=== PATIENT | female | born 1990 | race African-American/Black ===

== ENCOUNTER 2017-07-15 10:37 | Inpatient (IN) | payer MEDICARE ==
[~2017-07-15] VITALS: Ht 157.5 cm; Wt 57.2 kg
[~2017-07-15 10:37] MED LIST: ABILIFY5 MG PO; AMBIEN10 MG PO; BUTRANS1 EAC1 TP; CATAPRES-TTS 31 EA TD; CEFTIN250 MG PO; DIFLUCAN200 MG PO; DOXYCYCLINE HY100 MG PO; ERYTHROMYCIN250 M1 PO; FLAGYL500 MG PO; HUMALOG100 UNIT/1 SQ; HUMALOG100 UNIT/3 SQ; HYDRALAZINE HCL25 MG PO; IMURAN50 MG PO; LABETALOL HCL100 MG PO; LANTUS 3ML100 UNITS/ SQ; LANTUS100 UNITS/ SQ; LEVAQUIN500 MG PO; LEVEMIR 3M100 UNITS/ SQ; LEVEMIR100 UNIT/1 SQ; LISINOPRIL-HCT1 EAC2 PO; LISINOPRIL10 MG PO; LISINOPRIL20 MG PO; NEURONTIN100 MG PO; NORCO 7.5-3251 EACH PO; NOVOLOG100 UNITS/ SQ; PANTOPRAZOLE SO40 MG PO; PENTASA500 MG PO; PREDNISONE10 MG PO; PROMETHAZINE HC25 M1 PO; PROTONIX20 MG; REGLAN5 MG; REMICADE100 MG/VIA; RISPERDAL1 MG PO; SEROQUEL XR400 MG PO; ULTRAM 50MG50 MG PO; WELLBUTRIN100 MG PO; XANAX0.25 MG PO; XANAX2 MG PO; Z.0.LISINOPRIL20 MG PO; Z.0.PROTONIX20 MG PO; ZOFRAN ODT4 MG PO; ZOFRAN4 MG PO; ZOLOFT50 MG PO; [UNRECOGNIZED DRUG - CODE] SQ; [UNRECOGNIZED DRUG - OTHER] PO
[2017-07-15] MEDS ORDERED: SODIUM CHLORIDE 0.9% 1000ML 1,000 ML IV STA (11:00)
[2017-07-15] MEDS ORDERED: PROMETHAZINE 12.5MG/ NACL 0.9% 12.5 MG/50 ML BAG IV ONE ×2 (11:00→17:45)
[2017-07-15] MEDS ORDERED: DIATRIZOATE MEGL/DIATRIZOA SOD 30 ML BTL PO ONE (11:28)
[2017-07-15] MEDS ORDERED: HYDROMORPHONE 1MG/1ML INJ IV STA ×2 (11:49→12:47)
[2017-07-15] MEDS ORDERED: HYDROMORPHONE 2MG/ML INJ IV ONE ×2 (12:10→17:45)
[2017-07-15 12:46] LABS: BASOPHILS % 0.2 % (0.0-1.0); EOSINOPHILS # (AUTO) 0.2 (0.0-0.4); EOSINOPHILS % 2.2 % (0.0-6.0); HEMATOCRIT 29.5 % (34.2-44.1); HEMOGLOBIN 9.2 g/dL (12.0-16.0); LYMPHOCYTES # (AUTO) 0.5 (1.0-3.2); LYMPHOCYTES % 5.2 % (18.0-39.1); MEAN CORPUSCULAR HEMOGLOBIN 27.8 pg (28-32); MEAN CORPUSCULAR HGB CONC 31.2 g/dL (31-35); MEAN CORPUSCULAR VOLUME 89.1 fL (81-99); MONOCYTES # (AUTO) 0.6 (0.2-0.8); MONOCYTES % 6.1 % (4.4-11.3); NEUTROPHILS # (AUTO) 8.8 (2.1-6.9); NEUTROPHILS % 85.4 % (38.7-80.0); PLATELET COUNT 219 x10e3/uL (140-360); RED BLOOD COUNT 3.31 x10e6/uL (3.6-5.1); RED CELL DISTRIBUTION WIDTH 16.3 % (11.7-14.4)
[2017-07-15 12:50] LABS: INR 0.85
[2017-07-15 12:51] LABS: PARTIAL THROMBOPLASTIN TIME 26.5 seconds (23.8-35.5)
[2017-07-15 13:00] LABS: ALANINE AMINOTRANSFERASE 17 IU/L (0-55); ALBUMIN 3.4 g/dL (3.5-5.0); ALBUMIN/GLOBULIN RATIO 0.8 (0.8-2.0); ALKALINE PHOSPHATASE 130 IU/L (40-150); AMYLASE 111 U/L (25-125); ANION GAP 18.6 mmol/L (8-16); BLOOD UREA NITROGEN 49 mg/dL (7-26); BUN/CREATININE RATIO 6 (6-25); CARBON DIOXIDE 28 mmol/L (22-29); CHLORIDE 96 mmol/L (98-107); CREATININE, SERUM 7.83 mg/dL (0.57-1.11); EST GLOMERULAR FILTRATION RATE 8 ML/MIN (60-); LIPASE 40 U/L (8-78); POTASSIUM 3.6 mmol/L (3.5-5.1); SODIUM 139 mmol/L (136-145)
[2017-07-15] MEDS ORDERED: PROMETHAZINE HCL (IM) 25 MG/ML VIAL IM ONE (13:00)
[2017-07-15] MEDS ORDERED: HYDROMORPHONE 2MG/ML INJ IM ONE (13:00)
[2017-07-15 13:09] LABS: GLUCOSE 53 mg/dL (74-118)
--- NOTE | 2017-07-15 14:54 | Diagnostic Imaging Report ---
PROCEDURE: CT ABDOMEN AND PELVIS WITHOUT CONTRAST TECHNIQUE: The abdomen and pelvis were scanned utilizing a multidetector helical scanner from the diaphragm to the lesser trochanter. No IV contrast was administered as per physician request. Coronal and sagittal multiplanar reformations were obtained. COMPARISON: None. INDICATIONS: NAUSEA, VOMITING, DIARRHEA FINDINGS: ABSENCE OF INTRAVENOUS CONTRAST DECREASES SENSITIVITY FOR DETECTION OF FOCAL LESIONS AND VASCULAR PATHOLOGY. Examination of the abdomen limited due to a paucity of mesenteric fat. LOWER THORAX: Normal. Partially visualized central venous catheter with the tip positioned within the right atrium. HEPATOBILIARY: No focal hepatic lesions. No biliary ductal dilatation. Cholecystectomy. SPLEEN: No splenomegaly. PANCREAS: No focal masses or ductal dilatation. ADRENALS: No adrenal nodules. 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 No hydronephrosis, stones, or solid mass lesions. PELVIC ORGANS/BLADDER: Unremarkable. PERITONEUM / RETROPERITONEUM: No free air or fluid. LYMPH NODES: No lymphadenopathy. VESSELS: Unremarkable. GI TRACT: No distention or wall thickening. Normal appendix. Moderate amount of retained feces in the transluminal evaluation of the colon. BONES AND SOFT TISSUES: Unremarkable. IMPRESSION: No acute abnormality of the abdomen and pelvis. Dictated by: Jovon Gomez M.D. on 07/15/2017 at 15:02 Electronically approved by: Jovon Gomez M.D. on 07/15/2017 at 15:02
[2017-07-15] MEDS ORDERED: DEXTROSE 50% SYRINGE 50 ML IV PRN (18:15)
[2017-07-15] MEDS ORDERED: HYDROMORPHONE 1MG/1ML INJ IV PRN (18:15)
[2017-07-15] MEDS ORDERED: CATAPRES-TTS 31 EA TD (19:00)
[2017-07-15] MEDS ORDERED: HYDROCODON-ACE1 EAC9 PO (19:00)
[2017-07-15] MEDS: PROMETHAZINE HCL (IM) 25 MG/ML VIAL IV SCH ×2 (19:55→22:20)
[2017-07-15 20:40] VITALS: BP 127/84
[2017-07-15 20:55] VITALS: BP 127/84
[2017-07-15] MEDS: INSULIN REGULAR, HUMAN 100 UNIT/1 ML 3ML VIAL SQ SCH (21:00)
[2017-07-15] MEDS: SODIUM CHLORIDE 0.9% 1000ML 1,000 ML IV SCH (21:30)
[2017-07-15] MEDS ORDERED: SODIUM CHLORIDE 0.9% 50ML 50 ML ONE (22:07)
[2017-07-15] MEDS: HYDROMORPHONE 2MG/ML INJ IV PRN (22:20)
[2017-07-16] VITALS (8 sets, daily range): BP systolic 108–150; BP diastolic 55–83
[2017-07-16] MEDS: PROMETHAZINE HCL (IM) 25 MG/ML VIAL IV SCH ×6 (00:36→18:15)
[2017-07-16] MEDS: HYDROMORPHONE 2MG/ML INJ IV PRN ×4 (02:06→17:26)
[2017-07-16] MEDS: SODIUM CHLORIDE 0.9% 1000ML 1,000 ML IV SCH ×2 (02:06→10:02)
[2017-07-16] MEDS: INSULIN REGULAR, HUMAN 100 UNIT/1 ML 3ML VIAL SQ SCH ×4 (07:30→21:00)
--- NOTE | 2017-07-16 16:53 | Consultation ---
DATE OF CONSULTATION: July 16, 2017 RENAL CONSULTATION HISTORY OF PRESENT ILLNESS: A 26-year-old female, underlying history of end-stage renal disease, scheduled for dialysis today. Underlying type 1 diabetes with end-organ damage. Underlying end-stage renal disease. Hypertension. History of Crohn's disease. Secondary hyperparathyroidism with anemia secondary to chronic kidney disease. Admitted with nausea and vomiting. Renal consulted for management of kidney failure. PHYSICAL EXAMINATION: GENERAL: She is awake, alert, lying supine. No apparent distress. VITALS: Blood pressure 130/60, pulse rate 80. HEAD AND NECK: Cornea clear. Oral mucosa dry. Neck veins flat. LUNGS: Bibasilar rales. HEART: S1/S2 audible. ABDOMEN: Otherwise soft, nontender. LOWER EXTREMITY EXAMINATION: No edema. IMPRESSION: End-stage renal disease. Stable volume status. Laboratory test shows white count is 10.2, hemoglobin 9.2. Potassium level last done was 3.6. ALLERGIES TO KETORALAC, TROMETHAMINE, METOCLOPRAMIDE, MORPHINE. CURRENT MEDICATIONS: Please see MAR for details but on promethazine p.r.n., hydromorphone. Apparently receiving normal saline, which I have stopped. Insulin has not been renewed. Underlying end-stage renal disease, multifactorial. Kidney problem. I will arrange for dialysis. Will renew erythropoietin, phosphorus binders. Fluid restriction. Potassium-restricted diet. Please see orders. Job#: [id number] EV
[2017-07-16 18:36] LABS: BILIRUBIN,URINE NEGATIVE (NEGATIVE); KETONES,URINE NEGATIVE (NEGATIVE); LEUKOCYTE ESTERASE ,URINE 1+ (NEGATIVE); NITRITE,URINE NEGATIVE (NEGATIVE); PROTEIN,URINE DIPSTICK 3+ (NEGATIVE); URINE UROBILINOGEN 0.2 mg/dL (0.2 - 1)
[2017-07-16 18:42] LABS: CLARITY,URINE CLEAR (CLEAR); COLOR,URINE YELLOW (YELLOW)
[2017-07-16 18:57] LABS: BACTERIA,URINE MANY /HPF; EPITHELIAL CELLS,URINE FEW /LPF
[2017-07-16] MEDS ORDERED: SODIUM CHLORIDE 0.9% 1000ML 1,000 ML IV PRN (20:00)
[2017-07-16] MEDS ORDERED: HEPARIN SOD (PORCINE) 1000 UNIT/ML SDV IV PRN (20:00)
[2017-07-17] VITALS: BP 125/58
[2017-07-17] MEDS ORDERED: SODIUM CHLORIDE 0.9% 50ML 50 ML ONE ×3 (00:25→03:45)
[2017-07-17] MEDS: HYDROMORPHONE 2MG/ML INJ IV PRN ×3 (00:36→08:01)
[2017-07-17] MEDS: PROMETHAZINE HCL (IM) 25 MG/ML VIAL IV SCH ×3 (03:20→10:15)
[2017-07-17] MEDS: INSULIN REGULAR, HUMAN 100 UNIT/1 ML 3ML VIAL SQ SCH ×2 (07:30→11:30)
[2017-07-17 08:00] VITALS: BP 132/87
[2017-07-17] MEDS ORDERED: MANNITOL 25% 12.5GM/50 ML VIAL IV PRN (08:15)
[2017-07-17] MEDS ORDERED: SODIUM CHLORIDE 0.9% 1000ML 2,000 ML IV PRN (08:15)
[2017-07-17] MEDS ORDERED: HEPARIN SOD (PORCINE) 1000 UNIT/ML SDV IV PRN (08:15)
[2017-07-17] MEDS ORDERED: SODIUM CHLORIDE 0.9% 250ML 500 ML IV PRN (08:15)
[2017-07-17] MEDS ORDERED: ALBUMIN HUMAN 12.5GM / 50ML IV PRN (08:15)
[2017-07-17] MEDS ORDERED: HYDRALAZINE HCL 25 MG TAB PO SCH (09:00)
[2017-07-17] MEDS ORDERED: PANTOPRAZOLE SO40 MG PO (10:50)
[2017-07-17] MEDS ORDERED: PROMETHAZINE12.5 M1 PO (10:52)
--- NOTE | 2017-07-17 13:15 | Discharge Summary ---
ADMIT DIAGNOSES 1. Intractable nausea and vomiting likely secondary to gastritis. 2. Dehydration. 3. End-stage renal disease. 4. Type 2 diabetes mellitus. 5. Coronary artery disease. DISCHARGE DIAGNOSES 1. Gastritis, resolved. 2. Dehydration, resolved. 3. Type 2 diabetes mellitus. 4. End-stage renal disease. 5. Hypertensive heart disease. 6. Crohn disease. 7. Anemia secondary to chronic kidney disease. HOSPITAL COURSE: This is a 26-year-old woman was admitted to [facility] with the diagnosis of intractable nausea and vomiting likely secondary to gastritis. Patient improved clinically with supportive care, which included intravenous fluids and promethazine. Patient was seen by her office support, namely Dr. Juan J Hsieh, because she has a history of Crohn disease. The patient was scheduled to undergo upper endoscopy, but it was canceled because she felt better and wanted to eat food. The patient also improved clinically with intravenous proton pump inhibitor. The patient's hospitalization was unremarkable. CONDITION ON DISCHARGE: Stable. DISCHARGE MEDICATIONS 1. Phenergan 12.5 mg 1 p.o. b.i.d. p.r.n. nausea and vomiting, 20 prescribed with 1 refill. 2. Protonix 40 mg q.a.m. 3. Abilify 5 mg daily. 4. Clonidine patch 0.3 mg strength once a week. 5. Hydralazine 100 mg t.i.d. 6. [place] 10 per 325 mg 1 every 6 hours p.r.n. pain. 7. Levemir insulin 25 units twice a day. 8. Humalog insulin 10 units subcutaneous t.i.d. with meals. 9. Zolpidem 10 mg at bedtime p.r.n. insomnia. FOLLOWUP INSTRUCTIONS: The patient was instructed to follow up with her primary care doctor, namely Dr. Maria Ines Westfall, who is located in [place], [place], within the next 7-10 days. CHANEL DEVINE MD Job#: [id number] RI cc:MD JUAN J TOLENTINO MD
== END 2017-07-17 12:00 | disposition home or self-care (01) | DRG 391 ==
LOC: ER 10:37 → ERHOLD 19:04 → MED/SURG2 20:07
PROC: 5A1D70Z Performance of Urinary Filtration, Intermittent, Less than 6 Hours Per Day (ICD-10-PCS; principal; 2017-07-16)
DX: K29.00 Acute gastritis without bleeding (principal); N18.6 End stage renal disease; E11.22 Type 2 diabetes mellitus with diabetic chronic kidney disease; I12.0 Hypertensive chronic kidney disease with stage 5 chronic kidney disease or end stage renal disease; N25.81 Secondary hyperparathyroidism of renal origin; K50.90 Crohn's disease, unspecified, without complications; E86.0 Dehydration; E21.3 Hyperparathyroidism, unspecified; F31.9 Bipolar disorder, unspecified; Z99.2 Dependence on renal dialysis; D72.810 Lymphocytopenia; Z79.4 Long term (current) use of insulin
CPT/HCPCS: 36415; 74176; 80053; 81001; 82150; 82948; 83690; 84702; 85025; 85610; 85730; 87086; 87340; 90962; 93005; 99284; J1644; J2550; J7030

== ENCOUNTER 2017-08-01 06:34 | Emergency (ER) | payer MEDICARE ==
[~2017-08-01] VITALS: Ht 157.5 cm; Wt 57.2 kg
[~2017-08-01 06:34] MED LIST changes: +HYDROCODON-ACE1 EAC9 PO; +PROMETHAZINE12.5 M1 PO
[2017-08-01] MEDS ORDERED: HYDROMORPHONE 2MG/ML INJ IV ONE (08:00)
[2017-08-01] MEDS ORDERED: HALOPERIDOL LACTATE 5 MG/ML VIAL IV ONE (08:00)
[2017-08-01 08:20] LABS: BASOPHILS # (AUTO) 0.1 (0.0-0.1); BASOPHILS % 0.6 % (0.0-1.0); EOSINOPHILS # (AUTO) 0.3 (0.0-0.4); EOSINOPHILS % 4.1 % (0.0-6.0); HEMATOCRIT 28.1 % (34.2-44.1); HEMOGLOBIN 8.9 g/dL (12.0-16.0); LYMPHOCYTES # (AUTO) 2.6 (1.0-3.2); LYMPHOCYTES % 31.7 % (18.0-39.1); MEAN CORPUSCULAR HEMOGLOBIN 28.6 pg (28-32); MEAN CORPUSCULAR HGB CONC 31.7 g/dL (31-35); MEAN CORPUSCULAR VOLUME 90.4 fL (81-99); MONOCYTES # (AUTO) 0.5 (0.2-0.8); NEUTROPHILS # (AUTO) 4.6 (2.1-6.9); PLATELET COUNT 264 x10e3/uL (140-360); RED BLOOD COUNT 3.11 x10e6/uL (3.6-5.1); RED CELL DISTRIBUTION WIDTH 17.2 % (11.7-14.4)
[2017-08-01 10:10] LABS: ALBUMIN 3.5 g/dL (3.5-5.0); ALBUMIN/GLOBULIN RATIO 0.9 (0.8-2.0); ANION GAP 18.7 mmol/L (8-16); CALCIUM 7.9 mg/dL (8.4-10.2); POTASSIUM 3.7 mmol/L (3.5-5.1)
--- NOTE | 2017-08-01 10:17 | Diagnostic Imaging Report ---
EXAM: CHEST SINGLE (PORTABLE) DATE: 08/01/2017 7:48 AM INDICATION: Short of breath COMPARISON: None FINDINGS: Left IJ dialysis catheter present with tip overlying right atrium. Heart not enlarged. There is no pneumothorax or focal consolidation. IMPRESSION: No acute findings. Signed by: Dr. Florin Boucher MD on 08/01/2017 10:10 AM
[2017-08-01 11:15] VITALS: BP 164/107
== END 2017-08-01 11:30 | disposition home or self-care (01) ==
LOC: ER 06:34
DX: R10.13 Epigastric pain (principal); E10.43 Type 1 diabetes mellitus with diabetic autonomic (poly)neuropathy; K31.84 Gastroparesis; Z79.4 Long term (current) use of insulin; I12.0 Hypertensive chronic kidney disease with stage 5 chronic kidney disease or end stage renal disease; N18.6 End stage renal disease
CPT/HCPCS: 36415; 71010; 80053; 82150; 82948; 83690; 83735; 84702; 85025; 99284; J1170; J1630

== ENCOUNTER 2017-09-19 07:05 | Inpatient (IN) | payer MEDICARE ==
[~2017-09-19] VITALS: Ht 157.5 cm; Wt 53.7 kg
--- OUTSIDE RECORDS SUMMARY | 2017-09-19 07:08 | XMS REPORT | Clinical Summary ---
Author Author [employer] Address Unknown Phone Unavailable Care Team Providers Care Pc Maintenance Technician Name Role Phone Asked, Pcp PCP Unavailable Allergies Active Allergy Reactions Severity Noted Date Comments Hydromorphone Other (See Comments) 05/05/2017 Extreme drug seeking behavior. Admission >20+ at multiple hospitals in area asking for drug by name. Metronidazole GI Intolerance 01/16/2016 Lisinopril Other (See Comments) 01/16/2016 Kidney shutdown Morphine GI Intolerance 01/16/2016 Metoclopramide Hcl Other (See Comments) 01/16/2016 Stroke like symptom according to pt Ketorolac Itching 01/16/2016 Tizanidine Other (See Comments) 01/16/2016 numbness Ondansetron GI Intolerance 01/16/2016 Current Medications Prescription Sig. Disp. Refills Start End Date Status Date insulin lispro (HumaLOG) Inject 10 Units under the Active 100 unit/mL injection skin 3 (three) times a day before meals. hydrALAZINE (APRESOLINE) Take 100 mg by mouth 3 04/30/20 Active 25 MG tablet (three) times a day. 17 clonIDINE (CATAPRES-TTS) Place 1 patch on the skin Active 0.3 mg/24 hr once a week. Every insulin detemir (LEVEMIR) Inject 30 Units under the Active 100 unit/mL injection skin 2 (two) times a day. INSULIN DETEMIR SUBQ Inject 20 Units under the 04/07/20 Discontin skin every 12 (twelve) 17 ued hours. labetalol (NORMODYNE) 200 Take 400 mg by mouth 02/01/20 Discontin MG tablet every 8 (eight) hours. 17 ued NIFEDIPINE ORAL Take 60 mg by mouth 2 04/07/20 Discontin (two) times a day. 17 ued Extended release sodium bicarbonate 648 MG Take 650 mg by mouth 2 02/01/20 Discontin tablet (two) times a day. 17 ued vancomycin (VANCOCIN) Infuse 1,000 mg into a 02/01/20 Discontin 1,000 mg injection venous catheter every 17 ued other day. ALPRAZolam (XANAX) 0.5 MG Take 0.5 mg by mouth 06/22/20 Discontin tablet nightly as needed for 17 ued anxiety. clonIDINE HCl (CATAPRES) Take 0.3 mg by mouth once 05/02/20 Discontin 0.3 MG tablet a week. 17 ued ARIPiprazole (ABILIFY) 5 Take 5 mg by mouth daily. 06/22/20 Discontin MG tablet 17 ued zolpidem (AMBIEN) 5 MG Take 10 mg by mouth 04/30/20 06/22/20 Discontin tablet nightly as needed for 17 17 ued sleep. promethazine (PHENERGAN) Take 25 mg by mouth every 06/22/20 Discontin 25 MG tablet 6 (six) hours as needed 17 ued for nausea or vomiting. labetalol (NORMODYNE) 300 Take 1 tablet (300 mg 90 tablet 0 02/01/20 02/14/20 Discontin MG tablet total) by mouth every 8 17 17 ued (eight) hours for 30 days. atorvastatin (LIPITOR) 40 Take 1 tablet (40 mg 30 tablet 0 02/01/20 02/14/20 Discontin MG tablet total) by mouth nightly 17 17 ued for 30 days. losartan (COZAAR) 100 MG Take 1 tablet (100 mg 30 tablet 0 02/01/20 02/14/20 Discontin tablet total) by mouth daily for 17 17 ued 30 days. aspirin 81 mg chewable Chew 1 tablet (81 mg 30 tablet 0 02/01/20 Discontin tablet total) daily for 30 days. 17 17 ued sodium bicarbonate 650 mg Take 1 tablet (650 mg 60 tablet 0 02/01/20 02/14/20 Discontin tablet total) by mouth 2 (two) 17 17 ued times a day for 30 days. insulin GLARGINE (LANTUS) Inject 20 Units under the 03/31/20 Discontin 100 unit/mL injection skin 2 (two) times a day. 17 ued (vial) labetalol (NORMODYNE) 300 Take 1 tablet (300 mg 60 tablet 0 04/07/20 05/02/20 Discontin MG tablet total) by mouth 2 (two) 17 17 ued times a day for 30 days. NIFEdipine XL (PROCARDIA Take 1 tablet (30 mg 30 tablet 0 04/07/20 05/06/20 Discontin XL) 30 MG 24 hr tablet total) by mouth daily for 17 17 ued 30 days. insulin GLARGINE (LANTUS) Inject 10 Units under the 6 mL 0 04/07/20 05/02/20 Discontin 100 unit/mL injection skin 2 (two) times a day 17 17 ued (vial) before meals for 30 days. metoclopramide (REGLAN) 5 Take 1 tablet (5 mg 30 tablet 0 04/07/20 05/02/20 Discontin MG tablet total) by mouth daily 17 17 ued before lunch for 30 days. atorvastatin (LIPITOR) 40 Take 1 tablet (40 mg 30 tablet 0 04/21/20 05/02/20 Discontin MG tablet total) by mouth nightly 17 17 ued for 30 days. B complex-vitamin C-folic Take 1 tablet by mouth 30 tablet 0 04/21/20 05/02/20 Discontin acid (FOLBEE PLUS 5 MG) 5 daily for 30 days. 17 17 ued mg tablet per tablet thiamine 50 MG tablet Take 1 tablet (50 mg 30 tablet 0 04/21/20 Discontin total) by mouth daily for 17 17 ued 30 days. insulin detemir (LEVEMIR) Inject 25 Units under the 04/30/20 05/06/20 Discontin 100 unit/mL injection skin 2 (two) times a day. 17 17 ued labetalol (NORMODYNE) 200 Take 2 tablets (400 mg 120 tablet 0 06/05/20 MG tablet total) by mouth 2 (two) 17 17 times a day for 30 days. NIFEdipine XL (PROCARDIA Take 1 tablet (60 mg 60 tablet 0 05/06/20 06/05/20 XL) 60 MG 24 hr tablet total) by mouth 2 (two) 17 17 times a day for 30 days. insulin GLARGINE (LANTUS) Inject 30 Units under the 9 mL 0 05/06/20 06/05/20 100 unit/mL injection skin daily for 30 days. 17 17 (vial) metoclopramide (REGLAN) 5 Take 1 tablet (5 mg 30 tablet 0 05/06/20 06/05/20 MG tablet total) by mouth daily for 17 17 30 days. acetaminophen-codeine Take 1 tablet by mouth 30 tablet 0 05/06/20 (TYLENOL WITH CODEINE #3) every 6 (six) hours as 17 17 300-30 mg per tablet needed for moderate pain for up to 10 days. labetalol (NORMODYNE) 200 Take 1 tablet (200 mg 180 tablet 1 06/24/20 07/24/19 MG tablet total) by mouth 2 (two) 17 18 times a day for 30 days. methylPREDNISolone follow package directions 21 tablet 0 08/26/19 (MEDROL DOSEPAK) 4 mg 18 18 tablet Active Problems Problem Noted Date Hyperglycemia 06/22/2017 High anion gap metabolic acidosis 06/22/2017 Acute headache 04/20/2017 Diabetic gastroparesis 02/23/2017 ESRD (end stage renal disease) 02/13/2017 Hyperemesis gravidarum with electrolyte imbalance 12/03/2016 Hypertensive emergency 12/02/2016 Chronic kidney disease (CKD) 12/02/2016 Hypertensive urgency 11/30/2016 Type 1 diabetes mellitus with hyperosmolarity without nonketotic 12/05/2015 hyperglycemic hyperosmolar coma Abdominal pain 03/13/2015 Diabetes mellitus with ketoacidosis 12/18/2014 Crohn disease 09/17/2014 Gastroparesis 09/17/2014 Essential hypertension 05/12/2008 Overview: Overview: ICD-10 Resolved Problems Problem Noted Date Resolved Date Generalized weakness 01/30/2017 01/31/2017 Encounters Date Type Specialty Care Team Description 08/26/2017 Emergency Emergency Medicine Debbie Lundberg DO Allergic reaction, initial encounter (Primary Dx) 06/23/2017 Procedure Pass General Surgery 06/22/2017 [facility] General Internal Medicine Itzel Appiah, Hyperglycemia (Primary - Encounter MD Dx) 06/24/2017 Marcia Westfall MD 06/15/2017 Emergency Emergency Medicine Debbie Lundberg DO Hyperglycemia (Primary Dx) 06/10/2017 Emergency Emergency Medicine Debbie Lundberg DO Gastroparesis (Primary Dx) 05/12/2017 Emergency Emergency Medicine Randell Iniguez Left lower quadrant pain MD Jazmin (Primary Dx); Contusion of back, unspecified laterality, initial encounter; Strain of neck muscle, initial encounter 05/01/2017 [facility] Internal Medicine Yesenia Rodriguez Hypertensive emergency - Encounter DO Nena (Primary Dx); 05/06/2017 Marcia Westfall ESRD (end stage renal MD Abdon disease); Intractable vomiting with nausea, unspecified vomiting type 04/20/2017 [facility] Intensive Care Airam Talbert MD Hypertensive emergency - Encounter Marcia Westfall (Primary Dx); 04/21/2017 MD [place] Hyperglycemia due to type 1 diabetes mellitus; ESRD (end stage renal disease) on dialysis; Acute nonintractable headache, unspecified headache type; Generalized abdominal pain; Hypertensive encephalopathy; Vision loss, bilateral; Acute intractable headache, unspecified headache type 04/20/2017 Procedure Pass Intensive Care 04/20/2017 Procedure Pass Intensive Care 04/20/2017 Procedure Pass Intensive Care 04/20/2017 Procedure Pass Intensive Care 03/30/2017 [facility] General Internal Medicine Andrea Peralta MD Hypertensive emergency - Encounter Marcia Westfall (Primary Dx); 04/07/2017 MD Abdon ESRD (end stage renal disease) on dialysis; Intractable vomiting with nausea, unspecified vomiting type; Generalized abdominal pain; Type 1 diabetes mellitus with diabetic autonomic neuropathy; Hypertensive urgency; Type 1 diabetes mellitus with ketoacidosis without coma 02/13/2017 [facility] Intensive Care Yesenia Rodriguez Hypertensive emergency - Encounter DO Nena (Primary Dx); 02/14/2017 Marcia Westfall Tachycardia; MD [place]don Intractable vomiting with nausea, unspecified vomiting type; Generalized abdominal pain; ESRD (end stage renal disease) on dialysis; Hypertensive urgency; Type 1 diabetes mellitus with ketoacidosis without coma 01/30/2017 [facility] Christine Guillaume Generalized weakness - (Primary Dx); 01/31/2017 Marcia Westfall Hypertension, MD Abdon uncontrolled; Aphasia; Bilateral leg pain 01/30/2017 Emergency Emergency Medicine 01/30/2017 Procedure Pass General Internal Medicine 01/30/2017 Procedure Pass General Internal Medicine 01/30/2017 Procedure Pass General Internal Medicine 01/30/2017 Procedure Pass General Internal Medicine 12/07/2016 Orders Only Intensive Care Butch Oreilly NP-C 11/27/2016 [facility] General Internal Medicine Andrea Peralta MD Hypertensive urgency - Encounter Francisco Cortez MD (Primary Dx) 12/09/2016 11/07/2016 [facility] General Internal Medicine Haider Woody MD - Encounter Mariam Ann MD 11/19/2016 Obi Treviño MD 11/07/2016 Orders Only Haider Woody MD after 09/18/2016 Immunizations Name Dates Previously Given Next Due FLUCELVAX QUAD PF (0.5mL 04/07/2017 syringe) Family History Medical History Relation Name Comments Diabetes Father Hypertension Father Kidney disease Father Diabetes Mother Hypertension Mother Kidney disease Mother Relation Name Status Comments Father Mother Social History Tobacco Use Types Packs/Day Years Used Date Never Smoker Smokeless Tobacco: Never Used Alcohol Use Drinks/Week oz/Week Comments No Sex Assigned at Date Recorded Not on file Last Filed Vital Signs Vital Sign Reading Time Taken Blood Pressure 182/90 08/26/2017 10:54 AM [employer] Pulse 76 08/26/2017 10:04 AM [employer] Temperature 35.8 C (96.5 F) 08/26/2017 10:04 AM [employer] Respiratory Rate 16 08/26/2017 10:04 AM [employer] Oxygen Saturation 98% 08/26/2017 10:04 AM [employer] Inhaled Oxygen - - Concentration Weight 58.8 kg (129 lb 10.1 oz) 06/22/2017 10:47 PM [employer] Height 157.5 cm (5' 2") 06/22/2017 10:47 PM [employer] Body Mass Index 23.71 06/22/2017 10:47 PM [employer] Plan of Treatment Health Maintenance Due Date Last Done Comments FOOT EXAM 2001 OPHTHALMOLOGY EXAM 2001 URINE MICROALBUMIN 2001 PAP SMEAR 2012 INFLUENZA VACCINE Completed 04/07/2017 Procedures Procedure Name Priority Date/Time Associated Diagnosis Comments [facility], E/M Routine 06/26/2017 Results for this 30-74 MINUTES 1:11 PM [employer] procedure are in the results section. HEMODIALYSIS Routine 05/06/2017 7:54 AM CDT AR CRITICAL CARE, E/M Routine 05/01/2017 Results for this 30-74 MINUTES 1:15 PM CDT procedure are in the results section. GENERAL Routine 04/20/2017 Hypertensive emergency Results for this 5:35 PM CDT procedure are in the results section. HEMODIALYSIS Routine 04/20/2017 10:41 AM CDT AR CRITICAL CARE, E/M Routine 04/20/2017 Results for this 30-74 MINUTES 4:52 AM CDT procedure are in the results section. HEMODIALYSIS Routine 04/03/2017 8:30 AM CDT GENERAL Routine 04/01/2017 Hypertensive emergency Results for this 8:33 PM CDT procedure are in the results section. HEMODIALYSIS Routine 04/01/2017 1:41 PM CDT AR CRITICAL CARE, E/M Routine 03/30/2017 Results for this 30-74 MINUTES 6:31 PM CDT procedure are in the results section. AR CRITICAL CARE, E/M Routine 02/13/2017 Results for this 30-74 MINUTES 2:51 PM CDT procedure are in the results section. HEMODIALYSIS Routine 02/13/2017 2:30 PM CDT ECHOCARDIOGRAM 2D Routine 01/31/2017 Results for this COMPLETE W MMODE SPECTRAL 11:05 AM CDT procedure are in the COLOR DOPPLER ([id number]) results section. HEMODIALYSIS Routine 01/30/2017 11:56 AM CDT GENERAL Routine 12/03/2016 Hypertensive urgency Results for this 3:43 PM CDT procedure are in the results section. after 09/18/2016 Results * ECG ED Preliminary Interpretation - NOT AN ORDER (06/26/2017 1:11 PM) Only the most recent of 6 results within the time period is included. Narrative Itzel Appiah MD 06/26/20171:11 PM ECG ED Preliminary Interpretation - Not an Order Performed by: ITZEL APPIAH Authorized by: ITZEL APPIAH ECG reviewed by ED Physician in the absence of a roll weigher: yes Interpretation: Interpretation: non-specific Rate: ECG rate:90 ECG rate assessment: normal Rhythm: Rhythm: sinus rhythm Ectopy: Ectopy: none QRS: QRS axis:Normal QRS intervals:Normal Conduction: Conduction: normal ST segments: ST segments:Normal T waves: T waves: normal Q waves: Q waves:AVL * CRITICAL CARE (06/26/2017 1:11 PM) Narrative Itzel Appiah MD 06/26/20171:11 PM Critical Care Performed by: ITZEL APPIAH Authorized by: ITZEL APPIAH Critical care provider statement: Critical care time (minutes):40 Critical care was necessary to treat or prevent imminent or life-threatening deterioration of the following conditions:Endocrine crisis Critical care was time spent personally by me on the following activities:Development of treatment plan with patient or surrogate, discussions with consultants, evaluation of patient's response to treatment, examination of patient, obtaining history from patient or surrogate, ordering and performing treatments and interventions, ordering and review of laboratory studies, ordering and review of radiographic studies, pulse oximetry, re-evaluation of patient's condition and review of old charts * POC glucose (06/24/2017 8:33 PM) Only the most recent of 282 results within the time period is included. Component Value Ref Range POC glucose 273 (H) 65 - 99 mg/dL Comment: RN Notified Meter ID: [id number] Conductor Symphonic Orchestra: Gregorio Bustos Specimen Performing Laboratory [facility] DEPARTMENT OF PATHOLOGY AND GENOMIC MEDICINE [address] [place] [address] * Hepatitis B surface antibody (06/24/2017 8:14 AM) Only the most recent of 2 results within the time period is included. Component Value Ref Range Hepatitis B surface Ab Reactive (A) Non-reactive Specimen Performing Laboratory Blood [facility] DEPARTMENT OF PATHOLOGY AND GENOMIC MEDICINE [address] [place] [address] * Hepatitis B surface antigen (06/24/2017 8:14 AM) Only the most recent of 4 results within the time period is included. Component Value Ref Range Hepatitis B surface Ag Non-reactive Non-reactive Specimen Performing Laboratory Blood [facility] DEPARTMENT OF PATHOLOGY AND GENOMIC MEDICINE [address] [place] [address] * Estimated GFR (06/24/2017 3:41 AM) Only the most recent of 76 results within the time period is included. Component Value Ref Range GFR Non Af Amer 5 (A) mL/min/1.73 m2 GFR Af Amer 6 (A) mL/min/1.73 m2 Comment: Chronic kidney disease: <60 mL/min/1.73m2 Kidney failure: <15 mL/min/1.73m2 The estimated GFR is calculated from the IDMS-traceable Modification of Diet in Renal Disease Equation. The accuracy of the calculation is poor when the creatinine is normal. Calculated values >90 mL/min/1.73m2 are not reported. This equation has not been validated in children (<18 years), women, the elderly (>70 years), or ethnic groups other than Caucasians and Americans. Specimen Performing Laboratory Plasma specimen [facility] DEPARTMENT OF PATHOLOGY AND [facility] [address] [place] [id number] * Prothrombin time with INR (06/24/2017 3:41 AM) Only the most recent of 13 results within the time period is included. Component Value Ref Range Prothrombin time 13.6 12.0 - 15.0 sec INR 1.0 Comment: The International Normalized Ratio (INR) is a therapeutic monitoring tool for patients who are stable on oral anticoagulant therapy. An INR of 2.0-3.0 is suggested for deep vein thrombosis/pulmonary embolism. Specimen Performing Laboratory Blood [facility] PATHOLOGY AND [address] [address] * CBC with platelet and differential (06/24/2017 3:41 AM) Only the most recent of 43 results within the time period is included. Component Value Ref Range WBC 5.6 4.5 - 11.0 k/uL RBC 2.97 (L) 4.20 - 5.50 m/uL HGB 8.4 (L) 12.0 - 16.0 g/dL HCT 25.4 (L) 37.0 - 47.0 % MCV 85.5 82.0 - 100.0 fL MCH 28.3 27.0 - 34.0 pg MCHC 33.1 31.0 - 37.0 g/dL RDW - SD 46.7 37.0 - 55.0 fL MPV 10.4 6.9 - 11.0 fL Platelet count 197 150 - 400 K/uL Nucleated RBC 0.00 /100 WBC Neutrophils 65.3 39.0 - 69.0 % Lymphocytes 22.1 (L) 25.0 - 45.0 % Monocytes 7.7 0.0 - 10.0 % Eosinophils 3.9 0.0 - 5.0 % Basophils 0.5 0.0 - 1.0 % Immature granulocytes 0.5 0.0 - 1.0 % Specimen Performing Laboratory Blood [facility] OF PATHOLOGY AND [address] [address] * Magnesium level (06/24/2017 3:41 AM) Only the most recent of 31 results within the time period is included. Component Value Ref Range Magnesium 2.1 1.6 - 2.6 mg/dL Specimen Performing Laboratory Plasma specimen [facility] DEPARTMENT OF PATHOLOGY AND [address] [address] * Basic metabolic panel (06/24/2017 3:41 AM) Only the most recent of 56 results within the time period is included. Component Value Ref Range Sodium 137 135 - 148 mEq/L Potassium 4.9 3.5 - 5.0 mEq/L Chloride 102 98 - 112 mEq/L CO2 18 (L) 24 - 31 mEq/L Anion gap 17 (H) 7 - 15 mEq/L Comment: Starting from October , anion gap calculation no longer incorporates potassium. Please note the change. BUN 72 (H) 6 - 20 mg/dL Creatinine 10.3 (H) 0.5 - 0.9 mg/dL Glucose 74 65 - 99 mg/dL Calcium 7.6 (L) 8.3 - 10.2 mg/dL Specimen Performing Laboratory Plasma specimen [facility] DEPARTMENT OF PATHOLOGY AND [facility] MEDICINE [address] [place] [id number] * IR Tunneled Dialysis Catheter Replacement/Exchange (06/23/2017 6:26 PM) Specimen Performing Laboratory [facility] [address] [place] [address] Narrative Performing Radiologist Víctor Patrick MD Assistants None. Anesthesia Type Moderate sedation was administered by the procedure nurse and monitored by the procedure physician for a total [id number] sedation time of 14 minutes. Lidocaine 1% and lidocaine 1% with epinephrine were used for local anesthetic. Indication Renal failure. Central venous access required for hemodialysis. Existing left internal jugular approach tunneled is not functioning. Procedure Tunneled hemodialysis catheter replacement Technique Written informed consent was obtained prior to the procedure. All elements of maximal sterile barrier technique were followed. The patient's left neck , existing catheter and upper chest were sterilely prepared and draped in the routine manner. Lidocaine 1% was used for local anesthetic. A motors assembler image was obtained, demonstrating tip of the catheter was positioned in the azygos vein. 2 stiff glide wires were advanced through the catheter into the IVC, and the catheter was repositioned, with tip in the right atrium. All ports were tested and demonstrate adequate flow. The catheter was packed with heparin and sutured to the skin. The patient tolerated the procedure well. Radiation Dose Ka,r=13.7 mGy Complications None. Specimens Removed None. Estimated Blood Loss Less than 2 mL. Blood/Blood Products Administered None. Grafts/Implants As described in the above report. Impression: Successful fluoroscopic-guided repositioning of a 32 cm long tip to cuff tunneled hemodialysis catheter via the left internal jugular vein. The catheter tip lies in the right atrium and is ready for use. [facility]-[id number] Procedure Note [facility], Radiology Results Incoming - 06/23/2017 6:35 PM [employer] Performing Radiologist Víctor Patrick MD Assistants None. Anesthesia Type Moderate sedation was administered by the procedure nurse and monitored by the procedure physician for a total [id number]-huut sedation time of 14 minutes. Lidocaine 1% and lidocaine 1% with epinephrine were used for local anesthetic. Indication Renal failure. Central venous access required for hemodialysis. Existing left internal jugular approach tunneled is not functioning. Procedure Tunneled hemodialysis catheter replacement Technique Written informed consent was obtained prior to the procedure. All elements of maximal sterile barrier technique were followed. The patient's left neck , existing catheter and upper chest were sterilely prepared and draped in the routine manner. Lidocaine 1% was used for local anesthetic. A motors assembler image was obtained, demonstrating tip of the catheter was positioned in the azygos vein. 2 stiff glide wires were advanced through the catheter into the IVC, and the catheter was repositioned, with tip in the right atrium. All ports were tested and demonstrate adequate flow. The catheter was packed with heparin and sutured to the skin. The patient tolerated the procedure well. Radiation Dose Ka,r=13.7 mGy Complications None. Specimens Removed None. Estimated Blood Loss Less than 2 mL. Blood/Blood Products Administered None. Grafts/Implants As described in the above report. Impression: Successful fluoroscopic-guided repositioning of a 32 cm long tip to cuff tunneled hemodialysis catheter via the left internal jugular vein. The catheter tip lies in the right atrium and is ready for use. [facility]-[id number] * Blood culture, aerobic & anaerobic (06/23/2017 6:10 AM) Only the most recent of 12 results within the time period is included. Component Value Ref Range Blood culture isolate No growth after 5 days of incubation. Comment: Specimen Information Specimen Source: Blood Specimen Site: Unspecified Specimen Performing Laboratory Blood [facility] DEPARTMENT OF PATHOLOGY AND GENOMIC MEDICINE [address] [place] [address] * Phosphorus level (06/23/2017 3:50 AM) Only the most recent of 12 results within the time period is included. Component Value Ref Range Phosphorus 7.6 (H) 2.4 - 4.5 mg/dL Specimen Performing Laboratory Plasma specimen [facility] DEPARTMENT OF PATHOLOGY AND [address] [address] * Osmolality, serum (06/23/2017 3:50 AM) Only the most recent of 2 results within the time period is included. Component Value Ref Range Osmolality 307 (H) 275 - 295 mOsm/kg Specimen Performing Laboratory Blood [facility] PATHOLOGY [address] [place] [address] * Ionized calcium (06/23/2017 3:50 AM) Only the most recent of 24 results within the time period is included. Component Value Ref Range pH 7.28 Ionized calcium 1.02 (L) 1.11 - 1.32 mmol/L Specimen Performing Laboratory Plasma specimen [facility] DEPARTMENT OF PATHOLOGY AND [address] [place] [address] * Lactic acid level (06/22/2017 8:40 PM) Only the most recent of 7 results within the time period is included. Component Value Ref Range Lactic acid 2.5 (H) 0.5 - 2.2 mmol/L Specimen Performing Laboratory Plasma specimen [facility] PATHOLOGY AND [address] [place] [address] * Arterial blood gas (06/22/2017 7:41 PM) Only the most recent of 3 results within the time period is included. Component Value Ref Range pH, arterial 7.33 (L) 7.35 - 7.45 pCO2, arterial 33 (L) 35 - 45 mmHg pO2, arterial 121 (H) 80 - 90 mmHg Bicarbonate, arterial 16.5 (L) 21.0 - 28.0 mmol/L Base excess, arterial -8 (L) -2 - 2 mEq/L O2 saturation, arterial 98 95 - 100 % Specimen Performing Laboratory Blood [facility] PATHOLOGY AND [address] [place] [address] * Beta hydroxybutyrate (06/22/2017 6:19 PM) Only the most recent of 9 results within the time period is included. Component Value Ref Range Beta hydroxybutyrate 0.08 0.02 - 0.27 mmol/L Specimen Performing Laboratory Blood [facility] DEPARTMENT OF PATHOLOGY AND GENOMIC MEDICINE [address] [place] [id number] * Bedside glucose (06/22/2017 6:19 PM) Component Value Ref Range POC glucose HI Specimen Performing Laboratory Blood * Troponin (06/22/2017 5:47 PM) Only the most recent of 8 results within the time period is included. Component Value Ref Range Troponin <0.30 0.00 - 0.30 ng/mL Comment: 0.11 - 1.49 ng/ml May indicate increased risk of acute coronary syndrome. >=1.5 ng/ml Consistent with acute myocardial infarction. The diagnostic value of a single normal or non-diagnostic result is questionable. Serial samples at 2-6 hour intervals are required to rule out acute myocardial injury. Specimen Performing Laboratory Plasma specimen [facility] DEPARTMENT OF PATHOLOGY AND GENOMIC MEDICINE [address] [place] [id number] * Hemoglobin A1c (06/22/2017 5:47 PM) Only the most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 COMPARISON:Concurrent brain MRI on 04/20/2017. TECHNIQUE: Head MRV using 2D bixl-mu-hwlslh technique with multiplanar MIP reconstruction. FINDINGS: The proximal left transverse sinus is not well-visualized, probably hypoplastic but cannot exclude thrombus. There is normal flow related signal within the distal left transverse sinus, sigmoid sinus, and internal jugular vein. The right transverse-sigmoid sinus-internal jugular vein complex is dominant with normal flow signal. There is normal flow signal with no significant stenosis or filling defect within bilateral internal cerebral veins, basal veins of Ivette, vein of Fernie, straight sinus, superior sagittal sinus. IMPRESSION: Poor visualization of proximal left transverse sinus, probably hypoplastic but cannot exclude thrombus. Recommend CTV for further evaluation. [facility]-[id number] Procedure Note Interface, Radiology Results Incoming - 04/20/2017 3:46 PM CDT EXAMINATION: MRI BRAIN VENOGRAM CLINICAL HISTORY: HEADACHE ACUTE SEVERE THUNDERCLAP WORST BRAN OF LIFE COMPARISON: Concurrent brain MRI on 04/20/2017. TECHNIQUE: Head MRV using 2D dxre-pi-jgstka technique with multiplanar MIP reconstruction. FINDINGS: The proximal left transverse sinus is not well-visualized, probably hypoplastic but cannot exclude thrombus. There is normal flow related signal within the distal left transverse sinus, sigmoid sinus, and internal jugular vein. The right transverse-sigmoid sinus-internal jugular vein complex is dominant with normal flow signal. There is normal flow signal with no significant stenosis or filling defect within bilateral internal cerebral veins, basal veins of Ivette, vein of Fernie, straight sinus, superior sagittal sinus. IMPRESSION: Poor visualization of proximal left transverse sinus, probably hypoplastic but cannot exclude thrombus. Recommend CTV for further evaluation. [facility]-[id number] * MRI Brain Wo Contrast (04/20/2017 3:00 PM) Only the most recent of 3 results within the time period is included. Specimen Performing Laboratory [facility] [address] [place] [address] Narrative EXAMINATION:MRI BRAIN WO CONTRAST CLINICAL HISTORY:HEADACHEACUTESEVERETHUNDERCLAPWORST BRAN OF LIFE COMPARISON:April 20, 2017 Findings: No intracranial hemorrhage, acute ischemia, extra-axial fluid collections or parenchymal mass lesions. No hydrocephalus. No suspicious focal bone marrow lesions. Major flow voids are maintained. IMPRESSION: No acute intracranial abnormalities or mass lesions. [facility]-[id number] Procedure Note Interface, Radiology Results Incoming - 04/20/2017 3:36 PM CDT EXAMINATION: MRI BRAIN WO CONTRAST CLINICAL HISTORY: HEADACHE ACUTE SEVERE THUNDERCLAP WORST BRAN OF LIFE COMPARISON: April 20, 2017 Findings: No intracranial hemorrhage, acute ischemia, extra-axial fluid collections or parenchymal mass lesions. No hydrocephalus. No suspicious focal bone marrow lesions. Major flow voids are maintained. IMPRESSION: No acute intracranial abnormalities or mass lesions. [facility]-[id number] * MRA Neck Wo Contrast (04/20/2017 3:00 PM) Only the most recent of 2 results within the time period is included. Specimen Performing Laboratory [facility] [address] [place] [address] Narrative EXAMINATION:MRA NECK WO CONTRAST CLINICAL HISTORY:HEADACHESAH SUSPECTEDNOT CONFIRMED COMPARISON:February 01, 2017 IMPRESSION: 3-D reconstructions are processed off-line. No narrowing by NASCET criteria of the cervical internal carotid arteries. No hemodynamically significant narrowing of the distal common carotid arteries or visualized extracranial vertebral arteries. [facility]-[id number] Procedure Note Interface, Radiology Results Incoming - 04/20/2017 3:44 PM CDT EXAMINATION: MRA NECK WO CONTRAST CLINICAL HISTORY: HEADACHE SAH SUSPECTED NOT CONFIRMED COMPARISON: February 01, 2017 IMPRESSION: 3-D reconstructions are processed off-line. No narrowing by NASCET criteria of the cervical internal carotid arteries. No hemodynamically significant narrowing of the distal common carotid arteries or visualized extracranial vertebral arteries. [facility]-[id number] * MRA Head Wo Contrast (04/20/2017 3:00 PM) Only the most recent of 2 results within the time period is included. Specimen Performing Laboratory [facility] [address] [place] [address] Narrative EXAMINATION:MRA HEAD WO CONTRAST CLINICAL HISTORY:HEADACHEACUTESEVERETHUNDERCLAPWORST BRAN OF LIFE COMPARISON:Concurrent brain MRI on 04/20/2017. TECHNIQUE: Head MRA using 3D kswh-ko-jkheoz technique with multiplanar MIP reconstruction were obtained. FINDINGS: There is normal flow signal with no significant stenosis or occlusion along bilateral intracranial ICAs, ACAs, and MCAs. The anterior communicating artery complex is unremarkable. There is normal flow signal with no significant stenosis or occlusion along bilateral vertebral arteries, basilar artery, cerebellar arteries, and product safety tester. The vertebral arteries are codominant. The posterior communicating arteries are unremarkable. There is no evidence of cerebral aneurysm in the proximal chitimacha of Paul within limits of MRA technique. IMPRESSION: Unremarkable head MRA with no significant stenosis or occlusion in the proximal chitimacha of Paul. [facility]-[id number] Procedure Note [facility], Radiology Results Incoming - 04/20/2017 3:37 PM CDT EXAMINATION: MRA HEAD WO CONTRAST CLINICAL HISTORY: HEADACHE ACUTE SEVERE THUNDERCLAP WORST BRAN OF LIFE COMPARISON: Concurrent brain MRI on 04/20/2017. TECHNIQUE: Head MRA using 3D ccum-li-tpiqha technique with multiplanar MIP reconstruction were obtained. FINDINGS: There is normal flow signal with no significant stenosis or occlusion along bilateral intracranial ICAs, ACAs, and MCAs. The anterior communicating artery complex is unremarkable. There is normal flow signal with no significant stenosis or occlusion along bilateral vertebral arteries, basilar artery, cerebellar arteries, and product safety tester. The vertebral arteries are codominant. The posterior communicating arteries are unremarkable. There is no evidence of cerebral aneurysm in the proximal chitimacha of Paul within limits of MRA technique. IMPRESSION: Unremarkable head MRA with no significant stenosis or occlusion in the proximal chitimacha of Paul. [facility]-[id number] * Syphilis treponemal IgG (04/20/2017 10:38 AM) Component Value Ref Range Syphilis treponemal IgG Non-reactiveComment: Non-reactive: No serological Non-reactive evidence of Syphilis infection Specimen Performing Laboratory Serum [facility] DEPARTMENT OF PATHOLOGY AND GENOMIC MEDICINE [address] [place] [address] * Rapid HIV 1 & 2 (04/20/2017 10:38 AM) Component Value Ref Range Rapid HIV 1 and 2 Non-Reactive Non-Reactive Specimen Performing Laboratory Blood [facility] DEPARTMENT OF PATHOLOGY AND GENOMIC MEDICINE [address] [place] [address] * Sedimentation rate (04/20/2017 10:38 AM) Only the most recent of 2 results within the time period is included. Component Value Ref Range Sedimentation rate 23 (H) 0 - 20 mm/hr Specimen Performing Laboratory Blood [facility] DEPARTMENT OF PATHOLOGY AND GENOMIC MEDICINE [address] [place] [address] * Thyroid stimulating hormone (04/20/2017 10:38 AM) Component Value Ref Range TSH 1.04 0.27 - 4.20 uIU/mL Specimen Performing Laboratory Blood [facility] DEPARTMENT OF PATHOLOGY AND GENOMIC MEDICINE [address] [place] [address] * Vitamin B12 level (04/20/2017 10:38 AM) Component Value Ref Range Vitamin B12 599 211 - 946 pg/mL Comment: Significant overlap exists between normal and deficiency states. However, most patients with deficiencies will have Serum B12 <200 pg/mL. Specimen Performing Laboratory Serum [facility] DEPARTMENT OF PATHOLOGY AND GENOMIC MEDICINE [address] [place] [address] * Lipid panel (04/20/2017 10:38 AM) Only the most recent of 2 results within the time period is included. Component Value Ref Range Cholesterol 225 (H) 0 - 199 mg/dL Triglycerides 169 (H) 0 - 149 mg/dL HDL cholesterol 36 (L) 40 - 99,999 mg/dL LDL cholesterol 160 (H) 0 - 99 mg/dL Lipid panel See below interpretation Comment: Total Cholesterol (mg/dL) <200 Desirable 200-239 Borderline-high >=240 High Triglycerides (mg/dL) <150 Normal 150-199 Borderline-high 200-499 High >=500 Very high HDL Cholesterol (mg/dL) <40 Low (male) <50 Low (female) LDL Cholesterol (mg/dL) <100 Optimal 100-129 Near or above optimal 130-159 Borderline-high 160-189 High >=190 Very high Risk Catergories that modify LDL goals. Risk Catergories LDL goal (mg/dL) CHD and CHD risk equivalent <100 (10-year risk >20%) Multiple (2+) risk factors <130 (10-year risk=<20%) 0-1 risk factors <160 (<10-year risk) Defining levels of lipids in metabolic syndrome Triglycerides >=150 mg/dL HDL Cholesterol Men <40 mg/dL Women <50 mg/dL Non-HDL cholesterol is a second target for therapy in persons with high triglycerides (>=200 mg/dL) Specimen Performing Laboratory Blood [facility] DEPARTMENT OF PATHOLOGY AND GENOMIC MEDICINE [address] [place] [address] * CT Head Wo Contrast (04/20/2017 8:59 AM) Only the most recent of 2 results within the time period is included. Specimen Performing Laboratory [facility] [address] [place] [address] Narrative EXAMINATION: CT HEAD WO CONTRAST CLINICAL HISTORY: CONFUSION DELERIUMALTERED LOCUNEXPLAINED COMPARISON:CT brain dated April 20, 2017 TECHNIQUE: Noncontrast enhanced images of the brain were obtained from the skull base to the vertex. Both soft tissue and bone reconstruction algorithms were performed.CT imaging was performed with iterative reconstruction technique and/or automated exposure control to reduce radiation dose. FINDINGS: The brain parenchyma has no acute lesion. The powell-white matter differentiation is preserved. No evidence of acute intra or extra-axial hemorrhage, mass, mass effect or acute territorial infarction. There is no acute hydrocephalus. Basal cisterns are patent. No significant change from prior exam. No acute soft tissue hematoma or laceration. There is a retention cyst in inferior right maxillary sinus. There is no fluid level. Mastoid air cells are clear. Calvarium is intact. IMPRESSION: No acute intracranial abnormality identified. [facility]-[id number] Procedure Note Interface, Radiology Results Incoming - 04/20/2017 9:06 AM CDT EXAMINATION: CT HEAD WO CONTRAST CLINICAL HISTORY: CONFUSION DELERIUM ALTERED LOC UNEXPLAINED COMPARISON: CT brain dated April 20, 2017 TECHNIQUE: Noncontrast enhanced images of the brain were obtained from the skull base to the vertex. Both soft tissue and bone reconstruction algorithms were performed. CT imaging was performed with iterative reconstruction technique and/or automated exposure control to reduce radiation dose. FINDINGS: The brain parenchyma has no acute lesion. The powell-white matter differentiation is preserved. No evidence of acute intra or extra-axial hemorrhage, mass, mass effect or acute territorial infarction. There is no acute hydrocephalus. Basal cisterns are patent. No significant change from prior exam. No acute soft tissue hematoma or laceration. There is a retention cyst in inferior right maxillary sinus. There is no fluid level. Mastoid air cells are clear. Calvarium is intact. IMPRESSION: No acute intracranial abnormality identified. [id number] * hCG qualitative, serum screen (04/20/2017 8:13 AM) Only the most recent of 4 results within the time period is included. Component Value Ref Range hCG qualitative, serum NegativeComment: Sensitivity of HCG test: 25 mIU/mL Specimen Performing Laboratory Blood [facility] DEPARTMENT OF PATHOLOGY AND GENOMIC MEDICINE [address] [place] [address] * CK-MB (04/20/2017 6:20 AM) Component Value Ref Range CK-MB 5.5 (H) 1.0 - 5.3 ng/mL Specimen Performing Laboratory Plasma specimen [facility] DEPARTMENT OF PATHOLOGY AND GENOMIC MEDICINE [address] [place] [address] * CRITICAL CARE (04/20/2017 4:52 AM) Narrative Airam Talbert MD 04/20/20174:52 AM Critical Care Performed by: AIRAM TALBERT Authorized by: AIRAM TALBERT Critical care provider statement: Critical care time (minutes):45 Critical care was necessary to treat or prevent imminent or life-threatening deterioration of the following conditions: hypertensive crisis, endocrine crisis, renal failure. Critical care was time spent personally by me on the following activities:Blood draw for specimens, development of treatment plan with patient or surrogate, discussions with consultants, discussions with primary provider, evaluation of patient's response to treatment, examination of patient, obtaining history from patient or surrogate, ordering and performing treatments and interventions, ordering and review of laboratory studies, ordering and review of radiographic studies, pulse oximetry, re-evaluation of patient's condition and review of old charts * Lactic acid, I-Stat (04/20/2017 1:15 AM) Only the most recent of 5 results within the time period is included. Component Value Ref Range Lactic acid, I-Stat 1.5 0.5 - 2.2 mmol/L Specimen Performing Laboratory Plasma specimen DEPARTMENT OF PATHOLOGY AND GENOMIC MEDICINE, [facility] [address] [place] [address] Narrative Test performed at [facility]. * PV duplex venous upper extremity (04/04/2017 10:54 AM) Specimen Performing Laboratory [facility] [address] [place] [address] Narrative EXAMINATION:US DUPLEX VENOUS UPPER EXTREMITY LEFT CLINICAL HISTORY:Left arm swelling. COMPARISON:None. TECHNIQUE:Grayscale, color Doppler, and spectral waveform analysis of the left upper extremity deep venous system was performed. Grayscale, color flow Doppler and spectral waveform analysis of the contralateral subclavian vein also archived and interpreted. FINDINGS: The left internal jugular vein demonstrates normal flow and compressibility. The left subclavian, axillary, brachial, basilic,, and forearm veins reveal no evidence of thrombosis. The veins demonstrate normal Doppler flow and normal compressibility. The cephalic vein is not adequately visualized, though this is not considered a deep vein. The contralateral subclavian vein is patent and compressible with no thrombus identified. IMPRESSION: No DVT identified within the left upper extremity, or the contralateral subclavian vein [facility]-[id number] Procedure Note Interface, Radiology Results Incoming - 04/04/2017 11:01 AM CDT EXAMINATION: US DUPLEX VENOUS UPPER EXTREMITY LEFT CLINICAL HISTORY: Left arm swelling. COMPARISON: None. TECHNIQUE: Grayscale, color Doppler, and spectral waveform analysis of the left upper extremity deep venous system was performed. Grayscale, color flow Doppler and spectral waveform analysis of the contralateral subclavian vein also archived and interpreted. FINDINGS: The left internal jugular vein demonstrates normal flow and compressibility. The left subclavian, axillary, brachial, basilic,, and forearm veins reveal no evidence of thrombosis. The veins demonstrate normal Doppler flow and normal compressibility. The cephalic vein is not adequately visualized, though this is not considered a deep vein. The contralateral subclavian vein is patent and compressible with no thrombus identified. IMPRESSION: No DVT identified within the left upper extremity, or the contralateral subclavian vein [facility]-[id number] * GENERAL (04/01/2017 8:33 PM) Narrative ELOISE Corona 04/01/20178:33 PM Other Date/Time: 04/01/2017 8:32 PM Performed by: JAYDEN JAMISON Authorized by: JAYDEN JAMISON Consent: Consent obtained:Verbal Consent given by:Patient Risks discussed:Bleeding and infection Alternatives discussed:No treatment and delayed treatment Pre-procedure details: Skin preparation:ChloraPrep Anesthesia (see MAR for exact dosages): Anesthesia method:Local infiltration Local anesthetic:Lidocaine 1% w/o epi Post-procedure details: Patient tolerance of procedure:Tolerated well, no immediate complications Comments: Midline catheter placed to right upper arm - two sticks- gained access - dark red blood - wire threaded easily - good blood return noted. * XR Abdomen 1 Vw Portable (03/31/2017 1:02 AM) Specimen Performing Laboratory [facility] [address] [place] [address] Narrative Examination:XR ABDOMEN 1 VW PORTABLE Clinical History: ABDOMINAL PAIN, Diarrhea, Vomiting Comparison: None. Findings: Single frontal view of the abdomen is obtained. The bowel gas pattern is unremarkable. No bowel dilatation is seen. No free air is seen. Right upper quadrant surgical clips are noted. IMPRESSION: 1. No focal abnormality identified in the abdomen. [facility]-[id number] Procedure Note Interface, Radiology Results Incoming - 03/31/2017 1:37 AM CDT Examination: XR ABDOMEN 1 VW PORTABLE Clinical History: ABDOMINAL PAIN, Diarrhea, Vomiting Comparison: None. Findings: Single frontal view of the abdomen is obtained. The bowel gas pattern is unremarkable. No bowel dilatation is seen. No free air is seen. Right upper quadrant surgical clips are noted. IMPRESSION: 1. No focal abnormality identified in the abdomen. [id number] * CRITICAL CARE (03/30/2017 6:31 PM) Narrative Andrea Peralta MD 03/30/20176:31 PM Critical Care Performed by: ANDREA PERALTA Authorized by: ANDREA PERALTA Critical care provider statement: Critical care time (minutes):35 Critical care time was exclusive of:Separately billable procedures and treating other patients and teaching time Critical care was necessary to treat or prevent imminent or life-threatening deterioration of the following conditions:Circulatory failure (hypertensive emergency) Critical care was time spent personally by me on the following activities:Ordering and performing treatments and interventions, development of treatment plan with patient or surrogate, ordering and review of laboratory studies, ordering and review of radiographic studies, discussions with consultants, pulse oximetry, evaluation of patient's response to treatment, re-evaluation of patient's condition, examination of patient, review of old charts, interpretation of cardiac output measurements and obtaining history from patient or surrogate Cristo 'yes' if you are taking over critical care for this patient from another provider.: no * Consult to Sepsis Response Team (02/13/2017 8:56 PM) Narrative ELOISE Benavides 02/13/20178:56 PM Sepsis Clinical Assessment Performed by: HERLINDA NINO Authorized by: HERLINDA NINO Sepsis Clinical Assessment General Assessment Information Current sepsis score:4 If score does not worsen, snooze alerts until:02/14/2017 05:00 CDT SIRS Criteria SIRS criteria met: Heart rate > 90 bpm and Respirations > 20/min Organ Dysfunction Organ dysfunction criteria met: Creatinine > 2.0 mg/dL Sepsis Assessment Clinical suspicion of infection? No Clinical suspicion of sepsis?: No Sepsis protocol started?No Sepsis Related Vitals Heart rate: 130 Temperature: 98.3 F Respiratory rate: 27 Blood pressure: 160/91 Altered mental status: WBC (k/uL) Date Value 02/13/2017 11.4 (H)02/13/2017 7.63 Weight-Based Fluid Bolus Calculation The recommended weight-based bolus volume: 1,791 mL (dosing weight) Please refer to the MAR for actual med/fluid administrations. * CRITICAL CARE (02/13/2017 2:51 PM) Kendal Rodriguez DO 02/13/20172:51 PM Critical Care Performed by: YESENIA RODRIGUEZ Authorized by: YESENIA RODRIGUEZ Critical care provider statement: Critical care time (minutes):32 Critical care was necessary to treat or prevent imminent or life-threatening deterioration of the following conditions:Circulatory failure Critical care was time spent personally by me on the following activities:Development of treatment plan with patient or surrogate, discussions with consultants, ordering and performing treatments and interventions, ordering and review of laboratory studies, ordering and review of radiographic studies, pulse oximetry, re-evaluation of patient's condition, examination of patient and evaluation of patient's response to treatment * Blood culture, aerobic (02/13/2017 11:55 AM) Component Value Ref Range Blood culture isolate, No growth after 5 days of incubation. aerobic Comment: Specimen Information Specimen Source: Blood Specimen Site: Arm Right Specimen Performing Laboratory Blood [facility] DEPARTMENT OF PATHOLOGY AND GENOMIC MEDICINE [address] [place] [id number] * Blood culture, anaerobic (02/13/2017 11:55 AM) Component Value Ref Range Blood culture isolate, No growth after 5 days of incubation. anaerobic Comment: Specimen Information Specimen Source: Blood Specimen Site: Arm Left Specimen Performing Laboratory Blood [facility] DEPARTMENT OF PATHOLOGY AND GENOMIC MEDICINE [address] [place] [address] * Echocardiogram complete w contrast and 3D if needed (01/31/2017 11:05 AM) Component Value Ref Range Ao Root Diameter 2.98 cm AoV Area, Vmax 2.07 cm2 AoV Peak PG 11.12 mmHg AoV Vmax 1.67 m/s IVS,d 1.09 0.6 - 1.2 cm IVS/LVPW,2D 0.80 Left Atrium Dimension 2.62 cm Anterior LA Area d A4C 16.14 cm2 LV,d 4.73 cm LV EF,2D 71.73 % LV,s 2.93 cm LVOT area 3.83 cm2 LVOT Diam,S 2.21 cm LVOT Vmax 0.90 m/s LVPWD,d 1.35 cm PV Pk Grad 2.98 mmHg PV VMAX 0.86 m/s TR Vpeak 2.34 mm/s MV E A ratio 0.81 mmHg TR pk grad 21.82 mmHg E wave decelartion time 250.55 msec MV Peak A Med[place] 0.98 m/s MV valve area p 1/2 3.03 cm2 method MV Peak E [place] 0.79 m/s MV stenosis pressure 1/2 72.66 ms time AV LVOT peak gradient 3.25 mmHg Ao Root Diameter 2.98 cm MV mean gradient 1.70 mmHg LV SYS VOL 43.33 ml LV GLASGOW VOL 103.74 ml LV SV Teich 2D 70.71 ml LV Vol s Teich PSAX 37.99 ml MR peak grad 4.23 mmHg MV Vmax 1.03 m MV VTI Tips 0.29 m LV FS Teich 2D 34.37 MV AE ratio 1.24 LV FS Cube 2D 34.37 MAX Pred HR 194.60 85 of MPHR 165.41 Calc MPHR 194.60 bpm LV SV Cube 2D 75.76 ml LV vol d cube 2D 105.63 ml LV vol s cube 2D 29.86 ml MV Decel slope 3.17 m/s2 Pred Exer Dur R1 11.65 Pred METS R1 11.40 Velocity Ratio (V1/V2) 0.54 m/s EF 58.23 % E/A ratio 0.81 Specimen Performing Laboratory [facility] [address] [place] [address] Narrative Left Ventricular ejection fraction is 60 - 65% There is mild left ventricular hyperrtrophy. The aortic valve appears normal Trace mitral valve regurgitation Trace tricuspid valve regurgitation The pulmonic valve appears normal Normal right ventricular size, wall thickness and global function A small pericardial effusion * PHILOMENA titer (01/30/2017 1:16 PM) Component Value Ref Range PHILOMENA titer 1:80 (A) Not-Detected PHILOMENA titer 1 1:80 (A) Not-Detected PHILOMENA pattern Atypical speckled (A) Not-Detected Specimen Performing Laboratory Blood [facility] DEPARTMENT OF PATHOLOGY AND GENOMIC MEDICINE [address] [place] [address] * PHILOMENA (01/30/2017 1:16 PM) Component Value Ref Range PHILOMENA screen Detected (A) Not-Detected Specimen Performing Laboratory Blood [facility] DEPARTMENT OF PATHOLOGY AND [address] [address] * Hepatitis B surface Ab, quantitative (01/30/2017 12:45 PM) Component Value Ref Range Hepatitis B surface Ab >1000.00 IU/L Comment: The anti-HBs is greater than or equal to 10 IU/L. This patient has either had an antibody response to HBV vaccination, received a transfusion, or has recovered from HBV infection. This patient should be considered immune to hepatitis B. An anti-HBs result greater than or equal to 10 IU/L implies immunity. For post-vaccination antibody testing guidelines for the general public refer to MMWR July 10, 2005/Vol. 54(No. 16);1-23, and for healthcare workers refer to MMWR July 07, 2013/Vol. 62(No. 10);1-19. Reference Interval: anti-HBs 9.99 IU/L or less ....... Negative 10.00 IU/L or greater .... Positive Results greater than 1,000.00 IU/L are reported as greater than 1,000.00 IU/L. Performed by [facility], [address] [place] [id number] [email or web address] Hoff MD - Lab. Director Specimen Performing Laboratory [facility] [address] [place] [address] * Urinalysis screen and microscopy, with reflex to culture (01/30/2017 12:08 PM) Only the most recent of 2 results within the time period is included. Component Value Ref Range Specimen site Clean catch Color, UA Straw Appearance, UA Clear Specific gravity, UA 1.011 1.001 - 1.030 pH, UA 9.0 5.0 - 9.0 Protein, UA 3+ (A) Negative Glucose, UA 2+ (A) Negative Ketones, UA Negative Negative Bilirubin, UA Negative Negative Blood, UA Small (A) Negative Nitrite, UA Negative Negative Urobilinogen, UA <2.0 <2.0 E.U./dL Leukocyte esterase, UA Negative Negative Epithelial cells, UA 4 /HPF WBC, UA 2 0 - 4 /HPF RBC, UA 11 (H) 0 - 2 /HPF Bacteria, UA Few None seen Yeast, UA None seen Yeast with pseudohyphae, None seen UA Specimen Performing Laboratory Urine [facility] DEPARTMENT OF PATHOLOGY AND GENOMIC MEDICINE [address] [place] [address] * Urine culture (01/30/2017 12:08 PM) Only the most recent of 2 results within the time period is included. Component Value Ref Range Urine culture SEE COMMENTComment: Bacteriuria screen negative. Specimen Performing Laboratory [facility] DEPARTMENT OF PATHOLOGY AND GENOMIC MEDICINE [id number] [place] [address] * PV Duplex Venous Lower Extremity (01/30/2017 8:21 AM) Specimen Performing Laboratory [facility] [address] [place] [address] Narrative EXAMINATION:US DUPLEX VENOUS LOWER EXTREMITY BILATERAL CLINICAL HISTORY:bilateral leg swellingpain COMPARISON:August 2015 TECHNIQUE:Grayscale, color Doppler, and spectral waveform analysis of the bilateral lower extremity deep venous systems was performed. The bilateral common femoral, superficial femoral, proximal deep femoral, greater saphenous, and popliteal veins were evaluated. The calf vessels were also evaluated. FINDINGS: The bilateral common femoral, superficial femoral, and popliteal veins are compressible. They demonstrate normal venous waveforms and response to augmentation. There is flow in the visualized calf veins. Mild soft tissue edema is present. IMPRESSION: 1.Normal bilateral lower extremity venous Doppler examination. There is no evidence of deep venous thrombosis. [id number] Procedure Note Interface, Radiology Results Incoming - 01/30/2017 8:25 AM CDT EXAMINATION: US DUPLEX VENOUS LOWER EXTREMITY BILATERAL CLINICAL HISTORY: bilateral leg swelling pain COMPARISON: August 2015 TECHNIQUE: Grayscale, color Doppler, and spectral waveform analysis of the bilateral lower extremity deep venous systems was performed. The bilateral common femoral, superficial femoral, proximal deep femoral, greater saphenous, and popliteal veins were evaluated. The calf vessels were also evaluated. FINDINGS: The bilateral common femoral, superficial femoral, and popliteal veins are compressible. They demonstrate normal venous waveforms and response to augmentation. There is flow in the visualized calf veins. Mild soft tissue edema is present. IMPRESSION: 1.Normal bilateral lower extremity venous Doppler examination. There is no evidence of deep venous thrombosis. [id number] * CT Stroke Brain Wo Contrast (01/30/2017 5:27 AM) Specimen Performing Laboratory [facility] [address] [place] [address] Narrative EXAMINATION: CT STROKE BRAIN WO CONTRAST CLINICAL HISTORY: STROKE COMPARISON:None TECHNIQUE: Noncontrast enhanced images of the brain were obtained from the skull base to the vertex. Both soft tissue and bone reconstruction algorithms were performed. CT imaging was performed with iterative reconstruction technique and/or automated exposure control to reduce radiation dose. FINDINGS: No intracranial hemorrhage, mass, mass effect, or herniation. No acute osseous abnormalities. Moderate mucosal thickening of right maxillary sinus. IMPRESSION: No acute intracranial abnormality identified. Findings were discussed with Dr. Owens at 01/30/2017 5:46 AM who verbalized understanding. [facility]-[id number] Procedure Note Interface, Radiology Results Incoming - 01/30/2017 5:50 AM CDT EXAMINATION: CT STROKE BRAIN WO CONTRAST CLINICAL HISTORY: STROKE COMPARISON: None TECHNIQUE: Noncontrast enhanced images of the brain were obtained from the skull base to the vertex. Both soft tissue and bone reconstruction algorithms were performed. CT imaging was performed with iterative reconstruction technique and/or automated exposure control to reduce radiation dose. FINDINGS: No intracranial hemorrhage, mass, mass effect, or herniation. No acute osseous abnormalities. Moderate mucosal thickening of right maxillary sinus. IMPRESSION: No acute intracranial abnormality identified. Findings were discussed with Dr. Owens at 01/30/2017 5:46 AM who verbalized understanding. [facility]-[id number] * Smear review (12/09/2016 3:50 AM) Component Value Ref Range Platelet slide review Carmen adequate Anisocytosis Moderate Spherocytes Moderate (A) Ovalocytes Moderate Tay cells Moderate (A) Giant platelets Occasional Specimen Performing Laboratory [facility] DEPARTMENT OF PATHOLOGY AND GENOMIC MEDICINE [address] [place] [address] * US Single Less Than 14 Weeks (12/08/2016 2:46 PM) Only the most recent of 5 results within the time period is included. Specimen Performing Laboratory [facility] [address] [place] [address] Narrative EXAMINATION:US SINGLE LESS THAN 14 WEEKS CLINICAL HISTORY:IUGR RISK ELEVATEDINITIAL EVALUATION, NORMAL SIZE FETUSDECREASED AF VOLUMEFOLLOW UP COMPARISON: December 04, 2016 TECHNIQUE: Transabdominal pelvic ultrasound was performed. IMPRESSION: Single viable intrauterine gestation in breech presentation. heart rate is normal measuring 159 bpm. Estimated sonographic gestational age based on a crown-rump length of 7.8 cm is 13 weeks, 6 days. Estimated due date based on sonographic age is June 09, 2017. There is good correlation with the last menstrual gestational age. MIREYA is normal. Placenta is anterior and normal. There is a normal placental cord insertion. Uterus is anteverted measuring 13.7 x 8.9 x 5.4 cm. No fibroid. Ovaries not identified. No adnexal mass seen. Urinary bladder is unremarkable. No free fluid or fluid collection. Thank you for allowing us to participate in the care of your patient. [facility]-[id number] Procedure Note [facility], Radiology Results Incoming - 12/08/2016 4:04 PM CDT EXAMINATION: US SINGLE LESS THAN 14 WEEKS CLINICAL HISTORY: IUGR RISK ELEVATED INITIAL EVALUATION, NORMAL SIZE FETUS DECREASED AF VOLUME FOLLOW UP COMPARISON: December 04, 2016 TECHNIQUE: Transabdominal pelvic ultrasound was performed. IMPRESSION: Single viable intrauterine gestation in breech presentation. heart rate is normal measuring 159 bpm. Estimated sonographic gestational age based on a crown-rump length of 7.8 cm is 13 weeks, 6 days. Estimated due date based on sonographic age is June 09, 2017. There is good correlation with the last menstrual gestational age. MIREYA is normal. Placenta is anterior and normal. There is a normal placental cord insertion. Uterus is anteverted measuring 13.7 x 8.9 x 5.4 cm. No fibroid. Ovaries not identified. No adnexal mass seen. Urinary bladder is unremarkable. No free fluid or fluid collection. Thank you for allowing us to participate in the care of your patient. [facility]-[id number] * Cortisol level, AM (12/08/2016 6:20 AM) Component Value Ref Range Cortisol, AM 14 6 - 18 ug/dL Specimen Performing Laboratory Plasma specimen [facility] DEPARTMENT OF PATHOLOGY AND GENOMIC MEDICINE [address] [place] [address] * Hemoglobin & hematocrit (12/06/2016 6:25 AM) Component Value Ref Range HGB 8.1 (L) 12.0 - 16.0 g/dL HCT 25.6 (L) 37.0 - 47.0 % Specimen Performing Laboratory Blood [facility] [place] [address] * Parathyroid hormone (12/06/2016 6:25 AM) Component Value Ref Range PTH 205 (H) 15 - 65 pg/mL Specimen Performing Laboratory Blood [facility] [place] [address] * CBC hemogram (12/05/2016 5:45 AM) Only the most recent of 5 results within the time period is included. Component Value Ref Range WBC 7.2 4.5 - 11.0 k/uL RBC 2.92 (L) 4.20 - 5.50 m/uL HGB 8.4 (L) 12.0 - 16.0 g/dL HCT 25.6 (L) 37.0 - 47.0 % MCV 87.7 82.0 - 100.0 fL MCH 28.8 27.0 - 34.0 pg MCHC 32.8 31.0 - 37.0 g/dL RDW - SD 43.5 37.0 - 55.0 fL MPV 9.8 6.9 - 11.0 fL Platelet count 162 150 - 400 K/uL Nucleated RBC 0.00 /100 WBC Specimen Performing Laboratory Blood [facility] DEPARTMENT OF PATHOLOGY AND [facility] MEDICINE [address] [place] [address] * GENERAL (12/03/2016 3:43 PM) Narrative ELOISE Corona 12/03/20163:43 PM Midline cath insertion right arm Date/Time: 12/02/2016 3:40 PM Performed by: JAYDEN JAMISON Authorized by: JAYDEN JAMISON Consent: Consent obtained:Verbal Consent given by:Patient Risks discussed:Bleeding, infection and nerve damage Alternatives discussed:Delayed treatment Indications: Indications:Need for iv access to start cardene gtt - pt bp 220/120 Pre-procedure details: Skin preparation:ChloraPrep Preparation: Patient was prepped and draped in the usual sterile fashion Anesthesia (see MAR for exact dosages): Anesthesia method:Topical application Post-procedure details: Patient tolerance of procedure: pt tolerated procedure well - comfortable and thanked me Comments: U/s guided placement of midline cath - right arm - one stick - dark red non pulsatile flow noted - wire and cath threaded easily and good blood return to port ---- secured with stat lock device and sterile technique maintained throughout procedure. * Prepare RBC, 1 Units (12/02/2016 10:00 AM) Only the most recent of 3 results within the time period is included. Component Value Ref Range Product name Red Cells AS1 Leukored Irrad Unit number [id number] Product code [id number] Dispense status Transfused Blood expiration date 20161209 Blood type code 9500 Blood type O NEGATIVE Specimen Performing Laboratory [facility] DEPARTMENT OF PATHOLOGY AND GENOMIC MEDICINE [address] [place] [address] * Type and screen (12/02/2016 10:00 AM) Only the most recent of 3 results within the time period is included. Component Value Ref Range ABO grouping O Rh type NEG Antibody screen (gel) NEG Specimen Performing Laboratory Blood [facility] DEPARTMENT [place] [address] * Urine culture screen (11/28/2016 11:00 AM) Only the most recent of 2 results within the time period is included. Component Value Ref Range Color, UA Yellow Appearance, UA Cloudy Specific gravity, UA 1.009 1.001 - 1.030 pH, UA 7.0 5.0 - 9.0 Protein, UA 2+ (A) Negative Glucose, UA 3+ (A) Negative Ketones, UA Negative Negative Bilirubin, UA Negative Negative Blood, UA Small (A) Negative Nitrite, UA Negative Negative Urobilinogen, UA <2.0 <2.0 E.U./dL Leukocyte esterase, UA Moderate (A) Negative Epithelial cells, UA 18 /HPF Round epithelial cells, <1 0 - 5 /HPF UA WBC, UA 18 (H) 0 - 4 /HPF RBC, UA 57 (H) 0 - 2 /HPF Bacteria, UA Few None seen Yeast, UA None seen Yeast with pseudohyphae, None seen UA Trichomonas, UA Few (A) Urine culture isolate Mixed Gram positive gerardo 10-4 cfu/ml Specimen Performing Laboratory Urine [facility] DEPARTMENT OF PATHOLOGY AND GENOMIC MEDICINE [address] [place] [address] Narrative Specimen Site is : Clean catch Specimen Source is : Urine * Lipase level (11/28/2016 10:10 AM) Component Value Ref Range Lipase 13 13 - 60 U/L Specimen Performing Laboratory [facility] DEPARTMENT OF PATHOLOGY AND GENOMIC MEDICINE [address] [facility] [place] [address] * Creatinine level (11/18/2016 6:20 PM) Component Value Ref Range Creatinine 2.6 (H) 0.5 - 0.9 mg/dL Specimen Performing Laboratory [facility] DEPARTMENT OF PATHOLOGY AND GENOMIC MEDICINE [address] [place] [address]. [place] [address] * USPV Venous Upper Extremity Right (11/18/2016 7:00 AM) Specimen Performing Laboratory [facility] [address] [place] [address] Narrative EXAMINATION:USPV EXTREMITY JORGE UPPER UNI RIGHT CLINICAL HISTORY:right arm swolling COMPARISON:None. TECHNIQUE:Grayscale, color Doppler, and spectral waveform analysis of the right upper extremity deep venous system was performed. Spectral Doppler evaluation of the left subclavian vein was also performed. FINDINGS: The right internal jugular vein demonstrates normal flow and compressibility. The right subclavian, axillary, brachial, basilic, cephalic, and forearm veins reveal no evidence of thrombosis. The veins demonstrate normal Doppler flow and normal compressibility. The left subclavian vein is also patent. IMPRESSION: Normal right upper extremity venous Doppler examination. No sonographic evidence of deep venous thrombosis of the right upper extremity. [facility]-[id number] Procedure Note Interface, Radiology Conversion - 11/18/2016 7:32 AM CDT EXAMINATION: USPV EXTREMITY JORGE UPPER UNI RIGHT CLINICAL HISTORY: right arm swolling COMPARISON: None. TECHNIQUE: Grayscale, color Doppler, and spectral waveform analysis of the right upper extremity deep venous system was performed. Spectral Doppler evaluation of the left subclavian vein was also performed. FINDINGS: The right internal jugular vein demonstrates normal flow and compressibility. The right subclavian, axillary, brachial, basilic, cephalic, and forearm veins reveal no evidence of thrombosis. The veins demonstrate normal Doppler flow and normal compressibility. The left subclavian vein is also patent. IMPRESSION: Normal right upper extremity venous Doppler examination. No sonographic evidence of deep venous thrombosis of the right upper extremity. [facility]-[id number] * US Abdomen Portable (11/18/2016 6:20 AM) Specimen Performing Laboratory [facility] [address] [place] [address] Narrative EXAM: US ABDOMEN PORTABLE CLINICAL DATA:Abdomen Pain (Specify Area in Comments) COMPARISON: NONE. FINDINGS: LIVER:Mild diffuse coarsening of the liver parenchymal echogenicity suggestive of underlying diffuse liver parenchymal disease. No liver mass. Liver is normal in size. MPV:Doppler evaluation of the portal vein demonstrates normal hepatopetal flow. GALLBLADDER:Absent. CBD: 5 mm diameter, within normal limits. PANCREAS:The visualized portions of the pancreas are within normal limits. SPLEEN:The spleen is homogeneous and not enlarged.. Splenic length is 11.7 cm. Kidneys: The patient is known to have a horseshoe kidney, which is not well assessed due to patient's bowel gas. AORTA:The visualized upper abdominal aorta demonstrates no evidence of ectasia or aneurysm. IVC:The visualized portions of the inferior vena cava are unremarkable. There is mild perihepatic and perisplenic ascites. A small right pleural effusion is also apparent. IMPRESSION: Suspect underlying diffuse liver parenchymal disease, without focal liver mass. There is mild ascites and a small right pleural effusion. [id number] Procedure Note Hm Interface, Radiology Conversion - 11/18/2016 7:38 AM CDT EXAM: US ABDOMEN PORTABLE CLINICAL DATA: Abdomen Pain (Specify Area in Comments) COMPARISON: NONE. FINDINGS: LIVER: Mild diffuse coarsening of the liver parenchymal echogenicity suggestive of underlying diffuse liver parenchymal disease. No liver mass. Liver is normal in size. MPV: Doppler evaluation of the portal vein demonstrates normal hepatopetal flow. GALLBLADDER: Absent. CBD: 5 mm diameter, within normal limits. PANCREAS: The visualized portions of the pancreas are within normal limits. SPLEEN: The spleen is homogeneous and not enlarged.. Splenic length is 11.7 cm. Kidneys: The patient is known to have a horseshoe kidney, which is not well assessed due to patient's bowel gas. AORTA: The visualized upper abdominal aorta demonstrates no evidence of ectasia or aneurysm. IVC: The visualized portions of the inferior vena cava are unremarkable. There is mild perihepatic and perisplenic ascites. A small right pleural effusion is also apparent. IMPRESSION: Suspect underlying diffuse liver parenchymal disease, without focal liver mass. There is mild ascites and a small right pleural effusion. [id number] * Vancomycin level, trough (11/17/2016 5:02 PM) Only the most recent of 7 results within the time period is included. Component Value Ref Range Vancomycin, trough 16.9 10.0 - 20.0 ug/mL Comment: Therapeutic Ranges: Peak 30.0 - 40.0 ug/mL Trough 10.0 - 20.0 ug/mL Specimen Performing Laboratory [facility] DEPARTMENT OF PATHOLOGY AND [facility] MEDICINE [address] [place] [address] * Sodium level, urine, random (11/12/2016 5:58 PM) Component Value Ref Range Urine sodium 66 mEq/L concentration Total volume, urine 40 mL Urine sodium excretion 3Comment: Varies with diet. mEq/vol Specimen Performing Laboratory [facility] DEPARTMENT OF PATHOLOGY AND [address] [address] * Osmolality, urine (11/12/2016 5:58 PM) Component Value Ref Range Osmolality, urine 262 50 - 1,400 mOsm/kg Specimen Performing Laboratory [facility] OF PATHOLOGY AND [address] [address] * IR PICC Line Insertion Fluoroscopy (11/11/2016 5:32 PM) Specimen Performing Laboratory [facility] [address] [place] [address] Narrative Examination:PICC LINE INSERTION FLUORO Clinical history:"Very poor IV access, multiple antibiotics, port-a-cath removed" Comparison:There are no prior studies for comparison. Anesthesia:Lidocaine solution was injected into the involved tissues. Reference air kerma:0.3 mGy. Technique:The patient was prepared using sterile technique after signed, informed consent was obtained. Maximal sterile barrier technique was implemented. The right basilic vein was imaged sonographically and was found to be patent and appropriate for percutaneous access.Under real-time sonographic guidance, the vessel was accessed using a 21-gauge needle with real-time visualization of needle entry into the vessel.A sonographic image of the accessed vessel was obtained as permanent documentation.A microwire was inserted and advanced centrally.A peel-away sheath was placed over the wire.A 5 Vietnamese catheter was severed to 39 cm in length.The catheter was introduced [id number] and positioned using real-time fluoroscopic guidance with the catheter tip within the right atrium.The catheter was tested and found to function properly.The external portion of the catheter was sutured to the adjacent skin. A 2 cm length incision was made overlying the right internal jugular venous port catheter in the exact location of the incision made at the time of port placement.The port catheter was bluntly dissected from the soft tissues and was removed as unit without incident. Within the deeper soft tissues, the incision was closed with absorbable suture using interrupted technique.Specifically, four interrupted closures were placed.The more superficial tissues were closed with absorbable suture using running, subcuticular technique. Dermabond was applied to the incision using routine technique. Estimated blood loss:Less than 2 cc. Complications:None. Specimens removed:None. Assistants:None. IMPRESSION: A power-injectable, 5-Vietnamese, 39 cm in length peripherally inserted central catheter (PICC) was placed via the right basilic vein using image guidance and without incident as described above.The catheter is ready for routine use. The patient's indwelling right internal jugularvenous port catheter was removed without incident as described above. Thank you for allowing us to participate in the care of your patient. [facility]-[id number] Procedure Note Hm Interface, Radiology Conversion - 11/11/2016 6:50 PM CDT Examination: PICC LINE INSERTION FLUORO Clinical history: "Very poor IV access, multiple antibiotics, port-a-cath removed" Comparison: There are no prior studies for comparison. Anesthesia: Lidocaine solution was injected into the involved tissues. Reference air kerma: 0.3 mGy. Technique: The patient was prepared using sterile technique after signed, informed consent was obtained. Maximal sterile barrier technique was implemented. The right basilic vein was imaged sonographically and was found to be patent and appropriate for percutaneous access. Under real-time sonographic guidance, the vessel was accessed using a 21-gauge needle with real-time visualization of needle entry into the vessel. A sonographic image of the accessed vessel was obtained as permanent documentation. A microwire was inserted and advanced centrally. A peel-away sheath was placed over the wire. A 5 Vietnamese catheter was severed to 39 cm in length. The catheter was introduced [id number] and positioned using real-time fluoroscopic guidance with the catheter tip within the right atrium. The catheter was tested and found to function properly. The external portion of the catheter was sutured to the adjacent skin. A 2 cm length incision was made overlying the right internal jugular venous port catheter in the exact location of the incision made at the time of port placement. The port catheter was bluntly dissected from the soft tissues and was removed as unit without incident. Within the deeper soft tissues, the incision was closed with absorbable suture using interrupted technique. Specifically, four interrupted closures were placed. The more superficial tissues were closed with absorbable suture using running, subcuticular technique. Dermabond was applied to the incision using routine technique. Estimated blood loss: Less than 2 cc. Complications: None. Specimens removed: None. Assistants: None. IMPRESSION: A power-injectable, 5-Vietnamese, 39 cm in length peripherally inserted central catheter (PICC) was placed via the right basilic vein using image guidance and without incident as described above. The catheter is ready for routine use. The patient's indwelling right internal jugular venous port catheter was removed without incident as described above. Thank you for allowing us to participate in the care of your patient. [facility]-[id number] * IR Central Catheter Placement Replace Removal Fluoroscopy (11/11/2016 5:32 PM ) Specimen Performing Laboratory [facility] [address] [place] [address] Narrative Examination:CNTR CATH PLCMNT REPL REM FLUO Clinical history:"port removal" Comparison:There are no prior studies for comparison. Anesthesia:Lidocaine solution was injected into the involved tissues. Reference air kerma:0.3 mGy. Technique:The patient was prepared using sterile technique after signed, informed consent was obtained. Maximal sterile barrier technique was implemented. The right basilic vein was imaged sonographically and was found to be patent and appropriate for percutaneous access.Under real-time sonographic guidance, the vessel was accessed using a 21-gauge needle with real-time visualization of needle entry into the vessel.A sonographic image of the accessed vessel was obtained as permanent documentation.A microwire was inserted and advanced centrally.A peel-away sheath was placed over the wire.A 5 Vietnamese catheter was severed to 39 cm in length.The catheter was introduced [id number] and positioned using real-time fluoroscopic guidance with the catheter tip within the right atrium.The catheter was tested and found to function properly.The external portion of the catheter was sutured to the adjacent skin. A 2 cm length incision was made overlying the right internal jugular venous port catheter in the exact location of the incision made at the time of port placement.The port catheter was bluntly dissected from the soft tissues and was removed as unit without incident. Within the deeper soft tissues, the incision was closed with absorbable suture using interrupted technique.Specifically, four interrupted closures were placed.The more superficial tissues were closed with absorbable suture using running, subcuticular technique. Dermabond was applied to the incision using routine technique. Estimated blood loss:Less than 2 cc. Complications:None. Specimens removed:None. Assistants:None. IMPRESSION: A power-injectable, 5-Vietnamese, 39 cm in length peripherally inserted central catheter (PICC) was placed via the right basilic vein using image guidance and without incident as described above.The catheter is ready for routine use. The patient's indwelling right internal jugularvenous port catheter was removed without incident as described above. Thank you for allowing us to participate in the care of your patient. [facility]-[id number] Procedure Note Hm Interface, Radiology Conversion - 11/11/2016 7:39 PM CDT Examination: CNTR CATH PLCMNT REPL REM FLUO Clinical history: "port removal" Comparison: There are no prior studies for comparison. Anesthesia: Lidocaine solution was injected into the involved tissues. Reference air kerma: 0.3 mGy. Technique: The patient was prepared using sterile technique after signed, informed consent was obtained. Maximal sterile barrier technique was implemented. The right basilic vein was imaged sonographically and was found to be patent and appropriate for percutaneous access. Under real-time sonographic guidance, the vessel was accessed using a 21-gauge needle with real-time visualization of needle entry into the vessel. A sonographic image of the accessed vessel was obtained as permanent documentation. A microwire was inserted and advanced centrally. A peel-away sheath was placed over the wire. A 5 Vietnamese catheter was severed to 39 cm in length. The catheter was introduced [id number] and positioned using real-time fluoroscopic guidance with the catheter tip within the right atrium. The catheter was tested and found to function properly. The external portion of the catheter was sutured to the adjacent skin. A 2 cm length incision was made overlying the right internal jugular venous port catheter in the exact location of the incision made at the time of port placement. The port catheter was bluntly dissected from the soft tissues and was removed as unit without incident. Within the deeper soft tissues, the incision was closed with absorbable suture using interrupted technique. Specifically, four interrupted closures were placed. The more superficial tissues were closed with absorbable suture using running, subcuticular technique. Dermabond was applied to the incision using routine technique. Estimated blood loss: Less than 2 cc. Complications: None. Specimens removed: None. Assistants: None. IMPRESSION: A power-injectable, 5-Vietnamese, 39 cm in length peripherally inserted central catheter (PICC) was placed via the right basilic vein using image guidance and without incident as described above. The catheter is ready for routine use. The patient's indwelling right internal jugular venous port catheter was removed without incident as described above. Thank you for allowing us to participate in the care of your patient. [facility]-[id number] * US PICC Line Vascular Insertion (11/11/2016 5:32 PM) Specimen Performing Laboratory [facility] [place] [address] Narrative Examination:PICC LINE INSERTION US Clinical history:"GASTROPARESIS, HYPERTENSIVE URGENCY, DEHYDRATION" Comparison:There are no prior studies for comparison. Anesthesia:Lidocaine solution was injected into the involved tissues. Reference air kerma:0.3 mGy. Technique:The patient was prepared using sterile technique after signed, informed consent was obtained. Maximal sterile barrier technique was implemented. The right basilic vein was imaged sonographically and was found to be patent and appropriate for percutaneous access.Under real-time sonographic guidance, the vessel was accessed using a 21-gauge needle with real-time visualization of needle entry into the vessel.A sonographic image of the accessed vessel was obtained as permanent documentation.A microwire was inserted and advanced centrally.A peel-away sheath was placed over the wire.A 5 Vietnamese catheter was severed to 39 cm in length.The catheter was introduced [id number] and positioned using real-time fluoroscopic guidance with the catheter tip within the right atrium.The catheter was tested and found to function properly.The external portion of the catheter was sutured to the adjacent skin. A 2 cm length incision was made overlying the right internal jugular venous port catheter in the exact location of the incision made at the time of port placement.The port catheter was bluntly dissected from the soft tissues and was removed as unit without incident. Within the deeper soft tissues, the incision was closed with absorbable suture using interrupted technique.Specifically, four interrupted closures were placed.The more superficial tissues were closed with absorbable suture using running, subcuticular technique. Dermabond was applied to the incision using routine technique. Estimated blood loss:Less than 2 cc. Complications:None. Specimens removed:None. Assistants:None. IMPRESSION: A power-injectable, 5-Vietnamese, 39 cm in length peripherally inserted central catheter (PICC) was placed via the right basilic vein using image guidance and without incident as described above.The catheter is ready for routine use. The patient's indwelling right internal jugularvenous port catheter was removed without incident as described above. Thank you for allowing us to participate in the care of your patient. [id number] Procedure Note Hm Interface, Radiology Conversion - 11/11/2016 6:52 PM CDT Examination: PICC LINE INSERTION US Clinical history: "GASTROPARESIS, HYPERTENSIVE URGENCY, DEHYDRATION" Comparison: There are no prior studies for comparison. Anesthesia: Lidocaine solution was injected into the involved tissues. Reference air kerma: 0.3 mGy. Technique: The patient was prepared using sterile technique after signed, informed consent was obtained. Maximal sterile barrier technique was implemented. The right basilic vein was imaged sonographically and was found to be patent and appropriate for percutaneous access. Under real-time sonographic guidance, the vessel was accessed using a 21-gauge needle with real-time visualization of needle entry into the vessel. A sonographic image of the accessed vessel was obtained as permanent documentation. A microwire was inserted and advanced centrally. A peel-away sheath was placed over the wire. A 5 Vietnamese catheter was severed to 39 cm in length. The catheter was introduced [id number] and positioned using real-time fluoroscopic guidance with the catheter tip within the right atrium. The catheter was tested and found to function properly. The external portion of the catheter was sutured to the adjacent skin. A 2 cm length incision was made overlying the right internal jugular venous port catheter in the exact location of the incision made at the time of port placement. The port catheter was bluntly dissected from the soft tissues and was removed as unit without incident. Within the deeper soft tissues, the incision was closed with absorbable suture using interrupted technique. Specifically, four interrupted closures were placed. The more superficial tissues were closed with absorbable suture using running, subcuticular technique. Dermabond was applied to the incision using routine technique. Estimated blood loss: Less than 2 cc. Complications: None. Specimens removed: None. Assistants: None. IMPRESSION: A power-injectable, 5-Vietnamese, 39 cm in length peripherally inserted central catheter (PICC) was placed via the right basilic vein using image guidance and without incident as described above. The catheter is ready for routine use. The patient's indwelling right internal jugular venous port catheter was removed without incident as described above. Thank you for allowing us to participate in the care of your patient. [facility]-[id number] * Urine eosinophils (11/08/2016 3:00 PM) Component Value Ref Range Eosinophils, urine NONE Specimen Performing Laboratory [facility] DEPARTMENT OF PATHOLOGY AND GENOMIC MEDICINE [address] [place] [id number] * Urine drugs of abuse screen (11/08/2016 3:00 PM) Component Value Ref Range Amphetamine screen, urine Negative Methamphetamine screen, Negative urine Barbiturate screen, urine Negative Benzodiazepine screen, Negative urine Cocaine screen, urine Negative Methadone screen, urine FTComment: 11/08/2016 16:19 Testing not performed. [facility] Opiates screen, urine Positive (A) Phencyclidine screen, Negative urine Cannabinoid screen, urine Negative Tricyclic screen, urine Negative Comment: Drug screen minimum concentration of detectability Amphetamines 1000 ng/mL Methamphetamines 1000 ng/mL Barbiturates 300 ng/mL Benzodiazepines 300 ng/mL Cocaine 300 ng/mL Methadone 3 00 ng/mL Opiates 300 ng/mL Phencyclidine 25 ng/mL Cannabinoids 50 ng/mL Tricyclics 1000 ng/mL Negative test results indicates presumptive evidence of lack of clinically significant drug concentration in this urine specimen. Positive test results are presumptive evidence of clinically significant drug concentration in this urine specimen. Testing performed for medical purposes only. Specimen Performing Laboratory [facility] DEPARTMENT OF PATHOLOGY AND GENOMIC MEDICINE [address] [place], [place] [address] * Manual differential (11/07/2016 6:17 AM) Component Value Ref Range Manual differential PERFORMED Neutrophils 97.0 (H) 39.0 - 69.0 % Lymphocytes 3.0 (L) 25.0 - 45.0 % Monocytes 0.0 0.0 - 10.0 % Eosinophils 0.0 0.0 - 5.0 % Basophils 0.0 0.0 - 1.0 % Platelet slide review Carmen adequate Anisocytosis Moderate Polychromasia Moderate Specimen Performing Laboratory [facility] DEPARTMENT OF PATHOLOGY AND GENOMIC MEDICINE [address] [place] [id number] * ECG 12 lead (11/07/2016 3:57 AM) Component Value Ref Range Ventricular rate 134 Atrial rate 134 AR interval 116 QRSD interval 74 QT interval 328 QTC interval 489 P axis 1 68 QRS axis 1 47 T wave axis 33 EKG impression Sinus tachycardia-Septal infarct , age undetermined-Abnormal ECG-In automated comparison with ECG of 15-SEP-2016 06:24,-Septal infarct is now present- Specimen Performing Laboratory [facility] MUSE [address] [place] [address] * Urinalysis (11/07/2016 12:50 AM) Component Value Ref Range Glucose, UA 2+ (A) Negative Bilirubin, UA Negative Negative Ketones, UA Negative Negative Specific gravity, UA 1.020 1.001 - 1.035 Blood, UA Moderate (A) Negative pH, UA 7.0 5.0 - 8.5 Protein, UA 3+ (A) Negative Urobilinogen, UA <2.0 <2.0 Nitrite, UA Negative Negative Leukocyte esterase, UA Small (A) Negative Color, UA Yellow Appearance, UA Clear Specimen Performing Laboratory DEPARTMENT OF PATHOLOGY AND GENOMIC MEDICINE, [facility] [address] [place] [address] * hCG qualitative, urine screen (11/07/2016 12:50 AM) Component Value Ref Range hCG qualitative, urine PositiveComment: Sensitivity of HCG test: 25 mIU/ml Specimen Performing Laboratory [facility] DEPARTMENT OF PATHOLOGY AND GENOMIC MEDICINE [address] [place] [id number] after 09/18/2016 Insurance Payer Benefit Subscriber ID Type Phone Address Plan / Group [facility] xxxxxxxxx HMO PLAN [facility] MEDICAID MEDICAID xxxxxxxxx Medicaid MEDICARE MEDICARE xxxxxxxxxx Medicare [place] PART A AND B
--- OUTSIDE RECORDS SUMMARY | 2017-09-19 07:09 | XMS REPORT ---
Author Author [facility] Address Unknown Phone Unavailable Care Team Providers Care Surveillance Agent Name Role Phone FABY JHA Unavailable Unavailable PAPITOMARLYN Darnell Unavailable Unavailable GAY MAX Unavailable Unavailable FEI COLLINS Unavailable Unavailable LINDA MENSAH Unavailable Unavailable GREGG KELLY Unavailable Unavailable ALLAN MAX Unavailable Unavailable ISHMAEL MAX Unavailable Unavailable ABHISHEK HAHN Unavailable Unavailable GUTHRIE, COOKIE Unavailable Unavailable Carlos Hutchinson Unavailable Unavailable Problems This patient has no known problems. Allergies, Adverse Reactions, Alerts This patient has no known allergies or adverse reactions. Medications This patient has no known medications. Encounters Start Date/Time End Date/Time Encounter Type Admission Type Attending [facility] Facility Care Department Encounter ID 2017-09-10 08:00:00 2017-09-13 11:02:00 Inpatient E FABY JHA [facility] [id number] 2017-08-06 18:55:00 2017-08-06 21:30:00 Emergency E MARLYN COBOS [facility] [id number] 2017-08-04 16:20:00 2017-08-04 18:33:00 Emergency E GAY MAX [facility] [id number] 2017-07-30 04:43:00 2017-07-30 06:23:00 Emergency E LINDA MENSAH [facility] [id number] 2017-07-28 18:51:00 2017-07-28 23:21:00 Emergency E GREGG KELLY [facility] [id number] 2017-07-12 10:01:00 2017-07-12 13:01:00 Emergency E ISHMAEL MAX [facility] [id number] 2017-07-08 19:18:00 2017-07-08 23:39:00 Emergency E ABHISHEK HAHN [facility] [id number] 2016-11-28 13:38:00 2016-11-28 13:38:00 Outpatient Carlos Hutchinson [facility] [id number] Results Test Description Test Time Test Comments Text Results Atomic Results Result Comments HEPATITIS B CORE AB TOTAL *WW* 2017-09-13 14:51:00 HEPATITIS B CORE AB TOTAL (test lxjq=[id number]) NON-REACTIVE NON-REACTIVE TEST PERFORMED AT:[employer] [address] [id number] STEWART M.D. COMPREHENSIVE METABOLIC FULTON *WW*2017-09-13 07:10:00* Test Item Value Reference Range Comments GLUCOSE (test code=06D) 161 mg/dL 75-100 SODIUM (test code=01A) 138 mmol/L 136-145 POTASSIUM (test code=01B) 4.4 mmol/L 3.6-5.1 CHLORIDE (test code=04A) 101 mmol/L 98-107 CO2 (test code=02A) 25 mmol/L 22-32 ANION GAP (test code=ANG) 16.4 mmol/L BUN (test code=05D) 25 mg/dL 7-18 CREATININE (test code=03E) 7.2 mg/dL 0.4-1.1 BUN/CREA (test code=BCR) 4 12-20 CALCIUM (test code=09D) 7.6 mg/dL 8.3-9.5 BILI TOTAL (test code=11A) 0.4 mg/dL 0.2-1.0 PROTEIN (test code=07D) 6.3 g/dL 6.4-8.2 ALBUMIN (test code=08D) 2.9 g/dL 3.5-4.8 GLOBULIN (test code=GLB) 3.4 g/dL 1.5-3.8 ALB/GLOB (test code=AGRR) 0.9 1.0-2.6 ALK PHOS (test code=35A) 91 IU/L 42-121 AST (test code=30A) 26 IU/L <=42 ALT (test code=31A) 13 IU/L <=78 CBC (INCLUDES AUTOMATED DIFFERENTIAL)*[id number] 06:48:00* Test Item Value Reference Range Comments WBC (test code=WBC) 4.8 10\S\3/uL 4.5-11.0 RBC (test code=RBC) 3.13 10\S\6/uL 4.30-5.70 HGB (test code=HBG) 9.3 g/dL 12.0-15.5 HCT (test code=HCT) 29.4 % 35.0-44.0 MCV (test code=MCV) 93.9 fL 81.0-99.0 MCH (test code=MCH) 29.7 pg 27.0-31.0 MCHC (test code=MCHC) 31.6 g/dL 32.0-36.0 RDW (test code=RDW) 16.4 % 11.5-14.5 PLT (test code=PLT) 186 10\S\3/uL 130-400 MPV (test code=MPV) 10.3 fL 9.4-12.4 NEUTROP # (test code=NE#) 2.0 10\S\3/uL 1.6-8.0 LYMPH # (test code=LY#) 2.2 10\S\3/uL 1.1-3.5 MONOCYTE # (test code=MO#) 0.4 10\S\3/uL 0.0-1.1 EOSINOPH # (test code=EO#) 0.1 10\S\3/uL 0.0-0.7 BASOPHIL # (test code=BA#) 0.0 10\S\3/uL 0.0-0.3 IG # (test code=IG#) 0.03 10\S\3/uL 0.00-0.06 NRBC # (test code=NRBC#) 0.00 10\S\3/uL 0.00-0.01 NEUTROPH % (test code=NE%) 41.1 % 35.0-73.0 LYMPH % (test code=LY%) 46.6 % 20.0-55.0 MONO % (test code=MO%) 8.6 % 2.5-10.0 EOSINOPH % (test code=EO%) 2.5 % 0.0-5.0 BASOPHIL % (test code=BA%) 0.6 % 0.0-2.0 IG % (test code=IG%) 0.6 % 0.0-0.8 NRBC% (test code=NRBC%) 0.0 % 0.0-0.2 MANDIFF (test code=WMDIFF) NO NO RBC MORPH (test code=WRBCMOR) NORMAL GLUCOMETER GLUCOSE- LAB USE [id number] 21:33:00* Test Item Value Reference Range Comments GLUCOMETER (test code=GMG) 122 mg/dL 70-100 Meter ID: [id number]: [id number] KAITLYNN AWOLOLA GLUCOMETER GLUCOSE- LAB USE [id number] 16:30:00* Test Item Value Reference Range Comments GLUCOMETER (test code=GMG) 205 mg/dL 70-100 CLEANED METERMeter ID: [id number]: 0832 FLORA FORIO GLUCOMETER GLUCOSE- LAB USE [id number] 11:36:00* Test Item Value Reference Range Comments GLUCOMETER (test code=GMG) 122 mg/dL 70-100 CLEANED METERMeter ID: [id number]: [address] ABDOMEN AND PELVIS WITHOUT CONTRAST *WW*2017-09-12 10:03:36CT abdomen and pelvis without contrastLocation Code: K0HYFLWCMI HISTORY: [id number]: Crohn's diseaseCOMPARISON: 08/06/17Technique: Helical CT of the abdomen and pelvis was performed withoutintravenous contrast. Thin section axial, sagittal and coronal images wereobtained. One or more of the following dose reduction techniques were used:Automated exposure control, adjustment of the mA and or KV according to patientsize, and/or utilization of iterative reconstruction technique. DLP: 603.44mGy-cm.FINDINGS:The lung bases are clear. Mild cardiomegaly.The liver, adrenal glands, pancreas, and spleen are unremarkable. Thegallbladder is surgically absent. Horseshoe kidney again seen in the upperpelvis without stones or obstruction.There is some straightening of a loop of terminal ileum but without significantsurrounding inflammation. This may simply represent a normal course althoughinvolvement with known Crohn's disease cannot be excluded. No significantmesenteric inflammation, abscess, or free air.The abdominal aorta is normal in caliber and contour. There is noretroperitoneal mass or fluid collection. The urinary bladder is unremarkable.There is no pelvic mass or fluid collection. No thickened appendix noted.The bones, skin, and surrounding soft tissues are unremarkable.IMPRESSION: 1. Straightening of a loop of terminal ileum may represent a normal variationversus mild involvement with known Crohn's disease. No significant inflammationnoted.2. Horseshoe kidney without obstruction or stones. Previous cholecystectomy.COMPREHENSIVE METABOLIC FULTON 2017-09-12 06:30:00* Test Item Value Reference Range Comments GLUCOSE (test code=06D) 125 mg/dL 75-100 SODIUM (test code=01A) 135 mmol/L 136-145 POTASSIUM (test code=01B) 4.4 mmol/L 3.6-5.1 CHLORIDE (test code=04A) 100 mmol/L 98-107 CO2 (test code=02A) 25 mmol/L 22-32 ANION GAP (test code=ANG) 14.4 mmol/L BUN (test code=05D) 18 mg/dL 7-18 CREATININE (test code=03E) 5.4 mg/dL 0.4-1.1 BUN/CREA (test code=BCR) 3 12-20 CALCIUM (test code=09D) 7.7 mg/dL 8.3-9.5 BILI TOTAL (test code=11A) 0.6 mg/dL 0.2-1.0 PROTEIN (test code=07D) 7.1 g/dL 6.4-8.2 ALBUMIN (test code=08D) 3.2 g/dL 3.5-4.8 GLOBULIN (test code=GLB) 3.9 g/dL 1.5-3.8 ALB/GLOB (test code=AGRR) 0.8 1.0-2.6 ALK PHOS (test code=35A) 112 IU/L 42-121 AST (test code=30A) 11 IU/L <=42 ALT (test code=31A) 11 IU/L <=78 CBC (INCLUDES AUTOMATED DIFFERENTIAL)*[id number] 06:08:00* Test Item Value Reference Range Comments WBC (test code=WBC) 4.4 10\S\3/uL 4.5-11.0 RBC (test code=RBC) 3.46 10\S\6/uL 4.30-5.70 HGB (test code=HBG) 10.2 g/dL 12.0-15.5 HCT (test code=HCT) 32.2 % 35.0-44.0 MCV (test code=MCV) 93.1 fL 81.0-99.0 MCH (test code=MCH) 29.5 pg 27.0-31.0 MCHC (test code=MCHC) 31.7 g/dL 32.0-36.0 RDW (test code=RDW) 16.2 % 11.5-14.5 PLT (test code=PLT) 219 10\S\3/uL 130-400 MPV (test code=MPV) 9.5 fL 9.4-12.4 NEUTROP # (test code=NE#) 3.3 10\S\3/uL 1.6-8.0 LYMPH # (test code=LY#) 0.9 10\S\3/uL 1.1-3.5 MONOCYTE # (test code=MO#) 0.2 10\S\3/uL 0.0-1.1 EOSINOPH # (test code=EO#) 0.0 10\S\3/uL 0.0-0.7 BASOPHIL # (test code=BA#) 0.0 10\S\3/uL 0.0-0.3 IG # (test code=IG#) 0.04 10\S\3/uL 0.00-0.06 NRBC # (test code=NRBC#) 0.00 10\S\3/uL 0.00-0.01 NEUTROPH % (test code=NE%) 73.3 % 35.0-73.0 LYMPH % (test code=LY%) 21.2 % 20.0-55.0 MONO % (test code=MO%) 4.1 % 2.5-10.0 EOSINOPH % (test code=EO%) 0.0 % 0.0-5.0 BASOPHIL % (test code=BA%) 0.5 % 0.0-2.0 IG % (test code=IG%) 0.9 % 0.0-0.8 NRBC% (test code=NRBC%) 0.0 % 0.0-0.2 MANDIFF (test code=WMDIFF) NO NO RBC MORPH (test code=WRBCMOR) NORMAL GLUCOMETER GLUCOSE- LAB USE [id number] 21:45:00* Test Item Value Reference Range Comments GLUCOMETER (test code=GMG) 111 mg/dL 70-100 CLEANED METERMeter ID: [id number]: [id number] DARCIE KENDRICK HEPATITIS B SURFACE ANTIBODY *WW*2017-09-11 18:29:00* Test Item Value Reference Range Comments HBSAB (test code=HBSAB) REACTIVE REACTIVE HEPATITIS B SURFACE ANTIGEN *WW*2017-09-11 18:08:00* Test Item Value Reference Range Comments HBSAG (test code=HBSAG) NON-REACTIVE NON-REACTIVE GLUCOMETER GLUCOSE- LAB USE [id number] 16:26:00* Test Item Value Reference Range Comments GLUCOMETER (test code=GMG) 76 mg/dL 70-100 CLEANED METERMeter ID: [id number]: 0832 FLORA FIELDSGet Fractal GLUCOMETER GLUCOSE- LAB USE [id number] 11:32:00* Test Item Value Reference Range Comments GLUCOMETER (test code=GMG) 178 mg/dL 70-100 CLEANED METERMeter ID: [id number]: 0832 FLORA CORDOVA COMPREHENSIVE METABOLIC FULTON *WW*2017-09-11 06:20:00* Test Item Value Reference Range Comments GLUCOSE (test code=06D) 143 mg/dL 75-100 SODIUM (test code=01A) 138 mmol/L 136-145 POTASSIUM (test code=01B) 4.4 mmol/L 3.6-5.1 CHLORIDE (test code=04A) 100 mmol/L 98-107 CO2 (test code=02A) 27 mmol/L 22-32 ANION GAP (test code=ANG) 15.4 mmol/L BUN (test code=05D) 36 mg/dL 7-18 CREATININE (test code=03E) 8.0 mg/dL 0.4-1.1 BUN/CREA (test code=BCR) 5 12-20 CALCIUM (test code=09D) 8.1 mg/dL 8.3-9.5 BILI TOTAL (test code=11A) 0.3 mg/dL 0.2-1.0 PROTEIN (test code=07D) 7.1 g/dL 6.4-8.2 ALBUMIN (test code=08D) 3.2 g/dL 3.5-4.8 GLOBULIN (test code=GLB) 3.9 g/dL 1.5-3.8 ALB/GLOB (test code=AGRR) 0.8 1.0-2.6 ALK PHOS (test code=35A) 123 IU/L 42-121 AST (test code=30A) 6 IU/L <=42 ALT (test code=31A) 13 IU/L <=78 CBC (INCLUDES AUTOMATED DIFFERENTIAL)*[id number] 06:06:00* Test Item Value Reference Range Comments WBC (test code=WBC) 6.5 10\S\3/uL 4.5-11.0 RBC (test code=RBC) 3.45 10\S\6/uL 4.30-5.70 HGB (test code=HBG) 10.2 g/dL 12.0-15.5 HCT (test code=HCT) 32.1 % 35.0-44.0 MCV (test code=MCV) 93.0 fL 81.0-99.0 MCH (test code=MCH) 29.6 pg 27.0-31.0 MCHC (test code=MCHC) 31.8 g/dL 32.0-36.0 RDW (test code=RDW) 16.6 % 11.5-14.5 PLT (test code=PLT) 231 10\S\3/uL 130-400 MPV (test code=MPV) 9.9 fL 9.4-12.4 NEUTROP # (test code=NE#) 3.6 10\S\3/uL 1.6-8.0 LYMPH # (test code=LY#) 2.3 10\S\3/uL 1.1-3.5 MONOCYTE # (test code=MO#) 0.5 10\S\3/uL 0.0-1.1 EOSINOPH # (test code=EO#) 0.1 10\S\3/uL 0.0-0.7 BASOPHIL # (test code=BA#) 0.1 10\S\3/uL 0.0-0.3 IG # (test code=IG#) 0.05 10\S\3/uL 0.00-0.06 NRBC # (test code=NRBC#) 0.02 10\S\3/uL 0.00-0.01 NEUTROPH % (test code=NE%) 55.7 % 35.0-73.0 LYMPH % (test code=LY%) 34.6 % 20.0-55.0 MONO % (test code=MO%) 7.2 % 2.5-10.0 EOSINOPH % (test code=EO%) 0.9 % 0.0-5.0 BASOPHIL % (test code=BA%) 0.8 % 0.0-2.0 IG % (test code=IG%) 0.8 % 0.0-0.8 NRBC% (test code=NRBC%) 0.3 % 0.0-0.2 MANDIFF (test code=WMDIFF) NO NO RBC MORPH (test code=WRBCMOR) NORMAL GLUCOMETER GLUCOSE- LAB USE [id number] 20:04:00* Test Item Value Reference Range Comments GLUCOMETER (test code=GMG) 183 mg/dL 70-100 Meter ID: [id number]: 4268 ESTERLITA RORY GLUCOMETER GLUCOSE- LAB USE [id number] 16:19:00* Test Item Value Reference Range Comments GLUCOMETER (test code=GMG) 175 mg/dL 70-100 CLEANED METERMeter ID: [id number]: 2349 JANELLE THAMPI GLUCOMETER GLUCOSE- LAB USE [id number] 12:32:00* Test Item Value Reference Range Comments GLUCOMETER (test code=GMG) 61 mg/dL 70-100 CLEANED METERMeter ID: [id number]: 2349 JANELLE THAMPI GLUCOMETER GLUCOSE- LAB USE [id number] 12:15:00* Test Item Value Reference Range Comments GLUCOMETER (test code=GMG) 59 mg/dL 70-100 CLEANED METERMeter ID: [id number]: 2349 JANELLE THAMPI GLUCOMETER GLUCOSE- LAB USE [id number] 05:20:00* Test Item Value Reference Range Comments GLUCOMETER (test code=GMG) 221 mg/dL 70-100 Meter ID: [id number]: 5304 JOHN MATTHEW GLUCOMETER GLUCOSE- LAB USE [id number] 22:02:00* Test Item Value Reference Range Comments GLUCOMETER (test code=GMG) 315 mg/dL 70-100 Meter ID: [id number]: 5304 JOHN MATTHEW AMYLASE AND LIPASE 2017-09-09 18:08:00* Test Item Value Reference Range Comments AMYLASE (test code=10A) 64 U/L 28-100 LIPASE (test code=60A) 155 IU/L 73-393 COMPREHENSIVE METABOLIC FULTON *WW*2017-09-09 18:08:00* Test Item Value Reference Range Comments GLUCOSE (test code=06D) 232 mg/dL 75-100 SODIUM (test code=01A) 133 mmol/L 136-145 POTASSIUM (test code=01B) 3.9 mmol/L 3.6-5.1 CHLORIDE (test code=04A) 95 mmol/L 98-107 CO2 (test code=02A) 25 mmol/L 22-32 ANION GAP (test code=ANG) 16.9 mmol/L BUN (test code=05D) 17 mg/dL 7-18 CREATININE (test code=03E) 4.5 mg/dL 0.4-1.1 BUN/CREA (test code=BCR) 4 12-20 CALCIUM (test code=09D) 8.7 mg/dL 8.3-9.5 BILI TOTAL (test code=11A) 0.3 mg/dL 0.2-1.0 PROTEIN (test code=07D) 9.4 g/dL 6.4-8.2 ALBUMIN (test code=08D) 4.1 g/dL 3.5-4.8 GLOBULIN (test code=GLB) 5.3 g/dL 1.5-3.8 ALB/GLOB (test code=AGRR) 0.8 1.0-2.6 ALK PHOS (test code=35A) 181 IU/L 42-121 AST (test code=30A) 14 IU/L <=42 ALT (test code=31A) 20 IU/L <=78 MAGNESIUM WW2017-09-09 18:08:00* Test Item Value Reference Range Comments MAGNESIUM (test code=48A) 2.1 mg/dL 1.8-2.4 CBC (INCLUDES AUTOMATED DIFFERENTIAL)*[id number] 17:58:00* Test Item Value Reference Range Comments WBC (test code=WBC) 9.5 10\S\3/uL 4.5-11.0 RBC (test code=RBC) 4.23 10\S\6/uL 4.30-5.70 HGB (test code=HBG) 12.5 g/dL 12.0-15.5 HCT (test code=HCT) 37.2 % 35.0-44.0 MCV (test code=MCV) 87.9 fL 81.0-99.0 MCH (test code=MCH) 29.6 pg 27.0-31.0 MCHC (test code=MCHC) 33.6 g/dL 32.0-36.0 RDW (test code=RDW) 15.9 % 11.5-14.5 PLT (test code=PLT) 257 10\S\3/uL 130-400 MPV (test code=MPV) 9.6 fL 9.4-12.4 NEUTROP # (test code=NE#) 7.7 10\S\3/uL 1.6-8.0 LYMPH # (test code=LY#) 1.1 10\S\3/uL 1.1-3.5 MONOCYTE # (test code=MO#) 0.4 10\S\3/uL 0.0-1.1 EOSINOPH # (test code=EO#) 0.2 10\S\3/uL 0.0-0.7 BASOPHIL # (test code=BA#) 0.1 10\S\3/uL 0.0-0.3 IG # (test code=IG#) 0.14 10\S\3/uL 0.00-0.06 NRBC # (test code=NRBC#) 0.00 10\S\3/uL 0.00-0.01 NEUTROPH % (test code=NE%) 80.5 % 35.0-73.0 LYMPH % (test code=LY%) 11.4 % 20.0-55.0 MONO % (test code=MO%) 4.3 % 2.5-10.0 EOSINOPH % (test code=EO%) 1.7 % 0.0-5.0 BASOPHIL % (test code=BA%) 0.6 % 0.0-2.0 IG % (test code=IG%) 1.5 % 0.0-0.8 NRBC% (test code=NRBC%) 0.0 % 0.0-0.2 MANDIFF (test code=WMDIFF) NO NO RBC MORPH (test code=WRBCMOR) NORMAL U/S VENOUS DOPPLER LT UPPER EXT2017-08-06 21:19:01EXAM: Left upper extremity duplex venous ultrasoundLocation: R16 INDICATION: Left arm edema, recent fistula placedCOMPARISON: NoneDISCUSSION: Montez scale, color Doppler, and spectral waveform analysis imagesof the left upper extremity deep venous system were performed.The internal jugular, subclavian, axillary, brachial, basilic, cephalic, mediancubital, and radial and ulnar veins are patent with flow and compressible whereappropriate. The fistula is patent. In the upper arm posterior to the fistula,there is a slightly complex hypoechoic to anechoic fluid collection measuring4.1 x 1.7 x 1.8 cm, without internal flow. This is consistent with a hematoma.IMPRESSION: 1. No evidence of deep venous thrombosis.2. The fistula is patent.3. Slightly complex fluid collection measuring 4.1 x 1.7 x 1.8 cm slightlyposterior to the fistula, consistent with a hematoma. SERUM MONOCLONAL *WW*2017-08-06 20:31:00* Test Item Value Reference Range Comments PREG SRM (test code=PGS) NEGATIVE NEGATIVE PRO TIME AND PTT *WW*2017-08-06 20:19:00* Test Item Value Reference Range Comments PT (test code=TT) 11.7 s 9.8-13.6 INR (test code=INR) 1.0 INRH (test code=INRH) SUGGESTED THERAPEUTIC RANGE FOR INR: 2.5 - 3.5 For Patients with Prosthetic Valves or Patients with recurrent Thromboembolic Events 2.0 - 3.0 For Most Other Applications PTT (test code=PTT) 32.3 s 20.2-38.0 PTTH (test code=PTTH) To monitor the effectiveness of heparin, we offer the Anti-Xa (Heparin Assay). It can be used for either unfractionated or LMW Heparin. Order Code is ANTI-XA BRAIN NATRIURETIC PROTEIN 2017-08-06 20:18:00* Test Item Value Reference Range Comments proBNP (test code=PBNP) 2959 pg/mL 0-125 AMYLASE AND LIPASE 2017-08-06 20:15:00* Test Item Value Reference Range Comments AMYLASE (test code=10A) 91 U/L 28-100 LIPASE (test code=60A) 119 IU/L 73-393 COMPREHENSIVE METABOLIC FULTON *WW*2017-08-06 20:15:00* Test Item Value Reference Range Comments GLUCOSE (test code=06D) 264 mg/dL 75-100 SODIUM (test code=01A) 137 mmol/L 136-145 POTASSIUM (test code=01B) 3.4 mmol/L 3.6-5.1 CHLORIDE (test code=04A) 95 mmol/L 98-107 CO2 (test code=02A) 33 mmol/L 22-32 ANION GAP (test code=ANG) 12.4 mmol/L BUN (test code=05D) 24 mg/dL 7-18 CREATININE (test code=03E) 6.1 mg/dL 0.4-1.1 BUN/CREA (test code=BCR) 4 12-20 CALCIUM (test code=09D) 8.3 mg/dL 8.3-9.5 BILI TOTAL (test code=11A) 0.3 mg/dL 0.2-1.0 PROTEIN (test code=07D) 7.9 g/dL 6.4-8.2 ALBUMIN (test code=08D) 3.4 g/dL 3.5-4.8 GLOBULIN (test code=GLB) 4.5 g/dL 1.5-3.8 ALB/GLOB (test code=AGRR) 0.7 1.0-2.6 ALK PHOS (test code=35A) 148 IU/L 42-121 AST (test code=30A) 11 IU/L <=42 ALT (test code=31A) 17 IU/L <=78 MAGNESIUM 2017-08-06 20:10:00* Test Item Value Reference Range Comments MAGNESIUM (test code=48A) 1.9 mg/dL 1.8-2.4 CBC (INCLUDES AUTOMATED DIFFERENTIAL)*[id number] 20:03:00* Test Item Value Reference Range Comments WBC (test code=WBC) 5.4 10\S\3/uL 4.5-11.0 RBC (test code=RBC) 3.05 10\S\6/uL 4.30-5.70 HGB (test code=HBG) 8.7 g/dL 12.0-15.5 HCT (test code=HCT) 28.0 % 35.0-44.0 MCV (test code=MCV) 91.8 fL 81.0-99.0 MCH (test code=MCH) 28.5 pg 27.0-31.0 MCHC (test code=MCHC) 31.1 g/dL 32.0-36.0 RDW (test code=RDW) 17.7 % 11.5-14.5 PLT (test code=PLT) 414 10\S\3/uL 130-400 MPV (test code=MPV) 8.9 fL 9.4-12.4 NEUTROP # (test code=NE#) 3.2 10\S\3/uL 1.6-8.0 LYMPH # (test code=LY#) 1.5 10\S\3/uL 1.1-3.5 MONOCYTE # (test code=MO#) 0.5 10\S\3/uL 0.0-1.1 EOSINOPH # (test code=EO#) 0.2 10\S\3/uL 0.0-0.7 BASOPHIL # (test code=BA#) 0.0 10\S\3/uL 0.0-0.3 IG # (test code=IG#) 0.04 10\S\3/uL 0.00-0.06 NRBC # (test code=NRBC#) 0.00 10\S\3/uL 0.00-0.01 NEUTROPH % (test code=NE%) 58.8 % 35.0-73.0 LYMPH % (test code=LY%) 28.0 % 20.0-55.0 MONO % (test code=MO%) 8.7 % 2.5-10.0 EOSINOPH % (test code=EO%) 3.1 % 0.0-5.0 BASOPHIL % (test code=BA%) 0.7 % 0.0-2.0 IG % (test code=IG%) 0.7 % 0.0-0.8 NRBC% (test code=NRBC%) 0.0 % 0.0-0.2 MANDIFF (test code=WMDIFF) NO NO RBC MORPH (test code=WRBCMOR) NORMAL CT ABDOMEN AND PELVIS WITHOUT CONTRAST *STEPH*2017-08-06 19:43:29EXAM: CT abdomen and pelvis without contrastLocation: R16 INDICATION: Epigastric and periumbilical painCOMPARISON: CT abdomen and pelvis on 08/04/2017TECHNIQUE: Axial images of the abdomen and pelvis were obtained withoutcontrast. Coronal and sagittal reformatted images were performedDISCUSSION:Lower thorax: Unremarkable.Hepatobiliary: Unremarkable. No biliary ductal dilatation.Gallbladder: Surgically absent.Spleen: Unremarkable.Pancreas: Unremarkable.Kidneys: A horseshoe kidney is identified. No renal calculi, hydronephrosis,or evidence of solid renal mass is seen. The hyperdense foci associated withthe kidneys on the prior CT are no longer seen, and given the resolution ofhyperdense material in the bladder, probably reflects interval clearance of IVcontrast.Adrenals: Unremarkable.Lymph nodes: No lymphadenopathy.Peritoneum/retroperitoneum: No intraabdominal free air or free fluid.Vessels: Unremarkable.Pelvic organs/bladder: Mild diffuse bladder wall thickening is greater thanexpected low bladder volume. The uterus and adnexa are unremarkable.Bowel: Enteric contrast within the colon is probably from the previous CT on08/04/2017. The appendix is normal. No abnormal bowel wall thickening or bowelobstruction is seen.Bones/soft tissues: No fracture or evidence of bony neoplastic process. L5 ismostly sacralized.IMPRESSION:1. Normal appendix. No evidence of acute abdominal inflammation or bowelobstruction.2. Interval resolution of hyperdense foci associated with the horseshoe kidneyand within the bladder lumen. This is consistent with interval clearance ofpreviously administered IV contrast.3. Mild diffuse bladder wall thickening is greater than expected for lowbladder volume, and could be seen with cystitis in the appropriate clinicalscenario. Correlation with urinalysis is suggested.4. Status post cholecystectomy.One or more of the following dose reduction techniques were used: Automatedexposure control, adjustment of the mA and/or kV according to patient size,and/or utilization of iterative reconstruction technique.CT ABDOMEN AND PELVIS WITHOUT CONTRAST *STEPH*2017-08-04 17:54:49EXAM: CT abdomen and pelvis with contrastLocation: R16 INDICATION: Abdominal pain, nausea and vomitingCOMPARISON: CT abdomen and pelvis on 2017TECHNIQUE: Axial images of the abdomen and pelvis were obtained withoutcontrast. Coronal and sagittal reformatted images were performed.DISCUSSION:Lower thorax: A central venous catheter tip is in the right ventricle.Hepatobiliary: Unremarkable. No biliary ductal dilatation.Gallbladder: Absent.Spleen: Unremarkable.Pancreas: Unremarkable.Kidneys: A horseshoe kidney is noted. There are several small hyperdense fociassociated with the kidneys which appear similar to the previous exam, possiblyhyperdense cysts. No renal calculi or hydronephrosis is seen.Adrenals: Unremarkable.Lymph nodes: No lymphadenopathy.Peritoneum/ retroperitoneum: No intraabdominal free air or free fluid.Vessels: Unremarkable.Pelvic organs/bladder: There is hyperdensity in the bladder lumen , presumablyfrom excreted contrast. This could alternatively represent gross blood in theurine. Correlation with history and/or urinalysis is needed. The uterus andovaries are unremarkable.Bowel: The appendix is normal. No abnormal bowel wall thickening or bowelobstruction is seen.Bones/soft tissues: No fracture or evidence of bony neoplastic process. Nohernia is seen.IMPRESSION:1. Normal appendix. No evidence of acute abdominal inflammation or bowelobstruction.2. Hyperdense material in the bladder lumen presumably reflects excretedcontrast from a recent contrast exam. This could alternatively represent grosshematuria. Correlation with history and/or urinalysis is suggested.3. Horseshoe kidney. There are several small hyperdense foci associated withthe kidneys, possibly hyperdense cysts. Outpatient renal ultrasound follow-upshould be considered.4. Status post cholecystectomy.One or more of the following dose reduction techniques were used: Automatedexposure control, adjustment of the mA and/or kV according to patient size,and/or utilization of iterative reconstruction technique.DLP: 773 mGy-cm CTDI 16.3 mGyCOMPREHENSIVE METABOLIC FULTON *WW*2017-08-04 17:48:00* Test Item Value Reference Range Comments GLUCOSE (test code=06D) 317 mg/dL 75-100 SODIUM (test code=01A) 134 mmol/L 136-145 POTASSIUM (test code=01B) 3.8 mmol/L 3.6-5.1 CHLORIDE (test code=04A) 96 mmol/L 98-107 CO2 (test code=02A) 30 mmol/L 22-32 ANION GAP (test code=ANG) 11.8 mmol/L BUN (test code=05D) 22 mg/dL 7-18 CREATININE (test code=03E) 4.3 mg/dL 0.4-1.1 BUN/CREA (test code=BCR) 5 12-20 CALCIUM (test code=09D) 7.3 mg/dL 8.3-9.5 BILI TOTAL (test code=11A) 0.3 mg/dL 0.2-1.0 PROTEIN (test code=07D) 6.8 g/dL 6.4-8.2 ALBUMIN (test code=08D) 3.0 g/dL 3.5-4.8 GLOBULIN (test code=GLB) 3.8 g/dL 1.5-3.8 ALB/GLOB (test code=AGRR) 0.8 1.0-2.6 ALK PHOS (test code=35A) 137 IU/L 42-121 AST (test code=30A) 8 IU/L <=42 ALT (test code=31A) 16 IU/L <=78 AMYLASE AND LIPASE 2017-08-04 17:32:00* Test Item Value Reference Range Comments AMYLASE (test code=10A) 55 U/L 28-100 LIPASE (test code=60A) 128 IU/L 73-393 SERUM MONOCLONAL 2017-08-04 17:21:00* Test Item Value Reference Range Comments PREG SRM (test code=PGS) NEGATIVE NEGATIVE CBC (INCLUDES AUTOMATED DIFFERENTIAL)*[id number] 17:18:00* Test Item Value Reference Range Comments WBC (test code=WBC) 5.9 10\S\3/uL 4.5-11.0 RBC (test code=RBC) 2.74 10\S\6/uL 4.30-5.70 HGB (test code=HBG) 7.7 g/dL 12.0-15.5 HCT (test code=HCT) 25.0 % 35.0-44.0 MCV (test code=MCV) 91.2 fL 81.0-99.0 MCH (test code=MCH) 28.1 pg 27.0-31.0 MCHC (test code=MCHC) 30.8 g/dL 32.0-36.0 RDW (test code=RDW) 16.9 % 11.5-14.5 PLT (test code=PLT) 374 10\S\3/uL 130-400 MPV (test code=MPV) 9.6 fL 9.4-12.4 NEUTROP # (test code=NE#) 3.7 10\S\3/uL 1.6-8.0 LYMPH # (test code=LY#) 1.5 10\S\3/uL 1.1-3.5 MONOCYTE # (test code=MO#) 0.4 10\S\3/uL 0.0-1.1 EOSINOPH # (test code=EO#) 0.2 10\S\3/uL 0.0-0.7 BASOPHIL # (test code=BA#) 0.0 10\S\3/uL 0.0-0.3 IG # (test code=IG#) 0.04 10\S\3/uL 0.00-0.06 NRBC # (test code=NRBC#) 0.00 10\S\3/uL 0.00-0.01 NEUTROPH % (test code=NE%) 63.1 % 35.0-73.0 LYMPH % (test code=LY%) 24.9 % 20.0-55.0 MONO % (test code=MO%) 7.2 % 2.5-10.0 EOSINOPH % (test code=EO%) 3.6 % 0.0-5.0 BASOPHIL % (test code=BA%) 0.5 % 0.0-2.0 IG % (test code=IG%) 0.7 % 0.0-0.8 NRBC% (test code=NRBC%) 0.0 % 0.0-0.2 MANDIFF (test code=WMDIFF) NO NO RBC MORPH (test code=WRBCMOR) NORMAL XR CHEST 1 VIEW PORTABLE *WW*2017-08-04 16:55:08STUDY: Chest radiographHISTORY: End-stage renal disease.COMPARISON: 07/08/17TECHNIQUE: Frontal view of the chest.LOCATION: S80LUDOUOMM:There is a dual-lumen tunneled left internal jugular venous catheter with tipsprojecting at the cavoatrial junction and right atrium.The cardiac and mediastinal silhouette is unremarkable. There is no pleuraleffusion, pneumothorax or focal consolidation.No acute osseous abnormalities are identified.IMPRESSION:1. No radiographic evidence for acute pulmonary abnormality.COMPREHENSIVE METABOLIC FUTLON 2017-07-30 06:04:00* Test Item Value Reference Range Comments GLUCOSE (test code=06D) 331 mg/dL 75-100 SODIUM (test code=01A) 131 mmol/L 136-145 POTASSIUM (test code=01B) 4.3 mmol/L 3.6-5.1 CHLORIDE (test code=04A) 93 mmol/L 98-107 CO2 (test code=02A) 22 mmol/L 22-32 ANION GAP (test code=ANG) 20.3 mmol/L BUN (test code=05D) 43 mg/dL 7-18 CREATININE (test code=03E) 11.0 mg/dL 0.4-1.1 BUN/CREA (test code=BCR) 4 12-20 CALCIUM (test code=09D) 7.5 mg/dL 8.3-9.5 BILI TOTAL (test code=11A) 0.6 mg/dL 0.2-1.0 PROTEIN (test code=07D) 7.5 g/dL 6.4-8.2 ALBUMIN (test code=08D) 3.5 g/dL 3.5-4.8 GLOBULIN (test code=GLB) 4.0 g/dL 1.5-3.8 ALB/GLOB (test code=AGRR) 0.9 1.0-2.6 ALK PHOS (test code=35A) 146 IU/L 42-121 AST (test code=30A) 10 IU/L <=42 ALT (test code=31A) 13 IU/L <=78 AMYLASE AND LIPASE 2017-07-30 05:44:00* Test Item Value Reference Range Comments AMYLASE (test code=10A) 62 U/L 28-100 LIPASE (test code=60A) 134 IU/L 73-393 CBC (INCLUDES AUTOMATED DIFFERENTIAL)*[id number] 05:33:00* Test Item Value Reference Range Comments WBC (test code=WBC) 6.4 10\S\3/uL 4.5-11.0 RBC (test code=RBC) 3.03 10\S\6/uL 4.30-5.70 HGB (test code=HBG) 8.7 g/dL 12.0-15.5 HCT (test code=HCT) 27.5 % 35.0-44.0 MCV (test code=MCV) 90.8 fL 81.0-99.0 MCH (test code=MCH) 28.7 pg 27.0-31.0 MCHC (test code=MCHC) 31.6 g/dL 32.0-36.0 RDW (test code=RDW) 17.2 % 11.5-14.5 PLT (test code=PLT) 254 10\S\3/uL 130-400 MPV (test code=MPV) 9.5 fL 9.4-12.4 NEUTROP # (test code=NE#) 4.5 10\S\3/uL 1.6-8.0 LYMPH # (test code=LY#) 1.3 10\S\3/uL 1.1-3.5 MONOCYTE # (test code=MO#) 0.3 10\S\3/uL 0.0-1.1 EOSINOPH # (test code=EO#) 0.2 10\S\3/uL 0.0-0.7 BASOPHIL # (test code=BA#) 0.1 10\S\3/uL 0.0-0.3 IG # (test code=IG#) 0.02 10\S\3/uL 0.00-0.06 NRBC # (test code=NRBC#) 0.00 10\S\3/uL 0.00-0.01 NEUTROPH % (test code=NE%) 71.1 % 35.0-73.0 LYMPH % (test code=LY%) 20.2 % 20.0-55.0 MONO % (test code=MO%) 4.5 % 2.5-10.0 EOSINOPH % (test code=EO%) 3.1 % 0.0-5.0 BASOPHIL % (test code=BA%) 0.8 % 0.0-2.0 IG % (test code=IG%) 0.3 % 0.0-0.8 NRBC% (test code=NRBC%) 0.0 % 0.0-0.2 MANDIFF (test code=WMDIFF) NO NO RBC MORPH (test code=WRBCMOR) NORMAL GLUCOMETER GLUCOSE- LAB USE [id number] 05:02:00* Test Item Value Reference Range Comments GLUCOMETER (test code=GMG) 323 mg/dL 70-100 Meter ID: [id number]: [id number] ABDOMEN AND PELVIS WITHOUT CONTRAST *WW*2017-07-28 22:50:53CT SCAN OF THE ABDOMEN AND PELVIS WITHOUT CONTRASTAfter-hours services performed 07/28/2017 at 2220 hoursLocation: [id number] HISTORY: Abdominal pain end-stage renal disease and leukocytosis.History of Crohn's disease.TECHNIQUE: Helical CT of the abdomen and pelvis was performed without IVcontrast without complication. Coronal and Sagittal reconstructions wereobtained. Up-to-date CT equipment, automatic exposure control, and radiationdose reduction techniques were utilized.DLP: 417 mGY*cmComparison study CT scan abdomen 07/08/17FINDINGS:A central line is seen extending into the right atrium.The visualized lung bases are clear. No evidence of pleural effusion. Liveris normal in size without intrahepatic biliary dilatation or focal mass. Thegallbladder is surgically absent. The pancreas, spleen, and adrenal glands arenormal. There is a horseshoe kidney normal variation positioned relatively lowin the abdomen. There is no evidence of hydronephrosis, solid renal mass , orobstructing kidney stone. There is no evidence of pancreatic mass, atrophy,calcification. There is no abdominal free fluid or adenopathy.The bowel is unremarkable without wall thickening or dilatation. There is noevidence of appendicitis, diverticulitis, colitis or bowel obstruction. Normalair-filled appendix is seen on coronal image 41 and axial image 55. There is amild constipation.In the pelvis, there is no free fluid or adenopathy present. The bladder andureters are normal. Uterus is unremarkable. The right ovary is relatively prominent and may containa 2 cm follicular cyst within it. It is best seen on axial image 67. Leftadnexa is unremarkable. There is no obvious abscess. No free air.The vascular, bony and muscular structures are unremarkable. IMPRESSION:1. Mild constipation. Otherwise the bowel is unremarkable. No evidence ofCrohn's flare.2. Right ovary mildly prominent with a possible 2 cm cyst within it. Pelvicultrasound recommended.GLUCOMETER GLUCOSE- LAB USE [id number] 21:34: 00* Test Item Value Reference Range Comments GLUCOMETER (test code=GMG) 222 mg/dL 70-100 Meter ID: [id number]: [id number] ASHIA HOLT CBC (INCLUDES AUTOMATED DIFFERENTIAL)*[id number] 21:33:00* Test Item Value Reference Range Comments WBC (test code=WBC) 10.5 10\S\3/uL 4.5-11.0 RBC (test code=RBC) 3.24 10\S\6/uL 4.30-5.70 HGB (test code=HBG) 9.3 g/dL 12.0-15.5 HCT (test code=HCT) 29.0 % 35.0-44.0 MCV (test code=MCV) 89.5 fL 81.0-99.0 MCH (test code=MCH) 28.7 pg 27.0-31.0 MCHC (test code=MCHC) 32.1 g/dL 32.0-36.0 RDW (test code=RDW) 17.9 % 11.5-14.5 PLT (test code=PLT) 334 10\S\3/uL 130-400 MPV (test code=MPV) 8.7 fL 9.4-12.4 NEUTROP # (test code=NE#) 8.4 10\S\3/uL 1.6-8.0 LYMPH # (test code=LY#) 1.7 10\S\3/uL 1.1-3.5 MONOCYTE # (test code=MO#) 0.2 10\S\3/uL 0.0-1.1 EOSINOPH # (test code=EO#) 0.0 10\S\3/uL 0.0-0.7 BASOPHIL # (test code=BA#) 0.0 10\S\3/uL 0.0-0.3 IG # (test code=IG#) 0.00 10\S\3/uL 0.00-0.06 NRBC # (test code=NRBC#) 0.00 10\S\3/uL 0.00-0.01 NEUTROPH % (test code=NE%) 79.9 % 35.0-73.0 LYMPH % (test code=LY%) 16.7 % 20.0-55.0 MONO % (test code=MO%) 2.4 % 2.5-10.0 EOSINOPH % (test code=EO%) 0.0 % 0.0-5.0 BASOPHIL % (test code=BA%) 0.0 % 0.0-2.0 IG % (test code=IG%) 0.0 % 0.0-0.8 NRBC% (test code=NRBC%) 0.0 % 0.0-0.2 MANDIFF (test code=WMDIFF) NO NO RBC MORPH (test code=WRBCMOR) NORMAL PRO TIME AND PTT *WW*2017-07-28 20:19:00* Test Item Value Reference Range Comments PT (test code=TT) 12.0 s 9.8-13.6 INR (test code=INR) 1.1 INRH (test code=INRH) SUGGESTED THERAPEUTIC RANGE FOR INR: 2.5 - 3.5 For Patients with Prosthetic Valves or Patients with recurrent Thromboembolic Events 2.0 - 3.0 For Most Other Applications PTT (test code=PTT) 128.0 s 20.2-38.0 PTTH (test code=PTTH) To monitor the effectiveness of heparin, we offer the Anti-Xa (Heparin Assay). It can be used for either unfractionated or LMW Heparin. Order Code is ANTI-XA COMPREHENSIVE METABOLIC FULTON *WW*2017-07-28 20:06:00* Test Item Value Reference Range Comments GLUCOSE (test code=06D) 467 mg/dL 75-100 SODIUM (test code=01A) 131 mmol/L 136-145 POTASSIUM (test code=01B) 4.6 mmol/L 3.6-5.1 CHLORIDE (test code=04A) 88 mmol/L 98-107 CO2 (test code=02A) 23 mmol/L 22-32 ANION GAP (test code=ANG) 24.6 mmol/L BUN (test code=05D) 39 mg/dL 7-18 CREATININE (test code=03E) 9.4 mg/dL 0.4-1.1 BUN/CREA (test code=BCR) 4 12-20 CALCIUM (test code=09D) 7.6 mg/dL 8.3-9.5 BILI TOTAL (test code=11A) 0.5 mg/dL 0.2-1.0 PROTEIN (test code=07D) 8.2 g/dL 6.4-8.2 ALBUMIN (test code=08D) 3.6 g/dL 3.5-4.8 GLOBULIN (test code=GLB) 4.6 g/dL 1.5-3.8 ALB/GLOB (test code=AGRR) 0.8 1.0-2.6 ALK PHOS (test code=35A) 157 IU/L 42-121 AST (test code=30A) 9 IU/L <=42 ALT (test code=31A) 13 IU/L <=78 AMYLASE AND LIPASE 2017-07-28 20:04:00* Test Item Value Reference Range Comments AMYLASE (test code=10A) 59 U/L 28-100 LIPASE (test code=60A) 100 IU/L 73-393 MAGNESIUM 2017-07-28 20:04:00* Test Item Value Reference Range Comments MAGNESIUM (test code=48A) 2.4 mg/dL 1.8-2.4 CBC (INCLUDES AUTOMATED DIFFERENTIAL)*[id number] 19:56:00* Test Item Value Reference Range Comments WBC (test code=WBC) 12.6 10\S\3/uL 4.5-11.0 RBC (test code=RBC) 1.75 10\S\6/uL 4.30-5.70 HGB (test code=HBG) 5.0 g/dL 12.0-15.5 HCT (test code=HCT) 16.3 % 35.0-44.0 MCV (test code=MCV) 93.1 fL 81.0-99.0 MCH (test code=MCH) 28.6 pg 27.0-31.0 MCHC (test code=MCHC) 30.7 g/dL 32.0-36.0 RDW (test code=RDW) 17.6 % 11.5-14.5 PLT (test code=PLT) 412 10\S\3/uL 130-400 MPV (test code=MPV) 9.5 fL 9.4-12.4 NEUTROP # (test code=NE#) 10.7 10\S\3/uL 1.6-8.0 LYMPH # (test code=LY#) 1.6 10\S\3/uL 1.1-3.5 MONOCYTE # (test code=MO#) 0.3 10\S\3/uL 0.0-1.1 EOSINOPH # (test code=EO#) 0.0 10\S\3/uL 0.0-0.7 BASOPHIL # (test code=BA#) 0.0 10\S\3/uL 0.0-0.3 IG # (test code=IG#) 0.07 10\S\3/uL 0.00-0.06 NRBC # (test code=NRBC#) 0.00 10\S\3/uL 0.00-0.01 NEUTROPH % (test code=NE%) 84.2 % 35.0-73.0 LYMPH % (test code=LY%) 12.6 % 20.0-55.0 MONO % (test code=MO%) 2.3 % 2.5-10.0 EOSINOPH % (test code=EO%) 0.1 % 0.0-5.0 BASOPHIL % (test code=BA%) 0.2 % 0.0-2.0 IG % (test code=IG%) 0.6 % 0.0-0.8 NRBC% (test code=NRBC%) 0.0 % 0.0-0.2 MANDIFF (test code=WMDIFF) NO NO RBC MORPH (test code=WRBCMOR) NORMAL XR ABDOMEN 2 VIEWS W/PA CHEST *WW*2017-07-12 11:58:04EXAM: Chest 1 view and Abdomen 2 viewsLocation code:M1UOZBMNA: Abdominal pain .COMPARISON: None availableCOMMENT: A left subclavian line is noted with tip in the right atrium. Thesingle view of the chest shows no confluent interstitial opacities, pleuraleffusions or pneumothorax. The heart size and pulmonary vasculature are normal. The abdominal radiographs show a normal bowel gas pattern. There is nopneumoperitoneum, pneumatosis, or mass effect. There are no radiopaquedensities noted projecting in the right upper or lower abdominal quadrants,region of the kidneys or path of ureters. There are no clinically significantosseous abnormalities noted. IMPRESSION: 1. Unremarkable abdominal series. COMPREHENSIVE METABOLIC FULTON 2017-07-12 11:31:00* Test Item Value Reference Range Comments GLUCOSE (test code=06D) 106 mg/dL 75-100 SODIUM (test code=01A) 134 mmol/L 136-145 POTASSIUM (test code=01B) 3.9 mmol/L 3.6-5.1 CHLORIDE (test code=04A) 97 mmol/L 98-107 CO2 (test code=02A) 26 mmol/L 22-32 ANION GAP (test code=ANG) 14.9 mmol/L BUN (test code=05D) 15 mg/dL 7-18 CREATININE (test code=03E) 6.4 mg/dL 0.4-1.1 BUN/CREA (test code=BCR) 2 12-20 CALCIUM (test code=09D) 8.5 mg/dL 8.3-9.5 BILI TOTAL (test code=11A) 0.4 mg/dL 0.2-1.0 PROTEIN (test code=07D) 8.5 g/dL 6.4-8.2 ALBUMIN (test code=08D) 3.5 g/dL 3.5-4.8 GLOBULIN (test code=GLB) 5.0 g/dL 1.5-3.8 ALB/GLOB (test code=AGRR) 0.7 1.0-2.6 ALK PHOS (test code=35A) 159 IU/L 42-121 AST (test code=30A) 13 IU/L <=42 ALT (test code=31A) 15 IU/L <=78 SERUM MONOCLONAL 2017-07-12 11:19:00* Test Item Value Reference Range Comments PREG SRM (test code=PGS) NEGATIVE NEGATIVE AMYLASE AND LIPASE 2017-07-12 11:12:00* Test Item Value Reference Range Comments AMYLASE (test code=10A) 77 U/L 28-100 LIPASE (test code=60A) 128 IU/L 73-393 CBC (INCLUDES AUTOMATED DIFFERENTIAL)*[id number] 11:05:00* Test Item Value Reference Range Comments WBC (test code=WBC) 6.2 10\S\3/uL 4.5-11.0 RBC (test code=RBC) 3.88 10\S\6/uL 4.30-5.70 HGB (test code=HBG) 10.9 g/dL 12.0-15.5 HCT (test code=HCT) 34.4 % 35.0-44.0 MCV (test code=MCV) 88.7 fL 81.0-99.0 MCH (test code=MCH) 28.1 pg 27.0-31.0 MCHC (test code=MCHC) 31.7 g/dL 32.0-36.0 RDW (test code=RDW) 16.3 % 11.5-14.5 PLT (test code=PLT) 336 10\S\3/uL 130-400 MPV (test code=MPV) 9.7 fL 9.4-12.4 NEUTROP # (test code=NE#) 3.6 10\S\3/uL 1.6-8.0 LYMPH # (test code=LY#) 1.9 10\S\3/uL 1.1-3.5 MONOCYTE # (test code=MO#) 0.5 10\S\3/uL 0.0-1.1 EOSINOPH # (test code=EO#) 0.1 10\S\3/uL 0.0-0.7 BASOPHIL # (test code=BA#) 0.1 10\S\3/uL 0.0-0.3 IG # (test code=IG#) 0.03 10\S\3/uL 0.00-0.06 NRBC # (test code=NRBC#) 0.00 10\S\3/uL 0.00-0.01 NEUTROPH % (test code=NE%) 58.0 % 35.0-73.0 LYMPH % (test code=LY%) 31.1 % 20.0-55.0 MONO % (test code=MO%) 7.5 % 2.5-10.0 EOSINOPH % (test code=EO%) 1.9 % 0.0-5.0 BASOPHIL % (test code=BA%) 1.0 % 0.0-2.0 IG % (test code=IG%) 0.5 % 0.0-0.8 NRBC% (test code=NRBC%) 0.0 % 0.0-0.2 MANDIFF (test code=WMDIFF) NO NO RBC MORPH (test code=WRBCMOR) NORMAL DIRECT INFLUENZA A AND B [id number] 10:28:00* Test Item Value Reference Range Comments Direct Exam (test code=DE3) PRESUMPTIVE NEGATIVE FOR THE PRESENCE OF INFLUENZA ANTIGEN CT ABDOMEN AND PELVIS WITHOUT CONTRAST *WW*2017-07-08 22:29:47LOCATION: [id number]: 26-year-old female who presents with abdominal pain. The patient has ahistory of ESRD.COMMENT: After-hours service at 10:[address] imaging of this patient's abdomen and pelvis was obtained without IVcontrast. Coronal and sagittal soft tissue reconstructions were included. Uirdp6Qgm or more of the following dose reduction techniques are used: Automatedexposure control, adjustment of the mA and/or kV according the patient size,and/or utilization of iterative reconstruction technique.DLP: 421.47 mGy-cmCONTRAST: NoneFINDINGS:The lung bases are clear and the cardiac silhouette is unremarkable.The liver, spleen, pancreas, and adrenal glands are unremarkable. A horseshoekidney is seen in the upper pelvis.Cholecystectomy clips are present.The upper intestinal tract and the small intestine are unremarkable. Theappendix is unremarkable.Scattered fecal residue seen throughout the colon suggestive of constipation.The colon otherwise is unremarkable.No ascites or adenopathy is present.In the pelvis the urinary bladder is empty. The uterus is unremarkable. Theovaries are not clearly seen.The vascular anatomy is unremarkable.The musculoskeletal anatomy is unremarkable.IMPRESSION:No acute findings are seen in this patient's abdomen or pelvis on thisunenhanced CT study.Colonic constipation is suspected. SERUM MONOCLONAL *WW*2017-07-08 22:00:00* Test Item Value Reference Range Comments PREG SRM (test code=PGS) NEGATIVE NEGATIVE LIVER PROFILE WW2017-07-08 21:42:00* Test Item Value Reference Range Comments BILI TOTAL (test code=11A) 0.2 mg/dL 0.2-1.0 BILI DIRCT (test code=12A) 0.1 mg/dL 0.0-0.2 BILI INDIR (test code=BILII) 0.1 mg/dL <=0.8 PROTEIN (test code=07D) 9.1 g/dL 6.4-8.2 ALBUMIN (test code=08D) 3.6 g/dL 3.5-4.8 GLOBULIN (test code=GLB) 5.5 g/dL 1.5-3.8 ALB/GLOB (test code=AGRR) 0.7 1.0-2.6 ALK PHOS (test code=35A) 186 IU/L 42-121 AST (test code=30A) 10 IU/L <=42 ALT (test code=31A) 17 IU/L <=78 AMYLASE AND LIPASE 2017-07-08 21:36:00* Test Item Value Reference Range Comments AMYLASE (test code=10A) 104 U/L 28-100 LIPASE (test code=60A) 175 IU/L 73-393 CARDIAC PROFILE 2017-07-08 20:40:00* Test Item Value Reference Range Comments TROPONIN I (test code=A84) <0.015 ng/mL 0.000-0.045 CKMB (test code=A49) 2.9 ng/mL <=3.6 CPK (test code=32A) 81 IU/L 26-192 BASIC METABOLIC PANEL 2017-07-08 20:37:00* Test Item Value Reference Range Comments GLUCOSE (test code=06D) 392 mg/dL 75-100 SODIUM (test code=01A) 133 mmol/L 136-145 POTASSIUM (test code=01B) 3.3 mmol/L 3.6-5.1 CHLORIDE (test code=04A) 92 mmol/L 98-107 CO2 (test code=02A) 26 mmol/L 22-32 ANION GAP (test code=ANG) 18.3 mmol/L BUN (test code=05D) 13 mg/dL 7-18 CREATININE (test code=03E) 3.3 mg/dL 0.4-1.1 BUN/CREA (test code=BCR) 4 12-20 CALCIUM (test code=09D) 9.0 mg/dL 8.3-9.5 CBC (INCLUDES AUTOMATED DIFFERENTIAL)*[id number] 20:22:00* Test Item Value Reference Range Comments WBC (test code=WBC) 5.8 10\S\3/uL 4.5-11.0 RBC (test code=RBC) 4.42 10\S\6/uL 4.30-5.70 HGB (test code=HBG) 12.1 g/dL 12.0-15.5 HCT (test code=HCT) 37.4 % 35.0-44.0 MCV (test code=MCV) 84.6 fL 81.0-99.0 MCH (test code=MCH) 27.4 pg 27.0-31.0 MCHC (test code=MCHC) 32.4 g/dL 32.0-36.0 RDW (test code=RDW) 14.5 % 11.5-14.5 PLT (test code=PLT) 278 10\S\3/uL 130-400 MPV (test code=MPV) 10.1 fL 9.4-12.4 NEUTROP # (test code=NE#) 4.5 10\S\3/uL 1.6-8.0 LYMPH # (test code=LY#) 0.8 10\S\3/uL 1.1-3.5 MONOCYTE # (test code=MO#) 0.2 10\S\3/uL 0.0-1.1 EOSINOPH # (test code=EO#) 0.1 10\S\3/uL 0.0-0.7 BASOPHIL # (test code=BA#) 0.1 10\S\3/uL 0.0-0.3 IG # (test code=IG#) 0.05 10\S\3/uL 0.00-0.06 NRBC # (test code=NRBC#) 0.00 10\S\3/uL 0.00-0.01 NEUTROPH % (test code=NE%) 78.7 % 35.0-73.0 LYMPH % (test code=LY%) 13.9 % 20.0-55.0 MONO % (test code=MO%) 4.2 % 2.5-10.0 EOSINOPH % (test code=EO%) 1.4 % 0.0-5.0 BASOPHIL % (test code=BA%) 0.9 % 0.0-2.0 IG % (test code=IG%) 0.9 % 0.0-0.8 NRBC% (test code=NRBC%) 0.0 % 0.0-0.2 MANDIFF (test code=WMDIFF) NO NO RBC MORPH (test code=WRBCMOR) NORMAL XR CHEST 1 VIEW PORTABLE *WW*2017-07-08 20:07:14LOCATION: [id number]: 26-year- old female with end-stage renal disease.COMMENT: A frontal chest radiograph was obtained at the bedside at 6:53 p.m., and wasverified for review on PACS at 8:02 p.m.The lungs are clear and well-aerated. The cardiac silhouette, art, andmediastinum are within normal limits. The skeleton is intact, and thesurrounding soft tissues are unremarkable. A left-sided tunneled IJ dialysis catheter is present.IMPRESSION:Unremarkable portable examination of the chest.CHEST SINGLE (PORTABLE) [place] [address] Patient Name: DEMETRI CROSS MR #: [id number] : 1990 Age/Sex: 26/F Req #: [id number] Adm Physician: Ordered by: FEI COLLINS MD Report #: [id number] Location: ER Room/Bed: Procedure: [id number] DX/CHEST SINGLE (PORTABLE) Exam Date: 08/01/17 Exam Time: 0955 REPORT STATUS: Signed EXAM: CHEST SINGLE (PORTABLE) DATE: 08/01/2017 7:48 AM INDICATION: Short of breath COMPARISON: None FINDINGS: Left IJ dialysis catheter present with tip overlying right atrium. Heart not enlarged. There is no pneumothorax or focal consolidation. IMPRESSION: No acute findings. Signed by: Dr. Adama Boucher MD on 08/01/2017 10:10 AM Dictated By: ADAMA BOUCHER MD 1010 Transcribed By: MASOUD on 08/01/17 1010 COPY TO: FEI COLLINS MD CT ABDOMEN/ PELVIS WO [facility] [address] [place] [address] Patient Name: DEMETRI CROSS MR # : [id number] : 1990 Age/Sex: 26/F Req #: [id number] Adm Physician: Ordered by: SCOTT JEROME ASPHALT TAMPER Report #: [id number] Location: ER Room/Bed: Procedure: [id number] CT/CT ABDOMEN/PELVIS WO Exam Date: 07/15/17 Exam Time: 1420 REPORT STATUS: Signed PROCEDURE: CT ABDOMEN AND PELVIS WITHOUT CONTRAST TECHNIQUE: The abdomen and pelvis were scanned utilizing a multidetector helical scanner from the diaphragm to the lesser trochanter. No IV contrast was administered as per physician request. Coronal and sagittal multiplanar reformations were obtained. COMPARISON : None. INDICATIONS: NAUSEA, VOMITING, DIARRHEA FINDINGS: ABSENCE OF INTRAVENOUS CONTRAST DECREASES SENSITIVITY FOR DETECTION OF FOCAL LESIONS AND VASCULAR PATHOLOGY. Examination of the abdomen limited due to a paucity of mesenteric fat. LOWER THORAX: Normal. Partially visualized central venous catheter with the tip positioned within the right atrium. HEPATOBILIARY: No focal hepatic lesions. No biliary ductal dilatation. Cholecystectomy. SPLEEN: No splenomegaly. PANCREAS: No focal masses or ductal dilatation. ADRENALS: No adrenal nodules. 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 No hydronephrosis, stones, or solid mass lesions. PELVIC ORGANS /BLADDER: Unremarkable. PERITONEUM / RETROPERITONEUM: No free air or fluid. LYMPH NODES: No lymphadenopathy. VESSELS: Unremarkable. GI TRACT: No distention or wall thickening. Normal appendix. Moderate amount of retained feces in the transluminal evaluation of the colon. BONES AND SOFT TISSUES: Unremarkable. IMPRESSION: No acute abnormality of the abdomen and pelvis. Dictated by: Lupillo Baugh M.D. on 07/15/2017 at 15: 02 Electronically approved by: Lupillo Baugh M.D. on 07/15/2017 at 15:02 Dictated By: LUPILLO BAUGH MD 1502 Transcribed By: RAYNE on 07/15/17 1502 COPY TO: SCOTT JEROME NP CHEST SINGLE (PORTABLE) [place] [address] Patient Name: DEMETRI CROSS MR #: [id number] : 1990 Age/Sex: 26/F Req #: [id number] Adm Physician: COOKIE GUTHRIE MD Ordered by: TANIA SANTIZO MD Report #: [id number] Location: [facility] Room/Bed: [place] [address] Procedure: [id number] 0011 DX/CHEST SINGLE (PORTABLE) Exam Date: Exam Time: REPORT STATUS: Signed PROCEDURE: CHEST SINGLE (PORTABLE) TECHNIQUE: Portable AP chest INDICATION: Diabetic; weakness and vomiting COMPARISON: [facility], DX, CHEST 2 VIEWS, 04/06/2016, 14: 37. FINDINGS: Left internal jugular dialysis catheter tips at the left brachiocephalic vein and high SVC. Interval removal of a right internal jugular port catheter relative to March 2016. Lungs are clear and symmetrically inflated. No pleural effusions. Upper limits of normal heart size for technique. Intact skeleton. CONCLUSION: 1. No acute abnormality. 2. Left internal jugular tunnel dialysis catheter tips are suboptimally positioned. Please correlate with dialysis flow rates. Dictated by: Adri Johnson M.D. on 04/23/2017 at 8:37 Electronically approved by: Adri Johnson M.D. on 04/23/2017 at 8:37 Dictated By: ADRI JHONSON MD 6 Transcribed By: RAYNE on 04/23/17 0837 COPY TO: TANIA SANTIZO MD CT ABDOMEN/PELVIS W [place] [address] Patient Name: DEMETRI CROSS MR #: [id number] : 1990 Age/Sex: 26 /F Req #: [id number] Adm Physician: Ordered by: FEI LANDRY MD Report #: [id number] Location: ER Room/Bed: Procedure: [id number] CT/CT ABDOMEN/PELVIS W Exam Date: 04/22/17 Exam Time: 1505 REPORT STATUS: Signed PROCEDURE: CT ABDOMEN AND PELVIS WITH CONTRAST TECHNIQUE: The abdomen and pelvis were scanned utilizing a multidetector helical scanner from the diaphragm to the lesser trochanter after the IV administration of 100 cc of Isovue 370 and the oral administration of water. Coronal and sagittal multiplanar reformations were obtained. COMPARISON: [facility], CT, CT ABDOMEN/PELVIS W, 08/28/2014, 11:55. INDICATIONS: CROHN 'S DISEASE FINDINGS: LOWER THORAX: Unremarkable. HEPATOBILIARY: No focal hepatic lesions. No biliary ductal dilatation. Cholecystectomy clips. SPLEEN: Borderline splenomegaly, measuring 12.7 cm in AP diameter. PANCREAS: No focal masses or ductal dilatation. ADRENALS: No adrenal nodules. 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 No hydronephrosis, stones, or obstruction. No solid enhancing masses. PELVIC ORGANS/BLADDER: Bladder is moderately to markedly distended, with high density fluid. No focal lesions. Uterus shows mild amount of fluid in the endometrial cavity. PERITONEUM / RETROPERITONEUM: Small amount of fluid surrounding the medial aspect of the horseshoe kidney (series 2 image 50. LYMPH NODES: Mildly prominent aortocaval node measuring 3.9-1.0 cm in short axis (series 2, image 31). No intra-abdominal, retroperitoneal or common pelvic or inguinal enlarged nodes. VESSELS: Unremarkable. GI TRACT: No bowel dilation or obstruction. Large amount of stool in the colon suggesting constipation. No wall thickening or pericolonic inflammatory changes. BONES AND SOFT TISSUES: No acute bony abnormalities. Mild generalized soft tissue edema IMPRESSION: 1. large amount of retained stool in the colon, suggesting constipation. No bowel dilation or evidence of obstruction. No wall thickening or surrounding inflammatory changes to suggest active Crohn's disease. 2. Small amount of fluid surrounding the medial aspect of the kidney. This may represent physiologic fluid. Correlate with patient's menstrual history. No definite CT evidence of pyelonephritis. 3. Bladder is moderately to markedly distended, with high density contents. This may represent a excretion of contrast, however, correlation with urinalysis is recommended to exclude hematuria. Raimundo Cerda M.D. Dictated by: Raimundo Cerda M.D. on 04/22/2017 at 16:21 Electronically approved by: Raimundo Cerda M.D. on 04/22/2017 at 16:21 Dictated By: RAIMUNDO CERDA MD 1621 Transcribed By: RAYNE on 04/22/17 1621 COPY TO: FEI LANDRY MD
[2017-09-19] MEDS ORDERED: MORPHINE SULFATE 2 MG/ML SYR IV STA (07:32)
[2017-09-19] MEDS ORDERED: PROMETHAZINE 25MG/ NS 50ML (IV) IV ONE (07:45)
[2017-09-19] MEDS ORDERED: DIPHENHYDRAMINE HCL INJ 50 MG/ML VIAL IV ONE (07:45)
[2017-09-19] MEDS ORDERED: LABETALOL HCL 5 MG/ML 20ML VIAL IV STA (08:04)
[2017-09-19 08:30] LABS: BASOPHILS # (AUTO) 0.1 (0.0-0.1); BASOPHILS % 0.5 % (0.0-1.0); EOSINOPHILS # (AUTO) 0.1 (0.0-0.4); EOSINOPHILS % 0.8 % (0.0-6.0); HEMOGLOBIN 11.9 g/dL (12.0-16.0); LYMPHOCYTES # (AUTO) 1.2 (1.0-3.2); MEAN CORPUSCULAR HGB CONC 31.3 g/dL (31-35); MEAN CORPUSCULAR VOLUME 92.7 fL (81-99); MONOCYTES # (AUTO) 0.6 (0.2-0.8); MONOCYTES % 6.1 % (4.4-11.3); NEUTROPHILS % 79.4 % (38.7-80.0); PLATELET COUNT 274 x10e3/uL (140-360); RED CELL DISTRIBUTION WIDTH 15.1 % (11.7-14.4)
[2017-09-19] MEDS ORDERED: LABETALOL HCL 5 MG/ML 20ML VIAL IV NR (08:30)
[2017-09-19 08:53] LABS: ALBUMIN 4.2 g/dL (3.5-5.0); ANION GAP 21.4 mmol/L (8-16); CALCIUM 9.5 mg/dL (8.4-10.2); CREATININE, SERUM 5.93 mg/dL (0.57-1.11); POTASSIUM 3.4 mmol/L (3.5-5.1)
[2017-09-19] MEDS ORDERED: MORPHINE SULFATE 2 MG/ML SYR IV PRN (10:15)
--- OUTSIDE RECORDS SUMMARY | 2017-09-19 11:27 | XMS REPORT | Clinical Summary ---
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 arteries, and art objects repairer. The vertebral arteries are codominant. The posterior communicating arteries are unremarkable. There is no evidence of cerebral aneurysm in the proximal [place] within limits of MRA technique. IMPRESSION: Unremarkable head MRA with no significant stenosis or occlusion in the proximal [place]. [facility]-[id number] Procedure Note [facility], Radiology Results Incoming - 04/20/2017 3:37 PM CDT EXAMINATION: MRA HEAD WO CONTRAST CLINICAL HISTORY: HEADACHE ACUTE SEVERE THUNDERCLAP WORST BRAN OF LIFE COMPARISON: Concurrent brain MRI on 04/20/2017. TECHNIQUE: Head MRA using 3D tbjm-wk-dxdpxi technique with multiplanar MIP reconstruction were obtained. FINDINGS: There is normal flow signal with no significant stenosis or occlusion along bilateral intracranial ICAs, ACAs, and MCAs. The anterior communicating artery complex is unremarkable. There is normal flow signal with no significant stenosis or occlusion along bilateral vertebral arteries, basilar artery, cerebellar arteries, and art objects repairer. The vertebral arteries are codominant. The posterior communicating arteries are unremarkable. There is no evidence of cerebral aneurysm in the proximal [place] within limits of MRA technique. IMPRESSION: Unremarkable head MRA with no significant stenosis or occlusion in the proximal [place]. [id number] * Syphilis treponemal IgG (04/20/2017 10:38 AM) Component Value Ref Range Syphilis treponemal IgG Non-reactiveComment: Non-reactive: No serological Non-reactive evidence of Syphilis infection Specimen Performing Laboratory Serum [facility] DEPARTMENT OF PATHOLOGY AND GENOMIC MEDICINE [address] [place] [address] * Rapid HIV 1 & 2 (04/20/2017 10:38 AM) Component Value Ref Range Rapid HIV 1 and 2 Non-Reactive Non-Reactive Specimen Performing Laboratory Blood [facility] DEPARTMENT OF PATHOLOGY AND GENOMIC MEDICINE [address] [place] [address] * Sedimentation rate (04/20/2017 10:38 AM) Only the most recent of 2 results within the time period is included. Component Value Ref Range Sedimentation rate 23 (H) 0 - 20 mm/hr Specimen Performing Laboratory Blood [facility] DEPARTMENT OF PATHOLOGY AND GENOMIC MEDICINE [address] [place] [address] * Thyroid stimulating hormone (04/20/2017 10:38 AM) Component Value Ref Range TSH 1.04 0.27 - 4.20 uIU/mL Specimen Performing Laboratory Blood [facility] DEPARTMENT OF PATHOLOGY AND GENOMIC MEDICINE [address] [place] [address] * Vitamin B12 level (04/20/2017 10:38 AM) Component Value Ref Range Vitamin B12 599 211 - 946 pg/mL Comment: Significant overlap exists between normal and deficiency states. However, most patients with deficiencies will have Serum B12 <200 pg/mL. Specimen Performing Laboratory Serum [facility] DEPARTMENT OF PATHOLOGY AND GENOMIC MEDICINE [address] [place] [address] * Lipid panel (04/20/2017 10:38 AM) Only [...] triglycerides (>=200 mg/dL) Specimen Performing Laboratory Blood [facility] DEPARTMENT OF PATHOLOGY AND GENOMIC MEDICINE [address] [place] [address] * CT Head Wo Contrast (04/20/2017 8:59 AM) Only the most recent of 2 results within the time period is included. Specimen Performing Laboratory [facility] [address] [place] [address] Narrative EXAMINATION: CT HEAD WO CONTRAST CLINICAL [...] intact. IMPRESSION: No acute intracranial abnormality identified. [facility]-[id number] Procedure Note Interface, Radiology Results Incoming - [...] intact. IMPRESSION: No acute intracranial abnormality identified. [facility]-[id number] * hCG qualitative, serum screen (04/20/2017 8:13 AM) Only the most recent of 4 results within the time period is included. Component Value Ref Range hCG qualitative, serum NegativeComment: Sensitivity of HCG test: 25 mIU/mL Specimen Performing Laboratory Blood [facility] DEPARTMENT OF PATHOLOGY AND GENOMIC MEDICINE [address] [place] [address] * CK-MB (04/20/2017 6:20 AM) Component Value Ref Range CK-MB 5.5 (H) 1.0 - 5.3 ng/mL Specimen Performing Laboratory Plasma specimen [facility] DEPARTMENT OF PATHOLOGY AND GENOMIC MEDICINE [address] [place] [address] * CRITICAL CARE (04/20/2017 4:52 AM) Narrative [...] specimen DEPARTMENT OF PATHOLOGY AND GENOMIC MEDICINE, [facility] [address] [place] [address] Narrative Test performed at [facility]. * PV duplex venous upper extremity (04/04/2017 10:54 AM) Specimen Performing Laboratory [facility] [address] [place] [address] Narrative EXAMINATION:US DUPLEX VENOUS UPPER EXTREMITY LEFT [...] upper extremity, or the contralateral subclavian vein [facility]-[id number] Procedure Note Interface, Radiology Results Incoming - [...] upper extremity, or the contralateral subclavian vein [facility]-[id number] * GENERAL (04/01/2017 8:33 PM) Narrative ELOISE [...] 1:02 AM) Specimen Performing Laboratory [facility] [address] [place] [address] Narrative Examination:XR ABDOMEN 1 VW PORTABLE Clinical History: ABDOMINAL PAIN, Diarrhea, Vomiting Comparison: None. Findings: Single frontal view of the abdomen is obtained. The bowel gas pattern is unremarkable. No bowel dilatation is seen. No free air is seen. Right upper quadrant surgical clips are noted. IMPRESSION: 1. No focal abnormality identified in the abdomen. [facility]-[id number] Procedure Note Interface, Radiology Results Incoming - [...] No focal abnormality identified in the abdomen. [id number] * CRITICAL CARE (03/30/2017 6:31 PM) Narrative [...] Site: Arm Right Specimen Performing Laboratory Blood [facility] DEPARTMENT OF PATHOLOGY AND GENOMIC MEDICINE [address] [place] [address] * Blood culture, anaerobic (02/13/2017 11:55 AM) Component Value Ref Range Blood culture isolate, No growth after 5 days of incubation. anaerobic Comment: Specimen Information Specimen Source: Blood Specimen Site: Arm Left Specimen Performing Laboratory Blood [facility] DEPARTMENT OF PATHOLOGY AND GENOMIC MEDICINE [address] [place] [address] * Echocardiogram complete w contrast and 3D [...] E/A ratio 0.81 Specimen Performing Laboratory [facility] [address] [place] [address] Narrative Left Ventricular ejection fraction is 60 [...] speckled (A) Not-Detected Specimen Performing Laboratory Blood [facility] DEPARTMENT OF PATHOLOGY AND GENOMIC MEDICINE [address] [place] [address] * PHILOMENA (01/30/2017 1:16 PM) Component Value Ref Range PHILOMENA screen Detected (A) Not-Detected Specimen Performing Laboratory Blood [facility] DEPARTMENT OF PATHOLOGY AND [address] [address] * Hepatitis B surface Ab, quantitative (01/30/2017 [...] as greater than 1,000.00 IU/L. Performed by [facility], [address] [place] [address] [email or web address], Blade Hoff MD - Lab. Director Specimen Performing Laboratory Serum [facility] [address] [place] [address] * Urinalysis screen and microscopy, with reflex [...] None seen UA Specimen Performing Laboratory Urine [facility] DEPARTMENT OF PATHOLOGY AND GENOMIC MEDICINE [address] [place] [address] * Urine culture (01/30/2017 12:08 PM) Only the most recent of 2 results within the time period is included. Component Value Ref Range Urine culture SEE COMMENTComment: Bacteriuria screen negative. Specimen Performing Laboratory [facility] DEPARTMENT OF PATHOLOGY AND GENOMIC MEDICINE [address] [place] [address] * PV Duplex Venous Lower Extremity (01/30/2017 8:21 AM) Specimen Performing Laboratory [facility] [address] [place] [address] Narrative EXAMINATION:US DUPLEX VENOUS LOWER EXTREMITY BILATERAL [...] is no evidence of deep venous thrombosis. [id number] Procedure Note Interface, Radiology Results Incoming - [...] is no evidence of deep venous thrombosis. [id number] * CT Stroke Brain Wo Contrast (01/30/2017 5:27 AM) Specimen Performing [facility] [address] [place] [address] Narrative EXAMINATION: CT STROKE BRAIN WO CONTRAST [...] at 01/30/2017 5:46 AM who verbalized understanding. [facility]-[id number] Procedure Note Interface, Radiology Results Incoming - [...] at 01/30/2017 5:46 AM who verbalized understanding. [facility]-[id number] * Smear review (12/09/2016 3:50 AM) Component Value Ref Range Platelet slide review Carmen adequate Anisocytosis Moderate Spherocytes Moderate (A) Ovalocytes Moderate Tay cells Moderate (A) Giant platelets Occasional Specimen Performing Laboratory [facility] DEPARTMENT OF PATHOLOGY AND GENOMIC MEDICINE [address] [place] [address] * US Single Less Than 14 Weeks (12/08/2016 2:46 PM) Only the most recent of 5 results within the time period is included. Specimen Performing Laboratory [facility] [address] [place] [address] Narrative EXAMINATION:US SINGLE LESS THAN 14 WEEKS [...] participate in the care of your patient. [facility]-[id number] Procedure Note [facility], Radiology Results Incoming - 12/08/2016 4:04 [...] participate in the care of your patient. [id number] * Cortisol level, AM (12/08/2016 6:20 AM) Component Value Ref Range Cortisol, AM 14 6 - 18 ug/dL Specimen Performing Laboratory Plasma specimen [facility] DEPARTMENT OF PATHOLOGY AND GENOMIC MEDICINE [address] [place] [address] * Hemoglobin & hematocrit (12/06/2016 6:25 AM) Component Value Ref Range HGB 8.1 (L) 12.0 - 16.0 g/dL HCT 25.6 (L) 37.0 - 47.0 % Specimen Performing Laboratory Blood [facility] [place] [address] * Parathyroid hormone (12/06/2016 6:25 AM) Component Value Ref Range PTH 205 (H) 15 - 65 pg/mL Specimen Performing Laboratory Blood [facility] [place] [address] * CBC hemogram (12/05/2016 5:45 AM) Only [...] 0.00 /100 WBC Specimen Performing Laboratory Blood [facility] DEPARTMENT OF PATHOLOGY AND [facility] MEDICINE [address] [place] [address] * GENERAL (12/03/2016 3:43 PM) Narrative ELOISE [...] Red Cells AS1 Leukored Irrad Unit number [id number] Product code [id number] Dispense status Transfused Blood expiration date 20161209 Blood type code 9500 Blood type O NEGATIVE Specimen Performing Laboratory [facility] DEPARTMENT OF PATHOLOGY AND GENOMIC MEDICINE [address] [place] [address] * Type and screen (12/02/2016 10:00 AM) Only the most recent of 3 results within the time period is included. Component Value Ref Range ABO grouping O Rh type NEG Antibody screen (gel) NEG Specimen Performing Laboratory Blood [facility] DEPARTMENT OF PATHOLOGY [place] [address] * Urine culture screen (11/28/2016 11:00 AM) [...] gerardo 10-4 cfu/ml Specimen Performing Laboratory Urine [facility] DEPARTMENT OF PATHOLOGY AND GENOMIC MEDICINE [address] [place] [address] Narrative Specimen Site is : Clean catch Specimen Source is : Urine * Lipase level (11/28/2016 10:10 AM) Component Value Ref Range Lipase 13 13 - 60 U/L Specimen Performing Laboratory [facility] DEPARTMENT OF PATHOLOGY AND GENOMIC MEDICINE [address] [facility] [place] [address] * Creatinine level (11/18/2016 6:20 PM) Component Value Ref Range Creatinine 2.6 (H) 0.5 - 0.9 mg/dL Specimen Performing Laboratory [facility] DEPARTMENT OF PATHOLOGY AND GENOMIC MEDICINE [address] [place] [address]. [place] [address] * USPV Venous Upper Extremity Right (11/18/2016 7:00 AM) Specimen Performing Laboratory [facility] [address] [place] [address] Narrative EXAMINATION:USPV EXTREMITY JORGE UPPER UNI RIGHT [...] venous thrombosis of the right upper extremity. [id number] Procedure Note Interface, Radiology Conversion - 11/18/2016 [...] venous thrombosis of the right upper extremity. [id number] * US Abdomen Portable (11/18/2016 6:20 AM) Specimen Performing Laboratory [facility] [address] [place] [address] Narrative EXAM: US ABDOMEN PORTABLE CLINICAL DATA:Abdomen [...] ascites and a small right pleural effusion. [id number] Procedure Note Hm Interface, Radiology Conversion - [...] ascites and a small right pleural effusion. [id number] * Vancomycin level, trough (11/17/2016 5:02 PM) Only the most recent of 7 results within the time period is included. Component Value Ref Range Vancomycin, trough 16.9 10.0 - 20.0 ug/mL Comment: Therapeutic Ranges: Peak 30.0 - 40.0 ug/mL Trough 10.0 - 20.0 ug/mL Specimen Performing Laboratory [facility] DEPARTMENT OF PATHOLOGY AND [facility] MEDICINE [address] [place] [address] * Sodium level, urine, random (11/12/2016 5:58 PM) Component Value Ref Range Urine sodium 66 mEq/L concentration Total volume, urine 40 mL Urine sodium excretion 3Comment: Varies with diet. mEq/vol Specimen Performing Laboratory [facility] DEPARTMENT OF PATHOLOGY AND [address] [address] * Osmolality, urine (11/12/2016 5:58 PM) Component Value Ref Range Osmolality, urine 262 50 - 1,400 mOsm/kg Specimen Performing Laboratory [facility] OF PATHOLOGY AND [address] [address] * IR PICC Line Insertion Fluoroscopy (11/11/2016 5:32 PM) Specimen Performing Laboratory [facility] [address] [place] [address] Narrative Examination:PICC LINE INSERTION FLUORO Clinical history:"Very [...] sheath was placed over the wire.A 5 Turkmen catheter was severed to 39 cm in length.The catheter was introduced ilab-jld-dagd and positioned using real-time fluoroscopic guidance with [...] Complications:None. Specimens removed:None. Assistants:None. IMPRESSION: A power-injectable, 5-Turkmen, 39 cm in length peripherally inserted central catheter (PICC) was placed via the right basilic vein using image guidance and without incident as described above.The catheter is ready for routine use. The patient's indwelling right internal jugularvenous port catheter was removed without incident as described above. Thank you for allowing us to participate in the care of your patient. [id number] Procedure Note Hm Interface, Radiology Conversion - [...] was placed over the wire. A 5 Turkmen catheter was severed to 39 cm in length. The catheter was introduced sufy-byf-bjio and positioned using real-time fluoroscopic guidance with [...] removed: None. Assistants: None. IMPRESSION: A power-injectable, 5-Turkmen, 39 cm in length peripherally inserted central catheter (PICC) was placed via the right basilic vein using image guidance and without incident as described above. The catheter is ready for routine use. The patient's indwelling right internal jugular venous port catheter was removed without incident as described above. Thank you for allowing us to participate in the care of your patient. [id number] * IR Central Catheter Placement Replace Removal Fluoroscopy (11/11/2016 5:32 PM ) Specimen Performing Laboratory [facility] [address] [place] [address] Narrative Examination:CNTR CATH PLCMNT REPL REM FLUO [...] sheath was placed over the wire.A 5 Turkmen catheter was severed to 39 cm in length.The catheter was introduced [id number] and positioned using real-time fluoroscopic guidance with [...] Complications:None. Specimens removed:None. Assistants:None. IMPRESSION: A power-injectable, 5-Turkmen, 39 cm in length peripherally inserted central catheter (PICC) was placed via the right basilic vein using image guidance and without incident as described above.The catheter is ready for routine use. The patient's indwelling right internal jugularvenous port catheter was removed without incident as described above. Thank you for allowing us to participate in the care of your patient. [id number] Procedure Note Hm Interface, Radiology Conversion - [...] was placed over the wire. A 5 Turkmen catheter was severed to 39 cm in length. The catheter was introduced dkoe-lbf-mwtw and positioned using real-time fluoroscopic guidance with [...] removed: None. Assistants: None. IMPRESSION: A power-injectable, 5-Turkmen, 39 cm in length peripherally inserted central catheter (PICC) was placed via the right basilic vein using image guidance and without incident as described above. The catheter is ready for routine use. The patient's indwelling right internal jugular venous port catheter was removed without incident as described above. Thank you for allowing us to participate in the care of your patient. [id number] * US PICC Line Vascular Insertion (11/11/2016 5:32 PM) Specimen Performing Laboratory [facility] [address] [address] Narrative Examination:PICC LINE INSERTION US Clinical history:"GASTROPARESIS, [...] sheath was placed over the wire.A 5 Turkmen catheter was severed to 39 cm in length.The catheter was introduced bjkr-etm-wikf and positioned using real-time fluoroscopic guidance with [...] Complications:None. Specimens removed:None. Assistants:None. IMPRESSION: A power-injectable, 5-Turkmen, 39 cm in length peripherally inserted central catheter (PICC) was placed via the right basilic vein using image guidance and without incident as described above.The catheter is ready for routine use. The patient's indwelling right internal jugularvenous port catheter was removed without incident as described above. Thank you for allowing us to participate in the care of your patient. [id number] Procedure Note Hm Interface, Radiology Conversion - [...] was placed over the wire. A 5 Turkmen catheter was severed to 39 cm in length. The catheter was introduced sfoi-zoe-zhnv and positioned using real-time fluoroscopic guidance with [...] removed: None. Assistants: None. IMPRESSION: A power-injectable, 5-Turkmen, 39 cm in length peripherally inserted central catheter (PICC) was placed via the right basilic vein using image guidance and without incident as described above. The catheter is ready for routine use. The patient's indwelling right internal jugular venous port catheter was removed without incident as described above. Thank you for allowing us to participate in the care of your patient. [id number] * Urine eosinophils (11/08/2016 3:00 PM) Component Value Ref Range Eosinophils, urine NONE Specimen Performing Laboratory [facility] DEPARTMENT OF PATHOLOGY AND GENOMIC MEDICINE [address] [place] [address] * Urine drugs of abuse screen (11/08/2016 3:00 PM) Component Value Ref Range Amphetamine screen, urine Negative Methamphetamine screen, Negative urine Barbiturate screen, urine Negative Benzodiazepine screen, Negative urine Cocaine screen, urine Negative Methadone screen, urine FTComment: 11/08/2016 16:19 Testing not performed. [facility] Opiates screen, urine Positive (A) Phencyclidine screen, [...] for medical purposes only. Specimen Performing Laboratory [facility] DEPARTMENT OF PATHOLOGY AND GENOMIC MEDICINE [address] [place], [place] [address] * Manual differential (11/07/2016 6:17 AM) Component Value Ref Range Manual differential PERFORMED Neutrophils 97.0 (H) 39.0 - 69.0 % Lymphocytes 3.0 (L) 25.0 - 45.0 % Monocytes 0.0 0.0 - 10.0 % Eosinophils 0.0 0.0 - 5.0 % Basophils 0.0 0.0 - 1.0 % Platelet slide review Carmen adequate Anisocytosis Moderate Polychromasia Moderate Specimen Performing Laboratory [facility] DEPARTMENT OF PATHOLOGY AND GENOMIC MEDICINE [address] [place] [address] * ECG 12 lead (11/07/2016 3:57 AM) Component Value Ref Range Ventricular rate 134 Atrial rate 134 ND interval 116 QRSD interval 74 QT interval 328 QTC interval 489 P axis 1 68 QRS axis 1 47 T wave axis 33 EKG impression Sinus tachycardia-Septal infarct , age undetermined-Abnormal ECG-In automated comparison with ECG of 15-SEP-2016 06:24,-Septal infarct is now present- Specimen Performing Laboratory [facility] [address] [place] [address] * Urinalysis (11/07/2016 12:50 AM) Component Value [...] Laboratory DEPARTMENT OF PATHOLOGY AND GENOMIC MEDICINE, [facility] [address] [place] [address] * hCG qualitative, urine screen (11/07/2016 12:50 AM) Component Value Ref Range hCG qualitative, urine PositiveComment: Sensitivity of HCG test: 25 mIU/ml Specimen Performing Laboratory [facility] DEPARTMENT OF PATHOLOGY AND GENOMIC MEDICINE [address] [place] [address] after 09/18/2016 Insurance Payer Benefit Subscriber ID Type Phone Address Plan / Group [facility] xxxxxxxxx HMO PLAN [facility] MEDICAID MEDICAID xxxxxxxxx Medicaid MEDICARE MEDICARE xxxxxxxxxx Medicare [place], [place] PART A AND B
[2017-09-19] MEDS: PROMETHAZINE HCL (IM) 25 MG/ML VIAL IV PRN ×2 (12:05→16:41)
[2017-09-19] MEDS: METOPROLOL TARTRATE 25 MG TAB PO SCH (13:32)
[2017-09-19 14:30] VITALS: BP 133/94
[2017-09-19 15:00] VITALS: BP 133/94
[2017-09-19] MEDS: MORPHINE SULFATE 2 MG/ML SYR IV PRN ×2 (15:00→19:22)
[2017-09-19] MEDS ORDERED: CLONIDINE HCL 0.2 MG/24 HR 1 EA PATCH TOP SCH (15:30)
[2017-09-19] MEDS ORDERED: DIATRIZOATE MEGL/DIATRIZOA SOD 30 ML BTL PO ONE (15:46)
[2017-09-19] MEDS ORDERED: SODIUM CHLORIDE 0.9% 50ML 50 ML ONE (16:28)
[2017-09-19] MEDS ORDERED: SODIUM CHLORIDE 0.9% 250ML 250 ML ONE (16:30)
--- NOTE | 2017-09-19 16:39 | Consultation ---
DATE OF CONSULTATION: September 19, 2017 HISTORY OF PRESENT ILLNESS: This is a 27-year-old female with underlying history of end-stage renal disease, prior history of Crohn's disease, type 1 diabetes with end-organ damage, underlying hypertension, status post dialysis. Wednesday she presented with nausea, vomiting and extremely elevated blood pressure. She was given labetalol, Zofran and Phenergan in the emergency room. At the moment she is awake and alert. She is still having some abdominal discomfort. Denies vomiting and admits to nausea. Denies fever, chills, shortness of breath. PHYSICAL EXAMINATION VITAL SIGNS: Blood pressure 168/88. Pulse rate 113. Afebrile. Oxygen saturation 100% room air. HEENT: Cornea clear. Oral mucosa dry. LUNGS: Decreased air entry but relatively clear. HEART: S1 and S2 audible. ABDOMEN: Otherwise soft. No apparent visceromegaly. Nonspecific tenderness epigastrium. EXTREMITIES: Lower extremities no edema. LABS: White count 10. Hemoglobin 11.9. Potassium 3.4. Creatinine 5.9. Liver function enzymes are relatively normal. ALLERGIES: , ZOFRAN, METOCLOPRAMIDE, MORPHINE AND TIZANIDINE. CURRENT MEDICATIONS: Please see MAR for details. On Phenergan p.r.n. Also received metoprolol 25 mg p.o. q.8 h. Morphine p.r.n. SOCIAL HISTORY: Patient does not smoke or drink. FAMILY HISTORY: Significant for hypertension. PHYSICAL EXAMINATION: GENERAL: Awake, alert, laying supine. No apparent distress. VITALS: As mentioned. HEAD AND NECK: Cornea clear. Mucosa dry. LUNGS: Relatively clear. HEART: S1 and S2 audible. ABDOMEN: Otherwise soft nontender. Nonspecific epigastric tenderness. LOWER EXTREMITY EXAMINATION: No edema. IMPRESSION AND PLAN: Mild hyperkalemia, underlying end-stage renal disease. No evidence of fluid overload. Plan on obtaining CT scan of the abdomen and pelvis without contrast, rule out pancreatitis. She has underlying history of Crohn's, underlying elevated blood pressure. Will place on a clonidine patch. Resume home blood pressure medication. Please see orders. Job#: [id number]
--- NOTE | 2017-09-19 17:22 | Diagnostic Imaging Report ---
EXAM: CT Abdomen and Pelvis WITHOUT contrast INDICATION: Nausea, vomiting, abdominal pain COMPARISON: CT abdomen and pelvis on 07/15/2017 and KUB from 09/13/2014 TECHNIQUE: Abdomen and pelvis were scanned utilizing a multidetector helical scanner from the lung base to the pubic symphysis without administration of IV contrast. Absence of intravenous contrast decreases sensitivity for detection of focal lesions and vascular pathology. Coronal and sagittal reformations were obtained. Routine protocol was performed. IV CONTRAST: None. ORAL CONTRAST: Gastrografin RADIATION DOSE: Total DLP: 176.4 mGy*cm Estimated effective dose: (DLP x 0.015 x size factor) mSv COMPLICATIONS: None FINDINGS: LINES and TUBES: Partially visualized left IJ hemodialysis catheter with tip in the mid right ventricle. Consider retraction. LOWER THORAX: Unremarkable HEPATOBILIARY: No focal hepatic lesions. No biliary ductal dilation. GALLBLADDER: Cholecystectomy, unchanged. SPLEEN: No splenomegaly. PANCREAS: No focal masses or ductal dilatation. ADRENALS: No adrenal nodules KIDNEYS/URETERS: Stable fusion abnormality of the kidneys located transversely at the abdominopelvic junction. No hydronephrosis. No cystic or solid mass lesions. No stones. GI TRACT: Mild circumferential wall thickening of the stomach. Positive contrast present on in the stomach and proximal small bowel. No abnormal distention, wall thickening, or evidence of bowel obstruction. Appendix is normal. PELVIC ORGANS/BLADDER: Circumferential wall thickening of the urinary bladder may be overestimated by poor distention. LYMPH NODES: No lymphadenopathy. VESSELS: Unremarkable. PERITONEUM / RETROPERITONEUM: No free air or fluid. BONES: Unremarkable. SOFT TISSUES: Unremarkable. IMPRESSION: Mild circumferential wall thickening of a mildly distending stomach may be due to inflammation. Recommend GI consultation. Otherwise, no interval change when compared to 09/15/2016. Signed by: Dr. Sherry Harrell M.D. on 09/19/2017 5:19 PM
[2017-09-19] MEDS ORDERED: PROPOFOL IV EMULSION 10 MG/ML 50 ML VIAL ONE (17:41)
[2017-09-19 19:32] VITALS: BP 133/94
[2017-09-19 19:54] VITALS: BP 124/83
[2017-09-19 21:25] VITALS: BP 124/83
[2017-09-20] VITALS (7 sets, daily range): BP systolic 122–154; BP diastolic 66–94
[2017-09-20] MEDS: PROMETHAZINE HCL (IM) 25 MG/ML VIAL IV PRN ×2 (00:06→04:20)
[2017-09-20] MEDS: METOPROLOL TARTRATE 25 MG TAB PO SCH ×4 (00:06→21:39)
[2017-09-20] MEDS: MORPHINE SULFATE 2 MG/ML SYR IV PRN ×5 (00:06→21:39)
[2017-09-20] MEDS ORDERED: HYDROCODONE/APAP 10MG-325MG TAB PO PRN (06:15)
[2017-09-20] MEDS ORDERED: PROMETHAZINE HCL 25 MG TAB PO PRN (06:15)
[2017-09-20] MEDS: METRONIDAZOLE 500MG/NS 100ML 100 ML IV SCH ×3 (06:41→21:39)
[2017-09-20] MEDS: PANTOPRAZOLE 40 MG 10ML VIAL IV SCH ×2 (06:41→17:27)
[2017-09-20 07:48] LABS: AMYLASE 71 U/L (25-125); LIPASE 12 U/L (8-78)
[2017-09-20] MEDS ORDERED: DEXTROSE 50% SYRINGE 50 ML IV PRN (08:00)
[2017-09-20] MEDS: INSULIN LISPRO 100 UNIT/1 ML 3ML VIAL SQ SCH ×4 (08:00→21:00)
[2017-09-20 08:10] LABS: CHOL/HDL RATIO 4.7 (3.0-3.6)
[2017-09-20] MEDS: CALCIUM CARBONATE 500 MG CHEWABLE TABS PO SCH (08:22)
[2017-09-20] MEDS: HYDRALAZINE HCL 100 MG TABLET PO SCH ×3 (08:22→21:38)
[2017-09-20] MEDS: INSULIN DETEMIR 100 UNIT/ML PEN SQ SCH ×2 (08:23→21:00)
[2017-09-20] MEDS ORDERED: PROMETHAZINE 25MG/ NS 50ML (IV) IV PRN (08:45)
[2017-09-20] MEDS: PROMETHAZINE 12.5MG/ NACL 0.9% 12.5 MG/50 ML BAG IV PRN ×3 (08:53→21:39)
--- NOTE | 2017-09-20 10:52 | History and Physical ---
PRIMARY CARE PHYSICIAN: Dr. Maria Ines Westfall TAX CLERK: Dr. Mitchell GI SPECIALIST: Dr. Juan J Hsieh CHIEF COMPLAINT: Abdominal pain, nausea and vomiting. HISTORY OF PRESENT ILLNESS: This is a 27-year-old woman with a history of intractable nausea, vomiting and gastritis, now developing similar symptoms. The last flare up was about 2 months ago. She does have a history of Crohn disease and gastritis. She had some subjective fevers a few days ago. She is admitted for further evaluation and management. Denies any diarrhea. The patient was found to have a blood pressure of 227/129 and heart rate of 130. PAST MEDICAL HISTORY: Intractable nausea and vomiting secondary to gastritis, gastritis, dehydration, end-stage renal disease, on hemodialysis, type 1 diabetes for about 15 years, coronary artery disease, hypertension, anemia of chronic disease. Crohn disease, diabetic gastroparesis, depression. PAST SURGICAL HISTORY: Cholecystectomy. ALLERGIES: PER ELECTRONIC MEDICAL RECORD. FAMILY/SOCIAL HISTORY: Patient denies any alcohol, illicits or cigarettes. MEDICATIONS: Per electronic medical record. REVIEW OF SYSTEMS: Denies any dizziness or chest pain. PHYSICAL EXAMINATION VITAL SIGNS: Have been reviewed. GENERAL: A tired-appearing woman resting in bed. HEENT: Anicteric. Pupils respond to light. No oral lesions. CARDIOVASCULAR: Normal S1 and S2. LUNGS: Moderate breath sounds. ABDOMEN: Soft, nontender and nondistended. EXTREMITIES: No edema or calf tenderness. She has a left arm bruit. She has a left chest dialysis catheter in place. SKIN: Dry. PSYCHIATRIC: Flat affect. NEUROLOGICAL: Alert and oriented times 3. Moving all extremities. LABS: Reviewed. MEDICATIONS: Reviewed. ASSESSMENT AND PLAN: A 27-year-old woman with: 1. Hypertensive emergency with vomiting: Continue blood pressure medication regimen. Blood pressure is already improving after starting on beta mary jo and other medications. 2. Acute gastroenteritis with intractable nausea and vomiting: Use Flagyl and proton pump inhibitor. Also, add Tums. 3. History of gastritis and diabetic gastroparesis: Will treat symptomatically. 4. Diabetes mellitus, type 1: Check hemoglobin A1c and lipid panel. Restart home medications. 5. End-stage renal disease, on hemodialysis: Defer to nephrology. 6. Prophylaxis: Will use intravenous proton pump inhibitor and will use sequential compression devices. 7. Disposition: Esophagogastroduodenoscopy planned for today. Dialysis per nephrology. Job#: [id number] [place]
[2017-09-20] MEDS ORDERED: FENTANYL CITRATE/PF 100MCG/2 ML INJ ONE (13:53)
--- NOTE | 2017-09-20 15:37 | Operative Report ---
DATE OF PROCEDURE: September 20, 2017 REFERRING PHYSICIAN: Dr. Aldair Sigala. PROCEDURE PERFORMED: Esophagogastroduodenoscopy with biopsies. INDICATIONS FOR EGD: Epigastric pain, nausea, and vomiting. MEDICATIONS: Patient was done under MAC. Please see anesthesiologist's note. PROCEDURE: With the patient in left lateral decubitus position, flexible fiberoptic Olympus gastroscope was introduced into the esophagus under direct visualization without any difficulty. There was some patchy erythema noted in distal esophagus. The scope was then advanced with ease into the stomach and a large amount of retained liquid and solid debris was noted in the stomach, which is consistent with gastroparesis. The mucosa overlying the antrum and the body revealed some patchy intense erythema and [id number] edema and biopsies were obtained and sent to stain for H. pylori. Pylorus appeared to be of normal contour and shape, was intubated with ease, and the scope was advanced all the way to the second portion of the duodenum. The scope was then withdrawn slowly. Mucosa overlying the proximal second portion and the duodenal bulb appeared to be within normal limits. The scope was then withdrawn back into the stomach and retroflexed and the mucosa overlying the fundus and the cardia appeared to be within normal limits. The scope was then straightened out. The stomach was decompressed. The scope was subsequently withdrawn. Patient tolerated the procedure well. IMPRESSION 1. Distal esophagitis. 2. Gastritis, biopsied. Biopsies sent to stain for H. pylori. 3. Large amount of retained liquid and solid debris compatible with some degree of gastroparesis. PLAN: Followup histology. Continue current therapy. Initiate full liquid renal diet. Job#: [id number] [facility] cc:Dr. Aldair Sigala
[2017-09-20] MEDS ORDERED: ZOLPIDEM TARTRATE 10 MG TAB PO PRN (21:00)
[2017-09-20] MEDS ORDERED: NON-FORMULARY MEDICATION (Insulin Detemir (Levemir) 30 UNITS) SQ SCH (21:00)
[2017-09-20] MEDS ORDERED: SODIUM CHLORIDE 0.9% 100 ML 100 ML ONE (21:29)
[2017-09-21] VITALS: BP 85/42
[2017-09-21] MEDS: MORPHINE SULFATE 2 MG/ML SYR IV PRN (01:30)
[2017-09-21 02:05] VITALS: BP 85/42
[2017-09-21] MEDS ORDERED: Calcium Carbonate 500MG Chew PO (03:28)
[2017-09-21] MEDS ORDERED: LOPRESSOR25 MG PO (03:28)
[2017-09-21] MEDS ORDERED: FLAGYL500 MG PO ×2 (03:54→03:55)
[2017-09-21 04:39] VITALS: BP 88/52
[2017-09-21] MEDS: METRONIDAZOLE 500MG/NS 100ML 100 ML IV SCH (05:44)
[2017-09-21 06:25] VITALS: BP 108/64
[2017-09-21 06:50] LABS: BASOPHILS % 0.6 % (0.0-1.0); EOSINOPHILS # (AUTO) 0.2 (0.0-0.4); EOSINOPHILS % 4.6 % (0.0-6.0); HEMATOCRIT 31.8 % (34.2-44.1); HEMOGLOBIN 10.2 g/dL (12.0-16.0); LYMPHOCYTES # (AUTO) 1.9 (1.0-3.2); LYMPHOCYTES % 35.9 % (18.0-39.1); MEAN CORPUSCULAR HEMOGLOBIN 29.3 pg (28-32); MEAN CORPUSCULAR HGB CONC 32.1 g/dL (31-35); MEAN CORPUSCULAR VOLUME 91.4 fL (81-99); MONOCYTES # (AUTO) 0.4 (0.2-0.8); MONOCYTES % 7.3 % (4.4-11.3); NEUTROPHILS # (AUTO) 2.7 (2.1-6.9); NEUTROPHILS % 51.2 % (38.7-80.0); PLATELET COUNT 217 x10e3/uL (140-360); RED BLOOD COUNT 3.48 x10e6/uL (3.6-5.1); RED CELL DISTRIBUTION WIDTH 15.3 % (11.7-14.4)
[2017-09-21 07:17] LABS: ANION GAP 21.7 mmol/L (8-16); CALCIUM 8.5 mg/dL (8.4-10.2); POTASSIUM 3.7 mmol/L (3.5-5.1)
[2017-09-21 07:19] LABS: CREATININE, SERUM 9.19 mg/dL (0.57-1.11)
[2017-09-21] MEDS: INSULIN LISPRO 100 UNIT/1 ML 3ML VIAL SQ SCH (07:30)
[2017-09-21 08:20] VITALS: BP 101/58
[2017-09-21] MEDS ORDERED: METOPROLOL TARTRATE 25 MG TAB PO SCH (09:00)
[2017-09-21] MEDS ORDERED: HYDRALAZINE HCL 100 MG TABLET PO SCH (09:00)
[2017-09-21] MEDS: INSULIN DETEMIR 100 UNIT/ML PEN SQ SCH (09:00)
[2017-09-21] MEDS: PANTOPRAZOLE 40 MG 10ML VIAL IV SCH (09:45)
[2017-09-21] MEDS: CALCIUM CARBONATE 500 MG CHEWABLE TABS PO SCH (09:45)
== END 2017-09-21 10:49 | disposition home or self-care (01) | DRG 73 ==
LOC: ER 07:05 → ERHOLD 11:23 → IMCU 13:15 → OBSVTOIN 09-20 16:00 → MED/SURG 09-20 19:49
PROVIDERS: ADMIT Internal Medicine; ATTEND Internal Medicine
PROC: 0DB68ZX Excision of Stomach, Via Natural or Artificial Opening Endoscopic, Diagnostic (ICD-10-PCS; 2017-09-20)
PROC: 0DB78ZX Excision of Stomach, Pylorus, Via Natural or Artificial Opening Endoscopic, Diagnostic (ICD-10-PCS; principal; 2017-09-20 12:30)
DX: E10.43 Type 1 diabetes mellitus with diabetic autonomic (poly)neuropathy (principal); N18.6 End stage renal disease; E10.22 Type 1 diabetes mellitus with diabetic chronic kidney disease; I12.0 Hypertensive chronic kidney disease with stage 5 chronic kidney disease or end stage renal disease; K50.90 Crohn's disease, unspecified, without complications; E87.5 Hyperkalemia; K29.70 Gastritis, unspecified, without bleeding; I25.10 Atherosclerotic heart disease of native coronary artery without angina pectoris; D63.8 Anemia in other chronic diseases classified elsewhere; K31.84 Gastroparesis; Z99.2 Dependence on renal dialysis
CPT/HCPCS: 36415; 43239; 74176; 80048; 80053; 80061; 82150; 82948; 83036; 83690; 84702; 85025; 87340; 88305; 88312; 96372; 99284; G0378; J1200; J2270; J2550; J7050

== ENCOUNTER 2017-11-02 16:26 | Inpatient (IN) | payer MEDICARE ==
[~2017-11-02] VITALS: Ht 157.5 cm; Wt 58.1 kg
[~2017-11-02 16:26] MED LIST changes: +Calcium Carbonate 500MG Chew PO; +LOPRESSOR25 MG PO
--- OUTSIDE RECORDS SUMMARY | 2017-11-02 16:30 | XMS REPORT | Clinical Summary ---
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 eyjo-eu-zcfpye technique with multiplanar MIP reconstruction were obtained. FINDINGS: There is normal flow signal with no significant stenosis or occlusion along bilateral intracranial ICAs, ACAs, and MCAs. The anterior communicating artery complex is unremarkable. There is normal flow signal with no significant stenosis or occlusion along bilateral vertebral arteries, basilar artery, cerebellar arteries, and newsperson. The vertebral arteries are codominant. The posterior communicating arteries are unremarkable. There is no evidence of cerebral aneurysm in the proximal [place] within limits of MRA technique. IMPRESSION: Unremarkable head MRA with no significant stenosis or occlusion in the proximal [place]. [facility]-[id number] Procedure Note [facility], Radiology Results Incoming - 04/20/2017 3:37 PM CDT EXAMINATION: MRA HEAD WO CONTRAST CLINICAL HISTORY: HEADACHE ACUTE SEVERE THUNDERCLAP WORST BRAN OF LIFE COMPARISON: Concurrent brain MRI on 04/20/2017. TECHNIQUE: Head MRA using 3D cprw-wb-floqka technique with multiplanar MIP reconstruction were obtained. FINDINGS: There is normal flow signal with no significant stenosis or occlusion along bilateral intracranial ICAs, ACAs, and MCAs. The anterior communicating artery complex is unremarkable. There is normal flow signal with no significant stenosis or occlusion along bilateral vertebral arteries, basilar artery, cerebellar arteries, and newsperson. The vertebral arteries are codominant. The posterior communicating arteries are unremarkable. There is no evidence of cerebral aneurysm in the proximal [place] within limits of MRA technique. IMPRESSION: Unremarkable head MRA with no significant stenosis or occlusion in the proximal [place]. [facility]-[id number] * Syphilis treponemal IgG (04/20/2017 10:38 AM) Component Value Ref Range Syphilis treponemal IgG Non-reactiveComment: Non-reactive: No serological Non-reactive evidence of Syphilis infection Specimen Performing Laboratory Serum [facility] DEPARTMENT OF PATHOLOGY AND GENOMIC MEDICINE [address] [place] [address] * Rapid HIV 1 & 2 (04/20/2017 10:38 AM) Component Value Ref Range Rapid HIV 1 and 2 Non-Reactive Non-Reactive Specimen Performing Laboratory Blood [facility] DEPARTMENT OF PATHOLOGY AND GENOMIC MEDICINE [address] [place] [address] * Sedimentation rate (04/20/2017 10:38 AM) Only the most recent of 2 results within the time period is included. Component Value Ref Range Sedimentation rate 23 (H) 0 - 20 mm/hr Specimen Performing Laboratory Blood [facility] DEPARTMENT OF PATHOLOGY AND GENOMIC MEDICINE [address] [place] [address] * Thyroid stimulating hormone (04/20/2017 10:38 AM) Component Value Ref Range TSH 1.04 0.27 - 4.20 uIU/mL Specimen Performing Laboratory Blood [facility] DEPARTMENT OF PATHOLOGY AND GENOMIC MEDICINE [address] [place] [address] * Vitamin B12 level (04/20/2017 10:38 AM) Component Value Ref Range Vitamin B12 599 211 - 946 pg/mL Comment: Significant overlap exists between normal and deficiency states. However, most patients with deficiencies will have Serum B12 <200 pg/mL. Specimen Performing Laboratory Serum [facility] DEPARTMENT OF PATHOLOGY AND GENOMIC MEDICINE [address] [place] [address] * Lipid panel (04/20/2017 10:38 AM) Only [...] triglycerides (>=200 mg/dL) Specimen Performing Laboratory Blood [facility] DEPARTMENT OF PATHOLOGY AND GENOMIC MEDICINE [address] [place] [address] * CT Head Wo Contrast (04/20/2017 8:59 AM) Only the most recent of 2 results within the time period is included. Specimen Performing Laboratory [facility] [address] [place] [address] Narrative EXAMINATION: CT HEAD WO CONTRAST CLINICAL [...] intact. IMPRESSION: No acute intracranial abnormality identified. [facility]-[id number] Procedure Note Interface, Radiology Results Incoming - [...] intact. IMPRESSION: No acute intracranial abnormality identified. [facility]-[id number] * hCG qualitative, serum screen (04/20/2017 8:13 AM) Only the most recent of 4 results within the time period is included. Component Value Ref Range hCG qualitative, serum NegativeComment: Sensitivity of HCG test: 25 mIU/mL Specimen Performing Laboratory Blood [facility] DEPARTMENT OF PATHOLOGY AND GENOMIC MEDICINE [address] [place] [address] * CK-MB (04/20/2017 6:20 AM) Component Value Ref Range CK-MB 5.5 (H) 1.0 - 5.3 ng/mL Specimen Performing Laboratory Plasma specimen [facility] DEPARTMENT OF PATHOLOGY AND GENOMIC MEDICINE [address] [place] [address] * CRITICAL CARE (04/20/2017 4:52 AM) Narrative [...] specimen DEPARTMENT OF PATHOLOGY AND GENOMIC MEDICINE, [facility] [address] [place] [address] Narrative Test performed at [facility]. * PV duplex venous upper extremity (04/04/2017 10:54 AM) Specimen Performing Laboratory [facility] [address] [place] [address] Narrative EXAMINATION:US DUPLEX VENOUS UPPER EXTREMITY LEFT [...] upper extremity, or the contralateral subclavian vein [facility]-[id number] Procedure Note [facility], Radiology Results Incoming - 04/04/2017 11:01 AM [...] upper extremity, or the contralateral subclavian vein [facility]-[id number] * GENERAL (04/01/2017 8:33 PM) Narrative ELOISE [...] Portable (03/31/2017 1:02 AM) Specimen Performing Laboratory [facility] [address] [place] [address] Narrative Examination:XR ABDOMEN 1 VW PORTABLE Clinical History: ABDOMINAL PAIN, Diarrhea, Vomiting Comparison: None. Findings: Single frontal view of the abdomen is obtained. The bowel gas pattern is unremarkable. No bowel dilatation is seen. No free air is seen. Right upper quadrant surgical clips are noted. IMPRESSION: 1. No focal abnormality identified in the abdomen. [facility]-[id number] Procedure Note Interface, Radiology Results Incoming - [...] No focal abnormality identified in the abdomen. [facility]-[id number] * CRITICAL CARE (03/30/2017 6:31 PM) Narrative [...] administrations. * CRITICAL CARE (02/13/2017 2:51 PM) Narrative Yesenia Rodriguez DO 02/13/20172:51 PM Critical Care Performed [...] Site: Arm Right Specimen Performing Laboratory Blood [facility] DEPARTMENT OF PATHOLOGY AND GENOMIC MEDICINE [address] [place] [address] * Blood culture, anaerobic (02/13/2017 11:55 AM) Component Value Ref Range Blood culture isolate, No growth after 5 days of incubation. anaerobic Comment: Specimen Information Specimen Source: Blood Specimen Site: Arm Left Specimen Performing Laboratory Blood [facility] DEPARTMENT OF PATHOLOGY AND GENOMIC MEDICINE [address] [place] [address] * Echocardiogram complete w contrast and 3D [...] E/A ratio 0.81 Specimen Performing Laboratory [facility] [address] [place] [address] Narrative Left Ventricular ejection fraction is 60 [...] speckled (A) Not-Detected Specimen Performing Laboratory Blood [facility] DEPARTMENT OF PATHOLOGY AND GENOMIC MEDICINE [address] [place] [address] * PHILOMENA (01/30/2017 1:16 PM) Component Value Ref Range PHILOMENA screen Detected (A) Not-Detected Specimen Performing Laboratory Blood [facility] [place] [address] * Hepatitis B surface Ab, quantitative (01/30/2017 [...] as greater than 1,000.00 IU/L. Performed by [email or web address], [address] [place] [id number] [email or web address] CU[employer] and some sugar, Blade Hoff MD - Lab. Director Specimen Performing Laboratory Serum 24/[address] [facility] [place] [address] * Urinalysis screen and microscopy, with reflex [...] None seen UA Specimen Performing Laboratory Urine [facility] DEPARTMENT OF PATHOLOGY AND GENOMIC MEDICINE [address] [place] [address] * Urine culture (01/30/2017 12:08 PM) Only the most recent of 2 results within the time period is included. Component Value Ref Range Urine culture SEE COMMENTComment: Bacteriuria screen negative. Specimen Performing Laboratory [facility] DEPARTMENT OF PATHOLOGY AND GENOMIC MEDICINE [address] [place] [address] * PV Duplex Venous Lower Extremity (01/30/2017 8:21 AM) Specimen Performing Laboratory [facility] [address] [place] [address] Narrative EXAMINATION:US DUPLEX VENOUS LOWER EXTREMITY BILATERAL [...] is no evidence of deep venous thrombosis. [id number] Procedure Note Interface, Radiology Results Incoming - [...] is no evidence of deep venous thrombosis. [id number] * CT Stroke Brain Wo Contrast (01/30/2017 5:27 AM) Specimen Performing Laboratory [facility] [address] [place] [address] Narrative EXAMINATION: CT STROKE BRAIN WO CONTRAST [...] at 01/30/2017 5:46 AM who verbalized understanding. [facility]-[id number] Procedure Note Interface, Radiology Results Incoming - [...] at 01/30/2017 5:46 AM who verbalized understanding. [facility]-[id number] * Smear review (12/09/2016 3:50 AM) Component Value Ref Range Platelet slide review Carmen adequate Anisocytosis Moderate Spherocytes Moderate (A) Ovalocytes Moderate Tay cells Moderate (A) Giant platelets Occasional Specimen Performing Laboratory [facility] DEPARTMENT OF PATHOLOGY AND GENOMIC MEDICINE [address] [place] [address] * US Single Less Than 14 Weeks (12/08/2016 2:46 PM) Only the most recent of 5 results within the time period is included. Specimen Performing Laboratory [facility] [address] [place] [address] Narrative EXAMINATION:US SINGLE LESS THAN 14 WEEKS [...] participate in the care of your patient. [facility]-[id number] Procedure Note Interface, Radiology Results Incoming - 12/08/2016 4:04 PM [...] participate in the care of your patient. [facility]-[id number] * Cortisol level, AM (12/08/2016 6:20 AM) Component Value Ref Range Cortisol, AM 14 6 - 18 ug/dL Specimen Performing Laboratory Plasma specimen [facility] DEPARTMENT OF PATHOLOGY AND GENOMIC MEDICINE [address] [place] [address] * Hemoglobin & hematocrit (12/06/2016 6:25 AM) Component Value Ref Range HGB 8.1 (L) 12.0 - 16.0 g/dL HCT 25.6 (L) 37.0 - 47.0 % Specimen Performing Laboratory Blood [facility] [place] [address] * Parathyroid hormone (12/06/2016 6:25 AM) Component Value Ref Range PTH 205 (H) 15 - 65 pg/mL Specimen Performing Laboratory Blood [facility] [address] * CBC hemogram (12/05/2016 5:45 AM) Only [...] 0.00 /100 WBC Specimen Performing Laboratory Blood [facility] DEPARTMENT OF PATHOLOGY AND [facility] [address] [place] [address] * GENERAL (12/03/2016 3:43 PM) Narrative ELOISE [...] Red Cells AS1 Leukored Irrad Unit number [id number] Product code [id number] Dispense status Transfused Blood expiration date 20161209 Blood type code 9500 Blood type O NEGATIVE Specimen Performing Laboratory [facility] DEPARTMENT OF PATHOLOGY AND GENOMIC MEDICINE [address] [place] [address] * Type and screen (12/02/2016 10:00 AM) Only the most recent of 3 results within the time period is included. Component Value Ref Range ABO grouping O Rh type NEG Antibody screen (gel) NEG Specimen Performing Laboratory Blood [facility] DEPARTMENT OF PATHOLOGY [place] [address] * Urine culture screen (11/28/2016 11:00 AM) [...] gerardo 10-4 cfu/ml Specimen Performing Laboratory Urine [facility] DEPARTMENT OF PATHOLOGY AND GENOMIC MEDICINE [address] [place] [address] Narrative Specimen Site is : Clean catch Specimen Source is : Urine * Lipase level (11/28/2016 10:10 AM) Component Value Ref Range Lipase 13 13 - 60 U/L Specimen Performing Laboratory [facility] DEPARTMENT OF PATHOLOGY AND GENOMIC MEDICINE [address] [place] [address]. [place] [address] * Creatinine level (11/18/2016 6:20 PM) Component Value Ref Range Creatinine 2.6 (H) 0.5 - 0.9 mg/dL Specimen Performing Laboratory [facility] DEPARTMENT OF PATHOLOGY AND GENOMIC MEDICINE [address] [place] [address]. [place] [address] * USPV Venous Upper Extremity Right (11/18/2016 7:00 AM) Specimen Performing Laboratory [facility] [address] [place] [address] Narrative EXAMINATION:USPV EXTREMITY JORGE UPPER UNI RIGHT [...] venous thrombosis of the right upper extremity. [facility]-[id number] Procedure Note [facility], Radiology Conversion - 11/18/2016 7:32 AM CDT [...] venous thrombosis of the right upper extremity. [facility]-[id number] * US Abdomen Portable (11/18/2016 6:20 AM) Specimen Performing Laboratory [facility] [address] [place] [address] Narrative EXAM: US ABDOMEN PORTABLE CLINICAL DATA:Abdomen [...] ascites and a small right pleural effusion. [id number] Procedure Note Hm Interface, Radiology Conversion - [...] ascites and a small right pleural effusion. [id number] * Vancomycin level, trough (11/17/2016 5:02 PM) Only the most recent of 7 results within the time period is included. Component Value Ref Range Vancomycin, trough 16.9 10.0 - 20.0 ug/mL Comment: Therapeutic Ranges: Peak 30.0 - 40.0 ug/mL Trough 10.0 - 20.0 ug/mL Specimen Performing Laboratory [facility] DEPARTMENT OF PATHOLOGY AND [facility] [address] [place] [address] * Sodium level, urine, random (11/12/2016 5:58 PM) Component Value Ref Range Urine sodium 66 mEq/L concentration Total volume, urine 40 mL Urine sodium excretion 3Comment: Varies with diet. mEq/vol Specimen Performing Laboratory [facility] DEPARTMENT OF PATHOLOGY AND [address] [address] * Osmolality, urine (11/12/2016 5:58 PM) Component Value Ref Range Osmolality, urine 262 50 - 1,400 mOsm/kg Specimen Performing Laboratory [facility] DEPARTMENT OF PATHOLOGY AND [address] [address] * IR PICC Line Insertion Fluoroscopy (11/11/2016 5:32 PM) Specimen Performing Laboratory [facility] [address] [place] [address] Narrative Examination:PICC LINE INSERTION FLUORO Clinical history:"Very [...] sheath was placed over the wire.A 5 Guatemalan catheter was severed to 39 cm in length.The catheter was introduced ipdi-ygg-necx and positioned using real-time fluoroscopic guidance with [...] Complications:None. Specimens removed:None. Assistants:None. IMPRESSION: A power-injectable, 5-Guatemalan, 39 cm in length peripherally inserted central catheter (PICC) was placed via the right basilic vein using image guidance and without incident as described above.The catheter is ready for routine use. The patient's indwelling right internal jugularvenous port catheter was removed without incident as described above. Thank you for allowing us to participate in the care of your patient. [facility]-[id number] Procedure Note Hm Interface, Radiology Conversion - [...] was placed over the wire. A 5 [place] catheter was severed to 39 cm in length. The catheter was introduced dxld-pxw-jdwi and positioned using real-time fluoroscopic guidance with [...] removed: None. Assistants: None. IMPRESSION: A power-injectable, 5-[place], 39 cm in length peripherally inserted central catheter (PICC) was placed via the right basilic vein using image guidance and without incident as described above. The catheter is ready for routine use. The patient's indwelling right internal jugular venous port catheter was removed without incident as described above. Thank you for allowing us to participate in the care of your patient. [facility]-[id number] * IR Central Catheter Placement Replace Removal Fluoroscopy (11/11/2016 5:32 PM ) Specimen Performing Laboratory [address] [address] Narrative Examination:CNTR CATH PLCMNT REPL REM FLUO [...] sheath was placed over the wire.A 5 [place] catheter was severed to 39 cm in length.The catheter was introduced kgwk-dkq-xmae and positioned using real-time fluoroscopic guidance with [...] Complications:None. Specimens removed:None. Assistants:None. IMPRESSION: A power-injectable, 5-[place]atem[place], 39 cm in length peripherally inserted central catheter (PICC) was placed via the right basilic vein using image guidance and without incident as described above.The catheter is ready for routine use. The patient's indwelling right internal jugularvenous port catheter was removed without incident as described above. Thank you for allowing us to participate in the care of your patient. [facility]-[id number] Procedure Note Hm Interface, Radiology Conversion - [...] was placed over the wire. A 5 Guatemalan catheter was severed to 39 cm in length. The catheter was introduced iumk-qpv-gxgm and positioned using real-time fluoroscopic guidance with [...] removed: None. Assistants: None. IMPRESSION: A power-injectable, 5-Guatemalan, 39 cm in length peripherally inserted central catheter (PICC) was placed via the right basilic vein using image guidance and without incident as described above. The catheter is ready for routine use. The patient's indwelling right internal jugular venous port catheter was removed without incident as described above. Thank you for allowing us to participate in the care of your patient. [facility]-[id number] * US PICC Line Vascular Insertion (11/11/2016 5:32 PM) Specimen Performing Laboratory [facility] [place] [address] Narrative Examination:PICC LINE INSERTION US Clinical history:"GASTROPARESIS, [...] sheath was placed over the wire.A 5 Guatemalan catheter was severed to 39 cm in length.The catheter was introduced virz-iwg-opgx and positioned using real-time fluoroscopic guidance with [...] Complications:None. Specimens removed:None. Assistants:None. IMPRESSION: A power-injectable, 5-Guatemalan, 39 cm in length peripherally inserted central catheter (PICC) was placed via the right basilic vein using image guidance and without incident as described above.The catheter is ready for routine use. The patient's indwelling right internal jugularvenous port catheter was removed without incident as described above. Thank you for allowing us to participate in the care of your patient. [id number] Procedure Note Hm Interface, Radiology Conversion - [...] was placed over the wire. A 5 Guatemalan catheter was severed to 39 cm in length. The catheter was introduced pjmr-ows-qrkf and positioned using real-time fluoroscopic guidance with [...] removed: None. Assistants: None. IMPRESSION: A power-injectable, 5-Guatemalan, 39 cm in length peripherally inserted central catheter (PICC) was placed via the right basilic vein using image guidance and without incident as described above. The catheter is ready for routine use. The patient's indwelling right internal jugular venous port catheter was removed without incident as described above. Thank you for allowing us to participate in the care of your patient. [facility]-[id number] * Urine eosinophils (11/08/2016 3:00 PM) Component Value Ref Range Eosinophils, urine NONE Specimen Performing Laboratory [facility] DEPARTMENT OF PATHOLOGY AND GENOMIC MEDICINE [address] [place] [address] * Urine drugs of abuse screen (11/08/2016 3:00 PM) Component Value Ref Range Amphetamine screen, urine Negative Methamphetamine screen, Negative urine Barbiturate screen, urine Negative Benzodiazepine screen, Negative urine Cocaine screen, urine Negative Methadone screen, urine FTComment: 11/08/2016 16:19 Testing not performed. [facility] Opiates screen, urine Positive (A) Phencyclidine [...] for medical purposes only. Specimen Performing Laboratory [facility] DEPARTMENT OF PATHOLOGY AND GENOMIC MEDICINE [address] [place] [address] * Manual differential (11/07/2016 6:17 AM) Component Value Ref Range Manual differential PERFORMED Neutrophils 97.0 (H) 39.0 - 69.0 % Lymphocytes 3.0 (L) 25.0 - 45.0 % Monocytes 0.0 0.0 - 10.0 % Eosinophils 0.0 0.0 - 5.0 % Basophils 0.0 0.0 - 1.0 % Platelet slide review Carmen adequate Anisocytosis Moderate Polychromasia Moderate Specimen Performing Laboratory [facility] DEPARTMENT OF PATHOLOGY AND GENOMIC MEDICINE [address] [place] [address] * ECG 12 lead (11/07/2016 3:57 AM) Component Value Ref Range Ventricular rate 134 Atrial rate 134 MD interval 116 QRSD interval 74 QT interval 328 QTC interval 489 P axis 1 68 QRS axis 1 47 T wave axis 33 EKG impression Sinus tachycardia-Septal infarct , age undetermined-Abnormal ECG-In automated comparison with ECG of 15-SEP-2016 06:24,-Septal infarct is now present- Specimen Performing Laboratory [facility] [address] [place] [address] * Urinalysis (11/07/2016 12:50 AM) Component Value [...] Laboratory DEPARTMENT OF PATHOLOGY AND GENOMIC MEDICINE, [facility] [address] [place] [address] * hCG qualitative, urine screen (11/07/2016 12:50 AM) Component Value Ref Range hCG qualitative, urine PositiveComment: Sensitivity of HCG test: 25 mIU/ml Specimen Performing Laboratory [facility] DEPARTMENT OF PATHOLOGY AND GENOMIC MEDICINE [address] [place] [address] after 11/01/2016 Insurance Payer Benefit Subscriber ID Type Phone Address Plan / Group [facility] xxxxxxxxx HMO PLAN [facility] MEDICAID MEDICAID xxxxxxxxx Medicaid MEDICARE MEDICARE xxxxxxxxxx Medicare [place], [place] PART A AND B
--- OUTSIDE RECORDS SUMMARY | 2017-11-02 16:30 | XMS REPORT | Clinical Summary ---
Author Author [facility] Address Unknown Phone Unavailable Care Team Providers Care Packing Inspector Name Role Phone PCP Unavailable Allergies Active Allergy Reactions Severity Noted Date Comments Hydromorphone High 05/15/2017 Drug Seeking Behavior. Admitted greater than 20 times in the past year. Morphine Itching, Nausea And Medium 11/03/2014 Vomiting Lisinopril 10/25/2015 Metoclopramide Hcl Other (See Comments) 02/19/2013 Mouth shifted to the side Shellfish Containing Itching, Swelling 10/27/2017 Makes throat swell Products Ketorolac Other (See Comments) 02/19/2013 jittery Tizanidine Other (See Comments) 05/11/2015 Like i cannot move my body as verbalized by the pt Ondansetron Hcl (Pf) 06/07/2015 More nausea Current Medications Prescription Sig. Disp. Refills Start End Date Status Date insulin lispro (HUMALOG) Inject 13 Units 30 mL 0 10/16/19 Active 100 unit/mL InPn subcutaneously 3 (three) 17 times daily with meals. insulin detemir (LEVEMIR) Inject 0.3 mLs (30 Units 15 mL 0 10/29/19 Active 100 unit/mL (3 mL) InPn total) subcutaneously 17 injectionIndications: every morning With type 1 diabetes mellitus breakfast and dinner.. labetalol (NORMODYNE) 200 Take 200 mg by mouth 3 Active MG tablet (three) times daily. promethazine (PHENERGAN) Take 25 mg by mouth every Active 25 MG tablet 6 (six) hours as needed for Nausea. ARIPiprazole (ABILIFY) 5 Take 5 mg by mouth daily. Active MG tablet zolpidem (AMBIEN) 10 mg Take 10 mg by mouth. Active tablet ALPRAZolam (XANAX) 1 MG Take 1 mg by mouth 2 Active tablet (two) times daily as needed for Anxiety. NIFEdipine (ADALAT CC) 60 Take 60 mg by mouth 2 Active MG 24 hr tablet (two) times daily. cloNIDine (CATAPRES-TTS) Place 1 patch onto the 4 patch 2 02/27/20 02/27/20 Active 0.3 mg/24 hr patch skin once a week. 17 18 hydrALAZINE (APRESOLINE) Take 1 tablet (100 mg 90 tablet 0 05/16/20 05/16/20 Active 100 MG tablet total) by mouth every 8 17 18 (eight) hours. QUEtiapine (SEROQUEL XR) Take 400 mg by mouth 01/01/20 Discontin 300 MG 24 hr tablet nightly . 17 ued cloNIDine (CATAPRES-TTS) Place 1 patch onto the 4 patch 0 02/07/20 02/07/20 0.3 mg/24 hr patch skin once a week. 16 17 pantoprazole (PROTONIX) Take 1 tablet (40 mg 30 tablet 0 05/07/20 Discontin 40 MG tablet total) by mouth daily. 16 17 ued sodium bicarbonate 650 MG Take 1 tablet by mouth 3 01/01/20 Discontin tablet (three) times daily. 17 ued VIT#96/FERROUS Take 1 tablet by mouth 100 tablet 0 10/16/19 02/24/20 Discontin FUM/FA ( VITAMIN daily. 17 17 ued W/IRON-FOLATE) 27 mg iron- 800 mcg Tab calcium carbonate (TUMS) Take 2 tablets (1,000 mg 120 tablet 11 10/30/19 Discontin 500 mg chewable tablet total) by mouth 2 (two) 17 18 ued times daily. cloNIDine (CATAPRES-TTS) Place 1 patch onto the 4 patch 0 10/29/19 02/06/20 Discontin 0.3 mg/24 hr patch skin once a week. 17 17 ued methyldopa (ALDOMET) 250 Take 3 tablets (750 mg 180 tablet 0 10/29/19 01/01/20 Discontin MG tablet total) by mouth every 12 17 17 ued (twelve) hours. NIFEdipine (ADALAT CC) 60 Take 1 tablet (60 mg 30 tablet 0 10/29/19 02/06/20 Discontin MG 24 hr tablet total) by mouth daily. 17 17 ued hydrALAZINE (APRESOLINE) Take 25 mg by mouth 2 05/16/20 Discontin 25 MG tablet (two) times daily . 17 ued furosemide (LASIX) 20 MG Take 20 mg by mouth 2 02/24/20 Discontin tablet (two) times daily. 17 ued carvedilol (COREG) 25 MG Take 1 tablet (25 mg 60 tablet 0 02/06/20 02/27/20 Discontin tablet total) by mouth 2 (two) 17 17 ued times daily. cloNIDine (CATAPRES-TTS) Place 1 patch onto the 4 patch 2 02/27/20 02/27/20 Discontin 0.3 mg/24 hr patch skin once a week. 17 17 ued metroNIDAZOLE (FLAGYL) Take 1 tablet (500 mg 9 tablet 0 02/27/2006/07 Discontin 500 MG tablet total) by mouth 3 (three) 17 17 ued times daily for 3 days. levoFLOXacin (LEVAQUIN) Take 1 tablet (250 mg 3 tablet 0 02/27/20 Discontin 250 MG tablet total) by mouth daily for 17 17 ued 3 days. levoFLOXacin (LEVAQUIN) Take 1 tablet (250 mg 3 tablet 0 02/27/20 250 MG tablet total) by mouth daily for 17 17 3 days. metroNIDAZOLE (FLAGYL) Take 1 tablet (500 mg 9 tablet 0 02/27/20 500 MG tablet total) by mouth 3 (three) 17 17 times daily for 3 days. acetaminophen-codeine Take 1-2 tablets by mouth 20 tablet 0 05/11/20 05/21/20 (TYLENOL #3) 300-30 mg every 4 (four) hours as 17 17 per tablet needed for Pain for up to 10 days. Max Daily Amount: 12 tablets promethazine (PHENERGAN) Place 1 suppository (25 6 suppository 0 05/1105/18/20 25 MG suppository mg total) rectally every 17 17 6 (six) hours as needed for Nausea for up to 7 days. metoclopramide HCl Take 1 tablet (5 mg 100 tablet 0 05/16/20 Discontin (REGLAN) 5 MG tablet total) by mouth 3 (three) 17 17 ued times daily before meals for 10 days. metoclopramide (REGLAN) 5 Take 1 tablet (5 mg 90 tablet 0 05/16/20 06/15/20 MG tablet total) by mouth 3 (three) 17 17 times daily before meals for 30 days. promethazine (PHENERGAN) Place 1 suppository (25 12 0 06/06/2006/13 25 MG suppository mg total) rectally every suppository 17 17 6 (six) hours as needed for Nausea for up to 7 days. 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 ([facility]) 02/04/2017 Stage 4 chronic kidney disease ([facility]) 10/25/2016 10/25/2016 Acidemia 10/25/2016 Acute on chronic renal failure ([facility]) 10/13/2016 MIKE (acute kidney injury) ([facility]) 09/01/2016 Proteinuria 09/01/2016 Hypertensive emergency 08/31/2016 Cyclical vomiting, intractable 08/31/2016 Acute cystitis without hematuria 08/31/2016 History of Clostridium difficile 08/31/2016 Diarrhea 08/10/2016 ARF (acute renal failure) ([facility]) 05/06/2016 Intractable cyclical vomiting with nausea 05/05/2016 Accelerated hypertension 02/17/2016 Uncontrolled hypertension 02/05/2016 Diabetic ketoacidosis ([facility]) 01/19/2016 Diabetes ([facility]) 01/01/2016 Diabetic gastroparesis associated with type 1 diabetes mellitus ([facility]) 2015 Uncontrolled diabetes mellitus with hypoglycemia ([facility]) 11/21/2015 Clostridium difficile colitis 11/15/2015 Colitis 11/14/2015 Hyperglycemia 11/03/2015 Hypertensive urgency 08/26/2015 Gastroparesis due to DM ([facility]) 08/26/2015 Intractable nausea and vomiting 08/26/2015 Gastroparesis due to secondary diabetes ([facility]) 07/23/2015 Colitis, acute 05/12/2015 Fever 01/16/2015 DKA (diabetic ketoacidoses) ([facility]) 12/18/2014 HTN (hypertension) 12/18/2014 Exacerbation of Crohn's disease ([facility]) 12/18/2014 Cystitis 12/05/2014 Heart murmur 12/05/2014 Abdominal pain, other specified site 11/28/2014 Malignant hypertension 10/13/2014 Gastroparesis 09/17/2014 Crohn disease 09/17/2014 Gastritis 09/17/2014 Duodenitis 09/17/2014 Gastroenteritis 09/16/2014 Diabetes mellitus (HCC) Hypertension Bipolar 1 disorder (HCC) Crohn's disease (HCC) Overview: diagnosed 2011, colonoscopy at time of diagnosis, treated by Dr. Hsieh on remicade since 2013 with good response, also on imuran increased to 100mg in 07/2014 Encounters Date Type Specialty Care Team Description 10/27/2017 Emergency General Internal Medicine Senia Rodriguez MD Nausea and vomiting in - [facility] adult (Primary 10/29/2017 MD Abdon Dx);Diabetic gastroparesis (HCC);Essential hypertension;ESRD (end stage renal disease) on dialysis (HCC);Generalized abdominal pain 06/15/2017 Emergency Emergency Medicine Senia Rodriguez MD Essential hypertension (Primary Dx);Hypertensive urgency 06/06/2017 Emergency Emergency Medicine Senia Rodriguez MD Nausea (Primary Dx);Generalized abdominal pain;Diabetic gastroparesis ([facility]);Vomiting in adult patient 05/13/2017 [facility] - Encounter MD Abdon 05/16/2017 05/10/2017 Emergency Emergency Medicine Lydia Lau MD Abdominal pain, - unspecified abdominal 05/11/2017 location (Primary Dx);Nausea and vomiting, intractability of vomiting not specified, unspecified vomiting type 04/10/2017 Emergency Emergency Medicine Skyler Galloway MD Vomiting and diarrhea (Primary Dx);Generalized abdominal pain 02/23/2017 [facility] Diabetic gastroparesis - Encounter MD Abdon (HCC) (Primary Dx) 02/26/2017 02/23/2017 Orders Only Marshall Rossi, ALICJA 02/03/2017 [facility] Internal Medicine Joshua Obrien MD Hypertensive urgency - Encounter (Primary Dx) 02/05/2017 02/03/2017 Orders Only Caity Angelo RN 01/13/2017 [facility] Hypertensive urgency - Encounter MD Abdon (Primary Dx) 01/21/2017 01/13/2017 Orders Only Caity Angelo RN 12/30/2016 [facility] General Internal Medicine [place], Liborio Zhanga, Acute on chronic renal - Encounter MD failure (HCC) (Primary 01/04/2017 Marcia Westfall Dx);Generalized abdominal PurMD agnes pain;Malignant hypertension;Anasarca after 11/01/2016 Immunizations Name Dates Previously Given Next Due Influenza TIV (IM) 09/15/2014 Influenza Three-TIV PF 09/02/2015 4+YRS Pneumococcal 02/05/2017 Polysaccharide (Pneumovax) Family History Medical History Relation Name Comments Hepatitis Brother Ulcers Brother Relation Name Status Comments Brother Brother Social History Tobacco Use Types Packs/Day Years Used Date Never Smoker Smokeless Tobacco: Never Used Alcohol Use Drinks/Week oz/Week Comments No Sex Assigned at Date Recorded Not on file Last Filed Vital Signs Vital Sign Reading Time Taken Blood Pressure 120/66 10/29/2017 2:28 PM CDT Pulse 99 10/29/2017 2:28 PM CDT Temperature 36.8 C (98.2 F) 10/29/2017 12:53 PM CDT Respiratory Rate 19 10/29/2017 12:53 PM CDT Oxygen Saturation 100% 10/29/2017 2:28 PM CDT Inhaled Oxygen - - Concentration Weight 54 kg (119 lb) 10/27/2017 5:44 PM CDT Height 157.5 cm (5' 2") 10/27/2017 5:44 PM CDT Body Mass Index 21.77 10/27/2017 5:44 PM CDT Plan of Treatment Health Maintenance Due Date Last Done Comments INFLUENZA VACCINE 04/18/2018 Procedures Procedure Name Priority Date/Time Associated Diagnosis Comments PLACE NEEDLE IN VEIN Routine 12/30/2016 Results for this 11:27 PM CDT procedure are in the results section. after 11/01/2016 Results * POC-Glucose meter (10/29/2017 12:36 PM) Only the most recent of 119 results within the time period is included. Component Value Ref Range POC-Glucose Meter 115 (H)Comment: TESTED AT [facility] [address] [facility] 70 - 110 [facility] [address] Specimen Performing Laboratory Blood [facility] [address] [address] * CBC with platelet count + automated diff (10/29/2017 5:02 AM) Only the most recent of 22 results within the time period is included. Component Value Ref Range WBC 5.5 4.0 - 10.0 K/ L RBC 4.41 4.00 - 5.00 M/ L Hemoglobin 12.6 12.0 - 15.0 GM/DL Hematocrit 39.1 36.0 - 45.0 % MCV 88.5 82.0 - 99.0 fL MCH 28.5 27.0 - 33.0 pg MCHC 32.2 32.0 - 36.0 GM/DL RDW 15.4 (H) 10.3 - 14.2 % Platelets 249 150 - 430 K/CU MM MPV 7.7 6.5 - 10.5 fL nRBC 0 0 - 0 /100 WBC % Neutros 78 % % Lymphs 14 % % Monos 5 % % Eos 3 % % Baso 0 % # Neutros 4.30 1.80 - 8.00 K/ L # Lymphs 0.80 (L) 1.48 - 4.50 K/ L # Monos 0.30 0.00 - 1.30 K/ L # Eos 0.10 0.00 - 0.50 K/ L # Baso 0.00 0.00 - 0.20 K/ L Specimen Performing Laboratory Blood [facility] [address] [place] [address] * CBC with platelet count + automated diff (10/29/2017 5:02 AM) Only the most recent of 22 results within the time period is included. Specimen Performing Laboratory Blood Narrative The following orders were created for panel order CBC with platelet count + automated diff. Procedure Abnormality Status --------- - ------ CBC with platelet count ...[[id number]]AbnormalFinal result Please view results for these tests on the individual orders. * Basic Metabolic Panel (10/29/2017 5:02 AM) Only the most recent of 6 results within the time period is included. Component Value Ref Range Sodium 140 135 - 148 meq/L Potassium 4.7 3.6 - 5.5 meq/L Chloride 99 98 - 106 meq/L CO2 21 20 - 29 meq/L BUN 23 10 - 26 mg/dL Creatinine 5.80 (H) 0.50 - 1.20 mg/dL Glucose 259 (H) 70 - 110 mg/dL Calcium 9.4 8.5 - 10.5 mg/dL EGFR 11Comment: ESTIMATED GFR IS NOT ACCURATE mL/min/1.73 sq m CREATININE CLEARANCE IN PREDICTING GLOMERULAR FILTRATION RATE. ESTIMATED GFR IS NOT APPLICABLE FOR DIALYSIS PATIENTS. Specimen Performing Laboratory Blood [facility] [address] [place] [address] * Hepatitis B core antibody, total (10/28/2017 3:53 PM) Only the most recent of 3 results within the time period is included. Component Value Ref Range Hep B Core Total Ab Nonreactive Nonreactive Specimen Performing Laboratory Blood - Arm, [address] [address] * Hepatitis B surface antibody (10/28/2017 3:53 PM) Only the most recent of 6 results within the time period is included. Component Value Ref Range Hep B S Ab 6367.4 (H) <8.0 mIU/mL Specimen Performing Laboratory Blood - Arm, [place] [address] * Hepatitis B surface antigen (10/28/2017 3:53 PM) Only the most recent of 6 results within the time period is included. Component Value Ref Range hepatitis B Surface Ag Nonreactive Nonreactive Specimen Performing Laboratory Blood - Arm, [facility] [address] [place], [place] [address] * Hemoglobin A1c (10/28/2017 5:25 AM) Component Value Ref Range Hemoglobin A1C 9.8 (H) 4.3 - 6.1 % Specimen Performing Laboratory [facility] [address] [place] [address] * Lipid panel (10/28/2017 5:25 AM) Component Value Ref Range Triglycerides 88Comment: Specimen slightly hemolyzed mg/dL Cholesterol 148Comment: Specimen slightly hemolyzed mg/dL HDL 38 mg/dL LDL Calculated 92 mg/dL Specimen Performing Laboratory [facility] [address] [place], [place] [address] Narrative Triglyceride Reference Range: Low Risk <150 [id number] High Risk 200-499 Very High Risk>=500 Cholesterol Reference Range: Low Risk <200 [id number] High Risk>240 HDL Cholesterol Reference Range: Low Risk >=60 High Risk <40 LDL Cholesterol Reference Range: Optimal<100 Near Dfnddjq586-550 Atdkfhqjjr466-138 Tnly910-978 Very High >=190 * hCG, quantitative, (10/27/2017 1:53 PM) Component Value Ref Range hCG Quant <2 0 - 10 mIU/mL Specimen Performing Laboratory [facility] [address] [place], [place] [address] Narrative Non- Females: <10 mIU/mL Females: Gestation AgeReference Range(mIU/mL) 0.2-1 Week5-50 1-2 [id number] 2-3 Weeks 100-5,000 3-4 Weeks 500-10,000 4-5 Weeks 1,000-50,000 5-6 Weeks10,000-100,000 6-8 Weeks15,000-200,000 2-3 Months 10,000-100,000 * Lipase (10/27/2017 1:36 PM) Only the most recent of 5 results within the time period is included. Component Value Ref Range Lipase 20 6 - 51 U/L Specimen Performing Laboratory Blood [facility] [address] [place], [place] [address] * Ketones, blood (10/27/2017 1:36 PM) Component Value Ref Range Ketones, Blood 0.4 (H) <0.4 mmol/L Specimen Performing Laboratory Blood [facility] [address] [place], [place] [address] * Liver Panel (10/27/2017 1:36 PM) Only the most recent of 3 results within the time period is included. Component Value Ref Range Protein, Total 8.4 6.0 - 8.5 gm/dL Albumin 4.5 3.5 - 5.0 g/dL Total Bilirubin 0.4 0.1 - 1.2 mg/dL Bilirubin, Direct 0.2 0.0 - 0.4 mg/dL Alkaline Phosphatase 96 30 - 115 U/L AST 8 5 - 40 U/L ALT 9 5 - 50 U/L Specimen Performing Laboratory [facility] [address] [place], [place] [address] * RHYTHM STRIP - SCAN (05/19/2017 1:12 PM) Only the most recent of 2 results within the time period is included. * EKG-SCANNED (05/19/2017 1:12 PM) Only the most recent of 3 results within the time period is included. * Screen, urine (05/14/2017 6:27 PM) Only the most recent of 2 results within the time period is included. Component Value Ref Range Preg Test, Ur Negative Specimen Performing Laboratory Urine [facility] [address] [place], [place] [address] * Magnesium (05/14/2017 4:51 AM) Only the most recent of 3 results within the time period is included. Component Value Ref Range Magnesium 1.8 1.5 - 3.0 mg/dL Specimen Performing Laboratory Blood [facility] [address] [place] [address] * Comprehensive metabolic panel (05/14/2017 4:51 AM) Only the most recent of 18 results within the time period is included. Component Value Ref Range Protein, Total 6.9 6.0 - 8.5 gm/dL Albumin 3.3 (L) 3.5 - 5.0 g/dL Alkaline Phosphatase 130 (H) 30 - 115 U/L Total Bilirubin 0.3 0.1 - 1.2 mg/dL Sodium 140 135 - 148 meq/L Potassium 3.8 3.6 - 5.5 meq/L Chloride 102 98 - 106 meq/L CO2 25 20 - 29 meq/L BUN 25 10 - 26 mg/dL Creatinine 4.90 (H) 0.50 - 1.20 mg/dL Glucose 82 70 - 110 mg/dL Calcium 7.8 (L) 8.5 - 10.5 mg/dL AST 18 5 - 40 U/L ALT 15 5 - 50 U/L EGFR 13Comment: ESTIMATED GFR IS NOT ACCURATE mL/min/1.73 sq m CREATININE CLEARANCE IN PREDICTING GLOMERULAR FILTRATION RATE. ESTIMATED GFR IS NOT APPLICABLE FOR DIALYSIS PATIENTS. Specimen Performing Laboratory Blood [facility] [address] [place], [place] [address] * Rapid drug screen, urine (05/11/2017 12:08 AM) Component Value Ref Range Barbiturate Screen Negative Negative Benzodiazepine Screen Negative Negative Cocaine (Metab.) Screen Negative Negative Opiate Screen Negative Negative Cannabinoid Screen Negative Negative Amph/Methamph Screen Negative Negative Phencyclidine Screen Negative Negative Specimen Performing Laboratory Urine [facility] [address] [place] [address] Narrative DRUGCUTOFF CONC. Cocaine 300 ng/mL Httwlajdtcj25 ng/mL Kxgqdjnhgjmbka211 ng/mL Barbiturate 200 ng/mL Ivrcmnqetnksf08 ng/mL Tycsdm090 ng/mL Methadone 300 ng/mL Amphetamine/ 1000 ng/mL Methamphetamine This assay provides an unconfirmed qualitative test result for the clinical management of patients in emergency situations. Chain of custody not maintained. Some jwor-evq-rvueeov medications, as well as adulterants, may cause inaccurate results. Clinical correlation should be applied. A more comprehensive drug screen or confirmation of a detected drug may be performed upon request. * Urinalysis w/Microscopic (05/11/2017 12:07 AM) Only the most recent of 3 results within the time period is included. Component Value Ref Range Color, UA Yellow Clarity, UA Clear Specific [place], UA 1.020 1.001 - 1.035 pH, UA 8.0 5.0 - 8.0 Protein, UA >=300 mg/dL (A) Negative Glucose, UA 100 mg/dL (A) Negative Ketones, UA Negative Negative Bilirubin, UA Negative Negative Blood, UA Moderate (A) Negative Nitrite, UA Negative Negative Leukocytes, UA Negative Negative Urobilinogen, UA 0.2 0.2 - 1.0 mg/dL Bacteria, UA Occasional RBC, UA 10-20 /HPF WBC, UA <5 /HPF SQUAMOUS EPITHELIAL <5 /HPF Specimen Source Specimen Performing Laboratory Urine [facility] [address] [place] [address] * Blood culture (02/24/2017 6:37 PM) Component Value Ref Range Result No growth in 5 days Specimen Performing Laboratory Blood - Arm, Left [facility] [address] [place] [address] * CARDIAC CATH REPORT - SCAN (01/22/2017 10:40 AM) * XR chest 1 view portable / bedside (01/21/2017 11:48 AM) Specimen Performing Laboratory GE RIS Narrative FINAL REPORT Comparison: 09/01/2016 TECHNIQUE: Single view of the chest FINDINGS: Trace bilateral pleural effusions are suspected. Otherwise lungs are grossly clear. Cardiac silhouette is magnified by technique. Left internal jugular dialysis catheter identified with tip in the SVC. Right internal jugular central line seen with tip in the cavoatrial junction. A previous right-sided chest port has been removed Signed: Roly Ch MD Report Verified Date/Time:01/21/2017 11:56:16 Reading Location: [facility] Radiology Reading Room Procedure Note Interface, External Ris In - 01/21/2017 11:58 AM CDT FINAL REPORT Comparison: 09/01/2016 TECHNIQUE: Single view of the chest FINDINGS: Trace bilateral pleural effusions are suspected. Otherwise lungs are grossly clear. Cardiac silhouette is magnified by technique. Left internal jugular dialysis catheter identified with tip in the SVC. Right internal jugular central line seen with tip in the cavoatrial junction. A previous right-sided chest port has been removed Signed: Roly Ch MD Report Verified Date/Time: 01/21/2017 11:56:16 Reading Location: [facility] Radiology Reading Room * TRANSFUSION SERVICE REPORT - SCAN (01/17/2017 5:30 PM) Only the most recent of 2 results within the time period is included. * Phosphorus (01/17/2017 5:39 AM) Only the most recent of 8 results within the time period is included. Component Value Ref Range Phosphorus 2.8 2.5 - 4.5 mg/dL Specimen Performing Laboratory Blood [facility] [address] [place] [address] * Prepare Leuko-Red RBC (01/16/2017 11:55 PM) Component Value Ref Range CROSSMATCH COMPATIBLE Unit ABO O Neg UNIT NUMBER [id number] Status TRANSFUSED Blood Bank Product RED BLOOD CELLS PRODUCT CODE [id number] CROSSMATCH COMPATIBLE Unit ABO O Neg UNIT NUMBER [id number] Status TRANSFUSED Blood Bank Product RED BLOOD CELLS PRODUCT CODE [id number] Specimen Performing Laboratory Other [facility] [place] * Antibody identification (01/16/2017 9:47 AM) Component Value Ref Range ANTIBODY ID (JIM) [id number] DComment: Testing performed by: [facility], [address] [place] [address] [place] [address] Antibody Consult SIGNED OUTComment: Anti-D due to RhIGElectronic Signature: Neville Olivares M.D. Specimen Performing Laboratory [facility] [place] * Type and screen (01/15/2017 12:04 PM) Component Value Ref Range Ab Scrn POSITIVE ABO Grouping O Rh Factor NEG Specimen [place] [address] * Creatinine, random urine (01/15/2017 11:29 AM) Only the most recent of 2 results within the time period is included. Component Value Ref Range Creatinine, Ur 58.2 mg/dL Specimen Performing Laboratory Urine [facility] [address] [place] [address] Narrative Reference Range: No Normals * Protein, random urine (01/15/2017 11:26 AM) Only the most recent of 2 results within the time period is included. Component Value Ref Range Protein, Urine 1376 (H) 0 - 14 mg/dL Specimen Performing Laboratory Urine - Urine, Voided [facility] [address] [place] [address] * IR central venous catheter placement (jugular or femoral) (01/15/2017 10:10 AM ) Specimen Performing Laboratory GE RIS Narrative FINAL REPORT History: Need for venous access. Procedure: Following informed written consent, the patient's right neckregion was prepped and draped with maximal sterile barrier technique. 2% lidocaine was given locally for anesthesia. No conscious sedation was administered. Using ultrasound guidance and micropuncture needle, access was gained to the right internal jugular vein. A J-wire was advanced to the micropuncture sheath into the superior vena cava. The tract was dilated and a 16 cm triple lumen catheter was placed over the wire into position under fluoroscopic control. The catheter was secured to the skin using 2-0 silk suture. There were no immediate complications. Findings: Spot film of the chest following catheter placement demonstrates the right internal jugular triple lumen catheter lie in expected position with its tip in the proximal right atrium. No pneumothorax. Small amount of thrombus was identified in the cephalad portion of the right internal jugular vein. Remainder of the right internal jugular vein was patent and allowed for placement of the right internal jugular central line. An image was saved to PACS. Total fluoroscopy time: 0.2 minutes Estimated dose reported as ( Ka, r): 12 mGy Impression: 1. Successful uncomplicated placement of a right internal jugular triple lumen catheter. Signed: Roly Ch MD Report Verified Date/Time:01/15/2017 11:44:50 Reading Location: [facility] Radiology Reading Room Procedure Note Interface, External Ris In - 01/15/2017 11:47 AM CDT FINAL REPORT History: Need for venous access. Procedure: Following informed written consent, the patient's right neckregion was prepped and draped with maximal sterile barrier technique. 2% lidocaine was given locally for anesthesia. No conscious sedation was administered. Using ultrasound guidance and micropuncture needle, access was gained to the right internal jugular vein. A J-wire was advanced to the micropuncture sheath into the superior vena cava. The tract was dilated and a 16 cm triple lumen catheter was placed over the wire into position under fluoroscopic control. The catheter was secured to the skin using 2-0 silk suture. There were no immediate complications. Findings: Spot film of the chest following catheter placement demonstrates the right internal jugular triple lumen catheter lie in expected position with its tip in the proximal right atrium. No pneumothorax. Small amount of thrombus was identified in the cephalad portion of the right internal jugular vein. Remainder of the right internal jugular vein was patent and allowed for placement of the right internal jugular central line. An image was saved to PACS. Total fluoroscopy time: 0.2 minutes Estimated dose reported as ( Ka, r): 12 mGy Impression: 1. Successful uncomplicated placement of a right internal jugular triple lumen catheter. 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 Technique: Following informed written consent, the patient's left neck region and anterior chest wall were prepped and draped in the usual sterile manner. All elements maximal sterile barrier technique was utilized for this procedure, including utilization of sterile scrub solution for skin prep, a large sterile sheet to cover the areas of the patient that were not prepped, and hand hygiene, mask, head covering, and sterile gown for performing radiologist and scrub technologist. 2% lidocaine was given locally for anesthesia. Additionally, the patient was given Versed 3 mg and fentanyl 150 mcg for conscious sedation and pain control for physician intraservice time of 25 min. Vital signs were monitored and remained stable. Access was gained to the left internal jugular vein using ultrasound guidance and a micropuncture needle. A subcutaneous tunnel was created in the anterior chest wall . A 28 cm Duraflow catheter was tunneled and following serial dilatation of the tract, placed through a peel-away sheath and into position within the atriocaval junction under fluoroscopic control. The catheter was secured to the skin using 2-0 proline suture. The small incision site was closed using 2-0 chromic. There were no immediate complications. Findings: The LEFT internal jugular vein was patent by ultrasound. An image was saved to PACS. Spot radiograph following catheter insertion demonstrates the left internal jugular tunneled dialysis catheter to lie in expected position with its tip in the atriocaval junction . No pneumothorax is identified. Total fluoroscopy time: 15 seconds Estimated dose reported as ( Ka, r): 2 mGy Impression: 1. Successful uncomplicated placement of a tunneled left internal jugular dialysis catheter. 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 Technique: Following informed written consent, the patient's left neck region and anterior chest wall were prepped and draped in the usual sterile manner. All elements maximal sterile barrier technique was utilized for this procedure, including utilization of sterile scrub solution for skin prep, a large sterile sheet to cover the areas of the patient that were not prepped, and hand hygiene, mask, head covering, and sterile gown for performing radiologist and scrub technologist. 2% lidocaine was given locally for anesthesia. Additionally, the patient was given Versed 3 mg and fentanyl 150 mcg for conscious sedation and pain control for physician intraservice time of 25 min. Vital signs were monitored and remained stable. Access was gained to the left internal jugular vein using ultrasound guidance and a micropuncture needle. A subcutaneous tunnel was created in the anterior chest wall . A 28 cm Duraflow catheter was tunneled and following serial dilatation of the tract, placed through a peel-away sheath and into position within the atriocaval junction under fluoroscopic control. The catheter was secured to the skin using 2-0 proline suture. The small incision site was closed using 2-0 chromic. There were no immediate complications. Findings: The LEFT internal jugular vein was patent by ultrasound. An image was saved to PACS. Spot radiograph following catheter insertion demonstrates the left internal jugular tunneled dialysis catheter to lie in expected position with its tip in the atriocaval junction . No pneumothorax is identified. Total fluoroscopy time: 15 seconds Estimated dose reported as ( Ka, r): 2 mGy Impression: 1. Successful uncomplicated placement of a tunneled left internal jugular dialysis catheter. Signed: Roly Ch MD Report Verified Date/Time: 01/14/2017 15:34:03 Reading Location: [facility] Radiology Reading Room * US renal biopsy (01/04/2017 11:03 AM) Specimen Performing Laboratory GE RIS Narrative FINAL REPORT Procedure: Ultrasound-guided renal biopsy, 01/04/2017 HISTORY: Renal failure Anesthesia: 1% lidocaine Sedation: 3 mg Versed, 50 mcg fentanyl, moderate conscious sedation monitored by the attending physician and registered nurse. Sedation time: 15 minutes TECHNIQUE: After obtaining written informed consent, this procedure was performed without immediate postprocedural complication. Ultrasound was used to examine the abdomen. 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 The site over the right margin of the horseshoe kidney was prepped and anesthetized. Two passes were made with 18-gauge needles into the right peripheral margin of the horseshoe kidney. Samples were provided for analysis of pathology. Post biopsy scanning disclose no convincing evidence of significant abnormality. CONCLUSION: Ultrasound-guided biopsy of kidney. Signed: Amari Moyer MD Report Verified Date/Time:01/04/2017 14:00:02 Reading Location: [facility] Radiology Reading Room Procedure Note Interface, External Ris In - 01/04/2017 2:02 PM CDT FINAL REPORT Procedure: Ultrasound-guided renal biopsy, 01/04/2017 HISTORY: Renal failure Anesthesia: 1% lidocaine Sedation: 3 mg Versed, 50 mcg fentanyl, moderate conscious sedation monitored by the attending physician and registered nurse. Sedation time: 15 minutes TECHNIQUE: After obtaining written informed consent, this procedure was performed without immediate postprocedural complication. Ultrasound was used to examine the abdomen. 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 The site over the right margin of the horseshoe kidney was prepped and anesthetized. Two passes were made with 18-gauge needles into the right peripheral margin of the horseshoe kidney. Samples were provided for analysis of pathology. Post biopsy scanning disclose no convincing evidence of significant abnormality. CONCLUSION: Ultrasound-guided biopsy of kidney. Signed: Amari Moyer MD Report Verified Date/Time: 01/04/2017 14:00:02 Reading Location: [facility] Radiology Reading Room * Tissue Exam (01/04/2017 10:30 AM) Component Value Ref Range Case Report Surgical Pathology Report Case: [id number] Authorizing Provider: Trevor Castro MD Collected: 01/04/2017 1030 Ordering Location: [facility] Med Surg 5th Floor Received: 12/17 1204 Pathologist: Lissa Rodríguez MD Specimen: Renal Pelvis DIAGNOSIS KIDNEY, NEEDLE BIOPSIES - FOCAL SEGMENTAL AND DIFFUSE GLOBAL GLOMERULOSCLEROSIS - NODULAR DIABETIC GLOMERULOSCLEROSIS - INTERSTITIAL FIBROSIS AND TUBULAR ATROPHY, MARKED (~80%) - SEVERE ARTERIAL AND ARTERIOLOSCLEROSIS COMMENT The kidney biopsy shows features of advanced diabetic glomerulosclerosis with focal and segmental scarring. The overall global glomerulosclerosis is 62% (23/37) of all examined glomeruli, in a background of marked (~80%) interstitial fibrosis and tubular atrophy. The results were communicated to Dr. Castro on 01/14/2017. 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 SPECIMEN SOURCE Kidney biopsy GROSS DESCRIPTION The specimen is received in saline and consists of two white-menendez biopsy cores measuring 1.0 cm in length and 0.1 cm in diameter. The tissue cores were examined under the microscopy for glomeruli. One tissue core is bisected and submitted into PBS and glutaraldehyde solution, and the other tissue core is submitted into A1 for histologic evaluation. MG/ew MICROSCOPIC DESCRIPTION LIGHT MICROSCOPY: Sections show single core of cortical tissue. Glomeruli: Approximately 25 glomeruli are examined of which 16 glomeruli are globally sclerotic/obsolescent or show near complete obsolescence. Two - three glomeruli are enlarged and show segmental sclerosis with visceral podocyte hypertrophy. There is focal glomerular hypertrophy with nodular mesangial expansion by PAS- and silver-positive matrix and mild segmental hypercellularity. Mesangial foam cells are present in the areas of sclerosis. No endocapillary hypercellularity, crescents or thrombi are seen. Tubules and interstitium: There is severe interstitial fibrosis and tubular atrophy and mild chronic interstitial inflammatory cell infiltration by lymphocytes involving about 80% of renal cortex. Non-atrophic proximal tubules are focally ectatic with loss of brush borders. Vessels: Interlobular arteries show sclerosis and thickening. There is diffuse arteriolar hyalinosis. Special stains: Maribel trichrome, PAS and Muñoz silver stains were necessary for evaluation of this biopsy and showed expected staining patterns of internal control tissue matrix structures. Direct Immunofluorescence: Histology: H&E-stained sections show 3 non-obsolescent glomeruli and 2 obsolescent glomeruli. Immunofluorescence findings: Albumin: diffuse, glomerular and tubular basement membrane, weak. IgA: negative in glomeruli, tubular casts are positive IgG: no significant glomerular, tubulointerstitial or vascular staining. IgM: focal, segmental, amorphous/entrapment, 1+. C3: negative in glomeruli, focal arteriolar, Sepulveda's capsule, interstitial, 3+. C1q: no significant glomerular, tubulointerstitial or vascular staining. Fibrinogen: diffuse, glomerular and tubulointerstitial, weak. [place]: negative glomeruli; tubular casts are positive Lambda: negative glomeruli; tubular casts are positive All polyclonal antibodies used for immunofluorescence staining have been previously tested and shown to have appropriate reactivities with positive control specimens. Diagnostic Electron Microscopy: Thick section histology: Toluidine blue-stained sections of four blocks reveal two non-obsolescent glomeruli and five obsolescent glomeruli, four of which are examined ultrastructurally. Ultrastructure: Examination of the glomerular ultrastructure reveals that the glomerular basement membrane is diffusely thickened generally measuring up to approximately 1080 nm (normal adult female ghzgogq=373 - 394 nm; Deanna Manzano, Arch Pathol Lab Med [phone]). The mesangial matrix is markedly expanded and nodular in places. Focal mesangial hypercellularity is present. Subendothelial, subepithelial, and mesangial/paramesangial electron-dense, immune complex-type deposits are not present. Focal hyaline deposition is noted. Podocyte foot processes are extensively effaced. Tubular basement membranes are thickened. Specimen Performing Laboratory Tissue - Renal Pelvis [address] [address] * Prothrombin time/INR (01/04/2017 5:03 AM) Only the most recent of 2 results within the time period is included. Component Value Ref Range Protime 9.5 9.3 - 12.0 seconds INR 0.9 <=5.9 Specimen Performing Laboratory Blood - Arm, Left [facility] [address] [place] [address] Narrative RECOMMENDED COUMADIN/WARFARIN INR THERAPY RANGES STANDARD DOSE: 2.0 - 3.0 Includes: PROPHYLAXIS for venous thrombosis, systemic embolization; TREATMENT for venous thrombosis and/or pulmonary embolus. HIGH RISK: Target INR is 2.5-3.5 for patients with mechanical heart valves. 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 No monoclonal bands detected. Pathologist: Bailee Toth MD (electronic signature) Protein, Total 4.3 (L) 6.0 - 8.3 gm/dL Specimen Performing Laboratory Blood [address] [address] * Complement Component C3 (01/02/2017 11:41 AM) Component Value Ref Range C3 Complement 110 82 - 193 mg/dL Specimen Performing Laboratory Blood [address] [address] Narrative Effective 06/05/2014: Reference Range Change New: 82-193 Previous: 79-152 * Complement Component C4 (01/02/2017 11:41 AM) Component Value Ref Range C4 Complement 42 15 - 57 mg/dL Specimen Performing Laboratory Blood [address] [address] Narrative Effective 06/05/2014: Reference Range Change New: 15-57 Previous: 16-38 * Anti-Nuclear Antibody (PHILOMENA) (01/02/2017 11:41 AM) Component Value Ref Range PHILOMENA Negative Negative Specimen Performing Laboratory Blood [address] [address] * Urinalysis w/Microscopic + Reflex to Culture (12/31/2016 7:05 PM) Component Value Ref Range Color, UA Yellow Clarity, UA Clear Specific [place], UA 1.020 1.001 - 1.035 pH, UA 6.5 5.0 - 8.0 Protein, UA >=300 mg/dL (A) Negative Glucose, UA 100 mg/dL (A) Negative Ketones, UA Negative Negative Bilirubin, UA Negative Negative Blood, UA Small (A) Negative Nitrite, UA Negative Negative Leukocytes, UA Negative Negative Urobilinogen, UA 0.2 0.2 - 1.0 mg/dL Bacteria, UA Occasional RBC, UA 5-10 /HPF WBC, UA <5 /HPF SQUAMOUS EPITHELIAL <5 /HPF Specimen Source Specimen Performing Laboratory Urine [facility] [address] [place] [address] * PIV Insertion (12/30/2016 11:27 PM) Liborio Garcias MD 12/30/2016 11:27 PM PIV Insertion Date/Time: 12/30/2016 9:54 PM Performed by: LIBORIO MELENDEZ Authorized by: LIBORIO MELENDEZ Preparation: Patient was prepped and draped in the usual sterile fashion. Indication: IV medication, pain and difficult access. Location: left external jugular. Anesthesia: see MAR for details Anesthesia: Anesthesia: see MAR for details Anesthetic total: 0 mL Needle gauge: 14 Number of attempts: 2 Post-procedure: dressing applied and taped Post-procedure CMS: normal Patient tolerance: Patient tolerated the procedure well with no immediate complications * Manual Differential (12/30/2016 9:29 PM) Component Value Ref Range % Neutros (manual) 76 % % Lymphs (manual) 22 % % Monos (manual) 1 % % Eos (manual) 1 % # Neutros (manual) 10.03 (H) 1.80 - 8.00 K/ L # Lymphs (manual) 2.90 1.48 - 4.50 K/ L # Monos (manual) 0.13 0.00 - 1.30 K/ L # Eos (manual) 0.13 0.00 - 0.50 K/ L Total Counted 100 WBC Morphology Normal Platelet Morphology Normal RBC Morphology Normal Specimen Performing Laboratory Blood - Arm, Right [facility] [address] [facility] [place] [address] after 11/01/2016
--- OUTSIDE RECORDS SUMMARY | 2017-11-02 16:33 | XMS REPORT ---
Author Author [facility] Address Unknown Phone Unavailable Care Team Providers Care Floor Inspector Name Role Phone FABY JHA Unavailable Unavailable EMMA BERNABE Unavailable Unavailable TRELL, MARCIA Unavailable Unavailable JESSI WESLEY Unavailable Unavailable PAPITOMARLYN Unavailable Unavailable MAXGAY JAOCBO Unavailable Unavailable FEI COLLINS Unavailable Unavailable LINDA MENSAH Unavailable Unavailable ROBIN, GREGG Unavailable Unavailable MAX, TUE Unavailable Unavailable MAX, ISHMAEL Unavailable Unavailable OEI, ABHISHEK Unavailable Unavailable POOLE, BHAGWAT Unavailable Unavailable DORA, KATE Unavailable Unavailable GUTHRIE, SOUHEIL Unavailable Unavailable RAVHARJIT, JOY Unavailable Unavailable AL, CWANZA Unavailable Unavailable Carlos Hutchinson Unavailable Unavailable OTHEE, ALTA Unavailable Unavailable MAGI, WILL Unavailable Unavailable JYOTI, ADRI Unavailable Unavailable Problems This patient has no known problems. Allergies, Adverse Reactions, Alerts This patient has no known allergies or adverse reactions. Medications This patient has no known medications. Encounters Start Date/Time End Date/Time Encounter Type Admission Type Attending [facility] Care Department Encounter ID 2017-10-21 21:27:00 2017-10-23 14:12:00 Inpatient E MIKAELA CAITHA [facility] TELE [id number] 2017-09-10 08:00:00 2017-09-13 11:02:00 Inpatient E FABY JHA [facility] TELE [id number] 2017-08-06 18:55:00 2017-08-06 21:30:00 Emergency E MARLYN COBOS [facility] [id number] 2017-08-04 16:20:00 2017-08-04 18:33:00 Emergency E GAY MAX [facility] [id number] 2017-07-30 04:43:00 2017-07-30 06:23:00 Emergency E LINDA MENSAH [facility] [id number] 2017-07-28 18:51:00 2017-07-28 23:21:00 Emergency E GREGG KELLY [facility] [id number] 2017-07-12 10:01:00 2017-07-12 13:01:00 Emergency E ISHMAEL MAX [facility] [id number] 2017-07-08 19:18:00 2017-07-08 23:39:00 Emergency E ABHISHEK HAHN [facility] [id number] 2016-11-28 13:38:00 2016-11-28 13:38:00 Outpatient Carlos Hutchinson [id number] Results Test Description Test Time Test Comments Text Results Atomic Results Result Comments HEPATITIS B SURFACE ANTIGEN 2017-11-02 15:53:00 HBSAG (test code=HBSAG) NON-REACTIVE NON-REACTIVE HEPATITIS B SURFACE ANTIBODY *WW*2017-11-02 15:41:00* Test Item Value Reference Range Comments HBSAB (test code=HBSAB) REACTIVE REACTIVE GLUCOMETER GLUCOSE- LAB USE [id number] 11:17:00* Test Item Value Reference Range Comments GLUCOMETER (test code=GMG) 120 mg/dL 70-100 DAILY MAINTENANCEMeter ID: [id number]: [id number] [facility] BASIC METABOLIC PANEL 2017-11-02 06:34:00* Test Item Value Reference Range Comments GLUCOSE (test code=06D) 152 mg/dL 75-100 SODIUM (test code=01A) 138 mmol/L 136-145 POTASSIUM (test code=01B) 5.9 mmol/L 3.6-5.1 CHLORIDE (test code=04A) 103 mmol/L 98-107 CO2 (test code=02A) 22 mmol/L 22-32 ANION GAP (test code=ANG) 18.9 mmol/L BUN (test code=05D) 105 mg/dL 7-18 CREATININE (test code=03E) 13.6 mg/dL 0.4-1.1 BUN/CREA (test code=BCR) 8 12-20 CALCIUM (test code=09D) 7.4 mg/dL 8.3-9.5 GLUCOMETER GLUCOSE- LAB USE [id number] 05:41:00* Test Item Value Reference Range Comments GLUCOMETER (test code=GMG) 150 mg/dL 70-100 Meter ID: [id number]: [address] XR ABDOMEN 2 VIEWS W/PA CHEST 2017-11-02 00:06:35CHEST AND ABDOMEN RADIOGRAPHSLOCATION: R16.INDICATION: [id number]: Abdominal pain.TECHNIQUE: PA radiograph of the chest; upright and supine AP radiographs of theabdomen.COMPARISON: None.FINDINGS:The lungs are clear. There is no pneumothorax. The cardiomediastinal silhouetteis normal.Normal caliber loops of small bowel and colon are visualized. There is noradiographic evidence of pneumoperitoneum. Surgical clips project over theright upper quadrant.IMPRESSION :Nonspecific bowel gas pattern. No acute abnormality visualized in the abdomenor chest.COMPREHENSIVE METABOLIC FULTON 2017-11-01 23:57:00* Test Item Value Reference Range Comments GLUCOSE (test code=06D) 102 mg/dL 75-100 SODIUM (test code=01A) 137 mmol/L 136-145 POTASSIUM (test code=01B) 6.2 mmol/L 3.6-5.1 CHLORIDE (test code=04A) 102 mmol/L 98-107 CO2 (test code=02A) 19 mmol/L 22-32 ANION GAP (test code=ANG) 21.9 mmol/L BUN (test code=05D) 105 mg/dL 7-18 CREATININE (test code=03E) 13.1 mg/dL 0.4-1.1 BUN/CREA (test code=BCR) 8 12-20 CALCIUM (test code=09D) 7.8 mg/dL 8.3-9.5 BILI TOTAL (test code=11A) 0.3 mg/dL 0.2-1.0 PROTEIN (test code=07D) 8.2 g/dL 6.4-8.2 ALBUMIN (test code=08D) 3.7 g/dL 3.5-4.8 GLOBULIN (test code=GLB) 4.5 g/dL 1.5-3.8 ALB/GLOB (test code=AGRR) 0.8 1.0-2.6 ALK PHOS (test code=35A) 98 IU/L 42-121 AST (test code=30A) 14 IU/L <=42 ALT (test code=31A) 10 IU/L <=78 AMYLASE AND LIPASE 2017-11-01 23:55:00* Test Item Value Reference Range Comments AMYLASE (test code=10A) 101 U/L 28-100 LIPASE (test code=60A) 124 IU/L 73-393 MAGNESIUM WW2017-11-01 23:55:00* Test Item Value Reference Range Comments MAGNESIUM (test code=48A) 2.4 mg/dL 1.8-2.4 PRO TIME AND PTT *WW*2017-11-01 23:46:00* Test Item Value Reference Range Comments PT (test code=TT) 10.3 s 9.8-13.6 INR (test code=INR) 0.9 INRH (test code=INRH) SUGGESTED THERAPEUTIC RANGE FOR INR: 2.5 - 3.5 For Patients with Prosthetic Valves or Patients with recurrent Thromboembolic Events 2.0 - 3.0 For Most Other Applications PTT (test code=PTT) 31.1 s 20.2-38.0 PTTH (test code=PTTH) To monitor the effectiveness of heparin, we offer the Anti-Xa (Heparin Assay). It can be used for either unfractionated or LMW Heparin. Order Code is ANTI-XA SERUM MONOCLONAL *WW*2017-11-01 23:34:00* Test Item Value Reference Range Comments PREG SRM (test code=PGS) NEGATIVE NEGATIVE CBC (INCLUDES AUTOMATED DIFFERENTIAL)*[id number] 23:26:00* Test Item Value Reference Range Comments WBC (test code=WBC) 8.7 10\S\3/uL 4.5-11.0 RBC (test code=RBC) 4.07 10\S\6/uL 4.30-5.70 HGB (test code=HBG) 11.4 g/dL 12.0-15.5 HCT (test code=HCT) 36.2 % 35.0-44.0 MCV (test code=MCV) 88.9 fL 81.0-99.0 MCH (test code=MCH) 28.0 pg 27.0-31.0 MCHC (test code=MCHC) 31.5 g/dL 32.0-36.0 RDW (test code=RDW) 13.3 % 11.5-14.5 PLT (test code=PLT) 306 10\S\3/uL 130-400 MPV (test code=MPV) 9.7 fL 9.4-12.4 NEUTROP # (test code=NE#) 7.3 10\S\3/uL 1.6-8.0 LYMPH # (test code=LY#) 0.8 10\S\3/uL 1.1-3.5 MONOCYTE # (test code=MO#) 0.4 10\S\3/uL 0.0-1.1 EOSINOPH # (test code=EO#) 0.1 10\S\3/uL 0.0-0.7 BASOPHIL # (test code=BA#) 0.0 10\S\3/uL 0.0-0.3 IG # (test code=IG#) 0.05 10\S\3/uL 0.00-0.06 NRBC # (test code=NRBC#) 0.00 10\S\3/uL 0.00-0.01 NEUTROPH % (test code=NE%) 84.7 % 35.0-73.0 LYMPH % (test code=LY%) 9.2 % 20.0-55.0 MONO % (test code=MO%) 4.4 % 2.5-10.0 EOSINOPH % (test code=EO%) 0.9 % 0.0-5.0 BASOPHIL % (test code=BA%) 0.2 % 0.0-2.0 IG % (test code=IG%) 0.6 % 0.0-0.8 NRBC% (test code=NRBC%) 0.0 % 0.0-0.2 MANDIFF (test code=WMDIFF) NO NO RBC MORPH (test code=WRBCMOR) NORMAL HEPATITIS B SURFACE [id number] 13:53:00* Test Item Value Reference Range Comments HEPATITIS B SURFACE ANTIBODY (BEAKER) (test jukr=226) 6367.4 mIU/mL <8.0 HEPATITIS B CORE ANTIBODY, [id number] 13:39:00* Test Item Value Reference Range Comments HEPATITIS B CORE TOTAL ANTIBODY (BEAKER) (test savr=372) Nonreactive Nonreactive POCT-GLUCOSE [id number] 13:09:00* Test Item Value Reference Range Comments POC-GLUCOSE METER (BEAKER) (test wtvl=8971) 115 mg/dL 70-110 TESTED AT [facility] [address] [facility] [address] POCT-GLUCOSE [id number] 06:08:00* Test Item Value Reference Range Comments POC-GLUCOSE METER (BEAKER) (test zmpo=0833) 242 mg/dL 70-110 TESTED AT [facility] [address] [facility] [address] BASIC METABOLIC [id number] 05:41:00* Test Item Value Reference Range Comments SODIUM (BEAKER) (test jdxd=853) 140 meq/L 135-148 POTASSIUM (BEAKER) (test sdtv=738) 4.7 meq/L 3.6-5.5 CHLORIDE (BEAKER) (test fewz=710) 99 meq/L 98-106 CO2 (BEAKER) (test cfjn=795) 21 meq/L 20-29 BLOOD UREA NITROGEN (BEAKER) (test chpo=367) 23 mg/dL 10-26 CREATININE (BEAKER) (test bams=427) 5.80 mg/dL 0.50-1.20 GLUCOSE RANDOM (BEAKER) (test xvjd=893) 259 mg/dL 70-110 CALCIUM (BEAKER) (test xiyo=446) 9.4 mg/dL 8.5-10.5 EGFR (BEAKER) (test bzjt=2202) 11 mL/min/1.73 sq m ESTIMATED GFR IS NOT ACCURATE CREATININE CLEARANCE IN PREDICTING GLOMERULAR FILTRATION RATE. ESTIMATED GFR IS NOT APPLICABLE FOR DIALYSIS PATIENTS. CBC W/PLT COUNT & AUTO [id number] 05:10:00* Test Item Value Reference Range Comments WHITE BLOOD CELL COUNT (BEAKER) (test jvpq=180) 5.5 K/ L 4.0-10.0 RED BLOOD CELL COUNT (BEAKER) (test yyhe=729) 4.41 M/ L 4.00-5.00 HEMOGLOBIN (BEAKER) (test vifg=986) 12.6 GM/DL 12.0-15.0 HEMATOCRIT (BEAKER) (test vqdh=681) 39.1 % 36.0-45.0 MEAN CORPUSCULAR VOLUME (BEAKER) (test txua=777) 88.5 fL 82.0-99.0 MEAN CORPUSCULAR HEMOGLOBIN (BEAKER) (test wgcy=486) 28.5 pg 27.0-33.0 MEAN CORPUSCULAR HEMOGLOBIN CONC (BEAKER) (test vnit=877) 32.2 GM/DL 32.0- 36.0 RED CELL DISTRIBUTION WIDTH (BEAKER) (test enzi=321) 15.4 % 10.3-14.2 PLATELET COUNT (BEAKER) (test vnec=316) 249 K/CU MM 150-430 MEAN PLATELET VOLUME (BEAKER) (test psql=811) 7.7 fL 6.5-10.5 NUCLEATED RED BLOOD CELLS (BEAKER) (test cyzw=305) 0 /100 WBC 0-0 NEUTROPHILS RELATIVE PERCENT (BEAKER) (test hemc=973) 78 % LYMPHOCYTES RELATIVE PERCENT (BEAKER) (test yzgh=564) 14 % MONOCYTES RELATIVE PERCENT (BEAKER) (test dpox=037) 5 % EOSINOPHILS RELATIVE PERCENT (BEAKER) (test codd=924) 3 % BASOPHILS RELATIVE PERCENT (BEAKER) (test rmse=681) 0 % NEUTROPHILS ABSOLUTE COUNT (BEAKER) (test ndyr=682) 4.30 K/ L 1.80-8.00 LYMPHOCYTES ABSOLUTE COUNT (BEAKER) (test rvuu=306) 0.80 K/ L 1.48-4.50 MONOCYTES ABSOLUTE COUNT (BEAKER) (test fywq=616) 0.30 K/ L 0.00-1.30 EOSINOPHILS ABSOLUTE COUNT (BEAKER) (test tgzr=037) 0.10 K/ L 0.00-0.50 BASOPHILS ABSOLUTE COUNT (BEAKER) (test ucto=598) 0.00 K/ L 0.00-0.20 POCT-GLUCOSE [id number] 20:53:00* Test Item Value Reference Range Comments POC-GLUCOSE METER (BEAKER) (test jmni=3042) 102 mg/dL 70-110 TESTED AT [facility] [address] [place] [address] HEPATITIS B SURFACE [id number] 16:39:00* Test Item Value Reference Range Comments HEPATITIS B SURFACE ANTIGEN (2) (BEAKER) (test rcva=9795) Nonreactive Nonreactive POCT-GLUCOSE [id number] 16:23:00* Test Item Value Reference Range Comments POC-GLUCOSE METER (BEAKER) (test qypg=8035) 132 mg/dL 70-110 TESTED AT [facility] [address] [facility] [address] POCT-GLUCOSE [id number] 12:16:00* Test Item Value Reference Range Comments POC-GLUCOSE METER (BEAKER) (test qird=6806) 194 mg/dL 70-110 TESTED AT [facility] [address] [facility] [address] LIPID [id number] 06:17:00* Test Item Value Reference Range Comments TRIGLYCERIDES (BEAKER) (test exhd=230) 88 mg/dL Specimen slightly hemolyzed CHOLESTEROL (BEAKER) (test yoei=489) 148 mg/dL Specimen slightly hemolyzed HDL CHOLESTEROL (BEAKER) (test neyq=978) 38 mg/dL LDL CHOLESTEROL CALCULATED (BEAKER) (test rsye=736) 92 mg/dL Triglyceride Reference Range: Low Risk <150 Borderline 150-199 High Risk 200-499 Very High Risk >=500Cholesterol Reference Range: Low Risk <200 Borderline 200-239 High Risk >240HDL Cholesterol Reference Range: Low Risk >=60 High Risk <40LDL Cholesterol Reference Range: Optimal <100 Near Optimal 100-129 Borderline 130-159 High 160-189 Very High >=190 BASIC METABOLIC [id number] 06:09:00* Test Item Value Reference Range Comments SODIUM (BEAKER) (test pgkm=251) 140 meq/L 135-148 POTASSIUM (BEAKER) (test jqqg=874) 4.4 meq/L 3.6-5.5 Specimen slightly hemolyzed CHLORIDE (BEAKER) (test vaab=704) 101 meq/L 98-106 CO2 (BEAKER) (test dqyo=481) 23 meq/L 20-29 BLOOD UREA NITROGEN (BEAKER) (test eykj=333) 44 mg/dL 10-26 CREATININE (BEAKER) (test stkc=525) 8.60 mg/dL 0.50-1.20 Specimen slightly hemolyzed GLUCOSE RANDOM (BEAKER) (test ijoh=079) 109 mg/dL 70-110 CALCIUM (BEAKER) (test pgjs=809) 9.0 mg/dL 8.5-10.5 EGFR (BEAKER) (test voaq=2743) 7 mL/min/1.73 sq m ESTIMATED GFR IS NOT ACCURATE CREATININE CLEARANCE IN PREDICTING GLOMERULAR FILTRATION RATE. ESTIMATED GFR IS NOT APPLICABLE FOR DIALYSIS PATIENTS. POCT-GLUCOSE [id number] 06:05:00* Test Item Value Reference Range Comments POC-GLUCOSE METER (BEAKER) (test ydjf=7085) 110 mg/dL 70-110 TESTED AT [facility] [address] [facility] [address] HEMOGLOBIN [id number] 05:52:00* Test Item Value Reference Range Comments HEMOGLOBIN A1C (BEAKER) (test dfwp=193) 9.8 % 4.3-6.1 CBC W/PLT COUNT & AUTO [id number] 05:52:00* Test Item Value Reference Range Comments WHITE BLOOD CELL COUNT (BEAKER) (test rxna=082) 5.9 K/ L 4.0-10.0 RED BLOOD CELL COUNT (BEAKER) (test ychf=476) 3.91 M/ L 4.00-5.00 HEMOGLOBIN (BEAKER) (test mlkd=752) 11.3 GM/DL 12.0-15.0 HEMATOCRIT (BEAKER) (test rcmp=087) 35.0 % 36.0-45.0 MEAN CORPUSCULAR VOLUME (BEAKER) (test rnqk=885) 89.5 fL 82.0-99.0 MEAN CORPUSCULAR HEMOGLOBIN (BEAKER) (test rrfp=395) 28.8 pg 27.0-33.0 MEAN CORPUSCULAR HEMOGLOBIN CONC (BEAKER) (test yhyn=616) 32.1 GM/DL 32.0- 36.0 RED CELL DISTRIBUTION WIDTH (BEAKER) (test rcgi=816) 14.9 % 10.3-14.2 PLATELET COUNT (BEAKER) (test qhzd=606) 222 K/CU MM 150-430 MEAN PLATELET VOLUME (BEAKER) (test osza=505) 7.6 fL 6.5-10.5 NUCLEATED RED BLOOD CELLS (BEAKER) (test mhgp=234) 0 /100 WBC 0-0 NEUTROPHILS RELATIVE PERCENT (BEAKER) (test dhhp=114) 59 % LYMPHOCYTES RELATIVE PERCENT (BEAKER) (test dria=388) 29 % MONOCYTES RELATIVE PERCENT (BEAKER) (test btco=028) 8 % EOSINOPHILS RELATIVE PERCENT (BEAKER) (test tkll=710) 4 % BASOPHILS RELATIVE PERCENT (BEAKER) (test qbfo=086) 0 % NEUTROPHILS ABSOLUTE COUNT (BEAKER) (test sqcx=955) 3.50 K/ L 1.80-8.00 LYMPHOCYTES ABSOLUTE COUNT (BEAKER) (test wzeb=842) 1.70 K/ L 1.48-4.50 MONOCYTES ABSOLUTE COUNT (BEAKER) (test ontb=319) 0.50 K/ L 0.00-1.30 EOSINOPHILS ABSOLUTE COUNT (BEAKER) (test anko=837) 0.30 K/ L 0.00-0.50 BASOPHILS ABSOLUTE COUNT (BEAKER) (test vvcw=780) 0.00 K/ L 0.00-0.20 POCT-GLUCOSE [id number] 20:35:00* Test Item Value Reference Range Comments POC-GLUCOSE METER (BEAKER) (test rjoc=5027) 106 mg/dL 70-110 TESTED AT [facility] [address] [place] [address] HEPATIC FUNCTION [id number] 14:34:00* Test Item Value Reference Range Comments TOTAL PROTEIN (BEAKER) (test bhij=387) 8.4 gm/dL 6.0-8.5 ALBUMIN (BEAKER) (test fair=2951) 4.5 g/dL 3.5-5.0 BILIRUBIN TOTAL (BEAKER) (test liwi=832) 0.4 mg/dL 0.1-1.2 BILIRUBIN DIRECT (BEAKER) (test rfje=888) 0.2 mg/dL 0.0-0.4 ALKALINE PHOSPHATASE (BEAKER) (test bjck=003) 96 U/L 30-115 AST (SGOT) (BEAKER) (test mwje=092) 8 U/L 5-40 ALT (SGPT) (BEAKER) (test ynsa=335) 9 U/L 5-50 [id number] 14:34:00* Test Item Value Reference Range Comments LIPASE (BEAKER) (test clbt=989) 20 U/L 6-51 BASIC METABOLIC [id number] 14:33:00* Test Item Value Reference Range Comments SODIUM (BEAKER) (test kjxp=095) 141 meq/L 135-148 POTASSIUM (BEAKER) (test ccst=203) 4.6 meq/L 3.6-5.5 CHLORIDE (BEAKER) (test nocc=119) 102 meq/L 98-106 CO2 (BEAKER) (test fryx=011) 19 meq/L 20-29 BLOOD UREA NITROGEN (BEAKER) (test knzx=690) 39 mg/dL 10-26 CREATININE (BEAKER) (test ahsf=220) 7.10 mg/dL 0.50-1.20 GLUCOSE RANDOM (BEAKER) (test lzag=079) 107 mg/dL 70-110 CALCIUM (BEAKER) (test oatd=876) 9.8 mg/dL 8.5-10.5 EGFR (BEAKER) (test jzqv=5225) 8 mL/min/1.73 sq m ESTIMATED GFR IS NOT ACCURATE CREATININE CLEARANCE IN PREDICTING GLOMERULAR FILTRATION RATE. ESTIMATED GFR IS NOT APPLICABLE FOR DIALYSIS PATIENTS. HCG, QUANTITATIVE, [id number] 14:21:00* Test Item Value Reference Range Comments GONADOTROPIN, CHORIONIC (HCG) QUANT (BEAKER) (test zzbg=829) < mIU/mL 0-10 Non- Females: <10 mIU/mL Females: Gestation Age Reference Range(mIU/mL) 0.2-1 Week 5-50 1-2 Weeks 50-500 2-3 Weeks 100-5,000 3-4 Weeks 500-10,000 4-5 Weeks 1,000-50,000 5-6 Weeks 10,000-100,000 6-8 Weeks 15,000-200,000 2-3 Months 10,000-100,000 CBC W/PLT COUNT & AUTO [id number] 14:21:00* Test Item Value Reference Range Comments WHITE BLOOD CELL COUNT (BEAKER) (test cqsb=532) 6.0 K/ L 4.0-10.0 RED BLOOD CELL COUNT (BEAKER) (test bjno=292) 4.60 M/ L 4.00-5.00 HEMOGLOBIN (BEAKER) (test kuew=436) 13.0 GM/DL 12.0-15.0 HEMATOCRIT (BEAKER) (test azzw=311) 40.9 % 36.0-45.0 MEAN CORPUSCULAR VOLUME (BEAKER) (test dkjb=846) 88.8 fL 82.0-99.0 MEAN CORPUSCULAR HEMOGLOBIN (BEAKER) (test ycrn=414) 28.3 pg 27.0-33.0 MEAN CORPUSCULAR HEMOGLOBIN CONC (BEAKER) (test ysor=571) 31.8 GM/DL 32.0- 36.0 RED CELL DISTRIBUTION WIDTH (BEAKER) (test bohs=568) 15.5 % 10.3-14.2 PLATELET COUNT (BEAKER) (test ncva=847) 200 K/CU MM 150-430 MEAN PLATELET VOLUME (BEAKER) (test jwub=278) 8.0 fL 6.5-10.5 NUCLEATED RED BLOOD CELLS (BEAKER) (test ucey=793) 0 /100 WBC 0-0 NEUTROPHILS RELATIVE PERCENT (BEAKER) (test sldo=555) 62 % LYMPHOCYTES RELATIVE PERCENT (BEAKER) (test ycac=743) 25 % MONOCYTES RELATIVE PERCENT (BEAKER) (test bnah=141) 5 % EOSINOPHILS RELATIVE PERCENT (BEAKER) (test wphs=650) 8 % BASOPHILS RELATIVE PERCENT (BEAKER) (test odpo=249) 0 % NEUTROPHILS ABSOLUTE COUNT (BEAKER) (test euwp=209) 3.70 K/ L 1.80-8.00 LYMPHOCYTES ABSOLUTE COUNT (BEAKER) (test xitx=074) 1.50 K/ L 1.48-4.50 MONOCYTES ABSOLUTE COUNT (BEAKER) (test zirn=476) 0.30 K/ L 0.00-1.30 EOSINOPHILS ABSOLUTE COUNT (BEAKER) (test qfpa=698) 0.50 K/ L 0.00-0.50 BASOPHILS ABSOLUTE COUNT (BEAKER) (test gdra=725) 0.00 K/ L 0.00-0.20 KETONE, [id number] 13:46:00* Test Item Value Reference Range Comments KETONES, BLOOD (BEAKER) (test qpgx=9726) 0.4 mmol/L <0.4 GLUCOMETER GLUCOSE- LAB USE [id number] 10:47:00* Test Item Value Reference Range Comments GLUCOMETER (test code=GMG) 363 mg/dL 70-100 Meter ID: [id number]: [address] GLUCOMETER GLUCOSE- LAB USE [id number] 05:19:00* Test Item Value Reference Range Comments GLUCOMETER (test code=GMG) 193 mg/dL 70-100 Meter ID: [id number]: [address] GLUCOMETER GLUCOSE- LAB USE [id number] 20:30:00* Test Item Value Reference Range Comments GLUCOMETER (test code=GMG) 303 mg/dL 70-100 Meter ID: [id number]: [address] GLUCOMETER GLUCOSE- LAB USE [id number] 17:00:00* Test Item Value Reference Range Comments GLUCOMETER (test code=GMG) 138 mg/dL 70-100 Meter ID: [id number]: [address] GLUCOMETER GLUCOSE- LAB USE [id number] 12:28:00* Test Item Value Reference Range Comments GLUCOMETER (test code=GMG) 241 mg/dL 70-100 CLEANED METERMeter ID: [id number]: [address] [facility] METABOLIC [id number] 06:21:00* Test Item Value Reference Range Comments GLUCOSE (test code=06D) 374 mg/dL 75-100 SODIUM (test code=01A) 134 mmol/L 136-145 POTASSIUM (test code=01B) 5.3 mmol/L 3.6-5.1 CHLORIDE (test code=04A) 98 mmol/L 98-107 CO2 (test code=02A) 24 mmol/L 22-32 ANION GAP (test code=ANG) 17.3 mmol/L BUN (test code=05D) 38 mg/dL 7-18 CREATININE (test code=03E) 6.5 mg/dL 0.4-1.1 BUN/CREA (test code=BCR) 6 12-20 CALCIUM (test code=09D) 8.6 mg/dL 8.3-9.5 BILI TOTAL (test code=11A) 0.4 mg/dL 0.2-1.0 PROTEIN (test code=07D) 7.8 g/dL 6.4-8.2 ALBUMIN (test code=08D) 3.5 g/dL 3.5-4.8 GLOBULIN (test code=GLB) 4.3 g/dL 1.5-3.8 ALB/GLOB (test code=AGRR) 0.8 1.0-2.6 ALK PHOS (test code=35A) 106 IU/L 42-121 AST (test code=30A) 8 IU/L <=42 ALT (test code=31A) 12 IU/L <=78 CBC (INCLUDES AUTOMATED DIFFERENTIAL)2017-10-22 05:02:00* Test Item Value Reference Range Comments WBC (test code=WBC) 7.5 10\S\3/uL 4.5-11.0 RBC (test code=RBC) 4.23 10\S\6/uL 4.30-5.70 HGB (test code=HBG) 12.0 g/dL 12.0-15.5 HCT (test code=HCT) 37.9 % 35.0-44.0 MCV (test code=MCV) 89.6 fL 81.0-99.0 MCH (test code=MCH) 28.4 pg 27.0-31.0 MCHC (test code=MCHC) 31.7 g/dL 32.0-36.0 RDW (test code=RDW) 13.9 % 11.5-14.5 PLT (test code=PLT) 254 10\S\3/uL 130-400 MPV (test code=MPV) 9.7 fL 9.4-12.4 NEUTROP # (test code=NE#) 6.7 10\S\3/uL 1.6-8.0 LYMPH # (test code=LY#) 0.6 10\S\3/uL 1.1-3.5 MONOCYTE # (test code=MO#) 0.2 10\S\3/uL 0.0-1.1 EOSINOPH # (test code=EO#) 0.0 10\S\3/uL 0.0-0.7 BASOPHIL # (test code=BA#) 0.0 10\S\3/uL 0.0-0.3 IG # (test code=IG#) 0.05 10\S\3/uL 0.00-0.06 NRBC # (test code=NRBC#) 0.00 10\S\3/uL 0.00-0.01 NEUTROPH % (test code=NE%) 88.6 % 35.0-73.0 LYMPH % (test code=LY%) 7.9 % 20.0-55.0 MONO % (test code=MO%) 2.5 % 2.5-10.0 EOSINOPH % (test code=EO%) 0.0 % 0.0-5.0 BASOPHIL % (test code=BA%) 0.3 % 0.0-2.0 IG % (test code=IG%) 0.7 % 0.0-0.8 NRBC% (test code=NRBC%) 0.0 % 0.0-0.2 MANDIFF (test code=MDIFF) NO NO RBC MORPH (test code=RBCMOR) NORMAL CT ABDOMEN AND PELVIS WITHOUT CONTRAST 2017-10-21 21:09:40Examination: Abdomen and pelvic CT without contrastLocation code: [id number]: Abdomen and pelvic CT 09/12/17Technique:Axial noncontrast imaging through the abdomen and pelvis is performed followedby coronal and sagittal reformations. One or more of the following dosereduction techniques were used: Automated exposure control , adjustment of themA and or KV according to patient size, and/or utilization of iterativereconstruction technique.Discussion:Clinical history is remarkable for epigastric pain, vomiting. Lung bases areclear. The heart is normal in size.Evaluation is limited by the lack of contrast media. The liver is unremarkable.Gallbladder is surgically absent. Spleen, pancreas, and adrenal glands appearnormal. The kidneys are not identified in the renal fossa. 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 No hydronephrosis orhydroureter is present. The bladder is remarkable for mild wall thickening.Uterus and adnexa appear normal.Caliber of the bowel appears be within normal limits, mild feces is presentwithin the colon. Appendix were seen is normal.There are no lytic or blastic lesions present within the osseous structures.Impression:1. Mild constipation. SERUM MONOCLONAL 10-21 20:31:00* Test Item Value Reference Range Comments PREG SRM (test code=PGS) NEGATIVE NEGATIVE AMYLASE AND LIPASE 2017-10-21 18:13:00* Test Item Value Reference Range Comments AMYLASE (test code=10A) 120 U/L 28-100 LIPASE (test code=60A) 310 IU/L 73-393 COMPREHENSIVE METABOLIC FULTON 2017-10-21 18:13:00* Test Item Value Reference Range Comments GLUCOSE (test code=06D) 148 mg/dL 75-100 SODIUM (test code=01A) 135 mmol/L 136-145 POTASSIUM (test code=01B) 3.2 mmol/L 3.6-5.1 CHLORIDE (test code=04A) 95 mmol/L 98-107 CO2 (test code=02A) 28 mmol/L 22-32 ANION GAP (test code=ANG) 14.7 mmol/L BUN (test code=05D) 26 mg/dL 7-18 CREATININE (test code=03E) 4.9 mg/dL 0.4-1.1 BUN/CREA (test code=BCR) 5 12-20 CALCIUM (test code=09D) 9.2 mg/dL 8.3-9.5 BILI TOTAL (test code=11A) 0.3 mg/dL 0.2-1.0 PROTEIN (test code=07D) 9.2 g/dL 6.4-8.2 ALBUMIN (test code=08D) 4.0 g/dL 3.5-4.8 GLOBULIN (test code=GLB) 5.2 g/dL 1.5-3.8 ALB/GLOB (test code=AGRR) 0.8 1.0-2.6 ALK PHOS (test code=35A) 129 IU/L 42-121 AST (test code=30A) 9 IU/L <=42 ALT (test code=31A) 10 IU/L <=78 MAGNESIUM WW2017-10-21 18:07:00* Test Item Value Reference Range Comments MAGNESIUM (test code=48A) 2.2 mg/dL 1.8-2.4 CBC (INCLUDES AUTOMATED DIFFERENTIAL)*[id number] 17:57:00* Test Item Value Reference Range Comments WBC (test code=WBC) 6.7 10\S\3/uL 4.5-11.0 RBC (test code=RBC) 4.97 10\S\6/uL 4.30-5.70 HGB (test code=HBG) 14.0 g/dL 12.0-15.5 HCT (test code=HCT) 43.5 % 35.0-44.0 MCV (test code=MCV) 87.5 fL 81.0-99.0 MCH (test code=MCH) 28.2 pg 27.0-31.0 MCHC (test code=MCHC) 32.2 g/dL 32.0-36.0 RDW (test code=RDW) 13.7 % 11.5-14.5 PLT (test code=PLT) 280 10\S\3/uL 130-400 MPV (test code=MPV) 9.4 fL 9.4-12.4 NEUTROP # (test code=NE#) 4.4 10\S\3/uL 1.6-8.0 LYMPH # (test code=LY#) 1.6 10\S\3/uL 1.1-3.5 MONOCYTE # (test code=MO#) 0.3 10\S\3/uL 0.0-1.1 EOSINOPH # (test code=EO#) 0.3 10\S\3/uL 0.0-0.7 BASOPHIL # (test code=BA#) 0.1 10\S\3/uL 0.0-0.3 IG # (test code=IG#) 0.05 10\S\3/uL 0.00-0.06 NRBC # (test code=NRBC#) 0.00 10\S\3/uL 0.00-0.01 NEUTROPH % (test code=NE%) 66.1 % 35.0-73.0 LYMPH % (test code=LY%) 23.4 % 20.0-55.0 MONO % (test code=MO%) 4.8 % 2.5-10.0 EOSINOPH % (test code=EO%) 4.3 % 0.0-5.0 BASOPHIL % (test code=BA%) 0.7 % 0.0-2.0 IG % (test code=IG%) 0.7 % 0.0-0.8 NRBC% (test code=NRBC%) 0.0 % 0.0-0.2 MANDIFF (test code=WMDIFF) NO NO RBC MORPH (test code=WRBCMOR) NORMAL HEPATITIS B CORE AB TOTAL *WW*2017-09-13 14:51:00* Test Item Value Reference Range Comments HEPATITIS B CORE AB TOTAL (test iwff=[id number]) NON-REACTIVE NON-REACTIVE TEST PERFORMED AT:[facility] [id number] [place] [id number] STEWART M.D. COMPREHENSIVE METABOLIC FULTON *WW*2017-09-13 07:10:00* [...] code=31A) 13 IU/L <=78 CBC (INCLUDES AUTOMATED DIFFERENTIAL)*[id number] 06:48:00* Test Item Value Reference Range Comments [...] (test code=WRBCMOR) NORMAL GLUCOMETER GLUCOSE- LAB USE [id number] 21:33:00* Test Item Value Reference Range Comments GLUCOMETER (test code=GMG) 122 mg/dL 70-100 Meter ID: [id number]: [facility] [place] GLU[facility] GLUCOSE- LAB USE [id number] 16:30:00* Test Item Value Reference Range Comments GLUCOMETER (test code=GMG) 205 mg/dL 70-100 CLEANED METERMeter ID: [id number]: 0832 FLORA FIELDSAxial GLUCOMETER GLUCOSE- LAB USE [id number] 11:36:00* Test Item Value Reference Range Comments GLUCOMETER (test code=GMG) 122 mg/dL 70-100 CLEANED METERMeter ID: [id number]: [address] ABDOMEN AND PELVIS WITHOUT CONTRAST 2017-09-12 10:03:36CT abdomen and pelvis without contrastLocation Code: Q1VACVKEVE HISTORY: [id number]: Crohn's diseaseCOMPARISON: 08/06/17Technique: Helical CT of the [...] code=31A) 11 IU/L <=78 CBC (INCLUDES AUTOMATED DIFFERENTIAL)*[id number] 06:08:00* Test Item Value Reference Range Comments [...] (test code=WRBCMOR) NORMAL GLUCOMETER GLUCOSE- LAB USE [id number] 21:45:00* Test Item Value Reference Range Comments GLUCOMETER (test code=GMG) 111 mg/dL 70-100 CLEANED METERMeter ID: [id number]: 2907 [address] [place] HEPATITIS B SURFACE ANTIBODY 2017-09-11 18:29:00* Test Item Value Reference Range Comments HBSAB (test code=HBSAB) REACTIVE REACTIVE HEPATITIS B SURFACE ANTIGEN *WW*2017-09-11 18:08:00* Test Item Value Reference Range Comments HBSAG (test code=HBSAG) NON-REACTIVE NON-REACTIVE GLUCOMETER GLUCOSE- LAB USE [id number] 16:26:00* Test Item Value Reference Range Comments GLUCOMETER (test code=GMG) 76 mg/dL 70-100 CLEANED METERMeter ID: [id number]: 0832 FLORA CORDOVA GLUCOMETER GLUCOSE- LAB USE [id number] 11:32:00* Test Item Value Reference Range Comments GLUCOMETER (test code=GMG) 178 mg/dL 70-100 CLEANED METERMeter ID: [id number]: 0832 FLORA CORDOVA COMPREHENSIVE METABOLIC FULTON 2017-09-11 06:20:00* Test Item Value Reference Range Comments [...] code=31A) 13 IU/L <=78 CBC (INCLUDES AUTOMATED DIFFERENTIAL)*[id number] 06:06:00* Test Item Value Reference Range Comments [...] (test code=WRBCMOR) NORMAL GLUCOMETER GLUCOSE- LAB USE [id number] 20:04:00* Test Item Value Reference Range Comments GLUCOMETER (test code=GMG) 183 mg/dL 70-100 Meter ID: [id number]: 4268 ESTERLITA RORY GLUCOMETER GLUCOSE- LAB USE [id number] 16:19:00* Test Item Value Reference Range Comments GLUCOMETER (test code=GMG) 175 mg/dL 70-100 CLEANED METERMeter ID: [id number]: 2349 JANELLE THAMPI GLUCOMETER GLUCOSE- LAB USE [id number] 12:32:00* Test Item Value Reference Range Comments GLUCOMETER (test code=GMG) 61 mg/dL 70-100 CLEANED METERMeter ID: [id number]: 2349 JANELLE THAMPI GLUCOMETER GLUCOSE- LAB USE [id number] 12:15:00* Test Item Value Reference Range Comments GLUCOMETER (test code=GMG) 59 mg/dL 70-100 CLEANED METERMeter ID: [id number]: 2349 JANELLE THAMPI GLUCOMETER GLUCOSE- LAB USE [id number] 05:20:00* Test Item Value Reference Range Comments GLUCOMETER (test code=GMG) 221 mg/dL 70-100 Meter ID: [id number]: 5304 JOHN MATTHEW GLUCOMETER GLUCOSE- LAB USE [id number] 22:02:00* Test Item Value Reference Range Comments GLUCOMETER (test code=GMG) 315 mg/dL 70-100 Meter ID: [id number]: 5304 JOHN CONKLINZMAN AMYLASE AND LIPASE *WW*2017-09-09 18:08:00* Test Item Value Reference Range [...] ALT (test code=31A) 20 IU/L <=78 MAGNESIUM 2017-09-09 18:08:00* Test Item Value Reference Range Comments MAGNESIUM (test code=48A) 2.1 mg/dL 1.8-2.4 CBC (INCLUDES AUTOMATED DIFFERENTIAL)*[id number] 17:58:00* Test Item Value Reference Range Comments [...] code=WRBCMOR) NORMAL U/S VENOUS DOPPLER LT UPPER EXT*WW*2017-08-06 21:19:01EXAM: Left upper extremity duplex venous ultrasoundLocation: [...] Order Code is ANTI-XA BRAIN NATRIURETIC PROTEIN *WW*2017-08-06 20:18:00* Test Item Value Reference Range Comments proBNP (test code=PBNP) 2959 pg/mL 0-125 AMYLASE AND LIPASE *WW*2017-08-06 20:15:00* Test Item Value Reference Range [...] ALT (test code=31A) 17 IU/L <=78 MAGNESIUM WW2017-08-06 20:10:00* Test Item Value Reference Range Comments MAGNESIUM (test code=48A) 1.9 mg/dL 1.8-2.4 CBC (INCLUDES AUTOMATED DIFFERENTIAL)*[id number] 20:03:00* Test Item Value Reference Range Comments [...] NORMAL CT ABDOMEN AND PELVIS WITHOUT CONTRAST *WW*2017-08-06 19:43:29EXAM: CT abdomen and pelvis without contrastLocation: [...] reconstruction technique.CT ABDOMEN AND PELVIS WITHOUT CONTRAST *WW*2017-08-04 17:54:49EXAM: CT abdomen and pelvis with contrastLocation: [...] code=31A) 16 IU/L <=78 AMYLASE AND LIPASE *WW*2017-08-04 17:32:00* Test Item Value Reference Range Comments AMYLASE (test code=10A) 55 U/L 28-100 LIPASE (test code=60A) 128 IU/L 73-393 SERUM MONOCLONAL *WW*2017-08-04 17:21:00* Test Item Value Reference Range Comments PREG SRM (test code=PGS) NEGATIVE NEGATIVE CBC (INCLUDES AUTOMATED DIFFERENTIAL)*[id number] 17:18:00* Test Item Value Reference Range Comments [...] code=WRBCMOR) NORMAL XR CHEST 1 VIEW PORTABLE 2017-08-04 16:55:08STUDY: Chest radiographHISTORY: End-stage renal disease.COMPARISON: 07/08/17TECHNIQUE: Frontal view of the chest.LOCATION: [id number]:There is a dual-lumen tunneled left internal jugular venous catheter with tipsprojecting at the cavoatrial junction and right atrium.The cardiac and mediastinal silhouette is unremarkable. There is no pleuraleffusion, pneumothorax or focal consolidation.No acute osseous abnormalities are identified.IMPRESSION:1. No radiographic evidence for acute pulmonary abnormality.COMPREHENSIVE METABOLIC FULTON 2017-07-30 06:04:00* Test Item Value Reference Range [...] code=60A) 134 IU/L 73-393 CBC (INCLUDES AUTOMATED DIFFERENTIAL)*[id number] 05:33:00* Test Item Value Reference Range Comments [...] (test code=WRBCMOR) NORMAL GLUCOMETER GLUCOSE- LAB USE [id number] 05:02:00* Test Item Value Reference Range Comments GLUCOMETER (test code=GMG) 323 mg/dL 70-100 Meter ID: [id number]: [address] ABDOMEN AND PELVIS WITHOUT CONTRAST *WW*2017-07-28 22:50:53CT SCAN OF THE ABDOMEN AND PELVIS WITHOUT CONTRASTAfter-hours services performed 07/28/2017 at 2220 hoursLocation: [id number] HISTORY: Abdominal pain end-stage renal disease and [...] within it. Pelvicultrasound recommended.GLUCOMETER GLUCOSE- LAB USE [id number] 21:34: 00* Test Item Value Reference Range Comments GLUCOMETER (test code=GMG) 222 mg/dL 70-100 Meter ID: [id number]: 5760 ASHIA HOLT CBC (INCLUDES AUTOMATED DIFFERENTIAL)*[id number] 21:33:00* Test Item Value Reference Range Comments [...] code=31A) 13 IU/L <=78 AMYLASE AND LIPASE *WW*2017-07-28 20:04:00* Test Item Value Reference Range Comments AMYLASE (test code=10A) 59 U/L 28-100 LIPASE (test code=60A) 100 IU/L 73-393 MAGNESIUM WW2017-07-28 20:04:00* Test Item Value Reference Range Comments MAGNESIUM (test code=48A) 2.4 mg/dL 1.8-2.4 CBC (INCLUDES AUTOMATED DIFFERENTIAL)*[id number] 19:56:00* Test Item Value Reference Range Comments [...] NORMAL XR ABDOMEN 2 VIEWS W/PA CHEST 2017-07-12 11:58:04EXAM: Chest 1 view and Abdomen 2 viewsLocation code:C0BOOMPTR: Abdominal pain .COMPARISON: None availableCOMMENT: A left [...] code=60A) 128 IU/L 73-393 CBC (INCLUDES AUTOMATED DIFFERENTIAL)*[id number] 11:05:00* Test Item Value Reference Range Comments [...] code=WRBCMOR) NORMAL DIRECT INFLUENZA A AND B [id number] 10:28:00* Test Item Value Reference Range Comments Direct Exam (test code=DE3) PRESUMPTIVE NEGATIVE FOR THE PRESENCE OF INFLUENZA ANTIGEN CT ABDOMEN AND PELVIS WITHOUT CONTRAST *WW*2017-07-08 22:29:47LOCATION: [id number]: 26-year-old female who presents with abdominal pain. The patient has ahistory of ESRD.COMMENT: After-hours service at 10:[address] imaging of this patient's abdomen and pelvis was obtained without IVcontrast. Coronal and sagittal soft tissue reconstructions were included. Ujdod1Zbt or more of the following dose reduction [...] code=09D) 9.0 mg/dL 8.3-9.5 CBC (INCLUDES AUTOMATED DIFFERENTIAL)*[id number] 20:22:00* Test Item Value Reference Range Comments [...] XR CHEST 1 VIEW PORTABLE *WW*2017-07-08 20:07:14LOCATION: [id number]: 26-year- old female with end-stage renal disease.COMMENT: [...] catheter is present.IMPRESSION:Unremarkable portable examination of the chest.BASIC METABOLIC [id number] 12:04:00* Test Item Value Reference Range Comments SODIUM (BEAKER) (test ihda=046) 140 meq/L 135-148 POTASSIUM (BEAKER) (test ndaz=232) 3.3 meq/L 3.6-5.5 Specimen slightly hemolyzed CHLORIDE (BEAKER) (test plih=858) 103 meq/L 98-106 CO2 (BEAKER) (test nmhn=992) 22 meq/L 20-29 BLOOD UREA NITROGEN (BEAKER) (test anrq=338) 22 mg/dL 10-26 CREATININE (BEAKER) (test qefl=831) 5.80 mg/dL 0.50-1.20 Specimen slightly hemolyzed GLUCOSE RANDOM (BEAKER) (test umgs=678) 243 mg/dL 70-110 CALCIUM (BEAKER) (test yjdg=102) 8.4 mg/dL 8.5-10.5 EGFR (BEAKER) (test fnnh=6731) 11 mL/min/1.73 sq m ESTIMATED GFR IS NOT ACCURATE CREATININE CLEARANCE IN PREDICTING GLOMERULAR FILTRATION RATE. ESTIMATED GFR IS NOT APPLICABLE FOR DIALYSIS PATIENTS. HEPATIC FUNCTION [id number] 12:03:00* Test Item Value Reference Range Comments TOTAL PROTEIN (BEAKER) (test uerg=198) 7.4 gm/dL 6.0-8.5 Specimen slightly hemolyzed ALBUMIN (BEAKER) (test wath=2300) 3.7 g/dL 3.5-5.0 Specimen slightly hemolyzed BILIRUBIN TOTAL (BEAKER) (test gvwr=571) 0.3 mg/dL 0.1-1.2 Specimen slightly hemolyzed BILIRUBIN DIRECT (BEAKER) (test yoyp=219) 0.1 mg/dL 0.0-0.4 Specimen slightly hemolyzed ALKALINE PHOSPHATASE (BEAKER) (test qbcy=001) 176 U/L 30-115 AST (SGOT) (BEAKER) (test tgxh=134) 18 U/L 5-40 Specimen slightly hemolyzed ALT (SGPT) (BEAKER) (test rvhh=020) 13 U/L 5-50 Specimen slightly hemolyzed [id number] 10:28:00* Test Item Value Reference Range Comments LIPASE (BEAKER) (test dncp=213) 38 U/L 6-51 CBC W/PLT COUNT & AUTO [id number] 10:08:00* Test Item Value Reference Range Comments WHITE BLOOD CELL COUNT (BEAKER) (test aoyn=032) 7.1 K/ L 4.0-10.0 RED BLOOD CELL COUNT (BEAKER) (test fuoq=915) 5.24 M/ L 4.00-5.00 HEMOGLOBIN (BEAKER) (test dywp=353) 14.6 GM/DL 12.0-15.0 HEMATOCRIT (BEAKER) (test qxdf=825) 44.5 % 36.0-45.0 MEAN CORPUSCULAR VOLUME (BEAKER) (test vhll=105) 84.9 fL 82.0-99.0 MEAN CORPUSCULAR HEMOGLOBIN (BEAKER) (test eydt=033) 28.0 pg 27.0-33.0 MEAN CORPUSCULAR HEMOGLOBIN CONC (BEAKER) (test fhsp=628) 32.9 GM/DL 32.0- 36.0 RED CELL DISTRIBUTION WIDTH (BEAKER) (test bmkx=116) 16.6 % 10.3-14.2 PLATELET COUNT (BEAKER) (test zeqs=581) 262 K/CU MM 150-430 MEAN PLATELET VOLUME (BEAKER) (test gzrk=510) 7.7 fL 6.5-10.5 NUCLEATED RED BLOOD CELLS (BEAKER) (test qqqs=286) 0 /100 WBC 0-0 NEUTROPHILS RELATIVE PERCENT (BEAKER) (test bonj=838) 78 % LYMPHOCYTES RELATIVE PERCENT (BEAKER) (test dskw=614) 16 % MONOCYTES RELATIVE PERCENT (BEAKER) (test oupq=224) 3 % EOSINOPHILS RELATIVE PERCENT (BEAKER) (test nord=354) 3 % BASOPHILS RELATIVE PERCENT (BEAKER) (test cwlg=029) 0 % NEUTROPHILS ABSOLUTE COUNT (BEAKER) (test yqoz=054) 5.50 K/ L 1.80-8.00 LYMPHOCYTES ABSOLUTE COUNT (BEAKER) (test xikx=573) 1.20 K/ L 1.48-4.50 MONOCYTES ABSOLUTE COUNT (BEAKER) (test mqki=422) 0.20 K/ L 0.00-1.30 EOSINOPHILS ABSOLUTE COUNT (BEAKER) (test bgux=343) 0.20 K/ L 0.00-0.50 BASOPHILS ABSOLUTE COUNT (BEAKER) (test umfq=987) 0.00 K/ L 0.00-0.20 HEPATITIS B SURFACE [id number] 14:22:00* Test Item Value Reference Range Comments HEPATITIS B SURFACE ANTIBODY (BEAKER) (test jjfk=709) 4697.0 mIU/mL <8.0 POCT-GLUCOSE [id number] 12:12:00* Test Item Value Reference Range Comments POC-GLUCOSE METER (BEAKER) (test qnnu=0984) 310 mg/dL 70-110 TESTED AT [place] 8[address]248 POCT-GLUCOSE [id number] 06:37:00* Test Item Value Reference Range Comments POC-GLUCOSE METER (BEAKER) (test dirh=6748) 196 mg/dL 70-110 TESTED AT [place] 817248 POCT-GLUCOSE [id number] 20:46:00* Test Item Value Reference Range Comments POC-GLUCOSE METER (BEAKER) (test pgpj=0337) 343 mg/dL 70-110 Notified ALICJA BECKFORD/ TESTED AT [place] 8[address]248 HEPATITIS B SURFACE [id number] 17:30:00* Test Item Value Reference Range Comments HEPATITIS B SURFACE ANTIGEN (2) (BEAKER) (test rhfd=6570) Nonreactive Nonreactive POCT-GLUCOSE [id number] 16:12:00* Test Item Value Reference Range Comments POC-GLUCOSE METER (BEAKER) (test ngxq=1944) 253 mg/dL 70-110 TESTED AT [place] 817248 POCT-GLUCOSE [id number] 12:15:00* Test Item Value Reference Range Comments POC-GLUCOSE METER (BEAKER) (test xtap=3389) 143 mg/dL 70-110 TESTED AT [place] 817248 POCT-GLUCOSE [id number] 06:30:00* Test Item Value Reference Range Comments POC-GLUCOSE METER (BEAKER) (test nejd=2622) 242 mg/dL 70-110 TESTED AT [address] [address] POCT-GLUCOSE [id number] 02:45:00* Test Item Value Reference Range Comments POC-GLUCOSE METER (BEAKER) (test pnea=2120) 73 mg/dL 70-110 TESTED AT [address] [address] POCT-GLUCOSE [id number] 01:46:00* Test Item Value Reference Range Comments POC-GLUCOSE METER (BEAKER) (test drss=0300) 49 mg/dL 70-110 TESTED AT [address] [address] POCT-GLUCOSE [id number] 21:07:00* Test Item Value Reference Range Comments POC-GLUCOSE METER (BEAKER) (test glva=3413) 79 mg/dL 70-110 TESTED AT [address] [address] SCREEN, [id number] 18:46:00* Test Item Value Reference Range Comments TEST URINE (BEAKER) (test yxul=887) Negative POCT-GLUCOSE [id number] 17:27:00* Test Item Value Reference Range Comments POC-GLUCOSE METER (BEAKER) (test txud=6008) 80 mg/dL 70-110 TESTED AT [address] [address] POCT-GLUCOSE [id number] 12:01:00* Test Item Value Reference Range Comments POC-GLUCOSE METER (BEAKER) (test mjna=8642) 186 mg/dL 70-110 TESTED AT [address] [address] POCT-GLUCOSE [id number] 07:01:00* Test Item Value Reference Range Comments POC-GLUCOSE METER (BEAKER) (test eija=1691) 76 mg/dL 70-110 TESTED AT [address] [address] CBC W/PLT COUNT & AUTO [id number] 06:13:00* Test Item Value Reference Range Comments WHITE BLOOD CELL COUNT (BEAKER) (test muel=315) 6.6 K/ L 4.0-10.0 RED BLOOD CELL COUNT (BEAKER) (test smya=633) 4.04 M/ L 4.00-5.00 HEMOGLOBIN (BEAKER) (test aitx=060) 11.7 GM/DL 12.0-15.0 HEMATOCRIT (BEAKER) (test ebgo=318) 36.0 % 36.0-45.0 MEAN CORPUSCULAR VOLUME (BEAKER) (test wjxm=659) 89.2 fL 82.0-99.0 MEAN CORPUSCULAR HEMOGLOBIN (BEAKER) (test kvfk=125) 28.9 pg 27.0-33.0 MEAN CORPUSCULAR HEMOGLOBIN CONC (BEAKER) (test ujil=734) 32.4 GM/DL 32.0- 36.0 RED CELL DISTRIBUTION WIDTH (BEAKER) (test pohc=019) 18.1 % 10.3-14.2 PLATELET COUNT (BEAKER) (test ecsp=989) 249 K/CU MM 150-430 MEAN PLATELET VOLUME (BEAKER) (test ahul=634) 7.2 fL 6.5-10.5 NUCLEATED RED BLOOD CELLS (BEAKER) (test hkqn=556) 0 /100 WBC 0-0 NEUTROPHILS RELATIVE PERCENT (BEAKER) (test ahkb=125) 62 % LYMPHOCYTES RELATIVE PERCENT (BEAKER) (test dkau=679) 27 % MONOCYTES RELATIVE PERCENT (BEAKER) (test btoj=246) 9 % EOSINOPHILS RELATIVE PERCENT (BEAKER) (test pytf=750) 1 % BASOPHILS RELATIVE PERCENT (BEAKER) (test zzei=491) 1 % NEUTROPHILS ABSOLUTE COUNT (BEAKER) (test nabg=854) 4.10 K/ L 1.80-8.00 LYMPHOCYTES ABSOLUTE COUNT (BEAKER) (test nvxp=901) 1.80 K/ L 1.48-4.50 MONOCYTES ABSOLUTE COUNT (BEAKER) (test toue=624) 0.60 K/ L 0.00-1.30 EOSINOPHILS ABSOLUTE COUNT (BEAKER) (test txlz=741) 0.00 K/ L 0.00-0.50 BASOPHILS ABSOLUTE COUNT (BEAKER) (test bkga=263) 0.10 K/ L 0.00-0.20 COMPREHENSIVE METABOLIC [id number] 05:48:00* Test Item Value Reference Range Comments TOTAL PROTEIN (BEAKER) (test kjbr=857) 6.9 gm/dL 6.0-8.5 ALBUMIN (BEAKER) (test drgb=8945) 3.3 g/dL 3.5-5.0 ALKALINE PHOSPHATASE (BEAKER) (test psic=274) 130 U/L 30-115 BILIRUBIN TOTAL (BEAKER) (test tvbx=198) 0.3 mg/dL 0.1-1.2 SODIUM (BEAKER) (test wyqn=085) 140 meq/L 135-148 POTASSIUM (BEAKER) (test yipi=363) 3.8 meq/L 3.6-5.5 CHLORIDE (BEAKER) (test bjbz=206) 102 meq/L 98-106 CO2 (BEAKER) (test ckgi=494) 25 meq/L 20-29 BLOOD UREA NITROGEN (BEAKER) (test qume=558) 25 mg/dL 10-26 CREATININE (BEAKER) (test vjba=845) 4.90 mg/dL 0.50-1.20 GLUCOSE RANDOM (BEAKER) (test wxig=287) 82 mg/dL 70-110 CALCIUM (BEAKER) (test lmvj=959) 7.8 mg/dL 8.5-10.5 AST (SGOT) (BEAKER) (test xhtn=664) 18 U/L 5-40 ALT (SGPT) (BEAKER) (test bszq=647) 15 U/L 5-50 EGFR (BEAKER) (test ticn=8629) 13 mL/min/1.73 sq m ESTIMATED GFR IS NOT ACCURATE CREATININE CLEARANCE IN PREDICTING GLOMERULAR FILTRATION RATE. ESTIMATED GFR IS NOT APPLICABLE FOR DIALYSIS PATIENTS. [id number] 05:28:00* Test Item Value Reference Range Comments MAGNESIUM (BEAKER) (test jvne=689) 1.8 mg/dL 1.5-3.0 POCT-GLUCOSE [id number] 00:14:00* Test Item Value Reference Range Comments POC-GLUCOSE METER (BEAKER) (test jdsf=9011) 134 mg/dL 70-110 TESTED AT [facility] [address] [place] [address] URINALYSIS W/ [id number] 00:42:00* Test Item Value Reference Range Comments COLOR (BEAKER) (test esvh=264) Yellow CLARITY (BEAKER) (test wsla=900) Clear SPECIFIC GRAVITY UA (BEAKER) (test xxoo=486) 1.020 1.001-1.035 PH UA (BEAKER) (test vzbp=367) 8.0 5.0-8.0 PROTEIN UA (BEAKER) (test ovhu=710) >=300 mg/dL Negative GLUCOSE UA (BEAKER) (test pfxi=672) 100 mg/dL Negative KETONES UA (BEAKER) (test pscd=193) Negative Negative BILIRUBIN UA (BEAKER) (test polv=713) Negative Negative BLOOD UA (BEAKER) (test zlgv=740) Moderate Negative NITRITE UA (BEAKER) (test wnfr=999) Negative Negative LEUKOCYTE ESTERASE UA (BEAKER) (test rwst=774) Negative Negative UROBILINOGEN UA (BEAKER) (test pena=399) 0.2 mg/dL 0.2-1.0 BACTERIA (BEAKER) (test affm=454) Occasional RBC UA-MANUAL (BEAKER) (test dfro=4613) 10-20 /HPF WBC UA-MANUAL (BEAKER) (test hhac=8620) <5 /HPF SQUAMOUS EPITHELIAL MANUAL (BEAKER) (test wvyb=7850) <5 /HPF SOURCE(BEAKER) (test cfaw=3913) HEPATIC FUNCTION [id number] 00:41:00* Test Item Value Reference Range Comments TOTAL PROTEIN (BEAKER) (test wqdh=942) 7.6 gm/dL 6.0-8.5 ALBUMIN (BEAKER) (test ydey=8013) 3.7 g/dL 3.5-5.0 BILIRUBIN TOTAL (BEAKER) (test lwwf=826) 0.3 mg/dL 0.1-1.2 BILIRUBIN DIRECT (BEAKER) (test sesk=997) 0.1 mg/dL 0.0-0.4 ALKALINE PHOSPHATASE (BEAKER) (test xufx=524) 158 U/L 30-115 AST (SGOT) (BEAKER) (test mgwi=988) 20 U/L 5-40 ALT (SGPT) (BEAKER) (test ezqw=308) 21 U/L 5-50 [id number] 00:41:00* Test Item Value Reference Range Comments LIPASE (BEAKER) (test olbj=078) 17 U/L 6-51 RAPID DRUG SCREEN, [id number] 00:40:00* Test Item Value Reference Range Comments BARBITURATE URINE (BEAKER) (test tmtb=621) Negative Negative BENZODIAZEPINE SCREEN URINE (BEAKER) (test ygyd=505) Negative Negative COCAINE (METAB.) SCREEN (BEAKER) (test onka=0998) Negative Negative OPIATE SCREEN URINE (BEAKER) (test fnbh=402) Negative Negative CANNABINOID SCREEN URINE (BEAKER) (test uggo=576) Negative Negative AMPH/METHAMPH SCREEN (BEAKER) (test gbey=9937) Negative Negative PHENCYCLIDINE SCREEN URINE (BEAKER) (test uzyk=033) Negative Negative DRUG CUTOFF CONC.Cocaine 300 ng/mL Cannabinoid 50 ng/mLBenzodiazepine 200 ng/mLBarbiturate 200 ng/ mLPhencyclidine 25 ng/mLOpiate 300 ng/mLMethadone 300 ng/mLAmphetamine/ 1000 ng/mL MethamphetamineThis assay provides an unconfirmed qualitative test result for the clinical management of patients in emergency situations. Chain of custody not maintained. Some over-the -counter medications, as well as adulterants, may cause inaccurate results. Clinical correlation should be applied. A more comprehensive drug screen or confirmation of a detected drug may be performed upon request.BASIC METABOLIC [id number] 00:39:00* Test Item Value Reference Range Comments SODIUM (BEAKER) (test yzhg=647) 142 meq/L 135-148 POTASSIUM (BEAKER) (test ctzy=339) 4.9 meq/L 3.6-5.5 CHLORIDE (BEAKER) (test vpxt=775) 106 meq/L 98-106 CO2 (BEAKER) (test qxuh=978) 21 meq/L 20-29 BLOOD UREA NITROGEN (BEAKER) (test gail=584) 48 mg/dL 10-26 CREATININE (BEAKER) (test cwwe=204) 6.60 mg/dL 0.50-1.20 GLUCOSE RANDOM (BEAKER) (test xhjj=700) 96 mg/dL 70-110 CALCIUM (BEAKER) (test lcfw=578) 8.5 mg/dL 8.5-10.5 EGFR (BEAKER) (test qdsk=9762) 9 mL/min/1.73 sq m ESTIMATED GFR IS NOT ACCURATE CREATININE CLEARANCE IN PREDICTING GLOMERULAR FILTRATION RATE. ESTIMATED GFR IS NOT APPLICABLE FOR DIALYSIS PATIENTS. CBC W/PLT COUNT & AUTO [id number] 23:42:00* Test Item Value Reference Range Comments WHITE BLOOD CELL COUNT (BEAKER) (test phfa=461) 10.6 K/ L 4.0-10.0 RED BLOOD CELL COUNT (BEAKER) (test kpvo=024) 4.04 M/ L 4.00-5.00 HEMOGLOBIN (BEAKER) (test sjzv=129) 11.6 GM/DL 12.0-15.0 HEMATOCRIT (BEAKER) (test vrkc=861) 36.2 % 36.0-45.0 MEAN CORPUSCULAR VOLUME (BEAKER) (test zuqj=608) 89.5 fL 82.0-99.0 MEAN CORPUSCULAR HEMOGLOBIN (BEAKER) (test kciu=215) 28.6 pg 27.0-33.0 MEAN CORPUSCULAR HEMOGLOBIN CONC (BEAKER) (test mhqx=993) 32.0 GM/DL 32.0- 36.0 RED CELL DISTRIBUTION WIDTH (BEAKER) (test brbe=351) 17.4 % 10.3-14.2 PLATELET COUNT (BEAKER) (test dqhm=623) 296 K/CU MM 150-430 MEAN PLATELET VOLUME (BEAKER) (test oxyw=518) 7.3 fL 6.5-10.5 NEUTROPHILS RELATIVE PERCENT (BEAKER) (test gmjd=924) 75 % LYMPHOCYTES RELATIVE PERCENT (BEAKER) (test wpbx=151) 15 % MONOCYTES RELATIVE PERCENT (BEAKER) (test ianp=204) 3 % EOSINOPHILS RELATIVE PERCENT (BEAKER) (test vlhp=922) 5 % BASOPHILS RELATIVE PERCENT (BEAKER) (test szcq=988) 1 % NEUTROPHILS ABSOLUTE COUNT (BEAKER) (test ldou=852) 8.10 K/ L 1.80-8.00 LYMPHOCYTES ABSOLUTE COUNT (BEAKER) (test wgou=729) 1.60 K/ L 1.48-4.50 MONOCYTES ABSOLUTE COUNT (BEAKER) (test ozwz=984) 0.30 K/ L 0.00-1.30 EOSINOPHILS ABSOLUTE COUNT (BEAKER) (test rnbo=058) 0.50 K/ L 0.00-0.50 BASOPHILS ABSOLUTE COUNT (BEAKER) (test kvck=682) 0.10 K/ L 0.00-0.20 BLOOD [id number] 04:00:00* Test Item Value Reference Range Comments CULTURE (BEAKER) (test hgql=2486) No growth in 5 days HEPATITIS B SURFACE [id number] 22:48:00* Test Item Value Reference Range Comments HEPATITIS B SURFACE ANTIBODY (BEAKER) (test ziwl=037) 6022.5 mIU/mL <8.0 POCT-GLUCOSE [id number] 12:11:00* Test Item Value Reference Range Comments POC-GLUCOSE METER (BEAKER) (test mphd=8962) 136 mg/dL 70-110 TESTED AT [facility] [address] [facility] [id number] BASIC METABOLIC [id number] 11:02:00* Test Item Value Reference Range Comments SODIUM (BEAKER) (test zpdl=541) 141 mmol/L 135-148 POTASSIUM (BEAKER) (test raat=472) 3.6 mmol/L 3.6-5.5 CHLORIDE (BEAKER) (test dcox=732) 102 meq/L 98-106 CO2 (BEAKER) (test uyue=210) 40 meq/L 20-29 BLOOD UREA NITROGEN (BEAKER) (test eckr=747) 36 mg/dL 10-26 CREATININE (BEAKER) (test xqsx=641) 5.30 mg/dL 0.50-1.20 GLUCOSE RANDOM (BEAKER) (test zean=352) 134 mg/dL 70-110 CALCIUM (BEAKER) (test yude=072) 8.9 mg/dL 8.5-10.5 EGFR (BEAKER) (test ioeu=1893) 12 mL/min/1.73 sq m ESTIMATED GFR IS NOT ACCURATE CREATININE CLEARANCE IN PREDICTING GLOMERULAR FILTRATION RATE. ESTIMATED GFR IS NOT APPLICABLE FOR DIALYSIS PATIENTS. HEPATITIS B SURFACE [id number] 10:13:00* Test Item Value Reference Range Comments HEPATITIS B SURFACE ANTIGEN (2) (BEAKER) (test yrhw=3475) Nonreactive Nonreactive CBC W/PLT COUNT & AUTO [id number] 09:32:00* Test Item Value Reference Range Comments WHITE BLOOD CELL COUNT (BEAKER) (test gdbc=495) 7.8 K/ L 4.0-10.0 RED BLOOD CELL COUNT (BEAKER) (test gtyb=883) 3.93 M/ L 4.00-5.00 HEMOGLOBIN (BEAKER) (test gosa=604) 10.9 GM/DL 12.0-15.0 HEMATOCRIT (BEAKER) (test dlbv=704) 33.6 % 36.0-45.0 MEAN CORPUSCULAR VOLUME (BEAKER) (test ugmj=594) 85.5 fL 82.0-99.0 MEAN CORPUSCULAR HEMOGLOBIN (BEAKER) (test wnky=829) 27.7 pg 27.0-33.0 MEAN CORPUSCULAR HEMOGLOBIN CONC (BEAKER) (test akro=856) 32.5 GM/DL 32.0- 36.0 RED CELL DISTRIBUTION WIDTH (BEAKER) (test tylk=610) 16.4 % 10.3-14.2 PLATELET COUNT (BEAKER) (test rcld=207) 292 K/CU MM 150-430 MEAN PLATELET VOLUME (BEAKER) (test bbdp=118) 7.5 fL 6.5-10.5 NUCLEATED RED BLOOD CELLS (BEAKER) (test pstz=715) 0 /100 WBC 0-0 NEUTROPHILS RELATIVE PERCENT (BEAKER) (test ddlv=539) 71 % LYMPHOCYTES RELATIVE PERCENT (BEAKER) (test igvl=014) 18 % MONOCYTES RELATIVE PERCENT (BEAKER) (test icki=118) 10 % EOSINOPHILS RELATIVE PERCENT (BEAKER) (test uvut=304) 2 % BASOPHILS RELATIVE PERCENT (BEAKER) (test vprb=304) 0 % NEUTROPHILS ABSOLUTE COUNT (BEAKER) (test lctw=920) 5.50 K/ L 1.80-8.00 LYMPHOCYTES ABSOLUTE COUNT (BEAKER) (test mhju=722) 1.40 K/ L 1.48-4.50 MONOCYTES ABSOLUTE COUNT (BEAKER) (test lgmb=062) 0.70 K/ L 0.00-1.30 EOSINOPHILS ABSOLUTE COUNT (BEAKER) (test uvkt=158) 0.10 K/ L 0.00-0.50 BASOPHILS ABSOLUTE COUNT (BEAKER) (test fvab=139) 0.00 K/ L 0.00-0.20 POCT-GLUCOSE [id number] 07:25:00* Test Item Value Reference Range Comments POC-GLUCOSE METER (BEAKER) (test dftu=0502) 175 mg/dL 70-110 TESTED AT [facility] [address] [place] [address] POCT-GLUCOSE [id number] 00:17:00* Test Item Value Reference Range Comments POC-GLUCOSE METER (BEAKER) (test eiws=6903) 86 mg/dL 70-110 TESTED AT [facility] [address] [facility] [address] POCT-GLUCOSE [id number] 22:21:00* Test Item Value Reference Range Comments POC-GLUCOSE METER (BEAKER) (test tfgq=3133) 55 mg/dL 70-110 TESTED AT [facility] [address] [facility] [address] POCT-GLUCOSE [id number] 20:58:00* Test Item Value Reference Range Comments POC-GLUCOSE METER (BEAKER) (test mcaz=7211) 59 mg/dL 70-110 TESTED AT [facility] [address] [facility] [address] POCT-GLUCOSE [id number] 19:17:00* Test Item Value Reference Range Comments POC-GLUCOSE METER (BEAKER) (test lflv=5484) 231 mg/dL 70-110 TESTED AT [address] [address] POCT-GLUCOSE [id number] 12:09:00* Test Item Value Reference Range Comments POC-GLUCOSE METER (BEAKER) (test bfnf=1601) 105 mg/dL 70-110 TESTED AT [address] [address] POCT-GLUCOSE [id number] 09:11:00* Test Item Value Reference Range Comments POC-GLUCOSE METER (BEAKER) (test yikt=1839) 230 mg/dL 70-110 TESTED AT [facility] [address] [facility] [address] POCT-GLUCOSE [id number] 05:59:00* Test Item Value Reference Range Comments POC-GLUCOSE METER (BEAKER) (test izkw=6802) 225 mg/dL 70-110 TESTED AT [address] [address] POCT-GLUCOSE [id number] 21:06:00* Test Item Value Reference Range Comments POC-GLUCOSE METER (BEAKER) (test eobc=9209) 241 mg/dL 70-110 TESTED AT [address] [address] POCT-GLUCOSE [id number] 18:21:00* Test Item Value Reference Range Comments POC-GLUCOSE METER (BEAKER) (test pkdb=6887) 200 mg/dL 70-110 TESTED AT [facility] [address] [facility] [address] POCT-GLUCOSE [id number] 16:48:00* Test Item Value Reference Range Comments POC-GLUCOSE METER (BEAKER) (test pyzl=2718) 62 mg/dL 70-110 Notified RN or MD Patient refused repeat test/TESTED AT [facility] [address] [place] [address] POCT-GLUCOSE [id number] 12:09:00* Test Item Value Reference Range Comments POC-GLUCOSE METER (BEAKER) (test crxu=4169) 158 mg/dL 70-110 TESTED AT [facility] [address] [place] [address] COMPREHENSIVE METABOLIC [id number] 07:23:00* Test Item Value Reference Range Comments TOTAL PROTEIN (BEAKER) (test fxax=166) 5.9 gm/dL 6.0-8.5 Specimen slightly hemolyzed ALBUMIN (BEAKER) (test ctli=4279) 2.7 g/dL 3.5-5.0 Specimen slightly hemolyzed ALKALINE PHOSPHATASE (BEAKER) (test pshh=980) 108 U/L 30-115 BILIRUBIN TOTAL (BEAKER) (test lvma=174) 0.3 mg/dL 0.1-1.2 Specimen slightly hemolyzed SODIUM (BEAKER) (test fmtz=927) 139 meq/L 135-148 POTASSIUM (BEAKER) (test sszi=636) 4.0 meq/L 3.6-5.5 Specimen slightly hemolyzed CHLORIDE (BEAKER) (test tgcc=416) 102 meq/L 98-106 CO2 (BEAKER) (test igiy=159) 23 meq/L 20-29 BLOOD UREA NITROGEN (BEAKER) (test towj=614) 20 mg/dL 10-26 CREATININE (BEAKER) (test lhat=536) 5.00 mg/dL 0.50-1.20 Specimen slightly hemolyzed GLUCOSE RANDOM (BEAKER) (test oyun=422) 229 mg/dL 70-110 CALCIUM (BEAKER) (test wtdu=779) 8.1 mg/dL 8.5-10.5 AST (SGOT) (BEAKER) (test vufx=162) 13 U/L 5-40 Specimen slightly hemolyzed ALT (SGPT) (BEAKER) (test tvxn=756) 10 U/L 5-50 Specimen slightly hemolyzed EGFR (BEAKER) (test fclt=0714) 13 mL/min/1.73 sq m ESTIMATED GFR IS NOT ACCURATE CREATININE CLEARANCE IN PREDICTING GLOMERULAR FILTRATION RATE. ESTIMATED GFR IS NOT APPLICABLE FOR DIALYSIS PATIENTS. [id number] 07:09:00* Test Item Value Reference Range Comments MAGNESIUM (BEAKER) (test actz=997) 2.3 mg/dL 1.5-3.0 Specimen slightly hemolyzed CBC W/PLT COUNT & AUTO [id number] 07:05:00* Test Item Value Reference Range Comments WHITE BLOOD CELL COUNT (BEAKER) (test khvb=175) 7.1 K/ L 4.0-10.0 RED BLOOD CELL COUNT (BEAKER) (test xoeu=177) 3.57 M/ L 4.00-5.00 HEMOGLOBIN (BEAKER) (test cfkc=541) 9.9 GM/DL 12.0-15.0 HEMATOCRIT (BEAKER) (test qhgt=586) 30.9 % 36.0-45.0 MEAN CORPUSCULAR VOLUME (BEAKER) (test gphw=612) 86.5 fL 82.0-99.0 MEAN CORPUSCULAR HEMOGLOBIN (BEAKER) (test ltfl=459) 27.7 pg 27.0-33.0 MEAN CORPUSCULAR HEMOGLOBIN CONC (BEAKER) (test embj=516) 32.1 GM/DL 32.0- 36.0 RED CELL DISTRIBUTION WIDTH (BEAKER) (test ophq=762) 16.3 % 10.3-14.2 PLATELET COUNT (BEAKER) (test jzif=168) 320 K/CU MM 150-430 MEAN PLATELET VOLUME (BEAKER) (test hmxh=007) 7.4 fL 6.5-10.5 NUCLEATED RED BLOOD CELLS (BEAKER) (test kfzt=765) 0 /100 WBC 0-0 NEUTROPHILS RELATIVE PERCENT (BEAKER) (test fmww=482) 53 % LYMPHOCYTES RELATIVE PERCENT (BEAKER) (test uine=907) 35 % MONOCYTES RELATIVE PERCENT (BEAKER) (test cfme=091) 7 % EOSINOPHILS RELATIVE PERCENT (BEAKER) (test lbiv=002) 4 % BASOPHILS RELATIVE PERCENT (BEAKER) (test ofhr=568) 0 % NEUTROPHILS ABSOLUTE COUNT (BEAKER) (test tjtp=363) 3.80 K/ L 1.80-8.00 LYMPHOCYTES ABSOLUTE COUNT (BEAKER) (test ecah=041) 2.50 K/ L 1.48-4.50 MONOCYTES ABSOLUTE COUNT (BEAKER) (test mtis=415) 0.50 K/ L 0.00-1.30 EOSINOPHILS ABSOLUTE COUNT (BEAKER) (test oxmp=186) 0.30 K/ L 0.00-0.50 BASOPHILS ABSOLUTE COUNT (BEAKER) (test bjez=687) 0.00 K/ L 0.00-0.20 POCT-GLUCOSE [id number] 06:30:00* Test Item Value Reference Range Comments POC-GLUCOSE METER (BEAKER) (test vtal=5226) 265 mg/dL 70-110 TESTED AT [address] [address] POCT-GLUCOSE [id number] 21:12:00* Test Item Value Reference Range Comments POC-GLUCOSE METER ([facility]) (test exog=4470) 216 mg/dL 70-110 TESTED AT [address] [address] POCT-GLUCOSE [id number] 12:13:00* Test Item Value Reference Range Comments POC-GLUCOSE METER ([facility]) (test efiw=0119) 329 mg/dL 70-110 Notified ALICJA BECKFORD/ TESTED AT [address] [address] COMPREHENSIVE METABOLIC [id number] 06:56:00* Test Item Value Reference Range Comments TOTAL PROTEIN (BEAKER) (test xcjk=813) 6.5 gm/dL 6.0-8.5 ALBUMIN (BEAKER) (test bffe=6585) 3.0 g/dL 3.5-5.0 ALKALINE PHOSPHATASE (BEAKER) (test ephk=234) 99 U/L 30-115 BILIRUBIN TOTAL (BEAKER) (test zrvn=417) 0.2 mg/dL 0.1-1.2 SODIUM (BEAKER) (test knwi=073) 141 meq/L 135-148 POTASSIUM (BEAKER) (test mrwd=084) 4.2 meq/L 3.6-5.5 CHLORIDE (BEAKER) (test nsim=808) 102 meq/L 98-106 CO2 (BEAKER) (test fbhg=676) 23 meq/L 20-29 BLOOD UREA NITROGEN (BEAKER) (test iiab=116) 25 mg/dL 10-26 CREATININE (BEAKER) (test bpxe=960) 4.80 mg/dL 0.50-1.20 GLUCOSE RANDOM (BEAKER) (test wrkd=768) 151 mg/dL 70-110 CALCIUM (BEAKER) (test rrfq=660) 8.4 mg/dL 8.5-10.5 AST (SGOT) (BEAKER) (test bhdh=883) 11 U/L 5-40 ALT (SGPT) (BEAKER) (test bhar=453) 11 U/L 5-50 EGFR (BEAKER) (test dnft=8756) 13 mL/min/1.73 sq m ESTIMATED GFR IS NOT ACCURATE CREATININE CLEARANCE IN PREDICTING GLOMERULAR FILTRATION RATE. ESTIMATED GFR IS NOT APPLICABLE FOR DIALYSIS PATIENTS. CBC W/PLT COUNT & AUTO [id number] 06:28:00* Test Item Value Reference Range Comments WHITE BLOOD CELL COUNT (BEAKER) (test qmkd=006) 7.4 K/ L 4.0-10.0 RED BLOOD CELL COUNT (BEAKER) (test dkkm=431) 4.31 M/ L 4.00-5.00 HEMOGLOBIN (BEAKER) (test qsru=704) 11.8 GM/DL 12.0-15.0 HEMATOCRIT (BEAKER) (test hxrs=434) 37.3 % 36.0-45.0 MEAN CORPUSCULAR VOLUME (BEAKER) (test yore=791) 86.6 fL 82.0-99.0 MEAN CORPUSCULAR HEMOGLOBIN (BEAKER) (test bnvk=645) 27.4 pg 27.0-33.0 MEAN CORPUSCULAR HEMOGLOBIN CONC (BEAKER) (test qtqp=129) 31.7 GM/DL 32.0- 36.0 RED CELL DISTRIBUTION WIDTH (BEAKER) (test skab=079) 16.1 % 10.3-14.2 PLATELET COUNT (BEAKER) (test wuvl=820) 379 K/CU MM 150-430 MEAN PLATELET VOLUME (BEAKER) (test ejsh=788) 7.1 fL 6.5-10.5 NUCLEATED RED BLOOD CELLS (BEAKER) (test agfd=335) 0 /100 WBC 0-0 NEUTROPHILS RELATIVE PERCENT (BEAKER) (test nicx=999) 54 % LYMPHOCYTES RELATIVE PERCENT (BEAKER) (test bedo=328) 38 % MONOCYTES RELATIVE PERCENT (BEAKER) (test tafs=917) 7 % EOSINOPHILS RELATIVE PERCENT (BEAKER) (test madx=128) 1 % BASOPHILS RELATIVE PERCENT (BEAKER) (test gito=320) 1 % NEUTROPHILS ABSOLUTE COUNT (BEAKER) (test yuyy=512) 4.00 K/ L 1.80-8.00 LYMPHOCYTES ABSOLUTE COUNT (BEAKER) (test dbql=641) 2.80 K/ L 1.48-4.50 MONOCYTES ABSOLUTE COUNT (BEAKER) (test wmzb=624) 0.50 K/ L 0.00-1.30 EOSINOPHILS ABSOLUTE COUNT (BEAKER) (test zjjk=090) 0.10 K/ L 0.00-0.50 BASOPHILS ABSOLUTE COUNT (BEAKER) (test qwvp=894) 0.10 K/ L 0.00-0.20 POCT-GLUCOSE [id number] 06:10:00* Test Item Value Reference Range Comments POC-GLUCOSE METER (BERACHEL) (test bvev=3291) 148 mg/dL 70-110 TESTED AT [place] [address] POCT-GLUCOSE [id number] 20:46:00* Test Item Value Reference Range Comments POC-GLUCOSE METER (BERACHEL) (test ptgr=3457) 176 mg/dL 70-110 TESTED AT [place] [address] HEPATITIS B SURFACE [id number] 19:10:00* Test Item Value Reference Range Comments HEPATITIS B SURFACE ANTIBODY (BERACHEL) (test pnbi=221) 6736.4 mIU/mL <8.0 POCT-GLUCOSE [id number] 17:12:00* Test Item Value Reference Range Comments POC-GLUCOSE METER (RACHEL) (test vskx=7547) 84 mg/dL 70-110 TESTED AT [place] [address] HEPATITIS B SURFACE [id number] 13:51:00* Test Item Value Reference Range Comments HEPATITIS B SURFACE ANTIGEN (2) (BERACHEL) (test ipfx=3451) Nonreactive Nonreactive POCT-GLUCOSE [id number] 11:22:00* Test Item Value Reference Range Comments POC-GLUCOSE METER (BEAKER) (test wvpz=0924) 319 mg/dL 70-110 Notified ALICJA BECKFORD/ TESTED AT [facility] [address] [facility] [address] COMPREHENSIVE METABOLIC [id number] 07:16:00* Test Item Value Reference Range Comments TOTAL PROTEIN (BEAKER) (test euve=946) 5.6 gm/dL 6.0-8.5 ALBUMIN (BEAKER) (test fqvm=7074) 2.5 g/dL 3.5-5.0 ALKALINE PHOSPHATASE (BEAKER) (test hehq=944) 94 U/L 30-115 BILIRUBIN TOTAL (BEAKER) (test sztb=910) < mg/dL 0.1-1.2 SODIUM (BEAKER) (test uyyu=920) 140 meq/L 135-148 POTASSIUM (BEAKER) (test rjny=209) 3.8 meq/L 3.6-5.5 CHLORIDE (BEAKER) (test ojyp=724) 104 meq/L 98-106 CO2 (BEAKER) (test jism=819) 20 meq/L 20-29 BLOOD UREA NITROGEN (BEAKER) (test mdhi=026) 43 mg/dL 10-26 CREATININE (BEAKER) (test hbqp=948) 5.80 mg/dL 0.50-1.20 GLUCOSE RANDOM (BEAKER) (test motr=171) 277 mg/dL 70-110 CALCIUM (BEAKER) (test ryzj=888) 7.6 mg/dL 8.5-10.5 AST (SGOT) (BEAKER) (test wqam=048) 9 U/L 5-40 ALT (SGPT) (BEAKER) (test hpvz=392) 11 U/L 5-50 EGFR (BEAKER) (test hszq=4158) 11 mL/min/1.73 sq m ESTIMATED GFR IS NOT ACCURATE CREATININE CLEARANCE IN PREDICTING GLOMERULAR FILTRATION RATE. ESTIMATED GFR IS NOT APPLICABLE FOR DIALYSIS PATIENTS. CBC W/PLT COUNT & AUTO [id number] 06:54:00* Test Item Value Reference Range Comments WHITE BLOOD CELL COUNT (BEAKER) (test clve=216) 8.1 K/ L 4.0-10.0 RED BLOOD CELL COUNT (BEAKER) (test fnxg=897) 3.71 M/ L 4.00-5.00 HEMOGLOBIN (BEAKER) (test yepc=945) 10.3 GM/DL 12.0-15.0 HEMATOCRIT (BEAKER) (test mgvw=332) 31.8 % 36.0-45.0 MEAN CORPUSCULAR VOLUME (BEAKER) (test biku=777) 85.9 fL 82.0-99.0 MEAN CORPUSCULAR HEMOGLOBIN (BEAKER) (test zqqx=010) 27.8 pg 27.0-33.0 MEAN CORPUSCULAR HEMOGLOBIN CONC (BEAKER) (test skrl=945) 32.3 GM/DL 32.0- 36.0 RED CELL DISTRIBUTION WIDTH (BEAKER) (test salo=261) 15.9 % 10.3-14.2 PLATELET COUNT (BEAKER) (test jukg=910) 346 K/CU MM 150-430 MEAN PLATELET VOLUME (BEAKER) (test yvws=577) 6.8 fL 6.5-10.5 NUCLEATED RED BLOOD CELLS (BEAKER) (test mrup=652) 0 /100 WBC 0-0 NEUTROPHILS RELATIVE PERCENT (BEAKER) (test pvth=347) 72 % LYMPHOCYTES RELATIVE PERCENT (BEAKER) (test cswe=327) 20 % MONOCYTES RELATIVE PERCENT (BEAKER) (test rmaj=444) 7 % EOSINOPHILS RELATIVE PERCENT (BEAKER) (test hbbc=897) 0 % BASOPHILS RELATIVE PERCENT (BEAKER) (test jslv=740) 0 % NEUTROPHILS ABSOLUTE COUNT (BEAKER) (test vply=005) 5.90 K/ L 1.80-8.00 LYMPHOCYTES ABSOLUTE COUNT (BEAKER) (test sguv=889) 1.60 K/ L 1.48-4.50 MONOCYTES ABSOLUTE COUNT (BEAKER) (test gdmf=988) 0.60 K/ L 0.00-1.30 EOSINOPHILS ABSOLUTE COUNT (BEAKER) (test tsvi=683) 0.00 K/ L 0.00-0.50 BASOPHILS ABSOLUTE COUNT (BEAKER) (test bqzg=863) 0.00 K/ L 0.00-0.20 POCT-GLUCOSE [id number] 05:56:00* Test Item Value Reference Range Comments POC-GLUCOSE METER (BEAKER) (test bfqv=1341) 250 mg/dL 70-110 TESTED AT [facility] [address] [place] [address] POCT-GLUCOSE [id number] 21:10:00* Test Item Value Reference Range Comments POC-GLUCOSE METER (BEAKER) (test wceg=2928) 225 mg/dL 70-110 TESTED AT [place] [address]248 POCT-GLUCOSE [id number] 16:33:00* Test Item Value Reference Range Comments POC-GLUCOSE METER (BEAKER) (test rqzn=6346) 375 mg/dL 70-110 TESTED AT [place] [address]248 POCT-GLUCOSE [id number] 11:36:00* Test Item Value Reference Range Comments POC-GLUCOSE METER (BEAKER) (test bzvd=7008) 353 mg/dL 70-110 TESTED AT [place] [address]248 POCT-GLUCOSE [id number] 21:22:00* Test Item Value Reference Range Comments POC-GLUCOSE METER (BEAKER) (test nptc=7569) 188 mg/dL 70-110 TESTED AT [place] [address]248 POCT-GLUCOSE [id number] 17:39:00* Test Item Value Reference Range Comments POC-GLUCOSE METER (BEAKER) (test aanw=6875) 74 mg/dL 70-110 TESTED AT [place] 8[address]248 POCT-GLUCOSE [id number] 12:29:00* Test Item Value Reference Range Comments POC-GLUCOSE METER (BEAKER) (test fdwf=2548) 197 mg/dL 70-110 TESTED AT [place] 8[address]248 POCT-GLUCOSE [id number] 12:29:00* Test Item Value Reference Range Comments POC-GLUCOSE METER (BEAKER) (test xddk=4637) 201 mg/dL 70-110 TESTED AT [place] [address]248 COMPREHENSIVE METABOLIC [id number] 06:05:00* Test Item Value Reference Range Comments TOTAL PROTEIN (BEAKER) (test fzqs=914) 4.6 gm/dL 6.0-8.5 ALBUMIN (BEAKER) (test vgwn=1601) 1.8 g/dL 3.5-5.0 ALKALINE PHOSPHATASE (BEAKER) (test cvyx=339) 87 U/L 30-115 BILIRUBIN TOTAL (BEAKER) (test girg=265) < mg/dL 0.1-1.2 SODIUM (BEAKER) (test mrvm=351) 141 meq/L 135-148 POTASSIUM (BEAKER) (test zwzf=681) 4.3 meq/L 3.6-5.5 CHLORIDE (BEAKER) (test sdzi=700) 108 meq/L 98-106 CO2 (BEAKER) (test jzco=973) 24 meq/L 20-29 BLOOD UREA NITROGEN (BEAKER) (test rssf=798) 21 mg/dL 10-26 CREATININE (BEAKER) (test wzbt=525) 3.40 mg/dL 0.50-1.20 GLUCOSE RANDOM (BEAKER) (test omax=183) 173 mg/dL 70-110 CALCIUM (BEAKER) (test tyxh=607) 7.3 mg/dL 8.5-10.5 AST (SGOT) (BEAKER) (test nomn=831) 12 U/L 5-40 ALT (SGPT) (BEAKER) (test thzf=522) 14 U/L 5-50 EGFR (BEAKER) (test axbe=5951) 20 mL/min/1.73 sq m ESTIMATED GFR IS NOT ACCURATE CREATININE CLEARANCE IN PREDICTING GLOMERULAR FILTRATION RATE. ESTIMATED GFR IS NOT APPLICABLE FOR DIALYSIS PATIENTS. POCT-GLUCOSE [id number] 05:41:00* Test Item Value Reference Range Comments POC-GLUCOSE METER (BEAKER) (test gdho=5206) 163 mg/dL 70-110 TESTED AT [address] [address] CBC W/PLT COUNT & AUTO [id number] 05:38:00* Test Item Value Reference Range Comments WHITE BLOOD CELL COUNT (BEAKER) (test ssnt=366) 8.1 K/ L 4.0-10.0 RED BLOOD CELL COUNT (BEAKER) (test lylj=221) 3.05 M/ L 4.00-5.00 HEMOGLOBIN (BEAKER) (test btpg=110) 8.6 GM/DL 12.0-15.0 HEMATOCRIT (BEAKER) (test uiza=615) 26.5 % 36.0-45.0 MEAN CORPUSCULAR VOLUME (BEAKER) (test suxi=666) 87.0 fL 82.0-99.0 MEAN CORPUSCULAR HEMOGLOBIN (BEAKER) (test roro=014) 28.3 pg 27.0-33.0 MEAN CORPUSCULAR HEMOGLOBIN CONC (BEAKER) (test fzmy=601) 32.6 GM/DL 32.0- 36.0 RED CELL DISTRIBUTION WIDTH (BEAKER) (test javb=371) 17.1 % 10.3-14.2 PLATELET COUNT (BEAKER) (test luyv=069) 184 K/CU MM 150-430 MEAN PLATELET VOLUME (BEAKER) (test itls=923) 7.4 fL 6.5-10.5 NUCLEATED RED BLOOD CELLS (BEAKER) (test cfzv=924) 0 /100 WBC 0-0 NEUTROPHILS RELATIVE PERCENT (BEAKER) (test uago=061) 64 % LYMPHOCYTES RELATIVE PERCENT (BEAKER) (test nvfj=771) 22 % MONOCYTES RELATIVE PERCENT (BEAKER) (test vziv=703) 8 % EOSINOPHILS RELATIVE PERCENT (BEAKER) (test vxdx=134) 6 % BASOPHILS RELATIVE PERCENT (BEAKER) (test boti=836) 0 % NEUTROPHILS ABSOLUTE COUNT (BEAKER) (test fltj=459) 5.20 K/ L 1.80-8.00 LYMPHOCYTES ABSOLUTE COUNT (BEAKER) (test lmzj=774) 1.80 K/ L 1.48-4.50 MONOCYTES ABSOLUTE COUNT (BEAKER) (test mqxx=190) 0.60 K/ L 0.00-1.30 EOSINOPHILS ABSOLUTE COUNT (BEAKER) (test omqi=953) 0.50 K/ L 0.00-0.50 BASOPHILS ABSOLUTE COUNT (BEAKER) (test dnbf=290) 0.00 K/ L 0.00-0.20 POCT-GLUCOSE [id number] 20:41:00* Test Item Value Reference Range Comments POC-GLUCOSE METER (BEAKER) (test pxrf=7422) 214 mg/dL 70-110 TESTED AT [address] [address] POCT-GLUCOSE [id number] 16:10:00* Test Item Value Reference Range Comments POC-GLUCOSE METER (BEAKER) (test rwnw=1019) 73 mg/dL 70-110 TESTED AT [address] [address] POCT-GLUCOSE [id number] 12:52:00* Test Item Value Reference Range Comments POC-GLUCOSE METER (BEAKER) (test mbco=0433) 99 mg/dL 70-110 TESTED AT [facility] [address] [facility] [address] POCT-GLUCOSE [id number] 11:58:00* Test Item Value Reference Range Comments POC-GLUCOSE METER (BEAKER) (test mhqv=6165) 37 mg/dL 70-110 TESTED AT [facility] [address] [place] [address] POCT-GLUCOSE [id number] 07:33:00* Test Item Value Reference Range Comments POC-GLUCOSE METER (BEAKER) (test dchz=3669) 131 mg/dL 70-110 TESTED AT [address] [address] POCT-GLUCOSE [id number] 06:21:00* Test Item Value Reference Range Comments POC-GLUCOSE METER (BEAKER) (test obuu=0794) 61 mg/dL 70-110 TESTED AT [address] [address] COMPREHENSIVE METABOLIC [id number] 05:50:00* Test Item Value Reference Range Comments TOTAL PROTEIN (BEAKER) (test qopm=438) 4.0 gm/dL 6.0-8.5 ALBUMIN (BEAKER) (test piof=3499) 1.8 g/dL 3.5-5.0 ALKALINE PHOSPHATASE (BEAKER) (test ufhh=680) 80 U/L 30-115 BILIRUBIN TOTAL (BEAKER) (test cscc=081) < mg/dL 0.1-1.2 SODIUM (BEAKER) (test uvgk=113) 142 meq/L 135-148 POTASSIUM (BEAKER) (test nkzy=810) 3.9 meq/L 3.6-5.5 CHLORIDE (BEAKER) (test imra=255) 112 meq/L 98-106 CO2 (BEAKER) (test mplq=415) 22 meq/L 20-29 BLOOD UREA NITROGEN (BEAKER) (test tqeb=033) 24 mg/dL 10-26 CREATININE (BEAKER) (test gypp=746) 3.60 mg/dL 0.50-1.20 GLUCOSE RANDOM (BEAKER) (test wjww=544) 56 mg/dL 70-110 CALCIUM (BEAKER) (test qhzb=947) 7.3 mg/dL 8.5-10.5 AST (SGOT) (BEAKER) (test vmod=580) 12 U/L 5-40 ALT (SGPT) (BEAKER) (test eczk=424) 12 U/L 5-50 EGFR (BEAKER) (test mgss=9280) 19 mL/min/1.73 sq m ESTIMATED GFR IS NOT ACCURATE CREATININE CLEARANCE IN PREDICTING GLOMERULAR FILTRATION RATE. ESTIMATED GFR IS NOT APPLICABLE FOR DIALYSIS PATIENTS. CBC W/PLT COUNT & AUTO [id number] 05:21:00* Test Item Value Reference Range Comments WHITE BLOOD CELL COUNT (BEAKER) (test jqxy=004) 8.0 K/ L 4.0-10.0 RED BLOOD CELL COUNT (BEAKER) (test iayr=993) 3.18 M/ L 4.00-5.00 HEMOGLOBIN (BEAKER) (test joip=876) 8.9 GM/DL 12.0-15.0 HEMATOCRIT (BEAKER) (test bqdh=133) 27.7 % 36.0-45.0 MEAN CORPUSCULAR VOLUME (BEAKER) (test haqu=890) 87.2 fL 82.0-99.0 MEAN CORPUSCULAR HEMOGLOBIN (BEAKER) (test bwqn=040) 28.1 pg 27.0-33.0 MEAN CORPUSCULAR HEMOGLOBIN CONC (BEAKER) (test uuwl=299) 32.2 GM/DL 32.0- 36.0 RED CELL DISTRIBUTION WIDTH (BEAKER) (test afbg=600) 17.0 % 10.3-14.2 PLATELET COUNT (BEAKER) (test ijkg=820) 197 K/CU MM 150-430 MEAN PLATELET VOLUME (BEAKER) (test gcvs=409) 7.2 fL 6.5-10.5 NUCLEATED RED BLOOD CELLS (BEAKER) (test bhkx=212) 0 /100 WBC 0-0 NEUTROPHILS RELATIVE PERCENT (BEAKER) (test hewe=466) 63 % LYMPHOCYTES RELATIVE PERCENT (BEAKER) (test gurt=995) 25 % MONOCYTES RELATIVE PERCENT (BEAKER) (test dqdy=389) 6 % EOSINOPHILS RELATIVE PERCENT (BEAKER) (test smbg=391) 6 % BASOPHILS RELATIVE PERCENT (BEAKER) (test hhns=388) 0 % NEUTROPHILS ABSOLUTE COUNT (BEAKER) (test yhxw=422) 5.00 K/ L 1.80-8.00 LYMPHOCYTES ABSOLUTE COUNT (BEAKER) (test youk=452) 2.00 K/ L 1.48-4.50 MONOCYTES ABSOLUTE COUNT (BEAKER) (test cxad=323) 0.50 K/ L 0.00-1.30 EOSINOPHILS ABSOLUTE COUNT (BEAKER) (test cslj=961) 0.50 K/ L 0.00-0.50 BASOPHILS ABSOLUTE COUNT (BEAKER) (test dirb=638) 0.00 K/ L 0.00-0.20 POCT-GLUCOSE [id number] 20:59:00* Test Item Value Reference Range Comments POC-GLUCOSE METER (BEAKER) (test votj=3185) 79 mg/dL 70-110 TESTED AT [address] [address] POCT-GLUCOSE [id number] 17:30:00* Test Item Value Reference Range Comments POC-GLUCOSE METER (AKER) (test kjjf=5328) 162 mg/dL 70-110 TESTED AT [address] [address] POCT-GLUCOSE [id number] 12:58:00* Test Item Value Reference Range Comments POC-GLUCOSE METER (AKER) (test gsqz=6687) 198 mg/dL 70-110 TESTED AT [address] [address] COMPREHENSIVE METABOLIC [id number] 06:31:00* Test Item Value Reference Range Comments TOTAL PROTEIN (BEAKER) (test xugz=200) 4.2 gm/dL 6.0-8.5 ALBUMIN (BEAKER) (test gite=9673) 1.9 g/dL 3.5-5.0 ALKALINE PHOSPHATASE (BEAKER) (test ctwn=027) 82 U/L 30-115 BILIRUBIN TOTAL (BEAKER) (test wgcn=339) < mg/dL 0.1-1.2 SODIUM (BEAKER) (test rzip=545) 142 meq/L 135-148 POTASSIUM (BEAKER) (test jcpb=656) 3.7 meq/L 3.6-5.5 CHLORIDE (BEAKER) (test uqrc=431) 110 meq/L 98-106 CO2 (BEAKER) (test vwkh=811) 24 meq/L 20-29 BLOOD UREA NITROGEN (BEAKER) (test deld=903) 18 mg/dL 10-26 CREATININE (BEAKER) (test ledr=596) 2.90 mg/dL 0.50-1.20 GLUCOSE RANDOM (BEAKER) (test orbf=072) 129 mg/dL 70-110 CALCIUM (BEAKER) (test xbcu=319) 7.1 mg/dL 8.5-10.5 AST (SGOT) (BEAKER) (test xrzh=319) 11 U/L 5-40 ALT (SGPT) (BEAKER) (test zoib=983) 13 U/L 5-50 EGFR (BEAKER) (test lxiq=9449) 24 mL/min/1.73 sq m ESTIMATED GFR IS NOT ACCURATE CREATININE CLEARANCE IN PREDICTING GLOMERULAR FILTRATION RATE. ESTIMATED GFR IS NOT APPLICABLE FOR DIALYSIS PATIENTS. CBC W/PLT COUNT & AUTO [id number] 06:20:00* Test Item Value Reference Range Comments WHITE BLOOD CELL COUNT (BEAKER) (test oofq=223) 10.3 K/ L 4.0-10.0 RED BLOOD CELL COUNT (BEAKER) (test rnnx=296) 3.27 M/ L 4.00-5.00 HEMOGLOBIN (BEAKER) (test dmlg=383) 9.2 GM/DL 12.0-15.0 HEMATOCRIT (BEAKER) (test chqi=411) 28.5 % 36.0-45.0 MEAN CORPUSCULAR VOLUME (BEAKER) (test thmn=981) 87.0 fL 82.0-99.0 MEAN CORPUSCULAR HEMOGLOBIN (BEAKER) (test gsxa=261) 28.1 pg 27.0-33.0 MEAN CORPUSCULAR HEMOGLOBIN CONC (BEAKER) (test irgn=989) 32.3 GM/DL 32.0- 36.0 RED CELL DISTRIBUTION WIDTH (BEAKER) (test piwk=832) 16.8 % 10.3-14.2 PLATELET COUNT (BEAKER) (test mjhf=939) 177 K/CU MM 150-430 MEAN PLATELET VOLUME (BEAKER) (test ggmf=528) 7.4 fL 6.5-10.5 NUCLEATED RED BLOOD CELLS (BEAKER) (test trml=458) 0 /100 WBC 0-0 NEUTROPHILS RELATIVE PERCENT (BEAKER) (test jzhl=126) 68 % LYMPHOCYTES RELATIVE PERCENT (BEAKER) (test makm=428) 19 % MONOCYTES RELATIVE PERCENT (BEAKER) (test zkax=540) 7 % EOSINOPHILS RELATIVE PERCENT (BEAKER) (test patd=549) 7 % BASOPHILS RELATIVE PERCENT (BEAKER) (test krfs=391) 0 % NEUTROPHILS ABSOLUTE COUNT (BEAKER) (test jyvp=668) 7.00 K/ L 1.80-8.00 LYMPHOCYTES ABSOLUTE COUNT (BEAKER) (test anps=119) 1.90 K/ L 1.48-4.50 MONOCYTES ABSOLUTE COUNT (BEAKER) (test whor=869) 0.70 K/ L 0.00-1.30 EOSINOPHILS ABSOLUTE COUNT (BEAKER) (test vlcx=526) 0.70 K/ L 0.00-0.50 BASOPHILS ABSOLUTE COUNT (BEAKER) (test zuic=399) 0.00 K/ L 0.00-0.20 POCT-GLUCOSE [id number] 06:15:00* Test Item Value Reference Range Comments POC-GLUCOSE METER ([facility]) (test wjyd=6453) 152 mg/dL 70-110 TESTED AT [place] [id number] POCT-GLUCOSE [id number] 00:41:00* Test Item Value Reference Range Comments POC-GLUCOSE METER (BEAKER) (test lxuw=6544) 143 mg/dL 70-110 TESTED AT [place] [address] POCT-GLUCOSE [id number] 21:14:00* Test Item Value Reference Range Comments POC-GLUCOSE METER (BEAKER) (test qjof=9248) 59 mg/dL 70-110 TESTED AT [address] [address] POCT-GLUCOSE [id number] 19:14:00* Test Item Value Reference Range Comments POC-GLUCOSE METER (BEAKER) (test whop=4364) 144 mg/dL 70-110 TESTED AT [address] [address] POCT-GLUCOSE [id number] 18:24:00* Test Item Value Reference Range Comments POC-GLUCOSE METER (AKER) (test zyzg=6164) 141 mg/dL 70-110 TESTED AT [place] [address]248 POCT-GLUCOSE [id number] 13:10:00* Test Item Value Reference Range Comments POC-GLUCOSE METER (BEAKER) (test tbwi=3531) 92 mg/dL 70-110 TESTED AT [address] [address] POCT-GLUCOSE [id number] 12:53:00* Test Item Value Reference Range Comments POC-GLUCOSE METER (BEAKER) (test qhoj=8106) 57 mg/dL 70-110 TESTED AT [address] [address] POCT-GLUCOSE [id number] 12:53:00* Test Item Value Reference Range Comments POC-GLUCOSE METER (BEAKER) (test csgz=2651) 57 mg/dL 70-110 TESTED AT [address] [address] POCT-GLUCOSE [id number] 08:39:00* Test Item Value Reference Range Comments POC-GLUCOSE METER (BEAKER) (test yeia=2849) 217 mg/dL 70-110 TESTED AT [address] [address] POCT-GLUCOSE [id number] 07:04:00* Test Item Value Reference Range Comments POC-GLUCOSE METER (BEAKER) (test uvyl=7926) 145 mg/dL 70-110 TESTED AT [address] [address] POCT-GLUCOSE [id number] 20:39:00* Test Item Value Reference Range Comments POC-GLUCOSE METER (BEAKER) (test zhzv=3887) 148 mg/dL 70-110 TESTED AT [address] [address] POCT-GLUCOSE [id number] 16:47:00* Test Item Value Reference Range Comments POC-GLUCOSE METER (BEAKER) (test nygw=4353) 109 mg/dL 70-110 TESTED AT [address] [address] POCT-GLUCOSE [id number] 11:51:00* Test Item Value Reference Range Comments POC-GLUCOSE METER (BEAKER) (test dxzz=1171) 176 mg/dL 70-110 TESTED AT [address] [address] COMPREHENSIVE METABOLIC [id number] 06:43:00* Test Item Value Reference Range Comments TOTAL PROTEIN (BEAKER) (test nktb=786) 4.2 gm/dL 6.0-8.5 ALBUMIN (BEAKER) (test qgxg=1466) 1.8 g/dL 3.5-5.0 ALKALINE PHOSPHATASE (BEAKER) (test nspp=524) 98 U/L 30-115 BILIRUBIN TOTAL (BEAKER) (test uvdw=276) < mg/dL 0.1-1.2 SODIUM (BEAKER) (test pwot=091) 142 meq/L 135-148 POTASSIUM (BEAKER) (test fzzh=815) 3.5 meq/L 3.6-5.5 CHLORIDE (BEAKER) (test jkua=191) 109 meq/L 98-106 CO2 (BEAKER) (test rggg=864) 25 meq/L 20-29 BLOOD UREA NITROGEN (BEAKER) (test rkjm=265) 9 mg/dL 10-26 CREATININE (BEAKER) (test glqm=562) 2.50 mg/dL 0.50-1.20 GLUCOSE RANDOM (BEAKER) (test trwb=926) 161 mg/dL 70-110 CALCIUM (BEAKER) (test hhrg=376) 7.0 mg/dL 8.5-10.5 AST (SGOT) (BEAKER) (test iskk=355) 13 U/L 5-40 ALT (SGPT) (BEAKER) (test ghjl=348) 14 U/L 5-50 EGFR (BEAKER) (test iben=2854) 28 mL/min/1.73 sq m ESTIMATED GFR IS NOT ACCURATE CREATININE CLEARANCE IN PREDICTING GLOMERULAR FILTRATION RATE. ESTIMATED GFR IS NOT APPLICABLE FOR DIALYSIS PATIENTS. POCT-GLUCOSE [id number] 06:40:00* Test Item Value Reference Range Comments POC-GLUCOSE METER (BEAKER) (test ghrz=4182) 149 mg/dL 70-110 TESTED AT [facility] [address] [place] [address] [id number] 06:34:00* Test Item Value Reference Range Comments PHOSPHORUS (BEAKER) (test yugq=757) 2.8 mg/dL 2.5-4.5 CBC W/PLT COUNT & AUTO [id number] 06:25:00* Test Item Value Reference Range Comments WHITE BLOOD CELL COUNT (BEAKER) (test spjn=887) 7.9 K/ L 4.0-10.0 RED BLOOD CELL COUNT (BEAKER) (test lauf=707) 3.36 M/ L 4.00-5.00 HEMOGLOBIN (BEAKER) (test upis=433) 9.3 GM/DL 12.0-15.0 HEMATOCRIT (BEAKER) (test eaoj=163) 28.8 % 36.0-45.0 MEAN CORPUSCULAR VOLUME (BEAKER) (test rwux=177) 85.7 fL 82.0-99.0 MEAN CORPUSCULAR HEMOGLOBIN (BEAKER) (test frin=396) 27.8 pg 27.0-33.0 MEAN CORPUSCULAR HEMOGLOBIN CONC (BEAKER) (test qbqn=183) 32.4 GM/DL 32.0- 36.0 RED CELL DISTRIBUTION WIDTH (BEAKER) (test wkrn=365) 16.3 % 10.3-14.2 PLATELET COUNT (BEAKER) (test uvaw=076) 147 K/CU MM 150-430 MEAN PLATELET VOLUME (BEAKER) (test jrof=013) 7.6 fL 6.5-10.5 NUCLEATED RED BLOOD CELLS (BEAKER) (test kdry=472) 0 /100 WBC 0-0 NEUTROPHILS RELATIVE PERCENT (BEAKER) (test nmfd=345) 62 % LYMPHOCYTES RELATIVE PERCENT (BEAKER) (test finx=602) 26 % MONOCYTES RELATIVE PERCENT (BEAKER) (test ofie=939) 7 % EOSINOPHILS RELATIVE PERCENT (BEAKER) (test wqja=708) 4 % BASOPHILS RELATIVE PERCENT (BEAKER) (test uvyh=204) 0 % NEUTROPHILS ABSOLUTE COUNT (BEAKER) (test yfne=463) 4.90 K/ L 1.80-8.00 LYMPHOCYTES ABSOLUTE COUNT (BEAKER) (test qkoi=990) 2.10 K/ L 1.48-4.50 MONOCYTES ABSOLUTE COUNT (BEAKER) (test gmtg=073) 0.60 K/ L 0.00-1.30 EOSINOPHILS ABSOLUTE COUNT (BEAKER) (test cycm=210) 0.30 K/ L 0.00-0.50 BASOPHILS ABSOLUTE COUNT (BEAKER) (test zncf=213) 0.00 K/ L 0.00-0.20 POCT-GLUCOSE [id number] 21:29:00* Test Item Value Reference Range Comments POC-GLUCOSE METER (BEAKER) (test rqtn=8914) 145 mg/dL 70-110 TESTED AT [facility] [address] [facility] [address] POCT-GLUCOSE [id number] 18:32:00* Test Item Value Reference Range Comments POC-GLUCOSE METER (BEAKER) (test fetm=5507) 116 mg/dL 70-110 TESTED AT [place] [address] POCT-GLUCOSE [id number] 17:54:00* Test Item Value Reference Range Comments POC-GLUCOSE METER (BEAKER) (test srzu=7011) 55 mg/dL 70-110 TESTED AT [place] [address] POCT-GLUCOSE [id number] 16:02:00* Test Item Value Reference Range Comments POC-GLUCOSE METER (BEAKER) (test pmdi=9304) 90 mg/dL 70-110 TESTED AT [place] [address] POCT-GLUCOSE [id number] 16:02:00* Test Item Value Reference Range Comments POC-GLUCOSE METER (BEAKER) (test yvwk=8694) 183 mg/dL 70-110 TESTED AT [place] [address] POCT-GLUCOSE [id number] 12:06:00* Test Item Value Reference Range Comments POC-GLUCOSE METER (BEAKER) (test izub=8335) 191 mg/dL 70-110 TESTED AT [place] [address] POCT-GLUCOSE [id number] 06:32:00* Test Item Value Reference Range Comments POC-GLUCOSE METER (BEAKER) (test zvqr=2887) 55 mg/dL 70-110 TESTED AT [address] [address] COMPREHENSIVE METABOLIC [id number] 04:58:00* Test Item Value Reference Range Comments TOTAL PROTEIN (BEAKER) (test tpgf=312) 4.5 gm/dL 6.0-8.5 ALBUMIN (BEAKER) (test aosv=8172) 1.9 g/dL 3.5-5.0 ALKALINE PHOSPHATASE (BEAKER) (test qwnt=211) 84 U/L 30-115 BILIRUBIN TOTAL (BEAKER) (test jgof=622) < mg/dL 0.1-1.2 SODIUM (BEAKER) (test cxxf=323) 142 meq/L 135-148 POTASSIUM (BEAKER) (test zgdn=688) 3.7 meq/L 3.6-5.5 CHLORIDE (BEAKER) (test gjfc=223) 109 meq/L 98-106 CO2 (BEAKER) (test yuop=086) 25 meq/L 20-29 BLOOD UREA NITROGEN (BEAKER) (test voxq=641) 17 mg/dL 10-26 CREATININE (BEAKER) (test cxnk=439) 3.10 mg/dL 0.50-1.20 GLUCOSE RANDOM (BEAKER) (test rzvg=955) 92 mg/dL 70-110 CALCIUM (BEAKER) (test jmtu=744) 6.9 mg/dL 8.5-10.5 AST (SGOT) (BEAKER) (test qxkw=749) 13 U/L 5-40 ALT (SGPT) (BEAKER) (test yjka=802) 13 U/L 5-50 EGFR (BEAKER) (test vecx=0686) 22 mL/min/1.73 sq m ESTIMATED GFR IS NOT ACCURATE CREATININE CLEARANCE IN PREDICTING GLOMERULAR FILTRATION RATE. ESTIMATED GFR IS NOT APPLICABLE FOR DIALYSIS PATIENTS. [id number] 04:54:00* Test Item Value Reference Range Comments PHOSPHORUS (BEAKER) (test zauw=486) 3.8 mg/dL 2.5-4.5 CBC W/PLT COUNT & AUTO [id number] 04:35:00* Test Item Value Reference Range Comments WHITE BLOOD CELL COUNT (BEAKER) (test emwl=267) 8.2 K/ L 4.0-10.0 RED BLOOD CELL COUNT (BEAKER) (test chfo=946) 3.51 M/ L 4.00-5.00 HEMOGLOBIN (BEAKER) (test rrwu=281) 9.9 GM/DL 12.0-15.0 HEMATOCRIT (BEAKER) (test rgvz=199) 30.1 % 36.0-45.0 MEAN CORPUSCULAR VOLUME (BEAKER) (test ryci=380) 85.7 fL 82.0-99.0 MEAN CORPUSCULAR HEMOGLOBIN (BEAKER) (test curl=252) 28.1 pg 27.0-33.0 MEAN CORPUSCULAR HEMOGLOBIN CONC (BEAKER) (test lhhq=840) 32.8 GM/DL 32.0- 36.0 RED CELL DISTRIBUTION WIDTH (BEAKER) (test uqpm=643) 16.2 % 10.3-14.2 PLATELET COUNT (BEAKER) (test idwk=615) 161 K/CU MM 150-430 MEAN PLATELET VOLUME (BEAKER) (test zaim=817) 7.2 fL 6.5-10.5 NUCLEATED RED BLOOD CELLS (BEAKER) (test pwfr=147) 0 /100 WBC 0-0 NEUTROPHILS RELATIVE PERCENT (BEAKER) (test twox=265) 50 % LYMPHOCYTES RELATIVE PERCENT (BEAKER) (test hxcs=103) 37 % MONOCYTES RELATIVE PERCENT (BEAKER) (test zfer=086) 10 % EOSINOPHILS RELATIVE PERCENT (BEAKER) (test xrtb=081) 2 % BASOPHILS RELATIVE PERCENT (BEAKER) (test vlgl=186) 1 % NEUTROPHILS ABSOLUTE COUNT (BEAKER) (test olbf=203) 4.10 K/ L 1.80-8.00 LYMPHOCYTES ABSOLUTE COUNT (BEAKER) (test pdpg=086) 3.00 K/ L 1.48-4.50 MONOCYTES ABSOLUTE COUNT (BEAKER) (test zuaj=922) 0.80 K/ L 0.00-1.30 EOSINOPHILS ABSOLUTE COUNT (BEAKER) (test qybs=919) 0.20 K/ L 0.00-0.50 BASOPHILS ABSOLUTE COUNT (BEAKER) (test ncic=002) 0.00 K/ L 0.00-0.20 POCT-GLUCOSE [id number] 22:52:00* Test Item Value Reference Range Comments POC-GLUCOSE METER (BEAKER) (test djwq=1142) 109 mg/dL 70-110 TESTED AT [address] [address] POCT-GLUCOSE [id number] 21:26:00* Test Item Value Reference Range Comments POC-GLUCOSE METER (BEAKER) (test uhff=8438) 68 mg/dL 70-110 TESTED AT [facility] [address] [place] [address] HEPATITIS B SURFACE [id number] 19:56:00* Test Item Value Reference Range Comments HEPATITIS B SURFACE ANTIBODY (BEAKER) (test btox=200) 7393.9 mIU/mL <8.0 HEPATITIS B CORE ANTIBODY, [id number] 18:55:00* Test Item Value Reference Range Comments HEPATITIS B CORE TOTAL ANTIBODY (BEAKER) (test zvjy=624) Nonreactive Nonreactive POCT-GLUCOSE [id number] 17:10:00* Test Item Value Reference Range Comments POC-GLUCOSE METER (BEAKER) (test xeqy=3987) 83 mg/dL 70-110 TESTED AT [address] [address] POCT-GLUCOSE [id number] 16:37:00* Test Item Value Reference Range Comments POC-GLUCOSE METER (BEAKER) (test sspd=3284) 23 mg/dL 70-110 TESTED AT [place] [address] PROTEIN, RANDOM [id number] 13:20:00* Test Item Value Reference Range Comments PROTEIN, URINE (BEAKER) (test dzvg=5150) 1376 mg/dL 0-14 CREATININE, RANDOM [id number] 12:04:00* Test Item Value Reference Range Comments CREATININE URINE (BEAKER) (test apfo=964) 58.2 mg/dL Reference Range: No NormalsPOCT-GLUCOSE [id number] 11:57:00* Test Item Value Reference Range Comments POC-GLUCOSE METER (BEAKER) (test nnmg=0838) 142 mg/dL 70-110 TESTED AT [address] [address] URINALYSIS W/ [id number] 11:41:00* Test Item Value Reference Range Comments COLOR (BEAKER) (test wina=153) Yellow CLARITY (BEAKER) (test yhkc=594) Clear SPECIFIC GRAVITY UA (BEAKER) (test wctq=909) 1.015 1.001-1.035 PH UA (BEAKER) (test ckxl=663) 7.0 5.0-8.0 PROTEIN UA (BEAKER) (test gckv=332) >=300 mg/dL Negative GLUCOSE UA (BEAKER) (test sqgs=473) >=1000 mg/dL Negative KETONES UA (BEAKER) (test jbwl=836) Negative Negative BILIRUBIN UA (BEAKER) (test ptmb=469) Negative Negative BLOOD UA (BEAKER) (test prwh=835) Moderate Negative NITRITE UA (BEAKER) (test osfv=744) Negative Negative LEUKOCYTE ESTERASE UA (BEAKER) (test totr=923) Negative Negative UROBILINOGEN UA (BEAKER) (test adco=428) 0.2 mg/dL 0.2-1.0 BACTERIA (BEAKER) (test gwis=800) Occasional RBC UA-MANUAL (BEAKER) (test uhei=6162) <5 /HPF WBC UA-MANUAL (BEAKER) (test icft=8139) <5 /HPF SQUAMOUS EPITHELIAL MANUAL (BEAKER) (test edcq=6059) <5 /HPF SOURCE(BEAKER) (test toma=3567) COMPREHENSIVE METABOLIC [id number] 11:08:00* Test Item Value Reference Range Comments TOTAL PROTEIN (BEAKER) (test bfrs=484) 4.3 gm/dL 6.0-8.5 ALBUMIN (BEAKER) (test tgtm=0588) 1.9 g/dL 3.5-5.0 ALKALINE PHOSPHATASE (BEAKER) (test jbhr=641) 78 U/L 30-115 BILIRUBIN TOTAL (BEAKER) (test wdpm=159) < mg/dL 0.1-1.2 SODIUM (BEAKER) (test gtrx=418) 141 meq/L 135-148 POTASSIUM (BEAKER) (test nehp=154) 3.3 meq/L 3.6-5.5 CHLORIDE (BEAKER) (test czpq=392) 111 meq/L 98-106 CO2 (BEAKER) (test eofx=224) 21 meq/L 20-29 BLOOD UREA NITROGEN (BEAKER) (test fbxu=430) 28 mg/dL 10-26 CREATININE (BEAKER) (test epnw=063) 4.30 mg/dL 0.50-1.20 GLUCOSE RANDOM (BEAKER) (test mswp=210) 185 mg/dL 70-110 CALCIUM (BEAKER) (test sdbq=738) 6.7 mg/dL 8.5-10.5 AST (SGOT) (BEAKER) (test wwgf=776) 11 U/L 5-40 ALT (SGPT) (BEAKER) (test ermy=997) 13 U/L 5-50 EGFR (BEAKER) (test ecbq=2125) 15 mL/min/1.73 sq m ESTIMATED GFR IS NOT ACCURATE CREATININE CLEARANCE IN PREDICTING GLOMERULAR FILTRATION RATE. ESTIMATED GFR IS NOT APPLICABLE FOR DIALYSIS PATIENTS. [id number] 10:58:00* Test Item Value Reference Range Comments PHOSPHORUS (BEAKER) (test djdt=886) 4.8 mg/dL 2.5-4.5 CBC W/PLT COUNT & AUTO [id number] 10:41:00* Test Item Value Reference Range Comments WHITE BLOOD CELL COUNT (BEAKER) (test kwtd=276) 9.3 K/ L 4.0-10.0 RED BLOOD CELL COUNT (BEAKER) (test ybjr=330) 2.76 M/ L 4.00-5.00 HEMOGLOBIN (BEAKER) (test tdcg=205) 7.6 GM/DL 12.0-15.0 HEMATOCRIT (BEAKER) (test ybho=158) 23.2 % 36.0-45.0 MEAN CORPUSCULAR VOLUME (BEAKER) (test vrsi=803) 83.8 fL 82.0-99.0 MEAN CORPUSCULAR HEMOGLOBIN (BEAKER) (test mkwr=727) 27.4 pg 27.0-33.0 MEAN CORPUSCULAR HEMOGLOBIN CONC (BEAKER) (test frhy=908) 32.7 GM/DL 32.0- 36.0 RED CELL DISTRIBUTION WIDTH (BEAKER) (test nxeb=280) 16.4 % 10.3-14.2 PLATELET COUNT (BEAKER) (test aych=467) 167 K/CU MM 150-430 MEAN PLATELET VOLUME (BEAKER) (test hjph=501) 6.9 fL 6.5-10.5 NUCLEATED RED BLOOD CELLS (BEAKER) (test ldln=410) 0 /100 WBC 0-0 NEUTROPHILS RELATIVE PERCENT (BEAKER) (test krmq=144) 74 % LYMPHOCYTES RELATIVE PERCENT (BEAKER) (test mzwm=417) 21 % MONOCYTES RELATIVE PERCENT (BEAKER) (test uovz=948) 4 % EOSINOPHILS RELATIVE PERCENT (BEAKER) (test iypm=207) 0 % BASOPHILS RELATIVE PERCENT (BEAKER) (test tawx=776) 0 % NEUTROPHILS ABSOLUTE COUNT (BEAKER) (test xzhx=366) 6.90 K/ L 1.80-8.00 LYMPHOCYTES ABSOLUTE COUNT (BEAKER) (test idoa=212) 1.90 K/ L 1.48-4.50 MONOCYTES ABSOLUTE COUNT (BEAKER) (test vxjo=571) 0.40 K/ L 0.00-1.30 EOSINOPHILS ABSOLUTE COUNT (BEAKER) (test awhu=386) 0.00 K/ L 0.00-0.50 BASOPHILS ABSOLUTE COUNT (BEAKER) (test ompf=773) 0.00 K/ L 0.00-0.20 TISSUE [id number] 09:22:00Surgical Pathology Report Case: [id number] Authorizing Provider: Trevor Castro MD Collected: 01/04/2017 1030 Ordering Location: [facility] Med Surg 5th Floor Received: 01/04/2017 1204 Pathologist: Lissa Rodríguez MD Specimen: Renal Pelvis KIDNEY, NEEDLE BIOPSIES- FOCAL SEGMENTAL AND DIFFUSE GLOBAL GLOMERULOSCLEROSIS- NODULAR DIABETIC GLOMERULOSCLEROSIS- INTERSTITIAL FIBROSIS AND TUBULAR ATROPHY, MARKED (~80%)- SEVERE ARTERIAL AND ARTERIOLOSCLEROSIS The kidney biopsy shows features of advanced diabetic glomerulosclerosis with focal and segmental scarring. The overall global glomerulosclerosis is 62% (23/37) of all examined glomeruli, in a background of marked (~80%) interstitial fibrosis and tubular atrophy.The results were communicated to Dr. Castro on 01/14/2017. 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 Kidney biopsy The specimen is received in saline and consists of two white-menendez biopsy cores measuring 1.0 cm in length and 0.1 cm in diameter. The tissue cores were examined under the microscopy for glomeruli. One tissue core is bisected and submitted into PBS and glutaraldehyde solution, and the other tissue core is submitted into A1 for histologic evaluation. MG/ew LIGHT MICROSCOPY: Sections show single core of [...] No endocapillary hypercellularity, crescents or thrombi are seen.Tubules and interstitium: There is severe interstitial fibrosis [...] staining patterns of internal control tissue matrix structures.Direct Immunofluorescence:Histology: H&E-stained sections show 3 non-obsolescent glomeruli and 2 obsolescent glomeruli. Immunofluorescence findings: Albumin: diffuse, glomerular and tubular basement membrane, weak. IgA: negative in glomeruli, tubular casts are positive IgG: no significant glomerular, tubulointerstitial or vascular staining. IgM: focal, segmental, amorphous/ entrapment, 1+. C3: negative in glomeruli, focal arteriolar, Sepulveda's capsule, interstitial, 3+. C1q: no significant glomerular, tubulointerstitial or vascular staining. Fibrinogen: diffuse, glomerular and tubulointerstitial, weak. [employer]: negative glomeruli; tubular casts are positive Lambda: negative glomeruli; tubular casts are positiveAll polyclonal antibodies used for immunofluorescence staining have been previously tested and shown to have appropriate reactivities with positive control specimens. Diagnostic Electron Microscopy:Thick section histology: Toluidine blue-stained sections of four blocks reveal two non-obsolescent glomeruli and five obsolescent glomeruli, four of which are examined ultrastructurally.Ultrastructure: Examination of the glomerular ultrastructure reveals that the glomerular basement membrane is diffusely thickened generally measuring up to approximately 1080 nm (normal adult female auonznp=836 - 394 nm; Deanna Manzano, Arch Pathol Lab Med 133:224-232). The mesangial matrix is markedly expanded and nodular in places. Focal mesangial hypercellularity is present. Subendothelial, subepithelial, and mesangial/paramesangial electron-dense, immune complex-type deposits are not present. Focal hyaline deposition is noted. Podocyte foot processes are extensively effaced. Tubular basement membranes are thickened.POCT-GLUCOSE [id number] 07:07:00* Test Item Value Reference Range Comments POC-GLUCOSE METER (NEFTALIRACHEL) (test pvrf=7105) 213 mg/dL 70-110 TESTED AT [address] [address] POCT-GLUCOSE [id number] 06:19:00* Test Item Value Reference Range Comments POC-GLUCOSE METER (BEAKER) (test dpea=8009) 47 mg/dL 70-110 TESTED AT [address] [address] POCT-GLUCOSE [id number] 21:23:00* Test Item Value Reference Range Comments POC-GLUCOSE METER (BEAKER) (test ffgi=9206) 65 mg/dL 70-110 TESTED AT [address] [address] POCT-GLUCOSE [id number] 17:15:00* Test Item Value Reference Range Comments POC-GLUCOSE METER (BEAKER) (test oymh=2594) 83 mg/dL 70-110 TESTED AT [address] [address] HEPATITIS B SURFACE [id number] 17:12:00* Test Item Value Reference Range Comments HEPATITIS B SURFACE ANTIGEN (2) (BEAKER) (test mrxg=2019) Nonreactive Nonreactive POCT-GLUCOSE [id number] 14:19:00* Test Item Value Reference Range Comments POC-GLUCOSE METER (BEAKER) (test zfmi=3696) 241 mg/dL 70-110 TESTED AT [address] [address] [id number] 13:54:00* Test Item Value Reference Range Comments LIPASE (BEAKER) (test vtbf=548) 14 U/L 6-51 POCT-GLUCOSE [id number] 07:00:00* Test Item Value Reference Range Comments POC-GLUCOSE METER (BEAKER) (test mrwu=2391) 287 mg/dL 70-110 TESTED AT [address] [address] COMPREHENSIVE METABOLIC [id number] 05:58:00* Test Item Value Reference Range Comments TOTAL PROTEIN (BEAKER) (test fweq=829) 5.2 gm/dL 6.0-8.5 ALBUMIN (BEAKER) (test xbwt=1065) 2.2 g/dL 3.5-5.0 ALKALINE PHOSPHATASE (BEAKER) (test krff=757) 103 U/L 30-115 BILIRUBIN TOTAL (BEAKER) (test foar=874) < mg/dL 0.1-1.2 SODIUM (BEAKER) (test pfoa=213) 141 meq/L 135-148 POTASSIUM (BEAKER) (test zkfg=570) 4.0 meq/L 3.6-5.5 CHLORIDE (BEAKER) (test zmtk=478) 117 meq/L 98-106 CO2 (BEAKER) (test ttpk=041) 13 meq/L 20-29 BLOOD UREA NITROGEN (BEAKER) (test lifz=133) 41 mg/dL 10-26 CREATININE (BEAKER) (test amgt=919) 5.10 mg/dL 0.50-1.20 GLUCOSE RANDOM (BEAKER) (test eczb=788) 208 mg/dL 70-110 CALCIUM (BEAKER) (test ncmj=711) 6.9 mg/dL 8.5-10.5 AST (SGOT) (BEAKER) (test xowi=051) 10 U/L 5-40 ALT (SGPT) (BEAKER) (test wips=352) 16 U/L 5-50 EGFR (BEAKER) (test yztz=7696) 12 mL/min/1.73 sq m ESTIMATED GFR IS NOT ACCURATE CREATININE CLEARANCE IN PREDICTING GLOMERULAR FILTRATION RATE. ESTIMATED GFR IS NOT APPLICABLE FOR DIALYSIS PATIENTS. [id number] 05:53:00* Test Item Value Reference Range Comments PHOSPHORUS (BEAKER) (test smqo=460) 5.3 mg/dL 2.5-4.5 CBC W/PLT COUNT & AUTO [id number] 05:37:00* Test Item Value Reference Range Comments WHITE BLOOD CELL COUNT (BEAKER) (test nkip=643) 15.9 K/ L 4.0-10.0 RED BLOOD CELL COUNT (BEAKER) (test ynbs=815) 3.22 M/ L 4.00-5.00 HEMOGLOBIN (BEAKER) (test tjrj=734) 8.9 GM/DL 12.0-15.0 HEMATOCRIT (BEAKER) (test vhdf=315) 27.3 % 36.0-45.0 MEAN CORPUSCULAR VOLUME (BEAKER) (test xeyf=508) 84.7 fL 82.0-99.0 MEAN CORPUSCULAR HEMOGLOBIN (BEAKER) (test ivbj=427) 27.5 pg 27.0-33.0 MEAN CORPUSCULAR HEMOGLOBIN CONC (BEAKER) (test huss=378) 32.5 GM/DL 32.0- 36.0 RED CELL DISTRIBUTION WIDTH (BEAKER) (test mhal=447) 16.4 % 10.3-14.2 PLATELET COUNT (BEAKER) (test wzku=547) 182 K/CU MM 150-430 MEAN PLATELET VOLUME (BEAKER) (test mcea=147) 7.6 fL 6.5-10.5 NUCLEATED RED BLOOD CELLS (BEAKER) (test nnqh=841) 0 /100 WBC 0-0 NEUTROPHILS RELATIVE PERCENT (BEAKER) (test hgzd=129) 87 % LYMPHOCYTES RELATIVE PERCENT (BEAKER) (test vlwq=332) 8 % MONOCYTES RELATIVE PERCENT (BEAKER) (test vndf=239) 5 % EOSINOPHILS RELATIVE PERCENT (BEAKER) (test opsw=299) 0 % BASOPHILS RELATIVE PERCENT (BEAKER) (test qixq=711) 0 % NEUTROPHILS ABSOLUTE COUNT (BEAKER) (test plpk=275) 13.90 K/ L 1.80-8.00 LYMPHOCYTES ABSOLUTE COUNT (BEAKER) (test qlgz=750) 1.20 K/ L 1.48-4.50 MONOCYTES ABSOLUTE COUNT (BEAKER) (test cwfk=626) 0.90 K/ L 0.00-1.30 EOSINOPHILS ABSOLUTE COUNT (BEAKER) (test mvjp=353) 0.00 K/ L 0.00-0.50 BASOPHILS ABSOLUTE COUNT (BEAKER) (test ctjr=909) 0.00 K/ L 0.00-0.20 POCT-GLUCOSE [id number] 20:29:00* Test Item Value Reference Range Comments POC-GLUCOSE METER (BEAKER) (test mijg=4467) 213 mg/dL 70-110 TESTED AT [address] [address] POCT-GLUCOSE [id number] 16:25:00* Test Item Value Reference Range Comments POC-GLUCOSE METER (AKER) (test icwp=4201) 115 mg/dL 70-110 TESTED AT [address] [address] PROTEIN ELECTROPHORESIS, [id number] 13:59:00* Test Item Value Reference Range Comments ALBUMIN FRACTION (BEAKER) (test wiru=999) 1.8 g/dL 3.5-5.5 ALPHA 1 FRACTION (BEAKER) (test zggd=116) 0.2 g/dL 0.2-0.4 ALPHA 2 FRACTION (BEAKER) (test ltyv=645) 0.9 g/dL 0.5-0.9 BETA FRACTION (BEAKER) (test kfnv=436) 0.9 g/dL 0.6-1.1 GAMMA GLOBULIN FRACTION (BEAKER) (test pxfi=995) 0.5 g/dL 0.7-1.7 INTERPRETATION-119 (BEAKER) (test bftm=8785) Decreased albumin and gamma globulins, suggestive of renal loss and/or protein-losing enteropathy. No monoclonal bands detected. TQOD-BUCEBVBURHB-333 (BEAKER) (test kfnd=3062) Bailee Toth MD ( electronic signature) PROTEIN TOTAL SERUM, SPEP (BEAKER) (test jzae=4699) 4.3 gm/dL 6.0-8.3 ANTI-NUCLEAR ANTIBODY (PHILOMENA)2017-01-04 13:00:00* Test Item Value Reference Range Comments ANTI-NUCLEAR ANTIBODY (PHILOMENA) (BEAKER) (test yvsc=390) Negative Negative POCT-GLUCOSE [id number] 11:58:00* Test Item Value Reference Range Comments POC-GLUCOSE METER (BEAKER) (test dgej=9451) 149 mg/dL 70-110 TESTED AT [place] [id number] [facility] [address] POCT-GLUCOSE [id number] 11:58:00* Test Item Value Reference Range Comments POC-GLUCOSE METER (BEAKER) (test bwgq=4964) 238 mg/dL 70-110 TESTED AT [address] [address] COMPLEMENT COMPONENT [id number] 10:10:00* Test Item Value Reference Range Comments C4 COMPLEMENT (BEAKER) (test fkdp=384) 42 mg/dL 15-57 Effective 06/05/2014: Reference Range ChangeNew: 15-57 Previous: 16- 38COMPLEMENT COMPONENT [id number] 10:10:00* Test Item Value Reference Range Comments C3 COMPLEMENT (BEAKER) (test lxnk=888) 110 mg/dL 82-193 Effective 06/05/2014: Reference Range ChangeNew: 82-193 Previous: 79- 152COMPREHENSIVE METABOLIC [id number] 07:14:00* Test Item Value Reference Range Comments TOTAL PROTEIN (BEAKER) (test qonh=421) 4.8 gm/dL 6.0-8.5 ALBUMIN (BEAKER) (test pwdn=0518) 2.0 g/dL 3.5-5.0 ALKALINE PHOSPHATASE (BEAKER) (test jsww=207) 106 U/L 30-115 BILIRUBIN TOTAL (BEAKER) (test kdfu=447) < mg/dL 0.1-1.2 SODIUM (BEAKER) (test cdtv=677) 135 meq/L 135-148 POTASSIUM (BEAKER) (test ibtl=181) 4.6 meq/L 3.6-5.5 CHLORIDE (BEAKER) (test rfuo=933) 110 meq/L 98-106 CO2 (BEAKER) (test skwv=394) 17 meq/L 20-29 BLOOD UREA NITROGEN (BEAKER) (test puzl=139) 57 mg/dL 10-26 CREATININE (BEAKER) (test pdcr=289) 4.30 mg/dL 0.50-1.20 GLUCOSE RANDOM (BEAKER) (test onzy=466) 326 mg/dL 70-110 CALCIUM (BEAKER) (test upvf=991) 7.7 mg/dL 8.5-10.5 AST (SGOT) (BEAKER) (test zden=808) 9 U/L 5-40 ALT (SGPT) (BEAKER) (test wqnp=463) 16 U/L 5-50 EGFR (BEAKER) (test qxpj=1897) 15 mL/min/1.73 sq m ESTIMATED GFR IS NOT ACCURATE CREATININE CLEARANCE IN PREDICTING GLOMERULAR FILTRATION RATE. ESTIMATED GFR IS NOT APPLICABLE FOR DIALYSIS PATIENTS. PROTHROMBIN [id number] 06:52:00* Test Item Value Reference Range Comments PROTIME (BEAKER) (test soqj=813) 9.5 seconds 9.3-12.0 INR (BEAKER) (test abie=001) 0.9 <=5.9 RECOMMENDED COUMADIN/WARFARIN INR THERAPY RANGESSTANDARD DOSE: 2.0 - 3.0 Includes: PROPHYLAXIS for venous thrombosis, systemic embolization; TREATMENT for venous thrombosis and/or pulmonary embolus.HIGH RISK: Target INR is 2.5-3.5 for patients with mechanical heart valves.CBC W/PLT COUNT & AUTO [id number] 06:27:00* Test Item Value Reference Range Comments WHITE BLOOD CELL COUNT (BEAKER) (test pfvs=083) 11.2 K/ L 4.0-10.0 RED BLOOD CELL COUNT (BEAKER) (test joye=002) 3.08 M/ L 4.00-5.00 HEMOGLOBIN (BEAKER) (test afzn=070) 8.5 GM/DL 12.0-15.0 HEMATOCRIT (BEAKER) (test wtqe=168) 26.4 % 36.0-45.0 MEAN CORPUSCULAR VOLUME (BEAKER) (test hslg=936) 85.6 fL 82.0-99.0 MEAN CORPUSCULAR HEMOGLOBIN (BEAKER) (test bcau=983) 27.7 pg 27.0-33.0 MEAN CORPUSCULAR HEMOGLOBIN CONC (BEAKER) (test nydu=672) 32.3 GM/DL 32.0- 36.0 RED CELL DISTRIBUTION WIDTH (BEAKER) (test phwt=419) 15.3 % 10.3-14.2 PLATELET COUNT (BEAKER) (test ftca=681) 279 K/CU MM 150-430 MEAN PLATELET VOLUME (BEAKER) (test wcdg=255) 7.9 fL 6.5-10.5 NUCLEATED RED BLOOD CELLS (BEAKER) (test krwl=554) 0 /100 WBC 0-0 NEUTROPHILS RELATIVE PERCENT (BEAKER) (test nhki=302) 81 % LYMPHOCYTES RELATIVE PERCENT (BEAKER) (test lwba=082) 12 % MONOCYTES RELATIVE PERCENT (BEAKER) (test tykr=649) 6 % EOSINOPHILS RELATIVE PERCENT (BEAKER) (test zwny=893) 0 % BASOPHILS RELATIVE PERCENT (BEAKER) (test yuqn=548) 0 % NEUTROPHILS ABSOLUTE COUNT (BEAKER) (test adyw=066) 9.10 K/ L 1.80-8.00 LYMPHOCYTES ABSOLUTE COUNT (BEAKER) (test tsav=317) 1.40 K/ L 1.48-4.50 MONOCYTES ABSOLUTE COUNT (BEAKER) (test hbxj=482) 0.70 K/ L 0.00-1.30 EOSINOPHILS ABSOLUTE COUNT (BEAKER) (test wsor=899) 0.00 K/ L 0.00-0.50 BASOPHILS ABSOLUTE COUNT (BEAKER) (test hqxq=398) 0.00 K/ L 0.00-0.20 POCT-GLUCOSE [id number] 06:16:00* Test Item Value Reference Range Comments POC-GLUCOSE METER (BEAKER) (test iial=7108) 305 mg/dL 70-110 Notified ALICJA BECKFORD/ TESTED AT [address] [address] POCT-GLUCOSE [id number] 21:58:00* Test Item Value Reference Range Comments POC-GLUCOSE METER (BEAKER) (test cjmc=0498) 437 mg/dL 70-110 TESTED AT [address] [address] POCT-GLUCOSE [id number] 17:47:00* Test Item Value Reference Range Comments POC-GLUCOSE METER (BEAKER) (test vpox=6237) 303 mg/dL 70-110 TESTED AT [address] [address] POCT-GLUCOSE [id number] 13:52:00* Test Item Value Reference Range Comments POC-GLUCOSE METER (BEAKER) (test fazz=7141) 77 mg/dL 70-110 TESTED AT [address] [address] COMPREHENSIVE METABOLIC [id number] 07:15:00* Test Item Value Reference Range Comments TOTAL PROTEIN (BEAKER) (test anyn=250) 4.5 gm/dL 6.0-8.5 ALBUMIN (BEAKER) (test qjus=3914) 1.9 g/dL 3.5-5.0 ALKALINE PHOSPHATASE (BEAKER) (test mokm=064) 92 U/L 30-115 BILIRUBIN TOTAL (BEAKER) (test mouk=938) < mg/dL 0.1-1.2 SODIUM (BEAKER) (test danz=498) 140 meq/L 135-148 POTASSIUM (BEAKER) (test lwox=898) 4.6 meq/L 3.6-5.5 CHLORIDE (BEAKER) (test matf=962) 115 meq/L 98-106 CO2 (BEAKER) (test eoax=729) 15 meq/L 20-29 BLOOD UREA NITROGEN (BEAKER) (test tbfw=666) 47 mg/dL 10-26 CREATININE (BEAKER) (test irev=390) 4.40 mg/dL 0.50-1.20 GLUCOSE RANDOM (BEAKER) (test cbjf=643) 186 mg/dL 70-110 CALCIUM (BEAKER) (test bbwk=627) 7.5 mg/dL 8.5-10.5 AST (SGOT) (BEAKER) (test xwmu=563) 8 U/L 5-40 ALT (SGPT) (BEAKER) (test gvrw=366) 14 U/L 5-50 EGFR (BEAKER) (test vcim=1892) 15 mL/min/1.73 sq m ESTIMATED GFR IS NOT ACCURATE CREATININE CLEARANCE IN PREDICTING GLOMERULAR FILTRATION RATE. ESTIMATED GFR IS NOT APPLICABLE FOR DIALYSIS PATIENTS. POCT-GLUCOSE [id number] 06:46:00* Test Item Value Reference Range Comments POC-GLUCOSE METER (BEAKER) (test fsno=3821) 215 mg/dL 70-110 TESTED AT [address] [address] [id number] 06:42:00* Test Item Value Reference Range Comments PHOSPHORUS (BEAKER) (test fsdg=166) 4.6 mg/dL 2.5-4.5 CBC W/PLT COUNT & AUTO [id number] 06:35:00* Test Item Value Reference Range Comments WHITE BLOOD CELL COUNT (BEAKER) (test owvu=994) 8.5 K/ L 4.0-10.0 RED BLOOD CELL COUNT (BEAKER) (test bgay=151) 2.98 M/ L 4.00-5.00 HEMOGLOBIN (BEAKER) (test kemd=641) 8.2 GM/DL 12.0-15.0 HEMATOCRIT (BEAKER) (test rygn=825) 25.9 % 36.0-45.0 MEAN CORPUSCULAR VOLUME (BEAKER) (test uzvg=315) 87.2 fL 82.0-99.0 MEAN CORPUSCULAR HEMOGLOBIN (BEAKER) (test rrzf=084) 27.4 pg 27.0-33.0 MEAN CORPUSCULAR HEMOGLOBIN CONC (BEAKER) (test axvp=643) 31.5 GM/DL 32.0- 36.0 RED CELL DISTRIBUTION WIDTH (BEAKER) (test wdrw=753) 16.1 % 10.3-14.2 PLATELET COUNT (BEAKER) (test sxcu=464) 179 K/CU MM 150-430 No clot seen in specimen tube. MEAN PLATELET VOLUME (BEAKER) (test zocu=648) 7.7 fL 6.5-10.5 NUCLEATED RED BLOOD CELLS (BEAKER) (test zrbs=120) 0 /100 WBC 0-0 NEUTROPHILS RELATIVE PERCENT (BEAKER) (test pcyx=673) 62 % LYMPHOCYTES RELATIVE PERCENT (BEAKER) (test gjbj=147) 29 % MONOCYTES RELATIVE PERCENT (BEAKER) (test agcu=247) 5 % EOSINOPHILS RELATIVE PERCENT (BEAKER) (test ckif=813) 4 % BASOPHILS RELATIVE PERCENT (BEAKER) (test afgg=443) 1 % NEUTROPHILS ABSOLUTE COUNT (BEAKER) (test clef=075) 5.30 K/ L 1.80-8.00 LYMPHOCYTES ABSOLUTE COUNT (BEAKER) (test lrnn=048) 2.40 K/ L 1.48-4.50 MONOCYTES ABSOLUTE COUNT (BEAKER) (test kysr=820) 0.40 K/ L 0.00-1.30 EOSINOPHILS ABSOLUTE COUNT (BEAKER) (test qycz=630) 0.30 K/ L 0.00-0.50 BASOPHILS ABSOLUTE COUNT (BEAKER) (test adoq=307) 0.10 K/ L 0.00-0.20 POCT-GLUCOSE [id number] 21:23:00* Test Item Value Reference Range Comments POC-GLUCOSE METER (BEAKER) (test dfxp=3577) 256 mg/dL 70-110 TESTED AT [place] [address] POCT-GLUCOSE [id number] 16:30:00* Test Item Value Reference Range Comments POC-GLUCOSE METER (BEAKER) (test oytc=5141) 245 mg/dL 70-110 TESTED AT [address] [address] POCT-GLUCOSE [id number] 12:32:00* Test Item Value Reference Range Comments POC-GLUCOSE METER (BEAKER) (test kafw=8943) 168 mg/dL 70-110 TESTED AT [address] [address] COMPREHENSIVE METABOLIC [id number] 12:23:00* Test Item Value Reference Range Comments TOTAL PROTEIN (BEAKER) (test bgqs=755) 4.9 gm/dL 6.0-8.5 Specimen moderately hemolyzed ALBUMIN (BEAKER) (test ceib=1335) 1.9 g/dL 3.5-5.0 Specimen moderately hemolyzed ALKALINE PHOSPHATASE (BEAKER) (test vuve=760) 95 U/L 30-115 BILIRUBIN TOTAL (BEAKER) (test team=005) < mg/dL 0.1-1.2 Specimen moderately hemolyzed SODIUM (BEAKER) (test rfip=166) 137 meq/L 135-148 POTASSIUM (BEAKER) (test snjz=887) 4.7 meq/L 3.6-5.5 Specimen moderately hemolyzed CHLORIDE (BEAKER) (test kfja=645) 112 meq/L 98-106 CO2 (BEAKER) (test xohq=513) 15 meq/L 20-29 BLOOD UREA NITROGEN (BEAKER) (test xsoo=506) 45 mg/dL 10-26 CREATININE (BEAKER) (test rnni=742) 4.20 mg/dL 0.50-1.20 Specimen moderately hemolyzed GLUCOSE RANDOM (BEAKER) (test jcuz=078) 185 mg/dL 70-110 CALCIUM (BEAKER) (test edds=775) 7.6 mg/dL 8.5-10.5 AST (SGOT) (BEAKER) (test qoce=873) 15 U/L 5-40 Specimen moderately hemolyzed ALT (SGPT) (BEAKER) (test okmq=587) 16 U/L 5-50 Specimen moderately hemolyzed EGFR (BEAKER) (test lncg=4965) 16 mL/min/1.73 sq m ESTIMATED GFR IS NOT ACCURATE CREATININE CLEARANCE IN PREDICTING GLOMERULAR FILTRATION RATE. ESTIMATED GFR IS NOT APPLICABLE FOR DIALYSIS PATIENTS. COMPREHENSIVE METABOLIC [id number] 10:36:00* Test Item Value Reference Range Comments TOTAL PROTEIN (BEAKER) (test fxvg=473) 4.9 gm/dL 6.0-8.5 ALBUMIN (BEAKER) (test zivy=1665) 2.1 g/dL 3.5-5.0 ALKALINE PHOSPHATASE (BEAKER) (test nbch=754) 103 U/L 30-115 BILIRUBIN TOTAL (BEAKER) (test buha=953) < mg/dL 0.1-1.2 SODIUM (BEAKER) (test tagn=602) 138 meq/L 135-148 POTASSIUM (BEAKER) (test kxor=366) 4.4 meq/L 3.6-5.5 CHLORIDE (BEAKER) (test dgbi=295) 112 meq/L 98-106 CO2 (BEAKER) (test lrrv=660) 16 meq/L 20-29 BLOOD UREA NITROGEN (BEAKER) (test pbwx=523) 47 mg/dL 10-26 CREATININE (BEAKER) (test uuoc=940) 4.40 mg/dL 0.50-1.20 GLUCOSE RANDOM (BEAKER) (test rvti=468) 260 mg/dL 70-110 CALCIUM (BEAKER) (test igys=858) 7.7 mg/dL 8.5-10.5 AST (SGOT) (BEAKER) (test lwrj=202) 9 U/L 5-40 ALT (SGPT) (BEAKER) (test qugx=242) 16 U/L 5-50 EGFR (BEAKER) (test kgjr=5359) 15 mL/min/1.73 sq m ESTIMATED GFR IS NOT ACCURATE CREATININE CLEARANCE IN PREDICTING GLOMERULAR FILTRATION RATE. ESTIMATED GFR IS NOT APPLICABLE FOR DIALYSIS PATIENTS. [id number] 10:29:00* Test Item Value Reference Range Comments PHOSPHORUS (BEAKER) (test sydy=366) 4.7 mg/dL 2.5-4.5 CBC W/PLT COUNT & AUTO [id number] 09:23:00* Test Item Value Reference Range Comments WHITE BLOOD CELL COUNT (BEAKER) (test fsws=740) 11.8 K/ L 4.0-10.0 RED BLOOD CELL COUNT (BEAKER) (test xoci=039) 3.32 M/ L 4.00-5.00 HEMOGLOBIN (BEAKER) (test ibzw=947) 9.1 GM/DL 12.0-15.0 HEMATOCRIT (BEAKER) (test dfmm=216) 28.6 % 36.0-45.0 MEAN CORPUSCULAR VOLUME (BEAKER) (test fdcz=483) 85.9 fL 82.0-99.0 MEAN CORPUSCULAR HEMOGLOBIN (BEAKER) (test nggu=732) 27.5 pg 27.0-33.0 MEAN CORPUSCULAR HEMOGLOBIN CONC (BEAKER) (test ymcg=864) 32.0 GM/DL 32.0- 36.0 RED CELL DISTRIBUTION WIDTH (BEAKER) (test wkqy=293) 15.3 % 10.3-14.2 PLATELET COUNT (BEAKER) (test flzb=120) 282 K/CU MM 150-430 MEAN PLATELET VOLUME (BEAKER) (test rjye=345) 7.2 fL 6.5-10.5 NUCLEATED RED BLOOD CELLS (BEAKER) (test nsmd=998) 0 /100 WBC 0-0 NEUTROPHILS RELATIVE PERCENT (BEAKER) (test ciju=215) 77 % LYMPHOCYTES RELATIVE PERCENT (BEAKER) (test udde=366) 16 % MONOCYTES RELATIVE PERCENT (BEAKER) (test xcnt=354) 5 % EOSINOPHILS RELATIVE PERCENT (BEAKER) (test qgbi=712) 2 % BASOPHILS RELATIVE PERCENT (BEAKER) (test dqbf=058) 0 % NEUTROPHILS ABSOLUTE COUNT (BEAKER) (test tmbb=028) 9.10 K/ L 1.80-8.00 LYMPHOCYTES ABSOLUTE COUNT (BEAKER) (test pzyc=799) 1.90 K/ L 1.48-4.50 MONOCYTES ABSOLUTE COUNT (BEAKER) (test wsby=700) 0.60 K/ L 0.00-1.30 EOSINOPHILS ABSOLUTE COUNT (BEAKER) (test xlvx=966) 0.20 K/ L 0.00-0.50 BASOPHILS ABSOLUTE COUNT (BEAKER) (test xsbh=149) 0.00 K/ L 0.00-0.20 POCT-GLUCOSE [id number] 06:37:00* Test Item Value Reference Range Comments POC-GLUCOSE METER ([facility]) (test dvnk=1855) 298 mg/dL 70-110 TESTED AT [address] [address] POCT-GLUCOSE [id number] 21:06:00* Test Item Value Reference Range Comments POC-GLUCOSE METER ([facility]) (test arie=4936) 433 mg/dL 70-110 TESTED AT [address] [address] POCT-GLUCOSE [id number] 17:37:00* Test Item Value Reference Range Comments POC-GLUCOSE METER ([facility]) (test iqts=6162) 427 mg/dL 70-110 Notified ALICJA BECKFORD/ TESTED AT [address] [address] HEPATITIS B SURFACE [id number] 12:49:00* Test Item Value Reference Range Comments HEPATITIS B SURFACE ANTIBODY (BEAKER) (test nlnq=822) 4285.4 mIU/mL <8.0 POCT-GLUCOSE [id number] 12:37:00* Test Item Value Reference Range Comments POC-GLUCOSE METER (BEAKER) (test qokf=0180) 361 mg/dL 70-110 TESTED AT [place] [address] [facility] [address] HEPATITIS B CORE ANTIBODY, [id number] 12:00:00* Test Item Value Reference Range Comments HEPATITIS B CORE TOTAL ANTIBODY (BEAKER) (test rmhb=425) Nonreactive Nonreactive POCT-GLUCOSE [id number] 08:51:00* Test Item Value Reference Range Comments POC-GLUCOSE METER (BEAKER) (test glnv=2268) 182 mg/dL 70-110 TESTED AT [place] [address] POCT-GLUCOSE [id number] 06:58:00* Test Item Value Reference Range Comments POC-GLUCOSE METER (BEAKER) (test yujm=7467) 145 mg/dL 70-110 TESTED AT [place] [address] POCT-GLUCOSE [id number] 04:20:00* Test Item Value Reference Range Comments POC-GLUCOSE METER (BEAKER) (test vkkl=9811) 98 mg/dL 70-110 TESTED AT [place] [id number] POCT-GLUCOSE [id number] 02:46:00* Test Item Value Reference Range Comments POC-GLUCOSE METER (BEAKER) (test auef=7344) 104 mg/dL 70-110 TESTED AT [address] [address] COMPREHENSIVE METABOLIC [id number] 02:23:00* Test Item Value Reference Range Comments TOTAL PROTEIN (BEAKER) (test yfla=584) 4.8 gm/dL 6.0-8.5 ALBUMIN (BEAKER) (test xpzk=6067) 2.0 g/dL 3.5-5.0 ALKALINE PHOSPHATASE (BEAKER) (test yxea=681) 91 U/L 30-115 BILIRUBIN TOTAL (BEAKER) (test jxwj=345) < mg/dL 0.1-1.2 SODIUM (BEAKER) (test uwrv=472) 142 meq/L 135-148 POTASSIUM (BEAKER) (test jqwo=294) 4.2 meq/L 3.6-5.5 CHLORIDE (BEAKER) (test njgi=643) 116 meq/L 98-106 CO2 (BEAKER) (test gbio=057) 16 meq/L 20-29 BLOOD UREA NITROGEN (BEAKER) (test cviy=980) 42 mg/dL 10-26 CREATININE (BEAKER) (test zfkw=651) 4.30 mg/dL 0.50-1.20 GLUCOSE RANDOM (BEAKER) (test ltmj=807) 47 mg/dL 70-110 CALCIUM (BEAKER) (test kmne=967) 7.4 mg/dL 8.5-10.5 AST (SGOT) (BEAKER) (test obqs=206) 12 U/L 5-40 ALT (SGPT) (BEAKER) (test ljhf=526) 18 U/L 5-50 EGFR (BEAKER) (test himg=5436) 15 mL/min/1.73 sq m ESTIMATED GFR IS NOT ACCURATE CREATININE CLEARANCE IN PREDICTING GLOMERULAR FILTRATION RATE. ESTIMATED GFR IS NOT APPLICABLE FOR DIALYSIS PATIENTS. [id number] 02:12:00* Test Item Value Reference Range Comments PHOSPHORUS (BEAKER) (test fmjr=393) 5.1 mg/dL 2.5-4.5 CBC W/PLT COUNT & AUTO [id number] 01:57:00* Test Item Value Reference Range Comments WHITE BLOOD CELL COUNT (BEAKER) (test bmso=945) 9.4 K/ L 4.0-10.0 RED BLOOD CELL COUNT (BEAKER) (test szrp=380) 3.22 M/ L 4.00-5.00 HEMOGLOBIN (BEAKER) (test hbdj=516) 8.9 GM/DL 12.0-15.0 HEMATOCRIT (BEAKER) (test nqvx=542) 27.9 % 36.0-45.0 MEAN CORPUSCULAR VOLUME (BEAKER) (test zlte=354) 86.6 fL 82.0-99.0 MEAN CORPUSCULAR HEMOGLOBIN (BEAKER) (test trcw=064) 27.7 pg 27.0-33.0 MEAN CORPUSCULAR HEMOGLOBIN CONC (BEAKER) (test tstq=193) 31.9 GM/DL 32.0- 36.0 RED CELL DISTRIBUTION WIDTH (BEAKER) (test rrzt=929) 15.3 % 10.3-14.2 PLATELET COUNT (BEAKER) (test dmvd=363) 294 K/CU MM 150-430 MEAN PLATELET VOLUME (BEAKER) (test hacw=840) 7.0 fL 6.5-10.5 NUCLEATED RED BLOOD CELLS (BEAKER) (test zoly=912) 0 /100 WBC 0-0 NEUTROPHILS RELATIVE PERCENT (BEAKER) (test trqv=320) 64 % LYMPHOCYTES RELATIVE PERCENT (BEAKER) (test gaga=879) 24 % MONOCYTES RELATIVE PERCENT (BEAKER) (test akjg=812) 5 % EOSINOPHILS RELATIVE PERCENT (BEAKER) (test wgzw=656) 6 % BASOPHILS RELATIVE PERCENT (BEAKER) (test ymnh=598) 1 % NEUTROPHILS ABSOLUTE COUNT (BEAKER) (test zvna=579) 6.10 K/ L 1.80-8.00 LYMPHOCYTES ABSOLUTE COUNT (BEAKER) (test iwet=812) 2.30 K/ L 1.48-4.50 MONOCYTES ABSOLUTE COUNT (BEAKER) (test illf=355) 0.50 K/ L 0.00-1.30 EOSINOPHILS ABSOLUTE COUNT (BEAKER) (test ddgd=470) 0.50 K/ L 0.00-0.50 BASOPHILS ABSOLUTE COUNT (BEAKER) (test gjic=421) 0.10 K/ L 0.00-0.20 POCT-GLUCOSE [id number] 01:38:00* Test Item Value Reference Range Comments POC-GLUCOSE METER (BEAKER) (test tiyo=4783) 45 mg/dL 70-110 TESTED AT [address] [address] POCT-GLUCOSE [id number] 00:28:00* Test Item Value Reference Range Comments POC-GLUCOSE METER (BEAKER) (test czpw=0900) 69 mg/dL 70-110 TESTED AT [address] [address] POCT-GLUCOSE [id number] 22:42:00* Test Item Value Reference Range Comments POC-GLUCOSE METER (BEAKER) (test hrfa=6162) 61 mg/dL 70-110 TESTED AT [address] [address] POCT-GLUCOSE [id number] 21:30:00* Test Item Value Reference Range Comments POC-GLUCOSE METER (BEAKER) (test kzwk=8496) 82 mg/dL 70-110 TESTED AT [facility] [address] [facility] [address] POCT-GLUCOSE [id number] 21:05:00* Test Item Value Reference Range Comments POC-GLUCOSE METER (BEAKER) (test zphu=4893) 38 mg/dL 70-110 TESTED AT [facility] [address] [facility] [address] PROTEIN, RANDOM [id number] 20:07:00* Test Item Value Reference Range Comments PROTEIN, URINE (BEAKER) (test fysv=3200) 491 mg/dL 0-14 URINALYSIS W/ REFLEX URINE [id number] 19:34:00* Test Item Value Reference Range Comments COLOR (BEAKER) (test aytd=029) Yellow CLARITY (BEAKER) (test dgzy=269) Clear SPECIFIC GRAVITY UA (BEAKER) (test yunp=311) 1.020 1.001-1.035 PH UA (BEAKER) (test xksr=350) 6.5 5.0-8.0 PROTEIN UA (BEAKER) (test cdhd=578) >=300 mg/dL Negative GLUCOSE UA (BEAKER) (test fqib=399) 100 mg/dL Negative KETONES UA (BEAKER) (test cewj=906) Negative Negative BILIRUBIN UA (BEAKER) (test wuya=726) Negative Negative BLOOD UA (BEAKER) (test gjvn=412) Small Negative NITRITE UA (BEAKER) (test mrxd=365) Negative Negative LEUKOCYTE ESTERASE UA (BEAKER) (test cnss=869) Negative Negative UROBILINOGEN UA (BEAKER) (test vimn=053) 0.2 mg/dL 0.2-1.0 BACTERIA (BEAKER) (test jnlc=860) Occasional RBC UA-MANUAL (BEAKER) (test rdla=8178) 5-10 /HPF WBC UA-MANUAL (BEAKER) (test srpv=4774) <5 /HPF SQUAMOUS EPITHELIAL MANUAL (BEAKER) (test nxna=1462) <5 /HPF SOURCE(BEAKER) (test xdcj=3821) CREATININE, RANDOM [id number] 19:34:00* Test Item Value Reference Range Comments CREATININE URINE (BEAKER) (test lfml=142) 37.2 mg/dL Reference Range: No NormalsPOCT-GLUCOSE [id number] 17:10:00* Test Item Value Reference Range Comments POC-GLUCOSE METER (BEAKER) (test skyi=4271) 101 mg/dL 70-110 TESTED AT [facility] [address] [facility] [address] POCT-GLUCOSE [id number] 11:59:00* Test Item Value Reference Range Comments POC-GLUCOSE METER (BEAKER) (test grvg=1531) 190 mg/dL 70-110 TESTED AT [facility] [address] [facility] [address] HEPATITIS B SURFACE [id number] 11:42:00* Test Item Value Reference Range Comments HEPATITIS B SURFACE ANTIGEN (2) (BEAKER) (test wccr=4312) Nonreactive Nonreactive COMPREHENSIVE METABOLIC [id number] 11:32:00* Test Item Value Reference Range Comments TOTAL PROTEIN (BEAKER) (test bajj=449) 4.6 gm/dL 6.0-8.5 ALBUMIN (BEAKER) (test elrx=1874) 1.9 g/dL 3.5-5.0 ALKALINE PHOSPHATASE (BEAKER) (test gjgg=046) 93 U/L 30-115 BILIRUBIN TOTAL (BEAKER) (test xcfi=578) < mg/dL 0.1-1.2 SODIUM (BEAKER) (test tjeb=282) 139 meq/L 135-148 POTASSIUM (BEAKER) (test jcoq=843) 4.3 meq/L 3.6-5.5 CHLORIDE (BEAKER) (test kgll=609) 117 meq/L 98-106 CO2 (BEAKER) (test zibk=009) 14 meq/L 20-29 BLOOD UREA NITROGEN (BEAKER) (test ljwp=984) 40 mg/dL 10-26 CREATININE (BEAKER) (test wzkg=079) 4.10 mg/dL 0.50-1.20 GLUCOSE RANDOM (BEAKER) (test whqo=166) 146 mg/dL 70-110 CALCIUM (BEAKER) (test fsen=624) 7.3 mg/dL 8.5-10.5 AST (SGOT) (BEAKER) (test imca=323) 12 U/L 5-40 ALT (SGPT) (BEAKER) (test njfg=489) 18 U/L 5-50 EGFR (BEAKER) (test moqb=7324) 16 mL/min/1.73 sq m ESTIMATED GFR IS NOT ACCURATE CREATININE CLEARANCE IN PREDICTING GLOMERULAR FILTRATION RATE. ESTIMATED GFR IS NOT APPLICABLE FOR DIALYSIS PATIENTS. [id number] 11:31:00* Test Item Value Reference Range Comments PHOSPHORUS (BEAKER) (test jdfa=689) 4.9 mg/dL 2.5-4.5 [id number] 11:26:00* Test Item Value Reference Range Comments MAGNESIUM (BEAKER) (test atfl=468) 1.3 mg/dL 1.5-3.0 POCT-GLUCOSE [id number] 06:46:00* Test Item Value Reference Range Comments POC-GLUCOSE METER (BEAKER) (test zpju=8312) 98 mg/dL 70-110 TESTED AT [address] [address] POCT-GLUCOSE [id number] 01:17:00* Test Item Value Reference Range Comments POC-GLUCOSE METER (BEAKER) (test krfb=0198) 101 mg/dL 70-110 TESTED AT [address] [address] URINALYSIS W/ [id number] 01:14:00* Test Item Value Reference Range Comments COLOR (BEAKER) (test xvmg=210) Yellow CLARITY (BEAKER) (test uwod=244) Clear SPECIFIC GRAVITY UA (BEAKER) (test yfow=799) 1.015 1.001-1.035 PH UA (BEAKER) (test ldsu=443) 7.0 5.0-8.0 PROTEIN UA (BEAKER) (test sleo=889) >=300 mg/dL Negative GLUCOSE UA (BEAKER) (test ejdl=086) 500 mg/dL Negative KETONES UA (BEAKER) (test bekt=057) Negative Negative BILIRUBIN UA (BEAKER) (test rihl=912) Negative Negative BLOOD UA (BEAKER) (test aryo=365) Moderate Negative NITRITE UA (BEAKER) (test ftjc=879) Negative Negative LEUKOCYTE ESTERASE UA (BEAKER) (test ohrk=941) Negative Negative UROBILINOGEN UA (BEAKER) (test eidp=374) 0.2 mg/dL 0.2-1.0 BACTERIA (BEAKER) (test ijlk=728) Few MUCUS (BEAKER) (test ajtb=7951) Few RBC UA-MANUAL (BEAKER) (test uohl=6600) 5-10 /HPF WBC UA-MANUAL (BEAKER) (test bchg=2430) <5 /HPF SQUAMOUS EPITHELIAL MANUAL (BEAKER) (test larp=1024) 20-50 /HPF SOURCE(BEAKER) (test lryg=1119) SCREEN, [id number] 00:53:00* Test Item Value Reference Range Comments TEST URINE (BEAKER) (test hxqh=503) Positive PROTHROMBIN TIME/[id number] 22:47:00* Test Item Value Reference Range Comments PROTIME (BEAKER) (test bdup=773) 10.1 seconds 9.3-12.0 INR (BEAKER) (test udut=000) 1.0 <=5.9 RECOMMENDED COUMADIN/WARFARIN INR THERAPY RANGESSTANDARD DOSE: 2.0 - 3.0 Includes: PROPHYLAXIS for venous thrombosis, systemic embolization; TREATMENT for venous thrombosis and/or pulmonary embolus.HIGH RISK: Target INR is 2.5-3.5 for patients with mechanical heart valves.CBC W/PLT COUNT & AUTO [id number] 22:15:00* Test Item Value Reference Range Comments WHITE BLOOD CELL COUNT (BEAKER) (test izha=272) 13.2 K/ L 4.0-10.0 RED BLOOD CELL COUNT (BEAKER) (test sabt=311) 3.44 M/ L 4.00-5.00 HEMOGLOBIN (BEAKER) (test povk=298) 9.5 GM/DL 12.0-15.0 HEMATOCRIT (BEAKER) (test dfmj=819) 29.9 % 36.0-45.0 MEAN CORPUSCULAR VOLUME (BEAKER) (test xnae=307) 86.8 fL 82.0-99.0 MEAN CORPUSCULAR HEMOGLOBIN (BEAKER) (test mwwx=933) 27.5 pg 27.0-33.0 MEAN CORPUSCULAR HEMOGLOBIN CONC (BEAKER) (test ggjq=988) 31.7 GM/DL 32.0- 36.0 RED CELL DISTRIBUTION WIDTH (BEAKER) (test hycb=930) 15.2 % 10.3-14.2 PLATELET COUNT (BEAKER) (test aiqo=841) 289 K/CU MM 150-430 MEAN PLATELET VOLUME (BEAKER) (test xgzx=882) 7.1 fL 6.5-10.5 (MANUAL DIFFERENTIAL)2016-12-30 22:15:00* Test Item Value Reference Range Comments NEUTROPHILS - REL (DIFF) (BEAKER) (test uics=0125) 76 % LYMPHOCYTES - REL (DIFF) (BEAKER) (test zded=8335) 22 % MONOCYTES - REL (DIFF) (BEAKER) (test iihr=5325) 1 % EOSINOPHILS - REL (DIFF) (BEAKER) (test uutd=3570) 1 % NEUTROPHILS - ABS (DIFF) (BEAKER) (test wrtc=5515) 10.03 K/ L 1.80-8.00 LYMPHOCYTES - ABS (DIFF) (BEAKER) (test ktla=9312) 2.90 K/ L 1.48-4.50 MONOCYTES - ABS (DIFF) (BEAKER) (test sttg=0933) 0.13 K/ L 0.00-1.30 EOSINOPHILS - ABS (DIFF) (BEAKER) (test xzzj=1581) 0.13 K/ L 0.00-0.50 TOTAL COUNTED (BEAKER) (test rnxm=7017) 100 WBC MORPHOLOGY (BEAKER) (test qdpa=817) Normal PLT MORPHOLOGY (BEAKER) (test owkg=191) Normal RBC MORPHOLOGY (BEAKER) (test ptus=782) Normal COMPREHENSIVE METABOLIC [id number] 22:06:00* Test Item Value Reference Range Comments TOTAL PROTEIN (BEAKER) (test mvcv=880) 5.1 gm/dL 6.0-8.5 ALBUMIN (BEAKER) (test qakg=2491) 2.1 g/dL 3.5-5.0 ALKALINE PHOSPHATASE (BEAKER) (test ltbm=290) 113 U/L 30-115 BILIRUBIN TOTAL (BEAKER) (test uedz=370) < mg/dL 0.1-1.2 SODIUM (BEAKER) (test kedb=009) 140 meq/L 135-148 POTASSIUM (BEAKER) (test ofbr=721) 4.3 meq/L 3.6-5.5 CHLORIDE (BEAKER) (test zyof=612) 116 meq/L 98-106 CO2 (BEAKER) (test svms=303) 14 meq/L 20-29 BLOOD UREA NITROGEN (BEAKER) (test dcce=610) 45 mg/dL 10-26 CREATININE (BEAKER) (test zwuc=183) 4.50 mg/dL 0.50-1.20 GLUCOSE RANDOM (JIM) (test wksw=324) 184 mg/dL 70-110 CALCIUM (NEFTALIAKER) (test zqjc=729) 7.2 mg/dL 8.5-10.5 AST (SGOT) (NEFTALIAKER) (test zfgg=474) 17 U/L 5-40 ALT (SGPT) (JIM) (test kmnv=758) 22 U/L 5-50 EGFR (JIM) (test rxvq=7258) 14 mL/min/1.73 sq m ESTIMATED GFR IS NOT ACCURATE CREATININE CLEARANCE IN PREDICTING GLOMERULAR FILTRATION RATE. ESTIMATED GFR IS NOT APPLICABLE FOR DIALYSIS PATIENTS. [id number] 21:59:00* Test Item Value Reference Range Comments LIPASE (JIM) (test yxxo=946) 48 U/L 6-51 CARDIOLIPIN ANTIBODIES, IGG AND [id number] 12:42:00* Test Item Value Reference Range Comments ANTICARDIOLIPIN IGG ANTIBODY (JIM) (test wfcn=569) < GPL This is a corrected result. Previous result was <0.2 GPL on 10/28/2016 at 0920 CDT ANTICARDIOLIPIN IGM ANTIBODY (JIM) (test wyqz=339) < MPL This is a corrected result. Previous result was <1.6 MPL on 10/28/2016 at 0920 CDT Anticardiolipin IgG Result Interpretation:NEG: <20 GPL; U/mlPOS: >/=20 GPL; U/mlAnticardiolipin IgM Result Interpretation:NEG: <20 MPL; U/mlPOS: >/=20 MPL; U/mlPOCT-GLUCOSE [id number] 16:17:00* Test Item Value Reference Range Comments POC-GLUCOSE METER (JIM) (test wxag=6545) 41 mg/dL 70-110 TESTED AT [facility] [address] [place] [address] ANTI-NUCLEAR ANTIBODY (PHILOMENA)2016-10-28 13:07:00* Test Item Value Reference Range Comments ANTI-NUCLEAR ANTIBODY (PHILOMENA) (JIM) (test inei=080) Negative Negative POCT-GLUCOSE [id number] 12:33:00* Test Item Value Reference Range Comments POC-GLUCOSE METER (JIM) (test twva=8028) 111 mg/dL 70-110 TESTED AT [facility] [address] [facility] [address] [place] [facility] [facility] (DRVV)2016-10-28 12:05:00* Test Item Value Reference Range Comments PROTIME (BEAKER) (test zjdn=607) 12.7 seconds 11.7-14.7 INR (BEAKER) (test xtsa=249) 1.0 <=5.9 PARTIAL THROMBOPLASTIN TIME (BEAKER) (test kvpk=022) 60.6 seconds 22.5-36.0 DRVV INTERPRETATION (BEAKER) (test peqi=3576) Prolonged PTT Results DRVV INTERPRETATION (BEAKER) (test yaao=089951) Normal DRVV Results DRVV INTERPRETATION (BEAKER) (test ulno=559590) Negative screen for Lupus Anticoagulant PUGS-UAZCVHICNTA-280 (BEAKER) (test pwln=3271) Nieves Iraheta MD (electronic signature) DRVV SCREEN RATIO (BEAKER) (test nfjn=1432) 0.98 <1.20 Normal thrombin time. Prolonged PTT did not correct with 1:1 mix. Effective 2013: Test Method ChangeDRVV Screen Ratio, DRVV 1/1 Screen Ratio, DRVV Confirm Ratio,DRVV Normalized Ratio Reference Range: <1.2Protime Reference Range ChangeNew: 11.7-14.7 Previous: 9.8-12.0PTT Reference Range ChangeNew: 22.5- 36.0 Previous: 25.8-34.5POCT-GLUCOSE [id number] 08:31:00* Test Item Value Reference Range Comments POC-GLUCOSE METER (BEAKER) (test kgia=0349) 171 mg/dL 70-110 TESTED AT [facility] [address] [facility] [address] BASIC METABOLIC [id number] 05:23:00* Test Item Value Reference Range Comments SODIUM (BEAKER) (test sjec=819) 137 meq/L 135-148 POTASSIUM (BEAKER) (test hedp=339) 4.6 meq/L 3.6-5.5 CHLORIDE (BEAKER) (test sxab=827) 113 meq/L 98-106 CO2 (BEAKER) (test ipjg=741) 17 meq/L 20-29 BLOOD UREA NITROGEN (BEAKER) (test aygr=688) 25 mg/dL 10-26 CREATININE (BEAKER) (test oqyn=633) 2.90 mg/dL 0.50-1.20 GLUCOSE RANDOM (BEAKER) (test fvxr=791) 181 mg/dL 70-110 CALCIUM (BEAKER) (test kyvi=596) 7.0 mg/dL 8.5-10.5 EGFR (BEAKER) (test ptpj=1043) 24 mL/min/1.73 sq m ESTIMATED GFR IS NOT ACCURATE CREATININE CLEARANCE IN PREDICTING GLOMERULAR FILTRATION RATE. ESTIMATED GFR IS NOT APPLICABLE FOR DIALYSIS PATIENTS. POCT-GLUCOSE [id number] 21:05:00* Test Item Value Reference Range Comments POC-GLUCOSE METER (BEAKER) (test jeas=3609) 113 mg/dL 70-110 TESTED AT [facility] [address] [place], [place] [address] POCT-GLUCOSE [id number] 16:17:00* Test Item Value Reference Range Comments POC-GLUCOSE METER (BEAKER) (test lqjb=5463) 181 mg/dL 70-110 TESTED AT [facility] [address] [place] [address] POCT-GLUCOSE [id number] 12:54:00* Test Item Value Reference Range Comments POC-GLUCOSE METER (BEAKER) (test ghun=3989) 104 mg/dL 70-110 TESTED AT [address] [address] IRON, TIBC, % SAT. (WITHOUT FERRITIN)2016-10-27 12:53:00* Test Item Value Reference Range Comments IRON (BEAKER) (test rjmu=380) 59 ug/dL 40-160 TOTAL IRON BINDING CAPACITY (BEAKER) (test fzqh=536) 151 ug/dL 250-450 IRON % SATURATION (2) (BEAKER) (test lhev=8131) 39 % 20-55 POCT-GLUCOSE [id number] 08:37:00* Test Item Value Reference Range Comments POC-GLUCOSE METER (BEAKER) (test dfxf=7615) 180 mg/dL 70-110 TESTED AT [facility] [address] [place] [address] BASIC METABOLIC [id number] 06:04:00* Test Item Value Reference Range Comments SODIUM (BEAKER) (test bdzn=552) 139 meq/L 135-148 POTASSIUM (BEAKER) (test inmr=074) 4.8 meq/L 3.6-5.5 CHLORIDE (BEAKER) (test fbes=793) 114 meq/L 98-106 CO2 (BEAKER) (test csls=506) 17 meq/L 20-29 BLOOD UREA NITROGEN (BEAKER) (test ntos=934) 24 mg/dL 10-26 CREATININE (BEAKER) (test qbcc=713) 3.00 mg/dL 0.50-1.20 GLUCOSE RANDOM (BEAKER) (test xuoz=747) 182 mg/dL 70-110 CALCIUM (BEAKER) (test qbav=648) 6.5 mg/dL 8.5-10.5 EGFR (BEAKER) (test huet=0711) 23 mL/min/1.73 sq m ESTIMATED GFR IS NOT ACCURATE CREATININE CLEARANCE IN PREDICTING GLOMERULAR FILTRATION RATE. ESTIMATED GFR IS NOT APPLICABLE FOR DIALYSIS PATIENTS. POCT-GLUCOSE [id number] 00:51:00* Test Item Value Reference Range Comments POC-GLUCOSE METER (BEAKER) (test fvfp=0912) 150 mg/dL 70-110 TESTED AT [address] [address] POCT-GLUCOSE [id number] 21:17:00* Test Item Value Reference Range Comments POC-GLUCOSE METER (BEAKER) (test gqmo=3265) 214 mg/dL 70-110 TESTED AT [address] [address] POCT-GLUCOSE [id number] 20:04:00* Test Item Value Reference Range Comments POC-GLUCOSE METER (BEAKER) (test fqkz=1636) 71 mg/dL 70-110 TESTED AT [place] [address] [facility] [address] POCT-GLUCOSE [id number] 16:39:00* Test Item Value Reference Range Comments POC-GLUCOSE METER (BEAKER) (test ickn=5987) 46 mg/dL 70-110 TESTED AT [address] [address] POCT-GLUCOSE [id number] 12:38:00* Test Item Value Reference Range Comments POC-GLUCOSE METER (BEAKER) (test mkzw=1878) 167 mg/dL 70-110 TESTED AT [facility] [address] [facility] [address] POCT-GLUCOSE [id number] 08:42:00* Test Item Value Reference Range Comments POC-GLUCOSE METER (AKER) (test jzyi=0809) 121 mg/dL 70-110 TESTED AT [facility] [address] [facility] [address] COMPREHENSIVE METABOLIC [id number] 06:13:00* Test Item Value Reference Range Comments TOTAL PROTEIN (BEAKER) (test idcx=388) 4.4 gm/dL 6.0-8.5 ALBUMIN (BEAKER) (test pfbe=5655) 1.8 g/dL 3.5-5.0 ALKALINE PHOSPHATASE (BEAKER) (test qxyx=441) 82 U/L 30-115 BILIRUBIN TOTAL (BEAKER) (test mhly=053) < mg/dL 0.1-1.2 SODIUM (BEAKER) (test mdsb=278) 140 meq/L 135-148 POTASSIUM (BEAKER) (test huuf=565) 4.1 meq/L 3.6-5.5 CHLORIDE (BEAKER) (test nydd=059) 119 meq/L 98-106 CO2 (BEAKER) (test voze=584) 14 meq/L 20-29 BLOOD UREA NITROGEN (BEAKER) (test fmcb=954) 24 mg/dL 10-26 CREATININE (BEAKER) (test khls=466) 3.10 mg/dL 0.50-1.20 GLUCOSE RANDOM (BEAKER) (test xfkx=269) 89 mg/dL 70-110 CALCIUM (BEAKER) (test ighb=405) 7.0 mg/dL 8.5-10.5 AST (SGOT) (BEAKER) (test jbqr=934) 11 U/L 5-40 ALT (SGPT) (BEAKER) (test pbof=682) 8 U/L 5-50 EGFR (BEAKER) (test zioy=8633) 22 mL/min/1.73 sq m ESTIMATED GFR IS NOT ACCURATE CREATININE CLEARANCE IN PREDICTING GLOMERULAR FILTRATION RATE. ESTIMATED GFR IS NOT APPLICABLE FOR DIALYSIS PATIENTS. CBC W/PLT COUNT & AUTO [id number] 05:35:00* Test Item Value Reference Range Comments WHITE BLOOD CELL COUNT (BEAKER) (test ccdv=280) 8.3 K/ L 4.0-10.0 RED BLOOD CELL COUNT (BEAKER) (test yjvq=759) 2.83 M/ L 4.00-5.00 HEMOGLOBIN (BEAKER) (test pygf=822) 8.0 GM/DL 12.0-15.0 HEMATOCRIT (BEAKER) (test sbfp=753) 24.9 % 36.0-45.0 MEAN CORPUSCULAR VOLUME (BEAKER) (test hcun=679) 87.8 fL 82.0-99.0 MEAN CORPUSCULAR HEMOGLOBIN (BEAKER) (test rvip=247) 28.4 pg 27.0-33.0 MEAN CORPUSCULAR HEMOGLOBIN CONC (BEAKER) (test jbpr=889) 32.3 GM/DL 32.0- 36.0 RED CELL DISTRIBUTION WIDTH (BEAKER) (test sncq=133) 13.6 % 10.3-14.2 PLATELET COUNT (BEAKER) (test fyis=370) 215 K/CU MM 150-430 MEAN PLATELET VOLUME (BEAKER) (test mwwg=496) 7.2 fL 6.5-10.5 NUCLEATED RED BLOOD CELLS (BEAKER) (test muit=766) 0 /100 WBC 0-0 NEUTROPHILS RELATIVE PERCENT (BEAKER) (test ypvs=739) 76 % LYMPHOCYTES RELATIVE PERCENT (BEAKER) (test qhqi=516) 18 % MONOCYTES RELATIVE PERCENT (BEAKER) (test hkzz=625) 4 % EOSINOPHILS RELATIVE PERCENT (BEAKER) (test lsdp=269) 1 % BASOPHILS RELATIVE PERCENT (BEAKER) (test nviw=071) 0 % NEUTROPHILS ABSOLUTE COUNT (BEAKER) (test kfet=227) 6.30 K/ L 1.80-8.00 LYMPHOCYTES ABSOLUTE COUNT (BEAKER) (test xvdh=855) 1.50 K/ L 1.48-4.50 MONOCYTES ABSOLUTE COUNT (BEAKER) (test odmv=969) 0.30 K/ L 0.00-1.30 EOSINOPHILS ABSOLUTE COUNT (BEAKER) (test ahxw=466) 0.10 K/ L 0.00-0.50 BASOPHILS ABSOLUTE COUNT (BEAKER) (test rrnj=674) 0.00 K/ L 0.00-0.20 POCT-GLUCOSE [id number] 21:00:00* Test Item Value Reference Range Comments POC-GLUCOSE METER (BEAKER) (test kqvx=8771) 127 mg/dL 70-110 TESTED AT [facility] [address] [facility] [address] POCT-GLUCOSE [id number] 16:38:00* Test Item Value Reference Range Comments POC-GLUCOSE METER (BEAKER) (test lidm=1935) 126 mg/dL 70-110 TESTED AT [facility] [address] [facility] [address] POCT-GLUCOSE [id number] 12:11:00* Test Item Value Reference Range Comments POC-GLUCOSE METER (BEAKER) (test eidd=1015) 255 mg/dL 70-110 TESTED AT [facility] [address] [facility] [address] BASIC METABOLIC [id number] 07:14:00* Test Item Value Reference Range Comments SODIUM (BEAKER) (test txcr=545) 137 meq/L 135-148 POTASSIUM (BEAKER) (test bwxb=225) 4.6 meq/L 3.6-5.5 CHLORIDE (BEAKER) (test wjho=041) 117 meq/L 98-106 CO2 (BEAKER) (test uspg=116) 12 meq/L 20-29 BLOOD UREA NITROGEN (BEAKER) (test mahk=010) 27 mg/dL 10-26 CREATININE (BEAKER) (test deer=031) 3.00 mg/dL 0.50-1.20 GLUCOSE RANDOM (BEAKER) (test haiv=769) 239 mg/dL 70-110 CALCIUM (BEAKER) (test nejx=429) 7.5 mg/dL 8.5-10.5 EGFR (BEAKER) (test qhlv=7097) 23 mL/min/1.73 sq m ESTIMATED GFR IS NOT ACCURATE CREATININE CLEARANCE IN PREDICTING GLOMERULAR FILTRATION RATE. ESTIMATED GFR IS NOT APPLICABLE FOR DIALYSIS PATIENTS. CBC W/PLT COUNT & AUTO [id number] 07:00:00* Test Item Value Reference Range Comments WHITE BLOOD CELL COUNT (BEAKER) (test zffl=043) 8.9 K/ L 4.0-10.0 RED BLOOD CELL COUNT (BEAKER) (test oxtz=290) 3.15 M/ L 4.00-5.00 HEMOGLOBIN (BEAKER) (test hfot=470) 8.9 GM/DL 12.0-15.0 HEMATOCRIT (BEAKER) (test aehf=982) 27.2 % 36.0-45.0 MEAN CORPUSCULAR VOLUME (BEAKER) (test fvub=615) 86.4 fL 82.0-99.0 MEAN CORPUSCULAR HEMOGLOBIN (BEAKER) (test nrvr=948) 28.4 pg 27.0-33.0 MEAN CORPUSCULAR HEMOGLOBIN CONC (BEAKER) (test lmew=889) 32.9 GM/DL 32.0- 36.0 RED CELL DISTRIBUTION WIDTH (BEAKER) (test qhid=762) 13.7 % 10.3-14.2 PLATELET COUNT (BEAKER) (test owvc=521) 243 K/CU MM 150-430 MEAN PLATELET VOLUME (BEAKER) (test bwwc=398) 7.6 fL 6.5-10.5 NUCLEATED RED BLOOD CELLS (BEAKER) (test qtff=683) 0 /100 WBC 0-0 NEUTROPHILS RELATIVE PERCENT (BEAKER) (test rlgj=849) 86 % LYMPHOCYTES RELATIVE PERCENT (BEAKER) (test tunv=571) 10 % MONOCYTES RELATIVE PERCENT (BEAKER) (test erho=598) 4 % EOSINOPHILS RELATIVE PERCENT (BEAKER) (test zslg=676) 0 % BASOPHILS RELATIVE PERCENT (BEAKER) (test eibd=434) 0 % NEUTROPHILS ABSOLUTE COUNT (BEAKER) (test mrfa=803) 7.60 K/ L 1.80-8.00 LYMPHOCYTES ABSOLUTE COUNT (BEAKER) (test hdts=395) 0.90 K/ L 1.48-4.50 MONOCYTES ABSOLUTE COUNT (BEAKER) (test ildb=122) 0.30 K/ L 0.00-1.30 EOSINOPHILS ABSOLUTE COUNT (BEAKER) (test ndov=437) 0.00 K/ L 0.00-0.50 BASOPHILS ABSOLUTE COUNT (BEAKER) (test exff=060) 0.00 K/ L 0.00-0.20 POCT-GLUCOSE [id number] 06:22:00* Test Item Value Reference Range Comments POC-GLUCOSE METER (BEAKER) (test anpb=0083) 284 mg/dL 70-110 TESTED AT [address] [address] POCT-GLUCOSE [id number] 21:54:00* Test Item Value Reference Range Comments POC-GLUCOSE METER (BEAKER) (test frzq=9285) 359 mg/dL 70-110 Notified ALICJA BECKFORD/ TESTED AT [facility] [address] [facility] [address] URINALYSIS W/ [id number] 18:01:00* Test Item Value Reference Range Comments COLOR (BEAKER) (test ipdk=863) Yellow CLARITY (BEAKER) (test odhk=875) Clear SPECIFIC GRAVITY UA (BEAKER) (test hfzz=205) 1.020 1.001-1.035 PH UA (BEAKER) (test wbmf=900) 7.0 5.0-8.0 PROTEIN UA (BEAKER) (test cydz=681) >=300 mg/dL Negative GLUCOSE UA (BEAKER) (test uxip=775) 250 mg/dL Negative KETONES UA (BEAKER) (test gxsx=245) Trace Negative BILIRUBIN UA (BEAKER) (test rqvk=419) Negative Negative BLOOD UA (BEAKER) (test zuzh=562) Moderate Negative NITRITE UA (BEAKER) (test gzkj=433) Negative Negative LEUKOCYTE ESTERASE UA (BEAKER) (test xbsw=260) Trace Negative UROBILINOGEN UA (BEAKER) (test duqy=479) 0.2 mg/dL 0.2-1.0 BACTERIA (BEAKER) (test pefa=583) Few RBC UA-MANUAL (BEAKER) (test zlqo=0688) 10-20 /HPF WBC UA-MANUAL (BEAKER) (test ulif=0063) <5 /HPF SQUAMOUS EPITHELIAL MANUAL (BEAKER) (test dtrj=0795) 5-10 /HPF SOURCE(BEAKER) (test xolb=3654) HCG, QUANTITATIVE, [id number] 16:06:00* Test Item Value Reference Range Comments GONADOTROPIN, CHORIONIC (HCG) QUANT (BEAKER) (test hjud=428) [address] mIU/mL 0- 10 Non- Females: <10 mIU/mL Females: Gestation Age Reference Range(mIU/mL) 0.2-1 Week 5-50 1-2 Weeks 50-500 2-3 Weeks 100-5,000 3-4 Weeks 500-10,000 4-5 Weeks 1,000-50,000 5-6 Weeks 10,000-100,000 6-8 Weeks 15,000-200,000 2-3 Months 10,000-100,000 TROPONIN [id number] 15:27:00* Test Item Value Reference Range Comments TROPONIN I (BEAKER) (test gcah=993) < ng/mL 0.00-0.15 Troponin I (TnI) levels must be interpreted in the context of the presenting symptoms and the clinical findings. Elevated TnI levels indicate myocardial damage, but are not specific for ischemic heart disease. Elevated TnI levels are seen in patients with other cardiac conditions (including myocarditis and congestive heart failure), and slight TnI elevations occur in patients with other conditions, including sepsis, renal failure, acidosis, acute neurological disease, and persistent tachyarrhythmia.CREATINE KINASE (CK), TOTAL AND [id number] 15:26:00* Test Item Value Reference Range Comments CREATINE KINASE TOTAL (BEAKER) (test ejca=745) 348 U/L 25-235 CREATINE KINASE-MB (BEAKER) (test oinv=014) 5.5 ng/mL 0.0-4.9 CREATINE KINASE-MB INDEX (BEAKER) (test gmqv=276) 1.6 % CK-MB Reference Range:<5 Normal5-10 Borderline>10 AbnormalBASIC METABOLIC [id number] 15:18:00* Test Item Value Reference Range Comments SODIUM (BEAKER) (test simj=175) 141 meq/L 135-148 POTASSIUM (BEAKER) (test ublm=787) 4.0 meq/L 3.6-5.5 CHLORIDE (BEAKER) (test dxll=364) 116 meq/L 98-106 CO2 (BEAKER) (test fybn=877) 13 meq/L 20-29 BLOOD UREA NITROGEN (BEAKER) (test fxeu=071) 24 mg/dL 10-26 CREATININE (BEAKER) (test yzey=980) 2.70 mg/dL 0.50-1.20 GLUCOSE RANDOM (BEAKER) (test vame=600) 147 mg/dL 70-110 CALCIUM (BEAKER) (test txdz=053) 8.2 mg/dL 8.5-10.5 EGFR (BEAKER) (test zejp=6736) 26 mL/min/1.73 sq m ESTIMATED GFR IS NOT ACCURATE CREATININE CLEARANCE IN PREDICTING GLOMERULAR FILTRATION RATE. ESTIMATED GFR IS NOT APPLICABLE FOR DIALYSIS PATIENTS. HEPATIC FUNCTION [id number] 15:18:00* Test Item Value Reference Range Comments TOTAL PROTEIN (BEAKER) (test ssku=220) 6.1 gm/dL 6.0-8.5 ALBUMIN (BEAKER) (test nsqk=8729) 2.5 g/dL 3.5-5.0 BILIRUBIN TOTAL (BEAKER) (test ujlj=419) 0.2 mg/dL 0.1-1.2 BILIRUBIN DIRECT (BEAKER) (test tzjo=162) 0.1 mg/dL 0.0-0.4 ALKALINE PHOSPHATASE (BEAKER) (test rkti=652) 120 U/L 30-115 AST (SGOT) (BEAKER) (test kwft=584) 13 U/L 5-40 ALT (SGPT) (BEAKER) (test gdzh=941) 13 U/L 5-50 [id number] 15:18:00* Test Item Value Reference Range Comments LIPASE (BEAKER) (test sstg=615) 17 U/L 6-51 B-TYPE NATRIURETIC FACTOR (BNP)2016-10-24 15:18:00* Test Item Value Reference Range Comments B-TYPE NATRIURETIC PEPTIDE (BEAKER) (test tqqm=344) 41 pg/mL 0-100 [id number] 15:12:00* Test Item Value Reference Range Comments PROTIME (BEAKER) (test woud=869) 9.6 seconds 9.3-12.0 INR (BEAKER) (test rsts=276) 0.9 <=5.9 PARTIAL THROMBOPLASTIN TIME (BEAKER) (test qgbf=359) 31.3 seconds 23.0-35.0 RECOMMENDED COUMADIN/WARFARIN INR THERAPY RANGESSTANDARD DOSE: 2.0 - 3.0 Includes: PROPHYLAXIS for venous thrombosis, systemic embolization; TREATMENT for venous thrombosis and/or pulmonary embolus.HIGH RISK: Target INR is 2.5-3.5 for patients with mechanical heart valves.[id number] 15:09:00* Test Item Value Reference Range Comments MAGNESIUM (BEAKER) (test pgsh=225) 1.6 mg/dL 1.5-3.0 CBC W/PLT COUNT & AUTO [id number] 14:57:00* Test Item Value Reference Range Comments WHITE BLOOD CELL COUNT (BEAKER) (test wlda=346) 10.3 K/ L 4.0-10.0 RED BLOOD CELL COUNT (BEAKER) (test hqlr=956) 3.77 M/ L 4.00-5.00 HEMOGLOBIN (BEAKER) (test jvdl=652) 10.7 GM/DL 12.0-15.0 HEMATOCRIT (BEAKER) (test qyfl=048) 32.7 % 36.0-45.0 MEAN CORPUSCULAR VOLUME (BEAKER) (test zgxg=625) 86.7 fL 82.0-99.0 MEAN CORPUSCULAR HEMOGLOBIN (BEAKER) (test imes=007) 28.4 pg 27.0-33.0 MEAN CORPUSCULAR HEMOGLOBIN CONC (BEAKER) (test hbsq=758) 32.8 GM/DL 32.0- 36.0 RED CELL DISTRIBUTION WIDTH (BEAKER) (test jgou=045) 13.2 % 10.3-14.2 PLATELET COUNT (BEAKER) (test eonk=446) 258 K/CU MM 150-430 MEAN PLATELET VOLUME (BEAKER) (test tylk=740) 7.5 fL 6.5-10.5 NUCLEATED RED BLOOD CELLS (BEAKER) (test kuoc=300) 0 /100 WBC 0-0 NEUTROPHILS RELATIVE PERCENT (BEAKER) (test hxqn=706) 76 % LYMPHOCYTES RELATIVE PERCENT (BEAKER) (test hvdt=903) 17 % MONOCYTES RELATIVE PERCENT (BEAKER) (test lyzo=655) 5 % EOSINOPHILS RELATIVE PERCENT (BEAKER) (test sbwu=420) 2 % BASOPHILS RELATIVE PERCENT (BEAKER) (test abnr=514) 0 % NEUTROPHILS ABSOLUTE COUNT (BEAKER) (test vndb=369) 7.90 K/ L 1.80-8.00 LYMPHOCYTES ABSOLUTE COUNT (BEAKER) (test skns=380) 1.70 K/ L 1.48-4.50 MONOCYTES ABSOLUTE COUNT (BEAKER) (test zoen=698) 0.50 K/ L 0.00-1.30 EOSINOPHILS ABSOLUTE COUNT (BEAKER) (test qovj=455) 0.20 K/ L 0.00-0.50 BASOPHILS ABSOLUTE COUNT (BEAKER) (test nuep=314) 0.00 K/ L 0.00-0.20 POCT-GLUCOSE [id number] 18:24:00* Test Item Value Reference Range Comments POC-GLUCOSE METER (BEAKER) (test yicj=3263) 100 mg/dL 70-110 TESTED AT [place] [address] [facility] [address] POCT-GLUCOSE [id number] 16:51:00* Test Item Value Reference Range Comments POC-GLUCOSE METER (BEAKER) (test avqj=3517) 84 mg/dL 70-110 TESTED AT [place] [address] [facility] [address] POCT-GLUCOSE [id number] 13:37:00* Test Item Value Reference Range Comments POC-GLUCOSE METER (BEAKER) (test caoj=5735) 164 mg/dL 70-110 TESTED AT [place] [address] [facility] [address] POCT-GLUCOSE [id number] 11:39:00* Test Item Value Reference Range Comments POC-GLUCOSE METER (BEAKER) (test auxg=9843) 215 mg/dL 70-110 TESTED AT [address] [address] POCT-GLUCOSE [id number] 11:16:00* Test Item Value Reference Range Comments POC-GLUCOSE METER (BEAKER) (test aypc=6346) 295 mg/dL 70-110 TESTED AT [place] [address] [facility] [address] POCT-GLUCOSE [id number] 08:20:00* Test Item Value Reference Range Comments POC-GLUCOSE METER (BEAKER) (test zast=2883) 175 mg/dL 70-110 TESTED AT [place] [address] [facility] [address] POCT-GLUCOSE [id number] 08:20:00* Test Item Value Reference Range Comments POC-GLUCOSE METER (BEAKER) (test egfy=9780) 70 mg/dL 70-110 TESTED AT [address] [address] COMPREHENSIVE METABOLIC [id number] 06:04:00* Test Item Value Reference Range Comments TOTAL PROTEIN (BEAKER) (test uhin=157) 5.0 gm/dL 6.0-8.5 ALBUMIN (BEAKER) (test epql=6979) 1.9 g/dL 3.5-5.0 ALKALINE PHOSPHATASE (BEAKER) (test cwkm=695) 90 U/L 30-115 BILIRUBIN TOTAL (BEAKER) (test drsd=825) < mg/dL 0.1-1.2 SODIUM (BEAKER) (test iwks=941) 137 meq/L 135-148 POTASSIUM (BEAKER) (test lwgi=642) 4.6 meq/L 3.6-5.5 CHLORIDE (BEAKER) (test ppzs=797) 109 meq/L 98-106 CO2 (BEAKER) (test adqi=702) 20 meq/L 20-29 BLOOD UREA NITROGEN (BEAKER) (test vkxm=122) 26 mg/dL 10-26 CREATININE (BEAKER) (test bwsa=306) 2.40 mg/dL 0.50-1.20 GLUCOSE RANDOM (BEAKER) (test kjab=635) 132 mg/dL 70-110 CALCIUM (BEAKER) (test bhiz=464) 7.8 mg/dL 8.5-10.5 AST (SGOT) (BEAKER) (test ysjo=048) 9 U/L 5-40 ALT (SGPT) (BEAKER) (test hyun=639) 10 U/L 5-50 EGFR (BEAKER) (test tnbg=5250) 30 mL/min/1.73 sq m ESTIMATED GFR IS NOT ACCURATE CREATININE CLEARANCE IN PREDICTING GLOMERULAR FILTRATION RATE. ESTIMATED GFR IS NOT APPLICABLE FOR DIALYSIS PATIENTS. [id number] 05:54:00* Test Item Value Reference Range Comments PHOSPHORUS (BEAKER) (test vpuk=133) 3.8 mg/dL 2.5-4.5 POCT-GLUCOSE [id number] 22:45:00* Test Item Value Reference Range Comments POC-GLUCOSE METER (BEAKER) (test qegk=6204) 90 mg/dL 70-110 TESTED AT [address] [address] POCT-GLUCOSE [id number] 20:46:00* Test Item Value Reference Range Comments POC-GLUCOSE METER (BEAKER) (test iaht=4853) 85 mg/dL 70-110 TESTED AT [address] [address] POCT-GLUCOSE [id number] 20:46:00* Test Item Value Reference Range Comments POC-GLUCOSE METER (BEAKER) (test pzjh=5101) 42 mg/dL 70-110 TESTED AT [address] [address] POCT-GLUCOSE [id number] 19:43:00* Test Item Value Reference Range Comments POC-GLUCOSE METER (BEAKER) (test exow=2880) 47 mg/dL 70-110 TESTED AT [address] [address] POCT-GLUCOSE [id number] 16:58:00* Test Item Value Reference Range Comments POC-GLUCOSE METER (BEAKER) (test fyil=6359) 231 mg/dL 70-110 TESTED AT [address] [address] POCT-GLUCOSE [id number] 14:07:00* Test Item Value Reference Range Comments POC-GLUCOSE METER (BEAKER) (test grzq=6669) 360 mg/dL 70-110 TESTED AT [address] [address] POCT-GLUCOSE [id number] 11:41:00* Test Item Value Reference Range Comments POC-GLUCOSE METER (BEAKER) (test jrcl=3696) 403 mg/dL 70-110 TESTED AT [address] [address] POCT-GLUCOSE [id number] 10:11:00* Test Item Value Reference Range Comments POC-GLUCOSE METER (BEAKER) (test vmix=7169) 359 mg/dL 70-110 TESTED AT [address] [address] POCT-GLUCOSE [id number] 08:14:00* Test Item Value Reference Range Comments POC-GLUCOSE METER (BEAKER) (test tlbl=0103) 124 mg/dL 70-110 TESTED AT [address] [address] POCT-GLUCOSE [id number] 06:44:00* Test Item Value Reference Range Comments POC-GLUCOSE METER (BEAKER) (test bbzc=0254) 96 mg/dL 70-110 TESTED AT [address] [address] COMPREHENSIVE METABOLIC [id number] 06:24:00* Test Item Value Reference Range Comments TOTAL PROTEIN (BEAKER) (test zpoo=330) 5.1 gm/dL 6.0-8.5 ALBUMIN (BEAKER) (test lbba=7238) 2.0 g/dL 3.5-5.0 ALKALINE PHOSPHATASE (BEAKER) (test olno=746) 93 U/L 30-115 BILIRUBIN TOTAL (BEAKER) (test iwsu=491) < mg/dL 0.1-1.2 SODIUM (BEAKER) (test edeg=522) 139 meq/L 135-148 POTASSIUM (BEAKER) (test krcw=759) 3.9 meq/L 3.6-5.5 CHLORIDE (BEAKER) (test aqqk=793) 114 meq/L 98-106 CO2 (BEAKER) (test hhdw=698) 19 meq/L 20-29 BLOOD UREA NITROGEN (BEAKER) (test bumc=926) 24 mg/dL 10-26 CREATININE (BEAKER) (test coxz=826) 2.30 mg/dL 0.50-1.20 GLUCOSE RANDOM (BEAKER) (test jnap=911) 66 mg/dL 70-110 CALCIUM (BEAKER) (test msjj=187) 7.6 mg/dL 8.5-10.5 AST (SGOT) (BEAKER) (test qqox=184) 10 U/L 5-40 ALT (SGPT) (BEAKER) (test uzkq=420) 10 U/L 5-50 EGFR (BEAKER) (test zchn=9857) 31 mL/min/1.73 sq m ESTIMATED GFR IS NOT ACCURATE CREATININE CLEARANCE IN PREDICTING GLOMERULAR FILTRATION RATE. ESTIMATED GFR IS NOT APPLICABLE FOR DIALYSIS PATIENTS. POCT-GLUCOSE [id number] 06:19:00* Test Item Value Reference Range Comments POC-GLUCOSE METER (BEAKER) (test qjrn=8428) 48 mg/dL 70-110 TESTED AT [address] [address] [id number] 06:08:00* Test Item Value Reference Range Comments PHOSPHORUS (BEAKER) (test qnhz=106) 3.4 mg/dL 2.5-4.5 CBC W/PLT COUNT & AUTO [id number] 06:05:00* Test Item Value Reference Range Comments WHITE BLOOD CELL COUNT (BEAKER) (test ydkq=210) 7.4 K/ L 4.0-10.0 RED BLOOD CELL COUNT (BEAKER) (test dspl=899) 3.31 M/ L 4.00-5.00 HEMOGLOBIN (BEAKER) (test sqzu=394) 9.5 GM/DL 12.0-15.0 HEMATOCRIT (BEAKER) (test ihwl=226) 28.9 % 36.0-45.0 MEAN CORPUSCULAR VOLUME (BEAKER) (test jovq=050) 87.3 fL 82.0-99.0 MEAN CORPUSCULAR HEMOGLOBIN (BEAKER) (test yycb=129) 28.8 pg 27.0-33.0 MEAN CORPUSCULAR HEMOGLOBIN CONC (BEAKER) (test tnba=923) 33.0 GM/DL 32.0- 36.0 RED CELL DISTRIBUTION WIDTH (BEAKER) (test nohb=703) 13.9 % 10.3-14.2 PLATELET COUNT (BEAKER) (test byhf=365) 251 K/CU MM 150-430 MEAN PLATELET VOLUME (BEAKER) (test lhga=556) 7.5 fL 6.5-10.5 NUCLEATED RED BLOOD CELLS (BEAKER) (test pxuc=348) 0 /100 WBC 0-0 NEUTROPHILS RELATIVE PERCENT (BEAKER) (test syym=474) 61 % LYMPHOCYTES RELATIVE PERCENT (BEAKER) (test yeie=884) 27 % MONOCYTES RELATIVE PERCENT (BEAKER) (test fxhy=335) 7 % EOSINOPHILS RELATIVE PERCENT (BEAKER) (test qihm=014) 5 % BASOPHILS RELATIVE PERCENT (BEAKER) (test kwsw=348) 1 % NEUTROPHILS ABSOLUTE COUNT (BEAKER) (test fvkl=627) 4.60 K/ L 1.80-8.00 LYMPHOCYTES ABSOLUTE COUNT (BEAKER) (test ntei=780) 2.00 K/ L 1.48-4.50 MONOCYTES ABSOLUTE COUNT (BEAKER) (test tzhx=873) 0.50 K/ L 0.00-1.30 EOSINOPHILS ABSOLUTE COUNT (BEAKER) (test jwns=842) 0.30 K/ L 0.00-0.50 BASOPHILS ABSOLUTE COUNT (BEAKER) (test vewz=919) 0.00 K/ L 0.00-0.20 POCT-GLUCOSE [id number] 20:58:00* Test Item Value Reference Range Comments POC-GLUCOSE METER (BEAKER) (test fwya=1072) 223 mg/dL 70-110 TESTED AT [facility] [address] [place] [address] POCT-GLUCOSE [id number] 17:08:00* Test Item Value Reference Range Comments POC-GLUCOSE METER (BEAKER) (test ilbb=5823) 68 mg/dL 70-110 TESTED AT [facility] [address] [facility] [address] POCT-GLUCOSE [id number] 13:22:00* Test Item Value Reference Range Comments POC-GLUCOSE METER (BEAKER) (test shub=2391) 235 mg/dL 70-110 TESTED AT [facility] [address] [facility] [address] POCT-GLUCOSE [id number] 12:29:00* Test Item Value Reference Range Comments POC-GLUCOSE METER (BEAKER) (test rpiq=9736) 191 mg/dL 70-110 TESTED AT [facility] [address] [facility] [address] POCT-GLUCOSE [id number] 09:31:00* Test Item Value Reference Range Comments POC-GLUCOSE METER (BEAKER) (test ntgr=4909) 176 mg/dL 70-110 TESTED AT [facility] [address] [facility] [address] CBC W/PLT COUNT & AUTO [id number] 06:52:00* Test Item Value Reference Range Comments WHITE BLOOD CELL COUNT (BEAKER) (test tzpx=943) 5.6 K/ L 4.0-10.0 RED BLOOD CELL COUNT (BEAKER) (test nsjw=496) 2.34 M/ L 4.00-5.00 HEMOGLOBIN (BEAKER) (test ilnl=265) 6.6 GM/DL 12.0-15.0 HEMATOCRIT (BEAKER) (test mpmj=483) 20.0 % 36.0-45.0 MEAN CORPUSCULAR VOLUME (BEAKER) (test btcm=542) 85.6 fL 82.0-99.0 MEAN CORPUSCULAR HEMOGLOBIN (BEAKER) (test qezy=435) 28.3 pg 27.0-33.0 MEAN CORPUSCULAR HEMOGLOBIN CONC (BEAKER) (test eduk=116) 33.1 GM/DL 32.0- 36.0 RED CELL DISTRIBUTION WIDTH (BEAKER) (test nfwi=877) 14.2 % 10.3-14.2 PLATELET COUNT (BEAKER) (test ztzs=848) 225 K/CU MM 150-430 MEAN PLATELET VOLUME (BEAKER) (test bgod=388) 7.8 fL 6.5-10.5 NUCLEATED RED BLOOD CELLS (BEAKER) (test oppi=080) 0 /100 WBC 0-0 NEUTROPHILS RELATIVE PERCENT (BEAKER) (test tfjd=779) 59 % LYMPHOCYTES RELATIVE PERCENT (BEAKER) (test hkuj=406) 30 % MONOCYTES RELATIVE PERCENT (BEAKER) (test ynql=323) 8 % EOSINOPHILS RELATIVE PERCENT (BEAKER) (test nycl=822) 3 % BASOPHILS RELATIVE PERCENT (BEAKER) (test pimd=983) 0 % NEUTROPHILS ABSOLUTE COUNT (BEAKER) (test zjpr=254) 3.30 K/ L 1.80-8.00 LYMPHOCYTES ABSOLUTE COUNT (BEAKER) (test upgf=053) 1.60 K/ L 1.48-4.50 MONOCYTES ABSOLUTE COUNT (BEAKER) (test ehxy=359) 0.40 K/ L 0.00-1.30 EOSINOPHILS ABSOLUTE COUNT (BEAKER) (test trxh=748) 0.20 K/ L 0.00-0.50 BASOPHILS ABSOLUTE COUNT (BEAKER) (test yajo=438) 0.00 K/ L 0.00-0.20 T4, [id number] 06:40:00* Test Item Value Reference Range Comments FREE T4 (BEAKER) (test zmur=631) 0.84 ng/dL 0.90-1.80 [id number] 06:39:00* Test Item Value Reference Range Comments THYROID STIMULATING HORMONE (BEAKER) (test avwd=277) 2.30 uIU/mL 0.35-5.50 COMPREHENSIVE METABOLIC [id number] 06:29:00* Test Item Value Reference Range Comments TOTAL PROTEIN (BEAKER) (test hzmv=360) 4.6 gm/dL 6.0-8.5 ALBUMIN (BEAKER) (test mgmi=7679) 1.8 g/dL 3.5-5.0 ALKALINE PHOSPHATASE (BEAKER) (test dmbn=103) 89 U/L 30-115 BILIRUBIN TOTAL (BEAKER) (test rlyz=955) < mg/dL 0.1-1.2 SODIUM (BEAKER) (test sfae=287) 138 meq/L 135-148 POTASSIUM (BEAKER) (test tnnv=743) 3.9 meq/L 3.6-5.5 CHLORIDE (BEAKER) (test ifgj=672) 115 meq/L 98-106 CO2 (BEAKER) (test wdtx=002) 18 meq/L 20-29 BLOOD UREA NITROGEN (BEAKER) (test yqcm=888) 26 mg/dL 10-26 CREATININE (BEAKER) (test kvxh=097) 2.60 mg/dL 0.50-1.20 GLUCOSE RANDOM (BEAKER) (test wgll=646) 123 mg/dL 70-110 CALCIUM (BEAKER) (test nunc=061) 7.3 mg/dL 8.5-10.5 AST (SGOT) (BEAKER) (test xldv=401) 9 U/L 5-40 ALT (SGPT) (BEAKER) (test oeau=088) 10 U/L 5-50 EGFR (BEAKER) (test khkk=4975) 27 mL/min/1.73 sq m ESTIMATED GFR IS NOT ACCURATE CREATININE CLEARANCE IN PREDICTING GLOMERULAR FILTRATION RATE. ESTIMATED GFR IS NOT APPLICABLE FOR DIALYSIS PATIENTS. Fasting sampleLIPID [id number] 06:25:00* Test Item Value Reference Range Comments TRIGLYCERIDES (BEAKER) (test nbmy=852) 179 mg/dL CHOLESTEROL (BEAKER) (test ccmh=994) 274 mg/dL HDL CHOLESTEROL (BEAKER) (test qzfn=483) 31 mg/dL LDL CHOLESTEROL CALCULATED (BEAKER) (test uppr=659) 207 mg/dL Triglyceride Reference Range: Low Risk <150 Borderline 150-199 High Risk 200-499 Very High Risk >=500Cholesterol Reference Range: Low Risk <200 Borderline 200-239 High Risk >240HDL Cholesterol Reference Range: Low Risk >=60 High Risk <40LDL Cholesterol Reference Range: Optimal <100 Near Optimal 100-129 Borderline 130-159 High 160-189 Very High >=190 Fasting sampleFasting sampleFasting sampleBASIC METABOLIC [id number] 06:24:00* Test Item Value Reference Range Comments SODIUM (BEAKER) (test ssut=827) 138 meq/L 135-148 POTASSIUM (BEAKER) (test gopd=862) 3.9 meq/L 3.6-5.5 CHLORIDE (BEAKER) (test tqmq=146) 115 meq/L 98-106 CO2 (BEAKER) (test dgnm=900) 18 meq/L 20-29 BLOOD UREA NITROGEN (BEAKER) (test vzom=632) 26 mg/dL 10-26 CREATININE (BEAKER) (test drmw=971) 2.60 mg/dL 0.50-1.20 GLUCOSE RANDOM (BEAKER) (test hxwx=025) 123 mg/dL 70-110 CALCIUM (BEAKER) (test qxnh=137) 7.3 mg/dL 8.5-10.5 EGFR (BEAKER) (test tvfs=4039) 27 mL/min/1.73 sq m ESTIMATED GFR IS NOT ACCURATE CREATININE CLEARANCE IN PREDICTING GLOMERULAR FILTRATION RATE. ESTIMATED GFR IS NOT APPLICABLE FOR DIALYSIS PATIENTS. [id number] 06:21:00* Test Item Value Reference Range Comments PHOSPHORUS (BERACHEL) (test mbwr=149) 3.9 mg/dL 2.5-4.5 Fasting sampleHEMOGLOBIN [id number] 22:51:00* Test Item Value Reference Range Comments HEMOGLOBIN A1C (BEAKER) (test vqgm=149) 8.2 % 4.3-6.1 POCT-GLUCOSE [id number] 21:53:00* Test Item Value Reference Range Comments POC-GLUCOSE METER (BEAKER) (test rtku=8025) 298 mg/dL 70-110 TESTED AT [facility] [address] [facility] [address] POCT-GLUCOSE [id number] 17:22:00* Test Item Value Reference Range Comments POC-GLUCOSE METER (BEAKER) (test gcpp=5321) 227 mg/dL 70-110 TESTED AT [facility] [address] [facility] [address] POCT-GLUCOSE [id number] 13:51:00* Test Item Value Reference Range Comments POC-GLUCOSE METER (BEAKER) (test qziw=0298) 383 mg/dL 70-110 TESTED AT [facility] [address] [facility] [address] POCT-GLUCOSE [id number] 12:38:00* Test Item Value Reference Range Comments POC-GLUCOSE METER (BEAKER) (test souu=0835) 414 mg/dL 70-110 Notified RN or MD Patient refused repeat test/TESTED AT [address] [address] POCT-GLUCOSE [id number] 10:33:00* Test Item Value Reference Range Comments POC-GLUCOSE METER (BEAKER) (test iesj=7972) 330 mg/dL 70-110 TESTED AT [facility] [address] [facility] [address] POCT-GLUCOSE [id number] 08:23:00* Test Item Value Reference Range Comments POC-GLUCOSE METER (BEAKER) (test dkoq=2791) 240 mg/dL 70-110 TESTED AT [facility] [address] [facility] [address] BLOOD GAS, [id number] 03:43:00* Test Item Value Reference Range Comments PH ARTERIAL (BEAKER) (test cmac=586) 7.30 7.35-7.45 PCO2 ARTERIAL (BEAKER) (test gtab=087) 25 mmHg 35-45 PO2 ARTERIAL (BEAKER) (test kpti=774) 123 mmHg 80-90 O2 SATURATION ARTERIAL (BEAKER) (test dcan=757) 98.2 % 96.0-97.0 HCO3 ARTERIAL (BEAKER) (test fnjh=975) 12 mmol/L 21-29 BASE EXCESS ARTERIAL (BEAKER) (test ivif=719) -12.8 mmol/L -2.0-3.0 PATIENT TEMPERATURE (BEAKER) (test dftf=8221) 37.0 C FIO2 (BEAKER) (test oyqv=3009) 21.0 % POCT-GLUCOSE [id number] 03:31:00* Test Item Value Reference Range Comments POC-GLUCOSE METER (BEAKER) (test ctsr=2925) 257 mg/dL 70-110 TESTED AT [address] [address] POCT-GLUCOSE [id number] 01:44:00* Test Item Value Reference Range Comments POC-GLUCOSE METER (BEAKER) (test hnww=6088) 264 mg/dL 70-110 TESTED AT [facility] [address] [place] [address] HCG, QUANTITATIVE, [id number] 00:51:00* Test Item Value Reference Range Comments GONADOTROPIN, CHORIONIC (HCG) QUANT (BEAKER) (test xjyt=932) 5083 mIU/mL 0- 10 Non- Females: <10 mIU/mL Females: Gestation Age Reference Range(mIU/mL) 0.2-1 Week 5-50 1-2 Weeks 50-500 2-3 Weeks 100-5,000 3-4 Weeks 500-10,000 4-5 Weeks 1,000-50,000 5-6 Weeks 10,000-100,000 6-8 Weeks 15,000-200,000 2-3 Months 10,000-100,000 PH, [id number] 00:20:00* Test Item Value Reference Range Comments PH VENOUS (BEAKER) (test qrnq=811) 7.24 7.32-7.42 COMPREHENSIVE METABOLIC [id number] 23:55:00* Test Item Value Reference Range Comments TOTAL PROTEIN (BEAKER) (test voxp=500) 5.7 gm/dL 6.0-8.5 ALBUMIN (BEAKER) (test szqp=4757) 2.3 g/dL 3.5-5.0 ALKALINE PHOSPHATASE (BEAKER) (test totv=131) 129 U/L 30-115 BILIRUBIN TOTAL (BEAKER) (test mvxj=398) < mg/dL 0.1-1.2 SODIUM (BEAKER) (test gytb=235) 128 meq/L 135-148 POTASSIUM (BEAKER) (test ehpy=856) 4.8 meq/L 3.6-5.5 CHLORIDE (BEAKER) (test byho=217) 104 meq/L 98-106 CO2 (BEAKER) (test tjgx=871) 13 meq/L 20-29 BLOOD UREA NITROGEN (BEAKER) (test ezhp=544) 37 mg/dL 10-26 CREATININE (BEAKER) (test lsvt=985) 3.40 mg/dL 0.50-1.20 GLUCOSE RANDOM (BEAKER) (test igme=877) 681 mg/dL 70-110 CALCIUM (BEAKER) (test nplf=934) 7.6 mg/dL 8.5-10.5 AST (SGOT) (BEAKER) (test ixjl=227) 8 U/L 5-40 ALT (SGPT) (BEAKER) (test zump=877) 12 U/L 5-50 EGFR (BEAKER) (test yuxm=2431) 20 mL/min/1.73 sq m ESTIMATED GFR IS NOT ACCURATE CREATININE CLEARANCE IN PREDICTING GLOMERULAR FILTRATION RATE. ESTIMATED GFR IS NOT APPLICABLE FOR DIALYSIS PATIENTS. [id number] 23:54:00* Test Item Value Reference Range Comments LIPASE (BEAKER) (test fjgb=595) 111 U/L 6-51 URINALYSIS W/ REFLEX URINE [id number] 23:37:00* Test Item Value Reference Range Comments COLOR (BEAKER) (test kzbe=188) Yellow CLARITY (BEAKER) (test isfy=483) Clear SPECIFIC GRAVITY UA (BEAKER) (test phcw=056) 1.015 1.001-1.035 PH UA (BEAKER) (test mgup=102) 7.0 5.0-8.0 PROTEIN UA (BEAKER) (test kyrp=861) 100 mg/dL Negative GLUCOSE UA (BEAKER) (test whwu=797) >=1000 mg/dL Negative KETONES UA (BEAKER) (test nlsg=925) Negative Negative BILIRUBIN UA (BEAKER) (test hfvs=532) Negative Negative BLOOD UA (BEAKER) (test rqyg=438) Small Negative NITRITE UA (BEAKER) (test nzbu=259) Negative Negative LEUKOCYTE ESTERASE UA (BEAKER) (test xupc=104) Negative Negative UROBILINOGEN UA (BEAKER) (test fgkv=846) 0.2 mg/dL 0.2-1.0 BACTERIA (BEAKER) (test wwpv=829) Occasional YEAST (BEAKER) (test ovxe=9096) Occasional RBC UA-MANUAL (BEAKER) (test yqia=0699) <5 /HPF WBC UA-MANUAL (BEAKER) (test gyjv=0889) <5 /HPF SQUAMOUS EPITHELIAL MANUAL (BEAKER) (test ctbc=4670) <5 /HPF SOURCE(BEAKER) (test yyol=8118) SCREEN, [id number] 23:32:00* Test Item Value Reference Range Comments TEST URINE (BEAKER) (test fxfc=108) Positive KETONE, [id number] 23:32:00* Test Item Value Reference Range Comments KETONES, BLOOD (BEAKER) (test omxr=9643) 0.1 mmol/L <0.4 CBC W/PLT COUNT & AUTO [id number] 23:31:00* Test Item Value Reference Range Comments WHITE BLOOD CELL COUNT (BEAKER) (test iymu=474) 7.1 K/ L 4.0-10.0 RED BLOOD CELL COUNT (BEAKER) (test ajpc=234) 3.05 M/ L 4.00-5.00 HEMOGLOBIN (BEAKER) (test qxje=901) 8.6 GM/DL 12.0-15.0 HEMATOCRIT (BEAKER) (test btlg=070) 26.3 % 36.0-45.0 MEAN CORPUSCULAR VOLUME (BEAKER) (test bgws=792) 86.3 fL 82.0-99.0 MEAN CORPUSCULAR HEMOGLOBIN (BEAKER) (test uidj=914) 28.1 pg 27.0-33.0 MEAN CORPUSCULAR HEMOGLOBIN CONC (BEAKER) (test mkus=300) 32.6 GM/DL 32.0- 36.0 RED CELL DISTRIBUTION WIDTH (BEAKER) (test dplm=590) 12.9 % 10.3-14.2 PLATELET COUNT (BEAKER) (test otzw=343) 283 K/CU MM 150-430 MEAN PLATELET VOLUME (BEAKER) (test kset=878) 8.4 fL 6.5-10.5 NEUTROPHILS RELATIVE PERCENT (BEAKER) (test hqsa=246) 63 % LYMPHOCYTES RELATIVE PERCENT (BEAKER) (test zpbz=736) 28 % MONOCYTES RELATIVE PERCENT (BEAKER) (test slqv=896) 5 % EOSINOPHILS RELATIVE PERCENT (BEAKER) (test fzjz=322) 3 % BASOPHILS RELATIVE PERCENT (BEAKER) (test hiob=309) 1 % NEUTROPHILS ABSOLUTE COUNT (BEAKER) (test mbbw=624) 4.40 K/ L 1.80-8.00 LYMPHOCYTES ABSOLUTE COUNT (BEAKER) (test tual=070) 2.00 K/ L 1.48-4.50 MONOCYTES ABSOLUTE COUNT (BEAKER) (test xdjr=576) 0.40 K/ L 0.00-1.30 EOSINOPHILS ABSOLUTE COUNT (BEAKER) (test jrhy=206) 0.20 K/ L 0.00-0.50 BASOPHILS ABSOLUTE COUNT (BEAKER) (test qmpx=188) 0.10 K/ L 0.00-0.20 POCT-GLUCOSE [id number] 12:18:00* Test Item Value Reference Range Comments POC-GLUCOSE METER (BEAKER) (test cfnf=8485) 218 mg/dL 70-110 TESTED AT [facility] [address] [facility] [address] URINE [id number] 11:21:00* Test Item Value Reference Range Comments CULTURE (BEAKER) (test ekbq=3040) >100,000 col/mL skin gerardo BLOOD [id number] 08:32:00* Test Item Value Reference Range Comments CULTURE (BEAKER) (test mfbd=4406) From Aerobic And Anaerobic Bottles Coagulase negative Staphylococcus GRAM STAIN RESULT (BEAKER) (test llpd=9963) From aerobic bottle only: gram positive cocci in chains, pairs and clusters GRAM STAIN RESULT (BEAKER) (test nrtd=84915) From anaerobic bottle only: gram positive cocci in pairs and clusters POCT-GLUCOSE [id number] 07:53:00* Test Item Value Reference Range Comments POC-GLUCOSE METER (BEAKER) (test fsfr=8466) 90 mg/dL 70-110 TESTED AT [facility] [address] [facility] [address] PROTEIN, RANDOM [id number] 04:47:00* Test Item Value Reference Range Comments PROTEIN, URINE (BEAKER) (test rsey=4728) 250 mg/dL 0-14 CALCIUM, [id number] 04:13:00* Test Item Value Reference Range Comments CALCIUM IONIZED (BEAKER) (test uyoz=963) 1.06 mmol/L 1.12-1.27 PH, BLOOD (BEAKER) (test mayp=9072) 7.35 CREATININE, RANDOM [id number] 04:12:00* Test Item Value Reference Range Comments CREATININE URINE (BEAKER) (test rubc=977) 29.7 mg/dL Reference Range: No NormalsBASIC METABOLIC [id number] 04:11:00* Test Item Value Reference Range Comments SODIUM (BEAKER) (test uvqs=122) 139 meq/L 136-145 POTASSIUM (BEAKER) (test bzkt=990) 3.8 meq/L 3.5-5.1 CHLORIDE (BEAKER) (test mfaz=489) 116 meq/L 98-107 CO2 (BEAKER) (test ttjx=472) 19 meq/L 22-29 BLOOD UREA NITROGEN (BEAKER) (test jphc=799) 17 mg/dL 7-21 CREATININE (BEAKER) (test klon=947) 2.13 mg/dL 0.57-1.25 GLUCOSE RANDOM (BEAKER) (test kcym=036) 75 mg/dL 70-105 CALCIUM (BEAKER) (test mglx=841) 7.6 mg/dL 8.4-10.2 EGFR (BEAKER) (test ebnv=1889) 34 mL/min/1.73 sq m ESTIMATED GFR IS NOT ACCURATE CREATININE CLEARANCE IN PREDICTING GLOMERULAR FILTRATION RATE. ESTIMATED GFR IS NOT APPLICABLE FOR DIALYSIS PATIENTS. URINALYSIS W/ [id number] 04:06:00* Test Item Value Reference Range Comments COLOR (BEAKER) (test whgk=705) Light Yellow CLARITY (BEAKER) (test ktym=824) Clear SPECIFIC GRAVITY UA (BEAKER) (test gbhs=735) 1.004 1.001-1.035 PH UA (BEAKER) (test nqvp=978) 7.0 5.0-8.0 PROTEIN UA (BEAKER) (test rthl=340) 300 mg/dL Negative GLUCOSE UA (BEAKER) (test fmdr=184) 200 mg/dL Negative KETONES UA (BEAKER) (test vqcs=297) Negative Negative BILIRUBIN UA (BEAKER) (test cymb=766) Negative Negative BLOOD UA (BEAKER) (test gplc=526) Large Negative NITRITE UA (BEAKER) (test nqjv=031) Negative Negative LEUKOCYTE ESTERASE UA (BEAKER) (test ziso=641) Negative Negative UROBILINOGEN UA (BEAKER) (test ltgs=435) 0.2 mg/dL 0.2-1.0 RBC UA (BEAKER) (test balz=616) 155 /HPF WBC UA (BEAKER) (test sjrq=251) 7 /HPF SQUAMOUS EPITHELIAL (BEAKER) (test hvss=675) 1 /HPF AMORPHOUS CRYSTALS (BEAKER) (test fjzo=7902) Rare SOURCE(BEAKER) (test pqqp=4325) Urine, Voided [id number] 04:04:00* Test Item Value Reference Range Comments PHOSPHORUS (BEAKER) (test dvpm=913) 3.8 mg/dL 2.3-4.7 [id number] 04:04:00* Test Item Value Reference Range Comments MAGNESIUM (BEAKER) (test ckrv=288) 1.6 mg/dL 1.6-2.6 CBC W/PLT COUNT & AUTO [id number] 03:53:00* Test Item Value Reference Range Comments WHITE BLOOD CELL COUNT (BEAKER) (test jjcw=415) 6.8 K/ L 4.0-10.0 RED BLOOD CELL COUNT (BEAKER) (test naag=389) 2.88 M/ L 4.00-5.00 HEMOGLOBIN (BEAKER) (test sudf=578) 8.9 GM/DL 12.0-15.0 HEMATOCRIT (BEAKER) (test azlx=083) 25.9 % 36.0-45.0 MEAN CORPUSCULAR VOLUME (BEAKER) (test ejxb=600) 89.9 fL 82.0-99.0 MEAN CORPUSCULAR HEMOGLOBIN (BEAKER) (test giqp=013) 30.9 pg 27.0-33.0 MEAN CORPUSCULAR HEMOGLOBIN CONC (BEAKER) (test bvko=600) 34.4 GM/DL 32.0- 36.0 RED CELL DISTRIBUTION WIDTH (BEAKER) (test azhh=771) 12.9 % 10.3-14.2 PLATELET COUNT (BEAKER) (test ebey=895) 214 K/CU MM 150-430 MEAN PLATELET VOLUME (BEAKER) (test xysx=537) 6.5 fL 6.5-10.5 NUCLEATED RED BLOOD CELLS (BEAKER) (test azqm=753) 0 /100 WBC 0-0 NEUTROPHILS RELATIVE PERCENT (BEAKER) (test skfc=243) 51 % LYMPHOCYTES RELATIVE PERCENT (BEAKER) (test mrgn=716) 38 % MONOCYTES RELATIVE PERCENT (BEAKER) (test ozus=661) 7 % EOSINOPHILS RELATIVE PERCENT (BEAKER) (test lbcu=903) 3 % BASOPHILS RELATIVE PERCENT (BEAKER) (test tfud=130) 1 % NEUTROPHILS ABSOLUTE COUNT (BEAKER) (test jhst=356) 3.51 K/ L 1.80-8.00 LYMPHOCYTES ABSOLUTE COUNT (BEAKER) (test rebv=740) 2.62 K/ L 1.48-4.50 MONOCYTES ABSOLUTE COUNT (BEAKER) (test itoz=898) 0.45 K/ L 0.00-1.30 EOSINOPHILS ABSOLUTE COUNT (BEAKER) (test jvpu=072) 0.20 K/ L 0.00-0.50 BASOPHILS ABSOLUTE COUNT (BEAKER) (test ilww=955) 0.04 K/ L 0.00-0.20 0.00POCT-GLUCOSE [id number] 21:26:00* Test Item Value Reference Range Comments POC-GLUCOSE METER (BEAKER) (test szou=0613) 191 mg/dL 70-110 TESTED AT [place] [id number] [facility] [address] POCT-GLUCOSE [id number] 16:57:00* Test Item Value Reference Range Comments POC-GLUCOSE METER (BEAKER) (test ycvx=9698) 67 mg/dL 70-110 Notified ALICJA BECKFORD/ TESTED AT [address] [address] POCT-GLUCOSE [id number] 12:57:00* Test Item Value Reference Range Comments POC-GLUCOSE METER (BEAKER) (test esvo=8651) 273 mg/dL 70-110 TESTED AT [address] [address] POCT-GLUCOSE [id number] 08:00:00* Test Item Value Reference Range Comments POC-GLUCOSE METER (BEAKER) (test cxnw=6123) 208 mg/dL 70-110 TESTED AT [address] [address] CBC W/PLT COUNT & AUTO [id number] 07:49:00* Test Item Value Reference Range Comments WHITE BLOOD CELL COUNT (BEAKER) (test hwbm=654) 6.9 K/ L 4.0-10.0 RED BLOOD CELL COUNT (BEAKER) (test ytbl=030) 2.85 M/ L 4.00-5.00 HEMOGLOBIN (BEAKER) (test ijtn=422) 8.7 GM/DL 12.0-15.0 HEMATOCRIT (BEAKER) (test xgsf=535) 25.7 % 36.0-45.0 MEAN CORPUSCULAR VOLUME (BEAKER) (test ymqb=833) 90.3 fL 82.0-99.0 MEAN CORPUSCULAR HEMOGLOBIN (BEAKER) (test xkyb=143) 30.6 pg 27.0-33.0 MEAN CORPUSCULAR HEMOGLOBIN CONC (BEAKER) (test ljtc=650) 33.9 GM/DL 32.0- 36.0 RED CELL DISTRIBUTION WIDTH (BEAKER) (test twfr=691) 13.2 % 10.3-14.2 PLATELET COUNT (BEAKER) (test ulsr=508) 253 K/CU MM 150-430 MEAN PLATELET VOLUME (BEAKER) (test xemo=600) 7.2 fL 6.5-10.5 NUCLEATED RED BLOOD CELLS (BEAKER) (test umib=534) 0 /100 WBC 0-0 NEUTROPHILS RELATIVE PERCENT (BEAKER) (test qvzy=549) 51 % LYMPHOCYTES RELATIVE PERCENT (BEAKER) (test ajit=677) 42 % MONOCYTES RELATIVE PERCENT (BEAKER) (test xlua=020) 6 % EOSINOPHILS RELATIVE PERCENT (BEAKER) (test astn=409) 1 % BASOPHILS RELATIVE PERCENT (BEAKER) (test xibk=386) 1 % NEUTROPHILS ABSOLUTE COUNT (BEAKER) (test emhd=609) 3.46 K/ L 1.80-8.00 LYMPHOCYTES ABSOLUTE COUNT (BEAKER) (test hpbn=833) 2.90 K/ L 1.48-4.50 MONOCYTES ABSOLUTE COUNT (BEAKER) (test tyfp=934) 0.38 K/ L 0.00-1.30 EOSINOPHILS ABSOLUTE COUNT (BEAKER) (test nymk=985) 0.07 K/ L 0.00-0.50 BASOPHILS ABSOLUTE COUNT (BEAKER) (test hoso=360) 0.05 K/ L 0.00-0.20 0.00BASIC METABOLIC [id number] 06:34:00* Test Item Value Reference Range Comments SODIUM (BEAKER) (test tjjh=068) 140 meq/L 136-145 POTASSIUM (BEAKER) (test cnkg=816) 3.5 meq/L 3.5-5.1 CHLORIDE (BEAKER) (test xykk=012) 116 meq/L 98-107 CO2 (BEAKER) (test qlpg=474) 18 meq/L 22-29 BLOOD UREA NITROGEN (BEAKER) (test hdox=040) 16 mg/dL 7-21 CREATININE (BEAKER) (test fpuo=124) 2.31 mg/dL 0.57-1.25 GLUCOSE RANDOM (BEAKER) (test tvqy=568) 136 mg/dL 70-105 CALCIUM (BEAKER) (test qsxj=887) 7.3 mg/dL 8.4-10.2 EGFR (BEAKER) (test dcmn=0440) 31 mL/min/1.73 sq m ESTIMATED GFR IS NOT ACCURATE CREATININE CLEARANCE IN PREDICTING GLOMERULAR FILTRATION RATE. ESTIMATED GFR IS NOT APPLICABLE FOR DIALYSIS PATIENTS. [id number] 06:29:00* Test Item Value Reference Range Comments PHOSPHORUS (BEAKER) (test anpz=288) 4.0 mg/dL 2.3-4.7 [id number] 06:29:00* Test Item Value Reference Range Comments MAGNESIUM (BEAKER) (test hcia=486) 1.6 mg/dL 1.6-2.6 CALCIUM, [id number] 06:07:00* Test Item Value Reference Range Comments CALCIUM IONIZED (BEAKER) (test ibzx=691) 1.07 mmol/L 1.12-1.27 PH, BLOOD (BEAKER) (test mhup=3221) 7.34 POCT-GLUCOSE [id number] 21:59:00* Test Item Value Reference Range Comments POC-GLUCOSE METER (BEAKER) (test nlip=5850) 97 mg/dL 70-110 TESTED AT [address] [address] POCT-GLUCOSE [id number] 16:32:00* Test Item Value Reference Range Comments POC-GLUCOSE METER (BEAKER) (test xxkk=7126) 131 mg/dL 70-110 TESTED AT [place] [id number] [facility] [address] URINE [id number] 11:56:00* Test Item Value Reference Range Comments CULTURE (BEAKER) (test qaux=1646) 20-29,000 col/mL Beta-hemolytic streptococcus group B, by serological groupingIf this patient is , please refer to ACOG guidelines for appropriate screening and management of colonized women. <10,000 col/mL skin floraPOCT-GLUCOSE [id number] 10:34:00* Test Item Value Reference Range Comments POC-GLUCOSE METER (BEAKER) (test ljoj=8158) 108 mg/dL 70-110 TESTED AT [place] [id number] [facility] [address] POCT-GLUCOSE [id number] 08:21:00* Test Item Value Reference Range Comments POC-GLUCOSE METER (BEAKER) (test prpa=6970) 81 mg/dL 70-110 TESTED AT [address] [address] BASIC METABOLIC [id number] 04:49:00* Test Item Value Reference Range Comments SODIUM (BEAKER) (test mmgo=613) 141 meq/L 136-145 POTASSIUM (BEAKER) (test btso=561) 4.1 meq/L 3.5-5.1 CHLORIDE (BEAKER) (test oxvt=186) 117 meq/L 98-107 CO2 (BEAKER) (test juyx=877) 17 meq/L 22-29 BLOOD UREA NITROGEN (BEAKER) (test aqlj=704) 24 mg/dL 7-21 CREATININE (BEAKER) (test zloo=143) 2.68 mg/dL 0.57-1.25 GLUCOSE RANDOM (BEAKER) (test rwkg=140) 104 mg/dL 70-105 CALCIUM (BEAKER) (test clsj=115) 7.7 mg/dL 8.4-10.2 EGFR (BEAKER) (test jdmk=5031) 26 mL/min/1.73 sq m ESTIMATED GFR IS NOT ACCURATE CREATININE CLEARANCE IN PREDICTING GLOMERULAR FILTRATION RATE. ESTIMATED GFR IS NOT APPLICABLE FOR DIALYSIS PATIENTS. [id number] 04:46:00* Test Item Value Reference Range Comments MAGNESIUM (BEAKER) (test sxmn=745) 2.1 mg/dL 1.6-2.6 CBC W/PLT COUNT & AUTO [id number] 04:42:00* Test Item Value Reference Range Comments WHITE BLOOD CELL COUNT (BEAKER) (test wgje=621) 9.6 K/ L 4.0-10.0 RED BLOOD CELL COUNT (BEAKER) (test nsgz=935) 3.10 M/ L 4.00-5.00 HEMOGLOBIN (BEAKER) (test wnuj=098) 9.2 GM/DL 12.0-15.0 HEMATOCRIT (BEAKER) (test bert=139) 27.9 % 36.0-45.0 MEAN CORPUSCULAR VOLUME (BEAKER) (test awbi=870) 90.1 fL 82.0-99.0 MEAN CORPUSCULAR HEMOGLOBIN (BEAKER) (test ekkn=190) 29.7 pg 27.0-33.0 MEAN CORPUSCULAR HEMOGLOBIN CONC (BEAKER) (test sxse=001) 32.9 GM/DL 32.0- 36.0 RED CELL DISTRIBUTION WIDTH (BEAKER) (test sgla=222) 13.5 % 10.3-14.2 PLATELET COUNT (BEAKER) (test pjuf=728) 275 K/CU MM 150-430 MEAN PLATELET VOLUME (BEAKER) (test hflg=335) 6.9 fL 6.5-10.5 NUCLEATED RED BLOOD CELLS (BEAKER) (test acml=408) 0 /100 WBC 0-0 NEUTROPHILS RELATIVE PERCENT (BEAKER) (test csyd=665) 62 % LYMPHOCYTES RELATIVE PERCENT (BEAKER) (test uqhy=037) 31 % MONOCYTES RELATIVE PERCENT (BEAKER) (test hcgk=440) 6 % EOSINOPHILS RELATIVE PERCENT (BEAKER) (test awnl=307) 1 % BASOPHILS RELATIVE PERCENT (BEAKER) (test wcyf=043) 0 % NEUTROPHILS ABSOLUTE COUNT (BEAKER) (test mfmq=225) 5.93 K/ L 1.80-8.00 LYMPHOCYTES ABSOLUTE COUNT (BEAKER) (test mtmz=075) 2.93 K/ L 1.48-4.50 MONOCYTES ABSOLUTE COUNT (BEAKER) (test jmjs=484) 0.54 K/ L 0.00-1.30 EOSINOPHILS ABSOLUTE COUNT (BEAKER) (test aoly=814) 0.12 K/ L 0.00-0.50 BASOPHILS ABSOLUTE COUNT (BEAKER) (test ntyh=206) 0.03 K/ L 0.00-0.20 0.00POCT-GLUCOSE [id number] 21:08:00* Test Item Value Reference Range Comments POC-GLUCOSE METER (BEAKER) (test xsqy=8316) 178 mg/dL 70-110 TESTED AT [address] [address] POCT-GLUCOSE [id number] 17:21:00* Test Item Value Reference Range Comments POC-GLUCOSE METER (BEAKER) (test owht=6978) 101 mg/dL 70-110 TESTED AT [address] [address] [address] ABDOMEN/PELVIS [place] [address] Patient Name: DEMETRI CROSS MR #: [id number] : 1990 Age/Sex: 27/F Req #: [id number] Adm Physician: JESSI WESLEY MD Ordered by: RJ BECKFORD, SELINA BECKFORD Report #: [id number] Location: [facility] Room/Bed: [place] [id number] _ Procedure: [id number] CT/CT ABDOMEN/PELVIS WO Exam Date: 09/19/17 Exam Time: 1620 REPORT STATUS: Signed EXAM: CT Abdomen and Pelvis WITHOUT contrast INDICATION: Nausea, vomiting, abdominal pain COMPARISON: CT abdomen and pelvis on 07/15/2017 and KUB from 09/13/2014 TECHNIQUE: Abdomen and pelvis were scanned utilizing a multidetector helical scanner from the lung base to the pubic symphysis without administration of IV contrast. Absence of intravenous contrast decreases sensitivity for detection of focal lesions and vascular pathology. Coronal and sagittal reformations were obtained. Routine protocol was performed. IV CONTRAST: None. ORAL CONTRAST: Gastrografin RADIATION DOSE: Total DLP: 176.4 mGy*cm Estimated effective dose: (DLP x 0.015 x size factor) mSv COMPLICATIONS: None FINDINGS: LINES and TUBES: Partially visualized left IJ hemodialysis catheter with tip in the mid right ventricle. Consider retraction. LOWER THORAX: Unremarkable HEPATOBILIARY: No focal hepatic lesions. No biliary ductal dilation. GALLBLADDER: Cholecystectomy, unchanged. SPLEEN: No splenomegaly. PANCREAS: No focal masses or ductal dilatation. ADRENALS: No adrenal nodules KIDNEYS/URETERS: Stable fusion abnormality of the kidneys located transversely at the abdominopelvic junction. No hydronephrosis. No cystic or solid mass lesions. No stones. GI TRACT: Mild circumferential wall thickening of the stomach. Positive contrast present on in the stomach and proximal small bowel. No abnormal distention, wall thickening, or evidence of bowel obstruction. Appendix is normal. PELVIC ORGANS/ BLADDER: Circumferential wall thickening of the urinary bladder may be overestimated by poor distention. LYMPH NODES: No lymphadenopathy. VESSELS: Unremarkable. PERITONEUM / RETROPERITONEUM: No free air or fluid. BONES: Unremarkable. SOFT TISSUES: Unremarkable. IMPRESSION: Mild circumferential wall thickening of a mildly distending stomach may be due to inflammation. Recommend GI consultation. Otherwise , no interval change when compared to 09/15/2016. Signed by: Dr. Sherry Harrell M.D. on 09/19/2017 5:19 PM Dictated By: SHERRY HARRELL MD 18 Transcribed By: MASOUD on 09/19/171718 COPY TO: [facility] CHEST SINGLE (PORTABLE) [place] [address] Patient Name: DEMETRI CROSS MR #: [id number] : 1990 Age/Sex: 26/F Req #: [id number] Adm Physician: Ordered by: FEI COLLINS MD Report #: [id number] Location: ER Room/Bed: Procedure: [id number] DX/CHEST SINGLE (PORTABLE) Exam Date: 08/01/17 Exam Time: 954 REPORT STATUS: Signed EXAM: CHEST SINGLE (PORTABLE) [...] FEI COLLINS MD CT ABDOMEN/ PELVIS WO [place] [address] Patient Name: DEMETRI CROSS MR # : [id number] : 1990 Age/Sex: 26/F Req #: [id number] Adm Physician: Ordered by: SCOTT JEROME [employer] Report #: [id number] Location: ER Room/Bed: Procedure: [id number] CT/CT ABDOMEN/PELVIS WO Exam Date: 07/15/17 Exam [...] TO: SCOTT JEROME NP CHEST SINGLE (PORTABLE) [address] [place], [place] [address] Patient Name: DEMETRI CROSS MR #: [id number] : 1990 Age/Sex: 26/F Req #: [id number] Adm Physician: COOKIE GUTHRIE MD Ordered by: TANIA SANTIZO MD Report #: [id number] Location: [facility] Room/Bed: [place] [address] Procedure: [id number] DX/CHEST SINGLE (PORTABLE) Exam Date: Exam Time: REPORT STATUS: Signed PROCEDURE: CHEST SINGLE (PORTABLE) TECHNIQUE: Portable AP chest INDICATION: Diabetic; weakness and vomiting COMPARISON: [facility], , CHEST 2 VIEWS, 04/06/2016, 14: 37. FINDINGS: [...] on 04/23/2017 at 8:37 Dictated By: ADRI JOHNSON MD 6 Transcribed By: RAYNE on 04/23/17836 COPY TO: TANIA SANTIZO MD CT ABDOMEN/PELVIS W [facility] [address] [place] [address] Patient Name: DEMETRI CROSS MR #: [id number] : 1990 [facility] 26 [id number] Req #: [id number] Adm Physician: Ordered by: FEI LANDRY MD Report #: [id number] Location: ER Room/Bed: Procedure: [id number] CT/CT ABDOMEN/PELVIS W Exam Date: 04/22/17 Exam Time: 1505 REPORT STATUS: Signed PROCEDURE: CT ABDOMEN AND PELVIS WITH CONTRAST TECHNIQUE: The abdomen and pelvis were scanned utilizing a multidetector helical scanner from the diaphragm to the lesser trochanter after the IV administration of 100 cc of Isovue 370 and the oral administration of water. Coronal and sagittal multiplanar reformations were obtained. COMPARISON: [facility], CT, CT ABDOMEN/PELVIS W, 08/28/2014, 11:55. [...]
[2017-11-02] MEDS ORDERED: PROMETHAZINE HCL (IM) 25 MG/ML VIAL IV STA (16:49)
[2017-11-02] MEDS ORDERED: SODIUM CHLORIDE 0.9% 500ML 500 ML IV STA (16:49)
[2017-11-02] MEDS ORDERED: PROMETHAZINE 25MG/SOD CHL 0.9% 50 ML IV ONE (17:00)
[2017-11-02] MEDS ORDERED: FAMOTIDINE 20 MG/2 ML VIAL IV STA (17:55)
[2017-11-02 18:00] LABS: BASOPHILS % 0.5 % (0.0-1.0); EOSINOPHILS # (AUTO) 0.1 (0.0-0.4); EOSINOPHILS % 0.9 % (0.0-6.0); HEMOGLOBIN 12.1 g/dL (12.0-16.0); LYMPHOCYTES # (AUTO) 1.1 (1.0-3.2); LYMPHOCYTES % 19.2 % (18.0-39.1); MEAN CORPUSCULAR HEMOGLOBIN 28.3 pg (28-32); MEAN CORPUSCULAR HGB CONC 32.7 g/dL (31-35); MEAN CORPUSCULAR VOLUME 86.7 fL (81-99); MONOCYTES # (AUTO) 0.3 (0.2-0.8); MONOCYTES % 5.3 % (4.4-11.3); NEUTROPHILS % 73.2 % (38.7-80.0); PLATELET COUNT 312 x10e3/uL (140-360); RED BLOOD COUNT 4.27 x10e6/uL (3.6-5.1); RED CELL DISTRIBUTION WIDTH 13.6 % (11.7-14.4)
[2017-11-02] MEDS ORDERED: DICYCLOMINE HCL 20 MG/2 ML VIAL IM ONE (18:00)
[2017-11-02] MEDS ORDERED: FENTANYL CITRATE/PF 100MCG/2 ML INJ IV ONE (18:00)
[2017-11-02 18:16] LABS: ALBUMIN 3.9 g/dL (3.5-5.0); ALBUMIN/GLOBULIN RATIO 0.8 (0.8-2.0); ANION GAP 24.2 mmol/L (8-16); CALCIUM 9.4 mg/dL (8.4-10.2); CREATININE, SERUM 5.49 mg/dL (0.57-1.11); POTASSIUM 4.2 mmol/L (3.5-5.1)
[2017-11-02] MEDS ORDERED: MORPHINE SULFATE 2 MG/ML SYR IV STA (18:28)
[2017-11-02] MEDS ORDERED: DIPHENHYDRAMINE HCL INJ 50 MG/ML VIAL IV ONE (18:30)
[2017-11-02] MEDS ORDERED: SODIUM CHLORIDE 0.9% 1000ML 1,000 ML IV SCH (20:53)
[2017-11-02] MEDS ORDERED: PROMETHAZINE HCL (IM) 25 MG/ML VIAL IV PRN (21:00)
[2017-11-02] MEDS ORDERED: DIPHENHYDRAMINE HCL INJ 50 MG/ML VIAL IV PRN (21:00)
[2017-11-02] MEDS: PROMETHAZINE 12.5MG/ NACL 0.9% 50 ML IV PRN (21:15)
[2017-11-02] MEDS: MORPHINE SULFATE 2 MG/ML SYR IV PRN (21:15)
[2017-11-02] MEDS ORDERED: DEXTROSE 50% SYRINGE 50 ML IV PRN (21:15)
[2017-11-02] MEDS ORDERED: XANAX0.5 MG PO (21:17)
[2017-11-02] MEDS ORDERED: CATAPRES-TTS 11 EACH TD (21:18)
[2017-11-02] MEDS ORDERED: HUMALOG100 UNIT/1 SC (21:18)
[2017-11-02] MEDS ORDERED: HYDRALAZINE HCL25 MG PO (21:19)
[2017-11-02] MEDS ORDERED: LEVEMIR100 UNIT/1 SC (21:19)
--- NOTE | 2017-11-02 21:25 | Diagnostic Imaging Report ---
CHEST SINGLE (PORTABLE), 11/02/2017 7:47 PM Technique: CHEST SINGLE (PORTABLE) Comparison: 08/01/2017 Clinical history: Nausea, vomiting end-stage renal disease Findings: Heart/mediastinum: Normal for technique. Lungs/pleural spaces: No consolidation or edema. No effusion or pneumothorax. Impression: 1. Lines/Tubes: None 2. No acute abnormality. Signed by: Dr Jackie Singh MD on 11/02/2017 9:21 PM
--- OUTSIDE RECORDS SUMMARY | 2017-11-02 21:49 | XMS REPORT | Clinical Summary ---
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 technique. IMPRESSION: Unremarkable head MRA with no significant stenosis or occlusion in the proximal jena of Paul. [facility]-[id number] Procedure Note [facility], Radiology Results Incoming - 04/20/2017 3:37 PM CDT EXAMINATION: MRA HEAD WO CONTRAST CLINICAL HISTORY: HEADACHE ACUTE SEVERE THUNDERCLAP WORST BRAN OF LIFE COMPARISON: Concurrent brain MRI on 04/20/2017. TECHNIQUE: Head MRA using 3D tbst-vt-oxbvfg technique with multiplanar MIP reconstruction were obtained. FINDINGS: There is normal flow signal with no significant stenosis or occlusion along bilateral intracranial ICAs, ACAs, and MCAs. The anterior communicating artery complex is unremarkable. There is normal flow signal with no significant stenosis or occlusion along bilateral vertebral arteries, basilar artery, cerebellar arteries, and electro optical engineer. The vertebral arteries are codominant. The posterior communicating arteries are unremarkable. There is no evidence of cerebral aneurysm in the proximal jena of Paul within limits of MRA technique. IMPRESSION: Unremarkable head MRA with no significant stenosis or occlusion in the proximal jena of Paul. [facility]-[id number] * Syphilis treponemal IgG (04/20/2017 10:38 AM) Component Value Ref Range Syphilis treponemal IgG Non-reactiveComment: Non-reactive: No serological Non-reactive evidence of Syphilis infection Specimen Performing Laboratory Serum [facility] DEPARTMENT OF PATHOLOGY AND GENOMIC MEDICINE [address] [place] [address] * Rapid HIV 1 & 2 (04/20/2017 10:38 AM) Component Value Ref Range Rapid HIV 1 and 2 Non-Reactive Non-Reactive Specimen Performing Laboratory Blood [facility] DEPARTMENT OF PATHOLOGY AND GENOMIC MEDICINE [address] [place] [address] * Sedimentation rate (04/20/2017 10:38 AM) Only the most recent of 2 results within the time period is included. Component Value Ref Range Sedimentation rate 23 (H) 0 - 20 mm/hr Specimen Performing Laboratory Blood [facility] DEPARTMENT OF PATHOLOGY AND GENOMIC MEDICINE [address] [place] [address] * Thyroid stimulating hormone (04/20/2017 10:38 AM) Component Value Ref Range TSH 1.04 0.27 - 4.20 uIU/mL Specimen Performing Laboratory Blood [facility] DEPARTMENT OF PATHOLOGY AND GENOMIC MEDICINE [address] [place] [address] * Vitamin B12 level (04/20/2017 10:38 AM) Component Value Ref Range Vitamin B12 599 211 - 946 pg/mL Comment: Significant overlap exists between normal and deficiency states. However, most patients with deficiencies will have Serum B12 <200 pg/mL. Specimen Performing Laboratory Serum [facility] DEPARTMENT OF PATHOLOGY AND GENOMIC MEDICINE [address] [place] [address] * Lipid panel (04/20/2017 10:38 AM) Only [...] triglycerides (>=200 mg/dL) Specimen Performing Laboratory Blood [facility] DEPARTMENT OF PATHOLOGY AND GENOMIC MEDICINE [address] [place] [address] * CT Head Wo Contrast (04/20/2017 8:59 AM) Only the most recent of 2 results within the time period is included. Specimen Performing Laboratory [facility] [address] [place] [address] Narrative EXAMINATION: CT HEAD WO CONTRAST CLINICAL [...] intact. IMPRESSION: No acute intracranial abnormality identified. [facility]-[id number] Procedure Note Interface, Radiology Results Incoming - [...] intact. IMPRESSION: No acute intracranial abnormality identified. [facility]-[id number] * hCG qualitative, serum screen (04/20/2017 8:13 AM) Only the most recent of 4 results within the time period is included. Component Value Ref Range hCG qualitative, serum NegativeComment: Sensitivity of HCG test: 25 mIU/mL Specimen Performing Laboratory Blood [facility] DEPARTMENT OF PATHOLOGY AND GENOMIC MEDICINE [address] [place] [address] * CK-MB (04/20/2017 6:20 AM) Component Value Ref Range CK-MB 5.5 (H) 1.0 - 5.3 ng/mL Specimen Performing Laboratory Plasma specimen [facility] DEPARTMENT OF PATHOLOGY AND GENOMIC MEDICINE [address] [place] [address] * CRITICAL CARE (04/20/2017 4:52 AM) Narrative [...] specimen DEPARTMENT OF PATHOLOGY AND GENOMIC MEDICINE, [facility] [address] [place] [address] Narrative Test performed at [facility]. * PV duplex venous upper extremity (04/04/2017 10:54 AM) Specimen Performing Laboratory [facility] [address] [place] [address] Narrative EXAMINATION:US DUPLEX VENOUS UPPER EXTREMITY LEFT [...] upper extremity, or the contralateral subclavian vein [facility]-[id number] Procedure Note [facility], Radiology Results Incoming - 04/04/2017 11:01 [...] upper extremity, or the contralateral subclavian vein [facility]-[id number] * GENERAL (04/01/2017 8:33 PM) Narrative ELOISE Corona 04/01/20178:33 PM Other Date/Time: 04/01/2017 8:32 PM Performed by: JAYDEN JAMISON Authorized by: JAYDEN JMAISON Consent: Consent obtained:Verbal Consent given by:Patient Risks [...] 1:02 AM) Specimen Performing Laboratory [facility] [address] [facility] [place] [address] Narrative Examination:XR ABDOMEN 1 VW PORTABLE Clinical History: ABDOMINAL PAIN, Diarrhea, Vomiting Comparison: None. Findings: Single frontal view of the abdomen is obtained. The bowel gas pattern is unremarkable. No bowel dilatation is seen. No free air is seen. Right upper quadrant surgical clips are noted. IMPRESSION: 1. No focal abnormality identified in the abdomen. [facility]-[id number] Procedure Note Interface, Radiology Results Incoming - [...] No focal abnormality identified in the abdomen. [facility]-[id number] * CRITICAL CARE (03/30/2017 6:31 PM) Narrative [...] Site: Arm Right Specimen Performing Laboratory Blood [facility] DEPARTMENT OF PATHOLOGY AND GENOMIC MEDICINE [address] [place] [address] * Blood culture, anaerobic (02/13/2017 11:55 AM) Component Value Ref Range Blood culture isolate, No growth after 5 days of incubation. anaerobic Comment: Specimen Information Specimen Source: Blood Specimen Site: Arm Left Specimen Performing Laboratory Blood [facility] DEPARTMENT OF PATHOLOGY AND GENOMIC MEDICINE [address] [place] [address] * Echocardiogram complete w contrast and 3D [...] E/A ratio 0.81 Specimen Performing Laboratory [facility] [address] [place] [address] Narrative Left Ventricular ejection fraction is 60 [...] speckled (A) Not-Detected Specimen Performing Laboratory Blood [facility] DEPARTMENT OF PATHOLOGY AND GENOMIC MEDICINE [address] [place] [address] * PHILOMENA (01/30/2017 1:16 PM) Component Value Ref Range PHILOMENA screen Detected (A) Not-Detected Specimen Performing Laboratory Blood [facility] DEPARTMENT [place] [address] * Hepatitis B surface Ab, quantitative (01/30/2017 [...] as greater than 1,000.00 IU/L. Performed by [employer] [facility], [address] [place] [address] [id number] [email or web address] Blade Hoff MD - Lab. Director Specimen Performing Laboratory Serum [facility] [address] [place] [address] * Urinalysis screen and microscopy, with reflex [...] None seen UA Specimen Performing Laboratory Urine [facility] DEPARTMENT OF PATHOLOGY AND GENOMIC MEDICINE [address] [place] [address] * Urine culture (01/30/2017 12:08 PM) Only the most recent of 2 results within the time period is included. Component Value Ref Range Urine culture SEE COMMENTComment: Bacteriuria screen negative. Specimen Performing Laboratory [facility] DEPARTMENT OF PATHOLOGY AND GENOMIC MEDICINE [address] [place] [address] * PV Duplex Venous Lower Extremity (01/30/2017 8:21 AM) Specimen Performing Laboratory [facility] [address] [place] [address] Narrative EXAMINATION:US DUPLEX VENOUS LOWER EXTREMITY BILATERAL [...] is no evidence of deep venous thrombosis. [id number] Procedure Note Interface, Radiology Results Incoming - [...] is no evidence of deep venous thrombosis. [id number] * CT Stroke Brain Wo Contrast (01/30/2017 5:27 AM) Specimen Performing Laboratory [facility] [address] [place] [address] Narrative EXAMINATION: CT STROKE BRAIN WO CONTRAST [...] at 01/30/2017 5:46 AM who verbalized understanding. [facility]-[id number] Procedure Note Interface, Radiology Results Incoming - [...] at 01/30/2017 5:46 AM who verbalized understanding. [facility]-[id number] * Smear review (12/09/2016 3:50 AM) Component Value Ref Range Platelet slide review Carmen adequate Anisocytosis Moderate Spherocytes Moderate (A) Ovalocytes Moderate Tay cells Moderate (A) Giant platelets Occasional Specimen Performing Laboratory [facility] DEPARTMENT OF PATHOLOGY AND GENOMIC MEDICINE [address] [facility] [place] [address] * US Single Less Than 14 Weeks (12/08/2016 2:46 PM) Only the most recent of 5 results within the time period is included. Specimen Performing Laboratory [facility] [address] [place] [address] Narrative EXAMINATION:US SINGLE LESS THAN 14 WEEKS [...] participate in the care of your patient. [facility]-[id number] Procedure Note Interface, Radiology Results Incoming - [...] participate in the care of your patient. [facility]-[id number] * Cortisol level, AM (12/08/2016 6:20 AM) Component Value Ref Range Cortisol, AM 14 6 - 18 ug/dL Specimen Performing Laboratory Plasma specimen [facility] DEPARTMENT OF PATHOLOGY AND GENOMIC MEDICINE [address] [place] [address] * Hemoglobin & hematocrit (12/06/2016 6:25 AM) Component Value Ref Range HGB 8.1 (L) 12.0 - 16.0 g/dL HCT 25.6 (L) 37.0 - 47.0 % Specimen Performing Laboratory Blood [facility] DE[place]MENT [place] [address] * Parathyroid hormone (12/06/2016 6:25 AM) Component Value Ref Range PTH 205 (H) 15 - 65 pg/mL Specimen Performing Laboratory Blood [facility] [place] [address] * CBC hemogram (12/05/2016 5:45 AM) Only [...] 0.00 /100 WBC Specimen Performing Laboratory Blood [facility] DEPARTMENT OF PATHOLOGY AND [facility] MEDICINE [address] [place] [address] * GENERAL (12/03/2016 3:43 PM) Narrative ELOISE [...] Red Cells AS1 Leukored Irrad Unit number [id number] Product code [id number] Dispense status Transfused Blood expiration date 20161209 Blood type code 9500 Blood type O NEGATIVE Specimen Performing Laboratory [facility] DEPARTMENT OF PATHOLOGY AND GENOMIC MEDICINE [address] [place] [address] * Type and screen (12/02/2016 10:00 AM) Only the most recent of 3 results within the time period is included. Component Value Ref Range ABO grouping O Rh type NEG Antibody screen (gel) NEG Specimen Performing Laboratory Blood [facility] DEPARTMENT [place] [address] * Urine culture screen (11/28/2016 11:00 AM) [...] gerardo 10-4 cfu/ml Specimen Performing Laboratory Urine [facility] DEPARTMENT OF PATHOLOGY AND GENOMIC MEDICINE [address] [place] [address] Narrative Specimen Site is : Clean catch Specimen Source is : Urine * Lipase level (11/28/2016 10:10 AM) Component Value Ref Range Lipase 13 13 - 60 U/L Specimen Performing Laboratory [facility] DEPARTMENT OF PATHOLOGY AND GENOMIC MEDICINE [address] [place] [address]. [place] [address] * Creatinine level (11/18/2016 6:20 PM) Component Value Ref Range Creatinine 2.6 (H) 0.5 - 0.9 mg/dL Specimen Performing Laboratory [facility] DEPARTMENT OF PATHOLOGY AND GENOMIC MEDICINE [address] [place] [address]. [place] [address] * USPV Venous Upper Extremity Right (11/18/2016 7:00 AM) Specimen Performing Laboratory [facility] [address] [place] [address] Narrative EXAMINATION:USPV EXTREMITY JORGE UPPER UNI RIGHT [...] venous thrombosis of the right upper extremity. [id number] Procedure Note [facility], Radiology Conversion - 11/18/2016 7:32 AM [...] venous thrombosis of the right upper extremity. [id number] * US Abdomen Portable (11/18/2016 6:20 AM) Specimen Performing Laboratory [facility] [address] [place] [address] Narrative EXAM: US ABDOMEN PORTABLE CLINICAL DATA:Abdomen [...] ascites and a small right pleural effusion. [id number] Procedure Note Hm Interface, Radiology Conversion - [...] ascites and a small right pleural effusion. [id number] * Vancomycin level, trough (11/17/2016 5:02 PM) Only the most recent of 7 results within the time period is included. Component Value Ref Range Vancomycin, trough 16.9 10.0 - 20.0 ug/mL Comment: Therapeutic Ranges: Peak 30.0 - 40.0 ug/mL Trough 10.0 - 20.0 ug/mL Specimen Performing Laboratory [facility] DEPARTMENT OF PATHOLOGY AND [facility] MEDICINE [address] [place] [address] * Sodium level, urine, random (11/12/2016 5:58 PM) Component Value Ref Range Urine sodium 66 mEq/L concentration Total volume, urine 40 mL Urine sodium excretion 3Comment: Varies with diet. mEq/vol Specimen Performing Laboratory [facility] DEPARTMENT OF PATHOLOGY AND [address] [address] * Osmolality, urine (11/12/2016 5:58 PM) Component Value Ref Range Osmolality, urine 262 50 - 1,400 mOsm/kg Specimen Performing Laboratory [facility] DEPARTMENT OF PATHOLOGY AND [address] [address] * IR PICC Line Insertion Fluoroscopy (11/11/2016 5:32 PM) Specimen Performing Laboratory [facility] [address] [place] [address] Narrative Examination:PICC LINE INSERTION FLUORO Clinical history:"Very [...] sheath was placed over the wire.A 5 Syrian catheter was severed to 39 cm in length.The catheter was introduced [id number]-[id number]-zlot and positioned using real-time fluoroscopic guidance with [...] Complications:None. Specimens removed:None. Assistants:None. IMPRESSION: A power-injectable, 5-Syrian, 39 cm in length peripherally inserted central catheter (PICC) was placed via the right basilic vein using image guidance and without incident as described above.The catheter is ready for routine use. The patient's indwelling right internal jugularvenous port catheter was removed without incident as described above. Thank you for allowing us to participate in the care of your patient. [facility]-[id number] Procedure Note Hm Interface, Radiology Conversion - [...] was placed over the wire. A 5 Syrian catheter was severed to 39 cm in length. The catheter was introduced bisp-yip-jfml and positioned using real-time fluoroscopic guidance with [...] removed: None. Assistants: None. IMPRESSION: A power-injectable, 5-Syrian, 39 cm in length peripherally inserted central catheter (PICC) was placed via the right basilic vein using image guidance and without incident as described above. The catheter is ready for routine use. The patient's indwelling right internal jugular venous port catheter was removed without incident as described above. Thank you for allowing us to participate in the care of your patient. [id number] * IR Central Catheter Placement Replace Removal Fluoroscopy (11/11/2016 5:32 PM ) Specimen Performing Laboratory [address] [address] Narrative Examination:CNTR CATH PLCMNT REPL REM FLUO [...] sheath was placed over the wire.A 5 Syrian catheter was severed to 39 cm in length.The catheter was introduced [id number]-ddgm and positioned using real-time fluoroscopic guidance with [...] Complications:None. Specimens removed:None. Assistants:None. IMPRESSION: A power-injectable, 5-Syrian, 39 cm in length peripherally inserted central catheter (PICC) was placed via the right basilic vein using image guidance and without incident as described above.The catheter is ready for routine use. The patient's indwelling right internal jugularvenous port catheter was removed without incident as described above. Thank you for allowing us to participate in the care of your patient. [facility]-[id number] Procedure Note Hm Interface, Radiology Conversion - [...] was placed over the wire. A 5 Syrian catheter was severed to 39 cm in length. The catheter was introduced rdmp-niz-uzna and positioned using real-time fluoroscopic guidance with [...] removed: None. Assistants: None. IMPRESSION: A power-injectable, 5-Syrian, 39 cm in length peripherally inserted central catheter (PICC) was placed via the right basilic vein using image guidance and without incident as described above. The catheter is ready for routine use. The patient's indwelling right internal jugular venous port catheter was removed without incident as described above. Thank you for allowing us to participate in the care of your patient. [id number] * US PICC Line Vascular Insertion (11/11/2016 5:32 PM) Specimen Performing Laboratory [facility] [place] [address] Narrative Examination:PICC LINE INSERTION US Clinical history:"GASTROPARESIS, [...] sheath was placed over the wire.A 5 Syrian catheter was severed to 39 cm in length.The catheter was introduced dnky-rve-ljhl and positioned using real-time fluoroscopic guidance with [...] Complications:None. Specimens removed:None. Assistants:None. IMPRESSION: A power-injectable, 5-Syrian, 39 cm in length peripherally inserted central catheter (PICC) was placed via the right basilic vein using image guidance and without incident as described above.The catheter is ready for routine use. The patient's indwelling right internal jugularvenous port catheter was removed without incident as described above. Thank you for allowing us to participate in the care of your patient. [id number] Procedure Note Hm Interface, Radiology Conversion - [...] was placed over the wire. A 5 Syrian catheter was severed to 39 cm in length. The catheter was introduced [id number]-wqpx and positioned using real-time fluoroscopic guidance with [...] removed: None. Assistants: None. IMPRESSION: A power-injectable, 5-Syrian, 39 cm in length peripherally inserted central catheter (PICC) was placed via the right basilic vein using image guidance and without incident as described above. The catheter is ready for routine use. The patient's indwelling right internal jugular venous port catheter was removed without incident as described above. Thank you for allowing us to participate in the care of your patient. [facility]-[id number] * Urine eosinophils (11/08/2016 3:00 PM) Component Value Ref Range Eosinophils, urine NONE Specimen Performing Laboratory [facility] DEPARTMENT OF PATHOLOGY AND GENOMIC MEDICINE [address] [place] [address] * Urine drugs of abuse screen (11/08/2016 3:00 PM) Component Value Ref Range Amphetamine screen, urine Negative Methamphetamine screen, Negative urine Barbiturate screen, urine Negative Benzodiazepine screen, Negative urine Cocaine screen, urine Negative Methadone screen, urine FTComment: 11/08/2016 16:19 Testing not performed. [facility] Opiates screen, urine Positive (A) [...] for medical purposes only. Specimen Performing Laboratory [facility] DEPARTMENT OF PATHOLOGY AND GENOMIC MEDICINE [address] [place] [address] * Manual differential (11/07/2016 6:17 AM) Component Value Ref Range Manual differential PERFORMED Neutrophils 97.0 (H) 39.0 - 69.0 % Lymphocytes 3.0 (L) 25.0 - 45.0 % Monocytes 0.0 0.0 - 10.0 % Eosinophils 0.0 0.0 - 5.0 % Basophils 0.0 0.0 - 1.0 % Platelet slide review Carmen adequate Anisocytosis Moderate Polychromasia Moderate Specimen Performing Laboratory [facility] DEPARTMENT OF PATHOLOGY AND GENOMIC MEDICINE [address] [place] [address] * ECG 12 lead (11/07/2016 3:57 AM) Component Value Ref Range Ventricular rate 134 Atrial rate 134 AZ interval 116 QRSD interval 74 QT interval 328 QTC interval 489 P axis 1 68 QRS axis 1 47 T wave axis 33 EKG impression Sinus tachycardia-Septal infarct , age undetermined-Abnormal ECG-In automated comparison with ECG of 15-SEP-2016 06:24,-Septal infarct is now present- Specimen Performing Laboratory [facility] MUSE [address] [place] [address] * Urinalysis (11/07/2016 12:50 AM) Component Value [...] DEPARTMENT OF PATHOLOGY AND GENOMIC MEDICINE, [facility] [address] [place] [address] * hCG qualitative, urine screen (11/07/2016 12:50 AM) Component Value Ref Range hCG qualitative, urine PositiveComment: Sensitivity of HCG test: 25 mIU/ml Specimen Performing Laboratory [facility] DEPARTMENT OF PATHOLOGY AND GENOMIC MEDICINE [address] [place] [address] after 11/01/2016 Insurance Payer Benefit Subscriber ID Type Phone Address Plan / Group [facility] xxxxxxxxx HMO PLAN [facility] MEDICAID MEDICAID xxxxxxxxx Medicaid MEDICARE MEDICARE xxxxxxxxxx Medicare [employer] [place] PART A AND B
--- OUTSIDE RECORDS SUMMARY | 2017-11-02 21:49 | XMS REPORT | Clinical Summary ---
Author Author ZENIA [facility] Address Unknown Phone Unavailable Care Team Providers Care Shuttle Spotter Name Role Phone PCP Unavailable Allergies Active [...] Vomiting 05/14/2017 Abdominal pain 02/23/2017 Diabetic gastroparesis ([facility]) 02/23/2017 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 ([facility]) 02/04/2017 Stage 4 chronic kidney disease ([facility]) 10/25/2016 10/25/2016 Acidemia 10/25/2016 Acute on chronic renal failure ([facility]) 10/13/2016 MIKE (acute kidney injury) ([facility]) 09/01/2016 Proteinuria 09/01/2016 Hypertensive emergency 08/31/2016 Cyclical vomiting, intractable 08/31/2016 Acute cystitis without hematuria 08/31/2016 History of Clostridium difficile 08/31/2016 Diarrhea 08/10/2016 ARF (acute renal failure) ([facility]) 05/06/2016 Intractable cyclical vomiting with nausea 05/05/2016 Accelerated hypertension 02/17/2016 Uncontrolled hypertension 02/05/2016 Diabetic ketoacidosis ([facility]) 01/19/2016 Diabetes ([facility]) 01/01/2016 Diabetic gastroparesis associated with type 1 diabetes mellitus ([facility]) 2015 Uncontrolled diabetes mellitus with hypoglycemia ([facility]) 11/21/2015 Clostridium difficile colitis 11/15/2015 Colitis 11/14/2015 Hyperglycemia 11/03/2015 Hypertensive urgency 08/26/2015 Gastroparesis due to DM ([facility]) 08/26/2015 Intractable nausea and vomiting 08/26/2015 Gastroparesis due to secondary diabetes ([facility]) 07/23/2015 Colitis, acute 05/12/2015 Fever 01/16/2015 DKA (diabetic ketoacidoses) ([facility]) 12/18/2014 HTN (hypertension) 12/18/2014 Exacerbation of Crohn's disease ([facility]) 12/18/2014 Cystitis 12/05/2014 Heart murmur [...] Rodriguez MD Nausea and vomiting in - [facility] adult (Primary 10/29/2017 MD Abdon Dx);Diabetic gastroparesis (HCC);Essential hypertension;ESRD (end stage renal disease) on dialysis (HCC);Generalized abdominal pain 06/15/2017 Emergency Emergency Medicine Senia Rodriguez MD Essential hypertension (Primary Dx);Hypertensive urgency 06/06/2017 Emergency Emergency Medicine Senia Rodriguez MD Nausea (Primary Dx);Generalized abdominal pain;Diabetic gastroparesis ([facility]);Vomiting in adult patient 05/13/2017 [facility] Internal [facility] - Encounter MD Abdon 05/16/2017 05/10/2017 Emergency Emergency Medicine Lydia Lau MD Abdominal pain, - unspecified abdominal 05/11/2017 location (Primary Dx);Nausea and vomiting, intractability of vomiting not specified, unspecified vomiting type 04/10/2017 Emergency Emergency Medicine Skyler Galloway MD Vomiting and diarrhea (Primary Dx);Generalized abdominal pain 02/23/2017 [facility] Internal [facility] Diabetic gastroparesis - Encounter MD Abdon (HCC) (Primary Dx) 02/26/2017 02/23/2017 Orders Only Marshall Rossi, ALICJA 02/03/2017 [facility] Internal Medicine Joshua Obrien MD Hypertensive urgency - Encounter (Primary Dx) 02/05/2017 02/03/2017 Orders Only Caity Angelo RN 01/13/2017 [facility] Internal [facility] Hypertensive urgency - Encounter MD Abdon (Primary Dx) 01/21/2017 01/13/2017 Orders Only Caity Angelo RN 12/30/2016 [facility] General Internal Medicine [place], Liborio Zhanga, Acute [...] Range POC-Glucose Meter 115 (H)Comment: TESTED AT [facility] [address] [facility] 70 - 110 mg/dL [facility] [address] Specimen Performing Laboratory Blood [facility] [address] [address] * CBC with platelet count + automated [...] 0.20 K/ L Specimen Performing Laboratory Blood [facility] [address] [place] [address] * CBC with platelet count + automated diff (10/29/2017 5:02 AM) Only the most recent of 22 results within the time period is included. Specimen Performing Laboratory Blood Narrative The following orders were created for panel order CBC with platelet count + automated diff. Procedure Abnormality Status --------- - ------ CBC with platelet count ...[[id number]]AbnormalFinal result Please view results for these tests [...] FOR DIALYSIS PATIENTS. Specimen Performing Laboratory Blood [facility] [address] [place] [address] * Hepatitis B core antibody, total (10/28/2017 3:53 PM) Only the most recent of 3 results within the time period is included. Component Value Ref Range Hep B Core Total Ab Nonreactive Nonreactive Specimen Performing Laboratory Blood - Arm, [address] [address] * Hepatitis B surface antibody (10/28/2017 3:53 PM) Only the most recent of 6 results within the time period is included. Component Value Ref Range Hep B S Ab 6367.4 (H) <8.0 mIU/mL Specimen Performing Laboratory Blood - Arm, [place] [address] * Hepatitis B surface antigen (10/28/2017 3:53 PM) Only the most recent of 6 results within the time period is included. Component Value Ref Range hepatitis B Surface Ag Nonreactive Nonreactive Specimen Performing Laboratory Blood - Arm, [facility] [address] [place], [place] [address] * Hemoglobin A1c (10/28/2017 5:25 AM) Component Value Ref Range Hemoglobin A1C 9.8 (H) 4.3 - 6.1 % Specimen Performing Laboratory [facility] [address] [place] [address] * Lipid panel (10/28/2017 5:25 AM) Component Value Ref Range Triglycerides 88Comment: Specimen slightly hemolyzed mg/dL Cholesterol 148Comment: Specimen slightly hemolyzed mg/dL HDL 38 mg/dL LDL Calculated 92 mg/dL Specimen Performing Laboratory [facility] [address] [place], [place] [address] Narrative Triglyceride Reference Range: Low Risk <150 [id number] High Risk 200-499 Very High Risk>=500 Cholesterol Reference Range: Low Risk <200 Bqusgidzvi180-733 High Risk>240 HDL Cholesterol Reference Range: Low Risk >=60 High Risk <40 LDL Cholesterol Reference Range: Optimal<100 Near Wlqrwaa630-280 Uomauigymo804-232 Cqyd689-834 Very High >=190 * hCG, quantitative, (10/27/2017 1:53 PM) Component Value Ref Range hCG Quant <2 0 - 10 mIU/mL Specimen Performing Laboratory [facility] [address] [place], [place] [address] Narrative Non- Females: <10 mIU/mL Females: Gestation AgeReference Range(mIU/mL) 0.2-1 Week5-50 1-2 Qqzhc49-464 2-3 Weeks 100-5,000 3-4 Weeks 500-10,000 4-5 Weeks 1,000-50,000 5-6 Weeks10,000-100,000 6-8 Weeks15,000-200,000 2-3 Months 10,000-100,000 * Lipase (10/27/2017 1:36 PM) Only the most recent of 5 results within the time period is included. Component Value Ref Range Lipase 20 6 - 51 U/L Specimen Performing Laboratory Blood [facility] [address] [place], [place] [address] * Ketones, blood (10/27/2017 1:36 PM) Component Value Ref Range Ketones, Blood 0.4 (H) <0.4 mmol/L Specimen Performing Laboratory Blood [facility] [address] [place], [place] [address] * Liver Panel (10/27/2017 1:36 PM) Only [...] 5 - 50 U/L Specimen Performing Laboratory [facility] [address] [place], [place] [address] * RHYTHM STRIP - SCAN (05/19/2017 1:12 [...] Test, Ur Negative Specimen Performing Laboratory Urine [facility] [address] [place], [place] [address] * Magnesium (05/14/2017 4:51 AM) Only the most recent of 3 results within the time period is included. Component Value Ref Range Magnesium 1.8 1.5 - 3.0 mg/dL Specimen Performing Laboratory Blood [facility] [address] [place] [address] * Comprehensive metabolic panel (05/14/2017 4:51 AM) [...] FOR DIALYSIS PATIENTS. Specimen Performing Laboratory Blood [facility] [address] [place], [place] [address] * Rapid drug screen, urine (05/11/2017 12:08 AM) Component Value Ref Range Barbiturate Screen Negative Negative Benzodiazepine Screen Negative Negative Cocaine (Metab.) Screen Negative Negative Opiate Screen Negative Negative Cannabinoid Screen Negative Negative Amph/Methamph Screen Negative Negative Phencyclidine Screen Negative Negative Specimen Performing Laboratory Urine [facility] [address] [place] [address] Narrative DRUGCUTOFF CONC. Cocaine 300 ng/mL Pcztrquydcl30 ng/mL Xffaokjjjbnynw477 ng/mL Barbiturate 200 ng/mL Cltwobgftnwon07 ng/mL Xngcgg281 ng/mL Methadone 300 ng/mL Amphetamine/ 1000 ng/mL Methamphetamine This assay provides an unconfirmed qualitative test result for the clinical management of patients in emergency situations. Chain of custody not maintained. Some gaxq-igw-xvogurk medications, as well as adulterants, may cause inaccurate results. Clinical correlation should be applied. A more comprehensive drug screen or confirmation of a detected drug may be performed upon request. * Urinalysis w/Microscopic (05/11/2017 12:07 AM) Only the most recent of 3 results within the time period is included. Component Value Ref Range Color, UA Yellow Clarity, UA Clear Specific [place], UA 1.020 1.001 - 1.035 pH, UA [...] /HPF Specimen Source Specimen Performing Laboratory Urine [facility] [address] [place] [address] * Blood culture (02/24/2017 6:37 PM) Component Value Ref Range Result No growth in 5 days Specimen Performing Laboratory Blood - Arm, Left [facility] [address] [place] [address] * CARDIAC CATH REPORT - SCAN (01/22/2017 [...] MD Report Verified Date/Time:01/21/2017 11:56:16 Reading Location: [facility] Radiology Reading Room Procedure Note Interface, External [...] Report Verified Date/Time: 01/21/2017 11:56:16 Reading Location: [facility] Radiology Reading Room * TRANSFUSION SERVICE REPORT - SCAN (01/17/2017 5:30 PM) Only the most recent of 2 results within the time period is included. * Phosphorus (01/17/2017 5:39 AM) Only the most recent of 8 results within the time period is included. Component Value Ref Range Phosphorus 2.8 2.5 - 4.5 mg/dL Specimen Performing Laboratory Blood [facility] [address] [place] [address] * Prepare Leuko-Red RBC (01/16/2017 11:55 PM) Component Value Ref Range CROSSMATCH COMPATIBLE Unit ABO O Neg UNIT NUMBER [id number] Status TRANSFUSED Blood Bank Product RED BLOOD CELLS PRODUCT CODE [id number] CROSSMATCH COMPATIBLE Unit ABO O Neg UNIT NUMBER [id number] Status TRANSFUSED Blood Bank Product RED BLOOD CELLS PRODUCT CODE [id number] Specimen Performing Laboratory Other [facility] [place] * Antibody identification (01/16/2017 9:47 AM) Component Value Ref Range ANTIBODY ID (JIM) RHOGAM DComment: Testing performed by: [facility], [address] [place] [address] [place] [address] Antibody Consult SIGNED OUTComment: Anti-D due to RhIGElectronic Signature: Neville Olivares M.D. Specimen Performing Laboratory [facility] [place] * Type and screen (01/15/2017 12:04 PM) Component Value Ref Range Ab Scrn POSITIVE ABO Grouping O Rh Factor NEG Specimen Performing [place] [address] * Creatinine, random urine (01/15/2017 11:29 AM) Only the most recent of 2 results within the time period is included. Component Value Ref Range Creatinine, Ur 58.2 mg/dL Specimen Performing Laboratory Urine [facility] [address] [place] [address] Narrative Reference Range: No Normals * Protein, random urine (01/15/2017 11:26 AM) Only the most recent of 2 results within the time period is included. Component Value Ref Range Protein, Urine 1376 (H) 0 - 14 mg/dL Specimen Performing Laboratory Urine - Urine, Voided [facility] [address] [place] [address] * IR central venous catheter placement (jugular [...] MD Report Verified Date/Time:01/15/2017 11:44:50 Reading Location: [facility] Radiology Reading Room Procedure Note Interface, External [...] Report Verified Date/Time: 01/15/2017 11:44:50 Reading Location: [facility] Radiology Reading Room * IR Tunneled Catheter Insertion (01/14/2017 11:50 AM) Specimen Performing Laboratory GE RIS Narrative FINAL REPORT Waste Transportation Technician: Dima History: End-stage renal disease . Technique: [...] MD Report Verified Date/Time:01/14/2017 15:34:03 Reading Location: [facility] Radiology Reading Room Procedure Note Interface, External Ris In - 01/14/2017 3:36 PM CDT FINAL REPORT Waste Transportation Technician: Dima History: End-stage renal disease . Technique: [...] Report Verified Date/Time: 01/14/2017 15:34:03 Reading Location: [facility] Radiology Reading Room * US renal biopsy [...] MD Report Verified Date/Time:01/04/2017 14:00:02 Reading Location: [facility] Radiology Reading Room Procedure Note Interface, External [...] Report Verified Date/Time: 01/04/2017 14:00:02 Reading Location: [facility] Radiology Reading Room * Tissue Exam (01/04/2017 10:30 AM) Component Value Ref Range Case Report Surgical Pathology Report Case: [id number] Authorizing Provider: Trevor Casrto MD Collected: 01/04/2017 1030 Ordering Location: [facility] Med Surg 5th Floor Received: 12/17 [...] to Dr. Castro on 01/14/2017. 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 Fibrinogen: diffuse, glomerular and tubulointerstitial, weak. [place]: negative glomeruli; tubular casts are positive Lambda: [...] to approximately 1080 nm (normal adult female llknqoz=729 - 394 nm; Deanna Manzano, Arch Pathol Lab Med 133:224-232). The mesangial matrix is markedly expanded and nodular in places. Focal mesangial hypercellularity is present. Subendothelial, subepithelial, and mesangial/paramesangial electron-dense, immune complex-type deposits are not present. Focal hyaline deposition is noted. Podocyte foot processes are extensively effaced. Tubular basement membranes are thickened. Specimen Performing Laboratory Tissue - Renal Pelvis [address] [address] * Prothrombin time/INR (01/04/2017 5:03 AM) Only the most recent of 2 results within the time period is included. Component Value Ref Range Protime 9.5 9.3 - 12.0 seconds INR 0.9 <=5.9 Specimen Performing Laboratory Blood - Arm, Left [facility] [address] [place] [address] Narrative RECOMMENDED COUMADIN/WARFARIN INR THERAPY RANGES STANDARD [...] - 8.3 gm/dL Specimen Performing Laboratory Blood [address] [address] * Complement Component C3 (01/02/2017 11:41 AM) Component Value Ref Range C3 Complement 110 82 - 193 mg/dL Specimen Performing Laboratory Blood [address] [address] Narrative Effective 06/05/2014: Reference Range Change New: 82-193 Previous: 79-152 * Complement Component C4 (01/02/2017 11:41 AM) Component Value Ref Range C4 Complement 42 15 - 57 mg/dL Specimen Performing Laboratory Blood [address] [address] Narrative Effective 06/05/2014: Reference Range Change New: 15-57 Previous: 16-38 * Anti-Nuclear Antibody (PHILOMENA) (01/02/2017 11:41 AM) Component Value Ref Range PHILOMENA Negative Negative Specimen Performing Laboratory Blood [address] [address] * Urinalysis w/Microscopic + Reflex to Culture (12/31/2016 7:05 PM) Component Value Ref Range Color, UA Yellow Clarity, UA Clear Specific [place]if[place], UA 1.020 1.001 - 1.035 pH, UA [...] /HPF Specimen Source Specimen Performing Laboratory Urine [facility] [address] [place] [address] * PIV Insertion (12/30/2016 11:27 PM) Liborio [...] Specimen Performing Laboratory Blood - Arm, Right [facility] [address] [facility] [place] [address] after 11/01/2016
[2017-11-02 22:11] VITALS: BP 106/53
[2017-11-02 22:29] VITALS: BP 106/53
[2017-11-02 22:56] VITALS: BP 106/53
[2017-11-03] VITALS (8 sets, daily range): BP systolic 90–118; BP diastolic 50–75
[2017-11-03] MEDS: MORPHINE SULFATE 2 MG/ML SYR IV PRN ×3 (04:00→18:23)
[2017-11-03] MEDS ORDERED: ALPRAZOLAM 0.5 MG TAB PO PRN (07:00)
[2017-11-03] MEDS ORDERED: CLONIDINE HCL 0.1 MG/24 HR 1 EA PATCH TD SCH (07:00)
[2017-11-03 07:03] LABS: BASOPHILS % 0.4 % (0.0-1.0); EOSINOPHILS # (AUTO) 0.3 (0.0-0.4); EOSINOPHILS % 4.7 % (0.0-6.0); HEMATOCRIT 33.6 % (34.2-44.1); HEMOGLOBIN 10.7 g/dL (12.0-16.0); LYMPHOCYTES # (AUTO) 2.2 (1.0-3.2); LYMPHOCYTES % 42.1 % (18.0-39.1); MEAN CORPUSCULAR HEMOGLOBIN 28.3 pg (28-32); MEAN CORPUSCULAR HGB CONC 31.8 g/dL (31-35); MEAN CORPUSCULAR VOLUME 88.9 fL (81-99); MONOCYTES # (AUTO) 0.5 (0.2-0.8); NEUTROPHILS # (AUTO) 2.2 (2.1-6.9); PLATELET COUNT 266 x10e3/uL (140-360); RED BLOOD COUNT 3.78 x10e6/uL (3.6-5.1); RED CELL DISTRIBUTION WIDTH 13.3 % (11.7-14.4)
[2017-11-03] MEDS: INSULIN DETEMIR 100 UNIT/ML PEN SQ SCH ×2 (07:15→18:20)
[2017-11-03] MEDS: INSULIN REGULAR, HUMAN 100 UNIT/1 ML 3ML VIAL SQ SCH ×4 (07:30→20:55)
[2017-11-03] MEDS ORDERED: NON-FORMULARY MEDICATION (Insulin Lispro (Humalog) 10 UNITS) SC SCH (07:30)
[2017-11-03] MEDS: INSULIN LISPRO 100 UNIT/1 ML 3ML VIAL SQ SCH ×3 (07:30→17:50)
[2017-11-03 07:39] LABS: ALANINE AMINOTRANSFERASE < 6 IU/L (0-55); ALBUMIN 3.1 g/dL (3.5-5.0); ALBUMIN/GLOBULIN RATIO 0.9 (0.8-2.0); ALKALINE PHOSPHATASE 74 IU/L (40-150); AMYLASE 70 U/L (25-125); BLOOD UREA NITROGEN 30 mg/dL (7-26); BUN/CREATININE RATIO 4 (6-25); CALCIUM 7.9 mg/dL (8.4-10.2); CARBON DIOXIDE 28 mmol/L (22-29); CHLORIDE 94 mmol/L (98-107); CREATININE, SERUM 6.77 mg/dL (0.57-1.11); EST GLOMERULAR FILTRATION RATE 9 ML/MIN (60-); GLUCOSE 161 mg/dL (74-118); LIPASE 9 U/L (8-78); SODIUM 135 mmol/L (136-145)
[2017-11-03 07:50] LABS: CHOL/HDL RATIO 4.4 (3.0-3.6)
[2017-11-03] MEDS ORDERED: METRONIDAZOLE 250MG/NS 50ML 50 ML IV SCH (08:00)
--- NOTE | 2017-11-03 08:36 | History and Physical ---
PRIMARY CARE PHYSICIAN: Dr. Maria Ines Westfall in [place] CHIEF COMPLAINT: Nausea, vomiting and diarrhea. HISTORY OF PRESENT ILLNESS: This is a 27-year-old woman with a history of diabetic gastroparesis and recurrent gastroenteritis, now developing nausea, vomiting and diarrhea for the past 2 days. Denies any fever. Denies any . She did have abdominal pain. She was admitted for further evaluation and management. PAST MEDICAL HISTORY: Diabetic gastroparesis, diabetes mellitus, type 1, diabetic nephropathy, end-stage renal disease, on hemodialysis, recurrent nausea and vomiting secondary to gastritis, dehydration, coronary artery disease, hypertension, anemia of chronic disease, Crohn's disease, depression. PAST SURGICAL HISTORY: Cholecystectomy. ALLERGIES: PER ELECTRONIC MEDICAL RECORD. FAMILY HISTORY/SOCIAL HISTORY: Patient denies any alcohol, illicits or cigarettes. MEDICATIONS: Per electronic medical record. REVIEW OF SYSTEMS: Denies any dizziness or chest pain. PHYSICAL EXAMINATION VITAL SIGNS: Reviewed. GENERAL: A tired-appearing woman resting in bed. HEENT: Anicteric. Pupils respond to light. No oral lesions. CARDIOVASCULAR: Normal S1 and S2. LUNGS: Moderate breath sounds. ABDOMEN: Soft and nondistended. She has tenderness diffusely in the abdomen. No rebound. EXTREMITIES: No edema. She has a left arm bruit from her hemodialysis access. SKIN: Dry. PSYCHIATRIC: Flat affect. LABS: Reviewed. MEDICATIONS: Reviewed. ASSESSMENT AND PLAN: This is a 27-year-old woman with: 1. Diabetic gastroparesis: Unable to use Reglan due to mixed dyskinesia side effect. Therefore, will use only gabapentin. Will consider erythromycin base. 2. Diabetes mellitus, type 1: Resume home medications. Check hemoglobin A1c and lipid panel. 3. End-stage renal disease, on hemodialysis: Reconsult nephrology. 4. Crohn's disease: Will treat symptomatically. 5. Anxiety disorder: Will continue with alprazolam. 6. Hypertension: Continue hydralazine and clonidine. 7. Prophylaxis: Will use sequential compression devices and Pepcid. 8. Disposition: Monitor closely. Treat with gabapentin. Will cover empirically with Flagyl and follow up for improvement. Job#: [id number] [place]
[2017-11-03] MEDS ORDERED: METOCLOPRAMIDE HCL 10 MG TAB PO SCH (09:00)
[2017-11-03] MEDS ORDERED: INSULIN DETEMIR 35 UNIT SC SCH (09:00)
[2017-11-03] MEDS: FAMOTIDINE 20 MG/2 ML VIAL IV SCH ×2 (09:52→17:50)
--- NOTE | 2017-11-03 10:32 | Consultation ---
DATE OF CONSULTATION: November 03, 2017 HISTORY OF PRESENT ILLNESS: Ms. Charito Gonzalez known to me from prior admission. Aboexa-mpn-ogio-old female admitted with abdominal pain; underlying end-stage renal disease, on dialysis, Gkvlant-Ytzrovmm-Fansikyy, last dialysis done yesterday. Received her full treatment. Denies any headache, shortness of breath. Admits to abdominal pain. She has prior history of inflammatory bowel disease, Crohn's disease. Has type 2 diabetes, end-organ damage, retinopathy, neuropathy, end-stage renal disease, diabetic gastroparesis, frequent episodes of nausea, vomiting, and abdominal pain. SOCIAL HISTORY: . Does not smoke or drink. ALLERGIES: ZOFRAN, KETOROLAC, METOCLOPRAMIDE, AND TIZANIDINE. CURRENT MEDICATIONS: Patient is on: 1. Flagyl 250 mg IV. 2. On normal saline at 125 mL an hour, which I am going to stop. 3. Promethazine p.r.n. 4. Xanax 1 mg p.o. q.6h. p.r.n. anxiety. 5. Clonidine-TTS 0.1 every 7 days. 6. Bentyl 20 mg IM x1. 7. She received Benadryl for itching and p.r.n. basis. 8. She is on famotidine 20 mg IV b.i.d. 9. Hydralazine 25 mg p.o. q.8. 10. Gabapentin 100 mg p.o. q.8. 11. Insulin. 12. 5 mg p.o. q.12. 13. Morphine sulfate p.r.n. 14. Insulin Lispro 10 units subcutaneous q.a.c. FAMILY HISTORY: Significant for hypertension. CURRENT LABS: White count 5.3, hemoglobin 10.7 with a potassium of 4, creatinine 6.77. Amylase and lipase 70 and 9 respectively. PHYSICAL EXAMINATION: GENERAL: Awake, alert, lying supine, in no apparent distress. VITAL SIGNS: With a blood pressure of 98/50, pulse rate 93, afebrile. HEENT: Head and neck: Cornea clear. Oral mucosa dry. LUNGS: Harsh vesicular breath sounds, relatively clear. HEART: S1, S2 audible. ABDOMEN: Otherwise soft, nontender. No deep palpation done. LOWER EXTREMITIES: Showed no edema. IMPRESSION AND PLAN: 1. Abdominal pain, etiology unclear, could be gastroparesis, gastritis. Defer to primary care physician and gastroenterology. Mildly hypotensive, but asymptomatic. Will discontinue intravenous fluids. Currently no indications for dialysis. I will hold off on the clonidine patch and hydralazine, will stop both of them. 2. Place on a renal diet, potassium restriction. Dialysis will be arranged for tomorrow. Job#: [id number]
[2017-11-03] MEDS: GABAPENTIN 100 MG CAP PO SCH ×2 (14:00→21:00)
[2017-11-03] MEDS ORDERED: HYDRALAZINE HCL 25 MG TAB PO SCH (14:00)
[2017-11-03] MEDS ORDERED: SODIUM CHLORIDE 0.9% 500ML 500 ML ONE (16:20)
[2017-11-03] MEDS ORDERED: PROPOFOL IV EMULSION 10 MG/ML 50 ML VIAL ONE (16:53)
--- NOTE | 2017-11-03 16:59 | Operative Report ---
DATE OF PROCEDURE: November 03, 2017 REFERRING PHYSICIAN: Dr. Jessi Wesley. PROCEDURE PERFORMED: Esophagogastroduodenoscopy with biopsies. INDICATIONS FOR EGD: Upper abdominal pain, nausea and vomiting. MEDICATION: Patient was done under MAC. Please see anesthesiologist's note. PROCEDURE: With the patient in the left lateral decubitus position, the flexible fiberoptic Olympus gastroscope was introduced into the esophagus under direct visualization without any difficulty. There was some patchy erythema noted in the distal esophagus. The scope was then advanced with ease into the stomach. Mucosa overlying the antrum and the body revealed some diffuse erythema and moderate edema, and biopsies were obtained and sent to stain for H. pylori. Pylorus appeared to be of normal contour and shape. It was intubated with ease, and the scope was advanced all the way to the 2nd portion of the duodenum. The scope was then withdrawn slowly. Mucosa overlying the proximal 2nd portion and the duodenal bulb appeared to be within normal limits. The scope was then withdrawn back into the stomach and retroflexed. Mucosa overlying the fundus and the cardia appeared to be within normal limits. The scope was then straightened out. The stomach was decompressed. The scope was subsequently withdrawn. Patient tolerated the procedure well. IMPRESSION 1. Distal esophagitis. 2. Gastritis, biopsied. Biopsies sent to stain for H. pylori. PLAN: Follow up histology. Initiate full liquid diet. Job#: [id number] MH cc:JESSI WESLEY MD
[2017-11-03] MEDS: PROMETHAZINE 12.5MG/ NACL 0.9% 50 ML IV PRN (18:23)
[2017-11-03] MEDS ORDERED: FENTANYL CITRATE/PF 100MCG/2 ML INJ ONE (20:05)
[2017-11-03] MEDS ORDERED: MIDAZOLAM HCL 2 MG/2 ML VIAL ONE (20:05)
[2017-11-04] VITALS (8 sets, daily range): BP systolic 84–109; BP diastolic 47–71
[2017-11-04] MEDS: MORPHINE SULFATE 2 MG/ML SYR IV PRN (01:19)
[2017-11-04] MEDS: GABAPENTIN 100 MG CAP PO SCH ×3 (05:22→21:53)
[2017-11-04] MEDS: INSULIN DETEMIR 100 UNIT/ML PEN SQ SCH ×2 (07:15→16:56)
[2017-11-04] MEDS: INSULIN LISPRO 100 UNIT/1 ML 3ML VIAL SQ SCH ×3 (07:30→16:56)
[2017-11-04] MEDS: INSULIN REGULAR, HUMAN 100 UNIT/1 ML 3ML VIAL SQ SCH ×4 (07:30→21:53)
[2017-11-04] MEDS ORDERED: ALPRAZOLAM 1 MG TAB PO PRN (08:00)
--- NOTE | 2017-11-04 08:33 | Progress Note ---
DATE: November 04, 2017 TIME: 6:30 a.m. OVERNIGHT: Feeling a little better. REVIEW OF SYSTEMS: Denies any dizziness. PHYSICAL EXAMINATION VITAL SIGNS: Reviewed. GENERAL: A tired-appearing woman resting in bed. HEENT: Anicteric. CARDIOVASCULAR: Normal S1 and S2. LUNGS: Moderate breath sounds. ABDOMEN: Soft and nondistended. Mild tenderness in the abdomen diffusely. EXTREMITIES: No edema. She has left arm HD access. SKIN: Dry. PSYCHIATRIC: Normal affect. LABS: Reviewed. MEDICATIONS: Reviewed. ASSESSMENT: This is a 27-year-old woman with: 1. Diabetic gastroparesis. 2. Diabetes mellitus, type 1. 3. End-stage renal disease, on hemodialysis. 4. Crohn's disease. 5. Anxiety disorder. 6. Hypertension. PLAN 1. Continue insulin regimen. 2. Continue gabapentin. 3. Continue alprazolam. 4. Continue Flagyl. 5. Continue supportive care and await clinical improvement. 6. Follow up labs. Follow up hepatitis panel as well. Job#: [id number] DOUGLAS
[2017-11-04] MEDS ORDERED: CLONIDINE HCL 0.1 MG/24 HR 1 EA PATCH TD SCH (09:00)
[2017-11-04] MEDS: FAMOTIDINE 20 MG/2 ML VIAL IV SCH ×2 (09:00→16:22)
[2017-11-04] MEDS ORDERED: SODIUM CHLORIDE 0.9% 1000ML 2,000 ML ONE (10:06)
[2017-11-04] MEDS ORDERED: SODIUM CHLORIDE 0.9% 1000ML 2,000 ML IV PRN (10:15)
[2017-11-04] MEDS ORDERED: ALBUMIN HUMAN 12.5GM / 50ML IV PRN (10:15)
[2017-11-04] MEDS ORDERED: METRONIDAZOLE 250MG/NS 50ML 50 ML IV SCH (17:00)
[2017-11-05] VITALS: BP 107/52
[2017-11-05 04:00] VITALS: BP 134/70
[2017-11-05] MEDS: GABAPENTIN 100 MG CAP PO SCH (06:02)
[2017-11-05] MEDS ORDERED: GABAPENTIN100 MG PO (06:52)
[2017-11-05] MEDS ORDERED: PEPCID20 MG PO (06:52)
[2017-11-05] MEDS ORDERED: FLAGYL500 MG PO (06:54)
[2017-11-05 07:21] LABS: BASOPHILS % 0.6 % (0.0-1.0); EOSINOPHILS # (AUTO) 0.4 (0.0-0.4); EOSINOPHILS % 7.9 % (0.0-6.0); HEMATOCRIT 31.1 % (34.2-44.1); HEMOGLOBIN 9.5 g/dL (12.0-16.0); LYMPHOCYTES # (AUTO) 1.8 (1.0-3.2); MEAN CORPUSCULAR HEMOGLOBIN 28.2 pg (28-32); MEAN CORPUSCULAR HGB CONC 30.5 g/dL (31-35); MEAN CORPUSCULAR VOLUME 92.3 fL (81-99); MONOCYTES # (AUTO) 0.5 (0.2-0.8); MONOCYTES % 9.1 % (4.4-11.3); NEUTROPHILS # (AUTO) 2.6 (2.1-6.9); PLATELET COUNT 238 x10e3/uL (140-360); RED BLOOD COUNT 3.37 x10e6/uL (3.6-5.1)
[2017-11-05] MEDS: INSULIN REGULAR, HUMAN 100 UNIT/1 ML 3ML VIAL SQ SCH ×2 (07:30→08:11)
[2017-11-05 07:33] LABS: ANION GAP 16.7 mmol/L (8-16); CALCIUM 8.3 mg/dL (8.4-10.2); CREATININE, SERUM 6.46 mg/dL (0.57-1.11); POTASSIUM 4.7 mmol/L (3.5-5.1)
[2017-11-05 07:45] VITALS: BP 134/70
[2017-11-05 07:53] VITALS: BP 133/80
[2017-11-05] MEDS: INSULIN DETEMIR 100 UNIT/ML PEN SQ SCH (08:10)
[2017-11-05] MEDS: FAMOTIDINE 20 MG/2 ML VIAL IV SCH (08:11)
[2017-11-05] MEDS: INSULIN LISPRO 100 UNIT/1 ML 3ML VIAL SQ SCH (08:11)
--- NOTE | 2017-11-08 07:43 | Discharge Summary ---
PRINCIPAL DIAGNOSES 1. Diabetic gastroparesis. 2. Diabetes mellitus, type 1. 3. Anxiety disorder. SECONDARY DIAGNOSIS: End-stage renal disease on hemodialysis. CHIEF COMPLAINT: Abdominal pain. HISTORY OF PRESENT ILLNESS: This is a 27-year-old woman with abdominal pain. Please refer to the H and P for further details. HOSPITAL COURSE: The patient was found to have diabetic gastroparesis. She was started on gabapentin. Also, anxiety affecting her status. She was started on alprazolam. The patient also received Flagyl. She did well and subsequently transitioned out of the hospital. DISCHARGE MEDICATIONS: Per electronic medical record. FOLLOWUP: With primary care doctor in 1 week. CONDITION ON DISCHARGE: Stable and improving. DISCHARGE LOCATION: Home. JESSI WESLEY MD Job#: [id number]
== END 2017-11-05 09:30 | disposition home or self-care (01) | DRG 73 ==
LOC: ER 16:26 → MED/SURG 21:44
PROVIDERS: ADMIT Internal Medicine; ATTEND Internal Medicine
PROC: 05HQ33Z Insertion of Infusion Device into Left External Jugular Vein, Percutaneous Approach (ICD-10-PCS; 2017-11-02)
PROC: 0DB78ZX Excision of Stomach, Pylorus, Via Natural or Artificial Opening Endoscopic, Diagnostic (ICD-10-PCS; principal; 2017-11-03 15:30)
PROC: 5A1D70Z Performance of Urinary Filtration, Intermittent, Less than 6 Hours Per Day (ICD-10-PCS; 2017-11-04)
DX: E10.43 Type 1 diabetes mellitus with diabetic autonomic (poly)neuropathy (principal); N18.6 End stage renal disease; I12.0 Hypertensive chronic kidney disease with stage 5 chronic kidney disease or end stage renal disease; K50.90 Crohn's disease, unspecified, without complications; I95.9 Hypotension, unspecified; E10.21 Type 1 diabetes mellitus with diabetic nephropathy; K31.84 Gastroparesis; E10.22 Type 1 diabetes mellitus with diabetic chronic kidney disease; E10.319 Type 1 diabetes mellitus with unspecified diabetic retinopathy without macular edema; E10.40 Type 1 diabetes mellitus with diabetic neuropathy, unspecified; Z99.2 Dependence on renal dialysis; K20.9 Esophagitis, unspecified; K29.70 Gastritis, unspecified, without bleeding; E86.0 Dehydration; I25.10 Atherosclerotic heart disease of native coronary artery without angina pectoris; D63.1 Anemia in chronic kidney disease; F41.9 Anxiety disorder, unspecified; F32.9 Major depressive disorder, single episode, unspecified; Z79.4 Long term (current) use of insulin
CPT/HCPCS: 36415; 43239; 71045; 80048; 80053; 80061; 82150; 82948; 83036; 83690; 84702; 85025; 86704; 86705; 86707; 87340; 88305; 88312; 90962; 93005; 99284; J0500; J1200; J2250; J2270; J2550; J7030; J7040

== ENCOUNTER 2017-12-18 20:03 | Emergency (ER) | payer MEDICARE ==
[~2017-12-18] VITALS: Ht 157.5 cm; Wt 58.1 kg
[~2017-12-18 20:03] MED LIST changes: +CATAPRES-TTS 11 EACH TD; +GABAPENTIN100 MG PO; +HUMALOG100 UNIT/1 SC; +LEVEMIR100 UNIT/1 SC; +PEPCID20 MG PO; +XANAX0.5 MG PO
--- OUTSIDE RECORDS SUMMARY | 2017-12-18 20:06 | XMS REPORT | Clinical Summary ---
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 Interface, Radiology Results Incoming - 04/20/2017 3:46 PM CDT EXAMINATION: MRI BRAIN VENOGRAM CLINICAL HISTORY: HEADACHE ACUTE SEVERE THUNDERCLAP WORST BRAN OF LIFE COMPARISON: Concurrent brain MRI on 04/20/2017. TECHNIQUE: Head MRV using 2D ovap-ei-focjsk technique with multiplanar MIP reconstruction. FINDINGS: The [...] exclude thrombus. Recommend CTV for further evaluation. [id number] * MRI Brain Wo Contrast (04/20/2017 3:00 PM) Only the most recent of 3 results within the time period is included. Specimen Performing Laboratory [facility] [address] [place] [address] Narrative EXAMINATION:MRI BRAIN WO CONTRAST CLINICAL HISTORY:HEADACHEACUTESEVERETHUNDERCLAPWORST BRAN OF LIFE COMPARISON:April 20, 2017 Findings: No intracranial hemorrhage, acute ischemia, extra-axial fluid collections or parenchymal mass lesions. No hydrocephalus. No suspicious focal bone marrow lesions. Major flow voids are maintained. IMPRESSION: No acute intracranial abnormalities or mass lesions. [facility]-[id number] Procedure Note Interface, Radiology Results Incoming - [...] No acute intracranial abnormalities or mass lesions. [facility]-[id number] * MRA Neck Wo Contrast (04/20/2017 3:00 PM) Only the most recent of 2 results within the time period is included. Specimen Performing [facility] [address] [place] [address] Narrative EXAMINATION:MRA NECK WO CONTRAST CLINICAL HISTORY:HEADACHESAH SUSPECTEDNOT CONFIRMED COMPARISON:February 01, 2017 IMPRESSION: 3-D reconstructions are processed off-line. No narrowing by NASCET criteria of the cervical internal carotid arteries. No hemodynamically significant narrowing of the distal common carotid arteries or visualized extracranial vertebral arteries. [id number] Procedure Note Interface, Radiology Results Incoming - 04/20/2017 3:44 PM CDT EXAMINATION: MRA NECK WO CONTRAST CLINICAL HISTORY: HEADACHE SAH SUSPECTED NOT CONFIRMED COMPARISON: February 01, 2017 IMPRESSION: 3-D reconstructions are processed off-line. No narrowing by NASCET criteria of the cervical internal carotid arteries. No hemodynamically significant narrowing of the distal common carotid arteries or visualized extracranial vertebral arteries. [id number] * MRA Head Wo Contrast (04/20/2017 3:00 PM) Only the most recent of 2 results within the time period is included. Specimen Performing Laboratory [facility] [address] [place] [address] Narrative EXAMINATION:MRA HEAD WO CONTRAST CLINICAL HISTORY:HEADACHEACUTESEVERETHUNDERCLAPWORST BRAN OF LIFE COMPARISON:Concurrent brain MRI on 04/20/2017. TECHNIQUE: Head MRA using 3D sfgr-ld-vgsrcb technique with multiplanar MIP reconstruction were obtained. FINDINGS: There is normal flow signal with no significant stenosis or occlusion along bilateral intracranial ICAs, ACAs, and MCAs. The anterior communicating artery complex is unremarkable. There is normal flow signal with no significant stenosis or occlusion along bilateral vertebral arteries, basilar artery, cerebellar arteries, and apron trimmer. The vertebral arteries are codominant. The posterior communicating arteries are unremarkable. There is no evidence of cerebral aneurysm in the proximal [place] within limits of MRA technique. IMPRESSION: Unremarkable head MRA with no significant stenosis or occlusion in the proximal [place]. [id number] Procedure Note [facility], Radiology Results Incoming - 04/20/2017 3:37 PM CDT EXAMINATION: MRA HEAD WO CONTRAST CLINICAL HISTORY: HEADACHE ACUTE SEVERE THUNDERCLAP WORST BRAN OF LIFE COMPARISON: Concurrent brain MRI on 04/20/2017. TECHNIQUE: Head MRA using 3D orzm-fx-qibqna technique with multiplanar MIP reconstruction were obtained. FINDINGS: There is normal flow signal with no significant stenosis or occlusion along bilateral intracranial ICAs, ACAs, and MCAs. The anterior communicating artery complex is unremarkable. There is normal flow signal with no significant stenosis or occlusion along bilateral vertebral arteries, basilar artery, cerebellar arteries, and apron trimmer. The vertebral arteries are codominant. The posterior communicating arteries are unremarkable. There is no evidence of cerebral aneurysm in the proximal [place] within limits of MRA technique. IMPRESSION: Unremarkable head MRA with no significant stenosis or occlusion in the proximal [place]. [id number] * Syphilis treponemal IgG (04/20/2017 10:38 AM) Component Value Ref Range Syphilis treponemal IgG Non-reactiveComment: Non-reactive: No serological Non-reactive evidence of Syphilis infection Specimen Performing Laboratory Serum [facility] DEPARTMENT OF PATHOLOGY AND GENOMIC MEDICINE [address] [place] [address] * Rapid HIV 1 & 2 (04/20/2017 10:38 AM) Component Value Ref Range Rapid HIV 1 and 2 Non-Reactive Non-Reactive Specimen Performing Laboratory Blood [facility] DEPARTMENT OF PATHOLOGY AND GENOMIC MEDICINE [address] [place] [address] * Sedimentation rate (04/20/2017 10:38 AM) Only the most recent of 2 results within the time period is included. Component Value Ref Range Sedimentation rate 23 (H) 0 - 20 mm/hr Specimen Performing Laboratory Blood [facility] DEPARTMENT OF PATHOLOGY AND GENOMIC MEDICINE [address] [place] [address] * Thyroid stimulating hormone (04/20/2017 10:38 AM) Component Value Ref Range TSH 1.04 0.27 - 4.20 uIU/mL Specimen Performing Laboratory Blood [facility] DEPARTMENT OF PATHOLOGY AND GENOMIC MEDICINE [address] [place] [address] * Vitamin B12 level (04/20/2017 10:38 AM) Component Value Ref Range Vitamin B12 599 211 - 946 pg/mL Comment: Significant overlap exists between normal and deficiency states. However, most patients with deficiencies will have Serum B12 <200 pg/mL. Specimen Performing Laboratory Serum [facility] DEPARTMENT OF PATHOLOGY AND GENOMIC MEDICINE [address] [place] [address] * Lipid panel (04/20/2017 10:38 AM) Only [...] triglycerides (>=200 mg/dL) Specimen Performing Laboratory Blood [facility] DEPARTMENT OF PATHOLOGY AND GENOMIC MEDICINE [address] [facility] [place] [address] * CT Head Wo Contrast (04/20/2017 8:59 AM) Only the most recent of 2 results within the time period is included. Specimen Performing Laboratory [facility] [address] [place] [address] Narrative EXAMINATION: CT HEAD WO CONTRAST CLINICAL [...] intact. IMPRESSION: No acute intracranial abnormality identified. [facility]-[id number] Procedure Note Hm Interface, Radiology Results Incoming - 04/20/2017 9:06 [...] intact. IMPRESSION: No acute intracranial abnormality identified. [facility]-[id number] * hCG qualitative, serum screen (04/20/2017 8:13 AM) Only the most recent of 4 results within the time period is included. Component Value Ref Range hCG qualitative, serum NegativeComment: Sensitivity of HCG test: 25 mIU/mL Specimen Performing Laboratory Blood [facility] DEPARTMENT OF PATHOLOGY AND GENOMIC MEDICINE [address] [place] [address]. [place] [address] * CK-MB (04/20/2017 6:20 AM) Component Value Ref Range CK-MB 5.5 (H) 1.0 - 5.3 ng/mL Specimen Performing Laboratory Plasma specimen [facility] DEPARTMENT OF PATHOLOGY AND GENOMIC MEDICINE [id number] [place] [id number] * CRITICAL CARE (04/20/2017 4:52 AM) Narrative [...] 1:15 AM) Only the most recent of 3 results within the time period is included. Component Value Ref Range Lactic acid, I-Stat 1.5 0.5 - 2.2 mmol/L Specimen Performing Laboratory Plasma specimen DEPARTMENT OF PATHOLOGY AND GENOMIC MEDICINE, [facility]. [address] [place] [id number] Narrative Test performed at [facility]. * PV duplex venous upper extremity (04/04/2017 10:54 AM) Specimen Performing Laboratory [address] [address] Narrative EXAMINATION:US DUPLEX VENOUS UPPER EXTREMITY LEFT [...] upper extremity, or the contralateral subclavian vein [facility]-[id number] Procedure Note Interface, Radiology Results Incoming - [...] upper extremity, or the contralateral subclavian vein [id number] * GENERAL (04/01/2017 8:33 PM) Narrative ELOISE [...] 1:02 AM) Specimen Performing Laboratory [facility] [address] [place] [address] Narrative Examination:XR ABDOMEN 1 VW PORTABLE Clinical History: ABDOMINAL PAIN, Diarrhea, Vomiting Comparison: None. Findings: Single frontal view of the abdomen is obtained. The bowel gas pattern is unremarkable. No bowel dilatation is seen. No free air is seen. Right upper quadrant surgical clips are noted. IMPRESSION: 1. No focal abnormality identified in the abdomen. [id number] Procedure Note Hm Interface, Radiology Results Incoming - 03/31/2017 1:37 [...] No focal abnormality identified in the abdomen. [id number] * CRITICAL CARE (03/30/2017 6:31 PM) Narrative [...] Site: Arm Right Specimen Performing Laboratory Blood [facility] DEPARTMENT OF PATHOLOGY AND GENOMIC MEDICINE [address] [place] [address] * Blood culture, anaerobic (02/13/2017 11:55 AM) Component Value Ref Range Blood culture isolate, No growth after 5 days of incubation. anaerobic Comment: Specimen Information Specimen Source: Blood Specimen Site: Arm Left Specimen Performing Laboratory Blood [facility] DEPARTMENT OF PATHOLOGY AND GENOMIC MEDICINE [address] [place] [address] * Echocardiogram complete w contrast and 3D [...] E/A ratio 0.81 Specimen Performing Laboratory [facility] [address] [place] [address] Narrative Left Ventricular ejection fraction is 60 [...] speckled (A) Not-Detected Specimen Performing Laboratory Blood [facility] DEPARTMENT OF PATHOLOGY AND GENOMIC MEDICINE [address] [place] [address] * PHILOMENA (01/30/2017 1:16 PM) Component Value Ref Range PHILOMENA screen Detected (A) Not-Detected Specimen Performing Laboratory Blood [facility] DEPARTMENT OF PATHOLOGY AND GENOMIC MEDICINE [address] [place] [address] * Hepatitis B surface Ab, quantitative (01/30/2017 [...] refer to MMWR July 10, 2005/Vol. 54(No. 16);08-10, and for healthcare workers refer to MMWR July 07, 2013/Vol. 62(No. 10);-. Reference Interval: anti-HBs 9.99 IU/L or less ....... Negative 10.00 IU/L or greater .... Positive Results greater than 1,000.00 IU/L are reported as greater than 1,000.00 IU/L. Performed by [employer], [address] [place] [id number] [email or web address], Blade Hoff MD - Lab. Director Specimen Performing Laboratory Serum [facility] [address] [place] [address] * Urinalysis screen and microscopy, with reflex to culture (01/30/2017 12:08 PM) Component Value Ref Range Specimen site Clean [...] None seen UA Specimen Performing Laboratory Urine [facility] DEPARTMENT OF PATHOLOGY AND GENOMIC MEDICINE [address] [facility] [place] [address] * Urine culture (01/30/2017 12:08 PM) Component Value Ref Range Urine culture SEE COMMENTComment: Bacteriuria screen negative. Specimen Performing Laboratory [facility] DEPARTMENT OF PATHOLOGY AND GENOMIC MEDICINE [address] [facility] [place] [address] * PV Duplex Venous Lower Extremity (01/30/2017 8:21 AM) Specimen Performing Laboratory [facility] [address] [place] [address] Narrative EXAMINATION:US DUPLEX VENOUS LOWER EXTREMITY BILATERAL [...] is no evidence of deep venous thrombosis. [id number] Procedure Note Interface, Radiology Results Incoming - [...] is no evidence of deep venous thrombosis. [id number] * CT Stroke Brain Wo Contrast (01/30/2017 5:27 AM) Specimen Performing Laboratory [facility] [address] [place] [address] Narrative EXAMINATION: CT STROKE BRAIN WO CONTRAST [...] at 01/30/2017 5:46 AM who verbalized understanding. [id number] Procedure Note [facility], Radiology Results Incoming - 01/30/2017 5:50 AM [...] at 01/30/2017 5:46 AM who verbalized understanding. [facility]-[id number] after 12/17/2016 Insurance Payer Benefit Subscriber ID Type Phone Address Plan / Group MEDICAID MEDICAID xxxxxxxxx Medicaid MEDICARE MEDICARE xxxxxxxxxx Medicare [place], [place] [address]
--- OUTSIDE RECORDS SUMMARY | 2017-12-18 20:06 | XMS REPORT | Clinical Summary ---
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 ([facility]) 02/04/2017 Stage 4 chronic kidney disease ([facility]) 10/25/2016 10/25/2016 Acidemia 10/25/2016 Acute on chronic renal failure ([facility]) 10/13/2016 MIKE (acute kidney injury) ([facility]) 09/01/2016 Proteinuria 09/01/2016 Hypertensive emergency 08/31/2016 Cyclical vomiting, intractable 08/31/2016 Acute cystitis without hematuria 08/31/2016 History of Clostridium difficile 08/31/2016 Diarrhea 08/10/2016 ARF (acute renal failure) ([facility]) 05/06/2016 Intractable cyclical vomiting with nausea 05/05/2016 Accelerated hypertension 02/17/2016 Uncontrolled hypertension 02/05/2016 Diabetic ketoacidosis ([facility]) 01/19/2016 Diabetes ([facility]) 01/01/2016 Diabetic gastroparesis associated with type 1 diabetes mellitus ([facility]) 2015 Uncontrolled diabetes mellitus with hypoglycemia ([facility]) 11/21/2015 Clostridium difficile colitis 11/15/2015 Colitis 11/14/2015 Hyperglycemia 11/03/2015 Hypertensive urgency 08/26/2015 Gastroparesis due to DM ([facility]) 08/26/2015 Intractable nausea and vomiting 08/26/2015 Gastroparesis due to secondary diabetes ([facility]) 07/23/2015 Colitis, acute 05/12/2015 Fever 01/16/2015 DKA (diabetic ketoacidoses) ([facility]) 12/18/2014 HTN (hypertension) 12/18/2014 Exacerbation of Crohn's disease ([facility]) 12/18/2014 Cystitis 12/05/2014 Heart murmur 12/05/2014 Abdominal [...] Rodriguez MD Nausea and vomiting in - [facility] adult (Primary 10/29/2017 MD Abdon Dx);Diabetic gastroparesis (HCC);Essential hypertension;ESRD (end stage renal disease) on dialysis (HCC);Generalized abdominal pain 06/15/2017 Emergency Emergency Medicine Senia Rodriguez MD Essential hypertension (Primary Dx);Hypertensive urgency 06/06/2017 Emergency Emergency Medicine Senia Rodriguez MD Nausea (Primary Dx);Generalized abdominal pain;Diabetic gastroparesis ([facility]);Vomiting in adult patient 05/13/2017 [facility] - Encounter MD Abdon 05/16/2017 05/10/2017 Emergency Emergency Medicine Lydia Lau MD Abdominal pain, - unspecified abdominal 05/11/2017 location (Primary Dx);Nausea and vomiting, intractability of vomiting not specified, unspecified vomiting type 04/10/2017 Emergency Emergency Medicine Skyler Galloway MD Vomiting and diarrhea (Primary Dx);Generalized abdominal pain 02/23/2017 [facility] Diabetic gastroparesis - Encounter MD Abdon (HCC) (Primary Dx) 02/26/2017 02/23/2017 Orders Only Marshall Rossi, ALICJA 02/03/2017 [facility] Internal Medicine Joshua Obrien MD Hypertensive urgency - Encounter (Primary Dx) 02/05/2017 02/03/2017 Orders Only Caity Angelo RN 01/13/2017 [facility] Hypertensive urgency - Encounter MD Abdon (Primary Dx) 01/21/2017 01/13/2017 Orders Only Caity Angelo RN 12/30/2016 [facility] General Internal Medicine [place], Liborio Zhanga, Acute on chronic renal - Encounter MD failure (HCC) (Primary 01/04/2017 Marcia Westfall Dx);Generalized abdominal PurMD agnes pain;Malignant hypertension;Anasarca after 12/17/2016 Immunizations Name Dates Previously Given [...] procedure are in the results section. after 12/17/2016 Results * POC-Glucose meter (10/29/2017 12:36 PM) Only the most recent of 119 results within the time period is included. Component Value Ref Range POC-Glucose Meter 115 (H)Comment: TESTED AT [facility] [address] [facility] 70 - 110 mg/dL [facility] [address] Specimen Performing Laboratory Blood [facility] [address] [address] * CBC with platelet count + automated [...] 0.20 K/ L Specimen Performing Laboratory Blood [facility] [address] [place] [address] * CBC with platelet count + automated diff (10/29/2017 5:02 AM) Only the most recent of 22 results within the time period is included. Specimen Performing Laboratory Blood Narrative The following orders were created for panel order CBC with platelet count + automated diff. Procedure Abnormality Status --------- - ------ CBC with platelet count ...[[id number]]AbnormalFinal result Please view results for these tests [...] FOR DIALYSIS PATIENTS. Specimen Performing Laboratory Blood [facility] [address] [place] [address] * Hepatitis B core antibody, total (10/28/2017 3:53 PM) Only the most recent of 3 results within the time period is included. Component Value Ref Range Hep B Core Total Ab Nonreactive Nonreactive Specimen Performing Laboratory Blood - Arm, [address] [address] * Hepatitis B surface antibody (10/28/2017 3:53 PM) Only the most recent of 6 results within the time period is included. Component Value Ref Range Hep B S Ab 6367.4 (H) <8.0 mIU/mL Specimen Performing Laboratory Blood - Arm, [place] [address] * Hepatitis B surface antigen (10/28/2017 3:53 PM) Only the most recent of 6 results within the time period is included. Component Value Ref Range hepatitis B Surface Ag Nonreactive Nonreactive Specimen Performing Laboratory Blood - Arm, [facility] [address] [place], [place] [address] * Hemoglobin A1c (10/28/2017 5:25 AM) Component Value Ref Range Hemoglobin A1C 9.8 (H) 4.3 - 6.1 % Specimen Performing Laboratory [facility] [address] [place] [address] * Lipid panel (10/28/2017 5:25 AM) Component Value Ref Range Triglycerides 88Comment: Specimen slightly hemolyzed mg/dL Cholesterol 148Comment: Specimen slightly hemolyzed mg/dL HDL 38 mg/dL LDL Calculated 92 mg/dL Specimen Performing Laboratory [facility] [address] [place], [place] [address] Narrative Triglyceride Reference Range: Low Risk <150 Zthmvhufvr236-496 High Risk 200-499 Very High Risk>=500 Cholesterol Reference Range: Low Risk <200 Bnkpsklppb377-075 High Risk>240 HDL Cholesterol Reference Range: Low Risk >=60 High Risk <40 LDL Cholesterol Reference Range: Optimal<100 Near Unkukgp311-770 Yhlhwwvkvw772-118 Gttr335-132 Very High >=190 * hCG, quantitative, (10/27/2017 1:53 PM) Component Value Ref Range hCG Quant <2 0 - 10 mIU/mL Specimen Performing Laboratory [facility] [address] [place], [place] [address] Narrative Non- Females: <10 mIU/mL Females: Gestation AgeReference Range(mIU/mL) 0.2-1 Week5-50 1-2 Otlxx25-543 2-3 Weeks 100-5,000 3-4 Weeks 500-10,000 4-5 Weeks 1,000-50,000 5-6 Weeks10,000-100,000 6-8 Weeks15,000-200,000 2-3 Months 10,000-100,000 * Lipase (10/27/2017 1:36 PM) Only the most recent of 5 results within the time period is included. Component Value Ref Range Lipase 20 6 - 51 U/L Specimen Performing Laboratory Blood [facility] [address] [place], [place] [address] * Ketones, blood (10/27/2017 1:36 PM) Component Value Ref Range Ketones, Blood 0.4 (H) <0.4 mmol/L Specimen Performing Laboratory Blood [facility] [address] [place], [place] [address] * Liver Panel (10/27/2017 1:36 PM) Only [...] 5 - 50 U/L Specimen Performing Laboratory [facility] [address] [place], [place] [address] * RHYTHM STRIP - SCAN (05/19/2017 1:12 [...] Test, Ur Negative Specimen Performing Laboratory Urine [facility] [address] [place], [place] [address] * Magnesium (05/14/2017 4:51 AM) Only the most recent of 3 results within the time period is included. Component Value Ref Range Magnesium 1.8 1.5 - 3.0 mg/dL Specimen Performing Laboratory Blood [facility] [address] [place] [address] * Comprehensive metabolic panel (05/14/2017 4:51 AM) [...] FOR DIALYSIS PATIENTS. Specimen Performing Laboratory Blood [facility] [address] [place], [place] [address] * Rapid drug screen, urine (05/11/2017 12:08 AM) Component Value Ref Range Barbiturate Screen Negative Negative Benzodiazepine Screen Negative Negative Cocaine (Metab.) Screen Negative Negative Opiate Screen Negative Negative Cannabinoid Screen Negative Negative Amph/Methamph Screen Negative Negative Phencyclidine Screen Negative Negative Specimen Performing Laboratory Urine [facility] [address] [place] [address] Narrative DRUGCUTOFF CONC. Cocaine 300 ng/mL Oxvzjeaohjt83 ng/mL Bjtnojkbadqquc063 ng/mL Barbiturate 200 ng/mL Kvujwhwhhnrof70 ng/mL Mbglty601 ng/mL Methadone 300 ng/mL Amphetamine/ 1000 ng/mL Methamphetamine This assay provides an unconfirmed qualitative test result for the clinical management of patients in emergency situations. Chain of custody not maintained. Some ikcz-vnk-emtgnvv medications, as well as adulterants, may cause inaccurate results. Clinical correlation should be applied. A more comprehensive drug screen or confirmation of a detected drug may be performed upon request. * Urinalysis w/Microscopic (05/11/2017 12:07 AM) Only the most recent of 3 results within the time period is included. Component Value Ref Range Color, UA Yellow Clarity, UA Clear Specific [place], UA 1.020 1.001 - 1.035 pH, UA [...] /HPF Specimen Source Specimen Performing Laboratory Urine [facility] [address] [place] [address] * Blood culture (02/24/2017 6:37 PM) Component Value Ref Range Result No growth in 5 days Specimen Performing Laboratory Blood - Arm, Left [facility] [address] [place] [address] * CARDIAC CATH REPORT - SCAN (01/22/2017 [...] MD Report Verified Date/Time:01/21/2017 11:56:16 Reading Location: [facility] Radiology Reading Room Procedure Note Interface, External [...] Report Verified Date/Time: 01/21/2017 11:56:16 Reading Location: [facility] Radiology Reading Room * TRANSFUSION SERVICE REPORT - SCAN (01/17/2017 5:30 PM) Only the most recent of 2 results within the time period is included. * Phosphorus (01/17/2017 5:39 AM) Only the most recent of 8 results within the time period is included. Component Value Ref Range Phosphorus 2.8 2.5 - 4.5 mg/dL Specimen Performing Laboratory Blood [facility] [address] [place] [address] * Prepare Leuko-Red RBC (01/16/2017 11:55 PM) Component Value Ref Range CROSSMATCH COMPATIBLE Unit ABO O Neg UNIT NUMBER [id number] Status TRANSFUSED Blood Bank Product RED BLOOD CELLS PRODUCT CODE J1979R64 CROSSMATCH COMPATIBLE Unit ABO O Neg UNIT NUMBER [id number] Status TRANSFUSED Blood Bank Product RED BLOOD CELLS PRODUCT CODE O0306Y51 Specimen Performing Laboratory Other [facility] [place] * Antibody identification (01/16/2017 9:47 AM) Component Value Ref Range ANTIBODY ID (JIM) RHOGAM DComment: Testing performed by: [facility], [address] [place] [address] [place] [address] Antibody Consult SIGNED OUTComment: Anti-D due to RhIGElectronic Signature: Neville Olivares M.D. Specimen Performing Laboratory [facility] [place] * Type and screen (01/15/2017 12:04 PM) Component Value Ref Range Ab Scrn POSITIVE ABO Grouping O Rh Factor NEG Specimen Performing [place] [address] * Creatinine, random urine (01/15/2017 11:29 AM) Only the most recent of 2 results within the time period is included. Component Value Ref Range Creatinine, Ur 58.2 mg/dL Specimen Performing Laboratory Urine [facility] [address] [place] [address] Narrative Reference Range: No Normals * Protein, random urine (01/15/2017 11:26 AM) Only the most recent of 2 results within the time period is included. Component Value Ref Range Protein, Urine 1376 (H) 0 - 14 mg/dL Specimen Performing Laboratory Urine - Urine, Voided [facility] [address] [place] [address] * IR central venous catheter placement (jugular [...] MD Report Verified Date/Time:01/15/2017 11:44:50 Reading Location: [facility] Radiology Reading Room Procedure Note Interface, External [...] Report Verified Date/Time: 01/15/2017 11:44:50 Reading Location: [facility] Radiology Reading Room * IR Tunneled Catheter Insertion (01/14/2017 11:50 AM) Specimen Performing Laboratory GE RIS Narrative FINAL REPORT Kitchen Porter: Dima History: End-stage renal disease . Technique: [...] MD Report Verified Date/Time:01/14/2017 15:34:03 Reading Location: [facility] Radiology Reading Room Procedure Note Interface, External Ris In - 01/14/2017 3:36 PM CDT FINAL REPORT Kitchen Porter: Dima History: End-stage renal disease . Technique: [...] Report Verified Date/Time: 01/14/2017 15:34:03 Reading Location: [facility] Radiology Reading Room * US renal biopsy [...] MD Report Verified Date/Time:01/04/2017 14:00:02 Reading Location: [facility] Radiology Reading Room Procedure Note Interface, External [...] Report Verified Date/Time: 01/04/2017 14:00:02 Reading Location: [facility] Radiology Reading Room * Tissue Exam (01/04/2017 10:30 AM) Component Value Ref Range Case Report Surgical Pathology Report Case: [id number] Authorizing Provider: Trevor Castro MD Collected: 01/04/2017 1030 Ordering Location: [facility] Med Surg 5th Floor Received: 12/17 [...] to Dr. Castro on 01/14/2017. 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 Fibrinogen: diffuse, glomerular and tubulointerstitial, weak. [place]: negative glomeruli; tubular casts are positive Lambda: [...] to approximately 1080 nm (normal adult female aslvtjt=693 - 394 nm; Deanna Manzano, Arch Pathol Lab Med 133:224-232). The mesangial matrix is markedly expanded and nodular in places. Focal mesangial hypercellularity is present. Subendothelial, subepithelial, and mesangial/paramesangial electron-dense, immune complex-type deposits are not present. Focal hyaline deposition is noted. Podocyte foot processes are extensively effaced. Tubular basement membranes are thickened. Specimen Performing Laboratory Tissue - Renal Pelvis [address] [address] * Prothrombin time/INR (01/04/2017 5:03 AM) Only the most recent of 2 results within the time period is included. Component Value Ref Range Protime 9.5 9.3 - 12.0 seconds INR 0.9 <=5.9 Specimen Performing Laboratory Blood - Arm, Left [facility] [address] [place] [address] Narrative RECOMMENDED COUMADIN/WARFARIN INR THERAPY RANGES STANDARD [...] - 8.3 gm/dL Specimen Performing Laboratory Blood [address] [address] * Complement Component C3 (01/02/2017 11:41 AM) Component Value Ref Range C3 Complement 110 82 - 193 mg/dL Specimen Performing Laboratory Blood [address] [address] Narrative Effective 06/05/2014: Reference Range Change New: 82-193 Previous: 79-152 * Complement Component C4 (01/02/2017 11:41 AM) Component Value Ref Range C4 Complement 42 15 - 57 mg/dL Specimen Performing Laboratory Blood [address] [address] Narrative Effective 06/05/2014: Reference Range Change New: 15-57 Previous: 16-38 * Anti-Nuclear Antibody (PHILOMENA) (01/02/2017 11:41 AM) Component Value Ref Range PHILOMENA Negative Negative Specimen Performing Laboratory Blood [address] [address] * Urinalysis w/Microscopic + Reflex to Culture (12/31/2016 7:05 PM) Component Value Ref Range Color, UA Yellow Clarity, UA Clear Specific [place], UA 1.020 1.001 - 1.035 pH, UA [...] /HPF Specimen Source Specimen Performing Laboratory Urine [facility] [address] [place] [address] * PIV Insertion (12/30/2016 11:27 PM) Liborio [...] Specimen Performing Laboratory Blood - Arm, Right [facility] [address] [facility] [place] [address] after 12/17/2016
--- OUTSIDE RECORDS SUMMARY | 2017-12-18 20:09 | XMS REPORT | Continuity of Care Document ---
Author Author [facility] Organization 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 No 11/02/17 10:23pm If yes, is advance directive on file with [facility]? No 11/02/17 10:23pm If not on file with [facility] will patient provide a copy? Yes 11/02/17 10:23pm Do you have a Directive to Physician? No 11/02/17 8:33pm Do you have a Medical Power of Design Verification Engineer? No 11/02/17 8:33pm Do you have an out of hospital Do Not Resuscitate Order? No 11/02/17 8:33pm Do you have any special needs we should be aware of? No 11/02/17 8:33pm Do you have a support person here with you today? Yes 11/02/17 8:33pm Did patient receive Notice of Privacy Practices? Yes 11/02/17 8:33pm Did patient receive patient rights and responsibilities? Yes 11/02/17 8:33pm Problems Medical Problem Onset Date Status Abdominal pain 07/20/2014 Acute Acute Crohn's disease 08/28/2014 Acute Crohn disease 07/20/2014 Acute Crohn's colitis 07/20/2014 Acute DKA, type 1 08/28/2014 Acute Dehydration Unknown Diabetes 07/20/2014 Acute Diabetic gastroparesis Unknown Acute ESRD (end stage renal disease) Unknown Hypokalemia 07/20/2014 Acute Hypomagnesemia 07/20/2014 Acute Nausea & vomiting Unknown Vomiting Unknown Acute Medications Current Home Medications Medication Dose Units Route Directions Days Qty Instructions Start Date Alprazolam (Xanax) 0.5 Mg Tablet 1 Mg Oral Every 6 Hours as needed for Anxiety Clonidine (Catapres-Tts 1) 1 Each Patch.tdwk 1 Each Transderm .qweekly Famotidine (Pepcid) 20 Mg Tablet 20 Mg Oral Daily 30 Tab 11/05/17 Gabapentin 100 Mg Capsule 100 Mg Oral Every 8 Hours 30 Days Hydralazine Hcl 25 Mg Tab 25 Mg Oral Every 8 Hours Insulin Detemir (Levemir) 100 Unit/1 Ml Vial 35 Units Subcutaneously Twice A Day Insulin Lispro (Humalog) 100 Unit/1 Ml Cartridge 10 Units Subcutaneously Before Meals Metronidazole (Flagyl) 500 Mg Tablet 500 Mg Oral Post-Dialysis 6 11/05/17 Past Home Medications Medication Directions Ordered Status Alprazolam (Xanax) 2 Mg Tablet, 2 Mg Oral Twice A Day as needed for Agitation Discontinued Aripiprazole (Abilify) 5 Mg Tablet, 5 Mg Oral Daily Discontinued Aripiprazole (Abilify) 30 Mg Tablet, 30 Mg Oral Daily Discontinued Azathioprine (Imuran) 50 Mg Tablet, 100 Mg Oral Daily Discontinued Buprenorphine (Butrans) 1 Each Patch.tdwk, 5 Mcg Topical Use As Directed Discontinued Calcium Carbonate 500MG Chew 500 Mg Chew, 500 Mg Oral Every 12 Hours Discontinued Cefuroxime Axetil (Ceftin) 250 Mg Tablet, 1 Tab Oral Twice A Day Discontinued Clonidine Hcl (Catapres-Tts 3) 1 Ea Patch, 0.3 Mg Transderm Q7 Days Discontinued Clonidine Hcl (Catapres-Tts 3) 1 Ea Patch, 0.3 Mg Transderm Weekly Discontinued Doxycycline Hyclate 100 Mg Capsule, 100 Mg Oral Twice A Day Discontinued Erythromycin Base (Erythromycin) 250 Mg Tablet, 250 Mg Oral Twice A Day Discontinued Fluconazole (Diflucan) 200 Mg Tablet, 200 Mg Oral Daily Discontinued Gabapentin (Neurontin) 100 Mg Capsule, Mg Oral Three Times A Day Discontinued Hydralazine Hcl 25 Mg Tab, 100 Mg Oral Three Times A Day Discontinued Hydrocodone Bit/Acetaminophen (Hydrocodon-Acetaminophn 10-325) 1 Each Tablet, 10 Mg Oral Every 6 Hours as needed for Pain Discontinued Hydrocodone Bit/Acetaminophen (Webb 7.5-325 Tablet) 1 Each Tablet, 1 Ea Oral Twice A Day as needed for Pain Discontinued Infliximab (Remicade) 100 Mg/Vial Vial, Discontinued Insulin Aspart (Novolog) 100 Units/Ml Ml, 10 Units Sub-Q Tid With Each Meal Discontinued Insulin Detemir (Levemir) 100 Unit/1 Ml Vial, 30 Units Sub-Q Every Morning Discontinued Insulin Detemir (Levemir) 100 Unit/1 Ml Vial, 30 Units Sub-Q Bedtime Discontinued Insulin Glargine (Lantus) 100 Units/Ml Ml, 20 Units Sub-Q Twice A Day Discontinued Insulin Lispro (Humalog) 100 Unit/1 Ml Cartridge, 10 Units Sub-Q Three Times Daily With Meals Discontinued Labetalol Hcl 100 Mg Tablet, 100 Mg Oral Twice A Day Discontinued Labetalol Hcl 100 Mg Tablet, 100 Mg Oral Daily Discontinued Levofloxacin (Levaquin) 500 Mg Tablet, 500 Mg Oral Daily Discontinued Levofloxacin (Levaquin) 500 Mg Tablet, 500 Mg Oral Daily Discontinued Lisinopril 10 Mg Tablet, 20 Mg Oral Twice A Day Discontinued Lisinopril/Hydrochlorothiazide (Lisinopril-Hctz 10-12.5 Mg Tab) 1 Each Tablet, 10 Mg Oral Daily Discontinued Mesalamine (Pentasa) 500 Mg Capcr, 1 Cap Oral Rt Q6h Discontinued Metoclopramide Hcl (Reglan) 5 Mg Tablet, Discontinued Metoprolol Tartrate (Lopressor) 25 Mg Tab, 25 Mg Oral Every 12 Hours Discontinued Metronidazole (Flagyl) 500 Mg Tablet, 500 Mg Oral Daily 09/21/17 Discontinued Metronidazole (Flagyl) 500 Mg Tablet, 500 Mg Oral Three Times A Day 09/21/17 Discontinued Metronidazole (Flagyl) 500 Mg Tablet, 500 Mg Oral Three Times A Day Discontinued Ondansetron (Zofran Odt) 4 Mg Tab.rapdis, 4 Mg Oral Every 4-6 Hours as needed Discontinued Pantoprazole Sodium (Protonix) 40 Mg Tablet.dr, 40 Mg Oral Daily Discontinued Pantoprazole Sodium (Protonix) 40 Mg Tablet.dr, 40 Mg Oral Twice A Day Discontinued Pantoprazole Sodium (Protonix) 20 Mg Tablet.dr, 40 Mg Oral Twice A Day Discontinued Prednisone 10 Mg Tab, 1 Tab Oral Rt Q6h Discontinued Promethazine Hcl 25 Mg Tablet, 25 Mg Oral Twice A Day as needed for Nausea And Vomiting Discontinued Promethazine Hcl 12.5 Mg Tablet, Mg Oral Twice A Day Discontinued Quetiapine Fumarate (Seroquel Xr) 400 Mg Tab.er.24h, 400 Mg Oral Daily Discontinued Risperidone (Risperdal) 1 Mg Tablet, 1 Mg Oral Twice A Day Discontinued Risperidone (Risperdal) 1 Mg Tablet, 1 Mg Oral Twice A Day Discontinued Sertraline Hcl (Zoloft) 50 Mg Tablet, 50 Mg Oral Daily Discontinued Sertraline Hcl (Zoloft) 50 Mg Tablet, 50 Mg Oral Daily Discontinued Tramadol Hcl (Ultram 50MG*) 50 Mg Tab, 50 Mg Oral Three Times A Day as needed Discontinued Zolpidem Tartrate (Ambien) 10 Mg Tablet, 10 Mg Oral Bedtime as needed for Insomnia Discontinued Social History Social History Problem Response Recorded Date/Time Onset Date Status Hx Psychiatric Problems No 11/02/2017 10:23pm Not Applicable Not Applicable Hx Eating Disorder No 11/02/2017 10:23pm Not Applicable Not Applicable Hx Substance Use Disorder No 11/02/2017 10:23pm Not Applicable Not Applicable Hx Depression No 11/02/2017 10:23pm Not Applicable Not Applicable Hx Alcohol Use No 11/02/2017 10:23pm Not Applicable Not Applicable Hx Substance Use Treatment No 11/02/2017 10:23pm Not Applicable Not Applicable Hx Physical Abuse No 11/02/2017 10:23pm Not Applicable Not Applicable Smoking Status Start Date Stop Date Never Smoker Hospital Discharge Instructions No hospital discharge instruction information available. Plan of Care Discharge Date 11/05/17 9:30am Disposition HOME, SELF-CARE Instructions/Education Provided Abdominal Pain - Adult Prescriptions See Medication Section Referrals PCP (Internal Medicine) Order Date: 5-7 Days Entered Date: 11/05/2017 6:52am Functional Status Query Response Date Recorded Assistive Devices None November 02, 2017 10:29pm Ambulation Ability Independent November 02, 2017 10:29pm Toileting Ability Independent November 04, 2017 7:12pm Allergies, Adverse Reactions, Alerts Allergen Type Severity Reaction Status Last Updated metoclopramide HCl Adverse Reaction Intermediate "MOUTH SHIFTS TO THE SIDE" Active 07/15/17 ketorolac tromethamine Adverse Reaction Intermediate TREMORS Active Ondansetron Allergy Unknown Active 11/04/17 Tizanidine Allergy Unknown Active 09/19/17 Immunizations No immunization information available. Vital Signs Acute Vital Signs Vital Response Date/Time Temperature (Fahrenheit) 97.8 degrees F (97.6 - 99.5) 11/05/2017 7:53am Pulse Pulse Rate (adult) 91 bpm (60 - 90) 11/05/2017 7:53am Respiratory Rate 18 bpm (12 - 24) 11/05/2017 7:53am Blood Pressure 133/80 mm Hg 11/05/2017 7:53am Height 5 ft 2 in 11/02/2017 4:43pm Weight 128.01 lb 11/05/2017 7:54am Body Mass Index 23.4 kg/m^2 11/05/2017 7:54am Results Laboratory Results Test Name Result Units Flags Reference Collection Date/Time Result Date/ Time Comments B-Type Natriuretic Peptide 1043.5 pg/mL H 0-100 04/23/2017 7:45am 2016 8:41am Creatine Kinase 170 IU/L H 29-168 04/23/2017 7:45am 04/23/2017 8:16am Creatine Kinase MB 4.20 ng/mL 0.00-5.00 04/23/2017 7:45am 04/23/2017 8: 21am Troponin I 0.064 ng/mL 0-0.300 04/23/2017 7:45am 04/23/2017 8:21am Human Chorionic Gonadotropin, Quant < 1.20 mIU/mL 0-10 04/22/2017 11: 15am 04/22/2017 1:08pm Hepatitis B Core Total Antibody Negative Negative 04/23/2017 4:10pm 04/25/2017 10:47pm Hepatitis B Core IgM Antibody Negative Negative 04/23/2017 4:10pm 02/2017 10:47pm Performed at: - [facility] [id number] Site Supervising Technical Operator: Lenny Mendiola MD, Phone: [phone] Prothrombin Time 12.0 seconds 11.9-14.5 07/15/2017 11:45am 07/15/2017 12:52pm Prothromb Time International Ratio 0.85 07/15/2017 11:45am 2016 12:52pm Oral Anticoagulant Therapy INR Values: 1. Low Intensity Therapy 1.5 - 2.0 2. Moderate Intensity Therapy 2.0 - 3.0 3. High Intensity Therapy(1) 2.5 - 3.5 4. High Intensity Therapy(2) 3.0 - 4.0 5. Panic Value INR > 5.0 Activated Partial Thromboplast Time 26.5 seconds 23.8-35.5 07/15/2017 11 :45am 07/15/2017 12:52pm Urine Color YELLOW YELLOW 07/16/2017 12:22pm 07/16/2017 6:42pm Urine Clarity CLEAR CLEAR 07/16/2017 12:22pm 07/16/2017 6:42pm Urine Specific [place] 1.015 1.010-1.025 07/16/2017 12:22pm 2016 6:42pm Urine pH 5 5 - 7 07/16/2017 12:22pm 07/16/2017 6:42pm Urine Leukocyte Esterase 1+ H NEGATIVE 07/16/2017 12:22pm 07/16/2017 6 :42pm Urine Nitrite NEGATIVE NEGATIVE 07/16/2017 12:22pm 07/16/2017 6:42pm Urine Protein 3+ H NEGATIVE 07/16/2017 12:22pm 07/16/2017 6:42pm Urine Glucose (UA) 1+ H NEGATIVE 07/16/2017 12:22pm 07/16/2017 6:42pm Urine Ketones NEGATIVE NEGATIVE 07/16/2017 12:22pm 07/16/2017 6:42pm Urine Urobilinogen 0.2 mg/dL 0.2 - 1 07/16/2017 12:22pm 07/16/2017 6: 42pm Urine Bilirubin NEGATIVE NEGATIVE 07/16/2017 12:22pm 07/16/2017 6: 42pm Urine Blood NEGATIVE NEGATIVE 07/16/2017 12:22pm 07/16/2017 6:42pm Urine WBC 6-10 /HPF H 0-5 07/16/2017 12:22pm 07/16/2017 6:57pm Urine RBC NONE /HPF 0-5 07/16/2017 12:22pm 07/16/2017 6:57pm Urine Bacteria MANY /HPF H NONE 07/16/2017 12:22pm 07/16/2017 6:57pm Urine Epithelial Cells FEW /LPF NONE 07/16/2017 12:22pm 07/16/2017 6: 57pm Magnesium Level 2.0 MG/DL 1.3-2.1 08/01/2017 7:30am 08/01/2017 10:11am Hepatitis B Surface Antigen Negative Negative 09/20/2017 6:30am 09/21 8:22am Performed at: [facility] [id number] Site Supervising Technical Operator: Lenny Mendiola MD, Phone: [phone] White Blood Count 5.30 x10e3/uL 4.8-10.8 11/05/2017 7:10am 11/05/2017 7 :25am Red Blood Count 3.37 x10e6/uL L 3.6-5.1 11/05/2017 7:10am 11/05/2017 7: 25am Hemoglobin 9.5 g/dL L 12.0-16.0 11/05/2017 7:10am 11/05/2017 7:25am Hematocrit 31.1 % L 34.2-44.1 11/05/2017 7:10am 11/05/2017 7:25am Mean Corpuscular Volume 92.3 fL 81-99 11/05/2017 7:10am 11/05/2017 7: 25am Mean Corpuscular Hemoglobin 28.2 pg 28-32 11/05/2017 7:11/05/2017 7:25am Mean Corpuscular Hemoglobin Concent 30.5 g/dL L 31-35 11/05/2017 7:11/05/2017 7:25am Red Cell Distribution Width 13.0 % 11.7-14.4 11/05/2017 7:2017 7:25am Platelet Count 238 x10e3/uL 140-360 11/05/2017 7:11/05/2017 7: 25am Neutrophils (%) (Auto) 48.0 % 38.7-80.0 11/05/2017 7:11/05/2017 7: 25am Lymphocytes (%) (Auto) 34.0 % 18.0-39.1 11/05/2017 7:11/05/2017 7: 25am Monocytes (%) (Auto) 9.1 % 4.4-11.3 11/05/2017 7:11/05/2017 7: 25am Eosinophils (%) (Auto) 7.9 % H 0.0-6.0 11/05/2017 7:11/05/2017 7: 25am Basophils (%) (Auto) 0.6 % 0.0-1.0 11/05/2017 7:11/05/2017 7:25am IM GRANULOCYTES % 0.4 % 0.0-1.0 11/05/2017 7:11/05/2017 7:25am Neutrophils # (Auto) 2.6 2.1-6.9 11/05/2017 7:11/05/2017 7:25am Lymphocytes # (Auto) 1.8 1.0-3.2 11/05/2017 7:11/05/2017 7:25am Monocytes # (Auto) 0.5 0.2-0.8 11/05/2017 7:11/05/2017 7:25am Eosinophils # (Auto) 0.4 0.0-0.4 11/05/2017 7:11/05/2017 7:25am Basophils # (Auto) 0.0 0.0-0.1 11/05/2017 7:11/05/2017 7:25am Absolute Immature Granulocyte (auto 0.02 x10e3/uL 0-0.1 11/05/2017 7: 10a11/05/2017 7:25am Sodium Level 139 mmol/L 136-145 11/05/2017 7:11/05/2017 7:34am Potassium Level 4.7 mmol/L 3.5-5.1 11/05/2017 7:10a11/05/2017 7:34am Chloride Level 100 mmol/L 98-107 11/05/2017 7:11/05/2017 7:34am Carbon Dioxide Level 27 mmol/L 22-29 11/05/2017 7:10a11/05/2017 7: 34am Anion Gap 16.7 mmol/L H 8-16 11/05/2017 7:10a11/05/2017 7:34am Blood Urea Nitrogen 36 mg/dL H 7-11/05/2017 7:11/05/2017 7:34am Creatinine 6.46 mg/dL H 0.57-1.11 11/05/2017 7:11/05/2017 7:34am BUN/Creatinine Ratio 6 6-11/05/2017 7:10a11/05/2017 7:34am Estimat Glomerular Filtration Rate 9 ML/MIN L 60- 11/05/2017 7:10a 7:34am Ranges were taken from the National Kidney Disease Education Program and the National Kid[employer] Foundation literature. Reference ranges: 60 or greater: Normal 16-59 (for 3 consecutive months): Chronic kidney disease 15 or less: Kidney failure Glucose Level 221 mg/dL H 74-118 11/05/2017 7:11/05/2017 7:34am Calcium Level 8.3 mg/dL L 8.4-10.2 11/05/2017 7:10a11/05/2017 7:34am Bedside Glucose 198 mg/dL H 70-120 11/05/2017 7:29am 11/05/2017 7:55am Meter ID: [id number] Hemoglobin A1c Percent 9.5 % H 4.0-7.0 11/03/2017 6:50am 11/03/2017 7: 23am Total Bilirubin 0.4 mg/dL 0.2-1.2 11/03/2017 6:50am 11/03/2017 7:39am Aspartate Amino Transf (AST/SGOT) 6 IU/L 5-34 11/03/2017 6:50am 2017 7:39am Alanine Aminotransferase (ALT/SGPT) < 6 IU/L 0-55 11/03/2017 6:50am 7:39am Total Protein 6.7 g/dL # 6.5-8.1 11/03/2017 6:50am 11/03/2017 7:39am Albumin 3.1 g/dL # L 3.5-5.0 11/03/2017 6:50am 11/03/2017 7:39am Globulin 3.6 g/dL H 2.3-3.5 11/03/2017 6:50am 11/03/2017 7:39am Albumin/Globulin Ratio 0.9 0.8-2.0 11/03/2017 6:50am 11/03/2017 7: 39am Alkaline Phosphatase 74 IU/L 40-150 11/03/2017 6:50am 11/03/2017 7: 39am Triglycerides Level 135 MG/DL 0-149 11/03/2017 6:50am 11/03/2017 7: 52am Cholesterol Level 161 MD/DL 0-199 11/03/2017 6:50am 11/03/2017 7:52am Less than 200 mg/dL Low Risk 201 - 239 mg/dL Borderline Risk 240 mg/dl and greater High Risk LDL Cholesterol 97 MG/DL 60-130 11/03/2017 6:50am 11/03/2017 7:52am HDL Cholesterol 37 MG/DL L 40-60 11/03/2017 6:50am 11/03/2017 7:52am Cholesterol/HDL Ratio 4.4 H 3.0-3.6 11/03/2017 6:50am 11/03/2017 7: 52am Amylase Level 70 U/L 25-125 11/03/2017 6:50am 11/03/2017 7:39am Lipase 9 U/L 8-78 11/03/2017 6:50am 11/03/2017 7:39am Human Chorionic Gonadotropin, Qual NEGATIVE NEGATIVE 11/03/2017 9: 52am 11/03/2017 10:15am Microbiology Results Procedure Source Organism/Result Collection Date/Time Result Date/Time Result Status Blood Culture Blood NO GROWTH AFTER 5 DAYS, FINAL REPORT 04/23/2017 7:45am 04/28/2017 7:48am Final Procedures Procedure Status Date Provider(s) PERFORMANCE OF URINARY FILTRATION, <6 HRS/DAY Completed 04/23/17 SELINA DE LA ROSA PERFORMANCE OF URINARY FILTRATION, <6 HRS/DAY Completed 04/23/17 SELINA DE LA ROSA PERFORMANCE OF URINARY FILTRATION, <6 HRS/DAY Completed 07/16/17 SELINA DE LA ROSA EXCISION OF STOMACH, PYLORUS, ENDO, DIAGN Completed 09/20/17 MICHAEL GUTHRIE MD EXCISION OF STOMACH, ENDO, DIAGN Completed 09/20/17 MICHAEL GUTHRIE MD EGD with biopsy Completed 11/03/17 MICHAEL GUTHRIE MD Computed tomography of abdomen and pelvis with contrast Active 04/22/[address] of abdomen and pelvis without contrast Active 07/15/[address] of abdomen and pelvis without contrast Active 09/19/17 SELINA DE LA ROSA Encounters Encounter Location Arrival/Admit Date Discharge/Depart Date Attending Provider Discharged [facility]patient [facility] 11/02/17 9:44pm 11/05/17 9:30am JESSI WESLEY MD Discharged Inpatient [facility] 09/20/17 4:00pm 09/21/17 10:49am JESSI WESLEY MD Departed Emergency Room [facility] 08/01/17 6:34am 11:30am FEI COLLINS MD Discharged Inpatient [facility] 07/15/17 7:04pm 07/17/17 12:00pm COOKIE GUTHRIE MD Discharged Inpatient [facility] 04/22/17 8:41pm 04/24/17 2:34pm COOKIE GUTHRIE MD
[2017-12-18] MEDS ORDERED: HYDROMORPHONE 1MG/1ML INJ IV STA (20:35)
[2017-12-18] MEDS ORDERED: PROMETHAZINE 25MG/ NS 50ML (IV) IV ONE (20:45)
[2017-12-18 20:56] LABS: BASOPHILS % 0.5 % (0.0-1.0); EOSINOPHILS % 0.6 % (0.0-6.0); HEMATOCRIT 34.1 % (34.2-44.1); HEMOGLOBIN 11.2 g/dL (12.0-16.0); LYMPHOCYTES # (AUTO) 0.6 (1.0-3.2); LYMPHOCYTES % 10.1 % (18.0-39.1); MEAN CORPUSCULAR HEMOGLOBIN 28.7 pg (28-32); MEAN CORPUSCULAR HGB CONC 32.8 g/dL (31-35); MEAN CORPUSCULAR VOLUME 87.4 fL (81-99); MONOCYTES # (AUTO) 0.2 (0.2-0.8); MONOCYTES % 3.7 % (4.4-11.3); NEUTROPHILS # (AUTO) 5.3 (2.1-6.9); NEUTROPHILS % 84.5 % (38.7-80.0); PLATELET COUNT 276 x10e3/uL (140-360); RED CELL DISTRIBUTION WIDTH 16.1 % (11.7-14.4)
[2017-12-18 21:04] LABS: INR 1.07; PROTHROMBIN TIME 13.1 seconds (11.9-14.5)
[2017-12-18 21:05] LABS: PARTIAL THROMBOPLASTIN TIME 55.3 seconds (23.8-35.5)
[2017-12-18 21:15] LABS: ALANINE AMINOTRANSFERASE 8 IU/L (0-55); ALBUMIN 3.9 g/dL (3.5-5.0); ALBUMIN/GLOBULIN RATIO 1.1 (0.8-2.0); ALKALINE PHOSPHATASE 115 IU/L (40-150); ANION GAP 25.2 mmol/L (8-16); BLOOD UREA NITROGEN 58 mg/dL (7-26); BUN/CREATININE RATIO 7 (6-25); CARBON DIOXIDE 19 mmol/L (22-29); CHLORIDE 90 mmol/L (98-107); CREATINE KINASE 55 IU/L (29-168); EST GLOMERULAR FILTRATION RATE 7 ML/MIN (60-); LIPASE 28 U/L (8-78); MAGNESIUM 1.8 MG/DL (1.3-2.1); POTASSIUM 5.2 mmol/L (3.5-5.1); SODIUM 129 mmol/L (136-145)
[2017-12-18] MEDS ORDERED: HYDRALAZINE HCL 20 MG/ML VIAL IV STA (21:16)
[2017-12-18 21:17] LABS: CALCIUM 9.7 mg/dL (8.4-10.2); GLUCOSE 474 mg/dL (74-118)
[2017-12-18] MEDS ORDERED: SODIUM CHLORIDE 0.9% 250ML 250 ML IV STA (22:01)
[2017-12-18] MEDS ORDERED: INSULIN REGULAR, HUMAN 100 UNIT/1 ML 3ML VIAL IV STA (22:01)
--- NOTE | 2017-12-18 22:08 | Diagnostic Imaging Report ---
ABDOMEN ACUTE SERIES W/PA CXR Clinical history: \S\ESRD ON HD N/V/HTN \[id number] \[id number] Technique: AP supine and upright views of the abdomen Comparison: 11/02/2017 Findings: Abdomen: No dilated loops of small or large bowel. Moderate stool burden is present. No free air. Cholecystectomy clips. Other: Right port tip over the distal SVC. Unremarkable cardiomediastinal silhouette, lungs, and pleural spaces for technique. Impression: 1. Nonobstructive bowel gas pattern with moderate stool burden. acute thoracic abnormality. Signed by: Dr Jackie Singh MD on 12/18/2017 10:04 PM
[2017-12-18] MEDS ORDERED: PROMETHAZINE 12.5MG/ NACL 0.9% 12.5 MG/50 ML BAG IV ONE (22:15)
[2017-12-18] MEDS ORDERED: CLONIDINE HCL 0.1 MG TAB PO ONE (22:15)
[2017-12-18] MEDS ORDERED: NIFEDIPINE 10 MG CAP ONE (22:42)
[2017-12-18] MEDS ORDERED: NIFEDIPINE 10 MG CAP PO ONE (22:45)
--- NOTE | 2017-12-18 23:54 | Diagnostic Imaging Report ---
EXAM: CT ABDOMEN/PELVIS WO DATE: 12/18/2017 10:01 PM INDICATION: \S\N/V/ABD PAIN, GASTROPARESIS \S\Y COMPARISON: 09/19/2017 TECHNIQUE: The abdomen and pelvis were scanned using a multidetector helical scanner. Coronal and sagittal reformations were obtained. Routine protocol performed. IV Contrast: None ml Isovue 300/370 FINDINGS: Lack of IV contrast decreases sensitivity in evaluating abdominal and pelvic organs. LOWER THORAX: No consolidations. Small hiatal hernia. LIVER/BILIARY: No masses. No ductal dilatation. GALLBLADDER: Surgically absent. SPLEEN: Unremarkable PANCREAS: Unremarkable ADRENALS: No nodules KIDNEYS/BLADDER: Fused pelvic kidney. High density in the region of the medullary pyramids/papilla was not seen on prior and may reflect dilute contrast given high density fluid/presumed contrast in the bladder. Unchanged mild diffuse bladder wall thickening. No hydronephrosis. GI TRACT: No wall thickening or evidence of obstruction. Normal appendix. VESSELS: Unremarkable PERITONEUM/RETROPERITONEUM: No free air or fluid LYMPH NODES: No lymphadenopathy REPRODUCTIVE ORGANS: There is a left adnexal 4.6 x 7 cm structure (attenuation more complex than simple fluid) or two adjacent cystic structures. SOFT TISSUES: Unremarkable BONES: No suspicious bone lesions. IMPRESSION: 1. No acute abnormality in noncontrast evaluation. 2. Fused pelvic kidney. 3. Left adnexal complex cystic lesion. Recommend follow up pelvic ultrasound. Signed by: Dr Jackie Singh MD on 12/18/2017 11:50 PM
[2017-12-19 00:11] LABS: ABG PCO2 35 mmHg (41-51); ABG PH 7.42 (7.31-7.41); ABG PO2 101 mmHg (80-105)
[2017-12-19 00:12] LABS: ABG HCO3 23 mmol/L (23-28)
--- NOTE | 2017-12-19 02:22 | Diagnostic Imaging Report ---
EXAM: US TRANSVAGINAL INDICATION: \S\LEFT CYSTIC LESION ON CT COMPARISON: None TECHNIQUE: Grayscale transverse and sagittal transabdominal and transvaginal images were obtained of the pelvis. Transvaginal images were necessary to better assess anatomic detail. The ovaries were examined with grayscale, color Doppler, and spectral waveform analysis. FINDINGS: Uterus Orientation: Normal Size: 7.3 x 3.4 x 4.8 cm, anteverted Mass: None Cervix: Normal Endometrium: Thickness: 0.17 cm, Normal. Appearance: Homogeneous echotexture without focal thickening. Right ovary: Size: 2.0 x 1.4 x 1.5 cm Mass/Cyst: None Left ovary: Size: 7.2 x 4.5 x 3.8 cm Mass/Cyst: Two left ovarian lesions. One is hypoechoic, avascular hypoechoic with increased through transmission measuring 4.5 x 3.0 x 3.3 cm, favor a hemorrhagic cyst. The other simple appearing, cystic measuring 3.1 x 3.2 x 3.6 cm. Cul-de-sac: No free fluid IMPRESSION: Two left ovarian lesions, one of which may reflect a hemorrhagic cyst (4.5 cm) and the other which is a simple cyst. Recommend 6-8 week follow up to document resolution. Signed by: Dr Jackie Singh MD on 12/19/2017 2:19 AM
[2017-12-19] MEDS ORDERED: SOD POLYSTYRENE SULFONATE SUSP 15 GM/60 ML BTL PO ONE (02:45)
[2017-12-19] MEDS ORDERED: PROMETHAZINE HC25 M1 PO (03:01)
[2017-12-19] MEDS ORDERED: PHENERGAN SUPP25 MG PR (03:01)
[2017-12-19 03:02] VITALS: BP 157/96
[2017-12-19] MEDS ORDERED: HEPARIN SOD (PORCINE) 1000 UNIT/ML SDV ONE (03:14)
[2017-12-19] MEDS ORDERED: HEPARIN SOD (PORCINE) 1000 UNIT/ML 10ML MDV IV ONE ×2 (03:15→03:30)
== END 2017-12-19 03:22 | disposition home or self-care (01) ==
LOC: ER 20:03
DX: R11.2 Nausea with vomiting, unspecified (principal); R10.84 Generalized abdominal pain; N83.202 Unspecified ovarian cyst, left side; E10.43 Type 1 diabetes mellitus with diabetic autonomic (poly)neuropathy; N18.6 End stage renal disease
CPT/HCPCS: 36415; 74022; 74176; 76830; 80053; 82550; 82553; 82805; 82948; 83690; 83735; 84484; 84702; 85025; 85610; 85730; 93005; 99284; J0360; J1644; J2550; J7050; 36600

== ENCOUNTER 2018-02-12 21:57 | Emergency (ER) | payer MEDICARE ==
[~2018-02-12] VITALS: Ht 157.5 cm; Wt 58.1 kg
[~2018-02-12 21:57] MED LIST changes: +PHENERGAN SUPP25 MG PR
[2018-02-12] MEDS ORDERED: PROMETHAZINE 12.5MG/ NACL 0.9% 12.5 MG/50 ML BAG IV ONE (22:45)
[2018-02-12] MEDS ORDERED: ACETAMINOPHEN 325 MG TAB PO ONE (22:45)
[2018-02-12] MEDS ORDERED: HYDROMORPHONE 1MG/1ML INJ IV STA (22:50)
[2018-02-12] MEDS ORDERED: DIATRIZOATE MEGL/DIATRIZOA SOD 30 ML BTL PO ONE (23:05)
[2018-02-12 23:23] LABS: BASOPHILS % 0.1 % (0.0-1.0); EOSINOPHILS % 0.1 % (0.0-6.0); HEMATOCRIT 32.7 % (34.2-44.1); HEMOGLOBIN 10.8 g/dL (12.0-16.0); LYMPHOCYTES # (AUTO) 0.7 (1.0-3.2); LYMPHOCYTES % 7.9 % (18.0-39.1); MEAN CORPUSCULAR HEMOGLOBIN 30.3 pg (28-32); MEAN CORPUSCULAR VOLUME 91.9 fL (81-99); MONOCYTES # (AUTO) 0.2 (0.2-0.8); MONOCYTES % 2.7 % (4.4-11.3); NEUTROPHILS # (AUTO) 7.9 (2.1-6.9); NEUTROPHILS % 88.6 % (38.7-80.0); PLATELET COUNT 351 x10e3/uL (140-360); RED BLOOD COUNT 3.56 x10e6/uL (3.6-5.1); RED CELL DISTRIBUTION WIDTH 15.5 % (11.7-14.4)
[2018-02-12 23:39] LABS: ALBUMIN 4.2 g/dL (3.5-5.0); ALBUMIN/GLOBULIN RATIO 1.1 (0.8-2.0); ANION GAP 21.6 mmol/L (8-16); CREATININE, SERUM 5.26 mg/dL (0.57-1.11); POTASSIUM 4.6 mmol/L (3.5-5.1)
--- NOTE | 2018-02-13 01:20 | Diagnostic Imaging Report ---
EXAM: CT ABDOMEN AND PELVIS without IV CONTRAST INDICATION: Nausea, vomiting, abdominal pain COMPARISON: CT of the abdomen and pelvis December 18, 2017 TECHNIQUE: The abdomen and pelvis were scanned using a multidetector helical scanner. Coronal and sagittal reformations were obtained. Routine protocol performed. IV Contrast: None Oral Contrast: Redicat CTDIvol has been reviewed. It is below the limits set by the Radiation Protocol Committee (RPC). FINDINGS: LOWER THORAX: No consolidations LIVER: No masses BILIARY: Cholecystectomy. No ductal dilation. SPLEEN: No masses PANCREAS: No masses ADRENALS: No nodules KIDNEYS: There is a fused pelvic kidney without nephroureterolithiasis or hydronephrosis. GI TRACT: No wall thickening or obstruction. Normal appendix. VESSELS: Unremarkable PERITONEUM/RETROPERITONEUM: Trace free pelvic fluid. LYMPH NODES: No lymphadenopathy REPRODUCTIVE ORGANS: Interval resolution of left adnexal cyst. BLADDER: Stable mild circumferential bladder wall thickening. SOFT TISSUES: Normal BONES: No suspicious bone lesions. IMPRESSION: No acute findings in the abdomen or pelvis. No bowel obstruction. Signed by: Dr. Aracely Rivas M.D. on 02/13/2018 1:17 AM
--- NOTE | 2018-02-13 01:22 | Diagnostic Imaging Report ---
EXAM: CHEST SINGLE (PORTABLE), AP 1 view INDICATION: Fever COMPARISON: AP view of the chest December 18, 2017 FINDINGS: LINES/TUBES: Stable position of right subclavian chest port LUNGS: No consolidations or edema. PLEURA: No effusions or pneumothorax. HEART AND MEDIASTINUM: Normal size and contour. BONES AND SOFT TISSUES: No acute findings. Right upper quadrant cholecystectomy clips. IMPRESSION: No evidence of pneumonia. Signed by: Dr. Aracely Rivas M.D. on 02/13/2018 1:18 AM
[2018-02-13] MEDS ORDERED: DILTIAZEM HCL 5 MG/ML 5 ML VIAL IV ONE (01:30)
[2018-02-13] MEDS ORDERED: PHENERGAN SUPP25 MG PR (01:42)
[2018-02-13] MEDS ORDERED: HEPARIN SOD (PORCINE) 1000 UNIT/ML SDV ONE (02:00)
== END 2018-02-13 02:10 | disposition home or self-care (01) ==
LOC: ER 21:57
DX: R10.10 Upper abdominal pain, unspecified (principal); R11.2 Nausea with vomiting, unspecified; R19.7 Diarrhea, unspecified; I12.0 Hypertensive chronic kidney disease with stage 5 chronic kidney disease or end stage renal disease; E11.22 Type 2 diabetes mellitus with diabetic chronic kidney disease; N18.6 End stage renal disease; Z99.2 Dependence on renal dialysis; K50.90 Crohn's disease, unspecified, without complications
CPT/HCPCS: 36415; 71045; 74176; 80053; 83605; 84702; 85025; 99284; J1170; J1642; J1644; J2550

== ENCOUNTER 2018-06-12 13:14 | Observation (INO) | payer MEDICARE ==
[~2018-06-12] VITALS: Ht 157.5 cm; Wt 49.2 kg
--- OUTSIDE RECORDS SUMMARY | 2018-06-12 13:20 | XMS REPORT ---
Author Author [facility] Address Unknown Phone Unavailable Care Team Providers Care Perioperative Assistant Name Role Phone JOSEKita, DR HOBBS Unavailable Unavailable CHAVO, DR JAIME Unavailable Unavailable PAPA, DR SCHAFFER Unavailable Unavailable ABHISHEK HAHN Unavailable Unavailable Katie SANTIZO Unavailable Unavailable Melissa GONCALVES Unavailable Unavailable TRELL, DR KENNEDY Unavailable Unavailable Edmund MENSAH Unavailable Unavailable BALDOMERO, DR CABALLERO Unavailable Unavailable SWEET, Wong LAIASIF Unavailable Unavailable WHITMAN, DR CALLES Unavailable Unavailable UMAH, DR SPRAGUE Unavailable Unavailable KANDY, Adam FELIPE Unavailable Unavailable JESSI WESLEY Unavailable Unavailable PAPITO, DR CLINE Unavailable Unavailable MAX, DR Sarabjit RASHID Unavailable Unavailable HUSBYJon Unavailable Unavailable BA, DR ESCOBEDO Unavailable Unavailable MAXBelinda JACOBO Unavailable Unavailable MAX, DR QUIÑONES Unavailable Unavailable GUTHRIE, SOUHEIL Unavailable Unavailable Jorge L Hutchinson Unavailable Unavailable Payers Payer Name Policy Type Policy Number Effective Date Expiration Date Problems This patient has no known problems. Allergies, Adverse Reactions, Alerts Allergy Name Allergy Type Status Severity Reaction(s) Onset Date Inactive Date Treating Clinician Comments metoclopramide HCl DA Active MO 2018-04-27 00:00:00 tramadol DA Active CA 2018-04-27 00:00:00 ondansetron DA Active MO 2018-04-27 00:00:00 ketorolac DA Active U 2018-04-27 00:00:00 shellfish derived DA Active SV 2018-04-27 00:00:00 metoclopramide HCl DA Active MO 2018-04-12 00:00:00 morphine DA Active U 2018-04-12 00:00:00 tramadol DA Active CA 2018-04-12 00:00:00 ondansetron DA Active MO 2018-04-12 00:00:00 ketorolac DA Active U 2018-04-12 00:00:00 shellfish derived DA Active SV 2018-04-12 00:00:00 metoclopramide HCl DA Active MO 2018-04-09 00:00:00 morphine DA Active U 2018-04-09 00:00:00 tramadol DA Active CA 2018-04-09 00:00:00 ondansetron DA Active MO 2018-04-09 00:00:00 ketorolac DA Active U 2018-04-09 00:00:00 shellfish derived DA Active SV 2018-04-09 00:00:00 metoclopramide HCl DA Active MO 2018-02-26 00:00:00 morphine DA Active U 2018-02-26 00:00:00 tramadol DA Active CA 2018-02-26 00:00:00 ondansetron DA Active MO 2018-02-26 00:00:00 ketorolac DA Active U 2018-02-26 00:00:00 shellfish derived DA Active SV 2018-02-26 00:00:00 Medications This patient has no known medications. Encounters Start Date/Time End Date/Time Encounter Type Admission Type Attending [facility] Care Facility Care Department Encounter ID 2018-06-07 20:15:00 2018-06-09 11:45:00 Outpatient Kita FABY JHA [facility] [id number] 2018-06-02 11:31:00 2018-06-02 17:10:00 Emergency E ADDISON TONY [facility] [id number] 2018-05-25 15:50:00 2018-05-27 16:27:00 Inpatient E SARBJIT ELAM [facility] [id number] 2018-04-24 21:07:00 2018-04-27 11:13:00 Outpatient FABY LOPEZ [facility] [id number] 2018-03-19 18:56:00 2018-03-19 22:25:00 Emergency E ABHISHEK HAHN [facility] [id number] 2018-02-25 09:48:00 2018-02-26 18:24:00 Outpatient [facility] [id number] 2018-02-12 16:46:00 2018-02-12 20:42:00 Emergency E ADRI GONCALVES [facility] [id number] 2018-01-17 15:32:00 2018-01-17 18:30:00 Emergency E LINDA MENSAH [facility] [id number] 2017-12-16 15:21:00 2017-12-16 21:08:00 Emergency E STEVAN WHITMAN [facility] [id number] 2017-11-16 21:41:00 2017-11-20 17:05:00 Inpatient E DARCIE SANCHEZ [facility] [id number] 2017-11-02 01:51:00 2017-11-02 14:19:00 Outpatient E FABY JHA [facility] [id number] 2017-10-21 21:27:00 2017-10-23 14:12:00 Inpatient E MARCIA CAI [facility] [id number] 2017-09-10 08:00:00 2017-09-13 11:02:00 Inpatient E FABY JHA [facility] [id number] 2017-08-06 18:55:00 2017-08-06 21:30:00 Emergency E MARLYN COBOS [facility] [id number] 2017-08-04 16:20:00 2017-08-04 18:33:00 Emergency E GAY MAX [facility] [id number] 2017-07-30 04:43:00 2017-07-30 06:23:00 Emergency E LINDA MENSAH [facility] [id number] 2017-07-28 18:51:00 2017-07-28 23:21:00 Emergency E GREGG KELLY [facility] [id number] 2017-07-12 10:01:00 2017-07-12 13:01:00 Emergency E BREE MAXAN [facility] [id number] 2017-07-08 19:18:00 2017-07-08 23:39:00 Emergency E ABHISHEK HAHN [facility] [id number] 2016-11-28 13:38:00 2016-11-28 13:38:00 Outpatient Carlos Hutchinson [id number] Results Test Description Test Time Test Comments Text Results Atomic Results Result Comments BASIC METABOLIC PANEL *WW* 2018-06-09 06:22:00 GLUCOSE (test code=06D) 291 mg/dL 75-100 SODIUM (test code=01A) 133 mmol/L 136-145 POTASSIUM (test code=01B) 4.3 mmol/L 3.6-5.1 CHLORIDE (test code=04A) 94 mmol/L 98-107 CO2 (test code=02A) 28 mmol/L 22-32 ANION GAP (test code=ANG) 15.5 mmol/L BUN (test code=05D) 42 mg/dL 7-18 CREATININE (test code=03E) 5.5 mg/dL 0.4-1.1 BUN/CREA (test code=BCR) 8 12-20 CALCIUM (test code=09D) 9.5 mg/dL 8.3-9.5 GLUCOMETER GLUCOSE- LAB USE [id number] 05:38:00* Test Item Value Reference Range Comments GLUCOMETER (test code=GMG) 277 mg/dL 70-100 Meter ID: [id number]: [id number]AR[address] SU GLUCOMETER GLUCOSE- LAB USE [id number] 20:15:00* Test Item Value Reference Range Comments GLUCOMETER (test code=GMG) 343 mg/dL 70-100 DAILY MAINTENANCEMeter ID: [id number]: [id number] CRISTINA EILEEN GLUCOMETER GLUCOSE- LAB USE [id number] 16:41:00* Test Item Value Reference Range Comments GLUCOMETER (test code=GMG) 204 mg/dL 70-100 Meter ID: [id number]: [id number] MELANSHA[address] MARIANO GLUCOMETER GLUCOSE- LAB USE [id number] 11:49:00* Test Item Value Reference Range Comments GLUCOMETER (test code=GMG) 115 mg/dL 70-100 Meter ID: [id number]: [id number] MELANIC MARIANO COMPREHENSIVE METABOLIC FULT[place] *WW*2018-06-08 05:59:00* Test Item Value Reference Range Comments GLUCOSE (test code=06D) 119 mg/dL 75-100 SODIUM (test code=01A) 136 mmol/L 136-145 POTASSIUM (test code=01B) 4.2 mmol/L 3.6-5.1 CHLORIDE (test code=04A) 95 mmol/L 98-107 CO2 (test code=02A) 30 mmol/L 22-32 ANION GAP (test code=ANG) 15.3 mmol/L BUN (test code=05D) 25 mg/dL 7-18 CREATININE (test code=03E) 3.6 mg/dL 0.4-1.1 BUN/CREA (test code=BCR) 7 12-20 CALCIUM (test code=09D) 9.2 mg/dL 8.3-9.5 BILI TOTAL (test code=11A) 0.4 mg/dL 0.2-1.0 PROTEIN (test code=07D) 8.5 g/dL 6.4-8.2 ALBUMIN (test code=08D) 3.5 g/dL 3.5-4.8 GLOBULIN (test code=GLB) 5.0 g/dL 1.5-3.8 ALB/GLOB (test code=AGRR) 0.7 1.0-2.6 ALK PHOS (test code=35A) 64 IU/L 42-121 AST (test code=30A) 18 IU/L <=42 ALT (test code=31A) 19 IU/L <=78 CARDIAC PROFILE 2018-06-08 05:57:00* Test Item Value Reference Range Comments TROPONIN I (test code=A84) 0.038 ng/mL 0.000-0.045 CBC (INCLUDES AUTOMATED DIFFERENTIAL)*[id number] 05:51:00* Test Item Value Reference Range Comments WBC (test code=WBC) 7.2 10\S\3/uL 4.5-11.0 RBC (test code=RBC) 3.81 10\S\6/uL 4.30-5.70 HGB (test code=HBG) 10.7 g/dL 12.0-15.5 HCT (test code=HCT) 34.0 % 35.0-44.0 MCV (test code=MCV) 89.2 fL 81.0-99.0 MCH (test code=MCH) 28.1 pg 27.0-31.0 MCHC (test code=MCHC) 31.5 g/dL 32.0-36.0 RDW (test code=RDW) 15.4 % 11.5-14.5 PLT (test code=PLT) 260 10\S\3/uL 130-400 MPV (test code=MPV) 10.1 fL 9.4-12.4 NEUTROP # (test code=NE#) 5.8 10\S\3/uL 1.6-8.0 LYMPH # (test code=LY#) 1.0 10\S\3/uL 1.1-3.5 MONOCYTE # (test code=MO#) 0.3 10\S\3/uL 0.0-1.1 EOSINOPH # (test code=EO#) 0.0 10\S\3/uL 0.0-0.7 BASOPHIL # (test code=BA#) 0.0 10\S\3/uL 0.0-0.3 IG # (test code=IG#) 0.05 10\S\3/uL 0.00-0.06 NRBC # (test code=NRBC#) 0.00 10\S\3/uL 0.00-0.01 NEUTROPH % (test code=NE%) 80.6 % 35.0-73.0 LYMPH % (test code=LY%) 13.6 % 20.0-55.0 MONO % (test code=MO%) 4.7 % 2.5-10.0 EOSINOPH % (test code=EO%) 0.1 % 0.0-5.0 BASOPHIL % (test code=BA%) 0.3 % 0.0-2.0 IG % (test code=IG%) 0.7 % 0.0-0.8 NRBC% (test code=NRBC%) 0.0 % 0.0-0.2 MANDIFF (test code=WMDIFF) NO NO RBC MORPH (test code=WRBCMOR) NORMAL GLUCOMETER GLUCOSE- LAB USE [id number] 05:04:00* Test Item Value Reference Range Comments GLUCOMETER (test code=GMG) 127 mg/dL 70-100 Meter ID: [id number]: [id number] JOHN MATTHEW GLUCOMETER GLUCOSE- LAB USE [id number] 22:17:00* Test Item Value Reference Range Comments GLUCOMETER (test code=GMG) 93 mg/dL 70-100 Meter ID: [id number]: [id number] JOHN MATTHEW GLUCOMETER GLUCOSE- LAB USE [id number] 21:03:00* Test Item Value Reference Range Comments GLUCOMETER (test code=GMG) 64 mg/dL 70-100 Meter ID: [id number]: 5304 JOHN MATTHEW LIVER PROFILE 2018-06-07 18:04:00* Test Item Value Reference Range Comments BILI TOTAL (test code=11A) 0.2 mg/dL 0.2-1.0 BILI DIRCT (test code=12A) 0.1 mg/dL 0.0-0.2 BILI INDIR (test code=BILII) 0.2 mg/dL <=0.8 PROTEIN (test code=07D) 9.0 g/dL 6.4-8.2 ALBUMIN (test code=08D) 3.6 g/dL 3.5-4.8 GLOBULIN (test code=GLB) 5.3 g/dL 1.5-3.8 ALB/GLOB (test code=AGRR) 0.7 1.0-2.6 ALK PHOS (test code=35A) 74 IU/L 42-121 AST (test code=30A) 23 IU/L <=42 ALT (test code=31A) 22 IU/L <=78 BASIC METABOLIC PANEL 2018-06-07 17:57:00* Test Item Value Reference Range Comments GLUCOSE (test code=06D) 87 mg/dL 75-100 SODIUM (test code=01A) 134 mmol/L 136-145 POTASSIUM (test code=01B) 3.4 mmol/L 3.6-5.1 CHLORIDE (test code=04A) 92 mmol/L 98-107 CO2 (test code=02A) 32 mmol/L 22-32 ANION GAP (test code=ANG) 13.6 mmol/L BUN (test code=05D) 17 mg/dL 7-18 CREATININE (test code=03E) 2.8 mg/dL 0.4-1.1 BUN/CREA (test code=BCR) 6 12-20 CALCIUM (test code=09D) 8.8 mg/dL 8.3-9.5 AMYLASE AND LIPASE 2018-06-07 17:53:00* Test Item Value Reference Range Comments AMYLASE (test code=10A) 173 U/L 28-100 LIPASE (test code=60A) 112 IU/L 73-393 CBC (INCLUDES AUTOMATED DIFFERENTIAL)*[id number] 17:46:00* Test Item Value Reference Range Comments WBC (test code=WBC) 7.9 10\S\3/uL 4.5-11.0 RBC (test code=RBC) 3.87 10\S\6/uL 4.30-5.70 HGB (test code=HBG) 11.1 g/dL 12.0-15.5 HCT (test code=HCT) 33.9 % 35.0-44.0 MCV (test code=MCV) 87.6 fL 81.0-99.0 MCH (test code=MCH) 28.7 pg 27.0-31.0 MCHC (test code=MCHC) 32.7 g/dL 32.0-36.0 RDW (test code=RDW) 15.3 % 11.5-14.5 PLT (test code=PLT) 247 10\S\3/uL 130-400 MPV (test code=MPV) 9.6 fL 9.4-12.4 NEUTROP # (test code=NE#) 6.3 10\S\3/uL 1.6-8.0 LYMPH # (test code=LY#) 0.7 10\S\3/uL 1.1-3.5 MONOCYTE # (test code=MO#) 0.5 10\S\3/uL 0.0-1.1 EOSINOPH # (test code=EO#) 0.1 10\S\3/uL 0.0-0.7 BASOPHIL # (test code=BA#) 0.0 10\S\3/uL 0.0-0.3 IG # (test code=IG#) 0.15 10\S\3/uL 0.00-0.06 NRBC # (test code=NRBC#) 0.00 10\S\3/uL 0.00-0.01 NEUTROPH % (test code=NE%) 80.6 % 35.0-73.0 LYMPH % (test code=LY%) 9.3 % 20.0-55.0 MONO % (test code=MO%) 6.8 % 2.5-10.0 EOSINOPH % (test code=EO%) 1.0 % 0.0-5.0 BASOPHIL % (test code=BA%) 0.4 % 0.0-2.0 IG % (test code=IG%) 1.9 % 0.0-0.8 NRBC% (test code=NRBC%) 0.0 % 0.0-0.2 MANDIFF (test code=WMDIFF) NO NO RBC MORPH (test code=WRBCMOR) NORMAL SERUM [id number] 15:25:00* Test Item Value Reference Range Comments PREG SRM (test code=PGS) NEGATIVE NEGATIVE OCCULT [id number] 13:31:00* Test Item Value Reference Range Comments Direct Exam (test code=DE1) POSITIVE FOR OCCULT BLOOD COMPREHENSIVE METABOLIC [id number] 12:36:00* Test Item Value Reference Range Comments GLUCOSE (test code=06D) 152 mg/dL 75-100 SODIUM (test code=01A) 133 mmol/L 136-145 POTASSIUM (test code=01B) 3.7 mmol/L 3.6-5.1 CHLORIDE (test code=04A) 97 mmol/L 98-107 CO2 (test code=02A) 27 mmol/L 22-32 ANION GAP (test code=ANG) 12.7 mmol/L BUN (test code=05D) 18 mg/dL 7-18 CREATININE (test code=03E) 2.6 mg/dL 0.4-1.1 BUN/CREA (test code=BCR) 7 12-20 CALCIUM (test code=09D) 9.9 mg/dL 8.3-9.5 BILI TOTAL (test code=11A) 0.3 mg/dL 0.2-1.0 PROTEIN (test code=07D) 9.7 g/dL 6.4-8.2 ALBUMIN (test code=08D) 3.8 g/dL 3.5-4.8 GLOBULIN (test code=GLB) 5.9 g/dL 1.5-3.8 ALB/GLOB (test code=AGRR) 0.6 1.0-2.6 ALK PHOS (test code=35A) 79 IU/L 42-121 AST (test code=30A) 20 IU/L <=42 ALT (test code=31A) 24 IU/L <=78 [id number] 12:36:00* Test Item Value Reference Range Comments AMYLASE (test code=10A) 92 U/L 28-100 LIPASE [id number] 12:30:00* Test Item Value Reference Range Comments LIPASE (test code=60A) 115 IU/L 73-393 CBC (INCLUDES AUTOMATED DIFFERENTIAL)2018-06-02 12:23:00* Test Item Value Reference Range Comments WBC (test code=WBC) 3.3 10\S\3/uL 4.5-11.0 RBC (test code=RBC) 4.08 10\S\6/uL 4.30-5.70 HGB (test code=HBG) 11.5 g/dL 12.0-15.5 HCT (test code=HCT) 36.0 % 35.0-44.0 MCV (test code=MCV) 88.2 fL 81.0-99.0 MCH (test code=MCH) 28.2 pg 27.0-31.0 MCHC (test code=MCHC) 31.9 g/dL 32.0-36.0 RDW (test code=RDW) 16.0 % 11.5-14.5 PLT (test code=PLT) 219 10\S\3/uL 130-400 MPV (test code=MPV) 9.0 fL 9.4-12.4 NEUTROP # (test code=NE#) 1.8 10\S\3/uL 1.6-8.0 LYMPH # (test code=LY#) 0.8 10\S\3/uL 1.1-3.5 MONOCYTE # (test code=MO#) 0.4 10\S\3/uL 0.0-1.1 EOSINOPH # (test code=EO#) 0.2 10\S\3/uL 0.0-0.7 BASOPHIL # (test code=BA#) 0.0 10\S\3/uL 0.0-0.3 IG # (test code=IG#) 0.05 10\S\3/uL 0.00-0.06 NRBC # (test code=NRBC#) 0.00 10\S\3/uL 0.00-0.01 NEUTROPH % (test code=NE%) 55.6 % 35.0-73.0 LYMPH % (test code=LY%) 24.2 % 20.0-55.0 MONO % (test code=MO%) 11.2 % 2.5-10.0 EOSINOPH % (test code=EO%) 6.6 % 0.0-5.0 BASOPHIL % (test code=BA%) 0.9 % 0.0-2.0 IG % (test code=IG%) 1.5 % 0.0-0.8 NRBC% (test code=NRBC%) 0.0 % 0.0-0.2 MANDIFF (test code=MDIFF) NO NO RBC MORPH (test code=RBCMOR) NORMAL GLUCOMETER GLUCOSE- LAB USE [id number] 12:22:00* Test Item Value Reference Range Comments GLUCOMETER (test code=GMG) 53 mg/dL 70-100 Meter ID: [id number]: [id number] [facility]- LAB USE [id number] 18:48:00* Test Item Value Reference Range Comments GLUCOMETER (test code=GMG) 80 mg/dL 70-100 Meter ID: [id number]: [id number] CHECO LUIS HEPATITIS B SURFACE [id number] 16:45:00* Test Item Value Reference Range Comments HBSAG (test code=HBSAG) NON-REACTIVE NON-REACTIVE HEPATITIS B SURFACE [id number] 16:35:00* Test Item Value Reference Range Comments HBSAB (test code=HBSAB) REACTIVE REACTIVE GLUCOMETER GLUCOSE- LAB USE [id number] 11:01:00* Test Item Value Reference Range Comments GLUCOMETER (test code=GMG) 91 mg/dL 70-100 CLEANED METERMeter ID: [id number]: [id number] RUTH AMEZCUA CARDIAC [id number] 05:14:00* Test Item Value Reference Range Comments TROPONIN I (test code=A84) 0.156 ng/mL 0.000-0.045 BASIC METABOLIC [id number] 05:04:00* Test Item Value Reference Range Comments GLUCOSE (test code=06D) 106 mg/dL 75-100 SODIUM (test code=01A) 140 mmol/L 136-145 POTASSIUM (test code=01B) 4.4 mmol/L 3.6-5.1 CHLORIDE (test code=04A) 99 mmol/L 98-107 CO2 (test code=02A) 31 mmol/L 22-32 ANION GAP (test code=ANG) 14.4 mmol/L BUN (test code=05D) 45 mg/dL 7-18 CREATININE (test code=03E) 6.6 mg/dL 0.4-1.1 BUN/CREA (test code=BCR) 7 12-20 CALCIUM (test code=09D) 9.7 mg/dL 8.3-9.5 CBC (INCLUDES AUTOMATED DIFFERENTIAL)2018-05-26 04:49:00* Test Item Value Reference Range Comments WBC (test code=WBC) 5.6 10\S\3/uL 4.5-11.0 RBC (test code=RBC) 3.13 10\S\6/uL 4.30-5.70 HGB (test code=HBG) 8.9 g/dL 12.0-15.5 HCT (test code=HCT) 29.3 % 35.0-44.0 MCV (test code=MCV) 93.6 fL 81.0-99.0 MCH (test code=MCH) 28.4 pg 27.0-31.0 MCHC (test code=MCHC) 30.4 g/dL 32.0-36.0 RDW (test code=RDW) 17.2 % 11.5-14.5 PLT (test code=PLT) 269 10\S\3/uL 130-400 MPV (test code=MPV) 9.4 fL 9.4-12.4 NEUTROP # (test code=NE#) 3.4 10\S\3/uL 1.6-8.0 LYMPH # (test code=LY#) 1.5 10\S\3/uL 1.1-3.5 MONOCYTE # (test code=MO#) 0.5 10\S\3/uL 0.0-1.1 EOSINOPH # (test code=EO#) 0.1 10\S\3/uL 0.0-0.7 BASOPHIL # (test code=BA#) 0.0 10\S\3/uL 0.0-0.3 IG # (test code=IG#) 0.03 10\S\3/uL 0.00-0.06 NRBC # (test code=NRBC#) 0.00 10\S\3/uL 0.00-0.01 NEUTROPH % (test code=NE%) 60.0 % 35.0-73.0 LYMPH % (test code=LY%) 27.1 % 20.0-55.0 MONO % (test code=MO%) 9.7 % 2.5-10.0 EOSINOPH % (test code=EO%) 2.0 % 0.0-5.0 BASOPHIL % (test code=BA%) 0.7 % 0.0-2.0 IG % (test code=IG%) 0.5 % 0.0-0.8 NRBC% (test code=NRBC%) 0.0 % 0.0-0.2 MANDIFF (test code=MDIFF) NO NO RBC MORPH (test code=RBCMOR) NORMAL [id number] 23:47:00* Test Item Value Reference Range Comments GLUCOSE (test code=06D) 131 mg/dL 75-100 CARDIAC [id number] 22:47:00* Test Item Value Reference Range Comments TROPONIN I (test code=A84) 0.180 ng/mL 0.000-0.045 XR ABDOMEN AP 1 VIEW [id number] 15:48:47Exam: KUBHISTORY: PainLocation: [id number]:Bowel gas pattern is nonspecific without mechanical obstruction. No radiopaquestones are identified. No evidence of visceromegaly. Surgical clips in thegallbladder fossa. Mild dextroscoliosis.IMPRESSION:1. Unremarkable exam. No change since 11/01/17. SERUM [id number] 15:00:00* Test Item Value Reference Range Comments PREG SRM (test code=PGS) NEGATIVE NEGATIVE COMPREHENSIVE METABOLIC [id number] 14:46:00* Test Item Value Reference Range Comments GLUCOSE (test code=06D) 136 mg/dL 75-100 SODIUM (test code=01A) 138 mmol/L 136-145 POTASSIUM (test code=01B) 4.6 mmol/L 3.6-5.1 CHLORIDE (test code=04A) 97 mmol/L 98-107 CO2 (test code=02A) 30 mmol/L 22-32 ANION GAP (test code=ANG) 15.6 mmol/L BUN (test code=05D) 39 mg/dL 7-18 CREATININE (test code=03E) 5.7 mg/dL 0.4-1.1 BUN/CREA (test code=BCR) 7 12-20 CALCIUM (test code=09D) 10.7 mg/dL 8.3-9.5 BILI TOTAL (test code=11A) 0.5 mg/dL 0.2-1.0 PROTEIN (test code=07D) 10.0 g/dL 6.4-8.2 ALBUMIN (test code=08D) 3.8 g/dL 3.5-4.8 GLOBULIN (test code=GLB) 6.2 g/dL 1.5-3.8 ALB/GLOB (test code=AGRR) 0.6 1.0-2.6 ALK PHOS (test code=35A) 79 IU/L 42-121 AST (test code=30A) 31 IU/L <=42 ALT (test code=31A) 27 IU/L <=78 AMYLASE AND [id number] 14:46:00* Test Item Value Reference Range Comments AMYLASE (test code=10A) 145 U/L 28-100 LIPASE (test code=60A) 75 IU/L 73-393 TROPONIN [id number] 14:46:00* Test Item Value Reference Range Comments TROPONIN I (test code=A84) 0.119 ng/mL 0.000-0.045 CBC (INCLUDES AUTOMATED DIFFERENTIAL)2018-05-25 14:31:00* Test Item Value Reference Range Comments WBC (test code=WBC) 7.3 10\S\3/uL 4.5-11.0 RBC (test code=RBC) 3.71 10\S\6/uL 4.30-5.70 HGB (test code=HBG) 10.3 g/dL 12.0-15.5 HCT (test code=HCT) 33.9 % 35.0-44.0 MCV (test code=MCV) 91.4 fL 81.0-99.0 MCH (test code=MCH) 27.8 pg 27.0-31.0 MCHC (test code=MCHC) 30.4 g/dL 32.0-36.0 RDW (test code=RDW) 17.2 % 11.5-14.5 PLT (test code=PLT) 299 10\S\3/uL 130-400 MPV (test code=MPV) 9.5 fL 9.4-12.4 NEUTROP # (test code=NE#) 6.2 10\S\3/uL 1.6-8.0 LYMPH # (test code=LY#) 0.8 10\S\3/uL 1.1-3.5 MONOCYTE # (test code=MO#) 0.3 10\S\3/uL 0.0-1.1 EOSINOPH # (test code=EO#) 0.0 10\S\3/uL 0.0-0.7 BASOPHIL # (test code=BA#) 0.0 10\S\3/uL 0.0-0.3 IG # (test code=IG#) 0.05 10\S\3/uL 0.00-0.06 NRBC # (test code=NRBC#) 0.00 10\S\3/uL 0.00-0.01 NEUTROPH % (test code=NE%) 85.0 % 35.0-73.0 LYMPH % (test code=LY%) 10.3 % 20.0-55.0 MONO % (test code=MO%) 3.4 % 2.5-10.0 EOSINOPH % (test code=EO%) 0.1 % 0.0-5.0 BASOPHIL % (test code=BA%) 0.5 % 0.0-2.0 IG % (test code=IG%) 0.7 % 0.0-0.8 NRBC% (test code=NRBC%) 0.0 % 0.0-0.2 MANDIFF (test code=MDIFF) NO NO RBC MORPH (test code=RBCMOR) NORMAL XR CHEST 1 VIEW *WW*2018-04-27 08:15:17CLINICAL HISTORY: Pneumonia. LOCATION: D4.FINDINGS: Comparison is made with a previous study dated 04/26/18. A portableAP view of the chest is dated 04/27/18 at 0615 hours. There is stable mildcardiomegaly. No change in tubes or lines. No infiltrates or pleural effusionsare identified. Previously seen left upper lobe nodule is not well-seen on thecurrent exam. No acute skeletal or soft tissue abnormalities. IMPRESSION:1. No acute disease.BASIC METABOLIC PANEL 2018-04-27 06:11:00* Test Item Value Reference Range Comments GLUCOSE (test code=06D) 221 mg/dL 75-100 SODIUM (test code=01A) 138 mmol/L 136-145 POTASSIUM (test code=01B) 3.6 mmol/L 3.6-5.1 CHLORIDE (test code=04A) 98 mmol/L 98-107 CO2 (test code=02A) 30 mmol/L 22-32 ANION GAP (test code=ANG) 14.1 mmol/L BUN (test code=05D) 20 mg/dL 7-18 CREATININE (test code=03E) 4.0 mg/dL 0.4-1.1 BUN/CREA (test code=BCR) 5 12-20 CALCIUM (test code=09D) 8.3 mg/dL 8.3-9.5 GLUCOMETER GLUCOSE- LAB USE [id number] 06:01:00* Test Item Value Reference Range Comments GLUCOMETER (test code=GMG) 214 mg/dL 70-100 Meter ID: [id number]: [id number] BEBO GUERRAJOCELIN CBC (INCLUDES AUTOMATED DIFFERENTIAL)*[id number] 05:54:00* Test Item Value Reference Range Comments WBC (test code=WBC) 5.8 10\S\3/uL 4.5-11.0 RBC (test code=RBC) 2.86 10\S\6/uL 4.30-5.70 HGB (test code=HBG) 8.2 g/dL 12.0-15.5 HCT (test code=HCT) 26.0 % 35.0-44.0 MCV (test code=MCV) 90.9 fL 81.0-99.0 MCH (test code=MCH) 28.7 pg 27.0-31.0 MCHC (test code=MCHC) 31.5 g/dL 32.0-36.0 RDW (test code=RDW) 17.0 % 11.5-14.5 PLT (test code=PLT) 214 10\S\3/uL 130-400 MPV (test code=MPV) 9.8 fL 9.4-12.4 NEUTROP # (test code=NE#) 3.4 10\S\3/uL 1.6-8.0 LYMPH # (test code=LY#) 1.3 10\S\3/uL 1.1-3.5 MONOCYTE # (test code=MO#) 0.5 10\S\3/uL 0.0-1.1 EOSINOPH # (test code=EO#) 0.5 10\S\3/uL 0.0-0.7 BASOPHIL # (test code=BA#) 0.0 10\S\3/uL 0.0-0.3 IG # (test code=IG#) 0.06 10\S\3/uL 0.00-0.06 NRBC # (test code=NRBC#) 0.00 10\S\3/uL 0.00-0.01 NEUTROPH % (test code=NE%) 59.0 % 35.0-73.0 LYMPH % (test code=LY%) 22.1 % 20.0-55.0 MONO % (test code=MO%) 8.7 % 2.5-10.0 EOSINOPH % (test code=EO%) 8.5 % 0.0-5.0 BASOPHIL % (test code=BA%) 0.7 % 0.0-2.0 IG % (test code=IG%) 1.0 % 0.0-0.8 NRBC% (test code=NRBC%) 0.0 % 0.0-0.2 MANDIFF (test code=WMDIFF) NO NO RBC MORPH (test code=WRBCMOR) NORMAL GLUCOMETER GLUCOSE- LAB USE [id number] 23:04:00* Test Item Value Reference Range Comments GLUCOMETER (test code=GMG) 229 mg/dL 70-100 Meter ID: [id number]: [id number] BE[address] DUARTE GLUCOMETER GLUCOSE- LAB USE [id number] 15:40:00* Test Item Value Reference Range Comments GLUCOMETER (test code=GMG) 146 mg/dL 70-100 DAILY MAINTENANCEMeter ID: [id number]: [id number] EMMA PEREZ HEPATITIS B SURFACE ANTIGEN *WW*2018-04-26 12:41:00* Test Item Value Reference Range Comments HBSAG (test code=HBSAG) NON-REACTIVE NON-REACTIVE GLUCOMETER GLUCOSE- LAB USE [id number] 10:43:00* Test Item Value Reference Range Comments GLUCOMETER (test code=GMG) 218 mg/dL 70-100 DAILY MAINTENANCEMeter ID: [id number]: 9397 EMMA PEREZ XR CHEST 1 VIEW *WW*2018-04-26 08:25:42EXAMINATION: XR CHEST 1 VIEW *WW*.LOCATION: S17.HISTORY: J18.9, hyperglycemia, pneumonia.COMPARISON: Chest x- ray 09/23/17. CT abdomen/pelvis 03/25/18.FINDINGS:Examination is limited due to portable technique and low lung volumes.Cardiac silhouette/Mediastinal contour: Within normal limits. Lungs: No focal consolidation. Small right pleural effusion. 9 mm left upperlobe nodule. Bibasilar groundglass opacities seen on recent CT is notappreciated radiographically.Osseous Structures: No acute osseous abnormalities.Additional Findings: Right subclavian Port-A-Cath tip projects over mid SVC.Postoperative clips in right upper quadrant abdomen.IMPRESSION: Small right pleural effusion.9 mm left upper lobe nodule.B ibasilar groundglass opacities on recent CT is not appreciatedradiographically. GLUCOMETER GLUCOSE- LAB USE [id number] 07:42:00* Test Item Value Reference Range Comments GLUCOMETER (test code=GMG) 308 mg/dL 70-100 CLEANED METERMeter ID: [id number]: [id number] RAMÍREZ FENG BASIC METABOLIC PANEL *WW*2018-04-26 06:06:00* Test Item Value Reference Range Comments GLUCOSE (test code=06D) 309 mg/dL 75-100 SODIUM (test code=01A) 136 mmol/L 136-145 POTASSIUM (test code=01B) 4.5 mmol/L 3.6-5.1 CHLORIDE (test code=04A) 94 mmol/L 98-107 CO2 (test code=02A) 28 mmol/L 22-32 ANION GAP (test code=ANG) 18.4 mmol/L BUN (test code=05D) 57 mg/dL 7-18 CREATININE (test code=03E) 6.7 mg/dL 0.4-1.1 BUN/CREA (test code=BCR) 9 12-20 CALCIUM (test code=09D) 8.6 mg/dL 8.3-9.5 CBC (INCLUDES AUTOMATED DIFFERENTIAL)*[id number] 05:54:00* Test Item Value Reference Range Comments WBC (test code=WBC) 6.0 10\S\3/uL 4.5-11.0 RBC (test code=RBC) 2.80 10\S\6/uL 4.30-5.70 HGB (test code=HBG) 7.9 g/dL 12.0-15.5 HCT (test code=HCT) 24.5 % 35.0-44.0 MCV (test code=MCV) 87.5 fL 81.0-99.0 MCH (test code=MCH) 28.2 pg 27.0-31.0 MCHC (test code=MCHC) 32.2 g/dL 32.0-36.0 RDW (test code=RDW) 17.2 % 11.5-14.5 PLT (test code=PLT) 190 10\S\3/uL 130-400 MPV (test code=MPV) 9.6 fL 9.4-12.4 NEUTROP # (test code=NE#) 3.4 10\S\3/uL 1.6-8.0 LYMPH # (test code=LY#) 1.4 10\S\3/uL 1.1-3.5 MONOCYTE # (test code=MO#) 0.4 10\S\3/uL 0.0-1.1 EOSINOPH # (test code=EO#) 0.8 10\S\3/uL 0.0-0.7 BASOPHIL # (test code=BA#) 0.0 10\S\3/uL 0.0-0.3 IG # (test code=IG#) 0.04 10\S\3/uL 0.00-0.06 NRBC # (test code=NRBC#) 0.00 10\S\3/uL 0.00-0.01 NEUTROPH % (test code=NE%) 56.9 % 35.0-73.0 LYMPH % (test code=LY%) 22.6 % 20.0-55.0 MONO % (test code=MO%) 6.5 % 2.5-10.0 EOSINOPH % (test code=EO%) 12.6 % 0.0-5.0 BASOPHIL % (test code=BA%) 0.7 % 0.0-2.0 IG % (test code=IG%) 0.7 % 0.0-0.8 NRBC% (test code=NRBC%) 0.0 % 0.0-0.2 MANDIFF (test code=WMDIFF) NO NO RBC MORPH (test code=WRBCMOR) NORMAL GLUCOMETER GLUCOSE- LAB USE [id number] 21:16:00* Test Item Value Reference Range Comments GLUCOMETER (test code=GMG) 141 mg/dL 70-100 Meter ID: [id number]: 4723 BEBO HERNANDEZVYANJOCELIN GLUCOMETER GLUCOSE- LAB USE [id number] 18:18:00* Test Item Value Reference Range Comments GLUCOMETER (test code=GMG) 68 mg/dL 70-100 CLEANED METERMeter ID: [id number]: 1429 SALINA PING XR CHEST 1 VIEW 2018-04-25 17:15:55Portable AP chest, 1 viewLocation Code: [id number] HISTORY: J18.9: PNEUMONIA, UNSPECIFIED ORGANISMCOMPARISON: 02/12/2018COMMENT: The lungs are clear and well inflated. The costophrenic angles are sharp. Thecardiomediastinal silhouette is stable. Right chest port remains. The bones areintact.IMPRESSION: Stable chest with no acute abnormalityGLUCOMETER GLUCOSE- LAB USE [id number] 17:14:00* Test Item Value Reference Range Comments GLUCOMETER (test code=GMG) 53 mg/dL 70-100 CLEANED METERMeter ID: [id number]: 1429 SALINA PING GLUCOMETER GLUCOSE- LAB USE [id number] 16:13:00* Test Item Value Reference Range Comments GLUCOMETER (test code=GMG) 51 mg/dL 70-100 DAILY MAINTENANCEMeter ID: [id number]: 9397 EMMA PEREZ GLYCOHEMOGLOBIN *WW*2018-04-25 12:41:00* Test Item Value Reference Range Comments Hb A1C % (test code=HBA) 7.2 % 4.2-6.3 GLUCOMETER GLUCOSE- LAB USE [id number] 11:17:00* Test Item Value Reference Range Comments GLUCOMETER (test code=GMG) 212 mg/dL 70-100 CLEANED METERMeter ID: [id number]: 1429 SALINA PING BASIC METABOLIC PANEL 2018-04-25 07:46:00* Test Item Value Reference Range Comments GLUCOSE (test code=06D) 472 mg/dL 75-100 SODIUM (test code=01A) 133 mmol/L 136-145 POTASSIUM (test code=01B) 4.0 mmol/L 3.6-5.1 CHLORIDE (test code=04A) 91 mmol/L 98-107 CO2 (test code=02A) 26 mmol/L 22-32 ANION GAP (test code=ANG) 20.5 mmol/L BUN (test code=05D) 50 mg/dL 7-18 CREATININE (test code=03E) 5.5 mg/dL 0.4-1.1 BUN/CREA (test code=BCR) 9 12-20 CALCIUM (test code=09D) 9.4 mg/dL 8.3-9.5 GLUCOMETER GLUCOSE- LAB USE [id number] 07:45:00* Test Item Value Reference Range Comments GLUCOMETER (test code=GMG) 421 mg/dL 70-100 CLEANED METERMeter ID: [id number]: 1429 SALINWong PING CBC (INCLUDES AUTOMATED DIFFERENTIAL)*[id number] 07:02:00* Test Item Value Reference Range Comments WBC (test code=WBC) 7.3 10\S\3/uL 4.5-11.0 RBC (test code=RBC) 3.22 10\S\6/uL 4.30-5.70 HGB (test code=HBG) 9.2 g/dL 12.0-15.5 HCT (test code=HCT) 28.2 % 35.0-44.0 MCV (test code=MCV) 87.6 fL 81.0-99.0 MCH (test code=MCH) 28.6 pg 27.0-31.0 MCHC (test code=MCHC) 32.6 g/dL 32.0-36.0 RDW (test code=RDW) 16.9 % 11.5-14.5 PLT (test code=PLT) 255 10\S\3/uL 130-400 MPV (test code=MPV) 9.5 fL 9.4-12.4 NEUTROP # (test code=NE#) 5.8 10\S\3/uL 1.6-8.0 LYMPH # (test code=LY#) 0.9 10\S\3/uL 1.1-3.5 MONOCYTE # (test code=MO#) 0.4 10\S\3/uL 0.0-1.1 EOSINOPH # (test code=EO#) 0.0 10\S\3/uL 0.0-0.7 BASOPHIL # (test code=BA#) 0.0 10\S\3/uL 0.0-0.3 IG # (test code=IG#) 0.07 10\S\3/uL 0.00-0.06 NRBC # (test code=NRBC#) 0.00 10\S\3/uL 0.00-0.01 NEUTROPH % (test code=NE%) 79.8 % 35.0-73.0 LYMPH % (test code=LY%) 12.4 % 20.0-55.0 MONO % (test code=MO%) 6.0 % 2.5-10.0 EOSINOPH % (test code=EO%) 0.3 % 0.0-5.0 BASOPHIL % (test code=BA%) 0.5 % 0.0-2.0 IG % (test code=IG%) 1.0 % 0.0-0.8 NRBC% (test code=NRBC%) 0.0 % 0.0-0.2 MANDIFF (test code=WMDIFF) NO NO RBC MORPH (test code=WRBCMOR) NORMAL CARDIAC PROFILE *WW*2018-04-25 04:23:00* Test Item Value Reference Range Comments TROPONIN I (test code=A84) 0.281 ng/mL 0.000-0.045 CKMB (test code=A49) 2.1 ng/mL <=3.6 CPK (test code=32A) 75 IU/L 26-192 GLUCOMETER GLUCOSE- LAB USE [id number] 01:44:00* Test Item Value Reference Range Comments GLUCOMETER (test code=GMG) 470 mg/dL 70-100 Meter ID: [id number]: 9516 VIRGIE SANTAMARIA GLUCOMETER GLUCOSE- LAB USE [id number] 23:18:00* Test Item Value Reference Range Comments GLUCOMETER (test code=GMG) 444 mg/dL 70-100 Meter ID: [id number]: [address] ABDOMEN AND PELVIS WITHOUT CONTRAST *WW*2018-04-24 21:01:35CT ABDOMEN AND PELVIS WITHOUT CONTRAST *WW*Location:[address] hours services are provided 04/24/2018 8:46 PMIndication:R10.33: PERIUMBILICAL PAINComparison: 8Technique: Axial CT of the abdomen and pelvis without contrast. Sagittal andcor onal reformatted images are provided for interpretation. All CT scans atthis fac ility use dose modulation, iterative reconstruction, and orweight-based dosing w hen appropriate to reduce radiation dose to as low asreasonably achievable.Findi ngs: Small right-sided pleural effusion. The heart appears mildly enlargedwith b ilateral perihilar regions of groundglass attenuation.. No vinicius lobarconsolidat ion is seen at the bases.The liver is normal in size and density. 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 No evidence of hydronephrosis. Urinarybladder and uterus ap pear normal.The bowel is normal in course and caliber. No free air or free fluid isidentified. The appendix is normal.No acute bony or soft tissue abnormality.I mpression:1. Bilateral regions of groundglass attenuation within the lungs with aright-sided pleural fluid collection. The heart appears enlarged. Findings mayb e compatible with cardiogenic interstitial pulmonary edema.2. No acute intra-abd ominal or pelvic abnormal.3. Crossed fused renal ectopia.COMPREHENSIVE METABOLIC FULTON *WW*2018-04-24 20:19:00* Test Item Value Reference Range Comments GLUCOSE (test code=06D) 622 mg/dL 75-100 SODIUM (test code=01A) 131 mmol/L 136-145 POTASSIUM (test code=01B) 3.8 mmol/L 3.6-5.1 CHLORIDE (test code=04A) 90 mmol/L 98-107 CO2 (test code=02A) 28 mmol/L 22-32 ANION GAP (test code=ANG) 17.1 mmol/L BUN (test code=05D) 42 mg/dL 7-18 CREATININE (test code=03E) 4.6 mg/dL 0.4-1.1 BUN/CREA (test code=BCR) 9 12-20 CALCIUM (test code=09D) 9.3 mg/dL 8.3-9.5 BILI TOTAL (test code=11A) 0.3 mg/dL 0.2-1.0 PROTEIN (test code=07D) 7.9 g/dL 6.4-8.2 ALBUMIN (test code=08D) 3.2 g/dL 3.5-4.8 GLOBULIN (test code=GLB) 4.7 g/dL 1.5-3.8 ALB/GLOB (test code=AGRR) 0.7 1.0-2.6 ALK PHOS (test code=35A) 149 IU/L 42-121 AST (test code=30A) 10 IU/L <=42 ALT (test code=31A) 19 IU/L <=78 SERUM MONOCLONAL 2018-04-24 20:16:00* Test Item Value Reference Range Comments PREG SRM (test code=PGS) NEGATIVE NEGATIVE AMYLASE AND LIPASE 2018-04-24 20:15:00* Test Item Value Reference Range Comments AMYLASE (test code=10A) 77 U/L 28-100 LIPASE (test code=60A) 307 IU/L 73-393 CARDIAC PROFILE 2018-04-24 20:05:00* Test Item Value Reference Range Comments TROPONIN I (test code=A84) 0.184 ng/mL 0.000-0.045 CKMB (test code=A49) 2.8 ng/mL <=3.6 CPK (test code=32A) 75 IU/L 26-192 CBC (INCLUDES AUTOMATED DIFFERENTIAL)*[id number] 19:50:00* Test Item Value Reference Range Comments WBC (test code=WBC) 7.0 10\S\3/uL 4.5-11.0 RBC (test code=RBC) 3.31 10\S\6/uL 4.30-5.70 HGB (test code=HBG) 9.3 g/dL 12.0-15.5 HCT (test code=HCT) 29.2 % 35.0-44.0 MCV (test code=MCV) 88.2 fL 81.0-99.0 MCH (test code=MCH) 28.1 pg 27.0-31.0 MCHC (test code=MCHC) 31.8 g/dL 32.0-36.0 RDW (test code=RDW) 16.7 % 11.5-14.5 PLT (test code=PLT) 263 10\S\3/uL 130-400 MPV (test code=MPV) 9.7 fL 9.4-12.4 NEUTROP # (test code=NE#) 5.3 10\S\3/uL 1.6-8.0 LYMPH # (test code=LY#) 0.9 10\S\3/uL 1.1-3.5 MONOCYTE # (test code=MO#) 0.4 10\S\3/uL 0.0-1.1 EOSINOPH # (test code=EO#) 0.2 10\S\3/uL 0.0-0.7 BASOPHIL # (test code=BA#) 0.1 10\S\3/uL 0.0-0.3 IG # (test code=IG#) 0.09 10\S\3/uL 0.00-0.06 NRBC # (test code=NRBC#) 0.00 10\S\3/uL 0.00-0.01 NEUTROPH % (test code=NE%) 76.5 % 35.0-73.0 LYMPH % (test code=LY%) 12.8 % 20.0-55.0 MONO % (test code=MO%) 5.3 % 2.5-10.0 EOSINOPH % (test code=EO%) 3.4 % 0.0-5.0 BASOPHIL % (test code=BA%) 0.7 % 0.0-2.0 IG % (test code=IG%) 1.3 % 0.0-0.8 NRBC% (test code=NRBC%) 0.0 % 0.0-0.2 MANDIFF (test code=WMDIFF) NO NO RBC MORPH (test code=WRBCMOR) NORMAL GLUCOMETER GLUCOSE- LAB USE [id number] 22:30:00* Test Item Value Reference Range Comments GLUCOMETER (test code=GMG) 275 mg/dL 70-100 Meter ID: [id number]: [address] [facility] METABOLIC FULTON *WW*2018-03-19 19:54:00* Test Item Value Reference Range Comments GLUCOSE (test code=06D) 449 mg/dL 75-100 SODIUM (test code=01A) 134 mmol/L 136-145 POTASSIUM (test code=01B) 3.6 mmol/L 3.6-5.1 CHLORIDE (test code=04A) 90 mmol/L 98-107 CO2 (test code=02A) 33 mmol/L 22-32 ANION GAP (test code=ANG) 14.2 mmol/L BUN (test code=05D) 20 mg/dL 7-18 CREATININE (test code=03E) 3.4 mg/dL 0.4-1.1 BUN/CREA (test code=BCR) 6 12-20 CALCIUM (test code=09D) 9.4 mg/dL 8.3-9.5 BILI TOTAL (test code=11A) 0.2 mg/dL 0.2-1.0 PROTEIN (test code=07D) 7.5 g/dL 6.4-8.2 ALBUMIN (test code=08D) 3.6 g/dL 3.5-4.8 GLOBULIN (test code=GLB) 3.9 g/dL 1.5-3.8 ALB/GLOB (test code=AGRR) 0.9 1.0-2.6 ALK PHOS (test code=35A) 99 IU/L 42-121 AST (test code=30A) 6 IU/L <=42 ALT (test code=31A) 16 IU/L <=78 LIPASE SERUM WW2018-03-19 19:49:00* Test Item Value Reference Range Comments LIPASE (test code=60A) 256 IU/L 73-393 SERUM MONOCLONAL *WW*2018-03-19 19:46:00* Test Item Value Reference Range Comments PREG SRM (test code=PGS) NEGATIVE NEGATIVE CBC (INCLUDES AUTOMATED DIFFERENTIAL)*[id number] 19:42:00* Test Item Value Reference Range Comments WBC (test code=WBC) 5.8 10\S\3/uL 4.5-11.0 RBC (test code=RBC) 3.23 10\S\6/uL 4.30-5.70 HGB (test code=HBG) 9.7 g/dL 12.0-15.5 HCT (test code=HCT) 30.1 % 35.0-44.0 MCV (test code=MCV) 93.2 fL 81.0-99.0 MCH (test code=MCH) 30.0 pg 27.0-31.0 MCHC (test code=MCHC) 32.2 g/dL 32.0-36.0 RDW (test code=RDW) 15.9 % 11.5-14.5 PLT (test code=PLT) 256 10\S\3/uL 130-400 MPV (test code=MPV) 10.0 fL 9.4-12.4 NEUTROP # (test code=NE#) 4.0 10\S\3/uL 1.6-8.0 LYMPH # (test code=LY#) 1.3 10\S\3/uL 1.1-3.5 MONOCYTE # (test code=MO#) 0.3 10\S\3/uL 0.0-1.1 EOSINOPH # (test code=EO#) 0.2 10\S\3/uL 0.0-0.7 BASOPHIL # (test code=BA#) 0.1 10\S\3/uL 0.0-0.3 IG # (test code=IG#) 0.04 10\S\3/uL 0.00-0.06 NRBC # (test code=NRBC#) 0.00 10\S\3/uL 0.00-0.01 NEUTROPH % (test code=NE%) 67.9 % 35.0-73.0 LYMPH % (test code=LY%) 22.0 % 20.0-55.0 MONO % (test code=MO%) 5.8 % 2.5-10.0 EOSINOPH % (test code=EO%) 2.7 % 0.0-5.0 BASOPHIL % (test code=BA%) 0.9 % 0.0-2.0 IG % (test code=IG%) 0.7 % 0.0-0.8 NRBC% (test code=NRBC%) 0.0 % 0.0-0.2 MANDIFF (test code=WMDIFF) NO NO RBC MORPH (test code=WRBCMOR) NORMAL HEPATITIS B SURFACE ANTIGEN *WW*2018-02-27 04:05:00* Test Item Value Reference Range Comments HBSAG (test code=HBSAG) NON-REACTIVE NON-REACTIVE HEPATITIS B SURFACE ANTIBODY *WW*2018-02-27 03:55:00* Test Item Value Reference Range Comments HBSAB (test code=HBSAB) REACTIVE REACTIVE GLUCOMETER GLUCOSE- LAB USE [id number] 17:35:00* Test Item Value Reference Range Comments GLUCOMETER (test code=GMG) 171 mg/dL 70-100 CLEANED METERMeter ID: [id number]: 5[address] BRISEY[address]UAN DAVID PENA GLUCOMETER GLUCOSE- LAB USE [id number] 12:38:00* Test Item Value Reference Range Comments GLUCOMETER (test code=GMG) 158 mg/dL 70-100 CLEANED METERMeter ID: [id number]: 5183 BRISEYDAJUAN DAVID PENA GLYCOHEMOGLOBIN *WW*2018-02-26 08:49:00* Test Item Value Reference Range Comments Hb A1C % (test code=HBA) 8.3 % 4.2-6.3 COMPREHENSIVE METABOLIC FULTON *WW*2018-02-26 06:21:00* Test Item Value Reference Range Comments GLUCOSE (test code=06D) 47 mg/dL 75-100 SODIUM (test code=01A) 140 mmol/L 136-145 POTASSIUM (test code=01B) 3.9 mmol/L 3.6-5.1 CHLORIDE (test code=04A) 96 mmol/L 98-107 CO2 (test code=02A) 31 mmol/L 22-32 ANION GAP (test code=ANG) 16.5 mmol/L BUN (test code=05D) 26 mg/dL 7-18 CREATININE (test code=03E) 6.0 mg/dL 0.4-1.1 BUN/CREA (test code=BCR) 4 12-20 CALCIUM (test code=09D) 9.8 mg/dL 8.3-9.5 BILI TOTAL (test code=11A) 0.3 mg/dL 0.2-1.0 PROTEIN (test code=07D) 6.8 g/dL 6.4-8.2 ALBUMIN (test code=08D) 3.3 g/dL 3.5-4.8 GLOBULIN (test code=GLB) 3.5 g/dL 1.5-3.8 ALB/GLOB (test code=AGRR) 1.0 1.0-2.6 ALK PHOS (test code=35A) 69 IU/L 42-121 AST (test code=30A) 10 IU/L <=42 ALT (test code=31A) 13 IU/L <=78 GLUCOMETER GLUCOSE- LAB USE [id number] 06:13:00* Test Item Value Reference Range Comments GLUCOMETER (test code=GMG) 104 mg/dL 70-100 CLEANED METERMeter ID: [id number]: 2013 HAILEY SISI CBC (INCLUDES AUTOMATED DIFFERENTIAL)*[id number] 05:59:00* Test Item Value Reference Range Comments WBC (test code=WBC) 5.8 10\S\3/uL 4.5-11.0 RBC (test code=RBC) 3.02 10\S\6/uL 4.30-5.70 HGB (test code=HBG) 9.1 g/dL 12.0-15.5 HCT (test code=HCT) 28.2 % 35.0-44.0 MCV (test code=MCV) 93.4 fL 81.0-99.0 MCH (test code=MCH) 30.1 pg 27.0-31.0 MCHC (test code=MCHC) 32.3 g/dL 32.0-36.0 RDW (test code=RDW) 15.0 % 11.5-14.5 PLT (test code=PLT) 269 10\S\3/uL 130-400 MPV (test code=MPV) 9.4 fL 9.4-12.4 NEUTROP # (test code=NE#) 3.6 10\S\3/uL 1.6-8.0 LYMPH # (test code=LY#) 1.6 10\S\3/uL 1.1-3.5 MONOCYTE # (test code=MO#) 0.5 10\S\3/uL 0.0-1.1 EOSINOPH # (test code=EO#) 0.1 10\S\3/uL 0.0-0.7 BASOPHIL # (test code=BA#) 0.0 10\S\3/uL 0.0-0.3 IG # (test code=IG#) 0.00 10\S\3/uL 0.00-0.06 NRBC # (test code=NRBC#) 0.00 10\S\3/uL 0.00-0.01 NEUTROPH % (test code=NE%) 61.0 % 35.0-73.0 LYMPH % (test code=LY%) 27.3 % 20.0-55.0 MONO % (test code=MO%) 7.7 % 2.5-10.0 EOSINOPH % (test code=EO%) 2.4 % 0.0-5.0 BASOPHIL % (test code=BA%) 0.7 % 0.0-2.0 IG % (test code=IG%) 0.0 % 0.0-0.8 NRBC% (test code=NRBC%) 0.0 % 0.0-0.2 MANDIFF (test code=WMDIFF) NO NO RBC MORPH (test code=WRBCMOR) NORMAL GLUCOMETER GLUCOSE- LAB USE [id number] 00:28:00* Test Item Value Reference Range Comments GLUCOMETER (test code=GMG) 110 mg/dL 70-100 Meter ID: [id number]: 2013 HAILEY PULIBO GLUCOMETER GLUCOSE- LAB USE [id number] 22:52:00* Test Item Value Reference Range Comments GLUCOMETER (test code=GMG) 60 mg/dL 70-100 CLEANED METERMeter ID: [id number]: 2013 HAILEY PULIBO GLUCOMETER GLUCOSE- LAB USE [id number] 22:11:00* Test Item Value Reference Range Comments GLUCOMETER (test code=GMG) 46 mg/dL 70-100 CLEANED METERMeter ID: [id number]: 2013 HAILEY PULIBO GLUCOMETER GLUCOSE- LAB USE [id number] 20:07:00* Test Item Value Reference Range Comments GLUCOMETER (test code=GMG) 52 mg/dL 70-100 CLEANED METERMeter ID: [id number]: 2013 HAILEY PULIBO GLUCOMETER GLUCOSE- LAB USE [id number] 16:11:00* Test Item Value Reference Range Comments GLUCOMETER (test code=GMG) 294 mg/dL 70-100 Meter ID: [id number]: 5[address] [facility] GLUCOMETER GLUCOSE- LAB USE [id number] 12:40:00* Test Item Value Reference Range Comments GLUCOMETER (test code=GMG) 327 mg/dL 70-100 Meter ID: [id number]: [address] [facility] [address] ABDOMEN AND PELVIS WITHOUT CONTRAST *WW*2018-02-25 09:17:57CT abdomen and pelvis without contrastLocation Code: [id number] HISTORY: Abdominal painCOMPARISON: 02/12/2018 02/04/2018, 12/16/2017, 09/12/2017Technique: Helical CT of the abdomen and pelvis was performed without contrast.Thin section axial, s agittal and coronal images were obtained. Automaticexposure control was utilized . Total DLP: 663.03 mGycmFINDINGS:The lung bases are clear. 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 The unenhanced liver, adrenalglands, pancreas, and spleen are unremarkable. The gallbladder is surgicallyabsent. The unopacified loops of ryan l demonstrate no focal thickening or dilatation.The appendix is visualized and i s normal. There is no free peritoneal air orfluid. The abdominal aorta is shana l in caliber and contour. There is noretroperitoneal mass or fluid collection. The urinary bladder is unremarkable.Small bilateral adnexal cystic structures, l ikely ovarian again noted.There isno pelvic mass. Trace free fluid is present wi thin the cul-de-sac. The bones, skin, and surrounding soft tissues are unremar kable.IMPRESSION: No acute abnormality or significant interval change compared t o multiplerecent prior exams. SERUM MONOCLONAL 2018-02-25 08:39:00 * Test Item Value Reference Range Comments PREG SRM (test code=PGS) NEGATIVE NEGATIVE COMPREHENSIVE METABOLIC FULTON 2018-02-25 08:31:00* Test Item Value Reference Range Comments GLUCOSE (test code=06D) 382 mg/dL 75-100 SODIUM (test code=01A) 135 mmol/L 136-145 POTASSIUM (test code=01B) 3.5 mmol/L 3.6-5.1 CHLORIDE (test code=04A) 91 mmol/L 98-107 CO2 (test code=02A) 30 mmol/L 22-32 ANION GAP (test code=ANG) 17.1 mmol/L BUN (test code=05D) 20 mg/dL 7-18 CREATININE (test code=03E) 4.6 mg/dL 0.4-1.1 BUN/CREA (test code=BCR) 4 12-20 CALCIUM (test code=09D) 9.8 mg/dL 8.3-9.5 BILI TOTAL (test code=11A) 0.3 mg/dL 0.2-1.0 PROTEIN (test code=07D) 8.1 g/dL 6.4-8.2 ALBUMIN (test code=08D) 3.8 g/dL 3.5-4.8 GLOBULIN (test code=GLB) 4.3 g/dL 1.5-3.8 ALB/GLOB (test code=AGRR) 0.9 1.0-2.6 ALK PHOS (test code=35A) 91 IU/L 42-121 AST (test code=30A) 13 IU/L <=42 ALT (test code=31A) 15 IU/L <=78 AMYLASE AND LIPASE 2018-02-25 08:31:00* Test Item Value Reference Range Comments AMYLASE (test code=10A) 81 U/L 28-100 LIPASE (test code=60A) 121 IU/L 73-393 CBC (INCLUDES AUTOMATED DIFFERENTIAL)*[id number] 08:19:00* Test Item Value Reference Range Comments WBC (test code=WBC) 8.8 10\S\3/uL 4.5-11.0 RBC (test code=RBC) 2.63 10\S\6/uL 4.30-5.70 HGB (test code=HBG) 7.7 g/dL 12.0-15.5 HCT (test code=HCT) 24.4 % 35.0-44.0 MCV (test code=MCV) 92.8 fL 81.0-99.0 MCH (test code=MCH) 29.3 pg 27.0-31.0 MCHC (test code=MCHC) 31.6 g/dL 32.0-36.0 RDW (test code=RDW) 14.8 % 11.5-14.5 PLT (test code=PLT) 351 10\S\3/uL 130-400 MPV (test code=MPV) 9.7 fL 9.4-12.4 NEUTROP # (test code=NE#) 6.5 10\S\3/uL 1.6-8.0 LYMPH # (test code=LY#) 1.5 10\S\3/uL 1.1-3.5 MONOCYTE # (test code=MO#) 0.5 10\S\3/uL 0.0-1.1 EOSINOPH # (test code=EO#) 0.1 10\S\3/uL 0.0-0.7 BASOPHIL # (test code=BA#) 0.1 10\S\3/uL 0.0-0.3 IG # (test code=IG#) 0.10 10\S\3/uL 0.00-0.06 NRBC # (test code=NRBC#) 0.02 10\S\3/uL 0.00-0.01 NEUTROPH % (test code=NE%) 73.4 % 35.0-73.0 LYMPH % (test code=LY%) 17.4 % 20.0-55.0 MONO % (test code=MO%) 6.1 % 2.5-10.0 EOSINOPH % (test code=EO%) 1.4 % 0.0-5.0 BASOPHIL % (test code=BA%) 0.6 % 0.0-2.0 IG % (test code=IG%) 1.1 % 0.0-0.8 NRBC% (test code=NRBC%) 0.2 % 0.0-0.2 MANDIFF (test code=WMDIFF) NO NO RBC MORPH (test code=WRBCMOR) NORMAL CHEST SINGLE (PORTABLE)2018-02-13 01:17:00 [place] [id number] Patient Name: DEMETRI CROSS MR #: [id number] : 1990 Age/Sex: 27/F Req #: [id number] Adm Physician: Ordered by: TANIA SANTIZO MD Report #: [id number] Location: ER Room/Bed: Procedure: [id number] DX/CHEST SINGLE (POR TABLE) Exam Date: 02/13/18 Exam Time: 0050 REP ORT STATUS: Signed EXAM: CHEST SINGLE (PORTABLE), AP 1 view INDICATION: Fev er COMPARISON: AP view of the chest December 18, 2017 FINDINGS: LINES/TUBES: Stable position of right subclavian chest port LUNGS: No consolidations or edema. PLEURA: No effusions or pneumothorax. HEART AND MEDIASTINUM: Normal size and contour. BONES AND SOFT TISSUES: No acute findings. Right u pper quadrant cholecystectomy clips. IMPRESSION: No evidence of pneumon ia. Signed by: Dr. Juan Ramon Rivas M.D. on 02/13/2018 1:18 AM Dictated By: JUAN RAMON RIVAS MD 7 Transcribed By: MASOUD on 02/13/18117 COPY TO: TANIA PEREZ MD CT ABDOMEN/PELVIS [id number] 01:09:00 [place] [id number] Patient Name: DEMETRI CROSS MR #: [id number] : 1990 Age/Sex: 27/F Req #: [id number] Adm Physician: Ordered by: TANIA SANTIZO MD Report #: [id number] Location: ER Room/Bed: Procedure: [id number] CT/CT ABDOMEN/PELVIS WO Exam Date: 02/13/18 Exam Time: 39 REPORT STATUS: Signed EXAM: CT ABDOMEN AND PELVIS without IV CONTRAST INDICATION: Nausea, vomiting, abdominal pain COMPARISON: CT of the abdomen and pelvis [facility] 2017 TECHNIQUE: The abdomen and pelvis were scanned using a multidetect or helical scanner. Coronal and sagittal reformations were obtained. Routine p rotocol performed. IV Contrast: None Oral Contrast: Redicat CTDIvol has been reviewed. It is below the limits set by the Radiation Protocol Committee (RPC). FINDINGS: LOWER THORAX: No consolidations LIVER: No masses BILIARY: Cholecystectomy. No ductal dilation. SPLEEN: No masses PANCREAS : No masses ADRENALS: No nodules KIDNEYS: There is a fused pelvic kid sanya without nephroureterolithiasis or hydronephrosis. GI TRACT: No wall t hickening or obstruction. Normal appendix. VESSELS: Unremarkable PER ITONEUM/RETROPERITONEUM: Trace free pelvic fluid. LYMPH NODES: No lymphadenopa thy REPRODUCTIVE ORGANS: Interval resolution of left adnexal cyst. BLADDE R: Stable mild circumferential bladder wall thickening. SOFT TISSUES: Shana l BONES: No suspicious bone lesions. IMPRESSION: No acute findings in t he abdomen or pelvis. No bowel obstruction. Signed by: Dr. Juan Ramon alcocer M.D. on 02/13/2018 1:17 AM Dictated By: JUAN RAMON RIVAS MD [facility] Signed By: JUAN RAMON RIVAS MD on 02/13/18116 Transcribed By: MASOUD on 116 COPY TO: TANIA SANTIZO MD CT ABDOMEN AND PELVIS WITHOUT CONTRAST 2018-02-12 19:15:02LOCATION: [id number]: 27-year-old female with upper abdominal pain.COMMENT: Field 3Axial CT imaging of this patient's abdomen and pelvis was obtained without IV,.Coronal and sagittal soft tissue reconstructions were included. An older examination of 02/04/18 is available for comparison.One or more of the following dose reduction techniques are used: Automatedexposure control, adjustment of the mA and/or kV according the patient size,and/or utilization of iterative reconstruction technique.DLP: 547.20 mGy- cmCONTRAST: NoneFINDINGS:The lung bases are clear. 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 to the rightof midline.The upper intestinal tract, small intestine, appendix, and colon areunremarkable.There is no ascites or adenopathy present.In the pelvis the urinary bladder, uterus, and ovaries are unremarkable.The vascular anatomy is unremarkable.The musculoskele wisam gland is unremarkable.IMPRESSION:There are no acute findings in this patient 's abdomen and pelvis on thisunenhanced CT study.Again seen is a hypertrophic, s olitary kidney localized in the pelvis.XR CHEST 2 VIEW 2018-02-12 18:57:21 LOCATION: [id number]: 27-year-old female with upper abdominal pain.COMMENT: F rontal and lateral chest radiographs were obtained. An older study of 02/04/18 i s available for comparison.The lungs are clear and well-aerated. The cardiac doris houette, art, andmediastinum are within normal limits. The skeleton and soft ti ssues areunremarkable. Again seen is a single lumen right subclavian port.IMPRES MICHELLE:Unremarkable radiographic examination of the chest.AMYLASE AND LIPASE 2018-02-12 18:16:00* Test Item Value Reference Range Comments AMYLASE (test code=10A) 66 U/L 28-100 LIPASE (test code=60A) 82 IU/L 73-393 COMPREHENSIVE METABOLIC [place]ULTON 2018-02-12 18:16:00* Test Item Value Reference Range Comments GLUCOSE (test code=06D) 178 mg/dL 75-100 SODIUM (test code=01A) 136 mmol/L 136-145 POTASSIUM (test code=01B) 3.7 mmol/L 3.6-5.1 CHLORIDE (test code=04A) 93 mmol/L 98-107 CO2 (test code=02A) 29 mmol/L 22-32 ANION GAP (test code=ANG) 17.6 mmol/L BUN (test code=05D) 15 mg/dL 7-18 CREATININE (test code=03E) 4.1 mg/dL 0.4-1.1 BUN/CREA (test code=BCR) 4 12-20 CALCIUM (test code=09D) 8.7 mg/dL 8.3-9.5 BILI TOTAL (test code=11A) 0.3 mg/dL 0.2-1.0 PROTEIN (test code=07D) 7.9 g/dL 6.4-8.2 ALBUMIN (test code=08D) 3.9 g/dL 3.5-4.8 GLOBULIN (test code=GLB) 4.0 g/dL 1.5-3.8 ALB/GLOB (test code=AGRR) 1.0 1.0-2.6 ALK PHOS (test code=35A) 85 IU/L 42-121 AST (test code=30A) 8 IU/L <=42 ALT (test code=31A) 12 IU/L <=78 MAGNESIUM 2018-02-12 18:16:00* Test Item Value Reference Range Comments MAGNESIUM (test code=48A) 1.8 mg/dL 1.8-2.4 CARDIAC PROFILE 2018-02-12 18:03:00* Test Item Value Reference Range Comments TROPONIN I (test code=A84) <0.015 ng/mL 0.000-0.045 CKMB (test code=A49) 3.0 ng/mL <=3.6 CPK (test code=32A) 58 IU/L 26-192 PHOSPHORUS (P04) 2018-02-12 18:02:00* Test Item Value Reference Range Comments PHOSPHORUS (test code=43D) 3.2 mg/dL 2.7-4.6 SERUM MONOCLONAL 2018-02-12 17:58:00* Test Item Value Reference Range Comments PREG SRM (test code=PGS) NEGATIVE NEGATIVE CBC (INCLUDES AUTOMATED DIFFERENTIAL)*[id number] 17:52:00* Test Item Value Reference Range Comments WBC (test code=WBC) 8.1 10\S\3/uL 4.5-11.0 RBC (test code=RBC) 3.46 10\S\6/uL 4.30-5.70 HGB (test code=HBG) 10.4 g/dL 12.0-15.5 HCT (test code=HCT) 31.6 % 35.0-44.0 MCV (test code=MCV) 91.3 fL 81.0-99.0 MCH (test code=MCH) 30.1 pg 27.0-31.0 MCHC (test code=MCHC) 32.9 g/dL 32.0-36.0 RDW (test code=RDW) 15.1 % 11.5-14.5 PLT (test code=PLT) 326 10\S\3/uL 130-400 MPV (test code=MPV) 9.7 fL 9.4-12.4 NEUTROP # (test code=NE#) 6.8 10\S\3/uL 1.6-8.0 LYMPH # (test code=LY#) 0.7 10\S\3/uL 1.1-3.5 MONOCYTE # (test code=MO#) 0.4 10\S\3/uL 0.0-1.1 EOSINOPH # (test code=EO#) 0.1 10\S\3/uL 0.0-0.7 BASOPHIL # (test code=BA#) 0.0 10\S\3/uL 0.0-0.3 IG # (test code=IG#) 0.05 10\S\3/uL 0.00-0.06 NRBC # (test code=NRBC#) 0.00 10\S\3/uL 0.00-0.01 NEUTROPH % (test code=NE%) 84.1 % 35.0-73.0 LYMPH % (test code=LY%) 8.8 % 20.0-55.0 MONO % (test code=MO%) 4.9 % 2.5-10.0 EOSINOPH % (test code=EO%) 1.5 % 0.0-5.0 BASOPHIL % (test code=BA%) 0.1 % 0.0-2.0 IG % (test code=IG%) 0.6 % 0.0-0.8 NRBC% (test code=NRBC%) 0.0 % 0.0-0.2 MANDIFF (test code=WMDIFF) NO NO RBC MORPH (test code=WRBCMOR) NORMAL BLOOD [id number] 14:40:00* Test Item Value Reference Range Comments Culture Observations (test code=COB1) NO GROWTH AFTER 5 DAYS BLOOD [id number] 14:40:00* Test Item Value Reference Range Comments Culture Observations (test code=COB1) NO GROWTH AFTER 5 DAYS HEPATITIS B CORE ANTIBODY,[id number] 08:25:00* Test Item Value Reference Range Comments HEPATITIS B CORE AB TOTAL (test svsg=[id number]) NON-REACTIVE NON-REACTIVE TEST PERFORMED AT:[facility] [address] [id number]VIC STEWART M.D. GLUCOMETER GLUCOSE- LAB USE [id number] 15:46:00* Test Item Value Reference Range Comments GLUCOMETER (test code=GMG) 150 mg/dL 70-100 CLEANED METERMeter ID: [id number]: [id number] ANI NATE HEPATITIS B SURFACE [id number] 11:39:00* Test Item Value Reference Range Comments HBSAB (test code=HBSAB) REACTIVE REACTIVE HEPATITIS B SURFACE [id number] 11:26:00* Test Item Value Reference Range Comments HBSAG (test code=HBSAG) NON-REACTIVE NON-REACTIVE GLUCOMETER GLUCOSE- LAB USE [id number] 11:01:00* Test Item Value Reference Range Comments GLUCOMETER (test code=GMG) 216 mg/dL 70-100 CLEANED METERMeter ID: [id number]: [id number] ANI BRYANEZ GLUCOMETER GLUCOSE- LAB USE [id number] 05:46:00* Test Item Value Reference Range Comments GLUCOMETER (test code=GMG) 167 mg/dL 70-100 Meter ID: [id number]: 93Cecile MARIAA LOZANO BASIC METABOLIC [id number] 05:01:00* Test Item Value Reference Range Comments GLUCOSE (test code=06D) 151 mg/dL 75-100 SODIUM (test code=01A) 139 mmol/L 136-145 POTASSIUM (test code=01B) 4.9 mmol/L 3.6-5.1 CHLORIDE (test code=04A) 99 mmol/L 98-107 CO2 (test code=02A) 27 mmol/L 22-32 ANION GAP (test code=ANG) 17.9 mmol/L BUN (test code=05D) 43 mg/dL 7-18 CREATININE (test code=03E) 6.3 mg/dL 0.4-1.1 BUN/CREA (test code=BCR) 7 12-20 CALCIUM (test code=09D) 9.8 mg/dL 8.3-9.5 CBC (INCLUDES AUTOMATED DIFFERENTIAL)2018-02-05 04:47:00* Test Item Value Reference Range Comments WBC (test code=WBC) 6.2 10\S\3/uL 4.5-11.0 RBC (test code=RBC) 2.81 10\S\6/uL 4.30-5.70 HGB (test code=HBG) 8.3 g/dL 12.0-15.5 HCT (test code=HCT) 27.2 % 35.0-44.0 MCV (test code=MCV) 96.8 fL 81.0-99.0 MCH (test code=MCH) 29.5 pg 27.0-31.0 MCHC (test code=MCHC) 30.5 g/dL 32.0-36.0 RDW (test code=RDW) 16.2 % 11.5-14.5 PLT (test code=PLT) 227 10\S\3/uL 130-400 MPV (test code=MPV) 9.9 fL 9.4-12.4 NEUTROP # (test code=NE#) 3.9 10\S\3/uL 1.6-8.0 LYMPH # (test code=LY#) 1.6 10\S\3/uL 1.1-3.5 MONOCYTE # (test code=MO#) 0.5 10\S\3/uL 0.0-1.1 EOSINOPH # (test code=EO#) 0.1 10\S\3/uL 0.0-0.7 BASOPHIL # (test code=BA#) 0.0 10\S\3/uL 0.0-0.3 IG # (test code=IG#) 0.05 10\S\3/uL 0.00-0.06 NRBC # (test code=NRBC#) 0.00 10\S\3/uL 0.00-0.01 NEUTROPH % (test code=NE%) 62.2 % 35.0-73.0 LYMPH % (test code=LY%) 26.1 % 20.0-55.0 MONO % (test code=MO%) 8.1 % 2.5-10.0 EOSINOPH % (test code=EO%) 2.3 % 0.0-5.0 BASOPHIL % (test code=BA%) 0.5 % 0.0-2.0 IG % (test code=IG%) 0.8 % 0.0-0.8 NRBC% (test code=NRBC%) 0.0 % 0.0-0.2 MANDIFF (test code=MDIFF) NO NO RBC MORPH (test code=RBCMOR) NORMAL GLUCOMETER GLUCOSE- LAB USE [id number] 01:00:00* Test Item Value Reference Range Comments GLUCOMETER (test code=GMG) 153 mg/dL 70-100 Meter ID: [id number]: [id number] MARIAAKickservMAN GLUCOMETER GLUCOSE- LAB USE [id number] 23:54:00* Test Item Value Reference Range Comments GLUCOMETER (test code=GMG) 47 mg/dL 70-100 Meter ID: [id number]: 9358 MARIAA LOZANO GLUCOMETER GLUCOSE- LAB USE [id number] 17:32:00* Test Item Value Reference Range Comments GLUCOMETER (test code=GMG) 372 mg/dL 70-100 CLEANED METERMeter ID: [id number]: 9086 ANI SULLIVAN GLUCOMETER GLUCOSE- LAB USE [id number] 15:51:00* Test Item Value Reference Range Comments GLUCOMETER (test code=GMG) 364 mg/dL 70-100 CLEANED METERMeter ID: [id number]: [id number] PAMELA LOONEY GLUCOMETER GLUCOSE- LAB USE [id number] 11:54:00* Test Item Value Reference Range Comments GLUCOMETER (test code=GMG) 354 mg/dL 70-100 CLEANED METERMeter ID: [id number]: [id number] ABDOMEN AND PELVIS WITHOUT CONTRAST *WW*2018-02-04 10:04:49CT abdomen and pelvis without contrastLocation Code: [id number] HISTORY: [id number]: Abdominal [id number]: Crohn's diseaseCOMPARISON: 12/16/17Technique: Helical CT of the abdomen and pelvis was performed withoutintravenous contrast. Thin section axial, sagittal and coronal images wereobtained. One or more of the following dose reduction techniques were used:Automated exposure control, adjustment of the mA and or KV according to patientsize, and/or utilization of iterative rec onstruction technique. DLP: 434.92mGy-cm.FINDINGS:The lung bases are clear. The liver, gallbladder, adrenal glands, pancreas, and spleen are unremarkable.The k idneys are absent in the renal fossa. There is a dominant hypertrophicright pelv ic kidney identified without masses, nephrolithiasis, orhydronephrosis.The unopa cified loops of bowel demonstrate no focal thickening or dilatation.No thickened appendix. There is no free peritoneal air or fluid. The abdominal aorta is norm al in caliber and contour. There is noretroperitoneal mass or fluid collection. The urinary bladder is unremarkable.There is no pelvic mass or fluid collection. No evidence of diverticulitis.The bones, skin, and surrounding soft tissues are unremarkable.IMPRESSION: Nonspecific small bowel pattern without evidence of mucosal thickening orstrictures.Absent kidneys within the renal fossa with hyper trophic right pelvic kidneyagain seen.Previously seen complex cystic mass in the left adnexa is now absent. SERUM MONOCLONAL *WW*2018-02-04 09:29:00* Test Item Value Reference Range Comments PREG SRM (test code=PGS) NEGATIVE NEGATIVE LACTIC ACID WW2018-02-04 09:09:00* Test Item Value Reference Range Comments LACTIC ACD (test code=LA) 0.9 mmol/L 0.4-2.0 COMPREHENSIVE METABOLIC FULTON *WW*2018-02-04 09:06:00* Test Item Value Reference Range Comments GLUCOSE (test code=06D) 314 mg/dL 75-100 SODIUM (test code=01A) 138 mmol/L 136-145 POTASSIUM (test code=01B) 4.5 mmol/L 3.6-5.1 CHLORIDE (test code=04A) 97 mmol/L 98-107 CO2 (test code=02A) 27 mmol/L 22-32 ANION GAP (test code=ANG) 18.2 mmol/L BUN (test code=05D) 33 mg/dL 7-18 CREATININE (test code=03E) 5.1 mg/dL 0.4-1.1 BUN/CREA (test code=BCR) 7 12-20 CALCIUM (test code=09D) 10.1 mg/dL 8.3-9.5 BILI TOTAL (test code=11A) 0.3 mg/dL 0.2-1.0 PROTEIN (test code=07D) 8.2 g/dL 6.4-8.2 ALBUMIN (test code=08D) 4.0 g/dL 3.5-4.8 GLOBULIN (test code=GLB) 4.3 g/dL 1.5-3.8 ALB/GLOB (test code=AGRR) 0.9 1.0-2.6 ALK PHOS (test code=35A) 95 IU/L 42-121 AST (test code=30A) 10 IU/L <=42 ALT (test code=31A) 15 IU/L <=78 AMYLASE AND LIPASE 2018-02-04 09:06:00* Test Item Value Reference Range Comments AMYLASE (test code=10A) 100 U/L 28-100 LIPASE (test code=60A) 173 IU/L 73-393 CBC (INCLUDES AUTOMATED DIFFERENTIAL)*[id number] 08:57:00* Test Item Value Reference Range Comments WBC (test code=WBC) 5.8 10\S\3/uL 4.5-11.0 RBC (test code=RBC) 3.57 10\S\6/uL 4.30-5.70 HGB (test code=HBG) 10.7 g/dL 12.0-15.5 HCT (test code=HCT) 33.6 % 35.0-44.0 MCV (test code=MCV) 94.1 fL 81.0-99.0 MCH (test code=MCH) 30.0 pg 27.0-31.0 MCHC (test code=MCHC) 31.8 g/dL 32.0-36.0 RDW (test code=RDW) 15.9 % 11.5-14.5 PLT (test code=PLT) 264 10\S\3/uL 130-400 MPV (test code=MPV) 9.8 fL 9.4-12.4 NEUTROP # (test code=NE#) 4.1 10\S\3/uL 1.6-8.0 LYMPH # (test code=LY#) 1.0 10\S\3/uL 1.1-3.5 MONOCYTE # (test code=MO#) 0.4 10\S\3/uL 0.0-1.1 EOSINOPH # (test code=EO#) 0.1 10\S\3/uL 0.0-0.7 BASOPHIL # (test code=BA#) 0.0 10\S\3/uL 0.0-0.3 IG # (test code=IG#) 0.07 10\S\3/uL 0.00-0.06 NRBC # (test code=NRBC#) 0.00 10\S\3/uL 0.00-0.01 NEUTROPH % (test code=NE%) 71.8 % 35.0-73.0 LYMPH % (test code=LY%) 18.1 % 20.0-55.0 MONO % (test code=MO%) 6.1 % 2.5-10.0 EOSINOPH % (test code=EO%) 2.3 % 0.0-5.0 BASOPHIL % (test code=BA%) 0.5 % 0.0-2.0 IG % (test code=IG%) 1.2 % 0.0-0.8 NRBC% (test code=NRBC%) 0.0 % 0.0-0.2 MANDIFF (test code=WMDIFF) NO NO RBC MORPH (test code=WRBCMOR) NORMAL XR CHEST 1 VIEW PORTABLE *WW*2018-02-04 08:54:21EXAM: CHEST ONE VIEWINDICATION: Abdominal painCOMPARISON: 01/04/18TECHNIQUE: AP view of the chest.FINDINGS: There is a right-sided chemotherapy port with tip overlying the SVC. Thecardiomediastinal silhouette is normal. The lungs are clear bilaterally. Nopneumothorax or pleural effusion is identified. The osseous structures areunremarkable.IMPRESSION: No acute cardiopulmonary process.LOCATION: [id number] AND LIPASE 2018-01-17 16:38:00* Test Item Value Reference Range Comments AMYLASE (test code=10A) 109 U/L 28-100 LIPASE (test code=60A) 117 IU/L 73-393 COMPREHENSIVE METABOLIC FULTON *WW*2018-01-17 16:38:00* Test Item Value Reference Range Comments GLUCOSE (test code=06D) 136 mg/dL 75-100 SODIUM (test code=01A) 130 mmol/L 136-145 POTASSIUM (test code=01B) 4.9 mmol/L 3.6-5.1 CHLORIDE (test code=04A) 89 mmol/L 98-107 CO2 (test code=02A) 25 mmol/L 22-32 ANION GAP (test code=ANG) 20.8 mmol/L BUN (test code=05D) 52 mg/dL 7-18 CREATININE (test code=03E) 11.1 mg/dL 0.4-1.1 BUN/CREA (test code=BCR) 5 12-20 CALCIUM (test code=09D) 9.1 mg/dL 8.3-9.5 BILI TOTAL (test code=11A) 0.3 mg/dL 0.2-1.0 PROTEIN (test code=07D) 8.9 g/dL 6.4-8.2 ALBUMIN (test code=08D) 4.2 g/dL 3.5-4.8 GLOBULIN (test code=GLB) 4.7 g/dL 1.5-3.8 ALB/GLOB (test code=AGRR) 0.9 1.0-2.6 ALK PHOS (test code=35A) 89 IU/L 42-121 AST (test code=30A) 19 IU/L <=42 ALT (test code=31A) <6 IU/L <=78 CBC (INCLUDES AUTOMATED DIFFERENTIAL)*[id number] 16:23:00* Test Item Value Reference Range Comments WBC (test code=WBC) 7.2 10\S\3/uL 4.5-11.0 RBC (test code=RBC) 3.63 10\S\6/uL 4.30-5.70 HGB (test code=HBG) 10.7 g/dL 12.0-15.5 HCT (test code=HCT) 33.2 % 35.0-44.0 MCV (test code=MCV) 91.5 fL 81.0-99.0 MCH (test code=MCH) 29.5 pg 27.0-31.0 MCHC (test code=MCHC) 32.2 g/dL 32.0-36.0 RDW (test code=RDW) 14.3 % 11.5-14.5 PLT (test code=PLT) 371 10\S\3/uL 130-400 MPV (test code=MPV) 9.1 fL 9.4-12.4 NEUTROP # (test code=NE#) 4.2 10\S\3/uL 1.6-8.0 LYMPH # (test code=LY#) 2.0 10\S\3/uL 1.1-3.5 MONOCYTE # (test code=MO#) 0.7 10\S\3/uL 0.0-1.1 EOSINOPH # (test code=EO#) 0.2 10\S\3/uL 0.0-0.7 BASOPHIL # (test code=BA#) 0.1 10\S\3/uL 0.0-0.3 IG # (test code=IG#) 0.03 10\S\3/uL 0.00-0.06 NRBC # (test code=NRBC#) 0.00 10\S\3/uL 0.00-0.01 NEUTROPH % (test code=NE%) 58.5 % 35.0-73.0 LYMPH % (test code=LY%) 27.6 % 20.0-55.0 MONO % (test code=MO%) 9.3 % 2.5-10.0 EOSINOPH % (test code=EO%) 3.2 % 0.0-5.0 BASOPHIL % (test code=BA%) 1.0 % 0.0-2.0 IG % (test code=IG%) 0.4 % 0.0-0.8 NRBC% (test code=NRBC%) 0.0 % 0.0-0.2 MANDIFF (test code=WMDIFF) NO NO RBC MORPH (test code=WRBCMOR) NORMAL BLOOD [id number] 07:26:00* Test Item Value Reference Range Comments Culture Observations (test code=COB1) NO GROWTH AFTER 5 DAYS BLOOD [id number] 07:25:00* Test Item Value Reference Range Comments Culture Observations (test code=COB1) NO GROWTH AFTER 5 DAYS BASIC METABOLIC [id number] 16:39:00* Test Item Value Reference Range Comments GLUCOSE (test code=06D) 104 mg/dL 75-100 SODIUM (test code=01A) 140 mmol/L 136-145 POTASSIUM (test code=01B) 4.4 mmol/L 3.6-5.1 CHLORIDE (test code=04A) 98 mmol/L 98-107 CO2 (test code=02A) 31 mmol/L 22-32 ANION GAP (test code=ANG) 15.4 mmol/L BUN (test code=05D) 48 mg/dL 7-18 CREATININE (test code=03E) 7.9 mg/dL 0.4-1.1 BUN/CREA (test code=BCR) 6 12-20 CALCIUM (test code=09D) 8.6 mg/dL 8.3-9.5 GLUCOMETER GLUCOSE- LAB USE [id number] 12:28:00* Test Item Value Reference Range Comments GLUCOMETER (test code=GMG) 256 mg/dL 70-100 DAILY MAINTENANCEMeter ID: [id number]: 9277 ЕКАТЕРИНА MATUTE BASIC METABOLIC [id number] 11:14:00* Test Item Value Reference Range Comments GLUCOSE (test code=06D) 383 mg/dL 75-100 SODIUM (test code=01A) 137 mmol/L 136-145 POTASSIUM (test code=01B) 4.9 mmol/L 3.6-5.1 CHLORIDE (test code=04A) 93 mmol/L 98-107 CO2 (test code=02A) 27 mmol/L 22-32 ANION GAP (test code=ANG) 21.9 mmol/L BUN (test code=05D) 45 mg/dL 7-18 CREATININE (test code=03E) 7.7 mg/dL 0.4-1.1 BUN/CREA (test code=BCR) 6 12-20 CALCIUM (test code=09D) 8.8 mg/dL 8.3-9.5 GLUCOMETER GLUCOSE- LAB USE [id number] 08:19:00* Test Item Value Reference Range Comments GLUCOMETER (test code=GMG) 478 mg/dL 70-100 Meter ID: [id number]: 9277 ЕКАТЕРИНА MATUTE BASIC METABOLIC [id number] 06:12:00* Test Item Value Reference Range Comments GLUCOSE (test code=06D) 559 mg/dL 75-100 SODIUM (test code=01A) 134 mmol/L 136-145 POTASSIUM (test code=01B) 4.8 mmol/L 3.6-5.1 CHLORIDE (test code=04A) 90 mmol/L 98-107 CO2 (test code=02A) 21 mmol/L 22-32 ANION GAP (test code=ANG) 27.8 mmol/L BUN (test code=05D) 42 mg/dL 7-18 CREATININE (test code=03E) 6.9 mg/dL 0.4-1.1 BUN/CREA (test code=BCR) 6 12-20 CALCIUM (test code=09D) 8.9 mg/dL 8.3-9.5 XR CHEST 1 VIEW PORTABLE 2018-01-04 20:17:30EXAM: Portable chest x- rayLOCATION: [id number]: [id number]: Chest [id number]: Dyspnea. COMPARISON: chest radiograph 08/04/17DISCUSSION:A single AP portable chest radiograph was submitted for interpretation. Right chest port catheter terminates over the superior cavoatrial junction.The lungs are well inflated and grossly clear.The cardiac silhouette is within normal limits.Osseous structures are intact.IMPRESSION:No acute cardiopulmonary abnormalities.COMPREHENSIVE METABOLIC FULTON 2018-01-04 19:16:00* Test Item Value Reference Range Comments GLUCOSE (test code=06D) 321 mg/dL 75-100 SODIUM (test code=01A) 136 mmol/L 136-145 POTASSIUM (test code=01B) 3.7 mmol/L 3.6-5.1 CHLORIDE (test code=04A) 94 mmol/L 98-107 CO2 (test code=02A) 29 mmol/L 22-32 ANION GAP (test code=ANG) 17.0 mmol/L BUN (test code=05D) 26 mg/dL 7-18 CREATININE (test code=03E) 5.5 mg/dL 0.4-1.1 BUN/CREA (test code=BCR) 5 12-20 CALCIUM (test code=09D) 8.7 mg/dL 8.3-9.5 BILI TOTAL (test code=11A) 0.4 mg/dL 0.2-1.0 PROTEIN (test code=07D) 9.0 g/dL 6.4-8.2 ALBUMIN (test code=08D) 4.1 g/dL 3.5-4.8 GLOBULIN (test code=GLB) 4.9 g/dL 1.5-3.8 ALB/GLOB (test code=AGRR) 0.8 1.0-2.6 ALK PHOS (test code=35A) 109 IU/L 42-121 AST (test code=30A) 17 IU/L <=42 ALT (test code=31A) 15 IU/L <=78 AMYLASE AND LIPASE 2018-01-04 19:16:00* Test Item Value Reference Range Comments AMYLASE (test code=10A) 70 U/L 28-100 LIPASE (test code=60A) 141 IU/L 73-393 PRO TIME AND PTT 2018-01-04 19:15:00* Test Item Value Reference Range Comments PT (test code=TT) 12.2 s 9.8-13.6 INR (test code=INR) 1.1 INRH (test code=INRH) SUGGESTED THERAPEUTIC RANGE FOR INR: 2.5 - 3.5 For Patients with Prosthetic Valves or Patients with recurrent Thromboembolic Events 2.0 - 3.0 For Most Other Applications PTT (test code=PTT) 40.6 s 20.2-38.0 PTTH (test code=PTTH) To monitor the effectiveness of heparin, we offer the Anti-Xa (Heparin Assay). It can be used for either unfractionated or LMW Heparin. Order Code is ANTI-XA CBC (INCLUDES AUTOMATED DIFFERENTIAL)*[id number] 19:00:00* Test Item Value Reference Range Comments WBC (test code=WBC) 7.6 10\S\3/uL 4.5-11.0 RBC (test code=RBC) 3.91 10\S\6/uL 4.30-5.70 HGB (test code=HBG) 11.6 g/dL 12.0-15.5 HCT (test code=HCT) 35.6 % 35.0-44.0 MCV (test code=MCV) 91.0 fL 81.0-99.0 MCH (test code=MCH) 29.7 pg 27.0-31.0 MCHC (test code=MCHC) 32.6 g/dL 32.0-36.0 RDW (test code=RDW) 15.3 % 11.5-14.5 PLT (test code=PLT) 320 10\S\3/uL 130-400 MPV (test code=MPV) 9.7 fL 9.4-12.4 NEUTROP # (test code=NE#) 6.1 10\S\3/uL 1.6-8.0 LYMPH # (test code=LY#) 0.9 10\S\3/uL 1.1-3.5 MONOCYTE # (test code=MO#) 0.4 10\S\3/uL 0.0-1.1 EOSINOPH # (test code=EO#) 0.1 10\S\3/uL 0.0-0.7 BASOPHIL # (test code=BA#) 0.0 10\S\3/uL 0.0-0.3 IG # (test code=IG#) 0.08 10\S\3/uL 0.00-0.06 NRBC # (test code=NRBC#) 0.00 10\S\3/uL 0.00-0.01 NEUTROPH % (test code=NE%) 79.4 % 35.0-73.0 LYMPH % (test code=LY%) 11.9 % 20.0-55.0 MONO % (test code=MO%) 5.4 % 2.5-10.0 EOSINOPH % (test code=EO%) 1.8 % 0.0-5.0 BASOPHIL % (test code=BA%) 0.5 % 0.0-2.0 IG % (test code=IG%) 1.0 % 0.0-0.8 NRBC% (test code=NRBC%) 0.0 % 0.0-0.2 MANDIFF (test code=WMDIFF) NO NO RBC MORPH (test code=WRBCMOR) NORMAL U/S PELVIS2017-12-16 19:38:58LOCATION: [id number]: 27-year-old female who presents with adnexal masses seen on recent CTimaging of the abdomen and pelvis.COMMENT:Sonographic imaging of this patient's pelvis was obtained transabdominally andendovaginally. Grayscale, color-flow, and Doppler waveform imaging modalitieswere utilized.A CT examination of the abdomen and pelvis obtained earlier today is availablefor comparison. Also, a pelvic ultrasound examination of 11/17/17 is availablefor comparison.The left ovary a complex and simple cystic changes are seen. There are alldimension of the ovary is 78 53 x 50 mm. Complex area measures 37 x 34 x 42 mmand has the appearance of a hemorrhagic cyst. This is by athin-walled septation to a simple cyst measuring 45 x 30 x 44 mm.The right ovary is unremarkable, measuring 18 x 12 x 12 mm.Both ovaries exhibit low resistance arterial blood flow on Doppler study.The uterus is unremarkable measuring 7.9 x 4.4 x 4.1 cm. The endometrial stripeis 1.9 mm thick.IMPRESSION:The left ovary contains a complex echo pattern consisting of a hemorrhagic cystseparated from a simple cyst by a thin-walled septation. There is no evidenceof torsion of the left ovary.The uterus and right ovary are unremarkable.CT STONE PROTOCOL STUDY 2017-12-16 17:56:37CT OF THE ABDOMEN AND PELVIS WITHOUT CONTRAST, RENAL STONE PROTOCOLLOCATION CODE: [id number]: Abdominal pain Comparison: CT dated 11/16/17, ultrasound dated 0 11/16/[address] scan dated10/21/17TECHNIQUE: 3 mm noncontrast enhanced axial imag es of the abdomen and pelviswere performed and reviewed in soft tissue, lung and bone windows. 4 mm coronalreformatted images were performed as well.FINDINGS:So me groundglass density noted in left posterior costophrenic angles new sinceprev ious CT scan and raises suspicion for pneumonia. Surgical clips lie in thegallbl adder fossa. Crossed fused ectopic kidney again noted. There is no grossevidence for obstructive uropathy. The gallbladder is surgically absent. Liver,adrenals, spleen, pancreas are unremarkable.Since the previous CT scan there is interval development of a 5.9 cm bilobedleft adnexal structure. Additionally, there appea rs to be a new 5 cm denseright adnexal structure. This can be further evaluated by sonography ifindicated. 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 Remainder of the bowel is unremar kable.Bone windows are normal.IMPRESSION:1. Interval development of adnexal stru ctures for which correlation withsonography May BE indicated.2. No gross free pe lvic fluid.3. Normal appendix.4. Cross fused ectopic kidney. 5. Status post chol ecystectomy. 6. Suspect interval development of left lower lobe early pneumonia. PRO TIME AND PTT 2017-12-16 16:47:00* Test Item Value Reference Range Comments PT (test code=TT) 11.0 s 9.8-13.6 INR (test code=INR) 1.0 INRH (test code=INRH) SUGGESTED THERAPEUTIC RANGE FOR INR: 2.5 - 3.5 For Patients with Prosthetic Valves or Patients with recurrent Thromboembolic Events 2.0 - 3.0 For Most Other Applications PTT (test code=PTT) 30.7 s 20.2-38.0 PTTH (test code=PTTH) To monitor the effectiveness of heparin, we offer the Anti-Xa (Heparin Assay). It can be used for either unfractionated or LMW Heparin. Order Code is ANTI-XA CBC (INCLUDES AUTOMATED DIFFERENTIAL)*[id number] 16:47:00* Test Item Value Reference Range Comments WBC (test code=WBC) 5.7 10\S\3/uL 4.5-11.0 RBC (test code=RBC) 3.76 10\S\6/uL 4.30-5.70 HGB (test code=HBG) 11.1 g/dL 12.0-15.5 HCT (test code=HCT) 33.9 % 35.0-44.0 MCV (test code=MCV) 90.2 fL 81.0-99.0 MCH (test code=MCH) 29.5 pg 27.0-31.0 MCHC (test code=MCHC) 32.7 g/dL 32.0-36.0 RDW (test code=RDW) 16.4 % 11.5-14.5 PLT (test code=PLT) 259 10\S\3/uL 130-400 MPV (test code=MPV) 9.8 fL 9.4-12.4 NEUTROP # (test code=NE#) 4.1 10\S\3/uL 1.6-8.0 LYMPH # (test code=LY#) 0.9 10\S\3/uL 1.1-3.5 MONOCYTE # (test code=MO#) 0.4 10\S\3/uL 0.0-1.1 EOSINOPH # (test code=EO#) 0.2 10\S\3/uL 0.0-0.7 BASOPHIL # (test code=BA#) 0.0 10\S\3/uL 0.0-0.3 IG # (test code=IG#) 0.08 10\S\3/uL 0.00-0.06 NRBC # (test code=NRBC#) 0.00 10\S\3/uL 0.00-0.01 NEUTROPH % (test code=NE%) 71.2 % 35.0-73.0 LYMPH % (test code=LY%) 16.0 % 20.0-55.0 MONO % (test code=MO%) 7.7 % 2.5-10.0 EOSINOPH % (test code=EO%) 3.0 % 0.0-5.0 BASOPHIL % (test code=BA%) 0.7 % 0.0-2.0 IG % (test code=IG%) 1.4 % 0.0-0.8 NRBC% (test code=NRBC%) 0.0 % 0.0-0.2 MANDIFF (test code=WMDIFF) NO NO RBC MORPH (test code=WRBCMOR) NORMAL BRAIN NATRIURETIC PROTEIN *WW*2017-12-16 16:43:00* Test Item Value Reference Range Comments proBNP (test code=PBNP) 5702 pg/mL 0-125 AMYLASE AND LIPASE *WW*2017-12-16 16:41:00* Test Item Value Reference Range Comments AMYLASE (test code=10A) 81 U/L 28-100 LIPASE (test code=60A) 220 IU/L 73-393 COMPREHENSIVE METABOLIC FULTON 2017-12-16 16:41:00* Test Item Value Reference Range Comments GLUCOSE (test code=06D) 233 mg/dL 75-100 SODIUM (test code=01A) 135 mmol/L 136-145 POTASSIUM (test code=01B) 3.6 mmol/L 3.6-5.1 CHLORIDE (test code=04A) 94 mmol/L 98-107 CO2 (test code=02A) 31 mmol/L 22-32 ANION GAP (test code=ANG) 13.8 mmol/L BUN (test code=05D) 18 mg/dL 7-18 CREATININE (test code=03E) 3.8 mg/dL 0.4-1.1 BUN/CREA (test code=BCR) 5 12-20 CALCIUM (test code=09D) 8.5 mg/dL 8.3-9.5 BILI TOTAL (test code=11A) 0.3 mg/dL 0.2-1.0 PROTEIN (test code=07D) 7.7 g/dL 6.4-8.2 ALBUMIN (test code=08D) 3.5 g/dL 3.5-4.8 GLOBULIN (test code=GLB) 4.2 g/dL 1.5-3.8 ALB/GLOB (test code=AGRR) 0.8 1.0-2.6 ALK PHOS (test code=35A) 105 IU/L 42-121 AST (test code=30A) 7 IU/L <=42 ALT (test code=31A) 10 IU/L <=78 CARDIAC PROFILE 2017-12-16 16:40:00* Test Item Value Reference Range Comments TROPONIN I (test code=A84) <0.015 ng/mL 0.000-0.045 CKMB (test code=A49) 1.7 ng/mL <=3.6 CPK (test code=32A) 43 IU/L 26-192 SERUM MONOCLONAL 2017-12-16 16:37:00* Test Item Value Reference Range Comments PREG SRM (test code=PGS) NEGATIVE NEGATIVE MAGNESIUM WW2017-12-16 16:35:00* Test Item Value Reference Range Comments MAGNESIUM (test code=48A) 1.8 mg/dL 1.8-2.4 GLUCOMETER GLUCOSE- LAB USE [id number] 12:10:00* Test Item Value Reference Range Comments GLUCOMETER (test code=GMG) 92 mg/dL 70-100 Meter ID: [id number]: [id number] BRISEYDA PENA BASIC METABOLIC PANEL *WW*2017-11-20 06:27:00* Test Item Value Reference Range Comments GLUCOSE (test code=06D) 82 mg/dL 75-100 SODIUM (test code=01A) 133 mmol/L 136-145 POTASSIUM (test code=01B) 4.1 mmol/L 3.6-5.1 CHLORIDE (test code=04A) 93 mmol/L 98-107 CO2 (test code=02A) 24 mmol/L 22-32 ANION GAP (test code=ANG) 19.6 mmol/L BUN (test code=05D) 46 mg/dL 7-18 CREATININE (test code=03E) 8.6 mg/dL 0.4-1.1 BUN/CREA (test code=BCR) 5 12-20 CALCIUM (test code=09D) 8.7 mg/dL 8.3-9.5 CBC (INCLUDES AUTOMATED DIFFERENTIAL)*[id number] 06:14:00* Test Item Value Reference Range Comments WBC (test code=WBC) 7.7 10\S\3/uL 4.5-11.0 RBC (test code=RBC) 4.25 10\S\6/uL 4.30-5.70 HGB (test code=HBG) 12.2 g/dL 12.0-15.5 HCT (test code=HCT) 38.9 % 35.0-44.0 MCV (test code=MCV) 91.5 fL 81.0-99.0 MCH (test code=MCH) 28.7 pg 27.0-31.0 MCHC (test code=MCHC) 31.4 g/dL 32.0-36.0 RDW (test code=RDW) 16.3 % 11.5-14.5 PLT (test code=PLT) 242 10\S\3/uL 130-400 MPV (test code=MPV) 9.4 fL 9.4-12.4 NEUTROP # (test code=NE#) 5.1 10\S\3/uL 1.6-8.0 LYMPH # (test code=LY#) 1.8 10\S\3/uL 1.1-3.5 MONOCYTE # (test code=MO#) 0.6 10\S\3/uL 0.0-1.1 EOSINOPH # (test code=EO#) 0.0 10\S\3/uL 0.0-0.7 BASOPHIL # (test code=BA#) 0.0 10\S\3/uL 0.0-0.3 IG # (test code=IG#) 0.03 10\S\3/uL 0.00-0.06 NRBC # (test code=NRBC#) 0.00 10\S\3/uL 0.00-0.01 NEUTROPH % (test code=NE%) 67.0 % 35.0-73.0 LYMPH % (test code=LY%) 23.2 % 20.0-55.0 MONO % (test code=MO%) 8.4 % 2.5-10.0 EOSINOPH % (test code=EO%) 0.5 % 0.0-5.0 BASOPHIL % (test code=BA%) 0.5 % 0.0-2.0 IG % (test code=IG%) 0.4 % 0.0-0.8 NRBC% (test code=NRBC%) 0.0 % 0.0-0.2 MANDIFF (test code=WMDIFF) NO NO RBC MORPH (test code=WRBCMOR) NORMAL GLUCOMETER GLUCOSE- LAB USE [id number] 06:06:00* Test Item Value Reference Range Comments GLUCOMETER (test code=GMG) 84 mg/dL 70-100 Meter ID: [id number]: 2013 HAILEY LAIRD GLUCOMETER GLUCOSE- LAB USE [id number] 21:21:00* Test Item Value Reference Range Comments GLUCOMETER (test code=GMG) 110 mg/dL 70-100 Meter ID: [id number]: 2013 HAILEY LAIRD GLUCOMETER GLUCOSE- LAB USE [id number] 15:53:00* Test Item Value Reference Range Comments GLUCOMETER (test code=GMG) 142 mg/dL 70-100 Meter ID: [id number]: 5354 DAVID NWAUGO GLUCOMETER GLUCOSE- LAB USE [id number] 12:06:00* Test Item Value Reference Range Comments GLUCOMETER (test code=GMG) 165 mg/dL 70-100 Meter ID: [id number]: 5354 DAVID [employer] GLUCOMETER GLUCOSE- LAB USE [id number] 08:50:00* Test Item Value Reference Range Comments GLUCOMETER (test code=GMG) 182 mg/dL 70-100 DAILY MAINTENANCEMeter ID: [id number]: 5354 DAVID [employer] GLUCOMETER GLUCOSE- LAB USE [id number] 07:33:00* Test Item Value Reference Range Comments GLUCOMETER (test code=GMG) 60 mg/dL 70-100 Meter ID: [id number]: 9210 [employer] BASIC METABOLIC PANEL 2017-11-19 06:42:00* Test Item Value Reference Range Comments GLUCOSE (test code=06D) 60 mg/dL 75-100 SODIUM (test code=01A) 133 mmol/L 136-145 POTASSIUM (test code=01B) 3.7 mmol/L 3.6-5.1 CHLORIDE (test code=04A) 89 mmol/L 98-107 CO2 (test code=02A) 29 mmol/L 22-32 ANION GAP (test code=ANG) 18.8 mmol/L BUN (test code=05D) 29 mg/dL 7-18 CREATININE (test code=03E) 6.2 mg/dL 0.4-1.1 BUN/CREA (test code=BCR) 5 12-20 CALCIUM (test code=09D) 9.6 mg/dL 8.3-9.5 CBC (INCLUDES AUTOMATED DIFFERENTIAL)*[id number] 06:10:00* Test Item Value Reference Range Comments WBC (test code=WBC) 10.3 10\S\3/uL 4.5-11.0 RBC (test code=RBC) 4.69 10\S\6/uL 4.30-5.70 HGB (test code=HBG) 13.2 g/dL 12.0-15.5 HCT (test code=HCT) 43.1 % 35.0-44.0 MCV (test code=MCV) 91.9 fL 81.0-99.0 MCH (test code=MCH) 28.1 pg 27.0-31.0 MCHC (test code=MCHC) 30.6 g/dL 32.0-36.0 RDW (test code=RDW) 16.7 % 11.5-14.5 PLT (test code=PLT) 290 10\S\3/uL 130-400 MPV (test code=MPV) 9.2 fL 9.4-12.4 NEUTROP # (test code=NE#) 7.1 10\S\3/uL 1.6-8.0 LYMPH # (test code=LY#) 1.9 10\S\3/uL 1.1-3.5 MONOCYTE # (test code=MO#) 1.1 10\S\3/uL 0.0-1.1 EOSINOPH # (test code=EO#) 0.0 10\S\3/uL 0.0-0.7 BASOPHIL # (test code=BA#) 0.1 10\S\3/uL 0.0-0.3 IG # (test code=IG#) 0.05 10\S\3/uL 0.00-0.06 NRBC # (test code=NRBC#) 0.00 10\S\3/uL 0.00-0.01 NEUTROPH % (test code=NE%) 69.3 % 35.0-73.0 LYMPH % (test code=LY%) 18.4 % 20.0-55.0 MONO % (test code=MO%) 11.0 % 2.5-10.0 EOSINOPH % (test code=EO%) 0.3 % 0.0-5.0 BASOPHIL % (test code=BA%) 0.5 % 0.0-2.0 IG % (test code=IG%) 0.5 % 0.0-0.8 NRBC% (test code=NRBC%) 0.0 % 0.0-0.2 MANDIFF (test code=WMDIFF) NO NO RBC MORPH (test code=WRBCMOR) NORMAL GLUCOMETER GLUCOSE- LAB USE [id number] 20:25:00* Test Item Value Reference Range Comments GLUCOMETER (test code=GMG) 170 mg/dL 70-100 CLEANED METERMeter ID: [id number]: 5533 SURESH HUNT GLUCOMETER GLUCOSE- LAB USE [id number] 19:15:00* Test Item Value Reference Range Comments GLUCOMETER (test code=GMG) 168 mg/dL 70-100 CLEANED METERMeter ID: [id number]: 1429 SALINA PING HEPATITIS B SURFACE ANTIGEN 2017-11-18 12:32:00* Test Item Value Reference Range Comments HBSAG (test code=HBSAG) NON-REACTIVE NON-REACTIVE GLUCOMETER GLUCOSE- LAB USE [id number] 12:30:00* Test Item Value Reference Range Comments GLUCOMETER (test code=GMG) 117 mg/dL 70-100 CLEANED METERMeter ID: [id number]: 1429 SALINA PING BASIC METABOLIC PANEL 2017-11-18 06:04:00* Test Item Value Reference Range Comments GLUCOSE (test code=06D) 85 mg/dL 75-100 SODIUM (test code=01A) 137 mmol/L 136-145 POTASSIUM (test code=01B) 3.9 mmol/L 3.6-5.1 CHLORIDE (test code=04A) 92 mmol/L 98-107 CO2 (test code=02A) 27 mmol/L 22-32 ANION GAP (test code=ANG) 22.0 mmol/L BUN (test code=05D) 48 mg/dL 7-18 CREATININE (test code=03E) 8.1 mg/dL 0.4-1.1 BUN/CREA (test code=BCR) 6 12-20 CALCIUM (test code=09D) 9.7 mg/dL 8.3-9.5 CBC (INCLUDES AUTOMATED DIFFERENTIAL)*[id number] 05:48:00* Test Item Value Reference Range Comments WBC (test code=WBC) 9.7 10\S\3/uL 4.5-11.0 RBC (test code=RBC) 4.26 10\S\6/uL 4.30-5.70 HGB (test code=HBG) 12.3 g/dL 12.0-15.5 HCT (test code=HCT) 38.4 % 35.0-44.0 MCV (test code=MCV) 90.1 fL 81.0-99.0 MCH (test code=MCH) 28.9 pg 27.0-31.0 MCHC (test code=MCHC) 32.0 g/dL 32.0-36.0 RDW (test code=RDW) 16.7 % 11.5-14.5 PLT (test code=PLT) 256 10\S\3/uL 130-400 MPV (test code=MPV) 9.6 fL 9.4-12.4 NEUTROP # (test code=NE#) 7.0 10\S\3/uL 1.6-8.0 LYMPH # (test code=LY#) 1.8 10\S\3/uL 1.1-3.5 MONOCYTE # (test code=MO#) 0.8 10\S\3/uL 0.0-1.1 EOSINOPH # (test code=EO#) 0.0 10\S\3/uL 0.0-0.7 BASOPHIL # (test code=BA#) 0.0 10\S\3/uL 0.0-0.3 IG # (test code=IG#) 0.04 10\S\3/uL 0.00-0.06 NRBC # (test code=NRBC#) 0.00 10\S\3/uL 0.00-0.01 NEUTROPH % (test code=NE%) 72.2 % 35.0-73.0 LYMPH % (test code=LY%) 18.9 % 20.0-55.0 MONO % (test code=MO%) 7.8 % 2.5-10.0 EOSINOPH % (test code=EO%) 0.3 % 0.0-5.0 BASOPHIL % (test code=BA%) 0.4 % 0.0-2.0 IG % (test code=IG%) 0.4 % 0.0-0.8 NRBC% (test code=NRBC%) 0.0 % 0.0-0.2 MANDIFF (test code=WMDIFF) NO NO RBC MORPH (test code=WRBCMOR) NORMAL GLUCOMETER GLUCOSE- LAB USE [id number] 20:06:00* Test Item Value Reference Range Comments GLUCOMETER (test code=GMG) 196 mg/dL 70-100 Meter ID: [id number]: 5533 SURESH HUNT GLUCOMETER GLUCOSE- LAB USE [id number] 16:49:00* Test Item Value Reference Range Comments GLUCOMETER (test code=GMG) 149 mg/dL 70-100 CLEANED METERMeter ID: [id number]: 1429 SALINA PING GLUCOMETER GLUCOSE- LAB USE [id number] 12:24:00* Test Item Value Reference Range Comments GLUCOMETER (test code=GMG) 94 mg/dL 70-100 CLEANED METERMeter ID: [id number]: 1429 SALINA PING U/S PELVIS*WW*2017-11-17 09:52:19EXAMINATION: U/S PELVIS*WW*.LOCATION: D4.HISTORY: Abdominal pain, nausea, vomiting.COMPARISON: CT abdomen 11/16/2017.FINDINGS: Sonographic evaluation of the pelvis was performed transabdominally through adistended urinary bladder.The uterus appears unremarkable in echotexture and measures 6.3 x 5.2 x 6.3 cm.The endometrial stripe appears unremarkable and measures approximately 6 mm inthickness. The right ovary measures 4.4 x 1.7 x 4.6 cm and demonstrates a 1.9 cmfollicular cyst within it.The left ovary measures 2.8 x 2.4 x 2.1 cm and demonstrates a 1.8 cm follicularcyst within it.Arterial and venous flow is noted within the bilateral ovaries.Small free fluid is identified in the right adnexa.Right pelvic kidney i s identified measuring 10.1 cm without hydronephrosis.IMPRESSION:Small bilateral follicular cysts with free fluid in right adnexa. No tubularstructure in right adnexa is appreciated sonographically. Consider phfby-kscziecvmh-xj ultrasound.P elvic right kidney, better appreciated on recent CT.BASIC METABOLIC PANEL *WW* 2017-11-17 06:09:00* Test Item Value Reference Range Comments GLUCOSE (test code=06D) 310 mg/dL 75-100 SODIUM (test code=01A) 135 mmol/L 136-145 POTASSIUM (test code=01B) 4.3 mmol/L 3.6-5.1 CHLORIDE (test code=04A) 93 mmol/L 98-107 CO2 (test code=02A) 27 mmol/L 22-32 ANION GAP (test code=ANG) 19.4 mmol/L BUN (test code=05D) 34 mg/dL 7-18 CREATININE (test code=03E) 5.7 mg/dL 0.4-1.1 BUN/CREA (test code=BCR) 6 12-20 CALCIUM (test code=09D) 8.9 mg/dL 8.3-9.5 CBC (INCLUDES AUTOMATED DIFFERENTIAL)*[id number] 05:49:00* Test Item Value Reference Range Comments WBC (test code=WBC) 12.8 10\S\3/uL 4.5-11.0 RBC (test code=RBC) 4.05 10\S\6/uL 4.30-5.70 HGB (test code=HBG) 11.6 g/dL 12.0-15.5 HCT (test code=HCT) 36.3 % 35.0-44.0 MCV (test code=MCV) 89.6 fL 81.0-99.0 MCH (test code=MCH) 28.6 pg 27.0-31.0 MCHC (test code=MCHC) 32.0 g/dL 32.0-36.0 RDW (test code=RDW) 16.0 % 11.5-14.5 PLT (test code=PLT) 246 10\S\3/uL 130-400 MPV (test code=MPV) 9.6 fL 9.4-12.4 NEUTROP # (test code=NE#) 11.8 10\S\3/uL 1.6-8.0 LYMPH # (test code=LY#) 0.5 10\S\3/uL 1.1-3.5 MONOCYTE # (test code=MO#) 0.4 10\S\3/uL 0.0-1.1 EOSINOPH # (test code=EO#) 0.0 10\S\3/uL 0.0-0.7 BASOPHIL # (test code=BA#) 0.0 10\S\3/uL 0.0-0.3 IG # (test code=IG#) 0.07 10\S\3/uL 0.00-0.06 NRBC # (test code=NRBC#) 0.00 10\S\3/uL 0.00-0.01 NEUTROPH % (test code=NE%) 91.9 % 35.0-73.0 LYMPH % (test code=LY%) 4.1 % 20.0-55.0 MONO % (test code=MO%) 3.3 % 2.5-10.0 EOSINOPH % (test code=EO%) 0.0 % 0.0-5.0 BASOPHIL % (test code=BA%) 0.2 % 0.0-2.0 IG % (test code=IG%) 0.5 % 0.0-0.8 NRBC% (test code=NRBC%) 0.0 % 0.0-0.2 MANDIFF (test code=WMDIFF) NO NO RBC MORPH (test code=WRBCMOR) NORMAL GLUCOMETER GLUCOSE- LAB USE [id number] 23:12:00* Test Item Value Reference Range Comments GLUCOMETER (test code=GMG) 457 mg/dL 70-100 Meter ID: [id number]: 5509 [facility] CT ABDOMEN AND PELVIS WITHOUT CONTRAST *WW*2017-11-16 21:10:52LOCATION CODE: D4CT ABDOMEN AND PELVIS WITHOUT CONTRASTHISTORY: Abdominal painCOMPARISON: CT abdomen and pelvis dated 10/21/17.TECHNIQUE: Serial axial CT the abdomen and pelvis were obtained from above thediaphragm to the inferior pubic without administration of contrast. Coronal andsagittal reconstructions are provided. One or more of the following dosereduction techniques were used: Automated exposure control, adjustment of themAs and Kv. According to patient size, use of iterative reconstructionreconstruction technique.DLP 736.1mGy-cm.FINDINGS: Lung bases: The lung bases are clear. Liver: No focal abnormality.Gallbladder: Allen rgically absent.. No biliary dilatation.Kidneys: Cross fused malpositioned kidne ys in the right hemipelvis, somewhatanteriorly rotated. No hydronephrosis or rodríguez culi however.Adrenal glands: Unremarkable.Spleen: Normal size.Pancreas: Normal, no peripancreatic fluid or fat stranding.Bowel: No bowel obstruction. Normal mariana endix.Vascular: Vascular structures are normal size.Lymph nodes: No evidence of lymphadenopathy.Peritoneum: No free air or free fluid. Pelvic: Left adnexal cyst s measuring up to 2 cm. This may be followed up foroutpatient ultrasound. Uterus is in size and otherwise unremarkable.Fluid-filled linear structure in the right adnexa, possibly prominent tomeasuring up to 1 cm (see series 6). Appearance of mild bladder wall thickeningat 4 mm is stable.Osseous: No aggressive appearing osseous lesions. IMPRESSION:1. Normal right lower quadrant and appendix.2. Tubal structure at the right adnexa, possibly hydrosalpinx. 2 cm leftadnexal cyst. F indings are may be better evaluated on pelvic ultrasound ifrelevant. 3. Appearan ce of mild bladder wall thickening, likely patient's baseline.Please correlate w ith urinalysis.4. Crossed- fused right hemipelvic kidney, stable. No hydronephro sis orcalculus.COMPREHENSIVE METABOLIC FULTON *WW*2017-11-16 20:10:00* Test Item Value Reference Range Comments GLUCOSE (test code=06D) 257 mg/dL 75-100 SODIUM (test code=01A) 134 mmol/L 136-145 POTASSIUM (test code=01B) 3.3 mmol/L 3.6-5.1 CHLORIDE (test code=04A) 93 mmol/L 98-107 CO2 (test code=02A) 27 mmol/L 22-32 ANION GAP (test code=ANG) 17.5 mmol/L BUN (test code=05D) 20 mg/dL 7-18 CREATININE (test code=03E) 4.0 mg/dL 0.4-1.1 BUN/CREA (test code=BCR) 5 12-20 CALCIUM (test code=09D) 9.1 mg/dL 8.3-9.5 BILI TOTAL (test code=11A) 0.3 mg/dL 0.2-1.0 PROTEIN (test code=07D) 9.7 g/dL 6.4-8.2 ALBUMIN (test code=08D) 4.4 g/dL 3.5-4.8 GLOBULIN (test code=GLB) 5.3 g/dL 1.5-3.8 ALB/GLOB (test code=AGRR) 0.8 1.0-2.6 ALK PHOS (test code=35A) 147 IU/L 42-121 AST (test code=30A) 9 IU/L <=42 ALT (test code=31A) 11 IU/L <=78 SERUM MONOCLONAL *WW*2017-11-16 20:07:00* Test Item Value Reference Range Comments PREG SRM (test code=PGS) NEGATIVE NEGATIVE LIPASE SERUM WW2017-11-16 20:05:00* Test Item Value Reference Range Comments LIPASE (test code=60A) 295 IU/L 73-393 CBC (INCLUDES AUTOMATED DIFFERENTIAL)*[id number] 19:55:00* Test Item Value Reference Range Comments WBC (test code=WBC) 10.6 10\S\3/uL 4.5-11.0 RBC (test code=RBC) 4.33 10\S\6/uL 4.30-5.70 HGB (test code=HBG) 12.3 g/dL 12.0-15.5 HCT (test code=HCT) 38.6 % 35.0-44.0 MCV (test code=MCV) 89.1 fL 81.0-99.0 MCH (test code=MCH) 28.4 pg 27.0-31.0 MCHC (test code=MCHC) 31.9 g/dL 32.0-36.0 RDW (test code=RDW) 15.8 % 11.5-14.5 PLT (test code=PLT) 261 10\S\3/uL 130-400 MPV (test code=MPV) 9.1 fL 9.4-12.4 NEUTROP # (test code=NE#) 8.4 10\S\3/uL 1.6-8.0 LYMPH # (test code=LY#) 1.2 10\S\3/uL 1.1-3.5 MONOCYTE # (test code=MO#) 0.7 10\S\3/uL 0.0-1.1 EOSINOPH # (test code=EO#) 0.2 10\S\3/uL 0.0-0.7 BASOPHIL # (test code=BA#) 0.0 10\S\3/uL 0.0-0.3 IG # (test code=IG#) 0.12 10\S\3/uL 0.00-0.06 NRBC # (test code=NRBC#) 0.00 10\S\3/uL 0.00-0.01 NEUTROPH % (test code=NE%) 79.1 % 35.0-73.0 LYMPH % (test code=LY%) 11.1 % 20.0-55.0 MONO % (test code=MO%) 6.2 % 2.5-10.0 EOSINOPH % (test code=EO%) 2.1 % 0.0-5.0 BASOPHIL % (test code=BA%) 0.4 % 0.0-2.0 IG % (test code=IG%) 1.1 % 0.0-0.8 NRBC% (test code=NRBC%) 0.0 % 0.0-0.2 MANDIFF (test code=WMDIFF) NO NO RBC MORPH (test code=WRBCMOR) NORMAL HEPATITIS B CORE AB TOTAL 2017-11-03 09:40:00* Test Item Value Reference Range Comments HEPATITIS B CORE AB TOTAL (test wrqt=[id number]) NON-REACTIVE NON-REACTIVE TEST PERFORMED AT:[facility] [address] [id number] STEWART M.D. HEPATITIS B SURFACE ANTIGEN 2017-11-02 15:53:00* Test Item Value Reference Range Comments HBSAG (test code=HBSAG) NON-REACTIVE NON-REACTIVE HEPATITIS B SURFACE ANTIBODY 2017-11-02 15:41:00* Test Item Value Reference Range Comments HBSAB (test code=HBSAB) REACTIVE REACTIVE GLUCOMETER GLUCOSE- LAB USE [id number] 11:17:00* Test Item Value Reference Range Comments GLUCOMETER (test code=GMG) 120 mg/dL 70-100 DAILY MAINTENANCEMeter ID: [id number]: 9016 [facility] BASIC METABOLIC PANEL 2017-11-02 06:34:00* [...] 7.4 mg/dL 8.3-9.5 GLUCOMETER GLUCOSE- LAB USE [id number] 05:41:00* Test Item Value Reference Range Comments GLUCOMETER (test code=GMG) 150 mg/dL 70-100 Meter ID: [id number]: 9125 CARLOS GODFREY XR ABDOMEN 2 VIEWS W/PA CHEST 2017-11-02 00:06:35CHEST AND ABDOMEN RADIOGRAPHSLOCATION: R16.INDICATION: [id number]: Abdominal pain.TECHNIQUE: PA radiograph of the chest; upright and supine AP radiographs of rayne bdomen.COMPARISON: None.FINDINGS:The lungs are clear. There is no pneumothorax. The cardiomediastinal silhouetteis normal.Normal caliber loops of small bowel an d colon are visualized. There is noradiographic evidence of pneumoperitoneum. Allen rgical clips project over theright upper quadrant.IMPRESSION:Nonspecific bowel g as pattern. No acute abnormality visualized in the [...] code=31A) 10 IU/L <=78 AMYLASE AND LIPASE *WW*2017-11-01 23:55:00* Test Item Value Reference Range Comments [...] (test code=PGS) NEGATIVE NEGATIVE CBC (INCLUDES AUTOMATED DIFFERENTIAL)*[id number] 23:26:00* Test Item Value Reference Range Comments [...] (test code=WRBCMOR) NORMAL GLUCOMETER GLUCOSE- LAB USE [id number] 10:47:00* Test Item Value Reference Range Comments GLUCOMETER (test code=GMG) 363 mg/dL 70-100 Meter ID: [id number]: 9208 NEDRA SALTER GLUCOMETER GLUCOSE- LAB USE [id number] 05:19:00* Test Item Value Reference Range Comments GLUCOMETER (test code=GMG) 193 mg/dL 70-100 Meter ID: [id number]: 9125 Kindo NetworkLYN GODFREY GLUCOMETER GLUCOSE- LAB USE [id number] 20:30:00* Test Item Value Reference Range Comments GLUCOMETER (test code=GMG) 303 mg/dL 70-100 Meter ID: [id number]: 9125 TYMBERLYN GODFREY GLUCOMETER GLUCOSE- LAB USE [id number] 17:00:00* Test Item Value Reference Range Comments GLUCOMETER (test code=GMG) 138 mg/dL 70-100 Meter ID: [id number]: 9208 NEDRA SALTER GLUCOMETER GLUCOSE- LAB USE [id number] 12:28:00* Test Item Value Reference Range Comments GLUCOMETER (test code=GMG) 241 mg/dL 70-100 CLEANED METERMeter ID: [id number]: 4842 [facility] METABOLIC [id number] 06:21:00* Test Item Value Reference Range Comments [...] NORMAL CT ABDOMEN AND PELVIS WITHOUT CONTRAST *WW*2017-10-21 21:09:40Examination: Abdomen and pelvic CT without contrastLocation code: B1Jpyevfhajt: Abdomen and pelvic CT 09/12/17Technique:Axial noncontrast imaging through the abdomen and pelvis is performed followedby coronal and sagittal reformations. One or more of the following dosereduction techniques were used: Automated exposure control, adjustment of themA and or KV according to patient size, and/or utilization of iterativereconstruction technique.Discussion:Clinical history is remarkable for epigastric pain, vomiting. Lung bases areclear. The heart is normal in s ize.Evaluation is limited by the lack of contrast media. The liver is unremarkab le.Gallbladder is surgically absent. Spleen, pancreas, and adrenal glands appear normal. The kidneys are not identified in the renal fossa. 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 No hydronephrosis orhydroureter is present. The bladder is remarkable for mild wall thickening.Uterus and adnexa appear normal.Caliber of the bowel appears be within normal limits, mild feces is presentwithin the colon. Appendix were seen is normal.There are no lytic or blastic lesions present within the osseous structures.Impression:1. Mild constip ation. SERUM MONOCLONAL 2017-10-21 20:31:00* Test Item Value Reference Range Comments PREG SRM (test code=PGS) NEGATIVE NEGATIVE AMYLASE AND LIPASE *WW*2017-10-21 18:13:00* Test Item Value Reference Range Comments AMYLASE (test code=10A) 120 U/L 28-100 LIPASE (test code=60A) 310 IU/L 73-393 COMPREHENSIVE METABOLIC FULTON *WW*2017-10-21 18:13:00* Test Item Value Reference Range Comments [...] code=48A) 2.2 mg/dL 1.8-2.4 CBC (INCLUDES AUTOMATED DIFFERENTIAL)*[id number] 17:57:00* Test Item Value Reference Range Comments [...] code=WRBCMOR) NORMAL HEPATITIS B CORE AB TOTAL 2017-09-13 14:51:00* Test Item Value Reference Range Comments HEPATITIS B CORE AB TOTAL (test gkab=[id number]) NON-REACTIVE NON-REACTIVE TEST PERFORMED AT:[facility] [address] [id number]VIC STEWART M.D. COMPREHENSIVE METABOLIC FULTON 2017-09-13 07:10:00* Test Item Value Reference Range Comments [...] code=31A) 13 IU/L <=78 CBC (INCLUDES AUTOMATED DIFFERENTIAL)*[id number] 06:48:00* Test Item Value Reference Range Comments [...] (test code=WRBCMOR) NORMAL GLUCOMETER GLUCOSE- LAB USE [id number] 21:33:00* Test Item Value Reference Range Comments GLUCOMETER (test code=GMG) 122 mg/dL 70-100 Meter ID: [id number]: [id number] KASDEMARCO AWOLOLA GLUCOMETER GLUCOSE- LAB USE [id number] 16:30:00* Test Item Value Reference Range Comments GLUCOMETER (test code=GMG) 205 mg/dL 70-100 CLEANED METERMeter ID: [id number]: 0832 FLORA FORIO GLUCOMETER GLUCOSE- LAB USE [id number] 11:36:00* Test Item Value Reference Range Comments GLUCOMETER (test code=GMG) 122 mg/dL 70-100 CLEANED METERMeter ID: [id number]: [address] ABDOMEN AND PELVIS WITHOUT CONTRAST *WW*2017-09-12 10:03:36CT abdomen and pelvis without contrastLocation Code: [id number] HISTORY: [id number]: Crohn's diseaseCOMPARISON: 08/06/17Technique: Helical CT of the [...] pancreas, and spleen are unremarkable. Thegallbladder is surgic ally absent. Horseshoe kidney again seen in the upperpelvis without stones or ob struction.There is some straightening of a loop of terminal ileum but without si gnificantsurrounding inflammation. This may simply represent a normal course alt houghinvolvement with known Crohn's disease cannot be excluded. No significantme senteric inflammation, abscess, or free air.The abdominal aorta is normal in rodríguez iber and contour. There is noretroperitoneal mass or fluid collection. The urin maxi bladder is unremarkable.There is no pelvic mass or fluid collection. No thi ckened appendix noted.The bones, skin, and surrounding soft tissues are unremark able.IMPRESSION: 1. Straightening of a loop of terminal ileum may represent a no rmal variationversus mild involvement with known Crohn's disease. No significant inflammationnoted.2. Horseshoe kidney without obstruction or stones. Previous c holecystectomy.COMPREHENSIVE METABOLIC FULTON 2017-09-12 06:30:00* Test Item Value [...] code=31A) 11 IU/L <=78 CBC (INCLUDES AUTOMATED DIFFERENTIAL)*[id number] 06:08:00* Test Item Value Reference Range Comments [...] (test code=WRBCMOR) NORMAL GLUCOMETER GLUCOSE- LAB USE [id number] 21:45:00* Test Item Value Reference Range Comments GLUCOMETER (test code=GMG) 111 mg/dL 70-100 CLEANED METERMeter ID: [id number]: [id number] DARCIE KENDRICK HEPATITIS B SURFACE ANTIBODY 2017-09-11 18:29:00* Test Item Value Reference Range Comments HBSAB (test code=HBSAB) REACTIVE REACTIVE HEPATITIS B SURFACE ANTIGEN *WW*2017-09-11 18:08:00* Test Item Value Reference Range Comments HBSAG (test code=HBSAG) NON-REACTIVE NON-REACTIVE GLUCOMETER GLUCOSE- LAB USE [id number] 16:26:00* Test Item Value Reference Range Comments GLUCOMETER (test code=GMG) 76 mg/dL 70-100 CLEANED METERMeter ID: [id number]: 0832 FLORA FORIO GLUCOMETER GLUCOSE- LAB USE [id number] 11:32:00* Test Item Value Reference Range Comments GLUCOMETER (test code=GMG) 178 mg/dL 70-100 CLEANED METERMeter ID: [id number]: 0832 FLORA FORIO COMPREHENSIVE METABOLIC FULTON 2017-09-11 06:20:00* Test Item [...] code=31A) 13 IU/L <=78 CBC (INCLUDES AUTOMATED DIFFERENTIAL)*[id number] 06:06:00* Test Item Value Reference Range Comments [...] (test code=WRBCMOR) NORMAL GLUCOMETER GLUCOSE- LAB USE [id number] 20:04:00* Test Item Value Reference Range Comments GLUCOMETER (test code=GMG) 183 mg/dL 70-100 Meter ID: [id number]: [id number] ESTERLITA RORY GLUCOMETER GLUCOSE- LAB USE [id number] 16:19:00* Test Item Value Reference Range Comments GLUCOMETER (test code=GMG) 175 mg/dL 70-100 CLEANED METERMeter ID: [id number]: 2349 JANELLE THAMPI GLUCOMETER GLUCOSE- LAB USE [id number] 12:32:00* Test Item Value Reference Range Comments GLUCOMETER (test code=GMG) 61 mg/dL 70-100 CLEANED METERMeter ID: [id number]: [id number] JANELLE THAMPI GLUCOMETER GLUCOSE- LAB USE [id number] 12:15:00* Test Item Value Reference Range Comments GLUCOMETER (test code=GMG) 59 mg/dL 70-100 CLEANED METERMeter ID: [id number]: 2349 JANELLE SIOMARAMPI GLUCOMETER GLUCOSE- LAB USE [id number] 05:20:00* Test Item Value Reference Range Comments GLUCOMETER (test code=GMG) 221 mg/dL 70-100 Meter ID: [id number]: [id number] JOHN MATTHEW GLUCOMETER GLUCOSE- LAB USE [id number] 22:02:00* Test Item Value Reference Range Comments GLUCOMETER (test code=GMG) 315 mg/dL 70-100 Meter ID: [id number]: 5304 JOHN MATTHEW AMYLASE AND LIPASE *WW*2017-09-09 18:08:00* Test Item [...] code=48A) 2.1 mg/dL 1.8-2.4 CBC (INCLUDES AUTOMATED DIFFERENTIAL)*[id number] 17:58:00* Test Item Value Reference Range Comments [...] 1.8 cm, without internal flow. This is consist ent with a hematoma.IMPRESSION: 1. No evidence of deep venous thrombosis.2. The fistula is patent.3. Slightly complex fluid collection measuring 4.1 x 1.7 x 1.8 cm slightlyposterior to the fistula, consistent with a hematoma. SERUM MONOCLONAL 2017-08-06 20:31:00* Test Item Value Reference Range Comments PREG SRM (test code=PGS) NEGATIVE NEGATIVE PRO TIME AND PTT 2017-08-06 20:19:00* Test Item Value Reference Range Comments [...] code=48A) 1.9 mg/dL 1.8-2.4 CBC (INCLUDES AUTOMATED DIFFERENTIAL)*[id number] 20:03:00* Test Item Value Reference Range Comments [...] and sagittal reformatted images were performedDISCUSSION:Lower thorax: Unremarkabl e.Hepatobiliary: Unremarkable. No biliary ductal dilatation.Gallbladder: Surgic ally absent.Spleen: Unremarkable.Pancreas: Unremarkable.Kidneys: A horseshoe kidney is identified. No renal calculi, hydronephrosis,or evidence of solid shawnee l mass is seen. The hyperdense foci associated withthe kidneys on the prior CT a re no longer seen, and given the resolution ofhyperdense material in the bladder , probably reflects interval clearance of IVcontrast.Adrenals: Unremarkable.Lym ph nodes: No lymphadenopathy.Peritoneum/retroperitoneum: No intraabdominal free air or free fluid.Vessels: Unremarkable.Pelvic organs/bladder: Mild diffuse marc dder wall thickening is greater thanexpected low bladder volume. The uterus and adnexa are unremarkable.Bowel: Enteric contrast within the colon is probably fro m the previous CT on08/04/2017. The appendix is normal. No abnormal bowel wall th ickening or bowelobstruction is seen.Bones/soft tissues: No fracture or evidence of bony neoplastic process. L5 ismostly sacralized.IMPRESSION:1. Normal appendi x. No evidence of acute abdominal inflammation or bowelobstruction.2. Interval r esolution of hyperdense foci associated with the horseshoe kidneyand within the bladder lumen. This is consistent with interval clearance ofpreviously administe red IV contrast.3. Mild diffuse bladder wall thickening is greater than expected for lowbladder volume, and could be seen with cystitis in the appropriate clini calscenario. Correlation with urinalysis is suggested.4. Status post cholecystec isma.One or more of the following dose reduction techniques were used: Automated exposure control, adjustment of the mA and/or kV according to patient size,and/o r utilization of iterative reconstruction technique.CT ABDOMEN AND PELVIS WITHOUT CONTRAST *WW*2017-08-04 17:54:49EXAM: CT abdomen and pelvis with contrastLocation: R16 INDICATION: Abdominal pain, nausea and vomitingCOMPARISON: CT abdomen and pelvis on 07/28/2017TECHNIQUE: Axial images of the abdomen and pelvis were obtained withoutcontrast. Coronal and sagittal reformatted images were performed.DISCUSSION:Lower thorax: A central venous catheter tip is in the right ventricle.Hepatobiliary: Unremarkable. No biliary ductal dilatation.Gallbladder: Absent.Spleen: Unremarkable.Pancreas: Unr emarkable.Kidneys: A horseshoe kidney is noted. There are several small hyperde nse fociassociated with the kidneys which appear similar to the previous exam, p ossiblyhyperdense cysts. No renal calculi or hydronephrosis is seen.Adrenals: U nremarkable.Lymph nodes: No lymphadenopathy.Peritoneum/retroperitoneum: No intra abdominal free air or free fluid.Vessels: Unremarkable.Pelvic organs/bladder: T here is hyperdensity in the bladder lumen, presumablyfrom excreted contrast. Thi s could alternatively represent gross blood in theurine. Correlation with histor y and/or urinalysis is needed. The uterus andovaries are unremarkable.Bowel: The appendix is normal. No abnormal bowel wall thickening or bowelobstruction is se en.Bones/soft tissues: No fracture or evidence of bony neoplastic process. Noher myke is seen.IMPRESSION:1. Normal appendix. No evidence of acute abdominal inflam mation or bowelobstruction.2. Hyperdense material in the bladder lumen presumabl y reflects excretedcontrast from a recent contrast exam. This could alternativel y represent grosshematuria. Correlation with history and/or urinalysis is sugges marley.3. Horseshoe kidney. There are several small hyperdense foci associated with the kidneys, possibly hyperdense cysts. Outpatient renal ultrasound follow-upsho uld be considered.4. Status post cholecystectomy.One or more of the following do se reduction techniques were used: Automatedexposure control, adjustment of the mA and/or kV according to patient size,and/or utilization of iterative reconstru ction technique.DLP: 773 mGy-cm CTDI 16.3 mGyCOMPREHENSIVE METABOLIC FULTON 2017-08-04 17:48:00* Test Item Value Reference Range Comments [...] (test code=PGS) NEGATIVE NEGATIVE CBC (INCLUDES AUTOMATED DIFFERENTIAL)*[id number] 17:18:00* Test Item Value Reference Range Comments [...] disease.COMPARISON: 07/08/17TECHNIQUE: Frontal view of the chest.LOCATION: [id number]:There is a dual-lumen tunneled left internal jugular [...] code=60A) 134 IU/L 73-393 CBC (INCLUDES AUTOMATED DIFFERENTIAL)*[id number] 05:33:00* Test Item Value Reference Range Comments [...] (test code=WRBCMOR) NORMAL GLUCOMETER GLUCOSE- LAB USE [id number] 05:02:00* Test Item Value Reference Range Comments GLUCOMETER (test code=GMG) 323 mg/dL 70-100 Meter ID: [id number]: [id number] [facility] CT ABDOMEN AND PELVIS WITHOUT CONTRAST 2017-07-28 22:50:53CT SCAN OF THE ABDOMEN AND PELVIS WITHOUT CONTRASTAfter-hours services performed 07/28/2017 at 2220 hoursLocation: [id number] HISTORY: Abdominal pain end-stage renal disease and leukocytosis.History of Crohn's disease.TECHNIQUE: Helical CT of the abdomen and pelvis was performed without IVcontrast without complication. Coronal and Sagittal reconstructions wereobtained. Up-to-date CT equipment, automatic exposure control, and radiationdose reduction techniques were utilize d.DLP: 417 mGY*cmComparison study CT scan abdomen 07/08/17FINDINGS:A central l ine is seen extending into the right atrium.The visualized lung bases are clear. No evidence of pleural effusion. Liveris normal in size without intrahepatic biliary dilatation or focal mass. Thegallbladder is surgically absent. The pancr eas, spleen, and adrenal glands arenormal. There is a horseshoe kidney normal v ariation positioned relatively lowin the abdomen. There is no evidence of hydr onephrosis, solid renal mass , orobstructing kidney stone. There is no evidence of pancreatic mass, atrophy,calcification. There is no abdominal free fluid or adenopathy.The bowel is unremarkable without wall thickening or dilatation. There is noevidence of appendicitis, diverticulitis, colitis or bowel obstructio n. Normalair-filled appendix is seen on coronal image 41 and axial image 55. The re is amild constipation.In the pelvis, there is no free fluid or adenopathy pre sent. The bladder andureters are normal. Uterus is unremarkable. The right ova ry is relatively prominent and may containa 2 cm follicular cyst within it. It i s best seen on axial image 67. Leftadnexa is unremarkable. There is no obvious a bscess. No free air.The vascular, bony and muscular structures are unremarkable. IMPRESSION:1. Mild constipation. Otherwise the bowel is unremarkable. No eviden ce ofCrohn's flare.2. Right ovary mildly prominent with a possible 2 cm cyst wit hin it. Pelvicultrasound recommended.GLUCOMETER GLUCOSE- LAB USE [id number] 21:34:00* Test Item Value Reference Range Comments GLUCOMETER (test code=GMG) 222 mg/dL 70-100 Meter ID: [id number]: 5760 ASHIA HOLT CBC (INCLUDES AUTOMATED DIFFERENTIAL)*[id number] 21:33:00* Test Item Value Reference Range Comments [...] (test code=WRBCMOR) NORMAL PRO TIME AND PTT 2017-07-28 20:19:00* Test Item Value Reference Range Comments [...] code=48A) 2.4 mg/dL 1.8-2.4 CBC (INCLUDES AUTOMATED DIFFERENTIAL)*[id number] 19:56:00* Test Item Value Reference Range Comments [...] Chest 1 view and Abdomen 2 viewsLocation code:[id number]: Abdominal pain .COMPARISON: None availableCOMMENT: A left subclavian line is noted with tip in the right atrium. Thesingle view of the chest shows no confluent interstitial opacities, pleuraleffusions or pneumothorax. The heart size and pulmonary vasculature are normal. The abdominal radiographs show a normal bowel gas pattern. There is nopneumoperitoneum, pneumatosis, or mass effect. There are no radiopaqueden sities noted projecting in the right upper or lower abdominal quadrants,region o f the kidneys or path of ureters. There are no clinically significantosseous abn ormalities noted. IMPRESSION: 1. Unremarkable abdominal series. COMPREHENSIVE [...] code=60A) 128 IU/L 73-393 CBC (INCLUDES AUTOMATED DIFFERENTIAL)*[id number] 11:05:00* Test Item Value Reference Range Comments [...] code=WRBCMOR) NORMAL DIRECT INFLUENZA A AND B [id number] 10:28:00* Test Item Value Reference Range Comments Direct Exam (test code=DE3) PRESUMPTIVE NEGATIVE FOR THE PRESENCE OF INFLUENZA ANTIGEN CT ABDOMEN AND PELVIS WITHOUT CONTRAST *WW*2017-07-08 22:29:47LOCATION: [id number]: 26-year-old female who presents with abdominal pain. The patient has ahistory of ESRD.COMMENT: After-hours service at 10:[address] imaging of this patient's abdomen and pelvis was obtained without IVcontrast. Coronal and sagittal soft tissue reconstructions were included. Mjycf7Uhg or more of the following dose reduction techniques are used: Automatedexposure control, a djustment of the mA and/or kV according the patient size,and/or utilization of i terative reconstruction technique.DLP: 421.47 mGy-cmCONTRAST: NoneFINDINGS:The l lamar bases are clear and the cardiac silhouette is unremarkable.The liver, spleen , pancreas, and adrenal glands are unremarkable. A horseshoekidney is seen in th e upper pelvis.Cholecystectomy clips are present.The upper intestinal tract and the small intestine are unremarkable. Theappendix is unremarkable.Scattered feca l residue seen throughout the colon suggestive of constipation.The colon otherwi se is unremarkable.No ascites or adenopathy is present.In the pelvis the urinary bladder is empty. The uterus is unremarkable. Theovaries are not clearly seen.T he vascular anatomy is unremarkable.The musculoskeletal anatomy is unremarkable. IMPRESSION:No acute findings are seen in this patient's abdomen or pelvis on thi sunenhanced CT study.Colonic constipation is suspected. SERUM MONOCLONAL 2017-07-08 22:00:00* Test Item Value Reference Range Comments PREG SRM (test code=PGS) NEGATIVE NEGATIVE LIVER PROFILE 2017-07-08 21:42:00* Test Item Value Reference Range Comments [...] code=09D) 9.0 mg/dL 8.3-9.5 CBC (INCLUDES AUTOMATED DIFFERENTIAL)*[id number] 20:22:00* Test Item Value Reference Range Comments [...] XR CHEST 1 VIEW PORTABLE *WW*2017-07-08 20:07:14LOCATION: [id number]: 26-year-old female with end-stage renal disease.COMMENT: A frontal chest radiograph was obtained at the bedside at 6:53 p.m., and wasverified for review on PACS at 8:02 p.m.The lungs are clear and well-aerated. The cardiac silhouette, art, andmediastinum are within normal limits. The skeleton is intact, and thesurrounding soft tissues are unremarkable. A left-sided tunneled IJ dialysis catheter is present.IMPRESSION:Unremarkable portable examination of the chest.US TRANSVAGINAL [place] [address] Patient Name: DEMETRI CROSS MR #: [id number] : 1990 Age/Sex: 27/F Req #: [id number] Adm Physician: Ordered by: MARAL MURO MD Report #: [id number] Location: ER Room/Bed: Procedure: [id number] US/US TRANSVAGINAL Exam Da te: Exam Time: REPORT STATUS: Signed EXAM: US TRANSVAGINAL INDICATION: S LEFT CYSTIC LESION ON CT COMPARISON: None TECHNIQUE: Grayscale transverse and sagittal transabdominal and transvaginal images were obtained of the pelvis. Transvaginal images were necessary to better assess anatomic detail. The ovaries were examined with grayscale, color Doppler, and spectral waveform analysis. FINDINGS: Uterus Orientation: Normal Size: 7.3 x 3.4 x 4.8 cm, anteverted Mass: None Cervix : Normal Endometrium: Thickness: 0.17 cm, Normal. Appearance: Homoge neous echotexture without focal thickening. Right ovary: Size: 2.0 x 1.4 x 1.5 cm Mass/Cyst: None Left ovary: Size: 7.2 x 4.5 x 3.8 cm Mass/ Cyst: Two left ovarian lesions. One is hypoechoic, avascular hypoechoic with increased through transmission measuring 4.5 x 3.0 x 3.3 cm, favor a hemorrhag ic cyst. The other simple appearing, cystic measuring 3.1 x 3.2 x 3.6 cm. Cul-de-sac: No free fluid IMPRESSION: Two left ovarian lesions, one of which may reflect a hemorrhagic cyst (4.5 cm) and the other which is a simple cyst. Recommend 6-8 week follow up to document resolution. Signed by: Dr Chyna Jones MD on 12/19/2017 2:19 AM Dictated By: CHYNA JONES MD 8 Transcribed By: MASOUD on 12/19/17218 COPY TO: MARAL MURO MD CT ABDOMEN/PELVIS [place] [address] Patient Name: DEMETRI CROSS MR #: [id number] : 1990 Age/Sex: 27/F Req #: [id number] Adm Physician: Ordered by: MARAL MURO MD Report #: [id number] Location: ER Room/Bed: Procedure: [id number] CT/CT ABDOMEN/PELVIS WO Ex am Date: Exam Time: REPORT STATUS: Signed EXAM: CT ABDOMEN/PELVIS WO DATE: 12/18/2017 10:01 PM INDICATION: S N/V/ABD PAIN, GASTROPARESIS S Y COMPARISON: 09/19/2017 TECHNIQUE: The abdomen and p haroon were scanned using a multidetector helical scanner. Coronal and sagittal reformations were obtained. Routine protocol performed. IV Contrast: None ml Isovue 300/370 FINDINGS: Lack of IV contrast decreases sensitivity in e valuating abdominal and pelvic organs. LOWER THORAX: No consolidations. Smal l hiatal hernia. LIVER/BILIARY: No masses. No ductal dilatation. GAL LBLADDER: Surgically absent. SPLEEN: Unremarkable PANCREAS: Unremarkable ADRENALS: No nodules KIDNEYS/BLADDER: Fused pelvic kidney. High density in t he region of the medullary pyramids/papilla was not seen on prior and may refl ect dilute contrast given high density fluid/presumed contrast in the bladder. Unchanged mild diffuse bladder wall thickening. No hydronephrosis. GI TR ACT: No wall thickening or evidence of obstruction. Normal appendix. VESSEL S: Unremarkable PERITONEUM/RETROPERITONEUM: No free air or fluid LYMPH NODES : No lymphadenopathy REPRODUCTIVE ORGANS: There is a left adnexal 4.6 x 7 c m structure (attenuation more complex than simple fluid) or two adjacent cysti c structures. SOFT TISSUES: Unremarkable BONES: No suspicious bone lesio ns. IMPRESSION: 1. No acute abnormality in noncontrast evaluation. 2. F used pelvic kidney. 3. Left adnexal complex cystic lesion. Recommend follow u p pelvic ultrasound. Signed by: Dr Chyna Jones MD on 12/18/2017 11:50 PM Dictated By: CHYNA JONES MD 49 Transcribed By: MASOUD on 12/18/172349 COPY TO: MARAL MURO MD ABDOMEN ACUTE SERIES W/PA CXR [place] [address] Patient Name: DEMETRI CROSS MR #: [id number] : 1990 Age/Sex: 27/F Req #: [id number] Adm Physician: Ordered by: MARAL MURO MD Report #: [id number] Location: ER Room/Bed: Procedure: [id number] DX/ABDOMEN ACUTE SERIES W/P A CXR Exam Date: 12/18/17 Exam Time: 2139 REPO RT STATUS: Signed ABDOMEN ACUTE SERIES W/PA CXR Clinical history: S ESR D ON HD N/V/HTN S [id number] S 2139 Technique: AP supine and upright views of the abdomen Comparison: 11/02/2017 Findings: Abdomen: No dilated loops o f small or large bowel. Moderate stool burden is present. No free air. Cholecy stectomy clips. Other: Right port tip over the distal SVC. Unremarkable car diomediastinal silhouette, lungs, and pleural spaces for technique. Impre ssion: 1. Nonobstructive bowel gas pattern with moderate stool burden. acut e thoracic abnormality. Signed by: Dr Chyna Jones MD on 12/18/2017 10:0 4 PM Dictated By: CHYNA JONES MD 03 Transcribed By: MASOUD on 12/18/172203 COPY TO: MARAL MURO MD CHEST SINGLE (PORTABLE) [place] [address] Patient Name: DEMETRI CROSS MR #: [id number] : 1990 Age/Sex: 27/F Req #: [id number] Adm Physician: Ordered by: SCOTT JEROME REGIONAL DIRECTOR Report #: [id number] Location: ER Room/Bed: Procedure: [id number] DX/CHEST SINGLE (PORTABL E) Exam Date: 11/02/17 Exam Time: 2044 REPORT STATUS: Signed CHEST SINGLE (PORTABLE), 11/02/2017 7:47 PM Technique: JENNIFER ST SINGLE (PORTABLE) Comparison: 08/01/2017 Clinical history: Nausea, vomitin g end-stage renal disease Findings: Heart/mediastinum: Normal for techniq ue. Lungs/pleural spaces: No consolidation or edema. No effusion or pneumothor ax. Impression: 1. Lines/Tubes: None 2. No acute abnormality. Sign ed by: Dr Chyna Jones MD on 11/02/2017 9:21 PM Dictated By: CHYNA JACOBS MD 20 Transcri bed By: MASOUD on 11/02/172120 COPY TO: SCOTT JEROME REGIONAL DIRECTOR CT ABDOMEN/PELVIS WO [place] [address] Patient Name: DEMETRI CROSS MR #: [id number] : 1990 Age/Sex: 27/F Req #: [id number] Adm Physician: JESSI WESLEY MD Ordered by: RJ BECKFORD, SELINA BECKFORD Report #: [id number] Location: [facility] Room/Bed: [place] [address] Procedure: [id number] CT/CT ABDOMEN/PELVIS WO Exam Date: 09/19/17 Exam Fede e: 1620 REPORT STATUS: Signed EXAM: CT Abdomen and Pelvis WITHOUT contr ast INDICATION: Nausea, vomiting, abdominal pain COMPARISON: CT abdomen an d pelvis on 07/15/2017 and KUB from 09/13/2014 TECHNIQUE: Abdomen and pelvis we re scanned utilizing a multidetector helical scanner from the lung base to the pubic symphysis without administration of IV contrast. Absence of intravenous contrast decreases sensitivity for detection of focal lesions and vascular pa thology. Coronal and sagittal reformations were obtained. Routine protocol was performed. IV CONTRAST: None. ORAL CONTRAST: Gastr ografin RADIATION DOSE: Total DLP: 176.4 mGy*cm Est imated effective dose: (DLP x 0.015 x size factor) mSv COMPLICATIO NS: None FINDINGS: LINES and TUBES: Partially visualized left IJ hemod ialysis catheter with tip in the mid right ventricle. Consider retraction. LOWER THORAX: Unremarkable HEPATOBILIARY: No focal hepatic lesions. No biliary ductal dilation. GALLBLADDER: Cholecystectomy, unchanged. SPLEEN: No splenomegaly. PANCREAS: No focal masses or ductal dilatation. ADRENALS: No adrenal nodules KIDNEYS/URETERS: Stable fusion abno rmality of the kidneys located transversely at the abdominopelvic junction. No hydronephrosis. No cystic or solid mass lesions. No stones. GI TRACT: Mild circumferential wall thickening of the stomach. Positive contrast present on in the stomach and proximal small bowel. No abnormal distention, wall thi ckening, or evidence of bowel obstruction. Appendix is normal. PELV IC ORGANS/BLADDER: Circumferential wall thickening of the urinary bladder may be overestimated by poor distention. LYMPH NODES: No lymphadenopathy. VESSELS: Unremarkable. PERITONEUM / RETROPERITONEUM: No free air or fluid. BONES: Unremarkable. SOFT TISSUES: Unremarkable. IMPR ESSION: Mild circumferential wall thickening of a mildly distending stomach m ay be due to inflammation. Recommend GI consultation. Otherwise, no inter roosevelt change when compared to 09/15/2016. Signed by: Dr. Sherry Lara M.D. on 09/19/2017 5:19 PM Dictated By: SHERRY MUÑOZ MD Bria ctronically Signed By: SHERRY MUÑOZ MD on 09/19/171718 Transcribed By: MASOUD on 09/19/171718 COPY TO: SELINA DE LA ROSA CHEST SINGLE (PORTABLE) [place] [address] Patient Name: DEMETRI CROSS MR #: [id number] : 1990 Age/Sex: 26/F Req #: [id number] Adm Physician: Ordered by: FEI COLLINS MD Report #: [id number] Location: ER Room/Bed: Procedure: [id number] DX/CHEST SINGLE (PORTABLE ) Exam Date: 08/01/17 Exam Time: 0955 REPORT S TATUS: Signed EXAM: CHEST SINGLE (PORTABLE) DATE: 08/01/2017 7:48 AM INDICATION: Short of breath COMPARISON: None FINDINGS: Left IJ dial ysis catheter present with tip overlying right atrium. Heart not enlarged. The re is no pneumothorax or focal consolidation. IMPRESSION: No acute findi ngs. Signed by: Dr. Adama Boucher MD on 08/01/2017 10:10 AM Dictated By: ADAMA BOUCHER MD 1 010 Transcribed By: MASOUD on 08/01/17 1010 COPY TO: FEI COLLINS CT ABDOMEN/PELVIS WO [place] [address] Patient Name: DEMETRI CROSS MR #: [id number] : 1990 Age/Sex: 26/F Req #: [id number] Adm Physician: Ordered by: SCOTT JEROME REGIONAL DIRECTOR Report #: [id number] Location: ER Room/Bed: Procedure: [id number] CT/CT ABDOMEN/PELVIS WO Exam Date: 07/15/17 Exam Time: 1420 REPORT STA TUS: Signed PROCEDURE: CT ABDOMEN AND PELVIS WITHOUT CONTRAST TECHNIQUE : The abdomen and pelvis were scanned utilizing a multidetector helical sc kin from the diaphragm to the lesser trochanter. No IV contrast was adminis tered as per physician request. Coronal and sagittal multiplanar reformation s were obtained. COMPARISON: None. INDICATIONS: NAUSEA, VOMITING, DI ARRHEA FINDINGS: ABSENCE OF INTRAVENOUS CONTRAST DECREASES SENSITIVITY FO R DETECTION OF FOCAL LESIONS AND VASCULAR PATHOLOGY. Examination of the ab domen limited due to a paucity of mesenteric fat. LOWER THORAX: Normal. Pa rtially visualized central venous catheter with the tip positioned within the right atrium. HEPATOBILIARY: No focal hepatic lesions. No biliary ductal dilatation. Cholecystectomy. SPLEEN: No splenomegaly. PANCREAS: No focal masses or ductal dilatation. ADRENALS: No adrenal nodules. KIDNEYS/URET ERS: No interval change in appearance of the horseshoe kidney in the lower mi dabdomen. No hydronephrosis, stones, or solid mass lesions. PELVIC ORGANS/B LADDER: Unremarkable. PERITONEUM / RETROPERITONEUM: No free air or fluid. LYMPH NODES: No lymphadenopathy. VESSELS: Unremarkable. GI TRACT: No d istention or wall thickening. Normal appendix. Moderate amount of retained fe kathi in the transluminal evaluation of the colon. BONES AND SOFT TISSUES: U nremarkable. IMPRESSION: No acute abnormality of the abdomen and pel vis. Dictated by: Lupillo Gomez M.D. on 07/15/2017 at 15:02 Electr onically approved by: Lupillo Gomez M.D. on 07/15/2017 at 15:02 Dictated By: LUPILLO GOMEZ MD 1502 COPY TO: BOWEN JEROME NP CHEST SINGLE (PORTABLE) [place] [address] Patient Name: DEMETRI CROSS MR #: [id number] : 1990 Age/Sex: 26/F Req #: [id number] Adm Physician: COOKIE GUTHRIE MD Ordered by: TANIA SANITZO MD Report #: [id number] Location: [facility] Room/Bed: [place] [address] Procedure: [id number] DX/CHEST SINGLE (PORTABLE) Exam Date: Exam T chun: REPORT STATUS: Signed PROCEDURE: CHEST SINGLE (PORTABLE) TECH NIQUE: Portable AP chest INDICATION: Diabetic; weakness and vomiting COM [place]: [facility], DX, CHEST 2 VIEWS, 04/06/2016, 14:37. FINDINGS: Left internal jugular dialysis catheter tips at the left brachi ocephalic vein and high SVC. Interval removal of a right internal jugular por t catheter relative to March 2016. Lungs are clear and symmetrically i nflated. No pleural effusions. Upper limits of normal heart size for techniqu e. Intact skeleton. CONCLUSION: 1. No acute abnormality. 2. Left i nternal jugular tunnel dialysis catheter tips are suboptimally positioned. Pl ease correlate with dialysis flow rates. Dictated by: Adri Johnson M.D. on 04/23/2017 at 8:37 Electronically approved by: Adri Johnson M.D. on 04/23/2017 at 8:37 Dictated By: ADRI CRYSTAL MD 6 Transcrib ed By: RAYNE on 04/23/17836 COPY TO: TANIA SANTIZO MD CT ABDOMEN/PELVIS W [place] [address] Patient Name: DEMETRI CROSS MR #: [id number] : 1990 Age/Sex: 26/F Req #: [id number] Adm Physician: Ordered by: FEI LANDRY MD Report #: [id number] Location: ER Room/Bed: Procedure: [id number] CT/CT ABDOMEN/PELVIS Pratik pandya Date: 04/22/17 Exam Time: 1505 REPORT STATUS: Signed PROCEDURE: CT ABDOMEN AND PELVIS WITH CONTRAST TECHNIQUE: The abdomen and pelvis were scanned utilizing a multidetector helical scanner f rom the diaphragm to the lesser trochanter after the IV administration of 100 cc of Isovue 370 and the oral administration of water. Coronal and sagittal multiplanar reformations were obtained. COMPARISON: [facility], CT, CT ABDOMEN/PELVIS W, 08/28/2014, 11:55. INDICATIONS: CROHN'S D ISEASE FINDINGS: LOWER THORAX: Unremarkable. HEPATOBILIARY: No foc al hepatic lesions. No biliary ductal dilatation. Cholecystectomy clips. S PLEEN: Borderline splenomegaly, measuring 12.7 cm in AP diameter. PANCREAS: No focal masses or ductal dilatation. ADRENALS: No adrenal nodules. KIDNEY S/URETERS: Single horseshoe kidney is again identified in the lower abdomen/u pper pelvis. No hydronephrosis, stones, or obstruction. No solid enhancing ma sses. PELVIC ORGANS/BLADDER: Bladder is moderately to markedly distended, w ith high density fluid. No focal lesions. Uterus shows mild amount of fluid i n the endometrial cavity. PERITONEUM / RETROPERITONEUM: Small amount of fl uid surrounding the medial aspect of the horseshoe kidney (series 2 image 50. LYMPH NODES: Mildly prominent aortocaval node measuring 3.9-1.0 cm in meryl rt axis (series 2, image 31). No intra-abdominal, retroperitoneal or common p elvic or inguinal enlarged nodes. VESSELS: Unremarkable. GI TRACT: No eric wel dilation or obstruction. Large amount of stool in the colon suggesting co nstipation. No wall thickening or pericolonic inflammatory changes. BON ES AND SOFT TISSUES: No acute bony abnormalities. Mild generalized soft tissu e edema IMPRESSION: 1. large amount of retained stool in the colon, suggesting constipation. No bowel dilation or evidence of obstruction. No wal l thickening or surrounding inflammatory changes to suggest active Crohn's disease. 2. Small amount of fluid surrounding the medial aspect of the kidney. This may represent physiologic fluid. Correlate with patient's menstrual history. No definite CT evidence of pyelonephritis. 3. Bladder is moderately to markedly distended, with high density contents. This may represent a excre tion of contrast, however, correlation with urinalysis is recommended to excl ude hematuria. Raimundo Cerda M.D. Dictated by: Raimundo hewitt M.D. on 04/22/2017 at 16:21 Electronically approved by: Raimundo Cerda M.D. on 04/22/2017 at 16:21 Dictated By: RAIMUNDO HYLTON MD Transcribe d By: RAYNE on 04/22/171 COPY TO: FEI LANDRY MD
[2018-06-12] MEDS ORDERED: HALOPERIDOL LACTATE 5 MG/ML VIAL IM PRN (14:15)
[2018-06-12] MEDS ORDERED: PROMETHAZINE 25MG/ NS 50ML (IV) IV ONE (14:15)
[2018-06-12] MEDS ORDERED: SODIUM CHLORIDE 0.9% 250ML 250 ML IV ONE (14:15)
[2018-06-12] MEDS ORDERED: LABETALOL HCL 5 MG/ML 20ML VIAL IV STA ×3 (14:32→17:51)
[2018-06-12] MEDS ORDERED: HYDRALAZINE HCL 25 MG TAB PO ONE (14:45)
[2018-06-12] MEDS ORDERED: HYDRALAZINE HCL 20 MG/ML VIAL IV ONE (15:00)
[2018-06-12] MEDS ORDERED: PROMETHAZINE 12.5MG/ NACL 0.9% 12.5 MG/50 ML BAG IV ONE (15:15)
[2018-06-12] MEDS ORDERED: CLONIDINE HCL 0.2 MG/24 HR 1 EA PATCH TOP ONE (16:30)
[2018-06-12] MEDS ORDERED: SODIUM CHLORIDE FLUSH 10 ML SYR INJ PRN (16:30)
[2018-06-12] MEDS: MORPHINE SULFATE 2 MG/ML SYR IV PRN ×2 (16:58→21:23)
[2018-06-12] MEDS: PROMETHAZINE HCL (IM) 25 MG/ML VIAL IV PRN ×2 (16:59→21:24)
[2018-06-12] MEDS ORDERED: HYDRALAZINE HCL 20 MG/ML VIAL IV PRN (18:00)
[2018-06-12] MEDS ORDERED: PROMETHAZINE HCL 25 MG TAB PO PRN (18:15)
[2018-06-12] MEDS ORDERED: ALPRAZOLAM 0.5 MG TAB PO PRN (18:15)
[2018-06-12] MEDS ORDERED: DEXTROSE 50% SYRINGE 50 ML IV PRN (18:15)
[2018-06-12] MEDS ORDERED: PROMETHAZINE HCL 25 MG SUPP PR PRN (18:15)
[2018-06-12] MEDS ORDERED: METRONIDAZOLE 500 MG TAB PO SCH (19:30)
[2018-06-12 20:30] VITALS: BP 203/111
[2018-06-12] MEDS: INSULIN REGULAR, HUMAN 100 UNIT/1 ML 3ML VIAL SQ SCH (21:00)
[2018-06-12] MEDS: HYDRALAZINE HCL 25 MG TAB PO SCH (22:00)
[2018-06-12] MEDS: GABAPENTIN 100 MG CAP PO SCH (22:00)
[2018-06-13] VITALS (8 sets, daily range): BP systolic 92–117; BP diastolic 54–72
[2018-06-13] MEDS: MORPHINE SULFATE 2 MG/ML SYR IV PRN ×2 (05:26→11:28)
[2018-06-13] MEDS ORDERED: LOSARTAN POTAS100 MG PO (05:32)
[2018-06-13 05:42] LABS: BASOPHILS # (AUTO) 0.1 (0.0-0.1); BASOPHILS % 0.6 % (0.0-1.0); EOSINOPHILS # (AUTO) 0.2 (0.0-0.4); EOSINOPHILS % 1.9 % (0.0-6.0); HEMATOCRIT 29.7 % (34.2-44.1); HEMOGLOBIN 9.1 g/dL (12.0-16.0); LYMPHOCYTES # (AUTO) 2.3 (1.0-3.2); LYMPHOCYTES % 29.5 % (18.0-39.1); MEAN CORPUSCULAR HEMOGLOBIN 28.6 pg (28-32); MEAN CORPUSCULAR HGB CONC 30.6 g/dL (31-35); MEAN CORPUSCULAR VOLUME 93.4 fL (81-99); MONOCYTES # (AUTO) 0.6 (0.2-0.8); MONOCYTES % 7.5 % (4.4-11.3); NEUTROPHILS # (AUTO) 4.6 (2.1-6.9); PLATELET COUNT 275 x10e3/uL (140-360); RED BLOOD COUNT 3.18 x10e6/uL (3.6-5.1); RED CELL DISTRIBUTION WIDTH 15.6 % (11.7-14.4)
[2018-06-13] MEDS: HYDRALAZINE HCL 25 MG TAB PO SCH ×3 (06:00→22:00)
[2018-06-13] MEDS: GABAPENTIN 100 MG CAP PO SCH ×3 (06:00→22:00)
[2018-06-13 06:02] LABS: ALBUMIN 3.4 g/dL (3.5-5.0); ALBUMIN/GLOBULIN RATIO 0.9 (0.8-2.0); ANION GAP 20.5 mmol/L (8-16); CALCIUM 10.8 mg/dL (8.4-10.2); CREATININE, SERUM 5.54 mg/dL (0.57-1.11); POTASSIUM 4.5 mmol/L (3.5-5.1)
[2018-06-13] MEDS: INSULIN REGULAR, HUMAN 100 UNIT/1 ML 3ML VIAL SQ SCH ×4 (08:00→21:00)
[2018-06-13] MEDS: FAMOTIDINE 20 MG TAB PO SCH (09:00)
--- NOTE | 2018-06-13 11:13 | Consultation ---
DATE OF CONSULTATION: June 13, 2018 HISTORY OF PRESENT ILLNESS: Ms. Charito Gonzalez is a 27-year-old female who is very familiar to me. Has underlying history of end-stage renal disease secondary to type-1 diabetes and diabetic kidney disease with neuropathy, retinopathy and gastroparesis. Presented with abdominal pain, nausea and vomiting as well as pain, which mostly involves the abdomen and lower extremities. She is on a Wednesday, , Wednesday dialysis schedule. She has a Port-A-Cath as well as a left upper arm AV fistula. ALLERGIES: SHE HAS SEVERAL ALLERGIES TO ACETAMINOPHEN, KETOROLAC, METOCLOPRAMIDE, ONDANSETRON, TIZANIDINE. SOCIAL HISTORY: She does not smoke or drink. PAST MEDICAL HISTORY: Significant for solitary kidney, underlying glomerulonephritis, end-stage renal disease, type-1 diabetes, hypertension, peripheral neuropathy. CURRENT MEDICATIONS 1. Alprazolam p.r.n. 2. Clonidine p.r.n. 3. Famotidine 20 mg daily. 4. Neurontin 100 mg p.o. q.8. 5. Haloperidol p.r.n. 6. Hydralazine 25 mg p.o. q.8. 7. Labetalol p.r.n. 8. Flagyl 500 mg post DI. 9. Promethazine p.r.n. 10. Regular insulin p.r.n. 11. Morphine sulfate p.r.n. For dose schedule, please see MAR. FAMILY HISTORY: Significant for diabetes and hypertension. PHYSICAL EXAMINATION GENERAL: Awake, alert, lying supine. VITALS: Blood pressure 109/57. Pulse 87. Oxygen saturation 100% on room air. HEAD AND NECK: Corneas clear. Oral mucosa is moist. LUNGS: Decreased air entry at bases but clear. No rales. HEART: S1, S2 audible. ABDOMEN: Soft, nontender. LOWER EXTREMITIES: No edema. LABS: White count 7.7, hemoglobin 9.1. Potassium 4.5, bicarbonate 29, creatinine 5.54, calcium 10.8 with AST and ALT normal. Total bilirubin normal. Total protein 7.2. IMPRESSION AND PLAN: Hypercalcemia, etiology unclear. Will obtain intact PTH level. Arrange for dialysis. Blood pressure control. Renal diet. Fluid restriction. No acute indications for dialysis at this point in time. Please see orders. Discussed with RN. SELINA DE LA ROSA MD Job#: [id number]
[2018-06-13] MEDS ORDERED: HYDROMORPHONE 1MG/1ML INJ IV PRN (11:45)
[2018-06-13] MEDS: HYDROMORPHONE 2MG/ML 2 MG/ML ML IV PRN ×3 (15:15→23:43)
[2018-06-13] MEDS ORDERED: ALPRAZOLAM 1 MG TAB PO PRN (18:45)
[2018-06-13] MEDS ORDERED: PANTOPRAZOLE 40 MG 10ML VIAL IV STA (23:47)
[2018-06-14] VITALS (7 sets, daily range): BP systolic 103–160; BP diastolic 57–94
[2018-06-14] MEDS: HYDROMORPHONE 2MG/ML 2 MG/ML ML IV PRN ×5 (03:49→21:00)
[2018-06-14] MEDS: GABAPENTIN 100 MG CAP PO SCH ×3 (06:00→21:06)
[2018-06-14] MEDS: HYDRALAZINE HCL 25 MG TAB PO SCH ×3 (06:00→21:08)
[2018-06-14 06:35] LABS: ALBUMIN 3.4 g/dL (3.5-5.0); ALBUMIN/GLOBULIN RATIO 0.9 (0.8-2.0); ANION GAP 21.1 mmol/L (8-16); CALCIUM 10.9 mg/dL (8.4-10.2); CREATININE, SERUM 6.58 mg/dL (0.57-1.11); POTASSIUM 5.1 mmol/L (3.5-5.1)
[2018-06-14] MEDS: FAMOTIDINE 20 MG TAB PO SCH (09:09)
[2018-06-14] MEDS: PANTOPRAZOLE 40 MG 10ML VIAL IV SCH ×2 (09:09→21:04)
[2018-06-14] MEDS: INSULIN REGULAR, HUMAN 100 UNIT/1 ML 3ML VIAL SQ SCH ×4 (09:10→21:10)
[2018-06-15] VITALS: BP 174/90
[2018-06-15] MEDS: HYDROMORPHONE 2MG/ML 2 MG/ML ML IV PRN ×6 (01:00→21:50)
[2018-06-15] MEDS ORDERED: POLYETHYLENE GLYCOL 3350 17 GM PACK PO STA (03:10)
[2018-06-15] MEDS: GABAPENTIN 100 MG CAP PO SCH ×3 (05:03→21:27)
[2018-06-15] MEDS: HYDRALAZINE HCL 25 MG TAB PO SCH ×3 (05:03→21:26)
[2018-06-15 07:55] VITALS: BP 123/57
[2018-06-15] MEDS: POLYETHYLENE GLYCOL 3350 17 GM PACK PO SCH ×2 (08:50→16:35)
[2018-06-15] MEDS: INSULIN REGULAR, HUMAN 100 UNIT/1 ML 3ML VIAL SQ SCH ×4 (08:50→21:38)
[2018-06-15] MEDS: PANTOPRAZOLE 40 MG 10ML VIAL IV SCH ×2 (08:50→21:31)
[2018-06-15] MEDS: FAMOTIDINE 20 MG TAB PO SCH (08:50)
[2018-06-15 11:36] VITALS: BP 136/91
[2018-06-15 15:52] VITALS: BP 139/74
[2018-06-15 20:00] VITALS: BP 152/87
[2018-06-15 20:26] VITALS: BP 136/74
[2018-06-16] VITALS: BP 161/91
[2018-06-16 04:00] VITALS: BP 131/79
[2018-06-16] MEDS: GABAPENTIN 100 MG CAP PO SCH ×3 (05:11→21:38)
[2018-06-16] MEDS: HYDRALAZINE HCL 25 MG TAB PO SCH ×3 (05:11→21:38)
[2018-06-16] MEDS: HYDROMORPHONE 2MG/ML 2 MG/ML ML IV PRN ×6 (06:30→21:37)
[2018-06-16 06:51] LABS: BASOPHILS % 0.4 % (0.0-1.0); EOSINOPHILS # (AUTO) 0.3 (0.0-0.4); EOSINOPHILS % 6.5 % (0.0-6.0); HEMATOCRIT 29.5 % (34.2-44.1); HEMOGLOBIN 9.2 g/dL (12.0-16.0); LYMPHOCYTES # (AUTO) 1.5 (1.0-3.2); LYMPHOCYTES % 33.2 % (18.0-39.1); MEAN CORPUSCULAR HGB CONC 31.2 g/dL (31-35); MEAN CORPUSCULAR VOLUME 93.1 fL (81-99); MONOCYTES # (AUTO) 0.4 (0.2-0.8); MONOCYTES % 9.5 % (4.4-11.3); NEUTROPHILS # (AUTO) 2.3 (2.1-6.9); NEUTROPHILS % 49.8 % (38.7-80.0); PLATELET COUNT 216 x10e3/uL (140-360); RED BLOOD COUNT 3.17 x10e6/uL (3.6-5.1); RED CELL DISTRIBUTION WIDTH 16.2 % (11.7-14.4)
[2018-06-16 07:07] LABS: ALBUMIN 3.5 g/dL (3.5-5.0); ALBUMIN/GLOBULIN RATIO 0.9 (0.8-2.0); ALKALINE PHOSPHATASE 67 IU/L (40-150); ANION GAP 17.8 mmol/L (8-16); BLOOD UREA NITROGEN 39 mg/dL (7-26); BUN/CREATININE RATIO 7 (6-25); CALCIUM 10.9 mg/dL (8.4-10.2); CARBON DIOXIDE 32 mmol/L (22-29); CHLORIDE 89 mmol/L (98-107); CREATININE, SERUM 5.45 mg/dL (0.57-1.11); EST GLOMERULAR FILTRATION RATE 11 ML/MIN (60-); GLUCOSE 181 mg/dL (74-118); POTASSIUM 4.8 mmol/L (3.5-5.1); SODIUM 134 mmol/L (136-145)
[2018-06-16 07:18] LABS: ALANINE AMINOTRANSFERASE < 6 IU/L (0-55)
[2018-06-16 07:55] VITALS: BP 188/92
[2018-06-16] MEDS: FAMOTIDINE 20 MG TAB PO SCH (08:40)
[2018-06-16] MEDS: INSULIN REGULAR, HUMAN 100 UNIT/1 ML 3ML VIAL SQ SCH ×4 (08:40→21:37)
[2018-06-16] MEDS: PANTOPRAZOLE 40 MG 10ML VIAL IV SCH ×2 (08:40→21:37)
[2018-06-16] MEDS: POLYETHYLENE GLYCOL 3350 17 GM PACK PO SCH ×2 (08:40→16:02)
[2018-06-16] MEDS ORDERED: SODIUM CHLORIDE 0.9% 1000ML 1,000 ML ONE (08:53)
[2018-06-16 11:35] VITALS: BP 151/92
[2018-06-16 15:27] VITALS: BP 128/64
[2018-06-16] MEDS ORDERED: SODIUM CHLORIDE 0.9% 250ML 250 ML ONE (16:41)
[2018-06-16] MEDS ORDERED: SODIUM CHLORIDE 0.9% 50ML 50 ML ONE (16:47)
[2018-06-16] MEDS: PROMETHAZINE HCL (IM) 25 MG/ML VIAL IV PRN (16:50)
[2018-06-16 20:00] VITALS: BP 102/56
[2018-06-17] VITALS (7 sets, daily range): BP systolic 102–134; BP diastolic 56–83
[2018-06-17] MEDS: HYDROMORPHONE 2MG/ML 2 MG/ML ML IV PRN ×4 (01:38→12:47)
[2018-06-17] MEDS: HYDRALAZINE HCL 25 MG TAB PO SCH ×2 (05:03→14:00)
[2018-06-17] MEDS: GABAPENTIN 100 MG CAP PO SCH ×2 (05:42→14:00)
[2018-06-17] MEDS ORDERED: BISACODYL 10 MG SUPP PR ONE (08:00)
[2018-06-17] MEDS: PANTOPRAZOLE 40 MG 10ML VIAL IV SCH (09:25)
[2018-06-17] MEDS: POLYETHYLENE GLYCOL 3350 17 GM PACK PO SCH ×2 (09:25→17:00)
[2018-06-17] MEDS: FAMOTIDINE 20 MG TAB PO SCH (09:25)
[2018-06-17] MEDS: INSULIN REGULAR, HUMAN 100 UNIT/1 ML 3ML VIAL SQ SCH ×3 (09:26→16:30)
== END 2018-06-17 17:43 ==
LOC: FSED 13:14 → ERHOLD 16:29 → IMCU 18:49
DX: E10.43 Type 1 diabetes mellitus with diabetic autonomic (poly)neuropathy (principal); K31.84 Gastroparesis; I12.0 Hypertensive chronic kidney disease with stage 5 chronic kidney disease or end stage renal disease; N18.6 End stage renal disease; Z99.2 Dependence on renal dialysis; K50.90 Crohn's disease, unspecified, without complications; E10.42 Type 1 diabetes mellitus with diabetic polyneuropathy; E10.319 Type 1 diabetes mellitus with unspecified diabetic retinopathy without macular edema; Z79.4 Long term (current) use of insulin; E10.22 Type 1 diabetes mellitus with diabetic chronic kidney disease; E83.52 Hypercalcemia; K59.00 Constipation, unspecified; R11.2 Nausea with vomiting, unspecified; Z88.6 Allergy status to analgesic agent; Z88.8 Allergy status to other drugs, medicaments and biological substances
CPT/HCPCS: 36415 ×6; 80048; 80053 ×4; 82948 ×6; 83970; 85025 ×3; 86704; 86705; 86706; 87340; 90935; 96372; 96376 ×2; 97110 ×2; 97139; 97162; 97530; 99284; G0378 ×6; G8978; G8979; J0360 ×2; J1170 ×5; J1642; J1817; J2270 ×2; J2550 ×2; J3490; J7030; J7050 ×2; 90962; 96374

== ENCOUNTER 2018-06-19 14:44 | Emergency (ER) | payer MEDICARE ==
[~2018-06-19] VITALS: Ht 157.5 cm; Wt 49.0 kg
[~2018-06-19 14:44] MED LIST changes: +LOSARTAN POTAS100 MG PO
--- OUTSIDE RECORDS SUMMARY | 2018-06-19 14:48 | XMS REPORT | Clinical Summary ---
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 Name Role Phone Asked, No Pcp PCP Unavailable Allergies Comments Active Allergy Reactions Severity Noted Date Metronidazole GI 01/16/2016 Intolerance Kidney shutdown Lisinopril Other (See 01/16/2016 Comments) Stroke like symptom according to pt Metoclopramide Hcl Other (See 01/16/2016 Comments) PATIENT STATES THROAT CLOSES UP AND SHE CAN'T BREATH WHEN SHE EATS OR HAVE SHELLFISH Shellfish Derived Anaphylaxis High 02/09/2018 Ketorolac Itching 01/16/2016 numbness Tizanidine Other (See 01/16/2016 Comments) Ondansetron GI 01/16/2016 Intolerance Medications End Date Status Medication Sig Dispensed Refills Start Date Active clonIDINE (CATAPRES-TTS) Place 1 patch 0 0.3 mg/24 hr on the skin once a week. Note: Every Wednesday Active insulin detemir U-100 Inject 30 0 (LEVEMIR) 100 unit/mL Units under injection the skin 2 (two) times a day. Active insulin lispro (HumaLOG) Inject 10 0 100 unit/mL injection Units under the skin 3 (three) times a day. 04/07/2019 Active gabapentin (NEURONTIN) Take 1 90 capsule 0 100 mg capsule capsule (100 8 mg total) by mouth 3 (three) times a day. 04/07/2019 Active NIFEdipine XL (PROCARDIA Take 1 tablet 60 tablet 0 XL) 60 MG 24 hr tablet (60 mg total) 8 by mouth 2 (two) times a day. 04/07/2019 Active sennosides-docusate Take 1 tablet 30 tablet 0 sodium (SENOKOT-S) 8.6-50 by mouth 2 8 mg per tablet (two) times a day as needed for constipation. Active pantoprazole (PROTONIX) Take 1 tablet 30 tablet 0 40 MG EC tablet (40 mg total) 8 by mouth daily. 02/11/2018 Discontinued insulin lispro (HumaLOG) Inject 15 0 100 unit/mL injection Units under the skin 3 (three) times a day before meals. 03/30/2018 Discontinued hydrALAZINE (APRESOLINE) Take 25 mg by 0 25 MG tablet mouth 4 7 (four) times a day. 06/22/2017 Discontinued ALPRAZolam (XANAX) 0.5 MG Take 0.5 mg 0 tablet by mouth nightly as needed for anxiety. 06/22/2017 Discontinued ARIPiprazole (ABILIFY) 5 Take 5 mg by 0 MG tablet mouth daily. 06/22/2017 Discontinued zolpidem (AMBIEN) 5 MG Take 10 mg by 0 tablet mouth nightly 7 as needed for sleep. 06/22/2017 Discontinued promethazine (PHENERGAN) Take 25 mg by 0 25 MG tablet mouth every 6 (six) hours as needed for nausea or vomiting. 02/11/2018 Discontinued clonIDINE (CATAPRES-TTS) Place 1 patch 0 0.3 mg/24 hr on the skin once a week. Every 03/30/2018 Discontinued insulin detemir (LEVEMIR) Inject 30 0 100 unit/mL injection Units under the skin 2 (two) times a day. 07/24/2017 labetalol (NORMODYNE) 200 Take 1 tablet 180 tablet 1 MG tablet (200 mg 7 total) by mouth 2 (two) times a day for 30 days. 08/31/2017 methylPREDNISolone follow 21 tablet 0 (MEDROL DOSEPAK) 4 mg package 8 tablet directions 03/13/2018 carvedilol (COREG) 3.125 Take 1 tablet 60 tablet 0 MG tablet (3.125 mg 8 total) by mouth 2 (two) times a day for 30 days. 03/14/2018 famotidine (PEPCID) 20 MG Take 1 tablet 30 tablet 0 tablet (20 mg total) 8 by mouth daily for 30 days. 02/21/2018 fluconazole (DIFLUCAN) Take 1 tablet 10 tablet 0 150 MG tablet (150 mg 8 total) by mouth daily for 10 doses. 03/13/[address] 1 patch 4 patch 0 ([id number]) 0.2 (0.2 mg 8 mg/24 hr total) on the skin once a week for 30 days. 02/11/2018 Discontinued hydrALAZINE (APRESOLINE) Take 1 tablet 90 tablet 0 50 MG tablet (50 mg total) 8 by mouth every 8 (eight) hours for 30 days. 03/30/2018 Discontinued insulin lispro (HumaLOG) Inject 10 0 100 unit/mL injection Units under the skin 3 (three) times a day before meals. 04/01/[address] 0.3 0 patches on the skin once a week. Every Wednesday04/01/2018 Discontinued labetalol (NORMODYNE) 300 Take 1 tablet 90 tablet 0 MG tablet (300 mg 8 total) by mouth 3 (three) times a day. 04/01/2018 Discontinued hydrALAZINE (APRESOLINE) Take 1 tablet 120 tablet 0 50 MG tablet (50 mg total) 8 by mouth 4 (four) times a day. 04/01/2018 Discontinued sevelamer (RENVELA) 800 Take 3 270 tablet 0 mg tablet tablets 8 (2,400 mg total) by mouth 3 (three) times a day with meals. 04/01/2018 Discontinued insulin GLARGINE (LANTUS) Inject 10 10 mL 0 100 unit/mL injection Units under 8 (vial) the skin 2 (two) times a day. 04/01/2018 Discontinued insulin lispro (HumaLOG) Inject 0-7 10 mL 0 100 unit/mL injection Units under 8 the skin 3 (three) times a day with meals. 04/01/2018 Discontinued bisacodyl (DULCOLAX) 5 mg Take 2 30 tablet 0 EC tablet tablets (10 8 mg total) by mouth daily as needed for constipation for up to 2 days. 04/01/2018 Discontinued polyethylene glycol Take 17 g by 30 packet 0 (MIRALAX) 17 gram packet mouth daily 8 for 30 days. 04/01/2018 Discontinued bisacodyl (DULCOLAX) 10 Insert 1 30 0 mg suppository suppository suppository 8 (10 mg total) into the rectum daily as needed for constipation for up to 30 days. 04/01/2018 Discontinued B complex-vitamin C-folic Take 1 tablet 30 tablet 0 acid (FOLBEE PLUS 5 MG) 5 by mouth 8 mg tablet per tablet daily. 04/01/2018 Discontinued thiamine 50 MG tablet Take 1 tablet 30 tablet 0 (50 mg total) 8 by mouth daily. 04/01/2018 Discontinued promethazine (PHENERGAN) Take 1 tablet 30 tablet 0 12.5 MG tablet (12.5 mg 8 total) by mouth every 6 (six) hours as needed for nausea or vomiting for up to 30 days. 04/07/2018 Discontinued hydrALAZINE (APRESOLINE) Take 50 mg by 0 50 MG tablet mouth 3 (three) times a day. 04/17/2018 promethazine (PHENERGAN) Take 1 tablet 30 tablet 0 12.5 MG tablet (12.5 mg 8 total) by mouth every 6 (six) hours as needed for nausea or vomiting for up to 10 days. 05/07/2018 hydrALAZINE (APRESOLINE) Take 1 tablet 120 tablet 0 50 MG tablet (50 mg total) 8 by mouth every 6 (six) hours for 30 days. Active Problems Problem Noted Date Gastroparesis due to DM 04/01/2018 Accelerated hypertension 02/09/2018 Pain of upper abdomen 02/09/2018 Overview: Added automatically from request for surgery [id number] Hyperglycemia 06/22/2017 High anion gap metabolic acidosis [...] 09/17/2014 Essential hypertension 05/12/2008 Overview: Overview: ICD-10 Encounters Care Team Description Date Type Specialty Doris Jones III, MD Patel, Bhagwat Purushottam, MD Abdominal pain, unspecified abdominal location (Primary Dx); Intractable vomiting with nausea, unspecified vomiting type; Dehydration 04/01/2018 [facility] General Internal Medicine - Encounter 04/07/2018 Marcia Westfall MD Weakness (Primary Dx); Gastroparesis 03/19/2018 [facility] General Internal Medicine - Encounter 03/30/2018 Chava Guillen CRNA 02/11/2018 Anesthesia Gastroenterology Event za, Akash Teixeira MD COLONOSCOPY WITH BIOPSY 02/11/2018 Surgery Gastroenterology Tona Wiseman MD Pain of upper abdomen (Primary Dx) 02/09/2018 [facility] General Internal Medicine - Encounter 02/11/2018 Eloina Vargas 02/09/2018 Orders Only Desk Lieutenant MantDebbie coughlin, DO Muscle spasm (Primary Dx) 01/21/2018 Emergency Emergency Medicine Marcia Westfall MD Gastroparesis (Primary Dx) 12/03/2017 [facility] General Internal Medicine Encounter Debbie Lundberg, DO Allergic reaction, initial encounter (Primary Dx) 08/26/2017 Emergency Emergency Medicine Itzel Appiah MD Patel, Bhagwat Purushottam, MD Hyperglycemia (Primary Dx) 06/22/2017 [facility] General Internal Medicine - Encounter 06/24/2017 after 06/18/2017 Immunizations Name Dates Previously Given Next Due FLUCELVAX QUAD PF (0.5mL 03/30/2018, 04/07/2017 syringe) Family History Medical History Relation Name Comments Diabetes Father Hypertension Father Kidney disease Father Diabetes Mother Hypertension Mother Kidney disease Mother Relation Name Status Comments Father Mother Social History Date Tobacco Use Types Packs/Day Years Used Never Smoker Smokeless Tobacco: Never Used Alcohol Use Drinks/Week oz/Week Comments No Sex Assigned at Date Recorded Not on file Industry Job Start Date Occupation Not on file Not on file Not on file Travel End Travel History Travel Start No recent travel history available. Last Filed Vital Signs Time Taken Vital Sign Reading 04/07/2018 11:30 AM CDT Blood Pressure 153/91 04/07/2018 11:30 AM CDT Pulse 100 04/07/2018 11:30 AM CDT Temperature 35.9 C (96.6 F) 04/07/2018 11:30 AM CDT Respiratory Rate 18 04/07/2018 1:37 PM CDT Oxygen Saturation 95% - Inhaled Oxygen - Concentration 04/07/2018 6:00 AM CDT Weight 56.2 kg (123 lb 14.4 oz) 04/01/2018 4:07 AM CDT Height 157.5 cm (5' 2") 04/07/2018 6:00 AM CDT Body Mass Index 22.66 Plan of Treatment Health Maintenance Due Date Last Done Comments DIABETIC RETINAL EYE EXAM 1991 DIABETIC FOOT EXAM 2001 URINE MICROALBUMIN 2001 HEPATITIS B VACCINES (1 2010 of 3 - Risk 3-dose series) CERVICAL CANCER SCREENING 2012 INFLUENZA VACCINE Completed 03/30/2018, 04/07/2017 IPV VACCINES Aged Out No longer eligible based on patient's age to complete this topic MENINGOCOCCAL VACCINE Aged Out No longer eligible based on patient's age to complete this topic Procedures Comments Procedure Name Priority Date/Time Associated Diagnosis POC GLUCOSE Routine 04/07/2018 11:20 AM CDT HEPATITIS B SURFACE AB, Routine 04/07/2018 QUANTITATIVE 8:46 AM CDT POC GLUCOSE Routine 04/07/2018 7:57 AM CDT HEPATITIS B SURFACE Routine 04/07/2018 ANTIBODY 7:45 AM CDT MANUAL DIFFERENTIAL Routine 04/07/2018 4:15 AM CDT ESTIMATED GFR Routine 04/07/2018 4:15 AM CDT PHOSPHORUS LEVEL Routine 04/07/2018 4:15 AM CDT COMPREHENSIVE METABOLIC Routine 04/07/2018 PANEL 4:15 AM CDT CBC WITH PLATELET AND Routine 04/07/2018 DIFFERENTIAL 4:15 AM CDT POC GLUCOSE Routine 04/06/2018 9:06 PM CDT POC GLUCOSE Routine 04/06/2018 4:33 PM CDT POC GLUCOSE Routine 04/06/2018 11:56 AM CDT BLOOD CULTURE, AEROBIC & Routine 04/06/2018 ANAEROBIC 9:35 AM CDT BLOOD CULTURE, AEROBIC & Routine 04/06/2018 ANAEROBIC 9:05 AM CDT POC GLUCOSE Routine 04/06/2018 8:22 AM CDT HEMODIALYSIS Routine 04/06/2018 7:34 AM CDT MANUAL DIFFERENTIAL Routine 04/06/2018 4:50 AM CDT ESTIMATED GFR Routine 04/06/2018 4:50 AM CDT CBC WITH PLATELET AND Routine 04/06/2018 DIFFERENTIAL 4:50 AM CDT BASIC METABOLIC PANEL Routine 04/06/2018 4:50 AM CDT POC GLUCOSE Routine 04/05/2018 8:53 PM CDT POC GLUCOSE Routine 04/05/2018 4:56 PM CDT POC GLUCOSE Routine 04/05/2018 11:09 AM CDT POC GLUCOSE Routine 04/05/2018 7:43 AM CDT MANUAL DIFFERENTIAL Routine 04/05/2018 4:45 AM CDT ESTIMATED GFR Routine 04/05/2018 4:45 AM CDT PHOSPHORUS LEVEL Routine 04/05/2018 4:45 AM CDT COMPREHENSIVE METABOLIC Routine 04/05/2018 PANEL 4:45 AM CDT CBC WITH PLATELET AND Routine 04/05/2018 DIFFERENTIAL 4:45 AM CDT POC GLUCOSE Routine 04/04/2018 10:07 PM CDT POC GLUCOSE Routine 04/04/2018 5:14 PM CDT POC GLUCOSE Routine 04/04/2018 3:53 PM CDT POC GLUCOSE Routine 04/04/2018 11:30 AM CDT HEMODIALYSIS Routine 04/04/2018 7:34 AM CDT POC GLUCOSE Routine 04/04/2018 7:32 AM CDT POC GLUCOSE Routine 04/03/2018 9:51 PM CDT POC GLUCOSE Routine 04/03/2018 9:12 PM CDT POC GLUCOSE Routine 04/03/2018 5:11 PM CDT POC GLUCOSE Routine 04/03/2018 11:40 AM CDT POC GLUCOSE Routine 04/03/2018 7:10 AM CDT POC GLUCOSE Routine 04/02/2018 8:40 PM CDT POC GLUCOSE Routine 04/02/2018 4:28 PM CDT POC GLUCOSE Routine 04/02/2018 1:13 PM CDT POC GLUCOSE Routine 04/02/2018 11:46 AM CDT ESTIMATED GFR Routine 04/02/2018 4:00 AM CDT PHOSPHORUS LEVEL Routine 04/02/2018 4:00 AM CDT HC COMPLETE BLD COUNT Routine 04/02/2018 W/AUTO DIFF 4:00 AM CDT BASIC METABOLIC PANEL Routine 04/02/2018 4:00 AM CDT POC GLUCOSE Routine 04/01/2018 9:30 PM CDT HEMODIALYSIS Routine 04/01/2018 8:20 PM CDT POC GLUCOSE Routine 04/01/2018 6:19 PM CDT POC GLUCOSE Routine 04/01/2018 9:30 AM CDT LACTIC ACID LEVEL, SEPSIS Timed 04/01/2018 - NOW AND REPEAT 2X EVERY 7:40 AM CDT 3 HOURS ESTIMATED GFR STAT 04/01/2018 5:51 AM CDT COMPREHENSIVE METABOLIC STAT 04/01/2018 PANEL 5:51 AM CDT LIPASE LEVEL STAT 04/01/2018 4:42 AM CDT AMYLASE LEVEL STAT 04/01/2018 4:42 AM CDT LACTIC ACID LEVEL, SEPSIS STAT 04/01/2018 - NOW AND REPEAT 2X EVERY 4:42 AM CDT 3 HOURS HC COMPLETE BLD COUNT STAT 04/01/2018 W/AUTO DIFF 4:42 AM CDT BLOOD CULTURE, AEROBIC & Routine 04/01/2018 ANAEROBIC 4:42 AM CDT ECG ED PRELIMINARY Routine 04/01/2018 INTERPRETATION 4:16 AM CDT ECG 12-LEAD STAT 04/01/2018 4:10 AM CDT POC GLUCOSE Routine 03/30/2018 11:36 AM CDT POC GLUCOSE Routine 03/30/2018 7:50 AM CDT POC GLUCOSE Routine 03/29/2018 9:39 PM CDT POC GLUCOSE Routine 03/29/2018 5:00 PM CDT POC GLUCOSE Routine 03/29/2018 11:48 AM CDT HEMODIALYSIS Routine 03/29/2018 7:20 AM CDT ZZESTIMATED GFR Routine 03/29/2018 5:45 AM CDT PHOSPHORUS LEVEL Routine 03/29/2018 5:45 AM CDT COMPREHENSIVE METABOLIC Routine 03/29/2018 PANEL 5:45 AM CDT HC COMPLETE BLD COUNT Routine 03/29/2018 W/AUTO DIFF 5:45 AM CDT POC GLUCOSE Routine 03/28/2018 8:34 PM CDT POC GLUCOSE Routine 03/28/2018 4:33 PM CDT POC GLUCOSE Routine 03/28/2018 12:30 PM CDT POC GLUCOSE Routine 03/28/2018 8:01 AM CDT ZZESTIMATED GFR Routine 03/28/2018 6:10 AM CDT HC COMPLETE BLD COUNT Routine 03/28/2018 W/AUTO DIFF 6:10 AM CDT BASIC METABOLIC PANEL Routine 03/28/2018 6:10 AM CDT POC GLUCOSE Routine 03/27/2018 8:43 PM CDT POC GLUCOSE Routine 03/27/2018 4:59 PM CDT POC GLUCOSE Routine 03/27/2018 11:51 AM CDT POC GLUCOSE Routine 03/27/2018 7:46 AM CDT POC GLUCOSE Routine 03/26/2018 8:48 PM CDT POC GLUCOSE Routine 03/26/2018 5:42 PM CDT POC GLUCOSE Routine 03/26/2018 11:53 AM CDT POC GLUCOSE Routine 03/26/2018 7:37 AM CDT ZZESTIMATED GFR Routine 03/26/2018 6:30 AM CDT BASIC METABOLIC PANEL Routine 03/26/2018 6:30 AM CDT HC COMPLETE BLD COUNT Routine 03/26/2018 W/AUTO DIFF 6:30 AM CDT POC GLUCOSE Routine 03/25/2018 8:55 PM CDT ECG 12-LEAD Routine 03/25/2018 5:26 PM CDT POC GLUCOSE Routine 03/25/2018 4:06 PM CDT POC GLUCOSE Routine 03/25/2018 12:17 PM CDT POC GLUCOSE Routine 03/25/2018 7:40 AM CDT ZZESTIMATED GFR Routine 03/25/2018 7:00 AM CDT BASIC METABOLIC PANEL Routine 03/25/2018 7:00 AM CDT HC COMPLETE BLD COUNT Routine 03/25/2018 W/AUTO DIFF 7:00 AM CDT HEMODIALYSIS Routine 03/25/2018 6:47 AM CDT POC GLUCOSE Routine 03/24/2018 9:49 PM CDT POC GLUCOSE Routine 03/24/2018 4:48 PM CDT IMMUNOGLOBULIN A Routine 03/24/2018 1:10 PM CDT POC GLUCOSE Routine 03/24/2018 11:32 AM CDT HEPATITIS B SURFACE Routine 03/24/2018 ANTIGEN 7:30 AM CDT HEMODIALYSIS Routine 03/24/2018 7:28 AM CDT ZZESTIMATED GFR Routine 03/24/2018 5:50 AM CDT COMPREHENSIVE METABOLIC Routine 03/24/2018 PANEL 5:50 AM CDT PHOSPHORUS LEVEL Routine 03/24/2018 5:50 AM CDT HC COMPLETE BLD COUNT Routine 03/24/2018 W/AUTO DIFF 5:50 AM CDT POC GLUCOSE Routine 03/23/2018 9:20 PM CDT TRANSFUSE RED BLOOD CELLS Routine 03/23/2018 5:34 PM CDT POC GLUCOSE Routine 03/23/2018 4:39 PM CDT COPPER LEVEL, SERUM Routine 03/23/2018 2:28 PM CDT POC GLUCOSE Routine 03/23/2018 11:22 AM CDT IR LUMBAR PUNCTURE Routine 03/23/2018 9:53 AM CDT OLIGOCLONAL BANDING, CSF Routine 03/23/2018 9:45 AM CDT ANGIOTENSIN CONVERTING Routine 03/23/2018 ENZYME, CSF 9:45 AM CDT [place] VIRUS ANTIBODY Routine 03/23/2018 PANEL, CSF 9:45 AM CDT [place] VIRUS BY PCR, Routine 03/23/2018 CSF 9:45 AM CDT VDRL, CSF SCREEN Routine 03/23/2018 9:45 AM CDT IGG SYNTHESIS RATE STUDY Routine 03/23/2018 9:45 AM CDT GLUCOSE LEVEL, CSF Routine 03/23/2018 9:45 AM CDT CSF CELL COUNT WITH Routine 03/23/2018 DIFFERENTIAL 9:45 AM CDT GRAM STAIN Routine 03/23/2018 9:45 AM CDT CRYPTOCOCCAL ANTIGEN Routine 03/23/2018 SCREEN 9:45 AM CDT AFB CULTURE Routine 03/23/2018 9:45 AM CDT CSF CULTURE Routine 03/23/2018 9:45 AM CDT MRI CERVICAL SPINE WO Routine 03/23/2018 CONTRAST 8:55 AM CDT MRI BRAIN WO CONTRAST Routine 03/23/2018 8:34 AM CDT POC GLUCOSE Routine 03/23/2018 7:53 AM CDT POC GLUCOSE Routine 03/22/2018 9:30 PM CDT POC GLUCOSE Routine 03/22/2018 5:49 PM CDT SYPHILIS TREPONEMAL IGG Routine 03/22/2018 5:30 PM CDT RAPID HIV 1 & 2 Routine 03/22/2018 5:30 PM CDT PHOSPHORUS LEVEL Routine 03/22/2018 5:30 PM CDT MAGNESIUM LEVEL Routine 03/22/2018 5:30 PM CDT HEAVY METALS PANEL 3, Routine 03/22/2018 BLOOD 5:30 PM CDT HEMOGLOBIN A1C Routine 03/22/2018 5:30 PM CDT LIPID PANEL Routine 03/22/2018 5:30 PM CDT THYROID STIMULATING Routine 03/22/2018 HORMONE 5:30 PM CDT VITAMIN B1 LEVEL, WHOLE STAT 03/22/2018 BLOOD 5:30 PM CDT VITAMIN B12 LEVEL Routine 03/22/2018 5:30 PM CDT PARTIAL THROMBOPLASTIN Routine 03/22/2018 TIME (PTT) 5:30 PM CDT PROTHROMBIN TIME WITH INR Routine 03/22/2018 5:[address] LUMBAR SPINE WO Routine 03/22/2018 CONTRAST 4:41 PM CDT POC GLUCOSE Routine 03/22/2018 11:35 AM CDT HEMODIALYSIS Routine 03/22/2018 9:44 AM CDT HEPATITIS B SURFACE Routine 03/22/2018 ANTIBODY 7:25 AM CDT ZZESTIMATED GFR Routine 03/22/2018 5:40 AM CDT BASIC METABOLIC PANEL Routine 03/22/2018 5:40 AM CDT HC COMPLETE BLD COUNT Routine 03/22/2018 W/AUTO DIFF 5:40 AM CDT TROPONIN Timed 03/21/2018 9:40 PM CDT POC GLUCOSE Routine 03/21/2018 8:15 PM CDT POC GLUCOSE Routine 03/21/2018 4:20 PM CDT MYOGLOBIN Routine 03/21/2018 3:12 PM CDT TROPONIN Timed 03/21/2018 3:12 PM CDT ECG 12-LEAD STAT 03/21/2018 3:07 PM CDT POC GLUCOSE Routine 03/21/2018 11:39 AM CDT POC GLUCOSE Routine 03/21/2018 8:12 AM CDT ZZESTIMATED GFR Routine 03/21/2018 5:45 AM CDT BASIC METABOLIC PANEL Routine 03/21/2018 5:45 AM CDT HC COMPLETE BLD COUNT Routine 03/21/2018 W/AUTO DIFF 5:45 AM CDT POC GLUCOSE Routine 03/20/2018 9:27 PM CDT POC GLUCOSE Routine 03/20/2018 4:32 PM CDT POC GLUCOSE Routine 03/20/2018 11:51 AM CDT POC GLUCOSE Routine 03/20/2018 8:24 AM CDT ZZESTIMATED GFR Routine 03/20/2018 4:55 AM CDT COMPREHENSIVE METABOLIC Routine 03/20/2018 PANEL 4:55 AM CDT HC COMPLETE BLD COUNT Routine 03/20/2018 W/AUTO DIFF 4:55 AM CDT BLOOD CULTURE, AEROBIC & Routine 03/20/2018 ANAEROBIC 4:55 AM CDT POC GLUCOSE Routine 02/11/2018 12:37 PM CDT POC GLUCOSE Routine 02/11/2018 11:59 AM CDT POC GLUCOSE Routine 02/11/2018 11:20 AM CDT SURGICAL PATHOLOGY Routine 02/11/2018 REQUEST 10:26 AM CDT POC GLUCOSE Routine 02/11/2018 9:35 AM CDT POC GLUCOSE Routine 02/11/2018 8:28 AM CDT ZZESTIMATED GFR STAT 02/11/2018 8:20 AM CDT BASIC METABOLIC PANEL STAT 02/11/2018 8:20 AM CDT EGD WITH BIOPSY 02/11/2018 Pain of upper abdomen 8:00 AM CDT COLONOSCOPY WITH BIOPSY 02/11/2018 Pain of upper abdomen 8:00 AM CDT POC GLUCOSE Routine 02/11/2018 4:28 AM CDT POC GLUCOSE Routine 02/10/2018 11:52 PM CDT POC GLUCOSE Routine 02/10/2018 8:26 PM CDT HEMODIALYSIS Routine 02/10/2018 4:54 PM CDT HEPATITIS B SURFACE AB, Routine 02/10/2018 QUANTITATIVE 2:55 PM CDT HEPATITIS B SURFACE Routine 02/10/2018 ANTIGEN 2:55 PM CDT POC GLUCOSE Routine 02/10/2018 12:48 PM CDT POC GLUCOSE Routine 02/10/2018 7:43 AM CDT ZZESTIMATED GFR Routine 02/10/2018 3:45 AM CDT PROTHROMBIN TIME WITH INR Routine 02/10/2018 3:45 AM CDT PHOSPHORUS LEVEL Routine 02/10/2018 3:45 AM CDT MAGNESIUM LEVEL Routine 02/10/2018 3:45 AM CDT IONIZED CALCIUM Routine 02/10/2018 3:45 AM CDT COMPREHENSIVE METABOLIC Routine 02/10/2018 PANEL 3:45 AM CDT HC COMPLETE BLD COUNT Routine 02/10/2018 W/AUTO DIFF 3:45 AM CDT POC GLUCOSE Routine 02/09/2018 9:33 PM CDT POC GLUCOSE Routine 02/09/2018 7:35 PM CDT POC GLUCOSE Routine 02/09/2018 5:41 PM CDT POC GLUCOSE Routine 02/09/2018 4:18 PM CDT ECHOCARDIOGRAM 2D Routine 02/09/2018 COMPLETE W MMODE SPECTRAL 3:10 PM CDT COLOR DOPPLER (59351) HCG QUALITATIVE, SERUM Routine 02/09/2018 SCREEN 2:50 PM CDT BETA HYDROXYBUTYRATE Routine 02/09/2018 2:50 PM CDT POC GLUCOSE Routine 02/09/2018 11:47 AM CDT LIPID PANEL Routine 02/09/2018 7:15 AM CDT HEMOGLOBIN A1C Routine 02/09/2018 7:15 AM CDT ZZESTIMATED GFR STAT 02/09/2018 7:15 AM CDT IONIZED CALCIUM STAT 02/09/2018 7:15 AM CDT TROPONIN STAT 02/09/2018 7:15 AM CDT PHOSPHORUS LEVEL STAT 02/09/2018 7:15 AM CDT MAGNESIUM LEVEL STAT 02/09/2018 7:15 AM CDT CREATINE KINASE, TOTAL STAT 02/09/2018 (CPK) 7:15 AM CDT COMPREHENSIVE METABOLIC STAT 02/09/2018 PANEL 7:15 AM CDT HC COMPLETE BLD COUNT STAT 02/09/2018 W/AUTO DIFF 7:15 AM CDT POC GLUCOSE Routine 02/09/2018 6:52 AM CDT POC GLUCOSE Routine 02/09/2018 4:[address] MAXILLOFACIAL WO STAT 01/21/2018 CONTRAST 4:22 PM CDT ZZESTIMATED GFR STAT 01/21/2018 4:05 PM CDT COMPREHENSIVE METABOLIC STAT 01/21/2018 PANEL 4:05 PM CDT HC COMPLETE BLD COUNT STAT 01/21/2018 W/AUTO DIFF 4:05 PM CDT POC GLUCOSE Routine 12/03/2017 11:31 AM CDT POC GLUCOSE Routine 12/03/2017 9:47 AM CDT POC GLUCOSE Routine 12/03/2017 7:22 AM CDT ZZESTIMATED GFR Routine 12/03/2017 5:43 AM CDT COMPREHENSIVE METABOLIC Routine 12/03/2017 PANEL 5:43 AM CDT HC COMPLETE BLD COUNT Routine 12/03/2017 W/AUTO DIFF 5:43 AM CDT POC GLUCOSE Routine 12/03/2017 2:51 AM CDT BLOOD CULTURE, AEROBIC & Routine 12/03/2017 ANAEROBIC 1:30 AM CDT BLOOD CULTURE, AEROBIC & Routine 12/03/2017 ANAEROBIC 1:[address] ABD/PELVIC EXTERNAL Routine 11/22/2017 STUDY 8:19 PM CDT ECG ED PRELIMINARY Routine 06/26/2017 INTERPRETATION 1:11 PM BEE RAISER TX CRITICAL CARE, E/M Routine 06/26/2017 30-74 MINUTES 1:11 PM BEE RAISER POC GLUCOSE Routine 06/24/2017 8:33 PM BEE RAISER POC GLUCOSE Routine 06/24/2017 4:49 PM BEE RAISER POC GLUCOSE Routine 06/24/2017 12:12 PM BEE RAISER POC GLUCOSE Routine 06/24/2017 11:10 AM BEE RAISER POC GLUCOSE Routine 06/24/2017 10:06 AM BEE RAISER POC GLUCOSE Routine 06/24/2017 8:53 AM BEE RAISER HEPATITIS B SURFACE Routine 06/24/2017 ANTIBODY 8:14 AM BEE RAISER HEPATITIS B SURFACE Routine 06/24/2017 ANTIGEN 8:14 AM BEE RAISER POC GLUCOSE Routine 06/24/2017 7:04 AM BEE RAISER POC GLUCOSE Routine 06/24/2017 5:00 AM BEE RAISER ZZESTIMATED GFR Routine 06/24/2017 3:41 AM BEE RAISER MAGNESIUM LEVEL Routine 06/24/2017 3:41 AM BEE RAISER PROTHROMBIN TIME WITH INR Routine 06/24/2017 3:41 AM BEE RAISER HC COMPLETE BLD COUNT Routine 06/24/2017 W/AUTO DIFF 3:41 AM BEE RAISER BASIC METABOLIC PANEL Routine 06/24/2017 3:41 AM BEE RAISER POC GLUCOSE Routine 06/24/2017 3:07 AM BEE RAISER POC GLUCOSE Routine 06/24/2017 12:52 AM BEE RAISER POC GLUCOSE Routine 06/23/2017 11:09 PM BEE RAISER POC GLUCOSE Routine 06/23/2017 9:00 PM BEE RAISER POC GLUCOSE Routine 06/23/2017 7:08 PM BEE RAISER IR TUNNELED DIALYSIS Routine 06/23/2017 CATHETER 6:26 PM BEE RAISER REPLACEMENT/EXCHANGE POC GLUCOSE Routine 06/23/2017 4:52 PM BEE RAISER POC GLUCOSE Routine 06/23/2017 3:06 PM BEE RAISER POC GLUCOSE Routine 06/23/2017 12:28 PM BEE RAISER POC GLUCOSE Routine 06/23/2017 11:16 AM BEE RAISER POC GLUCOSE Routine 06/23/2017 8:57 AM BEE RAISER POC GLUCOSE Routine 06/23/2017 8:06 AM BEE RAISER POC GLUCOSE Routine 06/23/2017 7:20 AM BEE RAISER BLOOD CULTURE, AEROBIC & Routine 06/23/2017 ANAEROBIC 6:10 AM BEE RAISER POC GLUCOSE Routine 06/23/2017 6:03 AM BEE RAISER BLOOD CULTURE, AEROBIC & Routine 06/23/2017 ANAEROBIC 6:00 AM BEE RAISER POC GLUCOSE Routine 06/23/2017 5:03 AM BEE RAISER POC GLUCOSE Routine 06/23/2017 4:02 AM BEE RAISER ZZESTIMATED GFR Routine 06/23/2017 3:50 AM BEE RAISER PROTHROMBIN TIME WITH INR Routine 06/23/2017 3:50 AM BEE RAISER PHOSPHORUS LEVEL Routine 06/23/2017 3:50 AM BEE RAISER MAGNESIUM LEVEL Routine 06/23/2017 3:50 AM BEE RAISER IONIZED CALCIUM Routine 06/23/2017 3:50 AM BEE RAISER HC COMPLETE BLD COUNT Routine 06/23/2017 W/AUTO DIFF 3:50 AM BEE RAISER BASIC METABOLIC PANEL Routine 06/23/2017 3:50 AM BEE RAISER OSMOLALITY, SERUM Routine 06/23/2017 3:50 AM BEE RAISER POC GLUCOSE Routine 06/23/2017 2:59 AM BEE RAISER POC GLUCOSE Routine 06/23/2017 2:09 AM BEE RAISER POC GLUCOSE Routine 06/23/2017 1:37 AM BEE RAISER POC GLUCOSE Routine 06/23/2017 12:58 AM BEE RAISER ZZESTIMATED GFR Timed 06/23/2017 12:39 AM BEE RAISER BASIC METABOLIC PANEL Timed 06/23/2017 12:39 AM BEE RAISER POC GLUCOSE Routine 06/22/2017 11:56 PM BEE RAISER POC GLUCOSE Routine 06/22/2017 10:46 PM BEE RAISER ZZESTIMATED GFR Timed 06/22/2017 9:30 PM BEE RAISER BASIC METABOLIC PANEL Timed 06/22/2017 9:30 PM BEE RAISER POC GLUCOSE Routine 06/22/2017 9:29 PM BEE RAISER LACTIC ACID LEVEL Routine 06/22/2017 8:40 PM BEE RAISER POC GLUCOSE Routine 06/22/2017 8:34 PM BEE RAISER ARTERIAL BLOOD GAS STAT 06/22/2017 7:41 PM BEE RAISER POC GLUCOSE Routine 06/22/2017 7:35 PM BEE RAISER ZZESTIMATED GFR Timed 06/22/2017 6:20 PM BEE RAISER BASIC METABOLIC PANEL Timed 06/22/2017 6:20 PM BEE RAISER BEDSIDE GLUCOSE Routine 06/22/2017 6:19 PM BEE RAISER OSMOLALITY, SERUM STAT 06/22/2017 6:19 PM BEE RAISER BETA HYDROXYBUTYRATE STAT 06/22/2017 6:19 PM BEE RAISER POC GLUCOSE Routine 06/22/2017 6:11 PM BEE RAISER ZZESTIMATED GFR STAT 06/22/2017 5:47 PM BEE RAISER BASIC METABOLIC PANEL STAT 06/22/2017 5:47 PM BEE RAISER HEMOGLOBIN A1C STAT 06/22/2017 5:47 PM BEE RAISER TROPONIN Timed 06/22/2017 5:47 PM BEE RAISER POC GLUCOSE Routine 06/22/2017 5:08 PM BEE RAISER ECG 12-LEAD STAT 06/22/2017 3:53 PM BEE RAISER ZZESTIMATED GFR STAT 06/22/2017 3:45 PM BEE RAISER B NATRIURETIC PEPTIDE STAT 06/22/2017 3:45 PM BEE RAISER TROPONIN STAT 06/22/2017 3:45 PM BEE RAISER CREATINE KINASE, TOTAL STAT 06/22/2017 (CPK) 3:45 PM BEE RAISER COMPREHENSIVE METABOLIC STAT 06/22/2017 PANEL 3:45 PM BEE RAISER HC COMPLETE BLD COUNT STAT 06/22/2017 W/AUTO DIFF 3:45 PM BEE RAISER XR CHEST 1 VW PORTABLE STAT 06/22/2017 3:32 PM BEE RAISER after 06/18/2017 Results * POC glucose (04/07/2018 11:20 AM CDT) Only the most recent of 121 results within the time period is included. POC glucose 106 (H) 65 - 99 mg/dL [facility] DEPARTMENT OF Comment: PATHOLOGY AND RN Notified GENOMIC MEDICINE Meter ID: [id number] Ambulatory Analyst: Milan Mittal Performing Organization Address City/State/Zipcode Phone Number [place] [phone] [facility] [place] [address] PATHOLOGY AND GENOMIC MEDICINE * Hepatitis B surface Ab, quantitative (04/07/2018 8:46 AM CDT) Only the most recent of 2 results within the time period is included. Hepatitis B surface Ab >1000.00 IU/L [facility] Comment: The anti-HBs is greater than or [...] refer to MMWR July 07, 2013/Vol. 62(No. 10);08-06. Reference Interval: anti-HBs 9.99 IU/L or less ....... Negative 10.00 IU/L or greater .... Positive Results greater than 1,000.00 IU/L are reported as greater than 1,000.00 IU/L. This assay should not be used for blood donor screening, associated re-entry protocols, or for screening Human Cell, Tissues and Cellular and Tissue-Based Products (HCT/P). Performed by [facility], [address], [place] [id number] [email or web address], Blade Hoff MD - Lab. Director Specimen Serum Performing Organization Address City/[facility]/Zipcode Phone Number [facility] [address] [place] [address] * Hepatitis B surface antibody (04/07/2018 7:45 AM CDT) Only the most recent of 3 results within the time period is included. Hepatitis B surface Ab Reactive (A) Non-reactive [facility] DEPARTMENT OF PATHOLOGY AND GENOMIC MEDICINE Specimen Blood Performing Organization Address City/State/Zipcode Phone Number [facility] DEPARTMENT OF [address] [place] [id number] PATHOLOGY AND GENOMIC MEDICINE * Estimated GFR (04/07/2018 4:15 AM CDT) Only the most recent of 5 results within the time period is included. Estimated GFR 10 (A) mL/min/1.73 m2 [facility] DEPARTMENT OF Comment: PATHOLOGY AND [employer] GENOMIC MEDICINE rpretation G1 >=90 Normal or high G2 60-89Mildly decreased [id number] Mildly to moderately decreased [id number] Moderately to severely decreased G4 15-29Severely decreased G5 <15Kidney failure The eGFR was calculated using the Chronic Kidney Disease Epidemiology Collaboration (CKD-EPI) equation. Interpretation is based on recommendations of the National Kidney Foundation-Kidney Disease Outcomes Quality Initiative (NKF-KDOQI) published in 2014. Specimen Plasma specimen Performing Organization Address City/[facility]/[place] [address] PATHOLOGY AND GENOMIC MEDICINE * Manual differential (04/07/2018 4:15 AM CDT) Only the most recent of 3 results within the time period is included. Manual differential PERFORMED [facility] DEPARTMENT OF PATHOLOGY AND GENOMIC MEDICINE Neutrophils 81.0 (H) 39.0 - 69.0 % [facility] DEPARTMENT OF PATHOLOGY AND GENOMIC MEDICINE Lymphocytes 9.0 (L) 25.0 - 45.0 % [facility] DEPARTMENT OF PATHOLOGY AND GENOMIC MEDICINE Monocytes 9.0 0.0 - 10.0 % [facility] DEPARTMENT OF PATHOLOGY AND GENOMIC MEDICINE Eosinophils 2.0 0.0 - 5.0 % [facility] DEPARTMENT OF PATHOLOGY AND GENOMIC MEDICINE Basophils 0.0 0.0 - 1.0 % [facility] DEPARTMENT OF PATHOLOGY AND GENOMIC MEDICINE Platelet slide review Carmen adequate [facility] DEPARTMENT OF PATHOLOGY AND GENOMIC MEDICINE Anisocytosis Moderate [facility] DEPARTMENT OF PATHOLOGY AND GENOMIC MEDICINE Polychromasia Moderate [facility] DEPARTMENT OF PATHOLOGY AND GENOMIC MEDICINE Tear drop cells Occasional [facility] DEPARTMENT OF PATHOLOGY AND GENOMIC MEDICINE Ovalocytes Moderate [facility] DEPARTMENT OF PATHOLOGY AND GENOMIC MEDICINE [place] cells Moderate (A) [facility] DEPARTMENT OF PATHOLOGY AND GENOMIC MEDICINE Enlarged platelets Moderate (A) [facility] DEPARTMENT OF PATHOLOGY AND GENOMIC MEDICINE Giant platelets Occasional [facility] DEPARTMENT OF PATHOLOGY AND GENOMIC MEDICINE Performing Organization Address City/[facility] Hospital[facility] [place] [address] PATHOLOGY AND GENOMIC MEDICINE * CBC with platelet and differential (04/07/2018 4:15 AM CDT) Only the most recent of 20 results within the time period is included. WBC 6.7 4.5 - 11.0 k/uL [facility] DEPARTMENT OF PATHOLOGY AND GENOMIC MEDICINE RBC 2.95 (L) 4.20 - 5.50 m/uL [facility] DEPARTMENT OF PATHOLOGY AND GENOMIC MEDICINE HGB 8.7 (L) 12.0 - 16.0 g/dL [facility] DEPARTMENT OF PATHOLOGY AND GENOMIC MEDICINE HCT 27.8 (L) 37.0 - 47.0 % [facility] DEPARTMENT OF PATHOLOGY AND GENOMIC MEDICINE MCV 94.2 82.0 - 100.0 fL [facility] DEPARTMENT OF PATHOLOGY AND GENOMIC MEDICINE MCH 29.5 27.0 - 34.0 pg [facility] DEPARTMENT OF PATHOLOGY AND GENOMIC MEDICINE MCHC 31.3 31.0 - 37.0 g/dL [facility] DEPARTMENT OF PATHOLOGY AND GENOMIC MEDICINE RDW - SD 49.1 37.0 - 55.0 fL [facility] DEPARTMENT OF PATHOLOGY AND GENOMIC MEDICINE MPV 9.9 6.9 - 11.0 fL [facility] DEPARTMENT OF PATHOLOGY AND GENOMIC MEDICINE Platelet count 171 150 - 400 K/uL [facility] DEPARTMENT OF PATHOLOGY AND GENOMIC MEDICINE Nucleated RBC 0.00 /100 WBC [facility] DEPARTMENT OF PATHOLOGY AND GENOMIC MEDICINE Neutrophils 81.0 (H) 39.0 - 69.0 % [facility] DEPARTMENT OF PATHOLOGY AND GENOMIC MEDICINE Lymphocytes 9.0 (L) 25.0 - 45.0 % [facility] DEPARTMENT OF PATHOLOGY AND GENOMIC MEDICINE Monocytes 9.0 0.0 - 10.0 % [facility] DEPARTMENT OF PATHOLOGY AND GENOMIC MEDICINE Eosinophils 2.0 0.0 - 5.0 % [facility] DEPARTMENT OF PATHOLOGY AND GENOMIC MEDICINE Basophils 0.0 0.0 - 1.0 % [facility] DEPARTMENT OF PATHOLOGY AND GENOMIC MEDICINE Specimen Blood Performing Organization Address City/[facility] Hospital[facility] [place] [address] PATHOLOGY [facility] * Phosphorus level (04/07/2018 4:15 AM CDT) Only the most recent of 9 results within the time period is included. Phosphorus 3.7 2.4 - 4.5 mg/dL [facility] DEPARTMENT OF PATHOLOGY AND GENOMIC MEDICINE Specimen Plasma specimen Performing Organization Address City/[facility] Hospital[facility] [place] [address] PATHOLOGY [facility] * Comprehensive metabolic panel (04/07/2018 4:15 AM CDT) Only the most recent of 11 results within the time period is included. Sodium 138 135 - 148 mEq/L [facility] DEPARTMENT OF PATHOLOGY AND GENOMIC MEDICINE Potassium 3.9 3.5 - 5.0 mEq/L [facility] DEPARTMENT OF PATHOLOGY AND GENOMIC MEDICINE Chloride 104 98 - 112 mEq/L [facility] DEPARTMENT OF PATHOLOGY AND GENOMIC MEDICINE CO2 18 (L) 24 - 31 mEq/L [facility] DEPARTMENT OF PATHOLOGY AND GENOMIC MEDICINE Anion gap 16@ANIO (H) 7 - 15 mEq/L [facility] DEPARTMENT OF PATHOLOGY AND GENOMIC MEDICINE BUN 34 (H) 6 - 20 mg/dL [facility] DEPARTMENT OF PATHOLOGY AND GENOMIC MEDICINE Creatinine 5.94 (H) 0.50 - 0.90 mg/dL [facility] DEPARTMENT OF PATHOLOGY AND GENOMIC MEDICINE Glucose 104 (H) 65 - 99 mg/dL [facility] DEPARTMENT OF PATHOLOGY AND GENOMIC MEDICINE Calcium 8.8 8.3 - 10.2 mg/dL [facility] DEPARTMENT OF PATHOLOGY AND GENOMIC MEDICINE Protein 6.7 6.3 - 8.3 g/dL [facility] DEPARTMENT OF PATHOLOGY AND GENOMIC MEDICINE Albumin 3.4 (L) 3.5 - 5.0 g/dL [facility] DEPARTMENT OF PATHOLOGY AND GENOMIC MEDICINE A/G ratio 1.0 0.7 - 3.8 [facility] DEPARTMENT OF PATHOLOGY AND GENOMIC MEDICINE Alkaline phosphatase 80 35 - 104 U/L [facility] DEPARTMENT OF PATHOLOGY AND GENOMIC MEDICINE AST 10 10 - 35 U/L [facility] DEPARTMENT OF PATHOLOGY AND GENOMIC MEDICINE ALT 9 5 - 50 U/L [facility] DEPARTMENT OF PATHOLOGY AND GENOMIC MEDICINE Total bilirubin 0.3 0.2 - 1.2 mg/dL [facility] DEPARTMENT OF PATHOLOGY AND GENOMIC MEDICINE Specimen Plasma specimen Performing Organization Address City/[facility]/Zipcode Phone Number [facility] [address] [place] [address] PATHOLOGY AND GENOMIC MEDICINE * Blood culture, aerobic & anaerobic (04/06/2018 9:35 AM CDT) Only the most recent of 8 results within the time period is included. Blood culture isolate No growth after 5 days of [facility] DEPARTMENT OF incubation. PATHOLOGY AND Comment: GENOMIC MEDICINE Specimen Information Specimen Source: Blood Specimen Site: Line, port-a-cath Specimen Blood - Line, port-a-cath Performing Organization Address City/State/Zipcode Phone Number [facility] DEPARTMENT OF [address] [place] [address] PATHOLOGY AND GENOMIC MEDICINE * Basic metabolic panel (04/06/2018 4:50 AM CDT) Only the most recent of 14 results within the time period is included. Sodium 138 135 - 148 mEq/L [facility] DEPARTMENT OF PATHOLOGY AND GENOMIC MEDICINE Potassium 3.7 3.5 - 5.0 mEq/L [facility] DEPARTMENT OF PATHOLOGY AND GENOMIC MEDICINE Chloride 102 98 - 112 mEq/L [facility] DEPARTMENT OF PATHOLOGY AND GENOMIC MEDICINE CO2 23 (L) 24 - 31 mEq/L [facility] DEPARTMENT OF PATHOLOGY AND GENOMIC MEDICINE Anion gap 13@ANIO 7 - 15 mEq/L [facility] DEPARTMENT OF PATHOLOGY AND GENOMIC MEDICINE BUN 22 (H) 6 - 20 mg/dL [facility] DEPARTMENT OF PATHOLOGY AND GENOMIC MEDICINE Creatinine 4.74 (H) 0.50 - 0.90 mg/dL [facility] DEPARTMENT OF PATHOLOGY AND GENOMIC MEDICINE Glucose 164 (H) 65 - 99 mg/dL [facility] DEPARTMENT OF PATHOLOGY AND GENOMIC MEDICINE Calcium 8.5 8.3 - 10.2 mg/dL [facility] DEPARTMENT OF PATHOLOGY AND GENOMIC MEDICINE Specimen Plasma specimen Performing Organization Address City/[facility] Hospital[facility] [place] [address] PATHOLOGY AND [facility] * Lactic acid level, SEPSIS - Now and repeat 2x every 3 hours (04/01/2018 7:40 AM CDT) Only the most recent of 2 results within the time period is included. Lactic acid 0.7 0.5 - 2.2 mmol/L [facility] DEPARTMENT OF PATHOLOGY AND GENOMIC MEDICINE Specimen Plasma specimen Performing Organization Address City/[facility] Hospital[facility] [place] [address] PATHOLOGY AND [facility] * Lipase level (04/01/2018 4:42 AM CDT) Lipase 25 13 - 60 U/L [facility] DEPARTMENT OF PATHOLOGY AND GENOMIC MEDICINE Specimen Plasma specimen Performing Organization Address [facility] Hospitalcowv [place] [address] PATHOLOGY AND [facility] * Amylase level (04/01/2018 4:42 AM CDT) Amylase 29 13 - 73 U/L [facility] DEPARTMENT PATHOLOGY AND [facility] Specimen Plasma specimen Performing Organization Address City/[facility] Hospital[facility] [place] [address] [facility] * ECG ED Preliminary Interpretation - NOT AN ORDER (04/01/2018 4:16 AM CDT) Only the most recent of 2 results within the time period is included. Narrative Performed At Doris Jones III, MD 04/01/20182:51 PM ECG ED Preliminary Interpretation - Not an Order Performed by: DORIS JONES III Authorized by: DORIS JONES III ECG reviewed by ED Physician in the absence of a supplier quality engineer: yes Interpretation: Interpretation: abnormal Quality: Tracing quality:Limited by artifact Rate: ECG rate:122 ECG rate assessment: tachycardic Rhythm: Rhythm: sinus tachycardia Ectopy: Ectopy: none QRS: QRS axis:Normal QRS intervals:Normal Conduction: Conduction: normal ST segments: ST segments:Non-specific T waves: T waves: non-specific Other findings: Other findings: LVH * ECG 12 lead (04/01/2018 4:10 AM CDT) Only the most recent of 4 results within the time period is included. Ventricular rate 122 [facility] Atrial rate 122 [facility] TX interval 142 [facility] QRSD interval 80 [facility] QT interval 328 [facility] QTC interval 467 [facility] P axis 1 68 [facility] QRS axis 1 38 [facility] T wave axis 48 [facility] EKG impression Sinus tachycardia-Voltage [facility] criteria for left ventricular hypertrophy-Abnormal ECG-In automated comparison with ECG of 25-MAR-2018 17:26,-No significant change was found- Performing Organization Address City/State/Zipcode Phone Number [facility] [address] [place] [address] * Estimated GFR (03/29/2018 5:45 AM CDT) Only the most recent of 20 results within the time period is included. GFR Non Af Amer 6 (A) mL/min/1.73 m2 [facility] DEPARTMENT OF PATHOLOGY AND GENOMIC MEDICINE GFR Af Amer 7 (A) mL/min/1.73 m2 [facility] DEPARTMENT OF Comment: PATHOLOGY AND Chronic kidney disease: <60 GENOMIC MEDICINE mL/min/1.73m2 Kidney failure: <15 mL/min/1.73m2 The estimated GFR is calculated from the IDMS-traceable Modification of Diet in Renal Disease Equation. The accuracy of the calculation is poor when the creatinine is normal. Calculated values >90 mL/min/1.73m2 are not reported. This equation has not been validated in children (<18 years), women, the elderly (>70 years), or ethnic groups other than Caucasians and Americans. Specimen Plasma specimen Performing Organization Address City/State/Zipcode Phone Number [facility] [place] [address] [place] [address] PATHOLOGY AND [facility] MEDICINE * Immunoglobulin A (03/24/2018 1:10 PM CDT) IgA 248 70 - 400 mg/dL [facility] DEPARTMENT OF PATHOLOGY AND GENOMIC MEDICINE Specimen Plasma specimen Performing Organization Address City/[facility] Phone Number [facility] DEPARTMENT OF [address] [place] [address] PATHOLOGY AND [facility] * Hepatitis B surface antigen (03/24/2018 7:30 AM CDT) Only the most recent of 3 results within the time period is included. Hepatitis B surface Ag Non-reactive Non-reactive [facility] PATHOLOGY AND [facility] Specimen Blood Performing Organization Address [facility] Phone Number [facility] DEPART[facility] OF [address] [place] [address] PATHOLOGY [facility] * Transfuse RBC (03/23/2018 5:34 PM CDT) Only the most recent of 2 results within the time period is included. * Copper level, serum (03/23/2018 2:28 PM CDT) Copper 88 80 - 155 ug/dL [facility] Comment: INTERPRETIVE INFORMATION: Copper, Serum or Plasma Serum copper may be elevated with infection, inflammation, stress, and copper supplementation. In females, elevated copper may also be caused by oral contraceptives and (concentrations may be elevated up to 3 times normal during the third trimester). Serum copper may be reduced by use of corticosteroids and zinc and by malnutrition or malabsorption. See Compliance Statement B at [email or web address] Performed by [facility], [address] [place] [address] [email or web address], Blade Hoff MD - Lab. Director Specimen Blood Performing Organization Address [facility]code Phone Number [facility] [address] [place] [address] * IR Lumbar Puncture by Radiology (03/23/2018 9:53 AM CDT) Narrative Performed At EXAMINATION: IR LUMBAR PUNCTURE [facility] CLINICAL HISTORY: Peripheral Demyelinating Neuropathy COMPARISON:None TECHNIQUE: Informed consent and a timeout was performed. The patient's lower back was prepped and draped in the usual sterile fashion. Fluoroscopy was used for image guidance for lumbar puncture. FINDINGS: 1% lidocaine was used for local anesthesia. Under direct fluoroscopic guidance, access to the thecal sac was made with a 22-gauge spinal needle at the L5-S1 level. A total of approximately 17 cc of clear colorless CSF was removed without difficulty. The patient tolerated the procedure well. There were no complications. The sample was sent to the laboratory for analysis as requested. Total fluoroscopy time was 0.1 minute.Total radiation dose is 1 mGy=Ka,r IMPRESSION: Successful fluoroscopic guided lumbar puncture as detailed above. [facility]-[id number] Procedure Note Interface, Radiology Results Incoming - 03/23/2018 1:03 PM CDT EXAMINATION: IR LUMBAR PUNCTURE CLINICAL HISTORY: Peripheral Demyelinating Neuropathy COMPARISON: None TECHNIQUE: Informed consent and a timeout was performed. The patient's lower back was prepped and draped in the usual sterile fashion. Fluoroscopy was used for image guidance for lumbar puncture. FINDINGS: 1% lidocaine was used for local anesthesia. Under direct fluoroscopic guidance, access to the thecal sac was made with a 22-gauge spinal needle at the L5-S1 level. A total of approximately 17 cc of clear colorless CSF was removed without difficulty. The patient tolerated the procedure well. There were no complications. The sample was sent to the laboratory for analysis as requested. Total fluoroscopy time was 0.1 minute. Total radiation dose is 1 mGy=Ka,r IMPRESSION: Successful fluoroscopic guided lumbar puncture as detailed above. [facility]-[id number] Performing Organization Address City/State/Zipcode Phone Number [facility] [address] [place] [address] * IgG synthesis rate study (03/23/2018 9:45 AM CDT) IgG albumin ratio, CSF 0.12 0.00 - 0.23 [facility] DEPARTMENT OF PATHOLOGY AND GENOMIC MEDICINE IgG index, CSF 0.49 0.01 - 0.63 [facility] DEPARTMENT OF PATHOLOGY AND GENOMIC MEDICINE IgG synthetic rate 13.91 (H) -9.90 - 3.30 mg/day [facility] DEPARTMENT OF PATHOLOGY AND GENOMIC MEDICINE Q-albumin ratio, CSF 53.57 (H) 2.00 - 6.00 [facility] DEPARTMENT OF PATHOLOGY AND GENOMIC MEDICINE IgG, CSF 22.10 (H) 1.00 - 3.00 mg/dL [facility] DEPARTMENT OF PATHOLOGY AND GENOMIC MEDICINE Albumin, CSF 182.13 (H) 10.00 - 30.00 mg/dL [facility] DEPARTMENT OF PATHOLOGY AND GENOMIC MEDICINE IgG 834 700 - 1,600 mg/dL [facility] DEPARTMENT OF PATHOLOGY AND GENOMIC MEDICINE Albumin, S 3,400.0 (L) 3,640.0 - 5,304.0 mg/dL [facility] DEPARTMENT OF PATHOLOGY AND GENOMIC MEDICINE Specimen Serum Performing Organization Address City/[facility]/[place] [address] PATHOLOGY AND GENOMIC MEDICINE * West Nile virus by PCR, CSF (03/23/2018 9:45 AM CDT) West Nile virus PCR, CSF Not-Detected Not-Detected [facility] DEPARTMENT OF PATHOLOGY AND GENOMIC MEDICINE West Nile virus PCR, CSF See link below for PDF Lab [facility] DEPARTMENT OF ReportComment: Case Number: PATHOLOGY AND [id number] [facility] Specimen Cerebrospinal fluid Performing Organization Address City/[facility] [place] [address] [facility] * West Nile virus antibody panel, CSF (03/23/2018 9:45 AM CDT) West Nile IgG, CSF 0.03 <=1.29 IV [facility] Comment: INTERPRETIVE INFORMATION: West Nile Virus Ab IgG by ANGY, CSF 1.29 IV or less ....... Negative: No significant level of West Nile virus IgG antibody detected. 1.30 - 1.49 IV ........ Equivocal: Questionable presence of West Nile virus IgG antibody detected. Repeat testing in 10-14 days may be helpful. 1.50 IV or greater .... Positive: Presence of IgG antibody to West Nile virus detected , suggestive of current or past infection. This test is intended to be used as a semi-quantitative means of detecting West Nile virus-specific IgG in CSF samples in which there is a clinical suspicion of West Nile Virus infection. This test should not be used solely for quantitative purposes, nor should the results be used without correlation to clinical history or other data. Because other members of the Flaviviridae family, such as [place] encephalitis virus, show extensive cross-reactivity with West Nile virus, serologic testing specific for these species should be considered. The detection of antibodies to West Nile virus in cerebrospinal fluid may indicate central nervous system infection. However, consideration must be given to possible contamination by blood or transfer of serum antibodies across the blood-brain barrier. Test developed and characteristics determined by [employer]. See Compliance Statement B: [employer]/CS West Nile IgM, CSF 0.01 <=0.89 IV [facility] Comment: INTERPRETIVE INFORMATION: West Nile Virus Ab IgM by ANGY, CSF 0.89 IV or less ...... Negative - No significant level of West Nile virus IgM antibody detected. 0.90-1.10 IV ......... Equivocal - Questionable presence of West Nile virus IgM antibody detected. Repeat testing in 10-14 days may be helpful. 1.11 IV or greater ... Positive - Presence of IgM antibody to West Nile virus detected, suggestive of current or recent infection. This test is intended to be used as a semi-quantitative means of detecting West Nile virus-specific IgM in CSF samples in which there is a clinical suspicion of West Nile virus infection. This test should not be used solely for quantitative purposes, nor should the results be used without correlation to clinical history or other data. Because other members of the Flaviviridae family, such as [place] encephalitis virus, show extensive cross-reactivity with West Nile virus, serologic testing specific for these species should be considered. The detection of antibodies to West Nile virus in cerebrospinal fluid may indicate central nervous system infection. However, consideration must be given to possible contamination by blood or transfer of serum antibodies across the blood-brain barrier. Test developed and characteristics determined by [employer]. See Compliance Statement B: [email or web address] Performed by [facility], [address] [place] [address] [email or web address], Blade Hoff MD - Lab. Director Specimen Cerebrospinal fluid Performing Organization Address City/State/Zipcode Phone Number [facility] [address] [place] [address] * AFB culture (03/23/2018 9:45 AM CDT) AFB culture isolate No growth after 6 weeks of [facility] DEPARTMENT OF incubation. PATHOLOGY AND Comment: GENOMIC MEDICINE Specimen Information Specimen Source: CSF (Spinal Fluid) Specimen Site: Lumbar puncture Specimen Cerebrospinal fluid - Lumbar puncture Performing Organization Address City/[facility]/Zipcode Phone Number [address] [address] PATHOLOGY AND GENOMIC MEDICINE * Cryptococcal antigen, screen (03/23/2018 9:45 AM CDT) Cryptococcal Ag Negative - No Cryptococcus [facility] DEPARTMENT OF antigen detected. PATHOLOGY AND Comment: GENOMIC MEDICINE Specimen Information Specimen Source: CSF (Spinal Fluid) Specimen Site: Lumbar puncture Specimen Cerebrospinal fluid - Lumbar puncture Performing Organization Address [facility] Phone Number [place] [address] PATHOLOGY AND GENOMIC MEDICINE * Oligoclonal banding, CSF (03/23/2018 9:45 AM CDT) Protein, CSF 235 (H) 15 - 45 mg/dL [facility] OF PATHOLOGY AND GENOMIC MEDICINE Prealbumin, CSF 1.0 (L) 3.5 - 11.1 % [facility] DE[facility] OF PATHOLOGY AND GENOMIC MEDICINE Albumin, CSF 69.8 (H) 40.8 - 66.2 % [facility] DE[facility] OF PATHOLOGY AND GENOMIC MEDICINE Alpha 1, CSF 3.2 2.3 - 6.4 % [facility] DE[facility] OF PATHOLOGY AND GENOMIC MEDICINE Alpha 2, CSF 6.7 6.1 - 12.6 % [facility] DEPART[facility] OF PATHOLOGY AND GENOMIC MEDICINE Beta, CSF 10.0 (L) 11.7 - 24.1 % [facility] DEPART[facility] OF PATHOLOGY AND GENOMIC MEDICINE Gamma, CSF 9.3 5.6 - 12.2 % [facility] DE[facility] OF PATHOLOGY AND GENOMIC MEDICINE CSF extended See Comment [facility] OF interpretation Comment: PATHOLOGY AND An abnormal CSF protein study [facility] with increased total protein and increased Q-albumin and decreased prealbumin 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 IgG synthesis rate increased probably as an artifact. No oligoclonal bands are seen. CSF interpretation See CommentComment: Lita [facility] DE[facility] OF Gissel BECKFORD; Deborah Juares, PhD; Lon REID AND MD Holland, PhD GENOMIC MEDICINE Specimen Cerebrospinal fluid Performing Organization Address City/[facility] Phone Number [facility] DEPART[facility] OF [address] [place] [address] PATHOLOGY AND GENOMIC MEDICINE * Gram stain (03/23/2018 9:45 AM CDT) Gram stain isolate No WBC's or organisms seen. [facility] OF Comment: PATHOLOGY AND Specimen Information GENOMIC MEDICINE Specimen Source: CSF (Spinal Fluid) Specimen Site: Lumbar puncture Specimen Cerebrospinal fluid - Lumbar puncture Performing Organization Address City/[facility] Phone Number [place] [address] PATHOLOGY AND GENOMIC MEDICINE * CSF culture (03/23/2018 9:45 AM CDT) CSF culture isolate No growth after 3 days. [facility] OF Comment: PATHOLOGY AND Specimen Information GENOMIC MEDICINE Specimen Source: CSF (Spinal Fluid) Specimen Site: Lumbar puncture Specimen Cerebrospinal fluid - Lumbar puncture Performing Organization Address City/[facility] [place] [address] PATHOLOGY AND GENOMIC MEDICINE * CSF cell count with differential (03/23/2018 9:45 AM CDT) Color, CSF Colorless [facility] DEPARTMENT OF PATHOLOGY AND GENOMIC MEDICINE Appearance, CSF Clear [facility] DEPARTMENT OF PATHOLOGY AND GENOMIC MEDICINE RBC, CSF 19 (H) 0 - 1 /CMM [facility] DEPARTMENT OF PATHOLOGY AND GENOMIC MEDICINE WBC, CSF 7 (H) 0 - 5 /CMM [facility] DEPARTMENT OF PATHOLOGY AND GENOMIC MEDICINE CSF mononuclear cell Diff to follow [facility] DEPARTMENT OF PATHOLOGY AND GENOMIC MEDICINE Neutrophils, CSF 4 % [facility] DEPARTMENT OF PATHOLOGY AND GENOMIC MEDICINE Lymphocytes, CSF 96 % [facility] DEPARTMENT OF PATHOLOGY AND GENOMIC MEDICINE Specimen Cerebrospinal fluid Performing Organization Address City/[facility] Hospital[facility] [place] [address] PATHOLOGY AND GENOMIC MEDICINE * VDRL, CSF screen (03/23/2018 9:45 AM CDT) VDRL, CSF screen Non-reactive Non-reactive [facility] DEPARTMENT OF PATHOLOGY AND GENOMIC MEDICINE Specimen Cerebrospinal fluid Performing Organization Address City/[facility] Phone Number [place] [address] PATHOLOGY AND GENOMIC MEDICINE * Glucose level, CSF (03/23/2018 9:45 AM CDT) Glucose, CSF 95 (H) 40 - 70 mg/dL [facility] DEPARTMENT OF PATHOLOGY AND GENOMIC MEDICINE Specimen Cerebrospinal fluid Performing Organization Address City/[facility] [place] [address] PATHOLOGY AND GENOMIC MEDICINE * Angiotensin converting enzyme, CSF (03/23/2018 9:45 AM CDT) Angiotensin converting 3.2 (H) 0.0 - 2.5 U/L [facility] enzyme, CSF Comment: This test was developed and its performance characteristics determined by [employer]. The U.S. Food and Drug Administration has not approved or cleared this test; however, FDA clearance or approval is not currently required for clinical use. The results are not intended to be used as the sole means for clinical diagnosis or patient management decisions. Performed by [facility], [address] [place] [address] www.[employer], Blade Hoff MD - Lab. Director Specimen Cerebrospinal fluid Performing Organization Address City/State/Zipcode Phone Number [facility] [address] [place] [address] * MRI Cervical Spine Wo Contrast (03/23/2018 8:55 AM CDT) Narrative Performed At EXAMINATION: MRI CERVICAL SPINE WO CONTRAST [facility] CLINICAL HISTORY: Polytraumacriticalhead C-spine injury suspected COMPARISON:CT cervical spine 05/12/2017. TECHNIQUE: Multiplanar multisequence noncontrast enhanced examination was performed of the cervical spine. FINDINGS: There is straightening of the cervical spine, however no subluxation identified. No abnormal marrow edema identified. Vertebral body and intervertebral disc heights are preserved. No extradural collections identified. The ligaments appear to be intact. No suspicious osseous lesion. No degenerative marrow changes. The cervicomedullary junction is normal in appearance. No spinal cord signal abnormality. No prevertebral edema or neck mass identified. No cervical lymphadenopathy. I recommend is normal in appearance. Major vascular flow voids are present. Axial images through the disc spaces demonstrate the following: C1-C2: No significant spinal canal stenosis. C2-C3: No significant posterior disc disease, spinal canal, subarticular zone, or neural foraminal stenosis. C3-C4: No significant posterior disc disease, spinal canal, subarticular zone, or neural foraminal stenosis. C4-C5: No significant posterior disc disease, spinal canal, subarticular zone, or neural foraminal stenosis. C5-C6: No significant posterior disc disease, spinal canal, subarticular zone, or neural foraminal stenosis. C6-C7: Small annular fissure with tiny central disc protrusion which indents the ventral thecal sac, image 27 of series 6. No significant spinal canal, subarticular zone or neural foraminal stenosis. C7-T1: No significant posterior disc disease, spinal canal, subarticular zone, or neural foraminal stenosis. IMPRESSION: 1.No abnormal marrow edema or ligamentous injuries identified. 2.Tiny annular fissure and central disc protrusion at C6-C7. No significant spinal canal stenosis identified. [facility]-[id number] Procedure Note Hm Interface, Radiology Results - 03/23/2018 9:23 AM CDT EXAMINATION: MRI CERVICAL SPINE WO CONTRAST CLINICAL HISTORY: Polytrauma critical head C-spine injury suspected COMPARISON: CT cervical spine 05/12/2017. TECHNIQUE: Multiplanar multisequence noncontrast enhanced examination was performed of the cervical spine. FINDINGS: There is straightening of the cervical spine, however no subluxation identified. No abnormal marrow edema identified. Vertebral body and intervertebral disc heights are preserved. No extradural collections identified. The ligaments appear to be intact. No suspicious osseous lesion. No degenerative marrow changes. The cervicomedullary junction is normal in appearance. No spinal cord signal abnormality. No prevertebral edema or neck mass identified. No cervical lymphadenopathy. I recommend is normal in appearance. Major vascular flow voids are present. Axial images through the disc spaces demonstrate the following: C1-C2: No significant spinal canal stenosis. C2-C3: No significant posterior disc disease, spinal canal, subarticular zone, or neural foraminal stenosis. C3-C4: No significant posterior disc disease, spinal canal, subarticular zone, or neural foraminal stenosis. C4-C5: No significant posterior disc disease, spinal canal, subarticular zone, or neural foraminal stenosis. C5-C6: No significant posterior disc disease, spinal canal, subarticular zone, or neural foraminal stenosis. C6-C7: Small annular fissure with tiny central disc protrusion which indents the ventral thecal sac, image 27 of series 6. No significant spinal canal, subarticular zone or neural foraminal stenosis. C7-T1: No significant posterior disc disease, spinal canal, subarticular zone, or neural foraminal stenosis. IMPRESSION: 1. No abnormal marrow edema or ligamentous injuries identified. 2. Tiny annular fissure and central disc protrusion at C6-C7. No significant spinal canal stenosis identified. [facility]-[id number] Performing Organization Address City/State/Zipcode Phone Number [facility] [address] [place] [address] * MRI Brain Wo Contrast (03/23/2018 8:34 AM CDT) Narrative Performed At [facility] EXAMINATION:MRI BRAIN WO CONTRAST CLINICAL HISTORY:Neuro deficit(s)subacute COMPARISON:MRI of the brain dated April 20, 2017 TECHNIQUE: Multiplanar MRI imaging without IV Gadolinium was performed. FINDINGS: The brain parenchyma is unremarkable with no signal abnormality.There is no evidence of acute infarction, hemorrhage, mass lesion, or midline shift. Ventricles, sulci, and cisterns are age-appropriate in size and configuration. There is no extra-axial fluid collection. Flow voids of the major intracranial vessels are intact. Visualized paranasal sinuses and mastoid air cells are clear. Bones, orbits, and soft tissues are unremarkable. IMPRESSION: No acute intracranial abnormality. [facility]-[id number] Procedure Note Interface, Radiology Results - 03/23/2018 8:51 AM CDT EXAMINATION: MRI BRAIN WO CONTRAST CLINICAL HISTORY: Neuro deficit(s) subacute COMPARISON: MRI of the brain dated April 20, 2017 TECHNIQUE: Multiplanar MRI imaging without IV Gadolinium was performed. FINDINGS: The brain parenchyma is unremarkable with no signal abnormality. There is no evidence of acute infarction, hemorrhage, mass lesion, or midline shift. Ventricles, sulci, and cisterns are age-appropriate in size and configuration. There is no extra-axial fluid collection. Flow voids of the major intracranial vessels are intact. Visualized paranasal sinuses and mastoid air cells are clear. Bones, orbits, and soft tissues are unremarkable. IMPRESSION: No acute intracranial abnormality. [facility]-[id number] Performing Organization Address [facility] Hospitalcowv Phone Number [facility] [address] [place] [address] * Syphilis treponemal IgG (03/22/2018 5:30 PM CDT) Syphilis treponemal IgG Non-reactiveComment: Non-reactive [facility] DEPARTMENT OF Non-reactive: No serological PATHOLOGY AND evidence of Syphilis infection GENOMIC MEDICINE Specimen Serum Performing Organization Address [facility] Phone Number [facility] [address] [address] PATHOLOGY AND GENOMIC MEDICINE * Rapid HIV 1 & 2 (03/22/2018 5:30 PM CDT) Rapid HIV 1 and 2 Non-Reactive Non-Reactive [facility] DEPARTMENT OF PATHOLOGY AND GENOMIC MEDICINE Specimen Blood Performing Organization Address [facility]/State/Zipcode Phone Number [facility] [address] [facility] [place] [address] PATHOLOGY AND GENOMIC MEDICINE * Heavy metals panel 3, blood (03/22/2018 5:30 PM CDT) Arsenic <10.0 0.0 - 13.0 ug/L [facility] Comment: INTERPRETIVE INFORMATION: Arsenic, Blood Potentially toxic ranges for blood arsenic:Greater than or equal to 600 ug/L. Blood arsenic is for the detection of recent exposure only. Blood arsenic levels in healthy subjects vary considerably with exposure to arsenic in the diet and the environment.A 24-hour urine arsenic is useful for the detection of chronic exposure. Test developed and characteristics determined by [employer]. See Compliance Statement B: [email or web address]/CS Lead, blood 3.1 0.0 - 4.9 ug/dL [facility] Comment: INTERPRETIVE INFORMATION: Lead, Blood (Venous) Elevated results may be due to skin or collection-related contamination, including use of a noncertified lead-free tube. Elevated levels of blood lead should be confirmed with a second specimen collected in a lead-free tube. Information sources for reference intervals and interpretive comments include the CDC Response to the 2012 Advisory Committee on Childhood Lead Poisoning Prevention Report and the Recommendations for Medical Management of Adult Lead Exposure, Environmental Health Perspectives, 2007. Thresholds and time intervals for retesting, medical evaluation, and response vary by state and regulatory body. Contact your State Department of Health and/or applicable regulatory agency for specific guidance on medical management recommendations. AgeCon centration Comment All ages 5-9.9 ug/dL Adverse health effects are possible, particularly in children under 6 years of age and women. Discuss health risks associated with continued lead exposure. For children and women who are or may become , reduce lead exposure. All [id number] ug/dLReduced lead exposure and increased biological monitoring are recommended. All [id number] ug/dLRemoval from lead exposure and prompt medical evaluation are recommended. Consider chelation therapy when concentrations exceed 50 ug/dL and symptoms of lead toxicity are present. Less than 19 Greater thanCritical. Immediate medical years of age 44.9 ug/dLevaluation is recommended. Consider chelation therapy when symptoms of lead toxicity are present. Greater than 19Greater thanCritical. Immediate medical years of age 69.9 ug/dLevaluation is recommended Consider chelation therapy when symptoms of lead toxicity are present. Test developed and characteristics determined by [employer]. See Compliance Statement B: [email or web address]/CS Mercury, blood <3 0 - 10 ug/L [facility] Comment: INTERPRETIVE INFORMATION: Mercury, Blood Blood mercury levels predominantly reflect recent exposure and are most useful in the diagnosis of acute poisoning as blood mercury concentrations rise sharply and fall quickly over several days after ingestion. Blood concentrations in unexposed individuals rarely exceed 20 ug/L. The provided reference interval relates to inorganic mercury concentrations. Dietary and non-occupational exposure to organic mercury forms may contribute to an elevated total mercury result. Clinical presentation after toxic exposure to organic mercury may include dysarthria, ataxia and constricted vision myles with mercury blood concentrations from 20 to 50 ug/L. Test developed and characteristics determined by [employer]. See Compliance Statement B: [employer]/CS Performed by [employer], [address] [place], [place] [id number] www.[employer], Blade Hoff MD - Lab. Director Specimen Blood Narrative Performed At [facility], Serum: whole blood submitted for testing. specimen requires serum or [facility] plasma to be from cells soon after collection. Notified Tita ([facility] ([facility]) to recollect 03/23/201809:56 mpajgs Performing Organization Address [facility] Phone Number [facility] [address] [phone] * Vitamin B1 level, whole blood (03/22/2018 5:30 PM CDT) Vitamin B1 90 70 - 180 nmol/L [facility] Comment: INTERPRETIVE INFORMATION: Vitamin B1, Whole Blood This assay measures the concentration of thiamine diphosphate (TDP), the primary active form of vitamin B1. Approximately 90 percent of vitamin B1 present in whole blood is TDP. Thiamine and thiamine monophosphate, which comprise the remaining 10 percent, are not measured. Test developed and characteristics determined by [employer]. See Compliance Statement B: [employer]/CS Performed by [employer], [address] [place] [id number] www.[employer], Blade Hoff MD - Lab. Director Specimen Plasma specimen Performing Organization Address [facility] Phone Number [employer] [address] [place] [address] * Partial thromboplastin time, activated (03/22/2018 5:30 PM CDT) PTT 31.0 23.0 - 36.0 sec [facility] DEPARTMENT OF Comment: PATHOLOGY AND PTT therapeutic range for [facility] unfractionated heparin is 61.0-112.0 seconds which corresponds to Anti-Xa 0.3-0.7 U/ml. Specimen Blood Performing Organization Address City/[facility] Hospital[facility] [place] [address] [facility] * Prothrombin time with INR (03/22/2018 5:30 PM CDT) Only the most recent of 4 results within the time period is included. Prothrombin time 12.9 12.0 - 15.0 sec [facility] DEPARTMENT OF PATHOLOGY AND [facility] INR 1.0 [facility] DEPARTMENT OF Comment: PATHOLOGY AND The International Normalized [facility] Ratio (INR) is a therapeutic monitoring tool for patients who are stable on oral anticoagulant therapy. An INR of 2.0-3.0 is suggested for deep vein thrombosis/pulmonary embolism. Specimen Blood Performing Organization Address [facility] [place] [address] [address] [facility] * Thyroid stimulating hormone (03/22/2018 5:30 PM CDT) TSH 1.42 0.27 - 4.20 uIU/mL [facility] DEPARTMENT OF PATHOLOGY AND [facility] Specimen Blood Performing Organization Address [facility] Hospital[facility] [place] [address] [facility] * Magnesium level (03/22/2018 5:30 PM CDT) Only the most recent of 5 results within the time period is included. Magnesium 2.3 1.6 - 2.6 mg/dL [facility] DEPARTMENT OF PATHOLOGY AND [facility] Specimen Blood Performing Organization Address City/[facility] [place] [address] [facility] * Hemoglobin A1c (03/22/2018 5:30 PM CDT) Only the most recent of 3 results within the time period is included. Hemoglobin A1C 7.2 (H) 4.0 - 6.0 % [facility] DEPARTMENT OF Comment: PATHOLOGY AND GENOMIC MEDICINE Less than 6% - Goal of therapy for Type II Diabetes Less than 7%-Goal of therapy for Type I Diabetes Less than 8%-Accepta ble control for Type I or Type II Diabetes Greater than 8%-Unacceptabl e control; action indicated. ([id number]) Specimen Blood Performing Organization Address City/State/Zipcode Phone Number [facility] [place] [address] [place] [address] PATHOLOGY AND GENOMIC MEDICINE * Vitamin B12 level (03/22/2018 5:30 PM CDT) Vitamin B12 645 211 - 946 pg/mL [facility] DEPARTMENT OF Comment: PATHOLOGY AND Significant overlap exists GENOMIC MEDICINE between normal and deficiency states. However, most patients with deficiencies will have Serum B12 <200 pg/mL. Specimen Serum Performing Organization Address City/[facility]/Zipcode Phone Number [facility] DEPARTMENT OF [address] [place] [address] PATHOLOGY AND GENOMIC MEDICINE * Lipid panel (03/22/2018 5:30 PM CDT) Only the most recent of 2 results within the time period is included. Cholesterol 195 0 - 199 mg/dL [facility] DEPARTMENT OF PATHOLOGY AND GENOMIC MEDICINE Triglycerides 91 0 - 149 mg/dL [facility] DEPARTMENT OF PATHOLOGY AND GENOMIC MEDICINE HDL cholesterol 55 40 - 99,999 mg/dL [facility] DEPARTMENT OF PATHOLOGY AND GENOMIC MEDICINE LDL cholesterol 132 (H) 0 - 99 mg/dL [facility] DEPARTMENT OF PATHOLOGY AND GENOMIC MEDICINE Lipid panel See below [facility] DEPARTMENT OF interpretation Comment: PATHOLOGY AND Total Cholesterol GENOMIC MEDICINE (mg/dL) <200 Desirable 200-239Borderline -high >=240High Triglycerides (mg/dL) <150 Normal 150-199Borderline -high 200-499High >=500Very high HDL Cholesterol (mg/dL) <40Low (male) <50Low (female) LDL Cholesterol (mg/dL) <100 Optimal 100-129Near or above optimal 130-159Borderline -high 160-189High >=190Very high Risk Catergories that modify LDL goals. Risk Catergories LDL goal (mg/dL) CHD and CHD risk equivalent<100 (10-year risk >20%) Multiple (2+) risk factors <130 (10-year risk=<20%) 0-1 risk factors <160 (<10-year risk) Defining levels of lipids in metabolic syndrome Triglycerides >=150 mg/dL HDL Cholesterol Men <40 mg/dL Women <50 mg/dL Non-HDL cholesterol is a second target for therapy in persons with high triglycerides (>=200 mg/dL) Specimen Blood Performing Organization Address City/State/Zipcode Phone Number [facility] [address] [facility] [place] [address] PATHOLOGY AND GENOMIC MEDICINE * CT Lumbar Spine Wo Contrast (03/22/2018 4:41 PM CDT) Narrative Performed At EXAMINATION: CT LUMBAR SPINE WO CONTRAST [facility] CLINICAL HISTORY:PolytraumacriticalT L spine injury suspected Technique: Contiguous thin section axial images were obtained of the lumbar spine.Sagittal and coronal reformatted images were generated. Images were reviewed in soft-tissue and bone detail. . CT imaging was performed with iterative reconstruction technique and/or automated exposure control to reduce radiation dose. Comparison: 05/12/2017 Findings: L5 is partially sacralized. Subtle retrolisthesis of L4 on L5. Mild sacroiliac joint degeneration. No acute fracture or traumatic malalignment of the lumbar spine. Right upper quadrant surgical clips. No significant degenerative changes appreciated. 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 Disc bulge at L4-L5 with mild canal narrowing. MRI would better assess intraspinal contents. Impression: No acute fracture or traumatic malalignment of the lumbar spine. [facility]-[id number] Procedure Note Interface, Radiology Results [facility] - 03/22/2018 9:25 PM CDT EXAMINATION: CT LUMBAR SPINE WO CONTRAST CLINICAL HISTORY: Polytrauma critical T L spine injury suspected Technique: Contiguous thin section axial images were obtained of the lumbar spine. Sagittal and coronal reformatted images were generated. Images were reviewed in soft-tissue and bone detail. . CT imaging was performed with iterative reconstruction technique and/or automated exposure control to reduce radiation dose. Comparison: 05/12/2017 Findings: L5 is partially sacralized. Subtle retrolisthesis of L4 on L5. Mild sacroiliac joint degeneration. No acute fracture or traumatic malalignment of the lumbar spine. Right upper quadrant surgical clips. No significant degenerative changes appreciated. 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 Disc bulge at L4-L5 with mild canal narrowing. MRI would better assess intraspinal contents. Impression: No acute fracture or traumatic malalignment of the lumbar spine. [facility]-[id number] Performing Organization Address City/State/Zipcode Phone Number [facility] [address] [place] [address] * Troponin (03/21/2018 9:40 PM CDT) Only the most recent of 5 results within the time period is included. Troponin <0.30 0.00 - 0.30 ng/mL [facility] DEPARTMENT OF Comment: PATHOLOGY AND 0.11 - 1.49 GENOMIC MEDICINE ng/mlMay indicate increased risk of acute coronary syndrome. >=1.5 ng/ml Consistent with acute myocardial infarction. The diagnostic value of a single normal or non-diagnostic result is questionable.Serial samples at 2-6 hour intervals are required to rule out acute myocardial injury. Specimen Plasma specimen Performing Organization Address City/[facility]/Zipcode Phone Number [facility] [address] [place] [address] PATHOLOGY AND GENOMIC MEDICINE * Myoglobin (03/21/2018 3:12 PM CDT) Myoglobin 261 (H) 21 - 72 ng/mL [facility] DEPARTMENT OF PATHOLOGY AND GENOMIC MEDICINE Specimen Plasma specimen Performing Organization Address City/[facility]/Zipcode Phone Number [facility] [address] [place] [address] PATHOLOGY AND GENOMIC MEDICINE * Surgical pathology request (02/11/2018 10:26 AM CDT) [facility] DEPARTMENT OF PATHOLOGY AND GENOMIC MEDICINE Surgical pathology report See link below for PDF Lab [facility] DEPARTMENT OF Report PATHOLOGY AND GENOMIC MEDICINE Result status This is Final Report to [facility] DEPARTMENT OF [id number] PATHOLOGY AND GENOMIC MEDICINE Performing Organization Address City/State/Zipcode Phone Number [facility] [phone] [address] PATHOLOGY AND GENOMIC MEDICINE * Ionized calcium (02/10/2018 3:45 AM CDT) Only the most recent of 3 results within the time period is included. pH 7.40 [facility] DEPARTMENT OF PATHOLOGY AND GENOMIC MEDICINE Ionized calcium 1.18 1.11 - 1.32 mmol/L [facility] DEPARTMENT OF PATHOLOGY AND GENOMIC MEDICINE Specimen Blood Performing Organization Address City/State/Zipcode Phone Number [address] [place] [address] PATHOLOGY AND GENOMIC MEDICINE * Echocardiogram complete w contrast and 3D if needed (02/09/2018 3:10 PM CDT) LA Area d A4C 49 cm2 [facility] AoV Area, Vmax 1.55 cm2 [facility] AoV Area, VTI 1.73 cm2 [facility] AoV Mean PG 14.85 mmHg [facility] AoV Peak PG 32.91 mmHg [facility] AoV Vmax 2.87 m/s [facility] AoV VTI 0.37 m [facility] IVS,d 1.00 cm [facility] IVS/LVPW,2D 0.91 [facility] Left Atrium Dimension 2.92 cm [facility] Anterior LV,d 3.77 cm [facility] LV EF,2D 66.05 % [facility] LV,s 2.63 cm [facility] LVOT area 3.14 cm2 [facility] LVOT Diam,S 2.00 cm [facility] LVOT Vmax 1.42 m/s [facility] LVOT VTI 0.20 m [facility] LVPWD,d 1.10 cm [facility] RVSP (TR) 29.79 mmHg [facility] TR Vpeak 2.30 mm/s [facility] RA pressure 10.00 mmHg [facility] TR pk grad 19.79 mmHg [facility] AV LVOT peak gradient 8.03 mmHg [facility] RVSP 29.79 mmHg [facility] Ao Root,d,2D 2.17 cm [facility] LV SYS VOL 25.32 ml [facility] LV GLASGOW VOL 60.79 ml [facility] LV SV Teich 2D 35.47 ml [facility] LV Vol s Teich PSAX 25.32 ml [facility] LVOT CO 8.17 l/min [facility] LVOT HR for LVOT CO 129.00 bpm [facility] AoV Vmn 1.77 [facility] LV FS Teich 2D 30.24 [facility] LV FS Cube 2D 30.24 [facility] LVOT Vmn 0.93 [facility] Aov area Vmn 1.66 cm2 [facility] MAX Pred HR 193.58 [facility] 85 of MPHR 164.54 [facility] Ao d LA s ratio 0.74 [facility] Calc MPHR 193.58 bpm [facility] LV SV Cube 2D 35.39 ml [facility] LV vol d cube 2D 53.58 ml [facility] LV vol s cube 2D 18.19 ml [facility] Pred Exer Dur R1 11.54 [facility] Pred METS R1 11.26 [facility] Velocity Ratio (V1/V2) 0.49 m/s [facility] EF 58.35 % [facility] Narrative Performed At [facility] The left ventricle chamber size is normal. Left Ventricular ejection fraction is 60 - 65%. No pericardial effusion Performing Organization Address [facility] Phone Number [facility] [address] [place] [address] * Beta hydroxybutyrate (02/09/2018 2:50 PM CDT) Only the most recent of 2 results within the time period is included. Beta hydroxybutyrate 0.13 0.02 - 0.27 mmol/L [facility] DEPARTMENT OF PATHOLOGY AND GENOMIC MEDICINE Specimen Serum Performing Organization Address [facility] Phone Number [address] [place] [address] PATHOLOGY AND GENOMIC MEDICINE * hCG qualitative, serum screen (02/09/2018 2:50 PM CDT) hCG qualitative, serum NegativeComment: Sensitivity: [facility] DEPARTMENT OF 10 mlUhCG/mL in Serum PATHOLOGY AND GENOMIC MEDICINE Specimen Blood Performing Organization Address [facility] Phone Number [address] [place] [address] PATHOLOGY AND GENOMIC MEDICINE * Creatine kinase, total (CPK) (02/09/2018 7:15 AM CDT) Only the most recent of 2 results within the time period is included. Creatine kinase 83 35 - 200 U/L [facility] DEPARTMENT OF PATHOLOGY AND GENOMIC MEDICINE Specimen Plasma specimen Performing Organization Address [facility] [place] [address] PATHOLOGY AND [facility]IC[facility] * CT Maxillofacial Wo Contrast (01/21/2018 4:22 PM CDT) Narrative Performed At EXAMINATION:CT MAXILLOFACIAL WO CONTRAST [facility] COMPARISON:None CLINICAL HISTORY:b l TMJ painlocking of jaw.dialysis patient.s p fall COMMENTS:Axial CT scan slices of the maxillofacial bones were obtained. Sagittal and coronal reconstructions were obtained. CT imaging was performed with iterative reconstruction technique and/or automated exposure control to reduce radiation dose. FINDINGS:There is mild mucosal thickening in the inferior right maxillary sinus. There is a moderate-sized polyp or retention cyst in the inferior left maxillary sinus. The maxillofacial bones do not show an acute fracture. The temporal mandibular regions appear grossly unremarkable with no dislocation of the mandibular condyles. IMPRESSION:No acute fracture of the maxillofacial bones. [facility]-[id number] Procedure Note Interface, Radiology Results Incoming - 01/21/2018 4:32 PM CDT EXAMINATION: CT MAXILLOFACIAL WO CONTRAST COMPARISON: None CLINICAL HISTORY: b l TMJ pain locking of jaw. dialysis patient. s p fall COMMENTS: Axial CT scan slices of the maxillofacial bones were obtained. Sagittal and coronal reconstructions were obtained. CT imaging was performed with iterative reconstruction technique and/or automated exposure control to reduce radiation dose. FINDINGS: There is mild mucosal thickening in the inferior right maxillary sinus. There is a moderate-sized polyp or retention cyst in the inferior left maxillary sinus. The maxillofacial bones do not show an acute fracture. The temporal mandibular regions appear grossly unremarkable with no dislocation of the mandibular condyles. IMPRESSION: No acute fracture of the maxillofacial bones. [facility]-[id number] Performing Organization Address City/[facility] Phone Number [facility] [address] [place] [address] * CT Abd/Pelvic External Study (11/22/2017 8:19 PM CDT) Narrative Performed At This exam was not acquired at a [facility] facility and has not been [facility] interpreted by a [facility] Provider.The exam was imported into our imaging system for comparisons purposes. Performing Organization Address City/[facility] Phone Number [facility] [address] [place] [address] * CRITICAL CARE (06/26/2017 1:11 PM BEE RAISER) Narrative Performed At Itzel Appiah MD 06/26/20171:11 PM Critical Care [...] condition and review of old charts * IR Tunneled Dialysis Catheter Replacement/Exchange (06/23/2017 6:26 PM BEE RAISER) Narrative Performed At Performing Radiologist SERGO Patrick MD Assistants None. Anesthesia Type Moderate sedation was administered by the procedure nurse and monitored by the procedure physician for a total llcr-jz-efdl sedation time of 14 minutes. Lidocaine 1% [...] 1% was used for local anesthetic. A road builder image was obtained, demonstrating tip of the [...] and is ready for use. [id number] Procedure Note Interface, Radiology Results Incoming - 06/23/2017 6:35 PM BEE RAISER Performing Radiologist Víctor Patrick MD Assistants None. Anesthesia Type Moderate sedation was administered by the procedure nurse and monitored by the procedure physician for a total aoiu-mu-sijl sedation time of 14 minutes. Lidocaine 1% [...] 1% was used for local anesthetic. A road builder image was obtained, demonstrating tip of the [...] and is ready for use. [facility]-[id number] Performing Organization Address [facility] Phone Number [facility] [address] [place] [address] * Osmolality, serum (06/23/2017 3:50 AM BEE RAISER) Only the most recent of 2 results within the time period is included. Osmolality 307 (H) 275 - 295 mOsm/kg [facility] DEPARTMENT OF PATHOLOGY AND [facility]ICINE Specimen Blood Performing Organization Address [facility] [place] [address] PATHOLOGY [facility] * Lactic acid level (06/22/2017 8:40 PM BEE RAISER) Lactic acid 2.5 (H) 0.5 - 2.2 mmol/L [facility] DEPARTMENT OF PATHOLOGY AND GENOMIC MEDICINE Specimen Plasma specimen Performing Organization Address [facility] [place] [address] [facility] * Arterial blood gas (06/22/2017 7:41 PM BEE RAISER) pH, arterial 7.33 (L) 7.35 - 7.45 [facility] DEPARTMENT OF PATHOLOGY AND GENOMIC MEDICINE pCO2, arterial 33 (L) 35 - 45 mmHg [facility] DEPARTMENT OF PATHOLOGY AND GENOMIC MEDICINE pO2, arterial 121 (H) 80 - 90 mmHg [facility] DEPARTMENT OF PATHOLOGY AND GENOMIC MEDICINE Bicarbonate, arterial 16.5 (L) 21.0 - 28.0 mmol/L [facility] DEPARTMENT OF PATHOLOGY AND GENOMIC MEDICINE Base excess, arterial -8 (L) -2 - 2 mEq/L [facility] DEPARTMENT OF PATHOLOGY AND GENOMIC MEDICINE O2 saturation, arterial 98 95 - 100 % [facility] DEPARTMENT OF PATHOLOGY AND GENOMIC MEDICINE Specimen Blood Performing Organization Address [facility] [place] [address] PATHOLOGY AND GENOMIC MEDICINE * Bedside glucose (06/22/2017 6:19 PM BEE RAISER) POC glucose HI Specimen Blood * B natriuretic peptide (06/22/2017 3:45 PM BEE RAISER) BNP 980 (H) 0 - 100 pg/mL [facility] DEPARTMENT OF PATHOLOGY AND GENOMIC MEDICINE Specimen Blood Performing Organization Address [facility] [place] [address] PATHOLOGY AND GENOMIC MEDICINE * XR Chest 1 Vw Portable (06/22/2017 3:32 PM BEE RAISER) Narrative Performed At EXAMINATION:XR CHEST 1 VW PORTABLE [facility] CLINICAL HISTORY:eval dialysis catheter COMPARISON:May 12, 2017 [...] the prior study. There is no pneumothorax. [id number] Procedure Note Interface, Radiology Results Incoming - 06/22/2017 3:40 PM BEE [facility]ER EXAMINATION: XR CHEST 1 VW PORTABLE CLINICAL [...] the prior study. There is no pneumothorax. [id number] Performing Organization Address City/State/[facility] Phone Number [facility] [address] [place] [address] after 06/18/2017 Insurance Payer Benefit Subscriber ID Type Phone Address Plan / Group MEDICARE MEDICARE xxxxxxxxxx Medicare [place] PART A [place] B MEDICAID MEDICAID xxxxxxxxx Medicaid Advance Directives Patient has advance care planning documents, and code status on file. For more i nformation, please contact: Jaciel Urbina [address] [place] [address] Date Inactivated Comments Code Status Date Activated 04/21/2017 7:21 PM Full Code 04/20/2017 5:51 AM Code Status decision reached by: Patient 04/07/2017 7:50 PM Full Code 03/30/2017 10:54 PM Code Status decision reached by: Patient
--- OUTSIDE RECORDS SUMMARY | 2018-06-19 14:49 | XMS REPORT | Clinical Summary ---
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 Name Role Phone Marcia Westfall MD PCP Allergies Comments Active Allergy Reactions Severity Noted Date Lisinopril 10/25/2015 Mouth shifted to the side Metoclopramide Hcl Other (See 02/19/2013 Comments) Makes throat swell Shellfish Containing Itching, 10/27/2017 Products Swelling jittery Ketorolac Other (See 02/19/2013 Comments) Like i cannot move my body as verbalized by the pt Tizanidine Other (See 05/11/2015 Comments) More nausea Ondansetron Hcl (Pf) 06/07/2015 Medications End Date Status Medication Sig Dispensed Refills Start Date Active insulin lispro (HUMALOG) Inject 13 30 mL 0 201 100 unit/mL InPn Units 7 subcutaneousl y 3 (three) times daily with meals. Active insulin detemir (LEVEMIR) Inject 0.3 15 mL 0 201 100 unit/mL (3 mL) InPn mLs (30 Units 7 injectionIndications: total) type 1 diabetes mellitus subcutaneousl y every morning With breakfast and dinner.. Active promethazine (PHENERGAN) Take 25 mg by 0 25 MG tablet mouth every 6 (six) hours as needed for Nausea. Active zolpidem (AMBIEN) 10 mg Take 10 mg by 0 tablet mouth every night as needed . Active ALPRAZolam (XANAX) 1 MG Take 1 mg by 0 tablet mouth 2 (two) times daily as needed for Anxiety. Active cloNIDine (CATAPRES-TTS) Place 1 patch 0 0.3 mg/24 hr patch onto the skin once a week. Active losartan (COZAAR) 100 MG Take 100 mg 0 tablet by mouth daily. 05/23/2019 Active hydrALAZINE (APRESOLINE) Take 1 tablet 90 tablet 5 100 MG tablet (100 mg 8 total) by mouth every 8 (eight) hours. 10/29/2017 Discontinued calcium carbonate (TUMS) Take 2 120 tablet 11 500 mg chewable tablet tablets 7 (1,000 mg total) by mouth 2 (two) times daily. 05/17/2018 Discontinued labetalol (NORMODYNE) 200 Take 200 mg 0 MG tablet by mouth 3 (three) times daily. 03/04/2018 Discontinued ARIPiprazole (ABILIFY) 5 Take 5 mg by 0 MG tablet mouth daily. 03/04/2018 Discontinued NIFEdipine (ADALAT CC) 60 Take 60 mg by 0 MG 24 hr tablet mouth 2 (two) times daily. 02/26/2018 cloNIDine (CATAPRES-TTS) Place 1 patch 4 patch 2 0.3 mg/24 hr patch onto the skin 7 once a week. 05/23/2018 Discontinued hydrALAZINE (APRESOLINE) Take 1 tablet 90 tablet 0 100 MG tablet (100 mg 7 total) by mouth every 8 (eight) hours. 01/28/2018 methylPREDNISolone follow 1 Package 0 (MEDROL DOSEPACK) 4 mg package 8 tablet directions. 01/31/2018 methocarbamol (ROBAXIN) Take 1 tablet 20 tablet 0 500 MG tablet (500 mg 8 total) by mouth 2 (two) times daily for 10 days. 03/07/2018 levoFLOXacin (LEVAQUIN) Take 1 tablet 2 tablet 0 250 MG tablet (250 mg 8 total) by mouth every other day for 2 doses. 03/07/2018 metroNIDAZOLE (FLAGYL) Take 1 tablet 9 tablet 0 500 MG tablet (500 mg 8 total) by mouth 3 (three) times daily for 3 days. 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 02/04/2017 Stage 4 chronic kidney disease 10/25/2016 10/25/2016 Acidemia 10/25/2016 Acute on chronic renal failure 10/13/2016 MIKE (acute kidney injury) 09/01/2016 Proteinuria 09/01/2016 Hypertensive emergency 08/31/2016 Cyclical vomiting, intractable 08/31/2016 Acute cystitis without hematuria 08/31/2016 History of Clostridium difficile 08/31/2016 Diarrhea 08/10/2016 ARF (acute renal failure) 05/06/2016 Intractable cyclical vomiting with nausea 05/05/2016 Accelerated hypertension 02/17/2016 Uncontrolled hypertension 02/05/2016 Diabetic ketoacidosis 01/19/2016 Diabetes 01/01/2016 Diabetic gastroparesis associated with type 1 diabetes mellitus 12/05/2015 Uncontrolled diabetes mellitus with hypoglycemia 11/21/2015 Clostridium difficile colitis 11/15/2015 Colitis 11/14/2015 Hyperglycemia 11/03/2015 Hypertensive urgency 08/26/2015 Gastroparesis due to DM 08/26/2015 Intractable nausea and vomiting 08/26/2015 Gastroparesis due to secondary diabetes 07/23/2015 Colitis, acute 05/12/2015 Fever 01/16/2015 DKA (diabetic ketoacidoses) 12/18/2014 HTN (hypertension) 12/18/2014 Exacerbation of Crohn's disease 12/18/2014 Cystitis 12/05/2014 Heart murmur 12/05/2014 Abdominal pain, other specified site 11/28/2014 Malignant hypertension 10/13/2014 Gastroparesis 09/17/2014 Crohn disease 09/17/2014 Gastritis 09/17/2014 Duodenitis 09/17/2014 Gastroenteritis 09/16/2014 Diabetes mellitus Hypertension Bipolar 1 disorder Crohn's disease Overview: diagnosed 2011, colonoscopy at time of diagnosis, treated by Dr. 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) 06/02/2018 [facility] General Internal Medicine - Encounter 06/06/2018 06/02/2018 Travel Jarrett Nevarez MD Patel, Marcia Coppola MD Shortness of breath (Primary Dx); Hyperglycemia; Urinary tract infection without hematuria, site unspecified; Accelerated hypertension 05/17/2018 Hospital General Internal Medicine - Encounter 05/24/2018 05/17/2018 Orders Only General Internal Medicine 05/17/2018 Travel Senia Chawla MD Ahmed, Homaira, MD Crohn's disease of colon without complication (HCC) (Primary Dx); ESRD on dialysis (HCC); Nausea vomiting and diarrhea; 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) 02/28/2018 Emergency General Internal Medicine - 03/04/2018 Lizeth Cuevas DO Muscle spasm (Primary Dx); Mouth pain; Hypertension, unspecified type 01/21/2018 Emergency Emergency Medicine Senia Rodriguez MD Patel, Marcia Coppola MD Nausea and vomiting in adult (Primary Dx); Diabetic gastroparesis (HCC); Essential hypertension; ESRD (end stage renal disease) on dialysis (HCC); Generalized abdominal pain 10/27/2017 Emergency General Internal Medicine - 10/29/2017 after 06/18/2017 Immunizations Name Dates Previously Given Next Due Influenza TIV (IM) 09/15/2014 Influenza Three-TIV PF 09/02/2015 4+YRS Pneumococcal 02/05/2017 Polysaccharide (Pneumovax) Family History Medical History Relation Name Comments Hepatitis Brother Ulcers Brother Relation Name Status Comments Brother Brother Social History Date Tobacco Use Types Packs/Day Years Used Never Smoker Smokeless Tobacco: Never Used Alcohol Use Drinks/Week oz/Week Comments No Sex Assigned at Date Recorded Not on file Industry Job Start Date Occupation Not on file Not on file Not on file Travel End Travel History Travel Start No recent travel history available. Last Filed Vital Signs Time Taken Vital Sign Reading 06/06/2018 5:02 PM [employer] Blood Pressure 136/76 06/06/2018 5:02 PM [employer] Pulse 72 06/06/2018 5:02 PM [employer] Temperature 36.8 C (98.2 F) 06/06/2018 5:02 PM [employer] Respiratory Rate 16 06/06/2018 5:02 PM [employer] Oxygen Saturation 97% 05/24/2018 7:57 AM [employer]OL [employer] Inhaled Oxygen 21% Concentration 06/03/2018 4:22 AM [employer]OL [employer] Weight 51.5 kg (113 lb 7 oz) 06/02/2018 8:28 PM [employer]OL [employer] Height 160 cm (5' 3") 06/03/2018 4:22 AM [employer]IC [employer]OL [employer] Body Mass Index 20.09 Plan of Treatment Health Maintenance Due Date Last Done Comments INFLUENZA VACCINE 04/18/2018 Procedures Comments Procedure Name Priority Date/Time Associated Diagnosis RHYTHM STRIP - SCAN 06/07/2018 3:00 PM [employer]OL [employer] POCT-GLUCOSE METER Routine 06/06/2018 3:47 PM [employer] POCT-GLUCOSE METER Routine 06/06/2018 10:50 AM [employer]IC [employer]OL [employer]ER POCT-GLUCOSE METER Routine 06/06/2018 6:37 AM [employer]IC [employer]OL [employer] CBC W/PLT COUNT & AUTO Routine 06/06/2018 DIFFERENTIAL 4:46 AM [employer] PHOSPHORUS Routine 06/06/2018 4:46 AM [employer]OL [employer] CBC W/PLT COUNT & AUTO Routine 06/06/2018 DIFFERENTIAL 4:46 AM [employer]OL [employer] COMPREHENSIVE METABOLIC Routine 06/06/2018 PANEL 4:46 AM [employer]IC TOOL [employer]KER POCT-GLUCOSE METER Routine 06/05/2018 8:39 PM [employer] POCT-GLUCOSE METER Routine 06/05/2018 4:36 PM [employer] POCT-GLUCOSE METER Routine 06/05/2018 11:34 AM [employer]IC [employer]OL [employer]ER POCT-GLUCOSE METER Routine 06/05/2018 5:41 AM P[employer]OL [employer]ER POCT-GLUCOSE METER Routine 06/04/2018 9:00 PM [employer]OL [employer]ER POCT-GLUCOSE METER Routine 06/04/2018 6:45 PM [employer]OL [employer]ER POCT-GLUCOSE METER Routine 06/04/2018 1:22 PM [employer]IC [employer]OL [employer]ER POCT-GLUCOSE METER Routine 06/04/2018 12:20 PM [employer]IC [employer]OL [employer]ER POCT-GLUCOSE METER Routine 06/04/2018 11:54 AM [employer]IC [employer]OL [employer]ER HEMODIALYSIS INPATIENT Routine 06/04/2018 7:58 AM [employer] POCT-GLUCOSE METER Routine 06/04/2018 6:41 AM [employer]IC [employer]OL [employer]ER POCT-GLUCOSE METER Routine 06/04/2018 5:28 AM P[employer]IC [employer]OL [employer]ER CBC W/PLT COUNT & AUTO Routine 06/04/2018 DIFFERENTIAL 5:22 AM P[employer]IC [employer]OL [employer]ER PHOSPHORUS Routine 06/04/2018 5:22 AM [employer]IC [employer]OL [employer] COMPREHENSIVE METABOLIC Routine 06/04/2018 PANEL 5:22 AM PLASTIC [employer]OL [employer]KER CBC W/PLT COUNT & AUTO Routine 06/04/2018 DIFFERENTIAL 5:22 AM P[employer]IC TOOL [employer]KER POCT-GLUCOSE METER Routine 06/03/2018 8:49 PM PLASTIC [employer]OL [employer]KER REPORT OF PROCEDURE - 06/03/2018 ENDOSCOPY SCAN 4:36 PM [employer]IC [employer]OL [employer]ER POCT-GLUCOSE METER Routine 06/03/2018 4:21 PM [employer]IC [employer]OL [employer]KER POCT-GLUCOSE METER Routine 06/03/2018 11:05 AM PLASTIC TOOL [employer]KER POCT-GLUCOSE METER Routine 06/03/2018 6:26 [address] [address] [address] ABDOMEN/PELVIS WITH IV STAT 06/03/2018 CONTRAST 3:14 AM [employer]IC [employer]OL [employer]ER HCG, SERUM, QUALITATIVE STAT 06/03/2018 2:14 AM P[employer]IC [employer]OL [employer]ER PT/APTT STAT 06/02/2018 11:39 PM [employer]IC [employer]OL [employer]ER LACTIC ACID, VENOUS, STAT 06/02/2018 WHOLE BLOOD 11:39 PM [employer] MAGNESIUM STAT 06/02/2018 11:38 PM [employer]IC [employer]OL [employer]ER TROPONIN I STAT 06/02/2018 11:38 PM [employer]LASTIC [employer]OL [employer]ER LIPASE STAT 06/02/2018 11:38 PM [employer]LASTIC [employer]OL [employer]ER COMPREHENSIVE METABOLIC STAT 06/02/2018 PANEL 11:38 PM PLASTIC [employer]OL [employer]KER CBC W/PLT COUNT & AUTO STAT 06/02/2018 DIFFERENTIAL 11:31 PM [employer]IC [employer]OL [employer]ER CBC W/PLT COUNT & AUTO STAT 06/02/2018 DIFFERENTIAL 11:31 PM [employer]IC [employer]OL [employer] RAPID INFLUENZA A&B STAT 06/02/2018 SCREEN 10:57 PM P[employer]IC [employer]OL [employer]KER XR CHEST 1 VIEW STAT 06/02/2018 PORTABLE/BEDSIDE 9:00 PM PLASTIC TOOL MAKER ED ECG INTERPRETATION Routine 06/02/2018 8:42 PM [employer]IC [employer]OL [employer]KER RHYTHM STRIP - SCAN 05/26/2018 11:55 AM PLASTIC TOOL MAKER REPORT OF PROCEDURE - 05/26/2018 ENDOSCOPY SCAN 11:55 AM PLASTIC TOOL [employer]KER POCT-GLUCOSE METER Routine 05/24/2018 4:18 PM [employer]OL [employer]ER POCT-GLUCOSE METER Routine 05/24/2018 11:24 AM [employer] HEMODIALYSIS INPATIENT Routine 05/24/2018 8:22 AM P[employer]IC [employer]OL [employer]KER POCT-GLUCOSE METER Routine 05/24/2018 5:27 AM [employer]OL [employer]KER POCT-GLUCOSE METER Routine 05/23/2018 8:36 PM [employer]OL [employer]ER POCT-GLUCOSE METER Routine 05/23/2018 4:03 PM [employer]OL [employer]ER POCT-GLUCOSE METER Routine 05/23/2018 11:21 AM PLASTIC [employer]OL [employer]KER POCT-GLUCOSE METER Routine 05/23/2018 6:43 AM P[employer]IC [employer]OL [employer]KER CBC W/PLT COUNT & AUTO Routine 05/23/2018 DIFFERENTIAL 5:23 AM PLASTIC [employer]OL [employer]KER BASIC METABOLIC PANEL (7) Routine 05/23/2018 5:23 AM PLASTIC [employer]OL [employer]KER CBC W/PLT COUNT & AUTO Routine 05/23/2018 DIFFERENTIAL 5:23 AM PLASTIC TOOL MAKER POCT-GLUCOSE METER Routine 05/22/2018 8:50 PM [employer]OL [employer]KER POCT-GLUCOSE METER Routine 05/22/2018 4:47 PM [employer]OL [employer]KER POCT-GLUCOSE METER Routine 05/22/2018 11:49 AM P[employer]IC [employer]OL [employer]KER POCT-GLUCOSE METER Routine 05/22/2018 6:10 AM PLASTIC TOOL [employer]KER CBC W/PLT COUNT & AUTO Routine 05/22/2018 DIFFERENTIAL 4:55 AM [employer]OL [employer]KER BASIC METABOLIC PANEL (7) Routine 05/22/2018 4:55 AM PLASTIC TOOL [employer]KER CBC W/PLT COUNT & AUTO Routine 05/22/2018 DIFFERENTIAL 4:55 AM [employer]IC TOOL [employer]KER POCT-GLUCOSE METER Routine 05/21/2018 9:04 PM CDT POCT-GLUCOSE METER Routine 05/21/2018 4:40 PM CDT POCT-GLUCOSE METER Routine 05/21/2018 12:15 PM CDT HEMODIALYSIS INPATIENT Routine 05/21/2018 9:42 AM CDT CBC W/PLT COUNT & AUTO Routine 05/21/2018 DIFFERENTIAL 5:03 AM CDT PHOSPHORUS Routine 05/21/2018 5:03 AM CDT CBC W/PLT COUNT & AUTO Routine 05/21/2018 DIFFERENTIAL 5:03 AM CDT COMPREHENSIVE METABOLIC Routine 05/21/2018 PANEL 5:03 AM CDT POCT-GLUCOSE METER Routine 05/21/2018 4:08 AM CDT POCT-GLUCOSE METER Routine 05/20/2018 8:10 PM CDT POCT-GLUCOSE METER Routine 05/20/2018 4:44 PM CDT POCT-GLUCOSE METER Routine 05/20/2018 11:38 AM CDT HEMODIALYSIS INPATIENT Routine 05/20/2018 9:34 AM CDT POCT-GLUCOSE METER Routine 05/20/2018 6:24 AM CDT CBC W/PLT COUNT & AUTO Routine 05/20/2018 DIFFERENTIAL 4:37 AM CDT BASIC METABOLIC PANEL (7) Routine 05/20/2018 4:37 AM CDT CBC W/PLT COUNT & AUTO Routine 05/20/2018 DIFFERENTIAL 4:37 AM CDT POCT-GLUCOSE METER Routine 05/19/2018 11:23 PM CDT POCT-GLUCOSE METER Routine 05/19/2018 10:[address] CHEST WITHOUT IV Routine 05/19/2018 CONTRAST 9:53 PM CDT POCT-GLUCOSE METER Routine 05/19/2018 8:48 PM CDT BLOOD GAS, ARTERIAL Routine 05/19/2018 8:04 PM CDT POCT-GLUCOSE METER Routine 05/19/2018 4:14 PM CDT POCT-GLUCOSE METER Routine 05/19/2018 11:30 AM CDT CBC W/PLT COUNT & AUTO Routine 05/19/2018 DIFFERENTIAL 6:28 AM CDT PHOSPHORUS Routine 05/19/2018 6:28 AM CDT COMPREHENSIVE METABOLIC Routine 05/19/2018 PANEL 6:28 AM CDT CBC W/PLT COUNT & AUTO Routine 05/19/2018 DIFFERENTIAL 6:28 AM CDT POCT-GLUCOSE METER Routine 05/19/2018 6:16 AM CDT POCT-GLUCOSE METER Routine 05/19/2018 4:59 AM CDT POCT-GLUCOSE METER Routine 05/19/2018 4:33 AM CDT POCT-GLUCOSE METER Routine 05/18/2018 9:08 PM CDT POCT-GLUCOSE METER Routine 05/18/2018 4:13 PM CDT POCT-GLUCOSE METER Routine 05/18/2018 11:41 AM CDT HEPATITIS B SURFACE Routine 05/18/2018 ANTIGEN 9:18 AM CDT CBC W/PLT COUNT & AUTO STAT 05/18/2018 DIFFERENTIAL 6:29 AM CDT CBC W/PLT COUNT & AUTO STAT 05/18/2018 DIFFERENTIAL 6:29 AM CDT BASIC METABOLIC PANEL (7) STAT 05/18/2018 6:29 AM CDT POCT-GLUCOSE METER Routine 05/18/2018 6:15 AM CDT POCT-GLUCOSE METER Routine 05/17/2018 8:42 PM CDT POCT-GLUCOSE METER Routine 05/17/2018 6:20 PM CDT BLOOD CULTURE STAT 05/17/2018 4:35 PM CDT LACTIC ACID, VENOUS, STAT 05/17/2018 WHOLE BLOOD 4:04 PM CDT BLOOD CULTURE STAT 05/17/2018 4:[address] ABDOMEN/PELVIS WITHOUT STAT 05/17/2018 IV CONTRAST 2:00 PM CDT URINALYSIS W/ MICROSCOPIC STAT 05/17/2018 11:38 AM CDT CBC W/PLT COUNT & AUTO STAT 05/17/2018 DIFFERENTIAL 11:20 AM CDT BASIC METABOLIC PANEL (7) STAT 05/17/2018 11:20 AM CDT CBC W/PLT COUNT & AUTO STAT 05/17/2018 DIFFERENTIAL 11:20 AM CDT XR CHEST 1 VIEW STAT 05/17/2018 PORTABLE/BEDSIDE 11:00 AM CDT ED ECG INTERPRETATION Routine 05/17/2018 10:48 AM CDT ECHOCARDIOGRAM REPORT - 03/26/2018 SCAN 12:20 PM CDT POCT-GLUCOSE METER Routine 03/04/2018 5:42 AM CDT FERRITIN Routine 03/04/2018 5:20 AM CDT CBC W/PLT COUNT & AUTO Routine 03/04/2018 DIFFERENTIAL 5:19 AM CDT IRON, TIBC, % SAT. Routine 03/04/2018 (WITHOUT FERRITIN) 5:19 AM CDT PHOSPHORUS Routine 03/04/2018 5:19 AM CDT COMPREHENSIVE METABOLIC Routine 03/04/2018 PANEL 5:19 AM CDT CBC W/PLT COUNT & AUTO Routine 03/04/2018 DIFFERENTIAL 5:19 AM CDT POCT-GLUCOSE METER Routine 03/04/2018 1:43 AM CDT POCT-GLUCOSE METER Routine 03/04/2018 12:14 AM CDT POCT-GLUCOSE METER Routine 03/03/2018 4:35 PM CDT 2D ECHO W/ DOPPLER Routine 03/03/2018 (CW/PW/COLOR) 1:04 PM CDT POCT-GLUCOSE METER Routine 03/03/2018 11:13 AM CDT PTH, INTACT Routine 03/03/2018 10:04 AM CDT POCT-GLUCOSE METER Routine 03/03/2018 6:40 AM CDT CBC W/PLT COUNT & AUTO Routine 03/03/2018 DIFFERENTIAL 5:01 AM CDT COMPREHENSIVE METABOLIC Routine 03/03/2018 PANEL 5:01 AM CDT CBC W/PLT COUNT & AUTO Routine 03/03/2018 DIFFERENTIAL 5:01 AM CDT POCT-GLUCOSE METER Routine 03/02/2018 9:05 PM CDT POCT-GLUCOSE METER Routine 03/02/2018 5:26 PM CDT POCT-GLUCOSE METER Routine 03/02/2018 11:33 AM CDT CBC W/PLT COUNT & AUTO Routine 03/02/2018 DIFFERENTIAL 6:01 AM CDT COMPREHENSIVE METABOLIC Routine 03/02/2018 PANEL 6:01 AM CDT CBC W/PLT COUNT & AUTO Routine 03/02/2018 DIFFERENTIAL 6:01 AM CDT POCT-GLUCOSE METER Routine 03/01/2018 11:15 PM CDT HEPATITIS B SURFACE STAT 03/01/2018 ANTIGEN 9:50 AM CDT HEPATITIS B SURFACE STAT 03/01/2018 ANTIBODY 9:[address] ABDOMEN/PELVIS WITHOUT STAT 03/01/2018 IV CONTRAST 1:20 AM CDT HCG, SERUM, QUALITATIVE STAT 03/01/2018 12:42 AM CDT KETONE, BLOOD STAT 03/01/2018 12:42 AM CDT BLOOD GAS, VENOUS STAT 03/01/2018 12:42 AM CDT (MANUAL DIFFERENTIAL) STAT 03/01/2018 12:02 AM CDT CBC W/PLT COUNT & AUTO STAT 03/01/2018 DIFFERENTIAL 12:02 AM CDT LIPASE STAT 03/01/2018 12:02 AM CDT COMPREHENSIVE METABOLIC STAT 03/01/2018 PANEL 12:02 AM CDT CBC W/PLT COUNT & AUTO STAT 03/01/2018 DIFFERENTIAL 12:02 AM CDT XR MANDIBLE LESS THAN 4 STAT 01/21/2018 VIEWS 1:36 PM CDT POCT-GLUCOSE METER Routine 10/29/2017 12:36 PM CDT POCT-GLUCOSE METER Routine 10/29/2017 5:59 AM CDT CBC W/PLT COUNT & AUTO Routine 10/29/2017 DIFFERENTIAL 5:02 AM CDT BASIC METABOLIC PANEL (7) Routine 10/29/2017 5:02 AM CDT CBC W/PLT COUNT & AUTO Routine 10/29/2017 DIFFERENTIAL 5:02 AM CDT POCT-GLUCOSE METER Routine 10/28/2017 8:51 PM CDT POCT-GLUCOSE METER Routine 10/28/2017 4:20 PM CDT HEPATITIS B SURFACE Routine 10/28/2017 ANTIGEN 3:53 PM CDT HEPATITIS B CORE Routine 10/28/2017 ANTIBODY, TOTAL 3:53 PM CDT HEPATITIS B SURFACE Routine 10/28/2017 ANTIBODY 3:53 PM CDT POCT-GLUCOSE METER Routine 10/28/2017 11:20 AM CDT POCT-GLUCOSE METER Routine 10/28/2017 6:04 AM CDT CBC W/PLT COUNT & AUTO STAT 10/28/2017 DIFFERENTIAL 5:25 AM CDT CBC W/PLT COUNT & AUTO STAT 10/28/2017 DIFFERENTIAL 5:25 AM CDT LIPID PANEL STAT 10/28/2017 5:25 AM CDT HEMOGLOBIN A1C STAT 10/28/2017 5:25 AM CDT BASIC METABOLIC PANEL (7) STAT 10/28/2017 5:25 AM CDT POCT-GLUCOSE METER Routine 10/27/2017 8:20 PM CDT HCG, QUANTITATIVE, STAT 10/27/2017 1:53 PM CDT CBC W/PLT COUNT & AUTO STAT 10/27/2017 DIFFERENTIAL 1:36 PM CDT KETONE, BLOOD STAT 10/27/2017 1:36 PM CDT LIPASE STAT 10/27/2017 1:36 PM CDT HEPATIC FUNCTION PANEL STAT 10/27/2017 1:36 PM CDT BASIC METABOLIC PANEL (7) STAT 10/27/2017 1:36 PM CDT CBC W/PLT COUNT & AUTO STAT 10/27/2017 DIFFERENTIAL 1:36 PM CDT after 06/18/2017 Results * RHYTHM STRIP - SCAN (06/07/2018 3:00 PM [employer]) Only the most recent of 2 results within the time period is included. Narrative Performed At * POC-Glucose meter (06/06/2018 3:47 PM PLASTIC [employer]OL [employer]KER) Only the most recent of 68 results within the time period is included. POC-Glucose Meter 97Comment: TESTED AT [facility] [address] 70 - 110 mg/dL [facility] [address] [facility] [id number] Specimen Blood Performing Organization Address City/State/Zipcode Phone Number [facility] [address] [place] [address] [facility] * CBC with platelet count + automated diff (06/06/2018 4:46 AM PLASTIC TOOL MAKER) Only the most recent of 17 results within the time period is included. WBC 3.8 (L) 4.0 - 10.0 K/L [facility] RBC 3.19 (L) 4.00 - 5.00 M/L [facility] Hemoglobin 9.0 (L) 12.0 - 15.5 GM/DL [facility] Hematocrit 29.4 (L) 36.0 - 46.0 % [facility] MCV 92.2 82.0 - 99.0 fL [facility] MCH 28.2 27.0 - 33.0 pg [facility] MCHC 30.6 (L) 32.0 - 36.0 GM/DL [facility] RDW 15.6 (H) 12.0 - 15.0 % [facility] Platelets 186 150 - 430 K/CU MM [facility] MPV 9.8 6.0 - 11.5 fL [facility] nRBC 0 0 - 0 /100 WBC [facility] % Neutros 35 % [facility] % Lymphs 49 % [facility] % Monos 10 % [facility] % Eos 6 % [facility] % Baso 0 % [facility] # Neutros 1.32 (L) 1.80 - 8.00 K/L [facility] # Lymphs 1.85 1.48 - 4.50 K/L [facility] # Monos 0.36 0.00 - 1.30 K/L [facility] # Eos 0.21 0.00 - 0.50 K/L [facility] # Baso 0.01 0.00 - 0.20 K/L [facility] Immature 1 (H) 0 - 0 % [facility] Granulocytes-[facility] Specimen Blood Performing Organization Address City/State/Zipcode Phone Number [facility] [address] [place], [place] [address] * Phosphorus (06/06/2018 4:46 AM PLASTIC TOOL [employer]KER) Only the most recent of 5 results within the time period is included. Phosphorus 7.8 (H) 2.5 - 4.5 mg/dL [facility] Specimen Blood Performing Organization Address City/[facility]/Zipcode Phone Number [facility] [address] [place], [place] [phone] * Comprehensive metabolic panel (06/06/2018 4:46 AM PLASTIC TOOL MAKER) Only the most recent of 9 results within the time period is included. Protein, Total 6.9 6.0 - 8.5 gm/dL [facility] Albumin 3.4 (L) 3.5 - 5.0 g/dL [facility] Alkaline Phosphatase 60 30 - 115 U/L [facility] Total Bilirubin 0.3 0.1 - 1.2 mg/dL [facility] Sodium 134 (L) 135 - 148 meq/L [facility] Potassium 4.7 3.6 - 5.5 meq/L [facility] Chloride 95 (L) 98 - 106 meq/L [facility] CO2 27 20 - 29 meq/L [facility] BUN 44 (H) 10 - 26 mg/dL [facility] Creatinine 5.54 (H) 0.50 - 1.20 mg/dL [facility] Glucose 182 (H) 70 - 110 mg/dL [facility] Calcium 9.8 8.5 - 10.5 mg/dL [facility] AST 12 5 - 40 U/L [facility] ALT 11 5 - 50 U/L [facility] EGFR 11Comment: ESTIMATED GFR IS mL/min/1.73 sq m [facility] NOT ACCURATE CREATININE LABORATORY CLEARANCE IN PREDICTING GLOMERULAR FILTRATION RATE. ESTIMATED GFR IS NOT APPLICABLE FOR DIALYSIS PATIENTS. Specimen Blood Performing Organization Address City/State/Zipcode Phone Number [facility] [address] [place] [address] * EKG-SCANNED (06/03/2018 4:36 PM PLASTIC TOOL MAKER) Only the most recent of 2 results within the time period is included. Narrative Performed At * CT abdomen/pelvis with IV contrast (06/03/2018 3:14 AM PLASTIC TOOL MAKER) Narrative Performed At FINAL REPORT [place] CLINICAL HISTORY: Acute abdominal pain. FINDINGS: Multiple axial images of the abdomen and pelvis were performed after the uncomplicated administration of IV contrast. Oral contrast was not given. This exam was performed according to our departmental dose-optimization program, which includes automated exposure control, adjustment of the mA and/or kV according to patient size and/or use of the iterative reconstruction technique. Comparison: 05/17/2018 Lower chest: Clear lungs. No pleural effusion or pneumothorax. Visualized cardiac contours normal. Liver: No significant findings. Gallbladder and biliary tree: Previous cholecystectomy Spleen: No significant findings. Adrenal Glands: No significant findings. 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 Pancreas: No significant findings. Bowel: No significant findings. Appendix: Nonvisualized. No pericecal inflammatory changes. Bladder: Diffuse bladder wall thickening Major vascular structures: No significant findings. Reproductive organs: No significant findings. Other: No free air, fluid or adenopathy Skeleton: No acute bony abnormality. IMPRESSION: Diffuse bladder wall thickening, a nonspecific finding which can be seen with chronic infection or inflammation. Please correlate with urinalysis. An infiltrative bladder lesion is less likely. Urology follow-up can be obtained, if indicated. Signed: Douglas Maldonado MD Report Verified Date/Time:06/03/2018 03:21:21 Reading Location: [address] Reading Room Procedure Note Interface, External Ris In - 06/03/2018 3:23 AM P[employer]IC [employer]OL [employer]ER FINAL REPORT CLINICAL HISTORY: Acute abdominal pain. FINDINGS: Multiple axial images of the abdomen and pelvis were performed after the uncomplicated administration of IV contrast. Oral contrast was not given. This exam was performed according to our departmental dose-optimization program, which includes automated exposure control, adjustment of the mA and/or kV according to patient size and/or use of the iterative reconstruction technique. Comparison: 05/17/2018 Lower chest: Clear lungs. No pleural effusion or pneumothorax. Visualized cardiac contours normal. Liver: No significant findings. Gallbladder and biliary tree: Previous cholecystectomy Spleen: No significant findings. Adrenal Glands: No significant findings. 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 Pancreas: No significant findings. Bowel: No significant findings. Appendix: Nonvisualized. No pericecal inflammatory changes. Bladder: Diffuse bladder wall thickening Major vascular structures: No significant findings. Reproductive organs: No significant findings. Other: No free air, fluid or adenopathy Skeleton: No acute bony abnormality. IMPRESSION: Diffuse bladder wall thickening, a nonspecific finding which can be seen with chronic infection or inflammation. Please correlate with urinalysis. An infiltrative bladder lesion is less likely. Urology follow-up can be obtained, if indicated. Signed: Douglas Maldonado MD Report Verified Date/Time: 06/03/2018 03:21:21 Reading Location: [address] Reading Room Performing Organization Address City/State/Zipcode Phone Number RIS * hCG, serum, qualitative (06/03/2018 2:14 AM PLASTIC TOOL MAKER) Only the most recent of 2 results within the time period is included. Preg Test, Serum Negative [facility] Specimen Body Fluid Performing Organization Address City/State/Zipcode Phone Number [facility] [address] [place] [phone] * PT/aPTT (06/02/2018 11:39 PM PLASTIC TOOL MAKER) Protime 11.0 9.3 - 12.0 sec [facility] INR 1.0 <=5.9 [facility] PTT 30.1 23.0 - 35.0 sec [facility] Specimen Blood Narrative Performed At RECOMMENDED COUMADIN/WARFARIN INR THERAPY RANGES [facility] STAND[facility] DOSE: 2.0 - 3.0 Includes: PROPHYLAXIS for venous thrombosis, LABORATORY systemic embolization; TREATMENT for venous thrombosis and/or pulmonary embolus. HIGH RISK: Target INR is 2.5-3.5 for patients with mechanical heart valves. Final Information (Auto Output) Final Information (Auto Output) Final Information (Auto Output) Performing Organization Address [facility] [place] [facility] Phone Number [address] [phone] * Lactic acid, venous, whole blood (06/02/2018 11:39 PM PLASTIC TOOL MAKER) Only the most recent of 2 results within the time period is included. Lactate, Venous 0.6 0.5 - 2.0 mmol/L [facility] Specimen Blood Performing Organization Address [facility] [place] [facility] Phone Number [facility] [address] [place] [phone] * Troponin I (06/02/2018 11:38 PM PLASTIC TOOL MAKER) Troponin I 0.04 0.00 - 0.15 ng/mL [facility] Specimen Blood Performing Organization Address [facility] [place] [facility] Phone Number [facility] [address] [place] [phone] * Magnesium (06/02/2018 11:38 PM PLASTIC TOOL MAKER) Magnesium 2.4 1.5 - 3.0 mg/dL [facility] Specimen Blood Performing Organization Address [facility] [place] [facility] Phone Number [facility] [address] [place] [phone] * Lipase (06/02/2018 11:38 PM PLASTIC TOOL MAKER) Only the most recent of 3 results within the time period is included. Lipase 14 6 - 51 U/L [facility] Specimen Blood Performing Organization Address [facility] Phone [facility] [address] [place] [address] * Rapid Influenza A&B Screen (06/02/2018 10:57 PM PLASTIC TOOL MAKER) Rapid Influenza A Antigen NEGATIVE LABORATORY FINDING Negative, Inconclusive [facility] Rapid influenza B Antigen NEGATIVE LABORATORY FINDING Negative, Inconclusive [facility] Specimen Nasal - Nasopharyngeal Swab Performing Organization Address [facility] [place] [facility] Phone Number [facility] [address] [place] [address] * XR chest 1 view portable / bedside (06/02/2018 9:00 PM PLASTIC TOOL MAKER) Only the most recent of 2 results within the time period is included. Narrative Performed At FINAL REPORT [facility] Chest one view AP 06/02/2018 9:03 PM CLINICAL HISTORY: chest pain COMPARISON: 05/17/2018 FINDINGS: The lungs are clear. Cardiomediastinal contours are within normal limits. The central pulmonary vasculature is not engorged. A right chest port is present. IMPRESSION: Unremarkable frontal chest radiograph. Signed: Mayank Mejia MD Report Verified Date/Time:06/02/2018 21:03:59 Reading Location: [facility] Radiology Reading Room Procedure Note Interface, External [facility]is In - 06/02/2018 9:14 PM PLASTIC TOOL MAKER FINAL REPORT Chest one view AP 06/02/2018 9:03 PM CLINICAL HISTORY: chest pain COMPARISON: 05/17/2018 FINDINGS: The lungs are clear. Cardiomediastinal contours are within normal limits. The central pulmonary vasculature is not engorged. A right chest port is present. IMPRESSION: Unremarkable frontal chest radiograph. Signed: Mayank Mejia MD Report Verified Date/Time: 06/02/2018 21:03:59 Reading Location: [facility] Radiology Reading Room Performing Organization Address [facility] Phone Number [facility] * ECG/EKG Interpretation (06/02/2018 8:42 PM PLASTIC TOOL MAKER) Only the most recent of 2 results within the time period is included. Narrative Performed At Bud Pruitt MD 06/04/20188:30 PM ECG/EKG Interpretation Date/Time: 06/02/2018 10:34 PM Performed by: Bud Pruitt MD Authorized by: Bud Pruitt MD The ECG was interpreted by ED physician. The ECG is interpreted as sinus tachycardia. Rate is tachycardic. Heart rate is 112 BPM. Conduction: conduction normal. ST segments normal. T waves abnormal. [place] is normal. Other findings include: LVH. Clinical Impression: abnormal ECGECG reviewed and does not meet STEMI criteria. Patient tolerance: Patient tolerated the procedure well with no immediate complications * Basic Metabolic Panel (05/23/2018 5:23 AM PLASTIC TOOL MAKER) Only the most recent of 8 results within the time period is included. Sodium 134 (L) 135 - 148 meq/L [facility] Potassium 4.7 3.6 - 5.5 meq/L [facility] Chloride 96 (L) 98 - 106 meq/L [facility] CO2 25 20 - 29 meq/L [facility] BUN 32 (H) 10 - 26 mg/dL [facility] Creatinine 5.48 (H) 0.50 - 1.20 mg/dL [facility] Glucose 196 (H) 70 - 110 mg/dL [facility] Calcium 10.2 8.5 - 10.5 mg/dL [facility] EGFR 11Comment: ESTIMATED GFR IS mL/min/1.73 sq m [facility] NOT ACCURATE CREATININE LABORATORY CLEARANCE IN PREDICTING GLOMERULAR FILTRATION RATE. ESTIMATED GFR IS NOT APPLICABLE FOR DIALYSIS PATIENTS. Specimen Blood Performing Organization Address City/State/Zipcode Phone Number [facility] [address] [place], [place] [phone] * CT chest without IV contrast (05/19/2018 9:53 PM CDT) Narrative Performed At FINAL REPORT [facility] DOSE REDUCTION: The examination was performed according to departmental dose-optimization program which includes automated exposure control, adjustment of the mA and/or kV according to patient size and/or use of iterative reconstruction technique. TECHNIQUE: CT of the chest without intravenous contrast. COMPARISON: CT of the abdomen and pelvis, 05/17/2018 Discussion: Curvilinear densities in the left lower lobe most likely due to atelectasis or scarring. Otherwise lungs are clear. No pleural effusions. No consolidation or airspace opacities. No interstitial disease or bronchiectasis. Right-sided chest port in place. Noncontrast appearance of the aorta and great vessels is unremarkable. No significant mediastinal or hilar lymphadenopathy. Heart appearsenlarged. There is trace pericardial effusion. Mild soft tissue anasarca and subcutaneous venous collaterals are seen. In the upper abdomen postcholecystectomy changes are noted. No acute skeletal abnormality. IMPRESSION: 1. Left lower lobe curvilinear densities likely due to atelectasis or scarring. Otherwise no acute CT abnormality in the chest. 2. Cardiomegaly. Trace pericardial effusion. Signed: Roly King MD Report Verified Date/Time:05/19/2018 22:12:17 Reading Location: [facility] Mammo Reading Room Procedure Note Interface, External Ris In - 05/19/2018 10:14 PM CDT FINAL REPORT DOSE REDUCTION: The examination was performed according to departmental dose-optimization program which includes automated exposure control, adjustment of the mA and/or kV according to patient size and/or use of iterative reconstruction technique. TECHNIQUE: CT of the chest without intravenous contrast. COMPARISON: CT of the abdomen and pelvis, 05/17/2018 Discussion: Curvilinear densities in the left lower lobe most likely due to atelectasis or scarring. Otherwise lungs are clear. No pleural effusions. No consolidation or airspace opacities. No interstitial disease or bronchiectasis. Right-sided chest port in place. Noncontrast appearance of the aorta and great vessels is unremarkable. No significant mediastinal or hilar lymphadenopathy. Heart appears enlarged. There is trace pericardial effusion. Mild soft tissue anasarca and subcutaneous venous collaterals are seen. In the upper abdomen postcholecystectomy changes are noted. No acute skeletal abnormality. IMPRESSION: 1. Left lower lobe curvilinear densities likely due to atelectasis or scarring. Otherwise no acute CT abnormality in the chest. 2. Cardiomegaly. Trace pericardial effusion. Signed: Roly King MD Report Verified Date/Time: 05/19/2018 22:12:17 Reading Location: [facility] Mammo Reading Room Performing Organization Address City/[facility]/CQuot[employer]code Phone Number [facility] * Blood gas, arterial (05/19/2018 8:04 PM CDT) pH, Arterial 7.42 7.35 - 7.[address] [facility] pCO2, Arterial 41 35 - 45 mm Hg [facility] pO2, Arterial 94 (H) 80 - 90 mm Hg [facility] O2 Sat, Arterial 97.3 (H) 96.0 - 97.0 % [facility] HCO3, Arterial 26 21 - 29 mmol/L [facility] Base Excess, Arterial 1.0 -2.0 - 3.0 mmol/L [facility] Patient Temperature 37.[address] [facility] FIO2 [address] [facility] Specimen Blood, Arterial - Arm, Right Performing Organization Address [facility] Phone Number [address] [phone] * Hepatitis B surface antigen (05/18/2018 9:18 AM CDT) Only the most recent of 3 results within the time period is included. hepatitis B Surface Ag NON-REACTIVE Nonreactive [facility] Specimen Blood Performing Organization Address [facility] Phone Number [address] [phone] * Blood culture (05/17/2018 4:35 PM CDT) Only the most recent of 2 results within the time period is included. Result No growth in 5 days [facility] Specimen Blood - Central Venous Line Performing Organization Address [facility] Phone Number [address] [phone] * CT abdomen/pelvis without iv contrast (05/17/2018 2:00 PM CDT) Only the most recent of 2 results within the time period is included. Narrative Performed At FINAL REPORT [place] ABDOMINAL AND PELVIS CT DATED 05/17/2018 CLINICAL INFORMATION:diffuse abd pain diffuse abd pain TECHNIQUE:Axial images of the abdomen and pelvis were obtained from diaphragm to the pubic symphysis without contrast. This exam was performed according to our departmental dose-optimization program, which includes automated exposure control, adjustment of the mA and/or kV according to patient size and/or use of interactive reconstruction technique. COMMENT: There is small bilateral pleural effusion. Groundglass pulmonary parenchymal disease is seen in the visualized lung bases. Differential diagnosis for the groundglass pulmonary parenchymal disease is the following: usual interstitial pneumonia, nonspecific interstitial pneumonitis, desquamative interstitial pneumonia, hypersensitivity pneumonitis, pulmonary edema or pulmonary hemorrhage. Liver and spleen are normal in size without focal abnormality. Gallbladder is surgically absent. No biliary dilatation is noted. Pancreas and adrenals are unremarkable. Both kidneys are not visualized. A transplanted kidney is seen in the right lower quadrant abdomen. The small and large bowel are suboptimally evaluated secondary to lack of GI and intravenous contrast. Large amount fecal material is seen in the large bowel suggestive of constipation. Small bowel and appendix are normal in caliber. Uterus is normal in size. Both ovaries are not well seen. Trace amount of free fluid is seen in the pelvis. IMPRESSION: 1. Bilateral pleural effusion. 2. Airspace disease in both lung bases. Differential as described above but most likely secondary to pulmonary edema or pneumonia. Please correlate clinically. 3. Constipation. Signed: Lupillo Hernandez MD Report Verified Date/Time:05/17/2018 14:20:12 Reading Location: [address] Body Reading Room Procedure Note Interface, External Ris In - 05/17/2018 2:22 PM CDT FINAL REPORT ABDOMINAL AND PELVIS CT DATED 05/17/2018 CLINICAL INFORMATION: diffuse abd pain diffuse abd pain TECHNIQUE: Axial images of the abdomen and pelvis were obtained from diaphragm to the pubic symphysis without contrast. This exam was performed according to our departmental dose-optimization program, which includes automated exposure control, adjustment of the mA and/or kV according to patient size and/or use of interactive reconstruction technique. COMMENT: There is small bilateral pleural effusion. [place]glass pulmonary parenchymal disease is seen in the visualized lung bases. Differential diagnosis for the groundglass pulmonary parenchymal disease is the following: usual interstitial pneumonia, nonspecific interstitial pneumonitis, desquamative interstitial pneumonia, hypersensitivity pneumonitis, pulmonary edema or pulmonary hemorrhage. Liver and spleen are normal in size without focal abnormality. Gallbladder is surgically absent. No biliary dilatation is noted. Pancreas and adrenals are unremarkable. Both kidneys are not visualized. A transplanted kidney is seen in the right lower quadrant abdomen. The small and large bowel are suboptimally evaluated secondary to lack of GI and intravenous contrast. Large amount fecal material is seen in the large bowel suggestive of constipation. Small bowel and appendix are normal in caliber. Uterus is normal in size. Both ovaries are not well seen. Trace amount of free fluid is seen in the pelvis. IMPRESSION: 1. Bilateral pleural effusion. 2. Airspace disease in both lung bases. Differential as described above but most likely secondary to pulmonary edema or pneumonia. Please correlate clinically. 3. Constipation. Signed: Lupillo Hernandez MD Report Verified Date/Time: 05/17/2018 14:20:12 Reading Location: [facility] [id number] CT Body Reading Room Performing Organization Address City/State/Zipcode Phone Number [facility] * Urinalysis w/Microscopic (05/17/2018 11:38 AM CDT) Color, UA Yellow [facility] Clarity, UA Slightly Cloudy [facility] Specific [place], UA 1.015 1.001 - 1.035 [facility] pH, UA 8.0 5.0 - 8.0 [facility] Protein, UA >=300 mg/dL (A) Negative [facility] Glucose, UA >=1000 mg/dL (A) Negative [facility] Ketones, UA Negative Negative [facility] Bilirubin, UA Negative Negative [facility] Blood, UA Trace (A) Negative [facility] Nitrite, UA Negative Negative [facility] Leukocytes, UA Negative Negative [facility] Urobilinogen, UA 0.2 0.2 - 1.0 mg/dL [facility] Bacteria, UA Many [facility] RBC, UA <5 /HPF [facility] WBC, UA 5-10 /HPF [facility] SQUAMOUS EPITHELIAL 5-10 /HPF [facility] Specimen Source [facility] Specimen Urine - Urine, Voided Performing Organization Address City/State/Zipcode Phone Number [facility] [address] [place], [place] [phone] * ECHOCARDIOGRAM REPORT - SCAN (03/26/2018 12:20 PM CDT) Narrative Performed At * Ferritin (03/04/2018 5:20 AM CDT) Ferritin 472 (H) 10 - 291 ng/mL [facility] Specimen Blood Performing Organization Address City/[facility]/Zipcode Phone Number [facility] [place], [place] [phone] [facility] [address] * Iron, TIBC, % sat. (without ferritin) (03/04/2018 5:19 AM CDT) Iron 84 40 - 160 ug/dL [facility] TIBC 240 (L) 250 - 450 ug/dL [facility] Iron % Saturation 35 20 - 55 % [facility] Specimen Blood Performing Organization Address City/[facility]/Zipcode Phone Number [facility] [address] [place] [address] 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 Height: 62 inches Weight: 53.98 kg (119 lbs) BSA: 1.53 m^2 BMI: 21.77 kg/m^2 HR: 98 bpm BP: 206/128 mmHg Signature Findings Technical Quality: Technically good exam. Left Ventricle Moderate concentric LV hypertrophy. The left ventricle is chamber size (by vol index) is normal. All of the LV segments contract normally . Estimated LVEF by qualitative assessment is normal (55-60%) . Left AtriumNormal size left atrium. Right VentricleNormal right ventricle structure and function. Right Atrium Normal right atrium. Atrial SeptumNormal interatrial septum by available views. Aortic Valve Aortic valve is likely trileaflet and opens normally. No evidence of aortic regurgitation. Mitral Valve Normal MV structure. No significant mitral regurgitation. Tricuspid ValveTV structure is normal. No evidence of tricuspid regurgitation. Pulmonic Valve Normal PV structure. No evidence of pulmonary regurgitation. AortaAortic root size (SInus of Valsalva diameter) is normal . PericardiumA trivial pericardial effusion is present . IVC/SVC/PA/PV/PleuralThe inferior vena cava size is normal . The estimated RA pressure by IVC dynamics 0-5mmHg . Chambers/Structures Left Atrium LA Dimension: 3 cm Left Ventricle LVIDd: 3.7 cmLVEDV:50.7 ml LVIDs: 2.43 cm LVESV:14.3 ml LV Septum Diastolic: 1.06 cm LVEF 2D Cube: 71.8 % LV PW Diastolic: 1.46 cm LV FS: 34.3 % LVOT Diameter: 1.6 cm LVEF: 71.8 % Right Ventricle RV Diast Dim.: 2.47 cm Aorta Ao Root S of Alexa.: 2.5 cm Ascending Aorta: 2.1 cm Doppler/Quantitative Measurements Mitral Valve MV Peak E-Wave: 1.03 m/s MV Peak A-Wave: 0.86 m/s P1/2t: 29 msec E/A Ratio: 1.2 Peak Gradient: 4.24 mmHg Dece leration Time: 99 msec MV Area (PHT): 7.59 cm^2 MV [place]. Peak: Aortic Valve Peak Velocity: 2.39 m/s Mean Velocity: 1.62 m/s Peak Gradient: 22.85 mmHg Mean Gradient: 12 mmHg AV Area (continuity): 1.53 cm^2 AV VTI: 36.4 cm Cusp Separation: 1.3 cm AV DVI: 0.76 LVOT Peak Velocity: 1.55 m/sPeak Gradient: 10 mmHg Mean Velocity: 1.15 m/sMean Gradient: 6 mmHg LVOT Diameter: 1.6 cmLVOT VTI: 27.8 cm LVOT Area: 2.01 cm^2 LVOT SV:55.87 ml LVOT CO: 5.47 l/minLVOT CI: 3.58 l/min/m^2 Pulmonic Valve Peak Velocity: 1.32 m/s Peak Gradient: 6.97 mmHg Procedure Note Interface, External Ris In - 03/26/2018 11:40 AM CDT Transthoracic Echocardiography Report (TTE) Demographics Patient Name DEMETRI GONZALEZ Date of Study 03/03/2018 SUKHDEEP SERRATO Gender Female Visit Number [id number] Race Black Room Number [id number] Number Date of 1990 Referring Physician 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 Height: 62 inches Weight: 53.98 kg (119 lbs) BSA: 1.53 m^2 BMI: 21.77 kg/m^2 HR: 98 bpm BP: 206/128 mmHg Signature Findings Technical Quality: Technically good exam. Left Ventricle Moderate concentric LV hypertrophy. The left ventricle is chamber size (by vol index) is normal. All of the LV segments contract normally . Estimated LVEF by qualitative assessment is normal (55-60%) . Left Atrium Normal size left atrium. Right Ventricle Normal right ventricle structure and function. Right Atrium Normal right atrium. Atrial Septum Normal interatrial septum by available views. Aortic Valve Aortic valve is likely trileaflet and opens normally. No evidence of aortic regurgitation. Mitral Valve Normal MV structure. No significant mitral regurgitation. Tricuspid Valve TV structure is normal. No evidence of tricuspid regurgitation. Pulmonic Valve Normal PV structure. No evidence of pulmonary regurgitation. Aorta Aortic root size (SInus of Valsalva diameter) is normal . Pericardium A trivial pericardial effusion is present . IVC/SVC/PA/PV/Pleural The inferior vena cava size is normal . The estimated RA pressure by IVC dynamics 0-5mmHg . Chambers/Structures Left Atrium LA Dimension: 3 cm Left Ventricle LVIDd: 3.7 cm LVEDV:50.7 ml LVIDs: 2.43 cm LVESV:14.3 ml LV Septum Diastolic: 1.06 cm LVEF 2D Cube: 71.8 % LV PW Diastolic: 1.46 cm LV FS: 34.3 % LVOT Diameter: 1.6 cm LVEF: 71.8 % Right Ventricle RV Diast Dim.: 2.47 cm Aorta Ao Root S of Alexa.: 2.5 cm Ascending Aorta: 2.1 cm Doppler/Quantitative Measurements Mitral Valve MV Peak E-Wave: 1.03 m/s MV Peak A-Wave: 0.86 m/s P1/2t: 29 msec E/A Ratio: 1.2 Peak Gradient: 4.24 mmHg Deceleration Time: 99 msec MV Area (PHT): 7.59 cm^2 MV [place]. Peak: Aortic Valve Peak Velocity: 2.39 m/s Mean Velocity: 1.62 m/s Peak Gradient: 22.85 mmHg Mean Gradient: 12 mmHg AV Area (continuity): 1.53 cm^2 AV VTI: 36.4 cm Cusp Separation: 1.3 cm AV DVI: 0.76 LVOT Peak Velocity: 1.55 m/s Peak Gradient: 10 mmHg Mean Velocity: 1.15 m/s Mean Gradient: 6 mmHg LVOT Diameter: 1.6 cm LVOT VTI: 27.8 cm LVOT Area: 2.01 cm^2 LVOT SV:55.87 ml LVOT CO: 5.47 l/min LVOT CI: 3.58 l/min/m^2 Pulmonic Valve Peak Velocity: 1.32 m/s Peak Gradient: 6.97 mmHg Performing Organization Address City/State/Zipcode Phone Number [facility] * PTH, intact (03/03/2018 10:04 AM CDT) PTH 272.1 (H) 15.0 - 90.0 pg/mL [facility] Specimen Blood Performing Organization Address [facility] Phone Number [facility] [address] [place] [address] [facility] [address] [place] [address] * Hepatitis B surface antibody (03/01/2018 9:50 AM CDT) Only the most recent of 2 results within the time period is included. Hep B S Ab 4,951.3 (H) <8.0 mIU/mL [facility] Specimen Blood Performing Organization Address [facility] Phone Number [facility] [address] [place] [address] [facility] * Blood gas, venous (03/01/2018 12:42 AM CDT) pH, Bud 7.42 7.32 - 7.42 [facility] pCO2, Bud 36 (L) 41 - 51 mmHg [facility] pO2, Bud 53 (H) 25 - 40 mmHg [facility] O2 Sat, Bud 84.9 (H) 40.0 - 70.0 % [facility] HCO3, Bud 23 21 - 29 mmol/L [facility] Base Excess, Bud -1.1 -2.0 - 3.0 mmol/L [facility] Patient Temperature 37.0 C [facility] Specimen Blood Performing Organization Address City/[facility] Phone Number [facility] [place] [address] [facility] [place] [address] * Ketones, blood (03/01/2018 12:42 AM CDT) Only the most recent of 2 results within the time period is included. Acetone, Serum Moderate (A) Negative [facility] Specimen Blood Performing Organization Address City/[facility] Phone [facility] [place] [address] [facility] [place] [address] * Manual Differential (03/01/2018 12:02 AM CDT) % Neutros (manual) 88 % [facility] % Lymphs (manual) 9 % [facility] % Monos (manual) 3 % [facility] # Neutros (manual) 5.90 1.80 - 8.00 K/L [facility] # Lymphs (manual) 0.60 (L) 1.48 - 4.50 K/L [facility] # Monos (manual) 0.20 0.00 - 1.30 K/L [facility] Total Counted 100 [facility] WBC Morphology Normal [facility] Platelet Morphology Normal [facility] RBC Morphology Normal [facility] Specimen Blood Performing Organization Address [facility] Phone Number [facility] [place] [address] [facility] [place] [address] * XR mandible less than 4 views (01/21/2018 1:36 PM CDT) Narrative Performed At FINAL REPORT RIS TECHNIQUE: Frontal view of the mandible dated 01/21/2018. HISTORY: Jaw pain. COMPARISON: None IMPRESSION: The patient was unable to perform the additional images. No fracture seen on this image provided. Bones are normal in density. No radiodense foreign body or subcutaneous emphysema seen. Signed: Raheem James MD Report Verified Date/Time:01/21/2018 13:44:32 Reading Location: [facility] Radiology Reading Room Procedure Note Interface, External Ris In - 01/21/2018 1:46 PM CDT FINAL REPORT TECHNIQUE: Frontal view of the mandible dated 01/21/2018. HISTORY: Jaw pain. COMPARISON: None IMPRESSION: The patient was unable to perform the additional images. No fracture seen on this image provided. Bones are normal in density. No radiodense foreign body or subcutaneous emphysema seen. Signed: Raheem James MD Report Verified Date/Time: 01/21/2018 13:44:32 Reading Location: [facility] Radiology Reading Room Performing Organization Address City/[facility] Phone Number [facility] * Hepatitis B core antibody, total (10/28/2017 3:53 PM CDT) Hep B Core Total Ab NON-REACTIVE Nonreactive [facility] Specimen Blood - Arm, Right Performing Organization Address [facility]/[place] [address] [phone] [place] [address] * Hemoglobin A1c (10/28/2017 5:25 AM CDT) Hemoglobin A1C 9.8 (H) 4.3 - 6.1 % [facility] Specimen Blood Performing Organization Address [facility] Phone Number [facility] [address] [place] [address] * Lipid panel (10/28/2017 5:25 AM CDT) Triglycerides 88Comment: Specimen slightly mg/dL [facility] Cholesterol 148Comment: Specimen slightly mg/dL [facility] HDL 38 mg/dL [facility] LDL Calculated 92 mg/dL [facility] Specimen Blood Narrative Performed At Triglyceride Reference Range: [facility] Low Risk <150 LAB[facility]ORY [id number] High Risk 200-499 Very High Risk>=500 Cholesterol Reference Range: Low Risk <200 [id number] High Risk>240 HDL Cholesterol Reference Range: Low Risk >=60 High Risk <40 LDL Cholesterol Reference Range: Optimal<100 Near [id number] [id number] Very High >=[address] [facility] Phone Number [facility] [address] [place] [phone] * hCG, quantitative, (10/27/2017 1:53 PM CDT) hCG Quant <2 0 - 10 mIU/mL [facility] Specimen Blood Narrative Performed At Non- Females: <10 mIU/mL [facility] Females: LABORATORY Gestation AgeReference Range(mIU/mL) 0.2-1 Week5-50 1-2 Lsbca06-500 2-3 Weeks 100-5,000 3-4 Weeks 500-10,000 4-5 Weeks 1,000-50,000 5-6 Weeks10,000-100,000 6-8 Weeks15,000-200,000 2-3 Months 10,000-100,000 Performing Organization Address City/[facility] Phone Number [facility] [address] [place], [place] [phone] * Liver Panel (10/27/2017 1:36 PM CDT) Protein, Total 8.4 6.0 - 8.5 gm/dL [facility] Albumin 4.5 3.5 - 5.0 g/dL [facility] Total Bilirubin 0.4 0.1 - 1.2 mg/dL [facility] Bilirubin, Direct 0.2 0.0 - 0.4 mg/dL [facility] Alkaline Phosphatase 96 30 - 115 U/L [facility] AST 8 5 - 40 U/L [facility] ALT 9 5 - 50 U/L [facility] Specimen Blood Performing Organization Address City/[facility] Phone Number [facility] [place], [place] [address] after 06/18/2017 Insurance Payer Benefit Subscriber ID Type Phone Address Plan / Group MEDICARE MEDICARE A xxxxxxxxxx Medicare B MEDICAID MEDICAID xxxxxxxxx Medicaid OF [place] Advance Directives For more information, please contact: [facility] [address] [place] [address] Date Inactivated Comments Code Status Date Activated Full Code 06/03/2018 4:18 AM This code status was determined by: Patient 06/02/2018 8:17 PM Full Code 05/17/2018 8:15 PM This code status was determined by: Patient 03/04/2018 1:02 PM Full Code 03/01/2018 4:17 AM This code status was determined by: Patient 10/29/2017 6:36 PM Full Code 10/27/2017 5:34 PM This code status was determined by: Patient 01/04/2017 6:59 PM Full Code 12/31/2016 12:56 AM This code status was determined by: Patient
--- OUTSIDE RECORDS SUMMARY | 2018-06-19 14:55 | XMS REPORT ---
Author Author [facility] Address Unknown Phone Unavailable Care Team Providers Care Pattern Storage Clerk Name Role Phone ABHIJEET, DR HOBBS Unavailable Unavailable NAKUL POOLE Unavailable Unavailable CHAVO, DR JAIME Unavailable Unavailable PAPA, DR SCHAFFER Unavailable Unavailable ENOC MCCRARY Unavailable Unavailable ABHISHEK HAHN Unavailable Unavailable RAINER CENTENO Unavailable Unavailable Katie SANTIZO Unavailable Unavailable Melissa GONCALVES Unavailable Unavailable TRELL, DR KENNEDY Unavailable Unavailable Edmund MENSAH Unavailable Unavailable BALDOMERO, DR CABALLERO Unavailable Unavailable Wong MURO Unavailable Unavailable DR STEVAN WHITMAN Unavailable Unavailable [facility], DR [place] Unavailable Unavailable KANDYAdam GUEVARA Unavailable Unavailable BRY BERNABE Unavailable Unavailable JESSI WESLEY Unavailable Unavailable DR MARLYN COBOS Unavailable Unavailable DR Sarabjit MAX Unavailable Unavailable Jon COLLINS Unavailable Unavailable DR GREGG KELLY Unavailable Unavailable Belinda MAX Unavailable Unavailable WINTER, DR QUIÑONES Unavailable Unavailable UMAIR JOHN Unavailable Unavailable GUTHRIE, SOUHEIL Unavailable Unavailable CARMENZA GOODWIN Unavailable Unavailable BEBETO MELENDEZ Unavailable Unavailable Jorge L Hutchinson Unavailable Unavailable NELIA ACUNA Unavailable Unavailable MAGI WILL Unavailable Unavailable MICHAEL MONTES Unavailable Unavailable Payers Payer Name Policy Type Policy Number Effective Date Expiration Date Problems This patient has no known problems. Allergies, Adverse Reactions, Alerts Allergy Name Allergy Type Status Severity Reaction(s) Onset Date Inactive Date Treating Clinician Comments metoclopramide HCl DA Active [place] 2018-04-27 00:00:00 tramadol DA Active [place] 2018-04-27 00:00:00 ondansetron DA Active [place] 2018-04-27 00:00:00 ketorolac DA Active U 2018-04-27 00:00:00 shellfish derived DA Active [place] 2018-04-27 00:00:00 metoclopramide HCl DA Active MO 2018-04-12 00:00:00 morphine DA Active U 2018-04-12 00:00:00 tramadol DA Active [place] 2018-04-12 00:00:00 ondansetron DA Active MO 2018-04-12 00:00:00 ketorolac DA Active U 2018-04-12 00:00:00 shellfish derived DA Active SV 2018-04-12 00:00:00 metoclopramide HCl DA Active MO 2018-04-09 00:00:00 morphine DA Active U 2018-04-09 00:00:00 tramadol DA Active [place] 2018-04-09 00:00:00 ondansetron DA Active [place] 2018-04-09 00:00:00 ketorolac DA Active U 2018-04-09 00:00:00 shellfish derived DA Active SV 2018-04-09 00:00:00 metoclopramide HCl DA Active [place] 2018-02-26 00:00:00 morphine DA Active U 2018-02-26 00:00:00 tramadol DA Active [place] 2018-02-26 00:00:00 ondansetron DA Active [place] 2018-02-26 00:00:00 ketorolac DA Active U 2018-02-26 00:00:00 shellfish derived DA Active [place] 2018-02-26 00:00:00 Medications This patient has no known medications. Encounters Start Date/Time End Date/Time Encounter Type Admission Type Attending [facility] Care Department Encounter ID 2018-06-07 20:15:00 2018-06-09 11:45:00 Outpatient E FABY JHA [facility] [id number] 2018-06-02 11:31:00 2018-06-02 17:10:00 Emergency E ADDISON TONY [facility] [id number] 2018-05-25 15:50:00 2018-05-27 16:27:00 Inpatient E SARBJIT ELAM [facility] [id number] 2018-04-24 21:07:00 2018-04-27 11:13:00 Outpatient E FABY JHA [facility] TELE [id number] 2018-03-19 18:56:00 2018-03-19 22:25:00 Emergency E ABHISHEK HAHN [facility] [id number] 2018-02-25 09:48:00 2018-02-26 18:24:00 Outpatient E SARBJIT ELAM [facility] [id number] 2018-02-12 16:46:00 2018-02-12 20:42:00 Emergency E ADRI GONCALVES [facility] [id number] 2018-01-17 15:32:00 2018-01-17 18:30:00 Emergency E LINDA MENSAH [facility] [id number] 2017-12-16 15:21:00 2017-12-16 21:08:00 Emergency E STEVAN WHITMAN [facility] [id number] 2017-11-16 21:41:00 2017-11-20 17:05:00 Inpatient E DARCIE SANCHEZ [facility] [id number] 2017-11-02 01:51:00 2017-11-02 14:19:00 Outpatient E FABY JHA [facility] TELE [id number] 2017-10-21 21:27:00 2017-10-23 14:12:00 Inpatient E MARCIA CAI [facility] TELE [id number] 2017-09-10 08:00:00 2017-09-13 11:02:00 Inpatient E FABY JHA [facility] TELE [id number] 2017-08-06 18:55:00 2017-08-06 21:30:00 Emergency E MARLYN COBOS [facility] [id number] 2017-08-04 16:20:00 2017-08-04 18:33:00 Emergency E GAY MAX [facility] [id number] 2017-07-30 04:43:00 2017-07-30 06:23:00 Emergency E LINDA MENSAH [facility] [id number] 2017-07-28 18:51:00 2017-07-28 23:21:00 Emergency E GREGG KELLY [facility] [id number] 2017-07-12 10:01:00 2017-07-12 13:01:00 Emergency E ISHMAEL MAX [facility] [id number] 2017-07-08 19:18:00 2017-07-08 23:39:00 Emergency E ABHISHEK HAHN [facility] [id number] 2016-11-28 13:38:00 2016-11-28 13:38:00 Outpatient HutchinsonCarlos barone ARAMIS SELF [id number] Results Test Description Test Time Test Comments [...] 9.5 mg/dL 8.3-9.5 GLUCOMETER GLUCOSE- LAB USE [id number] 05:38:00* Test Item Value Reference Range Comments GLUCOMETER (test code=GMG) 277 mg/dL 70-100 Meter ID: [id number]: 2907 DARCIE OLIVIASU GLUCOMETER GLUCOSE- LAB USE [id number] 20:15:00* Test Item Value Reference Range Comments GLUCOMETER (test code=GMG) 343 mg/dL 70-100 DAILY MAINTENANCEMeter ID: [id number]: 4845 CRISTINA ARELLANO GLUCOMETER GLUCOSE- LAB USE [id number] 16:41:00* Test Item Value Reference Range Comments GLUCOMETER (test code=GMG) 204 mg/dL 70-100 Meter ID: [id number]: 9591 RASHAAD MARIANO GLUCOMETER GLUCOSE- LAB USE [id number] 11:49:00* Test Item Value Reference Range Comments GLUCOMETER (test code=GMG) 115 mg/dL 70-100 Meter ID: [id number]: 9591 RASHAAD QUIN[place]NA [facility] METABOLIC [place] 2018-06-08 05:59:00* Test Item Value Reference Range Comments [...] code=A84) 0.038 ng/mL 0.000-0.045 CBC (INCLUDES AUTOMATED DIFFERENTIAL)*[id number] 05:51:00* Test Item Value Reference Range Comments [...] (test code=WRBCMOR) NORMAL GLUCOMETER GLUCOSE- LAB USE [id number] 05:04:00* Test Item Value Reference Range Comments GLUCOMETER (test code=GMG) 127 mg/dL 70-100 Meter ID: [id number]: 5304 JOHN CONKLINZMAN GLUCOMETER GLUCOSE- LAB USE [id number] 22:17:00* Test Item Value Reference Range Comments GLUCOMETER (test code=GMG) 93 mg/dL 70-100 Meter ID: [id number]: 5304 JOHNCASANOVAMATTHEW GLUCOMETER GLUCOSE- LAB USE [id number] 21:03:00* Test Item Value Reference Range Comments GLUCOMETER (test code=GMG) 64 mg/dL 70-100 Meter ID: [id number]: 5304 JOHN CONKLINZMAN LIVER PROFILE WW2018-06-07 18:04:00* Test Item Value Reference Range Comments [...] code=31A) 22 IU/L <=78 BASIC METABOLIC PANEL *WW*2018-06-07 17:57:00* Test Item Value Reference Range Comments [...] code=60A) 112 IU/L 73-393 CBC (INCLUDES AUTOMATED DIFFERENTIAL)*[id number] 17:46:00* Test Item Value Reference Range Comments [...] NO NO RBC MORPH (test code=WRBCMOR) NORMAL POCT-GLUCOSE [id number] 16:03:00* Test Item Value Reference Range Comments POC-GLUCOSE METER (BEAKER) (test qbpr=3198) 97 mg/dL 70-110 [address] [address] POCT-GLUCOSE [id number] 12:10:00* Test Item Value Reference Range Comments POC-GLUCOSE METER (BEAKER) (test gceq=2523) 175 mg/dL 70-110 TESTED AT [address] [address] POCT-GLUCOSE [id number] 06:41:00* Test Item Value Reference Range Comments POC-GLUCOSE METER (BEAKER) (test whkn=7465) 192 mg/dL 70-110 TESTED AT [address] [address] COMPREHENSIVE METABOLIC [id number] 06:02:00* Test Item Value Reference Range Comments TOTAL PROTEIN (BEAKER) (test pmdy=789) 6.9 gm/dL 6.0-8.5 ALBUMIN (BEAKER) (test lriw=1354) 3.4 g/dL 3.5-5.0 ALKALINE PHOSPHATASE (BEAKER) (test jjar=669) 60 U/L 30-115 BILIRUBIN TOTAL (BEAKER) (test byqo=656) 0.3 mg/dL 0.1-1.2 SODIUM (BEAKER) (test qtbn=150) 134 meq/L 135-148 POTASSIUM (BEAKER) (test rzvu=222) 4.7 meq/L 3.6-5.5 CHLORIDE (BEAKER) (test vmab=993) 95 meq/L 98-106 CO2 (BEAKER) (test kpum=190) 27 meq/L 20-29 BLOOD UREA NITROGEN (BEAKER) (test btxy=944) 44 mg/dL 10-26 CREATININE (BEAKER) (test nlyk=724) 5.54 mg/dL 0.50-1.20 GLUCOSE RANDOM (BEAKER) (test kmmm=368) 182 mg/dL 70-110 CALCIUM (BEAKER) (test okxb=744) 9.8 mg/dL 8.5-10.5 AST (SGOT) (BEAKER) (test sijk=575) 12 U/L 5-40 ALT (SGPT) (BEAKER) (test yfyj=020) 11 U/L 5-50 EGFR (BEAKER) (test kbsq=7380) 11 mL/min/1.73 sq m ESTIMATED GFR IS NOT ACCURATE CREATININE CLEARANCE IN PREDICTING GLOMERULAR FILTRATION RATE. ESTIMATED GFR IS NOT APPLICABLE FOR DIALYSIS PATIENTS. [id number] 05:47:00* Test Item Value Reference Range Comments PHOSPHORUS (BEAKER) (test rsxk=597) 7.8 mg/dL 2.5-4.5 CBC W/PLT COUNT & AUTO [id number] 05:31:00* Test Item Value Reference Range Comments WHITE BLOOD CELL COUNT (BEAKER) (test dfrz=275) 3.8 K/ L 4.0-10.0 RED BLOOD CELL COUNT (BEAKER) (test nuez=986) 3.19 M/ L 4.00-5.00 HEMOGLOBIN (BEAKER) (test qghl=679) 9.0 GM/DL 12.0-15.5 HEMATOCRIT (BEAKER) (test rqfr=475) 29.4 % 36.0-46.0 MEAN CORPUSCULAR VOLUME (BEAKER) (test vdnd=465) 92.2 fL 82.0-99.0 MEAN CORPUSCULAR HEMOGLOBIN (BEAKER) (test qiqa=806) 28.2 pg 27.0-33.0 MEAN CORPUSCULAR HEMOGLOBIN CONC (BEAKER) (test hcdq=226) 30.6 GM/DL 32.0-36.0 RED CELL DISTRIBUTION WIDTH (BEAKER) (test xoiw=617) 15.6 % 12.0-15.0 PLATELET COUNT (BEAKER) (test dxpl=291) 186 K/CU MM 150-430 MEAN PLATELET VOLUME (BEAKER) (test kdmp=421) 9.8 fL 6.0-11.5 NUCLEATED RED BLOOD CELLS (BEAKER) (test ibfs=309) 0 /100 WBC 0-0 NEUTROPHILS RELATIVE PERCENT (BEAKER) (test tssn=616) 35 % LYMPHOCYTES RELATIVE PERCENT (BEAKER) (test gnxd=325) 49 % MONOCYTES RELATIVE PERCENT (BEAKER) (test jlqi=271) 10 % EOSINOPHILS RELATIVE PERCENT (BEAKER) (test qnya=436) 6 % BASOPHILS RELATIVE PERCENT (BEAKER) (test yvpg=762) 0 % NEUTROPHILS ABSOLUTE COUNT (BEAKER) (test cgyu=537) 1.32 K/ L 1.80-8.00 LYMPHOCYTES ABSOLUTE COUNT (BEAKER) (test ricl=085) 1.85 K/ L 1.48-4.50 MONOCYTES ABSOLUTE COUNT (BEAKER) (test hens=532) 0.36 K/ L 0.00-1.30 EOSINOPHILS ABSOLUTE COUNT (BEAKER) (test tksy=009) 0.21 K/ L 0.00-0.50 BASOPHILS ABSOLUTE COUNT (BEAKER) (test eopp=177) 0.01 K/ L 0.00-0.20 IMMATURE GRANULOCYTES-RELATIVE PERCENT (BEAKER) (test rmjv=1220) 1 % 0-0 POCT-GLUCOSE [id number] 20:59:00* Test Item Value Reference Range Comments POC-GLUCOSE METER (BEAKER) (test chkz=2409) 156 mg/dL 70-110 [address] [address] POCT-GLUCOSE [id number] 16:53:00* Test Item Value Reference Range Comments POC-GLUCOSE METER (BEAKER) (test fvxr=9180) 156 mg/dL 70-110 TESTED AT [address] [address] POCT-GLUCOSE [id number] 11:54:00* Test Item Value Reference Range Comments POC-GLUCOSE METER (BEAKER) (test twik=6779) 135 mg/dL 70-110 TESTED AT [facility] [address] [facility] [address] POCT-GLUCOSE [id number] 05:47:00* Test Item Value Reference Range Comments POC-GLUCOSE METER (BEAKER) (test wclt=3150) 153 mg/dL 70-110 TESTED AT [address] [address] POCT-GLUCOSE [id number] 21:13:00* Test Item Value Reference Range Comments POC-GLUCOSE METER (BEAKER) (test fmeg=0139) 148 mg/dL 70-110 TESTED AT [address] [address] POCT-GLUCOSE [id number] 18:48:00* Test Item Value Reference Range Comments POC-GLUCOSE METER (BEAKER) (test xtte=2588) 64 mg/dL 70-110 TESTED AT [place] [id number] POCT-GLUCOSE [id number] 13:28:00* Test Item Value Reference Range Comments POC-GLUCOSE METER (BEAKER) (test xomw=7773) 107 mg/dL 70-110 TESTED AT [address] [address] POCT-GLUCOSE [id number] 13:18:00* Test Item Value Reference Range Comments POC-GLUCOSE METER (BEAKER) (test dual=6753) 60 mg/dL 70-110 TESTED AT [address] [address] POCT-GLUCOSE [id number] 13:18:00* Test Item Value Reference Range Comments POC-GLUCOSE METER (BEAKER) (test rsmq=3511) 35 mg/dL 70-110 TESTED AT [address] [address] POCT-GLUCOSE [id number] 06:43:00* Test Item Value Reference Range Comments POC-GLUCOSE METER (BEAKER) (test ibby=8395) 79 mg/dL 70-110 TESTED AT [address] [address] COMPREHENSIVE METABOLIC [id number] 06:26:00* Test Item Value Reference Range Comments TOTAL PROTEIN (BEAKER) (test npuv=215) 6.8 gm/dL 6.0-8.5 ALBUMIN (BEAKER) (test mvlh=0691) 3.3 g/dL 3.5-5.0 ALKALINE PHOSPHATASE (BEAKER) (test cgim=107) 58 U/L 30-115 BILIRUBIN TOTAL (BEAKER) (test ruio=307) 0.3 mg/dL 0.1-1.2 SODIUM (BEAKER) (test taeh=010) 136 meq/L 135-148 POTASSIUM (BEAKER) (test nzgy=248) 4.0 meq/L 3.6-5.5 CHLORIDE (BEAKER) (test zpqz=523) 99 meq/L 98-106 CO2 (BEAKER) (test ocph=712) 24 meq/L 20-29 BLOOD UREA NITROGEN (BEAKER) (test ybff=594) 49 mg/dL 10-26 CREATININE (BEAKER) (test ftvf=575) 5.31 mg/dL 0.50-1.20 GLUCOSE RANDOM (BEAKER) (test ovbq=964) 45 mg/dL 70-110 CALCIUM (BEAKER) (test jweg=531) 9.7 mg/dL 8.5-10.5 AST (SGOT) (BEAKER) (test owny=762) 12 U/L 5-40 ALT (SGPT) (BEAKER) (test igra=369) 11 U/L 5-50 EGFR (BEAKER) (test eykh=9813) 12 mL/min/1.73 sq m ESTIMATED GFR IS NOT ACCURATE CREATININE CLEARANCE IN PREDICTING GLOMERULAR FILTRATION RATE. ESTIMATED GFR IS NOT APPLICABLE FOR DIALYSIS PATIENTS. [id number] 06:11:00* Test Item Value Reference Range Comments PHOSPHORUS (BEAKER) (test gfus=197) 8.3 mg/dL 2.5-4.5 POCT-GLUCOSE [id number] 06:04:00* Test Item Value Reference Range Comments POC-GLUCOSE METER (BEAKER) (test zype=9759) 61 mg/dL 70-110 Notified ALICJA BECKFORD/TESTED AT [facility] [address] [place] [address] CBC W/PLT COUNT & AUTO [id number] 05:56:00* Test Item Value Reference Range Comments WHITE BLOOD CELL COUNT (BEAKER) (test sxcs=478) 3.5 K/ L 4.0-10.0 RED BLOOD CELL COUNT (BEAKER) (test pspu=757) 3.07 M/ L 4.00-5.00 HEMOGLOBIN (BEAKER) (test dtqg=453) 8.7 GM/DL 12.0-15.5 HEMATOCRIT (BEAKER) (test jvrm=170) 28.5 % 36.0-46.0 MEAN CORPUSCULAR VOLUME (BEAKER) (test niyi=286) 92.8 fL 82.0-99.0 MEAN CORPUSCULAR HEMOGLOBIN (BEAKER) (test kvwx=720) 28.3 pg 27.0-33.0 MEAN CORPUSCULAR HEMOGLOBIN CONC (BEAKER) (test cjst=714) 30.5 GM/DL 32.0-36.0 RED CELL DISTRIBUTION WIDTH (BEAKER) (test nzxo=704) 16.0 % 12.0-15.0 PLATELET COUNT (BEAKER) (test xxmr=269) 191 K/CU MM 150-430 MEAN PLATELET VOLUME (BEAKER) (test fudr=365) 9.8 fL 6.0-11.5 NUCLEATED RED BLOOD CELLS (BEAKER) (test nqms=489) 0 /100 WBC 0-0 NEUTROPHILS RELATIVE PERCENT (BEAKER) (test rpbs=638) 30 % LYMPHOCYTES RELATIVE PERCENT (BEAKER) (test uaqo=065) 51 % MONOCYTES RELATIVE PERCENT (BEAKER) (test ggrb=539) 11 % EOSINOPHILS RELATIVE PERCENT (BEAKER) (test jmeu=091) 7 % BASOPHILS RELATIVE PERCENT (BEAKER) (test bjqt=611) 1 % NEUTROPHILS ABSOLUTE COUNT (BEAKER) (test wlcu=024) 1.04 K/ L 1.80-8.00 LYMPHOCYTES ABSOLUTE COUNT (BEAKER) (test ioiu=385) 1.78 K/ L 1.48-4.50 MONOCYTES ABSOLUTE COUNT (BEAKER) (test bnfc=479) 0.37 K/ L 0.00-1.30 EOSINOPHILS ABSOLUTE COUNT (BEAKER) (test uvzj=406) 0.24 K/ L 0.00-0.50 BASOPHILS ABSOLUTE COUNT (BEAKER) (test apfi=330) 0.02 K/ L 0.00-0.20 IMMATURE GRANULOCYTES-RELATIVE PERCENT (BEAKER) (test mjkm=6402) 0 % 0-0 POCT-GLUCOSE [id number] 20:56:00* Test Item Value Reference Range Comments POC-GLUCOSE METER (BEAKER) (test yydc=5919) 239 mg/dL 70-110 TESTED AT [facility] [address] [facility] [address] POCT-GLUCOSE [id number] 16:43:00* Test Item Value Reference Range Comments POC-GLUCOSE METER (BEAKER) (test tgfw=8647) 346 mg/dL 70-110 TESTED AT [facility] [address] [facility] [address] POCT-GLUCOSE [id number] 11:22:00* Test Item Value Reference Range Comments POC-GLUCOSE METER (BEAKER) (test tglu=0225) 152 mg/dL 70-110 TESTED AT [facility] [address] [facility] [address] POCT-GLUCOSE [id number] 06:49:00* Test Item Value Reference Range Comments POC-GLUCOSE METER (BEAKER) (test xvto=1988) 162 mg/dL 70-110 TESTED AT [facility] [address] [place] [address], [id number] 03:21:00Reason for exam:->Abdominal painWhat is the patient's sedation requirement?->No SedationIs the patient ?->Unknown FINAL REPORT CLINICAL HISTORY: Acute abdominal pain. FIN DINGS: Multiple axial images of the abdomen and pelvis were performed after the uncomplicated administration of IV contrast. Oral contrast was not given. This exam was performed according to our departmental dose-optimization program, whic h includes automated exposure control, adjustment of the mA and/or kV according to patient size and/or use of the iterative reconstruction technique. Comparison : 05/17/2018 Lower chest: Clear lungs. No pleural effusion or pneumothorax. Visu alized cardiac contours normal. Liver: No significant findings. Gallbladder and biliary tree: Previous cholecystectomy Spleen: No significant findings. Adrenal Glands: No significant findings. 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 Pancreas: No significant findings. Bowel: No significant findings. Appendix: Nonvisualized . No pericecal inflammatory changes. Bladder: Diffuse bladder wall thickening Ma zaria vascular structures: No significant findings. Reproductive organs: No signif icant findings. Other: No free air, fluid or adenopathy Skeleton: No acute bony abnormality. IMPRESSION: Diffuse bladder wall thickening, a nonspecific finding which can be seen with chronic infection or inflammation. Please correlate with urinalysis. An infiltrative bladder lesion is less likely. Urology follow-up can be obtained, if indicated. Signed: Del Maldonado MDReport Verified Date/Time: 06/03/2018 03:21:21 Reading Location: [address] Reading Room , SERUM, [id number] 02:37:00* Test Item Value Reference Range Comments TEST SERUM (BEAKER) (test cxrc=734) Negative TROPONIN [id number] 00:03:00* Test Item Value Reference Range Comments TROPONIN I (BEAKER) (test ykuu=982) 0.04 ng/mL 0.00-0.15 COMPREHENSIVE METABOLIC [id number] 23:58:00* Test Item Value Reference Range Comments TOTAL PROTEIN (BEAKER) (test eexm=536) 8.3 gm/dL 6.0-8.5 ALBUMIN (BEAKER) (test plxd=9611) 3.9 g/dL 3.5-5.0 ALKALINE PHOSPHATASE (BEAKER) (test cmlc=889) 64 U/L 30-115 BILIRUBIN TOTAL (BEAKER) (test ifvt=344) 0.4 mg/dL 0.1-1.2 SODIUM (BEAKER) (test iaam=156) 140 meq/L 135-148 POTASSIUM (BEAKER) (test yrni=648) 4.5 meq/L 3.6-5.5 CHLORIDE (BEAKER) (test muaa=241) 102 meq/L 98-106 CO2 (BEAKER) (test pbad=620) 24 meq/L 20-29 BLOOD UREA NITROGEN (BEAKER) (test xzwk=947) 33 mg/dL 10-26 CREATININE (BEAKER) (test djdt=372) 3.59 mg/dL 0.50-1.20 GLUCOSE RANDOM (BEAKER) (test wrrx=226) 140 mg/dL 70-110 CALCIUM (BEAKER) (test bipo=308) 10.0 mg/dL 8.5-10.5 AST (SGOT) (BEAKER) (test pykf=274) 17 U/L 5-40 ALT (SGPT) (BEAKER) (test ksja=521) 16 U/L 5-50 EGFR (BEAKER) (test hkxg=2159) 19 mL/min/1.73 sq m ESTIMATED GFR IS NOT ACCURATE CREATININE CLEARANCE IN PREDICTING GLOMERULAR FILTRATION RATE. ESTIMATED GFR IS NOT APPLICABLE FOR DIALYSIS PATIENTS. [id number] 23:56:00* Test Item Value Reference Range Comments LIPASE (BEAKER) (test cxqt=608) 14 U/L 6-51 LACTIC ACID, VENOUS, WHOLE [id number] 23:52:00* Test Item Value Reference Range Comments LACTATE BLOOD VENOUS (2) (BEAKER) (test llhk=6299) 0.6 mmol/L 0.5-2.0 PT/[id number] 23:50:00* Test Item Value Reference Range Comments PROTIME (BEAKER) (test mulw=347) 11.0 sec 9.3-12.0 INR (BEAKER) (test wpnv=623) 1.0 <=5.9 PARTIAL THROMBOPLASTIN TIME (BEAKER) (test aubf=448) 30.1 sec 23.0-35.0 RECOMMENDED COUMADIN/WARFARIN INR THERAPY RANGESSTANDARD DOSE: 2.0 - 3.0 Inclu muriel: PROPHYLAXIS for venous thrombosis, systemic embolization; TREATMENT for sonu ous thrombosis and/or pulmonary embolus.HIGH RISK: Target INR is 2.5-3.5 for pat ients with mechanical heart valves.Final Information (Auto Output)Final Informat ion (Auto Output)Final Information (Auto Output)[id number] 23:47:00* Test Item Value Reference Range Comments MAGNESIUM (BEAKER) (test canp=000) 2.4 mg/dL 1.5-3.0 CBC W/PLT COUNT & AUTO [id number] 23:32:00* Test Item Value Reference Range Comments WHITE BLOOD CELL COUNT (BEAKER) (test tlik=557) 4.3 K/ L 4.0-10.0 RED BLOOD CELL COUNT (BEAKER) (test xkvh=242) 3.69 M/ L 4.00-5.00 HEMOGLOBIN (BEAKER) (test zdwx=610) 10.5 GM/DL 12.0-15.5 HEMATOCRIT (BEAKER) (test bzqw=709) 34.0 % 36.0-46.0 MEAN CORPUSCULAR VOLUME (BEAKER) (test ijck=010) 92.1 fL 82.0-99.0 MEAN CORPUSCULAR HEMOGLOBIN (BEAKER) (test jjjr=373) 28.5 pg 27.0-33.0 MEAN CORPUSCULAR HEMOGLOBIN CONC (BEAKER) (test zotz=621) 30.9 GM/DL 32.0-36.0 RED CELL DISTRIBUTION WIDTH (BEAKER) (test kbmi=676) 16.0 % 12.0-15.0 PLATELET COUNT (BEAKER) (test voew=653) 211 K/CU MM 150-430 MEAN PLATELET VOLUME (BEAKER) (test jkzi=621) 8.8 fL 6.0-11.5 NUCLEATED RED BLOOD CELLS (BEAKER) (test exyb=114) 0 /100 WBC 0-0 NEUTROPHILS RELATIVE PERCENT (BEAKER) (test vhzn=601) 77 % LYMPHOCYTES RELATIVE PERCENT (BEAKER) (test bfyz=375) 17 % MONOCYTES RELATIVE PERCENT (BEAKER) (test nxvi=924) 5 % EOSINOPHILS RELATIVE PERCENT (BEAKER) (test ezjb=866) 0 % BASOPHILS RELATIVE PERCENT (BEAKER) (test dmof=854) 0 % NEUTROPHILS ABSOLUTE COUNT (BEAKER) (test pivd=106) 3.25 K/ L 1.80-8.00 LYMPHOCYTES ABSOLUTE COUNT (BEAKER) (test hsqi=796) 0.73 K/ L 1.48-4.50 MONOCYTES ABSOLUTE COUNT (BEAKER) (test gcgc=887) 0.22 K/ L 0.00-1.30 EOSINOPHILS ABSOLUTE COUNT (BEAKER) (test caaj=529) 0.01 K/ L 0.00-0.50 BASOPHILS ABSOLUTE COUNT (BEAKER) (test yvee=291) 0.01 K/ L 0.00-0.20 IMMATURE GRANULOCYTES-RELATIVE PERCENT (BEAKER) (test okxt=6219) 1 % 0-0 RAPID INFLUENZA A&B [id number] 23:04:00* Test Item Value Reference Range Comments RAPID INFLUENZA A AG (BEAKER) (test ekpw=1799) Negative Negative, Inconclusive RAPID INFLUENZA B AG (BEAKER) (test txbo=2705) Negative Negative, Inconclusive RAD, CHEST, 1 VIEW, NON [id number] 21:03:00Reason for exam:->chest painIs the patient ?->UnknownShould this be performed at the bedside?->YesFINAL REPORT Chest one view AP 06/02/2018 9:03 PM CLINICAL HISTORY: chest pain COMPARISON: 05/17/2018 FINDINGS: The lungs are clear. Card iomediastinal contours are within normal limits. The central pulmonary vasculatu re is not engorged. A right chest port is present. IMPRESSION: Unremarkable fron wisam chest radiograph. Signed: Vianca Mejia Verified Date/Time: 05/19 21:03:59 Reading Location: [facility] Radiology Reading Room Electr onically signed by: VIANCA MEJIA M.D. on 06/02/2018 09:03 PM SERUM [id number] 15:25:00* Test Item Value Reference Range Comments PREG SRM (test code=PGS) NEGATIVE NEGATIVE OCCULT [id number] 13:31:00* Test Item Value Reference Range Comments Direct Exam (test code=DE1) POSITIVE FOR OCCULT BLOOD COMPREHENSIVE METABOLIC [id number] 12:36:00* Test Item Value Reference Range Comments [...] <=42 ALT (test code=31A) 24 IU/L <=78 [id number] 12:36:00* Test Item Value Reference Range Comments AMYLASE (test code=10A) 92 U/L 28-100 LIPASE [id number] 12:30:00* Test Item Value Reference Range Comments [...] (test code=RBCMOR) NORMAL GLUCOMETER GLUCOSE- LAB USE [id number] 12:22:00* Test Item Value Reference Range Comments GLUCOMETER (test code=GMG) 53 mg/dL 70-100 Meter ID: [id number]: [id number] LIZZ[address] MIRTHAU GLUCOMETER GLUCOSE- LAB USE [id number] 18:48:00* Test Item Value Reference Range Comments GLUCOMETER (test code=GMG) 80 mg/dL 70-100 Meter ID: [id number]: [id number] CHECO LUIS HEPATITIS B SURFACE [id number] 16:45:00* Test Item Value Reference Range Comments HBSAG (test code=HBSAG) NON-REACTIVE NON-REACTIVE HEPATITIS B SURFACE [id number] 16:35:00* Test Item Value Reference Range Comments HBSAB (test code=HBSAB) REACTIVE REACTIVE GLUCOMETER GLUCOSE- LAB USE [id number] 11:01:00* Test Item Value Reference Range Comments GLUCOMETER (test code=GMG) 91 mg/dL 70-100 CLEANED METERMeter ID: [id number]: [address] AMEZCUA CARDIAC [id number] 05:14:00* Test Item Value Reference Range Comments TROPONIN I (test code=A84) 0.156 ng/mL 0.000-0.045 BASIC METABOLIC [id number] 05:04:00* Test Item Value Reference Range Comments [...] NO NO RBC MORPH (test code=RBCMOR) NORMAL [id number] 23:47:00* Test Item Value Reference Range Comments GLUCOSE (test code=06D) 131 mg/dL 75-100 CARDIAC [id number] 22:47:00* Test Item Value Reference Range Comments TROPONIN I (test code=A84) 0.180 ng/mL 0.000-0.045 XR ABDOMEN AP 1 VIEW [id number] 15:48:47Exam: KUBHISTORY: PainLocation: [id number]:Bowel gas pattern is nonspecific without mechanical obstruction. No radiopaquestones are identified. No evidence of visceromegaly. Surgical clips in thegallbladder fossa. Mild dextroscoliosis.IMPRESSION:1. Unremarkable exam. No change since 11/01/17. SERUM [id number] 15:00:00* Test Item Value Reference Range Comments PREG SRM (test code=PGS) NEGATIVE NEGATIVE COMPREHENSIVE METABOLIC [id number] 14:46:00* Test Item Value Reference Range Comments [...] (test code=31A) 27 IU/L <=78 AMYLASE AND [id number] 14:46:00* Test Item Value Reference Range Comments AMYLASE (test code=10A) 145 U/L 28-100 LIPASE (test code=60A) 75 IU/L 73-393 TROPONIN [id number] 14:46:00* Test Item Value Reference Range Comments [...] NO NO RBC MORPH (test code=RBCMOR) NORMAL POCT-GLUCOSE [id number] 16:38:00* Test Item Value Reference Range Comments POC-GLUCOSE METER (BEAKER) (test xrox=0925) 196 mg/dL 70-110 TESTED AT [place] [id number] POCT-GLUCOSE [id number] 11:55:00* Test Item Value Reference Range Comments POC-GLUCOSE METER (BEAKER) (test zraq=6733) 128 mg/dL 70-110 TESTED AT [place] [address]85958 POCT-GLUCOSE [id number] 05:37:00* Test Item Value Reference Range Comments POC-GLUCOSE METER (BEAKER) (test rnhq=4998) 194 mg/dL 70-110 TESTED AT [place] [address]85958 POCT-GLUCOSE [id number] 20:53:00* Test Item Value Reference Range Comments POC-GLUCOSE METER (BEAKER) (test vwbb=1868) 221 mg/dL 70-110 TESTED AT [place] [address]85958 POCT-GLUCOSE [id number] 16:38:00* Test Item Value Reference Range Comments POC-GLUCOSE METER (BEAKER) (test fylj=1454) 259 mg/dL 70-110 TESTED AT [place] [address]85958 POCT-GLUCOSE [id number] 12:11:00* Test Item Value Reference Range Comments POC-GLUCOSE METER (BEAKER) (test gwvk=2346) 132 mg/dL 70-110 TESTED AT [place] [id number] POCT-GLUCOSE [id number] 07:00:00* Test Item Value Reference Range Comments POC-GLUCOSE METER (BEAKER) (test vrxk=7044) 249 mg/dL 70-110 TESTED AT [place] [address]85958 BASIC METABOLIC [id number] 06:08:00* Test Item Value Reference Range Comments SODIUM (BEAKER) (test djxr=924) 134 meq/L 135-148 POTASSIUM (BEAKER) (test tnfv=803) 4.7 meq/L 3.6-5.5 CHLORIDE (BEAKER) (test nhjr=153) 96 meq/L 98-106 CO2 (BEAKER) (test sozj=635) 25 meq/L 20-29 BLOOD UREA NITROGEN (BEAKER) (test okuo=223) 32 mg/dL 10-26 CREATININE (BEAKER) (test bvqd=388) 5.48 mg/dL 0.50-1.20 GLUCOSE RANDOM (BEAKER) (test yvpy=534) 196 mg/dL 70-110 CALCIUM (BEAKER) (test tajy=693) 10.2 mg/dL 8.5-10.5 EGFR (BEAKER) (test qpol=0441) 11 mL/min/1.73 sq m ESTIMATED GFR IS NOT ACCURATE CREATININE CLEARANCE IN PREDICTING GLOMERULAR FILTRATION RATE. ESTIMATED GFR IS NOT APPLICABLE FOR DIALYSIS PATIENTS. CBC W/PLT COUNT & AUTO [id number] 05:40:00* Test Item Value Reference Range Comments WHITE BLOOD CELL COUNT (BEAKER) (test virh=791) 4.0 K/ L 4.0-10.0 RED BLOOD CELL COUNT (BEAKER) (test glis=163) 3.17 M/ L 4.00-5.00 HEMOGLOBIN (BEAKER) (test wdgu=722) 9.1 GM/DL 12.0-15.5 HEMATOCRIT (BEAKER) (test eqzx=932) 29.3 % 36.0-46.0 MEAN CORPUSCULAR VOLUME (BEAKER) (test qcrd=249) 92.4 fL 82.0-99.0 MEAN CORPUSCULAR HEMOGLOBIN (BEAKER) (test zhju=126) 28.7 pg 27.0-33.0 MEAN CORPUSCULAR HEMOGLOBIN CONC (BEAKER) (test wjvu=164) 31.1 GM/DL 32.0-36.0 RED CELL DISTRIBUTION WIDTH (BEAKER) (test ptdz=691) 16.6 % 12.0-15.0 PLATELET COUNT (BEAKER) (test clvy=556) 162 K/CU MM 150-430 MEAN PLATELET VOLUME (BEAKER) (test rzoa=647) 10.1 fL 6.0-11.5 NUCLEATED RED BLOOD CELLS (BEAKER) (test high=390) 0 /100 WBC 0-0 NEUTROPHILS RELATIVE PERCENT (BEAKER) (test lsim=032) 62 % LYMPHOCYTES RELATIVE PERCENT (BEAKER) (test afbx=906) 20 % MONOCYTES RELATIVE PERCENT (BEAKER) (test xhtv=315) 8 % EOSINOPHILS RELATIVE PERCENT (BEAKER) (test gxan=890) 10 % BASOPHILS RELATIVE PERCENT (BEAKER) (test ubge=622) 1 % NEUTROPHILS ABSOLUTE COUNT (BEAKER) (test mmyv=160) 2.50 K/ L 1.80-8.00 LYMPHOCYTES ABSOLUTE COUNT (BEAKER) (test fdne=891) 0.80 K/ L 1.48-4.50 MONOCYTES ABSOLUTE COUNT (BEAKER) (test xsgk=110) 0.31 K/ L 0.00-1.30 EOSINOPHILS ABSOLUTE COUNT (BEAKER) (test yunm=633) 0.39 K/ L 0.00-0.50 BASOPHILS ABSOLUTE COUNT (BEAKER) (test nsfz=721) 0.02 K/ L 0.00-0.20 IMMATURE GRANULOCYTES-RELATIVE PERCENT (BEAKER) (test rqse=8554) 1 % 0-0 POCT-GLUCOSE [id number] 21:03:00* Test Item Value Reference Range Comments POC-GLUCOSE METER (BEAKER) (test ficx=8181) 233 mg/dL 70-110 [address]ED AT [address] [address] BLOOD [id number] 18:00:00* Test Item Value Reference Range Comments CULTURE (BEAKER) (test uvpz=0197) No growth in 5 days BLOOD [id number] 18:00:00* Test Item Value Reference Range Comments CULTURE (BEAKER) (test tlec=5057) No growth in 5 days POCT-GLUCOSE [id number] 17:15:00* Test Item Value Reference Range Comments POC-GLUCOSE METER (BEAKER) (test ytlh=0209) 163 mg/dL 70-110 TESTED AT [address] [address] POCT-GLUCOSE [id number] 12:16:00* Test Item Value Reference Range Comments POC-GLUCOSE METER (BEAKER) (test bihl=5284) 175 mg/dL 70-110 TESTED AT [address] [address] POCT-GLUCOSE [id number] 06:20:00* Test Item Value Reference Range Comments POC-GLUCOSE METER (BEAKER) (test dlvs=2559) 194 mg/dL 70-110 [address]ED AT [address] [facility] [address] BASIC METABOLIC [id number] 06:05:00* Test Item Value Reference Range Comments SODIUM (BEAKER) (test jqhj=171) 136 meq/L 135-148 POTASSIUM (BEAKER) (test bovw=077) 4.2 meq/L 3.6-5.5 CHLORIDE (BEAKER) (test rmfb=148) 97 meq/L 98-106 CO2 (BEAKER) (test pkas=127) 29 meq/L 20-29 BLOOD UREA NITROGEN (BEAKER) (test llit=036) 18 mg/dL 10-26 CREATININE (BEAKER) (test qowi=790) 3.82 mg/dL 0.50-1.20 GLUCOSE RANDOM (BEAKER) (test yunu=805) 178 mg/dL 70-110 CALCIUM (BEAKER) (test ekcz=328) 9.8 mg/dL 8.5-10.5 EGFR (BEAKER) (test naar=0605) 17 mL/min/1.73 sq m ESTIMATED GFR IS NOT ACCURATE CREATININE CLEARANCE IN PREDICTING GLOMERULAR FILTRATION RATE. ESTIMATED GFR IS NOT APPLICABLE FOR DIALYSIS PATIENTS. CBC W/PLT COUNT & AUTO [id number] 05:31:00* Test Item Value Reference Range Comments WHITE BLOOD CELL COUNT (BEAKER) (test srmg=661) 3.6 K/ L 4.0-10.0 RED BLOOD CELL COUNT (BEAKER) (test vlfc=423) 3.17 M/ L 4.00-5.00 HEMOGLOBIN (BEAKER) (test ylwc=065) 9.0 GM/DL 12.0-15.5 HEMATOCRIT (BEAKER) (test mxtj=748) 30.2 % 36.0-46.0 MEAN CORPUSCULAR VOLUME (BEAKER) (test jmjm=045) 95.3 fL 82.0-99.0 MEAN CORPUSCULAR HEMOGLOBIN (BEAKER) (test nngw=182) 28.4 pg 27.0-33.0 MEAN CORPUSCULAR HEMOGLOBIN CONC (BEAKER) (test qeon=046) 29.8 GM/DL 32.0-36.0 RED CELL DISTRIBUTION WIDTH (BEAKER) (test ccmk=198) 16.7 % 12.0-15.0 PLATELET COUNT (BEAKER) (test ecsg=339) 125 K/CU MM 150-430 MEAN PLATELET VOLUME (BEAKER) (test tjqp=815) 10.0 fL 6.0-11.5 NUCLEATED RED BLOOD CELLS (BEAKER) (test cdpy=951) 0 /100 WBC 0-0 NEUTROPHILS RELATIVE PERCENT (BEAKER) (test ysad=723) 50 % LYMPHOCYTES RELATIVE PERCENT (BEAKER) (test bguv=064) 32 % MONOCYTES RELATIVE PERCENT (BEAKER) (test vtuk=612) 9 % EOSINOPHILS RELATIVE PERCENT (BEAKER) (test sllc=063) 8 % BASOPHILS RELATIVE PERCENT (BEAKER) (test yysq=447) 0 % NEUTROPHILS ABSOLUTE COUNT (BEAKER) (test ydwb=659) 1.78 K/ L 1.80-8.00 LYMPHOCYTES ABSOLUTE COUNT (BEAKER) (test jjoj=565) 1.12 K/ L 1.48-4.50 MONOCYTES ABSOLUTE COUNT (BEAKER) (test ivxq=328) 0.33 K/ L 0.00-1.30 EOSINOPHILS ABSOLUTE COUNT (BEAKER) (test xgjb=845) 0.29 K/ L 0.00-0.50 BASOPHILS ABSOLUTE COUNT (BEAKER) (test eeyd=857) 0.01 K/ L 0.00-0.20 IMMATURE GRANULOCYTES-RELATIVE PERCENT (BEAKER) (test qqkv=6294) 1 % 0-0 POCT-GLUCOSE [id number] 21:12:00* Test Item Value Reference Range Comments POC-GLUCOSE METER (BEAKER) (test fsrq=8343) 278 mg/dL 70-110 TESTED AT [address] [address] POCT-GLUCOSE [id number] 17:05:00* Test Item Value Reference Range Comments POC-GLUCOSE METER (BEAKER) (test mjge=6392) 236 mg/dL 70-110 TESTED AT [address] [address] POCT-GLUCOSE [id number] 12:17:00* Test Item Value Reference Range Comments POC-GLUCOSE METER (BEAKER) (test afdw=4890) 106 mg/dL 70-110 TESTED AT [address] [address] COMPREHENSIVE METABOLIC [id number] 06:09:00* Test Item Value Reference Range Comments TOTAL PROTEIN (BEAKER) (test eieq=386) 7.5 gm/dL 6.0-8.5 ALBUMIN (BEAKER) (test kswg=3045) 3.3 g/dL 3.5-5.0 ALKALINE PHOSPHATASE (BEAKER) (test pevg=058) 61 U/L 30-115 BILIRUBIN TOTAL (BEAKER) (test wkgy=597) 0.3 mg/dL 0.1-1.2 SODIUM (BEAKER) (test bedz=127) 136 meq/L 135-148 POTASSIUM (BEAKER) (test flav=193) 4.8 meq/L 3.6-5.5 CHLORIDE (BEAKER) (test undg=517) 96 meq/L 98-106 CO2 (BEAKER) (test ocqa=642) 28 meq/L 20-29 BLOOD UREA NITROGEN (BEAKER) (test bsoy=548) 25 mg/dL 10-26 CREATININE (BEAKER) (test qgcl=082) 4.18 mg/dL 0.50-1.20 GLUCOSE RANDOM (BEAKER) (test ebwn=688) 245 mg/dL 70-110 CALCIUM (BEAKER) (test fqkt=127) 9.9 mg/dL 8.5-10.5 AST (SGOT) (BEAKER) (test xreg=476) 9 U/L 5-40 ALT (SGPT) (BEAKER) (test fcgu=709) 7 U/L 5-50 EGFR (BEAKER) (test dsmc=1692) 16 mL/min/1.73 sq m ESTIMATED GFR IS NOT ACCURATE CREATININE CLEARANCE IN PREDICTING GLOMERULAR FILTRATION RATE. ESTIMATED GFR IS NOT APPLICABLE FOR DIALYSIS PATIENTS. [id number] 05:44:00* Test Item Value Reference Range Comments PHOSPHORUS (BEAKER) (test wmoa=314) 5.9 mg/dL 2.5-4.5 POCT-GLUCOSE [id number] 05:35:00* Test Item Value Reference Range Comments POC-GLUCOSE METER (BEAKER) (test sjmn=4151) 284 mg/dL 70-110 TESTED AT [facility] [address] [place] [address] CBC W/PLT COUNT & AUTO [id number] 05:16:00* Test Item Value Reference Range Comments WHITE BLOOD CELL COUNT (BEAKER) (test xhro=626) 4.1 K/ L 4.0-10.0 RED BLOOD CELL COUNT (BEAKER) (test bnwh=858) 3.18 M/ L 4.00-5.00 HEMOGLOBIN (BEAKER) (test kozj=200) 8.9 GM/DL 12.0-15.5 HEMATOCRIT (BEAKER) (test wiul=291) 29.8 % 36.0-46.0 MEAN CORPUSCULAR VOLUME (BEAKER) (test vglk=846) 93.7 fL 82.0-99.0 MEAN CORPUSCULAR HEMOGLOBIN (BEAKER) (test ghrm=088) 28.0 pg 27.0-33.0 MEAN CORPUSCULAR HEMOGLOBIN CONC (BEAKER) (test iipc=557) 29.9 GM/DL 32.0-36.0 RED CELL DISTRIBUTION WIDTH (BEAKER) (test wutt=729) 17.0 % 12.0-15.0 PLATELET COUNT (BEAKER) (test udbr=289) 144 K/CU MM 150-430 MEAN PLATELET VOLUME (BEAKER) (test uabg=370) 9.4 fL 6.0-11.5 NUCLEATED RED BLOOD CELLS (BEAKER) (test plvm=123) 0 /100 WBC 0-0 NEUTROPHILS RELATIVE PERCENT (BEAKER) (test tvfn=764) 64 % LYMPHOCYTES RELATIVE PERCENT (BEAKER) (test reos=354) 24 % MONOCYTES RELATIVE PERCENT (BEAKER) (test feas=598) 8 % EOSINOPHILS RELATIVE PERCENT (BEAKER) (test bblf=645) 4 % BASOPHILS RELATIVE PERCENT (BEAKER) (test blga=536) 0 % NEUTROPHILS ABSOLUTE COUNT (BEAKER) (test lxpg=815) 2.57 K/ L 1.80-8.00 LYMPHOCYTES ABSOLUTE COUNT (BEAKER) (test jirc=227) 0.96 K/ L 1.48-4.50 MONOCYTES ABSOLUTE COUNT (BEAKER) (test jyyn=178) 0.32 K/ L 0.00-1.30 EOSINOPHILS ABSOLUTE COUNT (BEAKER) (test nqvs=122) 0.18 K/ L 0.00-0.50 BASOPHILS ABSOLUTE COUNT (BEAKER) (test eqtb=014) 0.01 K/ L 0.00-0.20 IMMATURE GRANULOCYTES-RELATIVE PERCENT (BEAKER) (test acyc=5957) 0 % 0-0 POCT-GLUCOSE [id number] 20:45:00* Test Item Value Reference Range Comments POC-GLUCOSE METER (BEAKER) (test zisu=5494) 142 mg/dL 70-110 TESTED AT [facility] [address] [place] [address] POCT-GLUCOSE [id number] 16:47:00* Test Item Value Reference Range Comments POC-GLUCOSE METER (BEAKER) (test vdav=6625) 129 mg/dL 70-110 [address]ED AT [address] [address] POCT-GLUCOSE [id number] 11:52:00* Test Item Value Reference Range Comments POC-GLUCOSE METER (BEAKER) (test fuvk=1452) 98 mg/dL 70-110 TESTED AT [address] [address] POCT-GLUCOSE [id number] 06:34:00* Test Item Value Reference Range Comments POC-GLUCOSE METER (BEAKER) (test ubys=7216) 51 mg/dL 70-110 Notified ALICJA BECKFORD/TESTED AT [address] [address] BASIC METABOLIC [id number] 05:52:00* Test Item Value Reference Range Comments SODIUM (BEAKER) (test zrqo=464) 134 meq/L 135-148 POTASSIUM (BEAKER) (test zlgb=672) 5.8 meq/L 3.6-5.5 CHLORIDE (BEAKER) (test bwar=534) 94 meq/L 98-106 CO2 (BEAKER) (test ppps=492) 23 meq/L 20-29 BLOOD UREA NITROGEN (BEAKER) (test gqls=882) 66 mg/dL 10-26 CREATININE (BEAKER) (test zvsr=829) 6.67 mg/dL 0.50-1.20 GLUCOSE RANDOM (BEAKER) (test yzow=042) 57 mg/dL 70-110 CALCIUM (BEAKER) (test dyqg=921) 10.2 mg/dL 8.5-10.5 EGFR (BEAKER) (test eoml=8362) 9 mL/min/1.73 sq m ESTIMATED GFR IS NOT ACCURATE CREATININE CLEARANCE IN PREDICTING GLOMERULAR FILTRATION RATE. ESTIMATED GFR IS NOT APPLICABLE FOR DIALYSIS PATIENTS. CBC W/PLT COUNT & AUTO [id number] 05:25:00* Test Item Value Reference Range Comments WHITE BLOOD CELL COUNT (BEAKER) (test shea=977) 4.6 K/ L 4.0-10.0 RED BLOOD CELL COUNT (BEAKER) (test dzux=374) 3.24 M/ L 4.00-5.00 HEMOGLOBIN (BEAKER) (test oapw=256) 9.0 GM/DL 12.0-15.5 HEMATOCRIT (BEAKER) (test tzau=637) 29.5 % 36.0-46.0 MEAN CORPUSCULAR VOLUME (BEAKER) (test yqpo=600) 91.0 fL 82.0-99.0 MEAN CORPUSCULAR HEMOGLOBIN (BEAKER) (test opcp=333) 27.8 pg 27.0-33.0 MEAN CORPUSCULAR HEMOGLOBIN CONC (BEAKER) (test fcms=249) 30.5 GM/DL 32.0-36.0 RED CELL DISTRIBUTION WIDTH (BEAKER) (test xtbj=048) 17.1 % 12.0-15.0 PLATELET COUNT (BEAKER) (test gltu=345) 158 K/CU MM 150-430 MEAN PLATELET VOLUME (BEAKER) (test wzez=430) 10.2 fL 6.0-11.5 NUCLEATED RED BLOOD CELLS (BEAKER) (test zqhz=161) 0 /100 WBC 0-0 NEUTROPHILS RELATIVE PERCENT (BEAKER) (test zlef=910) 52 % LYMPHOCYTES RELATIVE PERCENT (BEAKER) (test ukyi=370) 30 % MONOCYTES RELATIVE PERCENT (BEAKER) (test oqmu=030) 11 % EOSINOPHILS RELATIVE PERCENT (BEAKER) (test icmu=514) 6 % BASOPHILS RELATIVE PERCENT (BEAKER) (test xnbr=267) 0 % NEUTROPHILS ABSOLUTE COUNT (BEAKER) (test rpsl=593) 2.36 K/ L 1.80-8.00 LYMPHOCYTES ABSOLUTE COUNT (BEAKER) (test nqbj=525) 1.36 K/ L 1.48-4.50 MONOCYTES ABSOLUTE COUNT (BEAKER) (test hmnf=857) 0.51 K/ L 0.00-1.30 EOSINOPHILS ABSOLUTE COUNT (BEAKER) (test gnfj=294) 0.28 K/ L 0.00-0.50 BASOPHILS ABSOLUTE COUNT (BEAKER) (test izwy=741) 0.02 K/ L 0.00-0.20 IMMATURE GRANULOCYTES-RELATIVE PERCENT (BEAKER) (test kvcm=3742) 0 % 0-0 POCT-GLUCOSE [id number] 23:24:00* Test Item Value Reference Range Comments POC-GLUCOSE METER (BEAKER) (test wddp=7632) 90 mg/dL 70-110 TESTED AT [facility] [address] [place] [address] POCT-GLUCOSE [id number] 22:15:00* Test Item Value Reference Range Comments POC-GLUCOSE METER (BEAKER) (test fglh=7772) 48 mg/dL 70-110 Notified ALICJA BECKFORD/TESTED AT [address] [address] [address], CHEST, WITHOUT [id number] 22:12:00Reason for exam:->dyspneaFINAL REPORT DOSE REDUCTION: The examination was performed according to departmental dose-optimization program which includes automated e xposure control, adjustment of the mA and/or kV according to patient size and/or use of iterative reconstruction technique. TECHNIQUE: CT of the chest without i ntravenous contrast. COMPARISON: CT of the abdomen and pelvis, 05/17/2018 Discus jovanny: Curvilinear densities in the left lower lobe most likely due to atelectasi s or scarring. Otherwise lungs are clear. No pleural effusions. No consolidation or airspace opacities. No interstitial disease or bronchiectasis. Right-sided c hest port in place. Noncontrast appearance of the aorta and great vessels is unr emarkable. No significant mediastinal or hilar lymphadenopathy. Heart appears e nlarged. There is trace pericardial effusion. Mild soft tissue anasarca and subc utaneous venous collaterals are seen. In the upper abdomen postcholecystectomy changes are noted. No acute skeletal abnormality. IMPRESSION: 1. Left lower lobe curvilinear densities likely due to atelectasis or scarring. Otherwise no acute CT abnormality in the chest. 2. Cardiomegaly. Trace pericardial effusion. Leonie d: Roly King Verified Date/Time: 05/19/2018 22:12:17 Reading Locatio n: [facility] Mammo Reading Room -GLUCOSE [id number] 20:55:00* Test Item Value Reference Range Comments POC-GLUCOSE METER (BEAKER) (test bwmw=4323) 97 mg/dL 70-110 TESTED AT [address] [address] BLOOD GAS, [id number] 20:18:00* Test Item Value Reference Range Comments PH ARTERIAL (BEAKER) (test mixh=934) 7.42 7.35-7.45 PCO2 ARTERIAL (BEAKER) (test nbxk=822) 41 mm Hg 35-45 PO2 ARTERIAL (BEAKER) (test lxvq=218) 94 mm Hg 80-90 O2 SATURATION ARTERIAL (BEAKER) (test ehrz=101) 97.3 % 96.0-97.0 HCO3 ARTERIAL (BEAKER) (test peqe=332) 26 mmol/L 21-29 BASE EXCESS ARTERIAL (BEAKER) (test gksf=029) 1.0 mmol/L -2.0-3.0 PATIENT TEMPERATURE (BEAKER) (test ykop=9745) 37.0 FIO2 (BEAKER) (test stfz=4396) 21 POCT-GLUCOSE [id number] 16:25:00* Test Item Value Reference Range Comments POC-GLUCOSE METER (BEAKER) (test epvn=1381) 170 mg/dL 70-110 TESTED AT [address] [address] POCT-GLUCOSE [id number] 11:42:00* Test Item Value Reference Range Comments POC-GLUCOSE METER (BEAKER) (test tnqe=3120) 286 mg/dL 70-110 TESTED AT [address] [address] COMPREHENSIVE METABOLIC [id number] 07:16:00* Test Item Value Reference Range Comments TOTAL PROTEIN (BEAKER) (test apjn=799) 6.9 gm/dL 6.0-8.5 ALBUMIN (BEAKER) (test hmpc=7464) 3.4 g/dL 3.5-5.0 ALKALINE PHOSPHATASE (BEAKER) (test mkzi=952) 61 U/L 30-115 BILIRUBIN TOTAL (BEAKER) (test ztpb=443) 0.4 mg/dL 0.1-1.2 SODIUM (BEAKER) (test gbey=853) 136 meq/L 135-148 POTASSIUM (BEAKER) (test pfpr=402) 4.9 meq/L 3.6-5.5 CHLORIDE (BEAKER) (test vkbc=895) 95 meq/L 98-106 CO2 (BEAKER) (test iiam=554) 25 meq/L 20-29 BLOOD UREA NITROGEN (BEAKER) (test ofvh=445) 48 mg/dL 10-26 CREATININE (BEAKER) (test henk=278) 5.50 mg/dL 0.50-1.20 GLUCOSE RANDOM (BEAKER) (test yymh=746) 171 mg/dL 70-110 CALCIUM (BEAKER) (test hgyr=607) 9.9 mg/dL 8.5-10.5 AST (SGOT) (BEAKER) (test xtbj=240) 8 U/L 5-40 ALT (SGPT) (BEAKER) (test uxre=670) 6 U/L 5-50 EGFR (BEAKER) (test fwjg=9403) 11 mL/min/1.73 sq m ESTIMATED GFR IS NOT ACCURATE CREATININE CLEARANCE IN PREDICTING GLOMERULAR FILTRATION RATE. ESTIMATED GFR IS NOT APPLICABLE FOR DIALYSIS PATIENTS. [id number] 07:12:00* Test Item Value Reference Range Comments PHOSPHORUS (BEAKER) (test yyly=560) 9.1 mg/dL 2.5-4.5 CBC W/PLT COUNT & AUTO [id number] 06:46:00* Test Item Value Reference Range Comments WHITE BLOOD CELL COUNT (BEAKER) (test snpr=648) 4.3 K/ L 4.0-10.0 RED BLOOD CELL COUNT (BEAKER) (test voko=511) 3.24 M/ L 4.00-5.00 HEMOGLOBIN (BEAKER) (test imou=985) 9.3 GM/DL 12.0-15.5 HEMATOCRIT (BEAKER) (test skfm=041) 29.2 % 36.0-46.0 MEAN CORPUSCULAR VOLUME (BEAKER) (test mraj=902) 90.1 fL 82.0-99.0 MEAN CORPUSCULAR HEMOGLOBIN (BEAKER) (test iczc=239) 28.7 pg 27.0-33.0 MEAN CORPUSCULAR HEMOGLOBIN CONC (BEAKER) (test buie=981) 31.8 GM/DL 32.0-36.0 RED CELL DISTRIBUTION WIDTH (BEAKER) (test aljs=126) 17.3 % 12.0-15.0 PLATELET COUNT (BEAKER) (test gpgu=886) 158 K/CU MM 150-430 MEAN PLATELET VOLUME (BEAKER) (test sazt=727) 9.9 fL 6.0-11.5 NUCLEATED RED BLOOD CELLS (BEAKER) (test qkkx=165) 0 /100 WBC 0-0 NEUTROPHILS RELATIVE PERCENT (BEAKER) (test ygfl=483) 66 % LYMPHOCYTES RELATIVE PERCENT (BEAKER) (test ubcm=764) 20 % MONOCYTES RELATIVE PERCENT (BEAKER) (test ethd=097) 9 % EOSINOPHILS RELATIVE PERCENT (BEAKER) (test hxzi=089) 4 % BASOPHILS RELATIVE PERCENT (BEAKER) (test fbsg=701) 0 % NEUTROPHILS ABSOLUTE COUNT (BEAKER) (test xlqc=353) 2.82 K/ L 1.80-8.00 LYMPHOCYTES ABSOLUTE COUNT (BEAKER) (test tglv=170) 0.84 K/ L 1.48-4.50 MONOCYTES ABSOLUTE COUNT (BEAKER) (test hwup=704) 0.40 K/ L 0.00-1.30 EOSINOPHILS ABSOLUTE COUNT (BEAKER) (test btiq=680) 0.19 K/ L 0.00-0.50 BASOPHILS ABSOLUTE COUNT (BEAKER) (test sikl=990) 0.01 K/ L 0.00-0.20 IMMATURE GRANULOCYTES-RELATIVE PERCENT (BEAKER) (test zchg=6537) 1 % 0-0 POCT-GLUCOSE [id number] 06:24:00* Test Item Value Reference Range Comments POC-GLUCOSE METER (BEAKER) (test kvei=2750) 210 mg/dL 70-110 TESTED AT [address] [address] POCT-GLUCOSE [id number] 05:01:00* Test Item Value Reference Range Comments POC-GLUCOSE METER (BEAKER) (test ruzg=6450) 86 mg/dL 70-110 TESTED AT [address] [address] POCT-GLUCOSE [id number] 04:35:00* Test Item Value Reference Range Comments POC-GLUCOSE METER (BEAKER) (test aseb=3661) 42 mg/dL 70-110 TESTED AT [address] [address] POCT-GLUCOSE [id number] 21:10:00* Test Item Value Reference Range Comments POC-GLUCOSE METER (BEAKER) (test xhnv=9981) 120 mg/dL 70-110 TESTED AT [facility] [address] [facility] [address] POCT-GLUCOSE [id number] 16:28:00* Test Item Value Reference Range Comments POC-GLUCOSE METER (BEAKER) (test ezcc=1459) 164 mg/dL 70-110 TESTED AT [facility] [address] [facility] [address] POCT-GLUCOSE [id number] 11:43:00* Test Item Value Reference Range Comments POC-GLUCOSE METER (BEAKER) (test zvrg=4964) 115 mg/dL 70-110 TESTED AT [facility] [address] [facility] [address] HEPATITIS B SURFACE [id number] 10:20:00* Test Item Value Reference Range Comments HEPATITIS B SURFACE ANTIGEN (2) (BEAKER) (test qpvs=2983) Nonreactive Nonreactive BASIC METABOLIC [id number] 07:08:00* Test Item Value Reference Range Comments SODIUM (BEAKER) (test okle=673) 138 meq/L 135-148 POTASSIUM (BEAKER) (test gikg=692) 5.0 meq/L 3.6-5.5 CHLORIDE (BEAKER) (test ljui=543) 99 meq/L 98-106 CO2 (BEAKER) (test wkao=971) 17 meq/L 20-29 BLOOD UREA NITROGEN (BEAKER) (test sape=915) 105 mg/dL 10-26 CREATININE (BEAKER) (test qxru=128) 8.59 mg/dL 0.50-1.20 GLUCOSE RANDOM (BEAKER) (test xfdk=132) 70 mg/dL 70-110 CALCIUM (BEAKER) (test axlw=512) 9.8 mg/dL 8.5-10.5 EGFR (BEAKER) (test jsvh=2162) 7 mL/min/1.73 sq m ESTIMATED GFR IS NOT ACCURATE CREATININE CLEARANCE IN PREDICTING GLOMERULAR FILTRATION RATE. ESTIMATED GFR IS NOT APPLICABLE FOR DIALYSIS PATIENTS. CBC W/PLT COUNT & AUTO [id number] 06:58:00* Test Item Value Reference Range Comments WHITE BLOOD CELL COUNT (BEAKER) (test huin=682) 5.5 K/ L 4.0-10.0 RED BLOOD CELL COUNT (BEAKER) (test xbvf=079) 3.20 M/ L 4.00-5.00 HEMOGLOBIN (BEAKER) (test qtcw=851) 9.1 GM/DL 12.0-15.5 HEMATOCRIT (BEAKER) (test ogyw=116) 28.2 % 36.0-46.0 MEAN CORPUSCULAR VOLUME (BEAKER) (test itqb=738) 88.1 fL 82.0-99.0 MEAN CORPUSCULAR HEMOGLOBIN (BEAKER) (test xkum=557) 28.4 pg 27.0-33.0 MEAN CORPUSCULAR HEMOGLOBIN CONC (BEAKER) (test sswp=456) 32.3 GM/DL 32.0-36.0 RED CELL DISTRIBUTION WIDTH (BEAKER) (test wcsf=412) 16.9 % 12.0-15.0 PLATELET COUNT (BEAKER) (test jifd=886) 168 K/CU MM 150-430 MEAN PLATELET VOLUME (BEAKER) (test xrsx=089) 9.9 fL 6.0-11.5 NUCLEATED RED BLOOD CELLS (BEAKER) (test gtpo=124) 0 /100 WBC 0-0 NEUTROPHILS RELATIVE PERCENT (BEAKER) (test oinn=554) 58 % LYMPHOCYTES RELATIVE PERCENT (BEAKER) (test jrom=549) 29 % MONOCYTES RELATIVE PERCENT (BEAKER) (test bwlx=651) 7 % EOSINOPHILS RELATIVE PERCENT (BEAKER) (test zssi=245) 6 % BASOPHILS RELATIVE PERCENT (BEAKER) (test uhsn=839) 1 % NEUTROPHILS ABSOLUTE COUNT (BEAKER) (test tpsk=888) 3.21 K/ L 1.80-8.00 LYMPHOCYTES ABSOLUTE COUNT (BEAKER) (test hgdc=565) 1.58 K/ L 1.48-4.50 MONOCYTES ABSOLUTE COUNT (BEAKER) (test jhjj=651) 0.37 K/ L 0.00-1.30 EOSINOPHILS ABSOLUTE COUNT (BEAKER) (test qejl=433) 0.31 K/ L 0.00-0.50 BASOPHILS ABSOLUTE COUNT (BEAKER) (test nvlp=528) 0.03 K/ L 0.00-0.20 IMMATURE GRANULOCYTES-RELATIVE PERCENT (BEAKER) (test hpdw=5312) 1 % 0-0 POCT-GLUCOSE [id number] 06:44:00* Test Item Value Reference Range Comments POC-GLUCOSE METER (BEAKER) (test kxql=5760) 95 mg/dL 70-110 TESTED AT [facility] [address] [facility] [address] POCT-GLUCOSE [id number] 20:44:00* Test Item Value Reference Range Comments POC-GLUCOSE METER (BEAKER) (test beze=3896) 106 mg/dL 70-110 TESTED AT [facility] [address] [facility] [address] POCT-GLUCOSE [id number] 18:27:00* Test Item Value Reference Range Comments POC-GLUCOSE METER (BEAKER) (test hkms=4853) 179 mg/dL 70-110 TESTED AT [facility] [address] [facility] [address] LACTIC ACID, VENOUS, WHOLE [id number] 16:41:00* Test Item Value Reference Range Comments LACTATE BLOOD VENOUS (2) (JIM) (test zfmq=8120) 1.0 mmol/L 0.5-2.2 Effective 11/20/2015: Units/Reference Range ChangeNew: 0.5-2.2 mmol/L Previous: 5 -18 mg/dLCT, [id number] 14:20:00Reason for exam:->diffuse abd painFINAL REPORT ABDOMINAL AND PELVIS CT DATED 05/17/2018 CLINICAL INFORMATION: diffuse abd paindiffuse abd pain TECHNIQUE: Axial images of the abdomen and pelvis were obtained from diaphragm to the pubic symphysis without contrast. This exam was performed according to our departmental dose-optim ization program, which includes automated exposure control, adjustment of the mA and/or kV according to patient size and/or use of interactive reconstruction te chnique. COMMENT: There is small bilateral pleural effusion. Groundglass pulmona ry parenchymal disease is seen in the visualized lung bases. Differential diagno sis for the groundglass pulmonary parenchymal disease is the following: usual in terstitial pneumonia, nonspecific interstitial pneumonitis, desquamative interst itial pneumonia, hypersensitivity pneumonitis, pulmonary edema or pulmonary hemo rrhage. Liver and spleen are normal in size without focal abnormality. Gallblad marina is surgically absent. No biliary dilatation is noted. Pancreas and adrenals are unremarkable. Both kidneys are not visualized. A transplanted kidney is s een in the right lower quadrant abdomen. The small and large bowel are suboptima lly evaluated secondary to lack of GI and intravenous contrast. Large amount fec al material is seen in the large bowel suggestive of constipation. Small bowel a nd appendix are normal in caliber. Uterus is normal in size. Both ovaries are no t well seen. Trace amount of free fluid is seen in the pelvis. IMPRESSION: 1. B ilateral pleural effusion.2. Airspace disease in both lung bases. Differential a s described above but most likely secondary to pulmonary edema or pneumonia. Ple ase correlate clinically.3. Constipation. Signed: Lupillo Hernandez MDReport Verified Date/Time: 05/17/2018 14:20:12 Reading Location: [facility] C013Y CT Body Reading R oom ALYSIS W/ [id number] 12:14:00* Test Item Value Reference Range Comments COLOR (BEAKER) (test ccvn=185) Yellow CLARITY (BEAKER) (test bqfu=038) Slightly Cloudy SPECIFIC GRAVITY UA (BEAKER) (test ewqu=334) 1.015 1.001-1.035 PH UA (BEAKER) (test wuxm=698) 8.0 5.0-8.0 PROTEIN UA (BEAKER) (test pahn=647) >=300 mg/dL Negative GLUCOSE UA (BEAKER) (test nvbt=057) >=1000 mg/dL Negative KETONES UA (BEAKER) (test bfud=884) Negative Negative BILIRUBIN UA (BEAKER) (test aalq=084) Negative Negative BLOOD UA (BEAKER) (test rfph=051) Trace Negative NITRITE UA (BEAKER) (test pxbv=103) Negative Negative LEUKOCYTE ESTERASE UA (BEAKER) (test cwjo=777) Negative Negative UROBILINOGEN UA (BEAKER) (test kxpo=654) 0.2 mg/dL 0.2-1.0 BACTERIA (BEAKER) (test plby=141) Many RBC UA-MANUAL (BEAKER) (test eegd=0817) <5 /HPF WBC UA-MANUAL (BEAKER) (test blce=1537) 5-10 /HPF SQUAMOUS EPITHELIAL MANUAL (BEAKER) (test sfxp=2571) 5-10 /HPF SOURCE(BEAKER) (test havo=8017) BASIC METABOLIC [id number] 11:57:00* Test Item Value Reference Range Comments SODIUM (BEAKER) (test aqdf=314) 133 meq/L 135-148 POTASSIUM (BEAKER) (test faos=854) 4.8 meq/L 3.6-5.5 CHLORIDE (BEAKER) (test rukj=712) 96 meq/L 98-106 CO2 (BEAKER) (test olnn=621) 20 meq/L 20-29 BLOOD UREA NITROGEN (BEAKER) (test bpps=077) 86 mg/dL 10-26 CREATININE (BEAKER) (test ddpd=335) 7.87 mg/dL 0.50-1.20 GLUCOSE RANDOM (BEAKER) (test jodl=054) 459 mg/dL 70-110 CALCIUM (BEAKER) (test luby=551) 9.8 mg/dL 8.5-10.5 EGFR (BEAKER) (test fepd=2817) 8 mL/min/1.73 sq m ESTIMATED GFR IS NOT ACCURATE CREATININE CLEARANCE IN PREDICTING GLOMERULAR FILTRATION RATE. ESTIMATED GFR IS NOT APPLICABLE FOR DIALYSIS PATIENTS. CBC W/PLT COUNT & AUTO [id number] 11:32:00* Test Item Value Reference Range Comments WHITE BLOOD CELL COUNT (BEAKER) (test aajh=058) 7.3 K/ L 4.0-10.0 RED BLOOD CELL COUNT (BEAKER) (test moag=077) 3.48 M/ L 4.00-5.00 HEMOGLOBIN (BEAKER) (test twhi=264) 9.8 GM/DL 12.0-15.5 HEMATOCRIT (BEAKER) (test uozw=187) 30.7 % 36.0-46.0 MEAN CORPUSCULAR VOLUME (BEAKER) (test urbm=657) 88.2 fL 82.0-99.0 MEAN CORPUSCULAR HEMOGLOBIN (BEAKER) (test uygu=195) 28.2 pg 27.0-33.0 MEAN CORPUSCULAR HEMOGLOBIN CONC (BEAKER) (test pbxl=022) 31.9 GM/DL 32.0-36.0 RED CELL DISTRIBUTION WIDTH (BEAKER) (test poyh=249) 16.0 % 12.0-15.0 PLATELET COUNT (BEAKER) (test wddj=619) 163 K/CU MM 150-430 MEAN PLATELET VOLUME (BEAKER) (test rbgv=553) 9.9 fL 6.0-11.5 NUCLEATED RED BLOOD CELLS (BEAKER) (test ajoc=173) 0 /100 WBC 0-0 NEUTROPHILS RELATIVE PERCENT (BEAKER) (test epea=669) 74 % LYMPHOCYTES RELATIVE PERCENT (BEAKER) (test ewpg=795) 16 % MONOCYTES RELATIVE PERCENT (BEAKER) (test lato=989) 5 % EOSINOPHILS RELATIVE PERCENT (BEAKER) (test nelm=872) 4 % BASOPHILS RELATIVE PERCENT (BEAKER) (test qbjn=302) 0 % NEUTROPHILS ABSOLUTE COUNT (BEAKER) (test wuhp=235) 5.44 K/ L 1.80-8.00 LYMPHOCYTES ABSOLUTE COUNT (BEAKER) (test znur=396) 1.18 K/ L 1.48-4.50 MONOCYTES ABSOLUTE COUNT (BEAKER) (test krqx=029) 0.35 K/ L 0.00-1.30 EOSINOPHILS ABSOLUTE COUNT (BEAKER) (test fvqq=101) 0.31 K/ L 0.00-0.50 BASOPHILS ABSOLUTE COUNT (BEAKER) (test dsyc=001) 0.03 K/ L 0.00-0.20 IMMATURE GRANULOCYTES-RELATIVE PERCENT (BEAKER) (test qtug=6150) 0 % 0-0 RAD, CHEST, 1 VIEW, NON [id number] 11:07:00Reason for exam:->cough, SOBIs the patient ?->UnknownShould this be performed at the bedside?->NoFINAL REPORT AP chest HISTORY: Cough, shortness of breath COMPARISON: 01/21/2017 IMPRESSION:Right chest port present. Heart size upper limi ts of normal. Diffuse interstitial prominence suggestive of edema. Pneumonitis n ot excluded. Suspect trace effusions. No pneumothorax. Signed: Alyssa Barajas Verified Date/Time: 05/17/2018 11:07:15 Reading Location: [address] Radiology Reading Room CHEST 1 VIEW *WW*2018-04-27 08:15:17CLINICAL HISTORY: Pneumonia. [...] 8.3 mg/dL 8.3-9.5 GLUCOMETER GLUCOSE- LAB USE [id number] 06:01:00* Test Item Value Reference Range Comments GLUCOMETER (test code=GMG) 214 mg/dL 70-100 Meter ID: [id number]: 4723 BEBO ESCOBARWVYANJA CBC (INCLUDES AUTOMATED DIFFERENTIAL)*[id number] 05:54:00* Test Item Value Reference Range Comments [...] (test code=WRBCMOR) NORMAL GLUCOMETER GLUCOSE- LAB USE [id number] 23:04:00* Test Item Value Reference Range Comments GLUCOMETER (test code=GMG) 229 mg/dL 70-100 Meter ID: [id number]: 4723 BEBO HERNANDEZVVON GLUCOMETER GLUCOSE- LAB USE [id number] 15:40:00* Test Item Value Reference Range Comments GLUCOMETER (test code=GMG) 146 mg/dL 70-100 DAILY MAINTENANCEMeter ID: [id number]: 9397 EMMA PEREZ HEPATITIS B SURFACE ANTIGEN *WW*2018-04-26 12:41:00* Test Item Value Reference Range Comments HBSAG (test code=HBSAG) NON-REACTIVE NON-REACTIVE GLUCOMETER GLUCOSE- LAB USE [id number] 10:43:00* Test Item Value Reference Range Comments GLUCOMETER (test code=GMG) 218 mg/dL 70-100 DAILY MAINTENANCEMeter ID: [id number]: 9397 EMMA PEREZ XR CHEST 1 VIEW [...] is not appreciatedradiographically. GLUCOMETER GLUCOSE- LAB USE [id number] 07:42:00* Test Item Value Reference Range Comments GLUCOMETER (test code=GMG) 308 mg/dL 70-100 CLEANED METERMeter ID: [id number]: 1429 RAMÍREZ PING BASIC METABOLIC PANEL *WW*2018-04-26 06:06:00* Test Item [...] code=09D) 8.6 mg/dL 8.3-9.5 CBC (INCLUDES AUTOMATED DIFFERENTIAL)*[id number] 05:54:00* Test Item Value Reference Range Comments [...] (test code=WRBCMOR) NORMAL GLUCOMETER GLUCOSE- LAB USE [id number] 21:16:00* Test Item Value Reference Range Comments GLUCOMETER (test code=GMG) 141 mg/dL 70-100 Meter ID: [id number]: 47[address] BE[address] ESCOBARWVYANJA GLUCOMETER GLUCOSE- LAB USE [id number] 18:18:00* Test Item Value Reference Range Comments GLUCOMETER (test code=GMG) 68 mg/dL 70-100 CLEANED METERMeter ID: [id number]: 1429 SALINA PING XR CHEST 1 VIEW *WW*2018-04-25 17:15:55Portable AP chest, 1 viewLocation Code: X8MGKALRBP HISTORY: J18.9: PNEUMONIA, UNSPECIFIED ORGANISMCOMPARISON: 02/12/2018COMMENT: The lungs are clear and well inflated. The costophrenic angles are sharp. Thecardiomediastinal silhouette is stable. Right chest port remains. The bones areintact.IMPRESSION: Stable chest with no acute abnormalityGLUCOMETER GLUCOSE- LAB USE [id number] 17:14:00* Test Item Value Reference Range Comments GLUCOMETER (test code=GMG) 53 mg/dL 70-100 CLEANED METERMeter ID: [id number]: 1429 SALINA PING GLUCOMETER GLUCOSE- LAB USE [id number] 16:13:00* Test Item Value Reference Range Comments GLUCOMETER (test code=GMG) 51 mg/dL 70-100 DAILY MAINTENANCEMeter ID: [id number]: 9397 EMMA PEREZ GLYCOHEMOGLOBIN *WW*2018-04-25 12:41:00* Test Item Value Reference Range Comments Hb A1C % (test code=HBA) 7.2 % 4.2-6.3 GLUCOMETER GLUCOSE- LAB USE [id number] 11:17:00* Test Item Value Reference Range Comments GLUCOMETER (test code=GMG) 212 mg/dL 70-100 CLEANED METERMeter ID: [id number]: 1429 RAMÍREZ PING BASIC METABOLIC PANEL *WW*2018-04-25 07:46:00* Test Item Value Reference Range Comments [...] 9.4 mg/dL 8.3-9.5 GLUCOMETER GLUCOSE- LAB USE [id number] 07:45:00* Test Item Value Reference Range Comments GLUCOMETER (test code=GMG) 421 mg/dL 70-100 CLEANED METERMeter ID: [id number]: 1429 RAMÍREZ PING CBC (INCLUDES AUTOMATED DIFFERENTIAL)*[id number] 07:02:00* Test Item Value Reference Range Comments [...] 75 IU/L 26-192 GLUCOMETER GLUCOSE- LAB USE [id number] 01:44:00* Test Item Value Reference Range Comments GLUCOMETER (test code=GMG) 470 mg/dL 70-100 Meter ID: [id number]: 9516 VIRGIE HINA GLUCOMETER GLUCOSE- LAB USE [id number] 23:18:00* Test Item Value Reference Range Comments GLUCOMETER (test code=GMG) 444 mg/dL 70-100 Meter ID: [id number]: [address] [facility] [address] ABDOMEN AND PELVIS WITHOUT CONTRAST *WW*2018-04-24 21:01:35CT ABDOMEN AND PELVIS WITHOUT CONTRAST *WW*Location:[address] services are provided 04/24/2018 8:46 PMIndication:R10.33: PERIUMBILICAL [...] abnormal.3. Crossed fused renal ectopia.COMPREHENSIVE METABOLIC [place] 2018-04-24 20:19:00* Test Item Value Reference Range Comments [...] code=32A) 75 IU/L 26-192 CBC (INCLUDES AUTOMATED DIFFERENTIAL)*[id number] 19:50:00* Test Item Value Reference Range Comments [...] (test code=WRBCMOR) NORMAL GLUCOMETER GLUCOSE- LAB USE [id number] 22:30:00* Test Item Value Reference Range Comments GLUCOMETER (test code=GMG) 275 mg/dL 70-100 Meter ID: [id number]: [address] [facility] METABOLIC [place] *WW*2018-03-19 19:54:00* Test Item Value [...] (test code=PGS) NEGATIVE NEGATIVE CBC (INCLUDES AUTOMATED DIFFERENTIAL)*[id number] 19:42:00* Test Item Value Reference Range Comments [...] NO NO RBC MORPH (test code=WRBCMOR) NORMAL IRON, TIBC, % SAT. (WITHOUT FERRITIN)2018-03-04 10:08:00* Test Item Value Reference Range Comments IRON (BEAKER) (test txcm=786) 84 ug/dL 40-160 TOTAL IRON BINDING CAPACITY (BEAKER) (test afbj=760) 240 ug/dL 250-450 IRON % SATURATION (2) (BEAKER) (test jxar=3624) 35 % 20-55 [id number] 07:00:00* Test Item Value Reference Range Comments FERRITIN (BEAKER) (test gmpb=891) 472 ng/mL 10-291 POCT-GLUCOSE [id number] 06:42:00* Test Item Value Reference Range Comments POC-GLUCOSE METER (BEAKER) (test oaef=8822) 125 mg/dL 70-110 TESTED AT [facility] [address] [place] [address] COMPREHENSIVE METABOLIC [id number] 06:16:00* Test Item Value Reference Range Comments TOTAL PROTEIN (BEAKER) (test aarn=236) 7.5 gm/dL 6.0-8.5 ALBUMIN (BEAKER) (test zhue=8527) 4.3 g/dL 3.5-5.0 ALKALINE PHOSPHATASE (BEAKER) (test eper=160) 65 U/L 30-115 BILIRUBIN TOTAL (BEAKER) (test aksi=770) 0.4 mg/dL 0.1-1.2 SODIUM (BEAKER) (test eyuy=038) 138 meq/L 135-148 POTASSIUM (BEAKER) (test vqmf=909) 3.4 meq/L 3.6-5.5 CHLORIDE (BEAKER) (test ynjq=042) 96 meq/L 98-106 CO2 (BEAKER) (test joyg=703) 31 meq/L 20-29 BLOOD UREA NITROGEN (BEAKER) (test dlau=329) 12 mg/dL 10-26 CREATININE (BEAKER) (test khzp=483) 3.36 mg/dL 0.50-1.20 GLUCOSE RANDOM (BEAKER) (test ahct=732) 145 mg/dL 70-110 CALCIUM (BEAKER) (test oxrx=376) 9.8 mg/dL 8.5-10.5 AST (SGOT) (BEAKER) (test zptg=042) 13 U/L 5-40 ALT (SGPT) (BEAKER) (test palz=160) 7 U/L 5-50 EGFR (BEAKER) (test nvqa=8020) 20 mL/min/1.73 sq m ESTIMATED GFR IS NOT ACCURATE CREATININE CLEARANCE IN PREDICTING GLOMERULAR FILTRATION RATE. ESTIMATED GFR IS NOT APPLICABLE FOR DIALYSIS PATIENTS. [id number] 06:13:00* Test Item Value Reference Range Comments PHOSPHORUS (BEAKER) (test rrnv=881) 3.6 mg/dL 2.5-4.5 CBC W/PLT COUNT & AUTO [id number] 05:47:00* Test Item Value Reference Range Comments WHITE BLOOD CELL COUNT (BEAKER) (test oeid=253) 4.8 K/ L 4.0-10.0 RED BLOOD CELL COUNT (BEAKER) (test udzp=461) 3.29 M/ L 4.00-5.00 HEMOGLOBIN (BEAKER) (test rgxx=824) 9.9 GM/DL 12.0-15.0 HEMATOCRIT (BEAKER) (test axuz=984) 30.0 % 36.0-45.0 MEAN CORPUSCULAR VOLUME (BEAKER) (test lzhf=833) 91.2 fL 82.0-99.0 MEAN CORPUSCULAR HEMOGLOBIN (BEAKER) (test jior=572) 30.1 pg 27.0-33.0 MEAN CORPUSCULAR HEMOGLOBIN CONC (BEAKER) (test kgoe=176) 33.0 GM/DL 32.0-36.0 RED CELL DISTRIBUTION WIDTH (BEAKER) (test byvr=061) 14.7 % 10.3-14.2 PLATELET COUNT (BEAKER) (test vwvo=895) 225 K/CU MM 150-430 MEAN PLATELET VOLUME (BEAKER) (test sgef=523) 8.8 fL 6.5-10.5 NUCLEATED RED BLOOD CELLS (BEAKER) (test lkjc=302) 0 /100 WBC 0-0 NEUTROPHILS RELATIVE PERCENT (BEAKER) (test hpaw=972) 48 % LYMPHOCYTES RELATIVE PERCENT (BEAKER) (test spcq=708) 43 % MONOCYTES RELATIVE PERCENT (BEAKER) (test fatt=041) 9 % EOSINOPHILS RELATIVE PERCENT (BEAKER) (test umiq=000) 0 % BASOPHILS RELATIVE PERCENT (BEAKER) (test ecmu=367) 0 % NEUTROPHILS ABSOLUTE COUNT (BEAKER) (test miih=187) 2.30 K/ L 1.80-8.00 LYMPHOCYTES ABSOLUTE COUNT (BEAKER) (test bwzk=392) 2.05 K/ L 1.48-4.50 MONOCYTES ABSOLUTE COUNT (BEAKER) (test dwrr=988) 0.41 K/ L 0.00-1.30 EOSINOPHILS ABSOLUTE COUNT (BEAKER) (test hbup=093) 0.02 K/ L 0.00-0.50 BASOPHILS ABSOLUTE COUNT (BEAKER) (test hvcq=642) 0.02 K/ L 0.00-0.20 POCT-GLUCOSE [id number] 01:44:00* Test Item Value Reference Range Comments POC-GLUCOSE METER (BEAKER) (test kgaa=7098) 78 mg/dL 70-110 TESTED AT [facility] [place] [address] POCT-GLUCOSE [id number] 00:17:00* Test Item Value Reference Range Comments POC-GLUCOSE METER (BEAKER) (test atvn=9352) 69 mg/dL 70-110 TESTED AT [place] [address] [place] [address] POCT-GLUCOSE [id number] 16:40:00* Test Item Value Reference Range Comments POC-GLUCOSE METER (BEAKER) (test lyva=1252) 166 mg/dL 70-110 TESTED AT [place] [address] [place] [address] POCT-GLUCOSE [id number] 11:21:00* Test Item Value Reference Range Comments POC-GLUCOSE METER (BEAKER) (test pbwl=6473) 125 mg/dL 70-110 TESTED AT [place] [address] [place] [address] PTH, [id number] 10:35:00* Test Item Value Reference Range Comments PARATHYROID HORMONE INTACT (BEAKER) (test ctxh=796) 272.1 pg/mL 15.0-90.0 POCT-GLUCOSE [id number] 06:44:00* Test Item Value Reference Range Comments POC-GLUCOSE METER (BEAKER) (test xifq=7828) 103 mg/dL 70-110 TESTED AT [facility] [address] [place] [address] COMPREHENSIVE METABOLIC [id number] 05:43:00* Test Item Value Reference Range Comments TOTAL PROTEIN (BEAKER) (test iwhi=350) 6.5 gm/dL 6.0-8.5 ALBUMIN (BEAKER) (test xuiw=7539) 3.7 g/dL 3.5-5.0 ALKALINE PHOSPHATASE (BEAKER) (test bgxj=183) 53 U/L 30-115 BILIRUBIN TOTAL (BEAKER) (test pvbu=020) 0.4 mg/dL 0.1-1.2 SODIUM (BEAKER) (test holo=636) 143 meq/L 135-148 POTASSIUM (BEAKER) (test ihap=877) 3.7 meq/L 3.6-5.5 CHLORIDE (BEAKER) (test uugw=346) 101 meq/L 98-106 CO2 (BEAKER) (test edca=580) 27 meq/L 20-29 BLOOD UREA NITROGEN (BEAKER) (test plnf=089) 40 mg/dL 10-26 CREATININE (BEAKER) (test uujq=995) 6.90 mg/dL 0.50-1.20 GLUCOSE RANDOM (BEAKER) (test vukl=583) 87 mg/dL 70-110 CALCIUM (BEAKER) (test wkvl=583) 9.5 mg/dL 8.5-10.5 AST (SGOT) (BEAKER) (test onxk=213) 9 U/L 5-40 ALT (SGPT) (BEAKER) (test mvhx=665) 5 U/L 5-50 EGFR (BEAKER) (test cogx=2836) 9 mL/min/1.73 sq m ESTIMATED GFR IS NOT ACCURATE CREATININE CLEARANCE IN PREDICTING GLOMERULAR FILTRATION RATE. ESTIMATED GFR IS NOT APPLICABLE FOR DIALYSIS PATIENTS. CBC W/PLT COUNT & AUTO [id number] 05:18:00* Test Item Value Reference Range Comments WHITE BLOOD CELL COUNT (BEAKER) (test qcjo=307) 4.7 K/ L 4.0-10.0 RED BLOOD CELL COUNT (BEAKER) (test yjdg=238) 2.99 M/ L 4.00-5.00 HEMOGLOBIN (BEAKER) (test febz=743) 8.8 GM/DL 12.0-15.0 HEMATOCRIT (BEAKER) (test jzpi=927) 27.5 % 36.0-45.0 MEAN CORPUSCULAR VOLUME (BEAKER) (test tlnt=892) 92.0 fL 82.0-99.0 MEAN CORPUSCULAR HEMOGLOBIN (BEAKER) (test zcxz=465) 29.4 pg 27.0-33.0 MEAN CORPUSCULAR HEMOGLOBIN CONC (BEAKER) (test lvuo=120) 32.0 GM/DL 32.0-36.0 RED CELL DISTRIBUTION WIDTH (BEAKER) (test yybf=288) 15.1 % 10.3-14.2 PLATELET COUNT (BEAKER) (test mrwq=123) 185 K/CU MM 150-430 MEAN PLATELET VOLUME (BEAKER) (test smph=082) 8.8 fL 6.5-10.5 NUCLEATED RED BLOOD CELLS (BEAKER) (test ggxf=248) 0 /100 WBC 0-0 NEUTROPHILS RELATIVE PERCENT (BEAKER) (test hsfb=126) 56 % LYMPHOCYTES RELATIVE PERCENT (BEAKER) (test rtoj=340) 35 % MONOCYTES RELATIVE PERCENT (BEAKER) (test nsfj=142) 9 % EOSINOPHILS RELATIVE PERCENT (BEAKER) (test ryhb=987) 0 % BASOPHILS RELATIVE PERCENT (BEAKER) (test ousz=128) 0 % NEUTROPHILS ABSOLUTE COUNT (BEAKER) (test hfxg=002) 2.62 K/ L 1.80-8.00 LYMPHOCYTES ABSOLUTE COUNT (BEAKER) (test aksp=921) 1.63 K/ L 1.48-4.50 MONOCYTES ABSOLUTE COUNT (BEAKER) (test wwic=425) 0.40 K/ L 0.00-1.30 EOSINOPHILS ABSOLUTE COUNT (BEAKER) (test dwnr=303) 0.01 K/ L 0.00-0.50 BASOPHILS ABSOLUTE COUNT (BEAKER) (test fxds=368) 0.01 K/ L 0.00-0.20 POCT-GLUCOSE [id number] 21:13:00* Test Item Value Reference Range Comments POC-GLUCOSE METER (BEAKER) (test ccpb=4551) 139 mg/dL 70-110 TESTED AT [facility] [place] [address] POCT-GLUCOSE [id number] 17:28:00* Test Item Value Reference Range Comments POC-GLUCOSE METER (BEAKER) (test rlep=6380) 228 mg/dL 70-110 TESTED AT [facility] [place] [address] POCT-GLUCOSE [id number] 11:38:00* Test Item Value Reference Range Comments POC-GLUCOSE METER (BEAKER) (test ioay=7212) 277 mg/dL 70-110 TESTED AT [facility] [place] [address] COMPREHENSIVE METABOLIC [id number] 06:30:00* Test Item Value Reference Range Comments TOTAL PROTEIN (BEAKER) (test yymk=738) 7.3 gm/dL 6.0-8.5 ALBUMIN (BEAKER) (test ijoi=6149) 4.1 g/dL 3.5-5.0 ALKALINE PHOSPHATASE (BEAKER) (test rpxg=395) 63 U/L 30-115 BILIRUBIN TOTAL (BEAKER) (test wbye=918) 0.4 mg/dL 0.1-1.2 SODIUM (BEAKER) (test nwsh=584) 142 meq/L 135-148 POTASSIUM (BEAKER) (test wwos=846) 3.8 meq/L 3.6-5.5 CHLORIDE (BEAKER) (test jqse=405) 97 meq/L 98-106 CO2 (BEAKER) (test ozio=924) 29 meq/L 20-29 BLOOD UREA NITROGEN (BEAKER) (test gxmv=422) 26 mg/dL 10-26 CREATININE (BEAKER) (test sgcn=381) 4.66 mg/dL 0.50-1.20 GLUCOSE RANDOM (BEAKER) (test xjqn=118) 197 mg/dL 70-110 CALCIUM (BEAKER) (test lrcn=501) 9.9 mg/dL 8.5-10.5 AST (SGOT) (BEAKER) (test nlvc=334) 10 U/L 5-40 ALT (SGPT) (BEAKER) (test zjtl=420) 6 U/L 5-50 EGFR (BEAKER) (test odes=3835) 14 mL/min/1.73 sq m ESTIMATED GFR IS NOT ACCURATE CREATININE CLEARANCE IN PREDICTING GLOMERULAR FILTRATION RATE. ESTIMATED GFR IS NOT APPLICABLE FOR DIALYSIS PATIENTS. CBC W/PLT COUNT & AUTO [id number] 06:11:00* Test Item Value Reference Range Comments WHITE BLOOD CELL COUNT (BEAKER) (test nfac=922) 4.5 K/ L 4.0-10.0 RED BLOOD CELL COUNT (BEAKER) (test qvrs=438) 3.14 M/ L 4.00-5.00 HEMOGLOBIN (BEAKER) (test uruo=229) 9.4 GM/DL 12.0-15.0 HEMATOCRIT (BEAKER) (test mjtv=602) 28.8 % 36.0-45.0 MEAN CORPUSCULAR VOLUME (BEAKER) (test iale=761) 91.7 fL 82.0-99.0 MEAN CORPUSCULAR HEMOGLOBIN (BEAKER) (test semz=548) 29.9 pg 27.0-33.0 MEAN CORPUSCULAR HEMOGLOBIN CONC (BEAKER) (test kgge=768) 32.6 GM/DL 32.0-36.0 RED CELL DISTRIBUTION WIDTH (BEAKER) (test ffbg=985) 15.1 % 10.3-14.2 PLATELET COUNT (BEAKER) (test ybdj=603) 187 K/CU MM 150-430 MEAN PLATELET VOLUME (BEAKER) (test iigt=132) 8.8 fL 6.5-10.5 NUCLEATED RED BLOOD CELLS (BEAKER) (test jhyg=916) 0 /100 WBC 0-0 NEUTROPHILS RELATIVE PERCENT (BEAKER) (test susx=909) 70 % LYMPHOCYTES RELATIVE PERCENT (BEAKER) (test ytsg=498) 22 % MONOCYTES RELATIVE PERCENT (BEAKER) (test gydr=909) 9 % EOSINOPHILS RELATIVE PERCENT (BEAKER) (test pmwr=582) 0 % BASOPHILS RELATIVE PERCENT (BEAKER) (test tfxa=554) 0 % NEUTROPHILS ABSOLUTE COUNT (BEAKER) (test gjtc=278) 3.14 K/ L 1.80-8.00 LYMPHOCYTES ABSOLUTE COUNT (BEAKER) (test dmxr=208) 0.97 K/ L 1.48-4.50 MONOCYTES ABSOLUTE COUNT (BEAKER) (test cidp=931) 0.40 K/ L 0.00-1.30 EOSINOPHILS ABSOLUTE COUNT (BEAKER) (test ngaz=615) 0.00 K/ L 0.00-0.50 BASOPHILS ABSOLUTE COUNT (BEAKER) (test ayvm=642) 0.01 K/ L 0.00-0.20 POCT-GLUCOSE [id number] 02:14:00* Test Item Value Reference Range Comments POC-GLUCOSE METER (BEAKER) (test pccv=3510) 237 mg/dL 70-110 TESTED AT [facility] [place] [address] HEPATITIS B SURFACE [id number] 21:30:00* Test Item Value Reference Range Comments HEPATITIS B SURFACE ANTIBODY (BEAKER) (test lmes=378) 4951.3 mIU/mL <8.0 HEPATITIS B SURFACE [id number] 11:34:00* Test Item Value Reference Range Comments HEPATITIS B SURFACE ANTIGEN (2) (BEAKER) (test sxkx=3063) Nonreactive Nonreactive CT, [id number] 01:43:00Reason for exam:->ABDOMINAL PAINIs the patient ?->UnknownWhat is the patient's sedation requirement?->No SedationFINAL REPORT CT, ABDOMEN \T\ PELVIS, WITHOUT IV CONTRAST INDICATION: Crohn dz suspected, non-acute abd pain/crampingABDOMINAL PAIN COMPAR LUCIA: August 31, 2016 TECHNIQUE: CT of the abdomen and pelvis WITHOUT intraven ous contrast. DOSE REDUCTION: Dose modulation, iterative reconstruction, and/or weight-based adjustment of the mA/kV was utilized to reduce the radiation dose t o as low as reasonably achievable. FINDINGS:NOTE: Absence of intravenous contra st decreases sensitivity for focal lesions and vascular pathology. Lower thorax : Unremarkable Liver: No parenchymal abnormality.Gallbladder and biliary tree: P rior cholecystectomy.Pancreas: No acute findings.Spleen: No acute findingsAdrena l Glands: No acute findings.Kidneys and ureters: Stable, crossed, fused renal ec topia. No hydronephrosis. No renal calculus.Bladder and reproductive organs: Unr emarkable. Stomach and Duodenum: No significant findings.Small and large intesti ne: No small bowel dilation. Mural thickening of the transverse and ascending co zeke suboptimally demonstrated. There is no pneumatosis.Appendix: The appendix is not identified. No pericecal inflammatory changes are present. Major vascular s tructures: Normal aortic caliber.Peritoneum and retroperitoneum: No free air, fl uid or adenopathy. Skeleton: No acute bony abnormality.Additional findings: None. IMPRESSION: Limited noncontrast evaluation demonstrates mural thickening of the transverse and descending colon, suggesting infectious/inflammatory colit is. No pneumatosis or bowel obstruction. Signed: JR Thomas Robert MDRepo rt Verified Date/Time: 03/01/2018 01:43:10 Reading Location: [facility] C013[facility] [place] [facility] Reading Room Electronically signed by: LISA THOMAS on 8 01:43 AM HCG, SERUM, [id number] 00:59:00* Test Item Value Reference Range Comments TEST SERUM (BEAKER) (test yhow=493) Negative KETONE, [id number] 00:57:00* Test Item Value Reference Range Comments ACETONE SERUM QUANT (BEAKER) (test cnka=8450) Moderate Negative BLOOD GAS, [id number] 00:48:00* Test Item Value Reference Range Comments PH VENOUS (BEAKER) (test kgaz=833) 7.42 7.32-7.42 PCO2 VENOUS (BEAKER) (test rudw=592) 36 mmHg 41-51 PO2 VENOUS (BEAKER) (test wxyl=588) 53 mmHg 25-40 O2 SATURATION VENOUS (BEAKER) (test kytv=382) 84.9 % 40.0-70.0 HCO3 VENOUS (BEAKER) (test xjjs=489) 23 mmol/L 21-29 BASE EXCESS VENOUS (BEAKER) (test wyvv=510) -1.1 mmol/L -2.0-3.0 PATIENT TEMPERATURE (BEAKER) (test ykzv=7732) 37.0 C CBC W/PLT COUNT & AUTO [id number] 00:36:00* Test Item Value Reference Range Comments WHITE BLOOD CELL COUNT (BEAKER) (test iepy=855) 6.7 K/ L 4.0-10.0 RED BLOOD CELL COUNT (BEAKER) (test oply=026) 3.42 M/ L 4.00-5.00 HEMOGLOBIN (BEAKER) (test eods=793) 10.2 GM/DL 12.0-15.0 HEMATOCRIT (BEAKER) (test cesw=332) 31.4 % 36.0-45.0 MEAN CORPUSCULAR VOLUME (BEAKER) (test qaeo=001) 91.8 fL 82.0-99.0 MEAN CORPUSCULAR HEMOGLOBIN (BEAKER) (test spaa=688) 29.8 pg 27.0-33.0 MEAN CORPUSCULAR HEMOGLOBIN CONC (BEAKER) (test eybk=088) 32.5 GM/DL 32.0-36.0 RED CELL DISTRIBUTION WIDTH (BEAKER) (test roee=668) 15.4 % 10.3-14.2 PLATELET COUNT (BEAKER) (test bimw=626) 200 K/CU MM 150-430 MEAN PLATELET VOLUME (BEAKER) (test vaey=006) 9.4 fL 6.5-10.5 NUCLEATED RED BLOOD CELLS (BEAKER) (test yqmy=877) 0 /100 WBC 0-0 (MANUAL DIFFERENTIAL)2018-03-01 00:36:00* Test Item Value Reference Range Comments NEUTROPHILS - REL (DIFF) (BEAKER) (test payx=5608) 88 % LYMPHOCYTES - REL (DIFF) (BEAKER) (test trlc=0170) 9 % MONOCYTES - REL (DIFF) (BEAKER) (test plym=8803) 3 % NEUTROPHILS - ABS (DIFF) (BEAKER) (test ydsk=1892) 5.90 K/ L 1.80-8.00 LYMPHOCYTES - ABS (DIFF) (BEAKER) (test unbn=3201) 0.60 K/ L 1.48-4.50 MONOCYTES - ABS (DIFF) (BEAKER) (test rpoj=5537) 0.20 K/ L 0.00-1.30 TOTAL COUNTED (BEAKER) (test holk=4825) 100 WBC MORPHOLOGY (BEAKER) (test spmj=141) Normal PLT MORPHOLOGY (BEAKER) (test wyhr=706) Normal RBC MORPHOLOGY (BEAKER) (test fajw=531) Normal COMPREHENSIVE METABOLIC [id number] 00:36:00* Test Item Value Reference Range Comments TOTAL PROTEIN (BEAKER) (test cxpc=379) 7.4 gm/dL 6.0-8.5 ALBUMIN (BEAKER) (test iued=6219) 4.2 g/dL 3.5-5.0 ALKALINE PHOSPHATASE (BEAKER) (test fddu=470) 75 U/L 30-115 BILIRUBIN TOTAL (BEAKER) (test towl=366) 0.5 mg/dL 0.1-1.2 SODIUM (BEAKER) (test fqhd=284) 137 meq/L 135-148 POTASSIUM (BEAKER) (test jjup=769) 4.3 meq/L 3.6-5.5 CHLORIDE (BEAKER) (test jovg=008) 95 meq/L 98-106 CO2 (BEAKER) (test dhwf=695) 23 meq/L 20-29 BLOOD UREA NITROGEN (BEAKER) (test mzdx=706) 50 mg/dL 10-26 CREATININE (BEAKER) (test whma=517) 9.52 mg/dL 0.50-1.20 GLUCOSE RANDOM (BEAKER) (test xmbt=403) 207 mg/dL 70-110 CALCIUM (BEAKER) (test vzop=781) 10.1 mg/dL 8.5-10.5 AST (SGOT) (BEAKER) (test uhfp=282) 8 U/L 5-40 ALT (SGPT) (BEAKER) (test lcuu=998) 7 U/L 5-50 EGFR (BEAKER) (test kltv=5151) 6 mL/min/1.73 sq m ESTIMATED GFR IS NOT ACCURATE CREATININE CLEARANCE IN PREDICTING GLOMERULAR FILTRATION RATE. ESTIMATED GFR IS NOT APPLICABLE FOR DIALYSIS PATIENTS. [id number] 00:30:00* Test Item Value Reference Range Comments LIPASE (BEAKER) (test iebz=252) 27 U/L 6-51 HEPATITIS B SURFACE ANTIGEN 2018-02-27 04:05:00* Test Item Value Reference Range Comments HBSAG (test code=HBSAG) NON-REACTIVE NON-REACTIVE HEPATITIS B SURFACE ANTIBODY 2018-02-27 03:55:00* Test Item Value Reference Range Comments HBSAB (test code=HBSAB) REACTIVE REACTIVE GLUCOMETER GLUCOSE- LAB USE [id number] 17:35:00* Test Item Value Reference Range Comments GLUCOMETER (test code=GMG) 171 mg/dL 70-100 CLEANED METERMeter ID: [id number]: 5183 BRISEYDA PENA GLUCOMETER GLUCOSE- LAB USE [id number] 12:38:00* Test Item Value Reference Range Comments GLUCOMETER (test code=GMG) 158 mg/dL 70-100 CLEANED METERMeter ID: [id number]: 5183 BRISEYDA PENA GLYCOHEMOGLOBIN *WW*2018-02-26 08:49:00* Test Item Value [...] 13 IU/L <=78 GLUCOMETER GLUCOSE- LAB USE [id number] 06:13:00* Test Item Value Reference Range Comments GLUCOMETER (test code=GMG) 104 mg/dL 70-100 CLEANED METERMeter ID: [id number]: 2014 HAILEY LAIRD CBC (INCLUDES AUTOMATED DIFFERENTIAL)*[id number] 05:59:00* Test Item Value Reference Range Comments [...] (test code=WRBCMOR) NORMAL GLUCOMETER GLUCOSE- LAB USE [id number] 00:28:00* Test Item Value Reference Range Comments GLUCOMETER (test code=GMG) 110 mg/dL 70-100 Meter ID: [id number]: 2013 HAILEY PULIBO GLUCOMETER GLUCOSE- LAB USE [id number] 22:52:00* Test Item Value Reference Range Comments GLUCOMETER (test code=GMG) 60 mg/dL 70-100 CLEANED METERMeter ID: [id number]: 2013 HAILEY PULIBO GLUCOMETER GLUCOSE- LAB USE [id number] 22:11:00* Test Item Value Reference Range Comments GLUCOMETER (test code=GMG) 46 mg/dL 70-100 CLEANED METERMeter ID: [id number]: 2013 HAILEY PULIBO GLUCOMETER GLUCOSE- LAB USE [id number] 20:07:00* Test Item Value Reference Range Comments GLUCOMETER (test code=GMG) 52 mg/dL 70-100 CLEANED METERMeter ID: [id number]: 2013 HAILEY PULIBO GLUCOMETER GLUCOSE- LAB USE [id number] 16:11:00* Test Item Value Reference Range Comments GLUCOMETER (test code=GMG) 294 mg/dL 70-100 Meter ID: [id number]: 5354 [employer] GLUCOMETER GLUCOSE- LAB USE [id number] 12:40:00* Test Item Value Reference Range Comments GLUCOMETER (test code=GMG) 327 mg/dL 70-100 Meter ID: [id number]: [address] ABDOMEN AND PELVIS WITHOUT CONTRAST *WW*2018-02-25 09:17:57CT abdomen and pelvis without contrastLocation Code: A7IBYUNEBF HISTORY: Abdominal painCOMPARISON: 02/12/2018 02/04/2018, 12/16/2017, 09/12/2017Technique: [...] code=60A) 121 IU/L 73-393 CBC (INCLUDES AUTOMATED DIFFERENTIAL)*[id number] 08:19:00* Test Item Value Reference Range Comments [...] (test code=WRBCMOR) NORMAL CHEST SINGLE (PORTABLE)2018-02-13 01:17:00 [place] [address] Patient Name: DEMETRI CROSS MR #: [id number] : 1990 Age/Sex: 27/F Req #: [id number] Adm Physician: Ordered by: TANIA SANTIZO MD Report #: [id number] Location: ER Room/Bed: Procedure: [id number] DX/CHEST SINGLE (POR TABLE) Exam Date: 02/13/18 [...] COPY TO: TANIA PEREZ MD CT ABDOMEN/PELVIS [id number] 01:09:00 [place] [address] Patient Name: DEMETRI CROSS MR #: [id number] : 1990 Age/Sex: 27/F Req #: [id number] Adm Physician: Ordered by: TANIA SANTIZO MD Report #: [id number] Location: ER Room/Bed: Procedure: [id number] CT/CT ABDOMEN/PELVIS WO Exam Date: 02/13/18 Exam Time: 0040 REPORT STATUS: Signed EXAM: CT ABDOMEN AND PELVIS without IV CONTRAST INDICATION: Nausea, vomiting, abdominal pain COMPARISON: CT of the abdomen and pelvis J 2017 TECHNIQUE: The abdomen and pelvis were [...] AM Dictated By: JUAN RAMON RIVAS MD Electronic[employer]ly Signed By: JUAN RAMON RIVAS MD on 02/13/18116 Transcribed By: MASOUD on 116 COPY TO: TANIA SANTIZO MD CT ABDOMEN AND PELVIS WITHOUT CONTRAST 2018-02-12 19:15:02LOCATION: [id number]: 27-year-old female with upper abdominal pain.COMMENT: Field [...] localized in the pelvis.XR CHEST 2 VIEW *WW*2018-02-12 18:57:21 LOCATION: [id number]: 27-year-old female with upper abdominal pain.COMMENT: F rontal and lateral chest radiographs were obtained. An older study of 02/04/18 i s available for comparison.The lungs are clear and well-aerated. The cardiac doris houette, art, andmediastinum are within normal limits. The skeleton and soft ti ssues areunremarkable. Again seen is a single lumen right subclavian port.IMPRES JOVANNY:Unremarkable radiographic examination of the chest.AMYLASE AND LIPASE [...] ALT (test code=31A) 12 IU/L <=78 MAGNESIUM WW2018-02-12 18:16:00* Test Item Value Reference Range Comments MAGNESIUM (test code=48A) 1.8 mg/dL 1.8-2.4 CARDIAC PROFILE 2018-02-12 18:03:00* Test Item Value Reference Range Comments TROPONIN I (test code=A84) <0.015 ng/mL 0.000-0.045 CKMB (test code=A49) 3.0 ng/mL <=3.6 CPK (test code=32A) 58 IU/L 26-192 PHOSPHORUS (P04) *WW*2018-02-12 18:02:00* Test Item Value Reference Range Comments PHOSPHORUS (test code=43D) 3.2 mg/dL 2.7-4.6 SERUM MONOCLONAL *WW*2018-02-12 17:58:00* Test Item Value Reference Range Comments PREG SRM (test code=PGS) NEGATIVE NEGATIVE CBC (INCLUDES AUTOMATED DIFFERENTIAL)*[id number] 17:52:00* Test Item Value Reference Range Comments [...] NO RBC MORPH (test code=WRBCMOR) NORMAL BLOOD [id number] 14:40:00* Test Item Value Reference Range Comments Culture Observations (test code=COB1) NO GROWTH AFTER 5 DAYS BLOOD [id number] 14:40:00* Test Item Value Reference Range Comments Culture Observations (test code=COB1) NO GROWTH AFTER 5 DAYS HEPATITIS B CORE ANTIBODY,[id number] 08:25:00* Test Item Value Reference Range Comments HEPATITIS B CORE AB TOTAL (test xnfv=[id number]) NON-REACTIVE NON-REACTIVE TEST PERFORMED AT:[facility] [address] [address]VIC STEWART M.D. GLUCOMETER GLUCOSE- LAB USE [id number] 15:46:00* Test Item Value Reference Range Comments GLUCOMETER (test code=GMG) 150 mg/dL 70-100 CLEANED METERMeter ID: [id number]: 9086 ANI SULLIVAN HEPATITIS B SURFACE [id number] 11:39:00* Test Item Value Reference Range Comments HBSAB (test code=HBSAB) REACTIVE REACTIVE HEPATITIS B SURFACE [id number] 11:26:00* Test Item Value Reference Range Comments HBSAG (test code=HBSAG) NON-REACTIVE NON-REACTIVE GLUCOMETER GLUCOSE- LAB USE [id number] 11:01:00* Test Item Value Reference Range Comments GLUCOMETER (test code=GMG) 216 mg/dL 70-100 CLEANED METERMeter ID: [id number]: 9086 ANI SULLIVAN GLUCOMETER GLUCOSE- LAB USE [id number] 05:46:00* Test Item Value Reference Range Comments GLUCOMETER (test code=GMG) 167 mg/dL 70-100 Meter ID: [id number]: 9358 MARIAA ROLLEMAN BASIC METABOLIC [id number] 05:01:00* Test Item Value Reference Range Comments [...] (test code=RBCMOR) NORMAL GLUCOMETER GLUCOSE- LAB USE [id number] 01:00:00* Test Item Value Reference Range Comments GLUCOMETER (test code=GMG) 153 mg/dL 70-100 Meter ID: [id number]: 9358 MARIAA LOZANO GLUCOMETER GLUCOSE- LAB USE [id number] 23:54:00* Test Item Value Reference Range Comments GLUCOMETER (test code=GMG) 47 mg/dL 70-100 Meter ID: [id number]: 9358 MARIAA LOZANO GLUCOMETER GLUCOSE- LAB USE [id number] 17:32:00* Test Item Value Reference Range Comments GLUCOMETER (test code=GMG) 372 mg/dL 70-100 CLEANED METERMeter ID: [id number]: 9086 ANI SULLIVAN GLUCOMETER GLUCOSE- LAB USE [id number] 15:51:00* Test Item Value Reference Range Comments GLUCOMETER (test code=GMG) 364 mg/dL 70-100 CLEANED METERMeter ID: [id number]: 9150 PAMELA LOONEY GLUCOMETER GLUCOSE- LAB USE [id number] 11:54:00* Test Item Value Reference Range Comments GLUCOMETER (test code=GMG) 354 mg/dL 70-100 CLEANED METERMeter ID: [id number]: [address] ABDOMEN AND PELVIS WITHOUT CONTRAST *WW*2018-02-04 10:04:49CT abdomen and pelvis without contrastLocation Code: C7MWKBYUYK HISTORY: [id number]: Abdominal [id number]: Crohn's diseaseCOMPARISON: 12/16/17Technique: Helical CT of the [...] code=60A) 173 IU/L 73-393 CBC (INCLUDES AUTOMATED DIFFERENTIAL)*[id number] 08:57:00* Test Item Value Reference Range Comments [...] osseous structures areunremarkable.IMPRESSION: No acute cardiopulmonary process.LOCATION: A1RAD, MANDIBLE, LESS THAN 4 [id number] 13:44:00Reason for exam:->jaw painFINAL REPORT TECHNIQUE: Frontal view of the mandible dated 01/21/2018. HISTORY: Jaw pain. COMPARISON: None IMPRESSION:The patient was unable to perform the additional images. No fracture seen on this image provided. Bones are normal in density. No radiodense foreign body or subcutaneous emphysema s een. Signed: Reba James MDReport Verified Date/Time: 01/21/2018 13:44:3 2 Reading Location: [facility] Radiology Reading Room ASE AND LIPASE *WW*2018-01-17 16:38:00* Test Item Value Reference Range Comments AMYLASE (test code=10A) 109 U/L 28-100 LIPASE (test code=60A) 117 IU/L 73-393 COMPREHENSIVE METABOLIC FULTNO *WW*2018-01-17 16:38:00* Test Item Value Reference Range [...] code=31A) <6 IU/L <=78 CBC (INCLUDES AUTOMATED DIFFERENTIAL)*[id number] 16:23:00* Test Item Value Reference Range Comments [...] NO RBC MORPH (test code=WRBCMOR) NORMAL BLOOD [id number] 07:26:00* Test Item Value Reference Range Comments Culture Observations (test code=COB1) NO GROWTH AFTER 5 DAYS BLOOD [id number] 07:25:00* Test Item Value Reference Range Comments Culture Observations (test code=COB1) NO GROWTH AFTER 5 DAYS BASIC METABOLIC [id number] 16:39:00* Test Item Value Reference Range Comments [...] 8.6 mg/dL 8.3-9.5 GLUCOMETER GLUCOSE- LAB USE [id number] 12:28:00* Test Item Value Reference Range Comments GLUCOMETER (test code=GMG) 256 mg/dL 70-100 DAILY MAINTENANCEMeter ID: [id number]: 9277 ЕКАТЕРИНАTruckilyHEALTHSOUTH REHABILITATION HOS[facility] SOUTHERN ARIZONATwiigg METABOLIC [id number] 11:14:00* Test Item Value Reference Range Comments [...] 8.8 mg/dL 8.3-9.5 GLUCOMETER GLUCOSE- LAB USE [id number] 08:19:00* Test Item Value Reference Range Comments GLUCOMETER (test code=GMG) 478 mg/dL 70-100 Meter ID: [id number]: 9277 [employer] BASIC METABOLIC [id number] 06:12:00* Test Item Value Reference Range Comments [...] PORTABLE 2018-01-04 20:17:30EXAM: Portable chest x- rayLOCATION: B39PQOJWIGFTA: [id number]: Chest [id number]: Dyspnea. COMPARISON: chest radiograph 08/04/17DISCUSSION:A single AP [...] 141 IU/L 73-393 PRO TIME AND PTT *WW*2018-01-04 19:15:00* Test Item Value Reference Range Comments [...] Order Code is ANTI-XA CBC (INCLUDES AUTOMATED DIFFERENTIAL)*[id number] 19:00:00* Test Item Value Reference Range Comments [...] NO RBC MORPH (test code=WRBCMOR) NORMAL U/S PELVIS*WW*2017-12-16 19:38:58LOCATION: [id number]: 27-year-old female who presents with adnexal masses [...] right ovary are unremarkable.CT STONE PROTOCOL STUDY *WW*2017-12-16 17:56:37CT OF THE ABDOMEN AND PELVIS WITHOUT CONTRAST, RENAL STONE PROTOCOLLOCATION CODE: [id number]: Abdominal pain Comparison: CT dated 11/16/17, ultrasound [...] Order Code is ANTI-XA CBC (INCLUDES AUTOMATED DIFFERENTIAL)*[id number] 16:47:00* Test Item Value Reference Range Comments [...] code=60A) 220 IU/L 73-393 COMPREHENSIVE METABOLIC FULTON *WW*2017-12-16 16:41:00* Test Item Value Reference Range [...] PREG SRM (test code=PGS) NEGATIVE NEGATIVE MAGNESIUM 2017-12-16 16:35:00* Test Item Value Reference Range Comments MAGNESIUM (test code=48A) 1.8 mg/dL 1.8-2.4 GLUCOMETER GLUCOSE- LAB USE [id number] 12:10:00* Test Item Value Reference Range Comments GLUCOMETER (test code=GMG) 92 mg/dL 70-100 Meter ID: [id number]: 5183 BRISEYDA PENA BASIC METABOLIC PANEL 2017-11-20 06:27:00* Test Item Value Reference Range Comments [...] code=09D) 8.7 mg/dL 8.3-9.5 CBC (INCLUDES AUTOMATED DIFFERENTIAL)*[id number] 06:14:00* Test Item Value Reference Range Comments [...] (test code=WRBCMOR) NORMAL GLUCOMETER GLUCOSE- LAB USE [id number] 06:06:00* Test Item Value Reference Range Comments GLUCOMETER (test code=GMG) 84 mg/dL 70-100 Meter ID: [id number]: 2013 HAILEY [employer] GLUCOMETER GLUCOSE- LAB USE [id number] 21:21:00* Test Item Value Reference Range Comments GLUCOMETER (test code=GMG) 110 mg/dL 70-100 Meter ID: [id number]: 2013 HAILEY PULIBO GLUCOMETER GLUCOSE- LAB USE [id number] 15:53:00* Test Item Value Reference Range Comments GLUCOMETER (test code=GMG) 142 mg/dL 70-100 Meter ID: [id number]: 5354 DAVID [employer] GLUCOMETER GLUCOSE- LAB USE [id number] 12:06:00* Test Item Value Reference Range Comments GLUCOMETER (test code=GMG) 165 mg/dL 70-100 Meter ID: [id number]: 5354 [employer] GLUCOMETER GLUCOSE- LAB USE [id number] 08:50:00* Test Item Value Reference Range Comments GLUCOMETER (test code=GMG) 182 mg/dL 70-100 DAILY MAINTENANCEMeter ID: [id number]: 5354 DAVID MANZO GLUCOMETER GLUCOSE- LAB USE [id number] 07:33:00* Test Item Value Reference Range Comments GLUCOMETER (test code=GMG) 60 mg/dL 70-100 Meter ID: [id number]: 9210 FABIEN CÁRDENAS BASIC METABOLIC PANEL 2017-11-19 06:42:00* Test Item [...] code=09D) 9.6 mg/dL 8.3-9.5 CBC (INCLUDES AUTOMATED DIFFERENTIAL)*[id number] 06:10:00* Test Item Value Reference Range Comments [...] (test code=WRBCMOR) NORMAL GLUCOMETER GLUCOSE- LAB USE [id number] 20:25:00* Test Item Value Reference Range Comments GLUCOMETER (test code=GMG) 170 mg/dL 70-100 CLEANED METERMeter ID: [id number]: 5533 SURESH HUNT GLUCOMETER GLUCOSE- LAB USE [id number] 19:15:00* Test Item Value Reference Range Comments GLUCOMETER (test code=GMG) 168 mg/dL 70-100 CLEANED METERMeter ID: [id number]: 1429 RAMÍREZ FENG HEPATITIS B SURFACE ANTIGEN *WW*2017-11-18 12:32:00* Test Item Value Reference Range Comments HBSAG (test code=HBSAG) NON-REACTIVE NON-REACTIVE GLUCOMETER GLUCOSE- LAB USE [id number] 12:30:00* Test Item Value Reference Range Comments GLUCOMETER (test code=GMG) 117 mg/dL 70-100 CLEANED METERMeter ID: [id number]: 1429 RAMÍREZ FENG BASIC METABOLIC PANEL *WW*2017-11-18 06:04:00* Test Item Value Reference Range Comments [...] code=09D) 9.7 mg/dL 8.3-9.5 CBC (INCLUDES AUTOMATED DIFFERENTIAL)*[id number] 05:48:00* Test Item Value Reference Range Comments [...] (test code=WRBCMOR) NORMAL GLUCOMETER GLUCOSE- LAB USE [id number] 20:06:00* Test Item Value Reference Range Comments GLUCOMETER (test code=GMG) 196 mg/dL 70-100 Meter ID: [id number]: 5533 SURESH RUIZA GLUCOMETER GLUCOSE- LAB USE [id number] 16:49:00* Test Item Value Reference Range Comments GLUCOMETER (test code=GMG) 149 mg/dL 70-100 CLEANED METERMeter ID: [id number]: 1429 RAMÍREZ FENG GLUCOMETER GLUCOSE- LAB USE [id number] 12:24:00* Test Item Value Reference Range Comments GLUCOMETER (test code=GMG) 94 mg/dL 70-100 CLEANED METERMeter ID: [id number]: 1429 RAMÍREZ FENG U/S PELVIS*WW*2017-11-17 09:52:19EXAMINATION: U/S PELVIS*WW*.LOCATION: D4.HISTORY: Abdominal [...] in right adnexa is appreciated sonographically. Consider jvuzk-zpeqfvkwdi-wp ultrasound.P elvic right kidney, better appreciated on [...] code=09D) 8.9 mg/dL 8.3-9.5 CBC (INCLUDES AUTOMATED DIFFERENTIAL)*[id number] 05:49:00* Test Item Value Reference Range Comments [...] (test code=WRBCMOR) NORMAL GLUCOMETER GLUCOSE- LAB USE [id number] 23:12:00* Test Item Value Reference Range Comments GLUCOMETER (test code=GMG) 457 mg/dL 70-100 Meter ID: [id number]: [address] ABDOMEN AND PELVIS WITHOUT CONTRAST *WW*2017-11-16 [...] code=60A) 295 IU/L 73-393 CBC (INCLUDES AUTOMATED DIFFERENTIAL)*[id number] 19:55:00* Test Item Value Reference Range Comments [...] Comments HEPATITIS B CORE AB TOTAL (test xtkp=[id number]) NON-REACTIVE NON-REACTIVE TEST PERFORMED AT:[facility] [id number] [place] [address]VIC STEWART M.D. HEPATITIS B SURFACE ANTIGEN 2017-11-02 15:53:00* Test Item Value Reference Range Comments HBSAG (test code=HBSAG) NON-REACTIVE NON-REACTIVE HEPATITIS B SURFACE ANTIBODY 2017-11-02 15:41:00* Test Item Value Reference Range Comments HBSAB (test code=HBSAB) REACTIVE REACTIVE GLUCOMETER GLUCOSE- LAB USE [id number] 11:17:00* Test Item Value Reference Range Comments GLUCOMETER (test code=GMG) 120 mg/dL 70-100 DAILY MAINTENANCEMeter ID: [id number]: 9016 [facility] BASIC METABOLIC PANEL 2017-11-02 06:34:00* Test Item [...] 7.4 mg/dL 8.3-9.5 GLUCOMETER GLUCOSE- LAB USE [id number] 05:41:00* Test Item Value Reference Range Comments GLUCOMETER (test code=GMG) 150 mg/dL 70-100 Meter ID: [id number]: 9125 CARLOS DONAHUE XR ABDOMEN 2 VIEWS W/PA CHEST 2017-11-02 00:06:35CHEST AND ABDOMEN RADIOGRAPHSLOCATION: R16.INDICATION: [id number]: Abdominal pain.TECHNIQUE: PA radiograph of the chest; [...] (test code=PGS) NEGATIVE NEGATIVE CBC (INCLUDES AUTOMATED DIFFERENTIAL)*[id number] 23:26:00* Test Item Value Reference Range Comments [...] MORPH (test code=WRBCMOR) NORMAL HEPATITIS B SURFACE [id number] 13:53:00* Test Item Value Reference Range Comments HEPATITIS B SURFACE ANTIBODY (BEAKER) (test ypzb=232) 6367.4 mIU/mL <8.0 HEPATITIS B CORE ANTIBODY, [id number] 13:39:00* Test Item Value Reference Range Comments HEPATITIS B CORE TOTAL ANTIBODY (BEAKER) (test nght=968) Nonreactive Nonreactive POCT-GLUCOSE [id number] 13:09:00* Test Item Value Reference Range Comments POC-GLUCOSE METER (BEAKER) (test dhao=0915) 115 mg/dL 70-110 TESTED AT [facility] [address] [facility] [address] POCT-GLUCOSE [id number] 06:08:00* Test Item Value Reference Range Comments POC-GLUCOSE METER (BEAKER) (test xocc=2728) 242 mg/dL 70-110 TESTED AT [facility] [address] [facility] [address] BASIC METABOLIC [id number] 05:41:00* Test Item Value Reference Range Comments SODIUM (BEAKER) (test njjx=352) 140 meq/L 135-148 POTASSIUM (BEAKER) (test kllm=829) 4.7 meq/L 3.6-5.5 CHLORIDE (BEAKER) (test xogu=965) 99 meq/L 98-106 CO2 (BEAKER) (test ibkm=575) 21 meq/L 20-29 BLOOD UREA NITROGEN (BEAKER) (test ctqw=713) 23 mg/dL 10-26 CREATININE (BEAKER) (test fwnj=409) 5.80 mg/dL 0.50-1.20 GLUCOSE RANDOM (BEAKER) (test usqt=462) 259 mg/dL 70-110 CALCIUM (BEAKER) (test tjxb=878) 9.4 mg/dL 8.5-10.5 EGFR (BEAKER) (test bszx=2434) 11 mL/min/1.73 sq m ESTIMATED GFR IS NOT ACCURATE CREATININE CLEARANCE IN PREDICTING GLOMERULAR FILTRATION RATE. ESTIMATED GFR IS NOT APPLICABLE FOR DIALYSIS PATIENTS. CBC W/PLT COUNT & AUTO [id number] 05:10:00* Test Item Value Reference Range Comments WHITE BLOOD CELL COUNT (BEAKER) (test ovqa=995) 5.5 K/ L 4.0-10.0 RED BLOOD CELL COUNT (BEAKER) (test xkpa=811) 4.41 M/ L 4.00-5.00 HEMOGLOBIN (BEAKER) (test osfp=887) 12.6 GM/DL 12.0-15.0 HEMATOCRIT (BEAKER) (test mgcp=629) 39.1 % 36.0-45.0 MEAN CORPUSCULAR VOLUME (BEAKER) (test nkod=559) 88.5 fL 82.0-99.0 MEAN CORPUSCULAR HEMOGLOBIN (BEAKER) (test zizx=607) 28.5 pg 27.0-33.0 MEAN CORPUSCULAR HEMOGLOBIN CONC (BEAKER) (test nmga=842) 32.2 GM/DL 32.0-36.0 RED CELL DISTRIBUTION WIDTH (BEAKER) (test ykka=831) 15.4 % 10.3-14.2 PLATELET COUNT (BEAKER) (test qkxn=337) 249 K/CU MM 150-430 MEAN PLATELET VOLUME (BEAKER) (test ymlv=827) 7.7 fL 6.5-10.5 NUCLEATED RED BLOOD CELLS (BEAKER) (test sepd=891) 0 /100 WBC 0-0 NEUTROPHILS RELATIVE PERCENT (BEAKER) (test uows=699) 78 % LYMPHOCYTES RELATIVE PERCENT (BEAKER) (test bzqf=509) 14 % MONOCYTES RELATIVE PERCENT (BEAKER) (test nmyd=790) 5 % EOSINOPHILS RELATIVE PERCENT (BEAKER) (test xgnx=046) 3 % BASOPHILS RELATIVE PERCENT (BEAKER) (test omoc=147) 0 % NEUTROPHILS ABSOLUTE COUNT (BEAKER) (test ntbu=442) 4.30 K/ L 1.80-8.00 LYMPHOCYTES ABSOLUTE COUNT (BEAKER) (test hjrh=757) 0.80 K/ L 1.48-4.50 MONOCYTES ABSOLUTE COUNT (BEAKER) (test dagj=147) 0.30 K/ L 0.00-1.30 EOSINOPHILS ABSOLUTE COUNT (BEAKER) (test bugi=273) 0.10 K/ L 0.00-0.50 BASOPHILS ABSOLUTE COUNT (BEAKER) (test layk=222) 0.00 K/ L 0.00-0.20 POCT-GLUCOSE [id number] 20:53:00* Test Item Value Reference Range Comments POC-GLUCOSE METER (BEAKER) (test aexi=3061) 102 mg/dL 70-110 TESTED AT [address] [address] HEPATITIS B SURFACE [id number] 16:39:00* Test Item Value Reference Range Comments HEPATITIS B SURFACE ANTIGEN (2) (BEAKER) (test wyea=3997) Nonreactive Nonreactive POCT-GLUCOSE [id number] 16:23:00* Test Item Value Reference Range Comments POC-GLUCOSE METER (BEAKER) (test tmxj=1339) 132 mg/dL 70-110 TESTED AT [facility] [address] [facility] [address] POCT-GLUCOSE [id number] 12:16:00* Test Item Value Reference Range Comments POC-GLUCOSE METER (BEAKER) (test btqx=1241) 194 mg/dL 70-110 TESTED AT [facility] [address] [facility] [address] LIPID [id number] 06:17:00* Test Item Value Reference Range Comments TRIGLYCERIDES (BEAKER) (test qucx=430) 88 mg/dL Specimen slightly hemolyzed CHOLESTEROL (BEAKER) (test jozn=974) 148 mg/dL Specimen slightly hemolyzed HDL CHOLESTEROL (BEAKER) (test qfbf=932) 38 mg/dL LDL CHOLESTEROL CALCULATED (BEAKER) (test qilz=613) 92 mg/dL Triglyceride Reference Range: Low Risk <150 Borderline 150-199 High Risk 200-499 Very High Risk >=500Cholesterol Reference Range: Low Risk <200 Borderline 200-239 High Risk >240HDL Cholesterol Reference Range: Low Risk >=60 High Risk <40LDL Cholesterol Reference Range: Optimal <100 Near Optimal 100-129 Borderline 130-159 High 160-189 Very High >=190 BASIC METABOLIC [id number] 06:09:00* Test Item Value Reference Range Comments SODIUM (BEAKER) (test zbnz=719) 140 meq/L 135-148 POTASSIUM (BEAKER) (test ibnb=115) 4.4 meq/L 3.6-5.5 Specimen slightly hemolyzed CHLORIDE (BEAKER) (test vmbx=130) 101 meq/L 98-106 CO2 (BEAKER) (test quyy=171) 23 meq/L 20-29 BLOOD UREA NITROGEN (BEAKER) (test bhms=948) 44 mg/dL 10-26 CREATININE (BEAKER) (test vkxw=828) 8.60 mg/dL 0.50-1.20 Specimen slightly hemolyzed GLUCOSE RANDOM (BEAKER) (test iqbq=585) 109 mg/dL 70-110 CALCIUM (BEAKER) (test fdzf=847) 9.0 mg/dL 8.5-10.5 EGFR (BEAKER) (test sgej=1482) 7 mL/min/1.73 sq m ESTIMATED GFR IS NOT ACCURATE CREATININE CLEARANCE IN PREDICTING GLOMERULAR FILTRATION RATE. ESTIMATED GFR IS NOT APPLICABLE FOR DIALYSIS PATIENTS. POCT-GLUCOSE [id number] 06:05:00* Test Item Value Reference Range Comments POC-GLUCOSE METER (BEAKER) (test bksi=3684) 110 mg/dL 70-110 TESTED AT [facility] [address] [facility] [address] HEMOGLOBIN [id number] 05:52:00* Test Item Value Reference Range Comments HEMOGLOBIN A1C (BEAKER) (test dqjk=296) 9.8 % 4.3-6.1 CBC W/PLT COUNT & AUTO [id number] 05:52:00* Test Item Value Reference Range Comments WHITE BLOOD CELL COUNT (BEAKER) (test nkke=169) 5.9 K/ L 4.0-10.0 RED BLOOD CELL COUNT (BEAKER) (test mzyj=843) 3.91 M/ L 4.00-5.00 HEMOGLOBIN (BEAKER) (test voct=785) 11.3 GM/DL 12.0-15.0 HEMATOCRIT (BEAKER) (test mxly=047) 35.0 % 36.0-45.0 MEAN CORPUSCULAR VOLUME (BEAKER) (test tomd=278) 89.5 fL 82.0-99.0 MEAN CORPUSCULAR HEMOGLOBIN (BEAKER) (test xvvw=101) 28.8 pg 27.0-33.0 MEAN CORPUSCULAR HEMOGLOBIN CONC (BEAKER) (test tagh=762) 32.1 GM/DL 32.0-36.0 RED CELL DISTRIBUTION WIDTH (BEAKER) (test esma=836) 14.9 % 10.3-14.2 PLATELET COUNT (BEAKER) (test mpwu=838) 222 K/CU MM 150-430 MEAN PLATELET VOLUME (BEAKER) (test dcyl=472) 7.6 fL 6.5-10.5 NUCLEATED RED BLOOD CELLS (BEAKER) (test anuy=585) 0 /100 WBC 0-0 NEUTROPHILS RELATIVE PERCENT (BEAKER) (test kxve=532) 59 % LYMPHOCYTES RELATIVE PERCENT (BEAKER) (test qcqd=107) 29 % MONOCYTES RELATIVE PERCENT (BEAKER) (test fyab=604) 8 % EOSINOPHILS RELATIVE PERCENT (BEAKER) (test qrmm=720) 4 % BASOPHILS RELATIVE PERCENT (BEAKER) (test tqob=494) 0 % NEUTROPHILS ABSOLUTE COUNT (BEAKER) (test qtmu=469) 3.50 K/ L 1.80-8.00 LYMPHOCYTES ABSOLUTE COUNT (BEAKER) (test bkvj=233) 1.70 K/ L 1.48-4.50 MONOCYTES ABSOLUTE COUNT (BEAKER) (test qubx=665) 0.50 K/ L 0.00-1.30 EOSINOPHILS ABSOLUTE COUNT (BEAKER) (test rmot=851) 0.30 K/ L 0.00-0.50 BASOPHILS ABSOLUTE COUNT (BEAKER) (test tkno=896) 0.00 K/ L 0.00-0.20 POCT-GLUCOSE [id number] 20:35:00* Test Item Value Reference Range Comments POC-GLUCOSE METER (BEAKER) (test klzh=7325) 106 mg/dL 70-110 TESTED AT [facility] [address] [place] [address] HEPATIC FUNCTION [id number] 14:34:00* Test Item Value Reference Range Comments TOTAL PROTEIN (BEAKER) (test nkwc=366) 8.4 gm/dL 6.0-8.5 ALBUMIN (BEAKER) (test oehq=9722) 4.5 g/dL 3.5-5.0 BILIRUBIN TOTAL (BEAKER) (test tcyw=683) 0.4 mg/dL 0.1-1.2 BILIRUBIN DIRECT (BEAKER) (test rsaw=457) 0.2 mg/dL 0.0-0.4 ALKALINE PHOSPHATASE (BEAKER) (test hkkh=198) 96 U/L 30-115 AST (SGOT) (BEAKER) (test yozl=531) 8 U/L 5-40 ALT (SGPT) (BEAKER) (test gbdo=338) 9 U/L 5-50 [id number] 14:34:00* Test Item Value Reference Range Comments LIPASE (BEAKER) (test idnd=821) 20 U/L 6-51 BASIC METABOLIC [id number] 14:33:00* Test Item Value Reference Range Comments SODIUM (BEAKER) (test ujey=486) 141 meq/L 135-148 POTASSIUM (BEAKER) (test pfat=075) 4.6 meq/L 3.6-5.5 CHLORIDE (BEAKER) (test jooi=114) 102 meq/L 98-106 CO2 (BEAKER) (test klip=797) 19 meq/L 20-29 BLOOD UREA NITROGEN (BEAKER) (test ejcp=713) 39 mg/dL 10-26 CREATININE (BEAKER) (test eeds=229) 7.10 mg/dL 0.50-1.20 GLUCOSE RANDOM (BEAKER) (test hwsl=259) 107 mg/dL 70-110 CALCIUM (BEAKER) (test tnuk=414) 9.8 mg/dL 8.5-10.5 EGFR (BEAKER) (test jcxr=8220) 8 mL/min/1.73 sq m ESTIMATED GFR IS NOT ACCURATE CREATININE CLEARANCE IN PREDICTING GLOMERULAR FILTRATION RATE. ESTIMATED GFR IS NOT APPLICABLE FOR DIALYSIS PATIENTS. HCG, QUANTITATIVE, [id number] 14:21:00* Test Item Value Reference Range Comments GONADOTROPIN, CHORIONIC (HCG) QUANT (BEAKER) (test qgkw=779) < mIU/mL 0-10 Non- Females: <10 mIU/mL Females: Gestation Age Reference Range(mIU/mL) 0.2-1 Week 5-50 1-2 Weeks 50-500 2-3 Weeks 100-5,000 3-4 Weeks 500-10,000 4-5 Weeks 1,000-50,000 5-6 Weeks 10,000-100,000 6-8 Weeks 15,000-200,000 2-3 Months 10,000-100,000 CBC W/PLT COUNT & AUTO [id number] 14:21:00* Test Item Value Reference Range Comments WHITE BLOOD CELL COUNT (BEAKER) (test agoq=448) 6.0 K/ L 4.0-10.0 RED BLOOD CELL COUNT (BEAKER) (test mrtw=651) 4.60 M/ L 4.00-5.00 HEMOGLOBIN (BEAKER) (test ykwx=331) 13.0 GM/DL 12.0-15.0 HEMATOCRIT (BEAKER) (test qmxo=221) 40.9 % 36.0-45.0 MEAN CORPUSCULAR VOLUME (BEAKER) (test xezb=667) 88.8 fL 82.0-99.0 MEAN CORPUSCULAR HEMOGLOBIN (BEAKER) (test nqkl=425) 28.3 pg 27.0-33.0 MEAN CORPUSCULAR HEMOGLOBIN CONC (BEAKER) (test wjgl=294) 31.8 GM/DL 32.0-36.0 RED CELL DISTRIBUTION WIDTH (BEAKER) (test amhi=205) 15.5 % 10.3-14.2 PLATELET COUNT (BEAKER) (test ixhs=371) 200 K/CU MM 150-430 MEAN PLATELET VOLUME (BEAKER) (test kitn=251) 8.0 fL 6.5-10.5 NUCLEATED RED BLOOD CELLS (BEAKER) (test vlow=571) 0 /100 WBC 0-0 NEUTROPHILS RELATIVE PERCENT (BEAKER) (test npno=682) 62 % LYMPHOCYTES RELATIVE PERCENT (BEAKER) (test amqw=603) 25 % MONOCYTES RELATIVE PERCENT (BEAKER) (test otpq=014) 5 % EOSINOPHILS RELATIVE PERCENT (BEAKER) (test qlym=025) 8 % BASOPHILS RELATIVE PERCENT (BEAKER) (test eslt=149) 0 % NEUTROPHILS ABSOLUTE COUNT (BEAKER) (test lres=861) 3.70 K/ L 1.80-8.00 LYMPHOCYTES ABSOLUTE COUNT (BEAKER) (test pixd=300) 1.50 K/ L 1.48-4.50 MONOCYTES ABSOLUTE COUNT (BEAKER) (test asxj=256) 0.30 K/ L 0.00-1.30 EOSINOPHILS ABSOLUTE COUNT (BEAKER) (test ybvl=145) 0.50 K/ L 0.00-0.50 BASOPHILS ABSOLUTE COUNT (BEAKER) (test hdak=198) 0.00 K/ L 0.00-0.20 KETONE, [id number] 13:46:00* Test Item Value Reference Range Comments KETONES, BLOOD (BEAKER) (test gcpv=0831) 0.4 mmol/L <0.4 GLUCOMETER GLUCOSE- LAB USE [id number] 10:47:00* Test Item Value Reference Range Comments GLUCOMETER (test code=GMG) 363 mg/dL 70-100 Meter ID: [id number]: 9208 NEDRA SALTER GLUCOMETER GLUCOSE- LAB USE [id number] 05:19:00* Test Item Value Reference Range Comments GLUCOMETER (test code=GMG) 193 mg/dL 70-100 Meter ID: [id number]: 9125 CARLOS DONAHUE GLUCOMETER GLUCOSE- LAB USE [id number] 20:30:00* Test Item Value Reference Range Comments GLUCOMETER (test code=GMG) 303 mg/dL 70-100 Meter ID: [id number]: 9125 CARLOS DONAHUE GLUCOMETER GLUCOSE- LAB USE [id number] 17:00:00* Test Item Value Reference Range Comments GLUCOMETER (test code=GMG) 138 mg/dL 70-100 Meter ID: [id number]: 9208 NEDRA SALTER GLUCOMETER GLUCOSE- LAB USE [id number] 12:28:00* Test Item Value Reference Range Comments GLUCOMETER (test code=GMG) 241 mg/dL 70-100 CLEANED METERMeter ID: [id number]: [address] [facility] METABOLIC [id number] 06:21:00* Test Item Value Reference Range Comments [...] Abdomen and pelvic CT without contrastLocation code: E0Hkqsspdkir: Abdomen and pelvic CT 09/12/17Technique:Axial noncontrast imaging [...] code=48A) 2.2 mg/dL 1.8-2.4 CBC (INCLUDES AUTOMATED DIFFERENTIAL)*[id number] 17:57:00* Test Item Value Reference Range Comments [...] Comments HEPATITIS B CORE AB TOTAL (test hwmi=[id number]) NON-REACTIVE NON-REACTIVE TEST PERFORMED AT:[facility] [address] [address]VIC STEWART M.D. COMPREHENSIVE METABOLIC [place] *WW*2017-09-13 07:10:00* [...] code=31A) 13 IU/L <=78 CBC (INCLUDES AUTOMATED DIFFERENTIAL)*[id number] 06:48:00* Test Item Value Reference Range Comments [...] (test code=WRBCMOR) NORMAL GLUCOMETER GLUCOSE- LAB USE [id number] 21:33:00* Test Item Value Reference Range Comments GLUCOMETER (test code=GMG) 122 mg/dL 70-100 Meter ID: [id number]: [facility]- LAB USE [id number] 16:30:00* Test Item Value Reference Range Comments GLUCOMETER (test code=GMG) 205 mg/dL 70-100 CLEANED METERMeter ID: [id number]: 0832 FLORA FORIO GLUCOMETER GLUCOSE- LAB USE [id number] 11:36:00* Test Item Value Reference Range Comments GLUCOMETER (test code=GMG) 122 mg/dL 70-100 CLEANED METERMeter ID: [id number]: [address] ABDOMEN AND PELVIS WITHOUT CONTRAST 2017-09-12 10:03:36CT abdomen and pelvis without contrastLocation Code: X6RPCKECRO HISTORY: [id number]: Crohn's diseaseCOMPARISON: 08/06/17Technique: Helical CT of the [...] code=31A) 11 IU/L <=78 CBC (INCLUDES AUTOMATED DIFFERENTIAL)*[id number] 06:08:00* Test Item Value Reference Range Comments [...] (test code=WRBCMOR) NORMAL GLUCOMETER GLUCOSE- LAB USE [id number] 21:45:00* Test Item Value Reference Range Comments GLUCOMETER (test code=GMG) 111 mg/dL 70-100 CLEANED METERMeter ID: [id number]: 2907 DARCIE KENDRICK HEPATITIS B SURFACE ANTIBODY *WW*2017-09-11 18:29:00* Test Item Value Reference Range Comments HBSAB (test code=HBSAB) REACTIVE REACTIVE HEPATITIS B SURFACE ANTIGEN *WW*2017-09-11 18:08:00* Test Item Value Reference Range Comments HBSAG (test code=HBSAG) NON-REACTIVE NON-REACTIVE GLUCOMETER GLUCOSE- LAB USE [id number] 16:26:00* Test Item Value Reference Range Comments GLUCOMETER (test code=GMG) 76 mg/dL 70-100 CLEANED METERMeter ID: [id number]: 0832 FLORA FORREBECA GLUCOMETER GLUCOSE- LAB USE [id number] 11:32:00* Test Item Value Reference Range Comments GLUCOMETER (test code=GMG) 178 mg/dL 70-100 CLEANED METERMeter ID: [id number]: 0832 FLORA CORDOVA COMPREHENSIVE METABOLIC FULTON *WW*2017-09-11 [...] code=31A) 13 IU/L <=78 CBC (INCLUDES AUTOMATED DIFFERENTIAL)*[id number] 06:06:00* Test Item Value Reference Range Comments [...] (test code=WRBCMOR) NORMAL GLUCOMETER GLUCOSE- LAB USE [id number] 20:04:00* Test Item Value Reference Range Comments GLUCOMETER (test code=GMG) 183 mg/dL 70-100 Meter ID: [id number]: 4268 ESTERLITA RORY GLUCOMETER GLUCOSE- LAB USE [id number] 16:19:00* Test Item Value Reference Range Comments GLUCOMETER (test code=GMG) 175 mg/dL 70-100 CLEANED METERMeter ID: [id number]: 2349 JANELLE SIOMARAMPI GLUCOMETER GLUCOSE- LAB USE [id number] 12:32:00* Test Item Value Reference Range Comments GLUCOMETER (test code=GMG) 61 mg/dL 70-100 CLEANED METERMeter ID: [id number]: 2349 JANELLE SIOMARAMPI GLUCOMETER GLUCOSE- LAB USE [id number] 12:15:00* Test Item Value Reference Range Comments GLUCOMETER (test code=GMG) 59 mg/dL 70-100 CLEANED METERMeter ID: [id number]: 2349 JANELLE BUKAMPI GLUCOMETER GLUCOSE- LAB USE [id number] 05:20:00* Test Item Value Reference Range Comments GLUCOMETER (test code=GMG) 221 mg/dL 70-100 Meter ID: [id number]: 5304 JOHN CONKLINZMAN GLUCOMETER GLUCOSE- LAB USE [id number] 22:02:00* Test Item Value Reference Range Comments GLUCOMETER (test code=GMG) 315 mg/dL 70-100 Meter ID: [id number]: 5304 JOHN MATTHEW AMYLASE AND LIPASE *WW*2017-09-09 [...] code=48A) 2.1 mg/dL 1.8-2.4 CBC (INCLUDES AUTOMATED DIFFERENTIAL)*[id number] 17:58:00* Test Item Value Reference Range Comments [...] code=48A) 1.9 mg/dL 1.8-2.4 CBC (INCLUDES AUTOMATED DIFFERENTIAL)*[id number] 20:03:00* Test Item Value Reference Range Comments [...] 773 mGy-cm CTDI 16.3 mGyCOMPREHENSIVE METABOLIC FULTON *WW* 2017-08-04 17:48:00* Test Item Value Reference Range [...] (test code=PGS) NEGATIVE NEGATIVE CBC (INCLUDES AUTOMATED DIFFERENTIAL)*[id number] 17:18:00* Test Item Value Reference Range Comments [...] disease.COMPARISON: 07/08/17TECHNIQUE: Frontal view of the chest.LOCATION: [id number]:There is a dual-lumen tunneled left internal jugular [...] code=60A) 134 IU/L 73-393 CBC (INCLUDES AUTOMATED DIFFERENTIAL)*[id number] 05:33:00* Test Item Value Reference Range Comments [...] (test code=WRBCMOR) NORMAL GLUCOMETER GLUCOSE- LAB USE [id number] 05:02:00* Test Item Value Reference Range Comments GLUCOMETER (test code=GMG) 323 mg/dL 70-100 Meter ID: [id number]: [address] ABDOMEN AND PELVIS WITHOUT CONTRAST *WW*2017-07-28 22:50:53CT SCAN OF THE ABDOMEN AND PELVIS WITHOUT CONTRASTAfter-hours services performed 07/28/2017 at 2220 hoursLocation: [id number] HISTORY: Abdominal pain end-stage renal disease and [...] hin it. Pelvicultrasound recommended.GLUCOMETER GLUCOSE- LAB USE [id number] 21:34:00* Test Item Value Reference Range Comments GLUCOMETER (test code=GMG) 222 mg/dL 70-100 Meter ID: [id number]: 5760 ASHIA HOLT CBC (INCLUDES AUTOMATED DIFFERENTIAL)*[id number] 21:33:00* Test Item Value Reference Range Comments [...] code=48A) 2.4 mg/dL 1.8-2.4 CBC (INCLUDES AUTOMATED DIFFERENTIAL)*[id number] 19:56:00* Test Item Value Reference Range Comments [...] Chest 1 view and Abdomen 2 viewsLocation code:E1IDFISQA: Abdominal pain .COMPARISON: None availableCOMMENT: A left [...] code=60A) 128 IU/L 73-393 CBC (INCLUDES AUTOMATED DIFFERENTIAL)*[id number] 11:05:00* Test Item Value Reference Range Comments [...] code=WRBCMOR) NORMAL DIRECT INFLUENZA A AND B [id number] 10:28:00* Test Item Value Reference Range Comments Direct Exam (test code=DE3) PRESUMPTIVE NEGATIVE FOR THE PRESENCE OF INFLUENZA ANTIGEN CT ABDOMEN AND PELVIS WITHOUT CONTRAST *WW*2017-07-08 22:29:47LOCATION: [id number]: 26-year-old female who presents with abdominal pain. The patient has ahistory of ESRD.COMMENT: After-hours service at 10:[address] imaging of this patient's abdomen and pelvis was obtained without IVcontrast. Coronal and sagittal soft tissue reconstructions were included. Igwvt4Zgo or more of the following dose reduction [...] code=09D) 9.0 mg/dL 8.3-9.5 CBC (INCLUDES AUTOMATED DIFFERENTIAL)*[id number] 20:22:00* Test Item Value Reference Range Comments [...] XR CHEST 1 VIEW PORTABLE *WW*2017-07-08 20:07:14LOCATION: [id number]: 26-year-old female with end-stage renal disease.COMMENT: A [...] present.IMPRESSION:Unremarkable portable examination of the chest.BASIC METABOLIC [id number] 12:04:00* Test Item Value Reference Range Comments SODIUM (BEAKER) (test ealo=083) 140 meq/L 135-148 POTASSIUM (BEAKER) (test xobu=513) 3.3 meq/L 3.6-5.5 Specimen slightly hemolyzed CHLORIDE (BEAKER) (test ekbj=847) 103 meq/L 98-106 CO2 (BEAKER) (test bhbz=819) 22 meq/L 20-29 BLOOD UREA NITROGEN (BEAKER) (test ybku=760) 22 mg/dL 10-26 CREATININE (BEAKER) (test mwwj=968) 5.80 mg/dL 0.50-1.20 Specimen slightly hemolyzed GLUCOSE RANDOM (BEAKER) (test sion=431) 243 mg/dL 70-110 CALCIUM (BEAKER) (test exia=534) 8.4 mg/dL 8.5-10.5 EGFR (BEAKER) (test ioyw=9268) 11 mL/min/1.73 sq m ESTIMATED GFR IS NOT ACCURATE CREATININE CLEARANCE IN PREDICTING GLOMERULAR FILTRATION RATE. ESTIMATED GFR IS NOT APPLICABLE FOR DIALYSIS PATIENTS. HEPATIC FUNCTION [id number] 12:03:00* Test Item Value Reference Range Comments TOTAL PROTEIN (BEAKER) (test hger=940) 7.4 gm/dL 6.0-8.5 Specimen slightly hemolyzed ALBUMIN (BEAKER) (test vbrs=9976) 3.7 g/dL 3.5-5.0 Specimen slightly hemolyzed BILIRUBIN TOTAL (BEAKER) (test ubch=269) 0.3 mg/dL 0.1-1.2 Specimen slightly hemolyzed BILIRUBIN DIRECT (BEAKER) (test ivrh=949) 0.1 mg/dL 0.0-0.4 Specimen slightly hemolyzed ALKALINE PHOSPHATASE (BEAKER) (test cjbi=906) 176 U/L 30-115 AST (SGOT) (BEAKER) (test vuvo=577) 18 U/L 5-40 Specimen slightly hemolyzed ALT (SGPT) (BEAKER) (test lbtr=028) 13 U/L 5-50 Specimen slightly hemolyzed [id number] 10:28:00* Test Item Value Reference Range Comments LIPASE (BEAKER) (test ydvo=822) 38 U/L 6-51 CBC W/PLT COUNT & AUTO [id number] 10:08:00* Test Item Value Reference Range Comments WHITE BLOOD CELL COUNT (BEAKER) (test euod=467) 7.1 K/ L 4.0-10.0 RED BLOOD CELL COUNT (BEAKER) (test pjqa=892) 5.24 M/ L 4.00-5.00 HEMOGLOBIN (BEAKER) (test tpeo=016) 14.6 GM/DL 12.0-15.0 HEMATOCRIT (BEAKER) (test lfku=772) 44.5 % 36.0-45.0 MEAN CORPUSCULAR VOLUME (BEAKER) (test wtki=299) 84.9 fL 82.0-99.0 MEAN CORPUSCULAR HEMOGLOBIN (BEAKER) (test ijis=053) 28.0 pg 27.0-33.0 MEAN CORPUSCULAR HEMOGLOBIN CONC (BEAKER) (test gyca=421) 32.9 GM/DL 32.0-36.0 RED CELL DISTRIBUTION WIDTH (BEAKER) (test jvem=053) 16.6 % 10.3-14.2 PLATELET COUNT (BEAKER) (test ouqp=051) 262 K/CU MM 150-430 MEAN PLATELET VOLUME (BEAKER) (test eijn=147) 7.7 fL 6.5-10.5 NUCLEATED RED BLOOD CELLS (BEAKER) (test wpan=239) 0 /100 WBC 0-0 NEUTROPHILS RELATIVE PERCENT (BEAKER) (test nnlg=204) 78 % LYMPHOCYTES RELATIVE PERCENT (BEAKER) (test nsex=621) 16 % MONOCYTES RELATIVE PERCENT (BEAKER) (test jzbr=725) 3 % EOSINOPHILS RELATIVE PERCENT (BEAKER) (test rigo=225) 3 % BASOPHILS RELATIVE PERCENT (BEAKER) (test ekhy=575) 0 % NEUTROPHILS ABSOLUTE COUNT (BEAKER) (test xgxy=650) 5.50 K/ L 1.80-8.00 LYMPHOCYTES ABSOLUTE COUNT (BEAKER) (test vvjl=949) 1.20 K/ L 1.48-4.50 MONOCYTES ABSOLUTE COUNT (BEAKER) (test txki=439) 0.20 K/ L 0.00-1.30 EOSINOPHILS ABSOLUTE COUNT (BEAKER) (test kepw=116) 0.20 K/ L 0.00-0.50 BASOPHILS ABSOLUTE COUNT (BEAKER) (test wyut=731) 0.00 K/ L 0.00-0.20 HEPATITIS B SURFACE [id number] 14:22:00* Test Item Value Reference Range Comments HEPATITIS B SURFACE ANTIBODY (BEAKER) (test hwgh=271) 4697.0 mIU/mL <8.0 POCT-GLUCOSE [id number] 12:12:00* Test Item Value Reference Range Comments POC-GLUCOSE METER (BEAKER) (test sgrz=2856) 310 mg/dL 70-110 TESTED AT [address] [address] POCT-GLUCOSE [id number] 06:37:00* Test Item Value Reference Range Comments POC-GLUCOSE METER (BERACHEL) (test wgtj=8427) 196 mg/dL 70-110 TESTED AT [address] [address] POCT-GLUCOSE [id number] 20:46:00* Test Item Value Reference Range Comments POC-GLUCOSE METER (BERACHEL) (test mjos=2616) 343 mg/dL 70-110 Notified ALICJA BECKFORD/TESTED AT [address] [address] HEPATITIS B SURFACE [id number] 17:30:00* Test Item Value Reference Range Comments HEPATITIS B SURFACE ANTIGEN (2) (BEAKER) (test mofc=4854) Nonreactive Nonreactive POCT-GLUCOSE [id number] 16:12:00* Test Item Value Reference Range Comments POC-GLUCOSE METER (BEAKER) (test wuqj=0253) 253 mg/dL 70-110 TESTED AT [address] [address] POCT-GLUCOSE [id number] 12:15:00* Test Item Value Reference Range Comments POC-GLUCOSE METER (BEAKER) (test nbru=4508) 143 mg/dL 70-110 TESTED AT [place] [id number] POCT-GLUCOSE [id number] 06:30:00* Test Item Value Reference Range Comments POC-GLUCOSE METER (BEAKER) (test qlbm=3704) 242 mg/dL 70-110 TESTED AT [place] [address]958 POCT-GLUCOSE [id number] 02:45:00* Test Item Value Reference Range Comments POC-GLUCOSE METER (BEAKER) (test zioa=8835) 73 mg/dL 70-110 TESTED AT [place] [id number] POCT-GLUCOSE [id number] 01:46:00* Test Item Value Reference Range Comments POC-GLUCOSE METER (BEAKER) (test fzva=4343) 49 mg/dL 70-110 TESTED AT [place] [id number] POCT-GLUCOSE [id number] 21:07:00* Test Item Value Reference Range Comments POC-GLUCOSE METER (BEAKER) (test hdzf=3620) 79 mg/dL 70-110 TESTED AT [place] [address]958 SCREEN, [id number] 18:46:00* Test Item Value Reference Range Comments TEST URINE (BEAKER) (test hrkb=705) Negative POCT-GLUCOSE [id number] 17:27:00* Test Item Value Reference Range Comments POC-GLUCOSE METER (BEAKER) (test dyyg=9128) 80 mg/dL 70-110 TESTED AT [address] [address] POCT-GLUCOSE [id number] 12:01:00* Test Item Value Reference Range Comments POC-GLUCOSE METER (BEAKER) (test jldq=4716) 186 mg/dL 70-110 TESTED AT [facility] [address] [facility] [address] POCT-GLUCOSE [id number] 07:01:00* Test Item Value Reference Range Comments POC-GLUCOSE METER (BEAKER) (test dfac=4334) 76 mg/dL 70-110 TESTED AT [facility] [address] [facility] [address] CBC W/PLT COUNT & AUTO [id number] 06:13:00* Test Item Value Reference Range Comments WHITE BLOOD CELL COUNT (BEAKER) (test gjed=020) 6.6 K/ L 4.0-10.0 RED BLOOD CELL COUNT (BEAKER) (test foud=985) 4.04 M/ L 4.00-5.00 HEMOGLOBIN (BEAKER) (test pugv=921) 11.7 GM/DL 12.0-15.0 HEMATOCRIT (BEAKER) (test ygwy=488) 36.0 % 36.0-45.0 MEAN CORPUSCULAR VOLUME (BEAKER) (test zgia=127) 89.2 fL 82.0-99.0 MEAN CORPUSCULAR HEMOGLOBIN (BEAKER) (test hbiu=964) 28.9 pg 27.0-33.0 MEAN CORPUSCULAR HEMOGLOBIN CONC (BEAKER) (test fkug=639) 32.4 GM/DL 32.0-36.0 RED CELL DISTRIBUTION WIDTH (BEAKER) (test pgbf=355) 18.1 % 10.3-14.2 PLATELET COUNT (BEAKER) (test wjhf=789) 249 K/CU MM 150-430 MEAN PLATELET VOLUME (BEAKER) (test ydui=874) 7.2 fL 6.5-10.5 NUCLEATED RED BLOOD CELLS (BEAKER) (test iqnb=778) 0 /100 WBC 0-0 NEUTROPHILS RELATIVE PERCENT (BEAKER) (test btpu=591) 62 % LYMPHOCYTES RELATIVE PERCENT (BEAKER) (test sjra=751) 27 % MONOCYTES RELATIVE PERCENT (BEAKER) (test uheg=074) 9 % EOSINOPHILS RELATIVE PERCENT (BEAKER) (test gffw=063) 1 % BASOPHILS RELATIVE PERCENT (BEAKER) (test yqwg=639) 1 % NEUTROPHILS ABSOLUTE COUNT (BEAKER) (test cekr=650) 4.10 K/ L 1.80-8.00 LYMPHOCYTES ABSOLUTE COUNT (BEAKER) (test ybvq=994) 1.80 K/ L 1.48-4.50 MONOCYTES ABSOLUTE COUNT (BEAKER) (test peic=490) 0.60 K/ L 0.00-1.30 EOSINOPHILS ABSOLUTE COUNT (BEAKER) (test klpv=870) 0.00 K/ L 0.00-0.50 BASOPHILS ABSOLUTE COUNT (BEAKER) (test etrn=105) 0.10 K/ L 0.00-0.20 COMPREHENSIVE METABOLIC [id number] 05:48:00* Test Item Value Reference Range Comments TOTAL PROTEIN (BEAKER) (test qrkq=855) 6.9 gm/dL 6.0-8.5 ALBUMIN (BEAKER) (test uvim=7786) 3.3 g/dL 3.5-5.0 ALKALINE PHOSPHATASE (BEAKER) (test uhxb=605) 130 U/L 30-115 BILIRUBIN TOTAL (BEAKER) (test karq=587) 0.3 mg/dL 0.1-1.2 SODIUM (BEAKER) (test lbqz=368) 140 meq/L 135-148 POTASSIUM (BEAKER) (test urjh=521) 3.8 meq/L 3.6-5.5 CHLORIDE (BEAKER) (test hudo=694) 102 meq/L 98-106 CO2 (BEAKER) (test ruxe=762) 25 meq/L 20-29 BLOOD UREA NITROGEN (BEAKER) (test szhr=651) 25 mg/dL 10-26 CREATININE (BEAKER) (test vyuj=311) 4.90 mg/dL 0.50-1.20 GLUCOSE RANDOM (BEAKER) (test wwja=454) 82 mg/dL 70-110 CALCIUM (BEAKER) (test beta=488) 7.8 mg/dL 8.5-10.5 AST (SGOT) (BEAKER) (test fkeh=882) 18 U/L 5-40 ALT (SGPT) (BEAKER) (test mrqw=521) 15 U/L 5-50 EGFR (BEAKER) (test kjsz=6083) 13 mL/min/1.73 sq m ESTIMATED GFR IS NOT ACCURATE CREATININE CLEARANCE IN PREDICTING GLOMERULAR FILTRATION RATE. ESTIMATED GFR IS NOT APPLICABLE FOR DIALYSIS PATIENTS. [id number] 05:28:00* Test Item Value Reference Range Comments MAGNESIUM (BEAKER) (test offo=599) 1.8 mg/dL 1.5-3.0 POCT-GLUCOSE [id number] 00:14:00* Test Item Value Reference Range Comments POC-GLUCOSE METER (BEAKER) (test alot=4008) 134 mg/dL 70-110 TESTED AT [facility] [address] [facility] [address] URINALYSIS W/ [id number] 00:42:00* Test Item Value Reference Range Comments COLOR (BEAKER) (test zyim=967) Yellow CLARITY (BEAKER) (test wqah=950) Clear SPECIFIC GRAVITY UA (BEAKER) (test tpyi=873) 1.020 1.001-1.035 PH UA (BEAKER) (test xshb=606) 8.0 5.0-8.0 PROTEIN UA (BEAKER) (test atcc=389) >=300 mg/dL Negative GLUCOSE UA (BEAKER) (test tzxk=844) 100 mg/dL Negative KETONES UA (BEAKER) (test rmqj=350) Negative Negative BILIRUBIN UA (BEAKER) (test tafd=973) Negative Negative BLOOD UA (BEAKER) (test abgg=775) Moderate Negative NITRITE UA (BEAKER) (test mueh=656) Negative Negative LEUKOCYTE ESTERASE UA (BEAKER) (test glsy=837) Negative Negative UROBILINOGEN UA (BEAKER) (test qvsv=912) 0.2 mg/dL 0.2-1.0 BACTERIA (BEAKER) (test yqkn=723) Occasional RBC UA-MANUAL (BEAKER) (test iyrh=4040) 10-20 /HPF WBC UA-MANUAL (BEAKER) (test jcxr=4475) <5 /HPF SQUAMOUS EPITHELIAL MANUAL (BEAKER) (test vbzf=1172) <5 /HPF SOURCE(BEAKER) (test wxpm=8768) HEPATIC FUNCTION [id number] 00:41:00* Test Item Value Reference Range Comments TOTAL PROTEIN (BEAKER) (test covx=232) 7.6 gm/dL 6.0-8.5 ALBUMIN (BEAKER) (test pzgq=8360) 3.7 g/dL 3.5-5.0 BILIRUBIN TOTAL (BEAKER) (test snjy=034) 0.3 mg/dL 0.1-1.2 BILIRUBIN DIRECT (BEAKER) (test qvqd=602) 0.1 mg/dL 0.0-0.4 ALKALINE PHOSPHATASE (BEAKER) (test hehr=504) 158 U/L 30-115 AST (SGOT) (BEAKER) (test jmaq=947) 20 U/L 5-40 ALT (SGPT) (BEAKER) (test jnas=455) 21 U/L 5-50 [id number] 00:41:00* Test Item Value Reference Range Comments LIPASE (BEAKER) (test dezd=253) 17 U/L 6-51 RAPID DRUG SCREEN, [id number] 00:40:00* Test Item Value Reference Range Comments BARBITURATE URINE (BEAKER) (test qzii=491) Negative Negative BENZODIAZEPINE SCREEN URINE (BEAKER) (test dkll=493) Negative Negative COCAINE (METAB.) SCREEN (BEAKER) (test cmaf=7494) Negative Negative OPIATE SCREEN URINE (BEAKER) (test ttho=447) Negative Negative CANNABINOID SCREEN URINE (BEAKER) (test jofx=058) Negative Negative AMPH/METHAMPH SCREEN (BEAKER) (test kccs=8810) Negative Negative PHENCYCLIDINE SCREEN URINE (BEAKER) (test iive=097) Negative Negative DRUG CUTOFF CONC.Cocaine 300 ng/mL Cannabinoid 50 ng/mLBenzodiazepine 200 ng/mLBarbiturate 200 ng/mLPh encyclidine 25 ng/mLOpiate 300 ng/mLMethadone 300 ng/mLAmphetamine/ 1000 ng/mL MethamphetamineThis assay provides an unconfirmed qualitative test result for the clinical management of patients in emergency situations. Chain of custody not maintained. Some nxox-ver-hwwrotc me dications, as well as adulterants, may cause inaccurate results. Clinical correl ation should be applied. A more comprehensive drug screen or confirmation of a d etected drug may be performed upon request.BASIC METABOLIC [id number] 00:39:00* Test Item Value Reference Range Comments SODIUM (BEAKER) (test yjbt=893) 142 meq/L 135-148 POTASSIUM (BEAKER) (test dacw=991) 4.9 meq/L 3.6-5.5 CHLORIDE (BEAKER) (test zheq=228) 106 meq/L 98-106 CO2 (BEAKER) (test jwak=286) 21 meq/L 20-29 BLOOD UREA NITROGEN (BEAKER) (test xpkh=962) 48 mg/dL 10-26 CREATININE (BEAKER) (test jnqc=266) 6.60 mg/dL 0.50-1.20 GLUCOSE RANDOM (BEAKER) (test wcrn=112) 96 mg/dL 70-110 CALCIUM (BEAKER) (test jjsl=933) 8.5 mg/dL 8.5-10.5 EGFR (BEAKER) (test gkmz=6660) 9 mL/min/1.73 sq m ESTIMATED GFR IS NOT ACCURATE CREATININE CLEARANCE IN PREDICTING GLOMERULAR FILTRATION RATE. ESTIMATED GFR IS NOT APPLICABLE FOR DIALYSIS PATIENTS. CBC W/PLT COUNT & AUTO [id number] 23:42:00* Test Item Value Reference Range Comments WHITE BLOOD CELL COUNT (BEAKER) (test tftg=282) 10.6 K/ L 4.0-10.0 RED BLOOD CELL COUNT (BEAKER) (test ypfe=743) 4.04 M/ L 4.00-5.00 HEMOGLOBIN (BEAKER) (test vthh=343) 11.6 GM/DL 12.0-15.0 HEMATOCRIT (BEAKER) (test qods=043) 36.2 % 36.0-45.0 MEAN CORPUSCULAR VOLUME (BEAKER) (test blvv=915) 89.5 fL 82.0-99.0 MEAN CORPUSCULAR HEMOGLOBIN (BEAKER) (test ligt=582) 28.6 pg 27.0-33.0 MEAN CORPUSCULAR HEMOGLOBIN CONC (BEAKER) (test zheq=308) 32.0 GM/DL 32.0-36.0 RED CELL DISTRIBUTION WIDTH (BEAKER) (test qhyd=321) 17.4 % 10.3-14.2 PLATELET COUNT (BEAKER) (test datp=674) 296 K/CU MM 150-430 MEAN PLATELET VOLUME (BEAKER) (test djta=265) 7.3 fL 6.5-10.5 NEUTROPHILS RELATIVE PERCENT (BEAKER) (test mrqv=340) 75 % LYMPHOCYTES RELATIVE PERCENT (BEAKER) (test ixtw=491) 15 % MONOCYTES RELATIVE PERCENT (BEAKER) (test bagt=156) 3 % EOSINOPHILS RELATIVE PERCENT (BEAKER) (test njpr=391) 5 % BASOPHILS RELATIVE PERCENT (BEAKER) (test kspz=425) 1 % NEUTROPHILS ABSOLUTE COUNT (BEAKER) (test mjdq=160) 8.10 K/ L 1.80-8.00 LYMPHOCYTES ABSOLUTE COUNT (BEAKER) (test ztpq=694) 1.60 K/ L 1.48-4.50 MONOCYTES ABSOLUTE COUNT (BEAKER) (test uccm=680) 0.30 K/ L 0.00-1.30 EOSINOPHILS ABSOLUTE COUNT (BEAKER) (test fdqv=748) 0.50 K/ L 0.00-0.50 BASOPHILS ABSOLUTE COUNT (BEAKER) (test gaxb=808) 0.10 K/ L 0.00-0.20 BLOOD [id number] 04:00:00* Test Item Value Reference Range Comments CULTURE (BEAKER) (test hvhg=0053) No growth in 5 days HEPATITIS B SURFACE [id number] 22:48:00* Test Item Value Reference Range Comments HEPATITIS B SURFACE ANTIBODY (BEAKER) (test jgmk=721) 6022.5 mIU/mL <8.0 POCT-GLUCOSE [id number] 12:11:00* Test Item Value Reference Range Comments POC-GLUCOSE METER (BEAKER) (test ehlj=5851) 136 mg/dL 70-110 TESTED AT [facility] [address] [place] [address] BASIC METABOLIC [id number] 11:02:00* Test Item Value Reference Range Comments SODIUM (BEAKER) (test hrlo=087) 141 mmol/L 135-148 POTASSIUM (BEAKER) (test rqco=330) 3.6 mmol/L 3.6-5.5 CHLORIDE (BEAKER) (test pkav=416) 102 meq/L 98-106 CO2 (BEAKER) (test cqmi=430) 40 meq/L 20-29 BLOOD UREA NITROGEN (BEAKER) (test ohmz=589) 36 mg/dL 10-26 CREATININE (BEAKER) (test fmds=687) 5.30 mg/dL 0.50-1.20 GLUCOSE RANDOM (BEAKER) (test qaiq=435) 134 mg/dL 70-110 CALCIUM (BEAKER) (test wetz=731) 8.9 mg/dL 8.5-10.5 EGFR (BEAKER) (test jcee=1839) 12 mL/min/1.73 sq m ESTIMATED GFR IS NOT ACCURATE CREATININE CLEARANCE IN PREDICTING GLOMERULAR FILTRATION RATE. ESTIMATED GFR IS NOT APPLICABLE FOR DIALYSIS PATIENTS. HEPATITIS B SURFACE [id number] 10:13:00* Test Item Value Reference Range Comments HEPATITIS B SURFACE ANTIGEN (2) (BEAKER) (test jpcn=8344) Nonreactive Nonreactive CBC W/PLT COUNT & AUTO [id number] 09:32:00* Test Item Value Reference Range Comments WHITE BLOOD CELL COUNT (BEAKER) (test xxxg=300) 7.8 K/ L 4.0-10.0 RED BLOOD CELL COUNT (BEAKER) (test ychj=508) 3.93 M/ L 4.00-5.00 HEMOGLOBIN (BEAKER) (test flxa=244) 10.9 GM/DL 12.0-15.0 HEMATOCRIT (BEAKER) (test gbmp=580) 33.6 % 36.0-45.0 MEAN CORPUSCULAR VOLUME (BEAKER) (test poyb=425) 85.5 fL 82.0-99.0 MEAN CORPUSCULAR HEMOGLOBIN (BEAKER) (test jxsd=347) 27.7 pg 27.0-33.0 MEAN CORPUSCULAR HEMOGLOBIN CONC (BEAKER) (test zhby=545) 32.5 GM/DL 32.0-36.0 RED CELL DISTRIBUTION WIDTH (BEAKER) (test kxwi=069) 16.4 % 10.3-14.2 PLATELET COUNT (BEAKER) (test lbmj=536) 292 K/CU MM 150-430 MEAN PLATELET VOLUME (BEAKER) (test dvgg=204) 7.5 fL 6.5-10.5 NUCLEATED RED BLOOD CELLS (BEAKER) (test wsmd=984) 0 /100 WBC 0-0 NEUTROPHILS RELATIVE PERCENT (BEAKER) (test vkjq=142) 71 % LYMPHOCYTES RELATIVE PERCENT (BEAKER) (test mrxb=015) 18 % MONOCYTES RELATIVE PERCENT (BEAKER) (test dbpf=183) 10 % EOSINOPHILS RELATIVE PERCENT (BEAKER) (test ooqm=945) 2 % BASOPHILS RELATIVE PERCENT (BEAKER) (test pmdn=186) 0 % NEUTROPHILS ABSOLUTE COUNT (BEAKER) (test tivo=542) 5.50 K/ L 1.80-8.00 LYMPHOCYTES ABSOLUTE COUNT (BEAKER) (test sssw=919) 1.40 K/ L 1.48-4.50 MONOCYTES ABSOLUTE COUNT (BEAKER) (test jqao=189) 0.70 K/ L 0.00-1.30 EOSINOPHILS ABSOLUTE COUNT (BEAKER) (test oauh=272) 0.10 K/ L 0.00-0.50 BASOPHILS ABSOLUTE COUNT (BEAKER) (test agmd=322) 0.00 K/ L 0.00-0.20 POCT-GLUCOSE [id number] 07:25:00* Test Item Value Reference Range Comments POC-GLUCOSE METER (BEAKER) (test jiub=6343) 175 mg/dL 70-110 TESTED AT [address] [address] POCT-GLUCOSE [id number] 00:17:00* Test Item Value Reference Range Comments POC-GLUCOSE METER (BEAKER) (test pvvr=7740) 86 mg/dL 70-110 TESTED AT [place] [address] POCT-GLUCOSE [id number] 22:21:00* Test Item Value Reference Range Comments POC-GLUCOSE METER (BEAKER) (test gjlj=5826) 55 mg/dL 70-110 TESTED AT [address] [address] POCT-GLUCOSE [id number] 20:58:00* Test Item Value Reference Range Comments POC-GLUCOSE METER (BEAKER) (test zqrb=2034) 59 mg/dL 70-110 TESTED AT [address] [address] POCT-GLUCOSE [id number] 19:17:00* Test Item Value Reference Range Comments POC-GLUCOSE METER (BEAKER) (test mtue=2954) 231 mg/dL 70-110 TESTED AT [address] [address] POCT-GLUCOSE [id number] 12:09:00* Test Item Value Reference Range Comments POC-GLUCOSE METER (BEAKER) (test gmln=4648) 105 mg/dL 70-110 TESTED AT [address] [address] POCT-GLUCOSE [id number] 09:11:00* Test Item Value Reference Range Comments POC-GLUCOSE METER (BEAKER) (test bngi=6825) 230 mg/dL 70-110 TESTED AT [address] [address] POCT-GLUCOSE [id number] 05:59:00* Test Item Value Reference Range Comments POC-GLUCOSE METER (BEAKER) (test mstx=8666) 225 mg/dL 70-110 TESTED AT [place] [address] POCT-GLUCOSE [id number] 21:06:00* Test Item Value Reference Range Comments POC-GLUCOSE METER (BEAKER) (test avzv=9437) 241 mg/dL 70-110 TESTED AT [place] [address] POCT-GLUCOSE [id number] 18:21:00* Test Item Value Reference Range Comments POC-GLUCOSE METER (BEAKER) (test denj=3915) 200 mg/dL 70-110 TESTED AT [place] [address] POCT-GLUCOSE [id number] 16:48:00* Test Item Value Reference Range Comments POC-GLUCOSE METER (BEAKER) (test icki=0588) 62 mg/dL 70-110 Notified RN or MD Patient refused repeat test/TESTED AT [place] [address] POCT-GLUCOSE [id number] 12:09:00* Test Item Value Reference Range Comments POC-GLUCOSE METER (BEAKER) (test snfl=8276) 158 mg/dL 70-110 TESTED AT [place] [address] COMPREHENSIVE METABOLIC [id number] 07:23:00* Test Item Value Reference Range Comments TOTAL PROTEIN (BEAKER) (test oavc=163) 5.9 gm/dL 6.0-8.5 Specimen slightly hemolyzed ALBUMIN (BEAKER) (test irgs=1140) 2.7 g/dL 3.5-5.0 Specimen slightly hemolyzed ALKALINE PHOSPHATASE (BEAKER) (test sxmt=740) 108 U/L 30-115 BILIRUBIN TOTAL (BEAKER) (test ofng=156) 0.3 mg/dL 0.1-1.2 Specimen slightly hemolyzed SODIUM (BEAKER) (test dczs=010) 139 meq/L 135-148 POTASSIUM (BEAKER) (test cxru=673) 4.0 meq/L 3.6-5.5 Specimen slightly hemolyzed CHLORIDE (BEAKER) (test yqrg=535) 102 meq/L 98-106 CO2 (BEAKER) (test idre=261) 23 meq/L 20-29 BLOOD UREA NITROGEN (BEAKER) (test vrrb=165) 20 mg/dL 10-26 CREATININE (BEAKER) (test dojc=161) 5.00 mg/dL 0.50-1.20 Specimen slightly hemolyzed GLUCOSE RANDOM (BEAKER) (test cvzl=777) 229 mg/dL 70-110 CALCIUM (BEAKER) (test fjwk=822) 8.1 mg/dL 8.5-10.5 AST (SGOT) (BEAKER) (test jdje=867) 13 U/L 5-40 Specimen slightly hemolyzed ALT (SGPT) (BEAKER) (test aimh=429) 10 U/L 5-50 Specimen slightly hemolyzed EGFR (BEAKER) (test wwgl=2284) 13 mL/min/1.73 sq m ESTIMATED GFR IS NOT ACCURATE CREATININE CLEARANCE IN PREDICTING GLOMERULAR FILTRATION RATE. ESTIMATED GFR IS NOT APPLICABLE FOR DIALYSIS PATIENTS. [id number] 07:09:00* Test Item Value Reference Range Comments MAGNESIUM (BEAKER) (test jabc=000) 2.3 mg/dL 1.5-3.0 Specimen slightly hemolyzed CBC W/PLT COUNT & AUTO [id number] 07:05:00* Test Item Value Reference Range Comments WHITE BLOOD CELL COUNT (BEAKER) (test ifoi=473) 7.1 K/ L 4.0-10.0 RED BLOOD CELL COUNT (BEAKER) (test kwni=435) 3.57 M/ L 4.00-5.00 HEMOGLOBIN (BEAKER) (test qcvd=233) 9.9 GM/DL 12.0-15.0 HEMATOCRIT (BEAKER) (test nbwh=008) 30.9 % 36.0-45.0 MEAN CORPUSCULAR VOLUME (BEAKER) (test wjae=395) 86.5 fL 82.0-99.0 MEAN CORPUSCULAR HEMOGLOBIN (BEAKER) (test nntq=657) 27.7 pg 27.0-33.0 MEAN CORPUSCULAR HEMOGLOBIN CONC (BEAKER) (test aiuq=407) 32.1 GM/DL 32.0-36.0 RED CELL DISTRIBUTION WIDTH (BEAKER) (test iqwi=845) 16.3 % 10.3-14.2 PLATELET COUNT (BEAKER) (test kxhq=955) 320 K/CU MM 150-430 MEAN PLATELET VOLUME (BEAKER) (test zqbd=819) 7.4 fL 6.5-10.5 NUCLEATED RED BLOOD CELLS (BEAKER) (test jxxo=307) 0 /100 WBC 0-0 NEUTROPHILS RELATIVE PERCENT (BEAKER) (test ewms=897) 53 % LYMPHOCYTES RELATIVE PERCENT (BEAKER) (test ypfv=365) 35 % MONOCYTES RELATIVE PERCENT (BEAKER) (test ktdc=208) 7 % EOSINOPHILS RELATIVE PERCENT (BEAKER) (test tlxo=121) 4 % BASOPHILS RELATIVE PERCENT (BEAKER) (test iymt=002) 0 % NEUTROPHILS ABSOLUTE COUNT (BEAKER) (test exfd=266) 3.80 K/ L 1.80-8.00 LYMPHOCYTES ABSOLUTE COUNT (BEAKER) (test vivz=892) 2.50 K/ L 1.48-4.50 MONOCYTES ABSOLUTE COUNT (BEAKER) (test cgrq=660) 0.50 K/ L 0.00-1.30 EOSINOPHILS ABSOLUTE COUNT (BEAKER) (test tocw=694) 0.30 K/ L 0.00-0.50 BASOPHILS ABSOLUTE COUNT (BEAKER) (test rryc=633) 0.00 K/ L 0.00-0.20 POCT-GLUCOSE [id number] 06:30:00* Test Item Value Reference Range Comments POC-GLUCOSE METER (BEAKER) (test uhky=9746) 265 mg/dL 70-110 TESTED AT [address] [address] POCT-GLUCOSE [id number] 21:12:00* Test Item Value Reference Range Comments POC-GLUCOSE METER (BEAKER) (test zljg=1487) 216 mg/dL 70-110 TESTED AT [address] [address] POCT-GLUCOSE [id number] 12:13:00* Test Item Value Reference Range Comments POC-GLUCOSE METER (BEAKER) (test npzr=9605) 329 mg/dL 70-110 Notified ALICJA BECKFORD/TESTED AT [address] [address] COMPREHENSIVE METABOLIC [id number] 06:56:00* Test Item Value Reference Range Comments TOTAL PROTEIN (BEAKER) (test pqnc=706) 6.5 gm/dL 6.0-8.5 ALBUMIN (BEAKER) (test cugf=6135) 3.0 g/dL 3.5-5.0 ALKALINE PHOSPHATASE (BEAKER) (test xbyh=593) 99 U/L 30-115 BILIRUBIN TOTAL (BEAKER) (test wwna=806) 0.2 mg/dL 0.1-1.2 SODIUM (BEAKER) (test quhg=667) 141 meq/L 135-148 POTASSIUM (BEAKER) (test xwrq=546) 4.2 meq/L 3.6-5.5 CHLORIDE (BEAKER) (test kpur=722) 102 meq/L 98-106 CO2 (BEAKER) (test nipx=291) 23 meq/L 20-29 BLOOD UREA NITROGEN (BEAKER) (test drsw=989) 25 mg/dL 10-26 CREATININE (BEAKER) (test pqtm=966) 4.80 mg/dL 0.50-1.20 GLUCOSE RANDOM (BEAKER) (test bepx=722) 151 mg/dL 70-110 CALCIUM (BEAKER) (test bzet=412) 8.4 mg/dL 8.5-10.5 AST (SGOT) (BEAKER) (test kvej=833) 11 U/L 5-40 ALT (SGPT) (BEAKER) (test veop=779) 11 U/L 5-50 EGFR (BEAKER) (test avgs=0481) 13 mL/min/1.73 sq m ESTIMATED GFR IS NOT ACCURATE CREATININE CLEARANCE IN PREDICTING GLOMERULAR FILTRATION RATE. ESTIMATED GFR IS NOT APPLICABLE FOR DIALYSIS PATIENTS. CBC W/PLT COUNT & AUTO [id number] 06:28:00* Test Item Value Reference Range Comments WHITE BLOOD CELL COUNT (BEAKER) (test hueu=191) 7.4 K/ L 4.0-10.0 RED BLOOD CELL COUNT (BEAKER) (test boig=429) 4.31 M/ L 4.00-5.00 HEMOGLOBIN (BEAKER) (test ojst=953) 11.8 GM/DL 12.0-15.0 HEMATOCRIT (BEAKER) (test zits=093) 37.3 % 36.0-45.0 MEAN CORPUSCULAR VOLUME (BEAKER) (test rzof=432) 86.6 fL 82.0-99.0 MEAN CORPUSCULAR HEMOGLOBIN (BEAKER) (test ekeo=360) 27.4 pg 27.0-33.0 MEAN CORPUSCULAR HEMOGLOBIN CONC (BEAKER) (test xrzk=103) 31.7 GM/DL 32.0-36.0 RED CELL DISTRIBUTION WIDTH (BEAKER) (test vfeq=977) 16.1 % 10.3-14.2 PLATELET COUNT (BEAKER) (test fgmm=648) 379 K/CU MM 150-430 MEAN PLATELET VOLUME (BEAKER) (test ehax=805) 7.1 fL 6.5-10.5 NUCLEATED RED BLOOD CELLS (BEAKER) (test bcrn=154) 0 /100 WBC 0-0 NEUTROPHILS RELATIVE PERCENT (BEAKER) (test whhs=806) 54 % LYMPHOCYTES RELATIVE PERCENT (BEAKER) (test qzrn=021) 38 % MONOCYTES RELATIVE PERCENT (BEAKER) (test inlg=192) 7 % EOSINOPHILS RELATIVE PERCENT (BEAKER) (test caku=657) 1 % BASOPHILS RELATIVE PERCENT (BEAKER) (test lhdo=236) 1 % NEUTROPHILS ABSOLUTE COUNT (BEAKER) (test hjie=823) 4.00 K/ L 1.80-8.00 LYMPHOCYTES ABSOLUTE COUNT (BEAKER) (test qsfm=691) 2.80 K/ L 1.48-4.50 MONOCYTES ABSOLUTE COUNT (BEAKER) (test egph=588) 0.50 K/ L 0.00-1.30 EOSINOPHILS ABSOLUTE COUNT (BEAKER) (test uuvc=005) 0.10 K/ L 0.00-0.50 BASOPHILS ABSOLUTE COUNT (BEAKER) (test srtl=381) 0.10 K/ L 0.00-0.20 POCT-GLUCOSE [id number] 06:10:00* Test Item Value Reference Range Comments POC-GLUCOSE METER (BEAKER) (test etun=6092) 148 mg/dL 70-110 TESTED AT [address] [address] POCT-GLUCOSE [id number] 20:46:00* Test Item Value Reference Range Comments POC-GLUCOSE METER (BEAKER) (test zruj=5102) 176 mg/dL 70-110 TESTED AT [address] [address] HEPATITIS B SURFACE [id number] 19:10:00* Test Item Value Reference Range Comments HEPATITIS B SURFACE ANTIBODY (BEAKER) (test wmxg=009) 6736.4 mIU/mL <8.0 POCT-GLUCOSE [id number] 17:12:00* Test Item Value Reference Range Comments POC-GLUCOSE METER (BEAKER) (test ljmu=4539) 84 mg/dL 70-110 TESTED AT [address] [address] HEPATITIS B SURFACE [id number] 13:51:00* Test Item Value Reference Range Comments HEPATITIS B SURFACE ANTIGEN (2) (BEAKER) (test hbqp=9005) Nonreactive Nonreactive POCT-GLUCOSE [id number] 11:22:00* Test Item Value Reference Range Comments POC-GLUCOSE METER (BEAKER) (test dwde=4068) 319 mg/dL 70-110 Notified ALICJA BECKFORD/TESTED AT [address] [address] COMPREHENSIVE METABOLIC [id number] 07:16:00* Test Item Value Reference Range Comments TOTAL PROTEIN (BEAKER) (test ylmy=648) 5.6 gm/dL 6.0-8.5 ALBUMIN (BEAKER) (test dwsv=7910) 2.5 g/dL 3.5-5.0 ALKALINE PHOSPHATASE (BEAKER) (test hhzh=294) 94 U/L 30-115 BILIRUBIN TOTAL (BEAKER) (test qupv=745) < mg/dL 0.1-1.2 SODIUM (BEAKER) (test rxkr=334) 140 meq/L 135-148 POTASSIUM (BEAKER) (test gryv=764) 3.8 meq/L 3.6-5.5 CHLORIDE (BEAKER) (test nihe=918) 104 meq/L 98-106 CO2 (BEAKER) (test isnd=575) 20 meq/L 20-29 BLOOD UREA NITROGEN (BEAKER) (test oozs=330) 43 mg/dL 10-26 CREATININE (BEAKER) (test bkdn=425) 5.80 mg/dL 0.50-1.20 GLUCOSE RANDOM (BEAKER) (test jkyz=025) 277 mg/dL 70-110 CALCIUM (BEAKER) (test gyqh=870) 7.6 mg/dL 8.5-10.5 AST (SGOT) (BEAKER) (test rlkg=932) 9 U/L 5-40 ALT (SGPT) (BEAKER) (test crwh=907) 11 U/L 5-50 EGFR (BEAKER) (test zodt=3811) 11 mL/min/1.73 sq m ESTIMATED GFR IS NOT ACCURATE CREATININE CLEARANCE IN PREDICTING GLOMERULAR FILTRATION RATE. ESTIMATED GFR IS NOT APPLICABLE FOR DIALYSIS PATIENTS. CBC W/PLT COUNT & AUTO [id number] 06:54:00* Test Item Value Reference Range Comments WHITE BLOOD CELL COUNT (BEAKER) (test fwoc=875) 8.1 K/ L 4.0-10.0 RED BLOOD CELL COUNT (BEAKER) (test yrmt=636) 3.71 M/ L 4.00-5.00 HEMOGLOBIN (BEAKER) (test cjmu=014) 10.3 GM/DL 12.0-15.0 HEMATOCRIT (BEAKER) (test tqsq=338) 31.8 % 36.0-45.0 MEAN CORPUSCULAR VOLUME (BEAKER) (test qfkb=858) 85.9 fL 82.0-99.0 MEAN CORPUSCULAR HEMOGLOBIN (BEAKER) (test jczi=945) 27.8 pg 27.0-33.0 MEAN CORPUSCULAR HEMOGLOBIN CONC (BEAKER) (test vzqy=257) 32.3 GM/DL 32.0-36.0 RED CELL DISTRIBUTION WIDTH (BEAKER) (test mewk=551) 15.9 % 10.3-14.2 PLATELET COUNT (BEAKER) (test womd=748) 346 K/CU MM 150-430 MEAN PLATELET VOLUME (BEAKER) (test gskf=907) 6.8 fL 6.5-10.5 NUCLEATED RED BLOOD CELLS (BEAKER) (test ippt=669) 0 /100 WBC 0-0 NEUTROPHILS RELATIVE PERCENT (BEAKER) (test dkca=678) 72 % LYMPHOCYTES RELATIVE PERCENT (BEAKER) (test dbtd=560) 20 % MONOCYTES RELATIVE PERCENT (BEAKER) (test tvvf=719) 7 % EOSINOPHILS RELATIVE PERCENT (BEAKER) (test otwq=310) 0 % BASOPHILS RELATIVE PERCENT (BEAKER) (test pzya=812) 0 % NEUTROPHILS ABSOLUTE COUNT (BEAKER) (test unuh=189) 5.90 K/ L 1.80-8.00 LYMPHOCYTES ABSOLUTE COUNT (BEAKER) (test ojhm=314) 1.60 K/ L 1.48-4.50 MONOCYTES ABSOLUTE COUNT (BEAKER) (test qbuu=575) 0.60 K/ L 0.00-1.30 EOSINOPHILS ABSOLUTE COUNT (BEAKER) (test cihs=293) 0.00 K/ L 0.00-0.50 BASOPHILS ABSOLUTE COUNT (BEAKER) (test dlcn=171) 0.00 K/ L 0.00-0.20 POCT-GLUCOSE [id number] 05:56:00* Test Item Value Reference Range Comments POC-GLUCOSE METER (BEAKER) (test qzxl=7767) 250 mg/dL 70-110 TESTED AT [address] [address] POCT-GLUCOSE [id number] 21:10:00* Test Item Value Reference Range Comments POC-GLUCOSE METER (BEAKER) (test gokf=1985) 225 mg/dL 70-110 TESTED AT [place] [address] POCT-GLUCOSE [id number] 16:33:00* Test Item Value Reference Range Comments POC-GLUCOSE METER (BEAKER) (test quyk=9137) 375 mg/dL 70-110 TESTED AT [address] [address] POCT-GLUCOSE [id number] 11:36:00* Test Item Value Reference Range Comments POC-GLUCOSE METER (BEAKER) (test vweb=5982) 353 mg/dL 70-110 TESTED AT [address] [address] POCT-GLUCOSE [id number] 21:22:00* Test Item Value Reference Range Comments POC-GLUCOSE METER (BEAKER) (test gegl=4751) 188 mg/dL 70-110 TESTED AT [address] [address] POCT-GLUCOSE [id number] 17:39:00* Test Item Value Reference Range Comments POC-GLUCOSE METER (BEAKER) (test xkql=3550) 74 mg/dL 70-110 TESTED AT [address] [address] POCT-GLUCOSE [id number] 12:29:00* Test Item Value Reference Range Comments POC-GLUCOSE METER (BEAKER) (test afva=7693) 197 mg/dL 70-110 TESTED AT [address] [address] POCT-GLUCOSE [id number] 12:29:00* Test Item Value Reference Range Comments POC-GLUCOSE METER (BEAKER) (test ikcg=3610) 201 mg/dL 70-110 TESTED AT [address] [address] COMPREHENSIVE METABOLIC [id number] 06:05:00* Test Item Value Reference Range Comments TOTAL PROTEIN (BEAKER) (test gvuz=997) 4.6 gm/dL 6.0-8.5 ALBUMIN (BEAKER) (test dedp=0277) 1.8 g/dL 3.5-5.0 ALKALINE PHOSPHATASE (BEAKER) (test jyft=451) 87 U/L 30-115 BILIRUBIN TOTAL (BEAKER) (test amug=521) < mg/dL 0.1-1.2 SODIUM (BEAKER) (test pgnb=056) 141 meq/L 135-148 POTASSIUM (BEAKER) (test hhkk=323) 4.3 meq/L 3.6-5.5 CHLORIDE (BEAKER) (test cpwr=868) 108 meq/L 98-106 CO2 (BEAKER) (test xzvf=670) 24 meq/L 20-29 BLOOD UREA NITROGEN (BEAKER) (test rtsa=025) 21 mg/dL 10-26 CREATININE (BEAKER) (test dxls=286) 3.40 mg/dL 0.50-1.20 GLUCOSE RANDOM (BEAKER) (test opgp=949) 173 mg/dL 70-110 CALCIUM (BEAKER) (test gbma=885) 7.3 mg/dL 8.5-10.5 AST (SGOT) (BEAKER) (test sfla=113) 12 U/L 5-40 ALT (SGPT) (BEAKER) (test swcc=208) 14 U/L 5-50 EGFR (BEAKER) (test eoxt=9503) 20 mL/min/1.73 sq m ESTIMATED GFR IS NOT ACCURATE CREATININE CLEARANCE IN PREDICTING GLOMERULAR FILTRATION RATE. ESTIMATED GFR IS NOT APPLICABLE FOR DIALYSIS PATIENTS. POCT-GLUCOSE [id number] 05:41:00* Test Item Value Reference Range Comments POC-GLUCOSE METER (BEAKER) (test pwcj=9379) 163 mg/dL 70-110 TESTED AT [facility] [address] [facility] [address] CBC W/PLT COUNT & AUTO [id number] 05:38:00* Test Item Value Reference Range Comments WHITE BLOOD CELL COUNT (BEAKER) (test xrqh=187) 8.1 K/ L 4.0-10.0 RED BLOOD CELL COUNT (BEAKER) (test ulhp=456) 3.05 M/ L 4.00-5.00 HEMOGLOBIN (BEAKER) (test xzjp=549) 8.6 GM/DL 12.0-15.0 HEMATOCRIT (BEAKER) (test exzu=928) 26.5 % 36.0-45.0 MEAN CORPUSCULAR VOLUME (BEAKER) (test nffq=619) 87.0 fL 82.0-99.0 MEAN CORPUSCULAR HEMOGLOBIN (BEAKER) (test xenp=121) 28.3 pg 27.0-33.0 MEAN CORPUSCULAR HEMOGLOBIN CONC (BEAKER) (test rerd=691) 32.6 GM/DL 32.0-36.0 RED CELL DISTRIBUTION WIDTH (BEAKER) (test shgm=208) 17.1 % 10.3-14.2 PLATELET COUNT (BEAKER) (test cvgv=046) 184 K/CU MM 150-430 MEAN PLATELET VOLUME (BEAKER) (test qgwg=711) 7.4 fL 6.5-10.5 NUCLEATED RED BLOOD CELLS (BEAKER) (test nvnh=003) 0 /100 WBC 0-0 NEUTROPHILS RELATIVE PERCENT (BEAKER) (test jned=513) 64 % LYMPHOCYTES RELATIVE PERCENT (BEAKER) (test yeyo=636) 22 % MONOCYTES RELATIVE PERCENT (BEAKER) (test zkct=031) 8 % EOSINOPHILS RELATIVE PERCENT (BEAKER) (test otwa=296) 6 % BASOPHILS RELATIVE PERCENT (BEAKER) (test ytnn=101) 0 % NEUTROPHILS ABSOLUTE COUNT (BEAKER) (test epcx=432) 5.20 K/ L 1.80-8.00 LYMPHOCYTES ABSOLUTE COUNT (BEAKER) (test ouxy=683) 1.80 K/ L 1.48-4.50 MONOCYTES ABSOLUTE COUNT (BEAKER) (test hdxf=813) 0.60 K/ L 0.00-1.30 EOSINOPHILS ABSOLUTE COUNT (BEAKER) (test dbvv=097) 0.50 K/ L 0.00-0.50 BASOPHILS ABSOLUTE COUNT (BEAKER) (test vzzt=598) 0.00 K/ L 0.00-0.20 POCT-GLUCOSE [id number] 20:41:00* Test Item Value Reference Range Comments POC-GLUCOSE METER (BEAKER) (test fqxf=6531) 214 mg/dL 70-110 TESTED AT [address] [address] POCT-GLUCOSE [id number] 16:10:00* Test Item Value Reference Range Comments POC-GLUCOSE METER (BEAKER) (test cwdw=8591) 73 mg/dL 70-110 TESTED AT [address] [address] POCT-GLUCOSE [id number] 12:52:00* Test Item Value Reference Range Comments POC-GLUCOSE METER (BEAKER) (test zdqk=1806) 99 mg/dL 70-110 TESTED AT [address] [address] POCT-GLUCOSE [id number] 11:58:00* Test Item Value Reference Range Comments POC-GLUCOSE METER (BEAKER) (test qsvs=0381) 37 mg/dL 70-110 TESTED AT [address] [address] POCT-GLUCOSE [id number] 07:33:00* Test Item Value Reference Range Comments POC-GLUCOSE METER (BEAKER) (test vgxc=4416) 131 mg/dL 70-110 TESTED AT [address] [address] POCT-GLUCOSE [id number] 06:21:00* Test Item Value Reference Range Comments POC-GLUCOSE METER (BEAKER) (test nwjv=0291) 61 mg/dL 70-110 TESTED AT [address] [address] COMPREHENSIVE METABOLIC [id number] 05:50:00* Test Item Value Reference Range Comments TOTAL PROTEIN (BEAKER) (test jxao=516) 4.0 gm/dL 6.0-8.5 ALBUMIN (BEAKER) (test mirz=3246) 1.8 g/dL 3.5-5.0 ALKALINE PHOSPHATASE (BEAKER) (test jstz=514) 80 U/L 30-115 BILIRUBIN TOTAL (BEAKER) (test ohbx=320) < mg/dL 0.1-1.2 SODIUM (BEAKER) (test nadg=242) 142 meq/L 135-148 POTASSIUM (BEAKER) (test obld=894) 3.9 meq/L 3.6-5.5 CHLORIDE (BEAKER) (test uwip=433) 112 meq/L 98-106 CO2 (BEAKER) (test hcay=075) 22 meq/L 20-29 BLOOD UREA NITROGEN (BEAKER) (test tcqv=565) 24 mg/dL 10-26 CREATININE (BEAKER) (test ilfl=211) 3.60 mg/dL 0.50-1.20 GLUCOSE RANDOM (BEAKER) (test pzph=203) 56 mg/dL 70-110 CALCIUM (BEAKER) (test zncc=665) 7.3 mg/dL 8.5-10.5 AST (SGOT) (BEAKER) (test iicm=945) 12 U/L 5-40 ALT (SGPT) (BEAKER) (test jrfg=540) 12 U/L 5-50 EGFR (BEAKER) (test udsv=2823) 19 mL/min/1.73 sq m ESTIMATED GFR IS NOT ACCURATE CREATININE CLEARANCE IN PREDICTING GLOMERULAR FILTRATION RATE. ESTIMATED GFR IS NOT APPLICABLE FOR DIALYSIS PATIENTS. CBC W/PLT COUNT & AUTO [id number] 05:21:00* Test Item Value Reference Range Comments WHITE BLOOD CELL COUNT (BEAKER) (test ibzy=173) 8.0 K/ L 4.0-10.0 RED BLOOD CELL COUNT (BEAKER) (test rqun=524) 3.18 M/ L 4.00-5.00 HEMOGLOBIN (BEAKER) (test ycwz=907) 8.9 GM/DL 12.0-15.0 HEMATOCRIT (BEAKER) (test ptdm=127) 27.7 % 36.0-45.0 MEAN CORPUSCULAR VOLUME (BEAKER) (test zfam=290) 87.2 fL 82.0-99.0 MEAN CORPUSCULAR HEMOGLOBIN (BEAKER) (test epeu=273) 28.1 pg 27.0-33.0 MEAN CORPUSCULAR HEMOGLOBIN CONC (BEAKER) (test cpdb=476) 32.2 GM/DL 32.0-36.0 RED CELL DISTRIBUTION WIDTH (BEAKER) (test masy=197) 17.0 % 10.3-14.2 PLATELET COUNT (BEAKER) (test vylj=518) 197 K/CU MM 150-430 MEAN PLATELET VOLUME (BEAKER) (test dpot=104) 7.2 fL 6.5-10.5 NUCLEATED RED BLOOD CELLS (BEAKER) (test yyqu=189) 0 /100 WBC 0-0 NEUTROPHILS RELATIVE PERCENT (BEAKER) (test omzq=848) 63 % LYMPHOCYTES RELATIVE PERCENT (BEAKER) (test gafc=591) 25 % MONOCYTES RELATIVE PERCENT (BEAKER) (test sjxx=693) 6 % EOSINOPHILS RELATIVE PERCENT (BEAKER) (test azza=040) 6 % BASOPHILS RELATIVE PERCENT (BEAKER) (test egon=897) 0 % NEUTROPHILS ABSOLUTE COUNT (BEAKER) (test copm=057) 5.00 K/ L 1.80-8.00 LYMPHOCYTES ABSOLUTE COUNT (BEAKER) (test vrwl=165) 2.00 K/ L 1.48-4.50 MONOCYTES ABSOLUTE COUNT (BEAKER) (test zrau=350) 0.50 K/ L 0.00-1.30 EOSINOPHILS ABSOLUTE COUNT (BEAKER) (test eggo=100) 0.50 K/ L 0.00-0.50 BASOPHILS ABSOLUTE COUNT (BEAKER) (test kjlv=036) 0.00 K/ L 0.00-0.20 POCT-GLUCOSE [id number] 20:59:00* Test Item Value Reference Range Comments POC-GLUCOSE METER (BEAKER) (test zwlw=2819) 79 mg/dL 70-110 TESTED AT [address] [address] POCT-GLUCOSE [id number] 17:30:00* Test Item Value Reference Range Comments POC-GLUCOSE METER (BEAKER) (test njkn=7872) 162 mg/dL 70-110 TESTED AT [address] [address] POCT-GLUCOSE [id number] 12:58:00* Test Item Value Reference Range Comments POC-GLUCOSE METER (BEAKER) (test gdld=7378) 198 mg/dL 70-110 TESTED AT [address] [address] COMPREHENSIVE METABOLIC [id number] 06:31:00* Test Item Value Reference Range Comments TOTAL PROTEIN (BEAKER) (test jlpc=934) 4.2 gm/dL 6.0-8.5 ALBUMIN (BEAKER) (test drdd=9344) 1.9 g/dL 3.5-5.0 ALKALINE PHOSPHATASE (BEAKER) (test mkkg=741) 82 U/L 30-115 BILIRUBIN TOTAL (BEAKER) (test kjur=547) < mg/dL 0.1-1.2 SODIUM (BEAKER) (test neeo=993) 142 meq/L 135-148 POTASSIUM (BEAKER) (test kmpp=324) 3.7 meq/L 3.6-5.5 CHLORIDE (BEAKER) (test xlcs=262) 110 meq/L 98-106 CO2 (BEAKER) (test dvxj=949) 24 meq/L 20-29 BLOOD UREA NITROGEN (BEAKER) (test bbqk=294) 18 mg/dL 10-26 CREATININE (BEAKER) (test ovkc=063) 2.90 mg/dL 0.50-1.20 GLUCOSE RANDOM (BEAKER) (test yggj=982) 129 mg/dL 70-110 CALCIUM (BEAKER) (test gotg=580) 7.1 mg/dL 8.5-10.5 AST (SGOT) (BEAKER) (test atst=437) 11 U/L 5-40 ALT (SGPT) (BEAKER) (test lpci=556) 13 U/L 5-50 EGFR (BEAKER) (test uqgp=4154) 24 mL/min/1.73 sq m ESTIMATED GFR IS NOT ACCURATE CREATININE CLEARANCE IN PREDICTING GLOMERULAR FILTRATION RATE. ESTIMATED GFR IS NOT APPLICABLE FOR DIALYSIS PATIENTS. CBC W/PLT COUNT & AUTO [id number] 06:20:00* Test Item Value Reference Range Comments WHITE BLOOD CELL COUNT (BEAKER) (test jlhj=020) 10.3 K/ L 4.0-10.0 RED BLOOD CELL COUNT (BEAKER) (test jgng=538) 3.27 M/ L 4.00-5.00 HEMOGLOBIN (BEAKER) (test xjfw=087) 9.2 GM/DL 12.0-15.0 HEMATOCRIT (BEAKER) (test lblx=838) 28.5 % 36.0-45.0 MEAN CORPUSCULAR VOLUME (BEAKER) (test ajoy=934) 87.0 fL 82.0-99.0 MEAN CORPUSCULAR HEMOGLOBIN (BEAKER) (test hgyy=186) 28.1 pg 27.0-33.0 MEAN CORPUSCULAR HEMOGLOBIN CONC (BEAKER) (test ajda=943) 32.3 GM/DL 32.0-36.0 RED CELL DISTRIBUTION WIDTH (BEAKER) (test vrzl=931) 16.8 % 10.3-14.2 PLATELET COUNT (BEAKER) (test ineb=777) 177 K/CU MM 150-430 MEAN PLATELET VOLUME (BEAKER) (test hfva=207) 7.4 fL 6.5-10.5 NUCLEATED RED BLOOD CELLS (BEAKER) (test rbcm=921) 0 /100 WBC 0-0 NEUTROPHILS RELATIVE PERCENT (BEAKER) (test xzyp=934) 68 % LYMPHOCYTES RELATIVE PERCENT (BEAKER) (test kwjs=804) 19 % MONOCYTES RELATIVE PERCENT (BEAKER) (test skzj=866) 7 % EOSINOPHILS RELATIVE PERCENT (BEAKER) (test unud=970) 7 % BASOPHILS RELATIVE PERCENT (BEAKER) (test tasn=658) 0 % NEUTROPHILS ABSOLUTE COUNT (BEAKER) (test nlyz=964) 7.00 K/ L 1.80-8.00 LYMPHOCYTES ABSOLUTE COUNT (BEAKER) (test wkvd=246) 1.90 K/ L 1.48-4.50 MONOCYTES ABSOLUTE COUNT (BEAKER) (test snxx=262) 0.70 K/ L 0.00-1.30 EOSINOPHILS ABSOLUTE COUNT (BEAKER) (test eddi=359) 0.70 K/ L 0.00-0.50 BASOPHILS ABSOLUTE COUNT (BEAKER) (test lamo=793) 0.00 K/ L 0.00-0.20 POCT-GLUCOSE [id number] 06:15:00* Test Item Value Reference Range Comments POC-GLUCOSE METER (BEAKER) (test elwy=4541) 152 mg/dL 70-110 TESTED AT [address] [address] POCT-GLUCOSE [id number] 00:41:00* Test Item Value Reference Range Comments POC-GLUCOSE METER (BEAKER) (test qicl=0259) 143 mg/dL 70-110 TESTED AT [address] [address] POCT-GLUCOSE [id number] 21:14:00* Test Item Value Reference Range Comments POC-GLUCOSE METER (BEAKER) (test vouu=0459) 59 mg/dL 70-110 TESTED AT [address] [address] POCT-GLUCOSE [id number] 19:14:00* Test Item Value Reference Range Comments POC-GLUCOSE METER (BEAKER) (test fnaq=1137) 144 mg/dL 70-110 TESTED AT [address] [address] POCT-GLUCOSE [id number] 18:24:00* Test Item Value Reference Range Comments POC-GLUCOSE METER (BEAKER) (test xxky=7955) 141 mg/dL 70-110 TESTED AT [address] [address] POCT-GLUCOSE [id number] 13:10:00* Test Item Value Reference Range Comments POC-GLUCOSE METER (BEAKER) (test wqzc=0411) 92 mg/dL 70-110 TESTED AT [address] [address] POCT-GLUCOSE [id number] 12:53:00* Test Item Value Reference Range Comments POC-GLUCOSE METER (BEAKER) (test tjte=8541) 57 mg/dL 70-110 TESTED AT [address] [address] POCT-GLUCOSE [id number] 12:53:00* Test Item Value Reference Range Comments POC-GLUCOSE METER (BEAKER) (test cvec=5682) 57 mg/dL 70-110 TESTED AT [address] [address] POCT-GLUCOSE [id number] 08:39:00* Test Item Value Reference Range Comments POC-GLUCOSE METER (BEAKER) (test ldig=3356) 217 mg/dL 70-110 TESTED AT [address] [address] POCT-GLUCOSE [id number] 07:04:00* Test Item Value Reference Range Comments POC-GLUCOSE METER (BEAKER) (test wsfj=6500) 145 mg/dL 70-110 TESTED AT [address] [address] POCT-GLUCOSE [id number] 20:39:00* Test Item Value Reference Range Comments POC-GLUCOSE METER (BEAKER) (test wsqb=3969) 148 mg/dL 70-110 TESTED AT [facility] [address] [facility] [address] POCT-GLUCOSE [id number] 16:47:00* Test Item Value Reference Range Comments POC-GLUCOSE METER (BEAKER) (test pluf=7741) 109 mg/dL 70-110 TESTED AT [facility] [address] [facility] [address] POCT-GLUCOSE [id number] 11:51:00* Test Item Value Reference Range Comments POC-GLUCOSE METER (BEAKER) (test euvy=4452) 176 mg/dL 70-110 TESTED AT [facility] [address] [facility] [address] COMPREHENSIVE METABOLIC [id number] 06:43:00* Test Item Value Reference Range Comments TOTAL PROTEIN (BEAKER) (test xuse=201) 4.2 gm/dL 6.0-8.5 ALBUMIN (BEAKER) (test heud=8572) 1.8 g/dL 3.5-5.0 ALKALINE PHOSPHATASE (BEAKER) (test pcmp=562) 98 U/L 30-115 BILIRUBIN TOTAL (BEAKER) (test bzwx=947) < mg/dL 0.1-1.2 SODIUM (BEAKER) (test qwwd=921) 142 meq/L 135-148 POTASSIUM (BEAKER) (test ugif=706) 3.5 meq/L 3.6-5.5 CHLORIDE (BEAKER) (test dxls=442) 109 meq/L 98-106 CO2 (BEAKER) (test tzgd=924) 25 meq/L 20-29 BLOOD UREA NITROGEN (BEAKER) (test ykfv=012) 9 mg/dL 10-26 CREATININE (BEAKER) (test hpfa=180) 2.50 mg/dL 0.50-1.20 GLUCOSE RANDOM (BEAKER) (test uzhu=109) 161 mg/dL 70-110 CALCIUM (BEAKER) (test rjlg=165) 7.0 mg/dL 8.5-10.5 AST (SGOT) (BEAKER) (test qmdj=612) 13 U/L 5-40 ALT (SGPT) (BEAKER) (test yhul=631) 14 U/L 5-50 EGFR (BEAKER) (test lbjd=2552) 28 mL/min/1.73 sq m ESTIMATED GFR IS NOT ACCURATE CREATININE CLEARANCE IN PREDICTING GLOMERULAR FILTRATION RATE. ESTIMATED GFR IS NOT APPLICABLE FOR DIALYSIS PATIENTS. POCT-GLUCOSE [id number] 06:40:00* Test Item Value Reference Range Comments POC-GLUCOSE METER (BEAKER) (test oswu=2753) 149 mg/dL 70-110 TESTED AT [facility] [address] [facility] [address] [facility] [address] [facility] [address] [id number] 06:34:00* Test Item Value Reference Range Comments PHOSPHORUS (BEAKER) (test bmtp=252) 2.8 mg/dL 2.5-4.5 CBC W/PLT COUNT & AUTO [id number] 06:25:00* Test Item Value Reference Range Comments WHITE BLOOD CELL COUNT (BEAKER) (test ayvq=867) 7.9 K/ L 4.0-10.0 RED BLOOD CELL COUNT (BEAKER) (test jdip=962) 3.36 M/ L 4.00-5.00 HEMOGLOBIN (BEAKER) (test jash=669) 9.3 GM/DL 12.0-15.0 HEMATOCRIT (BEAKER) (test rnjd=663) 28.8 % 36.0-45.0 MEAN CORPUSCULAR VOLUME (BEAKER) (test zuri=509) 85.7 fL 82.0-99.0 MEAN CORPUSCULAR HEMOGLOBIN (BEAKER) (test fxnb=690) 27.8 pg 27.0-33.0 MEAN CORPUSCULAR HEMOGLOBIN CONC (BEAKER) (test iwba=065) 32.4 GM/DL 32.0-36.0 RED CELL DISTRIBUTION WIDTH (BEAKER) (test xxep=433) 16.3 % 10.3-14.2 PLATELET COUNT (BEAKER) (test iebr=924) 147 K/CU MM 150-430 MEAN PLATELET VOLUME (BEAKER) (test pevp=136) 7.6 fL 6.5-10.5 NUCLEATED RED BLOOD CELLS (BEAKER) (test loia=876) 0 /100 WBC 0-0 NEUTROPHILS RELATIVE PERCENT (BEAKER) (test pjob=131) 62 % LYMPHOCYTES RELATIVE PERCENT (BEAKER) (test nhfu=573) 26 % MONOCYTES RELATIVE PERCENT (BEAKER) (test hanj=527) 7 % EOSINOPHILS RELATIVE PERCENT (BEAKER) (test wrxv=523) 4 % BASOPHILS RELATIVE PERCENT (BEAKER) (test kiam=293) 0 % NEUTROPHILS ABSOLUTE COUNT (BEAKER) (test cvvs=889) 4.90 K/ L 1.80-8.00 LYMPHOCYTES ABSOLUTE COUNT (BEAKER) (test rwmk=851) 2.10 K/ L 1.48-4.50 MONOCYTES ABSOLUTE COUNT (BEAKER) (test uzhh=262) 0.60 K/ L 0.00-1.30 EOSINOPHILS ABSOLUTE COUNT (BEAKER) (test sfxt=314) 0.30 K/ L 0.00-0.50 BASOPHILS ABSOLUTE COUNT (BEAKER) (test cjdj=678) 0.00 K/ L 0.00-0.20 POCT-GLUCOSE [id number] 21:29:00* Test Item Value Reference Range Comments [facility] (test ovwv=5220) 145 mg/dL 70-110 TESTED AT [place] [address] POCT-GLUCOSE [id number] 18:32:00* Test Item Value Reference Range Comments POC-GLUCOSE METER (BEAKER) (test wyum=7721) 116 mg/dL 70-110 TESTED AT [place] [address] POCT-GLUCOSE [id number] 17:54:00* Test Item Value Reference Range Comments POC-GLUCOSE METER (BEAKER) (test mjms=7163) 55 mg/dL 70-110 TESTED AT [place] [address] POCT-GLUCOSE [id number] 16:02:00* Test Item Value Reference Range Comments POC-GLUCOSE METER (BEAKER) (test hlun=4579) 90 mg/dL 70-110 TESTED AT [place] [id number] POCT-GLUCOSE [id number] 16:02:00* Test Item Value Reference Range Comments POC-GLUCOSE METER (AKER) (test cqyp=1211) 183 mg/dL 70-110 TESTED AT [place] [address] POCT-GLUCOSE [id number] 12:06:00* Test Item Value Reference Range Comments POC-GLUCOSE METER (AKER) (test dxwd=1872) 191 mg/dL 70-110 TESTED AT [place] [address] POCT-GLUCOSE [id number] 06:32:00* Test Item Value Reference Range Comments POC-GLUCOSE METER (BEAKER) (test uqgh=2309) 55 mg/dL 70-110 TESTED AT [facility] [address] [facility] [address] COMPREHENSIVE METABOLIC [id number] 04:58:00* Test Item Value Reference Range Comments TOTAL PROTEIN (BEAKER) (test crtz=612) 4.5 gm/dL 6.0-8.5 ALBUMIN (BEAKER) (test ranf=4359) 1.9 g/dL 3.5-5.0 ALKALINE PHOSPHATASE (BEAKER) (test dnsu=765) 84 U/L 30-115 BILIRUBIN TOTAL (BEAKER) (test gtjr=183) < mg/dL 0.1-1.2 SODIUM (BEAKER) (test iiwk=692) 142 meq/L 135-148 POTASSIUM (BEAKER) (test kiaq=904) 3.7 meq/L 3.6-5.5 CHLORIDE (BEAKER) (test fetm=999) 109 meq/L 98-106 CO2 (BEAKER) (test vmcs=802) 25 meq/L 20-29 BLOOD UREA NITROGEN (BEAKER) (test qmfh=817) 17 mg/dL 10-26 CREATININE (BEAKER) (test qmpu=143) 3.10 mg/dL 0.50-1.20 GLUCOSE RANDOM (BEAKER) (test xske=354) 92 mg/dL 70-110 CALCIUM (BEAKER) (test euqw=021) 6.9 mg/dL 8.5-10.5 AST (SGOT) (BEAKER) (test gcav=546) 13 U/L 5-40 ALT (SGPT) (BEAKER) (test rcyk=723) 13 U/L 5-50 EGFR (BEAKER) (test vrcd=5025) 22 mL/min/1.73 sq m ESTIMATED GFR IS NOT ACCURATE CREATININE CLEARANCE IN PREDICTING GLOMERULAR FILTRATION RATE. ESTIMATED GFR IS NOT APPLICABLE FOR DIALYSIS PATIENTS. [id number] 04:54:00* Test Item Value Reference Range Comments PHOSPHORUS (BEAKER) (test vzoa=624) 3.8 mg/dL 2.5-4.5 CBC W/PLT COUNT & AUTO [id number] 04:35:00* Test Item Value Reference Range Comments WHITE BLOOD CELL COUNT (BEAKER) (test qhuh=197) 8.2 K/ L 4.0-10.0 RED BLOOD CELL COUNT (BEAKER) (test hsei=760) 3.51 M/ L 4.00-5.00 HEMOGLOBIN (BEAKER) (test nqwz=622) 9.9 GM/DL 12.0-15.0 HEMATOCRIT (BEAKER) (test fcke=050) 30.1 % 36.0-45.0 MEAN CORPUSCULAR VOLUME (BEAKER) (test agmw=430) 85.7 fL 82.0-99.0 MEAN CORPUSCULAR HEMOGLOBIN (BEAKER) (test rayc=232) 28.1 pg 27.0-33.0 MEAN CORPUSCULAR HEMOGLOBIN CONC (BEAKER) (test vgwg=583) 32.8 GM/DL 32.0-36.0 RED CELL DISTRIBUTION WIDTH (BEAKER) (test avdj=935) 16.2 % 10.3-14.2 PLATELET COUNT (BEAKER) (test zkmu=436) 161 K/CU MM 150-430 MEAN PLATELET VOLUME (BEAKER) (test pdrd=485) 7.2 fL 6.5-10.5 NUCLEATED RED BLOOD CELLS (BEAKER) (test xpoq=035) 0 /100 WBC 0-0 NEUTROPHILS RELATIVE PERCENT (BEAKER) (test rcmg=245) 50 % LYMPHOCYTES RELATIVE PERCENT (BEAKER) (test hcid=577) 37 % MONOCYTES RELATIVE PERCENT (BEAKER) (test higm=967) 10 % EOSINOPHILS RELATIVE PERCENT (BEAKER) (test kkko=135) 2 % BASOPHILS RELATIVE PERCENT (BEAKER) (test xtyo=564) 1 % NEUTROPHILS ABSOLUTE COUNT (BEAKER) (test bzoi=628) 4.10 K/ L 1.80-8.00 LYMPHOCYTES ABSOLUTE COUNT (BEAKER) (test wvxx=416) 3.00 K/ L 1.48-4.50 MONOCYTES ABSOLUTE COUNT (BEAKER) (test eeis=683) 0.80 K/ L 0.00-1.30 EOSINOPHILS ABSOLUTE COUNT (BEAKER) (test ndke=210) 0.20 K/ L 0.00-0.50 BASOPHILS ABSOLUTE COUNT (BEAKER) (test psam=012) 0.00 K/ L 0.00-0.20 POCT-GLUCOSE [id number] 22:52:00* Test Item Value Reference Range Comments POC-GLUCOSE METER (BEAKER) (test csbl=2626) 109 mg/dL 70-110 TESTED AT [address] [address] POCT-GLUCOSE [id number] 21:26:00* Test Item Value Reference Range Comments POC-GLUCOSE METER (BEAKER) (test tnri=5066) 68 mg/dL 70-110 TESTED AT [address] [address] HEPATITIS B SURFACE [id number] 19:56:00* Test Item Value Reference Range Comments HEPATITIS B SURFACE ANTIBODY (BEAKER) (test nzpg=435) 7393.9 mIU/mL <8.0 HEPATITIS B CORE ANTIBODY, [id number] 18:55:00* Test Item Value Reference Range Comments HEPATITIS B CORE TOTAL ANTIBODY (AKER) (test ybib=679) Nonreactive Nonreactive POCT-GLUCOSE [id number] 17:10:00* Test Item Value Reference Range Comments POC-GLUCOSE METER (BEAKER) (test duuk=7416) 83 mg/dL 70-110 TESTED AT [place] [address] POCT-GLUCOSE [id number] 16:37:00* Test Item Value Reference Range Comments POC-GLUCOSE METER (BEAKER) (test mpgx=6739) 23 mg/dL 70-110 TESTED AT [address] [address] PROTEIN, RANDOM [id number] 13:20:00* Test Item Value Reference Range Comments PROTEIN, URINE (BEAKER) (test ybko=1962) 1376 mg/dL 0-14 CREATININE, RANDOM [id number] 12:04:00* Test Item Value Reference Range Comments CREATININE URINE (AKER) (test tefa=684) 58.2 mg/dL Reference Range: No NormalsPOCT-GLUCOSE [id number] 11:57:00* Test Item Value Reference Range Comments POC-GLUCOSE METER (BEAKER) (test rtls=1060) 142 mg/dL 70-110 TESTED AT [address] [address] URINALYSIS W/ [id number] 11:41:00* Test Item Value Reference Range Comments COLOR (BEAKER) (test ygzv=074) Yellow CLARITY (BEAKER) (test hlqv=963) Clear SPECIFIC GRAVITY UA (BEAKER) (test cmko=509) 1.015 1.001-1.035 PH UA (BEAKER) (test arae=926) 7.0 5.0-8.0 PROTEIN UA (BEAKER) (test mtnp=220) >=300 mg/dL Negative GLUCOSE UA (BEAKER) (test cvcs=298) >=1000 mg/dL Negative KETONES UA (BEAKER) (test egsd=340) Negative Negative BILIRUBIN UA (BEAKER) (test rtuo=213) Negative Negative BLOOD UA (BEAKER) (test hncb=639) Moderate Negative NITRITE UA (BEAKER) (test ncyl=844) Negative Negative LEUKOCYTE ESTERASE UA (BEAKER) (test yryz=690) Negative Negative UROBILINOGEN UA (BEAKER) (test ttuj=474) 0.2 mg/dL 0.2-1.0 BACTERIA (BEAKER) (test lvtk=140) Occasional RBC UA-MANUAL (BEAKER) (test wjnm=2516) <5 /HPF WBC UA-MANUAL (BEAKER) (test wwej=8181) <5 /HPF SQUAMOUS EPITHELIAL MANUAL (BEAKER) (test xarg=1726) <5 /HPF SOURCE(BEAKER) (test uimg=8971) COMPREHENSIVE METABOLIC [id number] 11:08:00* Test Item Value Reference Range Comments TOTAL PROTEIN (BEAKER) (test lfrp=099) 4.3 gm/dL 6.0-8.5 ALBUMIN (BEAKER) (test svlj=4139) 1.9 g/dL 3.5-5.0 ALKALINE PHOSPHATASE (BEAKER) (test xqcd=508) 78 U/L 30-115 BILIRUBIN TOTAL (BEAKER) (test dhse=633) < mg/dL 0.1-1.2 SODIUM (BEAKER) (test jrup=570) 141 meq/L 135-148 POTASSIUM (BEAKER) (test qsbs=810) 3.3 meq/L 3.6-5.5 CHLORIDE (BEAKER) (test hsif=984) 111 meq/L 98-106 CO2 (BEAKER) (test mpky=112) 21 meq/L 20-29 BLOOD UREA NITROGEN (BEAKER) (test jmva=409) 28 mg/dL 10-26 CREATININE (BEAKER) (test jlxc=889) 4.30 mg/dL 0.50-1.20 GLUCOSE RANDOM (BEAKER) (test gywk=836) 185 mg/dL 70-110 CALCIUM (BEAKER) (test wvhz=315) 6.7 mg/dL 8.5-10.5 AST (SGOT) (BEAKER) (test owcz=300) 11 U/L 5-40 ALT (SGPT) (BEAKER) (test csly=915) 13 U/L 5-50 EGFR (BEAKER) (test wxcb=7617) 15 mL/min/1.73 sq m ESTIMATED GFR IS NOT ACCURATE CREATININE CLEARANCE IN PREDICTING GLOMERULAR FILTRATION RATE. ESTIMATED GFR IS NOT APPLICABLE FOR DIALYSIS PATIENTS. [id number] 10:58:00* Test Item Value Reference Range Comments PHOSPHORUS (BEAKER) (test pigp=912) 4.8 mg/dL 2.5-4.5 CBC W/PLT COUNT & AUTO [id number] 10:41:00* Test Item Value Reference Range Comments WHITE BLOOD CELL COUNT (BEAKER) (test qpjd=394) 9.3 K/ L 4.0-10.0 RED BLOOD CELL COUNT (BEAKER) (test obyv=573) 2.76 M/ L 4.00-5.00 HEMOGLOBIN (BEAKER) (test rjse=762) 7.6 GM/DL 12.0-15.0 HEMATOCRIT (BEAKER) (test qwvu=541) 23.2 % 36.0-45.0 MEAN CORPUSCULAR VOLUME (BEAKER) (test kysy=905) 83.8 fL 82.0-99.0 MEAN CORPUSCULAR HEMOGLOBIN (BEAKER) (test qjse=548) 27.4 pg 27.0-33.0 MEAN CORPUSCULAR HEMOGLOBIN CONC (BEAKER) (test havk=983) 32.7 GM/DL 32.0-36.0 RED CELL DISTRIBUTION WIDTH (BEAKER) (test zaqd=077) 16.4 % 10.3-14.2 PLATELET COUNT (BEAKER) (test qthy=354) 167 K/CU MM 150-430 MEAN PLATELET VOLUME (BEAKER) (test lbqo=237) 6.9 fL 6.5-10.5 NUCLEATED RED BLOOD CELLS (BEAKER) (test omwt=806) 0 /100 WBC 0-0 NEUTROPHILS RELATIVE PERCENT (BEAKER) (test bdyy=961) 74 % LYMPHOCYTES RELATIVE PERCENT (BEAKER) (test pdtd=017) 21 % MONOCYTES RELATIVE PERCENT (BEAKER) (test jiyz=160) 4 % EOSINOPHILS RELATIVE PERCENT (BEAKER) (test jzpc=835) 0 % BASOPHILS RELATIVE PERCENT (BEAKER) (test qxzf=678) 0 % NEUTROPHILS ABSOLUTE COUNT (BEAKER) (test drck=246) 6.90 K/ L 1.80-8.00 LYMPHOCYTES ABSOLUTE COUNT (BEAKER) (test jlfm=780) 1.90 K/ L 1.48-4.50 MONOCYTES ABSOLUTE COUNT (BEAKER) (test sqjy=445) 0.40 K/ L 0.00-1.30 EOSINOPHILS ABSOLUTE COUNT (BEAKER) (test jpoh=891) 0.00 K/ L 0.00-0.50 BASOPHILS ABSOLUTE COUNT (BEAKER) (test qwlz=785) 0.00 K/ L 0.00-0.20 TISSUE [id number] 09:22:00Surgical Pathology Report Case: [id number] Authorizing Provider: Trevor Castro MD Collected: 01/04/2017 1030 Ordering Location: [facility] Med Surg 5th Floor Received: 01/04/2017 1204 [...] were communicated to Dr. Castro on 01/14/2017. 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 Kidney biopsy The specimen is received in saline and consists of two white-menendez biopsy cores me asuring 1.0 cm in length and 0.1 cm in diameter. The tissue cores were examined under the microscopy for glomeruli. One tissue core is bisected and submitted in to PBS and glutaraldehyde solution, and the other tissue core is submitted into A1 for histologic evaluation. MG/ew LIGHT MICROSCOPY: Sections show single core of cortical tissue. Glomeruli: Approximately 25 glomeruli are examined of ic h 16 glomeruli are globally sclerotic/obsolescent or show near complete obsolesc ence. Two - three glomeruli are enlarged and show segmental sclerosis with visce ral podocyte hypertrophy. There is focal glomerular hypertrophy with nodular mes angial expansion by PAS- and silver-positive matrix and mild segmental hypercell ularity. Mesangial foam cells are present in the areas of sclerosis. No endocapi llary hypercellularity, crescents or thrombi are seen.Tubules and interstitium: There is severe interstitial fibrosis and tubular atrophy and mild chronic inter stitial inflammatory cell infiltration by lymphocytes involving about 80% of soheila al cortex. Non-atrophic proximal tubules are focally ectatic with loss of brush borders. Vessels: Interlobular arteries show sclerosis and thickening. There i s diffuse arteriolar hyalinosis. Special stains: Maribel trichrome, PAS and Florentin s silver stains were necessary for evaluation of this biopsy and showed expected staining patterns of internal control tissue matrix structures.Direct Immunoflu orescence:Histology: H&E-stained sections show 3 non-obsolescent glomeruli and [...] staining. Fibrinogen: diffuse, glomerular and tubulointerstitial, weak. Vinton: negative glomeruli; tubular casts are positive Lambda: [...] to approximately 1080 nm (normal adult female pggrqgj=437 - 394 nm; Deanna Manzano, Arch Pathol Lab Med 133:224-232). The mesangial matrix is markedly expanded and nodular in places. Focal mesangial hypercellularity is present. Subendothelial, subepithelial, and mesangial/paramesangial electron-dense, immune complex-type deposits are not present. Focal hyaline deposition is noted. Podocyte foot processes are extensively effaced. Tubular basement membranes are thickened.POCT-GLUCOSE [id number] 07:07:00* Test Item Value Reference Range Comments POC-GLUCOSE METER (BEAKER) (test rxkl=5608) 213 mg/dL 70-110 TESTED AT [place] [id number] POCT-GLUCOSE [id number] 06:19:00* Test Item Value Reference Range Comments POC-GLUCOSE METER (BEAKER) (test rqzb=3169) 47 mg/dL 70-110 TESTED AT [place] [address]85958 POCT-GLUCOSE [id number] 21:23:00* Test Item Value Reference Range Comments POC-GLUCOSE METER (BEAKER) (test fyyi=7917) 65 mg/dL 70-110 TESTED AT [place] [id number] POCT-GLUCOSE [id number] 17:15:00* Test Item Value Reference Range Comments POC-GLUCOSE METER (BEAKER) (test evoe=0660) 83 mg/dL 70-110 TESTED AT [place] [address]958 HEPATITIS B SURFACE [id number] 17:12:00* Test Item Value Reference Range Comments HEPATITIS B SURFACE ANTIGEN (2) (BEAKER) (test ilwd=0445) Nonreactive Nonreactive POCT-GLUCOSE [id number] 14:19:00* Test Item Value Reference Range Comments POC-GLUCOSE METER (BEAKER) (test gmny=6088) 241 mg/dL 70-110 TESTED AT [address] [address] [id number] 13:54:00* Test Item Value Reference Range Comments LIPASE (BEAKER) (test ajwg=269) 14 U/L 6-51 POCT-GLUCOSE [id number] 07:00:00* Test Item Value Reference Range Comments POC-GLUCOSE METER (BEAKER) (test alxg=9880) 287 mg/dL 70-110 TESTED AT [facility] [address] [facility] [address] COMPREHENSIVE METABOLIC [id number] 05:58:00* Test Item Value Reference Range Comments TOTAL PROTEIN (BEAKER) (test pttl=711) 5.2 gm/dL 6.0-8.5 ALBUMIN (BEAKER) (test nglx=9043) 2.2 g/dL 3.5-5.0 ALKALINE PHOSPHATASE (BEAKER) (test ygyd=758) 103 U/L 30-115 BILIRUBIN TOTAL (BEAKER) (test jeif=909) < mg/dL 0.1-1.2 SODIUM (BEAKER) (test qkst=216) 141 meq/L 135-148 POTASSIUM (BEAKER) (test nite=119) 4.0 meq/L 3.6-5.5 CHLORIDE (BEAKER) (test uipi=370) 117 meq/L 98-106 CO2 (BEAKER) (test gsnq=196) 13 meq/L 20-29 BLOOD UREA NITROGEN (BEAKER) (test fjuf=187) 41 mg/dL 10-26 CREATININE (BEAKER) (test klex=876) 5.10 mg/dL 0.50-1.20 GLUCOSE RANDOM (BEAKER) (test baoc=084) 208 mg/dL 70-110 CALCIUM (BEAKER) (test qhrh=094) 6.9 mg/dL 8.5-10.5 AST (SGOT) (BEAKER) (test nfny=685) 10 U/L 5-40 ALT (SGPT) (BEAKER) (test vkri=337) 16 U/L 5-50 EGFR (BEAKER) (test dmjd=2100) 12 mL/min/1.73 sq m ESTIMATED GFR IS NOT ACCURATE CREATININE CLEARANCE IN PREDICTING GLOMERULAR FILTRATION RATE. ESTIMATED GFR IS NOT APPLICABLE FOR DIALYSIS PATIENTS. [id number] 05:53:00* Test Item Value Reference Range Comments PHOSPHORUS (BEAKER) (test lrhn=567) 5.3 mg/dL 2.5-4.5 CBC W/PLT COUNT & AUTO [id number] 05:37:00* Test Item Value Reference Range Comments WHITE BLOOD CELL COUNT (BEAKER) (test apms=139) 15.9 K/ L 4.0-10.0 RED BLOOD CELL COUNT (BEAKER) (test ypfg=336) 3.22 M/ L 4.00-5.00 HEMOGLOBIN (BEAKER) (test gcwk=582) 8.9 GM/DL 12.0-15.0 HEMATOCRIT (BEAKER) (test cmgn=948) 27.3 % 36.0-45.0 MEAN CORPUSCULAR VOLUME (BEAKER) (test ligg=913) 84.7 fL 82.0-99.0 MEAN CORPUSCULAR HEMOGLOBIN (BEAKER) (test hete=940) 27.5 pg 27.0-33.0 MEAN CORPUSCULAR HEMOGLOBIN CONC (BEAKER) (test mtfp=811) 32.5 GM/DL 32.0-36.0 RED CELL DISTRIBUTION WIDTH (BEAKER) (test huug=871) 16.4 % 10.3-14.2 PLATELET COUNT (BEAKER) (test ucxc=134) 182 K/CU MM 150-430 MEAN PLATELET VOLUME (BEAKER) (test xuln=521) 7.6 fL 6.5-10.5 NUCLEATED RED BLOOD CELLS (BEAKER) (test etlb=792) 0 /100 WBC 0-0 NEUTROPHILS RELATIVE PERCENT (BEAKER) (test onyj=024) 87 % LYMPHOCYTES RELATIVE PERCENT (BEAKER) (test yveh=614) 8 % MONOCYTES RELATIVE PERCENT (BEAKER) (test ylzb=959) 5 % EOSINOPHILS RELATIVE PERCENT (BEAKER) (test armg=136) 0 % BASOPHILS RELATIVE PERCENT (BEAKER) (test eyrc=953) 0 % NEUTROPHILS ABSOLUTE COUNT (BEAKER) (test mvub=981) 13.90 K/ L 1.80-8.00 LYMPHOCYTES ABSOLUTE COUNT (BEAKER) (test aoqk=595) 1.20 K/ L 1.48-4.50 MONOCYTES ABSOLUTE COUNT (BEAKER) (test xtlj=106) 0.90 K/ L 0.00-1.30 EOSINOPHILS ABSOLUTE COUNT (BEAKER) (test uqlj=211) 0.00 K/ L 0.00-0.50 BASOPHILS ABSOLUTE COUNT (BEAKER) (test stks=297) 0.00 K/ L 0.00-0.20 POCT-GLUCOSE [id number] 20:29:00* Test Item Value Reference Range Comments POC-GLUCOSE METER (BEAKER) (test oicq=4009) 213 mg/dL 70-110 TESTED AT [facility] [address] [facility] [address] POCT-GLUCOSE [id number] 16:25:00* Test Item Value Reference Range Comments POC-GLUCOSE METER (BEAKER) (test axvj=5244) 115 mg/dL 70-110 TESTED AT [facility] [address] [facility] [address] PROTEIN ELECTROPHORESIS, [id number] 13:59:00* Test Item Value Reference Range Comments ALBUMIN FRACTION (BEAKER) (test jaad=876) 1.8 g/dL 3.5-5.5 ALPHA 1 FRACTION (BEAKER) (test ngjh=198) 0.2 g/dL 0.2-0.4 ALPHA 2 FRACTION (BEAKER) (test kooa=699) 0.9 g/dL 0.5-0.9 BETA FRACTION (BEAKER) (test whua=672) 0.9 g/dL 0.6-1.1 GAMMA GLOBULIN FRACTION (BEAKER) (test ekll=239) 0.5 g/dL 0.7-1.7 INTERPRETATION-119 (BEAKER) (test bumy=6083) Decreased albumin and gamma globulins, suggestive of renal loss and/or protein-losing enteropathy. No monoclonal bands detected. FEXN-XINAOKSJQQB-420 (BEAKER) (test hbnk=1488) Bailee Toth MD (electronic signature) PROTEIN TOTAL SERUM, SPEP (BEAKER) (test pnbp=4547) 4.3 gm/dL 6.0-8.3 ANTI-NUCLEAR ANTIBODY (PHILOMENA)2017-01-04 13:00:00* Test Item Value Reference Range Comments ANTI-NUCLEAR ANTIBODY (PHILOMENA) (BEAKER) (test blgp=778) Negative Negative POCT-GLUCOSE [id number] 11:58:00* Test Item Value Reference Range Comments POC-GLUCOSE METER (BEAKER) (test csku=6480) 149 mg/dL 70-110 TESTED AT [facility] [address] [facility] [address] POCT-GLUCOSE [id number] 11:58:00* Test Item Value Reference Range Comments POC-GLUCOSE METER (BEAKER) (test tzqo=6239) 238 mg/dL 70-110 TESTED AT [facility] [address] [facility] [address] COMPLEMENT COMPONENT [id number] 10:10:00* Test Item Value Reference Range Comments C4 COMPLEMENT (BEAKER) (test eyya=132) 42 mg/dL 15-57 Effective 06/05/2014: Reference Range ChangeNew: 15-57 Previous: 16-38 COMPLEMENT COMPONENT [id number] 10:10:00* Test Item Value Reference Range Comments C3 COMPLEMENT (BEAKER) (test dukv=211) 110 mg/dL 82-193 Effective 06/05/2014: Reference Range ChangeNew: 82-193 Previous: 79-152 COMPREHENSIVE METABOLIC [id number] 07:14:00* Test Item Value Reference Range Comments TOTAL PROTEIN (BEAKER) (test smfx=401) 4.8 gm/dL 6.0-8.5 ALBUMIN (BEAKER) (test yhxo=7679) 2.0 g/dL 3.5-5.0 ALKALINE PHOSPHATASE (BEAKER) (test tbra=633) 106 U/L 30-115 BILIRUBIN TOTAL (BEAKER) (test enwa=634) < mg/dL 0.1-1.2 SODIUM (BEAKER) (test qguu=544) 135 meq/L 135-148 POTASSIUM (BEAKER) (test pwoy=184) 4.6 meq/L 3.6-5.5 CHLORIDE (BEAKER) (test mexu=669) 110 meq/L 98-106 CO2 (BEAKER) (test fcvi=562) 17 meq/L 20-29 BLOOD UREA NITROGEN (BEAKER) (test kfhb=184) 57 mg/dL 10-26 CREATININE (BEAKER) (test kabc=978) 4.30 mg/dL 0.50-1.20 GLUCOSE RANDOM (BEAKER) (test agja=744) 326 mg/dL 70-110 CALCIUM (BEAKER) (test hnya=944) 7.7 mg/dL 8.5-10.5 AST (SGOT) (BEAKER) (test wveg=358) 9 U/L 5-40 ALT (SGPT) (BEAKER) (test afyn=892) 16 U/L 5-50 EGFR (BEAKER) (test mhgb=6527) 15 mL/min/1.73 sq m ESTIMATED GFR IS NOT ACCURATE CREATININE CLEARANCE IN PREDICTING GLOMERULAR FILTRATION RATE. ESTIMATED GFR IS NOT APPLICABLE FOR DIALYSIS PATIENTS. PROTHROMBIN TIME/[id number] 06:52:00* Test Item Value Reference Range Comments PROTIME (BEAKER) (test jgkh=916) 9.5 seconds 9.3-12.0 INR (BEAKER) (test lfim=570) 0.9 <=5.9 RECOMMENDED COUMADIN/WARFARIN INR THERAPY RANGESSTANDARD DOSE: 2.0 - 3.0 Inclu muriel: PROPHYLAXIS for venous thrombosis, systemic embolization; TREATMENT for sonu ous thrombosis and/or pulmonary embolus.HIGH RISK: Target INR is 2.5-3.5 for pat ients with mechanical heart valves.CBC W/PLT COUNT & AUTO [id number] 06:27:00* Test Item Value Reference Range Comments WHITE BLOOD CELL COUNT (BEAKER) (test qezk=571) 11.2 K/ L 4.0-10.0 RED BLOOD CELL COUNT (BEAKER) (test acxr=071) 3.08 M/ L 4.00-5.00 HEMOGLOBIN (BEAKER) (test gpuu=739) 8.5 GM/DL 12.0-15.0 HEMATOCRIT (BEAKER) (test vjev=966) 26.4 % 36.0-45.0 MEAN CORPUSCULAR VOLUME (BEAKER) (test scbo=028) 85.6 fL 82.0-99.0 MEAN CORPUSCULAR HEMOGLOBIN (BEAKER) (test ppnh=135) 27.7 pg 27.0-33.0 MEAN CORPUSCULAR HEMOGLOBIN CONC (BEAKER) (test orqk=999) 32.3 GM/DL 32.0-36.0 RED CELL DISTRIBUTION WIDTH (BEAKER) (test pebr=250) 15.3 % 10.3-14.2 PLATELET COUNT (BEAKER) (test afmf=109) 279 K/CU MM 150-430 MEAN PLATELET VOLUME (BEAKER) (test wgqu=036) 7.9 fL 6.5-10.5 NUCLEATED RED BLOOD CELLS (BEAKER) (test veif=235) 0 /100 WBC 0-0 NEUTROPHILS RELATIVE PERCENT (BEAKER) (test qkqj=839) 81 % LYMPHOCYTES RELATIVE PERCENT (BEAKER) (test wrqs=986) 12 % MONOCYTES RELATIVE PERCENT (BEAKER) (test fych=104) 6 % EOSINOPHILS RELATIVE PERCENT (BEAKER) (test nvgy=884) 0 % BASOPHILS RELATIVE PERCENT (BEAKER) (test focq=976) 0 % NEUTROPHILS ABSOLUTE COUNT (BEAKER) (test hgpf=591) 9.10 K/ L 1.80-8.00 LYMPHOCYTES ABSOLUTE COUNT (BEAKER) (test gfma=905) 1.40 K/ L 1.48-4.50 MONOCYTES ABSOLUTE COUNT (BEAKER) (test ooup=195) 0.70 K/ L 0.00-1.30 EOSINOPHILS ABSOLUTE COUNT (BEAKER) (test icyw=242) 0.00 K/ L 0.00-0.50 BASOPHILS ABSOLUTE COUNT (BEAKER) (test tvca=123) 0.00 K/ L 0.00-0.20 POCT-GLUCOSE [id number] 06:16:00* Test Item Value Reference Range Comments POC-GLUCOSE METER (BEAKER) (test xahr=8357) 305 mg/dL 70-110 Notified ALICJA BECKFORD/TESTED AT [place] [address] POCT-GLUCOSE [id number] 21:58:00* Test Item Value Reference Range Comments POC-GLUCOSE METER (AKER) (test ccxs=1208) 437 mg/dL 70-110 TESTED AT [place] [address] POCT-GLUCOSE [id number] 17:47:00* Test Item Value Reference Range Comments POC-GLUCOSE METER (BEAKER) (test pxeq=3003) 303 mg/dL 70-110 TESTED AT [place] [address] POCT-GLUCOSE [id number] 13:52:00* Test Item Value Reference Range Comments POC-GLUCOSE METER (BEAKER) (test iatq=1272) 77 mg/dL 70-110 TESTED AT [place] [address] COMPREHENSIVE METABOLIC [id number] 07:15:00* Test Item Value Reference Range Comments TOTAL PROTEIN (BEAKER) (test wpfy=991) 4.5 gm/dL 6.0-8.5 ALBUMIN (BEAKER) (test vazz=5218) 1.9 g/dL 3.5-5.0 ALKALINE PHOSPHATASE (BEAKER) (test qhlz=127) 92 U/L 30-115 BILIRUBIN TOTAL (BEAKER) (test xuvn=293) < mg/dL 0.1-1.2 SODIUM (BEAKER) (test dzxp=676) 140 meq/L 135-148 POTASSIUM (BEAKER) (test gsuq=807) 4.6 meq/L 3.6-5.5 CHLORIDE (BEAKER) (test urow=472) 115 meq/L 98-106 CO2 (BEAKER) (test eqnu=562) 15 meq/L 20-29 BLOOD UREA NITROGEN (BEAKER) (test qasn=708) 47 mg/dL 10-26 CREATININE (BEAKER) (test jgye=131) 4.40 mg/dL 0.50-1.20 GLUCOSE RANDOM (BEAKER) (test culs=187) 186 mg/dL 70-110 CALCIUM (BEAKER) (test lhhq=206) 7.5 mg/dL 8.5-10.5 AST (SGOT) (BEAKER) (test zmmh=157) 8 U/L 5-40 ALT (SGPT) (BEAKER) (test nbjc=214) 14 U/L 5-50 EGFR (BEAKER) (test qzvh=8794) 15 mL/min/1.73 sq m ESTIMATED GFR IS NOT ACCURATE CREATININE CLEARANCE IN PREDICTING GLOMERULAR FILTRATION RATE. ESTIMATED GFR IS NOT APPLICABLE FOR DIALYSIS PATIENTS. POCT-GLUCOSE [id number] 06:46:00* Test Item Value Reference Range Comments POC-GLUCOSE METER (BEAKER) (test kogq=3314) 215 mg/dL 70-110 [address]ED AT [address] [address] [id number] 06:42:00* Test Item Value Reference Range Comments PHOSPHORUS (BEAKER) (test dwfw=907) 4.6 mg/dL 2.5-4.5 CBC W/PLT COUNT & AUTO [id number] 06:35:00* Test Item Value Reference Range Comments WHITE BLOOD CELL COUNT (BEAKER) (test tlfo=707) 8.5 K/ L 4.0-10.0 RED BLOOD CELL COUNT (BEAKER) (test wjhw=648) 2.98 M/ L 4.00-5.00 HEMOGLOBIN (BEAKER) (test movg=767) 8.2 GM/DL 12.0-15.0 HEMATOCRIT (BEAKER) (test fzob=830) 25.9 % 36.0-45.0 MEAN CORPUSCULAR VOLUME (BEAKER) (test hkoz=237) 87.2 fL 82.0-99.0 MEAN CORPUSCULAR HEMOGLOBIN (BEAKER) (test ejzd=156) 27.4 pg 27.0-33.0 MEAN CORPUSCULAR HEMOGLOBIN CONC (BEAKER) (test rdrp=001) 31.5 GM/DL 32.0-36.0 RED CELL DISTRIBUTION WIDTH (BEAKER) (test vewy=505) 16.1 % 10.3-14.2 PLATELET COUNT (BEAKER) (test yhfm=319) 179 K/CU MM 150-430 No clot seen in specimen tube. MEAN PLATELET VOLUME (BEAKER) (test jdjc=535) 7.7 fL 6.5-10.5 NUCLEATED RED BLOOD CELLS (BEAKER) (test svgh=859) 0 /100 WBC 0-0 NEUTROPHILS RELATIVE PERCENT (BEAKER) (test hdmp=831) 62 % LYMPHOCYTES RELATIVE PERCENT (BEAKER) (test gilr=677) 29 % MONOCYTES RELATIVE PERCENT (BEAKER) (test hhcj=873) 5 % EOSINOPHILS RELATIVE PERCENT (BEAKER) (test iisn=819) 4 % BASOPHILS RELATIVE PERCENT (BEAKER) (test nahg=982) 1 % NEUTROPHILS ABSOLUTE COUNT (BEAKER) (test kcjy=173) 5.30 K/ L 1.80-8.00 LYMPHOCYTES ABSOLUTE COUNT (BEAKER) (test eytn=328) 2.40 K/ L 1.48-4.50 MONOCYTES ABSOLUTE COUNT (BEAKER) (test omrg=985) 0.40 K/ L 0.00-1.30 EOSINOPHILS ABSOLUTE COUNT (BEAKER) (test fbye=606) 0.30 K/ L 0.00-0.50 BASOPHILS ABSOLUTE COUNT (BEAKER) (test joeo=557) 0.10 K/ L 0.00-0.20 POCT-GLUCOSE [id number] 21:23:00* Test Item Value Reference Range Comments POC-GLUCOSE METER (BEAKER) (test kcsx=5288) 256 mg/dL 70-110 TESTED AT [facility] [address] [place] [address] POCT-GLUCOSE [id number] 16:30:00* Test Item Value Reference Range Comments POC-GLUCOSE METER (BEAKER) (test umxn=2246) 245 mg/dL 70-110 TESTED AT [facility] [address] [facility] [address] POCT-GLUCOSE [id number] 12:32:00* Test Item Value Reference Range Comments POC-GLUCOSE METER (BEAKER) (test aucx=5672) 168 mg/dL 70-110 TESTED AT [facility] [address] [facility] [address] COMPREHENSIVE METABOLIC [id number] 12:23:00* Test Item Value Reference Range Comments TOTAL PROTEIN (BEAKER) (test ahmr=913) 4.9 gm/dL 6.0-8.5 Specimen moderately hemolyzed ALBUMIN (BEAKER) (test lvoo=4187) 1.9 g/dL 3.5-5.0 Specimen moderately hemolyzed ALKALINE PHOSPHATASE (BEAKER) (test xrqy=782) 95 U/L 30-115 BILIRUBIN TOTAL (BEAKER) (test elsy=465) < mg/dL 0.1-1.2 Specimen moderately hemolyzed SODIUM (BEAKER) (test zqtl=799) 137 meq/L 135-148 POTASSIUM (BEAKER) (test nuoo=238) 4.7 meq/L 3.6-5.5 Specimen moderately hemolyzed CHLORIDE (BEAKER) (test qymm=093) 112 meq/L 98-106 CO2 (BEAKER) (test ppzw=859) 15 meq/L 20-29 BLOOD UREA NITROGEN (BEAKER) (test pkpk=483) 45 mg/dL 10-26 CREATININE (BEAKER) (test hxme=619) 4.20 mg/dL 0.50-1.20 Specimen moderately hemolyzed GLUCOSE RANDOM (BEAKER) (test piik=801) 185 mg/dL 70-110 CALCIUM (BEAKER) (test ukzh=281) 7.6 mg/dL 8.5-10.5 AST (SGOT) (BEAKER) (test owwo=353) 15 U/L 5-40 Specimen moderately hemolyzed ALT (SGPT) (BEAKER) (test ibfb=958) 16 U/L 5-50 Specimen moderately hemolyzed EGFR (BEAKER) (test vmsa=0585) 16 mL/min/1.73 sq m ESTIMATED GFR IS NOT ACCURATE CREATININE CLEARANCE IN PREDICTING GLOMERULAR FILTRATION RATE. ESTIMATED GFR IS NOT APPLICABLE FOR DIALYSIS PATIENTS. COMPREHENSIVE METABOLIC [id number] 10:36:00* Test Item Value Reference Range Comments TOTAL PROTEIN (BEAKER) (test synb=032) 4.9 gm/dL 6.0-8.5 ALBUMIN (BEAKER) (test jzyj=5924) 2.1 g/dL 3.5-5.0 ALKALINE PHOSPHATASE (BEAKER) (test xtay=856) 103 U/L 30-115 BILIRUBIN TOTAL (BEAKER) (test hbgu=711) < mg/dL 0.1-1.2 SODIUM (BEAKER) (test wmxp=585) 138 meq/L 135-148 POTASSIUM (BEAKER) (test whlk=761) 4.4 meq/L 3.6-5.5 CHLORIDE (BEAKER) (test redz=088) 112 meq/L 98-106 CO2 (BEAKER) (test vdth=281) 16 meq/L 20-29 BLOOD UREA NITROGEN (BEAKER) (test iznt=333) 47 mg/dL 10-26 CREATININE (BEAKER) (test qwts=239) 4.40 mg/dL 0.50-1.20 GLUCOSE RANDOM (BEAKER) (test mcpy=947) 260 mg/dL 70-110 CALCIUM (BEAKER) (test lhuy=118) 7.7 mg/dL 8.5-10.5 AST (SGOT) (BEAKER) (test llbp=530) 9 U/L 5-40 ALT (SGPT) (BEAKER) (test joye=650) 16 U/L 5-50 EGFR (BEAKER) (test cbcr=2520) 15 mL/min/1.73 sq m ESTIMATED GFR IS NOT ACCURATE CREATININE CLEARANCE IN PREDICTING GLOMERULAR FILTRATION RATE. ESTIMATED GFR IS NOT APPLICABLE FOR DIALYSIS PATIENTS. [id number] 10:29:00* Test Item Value Reference Range Comments PHOSPHORUS (BEAKER) (test dmag=502) 4.7 mg/dL 2.5-4.5 CBC W/PLT COUNT & AUTO [id number] 09:23:00* Test Item Value Reference Range Comments WHITE BLOOD CELL COUNT (BEAKER) (test iesx=188) 11.8 K/ L 4.0-10.0 RED BLOOD CELL COUNT (BEAKER) (test yeck=236) 3.32 M/ L 4.00-5.00 HEMOGLOBIN (BEAKER) (test uxvy=139) 9.1 GM/DL 12.0-15.0 HEMATOCRIT (BEAKER) (test shsv=157) 28.6 % 36.0-45.0 MEAN CORPUSCULAR VOLUME (BEAKER) (test xsjc=888) 85.9 fL 82.0-99.0 MEAN CORPUSCULAR HEMOGLOBIN (BEAKER) (test qjiv=279) 27.5 pg 27.0-33.0 MEAN CORPUSCULAR HEMOGLOBIN CONC (BEAKER) (test ebfq=115) 32.0 GM/DL 32.0-36.0 RED CELL DISTRIBUTION WIDTH (BEAKER) (test atse=810) 15.3 % 10.3-14.2 PLATELET COUNT (BEAKER) (test nbap=088) 282 K/CU MM 150-430 MEAN PLATELET VOLUME (BEAKER) (test ptjq=606) 7.2 fL 6.5-10.5 NUCLEATED RED BLOOD CELLS (BEAKER) (test ayyi=039) 0 /100 WBC 0-0 NEUTROPHILS RELATIVE PERCENT (BEAKER) (test ejnd=277) 77 % LYMPHOCYTES RELATIVE PERCENT (BEAKER) (test jzhg=653) 16 % MONOCYTES RELATIVE PERCENT (BEAKER) (test gfzl=748) 5 % EOSINOPHILS RELATIVE PERCENT (BEAKER) (test tgrs=632) 2 % BASOPHILS RELATIVE PERCENT (BEAKER) (test ssud=549) 0 % NEUTROPHILS ABSOLUTE COUNT (BEAKER) (test cezk=249) 9.10 K/ L 1.80-8.00 LYMPHOCYTES ABSOLUTE COUNT (BEAKER) (test srqt=070) 1.90 K/ L 1.48-4.50 MONOCYTES ABSOLUTE COUNT (BEAKER) (test jbkc=543) 0.60 K/ L 0.00-1.30 EOSINOPHILS ABSOLUTE COUNT (BEAKER) (test bkms=344) 0.20 K/ L 0.00-0.50 BASOPHILS ABSOLUTE COUNT (BEAKER) (test ufpk=547) 0.00 K/ L 0.00-0.20 POCT-GLUCOSE [id number] 06:37:00* Test Item Value Reference Range Comments POC-GLUCOSE METER (BEAKER) (test lhlk=4283) 298 mg/dL 70-110 [address]ED AT [address] [address] POCT-GLUCOSE [id number] 21:06:00* Test Item Value Reference Range Comments POC-GLUCOSE METER (BEAKER) (test mukv=0418) 433 mg/dL 70-110 TESTED AT [address] [address] POCT-GLUCOSE [id number] 17:37:00* Test Item Value Reference Range Comments POC-GLUCOSE METER (BEAKER) (test kztl=7874) 427 mg/dL 70-110 Notified ALICJA BECKFORD/TESTED AT [place] [address] HEPATITIS B SURFACE [id number] 12:49:00* Test Item Value Reference Range Comments HEPATITIS B SURFACE ANTIBODY (BEAKER) (test pfaw=984) 4285.4 mIU/mL <8.0 POCT-GLUCOSE [id number] 12:37:00* Test Item Value Reference Range Comments POC-GLUCOSE METER (BEAKER) (test qsez=8867) 361 mg/dL 70-110 TESTED AT [place] [address] HEPATITIS B CORE ANTIBODY, [id number] 12:00:00* Test Item Value Reference Range Comments HEPATITIS B CORE TOTAL ANTIBODY (BEAKER) (test fgjb=971) Nonreactive Nonreactive POCT-GLUCOSE [id number] 08:51:00* Test Item Value Reference Range Comments POC-GLUCOSE METER (BEAKER) (test nzrw=2739) 182 mg/dL 70-110 TESTED AT [place] [id number] POCT-GLUCOSE [id number] 06:58:00* Test Item Value Reference Range Comments POC-GLUCOSE METER (BEAKER) (test iszk=8321) 145 mg/dL 70-110 TESTED AT [address] [address] POCT-GLUCOSE [id number] 04:20:00* Test Item Value Reference Range Comments POC-GLUCOSE METER (BEAKER) (test ambh=1907) 98 mg/dL 70-110 TESTED AT [address] [address] POCT-GLUCOSE [id number] 02:46:00* Test Item Value Reference Range Comments POC-GLUCOSE METER (BEAKER) (test dlmy=4454) 104 mg/dL 70-110 TESTED AT [facility] [address] [facility] [address] COMPREHENSIVE METABOLIC [id number] 02:23:00* Test Item Value Reference Range Comments TOTAL PROTEIN (BEAKER) (test mwfg=079) 4.8 gm/dL 6.0-8.5 ALBUMIN (BEAKER) (test obon=0775) 2.0 g/dL 3.5-5.0 ALKALINE PHOSPHATASE (BEAKER) (test jpri=811) 91 U/L 30-115 BILIRUBIN TOTAL (BEAKER) (test fpyd=394) < mg/dL 0.1-1.2 SODIUM (BEAKER) (test iqkp=470) 142 meq/L 135-148 POTASSIUM (BEAKER) (test cgqq=981) 4.2 meq/L 3.6-5.5 CHLORIDE (BEAKER) (test yhcc=099) 116 meq/L 98-106 CO2 (BEAKER) (test sbjx=810) 16 meq/L 20-29 BLOOD UREA NITROGEN (BEAKER) (test ehiv=641) 42 mg/dL 10-26 CREATININE (BEAKER) (test elxu=979) 4.30 mg/dL 0.50-1.20 GLUCOSE RANDOM (BEAKER) (test fxid=426) 47 mg/dL 70-110 CALCIUM (BEAKER) (test ngaf=668) 7.4 mg/dL 8.5-10.5 AST (SGOT) (BEAKER) (test kqgy=701) 12 U/L 5-40 ALT (SGPT) (BEAKER) (test qxag=470) 18 U/L 5-50 EGFR (BEAKER) (test fmvx=1353) 15 mL/min/1.73 sq m ESTIMATED GFR IS NOT ACCURATE CREATININE CLEARANCE IN PREDICTING GLOMERULAR FILTRATION RATE. ESTIMATED GFR IS NOT APPLICABLE FOR DIALYSIS PATIENTS. [id number] 02:12:00* Test Item Value Reference Range Comments PHOSPHORUS (BEAKER) (test byvv=813) 5.1 mg/dL 2.5-4.5 CBC W/PLT COUNT & AUTO [id number] 01:57:00* Test Item Value Reference Range Comments WHITE BLOOD CELL COUNT (BEAKER) (test hmuc=509) 9.4 K/ L 4.0-10.0 RED BLOOD CELL COUNT (BEAKER) (test pbvl=030) 3.22 M/ L 4.00-5.00 HEMOGLOBIN (BEAKER) (test suiy=394) 8.9 GM/DL 12.0-15.0 HEMATOCRIT (BEAKER) (test vsro=674) 27.9 % 36.0-45.0 MEAN CORPUSCULAR VOLUME (BEAKER) (test xdlg=633) 86.6 fL 82.0-99.0 MEAN CORPUSCULAR HEMOGLOBIN (BEAKER) (test upfn=471) 27.7 pg 27.0-33.0 MEAN CORPUSCULAR HEMOGLOBIN CONC (BEAKER) (test doao=458) 31.9 GM/DL 32.0-36.0 RED CELL DISTRIBUTION WIDTH (BEAKER) (test dkjs=089) 15.3 % 10.3-14.2 PLATELET COUNT (BEAKER) (test glvq=914) 294 K/CU MM 150-430 MEAN PLATELET VOLUME (BEAKER) (test cxfu=186) 7.0 fL 6.5-10.5 NUCLEATED RED BLOOD CELLS (BEAKER) (test kboq=684) 0 /100 WBC 0-0 NEUTROPHILS RELATIVE PERCENT (BEAKER) (test geam=500) 64 % LYMPHOCYTES RELATIVE PERCENT (BEAKER) (test sxzo=281) 24 % MONOCYTES RELATIVE PERCENT (BEAKER) (test jvzb=477) 5 % EOSINOPHILS RELATIVE PERCENT (BEAKER) (test tuvh=997) 6 % BASOPHILS RELATIVE PERCENT (BEAKER) (test rmfq=899) 1 % NEUTROPHILS ABSOLUTE COUNT (BEAKER) (test ksyf=164) 6.10 K/ L 1.80-8.00 LYMPHOCYTES ABSOLUTE COUNT (BEAKER) (test xjdh=060) 2.30 K/ L 1.48-4.50 MONOCYTES ABSOLUTE COUNT (BEAKER) (test hiru=495) 0.50 K/ L 0.00-1.30 EOSINOPHILS ABSOLUTE COUNT (BEAKER) (test nrid=338) 0.50 K/ L 0.00-0.50 BASOPHILS ABSOLUTE COUNT (BEAKER) (test alcw=717) 0.10 K/ L 0.00-0.20 POCT-GLUCOSE [id number] 01:38:00* Test Item Value Reference Range Comments POC-GLUCOSE METER (BEAKER) (test pysb=3072) 45 mg/dL 70-110 TESTED AT [address] [address] POCT-GLUCOSE [id number] 00:28:00* Test Item Value Reference Range Comments POC-GLUCOSE METER (BEAKER) (test gvmn=1572) 69 mg/dL 70-110 TESTED AT [address] [address] POCT-GLUCOSE [id number] 22:42:00* Test Item Value Reference Range Comments POC-GLUCOSE METER (BEAKER) (test gbvf=2963) 61 mg/dL 70-110 TESTED AT [address] [address] POCT-GLUCOSE [id number] 21:30:00* Test Item Value Reference Range Comments POC-GLUCOSE METER (BEAKER) (test igpv=7087) 82 mg/dL 70-110 TESTED AT [address] [address] POCT-GLUCOSE [id number] 21:05:00* Test Item Value Reference Range Comments POC-GLUCOSE METER (BEAKER) (test wuql=9315) 38 mg/dL 70-110 TESTED AT [address] [address] PROTEIN, RANDOM [id number] 20:07:00* Test Item Value Reference Range Comments PROTEIN, URINE (BEAKER) (test dwmm=3898) 491 mg/dL 0-14 URINALYSIS W/ REFLEX URINE [id number] 19:34:00* Test Item Value Reference Range Comments COLOR (BEAKER) (test svlc=687) Yellow CLARITY (BEAKER) (test iyrl=239) Clear SPECIFIC GRAVITY UA (BEAKER) (test ygdn=508) 1.020 1.001-1.035 PH UA (BEAKER) (test exsy=863) 6.5 5.0-8.0 PROTEIN UA (BEAKER) (test wifl=476) >=300 mg/dL Negative GLUCOSE UA (BEAKER) (test lsdd=091) 100 mg/dL Negative KETONES UA (BEAKER) (test wltj=687) Negative Negative BILIRUBIN UA (BEAKER) (test ajoc=164) Negative Negative BLOOD UA (BEAKER) (test ftoj=178) Small Negative NITRITE UA (BEAKER) (test lajm=142) Negative Negative LEUKOCYTE ESTERASE UA (BEAKER) (test wfeq=345) Negative Negative UROBILINOGEN UA (BEAKER) (test hifb=708) 0.2 mg/dL 0.2-1.0 BACTERIA (BEAKER) (test bukk=605) Occasional RBC UA-MANUAL (BEAKER) (test jlsm=3757) 5-10 /HPF WBC UA-MANUAL (BEAKER) (test kgdx=8080) <5 /HPF SQUAMOUS EPITHELIAL MANUAL (BEAKER) (test rlez=3180) <5 /HPF SOURCE(BEAKER) (test snxh=3231) CREATININE, RANDOM [id number] 19:34:00* Test Item Value Reference Range Comments CREATININE URINE (BEAKER) (test vcen=787) 37.2 mg/dL Reference Range: No NormalsPOCT-GLUCOSE [id number] 17:10:00* Test Item Value Reference Range Comments POC-GLUCOSE METER (BEAKER) (test kahr=2735) 101 mg/dL 70-110 TESTED AT [place] [address] POCT-GLUCOSE [id number] 11:59:00* Test Item Value Reference Range Comments POC-GLUCOSE METER (BEAKER) (test qdjz=5368) 190 mg/dL 70-110 TESTED AT [place] [address] [facility] [address] HEPATITIS B SURFACE [id number] 11:42:00* Test Item Value Reference Range Comments HEPATITIS B SURFACE ANTIGEN (2) (BEAKER) (test vpai=1570) Nonreactive Nonreactive COMPREHENSIVE METABOLIC [id number] 11:32:00* Test Item Value Reference Range Comments TOTAL PROTEIN (BEAKER) (test edsl=547) 4.6 gm/dL 6.0-8.5 ALBUMIN (BEAKER) (test icyo=1576) 1.9 g/dL 3.5-5.0 ALKALINE PHOSPHATASE (BEAKER) (test ygdv=601) 93 U/L 30-115 BILIRUBIN TOTAL (BEAKER) (test bfll=444) < mg/dL 0.1-1.2 SODIUM (BEAKER) (test mbmw=277) 139 meq/L 135-148 POTASSIUM (BEAKER) (test enot=423) 4.3 meq/L 3.6-5.5 CHLORIDE (BEAKER) (test alnb=769) 117 meq/L 98-106 CO2 (BEAKER) (test tpiw=574) 14 meq/L 20-29 BLOOD UREA NITROGEN (BEAKER) (test lvdx=837) 40 mg/dL 10-26 CREATININE (BEAKER) (test wqud=438) 4.10 mg/dL 0.50-1.20 GLUCOSE RANDOM (BEAKER) (test kwgm=204) 146 mg/dL 70-110 CALCIUM (BEAKER) (test moay=659) 7.3 mg/dL 8.5-10.5 AST (SGOT) (BEAKER) (test djzl=081) 12 U/L 5-40 ALT (SGPT) (BEAKER) (test wqct=520) 18 U/L 5-50 EGFR (BEAKER) (test hsug=0446) 16 mL/min/1.73 sq m ESTIMATED GFR IS NOT ACCURATE CREATININE CLEARANCE IN PREDICTING GLOMERULAR FILTRATION RATE. ESTIMATED GFR IS NOT APPLICABLE FOR DIALYSIS PATIENTS. [id number] 11:31:00* Test Item Value Reference Range Comments PHOSPHORUS (BEAKER) (test qisa=743) 4.9 mg/dL 2.5-4.5 [id number] 11:26:00* Test Item Value Reference Range Comments MAGNESIUM (BEAKER) (test ixsv=020) 1.3 mg/dL 1.5-3.0 POCT-GLUCOSE [id number] 06:46:00* Test Item Value Reference Range Comments POC-GLUCOSE METER (BEAKER) (test paiz=9868) 98 mg/dL 70-110 TESTED AT [address] [address] POCT-GLUCOSE [id number] 01:17:00* Test Item Value Reference Range Comments POC-GLUCOSE METER (BEAKER) (test qqzl=8927) 101 mg/dL 70-110 TESTED AT [address] [address] URINALYSIS W/ [id number] 01:14:00* Test Item Value Reference Range Comments COLOR (BEAKER) (test akbh=116) Yellow CLARITY (BEAKER) (test kvrs=734) Clear SPECIFIC GRAVITY UA (BEAKER) (test jocf=901) 1.015 1.001-1.035 PH UA (BEAKER) (test ngmt=523) 7.0 5.0-8.0 PROTEIN UA (BEAKER) (test qicv=910) >=300 mg/dL Negative GLUCOSE UA (BEAKER) (test dcxg=524) 500 mg/dL Negative KETONES UA (BEAKER) (test nplp=740) Negative Negative BILIRUBIN UA (BEAKER) (test bgtn=329) Negative Negative BLOOD UA (BEAKER) (test aufg=683) Moderate Negative NITRITE UA (BEAKER) (test cyzs=707) Negative Negative LEUKOCYTE ESTERASE UA (BEAKER) (test eggz=985) Negative Negative UROBILINOGEN UA (BEAKER) (test jzft=638) 0.2 mg/dL 0.2-1.0 BACTERIA (BEAKER) (test uejv=790) Few MUCUS (BEAKER) (test wnum=5415) Few RBC UA-MANUAL (BEAKER) (test jrlw=6173) 5-10 /HPF WBC UA-MANUAL (BEAKER) (test kutw=3845) <5 /HPF SQUAMOUS EPITHELIAL MANUAL (BEAKER) (test rdiy=3456) 20-50 /HPF SOURCE(BEAKER) (test bpjv=7604) SCREEN, [id number] 00:53:00* Test Item Value Reference Range Comments TEST URINE (BEAKER) (test hlzq=033) Positive PROTHROMBIN TIME/[id number] 22:47:00* Test Item Value Reference Range Comments PROTIME (BEAKER) (test cvxm=875) 10.1 seconds 9.3-12.0 INR (BEAKER) (test ldei=146) 1.0 <=5.9 RECOMMENDED COUMADIN/WARFARIN INR THERAPY RANGESSTANDARD DOSE: 2.0 - 3.0 Inclu muriel: PROPHYLAXIS for venous thrombosis, systemic embolization; TREATMENT for sonu ous thrombosis and/or pulmonary embolus.HIGH RISK: Target INR is 2.5-3.5 for pat ients with mechanical heart valves.CBC W/PLT COUNT & AUTO [id number] 22:15:00* Test Item Value Reference Range Comments WHITE BLOOD CELL COUNT (BEAKER) (test mhpd=000) 13.2 K/ L 4.0-10.0 RED BLOOD CELL COUNT (BEAKER) (test kysj=857) 3.44 M/ L 4.00-5.00 HEMOGLOBIN (BEAKER) (test gsdw=254) 9.5 GM/DL 12.0-15.0 HEMATOCRIT (BEAKER) (test eync=428) 29.9 % 36.0-45.0 MEAN CORPUSCULAR VOLUME (BEAKER) (test ynhn=382) 86.8 fL 82.0-99.0 MEAN CORPUSCULAR HEMOGLOBIN (BEAKER) (test dnph=332) 27.5 pg 27.0-33.0 MEAN CORPUSCULAR HEMOGLOBIN CONC (BEAKER) (test plkp=907) 31.7 GM/DL 32.0-36.0 RED CELL DISTRIBUTION WIDTH (BEAKER) (test rvjx=178) 15.2 % 10.3-14.2 PLATELET COUNT (BEAKER) (test pghg=972) 289 K/CU MM 150-430 MEAN PLATELET VOLUME (BEAKER) (test bxrl=586) 7.1 fL 6.5-10.5 (MANUAL DIFFERENTIAL)2016-12-30 22:15:00* Test Item Value Reference Range Comments NEUTROPHILS - REL (DIFF) (BEAKER) (test fhup=6608) 76 % LYMPHOCYTES - REL (DIFF) (BEAKER) (test aczx=9095) 22 % MONOCYTES - REL (DIFF) (BEAKER) (test vlpj=3106) 1 % EOSINOPHILS - REL (DIFF) (BEAKER) (test emtv=6640) 1 % NEUTROPHILS - ABS (DIFF) (BEAKER) (test lydk=7020) 10.03 K/ L 1.80-8.00 LYMPHOCYTES - ABS (DIFF) (BEAKER) (test jqdr=8765) 2.90 K/ L 1.48-4.50 MONOCYTES - ABS (DIFF) (BEAKER) (test vtnu=5987) 0.13 K/ L 0.00-1.30 EOSINOPHILS - ABS (DIFF) (BEAKER) (test vynn=2697) 0.13 K/ L 0.00-0.50 TOTAL COUNTED (BEAKER) (test qrsl=7931) 100 WBC MORPHOLOGY (BEAKER) (test hgbq=227) Normal PLT MORPHOLOGY (BEAKER) (test kgxz=598) Normal RBC MORPHOLOGY (BEAKER) (test yvct=428) Normal COMPREHENSIVE METABOLIC [id number] 22:06:00* Test Item Value Reference Range Comments TOTAL PROTEIN (BEAKER) (test jpcr=225) 5.1 gm/dL 6.0-8.5 ALBUMIN (BEAKER) (test gizt=7928) 2.1 g/dL 3.5-5.0 ALKALINE PHOSPHATASE (BEAKER) (test lzzi=170) 113 U/L 30-115 BILIRUBIN TOTAL (BEAKER) (test zfyc=117) < mg/dL 0.1-1.2 SODIUM (BEAKER) (test qmrg=887) 140 meq/L 135-148 POTASSIUM (BEAKER) (test npgp=193) 4.3 meq/L 3.6-5.5 CHLORIDE (BEAKER) (test wjis=407) 116 meq/L 98-106 CO2 (BEAKER) (test cttt=773) 14 meq/L 20-29 BLOOD UREA NITROGEN (BEAKER) (test qqdu=593) 45 mg/dL 10-26 CREATININE (BEAKER) (test grdw=437) 4.50 mg/dL 0.50-1.20 GLUCOSE RANDOM (BEAKER) (test bcrr=923) 184 mg/dL 70-110 CALCIUM (BEAKER) (test ukdb=116) 7.2 mg/dL 8.5-10.5 AST (SGOT) (BEAKER) (test jtau=779) 17 U/L 5-40 ALT (SGPT) (BEAKER) (test iuno=546) 22 U/L 5-50 EGFR (BEAKER) (test aesu=5757) 14 mL/min/1.73 sq m ESTIMATED GFR IS NOT ACCURATE CREATININE CLEARANCE IN PREDICTING GLOMERULAR FILTRATION RATE. ESTIMATED GFR IS NOT APPLICABLE FOR DIALYSIS PATIENTS. [id number] 21:59:00* Test Item Value Reference Range Comments LIPASE (BEAKER) (test snxk=181) 48 U/L 6-51 CARDIOLIPIN ANTIBODIES, IGG AND [id number] 12:42:00* Test Item Value Reference Range Comments ANTICARDIOLIPIN IGG ANTIBODY (BEAKER) (test wsms=663) < GPL This is a corrected result. Previous result was <0.2 GPL on 10/28/2016 at 0920 CDT ANTICARDIOLIPIN IGM ANTIBODY (BEAKER) (test zjys=538) < MPL This is a corrected result. Previous result was <1.6 MPL on 10/28/2016 at 0920 CDT Anticardiolipin IgG Result Interpretation:NEG: <20 GPL; U/mlPOS: >/=20 GPL; U/mlAnticardiolipin IgM Result Interpretation:NEG: <20 MPL; U/mlPOS: >/=20 MPL; U/mlPOCT-GLUCOSE [id number] 16:17:00* Test Item Value Reference Range Comments POC-GLUCOSE METER (BEAKER) (test bqpz=4099) 41 mg/dL 70-110 TESTED AT [place] [address] ANTI-NUCLEAR ANTIBODY (PHILOMENA)2016-10-28 13:07:00* Test Item Value Reference Range Comments ANTI-NUCLEAR ANTIBODY (PHILOMENA) (BEAKER) (test iwvw=645) Negative Negative POCT-GLUCOSE [id number] 12:33:00* Test Item Value Reference Range Comments POC-GLUCOSE METER (BEAKER) (test rvok=9108) 111 mg/dL 70-110 TESTED AT [place] [address] [facility] (DRVV)2016-10-28 12:05:00* Test Item Value Reference Range Comments PROTIME (BEAKER) (test zisc=723) 12.7 seconds 11.7-14.7 INR (BEAKER) (test uwzx=522) 1.0 <=5.9 PARTIAL THROMBOPLASTIN TIME (BEAKER) (test hcmh=847) 60.6 seconds 22.5-36.0 DRVV INTERPRETATION (BEAKER) (test klxa=1526) Prolonged PTT Results DRVV INTERPRETATION (BEAKER) (test gyjj=468357) Normal DRVV Results DRVV INTERPRETATION (BEAKER) (test rbba=520664) Negative screen for Lupus Anticoagulant [id number] (BEAKER) (test czxx=6508) Nieves Iraheta MD (electronic signature) DRVV SCREEN RATIO (BEAKER) (test gzyf=5572) 0.98 <1.20 Normal thrombin time. Prolonged PTT did not correct with 1:1 mix. Effective 2013: Test Method ChangeDRVV Screen Ratio, DRVV 1/1 Screen Ratio, DRVV Confirm R atio,DRVV Normalized Ratio Reference Range: <1.2Protime Reference Range ChangeNew: 11.7-14.7 Previous: 9.8-12.0PTT Reference Range ChangeNew: 22.5-36.0 Previous: 25.8-34.5POCT-GLUCOSE [id number] 08:31:00* Test Item Value Reference Range Comments POC-GLUCOSE METER (BEAKER) (test snkq=5699) 171 mg/dL 70-110 TESTED AT [address] [address] BASIC METABOLIC [id number] 05:23:00* Test Item Value Reference Range Comments SODIUM (BEAKER) (test isvg=413) 137 meq/L 135-148 POTASSIUM (BEAKER) (test gbov=906) 4.6 meq/L 3.6-5.5 CHLORIDE (BEAKER) (test vvto=358) 113 meq/L 98-106 CO2 (BEAKER) (test uiqp=769) 17 meq/L 20-29 BLOOD UREA NITROGEN (BEAKER) (test dsea=597) 25 mg/dL 10-26 CREATININE (BEAKER) (test qdlw=669) 2.90 mg/dL 0.50-1.20 GLUCOSE RANDOM (BEAKER) (test wcux=156) 181 mg/dL 70-110 CALCIUM (BEAKER) (test kxwq=539) 7.0 mg/dL 8.5-10.5 EGFR (BEAKER) (test dfpu=2889) 24 mL/min/1.73 sq m ESTIMATED GFR IS NOT ACCURATE CREATININE CLEARANCE IN PREDICTING GLOMERULAR FILTRATION RATE. ESTIMATED GFR IS NOT APPLICABLE FOR DIALYSIS PATIENTS. POCT-GLUCOSE [id number] 21:05:00* Test Item Value Reference Range Comments POC-GLUCOSE METER (BEAKER) (test oknj=8570) 113 mg/dL 70-110 TESTED AT [address] [address] POCT-GLUCOSE [id number] 16:17:00* Test Item Value Reference Range Comments POC-GLUCOSE METER (BEAKER) (test jhfn=9871) 181 mg/dL 70-110 TESTED AT [address] [address] POCT-GLUCOSE [id number] 12:54:00* Test Item Value Reference Range Comments POC-GLUCOSE METER (BEAKER) (test gnup=5063) 104 mg/dL 70-110 TESTED AT [address] [address] IRON, TIBC, % SAT. (WITHOUT FERRITIN)2016-10-27 12:53:00* Test Item Value Reference Range Comments IRON (BEAKER) (test jsyu=791) 59 ug/dL 40-160 TOTAL IRON BINDING CAPACITY (BEAKER) (test njsi=384) 151 ug/dL 250-450 IRON % SATURATION (2) (BEAKER) (test auit=9130) 39 % 20-55 POCT-GLUCOSE [id number] 08:37:00* Test Item Value Reference Range Comments POC-GLUCOSE METER (BEAKER) (test sjvv=6887) 180 mg/dL 70-110 TESTED AT [place] [address] BASIC METABOLIC [id number] 06:04:00* Test Item Value Reference Range Comments SODIUM (BEAKER) (test ymlr=512) 139 meq/L 135-148 POTASSIUM (BEAKER) (test dofu=464) 4.8 meq/L 3.6-5.5 CHLORIDE (BEAKER) (test fswn=876) 114 meq/L 98-106 CO2 (BEAKER) (test isxy=513) 17 meq/L 20-29 BLOOD UREA NITROGEN (BEAKER) (test wqhd=885) 24 mg/dL 10-26 CREATININE (BEAKER) (test cxnz=754) 3.00 mg/dL 0.50-1.20 GLUCOSE RANDOM (BEAKER) (test aqpk=388) 182 mg/dL 70-110 CALCIUM (BEAKER) (test vskq=847) 6.5 mg/dL 8.5-10.5 EGFR (BEAKER) (test glha=5151) 23 mL/min/1.73 sq m ESTIMATED GFR IS NOT ACCURATE CREATININE CLEARANCE IN PREDICTING GLOMERULAR FILTRATION RATE. ESTIMATED GFR IS NOT APPLICABLE FOR DIALYSIS PATIENTS. POCT-GLUCOSE [id number] 00:51:00* Test Item Value Reference Range Comments POC-GLUCOSE METER (BEAKER) (test boob=4111) 150 mg/dL 70-110 TESTED AT [address] [address] POCT-GLUCOSE [id number] 21:17:00* Test Item Value Reference Range Comments POC-GLUCOSE METER (BEAKER) (test olxt=4494) 214 mg/dL 70-110 TESTED AT [facility] [address] [facility] [address] POCT-GLUCOSE [id number] 20:04:00* Test Item Value Reference Range Comments POC-GLUCOSE METER (BEAKER) (test aiwr=1302) 71 mg/dL 70-110 TESTED AT [facility] [address] [facility] [address] POCT-GLUCOSE [id number] 16:39:00* Test Item Value Reference Range Comments POC-GLUCOSE METER (BEAKER) (test choo=1747) 46 mg/dL 70-110 TESTED AT [address] [address] POCT-GLUCOSE [id number] 12:38:00* Test Item Value Reference Range Comments POC-GLUCOSE METER (BEAKER) (test ohas=7685) 167 mg/dL 70-110 TESTED AT [facility] [address] [facility] [address] POCT-GLUCOSE [id number] 08:42:00* Test Item Value Reference Range Comments POC-GLUCOSE METER (BEAKER) (test kdwe=2777) 121 mg/dL 70-110 TESTED AT [address] [address] COMPREHENSIVE METABOLIC [id number] 06:13:00* Test Item Value Reference Range Comments TOTAL PROTEIN (BEAKER) (test hrfn=505) 4.4 gm/dL 6.0-8.5 ALBUMIN (BEAKER) (test xlez=7415) 1.8 g/dL 3.5-5.0 ALKALINE PHOSPHATASE (BEAKER) (test abeh=034) 82 U/L 30-115 BILIRUBIN TOTAL (BEAKER) (test rlrn=576) < mg/dL 0.1-1.2 SODIUM (BEAKER) (test amyz=310) 140 meq/L 135-148 POTASSIUM (BEAKER) (test zvwm=949) 4.1 meq/L 3.6-5.5 CHLORIDE (BEAKER) (test mdfp=338) 119 meq/L 98-106 CO2 (BEAKER) (test putq=286) 14 meq/L 20-29 BLOOD UREA NITROGEN (BEAKER) (test ugoz=418) 24 mg/dL 10-26 CREATININE (BEAKER) (test hgtx=568) 3.10 mg/dL 0.50-1.20 GLUCOSE RANDOM (BEAKER) (test pgey=513) 89 mg/dL 70-110 CALCIUM (BEAKER) (test kxtk=532) 7.0 mg/dL 8.5-10.5 AST (SGOT) (BEAKER) (test kqxq=389) 11 U/L 5-40 ALT (SGPT) (BEAKER) (test vkyd=045) 8 U/L 5-50 EGFR (BEAKER) (test gtzx=4397) 22 mL/min/1.73 sq m ESTIMATED GFR IS NOT ACCURATE CREATININE CLEARANCE IN PREDICTING GLOMERULAR FILTRATION RATE. ESTIMATED GFR IS NOT APPLICABLE FOR DIALYSIS PATIENTS. CBC W/PLT COUNT & AUTO [id number] 05:35:00* Test Item Value Reference Range Comments WHITE BLOOD CELL COUNT (BEAKER) (test veyt=270) 8.3 K/ L 4.0-10.0 RED BLOOD CELL COUNT (BEAKER) (test dnxh=401) 2.83 M/ L 4.00-5.00 HEMOGLOBIN (BEAKER) (test fvhw=860) 8.0 GM/DL 12.0-15.0 HEMATOCRIT (BEAKER) (test elsu=551) 24.9 % 36.0-45.0 MEAN CORPUSCULAR VOLUME (BEAKER) (test logw=008) 87.8 fL 82.0-99.0 MEAN CORPUSCULAR HEMOGLOBIN (BEAKER) (test qfbl=426) 28.4 pg 27.0-33.0 MEAN CORPUSCULAR HEMOGLOBIN CONC (BEAKER) (test pzqo=373) 32.3 GM/DL 32.0-36.0 RED CELL DISTRIBUTION WIDTH (BEAKER) (test vheo=239) 13.6 % 10.3-14.2 PLATELET COUNT (BEAKER) (test pbhq=397) 215 K/CU MM 150-430 MEAN PLATELET VOLUME (BEAKER) (test mhan=311) 7.2 fL 6.5-10.5 NUCLEATED RED BLOOD CELLS (BEAKER) (test oviy=212) 0 /100 WBC 0-0 NEUTROPHILS RELATIVE PERCENT (BEAKER) (test hezl=552) 76 % LYMPHOCYTES RELATIVE PERCENT (BEAKER) (test msdp=255) 18 % MONOCYTES RELATIVE PERCENT (BEAKER) (test hcyc=789) 4 % EOSINOPHILS RELATIVE PERCENT (BEAKER) (test umnt=024) 1 % BASOPHILS RELATIVE PERCENT (BEAKER) (test frmc=912) 0 % NEUTROPHILS ABSOLUTE COUNT (BEAKER) (test wrjd=783) 6.30 K/ L 1.80-8.00 LYMPHOCYTES ABSOLUTE COUNT (BEAKER) (test buyi=220) 1.50 K/ L 1.48-4.50 MONOCYTES ABSOLUTE COUNT (BEAKER) (test fvmd=130) 0.30 K/ L 0.00-1.30 EOSINOPHILS ABSOLUTE COUNT (BEAKER) (test cgds=371) 0.10 K/ L 0.00-0.50 BASOPHILS ABSOLUTE COUNT (BEAKER) (test bumm=875) 0.00 K/ L 0.00-0.20 POCT-GLUCOSE [id number] 21:00:00* Test Item Value Reference Range Comments POC-GLUCOSE METER (BEAKER) (test unyl=9387) 127 mg/dL 70-110 TESTED AT [address] [address] POCT-GLUCOSE [id number] 16:38:00* Test Item Value Reference Range Comments POC-GLUCOSE METER (BEAKER) (test mhoa=7396) 126 mg/dL 70-110 TESTED AT [address] [address] POCT-GLUCOSE [id number] 12:11:00* Test Item Value Reference Range Comments POC-GLUCOSE METER (BEAKER) (test jqha=1147) 255 mg/dL 70-110 TESTED AT [address] [address] BASIC METABOLIC [id number] 07:14:00* Test Item Value Reference Range Comments SODIUM (BEAKER) (test omnj=077) 137 meq/L 135-148 POTASSIUM (BEAKER) (test twoy=209) 4.6 meq/L 3.6-5.5 CHLORIDE (BEAKER) (test aahc=934) 117 meq/L 98-106 CO2 (BEAKER) (test dqsi=909) 12 meq/L 20-29 BLOOD UREA NITROGEN (BEAKER) (test tmeg=921) 27 mg/dL 10-26 CREATININE (BEAKER) (test tcyy=043) 3.00 mg/dL 0.50-1.20 GLUCOSE RANDOM (BEAKER) (test lupl=427) 239 mg/dL 70-110 CALCIUM (BEAKER) (test faxd=995) 7.5 mg/dL 8.5-10.5 EGFR (BEAKER) (test vrdf=2147) 23 mL/min/1.73 sq m ESTIMATED GFR IS NOT ACCURATE CREATININE CLEARANCE IN PREDICTING GLOMERULAR FILTRATION RATE. ESTIMATED GFR IS NOT APPLICABLE FOR DIALYSIS PATIENTS. CBC W/PLT COUNT & AUTO [id number] 07:00:00* Test Item Value Reference Range Comments WHITE BLOOD CELL COUNT (BEAKER) (test qxar=609) 8.9 K/ L 4.0-10.0 RED BLOOD CELL COUNT (BEAKER) (test dzvu=473) 3.15 M/ L 4.00-5.00 HEMOGLOBIN (BEAKER) (test ielq=360) 8.9 GM/DL 12.0-15.0 HEMATOCRIT (BEAKER) (test osxp=139) 27.2 % 36.0-45.0 MEAN CORPUSCULAR VOLUME (BEAKER) (test njtn=943) 86.4 fL 82.0-99.0 MEAN CORPUSCULAR HEMOGLOBIN (BEAKER) (test dfmz=749) 28.4 pg 27.0-33.0 MEAN CORPUSCULAR HEMOGLOBIN CONC (BEAKER) (test cjkx=411) 32.9 GM/DL 32.0-36.0 RED CELL DISTRIBUTION WIDTH (BEAKER) (test uwwk=211) 13.7 % 10.3-14.2 PLATELET COUNT (BEAKER) (test qzio=550) 243 K/CU MM 150-430 MEAN PLATELET VOLUME (BEAKER) (test ajld=484) 7.6 fL 6.5-10.5 NUCLEATED RED BLOOD CELLS (BEAKER) (test yjes=577) 0 /100 WBC 0-0 NEUTROPHILS RELATIVE PERCENT (BEAKER) (test wbue=988) 86 % LYMPHOCYTES RELATIVE PERCENT (BEAKER) (test bhod=231) 10 % MONOCYTES RELATIVE PERCENT (BEAKER) (test lvrb=191) 4 % EOSINOPHILS RELATIVE PERCENT (BEAKER) (test xjla=222) 0 % BASOPHILS RELATIVE PERCENT (BEAKER) (test eowg=218) 0 % NEUTROPHILS ABSOLUTE COUNT (BEAKER) (test adul=376) 7.60 K/ L 1.80-8.00 LYMPHOCYTES ABSOLUTE COUNT (BEAKER) (test dmwb=760) 0.90 K/ L 1.48-4.50 MONOCYTES ABSOLUTE COUNT (BEAKER) (test zjou=180) 0.30 K/ L 0.00-1.30 EOSINOPHILS ABSOLUTE COUNT (BEAKER) (test lsca=047) 0.00 K/ L 0.00-0.50 BASOPHILS ABSOLUTE COUNT (BEAKER) (test pywv=516) 0.00 K/ L 0.00-0.20 POCT-GLUCOSE [id number] 06:22:00* Test Item Value Reference Range Comments POC-GLUCOSE METER (BEAKER) (test qbwk=8091) 284 mg/dL 70-110 TESTED AT [address] [address] POCT-GLUCOSE [id number] 21:54:00* Test Item Value Reference Range Comments POC-GLUCOSE METER (BEAKER) (test keai=3206) 359 mg/dL 70-110 Notified ALICJA BECKFORD/TESTED AT [address] [address] URINALYSIS W/ [id number] 18:01:00* Test Item Value Reference Range Comments COLOR (BEAKER) (test perz=330) Yellow CLARITY (BEAKER) (test dmpv=750) Clear SPECIFIC GRAVITY UA (BEAKER) (test nvaa=633) 1.020 1.001-1.035 PH UA (BEAKER) (test chwu=564) 7.0 5.0-8.0 PROTEIN UA (BEAKER) (test iisu=766) >=300 mg/dL Negative GLUCOSE UA (BEAKER) (test gvxy=150) 250 mg/dL Negative KETONES UA (BEAKER) (test qyun=746) Trace Negative BILIRUBIN UA (BEAKER) (test zgma=604) Negative Negative BLOOD UA (BEAKER) (test xvez=859) Moderate Negative NITRITE UA (BEAKER) (test gzuw=888) Negative Negative LEUKOCYTE ESTERASE UA (BEAKER) (test ybkr=139) Trace Negative UROBILINOGEN UA (BEAKER) (test sgrl=292) 0.2 mg/dL 0.2-1.0 BACTERIA (BEAKER) (test duxg=969) Few RBC UA-MANUAL (BEAKER) (test mzej=5248) 10-20 /HPF WBC UA-MANUAL (BEAKER) (test jxga=3223) <5 /HPF SQUAMOUS EPITHELIAL MANUAL (BEAKER) (test kyed=7806) 5-10 /HPF SOURCE(BEAKER) (test xjla=2816) HCG, QUANTITATIVE, [id number] 16:06:00* Test Item Value Reference Range Comments GONADOTROPIN, CHORIONIC (HCG) QUANT (BEAKER) (test patl=076) [address] mIU/mL 0-10 Non- Females: <10 mIU/mL Females: Gestation Age Reference Range(mIU/mL) 0.2-1 Week 5-50 1-2 Weeks 50-500 2-3 Weeks 100-5,000 3-4 Weeks 500-10,000 4-5 Weeks 1,000-50,000 5-6 Weeks 10,000-100,000 6-8 Weeks 15,000-200,000 2-3 Months 10,000-100,000 TROPONIN [id number] 15:27:00* Test Item Value Reference Range Comments TROPONIN I (BEAKER) (test tkef=445) < ng/mL 0.00-0.15 Troponin I (TnI) levels must be interpreted in the context of the presenting sym ptoms and the clinical findings. Elevated TnI levels indicate myocardial damage, but are not specific for ischemic heart disease. Elevated TnI levels are seen in patients with other cardiac conditions (including myocarditis and congestive h eart failure), and slight TnI elevations occur in patients with other conditions , including sepsis, renal failure, acidosis, acute neurological disease, and per sistent tachyarrhythmia.CREATINE KINASE (CK), TOTAL AND [id number] 15:26:00* Test Item Value Reference Range Comments CREATINE KINASE TOTAL (BEAKER) (test znwu=639) 348 U/L 25-235 CREATINE KINASE-MB (BEAKER) (test rgnc=288) 5.5 ng/mL 0.0-4.9 CREATINE KINASE-MB INDEX (BEAKER) (test iria=244) 1.6 % CK-MB Reference Range:<5 Normal5-10 Borderline>10 AbnormalBASIC METABOLIC [id number] 15:18:00* Test Item Value Reference Range Comments SODIUM (BEAKER) (test upfk=700) 141 meq/L 135-148 POTASSIUM (BEAKER) (test mhoa=271) 4.0 meq/L 3.6-5.5 CHLORIDE (BEAKER) (test cmjw=571) 116 meq/L 98-106 CO2 (BEAKER) (test whkg=208) 13 meq/L 20-29 BLOOD UREA NITROGEN (BEAKER) (test sioh=819) 24 mg/dL 10-26 CREATININE (BEAKER) (test mspy=826) 2.70 mg/dL 0.50-1.20 GLUCOSE RANDOM (BEAKER) (test zxlc=908) 147 mg/dL 70-110 CALCIUM (BEAKER) (test vyfb=080) 8.2 mg/dL 8.5-10.5 EGFR (BEAKER) (test aquu=4862) 26 mL/min/1.73 sq m ESTIMATED GFR IS NOT ACCURATE CREATININE CLEARANCE IN PREDICTING GLOMERULAR FILTRATION RATE. ESTIMATED GFR IS NOT APPLICABLE FOR DIALYSIS PATIENTS. HEPATIC FUNCTION [id number] 15:18:00* Test Item Value Reference Range Comments TOTAL PROTEIN (BEAKER) (test uiss=330) 6.1 gm/dL 6.0-8.5 ALBUMIN (BEAKER) (test pzws=1335) 2.5 g/dL 3.5-5.0 BILIRUBIN TOTAL (BEAKER) (test mlgo=395) 0.2 mg/dL 0.1-1.2 BILIRUBIN DIRECT (BEAKER) (test ndah=128) 0.1 mg/dL 0.0-0.4 ALKALINE PHOSPHATASE (BEAKER) (test mkwh=356) 120 U/L 30-115 AST (SGOT) (BEAKER) (test jomm=666) 13 U/L 5-40 ALT (SGPT) (BEAKER) (test euwe=309) 13 U/L 5-50 [id number] 15:18:00* Test Item Value Reference Range Comments LIPASE (BEAKER) (test pubg=667) 17 U/L 6-51 B-TYPE NATRIURETIC FACTOR (BNP)2016-10-24 15:18:00* Test Item Value Reference Range Comments B-TYPE NATRIURETIC PEPTIDE (BEAKER) (test ubci=503) 41 pg/mL 0-100 [id number] 15:12:00* Test Item Value Reference Range Comments PROTIME (BEAKER) (test plxv=170) 9.6 seconds 9.3-12.0 INR (BEAKER) (test cxgj=549) 0.9 <=5.9 PARTIAL THROMBOPLASTIN TIME (BEAKER) (test rjbj=709) 31.3 seconds 23.0-35.0 RECOMMENDED COUMADIN/WARFARIN INR THERAPY RANGESSTANDARD DOSE: 2.0 - 3.0 Inclu muriel: PROPHYLAXIS for venous thrombosis, systemic embolization; TREATMENT for sonu ous thrombosis and/or pulmonary embolus.HIGH RISK: Target INR is 2.5-3.5 for pat ients with mechanical heart valves.[id number] 15:09:00* Test Item Value Reference Range Comments MAGNESIUM (BEAKER) (test onov=538) 1.6 mg/dL 1.5-3.0 CBC W/PLT COUNT & AUTO [id number] 14:57:00* Test Item Value Reference Range Comments WHITE BLOOD CELL COUNT (BEAKER) (test bbmm=841) 10.3 K/ L 4.0-10.0 RED BLOOD CELL COUNT (BEAKER) (test drjv=023) 3.77 M/ L 4.00-5.00 HEMOGLOBIN (BEAKER) (test zkqv=339) 10.7 GM/DL 12.0-15.0 HEMATOCRIT (BEAKER) (test pcwf=295) 32.7 % 36.0-45.0 MEAN CORPUSCULAR VOLUME (BEAKER) (test agku=749) 86.7 fL 82.0-99.0 MEAN CORPUSCULAR HEMOGLOBIN (BEAKER) (test jbfw=274) 28.4 pg 27.0-33.0 MEAN CORPUSCULAR HEMOGLOBIN CONC (BEAKER) (test hexk=409) 32.8 GM/DL 32.0-36.0 RED CELL DISTRIBUTION WIDTH (BEAKER) (test ntfg=500) 13.2 % 10.3-14.2 PLATELET COUNT (BEAKER) (test sjue=665) 258 K/CU MM 150-430 MEAN PLATELET VOLUME (BEAKER) (test ehyz=508) 7.5 fL 6.5-10.5 NUCLEATED RED BLOOD CELLS (BEAKER) (test ctsl=709) 0 /100 WBC 0-0 NEUTROPHILS RELATIVE PERCENT (BEAKER) (test bkyr=388) 76 % LYMPHOCYTES RELATIVE PERCENT (BEAKER) (test cesv=647) 17 % MONOCYTES RELATIVE PERCENT (BEAKER) (test trsn=886) 5 % EOSINOPHILS RELATIVE PERCENT (BEAKER) (test ftuv=902) 2 % BASOPHILS RELATIVE PERCENT (BEAKER) (test upcg=479) 0 % NEUTROPHILS ABSOLUTE COUNT (BEAKER) (test poda=846) 7.90 K/ L 1.80-8.00 LYMPHOCYTES ABSOLUTE COUNT (BEAKER) (test geah=594) 1.70 K/ L 1.48-4.50 MONOCYTES ABSOLUTE COUNT (BEAKER) (test zwqw=856) 0.50 K/ L 0.00-1.30 EOSINOPHILS ABSOLUTE COUNT (BEAKER) (test sqki=094) 0.20 K/ L 0.00-0.50 BASOPHILS ABSOLUTE COUNT (BEAKER) (test pyqn=402) 0.00 K/ L 0.00-0.20 POCT-GLUCOSE [id number] 18:24:00* Test Item Value Reference Range Comments POC-GLUCOSE METER (BEAKER) (test pfyp=3613) 100 mg/dL 70-110 TESTED AT [address] [address] POCT-GLUCOSE [id number] 16:51:00* Test Item Value Reference Range Comments POC-GLUCOSE METER (BEAKER) (test gqdn=3039) 84 mg/dL 70-110 TESTED AT [facility] [address] [place] [address] POCT-GLUCOSE [id number] 13:37:00* Test Item Value Reference Range Comments POC-GLUCOSE METER (BEAKER) (test uwas=1284) 164 mg/dL 70-110 TESTED AT [facility] [address] [facility] [address] POCT-GLUCOSE [id number] 11:39:00* Test Item Value Reference Range Comments POC-GLUCOSE METER (BEAKER) (test ezgm=2233) 215 mg/dL 70-110 TESTED AT [place] [address] [facility] [address] POCT-GLUCOSE [id number] 11:16:00* Test Item Value Reference Range Comments POC-GLUCOSE METER (BEAKER) (test djnd=1397) 295 mg/dL 70-110 TESTED AT [address] [address] POCT-GLUCOSE [id number] 08:20:00* Test Item Value Reference Range Comments POC-GLUCOSE METER (BEAKER) (test ddjx=3650) 175 mg/dL 70-110 TESTED AT [facility] [address] [facility] [address] POCT-GLUCOSE [id number] 08:20:00* Test Item Value Reference Range Comments POC-GLUCOSE METER (BEAKER) (test qkka=3940) 70 mg/dL 70-110 TESTED AT [facility] [address] [facility] [address] COMPREHENSIVE METABOLIC [id number] 06:04:00* Test Item Value Reference Range Comments TOTAL PROTEIN (BEAKER) (test zmpb=103) 5.0 gm/dL 6.0-8.5 ALBUMIN (BEAKER) (test kzjm=3603) 1.9 g/dL 3.5-5.0 ALKALINE PHOSPHATASE (BEAKER) (test rpqg=305) 90 U/L 30-115 BILIRUBIN TOTAL (BEAKER) (test fdal=653) < mg/dL 0.1-1.2 SODIUM (BEAKER) (test xvbh=026) 137 meq/L 135-148 POTASSIUM (BEAKER) (test yikb=199) 4.6 meq/L 3.6-5.5 CHLORIDE (BEAKER) (test xpod=253) 109 meq/L 98-106 CO2 (BEAKER) (test olrs=102) 20 meq/L 20-29 BLOOD UREA NITROGEN (BEAKER) (test keec=866) 26 mg/dL 10-26 CREATININE (BEAKER) (test ctnq=159) 2.40 mg/dL 0.50-1.20 GLUCOSE RANDOM (BEAKER) (test aets=419) 132 mg/dL 70-110 CALCIUM (BEAKER) (test dfwh=295) 7.8 mg/dL 8.5-10.5 AST (SGOT) (BEAKER) (test vavy=330) 9 U/L 5-40 ALT (SGPT) (BEAKER) (test zjgf=800) 10 U/L 5-50 EGFR (BEAKER) (test kouu=9715) 30 mL/min/1.73 sq m ESTIMATED GFR IS NOT ACCURATE CREATININE CLEARANCE IN PREDICTING GLOMERULAR FILTRATION RATE. ESTIMATED GFR IS NOT APPLICABLE FOR DIALYSIS PATIENTS. [id number] 05:54:00* Test Item Value Reference Range Comments PHOSPHORUS (BEAKER) (test seko=930) 3.8 mg/dL 2.5-4.5 POCT-GLUCOSE [id number] 22:45:00* Test Item Value Reference Range Comments POC-GLUCOSE METER (BEAKER) (test wggm=9467) 90 mg/dL 70-110 TESTED AT [address] [address] POCT-GLUCOSE [id number] 20:46:00* Test Item Value Reference Range Comments POC-GLUCOSE METER (BEAKER) (test akzh=3516) 85 mg/dL 70-110 TESTED AT [address] [address] POCT-GLUCOSE [id number] 20:46:00* Test Item Value Reference Range Comments POC-GLUCOSE METER (BEAKER) (test inti=9722) 42 mg/dL 70-110 TESTED AT [address] [address] POCT-GLUCOSE [id number] 19:43:00* Test Item Value Reference Range Comments POC-GLUCOSE METER (BEAKER) (test ctig=2648) 47 mg/dL 70-110 TESTED AT [address] [address] POCT-GLUCOSE [id number] 16:58:00* Test Item Value Reference Range Comments POC-GLUCOSE METER (BEAKER) (test emgb=7111) 231 mg/dL 70-110 TESTED AT [address] [address] POCT-GLUCOSE [id number] 14:07:00* Test Item Value Reference Range Comments POC-GLUCOSE METER (BEAKER) (test gmam=4957) 360 mg/dL 70-110 TESTED AT [address] [address] POCT-GLUCOSE [id number] 11:41:00* Test Item Value Reference Range Comments POC-GLUCOSE METER (BEAKER) (test wpks=2918) 403 mg/dL 70-110 TESTED AT [address] [address] POCT-GLUCOSE [id number] 10:11:00* Test Item Value Reference Range Comments POC-GLUCOSE METER (BEAKER) (test xdyz=5476) 359 mg/dL 70-110 TESTED AT [address] [address] POCT-GLUCOSE [id number] 08:14:00* Test Item Value Reference Range Comments POC-GLUCOSE METER (BEAKER) (test ntpz=8665) 124 mg/dL 70-110 TESTED AT [facility] [address] [facility] [address] POCT-GLUCOSE [id number] 06:44:00* Test Item Value Reference Range Comments POC-GLUCOSE METER (BEAKER) (test obxw=4264) 96 mg/dL 70-110 TESTED AT [facility] [address] [facility] [address] COMPREHENSIVE METABOLIC [id number] 06:24:00* Test Item Value Reference Range Comments TOTAL PROTEIN (BEAKER) (test rtzd=716) 5.1 gm/dL 6.0-8.5 ALBUMIN (BEAKER) (test rzox=9011) 2.0 g/dL 3.5-5.0 ALKALINE PHOSPHATASE (BEAKER) (test okww=671) 93 U/L 30-115 BILIRUBIN TOTAL (BEAKER) (test kbsc=843) < mg/dL 0.1-1.2 SODIUM (BEAKER) (test wchy=542) 139 meq/L 135-148 POTASSIUM (BEAKER) (test pvot=910) 3.9 meq/L 3.6-5.5 CHLORIDE (BEAKER) (test qawd=203) 114 meq/L 98-106 CO2 (BEAKER) (test tkpo=416) 19 meq/L 20-29 BLOOD UREA NITROGEN (BEAKER) (test viyt=773) 24 mg/dL 10-26 CREATININE (BEAKER) (test hoxc=582) 2.30 mg/dL 0.50-1.20 GLUCOSE RANDOM (BEAKER) (test hqoc=040) 66 mg/dL 70-110 CALCIUM (BEAKER) (test exwl=968) 7.6 mg/dL 8.5-10.5 AST (SGOT) (BEAKER) (test prmb=504) 10 U/L 5-40 ALT (SGPT) (BEAKER) (test qzti=959) 10 U/L 5-50 EGFR (BEAKER) (test wfbz=7039) 31 mL/min/1.73 sq m ESTIMATED GFR IS NOT ACCURATE CREATININE CLEARANCE IN PREDICTING GLOMERULAR FILTRATION RATE. ESTIMATED GFR IS NOT APPLICABLE FOR DIALYSIS PATIENTS. POCT-GLUCOSE [id number] 06:19:00* Test Item Value Reference Range Comments POC-GLUCOSE METER (BEAKER) (test tqdx=7945) 48 mg/dL 70-110 TESTED AT [facility] [address] [facility] [address] [id number] 06:08:00* Test Item Value Reference Range Comments PHOSPHORUS (BEAKER) (test qhym=250) 3.4 mg/dL 2.5-4.5 CBC W/PLT COUNT & AUTO [id number] 06:05:00* Test Item Value Reference Range Comments WHITE BLOOD CELL COUNT (BEAKER) (test lnhi=705) 7.4 K/ L 4.0-10.0 RED BLOOD CELL COUNT (BEAKER) (test puls=115) 3.31 M/ L 4.00-5.00 HEMOGLOBIN (BEAKER) (test ncpt=093) 9.5 GM/DL 12.0-15.0 HEMATOCRIT (BEAKER) (test dnlp=152) 28.9 % 36.0-45.0 MEAN CORPUSCULAR VOLUME (BEAKER) (test sfsb=595) 87.3 fL 82.0-99.0 MEAN CORPUSCULAR HEMOGLOBIN (BEAKER) (test rymf=306) 28.8 pg 27.0-33.0 MEAN CORPUSCULAR HEMOGLOBIN CONC (BEAKER) (test tmbh=105) 33.0 GM/DL 32.0-36.0 RED CELL DISTRIBUTION WIDTH (BEAKER) (test fnaa=801) 13.9 % 10.3-14.2 PLATELET COUNT (BEAKER) (test oral=201) 251 K/CU MM 150-430 MEAN PLATELET VOLUME (BEAKER) (test bmwl=647) 7.5 fL 6.5-10.5 NUCLEATED RED BLOOD CELLS (BEAKER) (test zotm=226) 0 /100 WBC 0-0 NEUTROPHILS RELATIVE PERCENT (BEAKER) (test sqjg=890) 61 % LYMPHOCYTES RELATIVE PERCENT (BEAKER) (test epmm=274) 27 % MONOCYTES RELATIVE PERCENT (BEAKER) (test cfbb=006) 7 % EOSINOPHILS RELATIVE PERCENT (BEAKER) (test vhkn=292) 5 % BASOPHILS RELATIVE PERCENT (BEAKER) (test rmmq=116) 1 % NEUTROPHILS ABSOLUTE COUNT (BEAKER) (test mvep=273) 4.60 K/ L 1.80-8.00 LYMPHOCYTES ABSOLUTE COUNT (BEAKER) (test qcjb=372) 2.00 K/ L 1.48-4.50 MONOCYTES ABSOLUTE COUNT (BEAKER) (test wlcr=104) 0.50 K/ L 0.00-1.30 EOSINOPHILS ABSOLUTE COUNT (BEAKER) (test rvyo=762) 0.30 K/ L 0.00-0.50 BASOPHILS ABSOLUTE COUNT (BEAKER) (test zfab=895) 0.00 K/ L 0.00-0.20 POCT-GLUCOSE [id number] 20:58:00* Test Item Value Reference Range Comments POC-GLUCOSE METER ([facility]) (test qzgg=8685) 223 mg/dL 70-110 TESTED AT [address] [address] POCT-GLUCOSE [id number] 17:08:00* Test Item Value Reference Range Comments POC-GLUCOSE METER ([facility]) (test omlf=0551) 68 mg/dL 70-110 TESTED AT [address] [address] POCT-GLUCOSE [id number] 13:22:00* Test Item Value Reference Range Comments POC-GLUCOSE METER ([facility]) (test ctoi=3345) 235 mg/dL 70-110 TESTED AT [address] [address] POCT-GLUCOSE [id number] 12:29:00* Test Item Value Reference Range Comments POC-GLUCOSE METER ([facility]) (test kxpv=7894) 191 mg/dL 70-110 TESTED AT [address] [address] POCT-GLUCOSE [id number] 09:31:00* Test Item Value Reference Range Comments POC-GLUCOSE METER ([facility]) (test rigt=5755) 176 mg/dL 70-110 TESTED AT [address] [address] CBC W/PLT COUNT & AUTO [id number] 06:52:00* Test Item Value Reference Range Comments WHITE BLOOD CELL COUNT ([facility]) (test zhcj=991) 5.6 K/ L 4.0-10.0 RED BLOOD CELL COUNT ([facility]) (test tggq=749) 2.34 M/ L 4.00-5.00 HEMOGLOBIN (BEAKER) (test dnoy=855) 6.6 GM/DL 12.0-15.0 HEMATOCRIT (BEAKER) (test ciop=092) 20.0 % 36.0-45.0 MEAN CORPUSCULAR VOLUME (BEAKER) (test ouee=031) 85.6 fL 82.0-99.0 MEAN CORPUSCULAR HEMOGLOBIN (BEAKER) (test vcmh=720) 28.3 pg 27.0-33.0 MEAN CORPUSCULAR HEMOGLOBIN CONC (BEAKER) (test bsue=006) 33.1 GM/DL 32.0-36.0 RED CELL DISTRIBUTION WIDTH (BEAKER) (test ckru=502) 14.2 % 10.3-14.2 PLATELET COUNT (BEAKER) (test qlje=816) 225 K/CU MM 150-430 MEAN PLATELET VOLUME (BEAKER) (test vdfm=709) 7.8 fL 6.5-10.5 NUCLEATED RED BLOOD CELLS (BEAKER) (test juzd=005) 0 /100 WBC 0-0 NEUTROPHILS RELATIVE PERCENT (BEAKER) (test xoxw=265) 59 % LYMPHOCYTES RELATIVE PERCENT (BEAKER) (test sdzq=905) 30 % MONOCYTES RELATIVE PERCENT (BEAKER) (test wfcq=357) 8 % EOSINOPHILS RELATIVE PERCENT (BEAKER) (test ukmk=889) 3 % BASOPHILS RELATIVE PERCENT (BEAKER) (test nejc=602) 0 % NEUTROPHILS ABSOLUTE COUNT (BEAKER) (test wqan=391) 3.30 K/ L 1.80-8.00 LYMPHOCYTES ABSOLUTE COUNT (BEAKER) (test ysfw=380) 1.60 K/ L 1.48-4.50 MONOCYTES ABSOLUTE COUNT (BEAKER) (test jrxi=361) 0.40 K/ L 0.00-1.30 EOSINOPHILS ABSOLUTE COUNT (BEAKER) (test bsmp=410) 0.20 K/ L 0.00-0.50 BASOPHILS ABSOLUTE COUNT (BEAKER) (test dszg=915) 0.00 K/ L 0.00-0.20 T4, [id number] 06:40:00* Test Item Value Reference Range Comments FREE T4 (BEAKER) (test gpyb=117) 0.84 ng/dL 0.90-1.80 [id number] 06:39:00* Test Item Value Reference Range Comments THYROID STIMULATING HORMONE (BEAKER) (test gpts=013) 2.30 uIU/mL 0.35-5.50 COMPREHENSIVE METABOLIC [id number] 06:29:00* Test Item Value Reference Range Comments TOTAL PROTEIN (BEAKER) (test jqms=749) 4.6 gm/dL 6.0-8.5 ALBUMIN (BEAKER) (test cxiz=9191) 1.8 g/dL 3.5-5.0 ALKALINE PHOSPHATASE (BEAKER) (test saqx=993) 89 U/L 30-115 BILIRUBIN TOTAL (BEAKER) (test ilnb=042) < mg/dL 0.1-1.2 SODIUM (BEAKER) (test hzpe=579) 138 meq/L 135-148 POTASSIUM (BEAKER) (test bkrq=152) 3.9 meq/L 3.6-5.5 CHLORIDE (BEAKER) (test uaps=284) 115 meq/L 98-106 CO2 (BEAKER) (test ivah=906) 18 meq/L 20-29 BLOOD UREA NITROGEN (BEAKER) (test xwhb=157) 26 mg/dL 10-26 CREATININE (BEAKER) (test anfm=007) 2.60 mg/dL 0.50-1.20 GLUCOSE RANDOM (BEAKER) (test zyph=211) 123 mg/dL 70-110 CALCIUM (BEAKER) (test myxb=928) 7.3 mg/dL 8.5-10.5 AST (SGOT) (BEAKER) (test paql=520) 9 U/L 5-40 ALT (SGPT) (BEAKER) (test oqqn=864) 10 U/L 5-50 EGFR (BEAKER) (test seyk=6079) 27 mL/min/1.73 sq m ESTIMATED GFR IS NOT ACCURATE CREATININE CLEARANCE IN PREDICTING GLOMERULAR FILTRATION RATE. ESTIMATED GFR IS NOT APPLICABLE FOR DIALYSIS PATIENTS. Fasting sampleLIPID [id number] 06:25:00* Test Item Value Reference Range Comments TRIGLYCERIDES (BEAKER) (test ogaa=015) 179 mg/dL CHOLESTEROL (BEAKER) (test hokn=656) 274 mg/dL HDL CHOLESTEROL (BEAKER) (test bihw=489) 31 mg/dL LDL CHOLESTEROL CALCULATED (BEAKER) (test pmel=629) 207 mg/dL Triglyceride Reference Range: Low Risk <150 Borderline 150-199 High Risk 200-499 Very High Risk >=500Cholesterol Reference Range: Low Risk <200 Borderline 200-239 High Risk >240HDL Cholesterol Reference Range: Low Risk >=60 High Risk <40LDL Cholesterol Reference Range: Optimal <100 Near Optimal 100-129 Borderline 130-159 High 160-189 Very High >=190 Fasting sampleFasting sampleFasting sampleBASIC METABOLIC [id number] 06:24:00* Test Item Value Reference Range Comments SODIUM (BEAKER) (test yybx=213) 138 meq/L 135-148 POTASSIUM (BEAKER) (test ubqh=017) 3.9 meq/L 3.6-5.5 CHLORIDE (BEAKER) (test ywkj=373) 115 meq/L 98-106 CO2 (BEAKER) (test rpgf=331) 18 meq/L 20-29 BLOOD UREA NITROGEN (BEAKER) (test pbxz=146) 26 mg/dL 10-26 CREATININE (BEAKER) (test fqaa=801) 2.60 mg/dL 0.50-1.20 GLUCOSE RANDOM (BEAKER) (test ncqj=456) 123 mg/dL 70-110 CALCIUM (BEAKER) (test dvrd=907) 7.3 mg/dL 8.5-10.5 EGFR (BEAKER) (test dera=0096) 27 mL/min/1.73 sq m ESTIMATED GFR IS NOT ACCURATE CREATININE CLEARANCE IN PREDICTING GLOMERULAR FILTRATION RATE. ESTIMATED GFR IS NOT APPLICABLE FOR DIALYSIS PATIENTS. [id number] 06:21:00* Test Item Value Reference Range Comments PHOSPHORUS (BEAKER) (test avaw=307) 3.9 mg/dL 2.5-4.5 Fasting sampleHEMOGLOBIN [id number] 22:51:00* Test Item Value Reference Range Comments HEMOGLOBIN A1C (BEAKER) (test lhfz=031) 8.2 % 4.3-6.1 POCT-GLUCOSE [id number] 21:53:00* Test Item Value Reference Range Comments POC-GLUCOSE METER (BEAKER) (test ejxz=7203) 298 mg/dL 70-110 TESTED AT [facility] [address] [place] [address] POCT-GLUCOSE [id number] 17:22:00* Test Item Value Reference Range Comments POC-GLUCOSE METER (BEAKER) (test ymoz=3564) 227 mg/dL 70-110 TESTED AT [facility] [address] [facility] [address] POCT-GLUCOSE [id number] 13:51:00* Test Item Value Reference Range Comments POC-GLUCOSE METER (BEAKER) (test urln=6407) 383 mg/dL 70-110 TESTED AT [facility] [address] [facility] [address] POCT-GLUCOSE [id number] 12:38:00* Test Item Value Reference Range Comments POC-GLUCOSE METER (BEAKER) (test bmol=2202) 414 mg/dL 70-110 Notified RN or MD Patient refused repeat test/TESTED AT [place] [address] POCT-GLUCOSE [id number] 10:33:00* Test Item Value Reference Range Comments POC-GLUCOSE METER (BEAKER) (test hiam=1919) 330 mg/dL 70-110 TESTED AT [facility] [address] [facility] [address] POCT-GLUCOSE [id number] 08:23:00* Test Item Value Reference Range Comments POC-GLUCOSE METER (BEAKER) (test urkn=1463) 240 mg/dL 70-110 TESTED AT [facility] [address] [facility] [address] BLOOD GAS, [id number] 03:43:00* Test Item Value Reference Range Comments PH ARTERIAL (BEAKER) (test xlpu=390) 7.30 7.35-7.45 PCO2 ARTERIAL (BEAKER) (test odst=858) 25 mmHg 35-45 PO2 ARTERIAL (BEAKER) (test nnrm=953) 123 mmHg 80-90 O2 SATURATION ARTERIAL (BEAKER) (test hpdy=311) 98.2 % 96.0-97.0 HCO3 ARTERIAL (BEAKER) (test htux=139) 12 mmol/L 21-29 BASE EXCESS ARTERIAL (BEAKER) (test fhpe=859) -12.8 mmol/L -2.0-3.0 PATIENT TEMPERATURE (BEAKER) (test sjyi=1783) 37.0 C FIO2 (BEAKER) (test iucv=2016) 21.0 % POCT-GLUCOSE [id number] 03:31:00* Test Item Value Reference Range Comments POC-GLUCOSE METER (BEAKER) (test gqqq=2611) 257 mg/dL 70-110 TESTED AT [facility] [address] [facility] [address] POCT-GLUCOSE [id number] 01:44:00* Test Item Value Reference Range Comments POC-GLUCOSE METER (BEAKER) (test xswk=0061) 264 mg/dL 70-110 TESTED AT [facility] [address] [facility] [address] HCG, QUANTITATIVE, [id number] 00:51:00* Test Item Value Reference Range Comments GONADOTROPIN, CHORIONIC (HCG) QUANT (BEAKER) (test rmev=288) 5083 mIU/mL 0-10 Non- Females: <10 mIU/mL Females: Gestation Age Reference Range(mIU/mL) 0.2-1 Week 5-50 1-2 Weeks 50-500 2-3 Weeks 100-5,000 3-4 Weeks 500-10,000 4-5 Weeks 1,000-50,000 5-6 Weeks 10,000-100,000 6-8 Weeks 15,000-200,000 2-3 Months 10,000-100,000 PH, [id number] 00:20:00* Test Item Value Reference Range Comments PH VENOUS (BEAKER) (test csuy=552) 7.24 7.32-7.42 COMPREHENSIVE METABOLIC [id number] 23:55:00* Test Item Value Reference Range Comments TOTAL PROTEIN (BEAKER) (test nbmo=654) 5.7 gm/dL 6.0-8.5 ALBUMIN (BEAKER) (test gind=8343) 2.3 g/dL 3.5-5.0 ALKALINE PHOSPHATASE (BEAKER) (test ebfe=716) 129 U/L 30-115 BILIRUBIN TOTAL (BEAKER) (test uqdl=344) < mg/dL 0.1-1.2 SODIUM (BEAKER) (test yueb=370) 128 meq/L 135-148 POTASSIUM (BEAKER) (test sehm=300) 4.8 meq/L 3.6-5.5 CHLORIDE (BEAKER) (test ffeq=203) 104 meq/L 98-106 CO2 (BEAKER) (test ykpr=201) 13 meq/L 20-29 BLOOD UREA NITROGEN (BEAKER) (test ybky=778) 37 mg/dL 10-26 CREATININE (BEAKER) (test ofay=174) 3.40 mg/dL 0.50-1.20 GLUCOSE RANDOM (BEAKER) (test eahz=636) 681 mg/dL 70-110 CALCIUM (BEAKER) (test habe=055) 7.6 mg/dL 8.5-10.5 AST (SGOT) (BEAKER) (test yyxa=049) 8 U/L 5-40 ALT (SGPT) (BEAKER) (test ecew=519) 12 U/L 5-50 EGFR (BEAKER) (test ayyw=7061) 20 mL/min/1.73 sq m ESTIMATED GFR IS NOT ACCURATE CREATININE CLEARANCE IN PREDICTING GLOMERULAR FILTRATION RATE. ESTIMATED GFR IS NOT APPLICABLE FOR DIALYSIS PATIENTS. [id number] 23:54:00* Test Item Value Reference Range Comments LIPASE (BEAKER) (test nxkp=647) 111 U/L 6-51 URINALYSIS W/ REFLEX URINE [id number] 23:37:00* Test Item Value Reference Range Comments COLOR (BEAKER) (test fbke=482) Yellow CLARITY (BEAKER) (test eqmv=441) Clear SPECIFIC GRAVITY UA (BEAKER) (test gonx=310) 1.015 1.001-1.035 PH UA (BEAKER) (test iwvw=880) 7.0 5.0-8.0 PROTEIN UA (BEAKER) (test ahhj=833) 100 mg/dL Negative GLUCOSE UA (BEAKER) (test xuyk=385) >=1000 mg/dL Negative KETONES UA (BEAKER) (test dhhj=817) Negative Negative BILIRUBIN UA (BEAKER) (test xhun=647) Negative Negative BLOOD UA (BEAKER) (test bakg=098) Small Negative NITRITE UA (BEAKER) (test rtsy=287) Negative Negative LEUKOCYTE ESTERASE UA (BEAKER) (test gcci=517) Negative Negative UROBILINOGEN UA (BEAKER) (test oqbl=375) 0.2 mg/dL 0.2-1.0 BACTERIA (BEAKER) (test oowf=718) Occasional YEAST (BEAKER) (test ftcq=3035) Occasional RBC UA-MANUAL (BEAKER) (test kakx=3929) <5 /HPF WBC UA-MANUAL (BEAKER) (test ztcn=4852) <5 /HPF SQUAMOUS EPITHELIAL MANUAL (BEAKER) (test suqu=2080) <5 /HPF SOURCE(BEAKER) (test qhry=4987) SCREEN, [id number] 23:32:00* Test Item Value Reference Range Comments TEST URINE (BEAKER) (test feeb=774) Positive KETONE, [id number] 23:32:00* Test Item Value Reference Range Comments KETONES, BLOOD (BEAKER) (test bjvb=9537) 0.1 mmol/L <0.4 CBC W/PLT COUNT & AUTO [id number] 23:31:00* Test Item Value Reference Range Comments WHITE BLOOD CELL COUNT (BEAKER) (test lhxr=029) 7.1 K/ L 4.0-10.0 RED BLOOD CELL COUNT (BEAKER) (test tjvy=188) 3.05 M/ L 4.00-5.00 HEMOGLOBIN (BEAKER) (test lggv=590) 8.6 GM/DL 12.0-15.0 HEMATOCRIT (BEAKER) (test ypyd=183) 26.3 % 36.0-45.0 MEAN CORPUSCULAR VOLUME (BEAKER) (test wgwl=316) 86.3 fL 82.0-99.0 MEAN CORPUSCULAR HEMOGLOBIN (BEAKER) (test iwmp=266) 28.1 pg 27.0-33.0 MEAN CORPUSCULAR HEMOGLOBIN CONC (BEAKER) (test ncrh=307) 32.6 GM/DL 32.0-36.0 RED CELL DISTRIBUTION WIDTH (BEAKER) (test bgsu=433) 12.9 % 10.3-14.2 PLATELET COUNT (BEAKER) (test binv=491) 283 K/CU MM 150-430 MEAN PLATELET VOLUME (BEAKER) (test aaal=779) 8.4 fL 6.5-10.5 NEUTROPHILS RELATIVE PERCENT (BEAKER) (test jluh=047) 63 % LYMPHOCYTES RELATIVE PERCENT (BEAKER) (test ecvd=756) 28 % MONOCYTES RELATIVE PERCENT (BEAKER) (test hkss=387) 5 % EOSINOPHILS RELATIVE PERCENT (BEAKER) (test eegl=754) 3 % BASOPHILS RELATIVE PERCENT (BEAKER) (test raiy=279) 1 % NEUTROPHILS ABSOLUTE COUNT (BEAKER) (test tzbv=214) 4.40 K/ L 1.80-8.00 LYMPHOCYTES ABSOLUTE COUNT (BEAKER) (test ihqg=335) 2.00 K/ L 1.48-4.50 MONOCYTES ABSOLUTE COUNT (BEAKER) (test krff=399) 0.40 K/ L 0.00-1.30 EOSINOPHILS ABSOLUTE COUNT (BEAKER) (test gkqw=316) 0.20 K/ L 0.00-0.50 BASOPHILS ABSOLUTE COUNT (BEAKER) (test blwq=717) 0.10 K/ L 0.00-0.20 POCT-GLUCOSE [id number] 12:18:00* Test Item Value Reference Range Comments POC-GLUCOSE METER (BEAKER) (test mjxb=6920) 218 mg/dL 70-110 TESTED AT [address] [address] URINE [id number] 11:21:00* Test Item Value Reference Range Comments CULTURE (BEAKER) (test qenb=4933) >100,000 col/mL skin gerardo BLOOD [id number] 08:32:00* Test Item Value Reference Range Comments CULTURE (BEAKER) (test toez=1736) From Aerobic And Anaerobic Bottles Coagulase negative Staphylococcus GRAM STAIN RESULT (BEAKER) (test bfco=3126) From aerobic bottle only: gram positive cocci in chains, pairs and clusters GRAM STAIN RESULT (BEAKER) (test cocu=82016) From anaerobic bottle only: gram positive cocci in pairs and clusters POCT-GLUCOSE [id number] 07:53:00* Test Item Value Reference Range Comments POC-GLUCOSE METER (BEAKER) (test cfia=1420) 90 mg/dL 70-110 TESTED AT [address] [address] PROTEIN, RANDOM [id number] 04:47:00* Test Item Value Reference Range Comments PROTEIN, URINE (BEAKER) (test fcop=0758) 250 mg/dL 0-14 CALCIUM, [id number] 04:13:00* Test Item Value Reference Range Comments CALCIUM IONIZED (BEAKER) (test yhtg=790) 1.06 mmol/L 1.12-1.27 PH, BLOOD (BEAKER) (test yrqx=0308) 7.35 CREATININE, RANDOM [id number] 04:12:00* Test Item Value Reference Range Comments CREATININE URINE (BEAKER) (test aqhl=382) 29.7 mg/dL Reference Range: No NormalsBASIC METABOLIC [id number] 04:11:00* Test Item Value Reference Range Comments SODIUM (BEAKER) (test gant=461) 139 meq/L 136-145 POTASSIUM (BEAKER) (test truo=042) 3.8 meq/L 3.5-5.1 CHLORIDE (BEAKER) (test zpsu=402) 116 meq/L 98-107 CO2 (BEAKER) (test ojlb=248) 19 meq/L 22-29 BLOOD UREA NITROGEN (BEAKER) (test crog=131) 17 mg/dL 7-21 CREATININE (BEAKER) (test givf=060) 2.13 mg/dL 0.57-1.25 GLUCOSE RANDOM (BEAKER) (test fofp=783) 75 mg/dL 70-105 CALCIUM (BEAKER) (test rgqg=805) 7.6 mg/dL 8.4-10.2 EGFR (BEAKER) (test dtfg=1868) 34 mL/min/1.73 sq m ESTIMATED GFR IS NOT ACCURATE CREATININE CLEARANCE IN PREDICTING GLOMERULAR FILTRATION RATE. ESTIMATED GFR IS NOT APPLICABLE FOR DIALYSIS PATIENTS. URINALYSIS W/ [id number] 04:06:00* Test Item Value Reference Range Comments COLOR (BEAKER) (test chjs=354) Light Yellow CLARITY (BEAKER) (test uvhn=702) Clear SPECIFIC GRAVITY UA (BEAKER) (test zrgo=832) 1.004 1.001-1.035 PH UA (BEAKER) (test cswu=798) 7.0 5.0-8.0 PROTEIN UA (BEAKER) (test cpxt=247) 300 mg/dL Negative GLUCOSE UA (BEAKER) (test dtwd=031) 200 mg/dL Negative KETONES UA (BEAKER) (test sxtu=438) Negative Negative BILIRUBIN UA (BEAKER) (test mrtc=171) Negative Negative BLOOD UA (BEAKER) (test gnyn=860) Large Negative NITRITE UA (BEAKER) (test murp=615) Negative Negative LEUKOCYTE ESTERASE UA (BEAKER) (test fced=285) Negative Negative UROBILINOGEN UA (BEAKER) (test iilg=053) 0.2 mg/dL 0.2-1.0 RBC UA (BEAKER) (test ksgb=300) 155 /HPF WBC UA (BEAKER) (test ymux=731) 7 /HPF SQUAMOUS EPITHELIAL (BEAKER) (test zfma=859) 1 /HPF AMORPHOUS CRYSTALS (BEAKER) (test uvbh=3765) Rare SOURCE(BEAKER) (test fjbz=4953) Urine, Voided [id number] 04:04:00* Test Item Value Reference Range Comments PHOSPHORUS (BEAKER) (test mlbv=566) 3.8 mg/dL 2.3-4.7 [id number] 04:04:00* Test Item Value Reference Range Comments MAGNESIUM (BEAKER) (test hijs=000) 1.6 mg/dL 1.6-2.6 CBC W/PLT COUNT & AUTO [id number] 03:53:00* Test Item Value Reference Range Comments WHITE BLOOD CELL COUNT (BEAKER) (test zyhc=745) 6.8 K/ L 4.0-10.0 RED BLOOD CELL COUNT (BEAKER) (test draj=770) 2.88 M/ L 4.00-5.00 HEMOGLOBIN (BEAKER) (test fvjl=905) 8.9 GM/DL 12.0-15.0 HEMATOCRIT (BEAKER) (test kciv=739) 25.9 % 36.0-45.0 MEAN CORPUSCULAR VOLUME (BEAKER) (test cfnw=911) 89.9 fL 82.0-99.0 MEAN CORPUSCULAR HEMOGLOBIN (BEAKER) (test pqxz=331) 30.9 pg 27.0-33.0 MEAN CORPUSCULAR HEMOGLOBIN CONC (BEAKER) (test yvte=261) 34.4 GM/DL 32.0-36.0 RED CELL DISTRIBUTION WIDTH (BEAKER) (test fjkh=622) 12.9 % 10.3-14.2 PLATELET COUNT (BEAKER) (test pbiz=646) 214 K/CU MM 150-430 MEAN PLATELET VOLUME (BEAKER) (test hlgu=142) 6.5 fL 6.5-10.5 NUCLEATED RED BLOOD CELLS (BEAKER) (test ayvk=310) 0 /100 WBC 0-0 NEUTROPHILS RELATIVE PERCENT (BEAKER) (test stxi=194) 51 % LYMPHOCYTES RELATIVE PERCENT (BEAKER) (test oqxy=910) 38 % MONOCYTES RELATIVE PERCENT (BEAKER) (test lcqw=899) 7 % EOSINOPHILS RELATIVE PERCENT (BEAKER) (test cuxv=413) 3 % BASOPHILS RELATIVE PERCENT (BEAKER) (test otmm=521) 1 % NEUTROPHILS ABSOLUTE COUNT (BEAKER) (test lpwu=121) 3.51 K/ L 1.80-8.00 LYMPHOCYTES ABSOLUTE COUNT (BEAKER) (test dkua=966) 2.62 K/ L 1.48-4.50 MONOCYTES ABSOLUTE COUNT (BEAKER) (test zpuk=693) 0.45 K/ L 0.00-1.30 EOSINOPHILS ABSOLUTE COUNT (BEAKER) (test mpbz=012) 0.20 K/ L 0.00-0.50 BASOPHILS ABSOLUTE COUNT (BEAKER) (test bred=941) 0.04 K/ L 0.00-0.20 0.00POCT-GLUCOSE [id number] 21:26:00* Test Item Value Reference Range Comments POC-GLUCOSE METER (BEAKER) (test zumm=1750) 191 mg/dL 70-110 TESTED AT [address] [address] POCT-GLUCOSE [id number] 16:57:00* Test Item Value Reference Range Comments POC-GLUCOSE METER (BEAKER) (test hiqa=4146) 67 mg/dL 70-110 Notified ALICJA BECKFORD/TESTED AT [address] [address] POCT-GLUCOSE [id number] 12:57:00* Test Item Value Reference Range Comments POC-GLUCOSE METER (BEAKER) (test dowg=1688) 273 mg/dL 70-110 TESTED AT [address] [address] POCT-GLUCOSE [id number] 08:00:00* Test Item Value Reference Range Comments POC-GLUCOSE METER (AKER) (test dnzz=4147) 208 mg/dL 70-110 TESTED AT [address] [address] CBC W/PLT COUNT & AUTO [id number] 07:49:00* Test Item Value Reference Range Comments WHITE BLOOD CELL COUNT (BEAKER) (test txwp=136) 6.9 K/ L 4.0-10.0 RED BLOOD CELL COUNT (BEAKER) (test mqkm=678) 2.85 M/ L 4.00-5.00 HEMOGLOBIN (BEAKER) (test aqxp=006) 8.7 GM/DL 12.0-15.0 HEMATOCRIT (BEAKER) (test qpdo=465) 25.7 % 36.0-45.0 MEAN CORPUSCULAR VOLUME (BEAKER) (test ydyb=535) 90.3 fL 82.0-99.0 MEAN CORPUSCULAR HEMOGLOBIN (BEAKER) (test ehvh=192) 30.6 pg 27.0-33.0 MEAN CORPUSCULAR HEMOGLOBIN CONC (BEAKER) (test onox=762) 33.9 GM/DL 32.0-36.0 RED CELL DISTRIBUTION WIDTH (BEAKER) (test mynh=625) 13.2 % 10.3-14.2 PLATELET COUNT (BEAKER) (test vmls=747) 253 K/CU MM 150-430 MEAN PLATELET VOLUME (BEAKER) (test pzki=905) 7.2 fL 6.5-10.5 NUCLEATED RED BLOOD CELLS (BEAKER) (test chrs=643) 0 /100 WBC 0-0 NEUTROPHILS RELATIVE PERCENT (BEAKER) (test ittb=999) 51 % LYMPHOCYTES RELATIVE PERCENT (BEAKER) (test qana=699) 42 % MONOCYTES RELATIVE PERCENT (BEAKER) (test wext=110) 6 % EOSINOPHILS RELATIVE PERCENT (BEAKER) (test kbdf=899) 1 % BASOPHILS RELATIVE PERCENT (BEAKER) (test jhwu=370) 1 % NEUTROPHILS ABSOLUTE COUNT (BEAKER) (test zlrv=252) 3.46 K/ L 1.80-8.00 LYMPHOCYTES ABSOLUTE COUNT (BEAKER) (test vbhi=099) 2.90 K/ L 1.48-4.50 MONOCYTES ABSOLUTE COUNT (BEAKER) (test updr=645) 0.38 K/ L 0.00-1.30 EOSINOPHILS ABSOLUTE COUNT (BEAKER) (test wndl=263) 0.07 K/ L 0.00-0.50 BASOPHILS ABSOLUTE COUNT (BEAKER) (test zqmg=956) 0.05 K/ L 0.00-0.20 0.00BASI METABOLIC [id number] 06:34:00* Test Item Value Reference Range Comments SODIUM (BEAKER) (test htcs=584) 140 meq/L 136-145 POTASSIUM (BEAKER) (test wpvv=797) 3.5 meq/L 3.5-5.1 CHLORIDE (BEAKER) (test qnkz=296) 116 meq/L 98-107 CO2 (BEAKER) (test uirp=590) 18 meq/L 22-29 BLOOD UREA NITROGEN (BEAKER) (test uhms=895) 16 mg/dL 7-21 CREATININE (BEAKER) (test soyq=845) 2.31 mg/dL 0.57-1.25 GLUCOSE RANDOM (BEAKER) (test kyow=644) 136 mg/dL 70-105 CALCIUM (BEAKER) (test sdxl=488) 7.3 mg/dL 8.4-10.2 EGFR (BEAKER) (test grzo=3233) 31 mL/min/1.73 sq m ESTIMATED GFR IS NOT ACCURATE CREATININE CLEARANCE IN PREDICTING GLOMERULAR FILTRATION RATE. ESTIMATED GFR IS NOT APPLICABLE FOR DIALYSIS PATIENTS. [id number] 06:29:00* Test Item Value Reference Range Comments PHOSPHORUS (BEAKER) (test pxpa=437) 4.0 mg/dL 2.3-4.7 [id number] 06:29:00* Test Item Value Reference Range Comments MAGNESIUM (BEAKER) (test fpei=646) 1.6 mg/dL 1.6-2.6 CALCIUM, [id number] 06:07:00* Test Item Value Reference Range Comments CALCIUM IONIZED (BEAKER) (test lovf=160) 1.07 mmol/L 1.12-1.27 PH, BLOOD (BEAKER) (test vofl=3945) 7.34 POCT-GLUCOSE [id number] 21:59:00* Test Item Value Reference Range Comments POC-GLUCOSE METER (BEAKER) (test uadz=3864) 97 mg/dL 70-110 TESTED AT [facility] [address] [address] POCT-GLUCOSE [id number] 16:32:00* Test Item Value Reference Range Comments POC-GLUCOSE METER (BEAKER) (test ktdv=0296) 131 mg/dL 70-110 TESTED AT [facility] [address] [address] URINE [id number] 11:56:00* Test Item Value Reference Range Comments CULTURE (BEAKER) (test rwoy=1839) 20-29,000 col/mL Beta-hemolytic streptococcus group B, by serological groupingIf this patient is , please refer to ACOG guidelines for appropriate screening and management of colonized women. <10,000 col/mL skin floraPOCT-GLUCOSE [id number] 10:34:00* Test Item Value Reference Range Comments POC-GLUCOSE METER (BEAKER) (test txtg=0919) 108 mg/dL 70-110 TESTED AT [facility] [address] [address] POCT-GLUCOSE [id number] 08:21:00* Test Item Value Reference Range Comments POC-GLUCOSE METER (BEAKER) (test ggob=8338) 81 mg/dL 70-110 TESTED AT [facility] [address] [facility] [address] BASIC METABOLIC [id number] 04:49:00* Test Item Value Reference Range Comments SODIUM (BEAKER) (test beji=651) 141 meq/L 136-145 POTASSIUM (BEAKER) (test phnh=603) 4.1 meq/L 3.5-5.1 CHLORIDE (BEAKER) (test wuot=327) 117 meq/L 98-107 CO2 (BEAKER) (test zgez=677) 17 meq/L 22-29 BLOOD UREA NITROGEN (BEAKER) (test ywbd=244) 24 mg/dL 7-21 CREATININE (BEAKER) (test bzng=923) 2.68 mg/dL 0.57-1.25 GLUCOSE RANDOM (BEAKER) (test pftt=798) 104 mg/dL 70-105 CALCIUM (BEAKER) (test yovz=954) 7.7 mg/dL 8.4-10.2 EGFR (BEAKER) (test fetk=5507) 26 mL/min/1.73 sq m ESTIMATED GFR IS NOT ACCURATE CREATININE CLEARANCE IN PREDICTING GLOMERULAR FILTRATION RATE. ESTIMATED GFR IS NOT APPLICABLE FOR DIALYSIS PATIENTS. [id number] 04:46:00* Test Item Value Reference Range Comments MAGNESIUM (BEAKER) (test vjfi=974) 2.1 mg/dL 1.6-2.6 CBC W/PLT COUNT & AUTO [id number] 04:42:00* Test Item Value Reference Range Comments WHITE BLOOD CELL COUNT (BEAKER) (test auup=139) 9.6 K/ L 4.0-10.0 RED BLOOD CELL COUNT (BEAKER) (test namk=292) 3.10 M/ L 4.00-5.00 HEMOGLOBIN (BEAKER) (test zokl=530) 9.2 GM/DL 12.0-15.0 HEMATOCRIT (BEAKER) (test huzi=466) 27.9 % 36.0-45.0 MEAN CORPUSCULAR VOLUME (BEAKER) (test euhq=882) 90.1 fL 82.0-99.0 MEAN CORPUSCULAR HEMOGLOBIN (BEAKER) (test uugf=388) 29.7 pg 27.0-33.0 MEAN CORPUSCULAR HEMOGLOBIN CONC (BEAKER) (test ekwk=040) 32.9 GM/DL 32.0-36.0 RED CELL DISTRIBUTION WIDTH (BEAKER) (test memu=946) 13.5 % 10.3-14.2 PLATELET COUNT (BEAKER) (test mbyh=117) 275 K/CU MM 150-430 MEAN PLATELET VOLUME (BEAKER) (test uoyj=465) 6.9 fL 6.5-10.5 NUCLEATED RED BLOOD CELLS (BEAKER) (test iqss=688) 0 /100 WBC 0-0 NEUTROPHILS RELATIVE PERCENT (BEAKER) (test roqy=913) 62 % LYMPHOCYTES RELATIVE PERCENT (BEAKER) (test iawv=150) 31 % MONOCYTES RELATIVE PERCENT (BEAKER) (test xnbc=780) 6 % EOSINOPHILS RELATIVE PERCENT (BEAKER) (test ulyp=291) 1 % BASOPHILS RELATIVE PERCENT (BEAKER) (test poyd=768) 0 % NEUTROPHILS ABSOLUTE COUNT (BEAKER) (test uvck=892) 5.93 K/ L 1.80-8.00 LYMPHOCYTES ABSOLUTE COUNT (BEAKER) (test zhxe=319) 2.93 K/ L 1.48-4.50 MONOCYTES ABSOLUTE COUNT (BEAKER) (test jsid=448) 0.54 K/ L 0.00-1.30 EOSINOPHILS ABSOLUTE COUNT (BEAKER) (test ykdk=843) 0.12 K/ L 0.00-0.50 BASOPHILS ABSOLUTE COUNT (BEAKER) (test lxfn=999) 0.03 K/ L 0.00-0.20 0.00POCT-GLUCOSE [id number] 21:08:00* Test Item Value Reference Range Comments POC-GLUCOSE METER (BEAKER) (test czpx=7372) 178 mg/dL 70-110 TESTED AT [facility] [address] [address] POCT-GLUCOSE [id number] 17:21:00* Test Item Value Reference Range Comments POC-GLUCOSE METER (BEAKER) (test fvsc=2066) 101 mg/dL 70-110 TESTED AT [facility] [address] [address] US TRANSVAGINAL [facility] [address] [address] Patient Name: DEMETRI CROSS MR #: [id number] : 1990 Age/Sex: 27/F Req #: [id number] Adm Physician: Ordered by: MARAL MURO MD Report #: [id number] Location: ER Room/Bed: Procedure: [id number] US/US TRANSVAGINAL Exam Da te: Exam Time: [...] COPY TO: MARAL MURO MD CT ABDOMEN/PELVIS WO [place] [address] Patient Name: DEMETRI CROSS MR #: [id number] : 1990 Age/Sex: 27/F Req #: [id number] Adm Physician: Ordered by: MARAL MURO MD Report #: [id number] Location: ER Room/Bed: Procedure: [id number] CT/CT ABDOMEN/PELVIS WO Ex am Date: Exam [...] MURO MD ABDOMEN ACUTE SERIES W/PA CXR [place] [address] Patient Name: DEMETRI CROSS MR #: [id number] : 1990 Age/Sex: 27/F Req #: [id number] Adm Physician: Ordered by: MARAL MURO MD Report #: [id number] Location: ER Room/Bed: Procedure: [id number] DX/ABDOMEN ACUTE SERIES W/P A CXR Exam Date: 12/18/17 Exam Time: 2139 REPO RT STATUS: Signed ABDOMEN ACUTE SERIES W/PA CXR Clinical history: S ESR D ON HD N/V/HTN S [id number] S 2139 Technique: AP supine and upright [...] TO: MARAL MURO MD CHEST SINGLE (PORTABLE) [place] [address] Patient Name: DEMETRI CROSS MR #: [id number] : 1990 Age/Sex: 27/F Req #: [id number] Adm Physician: Ordered by: SCOTT JEROME NREMT Report #: [id number] Location: ER Room/Bed: Procedure: [id number] DX/CHEST SINGLE (PORTABL E) Exam Date: 11/02/17 [...] MASOUD on 11/02/172120 COPY TO: SCOTT JEROME NP CT ABDOMEN/PELVIS WO [place] [address] Patient Name: DEMETRI CROSS MR #: [id number] : 1990 Age/Sex: 27/F Req #: [id number] Adm Physician: JESSI WESLEY MD Ordered by: RJ BECKFORD, SELINA BECKFORD Report #: [id number] Location: [facility] Room/Bed: [place] [address] Procedure: [id number] CT/CT ABDOMEN/PELVIS WO Exam Date: 09/19/17 Exam [...] 09/19/171718 COPY TO: SELINA DE LA ROSA [facility] ([facility]) [place] [address] Patient Name: DEMETRI CROSS MR #: [id number] : 1990 Age/Sex: 26/F Req #: [id number] Adm Physician: Ordered by: FEI COLLINS MD Report #: [id number] Location: ER Room/Bed: Procedure: [id number] DX/CHEST SINGLE (PORTABLE ) Exam Date: 08/01/17 [...] COPY TO: FEI COLLINS CT ABDOMEN/PELVIS WO [place] [address] Patient Name: DEMETRI CROSS MR #: [id number] : 1990 Age/Sex: 26/F Req #: [id number] Adm Physician: Ordered by: SCOTT JEROME NREMT Report #: [id number] Location: ER Room/Bed: Procedure: [id number] CT/CT ABDOMEN/PELVIS WO Exam Date: 07/15/17 Exam [...] GOMEZ MD 1502 COPY TO: BOWEN JEROME NREMT CHEST SINGLE (PORTABLE) [place] [address] Patient Name: DEMETRI CROSS MR #: [id number] : 1990 Age/Sex: 26/F Req #: [id number] Adm Physician: COOKIE GUTHRIE MD Ordered by: TANIA SANTIZO MD Report #: [id number] Location: [facility] Room/Bed: [place] [address] Procedure: 6-0011 DX/CHEST SINGLE (PORTABLE) Exam Date: Exam T chun: REPORT STATUS: Signed PROCEDURE: CHEST SINGLE (PORTABLE) TECH NIQUE: Portable AP chest INDICATION: Diabetic; weakness and vomiting COM PARISON: [facility], DX, CHEST 2 VIEWS, 04/06/2016, 14:37. FINDINGS: [...] at 8:37 Dictated By: ADRI CRYSTAL MD 08 Transcrib ed By: RAYNE on 04/23/17 08 COPY TO: TANIA SANTIZO MD CT ABDOMEN/PELVIS W [place] [address] Patient Name: DEMETRI CROSS MR #: [id number] : 1990 Age/Sex: 26/F Req #: [id number] Adm Physician: Ordered by: FEI LANDRY MD Report #: [id number] Location: ER Room/Bed: Procedure: [id number] CT/CT ABDOMEN/PELVIS Pratik pandya Date: 04/22/17 Exam [...] enlarged nodes. VESSELS: Unremarkable. GI TRACT: No sonido wel dilation or obstruction. Large amount of [...] at 16:21 Dictated By: RAIMUNDO HYLTON MD 1621 Transcribe d By: RAYNE on 04/22/171620 COPY TO: FEI LANDRY MD
[2018-06-19] MEDS ORDERED: PROMETHAZINE HCL (IM) 25 MG/ML VIAL IM NR (15:00)
[2018-06-19] MEDS ORDERED: SODIUM CHLORIDE 0.9% 1000ML 1,000 ML IV SCH (15:15)
[2018-06-19] MEDS ORDERED: HALOPERIDOL LACTATE 5 MG/ML VIAL IM NR (15:15)
[2018-06-19 16:09] LABS: BASOPHILS # (AUTO) 0.1 (0.0-0.1); BASOPHILS % 0.8 % (0.0-1.0); EOSINOPHILS # (AUTO) 0.1 (0.0-0.4); HEMATOCRIT 37.7 % (34.2-44.1); HEMOGLOBIN 12.2 g/dL (12.0-16.0); LYMPHOCYTES % 16.3 % (18.0-39.1); MEAN CORPUSCULAR HEMOGLOBIN 28.9 pg (28-32); MEAN CORPUSCULAR HGB CONC 32.4 g/dL (31-35); MEAN CORPUSCULAR VOLUME 89.3 fL (81-99); MONOCYTES # (AUTO) 0.7 (0.2-0.8); MONOCYTES % 11.7 % (4.4-11.3); NEUTROPHILS # (AUTO) 4.1 (2.1-6.9); NEUTROPHILS % 69.7 % (38.7-80.0); PLATELET COUNT 234 x10e3/uL (140-360); RED BLOOD COUNT 4.22 x10e6/uL (3.6-5.1); RED CELL DISTRIBUTION WIDTH 15.8 % (11.7-14.4)
[2018-06-19 16:23] LABS: ALANINE AMINOTRANSFERASE 7 IU/L (0-55); ALBUMIN 4.2 g/dL (3.5-5.0); ALBUMIN/GLOBULIN RATIO 0.8 (0.8-2.0); ALKALINE PHOSPHATASE 72 IU/L (40-150); BLOOD UREA NITROGEN 33 mg/dL (7-26); BUN/CREATININE RATIO 7 (6-25); CALCIUM 11.2 mg/dL (8.4-10.2); CARBON DIOXIDE 26 mmol/L (22-29); CHLORIDE 91 mmol/L (98-107); CREATININE, SERUM 4.87 mg/dL (0.57-1.11); EST GLOMERULAR FILTRATION RATE 13 ML/MIN (60-); GLUCOSE 165 mg/dL (74-118); SODIUM 136 mmol/L (136-145)
[2018-06-19 16:33] LABS: HCG,QUANTITATIVE < 1.20 mIU/mL (0-10)
[2018-06-19] MEDS ORDERED: HYDRALAZINE HCL 20 MG/ML VIAL IV STA (16:35)
[2018-06-19] MEDS ORDERED: HEPARIN SOD (PORCINE) 1000 UNIT/ML SDV ONE (19:00)
[2018-06-19 20:04] VITALS: BP 152/97
== END 2018-06-19 20:12 ==
LOC: ER 14:44
DX: R11.2 Nausea with vomiting, unspecified (principal); K29.50 Unspecified chronic gastritis without bleeding; I12.0 Hypertensive chronic kidney disease with stage 5 chronic kidney disease or end stage renal disease; E11.22 Type 2 diabetes mellitus with diabetic chronic kidney disease; Z99.2 Dependence on renal dialysis; G61.0 Guillain-Barre syndrome
CPT/HCPCS: 36415; 80053; 84702; 85025; 99283; J0360; J1642; J1644; J2550; J7030

== ENCOUNTER 2018-10-15 21:15 | Emergency (ER) | payer MEDICARE ==
[~2018-10-15] VITALS: Ht 157.5 cm; Wt 49.0 kg
[2018-10-15] MEDS ORDERED: PANTOPRAZOLE 40 MG 10ML VIAL IV STA (21:27)
[2018-10-15] MEDS ORDERED: PROMETHAZINE HCL (IM) 25 MG/ML VIAL IM ONE (21:30)
[2018-10-15] MEDS ORDERED: SODIUM CHLORIDE 0.9% 500ML 500 ML IV ONE (21:30)
--- NOTE | 2018-10-15 22:07 | NUR ---
MD IS AWARE OF BP, PULSE AND COMPLICATION TO ACCESS LINE ON PATIENT
--- NOTE | 2018-10-15 22:53 | NUR ---
PATIENT NOT IN ROOM, NO IV ACCESS ON PATIENT, PATIENT NOT IN RADIOLOGY OR IN HOSPITAL, ELOPED BEFORE WORKUP STARTED OR COMPLETED.
== END 2018-10-15 23:02 | disposition left against medical advice (07) ==
LOC: ER 21:15
DX: R11.2 Nausea with vomiting, unspecified (principal)

== ENCOUNTER 2018-11-08 16:40 | Emergency (ER) | payer MEDICARE ==
[~2018-11-08] VITALS: Ht 157.5 cm; Wt 53.5 kg
--- OUTSIDE RECORDS SUMMARY | 2018-11-08 16:44 | XMS REPORT | Clinical Summary ---
Author Author Jaciel Yazidi Organization [place] [facility] Address Unknown Phone Unavailable Care Team Providers Care Linesperson Name Role Phone Asked, No Pcp PCP [...] (40 mg total) 8 by mouth daily. Active losartan (COZAAR) 100 MG Take 100 mg 0 tablet by mouth daily. Active ALPRAZolam (XANAX) 1 MG Take 1 mg by 0 tablet mouth 2 (two) times a day as needed for anxiety. Active promethazine (PHENERGAN) Take 25 mg by 0 25 MG tablet mouth every 6 (six) hours as needed for nausea or vomiting. 02/11/2018 Discontinued insulin lispro (HumaLOG) Inject 15 0 100 unit/mL injection Units under the skin 3 (three) times a day before meals. 03/30/2018 Discontinued hydrALAZINE (APRESOLINE) Take 25 mg by 0 25 MG tablet mouth 4 7 (four) times a day. 02/11/2018 Discontinued clonIDINE (CATAPRES-TTS) Place 1 patch 0 0.3 mg/24 hr on the skin once a week. Every 03/30/2018 Discontinued insulin detemir (LEVEMIR) Inject 30 0 100 unit/mL injection Units under the skin 2 (two) times a day. 03/13/2018 carvedilol (COREG) 3.125 Take 1 tablet [...] clonIDINE Place 1 patch 4 patch 0 (VRYODYKT-FCS-4) 0.2 (0.2 mg 8 mg/24 hr total) [...] every 6 (six) hours for 30 days. 07/29/2018 sevelamer (RENVELA) 800 Take 2 180 tablet 0 mg tablet tablets 8 (1,600 mg total) by mouth 3 (three) times a day with meals for 30 days. 07/29/2018 promethazine (PHENERGAN) Take 1 tablet 20 tablet 0 25 MG tablet (25 mg total) 9 by mouth every 6 (six) hours as needed for nausea or vomiting for up to 5 days. Active Problems Problem Noted Date Exacerbation of Crohn's disease without complication 07/24/2018 Gastroenteritis 06/25/2018 Gastroparesis due to DM 04/01/2018 Accelerated hypertension 02/09/2018 Pain of upper abdomen 02/09/2018 Overview: Added automatically from request for surgery [id number] Hyperglycemia 06/22/2017 High anion gap metabolic acidosis [...] Encounters Care Team Description Date Type Specialty Ascencion Vickers DO Joglekar, Swati, MD Patel, Amitkumar Natvarlal, MD Exacerbation of Crohn's disease without complication (HCC) (Primary Dx); Gastroparesis; Non-intractable vomiting with nausea, unspecified vomiting type; Cystitis; Intractable abdominal pain 07/23/2018 Emergency General Surgery - 07/24/2018 Marcia Westfall MD Gastroenteritis (Primary Dx); Type 1 diabetes mellitus with hyperosmolarity without nonketotic hyperglycemic hyperosmolar coma (HCC); ESRD (end stage renal disease) (HCC) 06/25/2018 [facility] General Internal Medicine - Encounter 06/29/2018 Doris Jones III, MD Patel, Bhagwat Purushottam, MD Abdominal pain, unspecified abdominal location (Primary Dx); Intractable vomiting with nausea, unspecified vomiting type; Dehydration 04/01/2018 [facility] General Internal Medicine - Encounter 04/07/2018 Marcia Westfall MD Weakness (Primary Dx); Gastroparesis 03/19/2018 [facility] General Internal Medicine - Encounter 03/30/2018 Chava Guillen CRNA 02/11/2018 Anesthesia Gastroenterology Event [facility], Akash Teixeira MD COLONOSCOPY WITH BIOPSY 02/11/2018 Surgery Gastroenterology Tona Wiseman MD Pain of upper abdomen (Primary Dx) 02/09/2018 [facility] General Internal Medicine - Encounter 02/11/2018 CransEloina C 02/09/2018 Orders Only [employer] Mantena, Debbie, DO Muscle spasm (Primary Dx) 01/21/2018 Emergency Emergency Medicine Marcia Westfall MD Gastroparesis (Primary Dx) 12/03/2017 [facility] General Internal Medicine Encounter after 11/07/2017 Immunizations Name Dates Previously Given Next Due [...] Vital Signs Time Taken Vital Sign Reading 07/24/2018 8:10 PM BOARD WRITER Blood Pressure 119/60 07/24/2018 8:10 PM BOARD WRITER Pulse 82 07/24/2018 8:10 PM BOARD WRITER Temperature 36.7 C (98 F) 07/24/2018 8:10 PM BOARD WRITER Respiratory Rate 19 07/24/2018 8:10 PM BOARD WRITER Oxygen Saturation 99% - Inhaled Oxygen - Concentration 06/29/2018 4:54 AM BOARD WRITER Weight 56.7 kg (125 lb) 07/23/2018 6:58 PM BOARD WRITER Height 157.5 cm (5' 2") 06/29/2018 4:54 AM BOARD WRITER Body Mass Index 22.86 Plan of Treatment Health Maintenance Due Date Last Done Comments DIABETIC RETINAL EYE EXAM 1991 DIABETIC FOOT EXAM 2001 URINE MICROALBUMIN 2001 CERVICAL CANCER SCREENING 2012 INFLUENZA VACCINE 02/16/2019 03/30/2018, 04/07/2017, 04/07/2017 Procedures Comments Procedure Name Priority Date/Time Associated Diagnosis POC GLUCOSE Routine 07/24/2018 4:13 PM BOARD WRITER POC GLUCOSE Routine 07/24/2018 12:53 PM BOARD WRITER POC GLUCOSE Routine 07/24/2018 8:32 AM BOARD WRITER POC GLUCOSE Routine 07/24/2018 6:[address] ABDOMEN PELVIS WO STAT 07/23/2018 CONTRAST 9:36 PM BOARD WRITER LACTIC ACID, I-STAT Timed 07/23/2018 8:16 PM BOARD WRITER MANUAL DIFFERENTIAL STAT 07/23/2018 7:35 PM BOARD WRITER ESTIMATED GFR STAT 07/23/2018 7:35 PM BOARD WRITER AMYLASE LEVEL STAT 07/23/2018 7:35 PM BOARD WRITER COMPREHENSIVE METABOLIC STAT 07/23/2018 PANEL 7:35 PM BOARD WRITER CBC WITH PLATELET AND STAT 07/23/2018 DIFFERENTIAL 7:35 PM BOARD WRITER POC GLUCOSE Routine 06/29/2018 11:10 AM BOARD WRITER POC GLUCOSE Routine 06/29/2018 7:27 AM BOARD WRITER ESTIMATED GFR Routine 06/29/2018 5:45 AM BOARD WRITER HC COMPLETE BLD COUNT Routine 06/29/2018 W/AUTO DIFF 5:45 AM BOARD WRITER BASIC METABOLIC PANEL Routine 06/29/2018 5:45 AM BOARD WRITER POC GLUCOSE Routine 06/28/2018 9:34 PM BOARD WRITER POC GLUCOSE Routine 06/28/2018 5:55 PM BOARD WRITER POC GLUCOSE Routine 06/28/2018 2:32 PM BOARD WRITER HEPATITIS B SURFACE Routine 06/28/2018 ANTIGEN 10:20 AM BOARD WRITER POC GLUCOSE Routine 06/28/2018 6:01 AM BOARD WRITER ESTIMATED GFR Routine 06/28/2018 6:00 AM BOARD WRITER PHOSPHORUS LEVEL Routine 06/28/2018 6:00 AM BOARD WRITER COMPREHENSIVE METABOLIC Routine 06/28/2018 PANEL 6:00 AM BOARD WRITER HC COMPLETE BLD COUNT Routine 06/28/2018 W/AUTO DIFF 6:00 AM BOARD WRITER POC GLUCOSE Routine 06/27/2018 10:02 PM BOARD WRITER HEMODIALYSIS Routine 06/27/2018 6:54 PM BOARD WRITER POC GLUCOSE Routine 06/27/2018 4:34 PM BOARD WRITER POC GLUCOSE Routine 06/27/2018 11:17 AM BOARD WRITER POC GLUCOSE Routine 06/27/2018 6:08 AM BOARD WRITER ESTIMATED GFR Routine 06/27/2018 6:00 AM BOARD WRITER PHOSPHORUS LEVEL Routine 06/27/2018 6:00 AM BOARD WRITER COMPREHENSIVE METABOLIC Routine 06/27/2018 PANEL 6:00 AM BOARD WRITER HC COMPLETE BLD COUNT Routine 06/27/2018 W/AUTO DIFF 6:00 AM BOARD WRITER POC GLUCOSE Routine 06/26/2018 9:18 PM BOARD WRITER POC GLUCOSE Routine 06/26/2018 4:41 PM BOARD WRITER POC GLUCOSE Routine 06/26/2018 11:42 AM BOARD WRITER ESTIMATED GFR Routine 06/26/2018 11:00 AM BOARD WRITER COMPREHENSIVE METABOLIC Routine 06/26/2018 PANEL 11:00 AM BOARD WRITER HC COMPLETE BLD COUNT Routine 06/26/2018 W/AUTO DIFF 11:00 AM BOARD WRITER POC GLUCOSE Routine 06/26/2018 6:29 AM BOARD WRITER BLOOD CULTURE, AEROBIC & Routine 06/26/2018 ANAEROBIC 2:50 AM BOARD WRITER POC GLUCOSE Routine 04/07/2018 11:20 AM CDT [...] MMODE SPECTRAL 3:10 PM CDT COLOR DOPPLER ([id number]) HCG QUALITATIVE, SERUM Routine 02/09/2018 SCREEN 2:50 [...] EXTERNAL Routine 11/22/2017 STUDY 8:19 PM CDT after 11/07/2017 Results * POC glucose (07/24/2018 4:13 PM BOARD WRITER) Only the most recent of 105 results within the time period is included. POC glucose 69 65 - 99 mg/dL JACIEL URBINA Comment: [facility] Notified RN Meter ID: [id number] Pool Hand: Lauro Huang Performing Organization Address City/State/Zipcode Phone Number [facility] DEPARTMENT OF [address] [place] [address] PATHOLOGY AND GENOMIC MEDICINE [facility] [address] [place] [address] [address] * CT Abdomen Pelvis Wo Contrast (07/23/2018 9:36 PM BOARD WRITER) Narrative Performed At EXAMINATION:CT ABDOMEN PELVIS WO CONTRAST RADIANT CLINICAL HISTORY:crohns exacebation TECHNIQUE: Multiple axial images of the abdomen and pelvis were obtained without intravenous administration of iodinated contrast. Sagittal and coronal computerized reformatted images were also obtained. The lack of intravenous contrast reduces the sensitivity of detecting solid organ disease. CT imaging was performed with iterative reconstruction technique and/or automated exposure control to reduce radiation dose. COMPARISON:12/02/2017 IMPRESSION: Coronary artery calcification is seen. Trace pericardial effusion. Patient is status post cholecystectomy. Liver demonstrates focal fatty infiltration along the falciform ligament. Spleen, pancreas, adrenal glands are normal. Similar to previous exam, fusion of the kidneys is seen across the midline, with the kidney located in the pelvis. Punctate nonobstructive calculus is seen of interpolar region of left kidney. No hydronephrosis or hydroureter. Moderate wall thickening of the bladder is seen, suspicious for cystitis. Trace fluid is seen in the pelvis. No free intraperitoneal air. Atherosclerotic vascular calcifications are seen. Moderate quantity of fecal material is seen of the rectum, suggestive of fecal impaction. Moderate quantity of fecal material is seen throughout the large bowel. Appendix is normal. No gastrointestinal tract obstruction. No acute osseous abnormalities. CONCLUSION: Fusion of the kidneys is seen across the midline; the fused kidney is in the pelvis. Punctate nonobstructive calculus is seen of interpolar region of left kidney. Moderate wall thickening of the bladder is seen, suspicious for cystitis. Suggestion of fecal impaction. [facility]-[id number] Procedure Note Interface, Radiology Results Incoming - 07/23/2018 10:11 PM BOARD WRITER EXAMINATION: CT ABDOMEN PELVIS WO CONTRAST CLINICAL HISTORY: crohns exacebation TECHNIQUE: Multiple axial images of the abdomen and pelvis were obtained without intravenous administration of iodinated contrast. Sagittal and coronal computerized reformatted images were also obtained. The lack of intravenous contrast reduces the sensitivity of detecting solid organ disease. CT imaging was performed with iterative reconstruction technique and/or automated exposure control to reduce radiation dose. COMPARISON: 12/02/2017 IMPRESSION: Coronary artery calcification is seen. Trace pericardial effusion. Patient is status post cholecystectomy. Liver demonstrates focal fatty infiltration along the falciform ligament. Spleen, pancreas, adrenal glands are normal. Similar to previous exam, fusion of the kidneys is seen across the midline, with the kidney located in the pelvis. Punctate nonobstructive calculus is seen of interpolar region of left kidney. No hydronephrosis or hydroureter. Moderate wall thickening of the bladder is seen, suspicious for cystitis. Trace fluid is seen in the pelvis. No free intraperitoneal air. Atherosclerotic vascular calcifications are seen. Moderate quantity of fecal material is seen of the rectum, suggestive of fecal impaction. Moderate quantity of fecal material is seen throughout the large bowel. Appendix is normal. No gastrointestinal tract obstruction. No acute osseous abnormalities. CONCLUSION: Fusion of the kidneys is seen across the midline; the fused kidney is in the pelvis. Punctate nonobstructive calculus is seen of interpolar region of left kidney. Moderate wall thickening of the bladder is seen, suspicious for cystitis. Suggestion of fecal impaction. [facility]-[id number] Performing Organization Address City/State/Zipcode Phone Number [facility] [address] [place] [address] * Lactic acid, I-Stat (07/23/2018 8:16 PM BOARD WRITER) Lactic acid, I-Stat 0.9 0.5 - 2.2 mmol/L [facility] Specimen Plasma specimen Performing Organization Address City/State/Zipcode Phone Number [address] [address] PATHOLOGY AND GENOMIC MEDICINE, [address] * Estimated GFR (07/23/2018 7:35 PM BOARD WRITER) Only the most recent of 10 results within the time period is included. Estimated GFR 20 (A) mL/min/1.73 m2 [facility] Comment: [facility] rpretation G1 >=90 Normal or high G2 60-89Mildly decreased [id number] Mildly to moderately decreased [id number] Moderately to severely decreased G4 15-29Severely decreased G5 <15Kidney failure The eGFR was calculated using the Chronic Kidney Disease Epidemiology Collaboration (CKD-EPI) equation. Interpretation is based on recommendations of the National Kidney Foundation-Kidney Disease Outcomes Quality Initiative (NKF-KDOQI) published in 2014. Specimen Plasma specimen Performing Organization Address City/State/[place] [address] PATHOLOGY AND GENOMIC MEDICINE, [address] * Manual differential (07/23/2018 7:35 PM BOARD WRITER) Only the most recent of 4 results within the time period is included. Manual differential PERFORMED [facility] Neutrophils 78.0 (H) 39.0 - 69.0 % [facility] Lymphocytes 19.0 (L) 25.0 - 45.0 % [facility] Monocytes 2.0 0.0 - 10.0 % [facility] Eosinophils 0.0 0.0 - 5.0 % [facility] Basophils 0.0 0.0 - 1.0 % [facility] Metamyelocytes 0 % [facility] Myelocytes 1 % [facility] Promyelocytes 0 % [facility] Platelet slide review Carmen adequate [facility] Anisocytosis Moderate [facility] Polychromasia Moderate [facility] Tear drop cells Occasional [facility] Ovalocytes Moderate [facility] Performing Organization Address City/State/Zipcode Phone Number [facility] DEPARTMENT [address] [place] [address] PATHOLOGY AND GENOMIC MEDICINE [address] * CBC with platelet and differential (07/23/2018 7:35 PM BOARD WRITER) Only the most recent of 22 results within the time period is included. WBC 5.44 4.50 - 11.00 k/uL [facility] RBC 4.24 4.20 - 5.50 m/uL [facility] HGB 12.2 12.0 - 16.0 g/dL [facility] HCT 41.0 37.0 - 47.0 % [facility] MCV 96.7 82.0 - 100.0 fL [facility] MCH 28.8 27.0 - 34.0 pg [facility] MCHC 29.8 (L) 31.0 - 37.0 g/dL [facility] RDW - SD 63.9 (H) 37.0 - 55.0 fL [facility] MPV 9.1 8.8 - 13.2 fL [facility] Platelet count 265 150 - 400 k/uL [facility] Neutrophils 78.0 (H) 39.0 - 69.0 % [facility] Lymphocytes 19.0 (L) 25.0 - 45.0 % [facility] Monocytes 2.0 0.0 - 10.0 % [facility] Eosinophils 0.0 0.0 - 5.0 % [facility] Basophils 0.0 0.0 - 1.0 % [facility] Specimen Blood Performing Organization Address City/[facility] [place] [place] [address] PATHOLOGY AND GENOMIC MEDICINE[address] * Amylase level (07/23/2018 7:35 PM BOARD WRITER) Only the most recent of 2 results within the time period is included. Amylase 90 14 - 97 U/L [facility] Specimen Plasma specimen Performing Organization Address City/[facility] [place] [place] [address] PATHOLOGY AND GENOMIC MEDICINE, [address] * Comprehensive metabolic panel (07/23/2018 7:35 PM BOARD WRITER) Only the most recent of 14 results within the time period is included. Sodium 145 128 - 145 mEq/L [facility] Potassium 4.2 3.6 - 5.1 mEq/L [facility] CO2 24 18 - 33 mEq/L [facility] Chloride 98 98 - 108 mEq/L [facility] Glucose 109 73 - 118 mg/dL [facility] Calcium 10.4 (H) 8.0 - 10.3 mg/dL [facility] BUN 20 7 - 22 mg/dL [facility] Creatinine 3.4 (H) 0.5 - 0.9 mg/dL [facility] Alkaline phosphatase 61 42 - 141 U/L [facility] ALT 17 10 - 47 U/L [facility] AST 21 11 - 38 U/L [facility] Total bilirubin 0.5 0.2 - 1.6 mg/dL [facility] Albumin 4.1 3.3 - 5.5 g/dL [facility] Protein 8.5 (H) 6.4 - 8.1 g/dL [facility] Anion gap 23@ANIO (H) 7 - 15 mEq/L [facility] A/G ratio 0.9 0.7 - 3.8 [facility] Specimen Plasma specimen Performing Organization Address City/State/[place] [address] PATHOLOGY AND GENOMIC MEDICINE, [address] * Basic metabolic panel (06/29/2018 5:45 AM BOARD WRITER) Only the most recent of 9 results within the time period is included. Sodium 142 135 - 148 mEq/L [facility] Potassium 3.9 3.5 - 5.0 mEq/L [facility] Chloride 101 98 - 112 mEq/L [facility] CO2 26 24 - 31 mEq/L [facility] Anion gap 15@ANIO 7 - 15 mEq/L [facility] BUN 39 (H) 6 - 20 mg/dL [facility] Creatinine 3.53 (H) 0.50 - 0.90 mg/dL [facility] Glucose 90 65 - 99 mg/dL [facility] Calcium 9.7 8.3 - 10.2 mg/dL [facility] Specimen Plasma specimen Performing Organization Address City/[facility] Phone Number [facility] [place] [address] PATHOLOGY AND [facility] MEDICINE [address] * Hepatitis B surface antigen (06/28/2018 10:20 AM BOARD WRITER) Only the most recent of 3 results within the time period is included. Hepatitis B surface Ag Non-reactive Non-reactive [facility] Specimen Blood Performing Organization Address [facility] Phone Number [facility] [place] [address] PATHOLOGY [address] * Phosphorus level (06/28/2018 6:00 AM BOARD WRITER) Only the most recent of 10 results within the time period is included. Phosphorus 7.0 (H) 2.4 - 4.5 mg/dL [facility] Specimen Plasma specimen Performing Organization Address [facility] Phone Number [facility] [place] [address] PATHOLOGY AND [facility] MEDICINE [address] * Blood culture, aerobic & anaerobic (06/26/2018 2:50 AM BOARD WRITER) Only the most recent of 7 results within the time period is included. Blood culture isolate No growth after 5 days of [facility] incubation. HOSPITAL Comment: Specimen Information Specimen Source: Blood Specimen Site: Line, port-a-cath Specimen Blood - Line, port-a-cath Performing Organization Address City/State/Zipcode Phone Number [facility] DEPARTMENT OF [address] [place] [address] PATHOLOGY AND GENOMIC MEDICINE [address] * Hepatitis B surface Ab, quantitative (04/07/2018 8:46 AM CDT) Only the most recent of 2 results within the time period is included. Hepatitis B surface Ab >1000.00 IU/L [facility] Comment: The anti-HBs is greater than [...] Cellular and Tissue-Based Products (HCT/P). Performed by [employer], [address] [place], [place] [id number] [email or web address], Blade Hoff MD - Lab. Director Specimen Serum Performing Organization Address City/[facility]/Zipcode Phone Number [facility] [address] [place] [address] * Hepatitis B surface antibody (04/07/2018 7:45 AM CDT) Only the most recent of 2 results within the time period is included. Hepatitis B surface Ab Reactive (A) Non-reactive [facility] DEPARTMENT OF PATHOLOGY AND GENOMIC MEDICINE Specimen Blood Performing Organization Address City/State/Zipcode Phone Number [address] [address] PATHOLOGY AND GENOMIC MEDICINE * Lactic acid level, SEPSIS - Now and repeat 2x every 3 hours (04/01/2018 7:40 AM CDT) Only the most recent of 2 results within the time period is included. Lactic acid 0.7 0.5 - 2.2 mmol/L [facility] DEPARTMENT OF PATHOLOGY AND GENOMIC MEDICINE Specimen Plasma specimen Performing Organization Address [facility] Phone Number [facility] [place] [address] PATHOLOGY AND GENOMIC MEDICINE * Lipase level (04/01/2018 4:42 AM CDT) Lipase 25 13 - 60 U/L [facility] DEPARTMENT OF PATHOLOGY AND GENOMIC MEDICINE Specimen Plasma specimen Performing Organization Address [facility] [place] [address] PATHOLOGY AND GENOMIC MEDICINE * ECG ED Preliminary Interpretation - NOT AN ORDER (04/01/2018 4:16 AM CDT) Narrative Performed At Doris Jones III, MD 04/01/20182:51 PM ECG ED Preliminary Interpretation - Not an Order Performed by: DORIS JONES III Authorized by: DROIS JONES III ECG reviewed by ED Physician in the absence of a ultrasound spec: yes Interpretation: Interpretation: abnormal Quality: Tracing quality:Limited [...] [facility] Atrial rate 122 [facility] MO interval 142 [facility] QRSD interval 80 [facility] QT interval 328 [facility] QTC interval 467 [facility] P axis 1 68 [facility] QRS axis 1 38 [facility] T wave axis 48 [facility] EKG impression Sinus tachycardia-Voltage [facility] MUSE criteria for left ventricular hypertrophy-Abnormal ECG-In automated comparison with ECG of 25-MAR-2018 17:26,-No significant change was found- Performing Organization Address [facility] Phone Number [facility] MUSE [address] [place] [address] * Estimated GFR (03/29/2018 5:45 AM CDT) Only the most recent of 13 results within the time period is included. GFR Non Af Amer 6 (A) mL/min/1.73 m2 [facility] DEPARTMENT OF PATHOLOGY AND GENOMIC MEDICINE GFR Af Amer 7 (A) mL/min/1.73 m2 [facility] DEPARTMENT OF Comment: PATHOLOGY AND Chronic kidney [...] specimen Performing Organization Address City/State/Zipcode Phone Number [facility] [place] [address] [place] [address] PATHOLOGY AND GENOMIC MEDICINE * Immunoglobulin A (03/24/2018 1:10 PM CDT) IgA 248 70 - 400 mg/dL [facility] DEPARTMENT OF PATHOLOGY AND GENOMIC MEDICINE Specimen Plasma specimen Performing Organization Address City/State/Zipcode Phone Number [facility] DEPARTMENT OF [address] [place] [address] PATHOLOGY AND GENOMIC MEDICINE * Transfuse RBC (03/23/2018 5:34 PM CDT) Only the most recent of 2 results within the time period is included. * Copper level, serum (03/23/2018 2:28 PM CDT) Copper 88 80 - 155 ug/dL [facility] Comment: INTERPRETIVE INFORMATION: Copper, Serum or [...] or malabsorption. See Compliance Statement B at [email or web address]cs Performed by [employer], [address] [place] [id number] [email or web address], Blade Hoff MD - Lab. Director Specimen Blood Performing Organization Address [facility]/Zipcode Phone Number [facility] [address] [place] [address] * IR Lumbar Puncture by Radiology (03/23/2018 9:53 AM CDT) Narrative Performed At EXAMINATION: IR LUMBAR PUNCTURE RADIANT CLINICAL HISTORY: Peripheral Demyelinating Neuropathy COMPARISON:None [...] fluoroscopic guided lumbar puncture as detailed above. [id number] Procedure Note Hm Interface, Radiology Results Incoming - 03/23/2018 1:03 [...] fluoroscopic guided lumbar puncture as detailed above. [facility]-[id number] Performing Organization Address City/State/Zipcode Phone Number [facility] [address] [place] [address] * IgG synthesis rate study (03/23/2018 9:45 AM CDT) IgG albumin ratio, CSF 0.12 0.00 - 0.23 [facility] DEPARTMENT OF PATHOLOGY AND GENOMIC MEDICINE IgG index, CSF 0.49 0.01 - 0.63 [facility] DEPARTMENT OF PATHOLOGY AND GENOMIC MEDICINE IgG synthetic rate 13.91 (H) -9.90 - 3.30 mg/day [facility] DEPARTMENT OF PATHOLOGY AND Astonish Results MEDICINE Q-albumin ratio, CSF 53.57 (H) 2.00 - 6.00 [facility] DEPARTMENT OF PATHOLOGY AND Astonish Results MEDICINE IgG, CSF 22.10 (H) 1.00 - 3.00 mg/dL [facility] DEPARTMENT OF PATHOLOGY AND GENOMIC MEDICINE Albumin, CSF 182.13 (H) 10.00 - 30.00 mg/dL [facility] DEPARTMENT OF PATHOLOGY AND Astonish Results MEDICINE IgG 834 700 - 1,600 mg/dL [facility] DEPARTMENT OF PATHOLOGY AND GENOMIC MEDICINE Albumin, S 3,400.0 (L) 3,640.0 - 5,304.0 mg/dL [facility] DEPARTMENT OF PATHOLOGY AND Astonish Results MEDICINE Specimen Serum Performing Organization Address City/[facility] Hospital[facility] [place] [address] PATHOLOGY AND Astonish Results [facility] * West Nile virus by PCR, CSF (03/23/2018 9:45 AM CDT) West Nile virus PCR, CSF Not-Detected Not-Detected [facility] DEPARTMENT OF PATHOLOGY AND Astonish Results MEDICINE West Nile virus PCR, CSF See link below for PDF Lab [facility] DEPARTMENT OF ReportComment: Case Number: PATHOLOGY AND [id number] Astonish Results MEDICINE Specimen Cerebrospinal fluid Performing Organization Address City/[facility] Phone Number [place] [phone] PATHOLOGY AND Astonish Results [facility] * West Nile virus antibody panel, [...] members of the Flaviviridae family, such as Bourneville encephalitis virus, show extensive cross-reactivity with West Nile virus, serologic testing specific for these species should be considered. The detection of antibodies to West Nile virus in cerebrospinal fluid may indicate central nervous system infection. However, consideration must be given to possible contamination by blood or transfer of serum antibodies across the blood-brain barrier. Test developed and characteristics determined by [employer]. See Compliance Statement B: [employer]/CS West Nile IgM, CSF 0.01 <=0.89 IV [facility] Comment: INTERPRETIVE INFORMATION: West Nile Virus [...] members of the Flaviviridae family, such as Bourneville encephalitis virus, show extensive cross-reactivity with West Nile virus, serologic testing specific for these species should be considered. The detection of antibodies to West Nile virus in cerebrospinal fluid may indicate central nervous system infection. However, consideration must be given to possible contamination by blood or transfer of serum antibodies across the blood-brain barrier. Test developed and characteristics determined by [employer]. See Compliance Statement B: [employer]/CS Performed by [employer], [address] [place] [address] [email or web address], Blade Hoff MD - Lab. Director Specimen Cerebrospinal fluid Performing Organization Address City/State/Zipcode Phone Number [facility] [address] [place] [address] * [facility] culture (03/23/2018 9:45 AM CDT) AFB culture isolate No growth after 6 weeks of [facility] DEPARTMENT OF incubation. PATHOLOGY AND Comment: GENOMIC MEDICINE Specimen Information Specimen Source: CSF (Spinal Fluid) Specimen Site: Lumbar puncture Specimen Cerebrospinal fluid - Lumbar puncture Performing Organization Address City/[facility] Phone Number [facility] [place] [address] PATHOLOGY AND GENOMIC MEDICINE * Cryptococcal antigen, screen (03/23/2018 9:45 AM CDT) Cryptococcal Ag Negative - No Cryptococcus [facility] DEPARTMENT OF antigen detected. PATHOLOGY AND Comment: GENOMIC MEDICINE Specimen Information Specimen Source: CSF (Spinal Fluid) Specimen Site: Lumbar puncture Specimen Cerebrospinal fluid - Lumbar puncture Performing Organization Address [facility] Phone Number [facility] [place] [address] PATHOLOGY AND GENOMIC MEDICINE * Oligoclonal banding, CSF (03/23/2018 9:45 AM CDT) Protein, CSF 235 (H) 15 - 45 mg/dL [facility] DEPARTMENT OF PATHOLOGY AND GENOMIC MEDICINE Prealbumin, CSF 1.0 (L) 3.5 - 11.1 % [facility] DEPARTMENT OF PATHOLOGY AND GENOMIC MEDICINE Albumin, CSF 69.8 (H) 40.8 - 66.2 % [facility] DEPARTMENT OF PATHOLOGY AND GENOMIC MEDICINE Alpha 1, CSF 3.2 2.3 - 6.4 % [facility] DEPARTMENT OF PATHOLOGY AND GENOMIC MEDICINE Alpha 2, CSF 6.7 6.1 - 12.6 % [facility] DEPARTMENT OF PATHOLOGY AND GENOMIC MEDICINE Beta, CSF 10.0 (L) 11.7 - 24.1 % [facility] DEPARTMENT OF PATHOLOGY AND GENOMIC MEDICINE Gamma, CSF 9.3 5.6 - 12.2 % [facility] DEPARTMENT OF PATHOLOGY AND GENOMIC MEDICINE CSF extended See Comment [facility] DEPARTMENT OF interpretation Comment: PATHOLOGY AND An abnormal CSF protein study GENOMIC MEDICINE with increased total protein and increased Q-albumin and decreased prealbumin 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 IgG synthesis rate increased probably as an artifact. No oligoclonal bands are seen. CSF interpretation See CommentComment: Lita [facility] DEPARTMENT OF Gissel BECKFORD; Deborah Juares, PhD; Lon REID AND MD Holland, PhD GENOMIC MEDICINE Specimen Cerebrospinal fluid Performing Organization Address City/[facility] Phone Number [facility] [place] [address] PATHOLOGY AND GENOMIC MEDICINE * Gram stain (03/23/2018 9:45 AM CDT) Gram stain isolate No WBC's or organisms seen. [facility] DEPARTMENT OF Comment: PATHOLOGY AND Specimen Information GENOMIC MEDICINE Specimen Source: CSF (Spinal Fluid) Specimen Site: Lumbar puncture Specimen Cerebrospinal fluid - Lumbar puncture Performing Organization Address City/[facility]/Zipcode Phone Number [facility] DEPARTMENT [address] [address] PATHOLOGY AND GENOMIC MEDICINE * CSF culture (03/23/2018 9:45 AM CDT) CSF culture isolate No growth after 3 days. [facility] DEPARTMENT OF Comment: PATHOLOGY AND Specimen Information GENOMIC MEDICINE Specimen Source: CSF (Spinal Fluid) Specimen Site: Lumbar puncture Specimen Cerebrospinal fluid - Lumbar puncture Performing Organization Address City/[facility] Phone Number [facility] DEPARTMENT [address] [address] PATHOLOGY AND GENOMIC MEDICINE * CSF cell count with differential (03/23/2018 9:45 AM CDT) Color, CSF Colorless [facility] DEPARTMENT OF PATHOLOGY AND GENOMIC MEDICINE Appearance, CSF Clear [facility] DEPARTMENT OF PATHOLOGY AND GENOMIC MEDICINE RBC, CSF 19 (H) 0 - 1 /CMM [facility] DEPARTMENT OF PATHOLOGY AND GENOMIC MEDICINE WBC, CSF 7 (H) 0 - 5 /CMM [facility] DEPARTMENT OF PATHOLOGY AND GENOMIC MEDICINE CSF mononuclear cell Diff to follow [facility] DEPARTMENT OF PATHOLOGY AND GENOMIC MEDICINE Neutrophils, CSF 4 % [facility] DEPARTMENT OF PATHOLOGY AND GENOMIC MEDICINE Lymphocytes, CSF 96 % [facility] DEPARTMENT OF PATHOLOGY AND GENOMIC MEDICINE Specimen Cerebrospinal fluid Performing Organization Address City/[facility] Phone Number [facility] DEPARTMENT [id number] [place] [address] PATHOLOGY AND GENOMIC MEDICINE * VDRL, CSF screen (03/23/2018 9:45 AM CDT) VDRL, CSF screen Non-reactive Non-reactive [facility] DEPARTMENT OF PATHOLOGY AND GENOMIC MEDICINE Specimen Cerebrospinal fluid Performing Organization Address City/[facility]/Zipcode Phone Number [facility] DEPARTMENT [address] [address] PATHOLOGY AND GENOMIC MEDICINE * Glucose level, CSF (03/23/2018 9:45 AM CDT) Glucose, CSF 95 (H) 40 - 70 mg/dL [facility] DEPARTMENT OF PATHOLOGY AND GENOMIC MEDICINE Specimen Cerebrospinal fluid Performing Organization Address City/[facility]/Zipcode Phone Number [facility] DEPARTMENT [address] [place] [address] PATHOLOGY AND GENOMIC MEDICINE * Angiotensin converting enzyme, CSF (03/23/2018 9:45 AM CDT) Angiotensin converting 3.2 (H) 0.0 - 2.5 U/L [facility] enzyme, CSF Comment: This test was developed and its performance characteristics determined by [employer]. The U.S. Food and Drug Administration has not approved or cleared this test; however, FDA clearance or approval is not currently required for clinical use. The results are not intended to be used as the sole means for clinical diagnosis or patient management decisions. Performed by [employer], [address] [place] [address] [email or web address], Blade Hoff MD - Lab. Director Specimen Cerebrospinal fluid Performing Organization Address City/State/Zipcode Phone Number [facility] [address] [place] [address] * MRI Cervical Spine Wo Contrast (03/23/2018 [...] C6-C7. No significant spinal canal stenosis identified. [facility]-[id number] Procedure Note Hm Interface, Radiology Results Incoming - 03/23/2018 9:23 AM CDT EXAMINATION: MRI [...] C6-C7. No significant spinal canal stenosis identified. [facility]-[id number] Performing Organization Address City/[facility]/Zipcode Phone Number [facility] [address] [place] [address] * MRI Brain Wo Contrast (03/23/2018 8:34 [...] are unremarkable. IMPRESSION: No acute intracranial abnormality. [facility]-[id number] Procedure Note Interface, Radiology Results Incoming - 03/23/2018 8:51 AM CDT EXAMINATION: MRI [...] are unremarkable. IMPRESSION: No acute intracranial abnormality. [facility]-[id number] Performing Organization Address City/[facility]/Zipcode Phone Number [facility] [address] [place] [address] * Syphilis treponemal IgG (03/22/2018 5:30 PM CDT) Syphilis treponemal IgG Non-reactiveComment: Non-reactive [facility] DEPARTMENT OF Non-reactive: No serological PATHOLOGY AND evidence of Syphilis infection GENOMIC MEDICINE Specimen Serum Performing Organization Address City/[facility] Phone Number [facility] DEPARTMENT OF [address] [place], [place] [address] [place] [address] PATHOLOGY AND GENOMIC MEDICINE * Rapid HIV 1 & 2 (03/22/2018 5:30 PM CDT) Rapid HIV 1 and 2 Non-Reactive Non-Reactive [facility] DEPARTMENT OF PATHOLOGY AND GENOMIC MEDICINE Specimen Blood Performing Organization Address City/State/Zipcode Phone Number [facility] [place] [address] [place] [address] PATHOLOGY AND GENOMIC MEDICINE * Heavy metals panel 3, blood (03/22/2018 5:30 PM CDT) Arsenic <10.0 0.0 - 13.0 ug/L [facility] Comment: INTERPRETIVE INFORMATION: Arsenic, Blood Potentially toxic ranges for blood arsenic:Greater than or equal to 600 ug/L. Blood arsenic is for the detection of recent exposure only. Blood arsenic levels in healthy subjects vary considerably with exposure to arsenic in the diet and the environment.A 24-hour urine arsenic is useful for the detection of chronic exposure. Test developed and characteristics determined by [employer]. See Compliance Statement B: [employer]/CS Lead, blood 3.1 0.0 - 4.9 ug/dL [facility] Comment: INTERPRETIVE INFORMATION: Lead, Blood (Venous) [...] may become , reduce lead exposure. All qzxa48-27.9 ug/dLReduced lead exposure and increased biological monitoring are recommended. All ngvq09-48.9 ug/dLRemoval from lead exposure and prompt medical [...] present. Test developed and characteristics determined by [employer]. See Compliance Statement B: [employer]/CS Mercury, blood <3 0 - 10 ug/L [facility] Comment: INTERPRETIVE INFORMATION: Mercury, Blood Blood [...] ug/L. Test developed and characteristics determined by [employer]. See Compliance Statement B: [employer]/CS Performed by [employer], [address] [place], [place] [id number] [email or web address], Blade Hoff MD - Lab. Director Specimen Blood Narrative Performed At [facility], Serum: whole blood submitted for testing. specimen requires serum or [facility] plasma to be from cells soon after collection. Notified [facility] ([facility] [employer] [facility]) to recollect 03/23/201809:56 [facility] Performing Organization Address City/State/Zipcode Phone Number [facility] [address] [place] [address] * Vitamin B1 level, whole blood (03/22/2018 5:30 PM CDT) Vitamin B1 90 70 - 180 nmol/L [facility] Comment: INTERPRETIVE INFORMATION: Vitamin B1, Whole Blood This assay measures the concentration of thiamine diphosphate (TDP), the primary active form of vitamin B1. Approximately 90 percent of vitamin B1 present in whole blood is TDP. Thiamine and thiamine monophosphate, which comprise the remaining 10 percent, are not measured. Test developed and characteristics determined by [employer]. See Compliance Statement B: [employer]/CS Performed by [employer], [address] [place] [address] [email or web address], Blade Hoff MD - Lab. Director Specimen Plasma specimen Performing Organization Address [facility] Phone Number [facility] [address] [place] [address] * Partial thromboplastin time, activated (03/22/2018 5:30 PM CDT) PTT 31.0 23.0 - 36.0 sec [facility] DEPARTMENT OF Comment: PATHOLOGY AND PTT therapeutic range for GENOMIC MEDICINE unfractionated heparin is 61.0-112.0 seconds which corresponds to Anti-Xa 0.3-0.7 U/ml. Specimen Blood Performing Organization Address [facility] [place] [address] PATHOLOGY AND GENOMIC MEDICINE * Prothrombin time with INR (03/22/2018 5:30 PM CDT) Only the most recent of 2 results within the time period is included. Prothrombin time 12.9 12.0 - 15.0 sec [facility] DEPARTMENT OF PATHOLOGY AND GENOMIC MEDICINE INR 1.0 [facility] DEPARTMENT OF Comment: PATHOLOGY AND The International Normalized [facility] Ratio (INR) is a therapeutic monitoring tool for patients who are stable on oral anticoagulant therapy. An INR of 2.0-3.0 is suggested for deep vein thrombosis/pulmonary embolism. Specimen Blood Performing Organization Address [facility] [place] [address] PATHOLOGY AND Astonish Results MEDICINE * Thyroid stimulating hormone (03/22/2018 5:30 PM CDT) TSH 1.42 0.27 - 4.20 uIU/mL [facility] DEPARTMENT OF PATHOLOGY AND GENOMIC MEDICINE Specimen Blood Performing Organization Address [facility] [place] [address] PATHOLOGY AND Astonish Results MEDICINE * Magnesium level (03/22/2018 5:30 PM CDT) Only the most recent of 3 results within the time period is included. Magnesium 2.3 1.6 - 2.6 mg/dL [facility] DEPARTMENT OF PATHOLOGY AND GENOMIC MEDICINE Specimen Blood Performing Organization Address [facility] Phone Number [address] [place] [address] PATHOLOGY AND GENOMIC MEDICINE * Hemoglobin A1c (03/22/2018 5:30 PM CDT) Only the most recent of 2 results within the time period is included. Hemoglobin A1C 7.2 (H) 4.0 - 6.0 % [facility] DEPARTMENT OF Comment: PATHOLOGY AND GENOMIC MEDICINE Less than 6% - Goal of therapy for Type II Diabetes Less than 7%-Goal of therapy for Type I Diabetes Less than 8%-Accepta ble control for Type I or Type II Diabetes Greater than 8%-Unacceptabl e control; action indicated. (ADA94) Specimen Blood Performing Organization Address City/[facility]/Zipcode Phone Number [facility] [address] [place] [address] PATHOLOGY AND GENOMIC MEDICINE * Vitamin B12 level (03/22/2018 5:30 PM CDT) Vitamin B12 645 211 - 946 pg/mL [facility] DEPARTMENT OF Comment: PATHOLOGY AND Significant overlap exists [facility] MEDICINE between normal and deficiency states. However, most patients with deficiencies will have Serum B12 <200 pg/mL. Specimen Serum Performing Organization Address City/State/Zipcode Phone Number [facility] DEPARTMENT OF [address] [place] [address] PATHOLOGY AND GENOMIC MEDICINE * Lipid panel (03/22/2018 5:30 PM CDT) Only the most recent of 2 results within the time period is included. Cholesterol 195 0 - 199 mg/dL [facility] DEPARTMENT OF PATHOLOGY AND GENOMIC MEDICINE Triglycerides 91 0 - 149 mg/dL [facility] DEPARTMENT OF PATHOLOGY AND GENOMIC MEDICINE HDL cholesterol 55 40 - 99,999 mg/dL [facility] DEPARTMENT OF PATHOLOGY AND GENOMIC MEDICINE LDL cholesterol 132 (H) 0 - 99 mg/dL [facility] DEPARTMENT OF PATHOLOGY AND GENOMIC MEDICINE Lipid panel See below [facility] DEPARTMENT OF interpretation Comment: PATHOLOGY AND Total [...] Blood Performing Organization Address City/State/Zipcode Phone Number [facility] [address] [place] [address] PATHOLOGY AND GENOMIC MEDICINE * CT Lumbar [...] or traumatic malalignment of the lumbar spine. [facility]-[id number] Procedure Note Interface, Radiology Results Incoming - 03/22/2018 9:25 PM CDT EXAMINATION: CT [...] or traumatic malalignment of the lumbar spine. [facility]-[id number] Performing Organization Address City/[facility]/Zipcode Phone Number [facility] [address] [place] [address] * Troponin (03/21/2018 9:40 PM CDT) Only the most recent of 3 results within the time period is included. Troponin <0.30 0.00 - 0.30 ng/mL [facility] DEPARTMENT OF Comment: PATHOLOGY AND 0.11 - 1.49 GENOMIC MEDICINE ng/mlMay indicate increased risk of acute coronary syndrome. >=1.5 ng/ml Consistent with acute myocardial infarction. The diagnostic value of a single normal or non-diagnostic result is questionable.Serial samples at 2-6 hour intervals are required to rule out acute myocardial injury. Specimen Plasma specimen Performing Organization Address [facility] Phone Number [facility] [address] [place] [address] PATHOLOGY AND GENOMIC MEDICINE * Myoglobin (03/21/2018 3:12 PM CDT) Myoglobin 261 (H) 21 - 72 ng/mL [facility] DEPARTMENT OF PATHOLOGY AND GENOMIC MEDICINE Specimen Plasma specimen Performing Organization Address [facility]/Zipcode Phone Number [facility] [address] [place] [address] PATHOLOGY AND GENOMIC MEDICINE * Surgical pathology request (02/11/2018 10:26 AM CDT) [facility] DEPARTMENT OF PATHOLOGY AND GENOMIC MEDICINE Surgical pathology report See link below for PDF Lab [facility] DEPARTMENT OF Report PATHOLOGY AND GENOMIC MEDICINE Result status This is Final Report to [facility] DEPARTMENT OF [id number] PATHOLOGY AND GENOMIC MEDICINE Performing Organization Address [facility]/Zipcode Phone Number [facility] [address] [address] PATHOLOGY AND GENOMIC MEDICINE * Ionized calcium (02/10/2018 3:45 AM CDT) Only the most recent of 2 results within the time period is included. pH 7.40 [facility] DEPARTMENT OF PATHOLOGY AND GENOMIC MEDICINE Ionized calcium 1.18 1.11 - 1.32 mmol/L [facility] OF PATHOLOGY AND GENOMIC MEDICINE Specimen Blood Performing Organization Address City/State/Zipcode Phone Number [place] [phone] [facility]. [address] [place] [phone] PATHOLOGY AND GENOMIC MEDICINE * Echocardiogram complete [...] 65%. No pericardial effusion Performing Organization Address [facility] Phone Number [facility] [address] [place] [address] * Beta hydroxybutyrate (02/09/2018 2:50 PM CDT) Beta hydroxybutyrate 0.13 0.02 - 0.27 mmol/L [facility] DEPARTMENT OF PATHOLOGY AND GENOMIC MEDICINE Specimen Serum Performing Organization Address [facility] Phone Number [address] [place] [address] PATHOLOGY AND GENOMIC MEDICINE * hCG qualitative, serum screen (02/09/2018 2:50 PM CDT) hCG qualitative, serum NegativeComment: Sensitivity: [facility] DEPARTMENT OF 10 mlUhCG/mL in Serum PATHOLOGY AND GENOMIC MEDICINE Specimen Blood Performing Organization Address [facility] Phone Number [address] [place] [address] PATHOLOGY AND GENOMIC MEDICINE * Creatine kinase, total (CPK) (02/09/2018 7:15 AM CDT) Creatine kinase 83 35 - 200 U/L [facility] DEPARTMENT OF PATHOLOGY AND GENOMIC MEDICINE Specimen Plasma specimen Performing Organization Address [facility] Phone Number [facility] DEPARTMENT [address] [place] [address] PATHOLOGY AND GENOMIC MEDICINE * CT Maxillofacial Wo Contrast (01/21/2018 [...] IMPRESSION:No acute fracture of the maxillofacial bones. [facility]-[id number] Procedure Note Interface, Radiology Results Incoming - [...] No acute fracture of the maxillofacial bones. [facility]-[id number] Performing Organization Address City/State/Zipcode Phone Number [facility] [address] [place] [address] * CT Abd/Pelvic External Study (11/22/2017 8:19 PM CDT) Narrative Performed At This exam was not acquired at a [facility] facility and has not been [facility] interpreted by a [employer] Provider.The exam was imported into our imaging system for comparisons purposes. Performing Organization Address City/State/Zipcode Phone Number [employer] [facility] [address] [place] [address] after 11/07/2017 Insurance Payer Benefit Subscriber ID Type Phone Address Plan / Group MEDICARE MEDICARE xxxxxxxxxx Medicare [place], [place] PART A [place] B MEDICAID MEDICAID xxxxxxxxx Medicaid Advance Directives Patient has advance care planning documents, and code status on file. For more i nformation, please contact: Jaciel Urbina [address] [place] [address] Date Inactivated Comments Code Status Date Activated 04/21/2017 7:21 PM Full Code 04/20/2017 5:51 AM Code Status decision reached by: Patient 04/07/2017 7:50 PM Full Code 03/30/2017 10:54 PM Code Status decision reached by: Patient
--- OUTSIDE RECORDS SUMMARY | 2018-11-08 16:45 | XMS REPORT | Clinical Summary ---
Author Author [facility]IA [facility] Address Unknown Phone Unavailable Care Team Providers [place] Worker Name Role Phone Marcia Westfall MD PCP [...] total) by mouth every 8 (eight) hours. 05/17/2018 Discontinued labetalol (NORMODYNE) 200 Take 200 [...] 3 days. Active Problems Problem Noted Date Hypertensive emergency without congestive heart failure 07/22/2018 ESRD (end stage renal disease) on dialysis 07/22/2018 Overview: Diabetic nephropathy Shortness of breath 05/17/2018 Crohn's disease of [...] Encounters Care Team Description Date Type Specialty Arturo Duke MD Braun, MD Ceasar Thompson, Puneet Knott MD Malignant hypertension (Primary Dx); Intractable vomiting with nausea, unspecified vomiting type; Intractable abdominal pain; Diabetic gastroparesis (HCC); Hypertensive emergency without congestive heart failure; Crohn's disease with complication, unspecified gastrointestinal tract location (HCC); Diabetic gastroparesis associated with type 1 diabetes mellitus (HCC); ESRD (end stage renal disease) on dialysis (HCC) 07/22/2018 Hospital Intensive Care - Encounter 07/23/2018 07/22/2018 Orders Only General Internal Medicine 07/22/2018 Travel 06/03/2018 Travel Marcia Westfall MD Hatfield, Landon Mark, MD Generalized abdominal pain (Primary Dx); Diabetic gastroparesis (HCC); Nausea; Non-intractable vomiting with nausea, unspecified vomiting type; Other secondary hypertension; 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) 06/02/2018 Hospital General Internal Medicine - Encounter 06/06/2018 06/02/2018 Travel Jarrett Nevarez MD Patel, Bhagwat Purushottam, MD Shortness of breath (Primary Dx); Hyperglycemia; [...] Hypertension, unspecified type 01/21/2018 Emergency Emergency Medicine after 11/07/2017 Immunizations Name Dates Previously Given [...] Vital Signs Time Taken Vital Sign Reading 07/23/2018 11:35 AM CARDIOPULMONARY TECHNOLOGIST CHIEF Blood Pressure 160/111 07/23/2018 11:35 AM CARDIOPULMONARY TECHNOLOGIST CHIEF Pulse 116 07/23/2018 11:35 AM CARDIOPULMONARY TECHNOLOGIST CHIEF Temperature 36.9 C (98.4 F) 07/23/2018 11:35 AM CARDIOPULMONARY TECHNOLOGIST CHIEF Respiratory Rate 16 07/23/2018 11:35 AM CARDIOPULMONARY TECHNOLOGIST CHIEF Oxygen Saturation 98% 05/24/2018 7:57 AM CARDIOPULMONARY TECHNOLOGIST CHIEF Inhaled Oxygen 21% Concentration 07/23/2018 6:20 AM CARDIOPULMONARY TECHNOLOGIST CHIEF Weight 53.2 kg (117 lb 4.6 oz) 07/22/2018 11:00 PM CARDIOPULMONARY TECHNOLOGIST CHIEF Height 157.5 cm (5' 2") 07/23/2018 6:20 AM CARDIOPULMONARY TECHNOLOGIST CHIEF Body Mass Index 21.45 Plan of Treatment Health Maintenance Due Date Last Done Comments INFLUENZA VACCINE 04/18/2018 Procedures Comments Procedure Name Priority Date/Time Associated Diagnosis TRANSFUSE LEUKO-REDUCED Routine 08/25/2018 RED BLOOD CELLS 5:21 PM CARDIOPULMONARY TECHNOLOGIST CHIEF TRANSFUSE LEUKO-REDUCED Routine 08/25/2018 RED BLOOD CELLS 5:21 PM CARDIOPULMONARY TECHNOLOGIST CHIEF RHYTHM STRIP - SCAN 08/12/2018 9:10 AM CARDIOPULMONARY TECHNOLOGIST CHIEF HEMODIALYSIS INPATIENT Routine 07/23/2018 12:06 PM CARDIOPULMONARY TECHNOLOGIST CHIEF POCT-GLUCOSE METER Routine 07/23/2018 11:31 AM CARDIOPULMONARY TECHNOLOGIST CHIEF HCG, QUANTITATIVE, Routine 07/23/2018 9:07 AM CARDIOPULMONARY TECHNOLOGIST CHIEF POCT-GLUCOSE METER Routine 07/23/2018 6:09 AM CARDIOPULMONARY TECHNOLOGIST CHIEF POCT-GLUCOSE METER Routine 07/23/2018 4:49 AM CARDIOPULMONARY TECHNOLOGIST CHIEF POCT-GLUCOSE METER Routine 07/23/2018 4:27 AM CARDIOPULMONARY TECHNOLOGIST CHIEF POTASSIUM Routine 07/23/2018 4:15 AM CARDIOPULMONARY TECHNOLOGIST CHIEF PHOSPHORUS Routine 07/23/2018 4:15 AM CARDIOPULMONARY TECHNOLOGIST CHIEF MAGNESIUM Routine 07/23/2018 4:15 AM CARDIOPULMONARY TECHNOLOGIST CHIEF COMPREHENSIVE METABOLIC Routine 07/23/2018 PANEL 4:15 AM CARDIOPULMONARY TECHNOLOGIST CHIEF CBC W/PLT COUNT & AUTO Routine 07/23/2018 DIFFERENTIAL 3:52 AM CARDIOPULMONARY TECHNOLOGIST CHIEF KETONE, BLOOD Routine 07/23/2018 3:52 AM CARDIOPULMONARY TECHNOLOGIST CHIEF PROTHROMBIN TIME/INR Routine 07/23/2018 3:52 AM CARDIOPULMONARY TECHNOLOGIST CHIEF CBC W/PLT COUNT & AUTO Routine 07/23/2018 DIFFERENTIAL 3:52 AM CARDIOPULMONARY TECHNOLOGIST CHIEF POCT-GLUCOSE METER Routine 07/23/2018 12:25 AM CARDIOPULMONARY TECHNOLOGIST CHIEF HEPATITIS B SURFACE Routine 07/22/2018 ANTIGEN 11:52 PM CARDIOPULMONARY TECHNOLOGIST CHIEF CT ABDOMEN/PELVIS WITHOUT STAT 07/22/2018 IV CONTRAST 11:20 PM CARDIOPULMONARY TECHNOLOGIST CHIEF C-REACTIVE PROTEIN Routine 07/22/2018 10:52 PM CARDIOPULMONARY TECHNOLOGIST CHIEF HIV-1 ANTIGEN WITH Routine 07/22/2018 HIV-1/2 ANTIBODY 10:52 PM CARDIOPULMONARY TECHNOLOGIST CHIEF XR CHEST 1 VIEW STAT 07/22/2018 PORTABLE/BEDSIDE 9:40 PM CARDIOPULMONARY TECHNOLOGIST CHIEF LACTIC ACID, VENOUS Routine 07/22/2018 9:21 PM CARDIOPULMONARY TECHNOLOGIST CHIEF BLOOD CULTURE Routine 07/22/2018 9:21 PM CARDIOPULMONARY TECHNOLOGIST CHIEF HEMOGLOBIN A1C AP Routine 07/22/2018 8:19 PM CARDIOPULMONARY TECHNOLOGIST CHIEF KETONE, BLOOD Routine 07/22/2018 8:19 PM CARDIOPULMONARY TECHNOLOGIST CHIEF FIBRINOGEN Routine 07/22/2018 8:19 PM CARDIOPULMONARY TECHNOLOGIST CHIEF TROPONIN I STAT 07/22/2018 8:19 PM CARDIOPULMONARY TECHNOLOGIST CHIEF BLOOD CULTURE Routine 07/22/2018 8:19 PM CARDIOPULMONARY TECHNOLOGIST CHIEF ED ECG INTERPRETATION Routine 07/22/2018 8:12 PM CARDIOPULMONARY TECHNOLOGIST CHIEF CRITICAL CARE Routine 07/22/2018 8:12 PM CARDIOPULMONARY TECHNOLOGIST CHIEF ECG 12-LEAD STAT 07/22/2018 7:44 PM CARDIOPULMONARY TECHNOLOGIST CHIEF POCT-LACTIC ACID, VENOUS Routine 07/22/2018 2:50 PM CARDIOPULMONARY TECHNOLOGIST CHIEF CBC W/PLT COUNT & AUTO STAT 07/22/2018 DIFFERENTIAL 2:39 PM CARDIOPULMONARY TECHNOLOGIST CHIEF LIPASE STAT 07/22/2018 2:39 PM CARDIOPULMONARY TECHNOLOGIST CHIEF HEPATIC FUNCTION PANEL STAT 07/22/2018 2:39 PM CARDIOPULMONARY TECHNOLOGIST CHIEF BASIC METABOLIC PANEL (7) STAT 07/22/2018 2:39 PM CARDIOPULMONARY TECHNOLOGIST CHIEF CBC W/PLT COUNT & AUTO STAT 07/22/2018 DIFFERENTIAL 2:39 PM CARDIOPULMONARY TECHNOLOGIST CHIEF RHYTHM STRIP - SCAN 06/07/2018 3:00 PM CARDIOPULMONARY TECHNOLOGIST CHIEF POCT-GLUCOSE METER Routine 06/06/2018 3:47 PM CARDIOPULMONARY TECHNOLOGIST CHIEF POCT-GLUCOSE METER Routine 06/06/2018 10:50 AM CARDIOPULMONARY TECHNOLOGIST CHIEF POCT-GLUCOSE METER Routine 06/06/2018 6:37 AM CARDIOPULMONARY TECHNOLOGIST CHIEF CBC W/PLT COUNT & AUTO Routine 06/06/2018 DIFFERENTIAL 4:46 AM CARDIOPULMONARY TECHNOLOGIST CHIEF PHOSPHORUS Routine 06/06/2018 4:46 AM CARDIOPULMONARY TECHNOLOGIST CHIEF CBC W/PLT COUNT & AUTO Routine 06/06/2018 DIFFERENTIAL 4:46 AM CARDIOPULMONARY TECHNOLOGIST CHIEF COMPREHENSIVE METABOLIC Routine 06/06/2018 PANEL 4:46 AM CARDIOPULMONARY TECHNOLOGIST CHIEF POCT-GLUCOSE METER Routine 06/05/2018 8:39 PM CARDIOPULMONARY TECHNOLOGIST CHIEF POCT-GLUCOSE METER Routine 06/05/2018 4:36 PM CARDIOPULMONARY TECHNOLOGIST CHIEF POCT-GLUCOSE METER Routine 06/05/2018 11:34 AM CARDIOPULMONARY TECHNOLOGIST CHIEF POCT-GLUCOSE METER Routine 06/05/2018 5:41 AM CARDIOPULMONARY TECHNOLOGIST CHIEF POCT-GLUCOSE METER Routine 06/04/2018 9:00 PM CARDIOPULMONARY TECHNOLOGIST CHIEF POCT-GLUCOSE METER Routine 06/04/2018 6:45 PM CARDIOPULMONARY TECHNOLOGIST CHIEF POCT-GLUCOSE METER Routine 06/04/2018 1:22 PM CARDIOPULMONARY TECHNOLOGIST CHIEF POCT-GLUCOSE METER Routine 06/04/2018 12:20 PM CARDIOPULMONARY TECHNOLOGIST CHIEF POCT-GLUCOSE METER Routine 06/04/2018 11:54 AM CARDIOPULMONARY TECHNOLOGIST CHIEF HEMODIALYSIS INPATIENT Routine 06/04/2018 7:58 AM CARDIOPULMONARY TECHNOLOGIST CHIEF POCT-GLUCOSE METER Routine 06/04/2018 6:41 AM CARDIOPULMONARY TECHNOLOGIST CHIEF POCT-GLUCOSE METER Routine 06/04/2018 5:28 AM CARDIOPULMONARY TECHNOLOGIST CHIEF CBC W/PLT COUNT & AUTO Routine 06/04/2018 DIFFERENTIAL 5:22 AM CARDIOPULMONARY TECHNOLOGIST CHIEF PHOSPHORUS Routine 06/04/2018 5:22 AM CARDIOPULMONARY TECHNOLOGIST CHIEF COMPREHENSIVE METABOLIC Routine 06/04/2018 PANEL 5:22 AM CARDIOPULMONARY TECHNOLOGIST CHIEF CBC W/PLT COUNT & AUTO Routine 06/04/2018 DIFFERENTIAL 5:22 AM CARDIOPULMONARY TECHNOLOGIST CHIEF POCT-GLUCOSE METER Routine 06/03/2018 8:49 PM CARDIOPULMONARY TECHNOLOGIST CHIEF REPORT OF PROCEDURE - 06/03/2018 ENDOSCOPY SCAN 4:36 PM CARDIOPULMONARY TECHNOLOGIST CHIEF POCT-GLUCOSE METER Routine 06/03/2018 4:21 PM CARDIOPULMONARY TECHNOLOGIST CHIEF POCT-GLUCOSE METER Routine 06/03/2018 11:05 AM CARDIOPULMONARY TECHNOLOGIST CHIEF POCT-GLUCOSE METER Routine 06/03/2018 6:26 AM CARDIOPULMONARY TECHNOLOGIST CHIEF CT ABDOMEN/PELVIS WITH IV STAT 06/03/2018 CONTRAST 3:14 AM CARDIOPULMONARY TECHNOLOGIST CHIEF HCG, SERUM, QUALITATIVE STAT 06/03/2018 2:14 AM CARDIOPULMONARY TECHNOLOGIST CHIEF PT/APTT STAT 06/02/2018 11:39 PM CARDIOPULMONARY TECHNOLOGIST CHIEF LACTIC ACID, VENOUS STAT 06/02/2018 11:39 PM CARDIOPULMONARY TECHNOLOGIST CHIEF MAGNESIUM STAT 06/02/2018 11:38 PM CARDIOPULMONARY TECHNOLOGIST CHIEF TROPONIN I STAT 06/02/2018 11:38 PM CARDIOPULMONARY TECHNOLOGIST CHIEF LIPASE STAT 06/02/2018 11:38 PM CARDIOPULMONARY TECHNOLOGIST CHIEF COMPREHENSIVE METABOLIC STAT 06/02/2018 PANEL 11:38 PM CARDIOPULMONARY TECHNOLOGIST CHIEF CBC W/PLT COUNT & AUTO STAT 06/02/2018 DIFFERENTIAL 11:31 PM CARDIOPULMONARY TECHNOLOGIST CHIEF CBC W/PLT COUNT & AUTO STAT 06/02/2018 DIFFERENTIAL 11:31 PM CARDIOPULMONARY TECHNOLOGIST CHIEF RAPID INFLUENZA A&B STAT 06/02/2018 SCREEN 10:57 PM CARDIOPULMONARY TECHNOLOGIST CHIEF XR CHEST 1 VIEW STAT 06/02/2018 PORTABLE/BEDSIDE 9:00 PM CARDIOPULMONARY TECHNOLOGIST CHIEF ED ECG INTERPRETATION Routine 06/02/2018 8:42 PM CARDIOPULMONARY TECHNOLOGIST CHIEF RHYTHM STRIP - SCAN 05/26/2018 11:55 AM CARDIOPULMONARY TECHNOLOGIST CHIEF REPORT OF PROCEDURE - 05/26/2018 ENDOSCOPY SCAN 11:55 AM CARDIOPULMONARY TECHNOLOGIST CHIEF POCT-GLUCOSE METER Routine 05/24/2018 4:18 PM CARDIOPULMONARY TECHNOLOGIST CHIEF POCT-GLUCOSE METER Routine 05/24/2018 11:24 AM CARDIOPULMONARY TECHNOLOGIST CHIEF HEMODIALYSIS INPATIENT Routine 05/24/2018 8:22 AM CARDIOPULMONARY TECHNOLOGIST CHIEF POCT-GLUCOSE METER Routine 05/24/2018 5:27 AM CARDIOPULMONARY TECHNOLOGIST CHIEF POCT-GLUCOSE METER Routine 05/23/2018 8:36 PM CARDIOPULMONARY TECHNOLOGIST CHIEF POCT-GLUCOSE METER Routine 05/23/2018 4:03 PM CARDIOPULMONARY TECHNOLOGIST CHIEF POCT-GLUCOSE METER Routine 05/23/2018 11:21 AM CARDIOPULMONARY TECHNOLOGIST CHIEF POCT-GLUCOSE METER Routine 05/23/2018 6:43 AM CARDIOPULMONARY TECHNOLOGIST CHIEF CBC W/PLT COUNT & AUTO Routine 05/23/2018 DIFFERENTIAL 5:23 AM CARDIOPULMONARY TECHNOLOGIST CHIEF BASIC METABOLIC PANEL (7) Routine 05/23/2018 5:23 AM CARDIOPULMONARY TECHNOLOGIST CHIEF CBC W/PLT COUNT & AUTO Routine 05/23/2018 DIFFERENTIAL 5:23 AM CARDIOPULMONARY TECHNOLOGIST CHIEF POCT-GLUCOSE METER Routine 05/22/2018 8:50 PM CARDIOPULMONARY TECHNOLOGIST CHIEF POCT-GLUCOSE METER Routine 05/22/2018 4:47 PM CARDIOPULMONARY TECHNOLOGIST CHIEF POCT-GLUCOSE METER Routine 05/22/2018 11:49 AM CARDIOPULMONARY TECHNOLOGIST CHIEF POCT-GLUCOSE METER Routine 05/22/2018 6:10 AM CARDIOPULMONARY TECHNOLOGIST CHIEF CBC W/PLT COUNT & AUTO Routine 05/22/2018 DIFFERENTIAL 4:55 AM CARDIOPULMONARY TECHNOLOGIST CHIEF BASIC METABOLIC PANEL (7) Routine 05/22/2018 4:55 AM CARDIOPULMONARY TECHNOLOGIST CHIEF CBC W/PLT COUNT & AUTO Routine 05/22/2018 DIFFERENTIAL 4:55 AM CARDIOPULMONARY TECHNOLOGIST CHIEF POCT-GLUCOSE METER Routine 05/21/2018 9:04 PM CDT [...] STAT 05/17/2018 4:35 PM CDT LACTIC ACID, VENOUS STAT 05/17/2018 4:04 PM CDT BLOOD CULTURE STAT 05/17/2018 [...] 4 STAT 01/21/2018 VIEWS 1:36 PM CDT after 11/07/2017 Results * Transfuse Leuko-Red RBC (08/25/2018 5:21 PM CARDIOPULMONARY TECHNOLOGIST CHIEF) Only the most recent of 2 results within the time period is included. * RHYTHM STRIP - SCAN (08/12/2018 9:10 AM CARDIOPULMONARY TECHNOLOGIST CHIEF) Only the most recent of 3 results within the time period is included. Narrative Performed At * HEMODIALYSIS INPATIENT (07/23/2018 12:06 PM CARDIOPULMONARY TECHNOLOGIST CHIEF) Narrative Performed At Ethan Tran RN 07/23/2018 12:10 PM Lab Results Component Value Date WBC 5.3 07/23/2018 HGB 10.4 (L) 07/23/2018 HCT 34.0 (L) 07/23/2018 MCV 96.0 (H) 07/23/2018 PLT 227 07/23/2018 Lab Results Component Value Date GLUCOSE 143 (H) 07/23/2018 CALCIUM 10.5 (H) 07/23/2018 NA 141 07/23/2018 K 4.4 07/23/2018 K 4.4 07/23/2018 CO2 29 07/23/2018 CL 95 (L) 07/23/2018 BUN 50 (H) 07/23/2018 CREATININE 6.35 (H) 07/23/2018 Lab Results Component Value Date HEPBSAG Nonreactive 07/22/2018 Vitals: 07/23/18 1135 BP: (!) 160/111 Pulse: 116 Resp: 16 Temp: 98.4 F (36.9 C) SpO2: 98% HD x 3 hrs and 50 min per pt request . UF net 2.5L. Pt complained of cramps with 36 min left of treatment time, UF turned off. Pt alert and oriented x 4.. * POC-Glucose meter (07/23/2018 11:31 AM CARDIOPULMONARY TECHNOLOGIST CHIEF) Only the most recent of 66 results within the time period is included. POC-Glucose Meter 94Comment: TESTED AT [facility] 70 - 110 mg/dL [place] [id number] [facility] Specimen Blood Performing Organization Address City/State/Zipcode Phone Number [address] [address] [facility] * hCG, quantitative, (07/23/2018 9:07 AM CARDIOPULMONARY TECHNOLOGIST CHIEF) hCG Quant <1 0 - 10 mIU/mL [facility] Specimen Blood Narrative Performed At Non- Females: <10 mIU/mL [facility] Females: [facility] Gestation AgeReference Range(mIU/mL) 0.2-1 Week5-50 1-2 Eyadc27-439 2-3 Weeks 100-5,000 3-4 Weeks 500-10,000 4-5 Weeks 1,000-50,000 5-6 Weeks10,000-100,000 6-8 Weeks15,000-200,000 2-3 Months 10,000-100,000 Performing Organization Address City/[facility] Phone Number [address] * Potassium (07/23/2018 4:15 AM CARDIOPULMONARY TECHNOLOGIST CHIEF) Potassium 4.4 3.5 - 5.1 meq/L [facility] Specimen Blood Performing Organization Address City/[facility] Phone Number [address] * Phosphorus (07/23/2018 4:15 AM CARDIOPULMONARY TECHNOLOGIST CHIEF) Only the most recent of 6 results within the time period is included. Phosphorus 10.2 (HH) 2.3 - 4.7 mg/dL [facility] Specimen Blood Performing Organization Address City/[facility] Phone Number [address] * Magnesium (07/23/2018 4:15 AM CARDIOPULMONARY TECHNOLOGIST CHIEF) Only the most recent of 2 results within the time period is included. Magnesium 2.5 1.6 - 2.6 mg/dL [facility] Specimen Blood Performing Organization Address City/[facility] [place] [address] [phone] [place] [address] * Comprehensive metabolic panel (07/23/2018 4:15 AM CARDIOPULMONARY TECHNOLOGIST CHIEF) Only the most recent of 10 results within the time period is included. Protein, Total 7.5 6.0 - 8.3 gm/dL [facility] Albumin 4.2 3.5 - 5.0 g/dL [facility] Alkaline Phosphatase 60 40 - 150 U/L [facility] Total Bilirubin 0.5 0.2 - 1.2 mg/dL [facility] Sodium 141 136 - 145 meq/L [facility] Potassium 4.4 3.5 - 5.1 meq/L [facility] Chloride 95 (L) 98 - 107 meq/L [facility] CO2 29 22 - 29 meq/L [facility] BUN 50 (H) 7 - 21 mg/dL [facility] Creatinine 6.35 (H) 0.57 - 1.25 mg/dL [facility] Glucose 143 (H) 70 - 105 mg/dL [facility] Calcium 10.5 (H) 8.4 - 10.2 mg/dL [facility] AST 12 5 - 34 U/L [facility] ALT 9 6 - 55 U/L [facility] EGFR 10Comment: ESTIMATED GFR IS mL/min/1.73 sq m [facility] NOT ACCURATE CREATININE [facility] CLEARANCE IN PREDICTING GLOMERULAR FILTRATION RATE. ESTIMATED GFR IS NOT APPLICABLE FOR DIALYSIS PATIENTS. Specimen Blood Performing Organization Address City/State/Zipcode Phone Number [facility] [address] [place] [address] [facility] * CBC with platelet count + automated diff (07/23/2018 3:52 AM CARDIOPULMONARY TECHNOLOGIST CHIEF) Only the most recent of 16 results within the time period is included. WBC 5.3 3.5 - 10.5 K/L [facility] RBC 3.54 (L) 3.93 - 5.22 M/L [facility] Hemoglobin 10.4 (L) 11.2 - 15.7 GM/DL [facility] Hematocrit 34.0 (L) 34.1 - 44.9 % [facility] MCV 96.0 (H) 79.4 - 94.8 fL [facility] MCH 29.4 25.6 - 32.2 pg [facility] MCHC 30.6 (L) 32.2 - 35.5 GM/DL [facility] RDW 18.6 (H) 11.7 - 14.4 % [facility] Platelets 227 150 - 450 K/CU MM [facility] MPV 9.1 (L) 9.4 - 12.3 fL [facility] nRBC 0 0 - 0 /100 WBC [facility] % Neutros 62 % [facility] % Lymphs 25 % [facility] % Monos 11 % [facility] % Eos 0 % [facility] % Baso 1 % [facility] # Neutros 3.29 1.56 - 6.13 K/L [facility] # Lymphs 1.35 1.18 - 3.74 K/L [facility] # Monos 0.58 (H) 0.24 - 0.36 K/L [facility] # Eos 0.01 (L) 0.04 - 0.36 K/L [facility] # Baso 0.05 0.01 - 0.08 K/L [facility] Immature 1 0 - 1 % [facility] Granulocytes-[facility] Specimen Blood Performing Organization Address City/State/Zipcode Phone Number [address] * Prothrombin time/INR (07/23/2018 3:52 AM CARDIOPULMONARY TECHNOLOGIST CHIEF) Protime 14.1 11.7 - 14.7 seconds [facility] INR 1.1 <=5.9 [facility] Specimen Blood Narrative Performed At RECOMMENDED COUMADIN/WARFARIN INR THERAPY RANGES [facility] STANDARD DOSE: 2.0 - 3.0 Includes: PROPHYLAXIS for venous thrombosis, [facility] systemic embolization; TREATMENT for venous thrombosis and/or pulmonary embolus. HIGH RISK: Target INR is 2.5-3.5 for patients with mechanical heart valves. Performing Organization Address [facility] Phone Number [address] * Ketone, blood (07/23/2018 3:52 AM CARDIOPULMONARY TECHNOLOGIST CHIEF) Only the most recent of 3 results within the time period is included. Ketones, Blood 0.8 (H) <0.4 mmol/L [facility] Specimen Blood Performing Organization Address [facility] Phone Number [address] * Hepatitis B surface antigen (07/22/2018 11:52 PM CARDIOPULMONARY TECHNOLOGIST CHIEF) Only the most recent of 3 results within the time period is included. hepatitis B Surface Ag NON-REACTIVE Nonreactive [facility] Specimen Blood Performing Organization Address City/[facility] [place] [address] [phone] * CT abdomen/pelvis without iv contrast (07/22/2018 11:20 PM CARDIOPULMONARY TECHNOLOGIST CHIEF) Only the most recent of 3 results within the time period is included. Specimen Narrative Performed At FINAL REPORT [facility] TECHNIQUE: CT of the abdomen and pelvis WITHOUT intravenous contrast and WITHOUT oral contrast. Dose modulation, iterative reconstruction, and/or weight-based adjustment of the mA/kV was utilized to reduce the radiation dose to as low as reasonably achievable. INDICATION: Abdominal pain, gastroenteritis or colitis suspected. COMPARISON: CT from 06/03/2018. FINDINGS: ABSENCE OF INTRAVENOUS CONTRAST DECREASES SENSITIVITY FOR DETECTION OF FOCAL LESIONS AND VASCULAR PATHOLOGY. LOWER THORAX: There is likely a fissural lymph node along the left major fissure. HEPATOBILIARY: No focal hepatic lesions. Prior cholecystectomy. No biliary ductal dilatation. SPLEEN: Upper limit of normal spleen size. PANCREAS: No focal masses or ductal dilatation. ADRENALS: No adrenal nodules. 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 No hydronephrosis, stones, or exophytic masses. PELVIC ORGANS/BLADDER: Mild, unchanged diffuse bladder wall thickening. PERITONEUM/RETROPERITONEUM: No free air or fluid. LYMPH NODES: No lymphadenopathy. VESSELS: Prominent collateral vasculature of the subcutis tissues of the abdominal wall. GI TRACT: No distention or wall thickening. The appendix is normal. BONES AND SOFT TISSUES: Small right hip effusion. IMPRESSION: 1.No definite expiration on this CT for the abdominal pain. 2.The mild, diffuse bladder wall thickening is unchanged from prior examination. This could be due to chronic outlet obstruction or inflammation. However, consider urinalysis for further evaluation. 3.There is a small right hip effusion, a nonspecific finding. 4.Prominent subcutaneous collaterals in the abdominal wall. Signed: Sunny Brian MD Report Verified Date/Time:07/22/2018 23:32:54 Reading Location: [address] Consult Reading Room Procedure Note Interface, External Ris In - 07/22/2018 11:35 PM CARDIOPULMONARY TECHNOLOGIST CHIEF FINAL REPORT TECHNIQUE: CT of the abdomen and pelvis WITHOUT intravenous contrast and WITHOUT oral contrast. Dose modulation, iterative reconstruction, and/or weight-based adjustment of the mA/kV was utilized to reduce the radiation dose to as low as reasonably achievable. INDICATION: Abdominal pain, gastroenteritis or colitis suspected. COMPARISON: CT from 06/03/2018. FINDINGS: ABSENCE OF INTRAVENOUS CONTRAST DECREASES SENSITIVITY FOR DETECTION OF FOCAL LESIONS AND VASCULAR PATHOLOGY. LOWER THORAX: There is likely a fissural lymph node along the left major fissure. HEPATOBILIARY: No focal hepatic lesions. Prior cholecystectomy. No biliary ductal dilatation. SPLEEN: Upper limit of normal spleen size. PANCREAS: No focal masses or ductal dilatation. ADRENALS: No adrenal nodules. 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 No hydronephrosis, stones, or exophytic masses. PELVIC ORGANS/BLADDER: Mild, unchanged diffuse bladder wall thickening. PERITONEUM/RETROPERITONEUM: No free air or fluid. LYMPH NODES: No lymphadenopathy. VESSELS: Prominent collateral vasculature of the subcutis tissues of the abdominal wall. GI TRACT: No distention or wall thickening. The appendix is normal. BONES AND SOFT TISSUES: Small right hip effusion. IMPRESSION: 1.No definite expiration on this CT for the abdominal pain. 2.The mild, diffuse bladder wall thickening is unchanged from prior examination. This could be due to chronic outlet obstruction or inflammation. However, consider urinalysis for further evaluation. 3.There is a small right hip effusion, a nonspecific finding. 4.Prominent subcutaneous collaterals in the abdominal wall. Signed: Sunny Brian MD Report Verified Date/Time: 07/22/2018 23:32:54 Reading Location: [address] Consult Reading Room Performing Organization Address City/[facility] Phone Number [employer] * HIV-1 Antigen with HIV-1/2 Antibody (07/22/2018 10:52 PM CARDIOPULMONARY TECHNOLOGIST CHIEF) HIV-1 Antigen with HIV NON-REACTIVE Nonreactive [facility] 1&2 Antibody [facility] Specimen Blood Performing Organization Address City/[facility]/Zipcode Phone Number [address] [phone] [facility] * C-Reactive Protein (07/22/2018 10:52 PM CARDIOPULMONARY TECHNOLOGIST CHIEF) CRP 0.21 0.00 - 0.50 mg/dL [facility] Specimen Blood Performing Organization Address [facility]/Zipcode Phone Number [address] [address] [facility] [facility] * XR chest 1 view portable / bedside (07/22/2018 9:40 PM CARDIOPULMONARY TECHNOLOGIST CHIEF) Only the most recent of 3 results within the time period is included. Specimen Narrative Performed At FINAL REPORT [facility] Chest, one view. HISTORY: Nausea, emesis, abdominal pain COMPARISON: Radiograph from 06/02/2018 IMPRESSION: A right chest port has its tip over the mid SVC, unchanged. Cholecystectomy clips in right upper quadrant. The lungs are clear. No pleural effusion or pneumothorax. Mild haziness over the bases is likely due to overlying soft tissue. The cardiac silhouette is normal in size and unchanged. Signed: Sunny Brian MD Report Verified Date/Time:07/22/2018 22:04:33 Reading Location: [facility] C013 Consult Reading Room Procedure Note Interface, External Ris In - 07/22/2018 10:15 PM CARDIOPULMONARY TECHNOLOGIST CHIEF FINAL REPORT Chest, one view. HISTORY: Nausea, emesis, abdominal pain COMPARISON: Radiograph from 06/02/2018 IMPRESSION: A right chest port has its tip over the mid SVC, unchanged. Cholecystectomy clips in right upper quadrant. The lungs are clear. No pleural effusion or pneumothorax. Mild haziness over the bases is likely due to overlying soft tissue. The cardiac silhouette is normal in size and unchanged. Signed: Sunny Brian MD Report Verified Date/Time: 07/22/2018 22:04:33 Reading Location: [facility] C013 Consult Reading Room Performing Organization Address City/[facility] Phone Number [facility] * Lactic acid, venous, whole blood (07/22/2018 9:21 PM CARDIOPULMONARY TECHNOLOGIST CHIEF) Only the most recent of 3 results within the time period is included. Lactate, Venous 1.1Comment: Specimen slightly 0.5 - 2.2 mmol/L [facility] hemolyzed [facility] Specimen Blood Performing Organization Address City/[facility]/Zipcode Phone Number [place] [phone] [place] [address] [facility] * Blood culture (07/22/2018 9:21 PM CARDIOPULMONARY TECHNOLOGIST CHIEF) Only the most recent of 4 results within the time period is included. Result No growth in 5 days [facility] Specimen Blood Performing Organization Address City/[facility] Phone Number [address] [address] [phone] [place] [address] * Troponin I (07/22/2018 8:19 PM CARDIOPULMONARY TECHNOLOGIST CHIEF) Only the most recent of 2 results within the time period is included. Troponin I 0.05 (H) 0.00 - 0.03 ng/mL [facility] Specimen Blood Narrative Performed At Troponin I (TnI) levels must be interpreted in the context of the presenting [facility] symptoms and the clinical findings. Elevated TnI levels indicate myocardial [facility] damage, but are not specific for ischemic heart disease. Elevated TnI levels are seen in patients with other cardiac conditions (including myocarditis and congestive heart failure), and slight TnI elevations occur in patients with other conditions, including sepsis, renal failure, acidosis, acute neurological disease, and persistent tachyarrhythmia. Performing Organization Address [facility] Phone Number [address] * Fibrinogen (07/22/2018 8:19 PM CARDIOPULMONARY TECHNOLOGIST CHIEF) Fibrinogen 416 225 - 434 mg/dl [facility] Specimen Blood Performing Organization Address [facility] Phone Number [address] [address] [phone] [address] * Hemoglobin A1c (07/22/2018 8:19 PM CARDIOPULMONARY TECHNOLOGIST CHIEF) Hemoglobin A1C 5.3 4.3 - 6.1 % [facility] Specimen Blood Performing Organization Address [facility] Phone Number [address] [address] [facility] * ECG/EKG Interpretation (07/22/2018 8:12 PM CARDIOPULMONARY TECHNOLOGIST CHIEF) Only the most recent of 3 results within the time period is included. Narrative Performed At Arturo Duke MD 07/22/2018 10:27 PM ECG/EKG Interpretation Date/Time: 07/22/2018 7:44 PM Performed by: Arturo Duke MD Authorized by: Arturo Duke MD The ECG was interpreted by ED physician. This ECG was not compared with previous ECG(s).The ECG is interpreted as sinus tachycardia. Rate is tachycardic. Heart rate is 113 BPM. Conduction: conduction normal. ST segments normal. Clinical Impression: non-specific ECGECG reviewed and does not meet STEMI criteria. Patient tolerance: Patient tolerated the procedure well with no immediate complications * CRITICAL CARE (07/22/2018 8:12 PM CARDIOPULMONARY TECHNOLOGIST CHIEF) Narrative Performed At Arturo Duke MD 07/22/2018 10:27 PM Critical Care Performed by: Arturo Duke MD Authorized by: Arturo Duke MD Total critical care time: 45 minutes Critical care time was exclusive of separately billable procedures and treating other patients. Critical care was necessary to treat or prevent imminent or life-threatening deterioration of the following conditions: circulatory failure (svere malignant htn ). Critical care was time spent personally by me on the following activities: blood draw for specimens, development of treatment plan with patient or surrogate, discussions with consultants, evaluation of patient's response to treatment, examination of patient, obtaining history from patient or surrogate, ordering and performing treatments and interventions, ordering and review of laboratory studies, ordering and review of radiographic studies, pulse oximetry, re-evaluation of patient's condition and review of old charts. * ECG 12 lead (07/22/2018 7:44 PM CARDIOPULMONARY TECHNOLOGIST CHIEF) Specimen Narrative Performed At Ventricular Rate 113 BPM [facility] Atrial Rate 113 BPM P-R Interval 132 ms QRS Duration 76 ms Q-T Interval 346 ms QTC Calculation(Bazett) 474 ms P [place] 80 degrees R [place] 34 degrees T [place] 79 degrees Sinus tachycardia Within normal limits otherwise Confirmed by MD Peres Roberto ([id number]) on 07/24/2018 9:03:38 AM Procedure Note Interface, External Ris In - 07/24/2018 9:03 AM CARDIOPULMONARY TECHNOLOGIST CHIEF Ventricular Rate 113 BPM Atrial Rate 113 BPM P-R Interval 132 ms QRS Duration 76 ms Q-T Interval 346 ms QTC Calculation(Bazett) 474 ms P [place] 80 degrees R [place] 34 degrees T [place] 79 degrees Sinus tachycardia Within normal limits otherwise Confirmed by MD Peres Roberto ([id number]) on 07/24/2018 9:03:38 AM Performing Organization Address City/State/Zipcode Phone Number GE M[facility] * POC-Lactic Acid, Venous (07/22/2018 2:50 PM CARDIOPULMONARY TECHNOLOGIST CHIEF) POC-Lactic Acid, Venous 2.3 (H)Comment: TESTED AT 0.9 - 1.7 mmol/L [address] [address] Specimen Blood Performing Organization Address [facility] [place] [address] [phone] [place] [address] * Lipase (07/22/2018 2:39 PM CARDIOPULMONARY TECHNOLOGIST CHIEF) Only the most recent of 3 results within the time period is included. Lipase 16 8 - 78 U/L [facility] Specimen Blood Performing Organization Address [facility] [place] [address] [phone] [place] [address] * Hepatic function panel (07/22/2018 2:39 PM CARDIOPULMONARY TECHNOLOGIST CHIEF) Protein, Total 9.1 (H) 6.0 - 8.3 gm/dL [facility] Albumin 4.8 3.5 - 5.0 g/dL [facility] Total Bilirubin 0.6 0.2 - 1.2 mg/dL [facility] Bilirubin, Direct 0.2 0.1 - 0.5 mg/dL [facility] Alkaline Phosphatase 75 40 - 150 U/L [facility] AST 16 5 - 34 U/L [facility] ALT 10 6 - 55 U/L [facility] Specimen Blood Performing Organization Address [facility] [place] [address] [phone] [place] [address] * Basic Metabolic Panel (07/22/2018 2:39 PM CARDIOPULMONARY TECHNOLOGIST CHIEF) Only the most recent of 6 results within the time period is included. Sodium 138 136 - 145 meq/L [facility] Potassium 5.0 3.5 - 5.1 meq/L [facility] Chloride 89 (L) 98 - 107 meq/L [facility] CO2 30 (H) 22 - 29 meq/L [facility] BUN 42 (H) 7 - 21 mg/dL [facility] Creatinine 5.55 (H) 0.57 - 1.25 mg/dL [facility] Glucose 113 (H) 70 - 105 mg/dL [facility] Calcium 11.3 (H) 8.4 - 10.2 mg/dL [facility] EGFR 11Comment: ESTIMATED GFR IS mL/min/1.73 sq m [facility] NOT ACCURATE CREATININE [facility] CLEARANCE IN PREDICTING GLOMERULAR FILTRATION RATE. ESTIMATED GFR IS NOT APPLICABLE FOR DIALYSIS PATIENTS. Specimen Blood Performing Organization Address City/State/Zipcode Phone Number [facility] [address] [place] [address] [facility] * EKG-SCANNED (06/03/2018 4:36 PM CARDIOPULMONARY TECHNOLOGIST CHIEF) Only the most recent of 2 results within the time period is included. Narrative Performed At * CT abdomen/pelvis with IV contrast (06/03/2018 3:14 AM CARDIOPULMONARY TECHNOLOGIST CHIEF) Specimen Narrative Performed At FINAL REPORT [facility] CLINICAL HISTORY: Acute abdominal pain. FINDINGS: Multiple [...] MD Report Verified Date/Time:06/03/2018 03:21:21 Reading Location: [address] Reading Room Procedure Note Interface, External Ris In - 06/03/2018 3:23 AM CARDIOPULMONARY TECHNOLOGIST CHIEF FINAL REPORT CLINICAL HISTORY: Acute abdominal pain. [...] Report Verified Date/Time: 06/03/2018 03:21:21 Reading Location: [address] Reading Room Performing Organization Address City/[facility] Phone Number [facility] * hCG, serum, qualitative (06/03/2018 2:14 AM CARDIOPULMONARY TECHNOLOGIST CHIEF) Only the most recent of 2 results within the time period is included. Preg Test, Serum Negative [facility] Specimen Body Fluid Performing Organization Address [facility] Phone Number [facility] [address] [place] [address] * PT/aPTT (06/02/2018 11:39 PM CARDIOPULMONARY TECHNOLOGIST CHIEF) Protime 11.0 9.3 - 12.0 sec [facility] INR 1.0 <=5.9 [facility] PTT 30.1 23.0 - 35.0 sec [facility] Specimen Blood Narrative Performed At RECOMMENDED COUMADIN/WARFARIN INR THERAPY RANGES [facility] STANDARD DOSE: 2.0 - 3.0 Includes: PROPHYLAXIS for venous thrombosis, LABORATORY systemic embolization; TREATMENT for venous thrombosis and/or pulmonary embolus. HIGH RISK: Target INR is 2.5-3.5 for patients with mechanical heart valves. Final Information (Auto Output) Final Information (Auto Output) Final Information (Auto Output) Performing Organization Address [facility] Phone Number [facility] [address] [place] [address] * Rapid Influenza A&B Screen (06/02/2018 10:57 PM CARDIOPULMONARY TECHNOLOGIST CHIEF) Rapid Influenza A Antigen NEGATIVE LABORATORY FINDING Negative, Inconclusive [facility] Rapid influenza B Antigen NEGATIVE LABORATORY FINDING Negative, Inconclusive [facility] Specimen Nasal Performing Organization Address [facility] Phone Number [facility] [address] [place] [address] * CT chest without IV contrast (05/19/2018 9:53 PM CDT) Specimen Narrative Performed At FINAL REPORT [facility] DOSE REDUCTION: The examination was performed according [...] 2. Cardiomegaly. Trace pericardial effusion. Signed: Roly Ch MD Report Verified Date/Time:05/19/2018 22:12:17 Reading Location: [facility] Mammo Reading Room Procedure Note Interface, External [...] 2. Cardiomegaly. Trace pericardial effusion. Signed: Roly Ch MD Report Verified Date/Time: 05/19/2018 22:12:17 Reading Location: [facility] Mammo Reading Room Performing Organization Address City/State/Zipcode Phone Number [facility] * Blood gas, arterial (05/19/2018 8:04 PM CDT) pH, Arterial 7.42 7.35 - 7.45 [facility] pCO2, Arterial 41 35 - 45 mm Hg [facility] pO2, Arterial 94 (H) 80 - 90 mm Hg [facility] O2 Sat, Arterial 97.3 (H) 96.0 - 97.0 % [facility] HCO3, Arterial 26 21 - 29 mmol/L [facility] Base Excess, Arterial 1.0 -2.0 - 3.0 mmol/L [facility] Patient Temperature 37.0 [facility] FIO2 21 [facility] Specimen Blood, Arterial Performing Organization Address [facility] Phone Number [facility] [address] [place], [place] [phone] * Urinalysis w/Microscopic (05/17/2018 11:38 AM CDT) Color, UA Yellow [facility] Clarity, UA Slightly Cloudy [facility] Specific [place], UA 1.015 1.001 - 1.035 [facility] pH, UA 8.0 5.0 - 8.0 [facility] Protein, UA >=300 mg/dL (A) Negative [facility] Glucose, UA >=1000 mg/dL (A) Negative [facility] Ketones, UA Negative Negative [facility] Bilirubin, UA Negative Negative [facility] Blood, UA Trace (A) Negative [facility] Nitrite, UA Negative Negative [facility] Leukocytes, UA Negative Negative [facility] Urobilinogen, UA 0.2 0.2 - 1.0 mg/dL [facility] Bacteria, UA Many [facility] RBC, UA <5 /HPF [facility] WBC, UA 5-10 /HPF [facility] SQUAMOUS EPITHELIAL 5-10 /HPF [facility] Specimen Source [facility] Specimen Urine Performing Organization Address [facility] Phone Number [facility] [address] [place], [place] [phone] * ECHOCARDIOGRAM REPORT - SCAN (03/26/2018 12:20 PM CDT) Narrative Performed At * Ferritin (03/04/2018 5:20 AM CDT) Ferritin 472 (H) 10 - 291 ng/mL [facility] Specimen Blood Performing Organization Address City/State/Zipcode Phone Number [facility] [address] [facility] [place] [address] * Iron, TIBC, % sat. (without ferritin) (03/04/2018 5:19 AM CDT) Iron 84 40 - 160 ug/dL [facility] TIBC 240 (L) 250 - 450 ug/dL [facility] Iron % Saturation 35 20 - 55 % [facility] Specimen Blood Performing Organization Address City/[facility]/Zipcode Phone Number [facility] [address] [place] [address] MEDICAL CENTER * 2D Echo W/Doppler(CW/PW/Color) (03/03/2018 1:04 PM CDT) Ejection Fraction [facility] ECHO HEARTLAB [facility] Specimen Narrative Performed At Transthoracic Echocardiography Report (TTE) [facility] ECHO HEARTLAB Demographics [facility] Patient NameMITCHELL, WHITNEYDate of Study 03/03/2018 SUKHDEEP SERRATO GenderFemale Visit [id number] RaceBlack Number [id number] Number Date of 1990 Referring Kimberly back 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 rpretinHaris back Procedure Type of [...] 2.47 cm Aorta Ao Root S of Aleax.: 2.5 cm Ascending Aorta: 2.1 cm Doppler/Quantitative [...] 03/03/2018 SUKHDEEP SERRATO Gender Female Visit Number [id number] Race Black Room Number [id number] Number Date of 1990 Referring Physician 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3 (H) <8.0 mIU/mL [facility] Specimen Blood Performing Organization Address [facility] Phone Number [facility] [address] [place] [address] [facility] * Blood gas, venous (03/01/2018 12:42 AM [...] [facility] Specimen Blood Performing Organization Address [facility] Phone Number [facility] [place] [address] [facility] [place] [address] * Manual Differential (03/01/2018 12:02 AM CDT) [...] [facility] Specimen Blood Performing Organization Address City/State/Zipcode Phone Number [facility] [place] [address] [facility] [place] [address] * XR mandible less than 4 views (01/21/2018 1:36 PM CDT) Specimen Narrative Performed At FINAL REPORT [facility] TECHNIQUE: Frontal view of the mandible dated 01/21/2018. HISTORY: Jaw pain. COMPARISON: None IMPRESSION: The patient was unable to perform the additional images. No fracture seen on this image provided. Bones are normal in density. No radiodense foreign body or subcutaneous emphysema seen. Signed: Raheem James MD Report Verified Date/Time:01/21/2018 13:44:32 Reading Location: [facility] Radiology Reading Room Procedure Note Interface, [...] Report Verified Date/Time: 01/21/2018 13:44:32 Reading Location: [facility] Radiology Reading Room Performing Organization Address City/State/Zipcode Phone Number [facility] after 11/07/2017 Insurance Payer Benefit Subscriber ID Type Phone Address Plan / Group MEDICARE MEDICARE A xxxxxxxxxxx Medicare B MEDICAID MEDICAID xxxxxxxxx Medicaid OF [place] Advance Directives For more information, please contact: [facility] [address] [place] [address] Date Inactivated Comments Code Status Date Activated Full Code 07/22/2018 7:28 PM This code status was determined by: Patient 07/22/2018 1:38 PM Full Code 06/03/2018 4:18 AM This code [...]
== END 2018-11-08 17:39 | disposition home or self-care (01) ==
LOC: FSED 16:40
DX: R11.2 Nausea with vomiting, unspecified (principal); R10.84 Generalized abdominal pain; E10.9 Type 1 diabetes mellitus without complications; N28.89 Other specified disorders of kidney and ureter; N18.6 End stage renal disease; Z99.2 Dependence on renal dialysis
CPT/HCPCS: 99282

== ENCOUNTER 2019-02-07 19:08 | Inpatient (IN) | payer MEDICARE ==
[~2019-02-07] VITALS: Ht 157.5 cm; Wt 56.8 kg
--- OUTSIDE RECORDS SUMMARY | 2019-02-07 19:12 | XMS REPORT | Clinical Summary ---
Author Author [facility] Organization [facility] Address Unknown Phone Unavailable Care Team Providers Care Damage Prevention Coordinator Name Role Phone Asked, No Pcp PCP [...] 0 0.3 mg/24 hr on the skin 9 once a week. Note: Every Wednesday Active insulin lispro (HumaLOG) Inject 10 0 [...] clonIDINE Place 1 patch 4 patch 0 ([id number]) 0.2 (0.2 mg 8 mg/24 hr total) [...] tablet mouth 3 (three) times a day. 11/22/2018 Discontinued insulin detemir U-100 Inject 30 0 (LEVEMIR) 100 unit/mL Units under injection the skin 2 (two) times a day. 04/17/2018 promethazine (PHENERGAN) Take [...] or vomiting for up to 5 days. 12/22/2018 labetalol (NORMODYNE) 300 Take 1 tablet 60 tablet 3 MG tablet (300 mg 9 total) by mouth every 12 (twelve) hours for 30 days. 12/22/2018 sevelamer (RENVELA) 800 Take 1 tablet 90 tablet 5 mg tablet (800 mg 9 total) by mouth 3 (three) times a day with meals for 30 days. 12/22/2018 insulin detemir U-100 Inject 15 9 mL 0 (LEVEMIR) 100 unit/mL Units under 9 injection the skin 2 (two) times a day for 30 days. Active Problems Problem Noted Date Exacerbation of Crohn's disease without complication 07/24/2018 Gastroenteritis 06/25/2018 Gastroparesis due to DM 04/01/2018 Accelerated hypertension 02/09/2018 Pain of upper abdomen 02/09/2018 Overview: Added automatically from request for surgery [id number] Hyperglycemia 06/22/2017 High anion gap metabolic acidosis [...] Encounters Care Team Description Date Type Specialty Marcia Westfall MD Gastroparesis (Primary Dx) 11/13/2018 [facility] General Internal Medicine - Encounter 11/22/2018 Ascencion Vickers DO Joglekar, Swati, MD Patel, Amitkumar Natvarlal, MD Exacerbation of Crohn's disease without complication (HCC) (Primary Dx); Gastroparesis; Non-intractable vomiting with nausea, unspecified vomiting type; Cystitis; Intractable abdominal pain 07/23/2018 Emergency General Surgery - 07/24/2018 Marcia Westfall MD Gastroenteritis (Primary Dx); Type 1 diabetes mellitus with hyperosmolarity without nonketotic hyperglycemic hyperosmolar coma (HCC); ESRD (end stage renal disease) (HCC) 06/25/2018 [facility] General Internal Medicine - Encounter 06/29/2018 Doris Jones III, MD Patel, Bhagwat Purushottam, MD Abdominal pain, unspecified abdominal location (Primary Dx); Intractable vomiting with nausea, unspecified vomiting type; Dehydration 04/01/2018 [facility] General Internal Medicine - Encounter 04/07/2018 Marcia Westfall MD Weakness (Primary Dx); Gastroparesis 03/19/2018 [facility] General Internal Medicine - Encounter 03/30/2018 Chava Guillen CRNA 02/11/2018 Anesthesia Gastroenterology Event [facility], Akash Teixeira MD COLONOSCOPY WITH BIOPSY 02/11/2018 Surgery Gastroenterology Tona Wiseman MD Pain of upper abdomen (Primary Dx) 02/09/2018 [facility] General Internal Medicine - Encounter 02/11/2018 SamEloina Lisa 02/09/2018 Orders Only Route Contractor after 02/06/2018 Immunizations Name Dates Previously Given Next Due [...] Vital Signs Time Taken Vital Sign Reading 11/22/2018 11:15 AM CDT Blood Pressure 132/80 11/22/2018 11:30 AM CDT Pulse 100 11/22/2018 11:15 AM CDT Temperature 36.7 C (98.1 F) 11/22/2018 11:15 AM CDT Respiratory Rate 16 11/22/2018 11:15 AM CDT Oxygen Saturation 100% - Inhaled Oxygen - Concentration 11/22/2018 4:37 AM CDT Weight 54.8 kg (120 lb 12.8 oz) 11/13/2018 6:14 AM CDT Height 157.5 cm (5' 2") 11/13/2018 6:14 AM CDT Body Mass Index 22.09 Plan of Treatment Health Maintenance Due Date Last Done Comments DIABETIC RETINAL EYE EXAM 1991 DIABETIC FOOT EXAM 2001 URINE MICROALBUMIN 2001 INFLUENZA VACCINE 02/16/2019 03/30/2018, 04/07/2017, 04/07/2017 Procedures Comments Procedure Name Priority Date/Time Associated Diagnosis POC GLUCOSE Routine 11/22/2018 11:14 AM CDT ESTIMATED GFR Routine 11/22/2018 7:10 AM CDT PHOSPHORUS LEVEL Routine 11/22/2018 7:10 AM CDT COMPREHENSIVE METABOLIC Routine 11/22/2018 PANEL 7:10 AM CDT HC COMPLETE BLD COUNT Routine 11/22/2018 W/AUTO DIFF 7:10 AM CDT POC GLUCOSE Routine 11/21/2018 8:05 PM CDT POC GLUCOSE Routine 11/21/2018 3:55 PM CDT POC GLUCOSE Routine 11/21/2018 12:09 PM CDT HEMODIALYSIS Routine 11/21/2018 11:38 AM CDT POC GLUCOSE Routine 11/21/2018 7:59 AM CDT POC GLUCOSE Routine 11/20/2018 8:49 PM CDT POC GLUCOSE Routine 11/20/2018 4:13 PM CDT POC GLUCOSE Routine 11/20/2018 11:45 AM CDT POC GLUCOSE Routine 11/20/2018 9:09 AM CDT POC GLUCOSE Routine 11/20/2018 8:15 AM CDT POC GLUCOSE Routine 11/20/2018 7:46 AM CDT POC GLUCOSE Routine 11/19/2018 9:29 PM CDT POC GLUCOSE Routine 11/19/2018 4:24 PM CDT POC GLUCOSE Routine 11/19/2018 11:16 AM CDT HEMODIALYSIS Routine 11/19/2018 8:53 AM CDT POC GLUCOSE Routine 11/19/2018 7:14 AM CDT ESTIMATED GFR Routine 11/19/2018 6:15 AM CDT HC COMPLETE BLD COUNT Routine 11/19/2018 W/AUTO DIFF 6:15 AM CDT BASIC METABOLIC PANEL Routine 11/19/2018 6:15 AM CDT POC GLUCOSE Routine 11/18/2018 8:52 PM CDT POC GLUCOSE Routine 11/18/2018 3:51 PM CDT POC GLUCOSE Routine 11/18/2018 1:31 PM CDT POC GLUCOSE Routine 11/18/2018 11:48 AM CDT POC GLUCOSE Routine 11/18/2018 7:28 AM CDT POC GLUCOSE Routine 11/17/2018 9:57 PM CDT POC GLUCOSE Routine 11/17/2018 8:55 PM CDT POC GLUCOSE Routine 11/17/2018 3:34 PM CDT POC GLUCOSE Routine 11/17/2018 11:07 AM CDT ESTIMATED GFR Routine 11/17/2018 7:00 AM CDT HC COMPLETE BLD COUNT Routine 11/17/2018 W/AUTO DIFF 7:00 AM CDT BASIC METABOLIC PANEL Routine 11/17/2018 7:00 AM CDT POC GLUCOSE Routine 11/16/2018 9:07 PM CDT POC GLUCOSE Routine 11/16/2018 4:50 PM CDT POC GLUCOSE Routine 11/16/2018 11:16 AM CDT POC GLUCOSE Routine 11/16/2018 7:44 AM CDT HEMODIALYSIS Routine 11/16/2018 7:30 AM CDT ESTIMATED GFR Routine 11/16/2018 5:30 AM CDT PHOSPHORUS LEVEL Routine 11/16/2018 5:30 AM CDT COMPREHENSIVE METABOLIC Routine 11/16/2018 PANEL 5:30 AM CDT HC COMPLETE BLD COUNT Routine 11/16/2018 W/AUTO DIFF 5:30 AM CDT POC GLUCOSE Routine 11/15/2018 8:33 PM CDT POC GLUCOSE Routine 11/15/2018 4:57 PM CDT POC GLUCOSE Routine 11/15/2018 12:09 PM CDT HEPATITIS B SURFACE Routine 11/15/2018 ANTIGEN 7:00 AM CDT ESTIMATED GFR Routine 11/15/2018 4:40 AM CDT PHOSPHORUS LEVEL Routine 11/15/2018 4:40 AM CDT COMPREHENSIVE METABOLIC Routine 11/15/2018 PANEL 4:40 AM CDT HC COMPLETE BLD COUNT Routine 11/15/2018 W/AUTO DIFF 4:40 AM CDT POC GLUCOSE Routine 11/14/2018 9:14 PM CDT POC GLUCOSE Routine 11/14/2018 4:18 PM CDT POC GLUCOSE Routine 11/14/2018 12:29 PM CDT HEMODIALYSIS Routine 11/14/2018 7:55 AM CDT POC GLUCOSE Routine 11/14/2018 7:42 AM CDT ESTIMATED GFR Routine 11/14/2018 4:40 AM CDT PHOSPHORUS LEVEL Routine 11/14/2018 4:40 AM CDT COMPREHENSIVE METABOLIC Routine 11/14/2018 PANEL 4:40 AM CDT HC COMPLETE BLD COUNT Routine 11/14/2018 W/AUTO DIFF 4:40 AM CDT POC GLUCOSE Routine 11/13/2018 9:29 PM CDT POC GLUCOSE Routine 11/13/2018 4:[address] ABD/PELVIC EXTERNAL Routine 11/13/2018 STUDY 3:47 PM CDT POC GLUCOSE Routine 11/13/2018 12:42 PM CDT POC GLUCOSE Routine 11/13/2018 7:39 AM CDT POC GLUCOSE Routine 07/24/2018 4:13 PM FISH BAILER POC GLUCOSE Routine 07/24/2018 12:53 PM FISH BAILER POC GLUCOSE Routine 07/24/2018 8:32 AM FISH BAILER POC GLUCOSE Routine 07/24/2018 6:[address] ABDOMEN PELVIS WO STAT 07/23/2018 CONTRAST 9:36 PM FISH BAILER LACTIC ACID, I-STAT Timed 07/23/2018 8:16 PM FISH BAILER MANUAL DIFFERENTIAL STAT 07/23/2018 7:35 PM FISH BAILER ESTIMATED GFR STAT 07/23/2018 7:35 PM FISH BAILER AMYLASE LEVEL STAT 07/23/2018 7:35 PM FISH BAILER COMPREHENSIVE METABOLIC STAT 07/23/2018 PANEL 7:35 PM FISH BAILER CBC WITH PLATELET AND STAT 07/23/2018 DIFFERENTIAL 7:35 PM FISH BAILER POC GLUCOSE Routine 06/29/2018 11:10 AM FISH BAILER POC GLUCOSE Routine 06/29/2018 7:27 AM FISH BAILER ESTIMATED GFR Routine 06/29/2018 5:45 AM FISH BAILER HC COMPLETE BLD COUNT Routine 06/29/2018 W/AUTO DIFF 5:45 AM FISH BAILER BASIC METABOLIC PANEL Routine 06/29/2018 5:45 AM FISH BAILER POC GLUCOSE Routine 06/28/2018 9:34 PM FISH BAILER POC GLUCOSE Routine 06/28/2018 5:55 PM FISH BAILER POC GLUCOSE Routine 06/28/2018 2:32 PM FISH BAILER HEPATITIS B SURFACE Routine 06/28/2018 ANTIGEN 10:20 AM FISH BAILER POC GLUCOSE Routine 06/28/2018 6:01 AM FISH BAILER ESTIMATED GFR Routine 06/28/2018 6:00 AM FISH BAILER PHOSPHORUS LEVEL Routine 06/28/2018 6:00 AM FISH BAILER COMPREHENSIVE METABOLIC Routine 06/28/2018 PANEL 6:00 AM FISH BAILER HC COMPLETE BLD COUNT Routine 06/28/2018 W/AUTO DIFF 6:00 AM FISH BAILER POC GLUCOSE Routine 06/27/2018 10:02 PM FISH BAILER HEMODIALYSIS Routine 06/27/2018 6:54 PM FISH BAILER POC GLUCOSE Routine 06/27/2018 4:34 PM FISH BAILER POC GLUCOSE Routine 06/27/2018 11:17 AM FISH BAILER POC GLUCOSE Routine 06/27/2018 6:08 AM FISH BAILER ESTIMATED GFR Routine 06/27/2018 6:00 AM FISH BAILER PHOSPHORUS LEVEL Routine 06/27/2018 6:00 AM FISH BAILER COMPREHENSIVE METABOLIC Routine 06/27/2018 PANEL 6:00 AM FISH BAILER HC COMPLETE BLD COUNT Routine 06/27/2018 W/AUTO DIFF 6:00 AM FISH BAILER POC GLUCOSE Routine 06/26/2018 9:18 PM FISH BAILER POC GLUCOSE Routine 06/26/2018 4:41 PM FISH BAILER POC GLUCOSE Routine 06/26/2018 11:42 AM FISH BAILER ESTIMATED GFR Routine 06/26/2018 11:00 AM FISH BAILER COMPREHENSIVE METABOLIC Routine 06/26/2018 PANEL 11:00 AM FISH BAILER HC COMPLETE BLD COUNT Routine 06/26/2018 W/AUTO DIFF 11:00 AM FISH BAILER POC GLUCOSE Routine 06/26/2018 6:29 AM FISH BAILER BLOOD CULTURE, AEROBIC & Routine 06/26/2018 ANAEROBIC 2:50 AM FISH BAILER POC GLUCOSE Routine 04/07/2018 11:20 AM CDT [...] MMODE SPECTRAL 3:10 PM CDT COLOR DOPPLER ([id number]) HCG QUALITATIVE, SERUM Routine 02/09/2018 SCREEN 2:50 [...] POC GLUCOSE Routine 02/09/2018 4:11 AM CDT after 02/06/2018 Results * POC glucose (11/22/2018 11:14 AM CDT) Only the most recent of 140 results within the time period is included. POC glucose 172 (H) 65 - 99 mg/dL [facility] Comment: [employer] SUGAR Meter ID: [id number] [facility] Windows Systems Administrator: Vicente Maloney Specimen Performing Organization Address City/State/Zipcode Phone Number [facility] [address] [place] [address] PATHOLOGY AND GENOMIC MEDICINE [address] * Estimated GFR (11/22/2018 7:10 AM CDT) Only the most recent of 16 results within the time period is included. [facility] Estimated GFR 8 (A) mL/min/1.73 m2 [facility] Comment: [facility] rpretation G1 >=90 Normal or high G2 60-89Mildly decreased [id number] Mildly to moderately decreased D4y05-89 Moderately to severely decreased G4 15-29Severely decreased G5 <15Kidney failure The eGFR was calculated using the Chronic Kidney Disease Epidemiology Collaboration (CKD-EPI) equation. Interpretation is based on recommendations of the National Kidney Foundation-Kidney Disease Outcomes Quality Initiative (NKF-KDOQI) published in 2014. Specimen Plasma specimen Performing Organization Address City/State/Zipcode Phone Number [facility] [address] PATHOLOGY AND GENOMIC MEDICINE [address] * CBC with platelet and differential (11/22/2018 7:10 AM CDT) Only the most recent of 26 results within the time period is included. [facility] WBC 5.3 4.5 - 11.0 k/uL [facility] RBC 3.11 (L) 4.20 - 5.50 m/uL [facility] HGB 9.1 (L) 12.0 - 16.0 g/dL [facility] HCT 29.4 (L) 37.0 - 47.0 % [facility] MCV 94.5 82.0 - 100.[address] [facility] MCH 29.3 27.0 - 34.[address] [facility] MCHC 31.0 31.0 - 37.0 g/dL [facility] RDW - SD 56.7 (H) 37.0 - 55.[address] [facility] MPV 9.9 6.9 - 11.[address] [facility] Platelet count 222 150 - 400 K/uL [facility] Nucleated RBC 0.00 /[address] [facility] Neutrophils 59.0 39.0 - 69.0 % [facility] Lymphocytes 29.3 25.0 - 45.0 % [facility] Monocytes 6.2 0.0 - 10.0 % [facility] Eosinophils 4.0 0.0 - 5.0 % [facility] Basophils 0.4 0.0 - 1.0 % [facility] Immature 1.1 (H) 0.0 - 1.0 % [facility] granulocytes [facility] Specimen Blood Performing Organization Address City/State/Zipcode Phone Number [facility] [place] [id number] [place] [address] PATHOLOGY AND GENOMIC MEDICINE [address] * Phosphorus level (11/22/2018 7:10 AM CDT) Only the most recent of 14 results within the time period is included. Phosphorus 6.0 (H) 2.4 - 4.5 mg/dL [facility] Specimen Plasma specimen Performing Organization Address City/State/Zipcode Phone Number [facility] DEPARTMENT OF [address] [place] [address] PATHOLOGY AND GENOMIC MEDICINE [address] * Comprehensive metabolic panel (11/22/2018 7:10 AM CDT) Only the most recent of 16 results within the time period is included. Sodium 137 135 - 148 mEq/L [facility] Potassium 4.3 3.5 - 5.0 mEq/L [facility] Chloride 98 98 - 112 mEq/L [facility] CO2 24 24 - 31 mEq/L [facility] Anion gap 15@ANIO 7 - 15 mEq/L [facility] BUN 57 (H) 6 - 20 mg/dL [facility] Creatinine 7.34 (H) 0.50 - 0.90 mg/dL [facility] Glucose 60 (L) 65 - 99 mg/dL [facility] Calcium 9.6 8.3 - 10.2 mg/dL [facility] Protein 6.7 6.3 - 8.3 g/dL [facility] Albumin 3.8 3.5 - 5.0 g/dL [facility] A/G ratio 1.3 0.7 - 3.8 [facility] Alkaline 77 35 - 104 U/L [facility] phosphatase [facility] AST <5 (L) 10 - 35 U/L [facility] ALT 6 5 - 50 U/L [facility] Total bilirubin <0.2 0.2 - 1.2 mg/dL [facility] Specimen Plasma specimen Performing Organization Address [facility] Phone Number [facility] [address] PATHOLOGY AND GENOMIC MEDICINE [address] * Basic metabolic panel (11/19/2018 6:15 AM CDT) Only the most recent of 11 results within the time period is included. Sodium 133 (L) 135 - 148 mEq/L [facility] Potassium 4.0 3.5 - 5.0 mEq/L [facility] Chloride 89 (L) 98 - 112 mEq/L [facility] CO2 29 24 - 31 mEq/L [facility] Anion gap 15@ANIO 7 - 15 mEq/L [facility] BUN 31 (H) 6 - 20 mg/dL [facility] Creatinine 5.99 (H) 0.50 - 0.90 mg/dL [facility] Glucose 212 (H) 65 - 99 mg/dL [facility] Calcium 9.7 8.3 - 10.2 mg/dL [facility] Specimen Plasma specimen Performing Organization Address [facility] Phone Number [facility] [address] PATHOLOGY AND GENOMIC MEDICINE [address] * Hepatitis B surface antigen (11/15/2018 7:00 AM CDT) Only the most recent of 4 results within the time period is included. Hepatitis B Non-reactive Non-reactive [facility] Ag [facility] Specimen Blood Performing Organization Address City/State/Zipcode Phone Number [facility] [address] [facility] [address] [facility] [address] [facility] [address] [facility] * CT Abd/Pelvic External Study (11/13/2018 3:47 PM CDT) Specimen Narrative Performed At This exam was not acquired at a [facility] facility and has not been [facility] interpreted by a [facility] Provider.The exam was imported into our imaging system for comparisons purposes. Performing Organization Address City/State/Zipcode Phone Number [facility] [address] [place] [address] * CT Abdomen Pelvis Wo Contrast (07/23/2018 9:36 PM FISH BAILER) Specimen Narrative Performed At EXAMINATION:CT ABDOMEN PELVIS WO [...] suspicious for cystitis. Suggestion of fecal impaction. [facility]-[id number] Procedure Note Interface, Radiology Results Incoming - 07/23/2018 10:11 PM FISH BAILER EXAMINATION: CT ABDOMEN PELVIS WO CONTRAST CLINICAL [...] suspicious for cystitis. Suggestion of fecal impaction. [facility]-[id number] Performing Organization Address City/[facility]/Zipcode Phone Number [facility] [address] [place] [address] * Lactic acid, I-Stat (07/23/2018 8:16 PM FISH BAILER) Pathologist [facility] Lactic acid, 0.9 0.5 - 2.2 mmol/L [facility] I-Stat [facility] Specimen Plasma specimen Performing Organization Address City/[facility]/Zipcode Phone Number DEPARTMENT [address] [address] PATHOLOGY AND GENOMIC MEDICINE, [address] * Manual differential (07/23/2018 7:35 PM FISH BAILER) Only the most recent of 4 results within the time period is included. Manual PERFORMED [facility] differential [facility] Neutrophils 78.0 (H) 39.0 - 69.0 % [facility] Lymphocytes 19.0 (L) 25.0 - 45.0 % [facility] Monocytes 2.0 0.0 - 10.0 % [facility] Eosinophils 0.0 0.0 - 5.0 % [facility] Basophils 0.0 0.0 - 1.0 % [facility] Metamyelocytes 0 % [facility] Myelocytes 1 % [facility] Promyelocytes 0 % [facility] Platelet slide Carmen adequate [facility] Anisocytosis Moderate [facility] Polychromasia Moderate [facility] Tear drop cells Occasional [facility] Ovalocytes Moderate [facility] Specimen Performing Organization Address City/[facility] Phone Number [facility] [place] [address] PATHOLOGY AND GENOMIC MEDICINE [address] * Amylase level (07/23/2018 7:35 PM FISH BAILER) Only the most recent of 2 results within the time period is included. Pathologist [facility] Amylase 90 14 - 97 U/L [facility] Specimen Plasma specimen Performing Organization Address City/[facility] Cent[facility] [place] [address] PATHOLOGY AND GENOMIC MEDICINE[address] * Blood culture, aerobic & anaerobic (06/26/2018 2:50 AM FISH BAILER) Only the most recent of 5 results within the time period is included. Blood culture No growth after 5 days of [facility] isolate incubation. [facility] Comment: HOSPITAL Specimen Information Specimen Source: Blood Specimen Site: Line, port-a-cath Specimen Blood - Line, port-a-cath Performing Organization Address City/[facility]/Zipcode Phone Number [facility] [place] [address] PATHOLOGY AND GENOMIC MEDICINE [address] * Hepatitis B surface Ab, quantitative (04/07/2018 8:46 AM CDT) Only the most recent of 2 results within the time period is included. Pathologist [facility] Hepatitis B >1000.00 IU/L [facility] surface Ab Comment: The anti-HBs is greater than or [...] Cellular and Tissue-Based Products (HCT/P). Performed by [employer], [address] [place], [place] [id number] [email or web address], Blade Hoff MD - Lab. Director Specimen Serum Performing Organization Address City/[facility]/Zipcode Phone Number [facility] [address] [place] [address] * Hepatitis B surface antibody (04/07/2018 7:45 AM CDT) Only the most recent of 2 results within the time period is included. Pathologist [facility] Hepatitis B Reactive (A) Non-reactive [facility] DEPARTMENT surface Ab OF PATHOLOGY AND GENOMIC MEDICINE Specimen Blood Performing Organization Address City/State/Zipcode Phone Number [address] [address] PATHOLOGY AND GENOMIC MEDICINE * Lactic acid level, SEPSIS - Now and repeat 2x every 3 hours (04/01/2018 7:40 AM CDT) Only the most recent of 2 results within the time period is included. Pathologist [facility] Lactic acid 0.7 0.5 - 2.2 mmol/L [facility] DEPARTMENT OF PATHOLOGY AND GENOMIC MEDICINE Specimen Plasma specimen Performing Organization Address [facility] [place] [address] PATHOLOGY AND GENOMIC MEDICINE * Lipase level (04/01/2018 4:42 AM CDT) Lipase 25 13 - 60 U/L [facility] DEPARTMENT PATHOLOGY AND GENOMIC MEDICINE Specimen Plasma specimen Performing Organization Address [facility] [place] [address] PATHOLOGY AND GENOMIC MEDICINE * ECG ED Preliminary Interpretation - NOT AN ORDER (04/01/2018 4:16 AM CDT) Narrative Performed At Doris Jones III, MD 04/01/20182:51 PM ECG ED Preliminary Interpretation - Not an Order Performed by: DORIS JONES III Authorized by: DORIS JONES III ECG reviewed by ED Physician in the absence of a automation mechanic: yes Interpretation: Interpretation: abnormal Quality: Tracing quality:Limited [...] within the time period is included. Ventricular 122 [facility] rate Atrial rate 122 [facility] KS interval 142 [facility] QRSD interval 80 [facility] QT interval 328 [facility] QTC interval 467 [facility] P axis 1 68 [facility] QRS axis 1 38 [facility] T wave axis 48 [facility] EKG impression Sinus tachycardia-Voltage [facility] MUSE criteria for left ventricular hypertrophy-Abnormal ECG-In automated comparison with ECG of 25-MAR-2018 17:26,-No significant change was found- Specimen Performing Organization Address [facility] Phone Number [facility] MUSE [address] [place] [address] * Estimated GFR (03/29/2018 5:45 AM CDT) Only the most recent of 11 results within the time period is included. Pathologist [facility] GFR Non Af Amer 6 (A) mL/min/1.73 m2 [facility] DEPARTMENT OF PATHOLOGY AND GENOMIC MEDICINE GFR Af Amer 7 (A) mL/min/1.73 m2 [facility] DEPART[facility] Comment: OF PATHOLOGY Chronic kidney disease: <60 AND GENOMIC mL/min/1.73m2 MEDICINE Kidney failure: <15 mL/min/1.73m2 The estimated GFR [...] specimen Performing Organization Address City/State/Zipcode Phone Number [place] [address] [place] [address] PATHOLOGY AND GENOMIC MEDICINE * Immunoglobulin A (03/24/2018 1:10 PM CDT) Pathologist [facility] IgA 248 70 - 400 mg/dL [facility] DEPARTMENT OF PATHOLOGY AND GENOMIC MEDICINE Specimen Plasma specimen Performing Organization Address City/State/Zipcode Phone Number [facility] DEPARTMENT OF [address] [place] [address] PATHOLOGY AND GENOMIC MEDICINE * Transfuse RBC (03/23/2018 5:34 PM CDT) Only the most recent of 2 results within the time period is included. * Copper level, serum (03/23/2018 2:28 PM CDT) Pathologist [facility] Copper 88 80 - 155 ug/dL [facility] Comment: INTERPRETIVE INFORMATION: Copper, Serum or [...] or malabsorption. See Compliance Statement B at [email or web address] Performed by [employer], [address] [place] [id number] [email or web address], Blade Hoff MD - Lab. Director Specimen Blood Performing Organization Address City/State/Zipcode Phone Number [facility] [address] [place] [address] * IR Lumbar Puncture by Radiology (03/23/2018 9:53 AM CDT) Specimen Narrative Performed At EXAMINATION: [facility] CL[facility]ICAL H[facility]: Peripheral Demyelinating Neuropathy COMPARISON:None TECHNIQUE: [...] fluoroscopic guided lumbar puncture as detailed above. [facility]-[id number] Procedure Note Hm Interface, Radiology Results Incoming [...] fluoroscopic guided lumbar puncture as detailed above. [facility]-[id number] Performing Organization Address City/State/Zipcode Phone Number [facility] [address] [place] [address] * IgG synthesis rate study (03/23/2018 9:45 AM CDT) IgG albumin 0.12 0.00 - 0.23 [facility] DEPARTMENT ratio, CSF OF PATHOLOGY AND GENOMIC MEDICINE IgG index, CSF 0.49 0.01 - 0.63 [facility] DEPARTMENT OF PATHOLOGY AND GENOMIC MEDICINE IgG synthetic 13.91 (H) -9.90 - 3.30 mg/day [facility] DEPARTMENT rate OF PATHOLOGY AND GENOMIC MEDICINE Q-albumin 53.57 (H) 2.00 - 6.00 [facility] DEPARTMENT ratio, CSF OF PATHOLOGY AND GENOMIC MEDICINE IgG, CSF 22.10 (H) 1.00 - 3.00 mg/dL [facility] DEPARTMENT OF PATHOLOGY AND GENOMIC MEDICINE Albumin, CSF 182.13 (H) 10.00 - 30.00 mg/dL [facility] DEPARTMENT OF PATHOLOGY AND GENOMIC MEDICINE IgG 834 700 - 1,600 mg/dL [facility] DEPARTMENT OF PATHOLOGY AND GENOMIC MEDICINE Albumin, S 3,400.0 (L) 3,640.0 - 5,304.0 [facility] DEPARTMENT mg/dL OF PATHOLOGY AND GENOMIC MEDICINE Specimen Serum Performing Organization Address City/[facility] Phone Number [facility] OF [address] [place] [address] PATHOLOGY AND GENOMIC MEDICINE * West Nile virus by PCR, CSF (03/23/2018 9:45 AM CDT) West Nile virus Not-Detected Not-Detected [facility] DEPARTMENT PCR, CSF OF PATHOLOGY AND [facility] MEDICINE West Nile virus See link below for PDF Lab [facility] DEPARTMENT PCR, CSF ReportComment: Case Number: OF PATHOLOGY [id number] AND GENOMIC MEDICINE Specimen Cerebrospinal fluid Performing Organization Address City/[facility] Centercode Phone Number [facility] DEPARTMENT OF [address] [place] [address] PATHOLOGY AND [facility] MEDICINE * West Nile virus antibody panel, CSF (03/23/2018 9:45 AM CDT) Pathologist Theodora West Nile IgG, 0.03 <=1.29 IV [facility] CSF Comment: INTERPRETIVE INFORMATION: West Nile Virus Ab [...] members of the Flaviviridae family, such as [place] encephalitis virus, show extensive cross-reactivity with West Nile virus, serologic testing specific for these species should be considered. The detection of antibodies to West Nile virus in cerebrospinal fluid may indicate central nervous system infection. However, consideration must be given to possible contamination by blood or transfer of serum antibodies across the blood-brain barrier. Test developed and characteristics determined by [employer]. See Compliance Statement B: [employer]/CS West Nile IgM, 0.01 <=0.89 IV [facility] CSF Comment: INTERPRETIVE INFORMATION: West Nile Virus Ab [...] members of the Flaviviridae family, such as [place] encephalitis virus, show extensive cross-reactivity with West Nile virus, serologic testing specific for these species should be considered. The detection of antibodies to West Nile virus in cerebrospinal fluid may indicate central nervous system infection. However, consideration must be given to possible contamination by blood or transfer of serum antibodies across the blood-brain barrier. Test developed and characteristics determined by [employer]. See Compliance Statement B: [employer] Performed by [employer], [address] [place] [address] www.[employer], Blade Hoff MD - Lab. Director Specimen Cerebrospinal fluid Performing Organization Address City/State/Zipcode Phone Number [facility] [address] [place] [address] * AFB culture (03/23/2018 9:45 AM CDT) Pathologist [facility] AFB culture No growth after 6 weeks of [facility] DEPARTMENT isolate incubation. OF PATHOLOGY Comment: AND GENOMIC Specimen Information MEDICINE Specimen Source: CSF (Spinal Fluid) Specimen Site: Lumbar puncture Specimen Cerebrospinal fluid - Lumbar puncture Performing Organization Address [facility] Cent[facility]ova Phone Number [facility] DEPARTMENT [address] [address] PATHOLOGY AND GENOMIC MEDICINE * Cryptococcal antigen, screen (03/23/2018 9:45 AM CDT) Pathologist [facility] Cryptococcal Ag Negative - No Cryptococcus [facility] DEPARTMENT antigen detected. OF PATHOLOGY Comment: AND GENOMIC Specimen Information MEDICINE Specimen Source: CSF (Spinal Fluid) Specimen Site: Lumbar puncture Specimen Cerebrospinal fluid - Lumbar puncture Performing Organization Address [facility] [place] [address] PATHOLOGY AND GENOMIC MEDICINE * Oligoclonal banding, CSF (03/23/2018 9:45 AM CDT) Protein, CSF 235 (H) 15 - 45 mg/dL [facility] DEPARTMENT OF PATHOLOGY AND GENOMIC MEDICINE Prealbumin, CSF 1.0 (L) 3.5 - 11.1 % [facility] DEPARTMENT OF PATHOLOGY AND GENOMIC MEDICINE Albumin, CSF 69.8 (H) 40.8 - 66.2 % [facility] DEPARTMENT OF PATHOLOGY AND GENOMIC MEDICINE Alpha 1, CSF 3.2 2.3 - 6.4 % [facility] DEPARTMENT OF PATHOLOGY AND GENOMIC MEDICINE Alpha 2, CSF 6.7 6.1 - 12.6 % [facility] DEPARTMENT OF PATHOLOGY AND GENOMIC MEDICINE Beta, CSF 10.0 (L) 11.7 - 24.1 % [facility] DEPARTMENT OF PATHOLOGY AND GENOMIC MEDICINE Gamma, CSF 9.3 5.6 - 12.2 % [facility] DEPARTMENT OF PATHOLOGY AND GENOMIC MEDICINE CSF extended See Comment [facility] DEPARTMENT interpretation Comment: OF PATHOLOGY An abnormal CSF protein study AND GENOMIC with increased total protein MEDICINE and increased Q-albumin and decreased prealbumin 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 IgG synthesis rate increased probably as an artifact. No oligoclonal bands are seen. CSF See CommentComment: Lita [facility] DEPARTMENT interpretation Gissel BECKFORD; Deborah Juares, PhD; Lon OF PATHOLOGY MD Holland, PhD AND GENOMIC MEDICINE Specimen Cerebrospinal fluid Performing Organization Address [facility] Phone Number [facility] DEPARTMENT OF [address] [place] [address] PATHOLOGY AND GENOMIC MEDICINE * Gram stain (03/23/2018 9:45 AM CDT) Pathologist [facility] Gram stain No WBC's or organisms seen. [facility] DEPARTMENT isolate Comment: OF PATHOLOGY Specimen Information AND GENOMIC Specimen Source: CSF (Spinal MEDICINE Fluid) Specimen Site: Lumbar puncture Specimen Cerebrospinal fluid - Lumbar puncture Performing Organization Address City/[facility] Centercode Phone Number [facility] [place] [address] PATHOLOGY AND GENOMIC MEDICINE * CSF culture (03/23/2018 9:45 AM CDT) [facility] CSF culture No growth after 3 days. [facility] DEPARTMENT isolate Comment: OF PATHOLOGY Specimen Information AND GENOMIC Specimen Source: CSF (Spinal MEDICINE Fluid) Specimen Site: Lumbar puncture Specimen Cerebrospinal fluid - Lumbar puncture Performing Organization Address [facility] Centercode Phone Number [facility] [place] [address] PATHOLOGY AND GENOMIC MEDICINE * CSF cell count with differential (03/23/2018 9:45 AM CDT) Pathologist [facility] Color, CSF Colorless [facility] DEPARTMENT OF PATHOLOGY AND GENOMIC MEDICINE Appearance, CSF Clear [facility] DEPARTMENT OF PATHOLOGY AND GENOMIC MEDICINE RBC, CSF 19 (H) 0 - 1 /CMM [facility] DEPARTMENT OF PATHOLOGY AND GENOMIC MEDICINE WBC, CSF 7 (H) 0 - 5 /CMM [facility] DEPARTMENT OF PATHOLOGY AND GENOMIC MEDICINE CSF mononuclear Diff to follow [facility] DEPARTMENT cell OF PATHOLOGY AND GENOMIC MEDICINE Neutrophils, 4 % [facility] DEPARTMENT CSF OF PATHOLOGY AND GENOMIC MEDICINE Lymphocytes, 96 % [facility] DEPARTMENT CSF OF PATHOLOGY AND GENOMIC MEDICINE Specimen Cerebrospinal fluid Performing Organization Address City/[facility]/Zipcode Phone Number [facility] [address] PATHOLOGY AND GENOMIC MEDICINE * VDRL, CSF screen (03/23/2018 9:45 AM CDT) [facility] VDRL, CSF Non-reactive Non-reactive [facility] DEPARTMENT screen OF PATHOLOGY AND GENOMIC MEDICINE Specimen Cerebrospinal fluid Performing Organization Address City/[facility]/Zipcode Phone Number [facility] DEPARTMENT [address] [address] PATHOLOGY AND GENOMIC MEDICINE * Glucose level, CSF (03/23/2018 9:45 AM CDT) Glucose, CSF 95 (H) 40 - 70 mg/dL [facility] DEPARTMENT OF PATHOLOGY AND GENOMIC MEDICINE Specimen Cerebrospinal fluid Performing Organization Address City/State/Zipcode Phone Number [facility] DEPARTMENT OF [address] [place] [address] PATHOLOGY AND GENOMIC MEDICINE * Angiotensin converting enzyme, CSF (03/23/2018 9:45 AM CDT) Angiotensin 3.2 (H) 0.0 - 2.5 U/L [facility] converting Comment: enzyme, CSF This test was developed and its performance characteristics determined by [employer]. The U.S. Food and Drug Administration has not approved or cleared this test; however, FDA clearance or approval is not currently required for clinical use. The results are not intended to be used as the sole means for clinical diagnosis or patient management decisions. Performed by [employer], [address] [place] [address] www.[employer], Blade Hoff MD - Lab. Director Specimen Cerebrospinal fluid Performing Organization Address [facility] Centercode Phone Number [facility] [address] [place] [address] * MRI Cervical Spine Wo Contrast (03/23/2018 8:55 AM CDT) Specimen Narrative Performed At EXAMINATION: MRI CERVICAL SPINE [...] C6-C7. No significant spinal canal stenosis identified. [facility]-[id number] Procedure Note Hm Interface, Radiology Results Incoming [...] C6-C7. No significant spinal canal stenosis identified. [facility]-[id number] Performing Organization Address [facility]/Zipcode Phone Number [facility] [address] [place] [address] * MRI Brain Wo Contrast (03/23/2018 8:34 AM CDT) Specimen Narrative Performed At [facility] EXAMINATION:MRI BRAIN WO [...] are unremarkable. IMPRESSION: No acute intracranial abnormality. [facility]-[id number] Procedure Note Interface, Radiology Results Incoming - [...] are unremarkable. IMPRESSION: No acute intracranial abnormality. [facility]-[id number] Performing Organization Address [facility]/Zipcode Phone Number [facility] [address] [place] [address] * Syphilis treponemal IgG (03/22/2018 5:30 PM CDT) Syphilis Non-reactiveComment: Non-reactive [facility] DEPARTMENT treponemal IgG Non-reactive: No serological OF PATHOLOGY evidence of Syphilis infection AND GENOMIC MEDICINE Specimen Serum Performing Organization Address City/State/Zipcode Phone Number [facility] DEPARTMENT OF [address] [place] [address] PATHOLOGY AND GENOMIC MEDICINE * Rapid HIV 1 & 2 (03/22/2018 5:30 PM CDT) Rapid HIV 1 and Non-Reactive Non-Reactive [facility] DEPARTMENT 2 OF PATHOLOGY AND GENOMIC MEDICINE Specimen Blood Performing Organization Address City/State/Zipcode Phone [place] [facility] [address] [place] [address] PATHOLOGY AND GENOMIC MEDICINE * Heavy metals panel 3, blood (03/22/2018 5:30 PM CDT) Pathologist [facility] Arsenic <10.0 0.0 - 13.0 ug/L [facility] Comment: INTERPRETIVE INFORMATION: Arsenic, Blood Potentially toxic ranges for blood arsenic:Greater than or equal to 600 ug/L. Blood arsenic is for the detection of recent exposure only. Blood arsenic levels in healthy subjects vary considerably with exposure to arsenic in the diet and the environment.A 24-hour urine arsenic is useful for the detection of chronic exposure. Test developed and characteristics determined by [employer]. See Compliance Statement B: [email or web address] Lead, blood 3.1 0.0 - 4.9 ug/dL [facility] Comment: INTERPRETIVE INFORMATION: Lead, Blood (Venous) [...] may become , reduce lead exposure. All gyhb89-15.9 ug/dLReduced lead exposure and increased biological monitoring are recommended. All ianu74-57.9 ug/dLRemoval from lead exposure and prompt medical [...] present. Test developed and characteristics determined by [employer]. See Compliance Statement B: [employer]/CS Mercury, blood <3 0 - 10 ug/L [facility] Comment: INTERPRETIVE INFORMATION: Mercury, Blood Blood [...] ug/L. Test developed and characteristics determined by [employer]. See Compliance Statement B: [employer]/CS Performed by [employer], [address] [place], [place] [id number] www.[employer], Blade Hoff MD - Lab. Director Specimen Blood Narrative Performed At [facility], Serum: whole blood submitted for testing. specimen requires serum or [facility] plasma to be from cells soon after collection. Notified [facility] ([facility] [facility]) to recollect 03/23/201809:56 [facility] Performing Organization Address City/State/Zipcode Phone Number [facility] [address] [place] [address] * Vitamin B1 level, whole blood (03/22/2018 5:30 PM CDT) [facility] Vitamin B1 90 70 - 180 nmol/L [facility] Comment: INTERPRETIVE INFORMATION: Vitamin B1, Whole Blood This assay measures the concentration of thiamine diphosphate (TDP), the primary active form of vitamin B1. Approximately 90 percent of vitamin B1 present in whole blood is TDP. Thiamine and thiamine monophosphate, which comprise the remaining 10 percent, are not measured. Test developed and characteristics determined by [employer]. See Compliance Statement B: [email or web address] Performed by [employer], [address] [place] [address] www.[employer], Blade Hoff MD - Lab. Director Specimen Plasma specimen Performing Organization Address [facility] Centercode Phone Number [facility] [address] [place] [address] * Partial thromboplastin time, activated (03/22/2018 5:30 PM CDT) PTT 31.0 23.0 - 36.0 sec [facility] DEPART[facility] Comment: OF PATHOLOGY PTT therapeutic range for AND GENOMIC unfractionated heparin is MEDICINE 61.0-112.0 seconds which corresponds to Anti-Xa 0.3-0.7 U/ml. Specimen Blood Performing Organization Address [facility] Centercode Phone Number [facility] [address] PATHOLOGY AND GENOMIC MEDICINE * Prothrombin time with INR (03/22/2018 5:30 PM CDT) Only the most recent of 2 results within the time period is included. Prothrombin 12.9 12.0 - 15.0 sec [facility] DEPARTMENT time OF PATHOLOGY AND GENOMIC MEDICINE INR 1.0 [facility] DE[facility] Comment: OF PATHOLOGY The International Normalized AND GENOMIC Ratio (INR) is a therapeutic MEDICINE monitoring tool for patients who are stable on oral anticoagulant therapy. An INR of 2.0-3.0 is suggested for deep vein thrombosis/pulmonary embolism. Specimen Blood Performing Organization Address [facility] [place] [address] PATHOLOGY AND GENOMIC MEDICINE * Thyroid stimulating hormone (03/22/2018 5:30 PM CDT) TSH 1.42 0.27 - 4.20 uIU/mL [facility] DEPARTMENT OF PATHOLOGY AND GENOMIC MEDICINE Specimen Blood Performing Organization Address [facility] Centercode Phone Number [facility] [address] PATHOLOGY AND GENOMIC MEDICINE * Magnesium level (03/22/2018 5:30 PM CDT) Only the most recent of 3 results within the time period is included. Pathologist [facility] Magnesium 2.3 1.6 - 2.6 mg/dL [facility] DEPARTMENT OF PATHOLOGY AND GENOMIC MEDICINE Specimen Blood Performing Organization Address City/[facility]/Zipcode Phone Number [facility] [place] [id number] [place] [address] PATHOLOGY AND [facility] MEDICINE * Hemoglobin A1c (03/22/2018 5:30 PM CDT) Only the most recent of 2 results within the time period is included. [facility] Hemoglobin A1C 7.2 (H) 4.0 - 6.0 % [facility] DEPART[facility] Comment: OF PATHOLOGY AND GENOMIC MEDICINE Less than 6% - Goal of therapy for Type II Diabetes Less than 7%-Goal of therapy for Type I Diabetes Less than 8%-Accepta ble control for Type I or Type II Diabetes Greater than 8%-Unacceptabl e control; action indicated. (ADA94) Specimen Blood Performing Organization Address City/[facility]/Zipcode Phone Number [facility] [place] [place] [id number] [place] [address] PATHOLOGY AND [facility] MEDICINE * Vitamin B12 level (03/22/2018 5:30 PM CDT) [facility] Vitamin B12 645 211 - 946 pg/mL [facility] DEPARTMENT Comment: OF PATHOLOGY Significant overlap exists AND GENOMIC between normal and deficiency MEDICINE states. However, most patients with deficiencies will have Serum B12 <200 pg/mL. Specimen Serum Performing Organization Address City/State/Zipcode Phone Number [facility] DEPARTMENT OF [address] [place] [address] PATHOLOGY AND [facility] MEDICINE * Lipid panel (03/22/2018 5:30 PM CDT) Only the most recent of 2 results within the time period is included. Cholesterol 195 0 - 199 mg/dL [facility] DEPARTMENT OF PATHOLOGY AND GENOMIC MEDICINE Triglycerides 91 0 - 149 mg/dL [facility] DEPARTMENT OF PATHOLOGY AND GENOMIC MEDICINE HDL cholesterol 55 40 - 99,999 mg/dL [facility] DEPARTMENT OF PATHOLOGY AND GENOMIC MEDICINE LDL cholesterol 132 (H) 0 - 99 mg/dL [facility] DEPARTMENT OF PATHOLOGY AND GENOMIC MEDICINE Lipid panel See below [facility] DEPARTMENT interpretation Comment: OF PATHOLOGY Total Cholesterol AND GENOMIC (mg/dL) MEDICINE <200 Desirable 200-239Borderline -high >=240High Triglycerides (mg/dL) [...] Blood Performing Organization Address City/State/Zipcode Phone [place] [facility] [address] [place] [address] PATHOLOGY AND GENOMIC MEDICINE * CT Lumbar Spine Wo Contrast (03/22/2018 4:41 PM CDT) Specimen Narrative Performed At EXAMINATION: CT LUMBAR SPINE [...] or traumatic malalignment of the lumbar spine. [facility]-[id number] Procedure Note Interface, Radiology Results Incoming - [...] or traumatic malalignment of the lumbar spine. [facility]-[id number] Performing Organization Address [facility]/Zipcode Phone Number [address] [address] * Troponin (03/21/2018 9:40 PM CDT) Only the most recent of 3 results within the time period is included. Troponin <0.30 0.00 - 0.30 ng/mL [facility] DEPART[facility] Comment: OF PATHOLOGY 0.11 - 1.49 AND GENOMIC ng/mlMay MEDICINE indicate increased risk of acute coronary syndrome. >=1.5 ng/ml Consistent with acute myocardial infarction. The diagnostic value of a single normal or non-diagnostic result is questionable.Serial samples at 2-6 hour intervals are required to rule out acute myocardial injury. Specimen Plasma specimen Performing Organization Address City/[facility]/Zipcode Phone Number [facility] DEPARTMENT [address] [place] [address] PATHOLOGY AND GENOMIC MEDICINE * Myoglobin (03/21/2018 3:12 PM CDT) Myoglobin 261 (H) 21 - 72 ng/mL [facility] DEPARTMENT OF PATHOLOGY AND GENOMIC MEDICINE Specimen Plasma specimen Performing Organization Address City/[facility]/Zipcode Phone Number [facility] [address] [place] [address] PATHOLOGY AND GENOMIC MEDICINE * Surgical pathology request (02/11/2018 10:26 AM CDT) [facility] DEPARTMENT OF PATHOLOGY AND GENOMIC MEDICINE Surgical See link below for PDF Lab [facility] DEPARTMENT pathology Report OF PATHOLOGY report AND GENOMIC MEDICINE Result status This is Final Report to [facility] DEPARTMENT [id number] OF PATHOLOGY AND GENOMIC MEDICINE Specimen Performing Organization Address City/[facility]/Zipcode Phone Number [facility] [address] [facility] [place] [address] PATHOLOGY AND GENOMIC MEDICINE * Ionized calcium (02/10/2018 3:45 AM CDT) Only the most recent of 2 results within the time period is included. pH 7.40 [facility] DEPARTMENT OF PATHOLOGY AND GENOMIC MEDICINE Ionized calcium 1.18 1.11 - 1.32 mmol/L [facility] OF PATHOLOGY AND GENOMIC MEDICINE Specimen Blood Performing Organization Address [facility]/Zipcode Phone Number [facility] [address] [place] [address]. [address] [place] [address] PATHOLOGY AND GENOMIC MEDICINE * Echocardiogram complete [...] [facility]UP[facility] IVS/LVPW,2D 0.91 [facility] Left Atrium 2.92 cm [facility] Dimension Anterior LV,d 3.77 cm [facility] LV [...] 19.79 mmHg [facility] AV LVOT peak 8.03 mmHg [facility] gradient RVSP 29.79 mmHg [facility] Ao Root,d,2D 2.17 cm [facility] LV SYS VOL 25.32 ml [facility] LV GLASGOW VOL 60.79 ml [facility] LV SV Teich 2D 35.47 ml [facility] LV Vol s Teich 25.32 ml [facility] PSAX LVOT CO 8.17 l/min [facility] LVOT HR for 129.00 bpm [facility] LVOT CO AoV Vmn 1.77 [facility] LV FS [...] ml [facility] LV vol d cube 53.58 ml [facility] 2D LV vol s cube 18.19 ml [facility] 2D Pred Exer Dur 11.54 [facility] R1 Pred METS R1 11.26 [facility] Velocity Ratio 0.49 m/s [facility] (V1/V2) EF 58.35 % [facility] Specimen Narrative Performed At [facility] The left ventricle chamber size is normal. Left Ventricular ejection fraction is 60 - 65%. No pericardial effusion Performing Organization Address [facility]erc[facility] Phone Number [facility] [address] [place] [address] * Beta hydroxybutyrate (02/09/2018 2:50 PM CDT) Pathologist [facility] Beta 0.13 0.02 - 0.27 mmol/L [facility] DEPARTMENT hydroxybutyrate OF PATHOLOGY AND GENOMIC MEDICINE Specimen Serum Performing Organization Address [facility] Phone Number [facility] [place] [address] PATHOLOGY AND GENOMIC MEDICINE * hCG qualitative, serum screen (02/09/2018 2:50 PM CDT) Pathologist [facility] hCG NegativeComment: Sensitivity: [facility] DEPARTMENT qualitative, 10 mlUhCG/mL in Serum OF PATHOLOGY serum AND GENOMIC MEDICINE Specimen Blood Performing Organization Address [facility] Phone Number [facility] DEPARTMENT [address] [place] [address] PATHOLOGY AND GENOMIC MEDICINE * Creatine kinase, total (CPK) (02/09/2018 7:15 AM CDT) Creatine kinase 83 35 - 200 U/L [facility] DEPARTMENT OF PATHOLOGY AND GENOMIC MEDICINE Specimen Plasma specimen Performing Organization Address City/State/Zipcode Phone Number [facility] DEPARTMENT [facility] [facility] [address] [place] [address] PATHOLOGY AND GENOMIC MEDICINE after 02/06/2018 Insurance Type Payer Benefit Subscriber ID Effective Phone Address Plan / Dates Group Medicare MEDICARE MEDICARE xxxxxxxxxxx 2017-P [place], PART A AND resent [place] B Medicaid MEDICAID MEDICAID xxxxxxxxx 2018-P resent Advance Directives Patient has advance care planning documents, and code status on file. For more i nformation, please contact: [facility] [employer] [phone] [place] [address] Date Inactivated Comments Code Status Date Activated 04/21/2017 7:21 PM Full Code 04/20/2017 5:51 AM Code Status decision reached by: Patient 04/07/2017 7:50 PM Full Code 03/30/2017 10:54 PM Code Status decision reached by: Patient
--- OUTSIDE RECORDS SUMMARY | 2019-02-07 19:13 | XMS REPORT | Clinical Summary ---
Author Author ZENIA [facility]DepotClear[facility] HospitalStory[facility] loanDepotSaint [facility]cell[facility] Address Unknown Phone Unavailable Care Team Providers Care Tie Hacker Name Role Phone Marcia Westfall MD PCP Allergies Comments Active Allergy Reactions Severity Noted Date Lisinopril 10/25/2015 Mouth shifted to the side Metoclopramide Hcl Other (See 02/19/2013 Comments) jittery Ketorolac Other (See 02/19/2013 Comments) Like i cannot move my body as verbalized by the pt Tizanidine Other (See 05/11/2015 Comments) More nausea Ondansetron Hcl (Pf) 06/07/2015 Medications End Date Status Medication Sig Dispensed Refills Start Date Active insulin lispro (HUMALOG) Inject 13 30 mL 0 100 unit/mL InPn Units 7 subcutaneousl y 3 (three) times daily with meals. Active insulin detemir (LEVEMIR) Inject 0.3 15 mL 0 100 unit/mL (3 mL) InPn mLs (30 [...] . Active ALPRAZolam (XANAX) 1 MG Take 2 mg by 0 tablet mouth 2 (two) times daily as needed for Anxiety . Active cloNIDine (CATAPRES-TTS) Place 1 patch 0 0.3 mg/24 hr patch onto the skin once a week Started last wednesday. Active losartan (COZAAR) 100 MG Take 100 mg 0 tablet by mouth daily. Active pantoprazole (PROTONIX) Take 40 mg by 0 40 MG tablet mouth daily. 05/17/2018 Discontinued labetalol (NORMODYNE) 200 Take [...] total) by mouth every 8 (eight) hours. 03/07/2018 levoFLOXacin (LEVAQUIN) Take 1 tablet 2 tablet 0 250 MG tablet (250 mg 8 total) by mouth every other day for 2 doses. 03/07/2018 metroNIDAZOLE (FLAGYL) Take 1 tablet 9 tablet 0 500 MG tablet (500 mg 8 total) by mouth 3 (three) times daily for 3 days. 01/23/2019 Discontinued hydrALAZINE (APRESOLINE) Take 1 tablet 90 tablet 5 100 MG tablet (100 mg 8 total) by mouth every 8 (eight) hours. 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 02/04/2017 Stage 4 chronic kidney disease 10/25/2016 Acute on chronic renal failure 10/13/2016 Hypertensive emergency 08/31/2016 Cyclical vomiting, intractable 08/31/2016 History of Clostridium difficile 08/31/2016 Uncontrolled hypertension 02/05/2016 Diabetes 01/01/2016 Diabetic gastroparesis associated with type 1 diabetes mellitus 12/05/2015 Uncontrolled diabetes mellitus with hypoglycemia 11/21/2015 Hyperglycemia 11/03/2015 Gastroparesis due to secondary diabetes 07/23/2015 DKA (diabetic ketoacidoses) 12/18/2014 Exacerbation of Crohn's disease 12/18/2014 Cystitis 12/05/2014 Heart murmur 12/05/2014 Duodenitis 09/17/2014 Diabetes mellitus Hypertension Bipolar 1 disorder Crohn's disease Overview: diagnosed 2011, colonoscopy at time of diagnosis, treated by Dr. Hsieh on remicade since 2013 with good response, also on imuran increased to 100mg in 07/2014 Resolved Problems Problem Noted Date Resolved Date Hypertensive emergency without congestive heart failure 07/22/2018 01/02/2019 Shortness of breath 05/17/2018 01/02/2019 Nausea 05/14/2017 01/02/2019 Vomiting 05/14/2017 01/02/2019 Abdominal pain 02/23/2017 01/02/2019 10/25/2016 01/02/2019 Acidemia 10/25/2016 01/02/2019 MIKE (acute kidney injury) 09/01/2016 01/02/2019 Proteinuria 09/01/2016 01/02/2019 Acute cystitis without hematuria 08/31/2016 01/02/2019 Diarrhea 08/10/2016 01/02/2019 ARF (acute renal failure) 05/06/2016 01/02/2019 Intractable cyclical vomiting with nausea 05/05/2016 01/02/2019 Accelerated hypertension 02/17/2016 01/02/2019 Diabetic ketoacidosis 01/19/2016 01/02/2019 Clostridium difficile colitis 11/15/2015 01/02/2019 Colitis 11/14/2015 01/02/2019 Hypertensive urgency 08/26/2015 01/02/2019 Gastroparesis due to DM 08/26/2015 01/02/2019 Intractable nausea and vomiting 08/26/2015 01/02/2019 Colitis, acute 05/12/2015 01/02/2019 Fever 01/16/2015 01/02/2019 HTN (hypertension) 12/18/2014 01/02/2019 Abdominal pain, other specified site 11/28/2014 01/02/2019 Malignant hypertension 10/13/2014 01/02/2019 Gastroparesis 09/17/2014 01/02/2019 Crohn disease 09/17/2014 01/02/2019 Gastritis 09/17/2014 01/02/2019 Gastroenteritis 09/16/2014 01/02/2019 Encounters Care Team Description Date Type Specialty Bud Pruitt MD Ravuri, Suman Chandra, MD Generalized abdominal pain (Primary Dx); Uncontrolled hypertension; Crohn's disease with complication, unspecified gastrointestinal tract location (HCC) 01/23/2019 Hospital General Internal Medicine - Encounter 01/28/2019 01/23/2019 Travel Hever Yin MD Narcisse, Victor Joseph III, MD Hypertensive urgency; Generalized abdominal pain; Bipolar 1 disorder (HCC); Crohn's disease with complication, unspecified gastrointestinal tract location (HCC); Diabetic gastroparesis (HCC); ESRD (end stage renal disease) on dialysis (HCC); Other secondary hypertension; Uncontrolled hypertension; 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 (HCC); Type 1 diabetes mellitus with complication (HCC); Nausea and vomiting, intractability of vomiting not specified, unspecified vomiting type 01/01/2019 Hospital Intensive Care - Encounter 01/02/2019 01/01/2019 Orders Only General Internal Medicine Hever Yin MD transfer 01/01/2019 Telephone Critical Care Medicine Arturo Duke MD Braun, Andrea Barbara, MD Morgan, Christopher Killough, MD Malignant hypertension (Primary Dx); Intractable vomiting [...] kidney disease on chronic dialysis (HCC) 06/02/2018 [facility] General Internal Medicine - Encounter 06/06/2018 06/02/2018 Jarrett Ponce MD Patel, Bhagwat Purushottam, MD Shortness of breath (Primary Dx); Hyperglycemia; Urinary tract infection without hematuria, site unspecified; Accelerated hypertension 05/17/2018 [facility] General Internal Medicine - Encounter 05/24/2018 05/17/2018 Orders Only General Internal Medicine 05/17/2018 Travel Senia Chawla MD Ahmed, Homaira, MD Crohn's disease of colon without complication (HCC) (Primary Dx); ESRD on dialysis (HCC); Nausea vomiting and diarrhea; 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) 02/28/2018 Emergency General Internal Medicine - 03/04/2018 after 02/06/2018 Immunizations Name Dates Previously Given [...] Vital Signs Time Taken Vital Sign Reading 01/28/2019 2:06 PM CDT Blood Pressure 131/71 01/28/2019 2:06 PM CDT Pulse 93 01/28/2019 2:06 PM CDT Temperature 36.2 C (97.2 F) 01/28/2019 2:06 PM CDT Respiratory Rate 19 01/28/2019 2:06 PM CDT Oxygen Saturation 98% 05/24/2018 7:57 AM [employer] COLLECTOR Inhaled Oxygen 21% Concentration 01/24/2019 12:00 AM CDT Weight 53.5 kg (118 lb) 01/24/2019 12:00 AM CDT Height 157.5 cm (5' 2") 01/24/2019 12:00 AM CDT Body Mass Index 21.58 Plan of Treatment Not on file Procedures Comments Procedure Name Priority Date/Time Associated Diagnosis RHYTHM STRIP - SCAN 02/01/2019 11:02 AM CDT RHYTHM STRIP - SCAN 01/31/2019 8:50 AM CDT REPORT OF PROCEDURE - 01/31/2019 ENDOSCOPY SCAN 8:50 AM CDT POCT-GLUCOSE METER Routine 01/28/2019 11:46 AM CDT HEMODIALYSIS INPATIENT Routine 01/28/2019 8:42 AM CDT POCT-GLUCOSE METER Routine 01/28/2019 8:02 AM CDT POCT-GLUCOSE METER Routine 01/27/2019 9:20 PM CDT POCT-GLUCOSE METER Routine 01/27/2019 3:12 PM CDT POCT-GLUCOSE METER Routine 01/27/2019 11:56 AM CDT POCT-GLUCOSE METER Routine 01/27/2019 7:50 AM CDT CBC W/PLT COUNT & AUTO Routine 01/27/2019 DIFFERENTIAL 5:28 AM CDT BASIC METABOLIC PANEL (7) Routine 01/27/2019 5:28 AM CDT PHOSPHORUS Routine 01/27/2019 5:28 AM CDT CBC W/PLT COUNT & AUTO Routine 01/27/2019 DIFFERENTIAL 5:28 AM CDT POCT-GLUCOSE METER Routine 01/26/2019 7:50 PM CDT POCT-GLUCOSE METER Routine 01/26/2019 3:59 PM CDT POCT-GLUCOSE METER Routine 01/26/2019 11:22 AM CDT POCT-GLUCOSE METER Routine 01/26/2019 8:10 AM CDT HEMODIALYSIS INPATIENT Routine 01/26/2019 7:43 AM CDT CBC W/PLT COUNT & AUTO Routine 01/26/2019 DIFFERENTIAL 3:59 AM CDT CBC W/PLT COUNT & AUTO Routine 01/26/2019 DIFFERENTIAL 3:59 AM CDT COMPREHENSIVE METABOLIC Routine 01/26/2019 PANEL 3:59 AM CDT POCT-GLUCOSE METER Routine 01/25/2019 8:49 PM CDT POCT-GLUCOSE METER Routine 01/25/2019 5:04 PM CDT POCT-GLUCOSE METER Routine 01/25/2019 11:27 AM CDT POCT-GLUCOSE METER Routine 01/25/2019 7:39 AM CDT CBC W/PLT COUNT & AUTO Routine 01/25/2019 DIFFERENTIAL 5:44 AM CDT PHOSPHORUS Routine 01/25/2019 5:44 AM CDT CBC W/PLT COUNT & AUTO Routine 01/25/2019 DIFFERENTIAL 5:44 AM CDT COMPREHENSIVE METABOLIC Routine 01/25/2019 PANEL 5:44 AM CDT POCT-GLUCOSE METER Routine 01/24/2019 9:25 PM CDT POCT-GLUCOSE METER Routine 01/24/2019 5:03 PM CDT POCT-GLUCOSE METER Routine 01/24/2019 11:58 AM CDT HEPATITIS B SURFACE Routine 01/24/2019 ANTIGEN 10:01 AM CDT HEPATITIS B SURFACE Routine 01/24/2019 ANTIBODY 10:01 AM CDT HEMODIALYSIS INPATIENT Routine 01/24/2019 8:37 AM CDT POCT-GLUCOSE METER Routine 01/24/2019 7:20 AM CDT POCT-GLUCOSE METER Routine 01/23/2019 11:56 PM CDT POCT-GLUCOSE METER Routine 01/23/2019 11:[address] ABDOMEN/PELVIS WITH IV STAT 01/23/2019 CONTRAST 7:37 PM CDT CBC W/PLT COUNT & AUTO STAT 01/23/2019 DIFFERENTIAL 6:37 PM CDT HCG, QUANTITATIVE, STAT 01/23/2019 6:37 PM CDT MAGNESIUM STAT 01/23/2019 6:37 PM CDT COMPREHENSIVE METABOLIC STAT 01/23/2019 PANEL 6:37 PM CDT CBC W/PLT COUNT & AUTO STAT 01/23/2019 DIFFERENTIAL 6:37 PM CDT ED ECG INTERPRETATION Routine 01/23/2019 4:04 PM CDT RHYTHM STRIP - SCAN 01/05/2019 8:52 AM CDT C-REACTIVE PROTEIN Routine 01/02/2019 3:08 PM CDT POCT-GLUCOSE METER Routine 01/02/2019 11:42 AM CDT POCT-GLUCOSE METER Routine 01/02/2019 6:23 AM CDT CBC W/PLT COUNT & AUTO Routine 01/02/2019 DIFFERENTIAL 3:43 AM CDT MAGNESIUM Routine 01/02/2019 3:43 AM CDT BASIC METABOLIC PANEL (7) Routine 01/02/2019 3:43 AM CDT CBC W/PLT COUNT & AUTO Routine 01/02/2019 DIFFERENTIAL 3:43 AM CDT POCT-GLUCOSE METER Routine 01/02/2019 1:34 AM CDT POCT-GLUCOSE METER Routine 01/02/2019 12:17 AM CDT POCT-GLUCOSE METER Routine 01/01/2019 5:58 PM CDT POCT-GLUCOSE METER Routine 01/01/2019 5:[address] ABDOMEN/PELVIS WITH IV STAT 01/01/2019 CONTRAST 1:17 PM CDT POCT-GLUCOSE METER Routine 01/01/2019 12:38 PM CDT ECG 12-LEAD Routine 01/01/2019 11:59 AM CDT Procedure Note - Interface, External Ris In - 01/01/2019 12:09 PM CDT Ventricula r Rate 101 BPM Atrial Rate 101 BPM P-R Interval 146 ms QRS Duration 90 ms Q-T Interval 390 ms QTC Calculatio n(Bazett) 505 ms P Nicasio 66 degrees R Nicasio 32 degrees T Nicasio 57 degrees Sinus tachycardi a Minimal voltage criteria for LVH, may be normal variant Borderline ECG When compared with ECG of 9 19:44, Criteria for Septal infarct are no longer Present T wave amplitude has decreased in Inferior leads ECG 12-LEAD STAT 01/01/2019 11:59 AM CDT POCT-GLUCOSE METER Routine 01/01/2019 9:14 AM CDT HCG, QUANTITATIVE, Routine 01/01/2019 8:16 AM CDT CBC W/PLT COUNT & AUTO Routine 01/01/2019 DIFFERENTIAL 8:15 AM CDT C-REACTIVE PROTEIN Routine 01/01/2019 8:15 AM CDT PHOSPHORUS Routine 01/01/2019 8:15 AM CDT TROPONIN I Routine 01/01/2019 8:15 AM CDT HEPATIC FUNCTION PANEL Routine 01/01/2019 8:15 AM CDT LIPASE Routine 01/01/2019 8:15 AM CDT BASIC METABOLIC PANEL (7) Routine 01/01/2019 8:15 AM CDT CBC W/PLT COUNT & AUTO Routine 01/01/2019 DIFFERENTIAL 8:15 AM CDT TRANSFUSE LEUKO-REDUCED Routine 08/25/2018 RED BLOOD CELLS 5:21 PM [employer] [employer] TRANSFUSE LEUKO-REDUCED Routine 08/25/2018 RED BLOOD CELLS 5:21 PM [employer] COL[employer]OR RHYTHM STRIP - SCAN 08/12/2018 9:10 AM [employer] [employer]OR HEMODIALYSIS INPATIENT Routine 07/23/2018 12:06 PM [employer] COL[employer]OR POCT-GLUCOSE METER Routine 07/23/2018 11:31 AM [employer] COL[employer]OR HCG, QUANTITATIVE, Routine 07/23/2018 9:07 AM [employer] COL[employer]OR POCT-GLUCOSE METER Routine 07/23/2018 6:09 AM [employer] COLLECTOR POCT-GLUCOSE METER Routine 07/23/2018 4:49 AM [employer] COLLECTOR POCT-GLUCOSE METER Routine 07/23/2018 4:27 AM [employer] [employer]OR POTASSIUM Routine 07/23/2018 4:15 AM [employer] [employer]OR PHOSPHORUS Routine 07/23/2018 4:15 AM [employer] COLLECTOR MAGNESIUM Routine 07/23/2018 4:15 AM [employer] COL[employer]OR COMPREHENSIVE METABOLIC Routine 07/23/2018 PANEL 4:15 AM [employer] COLLECTOR CBC W/PLT COUNT & AUTO Routine 07/23/2018 DIFFERENTIAL 3:52 AM [employer] COLLECTOR KETONE, BLOOD Routine 07/23/2018 3:52 AM [employer] COL[employer]OR PROTHROMBIN TIME/INR Routine 07/23/2018 3:52 AM [employer] COLLECTOR CBC W/PLT COUNT & AUTO Routine 07/23/2018 DIFFERENTIAL 3:52 AM [employer]LEY COLLECTOR POCT-GLUCOSE METER Routine 07/23/2018 12:25 AM [employer] COLLECTOR HEPATITIS B SURFACE Routine 07/22/2018 ANTIGEN 11:[address] ABDOMEN/PELVIS WITHOUT STAT 07/22/2018 IV CONTRAST 11:20 PM [employer] C-REACTIVE PROTEIN Routine 07/22/2018 10:52 PM [employer] [employer] HIV-1 ANTIGEN WITH Routine 07/22/2018 HIV-1/2 ANTIBODY 10:52 PM [employer] [employer] XR CHEST 1 VIEW STAT 07/22/2018 PORTABLE/BEDSIDE 9:40 PM [employer] COL[employer]OR LACTIC ACID, VENOUS Routine 07/22/2018 9:21 PM [employer] [employer]OR BLOOD CULTURE Routine 07/22/2018 9:21 PM [employer] [employer] HEMOGLOBIN A1C AP Routine 07/22/2018 8:19 PM [employer] COL[employer]OR KETONE, BLOOD Routine 07/22/2018 8:19 PM [employer] [employer]OR FIBRINOGEN Routine 07/22/2018 8:19 PM [employer] COLLECTOR TROPONIN I STAT 07/22/2018 8:19 PM [employer] COL[employer]OR BLOOD CULTURE Routine 07/22/2018 8:19 PM TR[employer] COLLECTOR ED ECG INTERPRETATION Routine 07/22/2018 8:12 PM [employer] COL[employer]OR CRITICAL CARE Routine 07/22/2018 8:12 PM [employer] COLLECTOR ECG 12-LEAD STAT 07/22/2018 7:44 PM [employer] COL[employer]OR POCT-LACTIC ACID, VENOUS Routine 07/22/2018 2:50 PM [employer] COLLECTOR CBC W/PLT COUNT & AUTO STAT 07/22/2018 DIFFERENTIAL 2:39 PM [employer] COLLECTOR LIPASE STAT 07/22/2018 2:39 PM [employer] COLLECTOR HEPATIC FUNCTION PANEL STAT 07/22/2018 2:39 PM [employer] COL[employer]OR BASIC METABOLIC PANEL (7) STAT 07/22/2018 2:39 PM [employer] COLLECTOR CBC W/PLT COUNT & AUTO STAT 07/22/2018 DIFFERENTIAL 2:39 PM [employer] COLLECTOR RHYTHM STRIP - SCAN 06/07/2018 3:00 PM [employer] COLLECTOR POCT-GLUCOSE METER Routine 06/06/2018 3:47 PM [employer] COLLECTOR POCT-GLUCOSE METER Routine 06/06/2018 10:50 AM [employer] COLLECTOR POCT-GLUCOSE METER Routine 06/06/2018 6:37 AM [employer] COLLECTOR CBC W/PLT COUNT & AUTO Routine 06/06/2018 DIFFERENTIAL 4:46 AM [employer] COLLECTOR PHOSPHORUS Routine 06/06/2018 4:46 AM TR[employer]LEY COLLECTOR CBC W/PLT COUNT & AUTO Routine 06/06/2018 DIFFERENTIAL 4:46 AM [employer] COLLECTOR COMPREHENSIVE METABOLIC Routine 06/06/2018 PANEL 4:46 AM [employer]LEY COLLECTOR POCT-GLUCOSE METER Routine 06/05/2018 8:39 PM [employer] COLLECTOR POCT-GLUCOSE METER Routine 06/05/2018 4:36 PM [employer] COLLECTOR POCT-GLUCOSE METER Routine 06/05/2018 11:34 AM [employer]LEY COLLECTOR POCT-GLUCOSE METER Routine 06/05/2018 5:41 AM [employer] COLLECTOR POCT-GLUCOSE METER Routine 06/04/2018 9:00 PM [employer] COLLECTOR POCT-GLUCOSE METER Routine 06/04/2018 6:45 PM [employer]LEY COLLECTOR POCT-GLUCOSE METER Routine 06/04/2018 1:22 PM [employer] COLLECTOR POCT-GLUCOSE METER Routine 06/04/2018 12:20 PM [employer]LEY COLLECTOR POCT-GLUCOSE METER Routine 06/04/2018 11:54 AM [employer] COLLECTOR HEMODIALYSIS INPATIENT Routine 06/04/2018 7:58 AM [employer] COLLECTOR POCT-GLUCOSE METER Routine 06/04/2018 6:41 AM TROLLEY COLLECTOR POCT-GLUCOSE METER Routine 06/04/2018 5:28 AM [employer] COLLECTOR CBC W/PLT COUNT & AUTO Routine 06/04/2018 DIFFERENTIAL 5:22 AM [employer] COLLECTOR PHOSPHORUS Routine 06/04/2018 5:22 AM [employer] COLLECTOR COMPREHENSIVE METABOLIC Routine 06/04/2018 PANEL 5:22 AM [employer]LEY COLLECTOR CBC W/PLT COUNT & AUTO Routine 06/04/2018 DIFFERENTIAL 5:22 AM [employer]LEY COLLECTOR POCT-GLUCOSE METER Routine 06/03/2018 8:49 PM [employer]OLLEY COLLECTOR REPORT OF PROCEDURE - 06/03/2018 ENDOSCOPY SCAN 4:36 PM [employer]LEY COLLECTOR POCT-GLUCOSE METER Routine 06/03/2018 4:21 PM [employer]LEY COLLECTOR POCT-GLUCOSE METER Routine 06/03/2018 11:05 AM [employer] COLLECTOR POCT-GLUCOSE METER Routine 06/03/2018 6:[address] ABDOMEN/PELVIS WITH IV STAT 06/03/2018 CONTRAST 3:14 AM [employer] COLLECTOR HCG, SERUM, QUALITATIVE STAT 06/03/2018 2:14 AM [employer] COLLECTOR PT/APTT STAT 06/02/2018 11:39 PM [employer] COL[employer]OR LACTIC ACID, VENOUS STAT 06/02/2018 11:39 PM [employer] COLLECTOR MAGNESIUM STAT 06/02/2018 11:38 PM [employer] COLLECTOR TROPONIN I STAT 06/02/2018 11:38 PM [employer]LEY COLLECTOR LIPASE STAT 06/02/2018 11:38 PM [employer] COLLECTOR COMPREHENSIVE METABOLIC STAT 06/02/2018 PANEL 11:38 PM [employer] COLLECTOR CBC W/PLT COUNT & AUTO STAT 06/02/2018 DIFFERENTIAL 11:31 PM [employer] COLLECTOR CBC W/PLT COUNT & AUTO STAT 06/02/2018 DIFFERENTIAL 11:31 PM [employer] COL[employer]OR RAPID INFLUENZA A&B STAT 06/02/2018 SCREEN 10:57 PM [employer]OLLEY COLLECTOR XR CHEST 1 VIEW STAT 06/02/2018 PORTABLE/BEDSIDE 9:00 PM TR[employer]LEY COLLECTOR ED ECG INTERPRETATION Routine 06/02/2018 8:42 PM [employer] COL[employer]OR RHYTHM STRIP - SCAN 05/26/2018 11:55 AM [employer]LEY COLLECTOR REPORT OF PROCEDURE - 05/26/2018 ENDOSCOPY SCAN 11:55 AM TR[employer]LEY COLLECTOR POCT-GLUCOSE METER Routine 05/24/2018 4:18 PM [employer]LEY COLLECTOR POCT-GLUCOSE METER Routine 05/24/2018 11:24 AM [employer] COLLECTOR HEMODIALYSIS INPATIENT Routine 05/24/2018 8:22 AM TR[employer]LEY COLLECTOR POCT-GLUCOSE METER Routine 05/24/2018 5:27 AM [employer] COLLECTOR POCT-GLUCOSE METER Routine 05/23/2018 8:36 PM [employer] COLLECTOR POCT-GLUCOSE METER Routine 05/23/2018 4:03 PM [employer] COLLECTOR POCT-GLUCOSE METER Routine 05/23/2018 11:21 AM [employer]LEY COLLECTOR POCT-GLUCOSE METER Routine 05/23/2018 6:43 AM [employer] COLLECTOR CBC W/PLT COUNT & AUTO Routine 05/23/2018 DIFFERENTIAL 5:23 AM [employer] COLLECTOR BASIC METABOLIC PANEL (7) Routine 05/23/2018 5:23 AM [employer]LEY COLLECTOR CBC W/PLT COUNT & AUTO Routine 05/23/2018 DIFFERENTIAL 5:23 AM [employer] COLLECTOR POCT-GLUCOSE METER Routine 05/22/2018 8:50 PM [employer] COLLECTOR POCT-GLUCOSE METER Routine 05/22/2018 4:47 PM [employer] COLLECTOR POCT-GLUCOSE METER Routine 05/22/2018 11:49 AM [employer]LEY COLLECTOR POCT-GLUCOSE METER Routine 05/22/2018 6:10 AM [employer] COLLECTOR CBC W/PLT COUNT & AUTO Routine 05/22/2018 DIFFERENTIAL 4:55 AM [employer]LEY COLLECTOR BASIC METABOLIC PANEL (7) Routine 05/22/2018 4:55 AM [employer]LEY COLLECTOR CBC W/PLT COUNT & AUTO Routine 05/22/2018 DIFFERENTIAL 4:55 AM [employer]LEY COLLECTOR POCT-GLUCOSE METER Routine 05/21/2018 9:04 PM CDT [...] AUTO STAT 03/01/2018 DIFFERENTIAL 12:02 AM CDT after 02/06/2018 Results * RHYTHM STRIP - SCAN (02/01/2019 11:02 AM CDT) Only the most recent of 6 results within the time period is included. Narrative Performed At * EKG-SCANNED (01/31/2019 8:50 AM CDT) Only the most recent of 3 results within the time period is included. Narrative Performed At * POC-Glucose meter (01/28/2019 11:46 AM CDT) Only the most recent of 94 results within the time period is included. POC-Glucose Meter 111 (H)Comment: TESTED AT [facility] 70 - 110 mg/dL [facility] [address] [place] [address] Specimen Blood Performing Organization Address City/State/Zipcode Phone Number [facility] [address] [place] [address] [facility] * CBC with platelet count + automated diff (01/27/2019 5:28 AM CDT) Only the most recent of 22 results within the time period is included. WBC 4.5 4.0 - 10.0 K/L [facility] RBC 3.04 (L) 4.00 - 5.00 M/L [facility] Hemoglobin 9.0 (L) 12.0 - 15.5 GM/DL [facility] Hematocrit 29.0 (L) 36.0 - 46.0 % [facility] MCV 95.4 82.0 - 99.0 fL [facility] MCH 29.6 27.0 - 33.0 pg [facility] MCHC 31.0 (L) 32.0 - 36.0 GM/DL [facility] RDW 16.0 (H) 12.0 - 15.0 % [facility] Platelets 167 150 - 430 K/CU MM [facility] MPV 9.8 6.0 - 11.5 fL [facility] nRBC 0 0 - 0 /100 WBC [facility] % Neutros 67 % [facility] % Lymphs 14 % [facility] % Monos 11 % [facility] % Eos 8 % [facility] % Baso 0 % [facility] # Neutros 2.99 1.80 - 8.00 K/L [facility] # Lymphs 0.61 (L) 1.48 - 4.50 K/L [facility] # Monos 0.47 0.00 - 1.30 K/L [facility] # Eos 0.36 0.00 - 0.50 K/L [facility] # Baso 0.02 0.00 - 0.20 K/L [facility] Immature 1 (H) 0 - 0 % [facility] Specimen Blood Performing Organization Address City/[facility]/Zipcode Phone Number [facility] [address] [place], [place] [phone] * Phosphorus (01/27/2019 5:28 AM CDT) Only the most recent of 9 results within the time period is included. Phosphorus 6.2 (H) 2.5 - 4.5 mg/dL [facility] Specimen Blood Performing Organization Address City/[facility]/Zipcode Phone Number [facility] [address] [place], [place] [phone] * Basic Metabolic Panel (01/27/2019 5:28 AM CDT) Only the most recent of 9 results within the time period is included. Sodium 136 135 - 148 meq/L [facility] Potassium 4.1 3.6 - 5.5 meq/L [facility] Chloride 96 (L) 98 - 106 meq/L [facility] CO2 28 20 - 29 meq/L [facility] BUN 29 (H) 10 - 26 mg/dL [facility] Creatinine 5.62 (H) 0.50 - 1.20 mg/dL [facility] Glucose 124 (H) 70 - 110 mg/dL [facility] Calcium 8.9 8.5 - 10.5 mg/dL [facility] EGFR 11Comment: ESTIMATED GFR IS mL/min/1.73 sq m [facility] NOT ACCURATE CREATININE [facility]ATORY CLEARANCE IN PREDICTING GLOMERULAR FILTRATION RATE. ESTIMATED GFR IS NOT APPLICABLE FOR DIALYSIS PATIENTS. Specimen Blood Performing Organization Address City/State/Zipcode Phone Number [facility] [address] [place] [address] * Comprehensive metabolic panel (01/26/2019 3:59 AM CDT) Only the most recent of 13 results within the time period is included. Protein, Total 7.0 6.0 - 8.5 gm/dL [facility] Albumin 4.0 3.5 - 5.0 g/dL [facility] Alkaline Phosphatase 98 30 - 115 U/L [facility] Total Bilirubin 0.5 0.1 - 1.2 mg/dL [facility] Sodium 136 135 - 148 meq/L [facility] Potassium 4.2 3.6 - 5.5 meq/L [facility] Chloride 89 (L) 98 - 106 meq/L [facility] CO2 32 (H) 20 - 29 meq/L [facility] BUN 33 (H) 10 - 26 mg/dL [facility] Creatinine 7.92 (H) 0.50 - 1.20 mg/dL [facility] Glucose 189 (H) 70 - 110 mg/dL [facility] Calcium 9.3 8.5 - 10.5 mg/dL [facility] AST 12 5 - 40 U/L [facility] ALT 17 5 - 50 U/L [facility] EGFR 7Comment: ESTIMATED GFR IS NOT mL/min/1.73 sq m [facility] CLEARANCE IN PREDICTING GLOMERULAR FILTRATION RATE. ESTIMATED GFR IS NOT APPLICABLE FOR DIALYSIS PATIENTS. Specimen Blood Performing Organization Address City/State/Zipcode Phone Number [facility] [address] [place] [address] * Hepatitis B surface antibody (01/24/2019 10:01 AM CDT) Only the most recent of 2 results within the time period is included. Hep B S Ab 5,086.3 (H) <8.0 mIU/mL [facility] Specimen Blood Performing Organization Address City/State/Zipcode Phone Number [facility] [address] [place], [place] [id number] [facility] * Hepatitis B surface antigen (01/24/2019 10:01 AM CDT) Only the most recent of 4 results within the time period is included. hepatitis B Surface Ag Nonreactive Nonreactive [facility] Specimen Blood Performing Organization Address City/State/Zipcode Phone Number [facility] [address] [place] [address] * CT abdomen/pelvis with IV contrast (01/23/2019 7:37 PM CDT) Only the most recent of 3 results within the time period is included. Specimen Narrative Performed At FINAL REPORT [facility] CLINICAL HISTORY: Abdominal pain, history of Crohn's disease FINDINGS: Multiple axial images of the abdomen and pelvis were performed after the uncomplicated administration of IV contrast. Oral contrast was not given. This exam was performed according to our departmental dose-optimization program, which includes automated exposure control, adjustment of the mA and/or kV according to patient size and/or use of the iterative reconstruction technique. Comparison: 01/01/2019 Lower chest: Clear lungs. No pleural effusion or pneumothorax. Visualized cardiac contours normal. Liver: No significant findings. Gallbladder and biliary tree: Previous cholecystectomy. No biliary ductal dilatation. Spleen: No significant findings. Adrenal Glands: No significant findings. 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 Stomach and Duodenum: A gastrojejunal tube is in place. The gastrostomy bulb is in the proximal stomach. The jejunostomy tube is looped in the stomach with the tip in the proximal gastric lumen. Pancreas: No significant findings. Bowel: No bowel obstruction or pneumatosis intestinalis. No CT evidence of active bowel inflammation. Appendix: Normal. Bladder: Decompressed Major vascular structures: No significant findings. Reproductive organs: No significant findings. Other: No free air, fluid or adenopathy Skeleton: No acute bony abnormality. IMPRESSION: No acute abnormality to explain the patient's pain. A gastrojejunostomy tube tip is in the proximal stomach. Repositioning may be in order. Signed: Douglas Maldonado MD Report Verified Date/Time:01/23/2019 20:21:01 Reading Location: [address] Reading Room Procedure Note Interface, External Ris In - 01/23/2019 8:23 PM CDT FINAL REPORT CLINICAL HISTORY: Abdominal pain, history of Crohn's disease FINDINGS: Multiple axial images of the abdomen and pelvis were performed after the uncomplicated administration of IV contrast. Oral contrast was not given. This exam was performed according to our departmental dose-optimization program, which includes automated exposure control, adjustment of the mA and/or kV according to patient size and/or use of the iterative reconstruction technique. Comparison: 01/01/2019 Lower chest: Clear lungs. No pleural effusion or pneumothorax. Visualized cardiac contours normal. Liver: No significant findings. Gallbladder and biliary tree: Previous cholecystectomy. No biliary ductal dilatation. Spleen: No significant findings. Adrenal Glands: No significant findings. 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 Stomach and Duodenum: A gastrojejunal tube is in place. The gastrostomy bulb is in the proximal stomach. The jejunostomy tube is looped in the stomach with the tip in the proximal gastric lumen. Pancreas: No significant findings. Bowel: No bowel obstruction or pneumatosis intestinalis. No CT evidence of active bowel inflammation. Appendix: Normal. Bladder: Decompressed Major vascular structures: No significant findings. Reproductive organs: No significant findings. Other: No free air, fluid or adenopathy Skeleton: No acute bony abnormality. IMPRESSION: No acute abnormality to explain the patient's pain. A gastrojejunostomy tube tip is in the proximal stomach. Repositioning may be in order. Signed: Douglas Maldonado MD Report Verified Date/Time: 01/23/2019 20:21:01 Reading Location: [address] Reading Room Performing Organization Address City/State/Zipcode Phone Number [facility] * hCG, quantitative, (01/23/2019 6:37 PM CDT) Only the most recent of 3 results within the time period is included. hCG Quant <2 0 - 10 mIU/mL [facility] [employer] [facility] Specimen Blood Narrative Performed At Non- Females: <10 mIU/mL [facility]: LABORATORY Gestation AgeReference Range(mIU/mL) 0.2-1 Week5-50 1-2 Codbs70-213 2-3 Weeks 100-5,000 3-4 Weeks 500-10,000 4-5 Weeks 1,000-50,000 5-6 Weeks10,000-100,000 6-8 Weeks15,000-200,000 2-3 Months 10,000-100,000 Performing Organization Address City/State/[facility] Centercode Phone Number [employer] LAB[facility]AT[facility] [place], [place] [address] * Magnesium (01/23/2019 6:37 PM CDT) Only the most recent of 4 results within the time period is included. Magnesium 2.0 1.5 - 3.0 mg/dL [employer] LABORAT[facility] Specimen Blood Performing Organization Address City/[facility] Centerco[facility]It Phone Number [employer] [facility] [place], [place] [address] * ECG/EKG Interpretation (01/23/2019 4:04 PM CDT) Only the most recent of 4 results within the time period is included. Narrative Performed At Bud Pruitt MD 01/27/20193:00 PM ECG/EKG Interpretation Date/Time: 01/23/2019 4:12 PM Performed by: Bud Pruitt MD Authorized by: Bud Pruitt MD The ECG was interpreted by ED physician. The ECG is interpreted as sinus tachycardia. Rate is tachycardic. Heart rate is 115 BPM. Conduction: conduction normal. ST segments normal. T waves abnormal. Nicasio is normal. Clinical Impression: abnormal ECGECG reviewed and does not meet STEMI criteria. Patient tolerance: Patient tolerated the procedure well with no immediate complications * C-Reactive Protein (01/02/2019 3:08 PM CDT) Only the most recent of 3 results within the time period is included. CRP 0.26 0.00 - 0.50 mg/dL [facility] Specimen Blood Performing Organization Address [facility] Centerconc Phone Number [facility] [address] [place] [address] MEDICAL CENTER * ECG 12 lead (01/01/2019 11:59 AM CDT) Only the most recent of 2 results within the time period is included. Specimen Narrative Performed At Ventricular Rate 101 BPM [facility] Atrial Rate 101 BPM P-R Interval 146 ms QRS Duration 90 ms Q-T Interval 390 ms QTC Calculation(Bazett) 505 ms P Nicasio 66 degrees R Nicasio 32 degrees T Nicasio 57 degrees Sinus tachycardia Minimal voltage criteria for LVH, may be normal variant Nonspecific T wave abnormality Prolonged QT When compared with ECG of 22-JUL-2018 19:44, There are now voltage criteria for LVH Criteria for anteroapical infarctare no longer Present T wave amplitude has decreased in Inferior leadsand lateral leads QT has lengthened Confirmed by MD SUN YOCHAI ([id number]) on 01/02/2019 6:55:36 AM Procedure Note Interface, External Ris In - 01/02/2019 6:55 AM CDT Ventricular Rate 101 BPM Atrial Rate 101 BPM P-R Interval 146 ms QRS Duration 90 ms Q-T Interval 390 ms QTC Calculation(Bazett) 505 ms P Nicasio 66 degrees R Nicasio 32 degrees T Nicasio 57 degrees Sinus tachycardia Minimal voltage criteria for LVH, may be normal variant Nonspecific T wave abnormality Prolonged QT When compared with ECG of 22-JUL-2018 19:44, There are now voltage criteria for LVH Criteria for anteroapical infarct are no longer Present T wave amplitude has decreased in Inferior leads and lateral leads QT has lengthened Confirmed by MD SUN YOCHAI ([id number]) on 01/02/2019 6:55:36 AM Performing Organization Address City/State/Zipcode Phone Number [employer] * Troponin I (01/01/2019 8:15 AM CDT) Only the most recent of 3 results within the time period is included. Troponin I 0.05 (H) 0.00 - 0.03 ng/mL [facility] Specimen Blood Narrative Performed At Troponin I (TnI) levels must be interpreted in the context of the presenting [facility] symptoms and the clinical findings. Elevated TnI levels indicate myocardial [facility] damage, but are not specific for ischemic heart disease. Elevated TnI levels are seen in patients with other cardiac conditions (including myocarditis and congestive heart failure), and slight TnI elevations occur in patients with other conditions, including sepsis, renal failure, acidosis, acute neurological disease, and persistent tachyarrhythmia. Performing Organization Address City/[facility] Centercode Phone Number [address] [address] [facility] * Lipase (01/01/2019 8:15 AM CDT) Only the most recent of 4 results within the time period is included. Lipase 16 8 - 78 U/L [facility] Specimen Blood Performing Organization Address [facility] Phone Number [address] [address] [facility] * Hepatic function panel (01/01/2019 8:15 AM CDT) Only the most recent of 2 results within the time period is included. Protein, Total 8.1 6.0 - 8.3 gm/dL [facility] Albumin 4.5 3.5 - 5.0 g/dL [facility] Total Bilirubin 0.5 0.2 - 1.2 mg/dL [facility] Bilirubin, Direct 0.2 0.1 - 0.5 mg/dL [facility] Alkaline Phosphatase 102 40 - 150 U/L [facility] AST 12 5 - 34 U/L [facility] ALT 8 6 - 55 U/L [facility] Specimen Blood Performing Organization Address [facility] Centerconc Phone Number [address] [address] [facility] * Transfuse Leuko-Red RBC (08/25/2018 5:21 PM [employer]OLLEY COLLECTOR) Only the most recent of 2 results within the time period is included. * HEMODIALYSIS INPATIENT (07/23/2018 12:06 PM [employer]OLLEY COLLECTOR) Narrative Performed At Ethan Tran RN 07/23/2018 [...] Pt alert and oriented x 4.. * Potassium (07/23/2018 4:15 AM [employer]OLLEY COLLECTOR) Potassium 4.4 3.5 - 5.1 meq/L [facility] Specimen Blood Performing Organization Address City/State/Zipcode Phone Number [facility] [address] [place] [address] MEDICAL CENTER * Prothrombin time/INR (07/23/2018 3:52 AM TROLLEY COLLECTOR) Protime 14.1 11.7 - 14.7 seconds [facility] INR 1.1 <=5.9 [facility] Specimen Blood Narrative Performed At RECOMMENDED COUMADIN/WARFARIN INR THERAPY RANGES [facility] STANDARD DOSE: 2.0 - 3.0 Includes: PROPHYLAXIS for venous thrombosis, [facility] systemic embolization; TREATMENT for venous thrombosis and/or pulmonary embolus. HIGH RISK: Target INR is 2.5-3.5 for patients with mechanical heart valves. Performing Organization Address City/State/Zipcode Phone Number [facility] [address] [place], [place] [phone] [facility] * Ketone, blood (07/23/2018 3:52 AM [employer]OLLEY COLLECTOR) Only the most recent of 3 results within the time period is included. Ketones, Blood 0.8 (H) <0.4 mmol/L [facility] Specimen Blood Performing Organization Address City/State/Zipcode Phone Number [facility] [address] [place], [place] [phone] [facility] * CT abdomen/pelvis without iv contrast (07/22/2018 11:20 PM [employer]OLLEY COLLECTOR) Only the most recent of 3 results within the time period is included. Specimen Narrative Performed At FINAL REPORT [employer] TECHNIQUE: CT of the abdomen and pelvis [...] MD Report Verified Date/Time:07/22/2018 23:32:54 Reading Location: [address] Consult Reading Room Procedure Note Interface, External Ris In - 07/22/2018 11:35 PM [employer]OLLEY COLLECTOR FINAL REPORT TECHNIQUE: CT of the abdomen [...] Report Verified Date/Time: 07/22/2018 23:32:54 Reading Location: [address] Consult Reading Room Performing Organization Address City/State/Zipcode Phone Number [facility] * HIV-1 Antigen with HIV-1/2 Antibody (07/22/2018 10:52 PM TROLLEY COLLECTOR) HIV-1 Antigen with HIV Nonreactive Nonreactive [facility] 1&2 Antibody [facility] Specimen Blood Performing Organization Address City/State/Zipcode Phone Number [facility] [address] [place] [address] [facility] * XR chest 1 view portable / bedside (07/22/2018 9:40 PM [employer]OLLEY COLLECTOR) Only the most recent of 3 results within the time period is included. Specimen Narrative Performed At FINAL REPORT [facility] Chest, one view. HISTORY: Nausea, emesis, abdominal [...] MD Report Verified Date/Time:07/22/2018 22:04:33 Reading Location: [address] Consult Reading Room Procedure Note Interface, External Ris In - 07/22/2018 10:15 PM [employer]LEY COLLECTOR FINAL REPORT Chest, one view. HISTORY: Nausea, [...] Report Verified Date/Time: 07/22/2018 22:04:33 Reading Location: [facility] B1 [id number] Consult Reading Room Performing Organization Address City/[facility]/Zipcode Phone Number [facility] * Lactic acid, venous, whole blood (07/22/2018 9:21 PM [employer]OLLEY COLLECTOR) Only the most recent of 3 results within the time period is included. Lactate, Venous 1.1Comment: Specimen slightly 0.5 - 2.2 mmol/L [facility] hemolyzed [facility] Specimen Blood Performing Organization Address City/State/Zipcode Phone Number [address] * Blood culture (07/22/2018 9:21 PM TROLLEY COLLECTOR) Only the most recent of 4 results within the time period is included. Result No growth in 5 days [facility] Specimen Blood Performing Organization Address [facility] Centercode Phone Number [address] * Fibrinogen (07/22/2018 8:19 PM TROLLEY COLLECTOR) Fibrinogen 416 225 - 434 mg/dl [facility] Specimen Blood Performing Organization Address City/[facility]/Zipcode Phone Number [address] * Hemoglobin A1c (07/22/2018 8:19 PM [employer]OLLEY COLLECTOR) Hemoglobin A1C 5.3 4.3 - 6.1 % [facility] Specimen Blood Performing Organization Address City/[facility] Centercode Phone Number [address] * CRITICAL CARE (07/22/2018 8:12 PM [employer]OLLEY COLLECTOR) Narrative Performed At Arturo Duke MD 07/22/2018 10:27 PM Critical Care Performed by: Arturo Duke MD Authorized by: Arturo uDke MD Total critical care time: 45 minutes [...] condition and review of old charts. * POC-Lactic Acid, Venous (07/22/2018 2:50 PM [employer]OLLEY COLLECTOR) POC-Lactic Acid, Venous 2.3 (H)Comment: TESTED AT 0.9 - 1.7 mmol/L [facility] [address] [place] [address] Specimen Blood Performing Organization Address City/[facility]/Zipcode Phone Number [address] [phone] [facility] * hCG, serum, qualitative (06/03/2018 2:14 AM [employer]OLLEY COLLECTOR) Only the most recent of 2 results within the time period is included. Preg Test, Serum Negative [facility] Specimen Body Fluid Performing Organization Address [facility] Centerconc Phone Number [facility] [address] [place] [phone] * PT/aPTT (06/02/2018 11:39 PM [employer]OLLEY COLLECTOR) Protime 11.0 9.3 - 12.0 sec [facility] INR 1.0 <=5.9 [facility] PTT 30.1 23.0 - 35.0 sec [facility] Specimen Blood Narrative Performed At RECOMMENDED COUMADIN/WARFARIN INR THERAPY RANGES [facility] STANDARD DOSE: 2.0 - 3.0 Includes: PROPHYLAXIS for venous thrombosis, LABORATORY systemic embolization; TREATMENT for venous thrombosis and/or pulmonary embolus. HIGH RISK: Target INR is 2.5-3.5 for patients with mechanical heart valves. Final Information (Auto Output) Final Information (Auto Output) Final Information (Auto Output) Performing Organization Address City/[facility]/Zipcode Phone Number [address] [address] * Rapid Influenza A&B Screen (06/02/2018 10:57 PM TROLLEY COLLECTOR) Rapid Influenza A Antigen Negative Negative, Inconclusive [facility] Rapid influenza B Antigen Negative Negative, Inconclusive [facility] Specimen Nasal Performing Organization Address City/State/Zipcode Phone Number [facility] [address] [facility] [facility] [place] [address] * CT chest without IV contrast (05/19/2018 9:53 PM CDT) Specimen Narrative Performed At FINAL REPORT [facility] [facility] DOSE REDUCTION: The examination was performed [...] Report Verified Date/Time: 05/19/2018 22:12:17 Reading Location: [facility] Reading Room Performing Organization Address City/State/Zipcode Phone Number [facility] * Blood gas, arterial (05/19/2018 8:04 PM CDT) pH, Arterial 7.42 7.35 - 7.45 [facility] pCO2, Arterial 41 35 - 45 mm Hg [facility] pO2, Arterial 94 (H) 80 - 90 mm Hg [facility] O2 Sat, Arterial 97.3 (H) 96.0 - 97.0 % [facility] HCO3, Arterial 26 21 - 29 mmol/L [facility] Base Excess, Arterial 1.0 -2.0 - 3.0 mmol/L [facility] Patient Temperature 37.0 [facility] FIO2 21 [facility] Specimen Blood, Arterial Performing Organization Address City/State/Zipcode Phone Number [facility] [address] [place], [place] [phone] * Urinalysis w/Microscopic (05/17/2018 11:38 AM CDT) Color, UA Yellow [facility] Clarity, UA Slightly Cloudy [facility] Specific Mcgregor, UA 1.015 1.001 - 1.035 [facility] pH, UA 8.0 5.0 - 8.0 [facility] Protein, UA >=300 mg/dL (A) Negative [facility] Glucose, UA >=1000 mg/dL (A) Negative [facility] Ketones, UA Negative Negative [facility] Bilirubin, UA Negative Negative [facility] Blood, UA Trace (A) Negative [facility] Nitrite, UA Negative Negative [facility] Leukocytes, UA Negative Negative [facility] Urobilinogen, UA 0.2 0.2 - 1.0 mg/dL [facility] Bacteria, UA Many [facility] RBC, UA <5 /HPF [facility] WBC, UA 5-10 /HPF [facility] SQUAMOUS EPITHELIAL 5-10 /HPF [facility] Specimen Source [facility] Specimen Urine Performing Organization Address City/[facility] Centercode Phone Number [facility] [address] [place], [place] [phone] * ECHOCARDIOGRAM REPORT - SCAN (03/26/2018 12:20 PM CDT) Narrative Performed At * Ferritin (03/04/2018 5:20 AM CDT) Ferritin 472 (H) 10 - 291 ng/mL [facility] Specimen Blood Performing Organization Address [facility] Centercode Phone Number [facility] [place] [address] [facility] [place] [address] * Iron, TIBC, % sat. (without ferritin) (03/04/2018 5:19 AM CDT) Iron 84 40 - 160 ug/dL [facility] TIBC 240 (L) 250 - 450 ug/dL [facility] Iron % Saturation 35 20 - 55 % [facility] Specimen Blood Performing Organization Address [facility] Centercode Phone Number [address] [address] MEDICAL CENTER * 2D Echo W/Doppler(CW/PW/Color) (03/03/2018 1:04 PM CDT) Ejection Fraction [facility] [place] Specimen Narrative Performed At Transthoracic Echocardiography Report (TTE) [facility] Demographics [place] Patient NameMITCHELL, WHITNEYDate of Study 03/03/2018 SUKHDEEP SERRATO GenderFemale Visit [id number] RaceBlack Number [id number] Number Date of 1990 Referring Kimberly back 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 rpretingIsmail Darrell back Procedure Type of Study TTE procedure:2DECHO [...] 03/03/2018 SUKHDEEP SERRATO Gender Female Visit Number [id number] Race Black Room Number [id number] Number Date of 1990 Referring Physician 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 Interpreting Christin Ramírez MD Physician [...] Peak Gradient: 6.97 mmHg Performing Organization Address [facility] Centerconc Phone Number [facility] MKCKESSON [facility] * PTH, intact (03/03/2018 10:04 AM CDT) PTH 272.1 (H) 15.0 - 90.0 pg/mL [facility] Specimen Blood Performing Organization Address [facility] Phone Number [facility] [place] [address] [facility] [place] [address] * Blood gas, venous (03/01/2018 12:42 AM [...] [facility] Specimen Blood Performing Organization Address City/[facility]conc Phone Number [facility] [address] [place] [address] [facility] [address] [place], [place] [address] * Manual Differential (03/01/2018 12:02 AM CDT) [...] [facility] Specimen Blood Performing Organization Address [facility] Phone Number [facility] [address] [place] [address] [facility] [address] [place] [place] [address] after 02/06/2018 Insurance Payer Benefit Subscriber ID Type Phone Address Plan / Group MEDICARE MEDICARE A xxxxxxxxxxx Medicare B MEDICAID MEDICAID xxxxxxxxx Medicaid OF [place] Advance Directives For more information, please contact: [facility] [address] [place] [address] Date Inactivated Comments Code Status Date Activated 01/28/2019 5:55 PM Full Code 01/23/2019 11:00 PM This code status was determined by: Patient 01/02/2019 8:22 PM Full Code 01/01/2019 6:53 AM This code status was determined by: Patient 01/01/2019 6:13 AM Full Code 07/22/2018 7:28 PM This code status was determined by: Patient 07/22/2018 1:38 PM Full Code 06/03/2018 4:18 AM This code status was determined by: Patient 06/02/2018 8:17 PM Full Code 05/17/2018 8:15 PM This code status was determined by: Patient
[2019-02-07] MEDS ORDERED: PROMETHAZINE 25MG/ NS 50ML (IV) IV ONE (19:15)
[2019-02-07] MEDS ORDERED: DIPHENHYDRAMINE HCL INJ 50 MG/ML VIAL IV ONE (19:15)
[2019-02-07] MEDS ORDERED: FAMOTIDINE 20 MG/2 ML VIAL IV ONE (19:15)
[2019-02-07] MEDS ORDERED: PROMETHAZINE HCL (IM) 25 MG/ML VIAL IM ONE (20:30)
[2019-02-07] MEDS ORDERED: CLONIDINE HCL 0.1 MG TAB ONE (20:35)
[2019-02-07] MEDS ORDERED: MORPHINE SULFATE INJ 4 MG/ML INJ 1ML ONE (20:36)
[2019-02-07] MEDS ORDERED: MORPHINE SULFATE INJ 4 MG/ML INJ 1ML IM ONE (20:45)
[2019-02-07] MEDS: CLONIDINE HCL 0.2 MG TAB PO NR ×2 (20:45→21:46)
[2019-02-07] MEDS ORDERED: LABETALOL HCL 5 MG/ML 20ML VIAL IV STA (21:34)
[2019-02-07] MEDS ORDERED: PROMETHAZINE HCL (IM) 25 MG/ML VIAL ONE (21:40)
[2019-02-07] MEDS ORDERED: ZOLPIDEM TARTRATE 5 MG TAB PO PRN (21:45)
[2019-02-07] MEDS ORDERED: DIPHENHYDRAMINE HCL INJ 50 MG/ML VIAL IV PRN (21:45)
[2019-02-07] MEDS ORDERED: CLONIDINE HCL 0.2 MG TAB PO PRN (21:45)
[2019-02-07] MEDS ORDERED: SODIUM CHLORIDE FLUSH 10 ML SYR INJ PRN (21:45)
--- NOTE | 2019-02-07 21:47 | Diagnostic Imaging Report ---
EXAM: Abdomen 2 radiograph and a frontal chest x-ray INDICATION: Abdominal pain nausea and vomiting COMPARISON: Chest x-ray and CT abdomen/pelvis dated 02/13/2018 FINDINGS: No lung consolidation. No pneumothorax or pleural effusion. Normal cardiac silhouette. Tubing overlying left upper quadrant, representing PEG tube. Heart upper quadrant surgical clips. Nonobstructive bowel gas pattern. No signs of pneumoperitoneum. No acute osseous abnormality. Pelvic phleboliths. IMPRESSION: 1. Nonobstructive bowel gas pattern. 2. No lung consolidation. Signed by: Dr. Lamont Richards MD on 02/07/2019 9:43 PM
--- OUTSIDE RECORDS SUMMARY | 2019-02-07 21:58 | XMS REPORT | Clinical Summary ---
Author Author [facility]iel [facility] Organization [facility] Address Unknown Phone Unavailable Care Team Providers Care Grab Jack Man Name Role Phone Asked, No Pcp PCP [...] clonIDINE Place 1 patch 4 patch 0 ([id number]) 0.2 (0.2 mg 8 mg/24 hr total) [...] Overview: Added automatically from request for surgery [id number] Hyperglycemia 06/22/2017 High anion gap metabolic acidosis [...] Marcia Westfall MD Gastroparesis (Primary Dx) 11/13/2018 [facility] General Internal Medicine - Encounter 11/22/2018 Ascencion [...] ESRD (end stage renal disease) (HCC) 06/25/2018 [facility] General Internal Medicine - Encounter 06/29/2018 Doris Jones III, MD Patel, Bhagwat Purushottam, MD Abdominal pain, unspecified abdominal location (Primary Dx); Intractable vomiting with nausea, unspecified vomiting type; Dehydration 04/01/2018 [facility] General Internal Medicine - Encounter 04/07/2018 Marcia Westfall MD Weakness (Primary Dx); Gastroparesis 03/19/2018 [facility] General Internal Medicine - Encounter 03/30/2018 Chava Guillen CRNA 02/11/2018 Anesthesia Gastroenterology Event [facility], Akash Teixeira MD COLONOSCOPY WITH BIOPSY 02/11/2018 Surgery Gastroenterology Tona Wiseman MD Pain of upper abdomen (Primary Dx) 02/09/2018 [facility] General Internal Medicine - Encounter 02/11/2018 SamEloina Lisa 02/09/2018 Orders Only Shop Coordinator after 02/06/2018 Immunizations Name Dates Previously Given [...] CDT POC GLUCOSE Routine 07/24/2018 4:13 PM WASTEWATER ENGINEER POC GLUCOSE Routine 07/24/2018 12:53 PM WASTEWATER ENGINEER POC GLUCOSE Routine 07/24/2018 8:32 AM WASTEWATER ENGINEER POC GLUCOSE Routine 07/24/2018 6:[address] ABDOMEN PELVIS WO STAT 07/23/2018 CONTRAST 9:36 PM WASTEWATER ENGINEER LACTIC ACID, I-STAT Timed 07/23/2018 8:16 PM WASTEWATER ENGINEER MANUAL DIFFERENTIAL STAT 07/23/2018 7:35 PM WASTEWATER ENGINEER ESTIMATED GFR STAT 07/23/2018 7:35 PM WASTEWATER ENGINEER AMYLASE LEVEL STAT 07/23/2018 7:35 PM WASTEWATER ENGINEER COMPREHENSIVE METABOLIC STAT 07/23/2018 PANEL 7:35 PM WASTEWATER ENGINEER CBC WITH PLATELET AND STAT 07/23/2018 DIFFERENTIAL 7:35 PM WASTEWATER ENGINEER POC GLUCOSE Routine 06/29/2018 11:10 AM WASTEWATER ENGINEER POC GLUCOSE Routine 06/29/2018 7:27 AM WASTEWATER ENGINEER ESTIMATED GFR Routine 06/29/2018 5:45 AM WASTEWATER ENGINEER HC COMPLETE BLD COUNT Routine 06/29/2018 W/AUTO DIFF 5:45 AM WASTEWATER ENGINEER BASIC METABOLIC PANEL Routine 06/29/2018 5:45 AM WASTEWATER ENGINEER POC GLUCOSE Routine 06/28/2018 9:34 PM WASTEWATER ENGINEER POC GLUCOSE Routine 06/28/2018 5:55 PM WASTEWATER ENGINEER POC GLUCOSE Routine 06/28/2018 2:32 PM WASTEWATER ENGINEER HEPATITIS B SURFACE Routine 06/28/2018 ANTIGEN 10:20 AM WASTEWATER ENGINEER POC GLUCOSE Routine 06/28/2018 6:01 AM WASTEWATER ENGINEER ESTIMATED GFR Routine 06/28/2018 6:00 AM WASTEWATER ENGINEER PHOSPHORUS LEVEL Routine 06/28/2018 6:00 AM WASTEWATER ENGINEER COMPREHENSIVE METABOLIC Routine 06/28/2018 PANEL 6:00 AM WASTEWATER ENGINEER HC COMPLETE BLD COUNT Routine 06/28/2018 W/AUTO DIFF 6:00 AM WASTEWATER ENGINEER POC GLUCOSE Routine 06/27/2018 10:02 PM WASTEWATER ENGINEER HEMODIALYSIS Routine 06/27/2018 6:54 PM WASTEWATER ENGINEER POC GLUCOSE Routine 06/27/2018 4:34 PM WASTEWATER ENGINEER POC GLUCOSE Routine 06/27/2018 11:17 AM WASTEWATER ENGINEER POC GLUCOSE Routine 06/27/2018 6:08 AM WASTEWATER ENGINEER ESTIMATED GFR Routine 06/27/2018 6:00 AM WASTEWATER ENGINEER PHOSPHORUS LEVEL Routine 06/27/2018 6:00 AM WASTEWATER ENGINEER COMPREHENSIVE METABOLIC Routine 06/27/2018 PANEL 6:00 AM WASTEWATER ENGINEER HC COMPLETE BLD COUNT Routine 06/27/2018 W/AUTO DIFF 6:00 AM WASTEWATER ENGINEER POC GLUCOSE Routine 06/26/2018 9:18 PM WASTEWATER ENGINEER POC GLUCOSE Routine 06/26/2018 4:41 PM WASTEWATER ENGINEER POC GLUCOSE Routine 06/26/2018 11:42 AM WASTEWATER ENGINEER ESTIMATED GFR Routine 06/26/2018 11:00 AM WASTEWATER ENGINEER COMPREHENSIVE METABOLIC Routine 06/26/2018 PANEL 11:00 AM WASTEWATER ENGINEER HC COMPLETE BLD COUNT Routine 06/26/2018 W/AUTO DIFF 11:00 AM WASTEWATER ENGINEER POC GLUCOSE Routine 06/26/2018 6:29 AM WASTEWATER ENGINEER BLOOD CULTURE, AEROBIC & Routine 06/26/2018 ANAEROBIC 2:50 AM WASTEWATER ENGINEER POC GLUCOSE Routine 04/07/2018 11:20 AM CDT [...] MMODE SPECTRAL 3:10 PM CDT COLOR DOPPLER ([id number]) HCG QUALITATIVE, SERUM Routine 02/09/2018 SCREEN 2:50 [...] glucose 172 (H) 65 - 99 mg/dL BO[facility] Comment: [facility]ARSANI SUGAR Meter ID: [id number] [facility] Road Design Engineer: Vicente Maloney Specimen Performing Organization Address City/State/Zipcode Phone Number [facility] [address] [place] [address] PATHOLOGY AND GENOMIC MEDICINE [address] * Estimated GFR (11/22/2018 7:10 AM CDT) Only the most recent of 16 results within the time period is included. [facility] Estimated GFR 8 (A) mL/min/1.73 m2 BOAZ Comment: [facility] rpretation G1 >=90 Normal or high G2 60-89Mildly decreased H1u00-06 Mildly to moderately decreased A3t72-07 Moderately to severely decreased G4 15-29Severely decreased G5 <15Kidney failure The eGFR was calculated using the Chronic Kidney Disease Epidemiology Collaboration (CKD-EPI) equation. Interpretation is based on recommendations of the National Kidney Foundation-Kidney Disease Outcomes Quality Initiative (NKF-KDOQI) published in 2014. Specimen Plasma specimen Performing Organization Address City/State/Zipcode Phone Number [facility] [place] [address] PATHOLOGY AND GENOMIC MEDICINE [address] * CBC with platelet and differential (11/22/2018 7:10 AM CDT) Only the most recent of 26 results within the time period is included. [facility] WBC 5.3 4.5 - 11.0 k/uL [facility] RBC 3.11 (L) 4.20 - 5.50 m/uL [facility] HGB 9.1 (L) 12.0 - 16.0 g/dL [facility] HCT 29.4 (L) 37.0 - 47.0 % [facility] MCV 94.5 82.0 - 100.0 fL [facility] MCH 29.3 27.0 - 34.0 pg [facility] MCHC 31.0 31.0 - 37.0 g/dL [facility] RDW - SD 56.7 (H) 37.0 - 55.0 fL [facility] MPV 9.9 6.9 - 11.0 fL [facility] Platelet count 222 150 - 400 K/uL [facility] Nucleated RBC 0.00 /100 WBC [facility] Neutrophils 59.0 39.0 - 69.0 % [facility] Lymphocytes 29.3 25.0 - 45.0 % [facility] Monocytes 6.2 0.0 - 10.0 % [facility] Eosinophils 4.0 0.0 - 5.0 % [facility] Basophils 0.4 0.0 - 1.0 % [facility] Immature 1.1 (H) 0.0 - 1.0 % [facility] granulocytes [facility] Specimen Blood Performing Organization Address City/State/Zipcode Phone Number [facility] DE[place]MENT [place] [id number] [place] [address] PATHOLOGY AND GENOMIC MEDICINE [address] * Phosphorus level (11/22/2018 7:10 AM CDT) Only the most recent of 14 results within the time period is included. Phosphorus 6.0 (H) 2.4 - 4.5 mg/dL [facility] Specimen Plasma specimen Performing Organization Address City/State/Zipcode Phone Number [facility] DEPARTMENT OF [address] [place] [address] PATHOLOGY AND GENOMIC MEDICINE [address] * Comprehensive metabolic panel (11/22/2018 7:10 AM CDT) Only the most recent of 16 results within the time period is included. Sodium 137 135 - 148 mEq/L [facility] Potassium 4.3 3.5 - 5.0 mEq/L [facility] Chloride 98 98 - 112 mEq/L [facility] CO2 24 24 - 31 mEq/L [facility] Anion gap 15@ANIO 7 - 15 mEq/L [facility] BUN 57 (H) 6 - 20 mg/dL [facility] Creatinine 7.34 (H) 0.50 - 0.90 mg/dL [facility] Glucose 60 (L) 65 - 99 mg/dL [facility] Calcium 9.6 8.3 - 10.2 mg/dL [facility] Protein 6.7 6.3 - 8.3 g/dL [facility] Albumin 3.8 3.5 - 5.0 g/dL [facility] A/G ratio 1.3 0.7 - 3.8 [facility] Alkaline 77 35 - 104 U/L [facility] phosphatase [facility] AST <5 (L) 10 - 35 U/L [facility] ALT 6 5 - 50 U/L [facility] Total bilirubin <0.2 0.2 - 1.2 mg/dL [facility] Specimen Plasma specimen Performing Organization Address [facility] Phone Number [facility] [place] [address] PATHOLOGY AND GENOMIC MEDICINE [address] * Basic metabolic panel (11/19/2018 6:15 AM CDT) Only the most recent of 11 results within the time period is included. Sodium 133 (L) 135 - 148 mEq/L [facility] Potassium 4.0 3.5 - 5.0 mEq/L [facility] Chloride 89 (L) 98 - 112 mEq/L [facility] CO2 29 24 - 31 mEq/L [facility] Anion gap 15@ANIO 7 - 15 mEq/L [facility] BUN 31 (H) 6 - 20 mg/dL [facility] Creatinine 5.99 (H) 0.50 - 0.90 mg/dL [facility] Glucose 212 (H) 65 - 99 mg/dL [facility] Calcium 9.7 8.3 - 10.2 mg/dL [facility] Specimen Plasma specimen Performing Organization Address [facility] Phone Number [facility] [place] [address] PATHOLOGY AND GENOMIC MEDICINE [address] * Hepatitis B surface antigen (11/15/2018 7:00 AM CDT) Only the most recent of 4 results within the time period is included. Hepatitis B Non-reactive Non-reactive [facility] Ag [facility] Specimen Blood Performing Organization Address City/State/Zipcode Phone Number [facility] [place] [address] [facility] [place] [address] PATHOLOGY AND GENOMIC MEDICINE [facility] [address] [facility] [address] [facility] * CT Abd/Pelvic External Study (11/13/2018 3:47 PM CDT) Specimen Narrative Performed At This exam was not acquired at a [facility] facility and has not been [facility] interpreted by a [facility] Provider.The exam was imported into our imaging system for comparisons purposes. Performing Organization Address City/State/Zipcode Phone Number [facility] [address] [place] [address] * CT Abdomen Pelvis Wo Contrast (07/23/2018 9:36 PM WASTEWATER ENGINEER) Specimen Narrative Performed At EXAMINATION:CT ABDOMEN PELVIS [...] suspicious for cystitis. Suggestion of fecal impaction. [facility]-[id number] Procedure Note Interface, Radiology Results Incoming - 07/23/2018 10:11 PM WASTEWATER ENGINEER EXAMINATION: CT ABDOMEN PELVIS WO CONTRAST CLINICAL [...] suspicious for cystitis. Suggestion of fecal impaction. [facility]-[id number] Performing Organization Address City/[facility]/Zipcode Phone Number [facility] [address] [place] [address] * Lactic acid, I-Stat (07/23/2018 8:16 PM WASTEWATER ENGINEER) Pathologist [facility] Lactic acid, 0.9 0.5 - 2.2 mmol/L [facility] I-Stat [facility] Specimen Plasma specimen Performing Organization Address City/[facility]/Zipcode Phone Number DEPARTMENT [address] [address] PATHOLOGY AND GENOMIC MEDICINE, [address] * Manual differential (07/23/2018 7:35 PM WASTEWATER ENGINEER) Only the most recent of 4 results within the time period is included. Manual PERFORMED [facility] differential [facility] Neutrophils 78.0 (H) 39.0 - 69.0 % [facility] Lymphocytes 19.0 (L) 25.0 - 45.0 % [facility] Monocytes 2.0 0.0 - 10.0 % [facility] Eosinophils 0.0 0.0 - 5.0 % [facility] Basophils 0.0 0.0 - 1.0 % [facility] Metamyelocytes 0 % [facility] Myelocytes 1 % [facility] Promyelocytes 0 % [facility] Platelet slide Carmen adequate [facility] Anisocytosis Moderate [facility] Polychromasia Moderate [facility] Tear drop cells Occasional [facility] Ovalocytes Moderate [facility] Specimen Performing Organization Address City/[facility] Phone Number [facility] [place] [address] PATHOLOGY AND GENOMIC MEDICINE [address] * Amylase level (07/23/2018 7:35 PM WASTEWATER ENGINEER) Only the most recent of 2 results within the time period is included. Pathologist [facility] Amylase 90 14 - 97 U/L [facility] Specimen Plasma specimen Performing Organization Address City/[facility] [place] [address] PATHOLOGY AND GENOMIC MEDICINE[address] * Blood culture, aerobic & anaerobic (06/26/2018 2:50 AM WASTEWATER ENGINEER) Only the most recent of 5 results within the time period is included. Blood culture No growth after 5 days of BOAZ isolate incubation. [facility] Comment: HOSPITAL Specimen Information Specimen Source: Blood Specimen Site: Line, port-a-cath Specimen Blood - Line, port-a-cath Performing Organization Address City/[facility]/Zipcode Phone Number [facility] [place] [address] PATHOLOGY AND GENOMIC MEDICINE [address] * Hepatitis B surface Ab, quantitative (04/07/2018 8:46 AM CDT) Only the most recent of 2 results within the time period is included. Pathologist [facility] Hepatitis B >1000.00 IU/L [facility] surface Ab Comment: The anti-HBs is [...] Cellular and Tissue-Based Products (HCT/P). Performed by [employer], [address] [place], [place] [id number] [email or web address] [place], Blade Hoff MD - Lab. Director Specimen Serum Performing Organization Address City/[facility]/Zipcode Phone Number [facility] [address] [place] [address] * Hepatitis B surface antibody (04/07/2018 7:45 AM CDT) Only the most recent of 2 results within the time period is included. Pathologist [facility] Hepatitis B Reactive (A) Non-reactive [facility] DEPARTMENT surface Ab OF PATHOLOGY AND GENOMIC MEDICINE Specimen Blood Performing Organization Address City/State/Zipcode Phone Number [address] [address] PATHOLOGY AND GENOMIC MEDICINE * Lactic acid level, SEPSIS - Now and repeat 2x every 3 hours (04/01/2018 7:40 AM CDT) Only the most recent of 2 results within the time period is included. Pathologist [facility] Lactic acid 0.7 0.5 - 2.2 mmol/L [facility] DEPARTMENT OF PATHOLOGY AND GENOMIC MEDICINE Specimen Plasma specimen Performing Organization Address [facility] [place] [address] PATHOLOGY AND GENOMIC MEDICINE * Lipase level (04/01/2018 4:42 AM CDT) Lipase 25 13 - 60 U/L [facility] DEPARTMENT PATHOLOGY AND GENOMIC MEDICINE Specimen Plasma specimen Performing Organization Address [facility] [place] [address] PATHOLOGY AND GENOMIC MEDICINE * ECG ED Preliminary Interpretation - NOT AN ORDER (04/01/2018 4:16 AM CDT) Narrative Performed At Doris Jones III, MD 04/01/20182:51 PM ECG ED Preliminary Interpretation - Not an Order Performed by: DORIS JONES III Authorized by: DORIS JONES III ECG reviewed by ED Physician in the absence of a engraver picture: yes Interpretation: Interpretation: abnormal Quality: Tracing quality:Limited [...] MUSE rate Atrial rate 122 [facility] MUSE NM interval 142 [facility] MUSE QRSD interval 80 [...] change was found- Specimen Performing Organization Address [facility] Cent[facility]ode Phone Number [facility] MUSE [address] [place] [address] * Estimated GFR (03/29/2018 5:45 AM CDT) Only the most recent of 11 results within the time period is included. Pathologist [facility] GFR Non Af Amer 6 (A) mL/min/1.73 m2 [facility] DEPARTMENT OF PATHOLOGY AND GENOMIC MEDICINE GFR Af Amer 7 (A) mL/min/1.73 m2 [facility] DEPARTMENT Comment: OF PATHOLOGY Chronic kidney disease: [...] specimen Performing Organization Address City/State/Zipcode Phone Number [facility] [place] [address] [place] [address] PATHOLOGY AND GENOMIC MEDICINE * Immunoglobulin A (03/24/2018 1:10 PM CDT) Pathologist [facility] IgA 248 70 - 400 mg/dL [facility] DEPARTMENT OF PATHOLOGY AND GENOMIC MEDICINE Specimen Plasma specimen Performing Organization Address City/State/Zipcode Phone Number [facility] DEPARTMENT OF [address] [place] [address] PATHOLOGY AND GENOMIC MEDICINE * Transfuse RBC (03/23/2018 5:34 PM CDT) Only the most recent of 2 results within the time period is included. * Copper level, serum (03/23/2018 2:28 PM CDT) Pathologist [facility] Copper 88 80 - 155 ug/dL [facility] Comment: INTERPRETIVE INFORMATION: Copper, Serum or [...] or malabsorption. See Compliance Statement B at [email or web address] Performed by [employer], [address] [place] [id number] [email or web address] [place], Blade Hoff MD - Lab. Director Specimen Blood Performing Organization Address City/State/Zipcode Phone Number [facility] [address] [place] [address] * IR Lumbar Puncture by Radiology (03/23/2018 9:53 AM CDT) Specimen Narrative Performed At EXAMINATION: [facility] CL[facility]: Peripheral Demyelinating Neuropathy [...] fluoroscopic guided lumbar puncture as detailed above. [facility]-[id number] Procedure Note Hm Interface, Radiology Results Incoming [...] fluoroscopic guided lumbar puncture as detailed above. [facility]-[id number] Performing Organization Address City/State/Zipcode Phone Number [facility] [address] [place] [address] * IgG synthesis rate study (03/23/2018 9:45 AM CDT) IgG albumin 0.12 0.00 - 0.23 [facility] DEPARTMENT ratio, CSF OF PATHOLOGY AND GENOMIC MEDICINE IgG index, CSF 0.49 0.01 - 0.63 [facility] DEPARTMENT OF PATHOLOGY AND GENOMIC MEDICINE IgG synthetic 13.91 (H) -9.90 - 3.30 mg/day [facility] DEPARTMENT rate OF PATHOLOGY AND GENOMIC MEDICINE Q-albumin 53.57 (H) 2.00 - 6.00 [facility] DEPARTMENT ratio, CSF OF PATHOLOGY AND GENOMIC MEDICINE IgG, CSF 22.10 (H) 1.00 - 3.00 mg/dL [facility] DEPARTMENT OF PATHOLOGY AND GENOMIC MEDICINE Albumin, CSF 182.13 (H) 10.00 - 30.00 mg/dL [facility] DEPARTMENT OF PATHOLOGY AND GENOMIC MEDICINE IgG 834 700 - 1,600 mg/dL [facility] DEPARTMENT OF PATHOLOGY AND GENOMIC MEDICINE Albumin, S 3,400.0 (L) 3,640.0 - 5,304.0 [facility] DEPARTMENT mg/dL OF PATHOLOGY AND GENOMIC MEDICINE Specimen Serum Performing Organization Address City/[facility] Cent[facility]ode Phone Number [facility] OF [address] [place] [address] PATHOLOGY AND GENOMIC MEDICINE * West Nile virus by PCR, CSF (03/23/2018 9:45 AM CDT) West Nile virus Not-Detected Not-Detected [facility] DEPARTMENT PCR, CSF OF PATHOLOGY AND [employer] MEDICINE West Nile virus See link below for PDF Lab [facility] DEPARTMENT PCR, CSF ReportComment: Case Number: OF PATHOLOGY [id number] AND GENOMIC MEDICINE Specimen Cerebrospinal fluid Performing Organization Address City/[facility] Centercode Phone Number [facility] DEPARTMENT OF [address] [place] [address] PATHOLOGY AND [employer] MEDICINE * West Nile virus antibody panel, CSF (03/23/2018 9:45 AM CDT) Pathologist Theodora West Nile IgG, 0.03 <=1.29 IV [facility] CSF Comment: INTERPRETIVE INFORMATION: West Nile [...] members of the Flaviviridae family, such as [place] encephalitis virus, show extensive cross-reactivity with West Nile virus, serologic testing specific for these species should be considered. The detection of antibodies to West Nile virus in cerebrospinal fluid may indicate central nervous system infection. However, consideration must be given to possible contamination by blood or transfer of serum antibodies across the blood-brain barrier. Test developed and characteristics determined by [employer]. See Compliance Statement B: [employer] [place]/CS West Nile IgM, 0.01 <=0.89 IV [employer] [facility]AT[facility] CSF Comment: INTERPRETIVE INFORMATION: West Nile [...] members of the Flaviviridae family, such as [place] encephalitis virus, show extensive cross-reactivity with West Nile virus, serologic testing specific for these species should be considered. The detection of antibodies to West Nile virus in cerebrospinal fluid may indicate central nervous system infection. However, consideration must be given to possible contamination by blood or transfer of serum antibodies across the blood-brain barrier. Test developed and characteristics determined by [employer]. See Compliance Statement B: [email or web address] Performed by [employer], [address] [place] [address] www.[email or web address] [place], Blade Hoff MD - Lab. Director Specimen Cerebrospinal fluid Performing Organization Address City/State/Zipcode Phone Number [employer] [address] [place] [address] * AFB culture (03/23/2018 9:45 AM CDT) Pathologist [facility] AFB culture No growth after 6 weeks of [facility] DEPARTMENT isolate incubation. OF PATHOLOGY Comment: AND GENOMIC Specimen Information MEDICINE Specimen Source: CSF (Spinal Fluid) Specimen Site: Lumbar puncture Specimen Cerebrospinal fluid - Lumbar puncture Performing Organization Address [facility] Phone Number [facility] DEPARTMENT [address] [address] PATHOLOGY AND GENOMIC MEDICINE * Cryptococcal antigen, screen (03/23/2018 9:45 AM CDT) Pathologist [facility] Cryptococcal Ag Negative - No Cryptococcus [facility] DEPARTMENT antigen detected. OF PATHOLOGY Comment: AND GENOMIC Specimen Information MEDICINE Specimen Source: CSF (Spinal Fluid) Specimen Site: Lumbar puncture Specimen Cerebrospinal fluid - Lumbar puncture Performing Organization Address [facility] [place] [address] PATHOLOGY AND GENOMIC MEDICINE * Oligoclonal banding, CSF (03/23/2018 9:45 AM CDT) Protein, CSF 235 (H) 15 - 45 mg/dL [facility] DEPARTMENT OF PATHOLOGY AND GENOMIC MEDICINE Prealbumin, CSF 1.0 (L) 3.5 - 11.1 % [facility] DEPARTMENT OF PATHOLOGY AND GENOMIC MEDICINE Albumin, CSF 69.8 (H) 40.8 - 66.2 % [facility] DEPARTMENT OF PATHOLOGY AND GENOMIC MEDICINE Alpha 1, CSF 3.2 2.3 - 6.4 % [facility] DEPARTMENT OF PATHOLOGY AND GENOMIC MEDICINE Alpha 2, CSF 6.7 6.1 - 12.6 % [facility] DEPARTMENT OF PATHOLOGY AND GENOMIC MEDICINE Beta, CSF 10.0 (L) 11.7 - 24.1 % [facility] DEPARTMENT OF PATHOLOGY AND GENOMIC MEDICINE Gamma, CSF 9.3 5.6 - 12.2 % [facility] DEPARTMENT OF PATHOLOGY AND GENOMIC MEDICINE CSF extended See Comment [facility] DEPARTMENT interpretation Comment: OF PATHOLOGY An abnormal CSF protein study AND GENOMIC with increased total protein MEDICINE and increased Q-albumin and decreased prealbumin 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 IgG synthesis rate increased probably as an artifact. No oligoclonal bands are seen. CSF See CommentComment: Lita [facility] DEPARTMENT interpretation Gissel BECKFORD; Deborah Juares, PhD; Lon OF PATHOLOGY MD Holland, PhD AND GENOMIC MEDICINE Specimen Cerebrospinal fluid Performing Organization Address [facility] Phone Number [facility] DEPARTMENT OF [address] [place] [address] PATHOLOGY AND GENOMIC MEDICINE * Gram stain (03/23/2018 9:45 AM CDT) Pathologist [facility] Gram stain No WBC's or organisms seen. [facility] DEPARTMENT isolate Comment: OF PATHOLOGY Specimen Information AND GENOMIC Specimen Source: CSF (Spinal MEDICINE Fluid) Specimen Site: Lumbar puncture Specimen Cerebrospinal fluid - Lumbar puncture Performing Organization Address City/[facility] Phone Number [facility] [place] [address] PATHOLOGY AND GENOMIC MEDICINE * CSF culture (03/23/2018 9:45 AM CDT) [facility] CSF culture No growth after 3 days. [facility] DEPARTMENT isolate Comment: OF PATHOLOGY Specimen Information AND GENOMIC Specimen Source: CSF (Spinal MEDICINE Fluid) Specimen Site: Lumbar puncture Specimen Cerebrospinal fluid - Lumbar puncture Performing Organization Address [facility] Phone Number [facility] [place] [address] PATHOLOGY AND GENOMIC MEDICINE * CSF cell count with differential (03/23/2018 9:45 AM CDT) Pathologist [facility] Color, CSF Colorless [facility] DEPARTMENT OF PATHOLOGY AND GENOMIC MEDICINE Appearance, CSF Clear [facility] DEPARTMENT OF PATHOLOGY AND GENOMIC MEDICINE RBC, CSF 19 (H) 0 - 1 /CMM [facility] DEPARTMENT OF PATHOLOGY AND GENOMIC MEDICINE WBC, CSF 7 (H) 0 - 5 /CMM [facility] DEPARTMENT OF PATHOLOGY AND GENOMIC MEDICINE CSF mononuclear Diff to follow [facility] DEPARTMENT cell OF PATHOLOGY AND GENOMIC MEDICINE Neutrophils, 4 % [facility] DEPARTMENT CSF OF PATHOLOGY AND GENOMIC MEDICINE Lymphocytes, 96 % [facility] DEPARTMENT CSF OF PATHOLOGY AND GENOMIC MEDICINE Specimen Cerebrospinal fluid Performing Organization Address City/[facility]/Zipcode Phone Number [facility] [place] [address] PATHOLOGY AND GENOMIC MEDICINE * VDRL, CSF screen (03/23/2018 9:45 AM CDT) [facility] VDRL, CSF Non-reactive Non-reactive [facility] DEPARTMENT screen OF PATHOLOGY AND GENOMIC MEDICINE Specimen Cerebrospinal fluid Performing Organization Address City/[facility]/Zipcode Phone Number [facility] DEPARTMENT [address] [address] PATHOLOGY AND GENOMIC MEDICINE * Glucose level, CSF (03/23/2018 9:45 AM CDT) Glucose, CSF 95 (H) 40 - 70 mg/dL [facility] DEPARTMENT OF PATHOLOGY AND GENOMIC MEDICINE Specimen Cerebrospinal fluid Performing Organization Address City/State/Zipcode Phone Number [facility] DEPARTMENT OF [address] [place] [address] PATHOLOGY AND GENOMIC MEDICINE * Angiotensin converting enzyme, CSF (03/23/2018 9:45 AM CDT) Angiotensin 3.2 (H) 0.0 - 2.5 U/L [facility] converting Comment: enzyme, CSF This test was developed and its performance characteristics determined by [employer]. The U.S. Food and Drug Administration has not approved or cleared this test; however, FDA clearance or approval is not currently required for clinical use. The results are not intended to be used as the sole means for clinical diagnosis or patient management decisions. Performed by [employer], [address] [place] [address] www[employer], Blade Hoff MD - Lab. Director Specimen Cerebrospinal fluid Performing Organization Address [facility] Centercode Phone Number [employer] [facility] [address] [place] [address] * MRI Cervical Spine Wo Contrast (03/23/2018 [...] C6-C7. No significant spinal canal stenosis identified. [facility]-[id number] Procedure Note Hm Interface, Radiology Results Incoming [...] C6-C7. No significant spinal canal stenosis identified. [facility]-[id number] Performing Organization Address [facility]/Zipcode Phone Number [facility] [address] [place] [address] * MRI Brain Wo Contrast (03/23/2018 8:34 [...] are unremarkable. IMPRESSION: No acute intracranial abnormality. [facility]-[id number] Procedure Note Interface, Radiology Results Incoming - [...] are unremarkable. IMPRESSION: No acute intracranial abnormality. [facility]-[id number] Performing Organization Address [facility]/Zipcode Phone Number [facility] [address] [place] [address] * Syphilis treponemal IgG (03/22/2018 5:30 PM CDT) Syphilis Non-reactiveComment: Non-reactive [facility] DEPARTMENT treponemal IgG Non-reactive: No serological OF PATHOLOGY evidence of Syphilis infection AND GENOMIC MEDICINE Specimen Serum Performing Organization Address City/State/Zipcode Phone Number [facility] DEPARTMENT OF [address] [place] [address] PATHOLOGY AND GENOMIC MEDICINE * Rapid HIV 1 & 2 (03/22/2018 5:30 PM CDT) Rapid HIV 1 and Non-Reactive Non-Reactive [facility] DEPARTMENT 2 OF PATHOLOGY AND GENOMIC MEDICINE Specimen Blood Performing Organization Address City/State/Zipcode Phone Number [facility] [place] [address] [place] [address] PATHOLOGY AND GENOMIC MEDICINE * Heavy metals panel 3, blood (03/22/2018 5:30 PM CDT) Pathologist [facility] Arsenic <10.0 0.0 - 13.0 ug/L [facility] Comment: INTERPRETIVE INFORMATION: Arsenic, [...] exposure. Test developed and characteristics determined by [employer]. See Compliance Statement B: [email or web address]CS Lead, blood 3.1 0.0 - 4.9 ug/dL [facility] Comment: INTERPRETIVE INFORMATION: Lead, Blood (Venous) [...] may become , reduce lead exposure. All lfjx61-81.9 ug/dLReduced lead exposure and increased biological monitoring are recommended. All pzxt82-46.9 ug/dLRemoval from lead exposure and prompt medical [...] present. Test developed and characteristics determined by [employer]. See Compliance Statement B: [employer]/CS Mercury, blood <3 0 - 10 ug/L [facility] Comment: INTERPRETIVE INFORMATION: Mercury, Blood Blood [...] ug/L. Test developed and characteristics determined by [employer]. See Compliance Statement B: [employer]/CS Performed by [employer], [address], [place] [id number] www.[employer] [place], Blade Hoff MD - Lab. Director Specimen Blood Narrative Performed At [facility], Serum: whole blood submitted for testing. specimen requires serum or [facility] plasma to be from cells soon after collection. Notified Tita ([facility]) to recollect 03/23/201809:56 [facility] Performing Organization Address City/State/Zipcode Phone Number [facility] [address] [place] [address] * Vitamin B1 level, whole blood (03/22/2018 5:30 PM CDT) [facility] Vitamin B1 90 70 - 180 nmol/L [employer] [employer] [facility] Comment: INTERPRETIVE INFORMATION: Vitamin B1, Whole Blood This assay measures the concentration of thiamine diphosphate (TDP), the primary active form of vitamin B1. Approximately 90 percent of vitamin B1 present in whole blood is TDP. Thiamine and thiamine monophosphate, which comprise the remaining 10 percent, are not measured. Test developed and characteristics determined by [employer]. See Compliance Statement B: [employer]/CS Performed by [employer], [address] [place] [address] www.[employer] [place], Blade Hoff MD - Lab. Director Specimen Plasma specimen Performing Organization Address [facility] Centercode Phone Number [facility] [address] [place] [address] * Partial thromboplastin time, activated (03/22/2018 5:30 PM CDT) PTT 31.0 23.0 - 36.0 sec [facility] DEPARTMENT Comment: OF PATHOLOGY PTT therapeutic range for AND GENOMIC unfractionated heparin is MEDICINE 61.0-112.0 seconds which corresponds to Anti-Xa 0.3-0.7 U/ml. Specimen Blood Performing Organization Address [facility] Centercode Phone Number [facility] [place] [address] PATHOLOGY AND GENOMIC MEDICINE * Prothrombin time with INR (03/22/2018 5:30 PM CDT) Only the most recent of 2 results within the time period is included. Prothrombin 12.9 12.0 - 15.0 sec [facility] DEPARTMENT time OF PATHOLOGY AND GENOMIC MEDICINE INR 1.0 [facility] DEPARTMENT Comment: OF PATHOLOGY The International Normalized AND GENOMIC Ratio (INR) is a therapeutic MEDICINE monitoring tool for patients who are stable on oral anticoagulant therapy. An INR of 2.0-3.0 is suggested for deep vein thrombosis/pulmonary embolism. Specimen Blood Performing Organization Address [facility] [place]erc[place] [address] PATHOLOGY AND GENOMIC MEDICINE * Thyroid stimulating hormone (03/22/2018 5:30 PM CDT) TSH 1.42 0.27 - 4.20 uIU/mL [facility] DEPARTMENT OF PATHOLOGY AND GENOMIC MEDICINE Specimen Blood Performing Organization Address [facility] Centercode Phone Number [facility] [place] [address] PATHOLOGY AND GENOMIC MEDICINE * Magnesium level (03/22/2018 5:30 PM CDT) Only the most recent of 3 results within the time period is included. Pathologist [facility] Magnesium 2.3 1.6 - 2.6 mg/dL [facility] DEPARTMENT OF PATHOLOGY AND GENOMIC MEDICINE Specimen Blood Performing Organization Address City/[facility]/Zipcode Phone Number [facility] [place] [id number] [place] [address] PATHOLOGY AND [facility] MEDICINE * Hemoglobin A1c (03/22/2018 5:30 PM CDT) Only the most recent of 2 results within the time period is included. [facility] Hemoglobin A1C 7.2 (H) 4.0 - 6.0 % [facility] DEPARTMENT Comment: OF PATHOLOGY AND GENOMIC MEDICINE Less than 6% - Goal of therapy for Type II Diabetes Less than 7%-Goal of therapy for Type I Diabetes Less than 8%-Accepta ble control for Type I or Type II Diabetes Greater than 8%-Unacceptabl e control; action indicated. ([id number]) Specimen Blood Performing Organization Address City/[facility]/Zipcode Phone Number [facility] [id number] [place] [address] PATHOLOGY AND [facility] MEDICINE * Vitamin B12 level (03/22/2018 5:30 PM CDT) [facility] Vitamin B12 645 211 - 946 pg/mL [facility] DEPARTMENT Comment: OF PATHOLOGY Significant overlap exists AND GENOMIC between normal and deficiency MEDICINE states. However, most patients with deficiencies will have Serum B12 <200 pg/mL. Specimen Serum Performing Organization Address City/State/Zipcode Phone Number [facility] DEPARTMENT OF [address] [place] [address] PATHOLOGY AND [facility] MEDICINE * Lipid panel (03/22/2018 5:30 PM CDT) Only the most recent of 2 results within the time period is included. Cholesterol 195 0 - 199 mg/dL [facility] DEPARTMENT OF PATHOLOGY AND GENOMIC MEDICINE Triglycerides 91 0 - 149 mg/dL [facility] DEPARTMENT OF PATHOLOGY AND GENOMIC MEDICINE HDL cholesterol 55 40 - 99,999 mg/dL [facility] DEPARTMENT OF PATHOLOGY AND GENOMIC MEDICINE LDL cholesterol 132 (H) 0 - 99 mg/dL [facility] DEPARTMENT OF PATHOLOGY AND GENOMIC MEDICINE Lipid panel See below [facility] DEPARTMENT interpretation Comment: OF PATHOLOGY Total Cholesterol [...] Blood Performing Organization Address City/State/Zipcode Phone Number [facility] [address] [place] [address] PATHOLOGY AND GENOMIC MEDICINE * CT Lumbar [...] or traumatic malalignment of the lumbar spine. [facility]-[id number] Procedure Note Interface, Radiology Results Incoming - [...] or traumatic malalignment of the lumbar spine. [facility]-[id number] Performing Organization Address [facility]/Zipcode Phone Number [address] [address] * Troponin (03/21/2018 9:40 PM CDT) Only the most recent of 3 results within the time period is included. Troponin <0.30 0.00 - 0.30 ng/mL [facility] DEPARTMENT Comment: OF PATHOLOGY 0.11 - 1.49 AND GENOMIC ng/mlMay MEDICINE indicate increased risk of acute coronary syndrome. >=1.5 ng/ml Consistent with acute myocardial infarction. The diagnostic value of a single normal or non-diagnostic result is questionable.Serial samples at 2-6 hour intervals are required to rule out acute myocardial injury. Specimen Plasma specimen Performing Organization Address City/[facility]/Zipcode Phone Number [facility] DEPARTMENT [address] [place] [address] PATHOLOGY AND GENOMIC MEDICINE * Myoglobin (03/21/2018 3:12 PM CDT) Myoglobin 261 (H) 21 - 72 ng/mL [facility] DEPARTMENT OF PATHOLOGY AND GENOMIC MEDICINE Specimen Plasma specimen Performing Organization Address City/[facility]/Zipcode Phone Number [facility] [address] [place] [address] PATHOLOGY AND GENOMIC MEDICINE * Surgical pathology request (02/11/2018 10:26 AM CDT) [facility] DEPARTMENT OF PATHOLOGY AND GENOMIC MEDICINE Surgical See link below for PDF Lab [facility] DEPARTMENT pathology Report OF PATHOLOGY report AND GENOMIC MEDICINE Result status This is Final Report to [facility] DEPARTMENT [id number] OF PATHOLOGY AND GENOMIC MEDICINE Specimen Performing Organization Address City/[facility]/Zipcode Phone Number [facility] [address] [address] [place] [address] PATHOLOGY AND GENOMIC MEDICINE * Ionized calcium (02/10/2018 3:45 AM CDT) Only the most recent of 2 results within the time period is included. pH 7.40 [facility] DEPARTMENT OF PATHOLOGY AND GENOMIC MEDICINE Ionized calcium 1.18 1.11 - 1.32 mmol/L [facility] OF PATHOLOGY AND GENOMIC MEDICINE Specimen Blood Performing Organization Address [facility]/Zipcode Phone Number [facility] [id number] [place] [address]. [address] [place] [address] PATHOLOGY AND GENOMIC MEDICINE * Echocardiogram complete [...] 65%. No pericardial effusion Performing Organization Address [facility] Centerconj Phone Number [facility] [address] [place] [address] * Beta hydroxybutyrate (02/09/2018 2:50 PM CDT) Pathologist [facility] Beta 0.13 0.02 - 0.27 mmol/L [facility] DEPARTMENT hydroxybutyrate OF PATHOLOGY AND GENOMIC MEDICINE Specimen Serum Performing Organization Address [facility] Phone Number [facility] [place] [address] PATHOLOGY AND GENOMIC MEDICINE * hCG qualitative, serum screen (02/09/2018 2:50 PM CDT) Pathologist [facility] hCG NegativeComment: Sensitivity: [facility] DEPARTMENT qualitative, 10 mlUhCG/mL in Serum OF PATHOLOGY serum AND GENOMIC MEDICINE Specimen Blood Performing Organization Address [facility] Phone Number [facility] DEPARTMENT [address] [place] [address] PATHOLOGY AND GENOMIC MEDICINE * Creatine kinase, total (CPK) (02/09/2018 7:15 AM CDT) Creatine kinase 83 35 - 200 U/L [facility] DEPARTMENT OF PATHOLOGY AND GENOMIC MEDICINE Specimen Plasma specimen Performing Organization Address City/State/Zipcode Phone Number [facility] DEPARTMENT [facility] [facility] [address] [place] [address] PATHOLOGY AND GENOMIC MEDICINE after 02/06/2018 Insurance Type Payer Benefit Subscriber ID Effective Phone Address Plan / Dates Group Medicare MEDICARE MEDICARE xxxxxxxxxxx 2017-P [place], PART A AND resent [place] B Medicaid MEDICAID MEDICAID xxxxxxxxx 2018-P resent Advance Directives Patient has advance care planning documents, and code status on file. For more i nformation, please contact: Jaciel Temple [address] [place] [address] Date Inactivated Comments Code Status Date Activated 04/21/2017 7:21 PM Full Code 04/20/2017 5:51 AM Code Status decision reached by: Patient 04/07/2017 7:50 PM Full Code 03/30/2017 10:54 PM Code Status decision reached by: Patient
[2019-02-07] MEDS ORDERED: HYDRALAZINE HCL 20 MG/ML VIAL ONE (22:02)
[2019-02-07] MEDS: HYDRALAZINE HCL 20 MG/ML VIAL IV PRN (22:04)
[2019-02-07] MEDS ORDERED: NITROGLYCERIN 2% OINT 1 GM PKT ONE (22:04)
[2019-02-07] MEDS ORDERED: FENTANYL CITRATE/PF 100MCG/2 ML INJ ONE (22:13)
[2019-02-07] MEDS ORDERED: NITROGLYCERIN 2% OINT 1 GM PKT TOP ONE (22:15)
[2019-02-07] MEDS ORDERED: FENTANYL CITRATE/PF 100MCG/2 ML INJ IV ONE (22:30)
[2019-02-07] MEDS ORDERED: LORAZEPAM INJ 2 MG/ML VIAL ONE (22:45)
[2019-02-07] MEDS ORDERED: LORAZEPAM INJ 2 MG/ML VIAL IV ONE (22:45)
[2019-02-08] VITALS (10 sets, daily range): BP systolic 99–184; BP diastolic 48–130
[2019-02-08] MEDS: ENALAPRILAT IV INJ 1.25 MG/ML VIAL IV PRN (01:03)
[2019-02-08] MEDS: HYDRALAZINE HCL 20 MG/ML VIAL IV PRN (03:51)
[2019-02-08] MEDS: MORPHINE SULFATE INJ 4 MG/ML INJ 1ML IV PRN ×3 (03:51→12:05)
--- NOTE | 2019-02-08 08:00 | NUR ---
Paged Dr.Haddad Menas to notify of HR 121. Waiting for call back
--- NOTE | 2019-02-08 08:55 | NUR ---
called [facility] HD center and spoke to Sierra to notify of new HD patient.
--- NOTE | 2019-02-08 10:04 | NUR ---
Per HD nurse patient to be dialyzed tomorrow per
--- NOTE | 2019-02-08 10:30 | NUR ---
HR 111. NO s/s of acute distress noted
--- NOTE | 2019-02-08 11:05 | NUR ---
Visit made by the Spiritual Care Department Pastoral Visitor, Melba Brar. PV provided pastoral presence, prayer, hospitality, and supportive listening. Pastoral Visitor informed pt/family of the scope of [employer] and availability. MOUSTAPHA ARAGON Recreation Programmer Spiritual Care Department O: [phone] Pager: [phone] ([phone] number calling from)
[2019-02-08] MEDS ORDERED: SODIUM CHLORIDE 0.9% 250ML 250 ML ONE (11:59)
[2019-02-08] MEDS: PROMETHAZINE 25MG/ NS 50ML (IV) IV PRN (12:05)
--- NOTE | 2019-02-08 12:24 | NUR ---
S aware of HR 120s, 111
[2019-02-08] MEDS ORDERED: NON-FORMULARY MEDICATION (Clonidine (Catapres-Tts 1) 1 EACH) TD SCH (12:30)
[2019-02-08] MEDS ORDERED: PROMETHAZINE HCL 25 MG TAB PO PRN (12:30)
[2019-02-08] MEDS ORDERED: ALPRAZOLAM 0.5 MG TAB PO PRN (12:30)
[2019-02-08] MEDS ORDERED: HYDROMORPHONE 20MG/ NS 100ML IV PRN (12:30)
[2019-02-08] MEDS ORDERED: PROMETHAZINE HCL 25 MG SUPP PR PRN (12:30)
[2019-02-08] MEDS ORDERED: DEXTROSE 50% SYRINGE 50 ML IV PRN (12:30)
[2019-02-08] MEDS ORDERED: ALPRAZOLAM 1 MG TAB PO PRN (12:45)
[2019-02-08] MEDS ORDERED: CLONIDINE HCL 0.1 MG/24 HR 1 EA PATCH TOP SCH (12:45)
[2019-02-08] MEDS ORDERED: CLONIDINE HCL 0.2 MG/24 HR 1 EA PATCH TOP SCH (14:00)
[2019-02-08] MEDS: LABETALOL HCL 200 MG TAB PO SCH ×2 (14:40→21:48)
[2019-02-08] MEDS: HYDROMORPHONE 2MG/ML 2 MG/ML ML IV PRN ×3 (14:40→23:25)
[2019-02-08] MEDS ORDERED: METRONIDAZOLE 500 MG TAB PO SCH (15:00)
[2019-02-08 15:09] LABS: ANION GAP 23.2 mmol/L (8-16); CALCIUM 9.7 mg/dL (8.4-10.2); CREATININE, SERUM 7.2 mg/dL (0.57-1.11); POTASSIUM 4.2 mmol/L (3.5-5.1)
--- NOTE | 2019-02-08 15:16 | NUR ---
Notified of lab results. No new orders
--- NOTE | 2019-02-08 15:21 | NUR ---
Nutrition Screen Note RD Recommendation for Physician: -Advance diet as tolerated to renal/ ADA diet -If PO intake is poor, rec 8oz Nepro PRN (425kcal, 19g protein) through PEG tube Plan of Care: RD following, monitoring for tolerance and adequacy Nutrition reason for involvement: Nutrition Risk Trigger MST Primary Diagnose(s): acute Crohns dz, hypertensive emergency, nausea/ vomiting PMH: ESRD on HD, Crohns, PEG tube, DM Ht: 62in Wt: 113.19lb BMI: 20.7kg/m2 IBW: 110lb +/- 10% RD Assessment: (02/08) Chart reviewed. Labs and meds reviewed. 28yo F, who was admitted for abdominal pain with nausea and vomiting for several days. Abd X-ray WNL. Visited pt in the room. Pt had PEG tube placed since July 2018. Pt didnt know why she got the PEG tube. Pt tolerated clear liquid diet without any complains. During my visit, pt was in no distress, playing on her cellphone. Pt reported getting 1 bottle of Nepro through PEG when she has poor appetite. Pt also complained of some sore throat after esophageal dilation a month ago. Pt denied any swallowing difficulty since then. Weight has been stable at 110 115lbs. Rec advance diet as tolerated. Current Diet: clear liquid diet Malnutrition Evaluation (02/08/2019) The patient does not meet criteria for a specified degree of malnutrition at this time. Will re-evaluate at follow-up as appropriate. Diet Education Needs Assessment: Diet education not indicated. Nutrition Care Level: low Signed: Trinidad Price, MS, RD, LD
[2019-02-08] MEDS: INSULIN LISPRO 100 UNIT/1 ML 3ML VIAL SQ SCH ×3 (16:15→21:00)
[2019-02-08] MEDS ORDERED: NON-FORMULARY MEDICATION (Insulin Lispro (Humalog) 10 UNITS) SC SCH (16:30)
[2019-02-08] MEDS ORDERED: INSULIN DETEMIR 35 UNIT SC SCH (17:00)
--- NOTE | 2019-02-08 19:20 | NUR ---
Report given to oncoming nurse of patient's status. Resting in bed. No s/s of acute distress noted.
--- NOTE | 2019-02-08 19:24 | NUR ---
Patient received lying in bed. AAO x 3. Patient had no complaints of pain. Respirations even and non-labored. Peg tube connected to sheridan bag draining greenish fluid. Right EJ patent. Fall precautions implemented. Patient instructed to call for assistance when needed. Call light within reach.
--- NOTE | 2019-02-08 19:49 | Consultation ---
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 Her workup included abdominal x-ray showing nonobstructive bowel gas pattern. No lung consolidation. She was dialyzed yesterday. Her laboratory tests chemistries; are not done. She is currently sitting up in no apparent distress. She was nauseated and threw up this morning. Denies any bellyache or diarrhea at this point. There is no hematemesis or melena reported. She also denies shortness of breath. ALLERGIES: TYLENOL, KETORALAC, METOCLOPRAMIDE, ONDANSETRON, SHELLFISH DERIVED AND TIZANIDINE. CURRENT MEDICATIONS: Please see MAR for full details. She is on Phenergan p.r.n. She is on nitroglycerin topical p.r.n. She is on losartan 100 mg p.o. daily and Flagyl 5 mg daily. She is on insulin, Humalog. She is on enalapril 1.25 IV q. 4 p.r.n. systolic blood pressure. Clonidine TTS topical patch FAMILY HISTORY: Significant for hypertension. PHYSICAL EXAMINATION: GENERAL: Awake, alert, lying supine, in no apparent distress. VITAL SIGNS: Blood pressure 178/109, pulse rate 129, afebrile, respiratory rate 17, oxygen saturation 100%. HEAD AND NECK: Cornea clear. Oral mucosa moist. LUNGS: Occasional rhonchi. No rales. HEART: S1, S2 audible. ABDOMEN: Otherwise soft and nontender. No apparent visceromegaly. EXTREMITIES: Lower extremity examination shows no edema. IMPRESSION AND PLAN: End-stage renal disease, poorly controlled hypertension, underlying Crohn disease, admitted with nausea, vomiting, tachycardic, but relatively asymptomatic from cardiac standpoint. No evidence of fluid overload, underlying end-stage renal disease, history of diabetes. We will obtain stat chemistries. Nurse to call me with the results. Please see orders. MD ALEJANDRO Nelson/CAMMIE /[phone]
[2019-02-08] MEDS: INSULIN GLARGINE 100 UNITS/ML VIAL SQ SCH (21:00)
--- NOTE | 2019-02-08 23:06 | NUR ---
Dr. Hsieh here to see patient. New order received to obtain urine specimen for Urinalysis and Urine Culture and Sensitivity (C&S) whenever patient urinates. Patient stated she urinates once every few days.
[2019-02-09] VITALS (8 sets, daily range): BP systolic 90–140; BP diastolic 50–96
[2019-02-09] MEDS: HYDROMORPHONE 2MG/ML 2 MG/ML ML IV PRN ×4 (03:50→21:23)
--- NOTE | 2019-02-09 03:58 | NUR ---
Hair Baler called stating patient cannot have KUB scheduled for 0[address] without having a test. Dr. Deanna Hsieh paged for orders. Awaiting call back.
--- NOTE | 2019-02-09 05:03 | NUR ---
Peg tube dressing changed. Patient tolerated well.
[2019-02-09 06:07] LABS: ALBUMIN 3.8 g/dL (3.5-5.0); ANION GAP 25.9 mmol/L (8-16); CALCIUM 9.3 mg/dL (8.4-10.2); CREATININE, SERUM 8.52 mg/dL (0.57-1.11); POTASSIUM 3.9 mmol/L (3.5-5.1)
--- NOTE | 2019-02-09 07:13 | NUR ---
Walking rounds done. Shift report given to oncoming nurse.
--- NOTE | 2019-02-09 07:15 | NUR ---
The pt. was received in bed asleep at bedside rounding and is in no apparent distress. The bed rails are in elevated position and alarm engaged.
[2019-02-09] MEDS: INSULIN LISPRO 100 UNIT/1 ML 3ML VIAL SQ SCH ×7 (07:30→21:00)
--- NOTE | 2019-02-09 08:15 | NUR ---
The pt was medicated for c/o pain and is scheduled for dialysis today as well as a kub. The lab requests a test which has been ordered. The dialysis nurse is here for treatment.
[2019-02-09] MEDS: LOSARTAN POTASSIUM 100 MG TAB PO SCH (08:30)
[2019-02-09] MEDS: FAMOTIDINE 20 MG TAB PO SCH (08:31)
[2019-02-09] MEDS: LABETALOL HCL 200 MG TAB PO SCH ×3 (08:31→21:00)
[2019-02-09] MEDS: INSULIN GLARGINE 100 UNITS/ML VIAL SQ SCH ×2 (08:32→21:00)
[2019-02-09] MEDS ORDERED: SODIUM CHLORIDE 0.9% 1000ML 2,000 ML ONE (09:23)
[2019-02-09] MEDS ORDERED: ALBUMIN 25% 12.5GM 0.25 GM/ML BTL IV NR (11:13)
[2019-02-09 11:39] LABS: ALBUMIN/GLOBULIN RATIO 1.3 (0.8-2.0); ANION GAP 28.7 mmol/L (8-16); CALCIUM 9.7 mg/dL (8.4-10.2); CREATININE, SERUM 9.21 mg/dL (0.57-1.11); POTASSIUM 3.7 mmol/L (3.5-5.1)
[2019-02-09] MEDS: METRONIDAZOLE 500 MG TAB PO SCH (15:00)
--- NOTE | 2019-02-09 15:32 | Diagnostic Imaging Report ---
Abdomen, 1 view. History: Nausea and vomiting. Comparison: 02/07/2019. Findings: Air is scattered throughout nondilated small and large bowel. Gastrojejunostomy tube is again noted, curled with the stomach. There are no masses or abnormal calcifications. The osseous structures are intact. IMPRESSION: Non-specific bowel gas pattern. Signed by: Wilbert Melchor on 02/09/2019 3:29 PM
--- NOTE | 2019-02-09 17:40 | NUR ---
An order was received from Dr. Wells to remove the sheridan cath but the pt. has no cath but a drain bag connected to j tube.
--- NOTE | 2019-02-09 19:20 | NUR ---
Patient received lying in bed. AAO x 3. No acute distress noted. Fall precautions maintained. Patient instructed to call for assistance when needed. Call light within reach.
--- NOTE | 2019-02-09 19:45 | NUR ---
Patient's blood sugar recorded as 54. Cranberry juice given. Blood sugar rechecked after 15 minutes and recorded as 74.
[2019-02-09] MEDS: PROMETHAZINE 25MG/ NS 50ML (IV) IV PRN (21:41)
[2019-02-10] VITALS (8 sets, daily range): BP systolic 101–117; BP diastolic 58–92
[2019-02-10] MEDS: HYDROMORPHONE 2MG/ML 2 MG/ML ML IV PRN ×6 (01:25→21:25)
[2019-02-10] MEDS: PROMETHAZINE 25MG/ NS 50ML (IV) IV PRN ×3 (05:38→21:25)
--- NOTE | 2019-02-10 06:52 | NUR ---
Shift report given to oncoming nurse .
[2019-02-10] MEDS: INSULIN LISPRO 100 UNIT/1 ML 3ML VIAL SQ SCH ×7 (07:30→21:30)
[2019-02-10] MEDS: FAMOTIDINE 20 MG TAB PO SCH (09:00)
[2019-02-10] MEDS: INSULIN GLARGINE 100 UNITS/ML VIAL SQ SCH ×2 (09:00→21:30)
[2019-02-10] MEDS: LOSARTAN POTASSIUM 100 MG TAB PO SCH (09:00)
[2019-02-10] MEDS: LABETALOL HCL 200 MG TAB PO SCH ×3 (09:00→21:00)
[2019-02-10] MEDS ORDERED: CLONIDINE HCL 0.1 MG/24 HR 1 EA PATCH TOP SCH (09:00)
--- NOTE | 2019-02-10 15:33 | NUR ---
IMM letter delivered and explained to pt. She verbalized understanding. Signed copy placed in chart. Copy to pt.
[2019-02-10 23:28] LABS: BILIRUBIN,URINE NEGATIVE (NEGATIVE); CLARITY,URINE CLOUDY (CLEAR); KETONES,URINE NEGATIVE (NEGATIVE); LEUKOCYTE ESTERASE ,URINE NEGATIVE (NEGATIVE); NITRITE,URINE NEGATIVE (NEGATIVE); URINE UROBILINOGEN 0.2 mg/dL (0.2 - 1)
[2019-02-10 23:39] LABS: COLOR,URINE STRAW (YELLOW); PROTEIN,URINE DIPSTICK 3+ (NEGATIVE)
[2019-02-10 23:57] LABS: BACTERIA,URINE MANY /HPF; EPITHELIAL CELLS,URINE FEW /LPF; RBC,URINE >50 /HPF (0-5); RENAL EPITHELIAL CELLS,URINE MODERATE; TRANSITIONAL EPI CELLS,URINE FEW; YEAST,URINE FEW
[2019-02-11] VITALS (7 sets, daily range): BP systolic 92–137; BP diastolic 60–91
[2019-02-11] MEDS: HYDROMORPHONE 2MG/ML 2 MG/ML ML IV PRN ×6 (01:30→22:44)
[2019-02-11] MEDS: PROMETHAZINE 25MG/ NS 50ML (IV) IV PRN ×2 (01:30→05:30)
[2019-02-11] MEDS: PIPER-TAZ 3.375 GM 50 ML IV SCH ×2 (02:10→14:36)
[2019-02-11] MEDS: INSULIN LISPRO 100 UNIT/1 ML 3ML VIAL SQ SCH ×7 (07:30→20:50)
[2019-02-11] MEDS: LOSARTAN POTASSIUM 100 MG TAB PO SCH (07:54)
[2019-02-11] MEDS: LABETALOL HCL 200 MG TAB PO SCH ×3 (07:54→20:22)
[2019-02-11] MEDS: INSULIN GLARGINE 100 UNITS/ML VIAL SQ SCH ×2 (07:55→20:50)
[2019-02-11] MEDS: FAMOTIDINE 20 MG TAB PO SCH (08:31)
--- NOTE | 2019-02-11 09:02 | NUR ---
spoke with Isabel dialysis nurse and confirmed patient is on schedule for HD today.
[2019-02-11] MEDS ORDERED: SODIUM CHLORIDE 0.9% 1000ML 2,000 ML ONE (10:44)
[2019-02-11] MEDS: SEVELAMER CARBONATE 800 MG TAB PO SCH ×2 (12:00→16:41)
[2019-02-11] MEDS: METRONIDAZOLE 500 MG TAB PO SCH (14:36)
[2019-02-11 14:51] LABS: BASOPHILS # (AUTO) 0.1 (0.0-0.1); BASOPHILS % 0.7 % (0.0-1.0); EOSINOPHILS # (AUTO) 0.4 (0.0-0.4); HEMATOCRIT 31.6 % (34.2-44.1); HEMOGLOBIN 9.8 g/dL (12.0-16.0); LYMPHOCYTES # (AUTO) 1.4 (1.0-3.2); LYMPHOCYTES % 19.7 % (18.0-39.1); MEAN CORPUSCULAR HEMOGLOBIN 29.8 pg (28-32); MONOCYTES # (AUTO) 0.6 (0.2-0.8); MONOCYTES % 8.5 % (4.4-11.3); NEUTROPHILS # (AUTO) 4.7 (2.1-6.9); NEUTROPHILS % 65.7 % (38.7-80.0); PLATELET COUNT 257 x10e3/uL (140-360); RED BLOOD COUNT 3.29 x10e6/uL (3.6-5.1); RED CELL DISTRIBUTION WIDTH 16.8 % (11.7-14.4)
[2019-02-11 15:15] LABS: ANION GAP 25.2 mmol/L (8-16); CALCIUM 9.2 mg/dL (8.4-10.2); CREATININE, SERUM 7.46 mg/dL (0.57-1.11); POTASSIUM 5.2 mmol/L (3.5-5.1)
--- NOTE | 2019-02-11 15:37 | NUR ---
per dialysis nurse, 3L removed.
--- NOTE | 2019-02-11 16:30 | NUR ---
notified of potassium level, repeat labs in am.
--- NOTE | 2019-02-11 16:31 | Progress Note ---
DATE: 02/11/2019 Internal Medicine Progress Note SUBJECTIVE: The patient is feeling better today. PHYSICAL EXAMINATION: VITAL SIGNS: Blood pressure 137/81, temperature 98.6, heart rate 105 per minute, respiratory rate is 20 per minute, oxygen saturation 98%. HEART: Showed regular rhythm. Normal S1, S2 sound. LUNGS: Clear bilaterally. ABDOMEN: Soft. She has some mild abdominal tenderness. LABORATORY DATA: BMP; sodium 144, potassium 3.7, chloride 88, CO2 of 31, BUN 52, creatinine 9.21, glucose 80, AST 11, ALT 10, total bilirubin 0.5, alkaline phosphatase 107.. FINAL IMPRESSION: 1. Uncontrolled diabetes mellitus type 2 with end-stage renal disease. 2. End-stage renal disease, on dialysis. 3. Hypertension with end-stage renal disease. 4. Diabetic gastroparesis. 5. Cellulitis of the abdomen around the PEG tube site with background disease exacerbation. 6. Hypertensive emergency, which is slowly resolving. PLAN OF TREATMENT: Continue Zosyn. Continue Phenergan IV as needed. Continue hydralazine 10 mg IV q.4 hours as needed for hypertension, Ambien 5 mg at nighttime, enalaprilat 1.25 mg IV q.4 hours as needed. Continue Humalog 10 units before meals, alprazolam 1 mg q.6 hours as needed for anxiety, Pepcid 20 mg daily, promethazine 25 mg q.6 hours as needed, metronidazole 500 mg on Wednesday, , and Wednesday, Dilaudid 2 mg IV q.4 hours as needed for severe pain, Benadryl 25 mg q.6 hours as needed, losartan 100 mg daily, labetalol 200 mg three times a day, D50 IV push as needed for hypoglycemia, clonidine 0.2 mg three times a day. Continue monitoring blood sugar before meals and at bedtime. Continue Lantus 35 units twice a day and sevelamer 800 mg three times a day. MD ELSIE Tyson/CAMMIE /[id number]
--- NOTE | 2019-02-11 19:05 | NUR ---
walking rounds done with oncoming nurse, pt in bed call light within reach.
--- NOTE | 2019-02-11 20:55 | NUR ---
PATIENT IS AOX3 NO SIGNS OF DISTRESS NOTED. VOICED THAT SHE HAS PAIN IN THE ABDOMEN AREA AND IS AWARE THAT MEDICATION IS NOT DUE TO ANOTHER HOUR AND A HALF. BED IS LOCKED AND IN LOWEST POSITION, SIDE RAIL ARE UP, CALL LIGHT WITHIN EASY REACH, WILL CONTINUE TO MONITOR.
[2019-02-12] VITALS (9 sets, daily range): BP systolic 93–131; BP diastolic 56–86
--- NOTE | 2019-02-12 00:30 | NUR ---
DR. GUTHRIE HAS COME TO SEE THE PATIENT. HE HAS ORDERED TO START TUBE FEEDING IN THE MORNING.
[2019-02-12] MEDS: PIPER-TAZ 3.375 GM 50 ML IV SCH ×2 (02:15→13:43)
[2019-02-12] MEDS: HYDROMORPHONE 2MG/ML 2 MG/ML ML IV PRN ×6 (02:44→22:35)
[2019-02-12 06:07] LABS: CALCIUM 9.9 mg/dL (8.4-10.2); CREATININE, SERUM 5.09 mg/dL (0.57-1.11)
[2019-02-12] MEDS: SEVELAMER CARBONATE 800 MG TAB PO SCH ×3 (08:00→16:07)
[2019-02-12] MEDS: LABETALOL HCL 200 MG TAB PO SCH ×3 (08:12→20:48)
[2019-02-12] MEDS: LOSARTAN POTASSIUM 100 MG TAB PO SCH (08:12)
[2019-02-12] MEDS: FAMOTIDINE 20 MG TAB PO SCH (08:39)
[2019-02-12] MEDS: INSULIN LISPRO 100 UNIT/1 ML 3ML VIAL SQ SCH ×7 (08:40→20:49)
[2019-02-12] MEDS: INSULIN GLARGINE 100 UNITS/ML VIAL SQ SCH ×2 (08:40→20:49)
--- NOTE | 2019-02-12 11:34 | NUR ---
cranberry juice given for a blood sugar of 65 reported for noon vitals pt is asymptomatic lunch trays will be passed out in a few minutes pt is refusing nephro bolus at this time
--- NOTE | 2019-02-12 13:49 | Progress Note ---
DATE: 02/12/2019 Internal Medicine Progress Note SUBJECTIVE: The patient is doing well. No significant complaint. PHYSICAL EXAMINATION: VITAL SIGNS: Blood pressure is 105/61, temperature 97.2, heart rate 82 per minute, respiratory rate 18 per minute, and oxygen saturation 96%. HEART: Showed regular rhythm. Normal S1, S2 sound. LUNGS: Clear bilaterally. ABDOMEN: Soft, slightly tenderness on the feeding tube site. LABORATORY DATA: On the BMP; sodium 132, potassium 5.0, chloride 92, CO2 24, BUN 20, creatinine 5.09, glucose 264. On the CBC; white blood count 7.07, hemoglobin 9.8, hematocrit 31.6, platelet count 257,000. AST 11, ALT 10, total bilirubin 0.5, alkaline phosphatase 107. IMPRESSION: 1. Uncontrolled diabetes mellitus type 2 with end-stage renal disease. 2. Cellulitis on the abdomen around the feeding tube. 3. End-stage renal disease, on dialysis. 4. Hypertension with end-stage renal disease. 5. Diabetes gastroparesis. 6. Crohn disease exacerbation. 7. Hypertensive emergency. PLAN OF TREATMENT: 1. Continue following the wound culture, which show growing gram-positive cocci. 2. Continue Zosyn 3.375 g IV twice a day. 3. Promethazine q.4 hours as needed for vomiting. 4. Hydralazine 10 mg IV q.4 hours as needed for hypertension. 5. Ambien 5 mg at bedtime. 6. Enalaprilat 1.25 mg IV q.4 hours as needed for hypertension. 7. Continue Humalog 10 units before meals. 8. Continue alprazolam 1 mg q.6 hours as needed for anxiety. 9. Pepcid 20 mg daily. 10. Continue metronidazole 500 mg IV every Wednesday, , and Wednesday. 11. Continue Dilaudid 2 mg IV q.4 hours as needed. 12. Benadryl 25 mg q.6 hours as needed for itching. 13. Losartan 100 mg daily. 14. D50 IV push as needed for hypoglycemia. 15. Labetalol 200 mg three times a day. 16. Clonidine 0.2 mg three times a day. 17. Continue monitoring blood sugar before meals and at bedtime. 18. Continue Lantus 35 units twice a day. 19. Sevelamer 800 mg three times a day. 20. Diet; renal diabetic diet. As soon as we had a wound culture final report, we can start the antibiotic therapy. Dr. Eddie Hsieh will resume the care tomorrow morning. MD ELSIE Tyson/CAMMIE /[id number]
[2019-02-13] MEDS: PIPER-TAZ 3.375 GM 50 ML IV SCH (02:12)
[2019-02-13] MEDS: HYDROMORPHONE 2MG/ML 2 MG/ML ML IV PRN ×5 (02:29→20:38)
[2019-02-13 04:10] VITALS: BP 129/73
[2019-02-13] MEDS: INSULIN LISPRO 100 UNIT/1 ML 3ML VIAL SQ SCH ×7 (07:30→21:00)
[2019-02-13 07:37] VITALS: BP 161/94
[2019-02-13] MEDS: LOSARTAN POTASSIUM 100 MG TAB PO SCH (07:42)
[2019-02-13] MEDS: FAMOTIDINE 20 MG TAB PO SCH (07:42)
[2019-02-13] MEDS: SEVELAMER CARBONATE 800 MG TAB PO SCH ×3 (07:42→17:00)
[2019-02-13] MEDS: LABETALOL HCL 200 MG TAB PO SCH ×3 (07:42→21:00)
--- NOTE | 2019-02-13 07:45 | NUR ---
The pt's bp is elevated this morning 161/94 and she refuses to take any of her med pass stating 'I don't want them". She said that the nurse on two previous shifts removed her clonidine patch and that is the only thing that controls her b/p. The pt. was advised that I will check into the bp patch situation.
[2019-02-13] MEDS: INSULIN GLARGINE 100 UNITS/ML VIAL SQ SCH ×2 (09:00→21:00)
--- NOTE | 2019-02-13 09:39 | Diagnostic Imaging Report ---
EXAM: CT Abdomen and Pelvis WITHOUT intravenous contrast INDICATION: Concern for abscess COMPARISON: CT abdomen pelvis of 02/13/2018 TECHNIQUE: Abdomen and pelvis were scanned utilizing a multidetector helical scanner from the lung base to the pubic symphysis without administration of IV contrast. Coronal and sagittal reformations were obtained. IV CONTRAST: None ORAL CONTRAST: None COMPLICATIONS: None RADIATION DOSE: Total DLP: 121.9 mGy*cm Dose modulation, iterative reconstruction, and/or weight based adjustment of the mA/kV was utilized to reduce the radiation dose to as low as reasonably achievable. FINDINGS: LINES: Percutaneous gastrostomy tube loops in the distal stomach and terminates in the fundus. LOWER THORAX: Normal. HEPATOBILIARY: No focal hepatic lesions. No biliary ductal dilatation. Status post cholecystectomy. SPLEEN: No splenomegaly. PANCREAS: No focal masses or ductal dilatation. ADRENALS: Not well visualized. KIDNEYS/URETERS: The bilateral [place] kidneys are absent. 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 PERITONEUM / RETROPERITONEUM: No free air or fluid. LYMPH NODES: No lymphadenopathy. VESSELS: Unremarkable. GI TRACT: No distention or wall thickening. BONES AND SOFT TISSUES: No focal fluid collection along the gastrostomy track to suggest abscess. The bones and soft tissues appear unremarkable. IMPRESSION: Per cutaneous gastrostomy tube loops in the stomach and terminates in the fundus. No focal fluid collection along the gastrostomy track to suggest abscess. Status post bilateral nephrectomy. Pelvic transplant kidney partially visualized. Signed by: Dayne Lundy MD on 02/13/2019 9:36 AM
[2019-02-13 09:44] VITALS: BP 161/94
[2019-02-13] MEDS ORDERED: VANCOMYCIN 1GM/NS 250 ML 250 ML IV SCH (11:45)
[2019-02-13 11:50] VITALS: BP 145/77
--- NOTE | 2019-02-13 13:34 | NUR ---
Nutrition Screen Note RD Recommendation for Physician: -Continue 1800 ADA, Renal diet -BG and insulin management per MD -If PO intake is poor, rec 8oz Nepro PRN (425kcal, 19g protein) through PEG tube Plan of Care: RD following, monitoring for tolerance and adequacy Nutrition reason for involvement: Follow up Primary Diagnose(s): acute Crohns dz, hypertensive emergency, nausea/ vomiting PMH: ESRD on HD, Crohns, PEG tube, DM Ht: 62in Wt: 113.19lb BMI: 20.7kg/m2 IBW: 110lb +/- 10% RD Assessment: 02/13: Pt seen for follow up. Diet advanced yesterday. Pt reports good appetite and po intake, noted 75% intake per chart. Pt denies any GI distress or difficulties chewing or swallowing. Pt discussed during am rounds. Labs and meds reviewed, pt with elevated BG trend in the 200s- currently on lantus. Current diet remains appropriate. Will monitor and continue to follow. (02/08) Chart reviewed. Labs and meds reviewed. 28yo F, who was admitted for abdominal pain with nausea and vomiting for several days. Abd X-ray WNL. Visited pt in the room. Pt had PEG tube placed since July 2018. Pt didnt know why she got the PEG tube. Pt tolerated clear liquid diet without any complains. During my visit, pt was in no distress, playing on her cellphone. Pt reported getting 1 bottle of Nepro through PEG when she has poor appetite. Pt also complained of some sore throat after esophageal dilation a month ago. Pt denied any swallowing difficulty since then. Weight has been stable at 110 115lbs. Rec advance diet as tolerated. Current Diet: 1800 ADA, Renal Malnutrition Evaluation (02/08/2019) The patient does not meet criteria for a specified degree of malnutrition at this time. Will re-evaluate at follow-up as appropriate. Diet Education Needs Assessment: Diet education not indicated. Nutrition Care Level: low Signed: Lissette Doan RD, LD, [facility]
--- NOTE | 2019-02-13 13:58 | NUR ---
IMM letter delivered and explained to pt. She verbalized understanding. Signed copy placed in chart. Copy to pt.
[2019-02-13] MEDS: PROMETHAZINE 25MG/ NS 50ML (IV) IV PRN ×2 (14:34→20:19)
--- NOTE | 2019-02-13 14:34 | NUR ---
The train electronic technician called to report pt. rhythm change of s v t at 143-155 sustained and a call was placed to Dr. Clary Hsieh. Dr. Tenorio was consulted.
--- NOTE | 2019-02-13 15:14 | NUR ---
DISCUSSED IN BARRIER ROUNDS PATIENT WITH ESBL IN URINE ON CONTACT ISOLATION. PATIENT WITH POSITIVE G TUBE CULTURE AND BEING SEEN BY ID: DR. HARRY. PATIENT INCISION SITE WITH PURULENT DRAINAGE WELL. PATIENT ON HD AND NON COMPLIANT AT HOME WITH CARE. PATIENT ALSO WITH NO LIFETIME RESERVE DAYS OR INPATIENT DAYS TO BE SENT TO [facility]. PLAN AT THIS TIME TIME IS HOME WITH HOME HEALTH AND POSSIBLE IV ABX TREATMENTS. PENDING DR. HARRY RECOMMENDATION FOR IV ABX TREATMENT ORDER AND PLAN.
[2019-02-13 15:55] VITALS: BP 247/136
--- NOTE | 2019-02-13 16:39 | NUR ---
Dr. Tenorio and Carlos here to evaluate the pt. Med of heart rate will be made iv and a call was placed to Dr. Aneesh Hsieh to report recent findings of increased abd pain and tightness with tenderness too touch. Heart rate was elevated to 140's to 155 and Bp 220/140. The pt. was given iv vasotec and will continue to monitor the pt.
[2019-02-13 16:58] LABS: BASOPHILS % 0.4 % (0.0-1.0); EOSINOPHILS # (AUTO) 0.2 (0.0-0.4); EOSINOPHILS % 3.1 % (0.0-6.0); HEMATOCRIT 36.9 % (34.2-44.1); HEMOGLOBIN 11.5 g/dL (12.0-16.0); LYMPHOCYTES % 12.8 % (18.0-39.1); MEAN CORPUSCULAR HEMOGLOBIN 29.3 pg (28-32); MEAN CORPUSCULAR HGB CONC 31.2 g/dL (31-35); MEAN CORPUSCULAR VOLUME 94.1 fL (81-99); MONOCYTES # (AUTO) 0.5 (0.2-0.8); MONOCYTES % 6.1 % (4.4-11.3); NEUTROPHILS % 77.1 % (38.7-80.0); PLATELET COUNT 234 x10e3/uL (140-360); RED BLOOD COUNT 3.92 x10e6/uL (3.6-5.1); RED CELL DISTRIBUTION WIDTH 15.9 % (11.7-14.4)
[2019-02-13] MEDS ORDERED: BISACODYL 10 MG SUPP PR NR (17:00)
--- NOTE | 2019-02-13 18:38 | NUR ---
The pt. refused to take the dulcolax supp ordered stating "I think I can go on my own". She was advised too call when she has gone as we need to order a abd xray.
[2019-02-13] MEDS: METOPROLOL TARTRATE INJ 1 MG/ML VIAL IV PRN ×2 (18:41→22:56)
--- NOTE | 2019-02-13 18:51 | Consultation ---
DATE OF CONSULTATION: 02/13/2019 HISTORY OF PRESENT ILLNESS: This patient was admitted originally on 02/07/2019. I was asked to see her on 02/05/2019. Admit diagnosis is PEG site infection. Reason for consultation is not responding to current antibiotic. This patient who is a 28-year-old female, who has history of diabetes mellitus, hypertension, end-stage renal disease, history of Crohn disease, type 1 diabetes mellitus, end organ damage, renal failure, currently on hemodialysis, comes in with nausea, vomiting, abdominal pain. The patient had also feeding tube. The patient was admitted and started on Zosyn. She has been seen by Renal. She has been seen by GI. Infectious Disease was asked to see her today because she continued to have drainage from the feeding tube site. The patient is currently alert, oriented, does not seem to be in acute distress. PAST MEDICAL HISTORY: End-stage renal disease, on hemodialysis, Crohn disease, diabetes mellitus. PAST SURGICAL HISTORY: Feeding tube, IV access for dialysis. ALLERGIES: NKA. SOCIAL HISTORY: There is no smoking, drug abuse, or alcohol abuse currently. FAMILY HISTORY: Hypertension and diabetes. REVIEW OF SYSTEMS: GENERAL: She is not feeling well. HEENT: There is no headache, visual changes, hearing changes. GI: There is no nausea, no vomiting, no diarrhea. CARDIAC: There is no arrhythmia. NEURO: No seizure activity. SKIN: There are no other rashes. MEDICATIONS: She is currently on Dilaudid, insulin, Zosyn, metronidazole, Vasotec, Pepcid, Xanax. Her wound cultures are showing gram-positive cocci. PHYSICAL EXAMINATION: GENERAL: She is currently alert, oriented, does not seem to be in acute distress. There is no fever since admission. HEENT: Normocephalic, not appear icteric. NECK: No JVD. No lymphadenopathy. No thyromegaly. CHEST: Clear bilateral. HEART: S1, S2. No S3, S4, or murmur. ABDOMEN: Soft. There is some erythema and edema around gastrostomy tube, otherwise unremarkable. CAT scan showed percutaneous gastrostomy tube in the stomach. No focal fluid collection. IMPRESSION: 1. Percutaneous endoscopic gastrostomy tube infection. Discontinue Zosyn. Continue Flagyl and vancomycin. Her question can we discontinue the feeding tube. We will discuss with Internal Medicine and discussed with GI. 2. End-stage renal disease. 3. Anemia. 4. Crohn disease. 5. Anemia of chronic disease. We will follow. MD GAVINO Basilio/MODL /[id number]
--- NOTE | 2019-02-13 19:15 | NUR ---
Patient received sitting up in bed. AAO x 3. Patient had complaints of pain to abdomen and lower back (3/10). Respirations even and non-labored. Drainage bag attached to PEG tube draining greenish liquid. Patient asked to inform nurse when she has a bowel movement as a KUB will be done afterwards. Patient verbalized understanding. Patient adamantly refused to have the second side rail up. Bed locked and in lowest position. Right side rail up. Patient instructed to call for assistance when needed. Call light within reach.
[2019-02-13 20:00] VITALS: BP 218/141
--- NOTE | 2019-02-13 20:26 | Consultation ---
DATE OF CONSULTATION: 02/13/2019 REASON FOR CONSULTATION: SVT, tachycardia. CHIEF COMPLAINT: Abdominal pain, nausea, vomiting. HISTORY OF PRESENT ILLNESS: This is a 28-year-old female with history of end- stage renal disease, on HD therapy x2 years, diabetes, hypertension. The patient presents to [facility] ER with complaints of abdominal pain and nausea with vomiting for [address] of the abdomen obtained with no acute abnormalities. However, the patient has been off her medications secondary to her excruciating abdominal pain. It was noted that patient was having heart rates in the 140s to 150s. Therefore, cardiology was consulted for possible SVT. Tele was reviewed at length. Heart rates were noticed to be progressively become higher and higher, in fact at sinus tach. The patient is seen in room with the nurse at bedside. The patient reports abdominal pain, nausea, vomiting for about 7 days and reports that she visits the ER frequently because of her frequent nausea, vomiting, and abdominal pain. Has a history of Crohn disease. Also has a history of PEG placement secondary to dysphagia and abdominal pain. Also, the patient was noted with some purulent type drainage from her PEG site. Micro was noted with drainage with gram-positive cocci in pairs and also gram-positive rods. The patient denies any chest pain, shortness of breath, any orthopnea, any PND. PAST MEDICAL HISTORY: End-stage renal disease on HD therapy, diabetes, Crohn disease, repeated ER and hospitalizations because of nausea, vomiting, abdominal pain secondary to recurrence. PAST SURGICAL HISTORY: Left AV fistula, also PEG. FAMILY HISTORY: Mother secondary to complication of leukemia. Father of unknown cause. One sister alive with breast cancer. One brother secondary to liver cancer. SOCIAL HISTORY: She is single. She denies any alcohol use, tobacco use, any drug use. ALLERGIES: TYLENOL, TORADOL, REGLAN, AND SHELLFISH. HOME MEDICATIONS: Include: 1. Xanax 1 mg p.o. every 6 hours as needed. 2. Clonidine patch one weekly. 3. Pepcid 20 mg daily. 4. Levemir 35 units b.i.d. 5. Humalog 10 units subcu at bedtime. 6. Losartan 100 mg daily. 7. Phenergan 25 mg p.o. every 6 hours p.r.n. REVIEW OF SYSTEMS: GENERAL: Positive for fatigue, weakness. Denies any fevers, chills, or night sweats. SKIN: No rashes or bruises. HEENT: Positive for nausea and vomiting. Denies any vision changes, blurred vision, double vision, epistaxis, sore throat, swollen neck. CARDIAC: Denies any chest pains, any palpitations. Positive for dyspnea on exertion. RESPIRATORY: Denies any shortness of breath and wheezing, coughing, or hemoptysis. GI: Reports positive nausea, vomiting, abdominal pain for the past 7 days. Positive for PEG tube. Positive for generalized abdominal pain. VASCULAR: Denies any lower extremity edema or claudication. MUSCULOSKELETAL: Reports of generalized joint pains. NEUROLOGIC: Denies any tingling, tremors, weakness, paralysis, blackouts, or seizures. HEMATOLOGY: Denies any anemia, any bruising. ENDOCRINE: Denies any heat or cold intolerance, any polyuria, polydipsia, or polyphagia. PHYSICAL EXAMINATION: VITAL SIGNS: Currently temperature 99.0, pulse 135, respiratory rate 20, blood pressure 145/77, and pulse ox 99 on room air. GENERAL: Appears stated age and currently complaining of abdominal pain. SKIN: No rashes or bruises noted. HEENT: Normocephalic. Pupils equal, round, and reactive. Extraocular movements intact. NECK: Trachea midline. No thyromegaly noted. No JVD. Oral mucosa is pink. HEART: Tachycardic. No murmurs or clicks noted. PMI in both 4th and 5th intercostal space. LUNGS: Bilateral breath sounds clear to auscultation. ABDOMEN: Tenderness throughout. PEG tube noted with some tannish drainage around the PEG site. MUSCULOSKELETAL: Generalized weakness. Left AV fistula positive thrill and bruit. VASCULAR: +2 bilateral radial pulses, +1 DP and PT pulses bilaterally. NEUROLOGIC: Cranial nerves II through XII seem intact. LABORATORY DATA: White count 7, hemoglobin 9.8, hemoglobin 31, platelets 257. Chemistry; sodium 132, potassium 5, chloride 92, bicarb 24, BUN 20, creatinine 5. EKG showing sinus tach, heart rate of 142. CT of abdomen showing PEG tube with no fluid collection. KUB, nonspecific bowel gas pattern. ASSESSMENT: 1. Abdominal pain with nausea and vomiting. 2. History of Crohn disease with frequent emergency room and hospitalizations. 3. Hypertension. 4. End-stage renal disease, on hemodialysis therapy. 5. Status post percutaneous endoscopic gastrostomy tube placement with some drainage from site. PLAN: 1. The patient presents with a week-long nausea, vomiting, abdominal pain. The patient with history of multiple ER visits and hospitalizations secondary to Crohn complications. GI has been consulted. 2. The patient was noted to be tachycardic, questionable SVT. Tele was reviewed at length and the patient appears to be in sinus tach. Also, the patient was noted not to be taking her labetalol, which can also explain why her heart rate is trending upwards. We will put the patient on metoprolol IV. 3. We will go ahead and get an echo to evaluate heart function and structure. 4. We will also check a TSH level. 5. We will defer volume management and all management in light as per Renal service and hypertension therapy. Thank you very much for this consult. We will continue to visit the patient and adjust cardiac therapy as clinical course dictates. Seen and examined Agree with note Dictated by Carlos Smalls NP Rachel Tenorio MD DC/CAMMIE /[id number]
--- NOTE | 2019-02-13 20:29 | NUR ---
Patient vomited dark-brownish liquid in emesis bag. Phenergan 25 mg (IV) administered. Will continue to monitor.
[2019-02-13] MEDS: ENALAPRILAT IV INJ 1.25 MG/ML VIAL IV PRN (21:45)
--- NOTE | 2019-02-13 21:52 | NUR ---
Patient has not had a bowel movement yet . Patient informed nurse she does not want a rectal suppository for constipation.
--- NOTE | 2019-02-13 22:00 | NUR ---
Patient refused Labetalol 200 mg scheduled for 2100 due to nausea and vomiting.
[2019-02-14] VITALS (9 sets, daily range): BP systolic 112–206; BP diastolic 65–134
[2019-02-14] MEDS: HYDROMORPHONE 2MG/ML 2 MG/ML ML IV PRN ×5 (00:39→20:04)
[2019-02-14] MEDS: PROMETHAZINE 25MG/ NS 50ML (IV) IV PRN ×4 (00:40→20:04)
--- NOTE | 2019-02-14 01:05 | NUR ---
Dr. Deanna Hsieh here to see patient. New order received to cancel KUB.
[2019-02-14] MEDS: HYDRALAZINE HCL 20 MG/ML VIAL IV PRN (01:11)
--- NOTE | 2019-02-14 03:12 | NUR ---
Dr. Pearl Hsieh notified of patient's elevated blood pressure (182/108) and a HR (136) despite administration of Hydralazine 10mg IV, Enalapril 1.25 mg IV and Lopressor INJ 5 Mg. New order received for Clonidine 0.1 mg patch Q7D.
[2019-02-14] MEDS ORDERED: CLONIDINE HCL 0.1 MG/24 HR 1 EA PATCH TOP SCH (03:15)
--- NOTE | 2019-02-14 04:01 | NUR ---
Peg tube dressing changed. Patient tolerated well.
--- NOTE | 2019-02-14 05:10 | NUR ---
Patient's IV infiltrated in right EJ New IV inserted in right hand 22G. Patient tolerated well.
--- NOTE | 2019-02-14 07:09 | NUR ---
Walking rounds done. Shift report given to oncoming nurse.
[2019-02-14] MEDS: INSULIN LISPRO 100 UNIT/1 ML 3ML VIAL SQ SCH ×7 (07:30→21:00)
[2019-02-14] MEDS: SEVELAMER CARBONATE 800 MG TAB PO SCH ×3 (08:00→16:38)
[2019-02-14] MEDS: FAMOTIDINE 20 MG TAB PO SCH (09:00)
[2019-02-14] MEDS: LABETALOL HCL 200 MG TAB PO SCH ×3 (09:00→21:00)
[2019-02-14] MEDS: INSULIN GLARGINE 100 UNITS/ML VIAL SQ SCH ×2 (09:00→21:00)
[2019-02-14] MEDS: LOSARTAN POTASSIUM 100 MG TAB PO SCH (09:00)
--- NOTE | 2019-02-14 09:01 | NUR ---
Morning med pass held du to dialysis dialysis day and the pt's blood glucose was low (92) so no insulin was given.
[2019-02-14] MEDS ORDERED: SODIUM CHLORIDE 0.9% 1000ML 1,000 ML ONE (09:53)
[2019-02-14 10:13] LABS: CALCIUM 9.7 mg/dL (8.4-10.2); CREATININE, SERUM 9.72 mg/dL (0.57-1.11)
[2019-02-14] MEDS: METRONIDAZOLE 500 MG TAB PO SCH (15:00)
--- NOTE | 2019-02-14 18:21 | NUR ---
I spoke with Dr. Pearl Hsieh about the pt's refusal to take her meds and about dilaudid injections and no verbal orders received.
--- NOTE | 2019-02-14 19:20 | NUR ---
Patient received sitting up in bed. AAO x 4. No acute distress noted. Greenish liquid draining from drainage bag connected to PEG tube. Patient instructed to call for assistance when needed. Call light within reach.
[2019-02-14] MEDS ORDERED: SODIUM CHLORIDE 0.9% 250ML 250 ML ONE (20:10)
[2019-02-15] VITALS (7 sets, daily range): BP systolic 92–185; BP diastolic 46–118
--- NOTE | 2019-02-15 03:02 | NUR ---
Dr. Deanna Hsieh here to see patient. New order received for placement of patient on "NPO" status for EGD procedure.
--- NOTE | 2019-02-15 03:25 | NUR ---
Patient informed of diagnostic procedure----EGD and instructed about NPO status . Patient verbalized understanding. Patient voluntarily signed "Disclosure and Consent" form.
[2019-02-15] MEDS: HYDROMORPHONE 2MG/ML 2 MG/ML ML IV PRN ×3 (04:15→12:41)
[2019-02-15] MEDS: PROMETHAZINE 25MG/ NS 50ML (IV) IV PRN ×4 (04:16→12:55)
[2019-02-15] MEDS: INSULIN LISPRO 100 UNIT/1 ML 3ML VIAL SQ SCH ×7 (07:30→20:00)
[2019-02-15] MEDS: SEVELAMER CARBONATE 800 MG TAB PO SCH ×3 (08:00→16:57)
[2019-02-15] MEDS: LOSARTAN POTASSIUM 100 MG TAB PO SCH (08:26)
[2019-02-15] MEDS: LABETALOL HCL 200 MG TAB PO SCH ×3 (08:26→20:00)
[2019-02-15] MEDS: FAMOTIDINE 20 MG TAB PO SCH (08:26)
[2019-02-15] MEDS: INSULIN GLARGINE 100 UNITS/ML VIAL SQ SCH ×2 (08:26→20:01)
[2019-02-15] MEDS: METOPROLOL TARTRATE INJ 1 MG/ML VIAL IV PRN (11:57)
--- NOTE | 2019-02-15 16:32 | NUR ---
per , patient may d/c home. paged to obtain d/c orders per his instructions.
--- NOTE | 2019-02-15 16:59 | NUR ---
IMM letter delivered and reminded pt of Medicare Rights. Pt verbalized understanding. Pt has immobilizer to wrist, pt opted to initial IMM. Signed copy placed in chart. Copy to pt.
--- NOTE | 2019-02-15 17:20 | NUR ---
spoke to Erika and received new orders to d/c home, no RX provided and patient to resume home medications.
[2019-02-15] MEDS ORDERED: PROPOFOL IV EMULSION 10 MG/ML 20 ML VIAL ONE (17:22)
[2019-02-15] MEDS ORDERED: MIDAZOLAM HCL 2 MG/2 ML VIAL ONE (18:49)
[2019-02-15] MEDS ORDERED: FENTANYL CITRATE/PF 100MCG/2 ML INJ ONE (18:49)
--- NOTE | 2019-02-15 19:10 | NUR ---
REPORT RECEIVED FROM OFFGOING NURSE,WALKING ROUNDS MADE.RECEIVED PT RESTING IN BED WITH NO S/S OF DISTRESS.RESPIRATIONS EVEN/NON LABORED.PT HAS A DISCHARGE ORDER.PT AWARE OF DC HOME,PT STATED THAT HER BROTHER IS GOING TO PICK HER UP,AND THAT HER BROTHER IS AT WORK NOW TILL MIDNIGHT.BED IN LOWEST/LOCKED POSITION.CALL LIGHT WITHIN EASY REACH. Addendum: 02/15/19 at 2222 by Nubia Dobbs RN COMMUNICATIONS ASSISTANT CARO FOOTE AWARE THAT PT IS WAITING FOR HER BROTHER TO COME PICK HER UP,AND THAT HER BROTHER WONT BE ABLE TO COME UNTIL AFTER MIDNIGHT.
--- NOTE | 2019-02-15 20:29 | Operative Report ---
DATE OF PROCEDURE: 02/15/2019 SURGEON: Juan J Hsieh MD PROCEDURE: EGD with J-tube placement in duodenum. INDICATION FOR PROCEDURE: Dislodged J-tube, nausea and vomiting. MEDICATIONS: The patient was done under MAC, please see anesthesiologist's note. PROCEDURE IN DETAIL: With the patient in left lateral decubitus position, flexible fiberoptic Olympus gastroscope was introduced into the esophagus under direct visualization without any difficulty. It was then advanced with ease into the stomach and the J-tube was noted to be coiled in the stomach. The tip was then grabbed with a hemoclip and advanced into the duodenum. The scope was subsequently withdrawn. The patient tolerated the procedure well. IMPRESSION: 1. Distal esophagitis. 2. Gastritis. PLAN: J-tube grabbed with a hemoclip and advanced into the duodenum. The patient tolerated the procedure well. We will attempt to resume tube feedings. Juan J Hsieh MD [facility] [place] /[id number] cc: Eddie Hsieh MD
--- NOTE | 2019-02-15 23:00 | NUR ---
NOTED PT HAS A DRAINAGE BAG CONNECTED TO J TUBE,SPOKE WITH Aneesh GUTHRIE AND ASKED IF PT NEEDS TO DC HOME WITH THE DRAIN ATTACHED TO THE TUBE,DR GUTHRIE ORDERED THAT THE DRAIN CAN BE DISCONTINUED PRIOR TO DC HOME.EXPLAINED TO PT THAT DR Aneesh GUTHRIE ORDERED TO DC THE DRAINAGE BAG TO THE J TUBE,PT REFUSED THE DRAIN TO BE DISCONTINUED,NOTIFIED DR Aneesh GUTHRIE THAT THE PT IS REFUSING FOR THE DRAIN TO BE DISCONTINUED.NO NEW ORDERS RECEIVED.
--- NOTE | 2019-04-02 05:17 | Discharge Summary ---
CHIEF COMPLAINT: Upper abdominal pain. FINAL DIAGNOSES: End-stage renal disease, diabetes type 1, questionable infected G-tube stoma, diabetic gastroparesis. HOSPITAL COURSE: A 28-year-old female, known historian of type 1 diabetes, gastroparesis, Crohn disease, end-stage renal disease, brought to the ER with 1-day history of abdominal pain associated with nausea and diarrhea. No fever or chills. Unable to keep any food down. She does have an on-board AV shunt for her dialysis processes. In the emergency room, she was demonstrating moderate epigastric bilateral upper quadrant tenderness. Data was reviewed. Admission was made regarding upper abdominal pain, nausea, vomiting, end-stage renal disease, dialysis dependent, gastroparesis, diabetes type 1. With admission, she will undergo analgesic addressed, monitoring of blood sugars, obtain a GI follow as well as a Nephrology follow. [place], Dr. Wells, Nephrology. With review of the patient and review of data, impression was made of end-stage renal disease, poorly controlled hypertension, underlying Crohn disease. No evidence of fluid overload. Underlying end-stage renal disease, history of diabetes. Infectious disease consult with Dr. Lozoya. Not responding well to current antibiotic of choice. With his review, his impression was PEG tube infection, stoma site. Recommend discontinuing the Zosyn. Continue Flagyl and vancomycin. End-stage renal disease, anemia, Crohn disease, anemia of chronic disease. Regarding issues of SVTs and tachycardia on her rhythm strip, she was being reviewed by Dr. Tenorio and following his evaluation, his assessment was abdominal pain with nausea and vomiting, history of Crohn disease with frequent emergency room hospitalizations, hypertension, end-stage renal disease, dialysis dependent, status post PEG placement with some drainage from the site. The patient is noted to be tachycardic, questionable SVT. After his review, he feels that the patient appears to be in sinus tach. The patient noted not to be taking labetalol, which can also explain why her heart rate is trending upwards. Recommend putting the patient on metoprolol IV. Operative report; EGD with J-tube placement in the duodenum. Indications for the procedure were a dislodged J-tube, nausea, and vomiting. The procedure was carried out. The impression was distal esophagitis and gastritis. He states that the J-tube was grabbed with a hemoclip and advanced into the duodenum. The patient tolerated the procedure well. We will attempt to resume tube feedings. The patient was also being seen with admission once on the floor by GI regarding her history of Crohn disease with some hematochezia, mild odynophagia, and following Dr. Juan J Hsieh's review, his impression was upper abdominal pain, nausea, and vomiting, which appears to be somewhat better. Continue the G-tube feeding. She was being cared for on the Med-Surg floor, currently on a clear liquid diet, still complaining of upper abdominal pain, but was resting comfortably. She was on medications for pain. Also continued on her other routine daily medications. Given IV antibiotics. She is being set up to continue her 3 days a week dialysis program with Dr. Wells. Her kidney functions were showing some elevation. She was starting to feel better overall, was having no new complaints, was taken off the clonidine patch, now receiving a GI soft diet. Continued to demonstrate that she was tolerating some p.o. nutrition. Medications were further adjusted as needed. Note that she was having some drainage around the stoma site, this was cultured, was started on Zosyn, waiting for the culture report to return. Her dialysis procedures will continue. She was showing that she was able to demonstrate some p.o. diet. Discussions are being made to restart her G-tube feeding. CT scans of the abdomen will be performed for evaluation of possible abscess and we were concerned that the Zosyn was not the dedicated medication of choice, Dr. Lozoya recommending Zosyn be stopped and add vancomycin. She reached her planned recovery. Arrangements are being made for discharge. She was able to be released on 02/16/2019, in stable, but guarded condition. The patient is able to be discharged home. IMAGING: Abdomen x-ray shows nonobstructive bowel gas pattern. No lung consolidation. Followup abdomen x-ray 2 days later, comparison with initial study reveals a nonspecific bowel gas pattern. CT of the abdomen for abscess evaluation shows percutaneous gastrostomy tube loops in the stomach and terminates in the fundus. No focal fluid collection along the gastrostomy tract to suggest abscess. Status post bilateral nephrectomy. Pelvic transplant kidney partially visualized. Cultures drainage from the PEG stoma shows Staph coccus species coagulase-negative. Urine cultures negative. LABORATORY STUDIES: Shows a CBC revealed a normal white count, initial H and H were 9.8 and 31.6. Followup CBC continued normal white count, H and H improved to 11.5 and 36.9. Hepatitis B surface antibody quantitative was greater than 1000. Urinalysis shows a cloudy clarity, 3+ protein, 3+ glucose, 3+ occult blood, greater than 50 rbc's by high-power field, 6-10 wbc's by high-power field, many bacteria, few yeast. Chemistries shows initial sugar 140. Initial electrolytes stable. Kidney functions; BUN 47 and creatinine 7.20. Followup blood sugars were watched. Followup kidney functions were watched. Blood sugars were as high as 291. Final blood sugar was 138. Final kidney functions; BUN 55 and creatinine 9.72. As mentioned, she stabilized and she was able to be discharged home. She will continue with her PEG tube. She still has her on-board AV shunt. She will continue on her 3-day a week schedule with Dr. Wells. She will be following up with me in my office within the next 2 to 3 weeks for review. She will be contacting my office if she has any questions or concerns or possible recurrence of similar symptoms. CURRENT MEDICATIONS: She will continue on Xanax 1 mg p.o. q.6, Catapres TTS patch one patch weekly, Pepcid 20 mg p.o. daily, Levemir 35 units subcu b.i.d., lispro 10 units subcu before meals t.i.d., losartan potassium 100 mg p.o. daily, Flagyl 500 mg p.o. she will be taking one tablet daily for 6 days, Phenergan suppository 25 mg p.r.n. q.6 hours for nausea, promethazine 25 mg p.o. q.6 hours p.r.n. for nausea. Dictated by JJ Womack Eddie Hsieh MD [facility] /[id number]
== END 2019-02-16 00:11 | disposition home health service (06) | DRG 393 ==
LOC: FSED 19:08 → ERHOLD 21:40 → MED/SURG2 02-08 00:07
PROC: 05HP33Z Insertion of Infusion Device into Right External Jugular Vein, Percutaneous Approach (ICD-10-PCS; 2019-02-07)
PROC: 5A1D70Z Performance of Urinary Filtration, Intermittent, Less than 6 Hours Per Day (ICD-10-PCS; 2019-02-11)
PROC: 0DHA3UZ Insertion of Feeding Device into Jejunum, Percutaneous Approach (ICD-10-PCS; principal; 2019-02-15 15:28)
DX: K94.22 Gastrostomy infection (principal); N18.6 End stage renal disease; K50.919 Crohn's disease, unspecified, with unspecified complications; I12.0 Hypertensive chronic kidney disease with stage 5 chronic kidney disease or end stage renal disease; L03.311 Cellulitis of abdominal wall; I16.1 Hypertensive emergency; K94.13 Enterostomy malfunction; E10.43 Type 1 diabetes mellitus with diabetic autonomic (poly)neuropathy; E10.40 Type 1 diabetes mellitus with diabetic neuropathy, unspecified; E10.22 Type 1 diabetes mellitus with diabetic chronic kidney disease; K31.84 Gastroparesis; E10.65 Type 1 diabetes mellitus with hyperglycemia; D63.8 Anemia in other chronic diseases classified elsewhere; R13.10 Dysphagia, unspecified; K20.9 Esophagitis, unspecified; K29.70 Gastritis, unspecified, without bleeding; R00.0 Tachycardia, unspecified; R53.81 Other malaise; Y83.3 Surgical operation with formation of external stoma as the cause of abnormal reaction of the patient, or of later complication, without mention of misadventure at the time of the procedure; Z79.4 Long term (current) use of insulin; Z87.11 Personal history of peptic ulcer disease; Z88.8 Allergy status to other drugs, medicaments and biological substances; Z88.6 Allergy status to analgesic agent; Z91.013 Allergy to seafood
CPT/HCPCS: 36415; 43235; 74018; 74022; 74150; 80048; 80053; 81001; 82948; 84100; 84443; 84702; 85025; 86704; 86706; 86707; 87070; 87071; 87086; 87205; 87340; 87350; 90962; 93005; 93306; 99284; J0360; J1200; J1815; J2060; J2250; J2270; J2543; J2550; J3010; J3370; J7030; J7050

== ENCOUNTER 2024-09-29 20:46 | Emergency (ER) | payer MEDICARE ==
[~2024-09-29] VITALS: Ht 157.5 cm; Wt 56.7 kg
[2024-09-29 21:00] VITALS: PULSE 103; RESP 19; TEMP 98.7
[2024-09-29] MEDS: MAGNESIUM/ALUMINUM/SIMETHICONE 30 ML UDC PO STA (21:28)
[2024-09-29] MEDS: LIDOCAINE VISC 2% SOLN 15 ML UDC PO STA (21:28)
[2024-09-29] MEDS: BELLADONNA ALK/PHENOBARBITAL 5 ML UDC PO ONE (21:29)
[2024-09-29 21:33] LABS: BASOPHILS % 0.9 % (0.0-1.0); EOSINOPHILS # (AUTO) 0.7 (0.0-0.4); HEMATOCRIT 33.1 % (34.2-44.1); HEMOGLOBIN 9.9 g/dL (12.0-16.0); LYMPHOCYTES # (AUTO) 0.8 (1.0-3.2); MEAN CORPUSCULAR HEMOGLOBIN 26.1 pg (28-32); MEAN CORPUSCULAR HGB CONC 29.9 g/dL (31-35); MEAN CORPUSCULAR VOLUME 87.1 fL (81-99); MONOCYTES # (AUTO) 0.4 (0.2-0.8); MONOCYTES % 7.4 % (4.4-11.3); NEUTROPHILS # (AUTO) 2.9 (2.1-6.9); NEUTROPHILS % 61.5 % (38.7-80.0); PLATELET COUNT 182 x10e3/uL (140-360); RED CELL DISTRIBUTION WIDTH 20.9 % (11.7-14.4)
[2024-09-29 21:48] LABS: ALBUMIN 3.4 g/dL (3.5-5.0); ALBUMIN/GLOBULIN RATIO 0.8 (0.8-2.0); ANION GAP 21.8 mmol/L (8-16); BILIRUBIN,TOTAL 0.6 mg/dL (0.2-1.2); CALCIUM 8.9 mg/dL (8.4-10.2); CREATININE, SERUM 3.13 mg/dL (0.57-1.11); POTASSIUM 3.8 mmol/L (3.5-5.1); TOTAL PROTEIN 7.7 g/dL (6.5-8.1)
[2024-09-29 22:12] LABS: TROPONIN I 0.06 ng/mL (0.0-0.40)
[2024-09-29] MEDS: DIPHENHYDRAMINE HCL INJ 50 MG/ML VIAL IV STA (22:17)
[2024-09-29 22:40] VITALS: BP 163/98; PULSE 105; RESP 19; O2SAT 98
[2024-09-30 04:23] LABS: HYPOCHROMASIA MODERATE
[2024-09-30 04:24] LABS: ANISOCYTOSIS MODERATE; ELLIPTOCYTE, RBC SLIGHT; MICROCYTOSIS SLIGHT; OVALOCYTES MODERATE; POIKILOCYTOSIS MODERATE
[2024-09-30 04:25] LABS: RBC MORPHOLOGY COMMENT ABNORMAL; STOMATOCYTES SLIGHT; TEAR DROP CELLS FEW
[2024-09-30 04:26] LABS: PLATELET ESTIMATE ADEQUATE; PLATELET MORPHOLOGY COMMENT NORMAL
== END 2024-09-29 22:35 | disposition home or self-care (01) ==
LOC: ER 20:51
DX: R10.13 Epigastric pain (principal); R11.2 Nausea with vomiting, unspecified; I12.0 Hypertensive chronic kidney disease with stage 5 chronic kidney disease or end stage renal disease; E11.22 Type 2 diabetes mellitus with diabetic chronic kidney disease; E11.65 Type 2 diabetes mellitus with hyperglycemia; N18.6 End stage renal disease; Z99.2 Dependence on renal dialysis; F41.9 Anxiety disorder, unspecified; F32.A Depression, unspecified; Z87.19 Personal history of other diseases of the digestive system
CPT/HCPCS: 36415; 80053; 82550; 83690; 84484; 84702; 85025; 93005; 99283; J1200